=== PATIENT | female | born 1980 | race Caucasian/White ===

== ENCOUNTER → 2018-02-05 08:14 | Outpatient (CLI) | payer OTHER, SELFPAY ==
--- NOTE | 2018-02-05 08:18 | US_ITS ---
US Abdomen RUQ (limited) INDICATION: RUQ PAIN COMPARISON: None TECHNIQUE: Ultrasonographic grayscale and limited Doppler investigation of the right upper quadrant FINDINGS: The liver demonstrates normal echogenicity and measures 12 cm. There is no evidence of intra-or extrahepatic biliary ductal dilatation. The common bile duct measures 2.5 mm. The gallbladder is unremarkable without evidence of gallstones, gallbladder wall thickening, or pericholecystic fluid. The gallbladder wall measures 2 mm. Ultrasonographic Gonzalez sign is negative. The views of the pancreas are limited. The right kidney measures 10 cm in length and demonstrates mild fullness of the renal collecting system. US/Abdomen Limited IMPRESSION: Right renal pelviectasis. Negative gallbladder. at 0107 Reported and signed by: Sugar Carlos MD Electronically Signed: Sugar Carlos MD at 0:05 EDT Tel , Service support ,
--- NOTE | 2018-02-05 08:18 | NM_ITS ---
CLINICAL: 37-year-old female with reported history of right upper quadrant abdominal pain. RADIONUCLIDE HEPATOBILIARY SCINTIGRAPHY COMPARISON: Abdominal ultrasound report 02/05/2018 FINDINGS: Following the intravenous administration of 5.3 mCi of 99m Tc Mebrofenin, hepatobiliary images reveal: 1. Relatively prompt and homogeneous radiopharmaceutical concentration is noted by a normal sized liver. No parenchymal defects are identified. 2. Gallbladder activity is identified at 10 minutes post radiopharmaceutical administration. 3. Small intestinal tract is observed at 15 minutes following tracer injection. 4. Washout of the radiopharmaceutical by the hepatic parenchyma appears qualitatively normal. The patient was administered a fatty meal (8 ounces BOOST). The post fatty meal ingestion gallbladder ejection fraction calculated at 34 minutes following fatty meal administration was noted to be 54.0 % (normal greater than 30%). Duodenal-gastric reflux is demonstrated following the administration of the fatty meal. NM/Hepatobilliary Imaging IMPRESSION: 1. A gallbladder ejection fraction calculated to be greater than 30% following the administration of an ingested fatty meal makes the probability of functional hepatobiliary disease (gallbladder and/or sphincter of Oddi dyskinesia) and/or organic hepatobiliary disease (chronic acalculous cholecystitis and/or cystic duct syndrome) to be low. (Gwen and Bahman, J Nucl Med 43: 1603, 2002). 2. There is scintigraphic evidence of post fatty meal duodenal gastric reflux as defined above. Electronically Signed: Trey Fung DO at 11:07 EDT Tel , Service support ,
== END ==
PROVIDERS: Family Provider Student in an Organized Health Care Education/Training Program; PCP Student in an Organized Health Care Education/Training Program; Visit Provider Student in an Organized Health Care Education/Training Program
DX: R10.11 Right upper quadrant pain (principal)
CPT/HCPCS: 76705; 78226; A9537

== ENCOUNTER → 2018-03-27 08:05 | Outpatient (CLI) | payer OTHER, SELFPAY ==
--- NOTE | 2018-03-27 08:08 | CT_ITS ---
STUDY: CT ABDOMEN AND PELVIS WITHOUT CONTRAST REASON FOR EXAM: Female, 37 years old. Right upper quadrant pain radiating to right flank. History of kidney stone, section, uterine ablation, tubal ligation. RADIATION DOSAGE (If Supplied By Facility): CTDIvol = ( 7.25 ) mGy, DLP = ( 344.29 ) mGycm TECHNIQUE: Transaxial images were obtained from the dome of the diaphragm to the symphysis pubis without oral contrast, and without intravenous contrast. Sagittal and coronal images were reconstructed. Individualized dose optimization techniques were used for this CT. COMPARISON: CT abdomen and pelvis June 26, 2009 (the report for this study is not available for review at the time of this dictation); right upper quadrant ultrasound and HIDA scan February 05, 2018. FINDINGS: The visualized lung bases are unremarkable. The visualized portions of the heart are within normal limits. Normal liver. Portal vein diameter is 11 mm. Normal gallbladder and extrahepatic biliary system. Normal spleen. Normal pancreas. Normal bilateral adrenal glands. Normal right kidney. There are nonobstructing small stones in calyces of the lower pole of the left kidney. No hydronephrosis Normal visualized stomach. Normal small intestine. Normal colon. The appendix is visualized and appears normal. Normal abdominal aorta. Normal inferior vena cava. There are a few nonspecific lymph nodes in the periaortic retroperitoneum. Normal urinary bladder. Normal visualized uterus. Metal clips at the uterine cornu consistent with history of prior tubal ligation. Normal visualized adnexa. Normal abdominal wall. There are chronic bilateral L5 pars defects, L5 spina bifida occulta, and a slight L5-S1 spondylolisthesis. Mild irregularity of the L5-S1 vertebral endplates and subtle degenerative change in the disc space. CT/Abdomen/Pelvis without Cont IMPRESSION: 1. Nonobstructing stones in the lower pole of the left kidney. No hydronephrosis. 2. The bowel is unremarkable without signs of obstruction. The appendix is normal. 3. Prior bilateral tubal ligation. The uterus and ovaries are otherwise unremarkable. 4. Chronic bilateral L5 pars defects, mild degenerative changes at L5-S1, and early grade 1 L5-S1 spondylolisthesis. Electronically Signed: Abel Avendano MD at 19:41 EDT , Service support ,
== END ==
PROVIDERS: Family Provider Student in an Organized Health Care Education/Training Program; PCP Student in an Organized Health Care Education/Training Program; Visit Provider Student in an Organized Health Care Education/Training Program
DX: R10.11 Right upper quadrant pain (principal); R11.0 Nausea
CPT/HCPCS: 74176

== ENCOUNTER → 2018-04-04 09:53 | Outpatient (CLI) | payer OTHER, SELFPAY ==
--- NOTE | 2018-04-04 09:56 | ECHOD_ITS ---
Reason For Study: MITRAL VALVE DISORDER Procedure This was a 2D Doppler, Color Flow transthoracic echocardiogram. Exam performed in department. Left Ventricle Normal size and thickness. The estimated ejection fraction is 65 %. Normal diastology for age. No regional wall motion abnormalities noted. Right Ventricle Normal size and thickness. Normal systolic function. Atria Normal left atrium. Normal right atrium. Normal atrial septum. Mitral Valve The mitral valve is structurally normal. No prolapse or stenosis seen. Tricuspid Valve Normal tricuspid valve. Trivial tricuspid valve insufficiency. Right ventricular systolic pressure estimated to be 22 mmHg. Aortic Valve Normal aortic valve. Trisinus/trileaflet aortic valve. Pulmonic Valve Normal pulmonic valve. Great Vessels Normal aortic root. Normal arch. Normal inferior vena cava. Inferior vena cava collapse with sniff. Pericardium/Pleural No pericardial effusion. MMode/2D Measurements & Calculations LVIDd: 4.0 cm IVSd: 0.72 cm Ao root diam: 2.7 cm LVIDs: 2.3 cm LVPWd: 0.83 cm RVDd: 2.3 cm FS: 41.6 % LAV(MOD-bp): 29.2 ml EDV(MOD-sp4): 66.5 ml SV(MOD-sp4): 42.0 ml LAV(MOD-bp) Indexed: 18.4 ml/m2 ESV(MOD-sp4): 24.6 ml LAV(MOD-sp2): 31.9 ml EF(MOD-sp4): 63.1 % LAV(MOD-sp4): 27.4 ml LA A4 area: 12.1 cm2 RA A4 area: 9.3 cm2 Time Measurements MV dec time: 0.25 sec Doppler Measurements & Calculations MV E max gilberto: 83.7 cm/sec Lat Peak E' Gilberto: 15.5 cm/sec Med Peak E' Gilberto: 11.6 cm/sec MV A max gilberto: 65.3 cm/sec E/E' lat: 5.4 E/E' med: 7.2 MV E/A: 1.3 Ao V2 max: 123.7 cm/sec LV V1 max: 115.3 cm/sec PA V2 max: 123.0 cm/sec Ao max P.1 mmHg LV V1 max P.3 mmHg TR max gilberto: 206.5 cm/sec TR max P.1 mmHg Interpretation Summary The estimated ejection fraction is 65 %. Normal diastology for age. Trivial tricuspid valve insufficiency. Right ventricular systolic pressure estimated to be 22 mmHg. There is no comparison study available. Ordering Physician: To Valle Referring Physician: To Valle Performed By: Lisette Long RDCS
== END ==
PROVIDERS: Family Provider Student in an Organized Health Care Education/Training Program; PCP Student in an Organized Health Care Education/Training Program; Visit Provider Student in an Organized Health Care Education/Training Program
DX: I05.9 Rheumatic mitral valve disease, unspecified (principal)
CPT/HCPCS: 93306

== ENCOUNTER → 2018-04-30 16:14 | Outpatient (CLI) | payer OTHER, SELFPAY ==
--- NOTE | 2018-04-30 16:14 | DT_ITS ---
This patient was seen during an EMR downtime April 23, 2018 - April 30, 2018. This patient may have a combination of paper and electronic documentation or all paper documentation. All documentation is viewable within the e-chart portion of [facility] for each patient visit.
[2018-04-30 16:36] LABS: Color, Urine Yellow (Yellow); Glucose, Dipstick Normal (Normal); Ketone-Dipstick Negative (Negative); Leukocyte Esterase-Dipstick 25 /ul (Negative); Nitrite-Dipstick Negative (Negative); Occult Blood-Urine Negative /ul (Negative); Protein-Dipstick Negative (Negative); Urine Bilirubin Dipstick Negative (Negative); Urine Clarity Clear (Clear); Urine Urobilinogen Normal (Normal)
== END ==
PROVIDERS: Family Provider Student in an Organized Health Care Education/Training Program; PCP Student in an Organized Health Care Education/Training Program; Visit Provider Physician Assistant
DX: R30.0 Dysuria (principal)
CPT/HCPCS: 81002; 87086

== ENCOUNTER 2018-05-01 16:03 | Emergency (ER) | payer OTHER, SELFPAY ==
[2018-05-01 16:04] VITALS: BP 123/85; PULSE 97; RESP 18; TEMP 36.7; O2SAT 97; BMI 26.9
--- NOTE | 2018-05-01 16:23 | CT_ITS ---
STUDY: CT ABDOMEN AND PELVIS WITH CONTRAST REASON FOR EXAM: Female, 37 years old. Right-sided abdominal pain RADIATION DOSAGE (If Supplied By Facility): CTDIvol = ( 13.15 ) mGy, DLP = ( 632.86 ) mGycm TECHNIQUE: Transaxial images were obtained from the dome of the diaphragm to the symphysis pubis without oral contrast. 100 ml of Isovue 300 contrast was administered. Sagittal and coronal images were reconstructed. Individualized dose optimization techniques were used for this CT. COMPARISON: March 27, 2018 FINDINGS: There is minor atelectasis within the dependent portion of the lungs. The visualized portions of the heart are within normal limits. Normal liver. Normal gallbladder and extrahepatic biliary system. Normal spleen. Normal pancreas. Normal bilateral adrenal glands. Normal right kidney. There are 2 tiny nonobstructing calculi. No evidence for hydronephrosis or ureteral calculus. Normal visualized stomach. Normal small intestine. Normal colon. The appendix is visualized and appears normal. Normal abdominal aorta. Normal inferior vena cava. Normal retroperitoneum. Postop changes status post tubal ligation. Uterus is within the midline mildly depressing the dome of the bladder which is incompletely distended. There is a small right ovarian cyst and fluid in the cul-de-sac which may be due to recent ovulation. Normal abdominal wall. Normal osseous structures. CT/Abdomen/Pelvis WITH Contrast IMPRESSION: Left nephrolithiasis without evidence for hydronephrosis or ureteral calculus. Normal appendix Small right ovarian cyst with fluid in the cul-de-sac which may be on the basis of recent ovulation Status post bilateral tubal ligation. Electronically Signed: Zaki Ruth MD at 19:02 EDT , Service support ,
--- NOTE | 2018-05-01 16:24 | ED.VISSUMM ---
- ER Visit Summary Date of Service: 05/01/18 Chief Complaint: Abdominal pain History of Present Illness: The patient is a 37 F presenting with abdominal pain which started on Monday. She states this is suprapubic pain which is a burning sensation, continuous pain. She went to urgent care yesterday and was diagnosed with a UTI based on trace leukocytes in her urine. She was started on Macrobid. She denies dysuria, frequency, urgency. She denies back pain. She has history of IBS and kidney stones. She has had a decreased appetite today. Physical Examination: Vitals are stable. Patient is afebrile. Alert no acute distress. HEENT exam is unremarkable. Neck is supple. Lungs are clear and equal bilaterally. Heart is regular rate and rhythm. Abdomen is soft RLQ and suprapubic tenderness, no guarding or rebound. Extremities are unremarkable. Skin is warm and dry. No focal neurologic deficit. Remainder of exam is unremarkable. Emergency Department Course and Treatment: Patient given IV fluids, Zofran. CBC, chemistries unremarkable. Urinalysis is unremarkable. HCG negative. CT abdomen pelvis shows left nephrolithiasis without evidence for hydronephrosis or ureteral calculus. Normal appendix. Small right ovarian cyst with fluid in the cul-de-sac which may be on the basis of recent ovulation. Status post bilateral tubal ligation. She was given Toradol IV. Pelvic ultrasound shows small intrauterine fibroids. Small bilateral ovarian cysts 2 of which are complex on the right ovary possibly representing involuting cysts or intracystic hemorrhage. Patient is resting comfortably in the emergency department. She is advised to follow-up with Dr. Malachi Butcher her HALL SUPERVISOR. Advised return to ED for worsening complaints. Disposition: Discharge home Impression: Abdominal pain, ovarian cyst This note was generated with [email or web address] dictation software. It may contain incorrect words, spelling, and punctuation that were not noted in review of the chart prior to signing ED Disposition - Plan for ED Patient: Chief Complaint: Abd Pain Referrals: To Longoria DO [Primary Care Provider] -
--- NOTE | 2018-05-01 16:27 | ED.DCSUM_ITS ---
- ER Visit Summary Date of Service: 05/01/18 Chief Complaint: Abdominal pain History of Present Illness: The patient is a 37 F presenting with abdominal pain which started on Monday. She states this is suprapubic pain which is a burning sensation, continuous pain. She went to urgent care yesterday and was diagnosed with a UTI based on trace leukocytes in her urine. She was started on Macrobid. She denies dysuria, frequency, urgency. She denies back pain. She has history of IBS and kidney stones. She has had a decreased appetite today. Physical Examination: Vitals are stable. Patient is afebrile. Alert no acute distress. HEENT exam is unremarkable. Neck is supple. Lungs are clear and equal bilaterally. Heart is regular rate and rhythm. Abdomen is soft RLQ and suprapubic tenderness, no guarding or rebound. Extremities are unremarkable. Skin is warm and dry. No focal neurologic deficit. Remainder of exam is unremarkable. Emergency Department Course and Treatment: Patient given IV fluids, Zofran. CBC , chemistries unremarkable. Urinalysis is unremarkable. HCG negative. CT abdomen pelvis shows left nephrolithiasis without evidence for hydronephrosis or ureteral calculus. Normal appendix. Small right ovarian cyst with fluid in the cul-de-sac which may be on the basis of recent ovulation. Status post bilateral tubal ligation. She was given Toradol IV. Pelvic ultrasound shows small intrauterine fibroids. Small bilateral ovarian cysts 2 of which are complex on the right ovary possibly representing involuting cysts or intracystic hemorrhage. Patient is resting comfortably in the emergency department. She is advised to follow-up with Dr. Malachi Butcher her APPLIED STATISTICIAN. Advised return to ED for worsening complaints. Disposition: Discharge home Impression: Abdominal pain, ovarian cyst This note was generated with [employer]ib[employer] dictation software. It may contain incorrect words, spelling, and punctuation that were not noted in review of the chart prior to signing ED Disposition - Plan for ED Patient: Chief Complaint: Abd Pain Referrals: To Longoria DO [Primary Care Provider] -
[2018-05-01] MEDS: Ondansetron 4 MG/2 ML Vial IV (16:39)
[2018-05-01 16:47] LABS: Bacteria 0 SEEN /hpf (None Seen); Mucous, Urine 0 SEEN /hpf (<or=2+); Red Blood Cells-Urine 0 SEEN /hpf (0-5); Squamous Epithelial Cells - UA 0 SEEN /hpf (5-10); White Blood Cells 0 SEEN /hpf (0-5)
[2018-05-01 17:16] LABS: Color, Urine Yellow (Yellow); Glucose, Dipstick Normal (Normal); Ketone-Dipstick Negative (Negative); Leukocyte Esterase-Dipstick Negative /ul (Negative); Nitrite-Dipstick Negative (Negative); Occult Blood-Urine Negative /ul (Negative); Protein-Dipstick Negative (Negative); Specific Gravity, Urine 1.015 (1.002-1.030); Urine Bilirubin Dipstick Negative (Negative); Urine Clarity Sl. Cloudy (Clear); Urine Urobilinogen Normal (Normal)
[2018-05-01 17:18] LABS: ALB/GLOB Ratio 1.2 RATIO (0.9-2.4); AST(SGOT) 15 U/L (15-37); Alanine Aminotransfer ALT/SGPT 18 U/L (13-56); Albumin, Serum 4.2 g/dL (3.2-5.0); Alkaline Phosphatase 80 U/L (45-117); Anion Gap 3 (5-15); BUN 13 mg/dL (7-18); BUN/Creat Ratio 17.9 RATIO (10-20); Calcium,Total 8.8 mg/dL (8.5-10.1); Chloride 106 mmol/L (98-107); Creatinine, Serum 0.73 mg/dL (0.55-1.02); EST Glomerular Filtration Rate 94 mL/min (>60); Est Glom Filt Rate - Afr Amer 114 mL/min (>60); Globulin 3.4 g/dL (2.2-4.2); Glucose 86 mg/dL (74-106); Potassium 3.6 mmol/L (3.5-5.1); Protein, Total 7.6 g/dL (6.4-8.2); Sodium Level 138 mmol/L (136-145)
[2018-05-01 17:20] LABS: Internal QC Validated? YES +Cl - CLEAR BKGD; Pregnancy, Urine Negative Negative
[2018-05-01 17:26] LABS: Absolute Lymphocyte Count 2.23 X10^3/ul (0.83-4.51); Absolute Neutrophil Count 3.1 X10^3/uL (2.0-7.7); Basophil# 0.03 X10^3/uL; Basophil% 0.5 % (0-1); Eosinophil# 0.17 X10^3/uL; Eosinophils% 2.9 % (0-5); Hematocrit 39.5 % (37-47); Lymphocyte # 2.23 X10^3/ul (4.0); Lymphocyte % 37.5 % (19-41); Mean Corp Hgb Conc 32.9 g/gl (32-36); Mean Corpuscular Hgb 30.2 pg (27.0-32.0); Mean Corpuscular Volume 91.9 fL (81-99); Mean Platelet Vol. 11.5 fl (6.2-12.0); Monocyte# 0.44 X10^3/uL; Monocyte% 7.4 % (0-10); Neutrophil # 3.07 X10^3/uL (2.7-7.7); Neutrophil % 51.7 % (47-70); Platelet Count 216 K/mm3 (150-450); RBC Distribution Width CV 12.9 % (11.6-14.6); RBC Distribution Width SD 42.5 fl (35.1-43.9); White Blood Count 5.9 K/mm3 (4.4-11.0)
[2018-05-01 17:28] LABS: POSITIVE COUNT NO; POSITIVE DIFFERENTIAL NO; POSITIVE MORPHOLOGY NO
[2018-05-01 17:41] LABS: Amorphous Sediment 2+
[2018-05-01 18:03] VITALS: RESP 16
[2018-05-01] MEDS: Ketorolac 30 MG/ML Syringe IV (18:41)
--- NOTE | 2018-05-01 19:45 | US_ITS ---
STUDY: ULTRASOUND TRANSVAGINAL CLINICAL: Female, 37 years old. Lower pelvic pain TECHNIQUE: Transvaginal and transabdominal COMPARISON: CT scan on May 01, 2018 FINDINGS: Normal uterine size measuring 8.1 x 4.7 x 3.7 cm in maximal craniocaudal dimension. There are 2 fibroids measuring 1 x 0.8 x 0.7 cm and 0.7 x 0.8 x 0.5 cm Normal endometrial thickness measuring 13 mm. There are no endometrial masses, and there is no fluid in the endometrial cavity. Normal uterine cervix. Normal right ovary, measuring 3.3 x 2.8 x 2.1 cm. There is a simple cyst measuring 1.7 x 1.8 x 1.4 cm. There is a small complex cyst measuring 1.4 x 1.4 x 1 cm and 1.1 x 1.1 x 0.8 cm Normal left ovary, measuring 2.2 x 1.8 x 1.4 cm. Small cyst measuring 1 x 1 x 0.8 cm There is no free fluid in the pelvis. Polycystic ovary disease: No. US/Transvaginal Non- IMPRESSION: Small intrauterine fibroids. Small bilateral ovarian cysts 2 of which are complex on the right ovary possibly representing involuting cysts or intracystic hemorrhage. Electronically Signed: Zaki Ruth MD at 20:47 EDT , Service support ,
[2018-05-01 20:25] VITALS: BP 125/77; PULSE 65; RESP 14; O2SAT 98
--- NOTE | 2018-05-01 21:01 | ED.DEP ---
ED Disposition - Plan for ED Patient: Chief Complaint: Abd Pain Instructions: ED Cyst Ovarian Referrals: To Longoria DO [Primary Care Provider] - Brianna Garrison MD [STAFF PHYSICIAN] -
[2018-05-01 21:24] VITALS: BP 109/75; RESP 17
--- NOTE | 2018-05-01 21:25 | ED.RN ---
IV DC'ED, CATHETER INTACT, SMALL GAUZE DRESSING PLACED. DISCHARGE INSTRUCTIONS GIVEN TO AND REVIEWED WITH PATIENT, PATIENT DENIES QUESTIONS OR CONCERNS AND VOICES UNDERSTANDING OF DISCHARGE INSTRUCTIONS. PT AMBULATES OUT OF ROOM WITHOUT DIFFICULTY.
== END 2018-05-01 21:26 | disposition home or self-care (01) ==
LOC: ED 16:27
PROVIDERS: Emergency Provider Emergency Medicine; Family Provider Student in an Organized Health Care Education/Training Program; PCP Student in an Organized Health Care Education/Training Program
DX: R10.30 Lower abdominal pain, unspecified (principal); N83.202 Unspecified ovarian cyst, left side; N83.201 Unspecified ovarian cyst, right side; N20.0 Calculus of kidney; D25.9 Leiomyoma of uterus, unspecified; K58.9 Irritable bowel syndrome, unspecified; K21.9 Gastro-esophageal reflux disease without esophagitis; Z87.440 Personal history of urinary (tract) infections; Z87.442 Personal history of urinary calculi; Z79.899 Other long term (current) drug therapy
CPT/HCPCS: 74177; 76830; 80053; 81001; 81025; 85025; 93976; 96361; 96374; 96375; 99283; J7040; Q9967; A4216; J2405

== ENCOUNTER → 2018-08-29 12:09 | Outpatient (CLI) | payer OTHER, SELFPAY ==
--- NOTE | 2018-08-29 12:14 | US_ITS ---
STUDY: ULTRASOUND OF THE FEMALE PELVIS - COMPLETE REASON FOR EXAM: Female, 37 years old. Pelvic pain LMP: 08/20/2018 TECHNIQUE: Transabdominal and Transvaginal TECHNICAL QUALITY: Adequate. COMPARISON: None. FINDINGS: The uterus is anteverted and is in a midline position. The uterus measures 8.1 x 4.7 x 3.8 cm. Normal uterine cervix. The endometrium measures 4.6 mm in thickness, and is hyperechoic. There is no demonstrated endometrial mass. There is a fibroid measuring 8 mm. I.U.D. - The patient does not have an I.U.D. The right ovary is visualized. The right ovary measures 2.6 x 1.6 x 1.2 cm. There is no right ovarian cyst or ovarian mass. There is no visualized right adnexal mass or complex lesion. There is normal arterial and normal venous vascularity. The left ovary is visualized. The left ovary measures 2.2 x 1.9 x 1.3 cm. There is no left ovarian cyst or ovarian mass. There is no visualized left adnexal mass or complex lesion. There is normal arterial and normal venous vascularity. There is minimal fluid in the cul-de-sac. US/Transvaginal Non- IMPRESSION: There is an 8mm uterine fibroid. There is NO evidence of ovarian torsion or mass. Electronically Signed: Shane Patel MD at 7:20 EDT , Service support ,
--- NOTE | 2018-08-29 12:14 | US_ITS ---
STUDY: ULTRASOUND OF THE FEMALE PELVIS - COMPLETE REASON FOR EXAM: Female, 37 years old. Pelvic pain LMP: 08/20/2018 TECHNIQUE: Transabdominal and Transvaginal TECHNICAL QUALITY: Adequate. COMPARISON: None. FINDINGS: The uterus is anteverted and is in a midline position. The uterus measures 8.1 x 4.7 x 3.8 cm. Normal uterine cervix. The endometrium measures 4.6 mm in thickness, and is hyperechoic. There is no demonstrated endometrial mass. There is a fibroid measuring 8 mm. I.U.D. - The patient does not have an I.U.D. The right ovary is visualized. The right ovary measures 2.6 x 1.6 x 1.2 cm. There is no right ovarian cyst or ovarian mass. There is no visualized right adnexal mass or complex lesion. There is normal arterial and normal venous vascularity. The left ovary is visualized. The left ovary measures 2.2 x 1.9 x 1.3 cm. There is no left ovarian cyst or ovarian mass. There is no visualized left adnexal mass or complex lesion. There is normal arterial and normal venous vascularity. There is minimal fluid in the cul-de-sac. US/Pelvic (Non ) IMPRESSION: There is an 8mm uterine fibroid. There is NO evidence of ovarian torsion or mass. Electronically Signed: Shane Patel MD at 7:20 EDT , Service support ,
== END ==
PROVIDERS: Family Provider Student in an Organized Health Care Education/Training Program; PCP Student in an Organized Health Care Education/Training Program; Referring Provider Nurse Practitioner Women's Health; Visit Provider Nurse Practitioner Women's Health
DX: R10.2 Pelvic and perineal pain (principal); N83.209 Unspecified ovarian cyst, unspecified side
CPT/HCPCS: 76830; 76856; 93976

== ENCOUNTER → 2018-09-13 07:16 | Outpatient (CLI) | payer OTHER, SELFPAY ==
--- NOTE | 2018-09-13 07:18 | BI_ITS ---
MAMMOGRAPHY - BILATERAL SCREENING REASON FOR EXAM: Female, 37 years old. Routine annual screening examination. PERTINENT HISTORY: Non-contributory. Prior left needle biopsy. TECHNIQUE: Digital bilateral breast jackie (3D mammographic acquisition) in the CC and MLO projections. 2-D mediolateral oblique (MLO) and craniocaudad (CC) views of both breasts were obtained. CAD: Full Field Digital Mammography with Computer Added Detection was performed. COMPARISON: Comparison is made with prior study dated September 11, 2017 and September 14, 2012. FINDINGS: Breast Composition: There are scattered areas of fibroglandular density. There are no dominant masses or suspicious calcifications. A tissue clip marker is seen in the retroareolar region of the left breast. Stable appearance of the small bilateral axillary lymph nodes. No other significant abnormalities are identified. There has been no significant change since the prior study. BI/SCREENING MAMM (CAD), BILAT IMPRESSION: Stable bilateral screening mammogram. Yearly follow-up mammogram recommended. (A) ASSESSMENT CATEGORY: BIRADS Category 2: Benign. A letter regarding these results will be sent to the patient by the facility within 30 days. Approximately 10% of breast cancers are not detected by mammography. A normal mammogram should not delay biopsy of a clinically suspicious abnormality. [id number] Electronically Signed: Nabil Talley MD at 8:34 EDT Tel [phone], Service support ,
== END ==
PROVIDERS: Family Provider Student in an Organized Health Care Education/Training Program; PCP Student in an Organized Health Care Education/Training Program; Visit Provider Obstetrics & Gynecology
DX: Z12.31 Encounter for screening mammogram for malignant neoplasm of breast (principal)
CPT/HCPCS: 77063; 77067

== ENCOUNTER → 2019-06-11 | Outpatient (CLI) | payer OTHER, SELFPAY ==
[2019-05-15 13:56] VITALS: BMI 26.9
[2019-06-11 09:13] LABS: Hemoglobin A1c 5.1 % (4.2-6.3)
[2019-06-11 09:22] LABS: ALB/GLOB Ratio 1.3 RATIO (0.9-2.4); AST(SGOT) 16 U/L (15-37); Alanine Aminotransfer ALT/SGPT 20 U/L (13-56); Albumin, Serum 4.3 g/dL (3.2-5.0); Alkaline Phosphatase 84 U/L (45-117); Anion Gap 9 (5-15); BUN 17 mg/dL (7-18); BUN/Creat Ratio 20.5 RATIO (10-20); Chloride 104 mmol/L (98-107); Cholesterol 181 mg/dL (200); Creatinine, Serum 0.83 mg/dL (0.55-1.02); EST Glomerular Filtration Rate 81 mL/min (>60); Est Glom Filt Rate - Afr Amer 97 mL/min (>60); Globulin 3.3 g/dL (2.2-4.2); Glucose 83 mg/dL (74-106); High Density Lipoprotein 57 mg/dL; Potassium 3.5 mmol/L (3.5-5.1); Protein, Total 7.6 g/dL (6.4-8.2); Sodium Level 140 mmol/L (136-145); T4 Free Direct 1.32 ng/dL (0.76-1.46); Thyroid Stim Hormone (TSH) 0.99 uIU/mL (0.358-3.74); Triglycerides 83 mg/dL; Very Low Density Lipoprotein 17 mg/dL (5-40)
[2019-06-11 10:16] LABS: T3 Total - Triiodothyronine 0.96 ng/mL (0.6-1.81); Vitamin D,25 Hydroxy 28.2 ng/mL (29.95-100.01)
== END | disposition home or self-care (01) ==
LOC: LAB 08:16
PROVIDERS: Family Provider Student in an Organized Health Care Education/Training Program; PCP Student in an Organized Health Care Education/Training Program; Referring Provider Registered Nurse; Visit Provider Registered Nurse
DX: Z00.00 Encounter for general adult medical examination without abnormal findings (principal)
CPT/HCPCS: 36415; 80053; 80061; 82306; 83036; 84439; 84443; 84480

== ENCOUNTER 2019-09-02 06:57 | Emergency (ER) | payer OTHER, SELFPAY ==
[2019-05-15 13:56] VITALS: BMI 26.9
[2019-09-02 06:58] VITALS: BP 129/73; PULSE 97; RESP 18; TEMP 37.3; O2SAT 99; BMI 27.5
--- NOTE | 2019-09-02 07:07 | CT_ITS ---
STUDY: CT ABDOMEN AND PELVIS WITH CONTRAST REASON FOR EXAM: Female, 38 years old. Right lower quadrant pain. Tubal ligation. History of stones. Ovarian cyst. RADIATION DOSAGE (If Supplied By Facility): CTDIvol = ( 14.12 ) mGy, DLP = ( 620.39 ) mGycm TECHNIQUE: Transaxial images were obtained from the dome of the diaphragm to the symphysis pubis without oral contrast. IV Isovue 300 100mL was administered. Sagittal and coronal images were reconstructed. Individualized dose optimization techniques were used for this CT. COMPARISON: May 01, 2018. FINDINGS: Lung bases: No acute process. Heart: Unremarkable. Liver: Punctate hepatic hypodensities low attenuation region too small to characterize (axial images 33 and 34 series 2). Portal vein patent. Gallbladder/biliary ducts: Unremarkable. Pancreas: Unremarkable. Spleen: Unremarkable. Adrenal glands: Unremarkable. Kidneys/ureters/bladder: Stable bilateral renal hypodense lesions (axial image 42 series 2) measuring 1.3 cm. Punctate nonobstructing left renal stones. Nondilated ureters. Normal urinary bladder. Uterus/adnexa/prostate: Tubal ligation. Minimally distended endometrial canal. Small left hyperdense cystic adnexa measuring 2.1 cm (axial image 86 series 2). Large bowel/small bowel: Mild constipation. No acute small bowel or large bowel process. Appendix: None visualized. No secondary signs of appendicitis. Gastroesophageal junction/stomach: Unremarkable. Retroperitoneum/lymph nodes: No intra-abdominal free air. No ascites. No pathologically enlarged lymph nodes. Vascular: Unremarkable. Osseous structures: L5 bilateral pars defects. Minimal grade 1 spondylolisthesis at L5-S1. Degenerative changes. No acute process. Subcutaneous/soft tissues: Small fat-containing umbilical hernia. Mild rectus diastases. No acute process. CT/Abdomen/Pelvis W IV Cont ONLY IMPRESSION: No acute intraabdominal/pelvic findings Small left hyperdense cystic adnexa (statistically hemorrhagic/corpus luteal cyst) Stable bilateral hypodense renal lesions (statistically cysts; follow-up nonemergent ultrasound) Stable chronic/nonemergent findings, as above Electronically Signed: Kendrick Ceja DO at 8:36 EDT Tel , Service support ,
--- NOTE | 2019-09-02 07:08 | ED.VISSUMM ---
- ER Visit Summary Date of Service: 09/02/19 Chief Complaint: Right lower quadrant abdominal pain History of Present Illness: The patient is a 38 F who has right lower quadrant abdominal pain. Is been ongoing for 10 days. She feels like it is a vibration in the right lower quadrant. Sitting makes it worse. She is taken nothing for this at home. She has a history of fibroid uterus, ovarian cyst and kidney stones but this feels different. She has had a uterine ablation and C-sections previously. Denies any fevers. No dysuria, hematuria or frequency. Has nausea or vomiting. Physical Examination: Vital signs reviewed. HEENT exam unremarkable. Heart is regular rate and rhythm without murmurs. Lungs are clear to auscultation. Abdomen is soft and is tender in the lower portion of the right lower quadrant. There is no pelvic tenderness. No guarding or rebound tenderness. Extremities reveal no edema. Skin exam normal. Neurologic exam normal. Test Results: Laboratory studies are normal. CAT scan of the abdomen pelvis reveals a hyperdense cystic lesion on the left which is likely hemorrhagic or corpus luteal cyst. Otherwise nothing else acute Emergency Department Course and Treatment: Patient initially declined pain medications but then requested Toradol. She was given this. Her labs and imaging studies reveal nothing acute. I am unclear as to why is causing her pain. I feel she is safe for discharge to follow-up with her HARDWOOD FALLER and her PCP. She does have Bentyl that she can take at home. Treatment Plan: [] Disposition: Discharge Impression: Abdominal pain This note was generated with [email or web address] dictation software. It may contain incorrect words, spelling, and punctuation that were not noted in review of the chart prior to signing ED Disposition - Plan for ED Patient: Referrals: To Longoria DO [Primary Care Provider] -
[2019-09-02 07:38] LABS: Mucous, Urine 0 SEEN /hpf (<or=2+); Red Blood Cells-Urine 0 SEEN /hpf (0-5); White Blood Cells 0 SEEN /hpf (0-5)
[2019-09-02 07:41] LABS: Absolute Lymphocyte Count 2.19 X10^3/uL (0.83-4.51); Absolute Neutrophil Count 3.9 X10^3/uL (2.0-7.7); Basophil# 0.05 X10^3/uL; Basophil% 0.7 % (0-1); Eosinophil# 0.19 X10^3/uL; Eosinophils% 2.8 % (0-5); Hematocrit 42.2 % (37-47); Hemoglobin 13.4 g/dL (12.0-15.0); Lymphocyte # 2.19 X10^3/ul (4.0); Lymphocyte % 31.9 % (19-41); Mean Corp Hgb Conc 31.8 g/dL (32-36); Mean Corpuscular Hgb 29.2 pg (27.0-32.0); Mean Corpuscular Volume 91.9 fL (81-99); Monocyte# 0.51 X10^3/uL; Monocyte% 7.4 % (0-10); NRBC Flagged by Analyzer 0 % (0-5); Neutrophil # 3.91 X10^3/uL (2.7-7.7); Neutrophil % 56.9 % (47-70); Platelet Count 222 K/mm3 (150-450); RBC Distribution Width CV 13.2 % (11.6-14.6); RBC Distribution Width SD 44.8 fl (35.1-43.9); Red Blood Count 4.59 M/mm3 (4.2-5.4); White Blood Count 6.9 K/mm3 (4.4-11.0)
[2019-09-02 07:42] LABS: Color, Urine Yellow (Yellow); Glucose, Dipstick Normal (Normal); Ketone-Dipstick Negative (Negative); Leukocyte Esterase-Dipstick Negative /ul (Negative); Nitrite-Dipstick Negative (Negative); Occult Blood-Urine Negative /ul (Negative); Protein-Dipstick Negative (Negative); Urine Bilirubin Dipstick Negative (Negative); Urine Clarity Sl. Cloudy (Clear); Urine Urobilinogen Normal (Normal)
[2019-09-02 07:45] LABS: Internal QC Validated? YES +Cl - CLEAR BKGD; Pregnancy, Urine Negative Negative
[2019-09-02 07:49] LABS: Bacteria 1+ /hpf (None Seen); Squamous Epithelial Cells - UA 0-5 SEEN /hpf (5-10)
[2019-09-02 07:58] LABS: ALB/GLOB Ratio 1.3 RATIO (0.9-2.4); AST(SGOT) 15 U/L (15-37); Alanine Aminotransfer ALT/SGPT 21 U/L (13-56); Albumin, Serum 4.4 g/dL (3.2-5.0); Alkaline Phosphatase 92 U/L (45-117); Anion Gap 6 (5-15); BUN 17 mg/dL (7-18); BUN/Creat Ratio 19.9 RATIO (10-20); Calcium,Total 8.9 mg/dL (8.5-10.1); Chloride 108 mmol/L (98-107); Creatinine, Serum 0.85 mg/dL (0.55-1.02); EST Glomerular Filtration Rate 78 mL/min (>60); Est Glom Filt Rate - Afr Amer 94 mL/min (>60); Estimated Creatinine Clearance 63.19 ml/min; Globulin 3.3 g/dL (2.2-4.2); Glucose 87 mg/dL (74-106); Potassium 3.6 mmol/L (3.5-5.1); Protein, Total 7.7 g/dL (6.4-8.2); Sodium Level 140 mmol/L (136-145)
[2019-09-02] MEDS: Ketorolac 30 MG/ML Syringe IV (08:18)
--- NOTE | 2019-09-02 08:40 | ED.DEP ---
ED Disposition - Plan for ED Patient: Disposition: Home or Assisted Living Instructions: ABDOMINAL PAIN, Unknown Cause, (Female) Referrals: To Longoria DO [Primary Care Provider] -
== END 2019-09-02 08:52 | disposition home or self-care (01) ==
PROVIDERS: Emergency Provider Emergency Medicine; Family Provider Student in an Organized Health Care Education/Training Program; PCP Student in an Organized Health Care Education/Training Program
DX: R10.31 Right lower quadrant pain (principal); N83.8 Other noninflammatory disorders of ovary, fallopian tube and broad ligament; D25.9 Leiomyoma of uterus, unspecified; N83.209 Unspecified ovarian cyst, unspecified side; Z87.442 Personal history of urinary calculi
CPT/HCPCS: 74177; 80053; 81001; 81025; 85025; 96374; 99283; Q9967; A4216

== ENCOUNTER → 2019-09-16 15:49 | Outpatient (CLI) | payer OTHER, SELFPAY ==
[2019-09-02 06:58] VITALS: BMI 27.5
--- NOTE | 2019-09-16 15:51 | BI_ITS ---
MAMMOGRAPHY - BILATERAL SCREENING REASON FOR EXAM: Female, 38 years old. Routine annual screening examination. PERTINENT HISTORY: Grandmother with breast cancer. Prior left breast biopsy. TECHNIQUE: Digital bilateral breast andreas (3D mammographic acquisition) in the CC and MLO projections. 2-D mediolateral oblique (MLO) and craniocaudad (CC) views of both breasts were obtained. CAD: Full Field Digital Mammography with Computer Added Detection was performed. COMPARISON: Comparison is made with prior study dated September 13, 2018 and September 11, 2017. FINDINGS: Breast Composition: The breasts are heterogeneously dense, which may obscure small masses. There are no dominant masses or suspicious calcifications. A tissue clip marker is once again seen in the retroareolar region of the left breast within a small nodular density presently measuring 8.9 mm. Stable appearance of the bilateral axillary lymph nodes. No other significant abnormalities are identified. There has been no significant change since the prior study. BI/SCREEN MAMM (CAD) W/ANDREAS BILAT IMPRESSION: Stable bilateral screening mammogram. Yearly follow-up mammogram recommended. (A) ASSESSMENT CATEGORY: BIRADS Category 2: Benign. A letter regarding these results will be sent to the patient by the facility within 30 days. Approximately 10% of breast cancers are not detected by mammography. A normal mammogram should not delay biopsy of a clinically suspicious abnormality. [id number] Electronically Signed: Nabil Talley, at 8:45 EDT , Service support ,
== END ==
PROVIDERS: Family Provider Student in an Organized Health Care Education/Training Program; PCP Student in an Organized Health Care Education/Training Program; Referring Provider Nurse Practitioner Women's Health; Visit Provider Nurse Practitioner Women's Health
DX: Z12.31 Encounter for screening mammogram for malignant neoplasm of breast (principal)
CPT/HCPCS: 77063; 77067

== ENCOUNTER → 2019-10-15 16:09 | Outpatient (CLI) | payer OTHER, SELFPAY | PROVIDERS: Family Provider Student in an Organized Health Care Education/Training Program; PCP Student in an Organized Health Care Education/Training Program; Referring Provider Otolaryngology Otolaryngology/Facial Plastic Surgery; Visit Provider Otolaryngology Otolaryngology/Facial Plastic Surgery | DX: J32.9 Chronic sinusitis, unspecified (principal) | CPT/HCPCS: 87070; 87077; 87186; 87205 ==

== ENCOUNTER → 2019-11-14 13:45 | Outpatient (CLI) | payer OTHER, SELFPAY ==
--- NOTE | 2019-11-14 13:49 | US_ITS ---
STUDY: RENAL ULTRASOUND - COMPLETE REASON FOR EXAM: Female, 39 years old. Right lower quadrant pain. TECHNIQUE: Ultrasound evaluation of the kidneys was performed with real-time and static cotter-scale imaging. COMPARISON: CT September 02, 2019 FINDINGS: RIGHT KIDNEY: Normal location of the right kidney, which is normal in size. The right kidney measures 9.5 cm. There is a normal cortex of the right kidney. The renal cortex measures 1.2 cm. There is 1.0 cm cyst. There are no right renal calculi. There is no right hydronephrosis. DISTAL RIGHT URETER: There is non-visualization of the distal right ureter. There is no demonstrated right ureterovesical junction calculus. There is no demonstrated right ureteral jet. LEFT KIDNEY: Normal location of the left kidney, which is normal in size. The left kidney measures 10.4 cm. There is a normal cortex of the left kidney. The renal cortex measures 1.2 cm. There is 1.5 cm cyst. There are no left renal calculi. There is no left hydronephrosis. DISTAL LEFT URETER: There is non-visualization of the distal left ureter. There is no demonstrated left ureterovesical junction calculus. There is no demonstrated left ureteral jet. BLADDER: The distended urinary bladder has a volume of 330 ml. There is a normal wall thickness of the distended urinary bladder. There is no demonstrated mass within the urinary bladder. There are no demonstrated bladder calculi. US/Kidney and Bladder IMPRESSION: Small renal cysts. No hydronephrosis. Electronically Signed: Stew Doyle MD at 16:18 EST , Service support ,
--- NOTE | 2019-11-14 13:49 | US_ITS ---
STUDY: ULTRASOUND OF THE FEMALE PELVIS - COMPLETE REASON FOR EXAM: Female, 39 years old. PELVIC PAIN WORSE ON RIGHT LMP: October 26, 2019 TECHNIQUE: Transabdominal and Transvaginal TECHNICAL QUALITY: Adequate. COMPARISON: August 29, 2018 FINDINGS: The uterus is anteverted and is in a midline position. The uterus measures 8.9 x 4.4 x 4.1 cm. There is a Nabothian cyst of the cervix. The endometrium measures 6 mm in thickness, and is heterogeneous (striated). There is no demonstrated endometrial mass. There is no demonstrated myometrial mass. I.U.D. - The patient does not have an I.U.D. The right ovary is visualized. The right ovary measures 2.9 x 2.8 x 2.0 cm. There are multiple follicles of the right ovary without a dominant cyst. There is no visualized right adnexal mass or complex lesion. There is normal arterial and normal venous vascularity. The left ovary is visualized. The left ovary measures 2.6 x 1.8 x 1.5 cm. There is no left ovarian cyst or ovarian mass. There is no visualized left adnexal mass or complex lesion. There is normal arterial and normal venous vascularity. There is no fluid in the cul-de-sac. The pre void volume of the bladder was 361 ml. The post void volume of the bladder was 0 ml. US/Pelvic (Non ) IMPRESSION: Normal female pelvis. Adnexal follicles. Electronically Signed: Stew Doyle MD at 16:26 EST , Service support ,
--- NOTE | 2019-11-14 13:50 | US_ITS ---
STUDY: ULTRASOUND OF THE FEMALE PELVIS - COMPLETE REASON FOR EXAM: Female, 39 years old. PELVIC PAIN WORSE ON RIGHT LMP: October 26, 2019 TECHNIQUE: Transabdominal and Transvaginal TECHNICAL QUALITY: Adequate. COMPARISON: August 29, 2018 FINDINGS: The uterus is anteverted and is in a midline position. The uterus measures 8.9 x 4.4 x 4.1 cm. There is a Nabothian cyst of the cervix. The endometrium measures 6 mm in thickness, and is heterogeneous (striated). There is no demonstrated endometrial mass. There is no demonstrated myometrial mass. I.U.D. - The patient does not have an I.U.D. The right ovary is visualized. The right ovary measures 2.9 x 2.8 x 2.0 cm. There are multiple follicles of the right ovary without a dominant cyst. There is no visualized right adnexal mass or complex lesion. There is normal arterial and normal venous vascularity. The left ovary is visualized. The left ovary measures 2.6 x 1.8 x 1.5 cm. There is no left ovarian cyst or ovarian mass. There is no visualized left adnexal mass or complex lesion. There is normal arterial and normal venous vascularity. There is no fluid in the cul-de-sac. The pre void volume of the bladder was 361 ml. The post void volume of the bladder was 0 ml. US/Transvaginal Non- IMPRESSION: Normal female pelvis. Adnexal follicles. Electronically Signed: Stew Doyle MD at 16:23 EST , Service support ,
== END ==
PROVIDERS: Family Provider Student in an Organized Health Care Education/Training Program; PCP Student in an Organized Health Care Education/Training Program; Referring Provider Registered Nurse; Visit Provider Registered Nurse
DX: N28.1 Cyst of kidney, acquired (principal); N94.9 Unspecified condition associated with female genital organs and menstrual cycle; R10.9 Unspecified abdominal pain
CPT/HCPCS: 76770; 76830; 76856; 93976

== ENCOUNTER 2020-03-21 11:07 | Emergency (ER) | payer OTHER, SELFPAY ==
[2020-02-10 16:14] VITALS: BMI 27.5
[2020-03-21 11:07] VITALS: BP 149/91; PULSE 124; RESP 17; TEMP 38.1; O2SAT 98; BMI 28.5
--- NOTE | 2020-03-21 11:17 | ED.RN ---
pt straight back room 8.
--- NOTE | 2020-03-21 11:27 | RAD_ITS ---
STUDY: X-RAY CHEST REASON FOR EXAM: Female, 39 years old. Positive covid test, cough TECHNIQUE: Frontal view COMPARISON: August 15, 2017 FINDINGS: The lungs are expanded. There is a right basilar lateral infiltrate. Normal size heart. Normal mediastinum and beatris. Normal visualized pulmonary arteries. Normal visualized aortic arch and descending thoracic aorta. Normal visualized thoracic spine. Normal visualized ribs, clavicles, and shoulders. There is no demonstrated abnormality of the visualized soft tissue structures of the upper abdomen. RAD/Chest 1 View (Portable) IMPRESSION: There is a right basilar lateral infiltrate. Electronically Signed: Narinder Yanez DO at 12:09 EDT Tel [phone], Service support ,
--- NOTE | 2020-03-21 11:27 | EKG12_ITS ---
Test Reason : SOB Blood Pressure : / mmHG Vent. Rate : 128 BPM Atrial Rate : 128 BPM P-R Int : 124 ms QRS Dur : 084 ms QT Int : 298 ms P-R-T Axes : 035 057 009 degrees QTc Int : 435 ms Sinus tachycardia Otherwise normal ECG Confirmed by LAURA JORDAN, BEKA ([id number]), film and video editor LILIYA MARES ([id number]) on 03/24/2020 10:52:53 AM Referred By: MIKAYLA/DEMOND Confirmed By:BEKA SANCHEZ MD
--- NOTE | 2020-03-21 11:28 | ED.VIS.GEN ---
History of Present Illness Chief Complaint: Shortness of Breath Informant: Patient Onset: Days - 4 days Context: Gradual Onset Current Severity: Moderate Maximum Severity: Moderate Narrative: Patient presents with 4-day history of fever, cough, body aches. She had a Covid test sent on and received a phone call today that it is positive. She presents secondary to increased shortness of breath and cough. She does have a history of asthma but has not noted a lot of wheezing. She has lost smell and taste. She states she is trying to drink but not really eating anything. - Past Medical History (1) Asthma Status: Chronic (2) Kidney stones Status: Resolved Past Medical History - Allergies and Home Meds Allergies/Adverse Reactions: Allergies cephalexin monohydrate [From Keflex] Allergy (Verified 03/21/20 11:13) Rash clarithromycin [From Biaxin] Allergy (Verified 03/21/20 11:13) Rash metronidazole [From Flagyl] Allergy (Verified 03/21/20 11:13) Rash minocycline Allergy (Verified 03/21/20 11:13) Rash Penicillins Allergy (Verified 03/21/20 11:13) VISHNU MCCALL citalopram hydrobromide [From Celexa] Adverse Reaction (Verified 03/21/20 11:13) Nausea/Vom/Diarrhea ENTEX Adverse Reaction (Uncoded 03/21/20 11:13) TACHYCARDIA Primary Care Physician: To Longoria DO [Primary Care Provider] - Prior records reviewed: Yes Lives: With Family Smoking Status: Never smoker Review of Systems General: Reports: Chills, Fever Eyes: Denies: Visual changes - bilaterally ENT: Reports: - - Decreased smell and taste Cardiovascular: Reports: Chest pain - Chest pressure after coughing fits Respiratory: Reports: Dyspnea, Cough Gastrointestinal: Denies: Abdominal pain, Nausea, Vomiting Musculoskeletal: Reports: Myalgias. Denies: Swelling Skin: Denies: Rash Neurological: Denies: Headache Hematologic: Denies: Easy bruising, Easy bleeding Allergy: Denies: Uticaria Physical Exam Vital Signs/Narrative: Vital Signs Temp Pulse Resp BP Pulse Ox 03/21/20 11:07 100.5 F H 124 H 17 149/91 H 98 Inital Vital Signs reviewed: Yes General: Well nourished, Well developed Head: Normocephalic ENT: Dry mucous membranes Neck: Supple Cardiovascular: Tachycardia Respiratory: No distress, CTA bilaterally Abdomen: Soft, Nontender, Hypoactive bowel sounds Extremities: Nontender Skin: Normal color Neurological: Alert, Oriented x3 Psychological: Normal affect Diagnostic/Tx/Re-eval Impressions Chest X-Ray 03/21/20 11:27 IMPRESSION: There is a right basilar lateral infiltrate. Electronically Signed: Narinder Yanez at 12:09 EDT Tel [phone], Service support , 03/21/20 11:27 Chest 1 View (Portable) [RAD] Stat Laboratory Results 03/21/20 03/21/20 11:20 11:20 WBC 3.1 L RBC 4.51 Hgb 13.2 Hct 40.5 MCV 89.8 MCH 29.3 MCHC 32.6 RDW Std Deviation 43.0 RDW Coeff of Ilya 13.0 Plt Count 93 L MPV 12.2 H Immature Gran % (Auto) 0.300 Neut % (Auto) 69.7 Lymph % (Auto) 23.9 [place] % (Auto) 5.2 Eos % (Auto) 0.6 Baso % (Auto) 0.3 Absolute Neuts (auto) 2.2 Absolute Lymphs (auto) 0.74 L Nucleated RBC % 0 Platelet Estimate MOD DEC Sodium 138 Potassium 3.1 L Chloride 107 Carbon Dioxide 24.0 Anion Gap 7 BUN 14 Creatinine 0.84 Estim Creat Clear Calc 63.31 Est GFR (MDRD) Af Amer 96 Est GFR (MDRD) Non-Af 79 BUN/Creatinine Ratio 16.7 Glucose 113 H Calcium 8.7 - EKG Initial EKG Interpretation: Sinus Tachycardia - Sinus tach at 128 - Medical Decision Making Patient was given IV fluids at 100 cc/h. Patient was given p.o. Tylenol and albuterol MDI. On repeat evaluation heart rate is 106. Pulse ox is 96 to 98% on room air. Respiratory rate is around 20. I did discuss the case with infectious disease. They are not currently recommending Plaquenil or Zithromax. They are recommending just supportive care at home. Patient will be given prescription for Hycodan cough syrup. ED Disposition - Plan for ED Patient: Disposition: Home or Assisted Living Diagnosis: COVID-19 Instructions: ED Viral Syndrome Prescriptions: Hydrocodone Bit/Homatropine [Hycodan Syrup] 5 ml PO Q4H PRN PRN #100 mls PRN Reason: Cough Referrals: To Longoria DO [Primary Care Provider] -
[2020-03-21] MEDS: 0.9% Normal Saline 1,000 ML 100 ML IV (11:30)
[2020-03-21] MEDS: Acetaminophen 500 MG Tablet 1000 MG PO (11:31)
[2020-03-21 11:39] LABS: Absolute Lymphocyte Count 0.74 X10^3/uL (0.83-4.51); Absolute Neutrophil Count 2.2 X10^3/uL (2.0-7.7); Basophil# 0.01 X10^3/uL; Basophil% 0.3 % (0-1); Eosinophil# 0.02 X10^3/uL; Eosinophils% 0.6 % (0-5); Hematocrit 40.5 % (37-47); Hemoglobin 13.2 g/dL (12.0-15.0); Lymphocyte # 0.74 X10^3/ul (4.0); Lymphocyte % 23.9 % (19-41); Mean Corp Hgb Conc 32.6 g/dL (32-36); Mean Corpuscular Hgb 29.3 pg (27.0-32.0); Mean Corpuscular Volume 89.8 fL (81-99); Mean Platelet Vol. 12.2 fl (6.2-12.0); Monocyte# 0.16 X10^3/uL; Monocyte% 5.2 % (0-10); NRBC Flagged by Analyzer 0 % (0-5); Neutrophil # 2.15 X10^3/uL (2.7-7.7); Neutrophil % 69.7 % (47-70); POSITIVE COUNT YES; Platelet Count 93 K/mm3 (150-450); Red Blood Count 4.51 M/mm3 (4.2-5.4); White Blood Count 3.1 K/mm3 (4.4-11.0)
[2020-03-21 11:47] LABS: Anion Gap 7 (5-15); BUN 14 mg/dL (7-18); BUN/Creat Ratio 16.7 RATIO (10-20); Calcium,Total 8.7 mg/dL (8.5-10.1); Chloride 107 mmol/L (98-107); Creatinine, Serum 0.84 mg/dL (0.55-1.02); EST Glomerular Filtration Rate 79 mL/min (>60); Est Glom Filt Rate - Afr Amer 96 mL/min (>60); Estimated Creatinine Clearance 63.31 ml/min; Glucose 113 mg/dL (74-106); Potassium 3.1 mmol/L (3.5-5.1); Sodium Level 138 mmol/L (136-145)
[2020-03-21 11:51] LABS: Differential Indicated SCAN CRITERIA MET
[2020-03-21] MEDS: INHALER, ASSIST DEVICES 1 EACH SPACER INHALATION (12:00)
[2020-03-21 12:17] LABS: Platelet Estimate MOD DEC (ADEQ)
[2020-03-21 13:12] VITALS: BP 126/80; PULSE 103; RESP 21; O2SAT 96
--- NOTE | 2020-03-21 13:12 | NURSING ---
DR JUSTIN CALLED, DR MUNOZ IS FITNESS/WELLNESS DIRECTOR
[2020-03-21 13:47] VITALS: BP 113/82; PULSE 101; RESP 18; O2SAT 98
== END 2020-03-21 14:26 | disposition home or self-care (01) ==
PROVIDERS: Emergency Provider Emergency Medicine; PCP Student in an Organized Health Care Education/Training Program
DX: U07.1 COVID-19 (principal); R06.02 Shortness of breath; J45.909 Unspecified asthma, uncomplicated; Z87.442 Personal history of urinary calculi
CPT/HCPCS: 71045; 80048; 85025; 93005; 96360; 96361; 99285

== ENCOUNTER 2020-03-24 05:14 | Emergency (ER) | payer OTHER, SELFPAY ==
[2020-03-24 05:15] VITALS: BP 123/82; PULSE 123; RESP 23; TEMP 36.8; O2SAT 96; O2SAT 97; BMI 28.3
--- NOTE | 2020-03-24 05:20 | ED.DCSUM_ITS ---
History of Present Illness Chief Complaint: Shortness of Breath Detail of Chief Complaint: Coronavirus Informant: Patient Onset: Days - 6 days Context: Gradual Onset Current Severity: Moderate Maximum Severity: Moderate Narrative: Patient presents with continued body aches and shortness of breath with cough after being diagnosed with coronavirus last weekend. She developed symptoms on the afternoon of March 18 and got test results back on March 21. Patient was seen in the ER on that day. Patient states despite Hycodan she continues to have uncontrolled cough. She continues to have fever with generalized body aches and shortness of breath. She last took Tylenol and Excedrin approximately 1 hour prior to evaluation. - Past Medical History (1) Asthma Status: Chronic (2) Kidney stones Status: Resolved Past Medical History - Allergies and Home Meds Allergies/Adverse Reactions: Allergies cephalexin monohydrate [From Keflex] Allergy (Verified 03/24/20 05:21) Rash clarithromycin [From Biaxin] Allergy (Verified 03/24/20 05:21) Rash metronidazole [From Flagyl] Allergy (Verified 03/24/20 05:21) Rash minocycline Allergy (Verified 03/24/20 05:21) Rash Penicillins Allergy (Verified 03/24/20 05:21) VISHNU MOSQUEDA'S citalopram hydrobromide [From Celexa] Adverse Reaction (Verified 03/24/20 05:21) Nausea/Vom/Diarrhea ENTEX Adverse Reaction (Uncoded 03/24/20 05:21) TACHYCARDIA Primary Care Physician: To Longoria DO [Primary Care Provider] - Prior records reviewed: Yes Lives: With Family Smoking Status: Never smoker Review of Systems General: Reports: Fever, Sweats Eyes: Denies: Visual changes - bilaterally ENT: Denies: Bilateral ear pain Cardiovascular: Reports: Heart racing Respiratory: Reports: Dyspnea, Cough Gastrointestinal: Reports: - - Decreased smell and taste. Denies: Vomiting Genitourinary: Reports: - - Decreased urine output. Denies: Dysuria Musculoskeletal: Reports: Myalgias Skin: Denies: Rash Neurological: Reports: Headache Hematologic: Denies: Easy bruising, Easy bleeding Allergy: Denies: Uticaria Physical Exam Vital Signs/Narrative: Vital Signs Temp Pulse Resp BP Pulse Ox 03/24/20 05:15 101.2 F H 123 H 23 H 123/82 H 96 Inital Vital Signs reviewed: Yes General: Well nourished, Well developed Head: Normocephalic ENT: Dry mucous membranes Neck: Supple Cardiovascular: Tachycardia Respiratory: No distress, CTA bilaterally Abdomen: Soft, Nontender, Hypoactive bowel sounds Skin: Normal color Neurological: Alert, Oriented x3 Psychological: Normal affect Diagnostic/Tx/Re-eval Impressions Chest X-Ray 03/24/20 05:55 IMPRESSION: Slight interval worsening of bilateral pneumonia, pattern suspicious for viral pneumonia. Electronically Signed: Nahun Burgos, at 6:23 EDT Tel , Service support , 03/24/20 05:55 Chest 1 View (Portable) [RAD] Stat Laboratory Results 03/24/20 03/24/20 03/24/20 05:25 05:25 05:25 WBC 2.2 L RBC 4.27 Hgb 12.5 Hct 37.9 MCV 88.8 MCH 29.3 MCHC 33.0 RDW Std Deviation 42.4 RDW Coeff of Ilya 13.1 Plt Count 89 L MPV 12.0 Immature Gran % (Auto) 0.500 Neut % (Auto) 71.4 H Lymph % (Auto) 22.1 [place] % (Auto) 5.0 Eos % (Auto) 0.5 Baso % (Auto) 0.5 Absolute Neuts (auto) 1.6 L Absolute Lymphs (auto) 0.49 L Nucleated RBC % 0 Sodium 135 L Potassium 3.4 L Chloride 105 Carbon Dioxide 24.0 Anion Gap 6 BUN 13 Creatinine 0.74 Estim Creat Clear Calc 71.86 Est GFR (MDRD) Af Amer 111 Est GFR (MDRD) Non-Af 92 BUN/Creatinine Ratio 17.6 Glucose 106 Lactic Acid 0.8 Calcium 8.4 L - Medical Decision Making Patient was given a 500 cc fluid bolus along with ibuprofen. Repeat heart rate is in the 90s. Oxygen saturation is maintained at 97% throughout her ED stay on room air. Patient was given a dose of fentanyl to help with body aches. Robitussin-AC is ordered to try to help control her cough. Test results are discussed with her. At this time patient is not hypoxic and there is no different treatment in the hospital as opposed to being discharged home. She does have a pulse ox at home and is closely monitoring her oxygen level. Patient's primary care physician started her on Levaquin yesterday for potential superimposed bacterial pneumonia. ED Disposition - Plan for ED Patient: Disposition: Home or Assisted Living Diagnosis: Coronavirus infection Instructions: ED Viral Syndrome Prescriptions: Fentanyl 12 mcg TRANSDERM. Q72H #2 patch.[id number] Guaifenesin/Codeine [Robitussin AC] 5 ml PO Q6H PRN PRN #100 udc PRN Reason: Cough Referrals: To Longoria DO [Primary Care Provider] -
[2020-03-24 05:23] VITALS: BP 123/82; PULSE 119; RESP 18; TEMP 37; O2SAT 97
[2020-03-24] MEDS: Ibuprofen 200 MG Tablet 400 MG PO (05:32)
[2020-03-24] MEDS: fentaNYL 100 MCG/2 ML Ampul 25 MCG IV (05:32)
[2020-03-24] MEDS: Ondansetron 4 MG/2 ML Vial IV (05:36)
[2020-03-24 05:41] LABS: Absolute Lymphocyte Count 0.49 X10^3/uL (0.83-4.51); Absolute Neutrophil Count 1.6 X10^3/uL (2.0-7.7); Basophil# 0.01 X10^3/uL; Basophil% 0.5 % (0-1); Eosinophil# 0.01 X10^3/uL; Eosinophils% 0.5 % (0-5); Hematocrit 37.9 % (37-47); Hemoglobin 12.5 g/dL (12.0-15.0); Lymphocyte # 0.49 X10^3/ul (4.0); Lymphocyte % 22.1 % (19-41); Mean Corpuscular Hgb 29.3 pg (27.0-32.0); Mean Corpuscular Volume 88.8 fL (81-99); Monocyte# 0.11 X10^3/uL; NRBC Flagged by Analyzer 0 % (0-5); Neutrophil # 1.59 X10^3/uL (2.7-7.7); Neutrophil % 71.4 % (47-70); POSITIVE COUNT YES; POSITIVE DIFFERENTIAL YES; POSITIVE MORPHOLOGY YES; Platelet Count 89 K/mm3 (150-450); RBC Distribution Width CV 13.1 % (11.6-14.6); RBC Distribution Width SD 42.4 fl (35.1-43.9); Red Blood Count 4.27 M/mm3 (4.2-5.4); White Blood Count 2.2 K/mm3 (4.4-11.0)
[2020-03-24 05:54] LABS: Anion Gap 6 (5-15); BUN 13 mg/dL (7-18); BUN/Creat Ratio 17.6 RATIO (10-20); Calcium,Total 8.4 mg/dL (8.5-10.1); Chloride 105 mmol/L (98-107); Creatinine, Serum 0.74 mg/dL (0.55-1.02); EST Glomerular Filtration Rate 92 mL/min (>60); Est Glom Filt Rate - Afr Amer 111 mL/min (>60); Estimated Creatinine Clearance 71.86 ml/min; Glucose 106 mg/dL (74-106); Potassium 3.4 mmol/L (3.5-5.1); Sodium Level 135 mmol/L (136-145)
--- NOTE | 2020-03-24 05:55 | RAD_ITS ---
STUDY: X-RAY CHEST REASON FOR EXAM: Female, 39 years old. Shortness of breath, cough, fever. Positive COVID. TECHNIQUE: AP portable upright COMPARISON: 03/21/2020 CXR FINDINGS: Patchy opacities in the periphery of the mid lungs bilaterally have slightly worsened. No apparent pneumothorax or pleural effusion. Heart size normal. No concerning mediastinal or hilar lesions. No acute osseous abnormality. No evidence of free air under the diaphragm. RAD/Chest 1 View (Portable) IMPRESSION: Slight interval worsening of bilateral pneumonia, pattern suspicious for viral pneumonia. Electronically Signed: Nahun Burgos, at 6:23 EDT Tel , Service support ,
[2020-03-24 05:58] LABS: Lactic Acid 0.8 mmol/L (0.4-1.9)
[2020-03-24 06:20] VITALS: BP 137/83; PULSE 105; RESP 19; TEMP 37.3; O2SAT 95
[2020-03-24 06:36] LABS: Differential Indicated SCAN CRITERIA MET
[2020-03-24 07:34] VITALS: BP 120/88; PULSE 101; RESP 18; TEMP 36.8; O2SAT 96
[2020-03-24 07:39] LABS: Differential Comment SCANNED
[2020-03-24 07:40] LABS: Platelet Estimate MOD DEC (ADEQ)
[2020-03-24] MEDS: guaiFENesin/Codeine 5 ML UDC 10 ML PO (07:50)
== END 2020-03-24 08:56 | disposition home or self-care (01) ==
PROVIDERS: Emergency Provider Emergency Medicine; PCP Student in an Organized Health Care Education/Training Program
DX: U07.1 COVID-19 (principal); J12.89 Other viral pneumonia; J45.909 Unspecified asthma, uncomplicated; Z87.442 Personal history of urinary calculi
CPT/HCPCS: 36415; 71045; 80048; 83605; 85025; 87040; 96361; 96374; 96375; 99285; J7030; J2405

== ENCOUNTER → 2020-04-16 09:35 | Outpatient (CLI) | payer OTHER, SELFPAY ==
[2020-03-24 05:15] VITALS: BMI 28.3
--- NOTE | 2020-04-16 09:51 | VDLE_ITS ---
Reason For Study: Covid 19 RIGHT LEFT GSV is normal. GSV is normal. CFV is compressible, spontaneous, phasic, CFV is compressible, spontaneous, phasic, competent and demonstrates normal competent, and demonstrates normal augmentation. augmentation. FV is compressible, spontaneous, phasic, FV is compressible, spontaneous, phasic, competent and demonstrates normal competent and demonstrates normal augmentation. augmentation. POP V is compressible, spontaneous, phasic, POP V is compressible, spontaneous, phasic, competent and demonstrates normal competent and demonstrates normal augmentation. augmentation. T/P Trunk is compressible. T/P Trunk is compressible. PTV is compressible. PTV is compressible. RT PerV is compressible. LT PerV is compressible. Procedure Exam performed in department. A preliminary report was called and/or faxed to [facility]. Interpretation Summary Deep veins of the lower extremities are bilaterally patent and compressible segmentally. There is no evidence of deep vein thrombosis on either side. Valvular competence appears intact within the proximal deep venous systems bilaterally. The great saphenous veins appear bilaterally patent and compressible segmentally. Ordering Physician: MARSHA TROTTER Referring Physician: To Longoria Performed By: Samreen Davis RVT
--- NOTE | 2020-04-16 10:20 | CT_ITS ---
STUDY: CTA CHEST REASON FOR EXAM: Female, 39 years old. COVID-19, recently hospitalized with COVID, home O2, worsening SOB since yesterday. Hx asthma. RADIATION DOSAGE (If Supplied By Facility): CTDIvol = ( 8.13 ) mGy, DLP = ( 249.43 ) mGycm TECHNIQUE: The examination was performed with the intravenous administration of 75mL Isovue 370. Post-processing of the angiographic images was performed, with multiplanar reformation and 3D reconstruction. Individualized dose optimization techniques were used for this CT. COMPARISON: None. FINDINGS: Normal enhancement of the main pulmonary artery and right and left pulmonary arteries. Normal enhancement of the bilateral peripheral pulmonary arteries. There is no demonstrated pulmonary embolism. Normal thoracic aorta and visualized great vessels. There is no demonstrated aortic dissection. Normal heart and pericardium. Normal mediastinum. Normal hilar regions. Normal visualized trachea and bronchi. The lungs are well expanded. There is evidence of a patchy infiltrates in the peripheral aspects of both upper lobes as well as in the lower lobes and right middle lobe. Normal pleura. Normal chest wall structures. Normal osseous structures. Normal visualized upper abdomen. CT/CTA Chest W/WO Contrast IMPRESSION: No evidence of pulmonary embolism. Bilateral pulmonary infiltrates in the upper lobes located in the peripheral aspects as well as infiltrates in both lower lobes as well as a mild degree of right middle lobe infiltrate. Electronically Signed: Nabil Talley, at 11:31 EDT , Service support ,
[2020-04-16 11:50] LABS: Absolute Lymphocyte Count 1.45 X10^3/uL (0.83-4.51); Basophil# 0.04 X10^3/uL; Basophil% 0.7 % (0-1); Eosinophil# 0.21 X10^3/uL; Eosinophils% 3.4 % (0-5); Hemoglobin 11.3 g/dL (12.0-15.0); Lymphocyte # 1.45 X10^3/ul (4.0); Lymphocyte % 23.6 % (19-41); Mean Corp Hgb Conc 30.5 g/dL (32-36); Mean Corpuscular Hgb 28.8 pg (27.0-32.0); Mean Corpuscular Volume 94.1 fL (81-99); Monocyte# 0.46 X10^3/uL; Monocyte% 7.5 % (0-10); NRBC Flagged by Analyzer 0 % (0-5); Neutrophil # 3.97 X10^3/uL (2.7-7.7); Neutrophil % 64.5 % (47-70); Platelet Count 283 K/mm3 (150-450); RBC Distribution Width CV 14.3 % (11.6-14.6); RBC Distribution Width SD 48.4 fl (35.1-43.9); Red Blood Count 3.93 M/mm3 (4.2-5.4); White Blood Count 6.2 K/mm3 (4.4-11.0)
[2020-04-16 12:03] LABS: D-Dimer Quantitative (DVT/PE) 0.36 FEU/ug/m (0.27-0.49)
[2020-04-16 12:15] LABS: Hemoglobin A1c 5.2 % (3.8-5.6)
[2020-04-16 12:16] LABS: ALB/GLOB Ratio 0.9 RATIO (0.9-2.4); AST(SGOT) 20 U/L (15-37); Alanine Aminotransfer ALT/SGPT 48 U/L (13-56); Albumin, Serum 3.3 g/dL (3.2-5.0); Alkaline Phosphatase 89 U/L (45-117); Anion Gap 5 (5-15); BUN 15 mg/dL (7-18); BUN/Creat Ratio 21.5 RATIO (10-20); Bilirubin, Direct 0.14 mg/dL (0.00-0.30); CRP < 2.90 mg/L (0.0-3.0); Calcium,Total 8.8 mg/dL (8.5-10.1); Chloride 105 mmol/L (98-107); Cholesterol 209 mg/dL (200); EST Glomerular Filtration Rate 98 mL/min (>60); Est Glom Filt Rate - Afr Amer 119 mL/min (>60); Ferritin 24 ng/mL (8-252); Globulin 3.6 g/dL (2.2-4.2); Glucose 69 mg/dL (74-106); High Density Lipoprotein 57 mg/dL; LDH 153 U/L (84-246); Protein, Total 6.9 g/dL (6.4-8.2); Sodium Level 137 mmol/L (136-145); Triglycerides 141 mg/dL; Very Low Density Lipoprotein 28 mg/dL (5-40)
[2020-04-16 12:21] LABS: Vitamin D,25 Hydroxy 35.5 ng/mL
[2020-04-17 09:29] LABS: SAR-COV-2 IGG ANTIBODY Positive (Negative); SAR-COV-2 IGM ANTIBODY Positive (Negative)
== END ==
PROVIDERS: PCP Student in an Organized Health Care Education/Training Program
DX: U07.1 COVID-19 (principal); E55.9 Vitamin D deficiency, unspecified; E78.5 Hyperlipidemia, unspecified; Z86.19 Personal history of other infectious and parasitic diseases; M79.89 Other specified soft tissue disorders
CPT/HCPCS: 36415; 71275; 80053; 80061; 82248; 82306; 82728; 83036; 83615; 85025; 85379; 86140; 86769; 93970; G2023; Q9967

== ENCOUNTER → 2020-05-11 10:45 | Outpatient (CLI) | payer OTHER, SELFPAY | PROVIDERS: PCP Student in an Organized Health Care Education/Training Program; Referring Provider Student in an Organized Health Care Education/Training Program; Visit Provider Student in an Organized Health Care Education/Training Program | DX: R00.2 Palpitations (principal) | CPT/HCPCS: 93225; 93226 ==

== ENCOUNTER → 2020-05-19 13:45 | Outpatient (CLI) | payer OTHER, SELFPAY ==
--- NOTE | 2020-05-19 13:50 | ECHOD_ITS ---
Reason For Study: Palps, tachy, SOB Procedure This was a 2D Doppler, Color Flow transthoracic echocardiogram. Exam performed in department. Left Ventricle Normal LV size. Left ventricular systolic function is normal. The estimated ejection fraction is 65 %. The global longitudinal strain = -19 % (normal). No evidence for diastolic dysfunction. No regional wall motion abnormalities noted. Right Ventricle Normal RV size. Normal systolic function. Atria Normal left atrium. Normal right atrium. No doppler evidence for ASD. Mitral Valve There is no mitral annular calcification. Normal mitral valve. Trivial mitral valve insufficiency. Tricuspid Valve Normal tricuspid valve. Trivial tricuspid valve insufficiency. Right ventricular systolic pressure estimated to be 22 mmHg. Aortic Valve Trisinus/trileaflet aortic valve. Normal aortic valve. Pulmonic Valve The pulmonic valve is not well visualized. Great Vessels Normal sized aortic root. Pericardium/Pleural No pericardial effusion. MMode/2D Measurements & Calculations LVIDd: 3.6 cm IVSd: 0.90 cm Ao root diam: 2.6 cm LVIDs: 1.8 cm LVPWd: 1.0 cm RVDd: 2.5 cm FS: 49.7 % LAV(MOD-bp): 38.8 ml LVAd ap4: 20.3 cm2 SV(MOD-sp4): 28.9 ml LAV(MOD-bp) Indexed: 24.1 ml/m2 EDV(MOD-sp4): 47.3 ml LAV(MOD-sp2): 38.5 ml EDV(sp4-el): 46.6 ml LAV(MOD-sp4): 32.9 ml LVAs ap4: 11.1 cm2 ESV(MOD-sp4): 18.4 ml ESV(sp4-el): 17.6 ml EF(MOD-sp4): 61.2 % EF(sp4-el): 62.3 % SV(sp4-el): 29.0 ml LA A4 area: 14.5 cm2 LA dimension(2D): 3.2 cm RA A4 area: 9.0 cm2 Doppler Measurements & Calculations MV E max gilberto: 60.1 cm/sec Lat Peak E' Gilberto: 12.8 cm/sec Med Peak E' Gilberto: 7.6 cm/sec MV A max gilberto: 79.3 cm/sec E/E' lat: 4.7 E/E' med: 7.9 MV E/A: 0.76 Ao V2 max: 140.9 cm/sec LV V1 max: 122.0 cm/sec PA V2 max: 131.8 cm/sec Ao max P.9 mmHg LV V1 max P.0 mmHg TR max gilberto: 217.1 cm/sec TR max P.9 mmHg Interpretation Summary Left ventricular systolic function is normal. The estimated ejection fraction is 65 %. The global longitudinal strain = -19 % (normal). Trivial mitral valve insufficiency. Trivial tricuspid valve insufficiency. Right ventricular systolic pressure estimated to be 22 mmHg. No evidence for diastolic dysfunction. Ordering Physician: To Longoria Referring Physician: To Longoria Performed By: Concepción Valdez RDCS
== END ==
PROVIDERS: PCP Student in an Organized Health Care Education/Training Program; Referring Provider Student in an Organized Health Care Education/Training Program; Visit Provider Student in an Organized Health Care Education/Training Program
DX: R00.2 Palpitations (principal)
CPT/HCPCS: 93306

== ENCOUNTER → 2020-06-26 09:22 | Outpatient (CLI) | payer OTHER, SELFPAY ==
[2020-06-16 10:47] VITALS: BMI 29.7
--- NOTE | 2020-06-26 09:25 | STE_ITS ---
Reason For Study: CHEST PAIN Stress Results Protocol: Stress Echocardiogram Maximum Predicted HR: 179 bpm Target HR: 152 bpm % Maximum Predicted HR: 100 % DurationHeart Rate Stage (mm:ss) (bpm) BP Comment BASELINE 85 114/78PO 100% SAVANNA[place] PROTOCOL- STAGE 1 3:00 146 140/60PO 99%, CP 2-3/10 SAVANNAH PROTOCOL- STAGE 2 3:00 162 144/68PO 99%, CP 4-5 SAVANNAH PROTOCOL- STAGE 3 1:00 179 / PO 98%, CP 5 RECOVERY 90 118/78PO 100%, CP SUBSIDED Stress Duration: 7:00 mm:ss Maximum Stress HR: 179 bpm Baseline Echocardiogram Findings The estimated ejection fraction is 65 %. Stress Echo Wall motion Data Resting WM Intermediate WM Stress WM Resting Wall Motion Wall Motion Stress No regional wall motion No regional wall motion abnormalities noted. abnormalities noted. EKG Data The baseline ECG displays normal sinus rhythm. The patient exercised according to the regular [place] protocol for a total duration of 7:01. The maximum heart rate attained was 179 beats per minute. This was 100% of maximum predicted heart rate. The patient exercised into stage 3 of the [place] protocol. During stress, there were no ST or T wave changes noted to suggest ischemia. No clinical angina was noted. No arrhythmias noted. Interpretation Summary The estimated ejection fraction is 65 %. Normal, adequate, treadmill echocardiogram. Negative for ischemia by EKG and echocardiographic criteria. No anginal symptoms noted. No arrhythmias noted. Below average exercise capacity for age. Test terminated due to attainment of target heart rate, fatigue and dyspnea. Final LVEF is 75%. No complications. Ordering Physician: Cornelius Tyler MD Referring Physician: Cornelius Tyler Performed By: Concepción Valdez RDCS
== END ==
PROVIDERS: PCP Student in an Organized Health Care Education/Training Program; Referring Provider Internal Medicine Cardiovascular Disease; Visit Provider Internal Medicine Cardiovascular Disease
DX: R00.0 Tachycardia, unspecified (principal); R07.9 Chest pain, unspecified; Z86.19 Personal history of other infectious and parasitic diseases
CPT/HCPCS: 93017; 93350

== ENCOUNTER → 2020-08-24 | Outpatient (CLI) | payer OTHER, SELFPAY ==
[2020-06-16 10:47] VITALS: BMI 29.7
[2020-08-24 13:05] LABS: D-Dimer Quantitative (DVT/PE) <= 0.27 FEU/ug/m (0.27-0.49)
== END | disposition home or self-care (01) ==
PROVIDERS: PCP Student in an Organized Health Care Education/Training Program; Visit Provider Registered Nurse
DX: R06.02 Shortness of breath (principal); R00.0 Tachycardia, unspecified
CPT/HCPCS: 84484; 85379

== ENCOUNTER → 2020-08-31 13:58 | Outpatient (CLI) | payer OTHER, SELFPAY ==
[2020-06-16 10:47] VITALS: BMI 29.7
[2020-08-31 17:41] LABS: CRP < 2.90 mg/L (0.0-3.0); Rheumatoid Factor < 10.0 IU/mL (<15)
[2020-09-02 14:08] LABS: RNP Ab <0.2 AI (0.0-0.9); Smith Ab <0.2 AI (0.0-0.9)
[2020-09-02 16:11] LABS: ANTINUCLEAR ANTIBODIES DIRECT Negative (Negative)
== END ==
PROVIDERS: PCP Student in an Organized Health Care Education/Training Program; Referring Provider Student in an Organized Health Care Education/Training Program; Visit Provider Student in an Organized Health Care Education/Training Program
DX: I42.8 Other cardiomyopathies (principal); I40.1 Isolated myocarditis; R00.0 Tachycardia, unspecified; R06.00 Dyspnea, unspecified; Z86.19 Personal history of other infectious and parasitic diseases; R06.02 Shortness of breath; R94.6 Abnormal results of thyroid function studies
CPT/HCPCS: 36415; 86038; 86140; 86235; 86431

== ENCOUNTER → 2020-09-21 15:53 | Outpatient (CLI) | payer OTHER, SELFPAY ==
[2020-06-16 10:47] VITALS: BMI 29.7
--- NOTE | 2020-09-21 15:54 | BI_ITS ---
MAMMOGRAPHY - BILATERAL SCREENING REASON FOR EXAM: Female, 39 years old. Routine annual screening examination. PERTINENT HISTORY: Grandmother with breast cancer. Remote left needle breast biopsy. TECHNIQUE: Digital bilateral breast andreas (3D mammographic acquisition) in the CC and MLO projections. 2-D mediolateral oblique (MLO) and craniocaudad (CC) views of both breasts were obtained. CAD: Full Field Digital Mammography with Computer Added Detection was performed. COMPARISON: Comparison is made with prior study dated 09/16/2019 and 09/13/2018. FINDINGS: Breast Composition: There are scattered areas of fibroglandular density. There are no dominant masses or suspicious calcifications. Stable small benign-appearing bilateral axillary lymph nodes. No other significant abnormalities are identified. There has been no significant change since the prior study. BI/SCREEN MAMM (CAD) W/ANDREAS BILAT IMPRESSION: Stable bilateral screening mammogram. Yearly follow-up mammogram recommended. (A) ASSESSMENT CATEGORY: BIRADS Category 2: Benign. A letter regarding these results will be sent to the patient by the facility within 30 days. Approximately 10% of breast cancers are not detected by mammography. A normal mammogram should not delay biopsy of a clinically suspicious abnormality. [id number] Electronically Signed: Nabil Talley, at 8:36 EST , Service support ,
== END ==
PROVIDERS: PCP Student in an Organized Health Care Education/Training Program; Referring Provider Student in an Organized Health Care Education/Training Program; Visit Provider Student in an Organized Health Care Education/Training Program
DX: Z12.31 Encounter for screening mammogram for malignant neoplasm of breast (principal)
CPT/HCPCS: 77063; 77067

== ENCOUNTER → 2020-09-22 09:40 | Outpatient (CLI) | payer OTHER, SELFPAY ==
[2020-06-16 10:47] VITALS: BMI 29.7
[2020-09-22 09:57] LABS: Hematocrit 39.9 % (37-47); Hemoglobin 12.5 g/dL (12.0-15.0); Mean Corp Hgb Conc 31.3 g/dL (32-36); Mean Corpuscular Hgb 29.3 pg (27.0-32.0); Mean Corpuscular Volume 93.7 fL (81-99); Mean Platelet Vol. 11.3 fl (6.2-12.0); Platelet Count 239 K/mm3 (150-450); RBC Distribution Width CV 13.6 % (11.6-14.6); RBC Distribution Width SD 46.5 fl (35.1-43.9); Red Blood Count 4.26 M/mm3 (4.2-5.4); White Blood Count 6.1 K/mm3 (4.4-11.0)
[2020-09-22 10:03] LABS: Internal QC Validated? YES +Cl - CLEAR BKGD; Pregnancy, Serum, hCG Quali. NEGATIVE Negative
--- NOTE | 2020-09-22 14:44 | TILTTABLE_ITS ---
- Staff Staff: Carly White, - - Coni Caldera - Summary Pre Test Resting HR: 72 - Alert and oriented: Warm and dry Pre Test Resting BP: 129/74 - Alert and oriented: Warm and dry Minimum Test HR: 77 - Alert and oriented: Warm and dry Maximum Test HR: 99 - Alert and oriented: Warm and dry Minimum Test BP: 111/77 - Alert and oriented: Warm and dry Maximum Test BP: 138/73 - Alert and oriented: Warm and dry Reason for Test Termination: Reached Maximum Test Time Physician Tilt Table Report - Patient's Physicians Primary Care Physician: To Longoria Interior Assemblies Installer: Luis Kang Indications/Diagnosis: Tachycardia Procedure Comments: The patient was brought to the tilt table laboratory and laid supine on the tilt table. The patient was alert and oriented and warm and dry. The baseline heart rate was 72 bpm with a baseline blood pressure 129/74 mmHg. The cardiac rhythm was normal sinus rhythm. The patient was placed in the 70 degree upright tilt table position for approximately 30 minutes. The patient remained alert and oriented and warm and dry. During that time the patient's minimal heart rate was 77 bpm and the patient's minimal blood pressure was 111/77 mmHg with a maximal heart rate of 99 bpm and a maximal blood pressure 138/73 mmHg. The cardiac rhythm remains normal sinus rhythm. The patient noted upon initiation of the upright position feeling transiently lightheaded, during the upright position she had transient chest pressure , and transient shortness of breath . The patient did not lose consciousness. The patient was returned to the supine position where she remained alert and oriented and warm and dry. Her concluding heart rate was 82 bpm with a concluding blood pressure 118/64 mmHg. Her cardiac rhythm remained normal sinus rhythm. She had no complaints. She was subsequently sitting up and taking oral intake. The patient was eventually released from the tilt table laboratory. Summary: 70 degree upright tilt table study considered negative for evidence of tilt table induced tachycardia/tachycardia dysrhythmias as well as considered negative for tilt table induced vasovagal/neurocardiogenic mediated near syncope/syncope. This note was generated using a voice recognition system and there may be incorrect words, spelling or punctuation that were not noted when reviewing the office note prior to saving.
[2020-09-22 14:50] VITALS: BP 111/77; BP 129/74; BP 138/73
[2020-09-29 06:30] LABS: HPV APTIMA, High Risk Negative (Negative)
== END ==
PROVIDERS: PCP Student in an Organized Health Care Education/Training Program; Referring Provider Student in an Organized Health Care Education/Training Program; Visit Provider Student in an Organized Health Care Education/Training Program
DX: R00.0 Tachycardia, unspecified (principal); R06.00 Dyspnea, unspecified; Z86.19 Personal history of other infectious and parasitic diseases; I42.8 Other cardiomyopathies; I40.1 Isolated myocarditis; R06.02 Shortness of breath; Z12.4 Encounter for screening for malignant neoplasm of cervix
CPT/HCPCS: 36415; 84703; 85027; 87624; 88175; 93660; J7040; A4216; G0145

== ENCOUNTER → 2020-09-30 08:19 | Outpatient (CLI) | payer OTHER, SELFPAY ==
[2020-09-22 15:35] VITALS: BMI 31.1
[2020-09-30 08:53] VITALS: BP 104/75; PULSE 65; RESP 16; TEMP 36.8; O2SAT 99; BMI 30.7
[2020-09-30] MEDS: Cosyntropin 0.25 MG Vial IM (09:54)
== END ==
PROVIDERS: PCP Student in an Organized Health Care Education/Training Program; Referring Provider Student in an Organized Health Care Education/Training Program; Visit Provider Student in an Organized Health Care Education/Training Program
DX: R00.0 Tachycardia, unspecified (principal); R06.00 Dyspnea, unspecified; Z86.19 Personal history of other infectious and parasitic diseases; R94.6 Abnormal results of thyroid function studies; K21.9 Gastro-esophageal reflux disease without esophagitis; R63.5 Abnormal weight gain
CPT/HCPCS: 36415; 82533; 96372; J0834

== ENCOUNTER 2020-10-23 06:15 | Day surgery (SDC) | payer OTHER, SELFPAY ==
[2020-09-30 13:48] VITALS: BMI 31.3
[2020-10-12 13:46] VITALS: BMI 30.9
--- NOTE | 2020-10-22 06:00 | HP_ITS ---
Intake Vital Signs 09/30/20 Height 4 ft 11 in 09/30/20 Weight: 155 lb 4 oz 09/30/20 BP 107/75 09/30/20 Blood Pressure Location Rt brachial 09/30/20 Position Sitting 09/30/20 Respiration 18 09/30/20 Pulse 79 09/30/20 Pulse Source Monitor 09/30/20 Temp 97.8 F 09/30/20 Temp Source Temporal 09/30/20 Pulse Oximetry (%) 100 09/30/20 Oxygen Delivery Method room air Intake Visit Reasons: Upper/Lower Scope Chief Complaint: Consult for EGD/C-Scope Document Control Clerk Required: No Is patient in pain?: No Allergies cephalexin monohydrate [From Keflex] Allergy (Verified 10/12/20 13:41) Rash clarithromycin [From Biaxin] Allergy (Verified 10/12/20 13:41) Rash metronidazole [From Flagyl] Allergy (Verified 10/12/20 13:41) Rash minocycline Allergy (Verified 10/12/20 13:41) Rash Penicillins Allergy (Verified 10/12/20 13:41) VISHNU RONDONS citalopram hydrobromide [From Celexa] Adverse Reaction (Verified 10/12/20 13:41) Nausea/Vom/Diarrhea ENTEX Adverse Reaction (Uncoded 09/22/20 15:30) TACHYCARDIA Medications alprazolam 0.25 mg tablet 0.25 mg PO DAILY PRN 05/15/19 [History Confirmed 10/12/20] Multivitamin with Minerals [Multiple Vitamin] 1 ea PO DAILY 09/02/19 [History Confirmed 10/12/20] esomeprazole magnesium 40 mg capsule,delayed release 40 mg PO DAILY 09/22/20 [History Confirmed 10/12/20] lactobacillus combination no.8 3 billion cell capsule 3,000 mmu cells PO DAILY 09/22/20 [History Confirmed 10/12/20] cetirizine 10 mg capsule 10 mg PO DAILY 09/30/20 [History Confirmed 10/12/20] metoprolol succinate 25 mg tablet,extended release 24 hr 25 mg PO DAILY #30 tab 10/06/20 [Rx Confirmed 10/12/20] cholecalciferol (vitamin D3) 50 mcg (2,000 unit) capsule 1,000 unit PO DAILY cap 10/12/20 [History Confirmed 10/12/20] lisinopril 2.5 mg tablet 2.5 mg PO DAILY #30 tab 10/12/20 [Rx Confirmed 10/12/20] vilazodone 10 mg tablet 10 mg PO DAILY tab 10/12/20 [History Confirmed 10/12/20] [facility] Medical History Menorrhagia with regular cycle (Acute) Tachycardia (Acute) History of severe acute respiratory syndrome coronavirus 2 (SARS-CoV-2) disease (Resolved) Asthma (Chronic) Kidney stones (Resolved) Shingles (Resolved) Depression with anxiety (Acute) Anemia (Acute) Constipation (Acute) Diarrhea (Acute) GERD (gastroesophageal reflux disease) (Acute) IBS (irritable colon syndrome) (Acute) Knee pain (Acute) Sleep apnea (Acute) h/o dillation and cutterage (Acute) neck and back pain (Acute) uterine ablation (Acute) uterine ablation (Acute) Surgical History History of breast biopsy (Acute) History of eye surgery (Acute) History of wisdom tooth extraction (Acute) Hx of tubal ligation (Acute) history cysto with stent insertion (Acute) History of (Chronic) Family History Grandmother Atrial fibrillation Hypertension Mother Hypertension Mitral valve prolapse Grandfather Cancer Esophageal cancer HPI HPI Surgical H&P: Yes HPI: ISAK QUEEN, is a 40 F who presents to the office today for Evaluation for endoscopy. Patient has had difficulty with diarrhea and abdominal cramping she has not noticed any blood but her stools have been green in nature. In addition she has had difficulty with GERD she has had an upper GI which showed a small sliding hiatal hernia with gastroesophageal reflux disease. She however has never had an upper scope. Patient states that she is always had irritable bowel disease. States that many times after she goes to a restaurant she has to stop and use the restroom prior to getting home. She is also been having some abdominal bloating. ROS General General: No weight change, appetite, fatigue, colon cancer, breast cancer or weakness HEENT HEENT: Yes eye surgery; no difficulty swallowing, eye injury, swollen glands or hoarseness Endo Endocrine: No thyroid disease, diabetes mellitus, thyroid cancer, Hair loss, heat intolerance or cold intolerance Skin Skin: No rash or changing moles Breast Breast: No left breast lump, right breast lump, nipple discharge, breast pain, abnormal mammogram, abnormal US or breast enlargement Musc Musculoskeletal: No back problems, arthritis, rheumatoid arthritis, gout or joint pain Cardio Cardiovascular: No murmur, pacemaker, heart disease, atrial fibrillation, high blood pressure, heart attack, heart stent, palpitations, shortness of breat with exertion or chest pain Additional Details: Tachycardia Psych Psychiatric: Yes depression and anxiety; no hearing voices Resp Respiratory: No shortness of breath, Yes sleep apnea, No cough, No COPD, No asthma, No emphysema, No wheezing Gastro Gastrointestinal: No abdominal pain, No nausea or vomiting, Yes diarrhea, Yes constipation, No blood in stool, Yes acid reflux, No hemorrhoids, No ulcers, No gallbladder problem, No black,tarry stools [place] Hematologic: No blood thinners, No blood disorders, No bleeding, Yes anemia, No blood clots Neuro Neurologic: No system reviewed and no additional complaints, except as docu, No as per HPI, No abnormal walking, No abnormal hearing, No abnormal movements, No abnormal speech, No behavioral changes, No burning sensations, No confusion, No seizure-like activity, No unsteadiness, No dizziness, No localized weakness, No frequent falls, No headache(s), No lack of coordination, No loss of vision, No memory loss, No numbness, No other visual disturbances, No radiating pain, No restless legs, No sensory deficit, No fainting, No tingling, No tremor(s), No weakness, No other Exam Const General: no acute distress, well developed, well hydrated Orientation: oriented to person, oriented to place, oriented to time [facility] Head: normocephalic, atraumatic Ears: external ears normal Mouth: moist mucous membranes Eyes Sclera: sclerae normal Pupils: normal by confrontation Neck Neck: no lymphadenopathy noted Neck mass: No Thyroid: thyroid normal, symmetrical Chest Chest palpation & inspection: normal inspection of the chest Breast Palpation: No nipple discharge Resp Effort & Inspection: normal respiratory effort Auscultation: clear to auscultation bilaterally Percussion: percussion normal Cardio Rate: regular rate Rhythm: regular rhythm Heart Sounds: no murmurs GI Palpation: soft, no hepatosplenomegaly, no masses, nontender Rectal Exam: other Other: Rectal exam deferred. Extrem General: normal to inspection, no clubbing, cyanosis or edema Assessment & Plan Problems 1. Diarrhea, unspecified type R19.7 2. Gastroesophageal reflux disease, unspecified whether esophagitis present K21.9 Plan I have discussed the above with the patient. I have offered the patient colonoscopy As well as an EGD for evaluation. I have explained the risks/benefits of the procedure and described the procedure. I have discussed the risks with the patient, including but not limited to: infection, bleeding, perforation of the GI tract requiring emergency surgery, inability to complete the procedure, injury to any internal organs, complications of anesthesia, etc. - the patient understands and agrees to proceed. I have answered all the patient's questions to the patient's satisfaction and the patient has no further questions. The patient has been given instructions for the colon cleansing preparation. We will be doing random colon biopsies. Medications Discontinued: metoprolol tartrate Discontinued Reason: Order Changed 25 mg PO DAILY Coding Level of Care Code Off vis,new,level 3 Diagnoses Diarrhea, unspecified type R19.7 ??Diarrhea type: unspecified type Gastroesophageal reflux disease, unspecified whether esophagitis present K21.9 ??Esophagitis presence: esophagitis presence not specified COVID (Procedure Consent) Procedure Criteria Procedure Criteria: Yes Elective The surgeon/proceduralist and patient have discussed in detail the risk of exposure to and/or potential harm posed by the COVID-19 virus with having a surgery/procedure at this time versus the risk of? delaying the surgery/procedure. It is not possible to know either the risk of delaying the surgery or procedure or chance of getting an infection with perfect accuracy, but a joint decision was made between the patient and the surgeon/proceduralist ?to proceed at this time with the scheduled surgery/procedure as indicated on the consent form. I have re-examined the patient. There are no clinical changes since date of exam.
[2020-10-23] VITALS (7 sets, daily range): BP systolic 102–119; BP diastolic 67–78; PULSE 68–87; RESP 16; TEMP 36.3–36.5; O2SAT 95–100; BMI 30.4
--- NOTE | 2020-10-23 | GASB_PTH ---
PATIENT: ISAK QUEEN LOC: EN U#:[id number] AGE/SX: 40/F ROOM: RE10/23/[address]: Dr. Cornelius Anaya MD : 1980 BED: DIS: 10/23/2020 SPEC #: [id number] RECD: 10/23/20 09:39 STATUS: MALIA RILEY #: [id number] RENATE: 10/23/20 00:[address]: Cornelius Anaya DEPT: SURGICAL PATHOLOGY RECD BY: Martinez Bermudez ENTERED: 10/23/20 10:28 SP TYPE: Gastric Bx OTHR DR: Dr. To Longoria, Tissues: A - Gastric mucous membrane B - COLON BIOPSY C - Ascending colon Procedures: Surgery Specimen Level IV HEADER OPERATION: Colonoscopy, EGD ([facility] [place]) PRE-OP DIAGNOSIS: Diarrhea TISSUE SUBMITTED: A - Antrum biopsy for histo and H. pylori, B - Random colonic biopsy, C - Ascending colon mass biopsy MICROSCOPIC DIAGNOSIS A. Gastric antrum, biopsy: Chronic gastritis. See comment. B. Colon, random biopsy: No pathologic change. C. Ascending colon mass, biopsy: Fragments of tubulovillous adenoma. AM:anna 10/26/20 COMMENT A. The results of immunohistochemistry for Helicobacter pylori will be reported separately ([id number]). MICROSCOPIC DESCRIPTION Slides are reviewed. GROSS DESCRIPTION A - Received in fixative is one container labeled with the patient's name and designated antrum biopsy. The specimen consists of one irregular fragment of light del angel soft tissue that measures 0.5 x 0.2 x 0.1 cm. The specimen is totally submitted in one cassette. B - Received in fixative is one container labeled with the patient's name and designated random colonic biopsy. The specimen consists of multiple irregular fragments of light del angel soft tissue that in aggregate measure 2 x 0.4 x 0.1 cm. The specimen is totally submitted in one cassette. C - Received in fixative is one container labeled with the patient's name and designated ascending colon mass biopsy. The specimen consists of multiple irregular fragments of light del angel soft tissue that in aggregate measure 0.6 x 0.3 x 0.1 cm. The specimen is totally submitted in one cassette. / SJ:rg 10/23/20 TC:5 [facility]: [id number] x3 ADDENDUM ADDENDUM ADDENDUM ADDENDUM ADDENDUM ADDENDUM ADDENDUM ADDENDUM ADDENDUM ADDENDUM ADDENDUM ADDENDUM ADDENDUM ADDENDUM 01/25/2021 11:18 ADDENDUM 01/25/2021 11:18 ADDENDUM 01/25/2021 11:18 ADDENDUM 01/25/2021 11:18 ADDENDUM 01/25/2021 11:18 This addendum is added to incorporate an outside pathology consultation report. The case was examined at [facility] (#[id number]) and the following diagnosis was rendered. A. Stomach, antrum, biopsy: Mild chronic gastritis. No helicobacter pylori identified. B. Colon, random biopsy: Colonic mucosa with no significant pathologic findings. C. Ascending colon mass, biopsy: Fragments of tubulovillous adenoma. Please see complete above mentioned consultation report in EMR
[2020-10-23] MEDS: Lactated Ringers 1,000 ML 75 ML IV (06:56)
--- NOTE | 2020-10-23 07:15 | IMM_PTH ---
PATIENT: ISAK QUEEN LOC: EN U#:[id number] AGE/SX: 40/F ROOM: RE10/23/[address]: Dr. Cornelius Anaya MD : 1980 BED: DIS: 10/23/2020 SPEC #: [id number] RECD: 10/23/20 11:47 STATUS: MALIA REQ #: [id number] RENATE: 10/23/20 07:[address]: Cornelius Anaya DEPT: IMMUNOHISTOCHEMISTRY RECD BY: Mia Guzman ENTERED: 10/23/20 11:48 SP TYPE: IMMUNO OTHR DR: Dr. To Longoria, Tissues: A - Stomach, NOS Procedures: H Pylori (initial) PHYSICIAN & INSTITUTION [place] [id number] SPECIMEN INFORMATION: Tissue Source: A - Antrum biopsy Clinical Info: Diarrhea, GERD Specimen Number: [id number] CPT code: 09091 METHODOLOGY: Deparaffinized sections of prefer/formalin-fixed tissue or PAP/DQ stained slides are incubated with monoclonal/polyclonal antibodies/oligonucleotide probes. Localization is made via biotin free immunoperoxidase method. Appropriate controls are performed and reacted as expected. Results on target cell population are indicated in the following table: RESULTS: ANTIBODY / CLONE RESULT Block A H Pylori (polyclonal) negative These tests were developed and their performance characteristics determined by [facility]. They may not have been cleared or approved by the U.S. Food and Drug Administration. The FDA has determined that such clearance or approval is not necessary. INTERPRETATION: A. Antrum, biopsy: Negative for Helicobacter pylori organisms. AM:anna 10/26/20
--- NOTE | 2020-10-23 07:49 | OP.EGD_ITS ---
Patient Name: Brice Gomez Procedure Date: 10/23/2020 6:55 AM Date of : 1980 Age: 40 Procedure: Upper GI endoscopy Indications: Gastro-esophageal reflux disease Providers: Cornelius Anaya MD Referring MD: To Longoria Medicines: See the Anesthesia note for documentation of the administered medications Patient Profile: This is a 40 year old female. Refer to note in patient chart for documentation of history and physical. Complications: No immediate complications. Procedure: Pre-Anesthesia Assessment: - Prior to the procedure, a History and Physical was performed, and patient medications and allergies were reviewed. The patient's tolerance of previous anesthesia was also reviewed. The risks and benefits of the procedure and the sedation options and risks were discussed with the patient. All questions were answered, and informed consent was obtained. Prior Anticoagulants: The patient has taken no previous anticoagulant or antiplatelet agents. ASA Grade Assessment: II - A patient with mild systemic disease. After reviewing the risks and benefits, the patient was deemed in satisfactory condition to undergo the procedure. After obtaining informed consent, the endoscope was passed under direct vision. Throughout the procedure, the patient's blood pressure, pulse, and oxygen saturations were monitored continuously. The Endoscope was introduced through the mouth, and advanced to the second part of duodenum. The upper GI endoscopy was accomplished without difficulty. The patient tolerated the procedure well. Scope In: 7:21:42 AM Scope Out: 7:24:07 AM Total Procedure Duration Time 0 hours 2 minutes 25 seconds Findings: The examined esophagus was normal. No biopsies or other specimens were collected for this exam. Localized mild inflammation characterized by congestion (edema) and erythema was found in the prepyloric region of the stomach. Biopsies were taken with a cold forceps for Helicobacter pylori testing. The examined duodenum was normal. No biopsies or other specimens were collected for this exam. Impression: - Normal esophagus. No specimens collected. - Gastritis. Biopsied. - Normal examined duodenum. No specimens collected. Recommendation: - Discharge patient to home. - Resume previous diet. - Continue present medications. - Await pathology results. - Repeat upper endoscopy at appointment to be scheduled for surveillance. - Return to my office in 1 week. - Perform ambulatory esophageal manometry at appointment to be scheduled. - Perform ambulatory pH monitoring at appointment to be scheduled. Procedure Code(s): --- Professional --- 18763, Esophagogastroduodenoscopy, flexible, transoral; with biopsy, single or multiple Diagnosis Code(s): --- Professional --- K29.70, Gastritis, unspecified, without bleeding K21.9, Gastro-esophageal reflux disease without esophagitis CPT copyright 2017 [employer]. All rights reserved. The codes documented in this report are preliminary and upon transportation attendant review may be revised to meet current compliance requirements. MD Cornelius Bhatti MD 10/23/2020 7:49:23 AM This report has been signed electronically. Number of Addenda: 0 Note Initiated On: 10/23/2020 6:55 AM
--- NOTE | 2020-10-23 07:50 | OP.CCLET_ITS ---
10/23/2020 To Longoria [address] [id number] Re : Upper GI endoscopy procedure for Brice Gomez Dear Dr. Longoria This procedure was performed on Friday, October 23, 2020. My impressions and recommendations are as follows: Impressions : - Normal esophagus. No specimens collected. - Gastritis. Biopsied. - Normal examined duodenum. No specimens collected. Recommendations : - Discharge patient to home. - Resume previous diet. - Continue present medications. - Await pathology results. - Repeat upper endoscopy at appointment to be scheduled for surveillance. - Return to my office in 1 week. - Perform ambulatory esophageal manometry at appointment to be scheduled. - Perform ambulatory pH monitoring at appointment to be scheduled. My findings are described in the full procedure note, which is enclosed. If I can be of further assistance, please feel free to contact me at Doctor phone number(s): , Fax: [phone], Work: . Sincerely, MD Cornelius Bhatti MD 10/23/2020 7:49:23 AM This report has been signed electronically.
--- NOTE | 2020-10-23 07:54 | OP.COLON_ITS ---
Patient Name: Brice Gomez Procedure Date: 10/23/2020 7:24 AM Date of : 1980 Age: 40 Procedure: Colonoscopy Indications: Clinically significant diarrhea of unexplained origin Providers: Cornelius Anaya MD Referring MD: To Longoria Medicines: See the Anesthesia note for documentation of the administered medications Patient Profile: This is a 40 year old female. Refer to note in patient chart for documentation of history and physical. Last Colonoscopy: none. The patient's first colonoscopy is today. Complications: No immediate complications. Procedure: Pre-Anesthesia Assessment: - Prior to the procedure, a History and Physical was performed, and patient medications and allergies were reviewed. The patient's tolerance of previous anesthesia was also reviewed. The risks and benefits of the procedure and the sedation options and risks were discussed with the patient. All questions were answered, and informed consent was obtained. Prior Anticoagulants: The patient has taken no previous anticoagulant or antiplatelet agents. ASA Grade Assessment: II - A patient with mild systemic disease. After reviewing the risks and benefits, the patient was deemed in satisfactory condition to undergo the procedure. After I obtained informed consent, the scope was passed under direct vision. Throughout the procedure, the patient's blood pressure, pulse, and oxygen saturations were monitored continuously. The colonoscope was introduced through the anus and advanced to the cecum, identified by appendiceal orifice and ileocecal valve. The colonoscopy was performed without difficulty. The patient tolerated the procedure well. The quality of the bowel preparation was good. Scope In: 7:26:15 AM Scope Withdrawal Time 0 hours 11 minutes 15 seconds Scope Out: 7:42:43 AM Total Procedure Duration Time 0 hours 16 minutes 28 seconds Findings: A fungating non-obstructing small mass was found in the proximal ascending colon. The mass was non-circumferential. The mass measured two cm in length. In addition, its diameter measured ten mm. No bleeding was present. This was biopsied with a cold forceps for histology. A few small-mouthed diverticula were found in the sigmoid colon. No biopsies or other specimens were collected for this exam. Non-bleeding internal hemorrhoids were found during retroflexion. The hemorrhoids were mild and small. The colon (entire examined portion) appeared normal. Biopsies for histology were taken with a cold forceps from the entire colon for evaluation of microscopic colitis. 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 Biopsied. - Diverticulosis in the sigmoid colon. No specimens collected. - Non-bleeding internal hemorrhoids. - The entire examined colon is normal. Biopsied. Recommendation: - Await pathology results. - Repeat colonoscopy at appointment to be scheduled for surveillance. - Return to my office in 1 week. - Continue present medications. Procedure Code(s): --- Professional --- 62334, Colonoscopy, flexible; with biopsy, single or multiple Diagnosis Code(s): --- Professional --- D49.0, Neoplasm of unspecified behavior of digestive system K64.8, Other hemorrhoids R19.7, Diarrhea, unspecified K57.30, Diverticulosis of large intestine without perforation or abscess without bleeding CPT copyright 2017 [employer]. All rights reserved. The codes documented in this report are preliminary and upon patrol man review may be revised to meet current compliance requirements. MD Cornelius Bhatti MD 10/23/2020 7:53:38 AM This report has been signed electronically. Number of Addenda: 0 Note Initiated On: 10/23/2020 7:24 AM
--- NOTE | 2020-10-23 07:54 | OP.CCLET_ITS ---
10/23/2020 To Longoria [address] [id number] Re : Colonoscopy procedure for Brice Gomez Dear Dr. Longoria This procedure was performed on Friday, October 23, 2020. My impressions and recommendations are as follows: Impressions : - Likely malignant tumor in the proximal ascending colon. Biopsied. - Diverticulosis in the sigmoid colon. No specimens collected. - Non-bleeding internal hemorrhoids. - The entire examined colon is normal. Biopsied. Recommendations : - Await pathology results. - Repeat colonoscopy at appointment to be scheduled for surveillance. - Return to my office in 1 week. - Continue present medications. My findings are described in the full procedure note, which is enclosed. If I can be of further assistance, please feel free to contact me at Doctor phone number(s): , Fax: [phone], Work: . Sincerely, MD Cornelius Bhatti MD 10/23/2020 7:53:38 AM This report has been signed electronically.
== END 2020-10-23 08:35 | disposition home or self-care (01) ==
LOC: EN 06:16 → AC 06:16
PROVIDERS: PCP Student in an Organized Health Care Education/Training Program; Referring Provider Student in an Organized Health Care Education/Training Program; Visit Provider Surgery
PROC: 0DJD8ZZ Inspection of Lower Intestinal Tract, Via Natural or Artificial Opening Endoscopic (ICD-10-PCS; CPT 45378; principal; 2020-10-23 07:10)
DX: K29.70 Gastritis, unspecified, without bleeding (principal); K57.30 Diverticulosis of large intestine without perforation or abscess without bleeding; K21.9 Gastro-esophageal reflux disease without esophagitis; D12.2 Benign neoplasm of ascending colon; K64.8 Other hemorrhoids; Z20.828 Contact with and (suspected) exposure to other viral communicable diseases; J45.909 Unspecified asthma, uncomplicated; F41.8 Other specified anxiety disorders; K58.9 Irritable bowel syndrome, unspecified; G47.30 Sleep apnea, unspecified; Z86.2 Personal history of diseases of the blood and blood-forming organs and certain disorders involving the immune mechanism; Z86.19 Personal history of other infectious and parasitic diseases; Z87.442 Personal history of urinary calculi; Z79.899 Other long term (current) drug therapy
CPT/HCPCS: 43239; 45380; 87426; 88305; 88342; J7120; J2405

== ENCOUNTER → 2020-12-02 08:13 | Outpatient (CLI) | payer OTHER, SELFPAY ==
--- NOTE | 2020-12-02 08:16 | CT_ITS ---
STUDY: CT CHEST WITH CONTRAST REASON FOR EXAM: Female, 40 years old. BENIGN NEOPLASM OF COLON. STAGING. MYOCARDITIS FROM COVUT RADIATION DOSAGE (If Supplied By Facility): CTDIvol = ( 11.15 ) mGy, DLP = ( 1035.97 ) mGycm TECHNIQUE: Transaxial imaging was performed following intravenous administration of 100 ML ISOVUE 370. Multiplanar coronal and sagittal images were reformatted. Individualized dose optimization techniques were used for this CT. COMPARISON: Comparison is made with prior study dated 04/16/2020. FINDINGS: The previously seen bilateral pulmonary infiltrates have cleared. There is no demonstrated pleural abnormality. Normal heart and pericardium. Normal mediastinum. Normal hilar regions. Normal enhanced pulmonary arteries. Normal aorta arch and descending thoracic aorta. Normal osseous structures. There is no demonstrated abnormality of the visualized upper abdomen. CT/Chest WITH Contrast IMPRESSION: The lungs are now clear. Electronically Signed: Nabil Talley, at 9:25 EST , Service support ,
--- NOTE | 2020-12-02 08:16 | CT_ITS ---
STUDY: CT ABDOMEN AND PELVIS WITH CONTRAST REASON FOR EXAM: Female, 40 years old. BENIGN MASS FOUND IN CECUM-STAGING RADIATION DOSAGE (If Supplied By Facility): CTDIvol = ( 11.15 ) mGy, DLP = ( 1035.97 ) mGycm TECHNIQUE: Transaxial images were obtained from the dome of the diaphragm to the symphysis pubis without oral contrast. 100 ML ISOVUE 370 was administered. Sagittal and coronal images were reconstructed. Individualized dose optimization techniques were used for this CT. COMPARISON: None. FINDINGS: The visualized lung bases are unremarkable. The visualized portions of the heart are within normal limits. There is decreased attenuation of the liver consistent with steatosis. Normal gallbladder and extrahepatic biliary system. 7 mm cyst in the peripheral lateral aspect of the superior aspect of the spleen. Normal pancreas. Normal bilateral adrenal glands. Stable small cyst in the medial aspect of the right kidney. Stable 1.4 cm cyst in the lower pole of the left kidney. Stable tiny nonobstructive calculi in the lower pole of the left kidney. Normal visualized stomach. Normal small intestine. There are scattered colonic diverticula consistent with diverticulosis. The appendix is visualized and appears normal. Normal abdominal aorta. Normal inferior vena cava. Normal retroperitoneum. Normal urinary bladder. Prominent uterus. 2 small cysts are seen in the right ovary. The larger measures 2.4 cm. Minimal amount of free fluid is seen in the pelvis. Evidence of prior tubal ligation. A metallic clip is seen in the right side of the presacral space. Normal abdominal wall. Spondylolysis of the pars interarticularis of the L5 vertebrae with minimal anterior listhesis of L5 on S1. CT/Abdomen/Pelvis WITH Contrast IMPRESSION: 2 small cysts are seen in the right ovary. Prominent uterus. Small amount of free fluid is seen in the cul-de-sac. Electronically Signed: Nabil Talley, at 9:11 EST , Service support ,
== END ==
PROVIDERS: PCP Student in an Organized Health Care Education/Training Program
DX: D36.9 Benign neoplasm, unspecified site (principal)
CPT/HCPCS: 71260; 74177; Q9967

== ENCOUNTER 2021-01-11 09:40 | Emergency (ER) | payer OTHER, SELFPAY ==
[2020-12-23 10:50] VITALS: BMI 30.9
[2021-01-11 09:41] VITALS: BP 130/78; PULSE 93; RESP 22; TEMP 36.2; O2SAT 96; BMI 29.9
--- NOTE | 2021-01-11 09:56 | CT_ITS ---
STUDY: CT ABDOMEN AND PELVIS WITH CONTRAST REASON FOR EXAM: Female, 40 years old. Lower abdomen pain, recent partial right colectomy (2 weeks ago) for benign cecal mass. Prior tubal ligation. RADIATION DOSAGE (If Supplied By Facility): CTDIvol = ( 11.87 ) mGy, DLP = ( 897.61 ) mGycm TECHNIQUE: Transaxial images were obtained from the dome of the diaphragm to the symphysis pubis without oral contrast. IV 100mL Isovue-300 was administered. Sagittal and coronal images were reconstructed. Individualized dose optimization techniques were used for this CT. COMPARISON: Comparison is made with prior study dated 12/02/2020. FINDINGS: Mild increased widening of the lung bases suggestive of bibasilar atelectasis. The visualized portions of the heart are within normal limits. Normal liver. Normal gallbladder and extrahepatic biliary system. Normal spleen. Normal pancreas. Normal bilateral adrenal glands. Normal right kidney. Stable tiny nonobstructive calculi in the lower pole of the left kidney. Stable 1.4 cm cyst in the lower pole of the left kidney. Normal visualized stomach. Normal small intestine. The patient is status post right hemicolectomy. Increased markings are seen in the omental fat surrounding the hepatic flexure as well as the transverse colon. There is diffuse circumferential wall thickening of the hepatic flexure and transverse colon. This extends into the region of the splenic flexure. Colitis should be ruled out. The appendix is visualized and appears normal. Normal abdominal aorta. Normal inferior vena cava. Normal retroperitoneum. Normal urinary bladder. Small amount of free fluid is seen in the cul-de-sac. Evidence of prior tubal ligation. A small follicle is seen in the left ovary. Residual surgical sutures are seen in the mid abdominal wall with the subcutaneous changes most likely postoperative in nature. Stable anterior listhesis of L5 on S1 with spondylolysis of the pars interarticularis of the L5 vertebrae. CT/Abdomen/Pelvis W IV Cont ONLY IMPRESSION: Status post right hemicolectomy with postoperative changes in the surrounding peritoneal fat. Colitis involving the region of the hepatic flexure and the transverse colon and the splenic flexure. Mild thickening of the descending colon. Mild increased markings at the lung bases suggestive of atelectasis. Electronically Signed: Nabil Talley MD at 12:14 EST , Service support ,
--- NOTE | 2021-01-11 09:58 | ED.VIS.GEN ---
History of Present Illness Chief Complaint: Abd Pain Informant: Patient Onset: Days Context: Gradual Onset Timing: Continuous Current Severity: Moderate Maximum Severity: Severe Narrative: Patient is a 40-year-old female presents to the emergency department abdominal pain. Patient was found to have a mass near her cecum on outpatient imaging. She underwent a right-sided colectomy at [facility] by on the eighth of this month. She was in the hospital for 2 days afterwards. She states that she has been taking analgesics, but felt like her pain was improving. She has not had to take any for the past 3 days. She states over the past 2 days, she began to have increasing pain in her suprapubic area and to the left lower quadrant. She states that if she twists or moves, the pain worsens. She denies fevers or chills. She denies any vomiting. She states she is moving her bowels without issue. 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 Prior similar symptoms: Yes Recent Illness/Hospitalization: Yes Past Medical History - Allergies and Home Meds Allergies/Adverse Reactions: Allergies cephalexin monohydrate [From Keflex] Allergy (Verified 01/11/21 09:41) Rash clarithromycin [From Biaxin] Allergy (Verified 01/11/21 09:41) Rash metronidazole [From Flagyl] Allergy (Verified 01/11/21 09:41) Rash minocycline Allergy (Verified 01/11/21 09:41) Rash Penicillins Allergy (Verified 01/11/21 09:41) VISHNU MOSQUEDA'S citalopram hydrobromide [From Celexa] Adverse Reaction (Verified 01/11/21 09:41) Nausea/Vom/Diarrhea ENTEX Adverse Reaction (Uncoded 01/11/21 09:41) TACHYCARDIA Primary Care Physician: To Longoria DO [Primary Care Provider] - Prior records reviewed: Yes Past Medical History: - - Myocarditis, anxiety Surgical History: colectomy Smoking Status: Never smoker Review of Systems General: Denies: Chills, Fever, Sweats Eyes: Denies: Visual changes - bilaterally, Diplopia ENT: Denies: Rhinorrhea, Sore throat Cardiovascular: Denies: Chest pain, Palpitations Respiratory: Denies: Dyspnea, Cough, Dyspnea on exertion Gastrointestinal: Reports: Abdominal pain. Denies: Nausea, Vomiting, Diarrhea, Melena, Hematochezia Genitourinary: Denies: Dysuria, Hematuria, Frequency Musculoskeletal: Denies: Back pain, Extremity Pain Skin: Denies: Rash, Wounds Neurological: Denies: Headache, Weakness, Numbness Physical Exam Vital Signs/Narrative: Vital Signs Temp Pulse Resp BP Pulse Ox 01/11/21 09:41 97.1 F L 93 22 H 130/78 H 96 Inital Vital Signs reviewed: Yes General: Well nourished, Well developed, No Acute Distress Head: Normocephalic, Atraumatic Eyes: Perrl, EOMI ENT: Moist mucous membranes, No rhinorrhea Neck: Supple, Nontender Cardiovascular: Regular rate, Regular rhythm, No murmurs Respiratory: No distress, CTA bilaterally, Chest nontender Abdomen: Soft, Nondistended, Normal bowel sounds, Tender, - - Patient's incision is clean, dry, and intact. She is tender at the distal aspect of her incision into the left lower quadrant. There is some voluntary guarding.. Negative for: Guarding, Rebound tenderness Back: Nontender, Normal Inspection Extremities: Nontender, No edema Skin: Normal color, No rash Neurological: Alert, Oriented x3, Cranial nerves II-XII grossly intact, Normal Strength, Normal Sensation Psychological: Normal affect, Normal Mood Diagnostic/Tx/Re-eval Clinical Impression(s) from Imaging Studies Abdomen/Pelvis CT 01/11/21 09:56 IMPRESSION: Status post right hemicolectomy with postoperative changes in the surrounding peritoneal fat. Colitis involving the region of the hepatic flexure and the transverse colon and the splenic flexure. Mild thickening of the descending colon. Mild increased markings at the lung bases suggestive of atelectasis. Electronically Signed: Nabil Talley MD at 12:14 EST , Service support , Abnormal Lab Results 01/11/21 01/11/21 01/11/21 10:25 10:25 10:25 WBC 8.2 RBC 3.95 L Hgb 10.7 L Hct 34.4 L MCV 87.1 MCH 27.1 MCHC 31.1 L RDW Std Deviation 42.7 RDW Coeff of Ilya 13.3 Plt Count 360 MPV 10.3 Immature Gran % (Auto) 0.500 Neut % (Auto) 68.2 Lymph % (Auto) 19.1 [place] % (Auto) 5.9 Eos % (Auto) 5.6 H Baso % (Auto) 0.7 Absolute Neuts (auto) 5.6 Absolute Lymphs (auto) 1.57 Nucleated RBC % 0 Sodium 136 Potassium 3.8 Chloride 103 Carbon Dioxide 27.0 Anion Gap 6 BUN 19 H Creatinine 0.66 Estim Creat Clear Calc 79.76 Est GFR (MDRD) Af Amer 125 Est GFR (MDRD) Non-Af 104 BUN/Creatinine Ratio 28.6 H Glucose 84 Lactic Acid 0.8 Calcium 8.9 Total Bilirubin 0.60 AST 12 L ALT 17 Alkaline Phosphatase 121 H Total Protein 7.6 Albumin 3.6 Globulin 4.0 Albumin/Globulin Ratio 0.9 Urine Color Urine Clarity Urine pH Ur Specific [place] Urine Protein Urine Glucose (UA) Urine Ketones Urine Occult Blood Urine Nitrite Urine Bilirubin Urine Urobilinogen Ur Leukocyte Esterase Urine RBC Urine WBC Ur Squamous Epith Cells Urine Bacteria Urine Mucus 01/11/21 11:10 WBC RBC Hgb Hct MCV MCH MCHC RDW Std Deviation RDW Coeff of Ilya Plt Count MPV Immature Gran % (Auto) Neut % (Auto) Lymph % (Auto) [place] % (Auto) Eos % (Auto) Baso % (Auto) Absolute Neuts (auto) Absolute Lymphs (auto) Nucleated RBC % Sodium Potassium Chloride Carbon Dioxide Anion Gap BUN Creatinine Estim Creat Clear Calc Est GFR (MDRD) Af Amer Est GFR (MDRD) Non-Af BUN/Creatinine Ratio Glucose Lactic Acid Calcium Total Bilirubin AST ALT Alkaline Phosphatase Total Protein Albumin Globulin Albumin/Globulin Ratio Urine Color Yellow Urine Clarity Clear Urine pH 7.0 Ur Specific [place] 1.005 Urine Protein Negative Urine Glucose (UA) Normal Urine Ketones Negative Urine Occult Blood 25 H Urine Nitrite Negative Urine Bilirubin Negative Urine Urobilinogen Normal Ur Leukocyte Esterase Negative Urine RBC 0 SEEN Urine WBC 0 SEEN Ur Squamous Epith Cells 0-5 SEEN Urine Bacteria 1+ Urine Mucus 0 SEEN - Medical Decision Making The patient presents with abdominal pain. It is acutely worsened over the past 24 hours. It is mostly in the left lower quadrant and deep into the left pelvis. She states is worse when she twists or moves. Her incision is clean, dry, and intact. There does appear to be a seroma, but no evidence of drainage or cellulitis. IV was established. Patient was given analgesics with improvement of her pain. Lab work-up was unremarkable. Patient underwent CT. There was concern for colitis along the transverse colon, but the patient has not had any diarrhea that has worsened. She has no tenderness here. There is some free fluid in the pelvis and a small cyst on the left ovary. With the acute onset of her pain, my suspicion is this is likely cyst related. I did discuss the patient with the nurse practitioner for her surgeon at [facility]. She is scheduled to be seen tomorrow. The patient will be given a short course of analgesics. Given her pain and recent colectomy, I did not feel that the benefit of a transvaginal ultrasound would be of high utilization. My suspicion that she has true colitis is very low. I do feel that this is likely just postoperative change consistent with her recent colectomy. She has follow-up in less than 24 hours. The patient is comfortable with this plan of care. Impression 1. Postoperative abdominal pain 2. Ruptured left ovarian cyst ED Disposition - Plan for ED Patient: Disposition: Home or Assisted Living Instructions: ED Ovarian Cyst, ED Post Op Wound Check, Pain Prescriptions: Hydrocodone Bitart/Apap 5-325 [[place] 5MG-325MG] 1 tab PO Q6H PRN PRN 3 Days #10 tab PRN Reason: Pain Prescription Printed Ondansetron [Zofran Odt] 4 mg PO Q8H PRN PRN #10 tab PRN Reason: Nausea Prescription Printed Referrals: To Longoria DO [Primary Care Provider] -
[2021-01-11 10:45] LABS: Absolute Lymphocyte Count 1.57 X10^3/uL (0.83-4.51); Absolute Neutrophil Count 5.6 X10^3/uL (2.0-7.7); Basophil# 0.06 X10^3/uL; Basophil% 0.7 % (0-1); Eosinophil# 0.46 X10^3/uL; Eosinophils% 5.6 % (0-5); Hematocrit 34.4 % (37-47); Hemoglobin 10.7 g/dL (12.0-15.0); Lymphocyte # 1.57 X10^3/ul (4.0); Lymphocyte % 19.1 % (19-41); Mean Corp Hgb Conc 31.1 g/dL (32-36); Mean Corpuscular Hgb 27.1 pg (27.0-32.0); Mean Corpuscular Volume 87.1 fL (81-99); Mean Platelet Vol. 10.3 fl (6.2-12.0); Monocyte# 0.49 X10^3/uL; Monocyte% 5.9 % (0-10); NRBC Flagged by Analyzer 0 % (0-5); Neutrophil # 5.62 X10^3/uL (2.7-7.7); Neutrophil % 68.2 % (47-70); Platelet Count 360 K/mm3 (150-450); RBC Distribution Width CV 13.3 % (11.6-14.6); RBC Distribution Width SD 42.7 fl (35.1-43.9); Red Blood Count 3.95 M/mm3 (4.2-5.4); White Blood Count 8.2 K/mm3 (4.4-11.0)
[2021-01-11] MEDS: 0.9% Normal Saline 1,000 ML 1000 ML IV (10:54)
[2021-01-11] MEDS: Morphine 4 MG/ML Syringe IV ×3 (10:54→12:50)
[2021-01-11] MEDS: Ondansetron 4 MG/2 ML Vial IV (10:54)
[2021-01-11 11:00] LABS: ALB/GLOB Ratio 0.9 RATIO (0.9-2.4); AST(SGOT) 12 U/L (15-37); Alanine Aminotransfer ALT/SGPT 17 U/L (13-56); Albumin, Serum 3.6 g/dL (3.2-5.0); Alkaline Phosphatase 121 U/L (45-117); Anion Gap 6 (5-15); BUN 19 mg/dL (7-18); BUN/Creat Ratio 28.6 RATIO (10-20); Calcium,Total 8.9 mg/dL (8.5-10.1); Chloride 103 mmol/L (98-107); Creatinine, Serum 0.66 mg/dL (0.55-1.02); EST Glomerular Filtration Rate 104 mL/min (>60); Est Glom Filt Rate - Afr Amer 125 mL/min (>60); Estimated Creatinine Clearance 79.76 ml/min; Glucose 84 mg/dL (74-106); Potassium 3.8 mmol/L (3.5-5.1); Protein, Total 7.6 g/dL (6.4-8.2); Sodium Level 136 mmol/L (136-145)
[2021-01-11 11:11] LABS: Lactic Acid 0.8 mmol/L (0.4-1.9)
[2021-01-11 11:18] VITALS: BP 121/61; PULSE 73; RESP 18; TEMP 36.4; O2SAT 100
[2021-01-11 11:18] LABS: Mucous, Urine 0 SEEN /hpf (<or=2+); Red Blood Cells-Urine 0 SEEN /hpf (0-5); White Blood Cells 0 SEEN /hpf (0-5)
[2021-01-11 11:37] LABS: Color, Urine Yellow (Yellow); Glucose, Dipstick Normal (Normal); Ketone-Dipstick Negative (Negative); Leukocyte Esterase-Dipstick Negative /ul (Negative); Nitrite-Dipstick Negative (Negative); Occult Blood-Urine 25 /ul (Negative); Protein-Dipstick Negative (Negative); Specific Gravity, Urine 1.005 (1.002-1.030); Urine Bilirubin Dipstick Negative (Negative); Urine Clarity Clear (Clear); Urine Urobilinogen Normal (Normal)
[2021-01-11 11:58] LABS: Bacteria 1+ /hpf (None Seen); Squamous Epithelial Cells - UA 0-5 SEEN /hpf (5-10)
[2021-01-11 12:07] VITALS: BP 110/70; PULSE 76; RESP 18; O2SAT 96
[2021-01-11 13:04] VITALS: BP 116/68; PULSE 76; RESP 17; O2SAT 99
== END 2021-01-11 13:05 | disposition home or self-care (01) ==
LOC: ED 10:39
PROVIDERS: Emergency Provider Emergency Medicine; PCP Student in an Organized Health Care Education/Training Program
DX: R10.32 Left lower quadrant pain (principal); Z90.49 Acquired absence of other specified parts of digestive tract; N83.202 Unspecified ovarian cyst, left side; F41.9 Anxiety disorder, unspecified; Z79.899 Other long term (current) drug therapy
CPT/HCPCS: 74177; 80053; 81001; 83605; 85025; 96361; 96374; 96375; 96376; 99284; J7030; Q9967; A4216; J2405

== ENCOUNTER → 2021-02-17 09:53 | Outpatient (CLI) | payer OTHER, SELFPAY ==
--- NOTE | 2021-02-17 09:58 | US_ITS ---
INDICATION: CYST OF SPLEEN EXAMINATION: Ultrasound US Abdomen Limited (quadrant) TECHNIQUE: Hill scale and color doppler imaging was performed of the spleen. COMPARISON: None. FINDINGS: The spleen measures 9.4 cm x 3.2 cm x 3.2 cm. The spleen is homogeneous. There is no perisplenic ascites. US/Spleen IMPRESSION: Negative splenic ultrasound. Electronically Signed: Nabil Talley MD at 15:04 EDT , Service support ,
--- NOTE | 2021-02-17 12:21 | US_ITS ---
STUDY: ULTRASOUND OF THE FEMALE PELVIS - COMPLETE REASON FOR EXAM: Female, 40 years old. Cyst . Heavy periods. LMP: 02/14/2021 TECHNIQUE: Transabdominal and Transvaginal TECHNICAL QUALITY: Adequate. COMPARISON: None. FINDINGS: The uterus is anteverted and is in a midline position. The uterus measures 9.1 cm x 4.7 cm x 3.7 cm. Normal uterine cervix. The endometrium measures 9 mm in thickness, and is hyperechoic. There is no demonstrated endometrial mass. There is a 1.1 cm x 0.7 cm x 0.9 cm fundal fibroid. I.U.D. - The patient does not have an I.U.D. The right ovary is visualized. The right ovary measures 2.5 cm x 2.2cm x 1.1 cm. Right ovarian follicles are seen. There is no visualized right adnexal mass or complex lesion. There is normal arterial and normal venous vascularity. The left ovary is visualized. The left ovary measures 2.5 cm x 2 cm x 1.2 cm. Left ovarian follicles are seen. There is no visualized left adnexal mass or complex lesion. There is normal arterial and normal venous vascularity. There is no fluid in the cul-de-sac. US/Transvaginal Non- IMPRESSION: Small uterine fibroid. Bilateral ovarian follicles. Electronically Signed: Nabil Talley MD at 14:55 EDT , Service support ,
--- NOTE | 2021-02-17 12:21 | US_ITS ---
STUDY: ULTRASOUND OF THE FEMALE PELVIS - COMPLETE REASON FOR EXAM: Female, 40 years old. Cyst . Heavy periods. LMP: 02/14/2021 TECHNIQUE: Transabdominal and Transvaginal TECHNICAL QUALITY: Adequate. COMPARISON: None. FINDINGS: The uterus is anteverted and is in a midline position. The uterus measures 9.1 cm x 4.7 cm x 3.7 cm. Normal uterine cervix. The endometrium measures 9 mm in thickness, and is hyperechoic. There is no demonstrated endometrial mass. There is a 1.1 cm x 0.7 cm x 0.9 cm fundal fibroid. I.U.D. - The patient does not have an I.U.D. The right ovary is visualized. The right ovary measures 2.5 cm x 2.2cm x 1.1 cm. Right ovarian follicles are seen. There is no visualized right adnexal mass or complex lesion. There is normal arterial and normal venous vascularity. The left ovary is visualized. The left ovary measures 2.5 cm x 2 cm x 1.2 cm. Left ovarian follicles are seen. There is no visualized left adnexal mass or complex lesion. There is normal arterial and normal venous vascularity. There is no fluid in the cul-de-sac. US/Pelvic (Non ) IMPRESSION: Small uterine fibroid. Bilateral ovarian follicles. Electronically Signed: Nabil Talley MD at 14:55 EDT , Service support ,
--- NOTE | 2021-02-17 12:21 | US_ITS ---
STUDY: RENAL ULTRASOUND - COMPLETE REASON FOR EXAM: Female, 40 years old. KIDNEY CYST TECHNIQUE: Ultrasound evaluation of the kidneys was performed with real-time and static cotter-scale imaging. COMPARISON: Comparison is made with prior examination dated 11/14/2019. FINDINGS: RIGHT KIDNEY: Normal location of the right kidney, which is normal in size. The right kidney measures 10 cm x 5.17 x 4.5 cm. There is a normal cortex of the right kidney. The renal cortex measures 1.4 cm. 2 right renal cysts are seen. The larger measures 1.1cm x 1.2 cm x 1.1 cm. 6 mm intrarenal calculus. There is no right hydronephrosis. DISTAL RIGHT URETER: There is non-visualization of the distal right ureter. There is no demonstrated right ureterovesical junction calculus. There is a visualized right ureteral jet. LEFT KIDNEY: Normal location of the left kidney, which is normal in size. The left kidney measures 9.9 cm x 4 cm x 5.4 cm. There is a normal cortex of the left kidney. The renal cortex measures 1.7 cm. 2 small left renal cysts are seen. The larger measures 1 cm x 1.3 cm x 1 cm. There is a 5 mm left renal calculus. There is no left hydronephrosis. DISTAL LEFT URETER: There is non-visualization of the distal left ureter. There is no demonstrated left ureterovesical junction calculus. There is a visualized left ureteral jet. BLADDER: The distended urinary bladder has a volume of 156 ml. There is a normal wall thickness of the distended urinary bladder. There is no demonstrated mass within the urinary bladder. There are no demonstrated bladder calculi. US/Kidney and Bladder IMPRESSION: Bilateral renal cysts. Bilateral nonobstructive intrarenal calculi. Electronically Signed: Nabil Talley MD at 14:45 EDT , Service support ,
== END ==
PROVIDERS: PCP Student in an Organized Health Care Education/Training Program; Referring Provider Student in an Organized Health Care Education/Training Program; Visit Provider Student in an Organized Health Care Education/Training Program
DX: N28.1 Cyst of kidney, acquired (principal); D73.4 Cyst of spleen; E88.89 Other specified metabolic disorders
CPT/HCPCS: 76705; 76770; 76830; 76856

== ENCOUNTER → 2021-04-30 09:32 | Outpatient (CLI) | payer OTHER, SELFPAY ==
[2021-04-20 13:47] VITALS: BMI 29.5
--- NOTE | 2021-04-30 10:00 | RAD_ITS ---
STUDY: X-RAY CHEST REASON FOR EXAM: Female, 40 years old. PRE OP EXAM TECHNIQUE: PA and lateral views of the chest. COMPARISON: Comparison is made with prior study dated 03/24/2020. FINDINGS: The lungs are clear and expanded. There is no demonstrated pleural abnormality. Normal size heart. Normal mediastinum and beatris. Normal visualized pulmonary arteries. Normal visualized aortic arch and descending thoracic aorta. Normal visualized thoracic spine. Normal visualized ribs, clavicles, and shoulders. There is no demonstrated abnormality of the visualized soft tissue structures of the upper abdomen. RAD/Chest PA and Lateral IMPRESSION: Normal x-ray examination of the chest. Electronically Signed: Nabil Talley MD at 13:06 EDT , Service support ,
[2021-04-30 10:04] LABS: Absolute Lymphocyte Count 1.57 X10^3/uL (0.83-4.51); Absolute Neutrophil Count 3.2 X10^3/uL (2.0-7.7); Basophil# 0.04 X10^3/uL; Basophil% 0.7 % (0-1); Eosinophil# 0.19 X10^3/uL; Eosinophils% 3.5 % (0-5); Hematocrit 39.4 % (37-47); Hemoglobin 12.6 g/dL (12.0-15.0); Lymphocyte # 1.57 X10^3/ul (0.83-4.51); Lymphocyte % 29.1 % (19-41); Mean Corpuscular Hgb 28.1 pg (27.0-32.0); Mean Corpuscular Volume 87.9 fL (81-99); Mean Platelet Vol. 11.1 fl (6.2-12.0); Monocyte# 0.35 X10^3/uL; Monocyte% 6.5 % (0-10); NRBC Flagged by Analyzer 0 % (0-5); Neutrophil # 3.23 X10^3/uL (2.7-7.7); Platelet Count 254 K/mm3 (150-450); RBC Distribution Width CV 14.1 % (11.6-14.6); RBC Distribution Width SD 45.1 fl (35.1-43.9); Red Blood Count 4.48 M/mm3 (4.2-5.4); White Blood Count 5.4 K/mm3 (4.4-11.0)
[2021-04-30 10:32] LABS: T3 Total - Triiodothyronine 0.97 ng/mL (0.6-1.81); Vitamin D,25 Hydroxy 38.4 ng/mL
[2021-04-30 10:40] LABS: ALB/GLOB Ratio 1.1 RATIO (0.9-2.4); AST(SGOT) 13 U/L (15-37); Alanine Aminotransfer ALT/SGPT 20 U/L (13-56); Alkaline Phosphatase 110 U/L (45-117); Anion Gap 7 (5-15); BUN 18 mg/dL (7-18); BUN/Creat Ratio 21.2 RATIO (10-20); Calcium,Total 8.8 mg/dL (8.5-10.1); Chloride 107 mmol/L (98-107); Cholesterol 210 mg/dL (200); Creatinine, Serum 0.85 mg/dL (0.55-1.02); EST Glomerular Filtration Rate 78 mL/min (>60); Est Glom Filt Rate - Afr Amer 94 mL/min (>60); Globulin 3.7 g/dL (2.2-4.2); Glucose 86 mg/dL (74-106); High Density Lipoprotein 56 mg/dL; Magnesium 2.2 mg/dL (1.6-2.6); Potassium 3.9 mmol/L (3.5-5.1); Protein, Total 7.7 g/dL (6.4-8.2); Sodium Level 141 mmol/L (136-145); T4 Free Direct 1.12 ng/dL (0.76-1.46); Thyroid Stim Hormone (TSH) 0.72 uIU/mL (0.358-3.74); Triglycerides 76 mg/dL; Very Low Density Lipoprotein 15 mg/dL (5-40)
== END ==
PROVIDERS: PCP Student in an Organized Health Care Education/Training Program; Visit Provider Registered Nurse
DX: Z01.818 Encounter for other preprocedural examination (principal); R94.6 Abnormal results of thyroid function studies
CPT/HCPCS: 36415; 71046; 80053; 80061; 82306; 83735; 84439; 84443; 84480; 85025

== ENCOUNTER 2021-05-18 17:46 | Observation (INO) | payer OTHER, SELFPAY ==
[2021-04-30 11:19] VITALS: BMI 29.7
[2021-05-18] VITALS (15 sets, daily range): BP systolic 90–120; BP diastolic 49–78; PULSE 68–113; RESP 14–18; TEMP 37.1–37.4; O2SAT 95–100; BMI 30.1
--- NOTE | 2021-05-18 | HYST_PTH ---
PATIENT: ISAK QUEEN LOC: MS3 U#:[id number] AGE/SX: 40/F ROOM: MS312 RE05/18/[address]: Dr. Brianna Garrison MD : 1980 BED: 1 DIS: 05/19/2021 SPEC #: [id number] RECD: 05/18/21 15:35 STATUS: MALIA LIN #: [id number] RENATE: 05/18/21 00:[address]: Brianna Garrison DEPT: SURGICAL PATHOLOGY RECD BY: Martinez Bermudez ENTERED: 05/19/21 07:50 SP TYPE: HYSTERECT OTHR DR: Dr. To Longoria DO Tissues: Uterus, NOS Procedures: Surgery Specimen Level V HEADER OPERATION: ERAS, hysterectomy, laparoscopic assisted vaginal PRE-OP DIAGNOSIS: Menorrhagia TISSUE SUBMITTED: Uterus, cervix, bilateral fallopian tubes, left ovary MICROSCOPIC DIAGNOSIS Uterus, cervix, bilateral fallopian tubes and left ovary, hysterectomy, bilateral salpingectomy and left oophorectomy: Cervix ? chronic inflammation and squamous metaplasia. Endometrium ? secretory endometrium. Myometrium ? intramural leiomyomas (largest measuring 1 cm in diameter). - Adenomyosis. Bilateral fallopian tubes - no pathologic diagnosis. Left ovary ? physiologic follicular cysts. SJ:rg 05/20/2021 MICROSCOPIC DESCRIPTION Slides are reviewed. GROSS DESCRIPTION Received in fixative is one container labeled with the patient's name and designated uterus, cervix, bilateral fallopian tubes and left ovary. The specimen consists of a hysterectomy specimen consisting of uterus with cervix, attached bilateral fallopian tubes and left ovary. The uterus with cervix weighs 91 gm and measures 9 x 7 x 4 cm. The serosal surface is del angel, glistening. The ectocervical mucosa is unremarkable. The external os is circular in contour. The endocervical canal measures 3.5 cm in length and the endocervical mucosa is del angel, glistening and unremarkable. The triangular endometrial cavity measures 4.5 cm in length and up to 2.5 cm in width. The endometrium is del angel, glistening without any mass lesion and measures 0.2 cm in thickness. Sections of the uterine wall reveal multiple nodular masses. The largest mass measures 1 cm in diameter. Sections of these masses reveal del angel whorled cut surfaces without areas of hemorrhage, necrosis or cystic degeneration. The uterine wall measures up to 2.5 cm in thickness. The right fallopian tube measures 5 cm in length and 0.5 cm in diameter. The fimbrial end is identified. Sections reveal unremarkable cut surfaces. The proximal portion of fallopian tube also shows a Filshie clip which appears intact. The left fallopian tubes measures 6 cm in length and 0.5 cm in diameter. The fimbrial end is identified. No tubo-ovarian adhesions are noted. The left ovary measures 2.5 x 1.5 x 1 cm. Sections reveal multiple cysts filled with clear to hemorrhagic fluid. The largest cyst measures 0.5 cm in greatest dimension. A corpus luteum is also noted measuring 0.5 cm in greatest dimension. Bookmobile Clerk sections are submitted in ten cassettes as follows: 1 - anterior cervix, 2??posterior cervix, 3 & 4 - anterior uterine wall, largest nodular mass, 5 & 6 - posterior uterine wall, 7??additional nodular masses, 8 - right fallopian tube, 9 - left fallopian tube and ovary, 10 - more sections of left ovary. / BRIDGETTE:rg 05/19/21 TC:1 CPT: 94698
[2021-05-18 09:45] LABS: Internal QC Validated? YES +Cl - CLEAR BKGD; Pregnancy, Urine Negative Negative
[2021-05-18] MEDS: dexAMETHasone 10 MG/ML Vial 8 MG IV (09:57)
[2021-05-18] MEDS: Scopolamine 1mg/72hr Patch 1 PATCH TD (09:59)
[2021-05-18] MEDS: Enoxaparin 40 MG/0.4 ML Syringe SC (09:59)
[2021-05-18] MEDS: Acetaminophen 500 MG Tablet 1000 MG PO ×3 (10:00→23:01)
[2021-05-18] MEDS: Gabapentin 600 MG Tablet PO (10:00)
[2021-05-18] MEDS: Celecoxib 200 MG Capsule 400 MG PO (10:00)
[2021-05-18] MEDS: Lactated Ringers 1,000 ML 40 ML IV (10:02)
[2021-05-18] MEDS: Phenazopyridine 95 MG Tablet 190 MG PO (10:09)
--- NOTE | 2021-05-18 10:10 | HP.PCM_ITS ---
History and Physical Date of Admission: 05/18/21 Intake Vital Signs 04/30/21 11:19 Height 5 ft Weight: 152 lb BMI 29.7 BP 104/72 Intake Visit Reasons: discuss possible surgical intervention Allergies cephalexin monohydrate [From Keflex] Allergy (Verified 05/10/21 12:04) Rash clarithromycin [From Biaxin] Allergy (Verified 05/10/21 12:04) Rash metronidazole [From Flagyl] Allergy (Verified 05/10/21 12:04) Rash minocycline Allergy (Verified 05/10/21 12:04) Rash Penicillins Allergy (Verified 05/10/21 12:04) VISHNU MCCALL citalopram hydrobromide [From Celexa] Adverse Reaction (Verified 05/10/21 12:04) Nausea/Vom/Diarrhea guaifenesin [From Entex LA] Adverse Reaction (Verified 05/17/21 07:40) Other phenylephrine [From Entex LA] Adverse Reaction (Verified 05/17/21 07:40) Other phenylpropanolamine [From Entex LA] Adverse Reaction (Verified 05/17/21 07:40) Other Medications alprazolam 0.25 mg tablet 0.25 mg PO DAILY PRN 05/15/19 [History Confirmed 05/10/21] multivitamin with minerals 1 ea PO DAILY 09/02/19 [History Confirmed 05/10/21] cetirizine 10 mg capsule 10 mg PO DAILY 09/30/20 [History Confirmed 05/10/21] metoprolol succinate 25 mg tablet,extended release 24 hr 25 mg PO DAILY #30 tab 10/06/20 [Rx Confirmed 05/10/21] vilazodone 10 mg tablet 10 mg PO DAILY tab 10/12/20 [History Confirmed 05/10/21] bupropion HCl 300 mg PO DAILY 10/20/20 [History Confirmed 05/10/21] esomeprazole magnesium 40 mg capsule,delayed release 40 mg PO BID cap 12/23/20 [History Confirmed 05/10/21] albuterol sulfate 1 inh INHALATION Q6H PRN 05/10/21 [History Confirmed 05/10/21] mometasone [Nasonex] 2 spray INTRANASAL DAILY 05/10/21 [History Confirmed 05/10/21] lisinopril 2.5 mg tablet 2.5 mg PO DAILY #30 tab 05/12/21 [Rx] [facility] Medical History (Updated 05/18/21 @ 10:[address] Brianna Garrison MD) Alcohol use Anemia Anemia Anxiety Asthma Back pain Cardiology follow-up encounter Chronic cough Constipation CPAP (continuous positive airway pressure) dependence Depression Depression with anxiety Diarrhea Gastric reflux GERD (gastroesophageal reflux disease) History of hiatal hernia History of IBS History of irregular heartbeat History of renal disease History of severe acute respiratory syndrome coronavirus 2 (SARS-CoV-2) disease History of steroid therapy History of stress test Hx of echocardiogram IBS (irritable colon syndrome) Injury of head and neck Kidney stones Knee pain Menorrhagia with regular cycle Migraine headache neck and back pain Non-smoker Shingles Shortness of breath on exertion Sleep apnea Tachycardia Surgical History (Updated 05/10/21 @ 12:21 by Wanda Butts) H/O prior ablation treatment history cysto with stent insertion History of breast biopsy History of History of colectomy History of dilatation and curettage History of eye surgery History of wisdom tooth extraction Hx of colonoscopy Hx of tubal ligation Family History Grandmother Atrial fibrillation Hypertension Mother Hypertension Mitral valve prolapse Grandfather Cancer Esophageal cancer Social History Smoking Status: Never smoker alcohol intake: current alcohol intake frequency: holidays/special occasions only substance use type: does not use caffeine: Yes Type: other Number of servings: 1 what type of physical activity do you participate in: walking and bicycling frequency: 3-4 times per week seatbelt use: always do you feel safe at home: Yes 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 She had an endometrial placed in the past for heavy menses and has had persistent periods despite endometrial ablation however they are progressively getting heavier and painful. She has a large ventral hernia that is going to be repaired by Dr. ayala in the near future but wanted to know if she should have a hysterectomy before or after the procedure. Periods can be every 4 weeks and last 5 to 10 days. Tuil-gzb-zbamsiz pain medications provide little relief. Female Reproductive History Questions: sexually active: Yes, dyspareunia: No and PCB: No Menopausal Symptoms: No hot flashes, No night sweats, No weight change, No mood changes, No difficulty concentrating, No sleep problems and No change in libido Pregancy History 2 Elective abortions Hx Para 2 Spontaneous abortions Hx # Term Pregnancies Ectopic pregnancies Hx # Pregnancies Multiple births # of living children Past Pregnancies Del. Date Name GA/Weeks Outcome Route Bth Weight Infant Gen Labor Lgth Anesthesia Del [facility] Provider FOB Unknown Earle-2002 Unknown Ruy-2006 ROS Const Constitutional: Reports fatigue; Denies fever(s), headache(s), increased appetite, poor appetite, night sweats, weight gain or weight loss ENT ENT: Reports system reviewed and no additional complaints, except as documented Cardio Card: Denies chest pain Resp Resp: Denies cough or dyspnea GI GI: Reports as per HPI and abdominal pain; Denies constipation, nausea or vomiting : Reports as per HPI; Denies difficulty voiding, dysuria, hot flashes, nipple discharge, urinary frequency, urinary incontinence, urinary hesitancy, urinary urgency, vaginal discharge, vaginal dryness, vaginal odor or vaginal pruritus Musc Musc: Denies arthralgias, back pain or muscle weakness Skin Skin/Breast: Denies change in hair, breast mass, breast pain, breast skin changes or nipple discharge Neuro Neuro: Reports system reviewed and no additional complaints, except as documented Psych Psych: Reports system reviewed and no additional complaints, except as documented; Denies change in libido or difficulty concentrating Endo Endo: Denies cold intolerance, excessive sweating, heat intolerance or polydipsia Brenton/Lymph Hematologic/Lymphatic: Denies easy bleeding, Denies easy bruising and Denies lymphadenopathy Exam Const General: cooperative, healthy appearing, comfortable, no acute distress and well developed Nutritional Appearance: average body habitus Orientation: alert [facility] Head: normal to inspection and normocephalic Ears: hearing grossly normal bilaterally and external ears normal Nose: external nose normal and nares normal Face and sinus: normal facial exam Neck Neck: normal visual inspection and trachea midline Thyroid: thyroid normal Chest Chest palpation & inspection: normal inspection of the chest Resp Effort & Inspection: normal respiratory effort Auscultation: clear to auscultation bilaterally Cardio Rate: regular rate Rhythm: regular rhythm Heart Sounds: S1 normal and S2 normal GI Inspection: normal to inspection, distended and visible herniation Palpation: soft and no hepatosplenomegaly General: bladder normal to palpation External Female Exam: normal external appearance and normal appearance of the urethra Urethra: normal appearance of the urethra, normal palpation and no discharge Speculum Exam - Vagina: normal appearance of the vagina and normal vaginal discharge Speculum Exam - Cervix: normal appearance of the cervix and nontender Bimanual Exam- Vagina & Uterus: normal bimanual exam, uterine size normal, bladder normal to palpation, uterine shape normal, No tender, uterine mobility normal, consistency normal, normal palpation and non-tender Bimanual Exam- Adnexa, other: normal adnexae, adnexae mobile, no masses and normal Pelvic Support: normal Musc Other: gross motor intact no deficits, full bilateral strength Skin General: no rashes or lesions noted Neuro General: patient alert, patient awake, moves all extremities and no focal motor deficits Motor: muscle tone normal throughout Extrem General: normal to inspection and no pedal edema Psych Appearance: grossly normal Mental Status: mental status grossly normal Affect: normal affect Speech and Movement: speech and movement normal Coding Level of Care Code Off vis,est,level 5 Exam Problem Focused Diagnoses Menorrhagia with regular cycle N92.0 Assessment and Plan Assessment and Plan (1) Menorrhagia with regular cycle: Status: Chronic Comment: failed ablation. plan CATRACHITA BS. previous cs x 2 and previous right colectomy. large ventral hernia to be repaired by Dr ayala at a later date Plan: After discussing the patient's diagnosis and treatment plan options, patient wishes to proceed with surgical management. I have discussed with the patient the risks, benefits, and alternatives of the procedure which include but are not limited to risks of anesthesia, bleeding, infection, possible damage to bowel, bladder, or surrounding vasculature which could lead to additional surgery to evaluate any complications. Patient agrees to procedure and wishes to proceed. ACOG/uptodate references given for additional information regarding procedure. UPDATE- I have seen the patient and performed any clinically relevant updates to the history and physical exam. Brianna Garrison MD
[2021-05-18 11:31] LABS: Bedside Glucose 88 mg/dL (70-110)
--- NOTE | 2021-05-18 12:20 | PCM.OPRPT ---
Problems Associated Problem List Diagnoses (1) Menorrhagia with regular cycle: Report of Operation Date of Procedure: 05/18/21 Pre-Operative Diagnosis: AUB, see PL Post-Operative Diagnosis: same Surgery/Procedure Performed:: LAVHBS left oophorectomy technician inventory specialist: Aneesh Garber Type of Anesthesia: General Specimen's removed: uterus, tubes Drains: fong Estimated Blood Loss (mL): 100 Fluids Replaced: crystalloid Description of Procedure: Patient received preoperative antibiotics and SCDs were on preoperatively. Patient was taken back to the operating room and placed in the dorsal lithotomy position. General anesthesia was induced and patient was prepped and draped in normal sterile fashion. Uterine manipulator was placed inside the uterus and Fong catheter placed in the bladder. The umbilicus was grasped with towel clamps and an intraumbilical incision was made after injecting with quarter percent Marcaine and a Veress needle entered into the abdomen confirmed to be intra-abdominal with a low opening pressure. Abdomen was insufflated with CO2 gas and the Veress needle removed and the 5 mm trocar was placed under direct visualization without complication. Right and left lower quadrants were transilluminated and injected with quarter percent Marcaine and 5 mm ports placed under direct visualization. Pelvis was well visualized see operative findings for additional information. Bilateral fallopian tubes were identified and transected with the LigaSure device across the mesosalpinx to the level of the utero-ovarian ligament which was also transected with the LigaSure device. On the left side the IP ligament was transected to be able to also remove the left ovary surgically. The broad ligament was opened up by transecting the round ligament bilaterally and skeletonizing the uterine vessels bilaterally and creating a bladder flap using the LigaSure device. The uterine arteries were transected bilaterally with good visualization of the bladder and the ureters were seen to be inferior lateral to the operative area. Attention was then paid to the vaginal portion of the procedure and the cervix was grasped with Joshua clamps and circumferentially injected with dilute vasopressin. A circumferential incision was made and the vaginal mucosa was mobilized off posteriorly and the cul-de-sac entered into sharply and a longneck speculum placed. The anterior cul-de-sac was then identified and entered into sharply. The uterosacral ligaments were clamped cut and suture ligated with 0 Monocryl bilaterally followed by the cardinal ligaments which were clamped cut and suture ligated bilaterally with 0 Monocryl. The uterus serially descended and was removed without difficulty. Pelvic sidewall pedicles were checked and noted to have excellent hemostasis. The vaginal mucosa was reapproximated incorporating the posterior peritoneum. This was reapproximated using 0 Vicryl [id number] sutures. Excellent hemostasis was noted. The pelvis and cul-de-sac were well visualized and no significant active bleeding noted but some raw areas were seen on the peritoneum and therefore Jenniffer was applied. Pressure was taken down and the areas visualized and noted of excellent hemostasis. All ports were removed under direct visualization without complication and the abdomen was desufflated of air. The instruments were removed from the abdomen and the vaginal sweep was negative. Port sites on the abdomen were closed with 4-0 Monocryl interrupted sutures and Steri's and windows were applied. She was awoken and taken recovery in stable condition. Grafts/Implants Used: none Complications none Admit VTE Documentation VTE Present on Admission: No VTE Mechan Device Prophylaxis: SCD's VTE Pharm Prophylaxis ordered?: Yes Procedures Urinary/Genital 52xxx-59xxx: 20130 LAVH+BS/O <250gr Uterus
--- NOTE | 2021-05-18 12:26 | EX.PCM.DISCH ---
Discharge Instructions Procedure Hysterectomy, Vaginal Diet Discharge Diet: No restrictions Activity Discharge Activity: Return to Normal Activity, May Not Drive (while taking narcotic pain medications.) and May Shower May resume sexual activity in: 6-8 weeks Dressing / Incision Call your doctor if your incision/area has: Continuous Slow Oozing, Sudden Increased Bleeding, Increased Pain/ Swelling, Increased Redness and Foul Smelling Discharge Call your doctor if you observe: Fever of 101 or Higher, Inability to urinate, Inability to have a bowel movement and Using more than 1 pad per hour Follow Up Care Please Follow Up With: Brianna Garrison MD Test Results: Test results from this visit will be discussed in further detail at your follow-up appointment, if applicable. Discharge Plan Admission Primary Reason for Your Visit: hysterectomy Attending Provider: Brianna Garrison Primary Care Provider: To Longoria Discharge Orders/Prescriptions Prescriptions: New naproxen 250 MG tablet 250 - 500 mg PO Q8H PRN PRN (Reason: MILD PAIN) Qty: 30 RF: 1 oxycodone-acetaminophen [Endocet] 5-325 mg tablet 1 tab PO Q4H PRN (Reason: pain) 7 Days Qty: 20 RF: 0 Continued alprazolam [Xanax] 0.25 mg tablet 0.25 mg PO DAILY PRN (Reason: Anxiety) RF: 0 Viibryd 10 mg tablet 20 mg PO DAILY RF: 0 esomeprazole magnesium [Nexium] 40 mg capsule,delayed release(DR/EC) 40 mg PO BID RF: 0 Zyrtec 10 mg capsule 10 mg PO DAILY RF: 0 multivitamin with minerals 1 EACH tablet 1 ea PO DAILY RF: 0 bupropion HCl 150 MG tablet extended release 24 hr 300 mg PO DAILY RF: 0 mometasone [Nasonex] 50 mcg/actuation [place],Non-Aerosol 2 spray INTRANASAL DAILY RF: 0 albuterol sulfate 90 mcg/actuation Hfa Aerosol Inhaler 1 inh INHALATION Q6H PRN (Reason: sob) RF: 0 metoprolol succinate [Toprol XL] 25 mg tablet extended release 24 hr 25 mg PO DAILY Qty: 30 RF: 11 lisinopril 2.5 mg tablet 2.5 mg PO DAILY Qty: 30 RF: 11 Referrals / Follow Up: To Longoria DO [Primary Care Provider] - Brianna Garrison MD [STAFF PHYSICIAN] - Disposition Disposition (needs filled in before D/C Order can be placed): Home, Self Care
[2021-05-18] MEDS: Ondansetron 4 MG/2 ML Vial IV (13:26)
[2021-05-18] MEDS: Ketorolac 30 MG/ML Syringe IV ×2 (14:59→23:02)
[2021-05-18] MEDS: Lactated Ringers 1,000 ML 70 ML IV (15:38)
[2021-05-18] MEDS: oxyCODONE 5 MG Tablet PO ×2 (16:43→20:51)
[2021-05-18] MEDS: Docusate Sodium 100 MG Capsule PO (23:02)
[2021-05-18] MEDS: Pantoprazole Sodium 40 MG Tablet PO (23:02)
[2021-05-19 02:36] VITALS: BP 98/53; PULSE 77; RESP 16; TEMP 36.8; O2SAT 98
[2021-05-19] MEDS: Ketorolac 30 MG/ML Syringe IV (05:30)
[2021-05-19] MEDS: Acetaminophen 500 MG Tablet 1000 MG PO ×2 (05:30→11:36)
[2021-05-19] MEDS: Lactated Ringers 1,000 ML 70 ML IV (05:31)
[2021-05-19 06:05] LABS: Hematocrit 34.8 % (37-47); Hemoglobin 11.1 g/dL (12.0-15.0); Mean Corp Hgb Conc 31.9 g/dL (32-36); Mean Corpuscular Hgb 28.7 pg (27.0-32.0); Mean Corpuscular Volume 89.9 fL (81-99); Mean Platelet Vol. 11.7 fl (6.2-12.0); Platelet Count 185 K/mm3 (150-450); RBC Distribution Width CV 14.3 % (11.6-14.6); RBC Distribution Width SD 47.6 fl (35.1-43.9); Red Blood Count 3.87 M/mm3 (4.2-5.4); White Blood Count 9.6 K/mm3 (4.4-11.0)
[2021-05-19 06:36] VITALS: BP 98/55; PULSE 86; RESP 16; TEMP 36.7; O2SAT 98
[2021-05-19 07:35] VITALS: O2SAT 98
--- NOTE | 2021-05-19 08:06 | PCM.PN.OB ---
Subjective Subjective patient recovering well, denies CP, SOB, N, or V. patient is ambulating, voiding ,tolerating adequate po, and pain is controlled with oral medications. Objective Data Objective Data Vital Signs: Vital Signs Temp Pulse Resp BP Pulse Ox 98.0 F 86 16 98/55 L 98 05/19/21 06:36 05/19/21 06:36 05/19/21 06:36 05/19/21 06:36 05/19/21 07:35 Oxygen Flow Rate (L/min) 6 Oxygen Delivery Method Room Air Weight: 154 lb 5.177 oz Body Mass Index (BMI) 30.1 Intake & Output: Intake and Output for Last 24 Hours 05/17/21 05/18/21 05/19/21 23:59 23:59 23:59 Intake Total 1266.25 / 1566.25 1671.83 / 1671.83 Output Total 975 / 975 375 / 375 Balance 291.25 / 591.25 1296.83 / 1296.83 Lab / Micro Data Result Diagrams: 05/19/21 05:52 Labs: Laboratory Results - last 24 hr 05/18/21 05/18/21 05/18/21 09:36 09:54 10:35 WBC RBC Hgb Hct MCV MCH MCHC RDW Std Deviation RDW Coeff of Ilya Plt Count MPV Urine Test Negative POC Glucose Blood Type Cancelled A POSITIVE A1 Antigen Typing Cancelled Rho(D) Type Cancelled Antibody Screen Cancelled NEGATIVE 05/18/21 05/19/21 10:38 05:52 WBC 9.6 RBC 3.87 L Hgb 11.1 L Hct 34.8 L MCV 89.9 MCH 28.7 MCHC 31.9 L RDW Std Deviation 47.6 H RDW Coeff of Ilya 14.3 Plt Count 185 MPV 11.7 Urine Test POC Glucose 88 Blood Type A1 Antigen Typing Rho(D) Type Antibody Screen Physical Exam Const alert, oriented x3 and no apparent distress Resp normal respiratory effort GI soft to palpation and non-distended Inspection: incision other (dressing dry and intact) Narrative: Minimal drainage on peripad Assessment & Plan (1) S/P laparoscopic assisted vaginal hysterectomy (LAVH): COMMENT: LAVH BS left oophorectomy AUB Pelvic pain PLAN: patient is s/p LAVH BS left oopherectomy POD 1 1. routine ERAS protocol postop care- increase ambulation, encourage oral intake and oral control of pain. lovenox and scds for dvt prophylaxis, patient stable for discharge to home.
[2021-05-19 08:15] VITALS: BP 98/55; PULSE 58; RESP 18; TEMP 36.7; O2SAT 99
[2021-05-19] MEDS: Docusate Sodium 100 MG Capsule PO (08:27)
[2021-05-19] MEDS: Pantoprazole Sodium 40 MG Tablet PO (08:27)
[2021-05-19] MEDS: Enoxaparin 40 MG/0.4 ML Syringe SC (08:28)
--- NOTE | 2021-05-19 10:44 | PHA.DC.MC ---
Pharmacy Service has performed discharge medication reconciliation and counseling for this patient. 1. NAPROXEN 250-500MG PO Q8H PRN MILD PAIN 2. OXYCODONE/ACETAMINOPHEN 5/325MG 1T PO Q4H PRN PAIN The patient's discharge medication list was reviewed for discrepancies and discrepancies were resolved. Home Medications alprazolam 0.25 mg tablet 0.25 mg PO DAILY PRN 05/15/19 multivitamin with minerals 1 ea PO DAILY 09/02/19 cetirizine 10 mg capsule 10 mg PO DAILY 09/30/20 metoprolol succinate 25 mg tablet,extended release 24 hr 25 mg PO DAILY #30 tab 10/06/20 vilazodone 10 mg tablet 20 mg PO DAILY tab 10/12/20 bupropion HCl 300 mg PO DAILY 10/20/20 esomeprazole magnesium 40 mg capsule,delayed release 40 mg PO BID cap 12/23/20 albuterol sulfate 1 inh INHALATION Q6H PRN 05/10/21 mometasone [Nasonex] 2 spray INTRANASAL DAILY 05/10/21 lisinopril 2.5 mg tablet 2.5 mg PO DAILY #30 tab 05/12/21 naproxen 250 - 500 mg PO Q8H PRN PRN #30 tab 05/18/21 oxycodone-acetaminophen [Endocet] 1 tab PO Q4H PRN 7 Days #20 tab 05/18/21 The patient was counseled on the following discharge medications and changes in medications for homegoing were reviewed. The Reason for Use, instructions for use, and potential side effects were reviewed for all new medications. The patient's questions regarding all of their medications were answered. The patient was able to verbally demonstrate an understanding of their discharge medications.
[2021-05-19] MEDS: oxyCODONE 5 MG Tablet PO (11:36)
--- NOTE | 2021-05-19 12:13 | CHAPLAIN ---
Type of Pastoral Visit _x__ Initial Visit ___ Follow-up Visit ___ On-call Visit ___ General Patient Visit ___ Spiritual Assessment ___ Family Conference ___ Bereavement ___ Rapid Response ___ Code Blue ___ Other (describe below) Pastoral Care Referral From _x__ Patient ___ Family ___ Nurse ___ Physician ___ Optical Lab Technician ___ Maintenance Electrician ___ Other (describe below) Sacrament/Intervention _x__ Active listening ___ Anointing ___ Taoist ___ Bereavement ___ Communion ___ Nery exploration ___ _x__ Life review _x__ Prayer ___ Reconciliation ___ Sacrament of Sick _x__ Supportive presence ___ Wedding ___ Other (describe below) Pastoral Comments patient requests prayer for healing and for personal needs
== END 2021-05-19 12:20 | disposition home or self-care (01) ==
LOC: MS3 05-19 08:08
PROVIDERS: Admitting Provider Obstetrics & Gynecology; PCP Student in an Organized Health Care Education/Training Program; Referring Provider Obstetrics & Gynecology; Visit Provider Obstetrics & Gynecology
PROC: 0UT9FZZ Resection of Uterus, Via Natural or Artificial Opening With Percutaneous Endoscopic Assistance (ICD-10-PCS; CPT 58552; principal; 2021-05-18 10:55)
DX: N92.0 Excessive and frequent menstruation with regular cycle (principal); D25.1 Intramural leiomyoma of uterus; N87.9 Dysplasia of cervix uteri, unspecified; J45.909 Unspecified asthma, uncomplicated; K21.9 Gastro-esophageal reflux disease without esophagitis; Z79.899 Other long term (current) drug therapy; F41.8 Other specified anxiety disorders; G47.30 Sleep apnea, unspecified; K58.9 Irritable bowel syndrome, unspecified; Z86.16 Personal history of COVID-19
CPT/HCPCS: 58552; 36415; 81025; 82962; 85027; 86850; 86900; 86901; 88307; 94762; 96372; 96374; 96376; 99218; 99251; J7120; G0378; G0379; G0463; J2405

== ENCOUNTER 2021-06-28 11:24 | Inpatient (IN) | payer OTHER, SELFPAY ==
[2021-06-07 05:54] VITALS: BMI 30.3
[2021-06-21 11:41] LABS: Hemoglobin 12.3 g/dL (12.0-15.0); Mean Corp Hgb Conc 31.5 g/dL (32-36); Mean Corpuscular Hgb 28.5 pg (27.0-32.0); Mean Corpuscular Volume 90.5 fL (81-99); Mean Platelet Vol. 11.8 fl (6.2-12.0); Platelet Count 237 K/mm3 (150-450); RBC Distribution Width CV 14.6 % (11.6-14.6); RBC Distribution Width SD 48.8 fl (35.1-43.9); Red Blood Count 4.31 M/mm3 (4.2-5.4); White Blood Count 5.9 K/mm3 (4.4-11.0)
[2021-06-21 12:10] LABS: ALB/GLOB Ratio 1.2 RATIO (0.9-2.4); AST(SGOT) 14 U/L (15-37); Alanine Aminotransfer ALT/SGPT 21 U/L (13-56); Albumin, Serum 4.3 g/dL (3.2-5.0); Alkaline Phosphatase 102 U/L (45-117); Anion Gap 5 (5-15); BUN 16 mg/dL (7-18); BUN/Creat Ratio 20.1 RATIO (10-20); Calcium,Total 8.8 mg/dL (8.5-10.1); Chloride 106 mmol/L (98-107); EST Glomerular Filtration Rate 84 mL/min (>60); Est Glom Filt Rate - Afr Amer 101 mL/min (>60); Ferritin 12 ng/mL (8-252); Globulin 3.5 g/dL (2.2-4.2); Glucose 91 mg/dL (74-106); Iron 122 ug/dL (50-170); Iron Binding Capacity,Total 428 ug/dL (250-450); Potassium 3.6 mmol/L (3.5-5.1); Protein, Total 7.8 g/dL (6.4-8.2); Sodium Level 139 mmol/L (136-145)
[2021-06-21 12:14] LABS: Vitamin B12 714 pg/mL (211-911)
[2021-06-28] VITALS (18 sets, daily range): BP systolic 83–120; BP diastolic 46–71; PULSE 58–99; RESP 16–20; TEMP 36.2–37.2; O2SAT 95–100; BMI 30.5
--- NOTE | 2021-06-28 06:08 | PCM.HP.BLA ---
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 Is patient in pain?: No Allergies cephalexin monohydrate [From Keflex] Allergy (Verified 06/07/21 07:36) Rash clarithromycin [From Biaxin] Allergy (Verified 06/07/21 07:36) Rash metronidazole [From Flagyl] Allergy (Verified 06/07/21 07:36) Rash minocycline Allergy (Verified 06/07/21 07:36) Rash Penicillins Allergy (Verified 06/07/21 07:36) VISHNU MCCALL citalopram hydrobromide [From Celexa] Adverse Reaction (Verified 06/07/21 07:36) Nausea/Vom/Diarrhea guaifenesin [From Entex LA] Adverse Reaction (Verified 06/07/21 07:36) Other phenylephrine [From Entex LA] Adverse Reaction (Verified 06/07/21 07:36) Other phenylpropanolamine [From Entex LA] Adverse Reaction (Verified 06/07/21 07:36) Other Medications alprazolam 0.25 mg tablet 0.25 mg PO DAILY PRN 05/15/19 [History Confirmed 06/07/21] multivitamin with minerals 1 ea PO DAILY 09/02/19 [History Confirmed 06/07/21] cetirizine 10 mg capsule 10 mg PO DAILY 09/30/20 [History Confirmed 06/07/21] metoprolol succinate 25 mg tablet,extended release 24 hr 25 mg PO DAILY #30 tab 10/06/20 [Rx Confirmed 06/07/21] vilazodone 10 mg tablet 20 mg PO DAILY tab 10/12/20 [History Confirmed 06/07/21] bupropion HCl 300 mg PO DAILY 10/20/20 [History Confirmed 06/07/21] esomeprazole magnesium 40 mg capsule,delayed release 40 mg PO BID cap 12/23/20 [History Confirmed 06/07/21] albuterol sulfate 1 inh INHALATION Q6H PRN 05/10/21 [History Confirmed 06/07/21] mometasone [Nasonex] 2 spray INTRANASAL DAILY 05/10/21 [History Confirmed 06/07/21] lisinopril 2.5 mg tablet 2.5 mg PO DAILY #30 tab 05/12/21 [Rx Confirmed 06/07/21] naproxen 500 mg tablet 500 mg PO BID-TID PRN #30 tab 06/01/21 [Rx Confirmed 06/07/21] Is last menstrual period known: No Post menopausal: No Patient : No PFSH Medical History Alcohol use Anemia Anemia Anxiety Asthma Back pain Cardiology follow-up encounter Chronic cough Constipation CPAP (continuous positive airway pressure) dependence Depression Depression with anxiety Diarrhea Gastric reflux GERD (gastroesophageal reflux disease) History of hiatal hernia History of IBS History of irregular heartbeat History of renal disease History of severe acute respiratory syndrome coronavirus 2 (SARS-CoV-2) disease History of steroid therapy History of stress test Hx of echocardiogram IBS (irritable colon syndrome) Injury of head and neck Knee pain Menorrhagia with regular cycle Migraine headache neck and back pain Non-smoker Shortness of breath on exertion Sleep apnea Tachycardia Surgical History H/O prior ablation treatment history cysto with stent insertion History of breast biopsy History of History of colectomy History of dilatation and curettage History of eye surgery History of LAVH History of wisdom tooth extraction Hx of colonoscopy Hx of tubal ligation Family History Grandmother Atrial fibrillation Hypertension Mother Hypertension Mitral valve prolapse Grandfather Cancer Esophageal cancer Social History Smoking Status: Never smoker alcohol intake: current alcohol intake frequency: holidays/special occasions only substance use type: does not use caffeine: Yes Type: other Number of servings: 1 what type of physical activity do you participate in: walking and bicycling frequency: 3-4 times per week seatbelt use: always do you feel safe at home: Yes 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 This was done elsewhere. Her hernia unfortunately is progressively enlarging. Fortunately at the time of her very recent surgery by Dr. Brianna Garrison no adhesions were noted. The hernia was noted to be large. It continues to cause her discomfort. Per Dr. Brianna Garrison on May 18, 2021 she had a LAVHBS plus left oophorectomy My notes from April 20, 2021 reflect the following Very pleasant 40-year-old female employee of the [employer]. December [address] Mckinney she had an open right colectomy because of a noncolonoscopically resectable ascending: Polyp. This was a large tubulovillous adenoma. Fortunately no high-grade dysplasia or invasive cancer. It is of note that March 18, 2020 she had COVID-19. She did require oxygen therapy. 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 She has to be maintained on lisinopril and metoprolol to keep her heart rate and check otherwise she will have palpitations up to 160 bpm even at rest. Over the past couple weeks she has had severe coughing. She claims that in the past even prior to her having Covid she had what was called reactive airways. In the spring or fall if she were to get a cold she would have coughing spells that would last easily 3 weeks. Her most recent episode was severe. She did take prednisone 20 mg daily for 5 days. She is utilizing albuterol inhaler as well as Tessalon Perles and even Benadryl. It was during 1 of these most recent severe coughing spells that she then felt bulging and a feeling of weakness at her midline vertical incision that extends from superior from the umbilicus down to the pubis. The patient states that preoperatively she had a small umbilical hernia. She now has concerns about the entire weakness along the suture line. She states that she was hospitalized just for 2 days. She had rapid ability to mobilize and was out of bed a couple hours postoperatively. She states that she was discharged 2 days. She had rapid resumption of bowel function ROS General General: No weight change, appetite, fatigue, colon cancer, breast cancer or weakness HEENT HEENT: Yes eye injury and eye surgery; No difficulty swallowing, swollen glands or hoarseness Endo Endocrine: No thyroid disease, diabetes mellitus, thyroid cancer, Hair loss, heat intolerance or cold intolerance Skin Skin: No rash or changing moles Breast Breast: No left breast lump, right breast lump, nipple discharge, breast pain, abnormal mammogram, abnormal US or breast enlargement Musc Musculoskeletal: No back problems, arthritis, rheumatoid arthritis, gout or joint pain Cardio Cardiovascular: Yes heart disease; No murmur, pacemaker, atrial fibrillation, high blood pressure, heart attack, heart stent, palpitations, shortness of breat with exertion or chest pain Psych Psychiatric: Yes depression and anxiety; No hearing voices Resp Respiratory: No shortness of breath, Yes sleep apnea, No cough, No COPD, Yes asthma, No emphysema and No wheezing Gastro Gastrointestinal: No abdominal pain, No nausea or vomiting, No diarrhea, No constipation, No blood in stool, Yes acid reflux, No hemorrhoids, No ulcers, No gallbladder problem and No black,tarry stools [place] Hematologic: No blood thinners, No blood disorders, No bleeding, No anemia and No blood clots Neuro Neurologic: No system reviewed and no additional complaints, except as documented, No as per HPI, No abnormal gait, No abnormal hearing, No abnormal movements, No abnormal speech, No behavioral changes, No burning sensations, No confusion, No convulsions, No disequilibrium, No dizziness, No localized weakness, No frequent falls, No headache(s), No lack of coordination, No loss of vision, No memory loss, No numbness, No other visual disturbances, No radicular pain, No restless legs, No sensory deficit, No syncope, No tingling, No tremor(s), No weakness and No other Exam Const General: cooperative, healthy appearing, comfortable and no acute distress Nutritional Appearance: average body habitus Orientation: alert and awake [facility] Head: normal to inspection Eyes General: appearance normal, both eyes and all related structures Chest Chest palpation & inspection: normal inspection of the chest Resp Effort & Inspection: normal respiratory effort Auscultation: clear to auscultation bilaterally Cardio Rate: regular rate Rhythm: regular rhythm GI Other: Soft, nontender, large infraumbilical ventral hernia protruding to the right. Separate umbilical hernia. Wide midline scar. Fascial defect approximately 4 to 5 cm in diameter. Normal bowel sounds. Not pulsatile [facility] Cervical Spine: normal cervical lordosis Skin General: no rashes or lesions noted Neuro General: patient alert, patient awake and patient oriented x3 Extrem General: no calf tenderness Psych Appearance: grossly normal COVID (Procedure Consent) Procedure Criteria Procedure Criteria: Yes Elective The surgeon/proceduralist and patient have discussed in detail the risk of exposure to and/or potential harm posed by the COVID-19 virus with having a surgery/procedure at this time versus the risk of delaying the surgery/procedure. It is not possible to know either the risk of delaying the surgery or procedure or chance of getting an infection with perfect accuracy, but a joint decision was made between the patient and the surgeon/proceduralist to proceed at this time with the scheduled surgery/procedure as indicated on the consent form. Assessment and Plan Assessment and Plan (1) Ventral incisional hernia without obstruction or gangrene: Status: Acute (2) S/P laparoscopic assisted vaginal hysterectomy (LAVH): Status: Acute Comment: SM LAVH BS left oophorectomy AUB Pelvic pain Plan - Dr. Dimitri Pascual MD: Assessment and Plan (2) Ventral incisional hernia without obstruction or gangrene: Status: Acute Plan Details Additional Comments: 40-year-old female. Status post open right colectomy per Dr. Mckinney December 2020. Tubulovillous adenoma no evidence of malignancy. The patient has had severe vigorous coughing but this was only most recently. The patient had 2 previous C-sections. It is likely that the posterior sheath was already weakened. She has had previous long-term history of severe bouts of coughing. She currently has been on a course of prednisone therapy in addition to her inhalers. She has received some of her most recent care through the now clinic in virtual visit. I do recommend however that we try to assist her in getting access to Dr. To Longoria her primary care physician. I have stressed to the patient particularly in light of her previous history of COVID-19 with residual cardiac complication with myositis that we would want to have maximization of her medical care prior to proceeding with hernia repair. We did discuss potential for robotic ventral incisional hernia and compared and contrasted this to a laparoscopic ventral incisional hernia repair and compared and contrasted that to an open ventral incisional hernia repair. I do believe that she will require mesh repair. She could require some suprapubic mobilization of the urinary bladder because of the location of the incision. She has a incisional defect in the mid and inferior portion of the incision which is likely extending its way superiorly. She already currently has a recurrent defect at the umbilicus as well. I propose for her a laparoscopic ventral incisional herniorrhaphy. Small incision would need to be made vertically at the site of recurrent hernia to allow for insertion of the mesh as well as hopeful then primary suture repair of the defect. I have also discussed a laparoscopic bilateral tap block. She has had an opportunity to ask and have questions answered. I recommend not proceeding within 4 weeks of her steroid dosing. As noted above my plan remains the same. Anticipate an incision in the infraumbilical area to gain access and Mcwilliams technique. I then anticipate mobilization of the peritoneum to allow for reduction of the sac and mobilization of the retrorectus space for mobilization of the urinary bladder. I anticipate having a Johnson catheter in place. I anticipate then mesh placement as well as previously approximation of the fascia. I anticipate a bilateral TAP block. Preoperatively the patient will have a full ERAS protocol including bowel preparation. She has had an opportunity to ask and have questions answered. We will schedule and expedite her care. I appreciate the ongoing opportunity of assisting with her surgical management. I anticipate a postoperative abdominal binder as well and early mobilization. Since the patient's previous surgery visit she has had a follow-up with Dr. To Longoria. By patient account a chest x-ray was obtained demonstrating clear air bartholomew. No additional treatment is required. The patient is not currently on any steroid management. As noted she performed well with the very recent gynecologic procedure and she continues to recover at a fast pace from that. Copy: Dr. Brianna Garrison and Dr. To Pascual M.D., F.A.C.S. Coding Level of Care Code Off vis,est,level 2 Diagnoses Ventral incisional hernia without obstruction or gangrene K43.2 S/P laparoscopic assisted vaginal hysterectomy (LAVH) Z90.710 I have re-examined the patient. There are no clinical changes since date of exam. Dimitri Pascual M.D., F.A.C.S.
[2021-06-28 06:21] LABS: Bedside Glucose 89 mg/dL (70-110)
[2021-06-28] MEDS: Acetaminophen 500 MG Tablet 1000 MG PO ×2 (06:27→15:18)
[2021-06-28] MEDS: Gabapentin 600 MG Tablet PO (06:27)
[2021-06-28] MEDS: Lactated Ringers 1,000 ML 40 ML IV ×4 (06:30→13:01)
--- NOTE | 2021-06-28 07:18 | PCM.DC ---
Documented by User: Dr. Dimitri Pascual MD 06/28/21 07:19 Discharge Instructions Diet Discharge Diet: Light diet - advance as tolerated (if you have questions about your diet instructions, please talk to you doctor.) Activity Discharge Activity: May Not Drive (for 3-5 days or while taking narcotic pain medicine.) May shower in (days): 1 Lifting Restrictions: 10 pounds Dressing / Incision Call your doctor if your incision/area has: Continuous Slow Oozing, Sudden Increased Bleeding, Increased Pain/ Swelling, Increased Redness and Foul Smelling Discharge Call your doctor if you observe: Fever of 101 or Higher Suture Line Care: Avoid Pulling/Pushing and Avoid Pinching/Bending Additional Dressing/Incision Instructions:: Change or remove dressing in 4 days. Leave steri-strips in place for 1 week. Follow Up Care Please Follow Up With: Dimitri Pascual MD When: Call [phone] to make an appointment to be seen in about 10 days. Test Results: You may use your abdominal binder when you are. You may have it off when you are resting. Discharge Plan Admission Admit Date/Time: 06/29/21 13:10 Primary Reason for Your Visit: Large ventral incisional hernia Attending Provider: Dimitri Pascual Primary Care Provider: To Longoria Discharge Orders/Prescriptions Prescriptions: New oxycodone 5 mg Tablet 5 - 10 mg PO Q4H PRN PRN (Reason: Pain Score 4-10) 3 Days Qty: 15 RF: 0 Continued alprazolam [Xanax] 0.25 mg tablet 0.25 mg PO DAILY PRN (Reason: Anxiety) RF: 0 Viibryd 10 mg tablet 20 mg PO DAILY RF: 0 esomeprazole magnesium [Nexium] 40 mg capsule,delayed release(DR/EC) 40 mg PO BID RF: 0 Zyrtec 10 mg capsule 10 mg PO DAILY RF: 0 naproxen 500 mg tablet 500 mg PO BID-TID PRN (Reason: pain) Qty: 30 RF: 2 multivitamin with minerals 1 EACH tablet 1 ea PO DAILY RF: 0 bupropion HCl 150 MG tablet extended release 24 hr 300 mg PO DAILY RF: 0 mometasone [Nasonex] 50 mcg/actuation [place],Non-Aerosol 2 spray INTRANASAL DAILY RF: 0 albuterol sulfate 90 mcg/actuation Hfa Aerosol Inhaler 1 inh INHALATION Q6H PRN (Reason: sob) RF: 0 metoprolol succinate [Toprol XL] 25 mg tablet extended release 24 hr 25 mg PO DAILY Qty: 30 RF: 11 lisinopril 2.5 mg tablet 2.5 mg PO DAILY Qty: 30 RF: 11 Referrals / Follow Up: To Longoria DO [Primary Care Provider] - Disposition Disposition (needs filled in before D/C Order can be placed): Home, Self Care Documented by User: Coni KAY PA-C 06/30/21 13:10 Discharge Plan Admission Admit Date/Time: 06/29/21 13:10 Primary Reason for Your Visit: Large ventral incisional hernia Attending Provider: Dimitri Pascual Primary Care Provider: To Longoria Discharge Orders/Prescriptions Prescriptions: New oxycodone 5 mg Tablet 5 - 10 mg PO Q4H PRN PRN (Reason: Pain Score 4-10) 3 Days Qty: 15 RF: 0 Continued alprazolam [Xanax] 0.25 mg tablet 0.25 mg PO DAILY PRN (Reason: Anxiety) RF: 0 Viibryd 10 mg tablet 20 mg PO DAILY RF: 0 esomeprazole magnesium [Nexium] 40 mg capsule,delayed release(DR/EC) 40 mg PO BID RF: 0 Zyrtec 10 mg capsule 10 mg PO DAILY RF: 0 naproxen 500 mg tablet 500 mg PO BID-TID PRN (Reason: pain) Qty: 30 RF: 2 multivitamin with minerals 1 EACH tablet 1 ea PO DAILY RF: 0 bupropion HCl 150 MG tablet extended release 24 hr 300 mg PO DAILY RF: 0 mometasone [Nasonex] 50 mcg/actuation [place],Non-Aerosol 2 spray INTRANASAL DAILY RF: 0 albuterol sulfate 90 mcg/actuation Hfa Aerosol Inhaler 1 inh INHALATION Q6H PRN (Reason: sob) RF: 0 metoprolol succinate [Toprol XL] 25 mg tablet extended release 24 hr 25 mg PO DAILY Qty: 30 RF: 11 lisinopril 2.5 mg tablet 2.5 mg PO DAILY Qty: 30 RF: 11 Referrals / Follow Up: To Longoria DO [Primary Care Provider] - Disposition Disposition (needs filled in before D/C Order can be placed): Home, Self Care
--- NOTE | 2021-06-28 11:09 | OP.PCM_ITS ---
Problems Associated Problem List Diagnoses (1) Ventral incisional hernia without obstruction or gangrene: (2) History of colectomy: Report of Operation Date of Procedure: 06/28/21 Pre-Operative Diagnosis: Large periumbilical and infraumbilical ventral incisional hernia related to a open right colectomy. Post-Operative Diagnosis: Same Surgery/Procedure Performed:: Laparoscopic ventral incisional hernia repair. Ventral light ST mesh 15.2 x 25.4 cm reference [id number], lot number [id number] Expiry date 08/17/2021 Description of Surgical Findings:: Timeout and informed consent was obtained. 40-year-old female was taken to the operating place upon the table underwent general endotracheal ovation esthesia. Clindamycin 900 g were given intravenously preoperatively. Clean procedure. The abdomen was sterilely prepped and the then Ioban draping was used as well. Superior to the umbilicus at the apex of the previous midline incision from a previous right colectomy that had been performed out of town. Then sharp dissection found the attenuated fascia at direct access placed Mg catheter and insufflated the abdomen with CO2 to a pressure of 10 mmHg pressure. A bilateral laparoscopic tap block was performed using 1 cc of Exparel with 30 cc of 0.25% Marcaine and then diluted 200 cc with saline. Bilateral tap blocks were performed using a 25-gauge needle. Having achieved that then I placed 3 5 mm ports 1 in the epigastric area (left subcostal area and left lateral subcostal area. I incised the peritoneum just at the site of this on catheter and then tediously dissected the peritoneum free from the anterior abdominal wall this was extraordinarily tedious due to the amount of scarring present from previous procedures. Gradually the peritoneum was dissected free the hernia sac was reduced and then I performed the dissection all the way over the pubic tubercle taking care to protect the urinary bladder and displace it posteriorly. This now gave access to the large ventral hernia that measured approximately 6 cm in diameter from just above the pubic tubercle all the way up to and involving the umbilicus and slightly superiorly. I used a 0 V-Loc suture and laparoscopically suturing approximated the midline fascia. This was rather challenging secondary to the separation. Having achieved that then with 2 V-Loc sutures I then inserted the mesh. I placed Prolene sutures at the corners and then 1 approximately 5 cm from the distal joey. Inserted the mesh nature good position so that it would overlap the pubic tubercle distally. I then inserted a GraNee needle just superior to the pubic tubercle and secured that prior to the mesh in that location. Presents with apical 1 and then the 2 sides. Excellent coverage of the defect area was felt to been achieved. I related the mesh and then I secured the mesh in place circumferentially with secure strap. Several devices were used because several of them malfunction. Having now completely secure the mesh circumferentially with good position I now took the peritoneum and placed it back over the mesh into the greatest degree possible I further secured it with secure strap to completely obliterate access to the majority although not all of the mesh. The mesh was irrigated. The abdomen was aspirated some of the bloody dissection fluid. I had used Hem-o-caty clips were indicated to help secure hemostasis. At the completion the mesh tear to be in good position with good protection of the midline wound. Peritoneum had been approximated nicely over. The abdomen was then allowed to d eflate the CO2 trochars were removed. It is of note that once I had the mesh internally I did remove The Catheter with a Great Suture of 0 Nurolon Finished Repairing That Defect. I Used Some Running #1 Prolene to also help approximate some of the fascia internally through that Mcwilliams site. The skin edges were approximated with interrupted subdermal 4-0 Monocryl. Steri-Strips Telfa OpSite dressings applied. Sponge and instrument and needle counts were reported to certainly be correct. Blood loss was 100 cc. Specimens none. Drains none. Blood loss 100 cc. The patient was taken to the recovery area in satisfactory development complication Dimitri Pascual M.D., F.A.C.S. Surgeon: Dimitri Pascual
[2021-06-28] MEDS: BUPIVACAINE LIPOSOME/PF 20 ML VIAL OPERA.SITE (11:11)
[2021-06-28] MEDS: Bupivacaine 0.25% 30 ML Vial (11:12)
[2021-06-28] MEDS: 0.9% Normal Saline (Pres. free 10 ML Vial (11:12)
--- NOTE | 2021-06-28 17:14 | PN.SURG_ITS ---
Subjective Subjective Patient has diffuse abdominal soreness. She has been able to get up to the bedside to void. She has not been able to ambulate yet. There is no nausea. Objective Data Objective Data Vital Signs: Vital Signs Temp Pulse Resp BP Pulse Ox 98.3 F 99 18 96/47 L 95 06/28/21 16:45 06/28/21 16:45 06/28/21 16:45 06/28/21 16:45 06/28/21 16:45 Oxygen Flow Rate (L/min) 6 Oxygen Delivery Method Room Air Weight: 156 lb 4.924 oz Body Mass Index (BMI) 30.5 Intake & Output: Intake and Output for Last 24 Hours 06/26/21 06/27/21 06/28/21 23:59 23:59 23:59 Intake Total 3210 / 3210 Output Total 300 / 300 Balance 2910 / 2910 Lab / Micro Data Result Diagrams: 06/21/21 10:07 06/21/21 10:07 Labs: Laboratory Results - last 24 hr 06/28/21 06:04: POC Glucose 89 Physical Exam GI GI Narrative: Soft, distended, diffusely tender Assessment & Plan Assessment/Plan (1) Ventral incisional hernia without obstruction or gangrene: PLAN: Very extensive ventral incisional hernia repair. Technically very challenging difficult. Bilateral tap block was performed but obviously not providing complete relief. I will provide short-term Toradol but will need to be cautious about duration. I have encouraged the patient that we would like to see her get up and ambulate if possible. The abdominal binder should also co ntinue to provide support. Dimitri Pascual M.D., F.A.C.S.
[2021-06-28] MEDS: Ketorolac 30 MG/ML Syringe IV (17:50)
[2021-06-28] MEDS: 0.9% Saline Lock 10 ML Syringe IV (17:50)
[2021-06-28] MEDS: HYDROmorphone 0.5 MG/0.5 ML SYRINGE IV (20:58)
[2021-06-28] MEDS: Pantoprazole Sodium 40 MG Tablet PO (20:59)
[2021-06-28] MEDS: Docusate Sodium 100 MG Capsule PO (20:59)
[2021-06-29] VITALS (8 sets, daily range): BP systolic 98–124; BP diastolic 50–68; PULSE 76–110; RESP 16–18; TEMP 36.8–37.2; O2SAT 95–100
[2021-06-29] MEDS: oxyCODONE 5 MG Tablet PO ×6 (00:17→22:10)
[2021-06-29] MEDS: Acetaminophen 500 MG Tablet 1000 MG PO ×4 (00:17→18:49)
[2021-06-29] MEDS: Lactated Ringers 1,000 ML 40 ML IV (04:08)
[2021-06-29] MEDS: Ketorolac 10 MG Tablet PO (04:13)
--- NOTE | 2021-06-29 05:39 | PCM.PN.SRG ---
Subjective Subjective Patient is experienced quite a bit of abdominal wall discomfort. She states she did not get much benefit from the Toradol. At rest she has at least a 4 out of 10 pain. On the bright note she has passed a few minor flatus. She is urinating well. Objective Data Objective Data Vital Signs: Vital Signs Temp Pulse Resp BP Pulse Ox 98.3 F 82 16 117/68 98 06/29/21 02:42 06/29/21 02:42 06/29/21 02:42 06/29/21 02:42 06/29/21 02:42 Oxygen Flow Rate (L/min) 6 Oxygen Delivery Method Room Air Weight: 156 lb 4.924 oz Body Mass Index (BMI) 30.5 Intake & Output: Intake and Output for Last 24 Hours 06/27/21 06/28/21 06/29/21 23:59 23:59 23:59 Intake Total 3510 / 3510 300 / 300 Output Total 700 / 700 1050 / 1050 Balance 2810 / 2810 -750 / -750 Lab / Micro Data Result Diagrams: 06/21/21 10:07 06/21/21 10:07 Labs: Laboratory Results - last 24 hr 06/28/21 06:04: POC Glucose 89 Physical Exam GI GI Narrative: Soft, distended, bowel sounds present, dressings clean and dry Assessment & Plan Assessment/Plan (1) Ventral incisional hernia without obstruction or gangrene: PLAN: Patient has met some criteria but is not met pain criteria. She requests we add back in naproxen which we will do. We will advance the diet. And hold IV fluids. Dimitri Pascual M.D., F.A.C.S.
[2021-06-29 07:06] LABS: Absolute Lymphocyte Count 1.23 X10^3/uL (0.83-4.51); Absolute Neutrophil Count 5.6 X10^3/uL (2.0-7.7); Basophil# 0.03 X10^3/uL; Basophil% 0.4 % (0-1); Eosinophil# 0.22 X10^3/uL; Eosinophils% 2.9 % (0-5); Hematocrit 30.1 % (37-47); Hemoglobin 9.3 g/dL (12.0-15.0); Lymphocyte # 1.23 X10^3/ul (0.83-4.51); Mean Corp Hgb Conc 30.9 g/dL (32-36); Mean Corpuscular Hgb 28.5 pg (27.0-32.0); Mean Corpuscular Volume 92.3 fL (81-99); Mean Platelet Vol. 11.3 fl (6.2-12.0); Monocyte# 0.57 X10^3/uL; Monocyte% 7.4 % (0-10); NRBC Flagged by Analyzer 0 % (0-5); Platelet Count 195 K/mm3 (150-450); RBC Distribution Width CV 14.6 % (11.6-14.6); RBC Distribution Width SD 50.1 fl (35.1-43.9); Red Blood Count 3.26 M/mm3 (4.2-5.4); White Blood Count 7.7 K/mm3 (4.4-11.0)
[2021-06-29 07:25] LABS: Anion Gap 8 (5-15); BUN 8 mg/dL (7-18); BUN/Creat Ratio 10.5 RATIO (10-20); Calcium,Total 8.2 mg/dL (8.5-10.1); Chloride 109 mmol/L (98-107); Creatinine, Serum 0.76 mg/dL (0.55-1.02); EST Glomerular Filtration Rate 88 mL/min (>60); Est Glom Filt Rate - Afr Amer 107 mL/min (>60); Estimated Creatinine Clearance 69.26 ml/min; Glucose 114 mg/dL (74-106); Potassium 3.8 mmol/L (3.5-5.1); Sodium Level 141 mmol/L (136-145)
[2021-06-29] MEDS: Metoprolol(XL)Succ 25 MG Tablet PO (08:59)
[2021-06-29] MEDS: Docusate Sodium 100 MG Capsule PO ×2 (08:59→20:57)
[2021-06-29] MEDS: buPROPion (XL) 300 MG TABLET.XL PO (08:59)
[2021-06-29] MEDS: Pantoprazole Sodium 40 MG Tablet PO ×2 (09:00→20:57)
[2021-06-29] MEDS: Loratadine 10 MG Tablet PO (09:00)
[2021-06-29] MEDS: Enoxaparin 40 MG/0.4 ML Syringe SC (09:01)
[2021-06-29] MEDS: Fluticasone 0.05% 1 SPRAY NASAL.SRY 2 SPRAY NASAL (09:01)
[2021-06-29] MEDS: VILAZODONE HYDROCHLORIDE 10 MG TABLET 20 MG PO (09:02)
[2021-06-29] MEDS: Naproxen 500 MG Tablet PO ×2 (10:36→20:57)
[2021-06-29] MEDS: Lisinopril 2.5 MG Tablet PO (12:35)
[2021-06-29] MEDS: Magnesium Chloride 64 MG Delay Rel.Tablet 128 MG PO (12:48)
--- NOTE | 2021-06-29 13:29 | CHAPLAIN ---
Type of Pastoral Visit _x__ Initial Visit ___ Follow-up Visit ___ On-call Visit ___ General Patient Visit ___ Spiritual Assessment ___ Family Conference ___ Bereavement ___ Rapid Response ___ Code Blue ___ Other (describe below) Pastoral Care Referral From _x__ Patient ___ Family ___ Nurse ___ Physician ___ Aluminum Fabrication Supervisor ___ Remelter ___ Other (describe below) Sacrament/Intervention _x__ Active listening ___ Anointing ___ Jew _x__ Bereavement ___ Communion _x__ Nery exploration ___ _x__ Life review _x__ Prayer ___ Reconciliation ___ Sacrament of Sick _x__ Supportive presence ___ Wedding ___ Other (describe below) Pastoral Comments patient identifies many stressors in her life at this time and requests support and prayers; pt brother recently and pt is in active grief
--- NOTE | 2021-06-29 13:42 | PN_ITS ---
Progress Note Patient is evaluated resting in bed. She is very anxious and emotional. She notes abdominal pain is a 5 out of 10 at rest and 10 out of 10 during amb ulation. She is passing flatus. She denies nausea, vomiting. Lack of appetite. She stated she was not able to sleep last night. She notes heating pad is helping with her discomfort. Assessment & Plan Assessment/Plan (1) Ventral incisional hernia without obstruction or gangrene: PLAN: Patient does not meet discharge criteria Add Ativan PRN to regimen We will continue to follow Visit Charges Inpatient E&M: 40494 Subs Hosp L1 (No charge/post op)
[2021-06-29] MEDS: LORazepam 2 MG/ML Syringe 0.5 MG IV (17:50)
[2021-06-29] MEDS: 0.9% Saline Lock 10 ML Syringe IV (17:51)
[2021-06-29] MEDS: clonazePAM 0.5 MG Tablet PO (22:09)
[2021-06-30] MEDS: Acetaminophen 500 MG Tablet 1000 MG PO ×3 (01:02→13:50)
[2021-06-30] MEDS: 0.9% Saline Lock 10 ML Syringe IV ×2 (01:12→17:16)
[2021-06-30] MEDS: LORazepam 2 MG/ML Syringe 0.5 MG IV ×2 (01:12→17:15)
[2021-06-30 02:59] VITALS: BP 95/52; PULSE 91; RESP 16; TEMP 36.9; O2SAT 95
--- NOTE | 2021-06-30 05:53 | PN.SURG_ITS ---
Subjective Subjective Patient was able to get some rest last night. Still passing flatus no stool. Comfortable when still. Still quite painful when mobilizing. She feels that by alternating Naprosyn and acetaminophen and OxyIR she is finally been able to achieve some level of pain relief. Objective Data Objective Data Vital Signs: Vital Signs Temp Pulse Resp BP Pulse Ox 98.5 F 91 16 95/52 L 95 06/30/21 02:59 06/30/21 02:59 06/30/21 02:59 06/30/21 02:59 06/30/21 02:59 Oxygen Flow Rate (L/min) 6 Oxygen Delivery Method Room Air Weight: 156 lb 4.924 oz Body Mass Index (BMI) 30.5 Intake & Output: Intake and Output for Last 24 Hours 06/28/21 06/29/21 06/30/21 23:59 23:59 23:59 Intake Total 3589.33 / 3589.33 1088 / 1088 Output Total 700 / 700 1750 / 1750 Balance 2889.33 / 2889.33 -662 / -662 Lab / Micro Data Result Diagrams: 06/29/21 06:35 06/29/21 06:35 Labs: Laboratory Results - last 24 hr 06/29/21 06:35: WBC 7.7, RBC 3.26 L, Hgb 9.3 L, Hct 30.1 L, MCV 92.3, MCH 28.5, MCHC 30.9 L, RDW Std Deviation 50.1 H, RDW Coeff of Ilya 14.6, Plt Count 195, MPV 11.3, Immature Gran % (Auto) 0.300, Neut % (Auto) 73.0 H, Lymph % (Auto) 16.0 L, [place] % (Auto) 7.4, Eos % (Auto) 2.9, Baso % (Auto) 0.4, Absolute Neuts (auto) 5.6, Absolute Lymphs (auto) 1.23, Nucleated RBC % 0 06/29/21 06:35: Sodium 141, Potassium 3.8, Chloride 109 H, Carbon Dioxide 24.0, Anion Gap 8, BUN 8, Creatinine 0.76, Estim Creat Clear Calc 69.26, Est GFR (MDRD) Af Amer 107, Est GFR (MDRD) Non-Af 88, BUN/Creatinine Ratio 10.5, Glucose 114 H, Calcium 8.2 L Physical Exam GI GI Narrative: Softly distended, hypoactive bowel sounds, dressings clean and dry Assessment & Plan Assessment/Plan (1) Ventral incisional hernia without obstruction or gangrene: PLAN: Very large challenging laparoscopic ventral incisional herniorrhaphy. Pain control has been an issue despite the utilization of a bi lateral tap block. I am hopeful that the patient is able to better mobilize today. She still has a fall risk bracelet in place. I would anticipate discharge home on the alternating NSAID medication with acetaminophen and with the OxyIR. Anticipate office follow-up in approximately 10 days. Dimitri Pascual M.D., F.A.C.S.
[2021-06-30 08:00] VITALS: BP 123/85; PULSE 72; RESP 18; TEMP 37; O2SAT 96
[2021-06-30] MEDS: Naproxen 500 MG Tablet PO (08:17)
[2021-06-30] MEDS: oxyCODONE 5 MG Tablet PO ×2 (08:22→13:51)
[2021-06-30] MEDS: VILAZODONE HYDROCHLORIDE 10 MG TABLET 20 MG PO (08:23)
[2021-06-30 09:00] VITALS: BP 105/53; PULSE 84; RESP 16; TEMP 37; O2SAT 95
[2021-06-30] MEDS: Fluticasone 0.05% 1 SPRAY NASAL.SRY 2 SPRAY NASAL (10:01)
[2021-06-30 10:02] VITALS: BP 123/85; PULSE 77
[2021-06-30] MEDS: Docusate Sodium 100 MG Capsule PO (10:02)
[2021-06-30] MEDS: Metoprolol(XL)Succ 25 MG Tablet PO (10:02)
[2021-06-30] MEDS: Loratadine 10 MG Tablet PO (10:03)
[2021-06-30] MEDS: Enoxaparin 40 MG/0.4 ML Syringe SC (10:03)
[2021-06-30] MEDS: buPROPion (XL) 300 MG TABLET.XL PO (10:03)
[2021-06-30] MEDS: Pantoprazole Sodium 40 MG Tablet PO (10:04)
[2021-06-30] MEDS: Lisinopril 2.5 MG Tablet PO (10:04)
--- NOTE | 2021-06-30 12:20 | CASEMGMT ---
DON PATTON Assessment: Face to Face with pt for initial transition planning/care coordination assessment. RN ABDI introduced self and role at [facility], pt voices understanding and consents to assessment. Pt is A/O x4 and answers all questions appropriately at this time. Pt sitting up in bed in no distress. Care providers, pharmacy, and demographics verified/updated. Admitting Dx: lap ventral incisional hernia repair PCP:Von Specialists: Pearl cardio; troy Corey Preferred Pharmacy: [facility] Retail Insurance: [facility] Prescription Benefit: yes LW/HPOA: Pt denies having a LW/DPOA. LNOK: Rodrigo Gomez, Living Arrangements: Pt lives with and two children in a two story house with one step to enter. Pt states she is I in ADL's and denies concerns at home. Transportation: Pt drives self and denies concerns with transportation. DME/HHC/SNF: Pt denies having any DME at home, denies hx of HHC or SNF stays. Pt states no concerns with going home at time of dc. Pt states no further concerns/needs. CM to follow. Advised pt to ask CM if any further question/concerns/needs arise, voices understanding. Pt Goal: Home Plan: Home
--- NOTE | 2021-06-30 13:10 | DS.PCM_ITS ---
Providers Date of Admission: 06/29/21 Primary Care Physician: Dr. To Longoria, DO Reason For Visit: RUBIA LEANN VENTRAL INCISIONAL HERNIA REPAIR Diagnosis Discharge Diagnosis (1) Ventral incisional hernia without obstruction or gangrene: Status: Acute Code(s): K43.2 - Incisional hernia without obstruction or gangrene Medications at Discharge Home Medications alprazolam 0.25 mg tablet 0.25 mg PO DAILY PRN 05/15/19 multivitamin with minerals 1 ea PO DAILY 09/02/19 cetirizine 10 mg capsule 10 mg PO DAILY 09/30/20 metoprolol succinate 25 mg tablet,extended release 24 hr 25 mg PO DAILY #30 tab 10/06/20 vilazodone 10 mg tablet 20 mg PO DAILY tab 10/12/20 bupropion HCl 300 mg PO DAILY 10/20/20 esomeprazole magnesium 40 mg capsule,delayed release 40 mg PO BID cap 12/23/20 albuterol sulfate 1 inh INHALATION Q6H PRN 05/10/21 mometasone [Nasonex] 2 spray INTRANASAL DAILY 05/10/21 lisinopril 2.5 mg tablet 2.5 mg PO DAILY #30 tab 05/12/21 naproxen 500 mg tablet 500 mg PO BID-TID PRN #30 tab 06/01/21 oxycodone 5 - 10 mg PO Q4H PRN PRN 3 Days #15 tab 06/30/21 Hospital Course Operations herniorrhaphy (Large ventral incisional repair with mesh) Summary of Care Provided Minutes Spent on Discharge: 20 Hospital Course: Patient is a 40 y/o F I am following s/p Laparoscopic ventral incisional hernia repair. Ventral light ST mesh with Dr. Pascual on 06/28/21. Patie nt tolerated the procedure well. Patient's hospital course was notable for severe amount of pain post-op. Patient had found a pain regimen which worked for her. Upon discharge, patient's pain was better controlled with NSAIDs and oxy Ir. She notes most pain with movement. While at rest, she does not have any pain. She denies nausea, vomiting, fever. She is tolerating a diet well. She is passing flatus. Weight / BMI Weight Weight: 156 lb 4.924 oz Body Mass Index (BMI) 30.5 ABG / Lab / Microbiology Data Result Diagrams: 06/29/21 06:35 06/29/21 06:35 D/C Instructions Discharge Diet: Light diet - advance as tolerated (if you have questions about your diet instructions, please talk to you doctor.) May shower in (days): 1 Call your doctor if your incision/area has: Continuous Slow Oozing, Sudden Increased Bleeding, Increased Pain/ Swelling, Increased Redness and Foul Smelling Discharge Call your doctor if you observe: Fever of 101 or Higher Suture Line Care: Avoid Pulling/Pushing and Avoid Pinching/Bending Additional Dressing/Incision Instructions: Change or remove dressing in 4 days. Leave steri-strips in place for 1 week. Please Follow Up With: Dimitri Pascual MD When: Call [phone] to make an appointment to be seen in about 10 days. Meaningful Use Info Meaningful Use Diagnoses (Choose all that apply): None applicable Discharge Plan Admission Admit Date/Time: 06/29/21 13:10 Primary Reason for Your Visit: Large ventral incisional hernia Attending Provider: Dimitri Pascual Primary Care Provider: To Longoria Discharge Orders/Prescriptions Prescriptions: New oxycodone 5 mg Tablet 5 - 10 mg PO Q4H PRN PRN (Reason: Pain Score 4-10) 3 Days Qty: 15 RF: 0 Continued alprazolam [Xanax] 0.25 mg tablet 0.25 mg PO DAILY PRN (Reason: Anxiety) RF: 0 Viibryd 10 mg tablet 20 mg PO DAILY RF: 0 esomeprazole magnesium [Nexium] 40 mg capsule,delayed release(DR/EC) 40 mg PO BID RF: 0 Zyrtec 10 mg capsule 10 mg PO DAILY RF: 0 naproxen 500 mg tablet 500 mg PO BID-TID PRN (Reason: pain) Qty: 30 RF: 2 multivitamin with minerals 1 EACH tablet 1 ea PO DAILY RF: 0 bupropion HCl 150 MG tablet extended release 24 hr 300 mg PO DAILY RF: 0 mometasone [Nasonex] 50 mcg/actuation [place],Non-Aerosol 2 spray INTRANASAL DAILY RF: 0 albuterol sulfate 90 mcg/actuation Hfa Aerosol Inhaler 1 inh INHALATION Q6H PRN (Reason: sob) RF: 0 metoprolol succinate [Toprol XL] 25 mg tablet extended release 24 hr 25 mg PO DAILY Qty: 30 RF: 11 lisinopril 2.5 mg tablet 2.5 mg PO DAILY Qty: 30 RF: 11 Referrals / Follow Up: To Longoria DO [Primary Care Provider] - Disposition Disposition (needs filled in before D/C Order can be placed): Home, Self Care Charges/Coding Visit Charges Inpatient E&M: 49912 Disch Hosp
[2021-06-30 14:12] VITALS: BP 109/61; PULSE 88; RESP 18; TEMP 36.2; O2SAT 98
--- NOTE | 2021-06-30 16:16 | CHAPLAIN ---
Type of Pastoral Visit ___ Initial Visit _x__ Follow-up Visit ___ On-call Visit ___ General Patient Visit ___ Spiritual Assessment ___ Family Conference ___ Bereavement ___ Rapid Response ___ Code Blue ___ Other (describe below) Pastoral Care Referral From _x__ Patient ___ Family ___ Nurse ___ Physician ___ General Ledger Accountant ___ Rigger Apprentice ___ Other (describe below) Sacrament/Intervention _x__ Active listening ___ Anointing ___ Uatsdin ___ Bereavement ___ Communion ___ Nery exploration ___ ___ Life review ___ Prayer ___ Reconciliation ___ Sacrament of Sick ___ Supportive presence ___ Wedding ___ Other (describe below) Pastoral Comments
[2021-06-30] MEDS: Ondansetron ODT 4 MG Tablet PO (17:16)
[2021-06-30] MEDS: HYDROmorphone 0.5 MG/0.5 ML SYRINGE IV (17:16)
[2021-06-30 17:29] VITALS: BP 118/71; PULSE 88; RESP 18; TEMP 37; O2SAT 98
== END 2021-06-30 17:31 | disposition home or self-care (01) | DRG 355 ==
LOC: SDC 12:04 → MS3 12:04
PROVIDERS: Anesthesiology; Admitting Provider Surgery; PCP Student in an Organized Health Care Education/Training Program; Referring Provider Surgery; Visit Provider Surgery
PROC: 0WQF4ZZ Repair Abdominal Wall, Percutaneous Endoscopic Approach (ICD-10-PCS; principal; 2021-06-28 07:10)
DX: K43.2 Incisional hernia without obstruction or gangrene (principal); Z86.16 Personal history of COVID-19; Z86.2 Personal history of diseases of the blood and blood-forming organs and certain disorders involving the immune mechanism; F41.8 Other specified anxiety disorders; K21.9 Gastro-esophageal reflux disease without esophagitis; G47.30 Sleep apnea, unspecified; J45.909 Unspecified asthma, uncomplicated; G43.909 Migraine, unspecified, not intractable, without status migrainosus; K58.9 Irritable bowel syndrome, unspecified; Z90.49 Acquired absence of other specified parts of digestive tract; Z98.891 History of uterine scar from previous surgery; Z90.721 Acquired absence of ovaries, unilateral; Z90.710 Acquired absence of both cervix and uterus; Z79.899 Other long term (current) drug therapy; Z87.19 Personal history of other diseases of the digestive system
CPT/HCPCS: 36415; 80048; 80053; 82607; 82728; 82962; 83540; 83550; 85025; 85027; 94762; J7120; A4216; C1781; J2405; J3490

== ENCOUNTER → 2021-07-05 14:59 | Outpatient (CLI) | payer OTHER, SELFPAY ==
[2021-06-28 14:55] VITALS: BMI 30.5
[2021-07-05 15:06] LABS: Bacteria 0 SEEN /hpf (None Seen); Mucous, Urine 0 SEEN /hpf (<or=2+)
[2021-07-05 16:08] LABS: Hematocrit 29.4 % (37-47); Mean Corp Hgb Conc 30.6 g/dL (32-36); Mean Corpuscular Hgb 27.9 pg (27.0-32.0); Mean Platelet Vol. 11.2 fl (6.2-12.0); Platelet Count 329 K/mm3 (150-450); RBC Distribution Width CV 14.9 % (11.6-14.6); RBC Distribution Width SD 50.4 fl (35.1-43.9); Red Blood Count 3.23 M/mm3 (4.2-5.4); White Blood Count 7.8 K/mm3 (4.4-11.0)
[2021-07-05 16:15] LABS: Color, Urine Yellow (Yellow); Glucose, Dipstick Normal (Normal); Ketone-Dipstick Negative (Negative); Leukocyte Esterase-Dipstick 500 /ul (Negative); Nitrite-Dipstick Negative (Negative); Occult Blood-Urine Negative /ul (Negative); Protein-Dipstick 15 mg/dl (Negative); Urine Bilirubin Dipstick Negative (Negative); Urine Clarity Clear (Clear); Urine Urobilinogen 1 mg/dl (Normal)
[2021-07-05 16:23] LABS: White Blood Cells 5-10 SEEN /hpf (0-5)
[2021-07-05 16:24] LABS: Red Blood Cells-Urine 0-5 SEEN /hpf (0-5); Squamous Epithelial Cells - UA 0-5 SEEN /hpf (5-10)
== END ==
PROVIDERS: Physician Assistant; PCP Student in an Organized Health Care Education/Training Program; Referring Provider Surgery; Visit Provider Surgery
DX: K43.2 Incisional hernia without obstruction or gangrene (principal); R30.0 Dysuria
CPT/HCPCS: 36415; 81001; 85027

== ENCOUNTER → 2021-07-08 12:53 | Outpatient (CLI) | payer OTHER, SELFPAY ==
--- NOTE | 2021-07-08 13:15 | VDLE_ITS ---
Reason For Study: Pain RIGHT LEFT GSV is normal. GSV is normal. CFV is compressible, spontaneous, phasic, CFV is compressible, spontaneous, phasic, competent and demonstrates normal competent, and demonstrates normal augmentation. augmentation. FV is compressible, spontaneous, phasic, FV is compressible, spontaneous, phasic, competent and demonstrates normal competent and demonstrates normal augmentation. augmentation. POP V is compressible, spontaneous, phasic, POP V is compressible, spontaneous, phasic, competent and demonstrates normal competent and demonstrates normal augmentation. augmentation. T/P Trunk is compressible. T/P Trunk is compressible. PTV is compressible. PTV is compressible. RT PerV is compressible. LT PerV is compressible. Procedure This is a venous duplex using B-mode, color flow and spectral Doppler. Exam performed in department. A preliminary report was called and/or faxed to Lizzie OCHOA. VL/Venous Duplex US - Dwayne Extrem Interpretation Summary No evidence for acute deep venous thrombosis bilateral lower extremities with p atent and compressible bilateral great saphenous veins. Ordering Physician: Coni Bhardwaj Referring Physician: To Longoria Performed By: Samreen Davis RVT
[2021-07-08 14:16] LABS: Hematocrit 31.5 % (37-47); Hemoglobin 9.9 g/dL (12.0-15.0); Mean Corp Hgb Conc 31.4 g/dL (32-36); Mean Platelet Vol. 10.7 fl (6.2-12.0); Platelet Count 314 K/mm3 (150-450); RBC Distribution Width CV 15.4 % (11.6-14.6); RBC Distribution Width SD 50.6 fl (35.1-43.9); Red Blood Count 3.54 M/mm3 (4.2-5.4); White Blood Count 8.9 K/mm3 (4.4-11.0)
== END ==
PROVIDERS: Physician Assistant; PCP Student in an Organized Health Care Education/Training Program; Referring Provider Family Medicine; Visit Provider Surgery
DX: K43.2 Incisional hernia without obstruction or gangrene (principal); Z90.49 Acquired absence of other specified parts of digestive tract
CPT/HCPCS: 36415; 85027; 87070; 87075; 87077; 87186; 87205; 93970

== ENCOUNTER → 2021-07-13 15:07 | Outpatient (CLI) | payer OTHER, SELFPAY ==
--- NOTE | 2021-07-13 15:08 | CT_ITS ---
STUDY: CT ABDOMEN AND PELVIS WITH CONTRAST REASON FOR EXAM: Female, 40 years old. abdominal pain RADIATION DOSAGE (If Supplied By Facility): CTDIvol = ( 24.58 ) mGy, DLP = ( 979.40 ) mGycm TECHNIQUE: Transaxial images were obtained from the dome of the diaphragm to the symphysis pubis with oral contrast. Oral and amp;amp; IV Gastrografin and amp;amp; 100mL Isovue-300 was administered. Sagittal and coronal images were reconstructed. Individualized dose optimization techniques were used for this CT. COMPARISON: None. FINDINGS: The visualized lung bases are unremarkable. The visualized portions of the heart are within normal limits. Normal liver. The gallbladder is contracted. Normal spleen. Normal pancreas. Normal bilateral adrenal glands. Normal right kidney. Normal left kidney. Normal visualized stomach. Normal small intestine. Status post right hemicolectomy with a ileocolonic anastomosis and stranding of the surrounding fat consistent with postoperative changes and small amount of free fluid in the pelvis.. Normal abdominal aorta. Normal inferior vena cava. Normal retroperitoneum. Normal urinary bladder. 4 x 6 cm fluid collection of the anterior bowel wall in the midline just inferior to the umbilicus and extending through a defect in the aponeurosis with minimal fluid in the prevesical space worrisome for postoperative seroma, chronic hematoma, or abscess. Normal osseous structures. CT/Abdomen/Pelvis WITH Contrast IMPRESSION: Suspected recent right hemicolectomy with a 4 x 6 cm postoperative seroma, chronic hematoma, or abscess of the midline subcutaneous fat just inferior to the umbilicus with minimal fluid extending through the musculature of the anterior bowel wall into the prevesical space and with some fluid in the cul-de-sac. Electronically Signed: Trey Srinivasan MD at 17:35 EDT Tel , Service support ,
== END ==
PROVIDERS: PCP Student in an Organized Health Care Education/Training Program; Referring Provider Surgery; Visit Provider Surgery
DX: R10.32 Left lower quadrant pain (principal); R10.12 Left upper quadrant pain
CPT/HCPCS: 74177

== ENCOUNTER → 2021-07-14 | Outpatient (CLI) | payer OTHER, SELFPAY | END | disposition home or self-care (01) | LOC: LABSPEC 16:18 | PROVIDERS: PCP Student in an Organized Health Care Education/Training Program; Visit Provider Surgery | DX: R10.9 Unspecified abdominal pain (principal) | CPT/HCPCS: 87070; 87075; 87205 ==

== ENCOUNTER → 2021-08-09 16:48 | Outpatient (CLI) | payer OTHER, SELFPAY ==
[2021-08-09 17:24] LABS: Absolute Lymphocyte Count 2.07 X10^3/uL (0.83-4.51); Absolute Neutrophil Count 5.8 X10^3/uL (2.0-7.7); Basophil# 0.05 X10^3/uL; Basophil% 0.5 % (0-1); Eosinophils% 2.2 % (0-5); Hematocrit 34.9 % (37-47); Hemoglobin 10.4 g/dL (12.0-15.0); Lymphocyte # 2.07 X10^3/ul (0.83-4.51); Lymphocyte % 22.7 % (19-41); Mean Corp Hgb Conc 29.8 g/dL (32-36); Mean Corpuscular Hgb 27.1 pg (27.0-32.0); Mean Corpuscular Volume 90.9 fL (81-99); Mean Platelet Vol. 10.6 fl (6.2-12.0); Monocyte# 0.91 X10^3/uL; NRBC Flagged by Analyzer 0 % (0-5); Neutrophil # 5.84 X10^3/uL (2.7-7.7); Neutrophil % 64.1 % (47-70); Platelet Count 399 K/mm3 (150-450); RBC Distribution Width CV 15.1 % (11.6-14.6); Red Blood Count 3.84 M/mm3 (4.2-5.4); White Blood Count 9.1 K/mm3 (4.4-11.0)
[2021-08-12 15:31] LABS: Vitamin D 1,25-Dihydroxy 44.9 pg/mL (19.9-79.3)
== END ==
PROVIDERS: PCP Student in an Organized Health Care Education/Training Program; Visit Provider Nurse Practitioner Gerontology
DX: R53.83 Other fatigue (principal)
CPT/HCPCS: 36415; 82652; 85025

== ENCOUNTER → 2021-08-30 08:30 | Outpatient (CLI) | payer OTHER, SELFPAY | PROVIDERS: PCP Student in an Organized Health Care Education/Training Program; Referring Provider Nurse Practitioner Gerontology; Visit Provider Nurse Practitioner Gerontology | DX: R00.0 Tachycardia, unspecified (principal) | CPT/HCPCS: 93225; 93226 ==

== ENCOUNTER 2021-09-22 10:30 | Outpatient (RCR) | payer OTHER, SELFPAY ==
--- NOTE | 2021-07-30 12:58 | HP.PTEVAL ---
Patient's Visit Information ISAK QUEEN is a 40 year old F referred to Physical Therapy by Dr. Lexi Alicia MD with a diagnosis of Back/leg pain. Date of Evaluation: 07/30/21 Physical Therapist: Curt Rich DPT - Visit Plan Frequency: 2x /Week Duration: 4-6 Weeks Plan: Begin with gentle core strengthening in supine, stretching of low back/hip. Progress hip ROM within pain tolerance to more dynamic standing core and LE exercises. 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 She had severe covid February 2020--in ICU. Pt on oxygen from that time until end of June 2020. Had severe L hip pain after coming out of hospital that resolved with PT that she began in August of 2020 (dry needling, massage, ther ex). Found she had colon mass in Oct 2020 with colectomy in Dec 2020. Hernia detected in March 2021. Had hysterectomy end of May 2021, and on June 28, 2021 had her hernia repair with mesh lining inserted attached to pubic bone. Pt reports she had 2 previous c-sections. Wounds are now completely healed. Pt reports she was doing really well after her hysterectomy, but that her L hip pain/tailbone pain began again after hernia repair. Pushed self to walk just under a mile yesterday, but struggled to make it back home. Mostly walking just household distances. Pt has difficulty walking, getting in/out of vehicle, bathtub, and rolling over in bed. Pt previously enjoyed going on walks, kayaking, and enjoyed outdoor activities with . Pt is supposed to go back to work in 2 wks, 4 hrs a day, no lifting more than 20 lbs. Pt also reports she has BPPV, with most recent episode last Monday, which resolved after Bryson manuever was performed. Reports she was supposed to sleep at 40 degree angle for a week to prevent recurrence, which has not helped her pain at all. Pain: Severe pain inner thigh after hernia surgery bilaterally. R has since resolved, L still bothers her. Pain is in tailbone and around entire hip area into pubic bone. Sitting with legs down, sit to stand and walking makes the pain worse. Reports pain in tailbone when moving foot from gas to brake in vehicle. Pain reaches 9/10 pain at worst and keeps her up at night. Pain at best is 0/10 sitting slightly reclined with legs up. Pt uses ice as needed and heat at night with some relief noted. She has also been trying yoga and stretches to keep mobile. - Pain Tailbone/L hip Pain Intensity (Out of 10): 2 Pain Intensity Range: 0, 9 Comment: denies radiating pain - Objective POSTURE: No abnormalities noted. SENSORY: Denies N&T or decreased light touch sesnation. ROM: TRUNK: Forward Flexion limited by HS tightness, no pain in tailbone. Extension very limited, pulling at pubic bone in front. Sidebending--fingertips to knee bilaterally; no pain. B rotation WFL--feels pulling with R rotation in public area. No pain with L rotation. HIP: L SLR-PROM 85 degrees, pain with AAROM. L Abduction AROM WNL. Full R hip AROM with occasional pulling at pubic area. MMT: R hip flexion 4/5 pain in L pubic area, L hip flexion/abduction NT due to pain, Adduction in hooklying 3+/5, pain between legs, Abduction 3/5 (due to pain in tailbone with any resistance applied). Core strength: Able to palpate multifidus activation, pt unable to turn on TA on demand, therapist able to detect muscle activation when performing pelvic tilt and with gentle cough. Overall very poor cores strength. Pain with R SLS, no pain with L SLS. GAIT: Pt ambulates with antalgic gait. Decreased stance time on R and decreased hip extension. Decreased vasiliy and gait speed. Pt mostly only ambulating household distances. - Balance/Special Test Scores Oswestry Low Back Score: 26 - Goals Goal 1:: Pt to demonstrate compliance with HEP in order to facilitate rehab gains. Goal Time Frame: 2 Weeks Goal 2:: LTG: Pt to demonstrate pain free full AROM of L hip Goal Time Frame: 4-6 Weeks Goal 3:: LTG: Pt to ambulate at least 1 mile with normalized gait pattern and pain 0-3/10. Goal Time Frame: 4-6 Weeks Goal 4:: LTG: Pt to demonstrate increase in functional core and LE strength to at least 4+/5 to allow for return to previous activities. Goal Time Frame: 4-6 Weeks - Rehabilitation Potential Physical Therapy Diagnosis: Pt s/s consistent with low/back leg pain likely resulting from positioning and lack of core strength post surgery. Pt would benefit from beginning with gentle core strengthening, with focus on TA activation. Pt demonstrates flexion preference; pain increased with extension. Rehabilitation Potential: Good - Anticipated Interventions Patient/Client Instruction: Educate patient on: Plan of Care Therapeutic Exercise to Include: Strength training, Balance training, Flexibilty training, Gait and locomotor training, Active ROM, Dynamic Lumbar Stabilization Manual Therapy Techniques to Include: Passive ROM, Functional dry needling Comment: Pt reports previous success with dry needling for pain relief. For the Purpose of:: To decrease pain Cryotherapy (ice pack, ice massage): Yes - PRN Thermo therapy (hot pack): Yes - PRN Thank you for the opportunity to evaluate your patient. For Medicare and Medicare HMO plans, please review the plan of care and approve it. It will need to be FAXED BACK to us at [phone] for Medicare purposes. For Medicare only, by signing this I certify the plan of care. Please let me know if there are questions or concerns regarding this plan of care. Physician Signature: Date:
--- NOTE | 2021-08-25 11:30 | HP.PTREVAL ---
Dr. Lexi Alicia MD, It has been my pleasure to treat ISAK QUEEN over the last 8 visits for Back/leg pain. Please see the progress note below for an update on the physical therapy plan of care! Subjective: Still feeling pretty good since cold laser treatment. Has been on naproxen for 6 weeks. Sophia good since laser treatment. Could do crafts and bedning and walking since treatment. Still feeling pretty good. Had another treatment. Has some residual froin pain and she will have them treat that Monday. Saw Dr. Pascual and is healed from hernia surgery. Still on lifting restrictions 20 # until Novemeber. Is working 4 hrs this week, 6 next week and then 8. Doing lots of standing in PCU. Gets intermittent back pain walking about a mile last night and had pain up hill 5/10 trasniently. Had been on feet all day. Sleeping well.75% better since injection. Objective/Function: LB ROM much better adn only limited by pulling in front at surgical site with extension. Hesitant to contract abs and hip flexors but can do 4- to 4/5 strength with just some pulling. Walking normal. Still has some heart meds and Cardio appointments from [facility]. and limitations on weigth lift from surgeon.Hip ROM B WNL and without pain. See new goal and fair prognosis. 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 Also please gently stretch anterior hip and core tissue, strengthen core progression. Careful with CV until heart doctor and meds are comfortable for patient. Careful with overstressing anterior trunk tissue Balance/Gait/Functional tests - Balance/Special Test Scores Oswestry Low Back Score: 14 Goals Goal 1:: Pt to demonstrate compliance with HEP in order to facilitate rehab gains. Goal Time Frame: 2 Weeks Goal Progress: Goal Met Goal 2:: LTG: Pt to demonstrate pain free full AROM of L hip Goal Time Frame: 4-6 Weeks Goal Progress: Goal Met Goal 3:: LTG: Pt to ambulate at least 1 mile with normalized gait pattern and pain 0-3/10. Goal Time Frame: 4-6 Weeks Goal Progress: 510, progressing, approp Goal 4:: LTG: Pt to demonstrate increase in functional core and LE strength to at least 4+/5 to allow for return to previous activities. Goal Time Frame: 4-6 Weeks Goal Progress: 4/5 appropriate Goal 5:: I gym program without pain for LE, posture, trunk and gentle CV for patient to do in community gym with list. Goal Time Frame: 2-4 Weeks Anticipated Interventions Patient/Client Instruction: Educate patient on: Plan of Care Therapeutic Exercise to Include: Strength training, Balance training, Flexibilty training, Gait and locomotor training, Active ROM, Dynamic Lumbar Stabilization Manual Therapy Techniques to Include: Passive ROM, Functional dry needling Comment: Pt reports previous success with dry needling for pain relief. For the Purpose of:: To decrease pain Cryotherapy (ice pack, ice massage): Yes - PRN Thermo therapy (hot pack): Yes - PRN Please do not hesitate to contact me at [phone] by phone or if you have questions or concerns regarding this new plan of care! Sincerely, Kendrick Pittman, DPT, OCS, CSCS
--- NOTE | 2021-09-22 11:27 | HP.PTDCSUM ---
It has been my pleasure to treat ISAK QUEEN referred by Dr. Leix Alicia MD, with the diagnosis of Back/leg pain for a total of 13 visit(s). Discharge Date: Please see the following information for a summary of their discharge status. Subjective: Good. Still gets a little pelvic pain if doesn't do therapy or works too long. Not losing sleep. Exercises help. Can start to lift this week. Pulled patient up in bed OK. Doctor lucy said she could lift. No f/u with doctor. Dr. Alicia no f/u either. Doing all core stuff with band and mat exercises with band. Wants to get back to elliptical but does some walking at home. Sees Pearl today as she was put back on metoprolol. Tailbone/L hip Pain Intensity (Out of 10): 0 LEft groin Pain Intensity (Out of 10): 2 % Improvement: 96 Objective/Function: Walks normal. Strength 5/5 in LE only some slight transient pain with L hip flexion in groin. Moving well and feeling better overall. Wants to start CV ex but will see Pearl first today as she has questions for him Goal 1:: Pt to demonstrate compliance with HEP in order to facilitate rehab gains. Goal Progress: Goal Met Goal 2:: LTG: Pt to demonstrate pain free full AROM of L hip Goal Progress: Goal Met Goal 3:: LTG: Pt to ambulate at least 1 mile with normalized gait pattern and pain 0-3/10. Goal Progress: Goal Met, not on incline. Goal 4:: LTG: Pt to demonstrate increase in functional core and LE strength to at least 4+/5 to allow for return to previous activities. Goal Progress: Goal Met Goal 5:: I gym program without pain for LE, posture, trunk and gentle CV for patient to do in community gym with list. Goal Progress: Pt confident. Plan: Pt to see dr. Kang today and contact me after that visit if she needs assist with CV progression, otherwise she is good for D/C. If there are questions or concerns regarding this patient's physical therapy, please feel free to call me at [phone]. Thank you for the referral of this patient. Sincerely, Kendrick Pittman, DPT, OCS, CSCS Balance/Gait/Functional tests - Balance/Special Test Scores Oswestry Low Back Score: 10
== END 2021-09-22 13:54 | disposition home or self-care (01) ==
LOC: PT 10:30
PROVIDERS: Referring Provider Anesthesiology Pain Medicine; Visit Provider Anesthesiology Pain Medicine
DX: M54.9 Dorsalgia, unspecified (principal); M79.606 Pain in leg, unspecified
CPT/HCPCS: 97110; 97140; 97162; 97164

== ENCOUNTER → 2021-10-20 08:01 | Outpatient (CLI) | payer OTHER, SELFPAY ==
--- NOTE | 2021-10-20 08:04 | BI_ITS ---
MAMMOGRAPHY - BILATERAL SCREENING REASON FOR EXAM: Female, 41 years old. Routine annual screening examination. PERTINENT HISTORY: Grandmother with breast cancer. TECHNIQUE: Digital bilateral breast andreas (3D mammographic acquisition) in the CC and MLO projections. 2-D mediolateral oblique (MLO) and craniocaudad (CC) views of both breasts were obtained. CAD: Full Field Digital Mammography with Computer Added Detection was performed. COMPARISON: Comparison is made with prior study dated 09/21/2020 and 09/16/2019. FINDINGS: Breast Composition: There are scattered areas of fibroglandular density. There are no dominant masses or suspicious calcifications. Stable small benign-appearing bilateral axillary lymph nodes. No other significant abnormalities are identified. There has been no significant change since the prior study. BI/SCRN MAMM (CAD)W/ANDREAS BILAT IMPRESSION: Stable bilateral screening mammogram. Yearly follow-up mammogram recommended. (A) ASSESSMENT CATEGORY: BIRADS Category 2: Benign. A letter regarding these results will be sent to the patient by the facility within 30 days. Approximately 10% of breast cancers are not detected by mammography. A normal mammogram should not delay biopsy of a clinically suspicious abnormality. [id number] Electronically Signed: Nabil Talley MD at 8:53 EST , Service support ,
== END ==
PROVIDERS: PCP Student in an Organized Health Care Education/Training Program; Referring Provider Obstetrics & Gynecology; Visit Provider Obstetrics & Gynecology
DX: Z12.31 Encounter for screening mammogram for malignant neoplasm of breast (principal)
CPT/HCPCS: 77063; 77067

== ENCOUNTER 2021-11-10 05:56 | Day surgery (SDC) | payer OTHER, SELFPAY ==
--- NOTE | 2021-11-10 06:21 | HP.PCM_ITS ---
HPI - General HPI Narrative ISAK QUEEN, is a 41 F who presents today for a colonoscopy. A request has been made to reevaluate her ascending: Surgical resection that was done through an open approach elsewhere for a large tubulovillous adenoma Very pleasant 41-year-old female employee of the [employer]. December [address] Mckinney she had an open right colectomy because of a noncolonoscopically resectable ascending: Polyp. This was a large tubulovillous adenoma. Fortunately no high-grade dysplasia or invasive cancer. I have assisted her with a complex laparoscopic ventral incisional herniorrhaphy with mesh. She is still recovering from that procedure as well. [facility] Medical History (Updated 11/10/21 @ 06:[address] Dimitri Pascual MD) Abdominal pain Alcohol use Anemia Anemia Anxiety Asthma Back pain Cardiology follow-up encounter Chronic cough Constipation CPAP (continuous positive airway pressure) dependence Depression Depression with anxiety Diarrhea Dyspnea Gastric reflux GERD (gastroesophageal reflux disease) History of hiatal hernia History of IBS History of irregular heartbeat History of renal disease History of severe acute respiratory syndrome coronavirus 2 (SARS-CoV-2) disease History of steroid therapy History of stress test Hx of echocardiogram IBS (irritable colon syndrome) Injury of head and neck Knee pain Menorrhagia with regular cycle Migraine headache neck and back pain Non-smoker Shortness of breath on exertion Sleep apnea Tachycardia Ventral incisional hernia without obstruction or gangrene Ventral incisional hernia without obstruction or gangrene Home Medications multivitamin with minerals 1 ea PO DAILY 09/02/19 [History Last Taken Unknown] cetirizine 10 mg capsule 10 mg PO DAILY 09/30/20 [History Last Taken 06/28/21 04:45] vilazodone 10 mg tablet 30 mg PO DAILY tab 10/12/20 [History Last Taken 06/28/21 04:45] albuterol sulfate 1 inh INHALATION Q6H PRN 05/10/21 [History Last Taken Unknown] mometasone [Nasonex] 2 spray INTRANASAL DAILY 05/10/21 [History Last Taken Unknown] acetaminophen 325 mg capsule 325 mg PO ONCE PRN 07/13/21 [History Last Taken Unknown] ibuprofen 400 mg tablet 400 mg PO Q8H PRN 08/09/21 [History Last Taken Unknown] metoprolol succinate 25 mg tablet,extended release 24 hr 25 mg PO DAILY #30 tab 09/16/21 [Rx Last Taken Unknown] bupropion HCl 300 mg 24 hr tablet, extended release 300 mg PO QAM 09/22/21 [History Last Taken Unknown] esomeprazole magnesium 40 mg capsule,delayed release 40 mg PO DAILY cap 09/22/21 [History Last Taken Unknown] naproxen sodium 220 mg capsule 220 mg PO Q8H PRN 09/22/21 [History Last Taken Unknown] Allergy/AdvReac Type Severity Reaction Status Date / Time cephalexin monohydrate Allergy Rash Verified 09/22/21 13:59 [From Keflex] clarithromycin [From Biaxin] Allergy Rash Verified 09/22/21 13:59 metronidazole [From Flagyl] Allergy Rash Verified 09/22/21 13:59 minocycline Allergy Rash Verified 09/22/21 13:59 Penicillins Allergy VISHNU Verified 09/22/21 13:59 PANDA'S citalopram hydrobromide AdvReac Nausea/Vom/ Verified 09/22/21 13:59 [From Celexa] Diarrhea Family History Grandmother Atrial fibrillation Hypertension Mother Hypertension Mitral valve prolapse Grandfather Cancer Esophageal cancer Surgical History H/O prior ablation treatment history cysto with stent insertion History of breast biopsy History of History of colectomy History of dilatation and curettage History of eye surgery History of LAVH History of ventral hernia repair History of wisdom tooth extraction Hx of colonoscopy Hx of tubal ligation Social History Smoking Status: Never smoker alcohol intake: current alcohol intake frequency: holidays/special occasions only substance use type: does not use caffeine: Yes Type: other Number of servings: 1 what type of physical activity do you participate in: walking and bicycling frequency: 3-4 times per week seatbelt use: always do you feel safe at home: Yes additional social history: [employer] 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 [employer] ROS Constitutional Constitutional: Reports systems reviewed and no addt'l complaints, except as documented Cardiovascular Cardiovascular: Denies chest pain Respiratory/Chest Respiratory/Chest: Denies shortness of breath at rest Gastrointestinal Gastrointestinal: Denies abdominal pain, change in bowel habits, hematochezia or melena Physical Exam Const alert, oriented x3 and no apparent distress General Appearance: cooperative and comfortable Eyes General Eye: normal appearance of both eyes Neck General: normal visual inspection Chest inspection of chest normal Resp Effort and Inspection: able to speak in complete sentences and symmetric chest movement Auscultation: clear to auscultation bilaterally Cardio regular rate and regular rhythm GI soft to palpation, non-tender and non-distended Extremity no calf tenderness Neuro oriented x3 Psych thought process normal Assessment & Plan Assessment/Plan (1) Personal history of colonic polyps: PLAN: Request has been made to pursue a follow-up colonoscopy to help evaluate her surgical anastomotic area due to the large size of her tubulovillous adenoma that was resected at an outside hospital through an open approach. She is aware of the technique, benefit, risk and alternatives. We will proceed as noted. Dimitri Pascual M.D., F.A.C.S.
[2021-11-10] MEDS: Lactated Ringers 1,000 ML 15 ML IV (06:26)
[2021-11-10 06:27] VITALS: BP 125/74; PULSE 76; RESP 16; TEMP 36.8; O2SAT 16; BMI 31.3
[2021-11-10 07:22] VITALS: BP 125/74; BP 94/81; PULSE 72; RESP 14; TEMP 35.7; O2SAT 100
[2021-11-10 07:25] VITALS: BP 101/75; BP 125/74; PULSE 67; RESP 14; O2SAT 100
--- NOTE | 2021-11-10 07:26 | OP.COLON_ITS ---
Patient Name: Brice Gomez Procedure Date: 11/10/2021 6:58 AM Date of : 1980 Age: 41 Procedure: Colonoscopy Indications: High risk colon cancer surveillance: Personal history of colonic polyps Providers: Dimitri Pascaul MD Referring MD: To Longoria Medicines: See the Anesthesia note for documentation of the administered medications Patient Profile: Last Colonoscopy: within the past year. Complications: No immediate complications. Procedure: Pre-Anesthesia Assessment: - Prior to the procedure, a History and Physical was performed, and patient medications and allergies were reviewed. The patient's tolerance of previous anesthesia was also reviewed. The risks and benefits of the procedure and the sedation options and risks were discussed with the patient. All questions were answered, and informed consent was obtained. Prior Anticoagulants: The patient has taken no previous anticoagulant or antiplatelet agents. ASA Grade Assessment: II - A patient with mild systemic disease. After reviewing the risks and benefits, the patient was deemed in satisfactory condition to undergo the procedure. After I obtained informed consent, the scope was passed under direct vision. Throughout the procedure, the patient's blood pressure, pulse, and oxygen saturations were monitored continuously. The Colonoscope was introduced through the anus and advanced to the ileocolonic anastomosis. The colonoscopy was performed without difficulty. The patient tolerated the procedure well. The quality of the bowel preparation was good. Ileocolonic anastomosis were photographed. Scope In: 7:05:53 AM Scope Withdrawal Time 0 hours 8 minutes 3 seconds Scope Out: 7:17:05 AM Total Procedure Duration Time 0 hours 11 minutes 12 seconds Findings: The perianal and digital rectal examinations were normal. There was evidence of a prior functional end-to-end ileo-colonic anastomosis at the hepatic flexure. This was patent and was characterized by healthy appearing mucosa. The exam was otherwise without abnormality. Impression: - Patent functional end-to-end ileo-colonic anastomosis, characterized by healthy appearing mucosa. - The examination was otherwise normal. - No specimens collected. Recommendation: - Discharge patient to home. - Resume previous diet. - Continue present medications. - Repeat colonoscopy in 5 years for surveillance. Procedure Code(s): --- Professional --- 21385, Colonoscopy, flexible; diagnostic, including collection of specimen(s) by brushing or washing, when performed (separate procedure) Diagnosis Code(s): --- Professional --- Z86.010, Personal history of colonic polyps Z98.0, Intestinal bypass and anastomosis status CPT copyright 2017 [employer]. All rights reserved. The codes documented in this report are preliminary and upon education nurse review may be revised to meet current compliance requirements. Dimitri Pascual MD 11/10/2021 7:26:09 AM This report has been signed electronically. Number of Addenda: 0 Note Initiated On: 11/10/2021 6:58 AM
--- NOTE | 2021-11-10 07:27 | OP.CCLET_ITS ---
11/10/2021 To Longoria [address] [place] [address] Re : Colonoscopy procedure for Brice Bonnerton Dear Dr. Longoria This procedure was performed on Wednesday, November 10, 2021. My impressions and recommendations are as follows: Impressions : - Patent functional end-to-end ileo-colonic anastomosis, characterized by healthy appearing mucosa. - The examination was otherwise normal. - No specimens collected. Recommendations : - Discharge patient to home. - Resume previous diet. - Continue present medications. - Repeat colonoscopy in 5 years for surveillance. My findings are described in the full procedure note, which is enclosed. If I can be of further assistance, please feel free to contact me at Doctor phone number(s): Work: . Sincerely, Dimitri Pascual MD 11/10/2021 7:26:09 AM This report has been signed electronically.
[2021-11-10 07:30] VITALS: BP 110/71; BP 125/74; PULSE 64; RESP 14; O2SAT 100
[2021-11-10 07:35] VITALS: BP 104/79; BP 125/74; PULSE 76; RESP 14; TEMP 36.1; O2SAT 100
[2021-11-10 07:39] VITALS: BP 125/74
== END 2021-11-10 07:56 ==
LOC: EN 05:58 → AC 05:58
PROVIDERS: PCP Student in an Organized Health Care Education/Training Program; Referring Provider Student in an Organized Health Care Education/Training Program; Visit Provider Surgery
PROC: 0DJD8ZZ Inspection of Lower Intestinal Tract, Via Natural or Artificial Opening Endoscopic (ICD-10-PCS; CPT 45378; principal; 2021-11-10 06:55)
DX: Z86.010 Personal history of colon polyps (principal); Z98.0 Intestinal bypass and anastomosis status; F41.9 Anxiety disorder, unspecified; F32.A Depression, unspecified; K21.9 Gastro-esophageal reflux disease without esophagitis; K58.9 Irritable bowel syndrome, unspecified; G47.30 Sleep apnea, unspecified; J45.909 Unspecified asthma, uncomplicated; G43.909 Migraine, unspecified, not intractable, without status migrainosus; Z79.899 Other long term (current) drug therapy
CPT/HCPCS: 45378; J7120; J2405

== ENCOUNTER 2022-01-18 06:49 | Outpatient (CLI) | payer OTHER, SELFPAY ==
[2022-01-18 08:05] LABS: Hematocrit 39.5 % (37-47); Hemoglobin 13.2 g/dL (12.0-15.0); Mean Corp Hgb Conc 33.4 g/dL (32-36); Mean Corpuscular Hgb 29.3 pg (27.0-32.0); Mean Corpuscular Volume 87.8 fL (81-99); Mean Platelet Vol. 11.3 fl (6.2-12.0); Platelet Count 228 K/mm3 (150-450); RBC Distribution Width CV 15.4 % (11.6-14.6); RBC Distribution Width SD 49.6 fl (35.1-43.9); White Blood Count 5.6 K/mm3 (4.4-11.0)
[2022-01-18 08:34] LABS: Vitamin B12 785 pg/mL (211-911); Vitamin D,25 Hydroxy 32.5 ng/mL
[2022-01-18 08:37] LABS: ALB/GLOB Ratio 1.2 RATIO (0.9-2.4); AST(SGOT) 12 U/L (15-37); Alanine Aminotransfer ALT/SGPT 18 U/L (13-56); Albumin, Serum 4.1 g/dL (3.2-5.0); Alkaline Phosphatase 96 U/L (45-117); Amylase 54 U/L (25-115); Anion Gap 6 (5-15); BUN 19 mg/dL (7-18); BUN/Creat Ratio 22.5 RATIO (10-20); Calcium,Total 9.4 mg/dL (8.5-10.1); Chloride 109 mmol/L (98-107); Cholesterol 178 mg/dL (200); Creatinine, Serum 0.85 mg/dL (0.55-1.02); EST Glomerular Filtration Rate 78 mL/min (>60); Est Glom Filt Rate - Afr Amer 94 mL/min (>60); Globulin 3.5 g/dL (2.2-4.2); Glucose 90 mg/dL (74-106); High Density Lipoprotein 49 mg/dL; Lipase 169 U/L (73-393); Potassium 3.8 mmol/L (3.5-5.1); Protein, Total 7.6 g/dL (6.4-8.2); Sodium Level 139 mmol/L (136-145); Triglycerides 104 mg/dL; Very Low Density Lipoprotein 21 mg/dL (5-40)
[2022-01-18 08:40] LABS: Hemoglobin A1c 5.2 % (3.8-5.6)
== END 2022-01-18 23:59 | disposition home or self-care (01) ==
LOC: LAB 06:49
PROVIDERS: PCP Student in an Organized Health Care Education/Training Program; Referring Provider Student in an Organized Health Care Education/Training Program; Visit Provider Student in an Organized Health Care Education/Training Program
DX: Z00.00 Encounter for general adult medical examination without abnormal findings (principal); Z90.49 Acquired absence of other specified parts of digestive tract; K58.0 Irritable bowel syndrome with diarrhea
CPT/HCPCS: 36415; 80053; 80061; 82150; 82306; 82607; 83036; 83690; 85027

== ENCOUNTER 2022-01-26 08:58 | Outpatient (CLI) | payer OTHER, SELFPAY ==
--- NOTE | 2022-01-26 09:03 | US_ITS ---
STUDY: ABDOMINAL ULTRASOUND - RIGHT UPPER QUADRANT REASON FOR VISIT: Female, 41 years old RUQ ABD PAIN TECHNIQUE: Ultrasound evaluation of the right upper quadrant was performed with real-time and static smith-scale imaging. TECHNICAL QUALITY: Adequate. COMPARISON: Comparison is made with prior examination dated 02/05/2018. FINDINGS: Liver: The liver measures 14.3 cm. There is increased echogenicity consistent with mild degree of fatty infiltration. The bile ducts are within normal limits. There is hepatic color flow. The direction of portal flow is hepatopetal. There is no demonstrated mass lesion. Gallbladder: Normal distended gallbladder. The gallbladder wall measures 2 mm. There is a negative sonographic Gonzalez''s sign. There is no pericholecystic fluid. There are no gallstones. Common Bile Duct (C.B.D.): The common bile duct measures 4 mm. Pancreas: Normal size of the head, body and tail of the pancreas. There is normal echogenicity of the pancreas. There is no demonstrated pancreatic mass or cyst. Right Kidney: Normal size of the right kidney. The right kidney measures 10.5 cm x 4.3 cm x 4.5 cm. Normal renal cortex. The right cortex measures 1.5 cm. There is no demonstrated renal mass or cyst. There is no right hydronephrosis. US/Abdomen Limited IMPRESSION: Mild degree of fatty infiltration of the liver. Electronically Signed: Nabil Talley MD at 10:41 EST ,
== END 2022-01-26 23:59 | disposition home or self-care (01) ==
PROVIDERS: PCP Student in an Organized Health Care Education/Training Program; Referring Provider Student in an Organized Health Care Education/Training Program; Visit Provider Student in an Organized Health Care Education/Training Program
DX: R10.11 Right upper quadrant pain (principal)
CPT/HCPCS: 76705

== ENCOUNTER 2022-02-22 11:11 | Outpatient (CLI) | payer OTHER, SELFPAY | END 2022-02-22 23:59 | disposition home or self-care (01) | LOC: PSN 11:11 | PROVIDERS: PCP Student in an Organized Health Care Education/Training Program; Referring Provider Internal Medicine Cardiovascular Disease; Visit Provider Internal Medicine Cardiovascular Disease | DX: U07.1 COVID-19 (principal); I40.0 Infective myocarditis; R06.00 Dyspnea, unspecified; R00.0 Tachycardia, unspecified | CPT/HCPCS: 93225; 93226 ==

== ENCOUNTER → 2022-07-12 | Outpatient (CLI) | payer OTHER, SELFPAY ==
--- NOTE | 2022-07-12 06:35 | MRI_ITS ---
STUDY: MRI BRAIN WITH AND WITHOUT CONTRAST (ATTENTION INTERNAL AUDITORY CANALS - I.A.C.''s) REASON FOR EXAM: Female, 41 years old. L TINNITUS, LT HEARING LOSS TECHNIQUE: Standardized multiplanar fat and water weighted pulse sequences were obtained. IV 14ml Clariscan was administered for the contrast portion of the examination. COMPARISON: None. FINDINGS: Normal bilateral temporal bones. Normal bilateral internal auditory canals. There is no demonstrated intracanalicular or cisternal vestibular schwannoma (acoustic neuroma). There is no enhancement of the bilateral VIIth or VIIIth cranial nerves. Normal bilateral cochlea, vestibules and semicircular canals. Normal size of the ventricles and extra-axial spaces for the patient''s age. Normal white matter tracts of the supratentorial brain. Normal bilateral basal ganglia. Normal thalami. Normal flow voids within the major intracranial circulation suggesting patency by spin echo criteria. Normal venous enhancement. There is no enhancing intra-axial or extra-axial abnormality. There is no extra-axial fluid accumulation. Normal sella turcica, pituitary gland, infundibular stalk, optic chiasm and hypothalamus. Normal tectal plate and pineal gland. Normal midbrain, terra and medulla. Normal cerebellum. Normal basal cisterns. No demonstrated orbital abnormality, within the constraints of a routine brain study. Normal visualized paranasal sinuses. Normal calvarium and skull base. Normal visualized soft tissue structures. Normal visualized upper cervical spine. MRI/Brain W/WO Contrast IMPRESSION: Normal unenhanced and enhanced MRI of the brain and bilateral internal auditory canals (I.A.C''s). Electronically Signed: Luis Daniel Lo MD at 8:50 EDT ,
== END | disposition home or self-care (01) ==
PROVIDERS: PCP Student in an Organized Health Care Education/Training Program; Referring Provider Otolaryngology; Visit Provider Otolaryngology
DX: H93.12 Tinnitus, left ear (principal); H91.92 Unspecified hearing loss, left ear
CPT/HCPCS: 70553; A9575

== ENCOUNTER → 2022-08-12 | Outpatient (CLI) | payer OTHER, SELFPAY ==
[2022-08-12 08:28] LABS: Absolute Lymphocyte Count 1.86 X10^3/uL (0.83-4.51); Absolute Neutrophil Count 2.9 X10^3/uL (2.0-7.7); Basophil# 0.06 X10^3/uL; Basophil% 1.1 % (0-1); Eosinophil# 0.22 X10^3/uL; Hematocrit 37.3 % (37-47); Hemoglobin 12.1 g/dL (12.0-15.0); Lymphocyte # 1.86 X10^3/ul (0.83-4.51); Lymphocyte % 34.1 % (19-41); Mean Corp Hgb Conc 32.4 g/dL (32-36); Mean Corpuscular Hgb 29.1 pg (27.0-32.0); Mean Corpuscular Volume 89.7 fL (81-99); Mean Platelet Vol. 11.2 fl (6.2-12.0); Monocyte# 0.43 X10^3/uL; Monocyte% 7.9 % (0-10); NRBC Flagged by Analyzer 0 % (0-5); Neutrophil # 2.86 X10^3/uL (2.7-7.7); Neutrophil % 52.5 % (47-70); Platelet Count 231 K/mm3 (150-450); RBC Distribution Width CV 13.6 % (11.6-14.6); RBC Distribution Width SD 44.5 fl (35.1-43.9); Red Blood Count 4.16 M/mm3 (4.2-5.4); White Blood Count 5.5 K/mm3 (4.4-11.0)
[2022-08-12 08:56] LABS: Vitamin B12 714 pg/mL (211-911)
[2022-08-12 09:00] LABS: ALB/GLOB Ratio 1.1 RATIO (0.9-2.4); AST(SGOT) 14 U/L (15-37); Alanine Aminotransfer ALT/SGPT 27 U/L (13-56); Albumin, Serum 3.8 g/dL (3.2-5.0); Alkaline Phosphatase 91 U/L (45-117); Anion Gap 8 (5-15); BUN 14 mg/dL (7-18); BUN/Creat Ratio 17.5 RATIO (10-20); Calcium,Total 8.5 mg/dL (8.5-10.1); Chloride 107 mmol/L (98-107); EST Glomerular Filtration Rate 83 mL/min (>60); Est Glom Filt Rate - Afr Amer 100 mL/min (>60); Free T3 2.6 pg/mL (2.18-3.98); Globulin 3.6 g/dL (2.2-4.2); Glucose 80 mg/dL (74-106); Potassium 3.4 mmol/L (3.5-5.1); Protein, Total 7.4 g/dL (6.4-8.2); Sodium Level 141 mmol/L (136-145); T4 Free Direct 1.12 ng/dL (0.76-1.46); Thyroid Stim Hormone (TSH) 0.57 uIU/mL (0.358-3.74)
== END | disposition home or self-care (01) ==
LOC: LAB 07:21
PROVIDERS: PCP Student in an Organized Health Care Education/Training Program; Referring Provider Student in an Organized Health Care Education/Training Program; Visit Provider Student in an Organized Health Care Education/Training Program
DX: R53.83 Other fatigue (principal); R94.6 Abnormal results of thyroid function studies
CPT/HCPCS: 36415; 80053; 82306; 82607; 84439; 84443; 84481; 85025

== ENCOUNTER → 2022-09-09 | Outpatient (CLI) | payer OTHER, SELFPAY ==
[2022-09-09 07:26] LABS: Anion Gap 8 (5-15); BUN 24 mg/dL (7-18); BUN/Creat Ratio 23.8 RATIO (10-20); Calcium,Total 9.2 mg/dL (8.5-10.1); Chloride 110 mmol/L (98-107); Creatinine, Serum 1.01 mg/dL (0.55-1.02); EST Glomerular Filtration Rate 63 mL/min (>60); Est Glom Filt Rate - Afr Amer 77 mL/min (>60); Glucose 93 mg/dL (74-106); Potassium 3.4 mmol/L (3.5-5.1); Sodium Level 139 mmol/L (136-145)
== END | disposition home or self-care (01) ==
PROVIDERS: PCP Student in an Organized Health Care Education/Training Program; Referring Provider Physician Assistant; Visit Provider Physician Assistant
DX: R31.0 Gross hematuria (principal)
CPT/HCPCS: 36415; 80048

== ENCOUNTER 2022-10-17 11:49 | Outpatient (CLI) | payer OTHER, SELFPAY ==
--- NOTE | 2022-10-17 | CYSPIN_PTH ---
PATIENT: ISAK QUEEN LOC: LAB U#:[id number] AGE/SX: 42/F ROOM: RE10/17/[address]: Dr. To Longoria DO : 1980 BED: DIS: 10/17/2022 SPEC #: [id number] RECD: 10/17/22 13:34 STATUS: MALIA LIN #: [id number] RENATE: 10/17/22 00:[address]: To Longoria DEPT: CYTOLOGY RECD BY: Martinez Bermudez Tissues: Urine Procedures: Pap Stain (control) Special Stain Group II Cytospin Fluid HEADER OPERATION: Not noted PRE-OP DIAGNOSIS: Gross hematuria TISSUE SUBMITTED: Urine for cytology DIAGNOSIS CYTOLOGY Urine for cytology (cytospin): Negative for high-grade urothelial carcinoma (NHGUC), (Steph System Category II). Acute inflammation. See comment. BRIDGETTE:anna 10/18/2022 COMMENT The specimen predominantly consists of squamous epithelial cells. Numerous organisms consistent with bacteria are also noted. The Steph System for urine cytology diagnostic categorization was used in the evaluation of this case. CYTOLOGY STUDY Slides are reviewed. CYTOLOGY GROSS Received is 8 ml of yellow cloudy fluid labeled with the patient's name and and designated per the requisition as urine. Submitted for cytology preparation. / anna 10/17/2022 TC:2 CPT: 39966
[2022-10-17 11:55] LABS: Cytology, Body Fluid / CSF SEE PATHOLOGY REPORT
== END 2022-10-17 23:59 | disposition home or self-care (01) ==
PROVIDERS: PCP Student in an Organized Health Care Education/Training Program; Referring Provider Student in an Organized Health Care Education/Training Program; Visit Provider Student in an Organized Health Care Education/Training Program
DX: R31.0 Gross hematuria (principal)
CPT/HCPCS: 88108; 88313

== ENCOUNTER 2022-10-22 01:51 | Outpatient (CLI) | payer OTHER, SELFPAY ==
[2022-10-22 01:53] LABS: Mucous, Urine 0 SEEN /hpf (<or=2+)
[2022-10-22 02:27] LABS: Color, Urine Yellow (Yellow); Glucose, Dipstick Normal (Normal); Ketone-Dipstick 5 mg/dl (Negative); Leukocyte Esterase-Dipstick 25 /ul (Negative); Nitrite-Dipstick Negative (Negative); Occult Blood-Urine Negative /ul (Negative); Protein-Dipstick 30 mg/dl (Negative); Specific Gravity, Urine 1.025 (1.002-1.030); Urine Bilirubin Dipstick Negative (Negative); Urine Clarity Sl. Cloudy (Clear); Urine Urobilinogen Normal (Normal)
[2022-10-22 02:33] LABS: Red Blood Cells-Urine 0-5 SEEN /hpf (0-5); Squamous Epithelial Cells - UA 0-5 SEEN /hpf (5-10); White Blood Cells 0-5 SEEN /hpf (0-5)
[2022-10-22 02:34] LABS: Bacteria 1+ /hpf (None Seen); Calcium Oxalate Crystals Ur 1+ /hpf (<or=2+)
== END 2022-10-22 23:59 | disposition home or self-care (01) ==
LOC: LABSPEC 01:51
PROVIDERS: PCP Student in an Organized Health Care Education/Training Program; Referring Provider Physician Assistant; Visit Provider Physician Assistant
DX: R30.0 Dysuria (principal)
CPT/HCPCS: 81001; 87086; 87088

== ENCOUNTER → 2022-11-03 | Outpatient (CLI) | payer OTHER, SELFPAY ==
--- NOTE | 2022-11-03 11:48 | BI_ITS ---
MAMMOGRAPHY - BILATERAL SCREENING REASON FOR EXAM: Female, 42 years old. Routine annual screening examination. PERTINENT HISTORY: Grandmother with breast cancer. TECHNIQUE: Digital bilateral breast andreas (3D mammographic acquisition) in the CC and MLO projections. 2-D mediolateral oblique (MLO) and craniocaudad (CC) views of both breasts were obtained. CAD: Full Field Digital Mammography with Computer Added Detection was performed. COMPARISON: Comparison is made with prior study dated 10/20/2021 and 09/21/2020. FINDINGS: Breast Composition: There are scattered areas of fibroglandular density. There are no dominant masses or suspicious calcifications. Stable small benign-appearing axillary lymph nodes. No other significant abnormalities are identified. There has been no significant change since the prior study. BI/SCRN MAMM (CAD)W/ANDREAS BILAT IMPRESSION: Stable bilateral screening mammogram. Yearly follow-up mammogram recommended. (A) ASSESSMENT CATEGORY: BIRADS Category 2: Benign. A letter regarding these results will be sent to the patient by the facility within 30 days. Approximately 10% of breast cancers are not detected by mammography. A normal mammogram should not delay biopsy of a clinically suspicious abnormality. [id number] Electronically Signed: Nabil Talley MD at 14:52 EST ,
== END | disposition home or self-care (01) ==
LOC: OPBI 11:46
PROVIDERS: PCP Student in an Organized Health Care Education/Training Program; Visit Provider Student in an Organized Health Care Education/Training Program
DX: Z12.31 Encounter for screening mammogram for malignant neoplasm of breast (principal); Z80.3 Family history of malignant neoplasm of breast
CPT/HCPCS: 77063; 77067

== ENCOUNTER 2022-11-07 13:13 | Day surgery (SDC) | payer OTHER, SELFPAY ==
[2022-11-07] VITALS (8 sets, daily range): BP systolic 119–151; BP diastolic 70–88; PULSE 80–88; RESP 16–18; TEMP 36.3–36.8; O2SAT 98–100
[2022-11-07] MEDS: Lactated Ringers 1,000 ML 15 ML IV (14:08)
--- NOTE | 2022-11-07 14:47 | PCM.OPRPT ---
Report of Operation Date of Procedure: 11/07/22 Pre-Operative Diagnosis: acute suppurative otitis media Post-Operative Diagnosis: same Surgery/Procedure Performed:: bilateral myringotomy with tubes Surgeon: Abelino Shane Type of Anesthesia: General Anesthesiologist: Rico Song Estimated Blood Loss (mL): none Description of Procedure: The patient was taken to the operating room on 11/07/2022. The patient was placed in the supine position on the operating room table. The patient was given sufficient general anesthesia. The operating microscope was used throughout the entire case. A speculum was inserted into the patient's left ear. Cerumen was removed using a curette. An incision was placed in the anterior inferior quadrant of the tympanic membrane. A Adri Bobin tube was placed without difficulty. Antibiotic drops were instilled into the patient's ear. Next, a speculum was inserted into the patient's right ear. Cerumen was removed using a curette. An incision was placed in the anterior inferior quadrant of the tympanic membrane. Fluid was suctioned from the middle ear space using a #5 suction. A adri bobin tube was placed without difficulty. Antibiotic drops were instilled into the patient's ear. The patient was then awoken. They were brought to the recovery room in stable condition. Blood loss minimal replacement none sponge needle and instrument counts correct at the end of the procedure.
--- NOTE | 2022-11-07 14:49 | PCM.DC.SUM ---
Providers Primary Care Physician: Dr. To Longoria DO Reason For Visit: BMT Medications at Discharge Home Medications multivitamin with minerals 1 ea PO DAILY 09/02/19 cetirizine 10 mg capsule (Zyrtec) 10 mg PO DAILY 09/30/20 albuterol sulfate 90 mcg/actuation aerosol inhaler 1 inh inhalation Q6H PRN sob 05/10/21 acetaminophen 325 mg capsule (Tylenol) 325 mg PO ONCE PRN Pain 07/13/21 ibuprofen 400 mg tablet 400 mg PO Q8H PRN Pain 08/09/21 esomeprazole magnesium 40 mg capsule,delayed release (Nexium) 40 mg PO DAILY 09/22/21 naproxen sodium 220 mg capsule 220 mg PO Q8H PRN Pain 09/22/21 cholecalciferol (vitamin D3) 25 mcg (1,000 unit) capsule 25 mcg PO DAILY 03/23/22 mometasone 50 mcg/actuation nasal spray (Nasonex) 2 spray intranasal DAILY PRN ALLERGIES 06/22/22 bupropion HCl 300 mg 24 hr tablet, extended release 300 mg PO DAILY 11/04/22 clonazepam 0.5 mg tablet 0.5 mg PO PRN PRN Anxiety 11/04/22 vilazodone 20 mg tablet 30 mg PO DAILY 11/04/22 Weight / BMI Weight Weight: 69.853 kg Body Mass Index (BMI) 30.0 D/C Instructions Discharge Diet: No restrictions Discharge Activity: Return to Normal Activity Additional Activity Instructions: Ear drops....5 drops each ear every 12 hours for 3 doses Please Follow Up With: Abelino Shane MD When: 2-3 weeks Meaningful Use Info Meaningful Use Diagnoses (Choose all that apply): None applicable Discharge Plan Admission Attending Provider: Abelino Shane Primary Care Provider: To Longoria Discharge Orders/Prescriptions Prescriptions: No Action esomeprazole magnesium [Nexium] 40 mg capsule,delayed release(DR/EC) 40 mg PO DAILY Zyrtec 10 mg capsule 10 mg PO DAILY naproxen sodium 220 mg capsule 220 mg PO Q8H PRN (Reason: Pain) acetaminophen [Tylenol] 325 mg capsule 325 mg PO ONCE PRN (Reason: Pain) ibuprofen 400 mg tablet 400 mg PO Q8H PRN (Reason: Pain) cholecalciferol (vitamin D3) 25 mcg (1,000 unit) capsule 25 mcg PO DAILY multivitamin with minerals 1 EACH tablet 1 ea PO DAILY albuterol sulfate 90 mcg/actuation Hfa Aerosol Inhaler 1 inh INHALATION Q6H PRN (Reason: sob) mometasone [Nasonex] 50 mcg/actuation spray,non-aerosol 2 spray INTRANASAL DAILY PRN (Reason: ALLERGIES) clonazepam 0.5 mg tablet 0.5 mg PO PRN PRN (Reason: Anxiety) Label Comments: Take 1 tablet by mouthCtwice daily as needed for up to 30 days. bupropion HCl 300 mg tablet extended release 24 hr 300 mg PO DAILY vilazodone 20 mg tablet 30 mg PO DAILY Label Comments: TAKE 1 TABLET BY MOUTH EVERY DAY Referrals / Follow Up: To Longoria, [Primary Care Provider] - Disposition Disposition (needs filled in before D/C Order can be placed): Home, Self Care
== END 2022-11-07 18:25 | disposition home or self-care (01) ==
LOC: SDC 13:14 → AC 13:15
PROVIDERS: PCP Student in an Organized Health Care Education/Training Program; Referring Provider Otolaryngology; Visit Provider Otolaryngology
PROC: (CPT 69421; principal; 2022-11-07 15:55)
DX: H65.23 Chronic serous otitis media, bilateral (principal); H93.12 Tinnitus, left ear; H92.02 Otalgia, left ear; H90.0 Conductive hearing loss, bilateral; R05.3 Chronic cough; J45.909 Unspecified asthma, uncomplicated; F41.8 Other specified anxiety disorders
CPT/HCPCS: 69421; 00126; J7120; J2405

== ENCOUNTER → 2022-12-06 | Outpatient (CLI) | payer OTHER, SELFPAY ==
[2022-12-06 10:28] LABS: Erythrocyte Sedimentation Rate 10 mm/hr (0-30)
[2022-12-06 11:21] LABS: BUN 27 mg/dL (7-18); Creatinine, Serum 0.94 mg/dL (0.55-1.02); EST Glomerular Filtration Rate 68 mL/min (>60); Glucose 83 mg/dL (74-106)
[2022-12-06 11:22] LABS: ALB/GLOB Ratio 1.2 RATIO (0.9-2.4); AST(SGOT) 10 U/L (15-37); Alanine Aminotransfer ALT/SGPT 29 U/L (13-56); Albumin, Serum 4.4 g/dL (3.2-5.0); Alkaline Phosphatase 85 U/L (45-117); Anion Gap 7 (5-15); BUN/Creat Ratio 28.6 RATIO (10-20); CRP < 2.90 mg/L (0.0-3.0); Calcium,Total 9.9 mg/dL (8.5-10.1); Chloride 105 mmol/L (98-107); Est Glom Filt Rate - Afr Amer 83 mL/min (>60); Globulin 3.8 g/dL (2.2-4.2); Protein, Total 8.2 g/dL (6.4-8.2); Sodium Level 140 mmol/L (136-145)
[2022-12-07 14:09] LABS: Anti-Centromere B Ab <0.2 AI (0.0-0.9); Anti-Chromatin <0.2 AI (0.0-0.9); Anti-Jo <0.2 AI (0.0-0.9); Anti-Scleroderma-70 AB <0.2 AI (0.0-0.9); RNP Ab <0.2 AI (0.0-0.9); SJOGREN'S Anti-SS-A test < 0.2 AI (0.0-0.9); SJOGREN'S Anti-SS-B test < 0.2 AI (0.0-0.9); Smith Ab <0.2 AI (0.0-0.9)
[2022-12-07 16:09] LABS: Endomysial Antibody IgA Negative (Negative)
[2022-12-07 16:53] LABS: Anti-Mitochondrial AB <20.0 Units (0.0-20.0); Anti-dsDNA Ab 1 IU/mL (0-9)
[2022-12-07 17:31] LABS: Immunoglobulin A 264 mg/dL (87-352); t-Transglutaminase IgA <2 U/mL (0-3)
[2022-12-09 16:09] LABS: Albumin 4.3 g/dL (2.9-4.4); Alpha-1-Globulins 0.2 g/dL (0.0-0.4); Alpha-2-Globulins 0.7 g/dL (0.4-1.0); Cytoplasmic Ab (C-ANCA) <1:20 titer (Neg:<1:20); Gamma Globulin 1.2 g/dL (0.4-1.8); Immunoglobulin A 258 mg/dL (87-352); Immunoglobulin G 1148 mg/dL (586-1602); Immunoglobulin M 79 mg/dL (26-217); PROEL- TOTAL PROTEIN 7.7 g/dL (6.0-8.5)
[2022-12-09 20:28] LABS: Anti-Smooth Muscle ABS 5 Units (0-19); Immunoglobulin E 2 IU/mL (6-495); Perinuclear Ab (P-ANCA) <1:20 titer (Neg:<1:20)
== END | disposition home or self-care (01) ==
PROVIDERS: PCP Student in an Organized Health Care Education/Training Program; Referring Provider Internal Medicine Gastroenterology; Visit Provider Internal Medicine Gastroenterology
DX: R19.7 Diarrhea, unspecified (principal)
CPT/HCPCS: 36415; 80053; 82784; 82785; 83516; 84165; 85652; 86140; 86225; 86235; 86255; 86256; 86334

== ENCOUNTER → 2022-12-09 | Outpatient (CLI) | payer OTHER, SELFPAY | END | disposition home or self-care (01) | LOC: LABSPEC 13:27 | PROVIDERS: PCP Student in an Organized Health Care Education/Training Program; Referring Provider Internal Medicine Gastroenterology; Visit Provider Internal Medicine Gastroenterology | DX: K58.9 Irritable bowel syndrome, unspecified (principal); R19.7 Diarrhea, unspecified | CPT/HCPCS: 83630 ==

== ENCOUNTER → 2023-01-12 | Outpatient (CLI) | payer OTHER, SELFPAY ==
[2023-01-12 08:56] LABS: Erythrocyte Sedimentation Rate 4 mm/hr (0-30)
[2023-01-12 09:17] LABS: ALB/GLOB Ratio 1.2 RATIO (0.9-2.4); AST(SGOT) 17 U/L (15-37); Alanine Aminotransfer ALT/SGPT 21 U/L (13-56); Albumin, Serum 4.2 g/dL (3.2-5.0); Alkaline Phosphatase 94 U/L (45-117); Anion Gap 7 (5-15); BUN 21 mg/dL (7-18); BUN/Creat Ratio 22.9 RATIO (10-20); CRP < 2.90 mg/L (0.0-3.0); Calcium,Total 9.2 mg/dL (8.5-10.1); Chloride 106 mmol/L (98-107); Cholesterol 214 mg/dL (200); Creatinine, Serum 0.92 mg/dL (0.55-1.02); EST Glomerular Filtration Rate 71 mL/min (>60); Est Glom Filt Rate - Afr Amer 86 mL/min (>60); Globulin 3.5 g/dL (2.2-4.2); Glucose 94 mg/dL (74-106); High Density Lipoprotein 59 mg/dL; Potassium 3.7 mmol/L (3.5-5.1); Protein, Total 7.7 g/dL (6.4-8.2); Sodium Level 140 mmol/L (136-145); Triglycerides 93 mg/dL; Very Low Density Lipoprotein 19 mg/dL (5-40)
[2023-01-25 00:06] LABS: Endomysial Antibody IgA Negative (Negative); Immunoglobulin A 245 mg/dL (87-352)
[2023-01-25 14:54] LABS: Deamidated Gliadin IgA 4 units (0-19); Deamidated Gliadin IgG 3 units (0-19); HLA B27 Positive (.); t-Transglutaminase IgA <2 U/mL (0-3)
== END | disposition home or self-care (01) ==
LOC: LAB 07:31
PROVIDERS: PCP Student in an Organized Health Care Education/Training Program; Visit Provider Student in an Organized Health Care Education/Training Program
DX: R19.7 Diarrhea, unspecified (principal); K21.9 Gastro-esophageal reflux disease without esophagitis; E78.5 Hyperlipidemia, unspecified
CPT/HCPCS: 36415; 80053; 80061; 81374; 82784; 83036; 83516; 85652; 86140; 86255

== ENCOUNTER → 2023-01-20 | Outpatient (CLI) | payer OTHER, SELFPAY ==
[2023-01-20 15:47] LABS: Absolute Neutrophil Count 4.4 X10^3/uL (2.0-7.7); Basophil# 0.05 X10^3/uL; Basophil% 0.7 % (0-1); Eosinophil# 0.25 X10^3/uL; Eosinophils% 3.4 % (0-5); Hematocrit 39.1 % (37-47); Hemoglobin 12.4 g/dL (12.0-15.0); Lymphocyte % 28.2 % (19-41); Mean Corp Hgb Conc 31.7 g/dL (32-36); Mean Corpuscular Hgb 29.2 pg (27.0-32.0); Mean Corpuscular Volume 92.2 fL (81-99); Mean Platelet Vol. 11.1 fl (6.2-12.0); Monocyte# 0.58 X10^3/uL; Monocyte% 7.8 % (0-10); NRBC Flagged by Analyzer 0 % (0-5); Neutrophil # 4.43 X10^3/uL (2.7-7.7); Neutrophil % 59.5 % (47-70); Platelet Count 260 K/mm3 (150-450); RBC Distribution Width SD 47.2 fl (35.1-43.9); Red Blood Count 4.24 M/mm3 (4.2-5.4); White Blood Count 7.4 K/mm3 (4.4-11.0)
== END | disposition home or self-care (01) ==
PROVIDERS: PCP Student in an Organized Health Care Education/Training Program; Referring Provider Allergy & Immunology; Visit Provider Allergy & Immunology
DX: B99.9 Unspecified infectious disease (principal)
CPT/HCPCS: 36415; 85025

== ENCOUNTER → 2023-01-23 | Outpatient (CLI) | payer OTHER, SELFPAY | END | disposition home or self-care (01) | PROVIDERS: PCP Student in an Organized Health Care Education/Training Program; Referring Provider Allergy & Immunology; Visit Provider Allergy & Immunology | DX: B99.9 Unspecified infectious disease (principal) ==

== ENCOUNTER 2023-02-16 05:20 | Day surgery (SDC) | payer OTHER, SELFPAY ==
[2023-02-16] VITALS (7 sets, daily range): BP systolic 111–140; BP diastolic 71–92; PULSE 75–99; RESP 16–18; TEMP 36.1–36.3; O2SAT 93–100; BMI 29.5
[2023-02-16] MEDS: Lactated Ringers 1,000 ML 15 ML IV (05:59)
--- NOTE | 2023-02-16 06:30 | IMM_PTH ---
PATIENT: ISAK QUEEN LOC: EN U#:[id number] AGE/SX: 42/F ROOM: RE02/16/[address]: Dr. Pedrito Brock DO : 1980 BED: DIS: 02/16/2023 SPEC #: [id number] RECD: 02/16/23 14:16 STATUS: MALIA RELibertad #: [id number] RENATE: 02/16/23 06:[address]: Pedrito Brock DEPT: IMMUNOHISTOCHEMISTRY RECD BY: Mia Guzman ENTERED: 02/16/23 14:16 SP TYPE: IMMUNO OTHR DR: Dr. To Longoria DO Tissues: B - Stomach, NOS Procedures: H Pylori (initial) PHYSICIAN & INSTITUTION [place] [address] SPECIMEN INFORMATION: Tissue Source: B ? Gastric antrum Clinical Info: Status post right hemicolectomy, GERD, history of colonic polyps, diarrhea Specimen Number: [id number] CPT code: 93302 METHODOLOGY: Deparaffinized sections of prefer/formalin-fixed tissue or PAP/DQ stained slides are incubated with monoclonal/polyclonal antibodies/oligonucleotide probes. Localization is made via biotin free immunoperoxidase method. Appropriate controls are performed and reacted as expected. Results on target cell population are indicated in the following table: RESULTS: ANTIBODY / CLONE RESULT Block B H Pylori (polyclonal) negative These tests were developed and their performance characteristics determined by [facility]. They may not have been cleared or approved by the U.S. Food and Drug Administration. The FDA has determined that such clearance or approval is not necessary. The above immunohistochemical/dualISH markers are ordered and reviewed by the Pathologist. INTERPRETATION: B. Gastric antrum, biopsy: Negative for Helicobacter pylori organisms. AM:anna 02/17/2023
--- NOTE | 2023-02-16 06:30 | EGD_PTH ---
PATIENT: ISAK QUEEN LOC: EN U#:[id number] AGE/SX: 42/F ROOM: RE02/16/[address]: Dr. Pedrito Brock DO : 1980 BED: DIS: 02/16/2023 SPEC #: [id number] RECD: 02/16/23 12:55 STATUS: MALIA RELibertad #: [id number] RENATE: 02/16/23 06:[address]: Pedrito Brock DEPT: SURGICAL PATHOLOGY RECD BY: Arabella Wharton ENTERED: 02/16/23 13:28 SP TYPE: EGD BIOPSY OT DR: Dr. To Longoria DO Tissues: A - Duodenum, NOS B - Gastric mucous membrane C - Esophagus, NOS Procedures: Special Stain Group II Surgery Specimen Level IV Alcian Blue/PAS (control) HEADER OPERATION: EGD ? PH probe (MAC), biopsy PRE-OP DIAGNOSIS: Status post right hemicolectomy, GERD, history of colonic polyps, diarrhea TISSUE SUBMITTED: A ? Duodenum biopsy, B ? Gastric antrum biopsy for histo and H. pylori, C ? Distal esophagus biopsy MICROSCOPIC DIAGNOSIS A. 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 B. Gastric antrum, biopsy: Chronic gastritis. See comment. C. Distal esophagus, biopsy: Gastroesophageal junctional mucosa with chronic inflammation. Focal acute inflammation. Focal changes of reflux. No evidence of goblet cell metaplasia. See comment. AM:anna 02/17/2023 COMMENT B. The results of immunohistochemistry for Helicobacter pylori will be reported separately ([id number]). C. Alcian blue/PAS stain with matched control supports the above diagnosis. MICROSCOPIC DESCRIPTION Slides are reviewed. GROSS DESCRIPTION A - Received in fixative is one container labeled with the patient's name and designated duodenum biopsy. The specimen consists of multiple irregular fragments of light del angel soft tissue that in aggregate measure 1.0 x 0.2 x 0.1 cm. The specimen is totally submitted in one cassette. B - Received in fixative is one container labeled with the patient's name and designated gastric antrum biopsy. The specimen consists of two irregular fragments of light del angel soft tissue that in aggregate measure 0.6 x 0.4 x 0.1 cm. The specimen is totally submitted in one cassette. C - Received in fixative is one container labeled with the patient's name and designated distal esophagus biopsy. The specimen consists of two irregular fragments of light del angel soft tissue that in aggregate measure 0.6 x 0.5 x 0.1 cm. The specimen is totally submitted in one cassette. / BRIDGETTE:anna 02/16/2023 TC:2 CPT: 09621 x3, 48749
--- NOTE | 2023-02-16 06:40 | PCM.HP.BLA ---
History and Physical Date of Admission: 02/16/23 42 F who presents to the office today for PMH post COVID myocarditis; anxiety/depression; asthma; cystitis; SVT PSH right hemicolectomy ; left oophorectomy FH colon cancer, maternal grandfather; esophageal cancer, paternal grandfather. Initial consult. Brice established with this clinic 12.06.22. Previously established with [facility] with symptoms of abdominal pain, nausea, diarrhea and reflux. ?EGD and colonoscopy 10.23.20?Dr. Anaya. EGD noting gastritis without specimens collected. ?Esophageal manometry, pH monitoring. Colonoscopy found likely malignant tumor of proximal ascending colon; sigmoid diverticulosis; nonbleeding internal hemorrhoids. 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 Recommend right hemicolectomy Right hemicolectomy 12.28.[address] Mckinney with [address] [facility] presentation 01.11.21 with abdominal pain diagnosed as postoperative and ruptured left ovarian cyst. Colectomy complication of hernia for which Dr. Karli Pascual performed large periumbilical and infraumbilical ventral hernia incisional hernia repair 06.28.21 with hospitalization until 06.30.21. Hernia repair complicated with formation of seroma causing abdominal pain and requiring placement of pigtail catheter 07.14.21 with negative cultures. Drain pulled 07.19.21. Colonoscopy 11.10.21 Dr. Pascual noting patent end-to-end ileo-colonic anastomosis. No specimens collected. Undergoing diet change keto/low carb. Prior to this she was having diarrhea with urgency and related incontinence. Will continue to have urgent loose stools with food triggers. GERD she has been maintained on PPI 40mg for several years and this has been well controlled. PCP titrated down to 20mg with return of symptoms to include reflux and nocturnal burning which caused her to have coughing/choking that wakes her. ROS Const Constitutional: Positive for other (Denies other signs symptoms related to constitutional, HEENT,) ENT ENT: Positive for other (Endocrine, neurologic or psychologic.) Skin Skin: Positive for other (Integument, cardiovascular, pulmonary, GI, , musculoskeletal,) Endo Endocrine: Positive for other (Endocrine, neurologic or psychologic.) Aller/Imm Allergy/Immunologic: Positive for other (Nurses notes reviewed, agree other than how amended by my note.) Exam Const General: cooperative, healthy appearing, comfortable, no acute distress, well developed and well groomed Nutritional Appearance: average body habitus Orientation: alert, awake and oriented x3 GI Inspection: non-distended and no obesity Palpation: soft, no hepatosplenomegaly, not firm, no guarding and tender suprapubicly General: No CVA tenderness Quality Reporting Tobacco Screening (CMS 138) Smoking Status: Never smoker Assessment and Plan Assessment and Plan (1) S/P right hemicolectomy: ?Status:?Chronic ?Comment: 2020 Dr. cMkinney ?Plan: Status post right hemicolectomy due to a very large tubular villous adenoma.? Her last colonoscopy approximately a year ago did not show of abnormalities at the site of anastomosis .? She can have a colonoscopy approximately a year. (2) GERD (gastroesophageal reflux disease): ?Status:?Acute ?Plan: Gastroesophageal reflux disease and should undergo an upper endoscopy for evaluation of Sarkar's esophagus due to the fact that she continues to take Protonix on a daily basis otherwise she has continued symptoms. (3) Personal history of colonic polyps: ?Status:?Resolved ?Plan: She should undergo genetic testing for HNP CC (4) Diarrhea: ?Status:?Acute ?Plan: The differential diagnosis for her diarrhea does include bile associated colitis, accelerated gastrocolic reflex, inflammatory bowel disease.? She will undergo biochemical testing and stool testing. I have examined the patient and the H&P has been reviewed. There are no clinical changes since date of exam.
--- NOTE | 2023-02-16 07:01 | OP.CCLET_ITS ---
02/16/2023 To Longoria [address] [place] [address] Re : Upper GI endoscopy procedure for Brice Gomez Dear Dr. Longoria This procedure was performed on January. My impressions and recommendations are as follows: Impressions : - Normal esophagus. - Z-line irregular, 32 cm from the incisors. Biopsied. - No gross lesions in the stomach. - Non-bleeding erosive gastropathy. Biopsied. - Erythematous duodenopathy. Biopsied. - The PARSONS pH capsule was positioned 32 cm from the incisors, which was 6 cm proximal to the GE junction. Recommendations : - Discharge patient to home. - Resume previous diet. - Continue present medications. - Await pathology results. My findings are described in the full procedure note, which is enclosed. If I can be of further assistance, please feel free to contact me at . Sincerely, Pedrito Brock, 02/16/2023 7:00:38 AM This report has been signed electronically.
--- NOTE | 2023-02-16 07:01 | OP.EGD_ITS ---
Patient Name: Brice Gomez Procedure Date: 02/16/2023 6:12 AM Date of : 1980 Age: 42 Procedure: Upper GI endoscopy Indications: Suspected esophageal reflux, Failure to respond to medical treatment Providers: Pedrito Brock DO Referring MD: To Longoria Medicines: Monitored Anesthesia Care Patient Profile: This is a 42 year old female. Refer to note in patient chart for documentation of history and physical. Patient has symptoms of chronic heartburn and chronic nausea. Complications: No immediate complications. Procedure: Pre-Anesthesia Assessment: - Prior to the procedure, a History and Physical was performed, and patient medications and allergies were reviewed. The patient is competent. The risks and benefits of the procedure and the sedation options and risks were discussed with the patient. All questions were answered and informed consent was obtained. Patient identification and proposed procedure were verified by the physician in the pre-procedure area. Mental Status Examination: alert and oriented. Prophylactic Antibiotics: The patient does not require prophylactic antibiotics. Prior Anticoagulants: The patient has taken no previous anticoagulant or antiplatelet agents. ASA Grade Assessment: II - A patient with mild systemic disease. After reviewing the risks and benefits, the patient was deemed in satisfactory condition to undergo the procedure. The anesthesia plan was to use monitored anesthesia care (MAC). Immediately prior to administration of medications, the patient was re-assessed for adequacy to receive sedatives. The heart rate, respiratory rate, oxygen saturations, blood pressure, adequacy of pulmonary ventilation, and response to care were monitored throughout the procedure. The physical status of the patient was re-assessed after the procedure. After obtaining informed consent, the endoscope was passed under direct vision. Throughout the procedure, the patient's blood pressure, pulse, and oxygen saturations were monitored continuously. The Endoscope was introduced through the mouth, and advanced to the second part of duodenum. The upper GI endoscopy was accomplished without difficulty. The patient tolerated the procedure well. Scope In: 6:45:30 AM Scope Out: 6:53:22 AM Total Procedure Duration Time 0 hours 7 minutes 52 seconds Findings: The examined esophagus was normal. The PARSONS capsule with delivery system was introduced through the mouth and advanced into the esophagus, such that the PARSONS pH capsule was positioned 32 cm from the incisors, which was 6 cm proximal to the GE junction. Suction was applied to the well of the PARSONS pH capsule to suck in the adjacent mucosa of the esophagus using the external vacuum pump set at a minimum vacuum pressure of 550 mmHg for 30 seconds. The PARSONS pH capsule was then deployed by depressing the plunger on top of the handle to advance the locking pin into the mucosa, thereby attaching the capsule to the esophagus. The plunger was then rotated a quarter turn clockwise to release the capsule from the delivery system. The delivery system was then withdrawn. Endoscopy was utilized for probe placement and diagnostic evaluation. The Z-line was irregular and was found 32 cm from the incisors. Biopsies were taken with a cold forceps for histology. Verification of patient identification for the specimen was done. Estimated blood loss was minimal. No gross lesions were noted in the stomach. A few localized, 5 mm non-bleeding erosions were found in the gastric antrum. There were no stigmata of recent bleeding. Biopsies were taken with a cold forceps for histology. Verification of patient identification for the specimen was done. Estimated blood loss was minimal. Patchy mildly erythematous mucosa without active bleeding and with no stigmata of bleeding was found in the duodenal bulb. Biopsies were taken with a cold forceps for histology. Verification of patient identification for the specimen was done. Estimated blood loss was minimal. Impression: - Normal esophagus. - Z-line irregular, 32 cm from the incisors. Biopsied. - No gross lesions in the stomach. - Non-bleeding erosive gastropathy. Biopsied. - Erythematous duodenopathy. Biopsied. - The PARSONS pH capsule was positioned 32 cm from the incisors, which was 6 cm proximal to the GE junction. Recommendation: - Discharge patient to home. - Resume previous diet. - Continue present medications. - Await pathology results. Procedure Code(s): --- Professional --- 76603, Esophagogastroduodenoscopy, flexible, transoral; with biopsy, single or multiple CPT copyright 2017 [employer]. All rights reserved. The codes documented in this report are preliminary and upon installer soft top review may be revised to meet current compliance requirements. Pedrito Brock DO 02/16/2023 7:00:38 AM This report has been signed electronically. Number of Addenda: 0 Note Initiated On: 02/16/2023 6:12 AM
== END 2023-02-16 08:04 | disposition home or self-care (01) ==
LOC: EN 05:21 → AC 05:22
PROVIDERS: PCP Student in an Organized Health Care Education/Training Program; Referring Provider Student in an Organized Health Care Education/Training Program; Visit Provider Internal Medicine Gastroenterology
PROC: (CPT 43239; principal; 2023-02-16 06:25)
DX: K29.50 Unspecified chronic gastritis without bleeding (principal); K21.9 Gastro-esophageal reflux disease without esophagitis; Z86.010 Personal history of colon polyps; R19.7 Diarrhea, unspecified
CPT/HCPCS: 43239; 88305; 88313; 88342; J7120; J2405

== ENCOUNTER → 2023-02-24 | Outpatient (CLI) | payer OTHER, SELFPAY | END | disposition home or self-care (01) | PROVIDERS: PCP Student in an Organized Health Care Education/Training Program; Referring Provider Allergy & Immunology; Visit Provider Allergy & Immunology | DX: B99.9 Unspecified infectious disease (principal) | CPT/HCPCS: 36415 ==

== ENCOUNTER → 2023-03-31 | Outpatient (CLI) | payer OTHER, SELFPAY ==
[2023-04-10 16:08] LABS: Calprotectin, Stool 66 ug/g (0-120)
== END | disposition home or self-care (01) ==
LOC: LABSPEC 16:15
PROVIDERS: PCP Student in an Organized Health Care Education/Training Program; Referring Provider Internal Medicine Gastroenterology; Visit Provider Internal Medicine Gastroenterology
DX: K50.90 Crohn's disease, unspecified, without complications (principal)
CPT/HCPCS: 83993

== ENCOUNTER → 2023-04-18 | Outpatient (CLI) | payer OTHER, SELFPAY ==
[2023-04-18 09:56] LABS: Absolute Lymphocyte Count 1.71 X10^3/uL (0.83-4.51); Absolute Neutrophil Count 3.3 X10^3/uL (2.0-7.7); Basophil# 0.06 X10^3/uL; Basophil% 1.1 % (0-1); Eosinophil# 0.21 X10^3/uL; Eosinophils% 3.8 % (0-5); Hematocrit 41.8 % (37-47); Hemoglobin 13.2 g/dL (12.0-15.0); Lymphocyte # 1.71 X10^3/ul (0.83-4.51); Lymphocyte % 30.7 % (19-41); Mean Corp Hgb Conc 31.6 g/dL (32-36); Mean Corpuscular Hgb 29.1 pg (27.0-32.0); Mean Corpuscular Volume 92.1 fL (81-99); Mean Platelet Vol. 11.7 fl (6.2-12.0); Monocyte# 0.32 X10^3/uL; Monocyte% 5.7 % (0-10); NRBC Flagged by Analyzer 0 % (0-5); Neutrophil # 3.25 X10^3/uL (2.7-7.7); Neutrophil % 58.3 % (47-70); Platelet Count 245 K/mm3 (150-450); RBC Distribution Width CV 14.2 % (11.6-14.6); RBC Distribution Width SD 48.1 fl (35.1-43.9); Red Blood Count 4.54 M/mm3 (4.2-5.4); White Blood Count 5.6 K/mm3 (4.4-11.0)
[2023-04-18 10:25] LABS: AST(SGOT) 15 U/L (15-37); Alanine Aminotransfer ALT/SGPT 18 U/L (13-56); Albumin, Serum 3.8 g/dL (3.2-5.0); Alkaline Phosphatase 88 U/L (45-117); Anion Gap 6 (5-15); BUN 18 mg/dL (7-18); BUN/Creat Ratio 18.9 RATIO (10-20); Calcium,Total 9.1 mg/dL (8.5-10.1); Chloride 108 mmol/L (98-107); Cholesterol 194 mg/dL (200); Creatinine, Serum 0.95 mg/dL (0.55-1.02); EST Glomerular Filtration Rate 68 mL/min (>60); Est Glom Filt Rate - Afr Amer 82 mL/min (>60); Globulin 3.7 g/dL (2.2-4.2); Glucose 97 mg/dL (74-106); High Density Lipoprotein 59 mg/dL; Potassium 3.7 mmol/L (3.5-5.1); Protein, Total 7.5 g/dL (6.4-8.2); Sodium Level 141 mmol/L (136-145); Triglycerides 91 mg/dL; Very Low Density Lipoprotein 18 mg/dL (5-40)
== END | disposition home or self-care (01) ==
PROVIDERS: PCP Student in an Organized Health Care Education/Training Program; Referring Provider Internal Medicine Gastroenterology; Visit Provider Internal Medicine Gastroenterology
DX: K50.90 Crohn's disease, unspecified, without complications (principal)
CPT/HCPCS: 36415; 80053; 80061; 85025

== ENCOUNTER → 2023-08-23 | Outpatient (CLI) | payer OTHER, SELFPAY ==
[2023-08-23 08:16] LABS: Absolute Lymphocyte Count 2.07 X10^3/uL (0.83-4.51); Absolute Neutrophil Count 2.5 X10^3/uL (2.0-7.7); Basophil# 0.03 X10^3/uL; Basophil% 0.6 % (0-1); Eosinophil# 0.13 X10^3/uL; Eosinophils% 2.5 % (0-5); Hematocrit 40.6 % (37-47); Hemoglobin 12.9 g/dL (12.0-15.0); Lymphocyte # 2.07 X10^3/ul (0.83-4.51); Lymphocyte % 39.8 % (19-41); Mean Corp Hgb Conc 31.8 g/dL (32-36); Mean Corpuscular Hgb 30.4 pg (27.0-32.0); Mean Corpuscular Volume 95.5 fL (81-99); Mean Platelet Vol. 10.9 fl (6.2-12.0); Monocyte# 0.43 X10^3/uL; Monocyte% 8.3 % (0-10); NRBC Flagged by Analyzer 0 % (0-5); Neutrophil # 2.53 X10^3/uL (2.7-7.7); Neutrophil % 48.6 % (47-70); Platelet Count 233 K/mm3 (150-450); RBC Distribution Width CV 13.5 % (11.6-14.6); RBC Distribution Width SD 47.8 fl (35.1-43.9); Red Blood Count 4.25 M/mm3 (4.2-5.4); White Blood Count 5.2 K/mm3 (4.4-11.0)
[2023-08-23 09:01] LABS: ALB/GLOB Ratio 1.3 RATIO (0.9-2.4); AST(SGOT) 13 U/L (15-37); Alanine Aminotransfer ALT/SGPT 22 U/L (13-56); Albumin, Serum 4.3 g/dL (3.2-5.0); Alkaline Phosphatase 70 U/L (45-117); Anion Gap 5 (5-15); BUN 22 mg/dL (7-18); BUN/Creat Ratio 24.2 RATIO (10-20); CRP < 2.90 mg/L (0.0-3.0); Chloride 109 mmol/L (98-107); Creatinine, Serum 0.91 mg/dL (0.55-1.02); EST Glomerular Filtration Rate 71 mL/min (>60); Est Glom Filt Rate - Afr Amer 86 mL/min (>60); Globulin 3.2 g/dL (2.2-4.2); Glucose 98 mg/dL (74-106); Potassium 3.3 mmol/L (3.5-5.1); Protein, Total 7.5 g/dL (6.4-8.2); Sodium Level 140 mmol/L (136-145)
[2023-08-23 09:32] LABS: Erythrocyte Sedimentation Rate 2 mm/hr (0-30)
[2023-08-30 17:07] LABS: Calprotectin, Stool 310 ug/g (0-120)
== END | disposition home or self-care (01) ==
PROVIDERS: PCP Student in an Organized Health Care Education/Training Program; Referring Provider Internal Medicine Gastroenterology; Visit Provider Internal Medicine Gastroenterology
DX: K50.90 Crohn's disease, unspecified, without complications (principal)
CPT/HCPCS: 36415; 80053; 83630; 83993; 85025; 85652; 86140

== ENCOUNTER → 2023-09-05 | Outpatient (CLI) | payer OTHER, SELFPAY ==
[2023-09-05 20:41] LABS: Estradiol 18.1 pg/mL; Follicle Stimulating Hormone 89.4 mIU/mL; Thyroid Stim Hormone (TSH) 0.37 uIU/mL (0.358-3.74)
[2023-09-07 08:10] LABS: Thyroid Peroxidase AB 14 IU/mL (0-34)
== END | disposition home or self-care (01) ==
LOC: LAB 14:13
PROVIDERS: PCP Student in an Organized Health Care Education/Training Program; Referring Provider Nurse Practitioner Women's Health; Visit Provider Nurse Practitioner Women's Health
DX: Z13.29 Encounter for screening for other suspected endocrine disorder (principal); R23.2 Flushing
CPT/HCPCS: 36415; 82670; 83001; 84439; 84443; 86376

== ENCOUNTER 2023-09-21 06:01 | Day surgery (SDC) | payer OTHER, SELFPAY ==
[2023-09-21] VITALS (7 sets, daily range): BP systolic 105–124; BP diastolic 74–93; PULSE 70–84; RESP 16; TEMP 36.3–36.6; O2SAT 98–100; BMI 28.4
--- NOTE | 2023-09-21 | EGD_PTH ---
PATIENT: ISAK QUEEN LOC: EN U#:[id number] AGE/SX: 42/F ROOM: RE09/21/[address]: Dr. Pedrito Brock DO : 1980 BED: DIS: 09/21/2023 SPEC #: [id number] RECD: 09/21/23 10:35 STATUS: MALIA RILEY #: [id number] RENATE: 09/21/23 00:[address]: Pedrito Brock DEPT: SURGICAL PATHOLOGY RECD BY: Josefina Nieves ENTERED: 09/21/23 12:30 SP TYPE: EGD BIOPSY OT DR: Dr. To Longoria DO Tissues: A - Esophageal mucous membrane B - Ileum, NOS C - COLON BIOPSY Procedures: Special Stain Group II Surgery Specimen Level IV Alcian Blue/PAS (control) HEADER OPERATION: Colonoscopy with biopsy, EGD with biopsy PRE-OP DIAGNOSIS: Diarrhea, status post right hemicolectomy, GERD TISSUE SUBMITTED: A - Distal esophagus biopsy, B - Terminal ileum biopsy, C - Random colon biopsies MICROSCOPIC DIAGNOSIS A. Distal esophagus, biopsy: Fragments of gastric mucosa with mild to moderate chronic inflammation. A minute fragment of superficial benign squamous epithelium. Intestinal metaplasia (goblet cell metaplasia) not identified. See comment. B. Terminal ileum, biopsy: Fragments of small intestinal mucosa, no pathologic diagnosis. C. Colon, random biopsy: Fragments of colonic mucosa, no pathologic diagnosis. SJ:anna 09/22/2023 COMMENT A. Alcian blue/PAS stain with matched control is used in the evaluation of the specimen. MICROSCOPIC DESCRIPTION Slides are reviewed. GROSS DESCRIPTION A - Received in fixative is one container labeled with the patient's name and designated distal esophagus. The specimen consists of two irregular fragments of light del angel soft tissue that in aggregate measure 0.7 x 0.5 x 0.1 cm. The specimen is totally submitted in one cassette. B - Received in fixative is one container labeled with the patient's name and designated terminal ileum. The specimen consists of multiple irregular fragments of light del angel soft tissue that in aggregate measure 1.0 x 0.5 x 0.1 cm. The specimen is totally submitted in one cassette. C - Received in fixative is one container labeled with the patient's name and designated random colon. The specimen consists of multiple irregular fragments of light del angel soft tissue that in aggregate measure 1.5 x 1.0 x 0.1 cm. The specimen is totally submitted in one cassette. / AM:anna 09/21/2023 TC:3 CPT: 36883 x3, 75058
[2023-09-21] MEDS: Lactated Ringers 1,000 ML 15 ML IV (06:32)
--- NOTE | 2023-09-21 07:01 | HP.PCM_ITS ---
History and Physical Date of Admission: 09/21/23 42 F who presents to the office today for PMH post COVID myocarditis; anxiety/depression; asthma; cystitis; SVT. PSH right hemicolectomy ; left oophorectomy . FH colon cancer, maternal grandfather; esophageal cancer, paternal grandfather. Prior workup: ? EGD and colonoscopy 10.23.20 Dr. Anaya. EGD noting gastritis without specimens collected. ? Esophageal manometry, pH monitoring. Colonoscopy found likely malignant tumor of proximal ascending colon; sigmoid diverticulosis; nonbleeding internal hemorrhoids. 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 Recommend right hemicolectomy Right hemicolectomy 12.28.[address] Mckinney with 2 day hospitalization. [facility] presentation 01.11.21 with abdominal pain diagnosed as postoperative and ruptured left ovarian cyst. Colectomy complication of hernia for which Dr. Karli Pascual performed large periumbilical and infraumbilical ventral hernia incisional hernia repair 06.28.21 with hospitalization until 06.30.21. Hernia repair complicated with formation of seroma causing abdominal pain and requiring placement of pigtail catheter 07.14.21 with negative cultures. Drain pulled 07.19.21. ? Colonoscopy 11.10.21 Dr. Pascual noting patent end-to-end ileo- colonic anastomosis. No specimens collected. *BGI established OV 12.06.22. Has been changed diet to keto/low carb which has been helpful in reducing diarrhea with urgency and related incontinence. GERD an issue but well maintain on PPI 40mg with titration downward resulting in recurrence of symptoms. Plan biochemical workup and stool testing. EGD and colonoscopy; Brice chose to pursue EGD only. Biochemical ESR, CMP, CRP, AMA, ASM, FERNANDO comp, ANCA, celiac, IgGAM, EDDIE without pertinent abnormality. IgE L2, IBD suggestive of Crohn?s (atypical pANCA, AMCA) Stool study lactoferrin WNL Referred to Dr. Joyce for IgE level. Capsule endoscopy 01.30.23 noting stomach to have increased bile with associated erythema and irritation; small bowel focal erythema without ulceration or significant inflammation; IC valve noted to have edema. ? Azathioprine start EGD 02.16.23 Way deployed; irregular Zline 32cm without metaplasia; non- bleeding erosive gastropathy, gastritis; erythematous duodenopathy, Chikis gland hyperplasia. Biochemical CBC, CMP, LFT, Lipid without pertinent abnormality. 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 Low concern for immunodeficiency though will perform further bioche mical testing approximately 02.19.23. OV 07.06.23 Reports that she has been doing very well without symptoms to address at this time; Has been doing a keto day on/off and notes days with increased carbs cause her to have symptoms. Has been taking medication as prescribed. Needs to return to Dr. Joyce yet. ROS Const Constitutional: Positive for fever(s) (feel like it), headache(s) (full pressure), sleep problems and change in appetite (eating less); No body ache, chills, fatigue or abnormal sleep pattern Eyes Eyes: No blurry vision, change in vision, double vision, irritation, discharge or dry eyes ENT ENT: Positive for sinus pressure, nasal discharge (green/yellow), post nasal drip, headache(s) (full pressure), hoarseness and sore throat; No abnormal hearing (not new or worsening from baseline), ear or mastoid pain, ear discharge, ear pressure, tinnitus, dizziness/vertigo, nosebleed/epistaxis, nasal congestion, sinus pain, facial pain, dental pain, difficulty swallowing, bad breath, lip swelling, neck pain, tongue swelling or throat swelling Resp Respiratory: Positive for cough Cough: Yes non-productive and shortness of breath (with cough); No change in phlegm color, chest congestion, hemoptysis, pain on inspiration, pain with cough, stridor or wheezing Cardio Cardiology: No chest pain at rest, chest pain with exertion, shortness of breath, dyspnea on exertion or lightheadedness Gastro GI: No abdominal pain, change in bowel habits or difficulty swallowing Genitourinary-Female: No difficulty urinating, burning urination, painful urination or urinary incontinence Musc Musculoskeletal: No neck pain Neuro Neurology: Positive for headache(s) (full pressure); No abnormal hearing (not new or worsening from baseline) Psych Psychiatric: No abnormal sleep pattern and Positive for change in appetite (eating less) Endo Endocrine: No fatigue Aller/Imm Allergy/Immunologic: No lip swelling, throat swelling, tongue swelling or wheezing Quality Reporting Tobacco Screening ([facility] 138) Smoking Status: Never smoker Assessment and Plan Assessment and Plan (1) Diarrhea: Status: Chronic Qualifiers: Diarrhea type: functional diarrhea Qualified Code(s): K59.1 - Functional diarrhea Plan: Her genetic testing had 1 marker positive that was extremely high for Crohn's disease. I think she has components of osmotic and secretory diarrhea. I think her osmotic diarrhea comes from her colonic resection resulting in less bile reabsorption. Also think she has a secretory diarrhea possibly secondary to inflammatory bowel disease. We will put her on azathioprine 50 mg in the morning and cholestyramine at night. She will follow-up in approximately 4 months. (2) S/P right hemicolectomy: Status: Chronic Comment: 2020 Dr. Mckinney Plan: Status post right hemicolectomy due to a very large tubular villous adenoma. Her last colonoscopy approximately a year ago did not show of abnormalities at the site of anastomosis . She can have a colonoscopy approximately a year. (3) GERD (gastroesophageal reflux disease): Status: Acute Plan: Nonerosive gastroesophageal reflux disease was seen on her upper endoscopy and confirmed by Way pH monitoring. Her DeMeester score was 8. She does respond very well to PPI therapy so we will continue that for now. When she undergoes her colonoscopy we will also perform an EGD because she is having refractory GERD symptoms and chest pain with a history of erosive esophagitis. (4) Personal history of colonic polyps: Status: Resolved Plan: She will undergo colonoscopy toward the end of this year in about 6 months from now. I have examined the patient and the H&P has been reviewed. There are no clinical changes since date of exam.
--- NOTE | 2023-09-21 07:51 | OP.CCLET_ITS ---
09/21/2023 To Longoria [address] [place] [address] Re : Upper GI endoscopy procedure for Brice Gomez Dear Dr. Longoria This procedure was performed on September. My impressions and recommendations are as follows: Impressions : - LA Grade A reflux esophagitis with no bleeding. Biopsied. - Normal stomach. - Normal first portion of the duodenum. Recommendations : - Discharge patient to home. - Resume previous diet. - Continue present medications. - Await pathology results. - Esophageal Manometry and possible repeat of PARSONS ph study My findings are described in the full procedure note, which is enclosed. If I can be of further assistance, please feel free to contact me at . Sincerely, Pedrito Brock, 09/21/2023 7:51:00 AM This report has been signed electronically.
--- NOTE | 2023-09-21 07:51 | OP.EGD_ITS ---
Patient Name: Brice Gomez Procedure Date: 09/21/2023 7:06 AM Date of : 1980 Age: 42 Procedure: Upper GI endoscopy Indications: Functional Dyspepsia, Heartburn, Failure to respond to medical treatment Providers: Pedrito Brock DO Referring MD: To Longoria Medicines: Monitored Anesthesia Care Patient Profile: This is a 42 year old female. Refer to note in patient chart for documentation of history and physical. Patient has symptoms of chronic chest pain and chronic heartburn. Complications: No immediate complications. Procedure: Pre-Anesthesia Assessment: - Prior to the procedure, a History and Physical was performed, and patient medications and allergies were reviewed. The patient is competent. The risks and benefits of the procedure and the sedation options and risks were discussed with the patient. All questions were answered and informed consent was obtained. Patient identification and proposed procedure were verified by the physician in the pre-procedure area. Mental Status Examination: alert and oriented. Airway Examination: normal oropharyngeal airway and neck mobility. Respiratory Examination: clear to auscultation. CV Examination: normal. Prophylactic Antibiotics: The patient does not require prophylactic antibiotics. Prior Anticoagulants: The patient has taken no anticoagulant or antiplatelet agents. After reviewing the risks and benefits, the patient was deemed in satisfactory condition to undergo the procedure. The anesthesia plan was to use monitored anesthesia care (MAC). Immediately prior to administration of medications, the patient was re-assessed for adequacy to receive sedatives. The heart rate, respiratory rate, oxygen saturations, blood pressure, adequacy of pulmonary ventilation, and response to care were monitored throughout the procedure. The physical status of the patient was re-assessed after the procedure. After obtaining informed consent, the endoscope was passed under direct vision. Throughout the procedure, the patient's blood pressure, pulse, and oxygen saturations were monitored continuously. The colonoscope was introduced through the mouth, and advanced to the second part of duodenum. The upper GI endoscopy was accomplished without difficulty. The patient tolerated the procedure well. Scope In: 7:20:35 AM Scope Out: 7:25:05 AM Total Procedure Duration Time 0 hours 4 minutes 30 seconds Findings: LA Grade A (one or more mucosal breaks less than 5 mm, not extending between tops of 2 mucosal folds) esophagitis with no bleeding was found 35 to 38 cm from the incisors. Biopsies were taken with a cold forceps for histology. Verification of patient identification for the specimen was done. Estimated blood loss was minimal. The entire examined stomach was normal. The first portion of the duodenum was normal. Impression: - LA Grade A reflux esophagitis with no bleeding. Biopsied. - Normal stomach. - Normal first portion of the duodenum. Recommendation: - Discharge patient to home. - Resume previous diet. - Continue present medications. - Await pathology results. - Esophageal Manometry and possible repeat of [facility] ph study Procedure Code(s): --- Professional --- 70159, Esophagogastroduodenoscopy, flexible, transoral; with biopsy, single or multiple CPT copyright 2021 [employer]. All rights reserved. The codes documented in this report are preliminary and upon manager business operations review may be revised to meet current compliance requirements. Pedrito Brock DO 09/21/2023 7:51:00 AM This report has been signed electronically. Number of Addenda: 0 Note Initiated On: 09/21/2023 7:06 AM
--- NOTE | 2023-09-21 07:54 | OP.COLON_ITS ---
Patient Name: Brice Gomez Procedure Date: 09/21/2023 7:25 AM Date of : 1980 Age: 42 Procedure: Colonoscopy Indications: High risk colon cancer surveillance: Personal history of colon cancer, Incidental - Chronic diarrhea Providers: Pedrito Brock DO Referring MD: To Longoria Medicines: Monitored Anesthesia Care Patient Profile: This is a 42 year old female. Refer to note in patient chart for documentation of history and physical. Patient has symptoms of chronic chest pain and chronic heartburn. Last Colonoscopy: 3 years ago. Complications: No immediate complications. Procedure: Pre-Anesthesia Assessment: - Prior to the procedure, a History and Physical was performed, and patient medications and allergies were reviewed. The patient is competent. The risks and benefits of the procedure and the sedation options and risks were discussed with the patient. All questions were answered and informed consent was obtained. Patient identification and proposed procedure were verified by the physician in the pre-procedure area. Mental Status Examination: alert and oriented. Airway Examination: normal oropharyngeal airway and neck mobility. Respiratory Examination: clear to auscultation. CV Examination: normal. Prophylactic Antibiotics: The patient does not require prophylactic antibiotics. Prior Anticoagulants: The patient has taken no anticoagulant or antiplatelet agents. After reviewing the risks and benefits, the patient was deemed in satisfactory condition to undergo the procedure. The anesthesia plan was to use monitored anesthesia care (MAC). Immediately prior to administration of medications, the patient was re-assessed for adequacy to receive sedatives. The heart rate, respiratory rate, oxygen saturations, blood pressure, adequacy of pulmonary ventilation, and response to care were monitored throughout the procedure. The physical status of the patient was re-assessed after the procedure. After I obtained informed consent, the scope was passed under direct vision. Throughout the procedure, the patient's blood pressure, pulse, and oxygen saturations were monitored continuously. The colonoscope was introduced through the anus and advanced to 10 cm into the ileum. The colonoscopy was performed without difficulty. The patient tolerated the procedure well. The quality of the bowel preparation was good. The terminal ileum, ileocecal valve, appendiceal orifice, and rectum were photographed. Scope In: 7:28:07 AM Scope Withdrawal Time 0 hours 8 minutes 45 seconds Scope Out: 7:40:15 AM Total Procedure Duration Time 0 hours 12 minutes 8 seconds Findings: The perianal and digital rectal examinations were normal. There was evidence of a prior end-to-side ileo-colonic anastomosis in the ascending colon. This was patent and was characterized by healthy appearing mucosa. The anastomosis was traversed. No other significant abnormalities were identified in a careful examination of the remainder of the colon. The terminal ileum appeared normal. Biopsies were taken with a cold forceps for histology. Verification of patient identification for the specimen was done. Estimated blood loss was minimal. Impression: - Patent end-to-side ileo-colonic anastomosis, characterized by healthy appearing mucosa. - The examined portion of the ileum was normal. Biopsied. Recommendation: - Discharge patient to home. - Resume previous diet. - Continue present medications. - Await pathology results. - Repeat colonoscopy in 5 years for surveillance. Procedure Code(s): --- Professional --- 17069, Colonoscopy, flexible; with biopsy, single or multiple CPT copyright 2021 [employer]. All rights reserved. The codes documented in this report are preliminary and upon director field services review may be revised to meet current compliance requirements. Pedrito Brock DO 09/21/2023 7:53:50 AM This report has been signed electronically. Number of Addenda: 0 Note Initiated On: 09/21/2023 7:25 AM
--- NOTE | 2023-09-21 07:54 | OP.CCLET_ITS ---
09/21/2023 To Longoria [address] [place] [address] Re : Colonoscopy procedure for Brice Bonnerton Dear Dr. Longoria This procedure was performed on September. My impressions and recommendations are as follows: Impressions : - Patent end-to-side ileo-colonic anastomosis, characterized by healthy appearing mucosa. - The examined portion of the ileum was normal. Biopsied. Recommendations : - Discharge patient to home. - Resume previous diet. - Continue present medications. - Await pathology results. - Repeat colonoscopy in 5 years for surveillance. My findings are described in the full procedure note, which is enclosed. If I can be of further assistance, please feel free to contact me at . Sincerely, Pedrito Brock, 09/21/2023 7:53:50 AM This report has been signed electronically.
== END 2023-09-21 08:39 | disposition home or self-care (01) ==
LOC: EN 06:02 → AC 06:04
PROVIDERS: PCP Student in an Organized Health Care Education/Training Program; Referring Provider Student in an Organized Health Care Education/Training Program; Visit Provider Internal Medicine Gastroenterology
PROC: 0DJD8ZZ Inspection of Lower Intestinal Tract, Via Natural or Artificial Opening Endoscopic (ICD-10-PCS; CPT 45378; principal; 2023-09-21 06:55)
DX: Z86.010 Personal history of colon polyps (principal); K59.1 Functional diarrhea; K21.00 Gastro-esophageal reflux disease with esophagitis, without bleeding; Z80.0 Family history of malignant neoplasm of digestive organs; Z87.898 Personal history of other specified conditions; Z90.49 Acquired absence of other specified parts of digestive tract; K29.50 Unspecified chronic gastritis without bleeding
CPT/HCPCS: 43239; 45380; 88305; 88313; J7120; J2405

== ENCOUNTER 2023-10-27 08:25 | Day surgery (SDC) | payer OTHER, SELFPAY ==
[2023-10-27] MEDS: Lidocaine Jelly 2% 20 ML Syringe (URO-JET) 1 APPLIC (08:28)
[2023-10-27 08:30] VITALS: BP 131/88; PULSE 82; RESP 18; TEMP 36.3; O2SAT 18
--- OUTSIDE RECORDS SUMMARY | 2023-10-27 08:48 | XMS RPT_ITS | CCD ---
Author Name Unknown Address [id number] [place] [address] Organization [facility] Care Team Providers Care Apple Press Operator Name Role Phone [place] MERCHANDISE SUPERVISOR, Geri S Unavailable Afshin Mckinney Unavailable Unavailable Shannon Maciel Unavailable Unavailable None, No PCP Unavailable Unavailable Matthews DOTo L Primary Care Provider Matthews DOTo Primary Care Provider Matthews DOTo Primary Care Provider Matthews DO To L Primary Care Provider BENZ, FELI W Attending Unavailable BENZ, FELI W Referring Unavailable MATTHEWS, TO L Primary Care Unavailable BENZ, FELI W Attending Unavailable BENZ, FELI W Referring Unavailable MATTHEWS, TO L Primary Care Unavailable BENZ, FELI W Attending Unavailable MATTHEWS, TO L Primary Care Unavailable BENZ, FELI W Attending Unavailable BENZ, FELI W Referring Unavailable MATTHEWS, TO L Primary Care Unavailable BENZ, FELI W Attending Unavailable BENZ, FELI W Referring Unavailable MATTHEWS, TO L Primary Care Unavailable BENZ, FELI W Attending Unavailable BENZ, FELI W Referring Unavailable MATTHEWS, TO L Primary Care Unavailable MATTHEWS, TO L Primary Care Unavailable KIMBER JORGE Attending Unavailable MATTHEWS, TO L Primary Care Unavailable MATTHEWS, TO L Primary Care Unavailable MATTHEWS, TO L Attending Unavailable MATTHEWS, TO L Primary Care Unavailable MAGGIE JOYCE Attending Unavailable MATTHEWS, TO L Primary Care Unavailable MATTHEWS, TO L Primary Care Unavailable MATTHEWS, TO L Attending Unavailable Allergies Allergy Classification Reported Allergen(s) Allergy Type Date of Onset Reaction(s) Facility (3 sources) Cephalexin Drug Allergy 09-27-[address] [facility] (2 sources) Citalopram Drug Allergy 09-27-[address] [facility] (2 sources) Clindamycin Drug Allergy 09-27-[address] [facility] (2 sources) guaiFENesin / Pseudoephedrine Drug Allergy 09-27-[address] [facility] (3 sources) metroNIDAZOLE Drug Allergy 09-27-[address] [facility] (2 sources) Minocycline Drug Allergy 09-27-[address] [facility] (2 sources) Penicillin V Drug Allergy 09-27-[address] [facility] (20 sources) Citalopram Drug Allergy 02-15-20 06 GI Upset [facility] (20 sources) Clarithromycin; Translations: [CLARITHROMYCIN] Drug Allergy 01-08-20 14 [facility] Work Phone: (20 sources) Minocycline; Translations: [MINOCYCLINE] Drug Allergy 02-15-20 06 Hives [facility] (3 sources) Penicillins; Translations: [Penicillins] Allergy to drug (finding) 03-14-20 06 [facility] Other [facility] (1 source) Pseudoephedrine Drug Allergy [facility] Work Phone: (20 sources) Cephalexin; Translations: [CEPHALEXIN] Drug Allergy 05-11-20 09 [facility] Work Phone: (20 sources) Clindamycin; Translations: [CLINDAMYCIN] Drug Allergy 09-27-20 16 Unknown [facility] (20 sources) guaiFENesin / Phenylephrine; Translations: [PHENYLEPHRINE-GUA IFENESIN] Drug Allergy 02-15-20 06 Intolerance [facility] (20 sources) metroNIDAZOLE; Translations: [METRONIDAZOLE HCL] Drug Allergy 01-08-20 14 [facility] Work Phone: (3 sources) Penicillins Propensity to adverse reactions 03-14-20 06 Rash, Itching [facility] Work Phone: (20 sources) Pseudoephedrine; Translations: [PSEUDOEPHEDRINE] Drug Allergy 03-15-20 19 Other: See Comments [facility] (20 sources) Bee Sting; Translations: [BEE STING] Allergy to substance 05-02-20 11 Hives [facility] Work Phone: (20 sources) Penicillins Propensity to adverse reactions 03-14-20 06 Rash, Itching [facility] Work Phone: (2 sources) Citalopram; Translations: [CITALOPRAM] Drug Allergy 02-15-20 06 [facility] Other [facility] [facility] Medications Current Medications Medication Drug Class(es) Dates Sig (Normalized) Sig (Original) 24 hr buPROPion hydrochloride 300 mg extended release oral tablet (20 sources) Aminoketone Start: 08-02-2023 End: 10-31-2023 take 1 tablet by mouth once daily buPROPion XL (WELLBUTRIN XL) 300 mg 24 hr tablet Take 1 tablet by mouth once daily. 90 tablet 0 08/02/2023 10/31/2023 Active Completed/Discontinued Medications Medication Drug Class(es) Dates Sig (Normalized) Sig (Original) [id number] 200 actuat albuterol 0.09 mg/actuat metered dose inhaler (20 sources) beta2-Adrenergic Agonist Start: 03-23-2020 take 2 puff(s) by inhalation every four hours as needed albuterol HFA (PROAIR HFA) 90 mcg/actuation inhaler Inhale 2 Puffs as instructed every 4 hours as needed. 1 Inhaler 3 03/23/2020 Active Problems Active Problems Problem Classification Problem Date Documented Da te Episodic/Chronic Administrative/social admission (1 source) Patient encounter status; Translations: [Encounter for health counseling related to travel] Episodic Anxiety disorders (20 sources) Generalized anxiety disorder; Translations: [Generalized anxiety disorder] Onset: 6 01-19-2022 Chronic Asthma (20 sources) Exercise-induced asthma; Translations: [Exercise induced bronchospasm] Onset: 7 08-15-2017 Chronic Disorders of lipid metabolism (17 sources) Dyslipidemia; Translations: [Hyperlipidemia, unspecified] Onset: 3 Chronic Esophageal disorders (20 sources) Gastroesophageal reflux disease without esophagitis; Translations: [Gastro-esophageal reflux disease without esophagitis] Onset: 2 01-19-2022 Chronic Immunizations and screening for infectious disease (2 sources) Requires diphtheria, tetanus and pertussis vaccination; Translations: [Encounter for immunization] Episodic Malaise and fatigue (20 sources) Asthenia; Translations: [Weakness] Onset: 0 06-22-2020 Episodic Mood disorders (20 sources) Depressive disorder; Translations: [Depression] Onset: 9 05-25-2011 Chronic Neoplasms of unspecified nature or uncertain behavior (1 source) Neoplasm of colon; Translations: [Colon neoplasm] Episodic Nonmalignant breast conditions (2 sources) Fibrocystic disease of breast; Translations: [Diffuse cystic mastopathy of unspecified breast] Onset: 7 08-24-2017 Chronic Nutritional deficiencies (20 sources) Vitamin D deficiency; Translations: [Vitamin D deficiency, unspecified] Onset: 5 05-05-2015 Chronic Other and unspecified benign neoplasm (1 source) Benign adenomatous neoplasm; 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] Episodic Other ear and sense organ disorders (3 sources) Decreased hearing ; Translations: [Unspecified hearing loss, bilateral] Onset: 3 Chronic Other eye disorders (20 sources) Bilateral vitreous floaters; Translations: [Other vitreous opacities, bilateral] Onset: 1 01-26-2021 Chronic Other eye disorders (20 sources) Bilateral posterior vitreous detachment; Translations: [Vitreous degeneration, bilateral] Onset: 1 01-26-2021 Chronic Other eye disorders (1 source) Red left eye; Translations: [Other specified disorders of eye and adnexa] Episodic Other female genital disorders (20 sources) Dyspareunia; Translations: [Dyspareunia] Onset: 3 02-14-2013 Chronic Other gastrointestinal disorders (20 sources) Irritable bowel syndrome with diarrhea; Translations: [Irritable bowel syndrome with diarrhea] Onset: 2 01-19-2022 Chronic Other gastrointestinal disorders (2 sources) Personal history of other diseases of the digestive system; Translations: [History of irritable bowel syndrome] Episodic Other gastrointestinal disorders (1 source) H/O: abdominal hernia; Translations: [History of hiatal hernia] Episodic Other gastrointestinal disorders (20 sources) Diarrhea; Translations: [Diarrhea, unspecified] Onset: 2 01-19-2022 Episodic Other infections; including parasitic (1 source) Disorder due to infection; Translations: [Unspecified infectious disease] Episodic Other inflammatory condition of skin (20 sources) Psoriasis; Translations: [Other psoriasis] Onset: 2 04-11-2012 Chronic Other lower respiratory disease (1 source) H/O: respiratory disease; Translations: [History of sleep apnea] Episodic Other nutritional; endocrine; and metabolic disorders (20 sources) Obese class I; Translations: [Obesity, unspecified] Onset: 2 01-19-2022 Chronic Other screening for suspected conditions (not mental disorders or infectious disease) (20 sources) Thyroid function tests abnormal; Translations: [Abnormal results of thyroid function studies] Onset: 2 01-19-2022 Episodic Other upper respiratory disease (20 sources) Allergic rhinitis; Translations: [Allergic rhinitis, unspecified] 08-15-2017 Chronic Other upper respiratory disease (1 source) Chronic rhinitis; Translations: [Chronic rhinitis] Chronic Other upper respiratory infections (1 source) Viral upper respiratory tract infection; Translations: [Acute upper respiratory infection, unspecified] Episodic Otitis media and related conditions (1 source) Otitis media; Translations: [Unspecified nonsuppurative otitis media, bilateral] Episodic Poisoning by nonmedicinal substances (1 source) Toxic effect of venom; Translations: [Toxic effect of contact with unspecified venomous animal, accidental (unintentional), initial encounter] Episodic Past or Other Problems Problem Classification Problem Date Documented Date Episodic/Chronic Abdominal pain (20 sources) Right upper quadrant pain; Translations: [Right upper quadrant pain] Onset: 01-19-2022 01-19-2022 Episodic Blindness and vision defects (20 sources) Severe myopia; Translations: [Myopia, bilateral] Onset: 11-06-2017 11-06-2017 Episodic Calculus of urinary tract (20 sources) Calculus of kidney; Translations: [Kidney stone] Onset: 11-06-2009 05-25-2011 Episodic Cardiac dysrhythmias (20 sources) Palpitations; Translations: [Palpitations] Onset: 01-19-2022 01-19-2022 Episodic Genitourinary symptoms and ill-defined conditions (20 sources) Alireza hematuria; Translations: [Gross hematuria] Onset: 01-11-2023 Episodic Other and unspecified benign neoplasm (20 sources) Fibroadenoma of breast; Translations: [Benign neoplasm of unspecified breast] Onset: 10-08-2012 10-08-2012 Episodic Other connective tissue disease (20 sources) Shoulder girdle weakness; Translations: [Other symptoms and signs involving the musculoskeletal system] Onset: 06-22-2020 06-22-2020 Episodic Other eye disorders (20 sources) Chalazion of lower eyelid of left eye; Translations: [Chalazion left lower eyelid] Onset: 01-14-2013 01-14-2013 Episodic Other infections; including parasitic (20 sources) Personal history of other infectious and parasitic diseases; Translations: [History of 2019 novel coronavirus disease (COVID-19)] Onset: 01-19-2022 01-19-2022 Episodic Residual codes; unclassified (20 sources) History of photorefractive keratectomy; Translations: [Other specified postprocedural states] Onset: 01-06-2018 01-06-2018 Episodic Residual codes; unclassified (20 sources) History of colectomy; Translations: [Acquired absence of other specified parts of digestive tract] Onset: 01-19-2022 01-19-2022 Episodic Residual codes; unclassified (17 sources) Human leukocyte antigen B27 test positive; Translations: [Genetic susceptibility to other disease] Onset: 01-11-2023 Episodic Respiratory failure; insufficiency; arrest (adult) (20 sources) Acute hypoxemic respiratory failure; Translations: [Acute respiratory failure with hypoxia] Onset: 04-06-2020 04-06-2020 Episodic Spondylosis; intervertebral disc disorders; other back problems (20 sources) Neck pain; Translations: [Cervicalgia] Onset: 01-14-2013 01-14-2013 Episodic Sprains and strains (2 sources) Sprain of unspecified ligament of right ankle, initial encounter; Translations: [Sprain of unspecified ligament of right ankle, initial encounter] Onset: 09-27-2016 09-27-2016 Episodic Unclassified (1 source) History of clinical finding in subject; Translations: [History of tachycardia] Viral infection (20 sources) Other specified viral infection; Translations: [Disease caused by 2019-nCoV] Onset: 03-25-2020 04-06-2020 Episodic NEGATED: Highlighted row has not occurred!Residual codes; unclassified (2 sources) Disease Episodic Results Test Name Value Interpretation Reference Range Facil ity Vital Signs Date Time Vital Sign Value Performing Clinician Facility 10-03-2023 15:29-0500 Body temperature 98.1 [degF] To Matthews DO Work Phone: [facility] 10-03-2023 15:29-0500 Body weight 67.59 kg To Matthews DO Work Phone: [facility] 10-03-2023 15:29-0500 Diastolic blood pressure 60 mm[Hg] To Matthews DO Work Phone: [facility] 10-03-2023 15:29-0500 Heart rate 80 /min To Matthews DO Work Phone: [facility] 10-03-2023 15:29-0500 Respiratory rate 12 /min To Matthews DO Work Phone: [facility] 10-03-2023 15:29-0500 Systolic blood pressure 110 mm[Hg] To Matthews DO Work Phone: [facility] 01-19-2023 14:22-0500 Body weight 68.95 kg Maggie Joyce MD Work Phone: [facility] 01-19-2023 14:22-0500 Diastolic blood pressure 51 mm[Hg] Maggie Joyce MD Work Phone: [facility] 01-19-2023 14:22-0500 Heart rate 84 /min Maggie Joyce MD Work Phone: [facility] 01-19-2023 14:22-0500 SaO2% (BldA) [Mass fraction] 98 % Maggie Joyce MD Work Phone: [facility] 01-19-2023 14:22-0500 Systolic blood pressure 119 mm[Hg] Maggie Joyce MD Work Phone: [facility] 01-11-2023 19:17-0500 Body temperature 98.29 [degF] To Matthews DO Work Phone: [facility] 01-11-2023 19:17-0500 Body weight 68.95 kg To Matthews DO Work Phone: [facility] 01-11-2023 19:17-0500 Diastolic blood pressure 60 mm[Hg] To Matthews DO Work Phone: [facility] 01-11-2023 19:17-0500 Heart rate 76 /min To Matthews DO Work Phone: [facility] 01-11-2023 19:17-0500 Respiratory rate 16 /min To Matthews DO Work Phone: [facility] 01-11-2023 19:17-0500 Systolic blood pressure 120 mm[Hg] To Matthews DO Work Phone: [facility] 11-22-2022 15:04-0500 Diastolic blood pressure 90 mm[Hg] Kimber Haagen LENS FABRICATING MACHINE TENDER.SUPPORT MERCHANDISER Work Phone: [facility] 11-22-2022 15:04-0500 Heart rate 84 /min Kimber Haagen LENS FABRICATING MACHINE TENDER.SUPPORT MERCHANDISER Work Phone: [facility] 11-22-2022 15:04-0500 Respiratory rate 18 /min Kimber Haagen LENS FABRICATING MACHINE TENDER.SUPPORT MERCHANDISER Work Phone: [facility] 11-22-2022 15:04-0500 Systolic blood pressure 128 mm[Hg] Kimber Haagen LENS FABRICATING MACHINE TENDER.SUPPORT MERCHANDISER Work Phone: [facility] 10-29-2022 12:03-0500 Body temperature 98.29 [degF] Torie Praisler-Wood LENS FABRICATING MACHINE TENDER.SUPPORT MERCHANDISER Work Phone: [facility] 10-29-2022 12:03-0500 Body weight 70.31 kg Torie Praisler-Wood LENS FABRICATING MACHINE TENDER.SUPPORT MERCHANDISER Work Phone: [facility] 10-29-2022 12:03-0500 Diastolic blood pressure 98 mm[Hg] Torie Praisler-Wood LENS FABRICATING MACHINE TENDER.SUPPORT MERCHANDISER Work Phone: [facility] 10-29-2022 12:03-0500 Heart rate 102 /min Torie Praisler-Wood LENS FABRICATING MACHINE TENDER.SUPPORT MERCHANDISER Work Phone: [facility] 10-29-2022 12:03-0500 Respiratory rate 16 /min Torie Praisler-Wood LENS FABRICATING MACHINE TENDER.SUPPORT MERCHANDISER Work Phone: [facility] 10-29-2022 12:03-0500 SaO2% (BldA) [Mass fraction] 99 % Torie Praisler-Wood LENS FABRICATING MACHINE TENDER.SUPPORT MERCHANDISER Work Phone: [facility] 10-29-2022 12:03-0500 Systolic blood pressure 160 mm[Hg] Torie Praisler-Wood LENS FABRICATING MACHINE TENDER.SUPPORT MERCHANDISER Work Phone: [facility] 10-27-2022 07:59-0500 Body temperature 98.01 [degF] Zaki Pendlebury LENS FABRICATING MACHINE TENDER.SUPPORT MERCHANDISER Work Phone: [facility] 10-27-2022 07:59-0500 Body weight 69.31 [facility] LENS FABRICATING MACHINE TENDER.SUPPORT MERCHANDISER Work Phone: [facility] 10-27-2022 07:59-0500 Diastolic blood pressure 78 mm[Hg] Zaki Pendlebury LENS FABRICATING MACHINE TENDER.SUPPORT MERCHANDISER Work Phone: [facility] 10-27-2022 07:59-0500 Heart rate 115 /min Zaki Pendlebury LENS FABRICATING MACHINE TENDER.SUPPORT MERCHANDISER Work Phone: [facility] 10-27-2022 07:59-0500 Respiratory rate 18 /min Zaki Pendlebury LENS FABRICATING MACHINE TENDER.SUPPORT MERCHANDISER Work Phone: [facility] 10-27-2022 07:59-0500 SaO2% (BldA) [Mass fraction] 100 % Zaki Pendlebury LENS FABRICATING MACHINE TENDER.SUPPORT MERCHANDISER Work Phone: [facility] 10-27-2022 07:59-0500 Systolic blood pressure 132 mm[Hg] Zaki Pendlebury LENS FABRICATING MACHINE TENDER.SUPPORT MERCHANDISER Work Phone: [facility] 10-11-2022 16:35-0500 Body temperature 97.5 [degF] To Matthews DO Work Phone: [facility] 10-11-2022 16:35-0500 Body weight 69.4 kg To Matthews DO Work Phone: [facility] 10-11-2022 16:35-0500 Diastolic blood pressure 80 mm[Hg] To Matthews DO Work Phone: [facility] 10-11-2022 16:35-0500 Heart rate 80 /min To Matthews DO Work Phone: [facility] 10-11-2022 16:35-0500 Respiratory rate 16 /min To Matthews DO Work Phone: [facility] 10-11-2022 16:35-0500 Systolic blood pressure 120 mm[Hg] To Matthews DO Work Phone: [facility] 09-08-2022 17:33-0400 Body temperature 98.2 [degF] Romana Athy PA-C Work Phone: [facility] 09-08-2022 17:33-0400 Body weight 70.31 kg Romana Athy PA-C Work Phone: [facility] 09-08-2022 17:33-0400 Diastolic blood pressure 82 mm[Hg] Romana Athy PA-C Work Phone: [facility] 09-08-2022 17:33-0400 Heart rate 80 /min Romana Athy PA-C Work Phone: [facility] 09-08-2022 17:33-0400 Respiratory rate 16 /min Romana Athy PA-C Work Phone: [facility] 09-08-2022 17:33-0400 SaO2% (BldA) [Mass fraction] 98 % Romana Athy PA-C Work Phone: [facility] 09-08-2022 17:33-0400 Systolic blood pressure 132 mm[Hg] Romana Athy PA-C Work Phone: [facility] 08-10-2022 19:24-0400 Body temperature 98.4 [degF] To Matthews DO Work Phone: [facility] 08-10-2022 19:24-0400 Body weight 72.58 kg To Matthews DO Work Phone: [facility] 08-10-2022 19:24-0400 Diastolic blood pressure 70 mm[Hg] To Matthews DO Work Phone: [facility] 08-10-2022 19:24-0400 Heart rate 80 /min To Matthews DO Work Phone: [facility] 08-10-2022 19:24-0400 Respiratory rate 16 /min To Matthews DO Work Phone: [facility] 08-10-2022 19:24-0400 Systolic blood pressure 110 mm[Hg] To Matthews DO Work Phone: [facility] 11-24-2020 13:12-0500 BMI (Body Mass Index) 30.47 kg/m2 Afshin Hank DL-Pkanimu-Opvzdot [address] Work Phone: 11-24-2020 13:12-0500 Body weight 70.76 kg Afshin Hank WN-Yugkxnl-Vdlhl ll 2099 Work Phone: 11-24-2020 13:12-0500 BP Diastolic 74 mm[Hg] Afshin Hank VP-Dnggmce-Mlpvx ll [address] Work Phone: 11-24-2020 13:12-0500 BP Systolic 123 mm[Hg] Afshin Hank FW-Hfnbzhm-Plgay ll 20[address] Work Phone: 11-24-2020 13:12-0500 BSA (Body Surface Area) 1.[address]Tmocigl[address] Work Phone: 11-24-2020 13:12-0500 Height 152.4 cm Afshin Hank AG-Tcpogdv-Dpfad ll 2099 Work Phone: 11-24-2020 13:12-0500 Pulse (Heart Rate) 76 /min Afshin Hank HE-Jjdctlc-Pc lwell [address] Work Phone: 08-24-2017 09:01-0400 BMI (Body Mass Index) 26.87 kg/m2 Geri Hernandez MERCHANDISE SUPERVISOR [facility] 08-24-2017 09:01-0400 Body Temperature 98.1 [degF] Geri Carlisle MERCHANDISE SUPERVISOR [facility] 08-24-2017 09:01-0400 BP Diastolic 62 mm[Hg] Geri Hernandez MERCHANDISE SUPERVISOR [facility] 08-24-2017 09:01-0400 BP Systolic 94 mm[Hg] Geri Hernandez MERCHANDISE SUPERVISOR [facility] 08-24-2017 09:01-0400 Height 152.4 cm Geri Hernandez MERCHANDISE SUPERVISOR [facility] 08-24-2017 09:01-0400 Pulse (Heart Rate) 73 /min Geri Ng MERCHANDISE SUPERVISOR [facility] 08-24-2017 09:01-0400 Respiratory Rate 16 /min Geri Carlisle MERCHANDISE SUPERVISOR [facility] 08-24-2017 09:01-0400 Weight 62.42 kg Geri Hernandez MERCHANDISE SUPERVISOR [facility] 08-24-2017 09:01-0400 Weight 62.41 kg Geri Sheatings MERCHANDISE SUPERVISOR [facility] 09-27-2016 09:00-0500 BSA (Body Surface Area) 1.68 m2 Geri Ng MERCHANDISE SUPERVISOR [facility] Encounters Encounter Date Encounter Type Care Provider Facility Start: 10-03-2023 End: 10-04-2023 ambulatory TO MATTHEWS Facility:[facility] Start: 10-03-2023 End: 10-03-2023 Patient encounter procedure To Matthews DO Work Phone: [facility] Procedures Date Procedure Procedure Detail Performing Clinician Start: 11-03-2022 Mammography Kimber tompkins APRN.SUPPORT MERCHANDISER Work Phone: Start: 10-11-2022 Urnls dip stick/tabl et rgnt auto w/o microscopy To Matthews DO Work Phone: Start: 09-08-2022 Urnls dip stick/tabl et rgnt auto w/o microscopy Romana Zavala PA-C Work Phone: Start: 01-25-2021 Antibody screen Plan of Treatment Date Care Activity Detail Author Start: 08-10-2032 Urine microalbumin profile [facility] Start: 09-22-2025 HPV TESTING HPV TESTING [facility] Start: 09-22-2025 PAP TESTING PAP TESTING [facility] Start: 10-03-2024 Annual PCP Team Carpet Inspector andre Disease Visit Annual PCP Team Chronic Disease Visit [facility] Start: 10-03-2024 Covid-19 Vaccine () Covid-19 Vaccine () [facility] Immunizations Immunization Date Immunization Notes Care Provider Abelardo suggs 01-19-2023 pneumococcal polysaccharide vaccine, 23 valent Maggie Joyce MD Work Phone: [facility] 08-22-2022 influenza virus vacc ine, unspecified formulation Felibob Benz DO Work Phone: [facility] 08-10-2022 tetanus toxoid, redu bhupinder diphtheria toxoid, and acellular pertussis vaccine, adsorbed To Matthews DO Work Phone: [facility] Work Phone: 08-31-2020 influenza, injectabl e, quadrivalent, preservative free To Matthews DO Work Phone: [facility] Work Phone: 08-17-2017 influenza, seasonal, injectable To Matthews DO Work Phone: [facility] Work Phone: 09-14-2013 influenza virus vacc ine, unspecified formulation To Matthews DO Work Phone: [facility] 03-01-2011 tetanus toxoid, redu bhupinder diphtheria toxoid, and acellular pertussis vaccine, adsorbed To Matthews DO Work Phone: [facility] Work Phone: 09-18-2009 novel influenza-H1N1 -09, all formulations To Matthews DO Work Phone: [facility] Work Phone: 08-21-2009 influenza virus vacc ine, live, attenuated, for intranasal use To Matthews DO Work Phone: [facility] Work Phone: 08-26-2008 influenza virus vacc ine, unspecified formulation To Lisarison DO Work Phone: [facility] Work Phone: 10-19-2007 influenza virus vacc ine, unspecified formulation To Lisarison DO Work Phone: [facility] Work Phone: 09-15-2005 influenza virus vacc ine, unspecified formulation To Lisarison DO Work Phone: [facility] Work Phone: Payers Date Payer Category Payer Unknown [facility] P[facility] [employer] [id number] 2011-Present [phone] [address] [place] [address] PPO [id number] 2011 Unknown [facility] PPO CONNE[employer] GENERIC [id number] 2011-Present [phone] [address] [place] [address] PPO [id number] 2011 Unknown [id number] Social History Date Type Detail Facility Assertion Tobacco smoking consumption unknown (finding) [facility] [address] Work Phone: Start: 05-07-2020 End: 09-08-2022 Tobacco smoking status KYIS Never smoked tobacco [facility] Work Phone: Start: 01-17-2022 End: 10-03-2023 Alcohol intake Current drinker of alcohol (finding) [facility] Start: 04-28-2021 End: 11-21-2022 History SDOH Alcohol Frequency 3 [facility] Start: 04-28-2021 End: 11-21-2022 History SDOH Alcohol Std Drinks 1 [facility] Start: 08-31-2010 History SDOH Alcohol Comment Rarely [facility] Start: 04-28-2021 End: 11-21-2022 History SDOH Social Connections Phone 5 [facility] Start: 04-28-2021 End: 11-21-2022 History SDOH Social Connections Get Together 2 [facility] Start: 04-18-2020 Education 17 [facility] Start: 05-07-2020 End: 09-08-2022 Tobacco Comment Step father smoked in childhood. Spouse ex-smoker last 13 years. [facility] Start: 1980 Sex Assigned At Female [facility] Start: 12-18-2021 End: 10-11-2022 Exposure to SARS-CoV-2 (event) Not sure [facility] Start: 05-07-2020 End: 09-08-2022 Tobacco use and exposure Smokeless tobacco non-user [facility] Work Phone: Start: 11-21-2022 History SDOH Social Connections Get Together 98 [facility] Start: 11-21-2022 End: 04-25-2023 History of Social function [facility] Start: 11-21-2022 End: 04-25-2023 Social connection and isolation panel [facility] How often do you get together with friends or relatives? Patient refused [facility] Do you belong to any clubs or organizations such as mandaen groups, unions, fraternal or athletic groups, or school groups? Yes [facility] Are you now , , , , never or living with a partner? [facility] How often to you hav e a drink containing alcohol? Monthly or less [facility] How many standard dr inks containing alcohol do you have on a typical day? 1 or 2 [facility] How often do you hav e 6 or more drinks on 1 occasion? Never [facility] Do you feel stress - tense, restless, nervous, or anxious, or unable to sleep at night because your mind is troubled all the time - these days [OSQ] To some extent [facility] (I/We) worried wheth er (my/our) food would run out before (I/we) got money to buy more. Never true [facility] In the past 12 month s, was there a time when you were not able to pay the mortgage or rent on time? No [facility] Start: 12-14-2021 Gender identity Identifies as female gender (finding) [facility] Functional Status Date Assessment Result Facility NEGATED: Highlighted row Functional performance Functional status health issues are not documented [facility] Work Phone: Mental Status Date Assessment Result Facility NEGATED: Highlighted row Cognitive function [Interpretation] Cognitive status health issues are not documented [facility] Work Phone: Clinical Notes 12-06-2013 to 10-11-2023 To Matthews, DO - 10/11/2023 6:17 PM ESTPatient InstructionsFeli Benz, - 09/12/2023 3:02 PM EDTTelephone Encounter - Tania Robertson - 08/02/2023 10:30 AM EDTPatient Instructions Note Date & Type Note Facility 10-11-2023 Note HNO ID: [id number] Author: To Matthews DO Service: ? Author Type: Physician Type: Progress Notes Filed: 10/11/2023 6:24 PM Note Text: CC: Brice Gomez is a 43 year old female who presents to the office for follow up HPI: Seen in office on 10/11/2022 Had episode of gross hematuria about 1 month ago, she denies any pain when she had this episode. She was seen in UC and had normal urine culture. She was asymptomatic. She is concerned with this since although she has had kidney stones in the past, she didn't have any pain with this hematuria. No further bleeding has been noticed. Mood, feels her anxiety and panic symptoms are getting better. She has been seeing Psychiatry and psychology. She is taking Vibryd medication and tolerating rx well without SE. No SI or HI. Also taking her wellbutrin and clonazepam. Was able to mostly enjoy her cruise she took away with her except for 2 panic attacks while on the cruise At last OFFICE VISIT Dec 2021 Diarrhea., loose, non bloody, has been significant and chronic x months, has been seen recently by Gastroenterology Dr. Brock at [facility], has had testing of IBD panel with concerns for + AMCA as well as low IgE levels. Otherwise normal other labs. Admits that she is concerned due to her fam hx of esophageal cancer in her grandfather and mother diagnosed with Celiac disease as well with esophageal erosions. Unable to determine food trigger, doesn't eat a spicy diet and still with symptoms. Mood, stable, taking medications as prescribed Oldest son diagnosed with + HLA B27, she is requesting testing to try to figure out where he gets this from and she does get joint pains and muscle stiffness. Hasn't followed up with URO for her painless hematuria yet Currently Diarrhea, abdominal pain and symptoms. She has been managed by Gastroenterology Dr. Brock and had extensive testing. She is getting frustrated with lack of progress and follow up at times though. She was started recently on Imuran medication. She is status post right hemicolectomy. EGD and colonoscopy 10.23.20 Dr. Anaya. EGD noting gastritis without specimens collected. Colonoscopy found likely malignant tumor of proximal ascending colon; sigmoid diverticulosis; nonbleeding internal hemorrhoids. 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 Recommend right hemicolectomy Right hemicolectomy 12.28.[address] Mckinney with 2 day hospitalization. [facility] presentation 01.11.21 with abdominal pain diagnosed as postoperative and ruptured left ovarian cyst. Colectomy complication of hernia for which Dr. Karli Pascual performed large periumbilical and infraumbilical ventral hernia incisional hernia repair 06.28.21 with hospitalization until 06.30.21. Hernia repair complicated with formation of seroma causing abdominal pain and requiring placement of pigtail catheter 07.14.21 with negative cultures. Drain pulled 07.19.21. Colonoscopy 11.10.21 Dr. Pascual noting patent end-to-end ileo-colonic anastomosis. No specimens collected. She has been recommended to consider procedure for dysfunctional esophageal sphinctor. She wants to avoid pH manometry testing and Jonathan procedure if she is able. Mental health, overall much better, continues follow up with psychology and psychiatry, taking medications as prescribed. Need for mammogram PAST MEDICAL HISTORY Diagnosis Date Abnormal uterine bleeding 01/31/2013 Allergic rhinitis, cause unspecified Allergic rhinitis. Immunotherapy in past, [facility]. Depression Fibrosclerosis of breast H. 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 Neck pain, musculoskeletal FLORENTINO (obstructive sleep apnea) 08/2016 stopped using c-pap PMH - PAST MEDICAL HISTORY OF IUD PMH - PAST MEDICAL HISTORY OF EPISODES OF TACCHYCARDIA DURING Pneumonia due to COVID-19 virus Reactive airway disease Severe pre-eclampsia, condition or complication [facility] Stone, kidney x2 Vitamin D deficiency PAST SURGICAL HISTORY Procedure Laterality Date BREAST ASPIRATION fibroadenoma removal left breast COLONOSCOPY GEN ANES 10/23/2020 blas COVID19 03/18/2020 EGD 10/23/2020 EYE SURG ANT SGMT PROC UNLISTED Bilateral 01/05/2018 PRK (Photorefractive Keratectomy) HYSTEROSCOPY WBX WWO D AND C ANDOR POLYPECTOMY 05/2013 polyp IR BASKET STONE EXTRACTION 2009 LAPAROSCOPIC HEMICOLECTOMY Right LIG/TRNSXJ FLP TUBE ABDL/VAG APPR UNI/BI Tubal ligation PAST SURGICAL HISTORY OF x2 PAST SURGICAL HISTORY OF wisdom teeth PAST SURGICAL HISTORY OF 05/19/[address] Silveira S HERNIA PATCH,VENTRALEX,[id number] abdomen STEROTACTIC GUIDE BREAST BX 10/01/2012 u/s guidance of left breast VAGINAL HYSTERECTOMY right Ovary remains Current Outpatient Medications Medication Sig clonazePAM (KL (more content not included)... [facility] 10-11-2023 History of Presen t illness Narrative CC: Brice Gomez is a 43 year old female who presents to the office for follow up HPI: Seen in office on 10/11/2022 Had episode of gross hematuria about 1 month ago, she denies any pain when she had this episode. She was seen in UC and had normal urine culture. She was asymptomatic. She is concerned with this since although she has had kidney stones in the past, she didn't have any pain with this hematuria. No further bleeding has been noticed. Mood, feels her anxiety and panic symptoms are getting better. She has been seeing Psychiatry and psychology. She is taking Vibryd medication and tolerating rx well without SE. No SI or HI. Also taking her wellbutrin and clonazepam. Was able to mostly enjoy her cruise she took away with her except for 2 panic attacks while on the cruise At last OFFICE VISIT Dec 2021 Diarrhea., loose, non bloody, has been significant and chronic x months, has been seen recently by Gastroenterology Dr. Brock at [facility], has had testing of IBD panel with concerns for + AMCA as well as low IgE levels. Otherwise normal other labs. Admits that she is concerned due to her fam hx of esophageal cancer in her grandfather and mother diagnosed with Celiac disease as well with esophageal erosions. Unable to determine food trigger, doesn't eat a spicy diet and still with symptoms. Mood, stable, taking medications as prescribed Oldest son diagnosed with + HLA B27, she is requesting testing to try to figure out where he gets this from and she does get joint pains and muscle stiffness. Hasn't followed up with URO for her painless hematuria yet Currently Diarrhea, abdominal pain and symptoms. She has been managed by Gastroenterology Dr. Brock and had extensive testing. She is getting frustrated with lack of progress and follow up at times though. She was started recently on Imuran medication. She is status post right hemicolectomy. EGD and colonoscopy 10.23.20 Dr. Anaya. EGD noting gastritis without specimens collected. Colonoscopy found likely malignant tumor of proximal ascending colon; sigmoid diverticulosis; nonbleeding internal hemorrhoids. 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 Recommend right hemicolectomy Right hemicolectomy 12.28.[address] Mckinney with 2 day hospitalization. [facility] presentation 01.11.21 with abdominal pain diagnosed as postoperative and ruptured left ovarian cyst. Colectomy complication of hernia for which Dr. Karli Pascual performed large periumbilical and infraumbilical ventral hernia incisional hernia repair 06.28.21 with hospitalization until 06.30.21. Hernia repair complicated with formation of seroma causing abdominal pain and requiring placement of pigtail catheter 07.14.21 with negative cultures. Drain pulled 07.19.21. Colonoscopy 11.10.21 Dr. Pascual noting patent end-to-end ileo-colonic anastomosis. No specimens collected. She has been recommended to consider procedure for dysfunctional esophageal sphinctor. She wants to avoid pH manometry testing and Jonathan procedure if she is able. Mental health, overall much better, continues follow up with psychology and psychiatry, taking medications as prescribed. Need for mammogram PAST MEDICAL HISTORY Diagnosis Date Abnormal uterine bleeding 01/31/2013 Allergic rhinitis, cause unspecified Allergic rhinitis. Immunotherapy in past, [facility]. Depression Fibrosclerosis of breast H. 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 Neck pain, musculoskeletal FLORENTINO (obstructive sleep apnea) 08/2016 stopped using c-pap PMH - PAST MEDICAL HISTORY OF IUD PMH - PAST MEDICAL HISTORY OF EPISODES OF TACCHYCARDIA DURING Pneumonia due to COVID-19 virus Reactive airway disease Severe pre-eclampsia, condition or complication [facility] Stone, kidney x2 Vitamin D deficiency PAST SURGICAL HISTORY Procedure Laterality Date BREAST ASPIRATION fibroadenoma removal left breast COLONOSCOPY GEN ANES 10/23/2020 blas COVID19 03/18/2020 EGD 10/23/2020 EYE SURG ANT SGMT PROC UNLISTED Bilateral 01/05/2018 PRK (Photorefractive Keratectomy) HYSTEROSCOPY WBX WWO D AND C ANDOR POLYPECTOMY 05/2013 polyp IR BASKET STONE EXTRACTION 2009 LAPAROSCOPIC HEMICOLECTOMY Right LIG/TRNSXJ FLP TUBE ABDL/VAG APPR UNI/BI Tubal ligation PAST SURGICAL HISTORY OF x2 PAST SURGICAL HISTORY OF wisdom teeth PAST SURGICAL HISTORY OF 05/19/2016 D&C [address] ablation Dr. Silveira S HERNIA PATCH,VENTRALEX,[id number] abdomen STEROTACTIC GUIDE BREAST BX 10/01/2012 u/s guidance of left breast VAGINAL HYSTERECTOMY right Ovary remains Current Outpatient Medications Medication Sig clonazePAM (KLONOPIN) 0.5 mg tablet Take 1 tablet by mouth at bedtime as needed for up to 30 days. vilazodone (VIIBRYD) 40 mg tablet Take 1 tablet by mouth once daily. buPROPion XL (WELLBUTRIN XL) 300 mg 24 hr tablet Take 1 tablet by mouth once daily. esomeprazole (NEXIUM) 40 mg capsule Take 1 capsule by mouth twice daily before meals. 1/2 hr before meal. Cholecalciferol, Vitamin D3, 25 mcg (1,000 unit) cap Take 25 mcg by mouth once daily. mometasone (NASONEX) 50 mcg/actuation nasal spray Use 2 Sprays in the nose twice daily. EPINEPHrine (EPIPEN) 0.3 mg/0.3 mL auto-injector Inject 0.3 mL subcutaneously as needed. Then seek medical attention immediately. MULTI-VITAMIN ORAL Take by mouth. albuterol HFA (PROAIR HFA) 90 mcg/actuation inhaler Inhale 2 Puffs as instructed every 4 hours as needed. cetirizine (ZYRTEC) 10 mg tablet Take 10 mg by mouth once daily. azaTHIOprine (IMURAN) 100 mg tablet Take 100 mg by mouth once daily. sulfamethoxazole-trimethoprim (BACTRIM DS) 800-160 mg per tablet Take 1 tablet by mouth two times a day for 10 days. Fluticasone Furoate (FLONASE SENSIMIST) 27.5 mcg/actuation nasal spray Use 2 Sprays in each nostril once daily. No current facility-administered medications for this visit. ALLERGIES Allergen Reactions Clindamycin Unknown Bee Sting Hives Facial edema Biaxin [Clarithromy* Rash Patient developed a pruritic rash 7 days into course of biaxin and flagyl for H pylori infection. No mucous membrane involvement, exfoliation, fevers or joint pain/swelling. Celexa [Citalopram] GI Upset Entex [Phenylephrin* Intolerance Tachycardia Flagyl [Metronidazo* Rash Patient developed a pruritic rash 7 days into course of biaxin and flagyl for H pylori infection. No mucous membrane involvement, exfoliation, fevers or joint pain/swelling. Keflex [Cephalexin] Rash Minocycline Hives Penicillins Rash, Itching Edmund Darrick type reaction. Social History Tobacco Use Smoking status: Never Smokeless tobacco: Never Tobacco comments: Step father smoked in childhood. Spouse ex-smoker last 13 years. Vaping Use Vaping Use: Never used Substance Use Topics Alcohol use: Yes Comment: Rarely Drug use: No ROS: See HPI PE: BP 110/60 Pulse 80 Temp (Src) 98.1 (Left Tympanic) Resp 12 Wt 149 lb (67.6kg) LMP 08/24/2020 Gen: A&OX3, NAD, non-toxic appearing HEENT: PERRLA, EOMs intact b/l, nares without drainage, pharynx without erythema, exudate, lesions, or drainage. Uvula midline. Neck: No LAD, no thyromegaly, no meningismus. CV: RRR, no murmur Lungs: CTA b/l, no wheezing Skin: No rashes, lesions, or wounds on exposed skin. Abd: soft, mild generalized TTP No edema, normal pulses ASSESSMENT/PLAN: 1. Diarrhea, unspecified type - ICD9: 787.91, ICD10: R19.7 (primary diagnosis) F/u with Dr. Brock/Gastroenterology for next follow up and further testing as scheduled. - AZATHIOPRINE 100 MG TABLET 2. Encounter for screening mammogram for malignant neoplasm of breast - ICD9: V76.12, ICD10: Z12.31 - Set up for mammogram, yearly mammogram recommended - Encouraged monthly BSE - Follow up for annual exam in one year. - JULIENNE SCREENING W ANDREAS 3. GERD without esophagitis - ICD9: 530.81, ICD10: K21.9 - Discussed lifestyle modifications including losing weight, limiting caffeine, no meals three hours before sleep, and head of bed elevation 4. KATHIE (generalized anxiety disorder) - ICD9: 300.02, ICD10: F41.1 F/u with Psychiatrist 5. Decreased hearing of both ears - ICD9: 389.9, ICD10: H91.93 F/u with ENT and Audiology 6. Fatigue, unspecified type - ICD9: 780.79, ICD10: R53.83 Stable, chronic. 7. Depression, unspecified depression type - ICD9: 311, ICD10: F32.A F/u with Psychiatrist To Matthews DO Return if no improvement. Follow up with To Matthews DO. To ER if develops chest pain, shortness of breath Discussed risks, benefits, alternatives, and potential side effects of medications. Patient/Guardian expressed understanding and agreed with the plan. See patient instructions. To Matthews DO [address] [place] [address] documented in this encounter [facility] 10-03-2023 Instructions To Matthews DO - 10/03/2023 4:16 PM EST [phone] documented in this encounter [facility] 09-12-2023 Note HNO ID: [id number] Author: Feli Benz DO Service: ? Author Type: Physician Type: Progress Notes Filed: 09/12/2023 3:15 PM Note Text: FOLLOW UP - PSYCHIATRIC PROGRESS NOTE Visit Type:Virtual Visit utilizing two-way audio and video for at least a portion of the visit. Consent for virtual visit obtained verbally. Confidentiality limitations with virtual visits reviewed with the patient and guardian, if present, who have accepted the risk verbally prior to proceeding with encounter. I have communicated my name and active licensure. The patient's identity and physical location were verified at the time of this visit. Either the patient or their legal customer support representative has been informed of the risks and benefits of -- and alternatives to -- treatment through a remote evaluation and consents to proceed with the evaluation remotely. Reason for Visit: Outpatient follow-up and safety monitoring of previously prescribed psychiatric medication, psychotherapy or other treatment CC: depression follow HPI: Her half sister was hit by a drunk pile driver on AUG 26 and lost her unborn baby at 5 months. She is her main support with her father. She delivered the baby on the vent and had fractures. She didn't feel well without the Vyvanse as she forgot it for a few days. She forgot to take it a couple of days. Since she started it back up she was better. She had to increase her Chrones medication back.She found out she was postmenopausal. So likely having a lot of anxiety due to perimenopause.She lost 10 lbs but having still some GI issues. She wants to get off the reflux medication . She is going to have a scope next week of lower GI . Not needing klonopin only rarely at night prn. 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 Interval Progress: much improved PATIENT DATA: Generalized Anxiety Disorder Scale (KATHIE-7) KATHIE - 7 SCORES 06/12/2023 08/20/2023 09/11/2023 KATHIE-7 Score 4 8 4 (0-4) minimal anxiety, (5-9) mild anxiety, (10-14) moderate anxiety, (15-21) severe anxiety Patient Health Questionnaire (PHQ-9) PHQ-9 06/12/2023 08/20/2023 09/11/2023 Score 0 0 0 (0-4) minimal depression, (5-9) mild depression, (10-14) moderate depression, (15-19) moderately severe depression, (20-27) severe depression PROMIS Global Health PROMIS Global Health - (T-Scores - the mean of general population = 50. Five points is a clinically meaningful difference.) 01/09/2023 04/25/2023 08/20/2023 Physical T-Score 57.7 42.3 47.7 Mental T-Score 45.8 41.1 50.8 PAST MEDICAL HISTORY Diagnosis Date Abnormal uterine bleeding 01/31/2013 Allergic rhinitis, cause unspecified Allergic rhinitis. Immunotherapy in past, [facility]. Depression Fibrosclerosis of breast H. 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 Neck pain, musculoskeletal FLORENTINO (obstructive sleep apnea) 08/2016 stopped using c-pap PMH - PAST MEDICAL HISTORY OF IUD PMH - PAST MEDICAL HISTORY OF EPISODES OF TACCHYCARDIA DURING Pneumonia due to COVID-19 virus Reactive airway disease Severe pre-eclampsia, condition or complication [facility] Stone, kidney x2 Vitamin D deficiency PAST SURGICAL HISTORY Procedure Laterality Date BREAST ASPIRATION fibroadenoma removal left breast COLONOSCOPY GEN ANES 10/23/2020 blas COVID19 03/18/2020 EGD 10/23/2020 EYE SURG ANT SGMT PROC UNLISTED Bilateral 01/05/2018 PRK (Photorefractive Keratectomy) HYSTEROSCOPY WBX WWO D AND C ANDOR POLYPECTOMY 05/2013 polyp IR BASKET STONE EXTRACTION 2009 LAPAROSCOPIC HEMICOLECTOMY Right LIG/TRNSXJ FLP TUBE ABDL/VAG APPR UNI/BI Tubal ligation PAST SURGICAL HISTORY OF x2 PAST SURGICAL HISTORY OF wisdom teeth PAST SURGICAL HISTORY OF 05/19/[address] Silveira S HERNIA PATCH,VENTRALEX,[id number] abdomen STEROTACTIC GUIDE BREAST BX 10/01/2012 u/s guidance of left breast VAGINAL HYSTERECTOMY right Ovary remains Current Outpatient Medications Medication Sig Dispense Refill vilazodone (VIIBRYD) 40 mg tablet Take 1 tablet by mouth once daily. 90 tablet 0 buPROPion XL (WELLBUTRIN XL) 300 mg 24 hr tablet Take 1 tablet by mouth once daily. 90 tablet 0 amitriptyline (ELAVIL) 50 mg tablet take one half to one tablet po qhs 30 tablet 0 clonazePAM (KLONOPIN) 0.5 mg tablet Take 1 tablet by mouth twice daily as needed for up to 60 days. 60 tablet 1 esomeprazole (NEXIUM) 40 mg capsule Take 1 capsule by mouth twice daily before meals. 1/2 hr before meal. 180 capsule 5 Cholecalciferol, Vitamin D3, 25 mcg (1,000 unit) cap Take 25 mcg by mouth once daily. mometasone (NASONEX) 50 mcg/actuation nasal spray Use 2 Sprays in the nose twice daily. Fluticasone Furoate (FLONASE S (more content not included)... [facility] 09-12-2023 History of Presen t illness Narrative FOLLOW UP - PSYCHIATRIC PROGRESS NOTE Visit Type:Virtual Visit utilizing two-way audio and video for at least a portion of the visit. Consent for virtual visit obtained verbally. Confidentiality limitations with virtual visits reviewed with the patient and guardian, if present, who have accepted the risk verbally prior to proceeding with encounter. I have communicated my name and active licensure. The patient's identity and physical location were verified at the time of this visit. Either the patient or their legal customer support representative has been informed of the risks and benefits of -- and alternatives to -- treatment through a remote evaluation and consents to proceed with the evaluation remotely. Reason for Visit: Outpatient follow-up and safety monitoring of previously prescribed psychiatric medication, psychotherapy or other treatment CC: depression follow HPI: Her half sister was hit by a drunk pile driver on AUG 26 and lost her unborn baby at 5 months. She is her main support with her father. She delivered the baby on the vent and had fractures. She didn't feel well without the Vyvanse as she forgot it for a few days. She forgot to take it a couple of days. Since she started it back up she was better. She had to increase her Chrones medication back.She found out she was postmenopausal. So likely having a lot of anxiety due to perimenopause.She lost 10 lbs but having still some GI issues. She wants to get off the reflux medication . She is going to have a scope next week of lower GI . Not needing klonopin only rarely at night prn. 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 Interval Progress: much improved PATIENT DATA: Generalized Anxiety Disorder Scale (KATHIE-7) KATHIE - 7 SCORES 06/12/2023 08/20/2023 09/11/2023 KATHIE-7 Score 4 8 4 (0-4) minimal anxiety, (5-9) mild anxiety, (10-14) moderate anxiety, (15-21) severe anxiety Patient Health Questionnaire (PHQ-9) PHQ-9 06/12/2023 08/20/2023 09/11/2023 Score 0 0 0 (0-4) minimal depression, (5-9) mild depression, (10-14) moderate depression, (15-19) moderately severe depression, (20-27) severe depression PROMIS Global Health PROMIS Global Health - (T-Scores - the mean of general population = 50. Five points is a clinically meaningful difference.) 01/09/2023 04/25/2023 08/20/2023 Physical T-Score 57.7 42.3 47.7 Mental T-Score 45.8 41.1 50.8 PAST MEDICAL HISTORY Diagnosis Date Abnormal uterine bleeding 01/31/2013 Allergic rhinitis, cause unspecified Allergic rhinitis. Immunotherapy in past, [facility]. Depression Fibrosclerosis of breast H. 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 Neck pain, musculoskeletal FLORENTINO (obstructive sleep apnea) 08/2016 stopped using c-pap PMH - PAST MEDICAL HISTORY OF IUD PMH - PAST MEDICAL HISTORY OF EPISODES OF TACCHYCARDIA DURING Pneumonia due to COVID-19 virus Reactive airway disease Severe pre-eclampsia, condition or complication [facility] [place], kidney x2 Vitamin D deficiency PAST SURGICAL HISTORY Procedure Laterality Date BREAST ASPIRATION fibroadenoma removal left breast COLONOSCOPY GEN ANES 10/23/2020 [facility] COVID19 03/18/2020 EGD 10/23/2020 EYE SURG ANT SGMT PROC UNLISTED Bilateral 01/05/2018 PRK (Photorefractive Keratectomy) HYSTEROSCOPY WBX WWO D AND C ANDOR POLYPECTOMY 05/2013 polyp IR BASKET STONE EXTRACTION 2009 LAPAROSCOPIC HEMICOLECTOMY Right LIG/TRNSXJ FLP TUBE ABDL/VAG APPR UNI/BI Tubal ligation PAST SURGICAL HISTORY OF x2 PAST SURGICAL HISTORY OF wisdom teeth PAST SURGICAL HISTORY OF 05/19/2016 D&C and ablation Dr. Silveira S HERNIA PATCH,VENTRALEX,[id number] abdomen STEROTACTIC GUIDE BREAST BX 10/01/2012 u/s guidance of left breast VAGINAL HYSTERECTOMY right Ovary remains Current Outpatient Medications Medication Sig Dispense Refill vilazodone (VIIBRYD) 40 mg tablet Take 1 tablet by mouth once daily. 90 tablet 0 buPROPion XL (WELLBUTRIN XL) 300 mg 24 hr tablet Take 1 tablet by mouth once daily. 90 tablet 0 amitriptyline (ELAVIL) 50 mg tablet take one half to one tablet po qhs 30 tablet 0 clonazePAM (KLONOPIN) 0.5 mg tablet Take 1 tablet by mouth twice daily as needed for up to 60 days. 60 tablet 1 esomeprazole (NEXIUM) 40 mg capsule Take 1 capsule by mouth twice daily before meals. 1/2 hr before meal. 180 capsule 5 Cholecalciferol, Vitamin D3, 25 mcg (1,000 unit) cap Take 25 mcg by mouth once daily. mometasone (NASONEX) 50 mcg/actuation nasal spray Use 2 Sprays in the nose twice daily. Fluticasone Furoate (FLONASE SENSIMIST) 27.5 mcg/actuation nasal spray Use 2 Sprays in each nostril once daily. EPINEPHrine (EPIPEN) 0.3 mg/0.3 mL auto-injector Inject 0.3 mL subcutaneously as needed. Then seek medical attention immediately. 2 Each 1 MULTI-VITAMIN ORAL Take by mouth. albuterol HFA (PROAIR HFA) 90 mcg/actuation inhaler Inhale 2 Puffs as instructed every 4 hours as needed. 1 Inhaler 3 cetirizine (ZYRTEC) 10 mg tablet Take 10 mg by mouth once daily. No current facility-administered medications for this visit. ROS: GENERAL: Negative for malaise, significant weight loss and fever. HEENT: No changes in hearing or vision, no nose bleeds or other nasal problems. RESPIRATORY: Negative for cough, wheezing and shortness of breath. CARDIOVASCULAR: Negative for chest pain, leg swelling and palpitations. GI: Negative for abdominal discomfort, blood in stools or black stools. : Negative for dysuria, frequency and incontinence. MUSCULOSKELETAL: Negative for joint pain or swelling, back pain, and muscle pain. SKIN: Negative for lesions, rash, and itching. HEMATOLOGY/LYMPHOLOGY Negative for prolonged bleeding, bruising easily, and swollen nodes. ENDOCRINE: Negative for cold or heat intolerance, polyuria, polydipsia and goiter. NEURO: Negative for headaches, syncope, seizures and paralysis. PFSH: none VITAL SIGNS: There were no vitals filed for this visit. MENTAL STATUS EXAM: CONSTITUTIONAL: Well groomed ORIENTATION: Person, Place, Time and Situation MEMORY: Recent intact CONCENTRATION: Normal MOOD: euthymic AFFECT: Full and appropriate to topic SPEECH : Clear & distinct LANGUAGE : Normal ASSOCIATIONS: Intact THOUGHT PROCESS : Logical, Coherent, and Rational PROGRESSION : There was no evidence of disturbance in thought perception or progression. FUND OF KNOWLEDGE : Appropriate and Adequate SUICIDE: None HOMICIDE: None DATA REVIEWED: None : DIAGNOSIS: PMDD, KATHIE, MDD recurrent TREATMENT PLAN: viibryd 40 mg po daily, wellbutrin XL 300 Returned to therapy PRN figueroa Follow Up: 3-4 months I spent a total of 30 minutes on the date of the service which included preparing to see the patient, [id number] patient care, and completing clinical documentation. ADD ON PSYCHOTHERAPY CODE : No SIGNATURE: Feli Benz DO PATIENT NAME: Brice Gomez DATE: September 12, 2023 TIME: 3:02 PM documented in this encounter [facility] 08-02-2023 Miscellaneous Notes The following medication(s) is being requested: LAST APPT - 06/12/23 NEXT APPT - 08/22/23 Requested Prescriptions Pending Prescriptions Disp Refills vilazodone (VIIBRYD) 40 mg tablet 90 tablet 0 Sig: Take 1 tablet by mouth once daily. buPROPion XL (WELLBUTRIN XL) 300 mg 24 hr tablet 90 tablet 0 Sig: Take 1 tablet by mouth once daily. Please process accordingly Tania Robertson documented in this encounter [facility] 06-22-2023 Miscellaneous Notes On 04/25/23 provider prescribed a 90 day supply. The following medication(s) is being requested: LAST APPT - 06/12/23 NEXT APPT - 08/22/23 Requested Prescriptions Pending Prescriptions Disp Refills buPROPion XL (WELLBUTRIN XL) 300 mg 24 hr tablet 90 tablet 0 Sig: Take 1 tablet by mouth once daily. Please process accordingly Tania Robertson documented in this encounter [facility] 06-12-2023 Note HNO ID: [id number] Author: Feli Benz, DO Service: ? Author Type: Physician Type: Progress Notes Filed: 06/12/2023 11:46 AM Note Text: FOLLOW UP - PSYCHIATRIC PROGRESS NOTE Visit Type:Virtual Visit utilizing two-way audio and video for at least a portion of the visit. Consent for virtual visit obtained verbally. Confidentiality limitations with virtual visits reviewed with the patient and guardian, if present, who have accepted the risk verbally prior to proceeding with encounter. I have communicated my name and active licensure. The patient's identity and physical location were verified at the time of this visit. Either the patient or their legal customer support representative has been informed of the risks and benefits of -- and alternatives to -- treatment through a remote evaluation and consents to proceed with the evaluation remotely. Reason for Visit: Outpatient follow-up and safety monitoring of previously prescribed psychiatric medication, psychotherapy or other treatment CC: follow up Feeling less anxious HPI: She is going to [place] and letting her son drive a bit as he is a new pile driver. She feels less anxious and doing well in terms of physical sx. She denies any side effects. 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 Risks and benefits of the medication, including any black box warnings, were discussed with the patient. Interval Progress: improved PATIENT DATA: Generalized Anxiety Disorder Scale (KATHIE-7) KATHIE - 7 SCORES 01/19/2023 04/25/2023 06/12/2023 KATHIE-7 Score 4 11 4 (0-4) minimal anxiety, (5-9) mild anxiety, (10-14) moderate anxiety, (15-21) severe anxiety Patient Health Questionnaire (PHQ-9) PHQ-9 01/19/2023 04/25/2023 06/12/2023 Score 1 7 0 (0-4) minimal depression, (5-9) mild depression, (10-14) moderate depression, (15-19) moderately severe depression, (20-27) severe depression PROMIS Global Health PROMIS Global Health - (T-Scores - the mean of general population = 50. Five points is a clinically meaningful difference.) 10/04/2022 01/09/2023 04/25/2023 Physical T-Score - 57.7 42.3 Mental T-Score 48.3 45.8 41.1 PAST MEDICAL HISTORY Diagnosis Date Abnormal uterine bleeding 01/31/2013 Allergic rhinitis, cause unspecified Allergic rhinitis. Immunotherapy in past, [facility]. Depression Fibrosclerosis of breast H. 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 Neck pain, musculoskeletal FLORENTINO (obstructive sleep apnea) 08/2016 stopped using c-pap PMH - PAST MEDICAL HISTORY OF IUD PMH - PAST MEDICAL HISTORY OF EPISODES OF TACCHYCARDIA DURING Pneumonia due to COVID-19 virus Reactive airway disease Severe pre-eclampsia, condition or complication [facility] Stone, kidney x2 Vitamin D deficiency PAST SURGICAL HISTORY Procedure Laterality Date BREAST ASPIRATION fibroadenoma removal left breast COLONOSCOPY GEN ANES 10/23/2020 [facility] COVID19 03/18/2020 EGD 10/23/2020 EYE SURG ANT SGMT PROC UNLISTED Bilateral 01/05/2018 PRK (Photorefractive Keratectomy) HYSTEROSCOPY WBX WWO D AND C ANDOR POLYPECTOMY 05/2013 polyp IR BASKET STONE EXTRACTION 2009 LAPAROSCOPIC HEMICOLECTOMY Right LIG/TRNSXJ FLP TUBE ABDL/VAG APPR UNI/BI Tubal ligation PAST SURGICAL HISTORY OF x2 PAST SURGICAL HISTORY OF wisdom teeth PAST SURGICAL HISTORY OF 05/19/[address] Silveira S HERNIA PATCH,VENTRALEX,[id number] abdomen STEROTACTIC GUIDE BREAST BX 10/01/2012 u/s guidance of left breast VAGINAL HYSTERECTOMY right Ovary remains Current Outpatient Medications Medication Sig Dispense Refill vilazodone (VIIBRYD) 40 mg tablet Take 1 tablet by mouth once daily. 90 tablet 0 amitriptyline (ELAVIL) 50 mg tablet take one half to one tablet po qhs 30 tablet 0 buPROPion XL (WELLBUTRIN XL) 300 mg 24 hr tablet Take 1 tablet by mouth once daily. 90 tablet 0 clonazePAM (KLONOPIN) 0.5 mg tablet Take 1 tablet by mouth twice daily as needed for up to 60 days. 60 tablet 1 esomeprazole (NEXIUM) 40 mg capsule Take 1 capsule by mouth twice daily before meals. 1/2 hr before meal. 180 capsule 5 Cholecalciferol, Vitamin D3, 25 mcg (1,000 unit) cap Take 25 mcg by mouth once daily. mometasone (NASONEX) 50 mcg/actuation nasal spray Use 2 Sprays in the nose twice daily. Fluticasone Furoate (FLONASE SENSIMIST) 27.5 mcg/actuation nasal spray Use 2 Sprays in each nostril once daily. EPINEPHrine (EPIPEN) 0.3 mg/0.3 mL auto-injector Inject 0.3 mL subcutaneously as needed. Then seek medical attention immediately. 2 Each 1 MULTI-VITAMIN ORAL Take by mouth. albuterol HFA (PROAIR HFA) 90 mcg/actuation inhaler Inhale 2 Puffs as instructed every 4 hours as needed. 1 Inhaler 3 cetirizine (ZYRTEC) 10 mg tablet Take 10 mg by mouth once daily. No current facility-administered medications for this visit. ROS: GENE (more content not included)... [facility] 04-25-2023 Note HNO ID: [id number] Author: Feli Benz, DO Service: ? Author Type: Physician Type: Progress Notes Filed: 04/25/2023 11:31 AM Note Text: FOLLOW UP - PSYCHIATRIC PROGRESS NOTE Visit Type:Virtual Visit utilizing two-way audio and video for at least a portion of the visit. Consent for virtual visit obtained verbally. Confidentiality limitations with virtual visits reviewed with the patient and guardian, if present, who have accepted the risk verbally prior to proceeding with encounter. I have communicated my name and active licensure. The patient's identity and physical location were verified at the time of this visit. Either the patient or their legal customer support representative has been informed of the risks and benefits of -- and alternatives to -- treatment through a remote evaluation and consents to proceed with the evaluation remotely. Reason for Visit: Outpatient follow-up and safety monitoring of previously prescribed psychiatric medication, psychotherapy or other treatment CC: I've been very anxious . 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 Feels she has always had it but dx with IBS. New medication is Azothioprine. She has to wear hearing aids now which makes her self conscious. It is more her left and right side. Her grandmother's sister is completely deaf but she noticed ringing in ears . She had a lot of exposure to loud noise. Has always has been sensitive to noise and worn ear plugs. She has an kaitlyn to turn down it down. Risks and benefits of the medication, including any black box warnings, were discussed with the patient. Interval Progress: some worse PATIENT DATA: Generalized Anxiety Disorder Scale (KATHIE-7) KATHIE - 7 SCORES 11/23/2022 01/19/2023 04/25/2023 KATHIE-7 Score 6 4 11 (0-4) minimal anxiety, (5-9) mild anxiety, (10-14) moderate anxiety, (15-21) severe anxiety Patient Health Questionnaire (PHQ-9) PHQ-9 11/23/2022 01/19/2023 04/25/2023 Score 4 1 7 (0-4) minimal depression, (5-9) mild depression, (10-14) moderate depression, (15-19) moderately severe depression, (20-27) severe depression PROMIS Global Health PROMIS Global Health - (T-Scores - the mean of general population = 50. Five points is a clinically meaningful difference.) 10/04/2022 01/09/2023 04/25/2023 Physical T-Score - 57.7 42.3 Mental T-Score 48.3 45.8 41.1 PAST MEDICAL HISTORY Diagnosis Date Abnormal uterine bleeding 01/31/2013 Allergic rhinitis, cause unspecified Allergic rhinitis. Immunotherapy in past, [facility]. Depression Fibrosclerosis of breast H. 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 Neck pain, musculoskeletal FLORENTINO (obstructive sleep apnea) 08/2016 stopped using c-pap PMH - PAST MEDICAL HISTORY OF IUD PMH - PAST MEDICAL HISTORY OF EPISODES OF TACCHYCARDIA DURING Pneumonia due to COVID-19 virus Reactive airway disease Severe pre-eclampsia, condition or complication [facility] Stone, kidney x2 Vitamin D deficiency PAST SURGICAL HISTORY Procedure Laterality Date BREAST ASPIRATION fibroadenoma removal left breast COLONOSCOPY GEN ANES 10/23/2020 [facility] COVID19 03/18/2020 EGD 10/23/2020 EYE SURG ANT SGMT PROC UNLISTED Bilateral 01/05/2018 PRK (Photorefractive Keratectomy) HYSTEROSCOPY WBX WWO D AND C ANDOR POLYPECTOMY 05/2013 polyp IR BASKET STONE EXTRACTION 2009 LAPAROSCOPIC HEMICOLECTOMY Right LIG/TRNSXJ FLP TUBE ABDL/VAG APPR UNI/BI Tubal ligation PAST SURGICAL HISTORY OF x2 PAST SURGICAL HISTORY OF wisdom teeth PAST SURGICAL HISTORY OF 05/19/[address] Silveira S HERNIA PATCH,VENTRALEX,[id number] abdomen STEROTACTIC GUIDE BREAST BX 10/01/2012 u/s guidance of left breast VAGINAL HYSTERECTOMY right Ovary remains Current Outpatient Medications Medication Sig Dispense Refill buPROPion XL (WELLBUTRIN XL) 300 mg 24 hr tablet Take 1 tablet by mouth once daily. 90 tablet 0 vilazodone (VIIBRYD) 20 mg tablet Take 1 tablet by mouth once daily. 90 tablet 0 vilazodone (VIIBRYD) 10 mg tablet Take 1 tablet by mouth once daily. 90 tablet 0 clonazePAM (KLONOPIN) 0.5 mg tablet Take 1 tablet by mouth twice daily as needed for up to 60 days. 60 tablet 1 esomeprazole (NEXIUM) 40 mg capsule Take 1 capsule by mouth twice daily before meals. 1/2 hr before meal. 180 capsule 5 Cholecalciferol, Vitamin D3, 25 mcg (1,000 unit) cap Take 25 mcg by mouth once daily. mometasone (NASONEX) 50 mcg/actuation nasal spray Use 2 Sprays in the nose twice daily. Fluticasone Furoate (FLONASE SENSIMIST) 27.5 mcg/actuation nasal spray Use 2 Sprays in each nostril once daily. EPINEPHrine (EPIPEN) 0.3 mg/0.3 mL auto-injector Inject 0.3 mL subcutaneously as needed. Then seek medical attention immediately. 2 Each 1 MULTI-VITAMIN ORAL Take by mouth. albuterol HF (more content not included)... [facility] 04-25-[facility]23 History of Presen t illness Narrative FOLLOW UP - PSYCHIATRIC PROGRESS NOTE Visit Type:Virtual Visit utilizing two-way audio and video for at least a portion of the visit. Consent for virtual visit obtained verbally. Confidentiality limitations with virtual visits reviewed with the patient and guardian, if present, who have accepted the risk verbally prior to proceeding with encounter. I have communicated my name and active licensure. The patient's identity and physical location were verified at the time of this visit. Either the patient or their legal customer support representative has been informed of the risks and benefits of -- and alternatives to -- treatment through a remote evaluation and consents to proceed with the evaluation remotely. Reason for Visit: Outpatient follow-up and safety monitoring of previously prescribed psychiatric medication, psychotherapy or other treatment CC: I've been very anxious . 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 Feels she has always had it but dx with IBS. New medication is Azothioprine. She has to wear hearing aids now which makes her self conscious. It is more her left and right side. Her grandmother's sister is completely deaf but she noticed ringing in ears . She had a lot of exposure to loud noise. Has always has been sensitive to noise and worn ear plugs. She has an kaitlyn to turn down it down. Risks and benefits of the medication, including any black box warnings, were discussed with the patient. Interval Progress: some worse PATIENT DATA: Generalized Anxiety Disorder Scale (KATHIE-7) KATHIE - 7 SCORES 11/23/2022 01/19/2023 04/25/2023 KATHIE-7 Score 6 4 11 (0-4) minimal anxiety, (5-9) mild anxiety, (10-14) moderate anxiety, (15-21) severe anxiety Patient Health Questionnaire (PHQ-9) PHQ-9 11/23/2022 01/19/2023 04/25/2023 Score 4 1 7 (0-4) minimal depression, (5-9) mild depression, (10-14) moderate depression, (15-19) moderately severe depression, (20-27) severe depression PROMIS Global Health PROMIS Global Health - (T-Scores - the mean of general population = 50. Five points is a clinically meaningful difference.) 10/04/2022 01/09/2023 04/25/2023 Physical T-Score - 57.7 42.3 Mental T-Score 48.3 45.8 41.1 PAST MEDICAL HISTORY Diagnosis Date Abnormal uterine bleeding 01/31/2013 Allergic rhinitis, cause unspecified Allergic rhinitis. Immunotherapy in past, [facility]. Depression Fibrosclerosis of breast H. 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 Neck pain, musculoskeletal FLORENTINO (obstructive sleep apnea) 08/2016 stopped using c-pap PMH - PAST MEDICAL HISTORY OF IUD PMH - PAST MEDICAL HISTORY OF EPISODES OF TACCHYCARDIA DURING Pneumonia due to COVID-19 virus Reactive airway disease Severe pre-eclampsia, condition or complication [facility] Stone, kidney x2 Vitamin D deficiency PAST SURGICAL HISTORY Procedure Laterality Date BREAST ASPIRATION fibroadenoma removal left breast COLONOSCOPY GEN ANES 10/23/2020 [facility] COVID19 03/18/2020 EGD 10/23/2020 EYE SURG ANT SGMT PROC UNLISTED Bilateral 01/05/2018 PRK (Photorefractive Keratectomy) HYSTEROSCOPY WBX WWO D AND C ANDOR POLYPECTOMY 05/2013 polyp IR BASKET STONE EXTRACTION 2009 LAPAROSCOPIC HEMICOLECTOMY Right LIG/TRNSXJ FLP TUBE ABDL/VAG APPR UNI/BI Tubal ligation PAST SURGICAL HISTORY OF x2 PAST SURGICAL HISTORY OF wisdom teeth PAST SURGICAL HISTORY OF 05/19/2016 D&C [address] ablation Dr. Silveira S HERNIA PATCH,VENTRALEX,[id number] abdomen STEROTACTIC GUIDE BREAST BX 10/01/2012 u/s guidance of left breast VAGINAL HYSTERECTOMY right Ovary remains Current Outpatient Medications Medication Sig Dispense Refill buPROPion XL (WELLBUTRIN XL) 300 mg 24 hr tablet Take 1 tablet by mouth once daily. 90 tablet 0 vilazodone (VIIBRYD) 20 mg tablet Take 1 tablet by mouth once daily. 90 tablet 0 vilazodone (VIIBRYD) 10 mg tablet Take 1 tablet by mouth once daily. 90 tablet 0 clonazePAM (KLONOPIN) 0.5 mg tablet Take 1 tablet by mouth twice daily as needed for up to 60 days. 60 tablet 1 esomeprazole (NEXIUM) 40 mg capsule Take 1 capsule by mouth twice daily before meals. 1/2 hr before meal. 180 capsule 5 Cholecalciferol, Vitamin D3, 25 mcg (1,000 unit) cap Take 25 mcg by mouth once daily. mometasone (NASONEX) 50 mcg/actuation nasal spray Use 2 Sprays in the nose twice daily. Fluticasone Furoate (FLONASE SENSIMIST) 27.5 mcg/actuation nasal spray Use 2 Sprays in each nostril once daily. EPINEPHrine (EPIPEN) 0.3 mg/0.3 mL auto-injector Inject 0.3 mL subcutaneously as needed. Then seek medical attention immediately. 2 Each 1 MULTI-VITAMIN ORAL Take by mouth. albuterol HFA (PROAIR HFA) 90 mcg/actuation inhaler Inhale 2 Puffs as instructed every 4 hours as needed. 1 Inhaler 3 cetirizine (ZYRTEC) 10 mg tablet Take 10 mg by mouth once daily. No current facility-administered medications for this visit. ROS: denied PFSH: none VITAL SIGNS: There were no vitals filed for this visit. MENTAL STATUS EXAM: CONSTITUTIONAL: Well groomed ORIENTATION: Person, Place, Time and Situation MEMORY: Recent intact CONCENTRATION: Normal MOOD: anxious AFFECT: Full and appropriate to topic SPEECH : Clear & distinct LANGUAGE : Normal ASSOCIATIONS: Intact THOUGHT PROCESS : Logical, Coherent, and Rational PROGRESSION : There was no evidence of disturbance in thought perception or progression. FUND OF KNOWLEDGE : Appropriate and Adequate SUICIDE: None HOMICIDE: none DATA REVIEWED: None DIAGNOSIS: PRIMARY: PMDD, KATHIE, MDD recurrent TREATMENT PLAN: 1. Increase viibryd to 40 mg po daily, wellbutrin XL 300 2. Return to therapy 3. Unable to tolerate neurontin in the past, Elavil 25 mg qhs for headaches and insomnia, neck and low back pain Follow Up: one month I spent a total of 30 minutes on the date of the service which included preparing to see the patient, [id number] patient care, and completing clinical documentation. ADD ON PSYCHOTHERAPY CODE : No SIGNATURE: Feli Benz DO PATIENT NAME: Brice Gomez DATE: April 25, 2023 TIME: 11:14 AM documented in this encounter [facility] 04-16-2023 Miscellaneous Notes She needs to discuss this with Dr. Brock if he has been following her for these concerns. Melissa Heard APRN.CNP Patient calling to check status of my chart message. Patient said it is her second week on the medications Dr Brock started her on, Azathioprine 50 mg daily and Cholesteramine powder. She had her last LFT done 01/12/2023 with cholesterol check for you. She is wanting to know how often you want her to do lab work? Can send my chart message back or phone number is [phone] if needed. Please see pt message Soumya Ureña documented in this encounter [facility] 03-20-2023 Miscellaneous Notes Patient requesting refill(s): [facility] Last Seen: 01/26 Upcoming appt: 04/25 Requested Prescriptions Pending Prescriptions Disp Refills vilazodone (VIIBRYD) 20 mg tablet 90 tablet 0 Sig: Take 1 tablet by mouth once daily. vilazodone (VIIBRYD) 10 mg tablet 90 tablet 0 Sig: Take 1 tablet by mouth once daily. Please process accordingly documented in this encounter [facility] 03-17-2023 Miscellaneous Notes Pharmacy faxed requesting refill(s): [facility] Requested Prescriptions Pending Prescriptions Disp Refills buPROPion XL (WELLBUTRIN XL) 300 mg 24 hr tablet 90 tablet 0 Sig: Take 1 tablet by mouth once daily. Please process accordingly Deann Wheeler documented in this encounter [facility] 02-20-2023 Miscellaneous Notes Pt notified of results and provider message. Pt reports she sees Dr. Brock to go over results. Adeline Conrad LPN Called and left a voicemail for the Patient to call back and ask for a nurse to receive the providers message. 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 I told her I could see the other lab results, but not those ones yet. documented in this encounter [facility] 01-26-2023 Note HNO ID: [id number] Author: Feli Benz DO Service: ? Author Type: Physician Type: Progress Notes Filed: 01/27/2023 9:11 AM Note Text: PSYC FOLLOW UP - PSYCHIATRIC PROGRESS NOTE CC: doing well With the patient consent, visit was performed virtually. 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 Mood has been pretty good with a few nights this week where she would wake up at one thirty. Taking klonopin which has been helpful at night . She had to take her son to the dr last week but he's better at work this week. Her 19 yr old is doing better has a new psychiatrist in [place] March 19. Risks and benefits of the medication, including any black box warnings, were discussed with the patient. Interval Progress: same PATIENT DATA: Generalized Anxiety Disorder Scale (KATHIE-7) KATHIE - 7 SCORES 10/04/2022 11/23/2022 01/19/2023 KATHIE-7 Score 3 6 4 (0-4) minimal anxiety, (5-9) mild anxiety, (10-14) moderate anxiety, (15-21) severe anxiety Patient Health Questionnaire (PHQ-9) PHQ-9 10/04/2022 11/23/2022 01/19/2023 Score 1 4 1 (0-4) minimal depression, (5-9) mild depression, (10-14) moderate depression, (15-19) moderately severe depression, (20-27) severe depression PROMIS Global Health PROMIS Global Health - (T-Scores - the mean of general population = 50. Five points is a clinically meaningful difference.) 10/04/2022 10/04/2022 01/09/2023 Physical T-Score - - 57.7 Mental T-Score 48.3 48.3 45.8 PAST MEDICAL HISTORY Diagnosis Date Abnormal uterine bleeding 01/31/2013 Allergic rhinitis, cause unspecified Allergic rhinitis. Immunotherapy in past, [facility]. Depression Fibrosclerosis of breast H. 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 Neck pain, musculoskeletal FLORENTINO (obstructive sleep apnea) 08/2016 stopped using c-pap PMH - PAST MEDICAL HISTORY OF IUD PMH - PAST MEDICAL HISTORY OF EPISODES OF TACCHYCARDIA DURING Pneumonia due to COVID-19 virus Reactive airway disease Severe pre-eclampsia, condition or complication [facility] Stone, kidney x2 Vitamin D deficiency PAST SURGICAL HISTORY Procedure Laterality Date BREAST ASPIRATION fibroadenoma removal left breast COLONOSCOPY GEN ANES 10/23/2020 blas COVID19 03/18/2020 EGD 10/23/2020 EYE SURG ANT SGMT PROC UNLISTED Bilateral 01/05/2018 PRK (Photorefractive Keratectomy) HYSTEROSCOPY WBX WWO D AND C ANDOR POLYPECTOMY 05/2013 polyp IR BASKET STONE EXTRACTION 2009 LAPAROSCOPIC HEMICOLECTOMY Right LIG/TRNSXJ FLP TUBE ABDL/VAG APPR UNI/BI Tubal ligation PAST SURGICAL HISTORY OF x2 PAST SURGICAL HISTORY OF wisdom teeth PAST SURGICAL HISTORY OF 05/19/[address] iSlveira S HERNIA PATCH,VENTRALEX,[id number] abdomen STEROTACTIC GUIDE BREAST BX 10/01/2012 u/s guidance of left breast VAGINAL HYSTERECTOMY right Ovary remains Current Outpatient Medications Medication Sig Dispense Refill esomeprazole (NEXIUM) 40 mg capsule Take 1 capsule by mouth twice daily before meals. 1/2 hr before meal. 180 capsule 5 Cholecalciferol, Vitamin D3, 25 mcg (1,000 unit) cap Take 25 mcg by mouth once daily. mometasone (NASONEX) 50 mcg/actuation nasal spray Use 2 Sprays in the nose twice daily. Fluticasone Furoate (FLONASE SENSIMIST) 27.5 mcg/actuation nasal spray Use 2 Sprays in each nostril once daily. buPROPion XL (WELLBUTRIN XL) 300 mg 24 hr tablet Take 1 tablet by mouth once daily. 90 tablet 0 vilazodone (VIIBRYD) 20 mg tablet Take 1 tablet by mouth once daily. 90 tablet 0 vilazodone (VIIBRYD) 10 mg tablet Take 1 tablet by mouth once daily. 90 tablet 0 clonazePAM (KLONOPIN) 0.5 mg tablet Take 1 tablet by mouth twice daily as needed for up to 30 days. 60 tablet 0 EPINEPHrine (EPIPEN) 0.3 mg/0.3 mL auto-injector Inject 0.3 mL subcutaneously as needed. Then seek medical attention immediately. 2 Each 1 MULTI-VITAMIN ORAL Take by mouth. albuterol HFA (PROAIR HFA) 90 mcg/actuation inhaler Inhale 2 Puffs as instructed every 4 hours as needed. 1 Inhaler 3 cetirizine (ZYRTEC) 10 mg tablet Take 10 mg by mouth once daily. No current facility-administered medications for this visit. ROS: GENERAL: Negative for malaise, significant weight loss and fever. HEENT: No changes in hearing or vision, no nose bleeds or other nasal problems. RESPIRATORY: Negative for cough, wheezing and shortness of breath. CARDIOVASCULAR: Negative for chest pain, leg swelling and palpitations. GI: Negative for abdominal discomfort, blood in stools or black stools. : Negative for dysuria, frequency and incontinence. MUSCULOSKELETAL: Negative for joint pain or swelling, back pain, and muscle pain. SKIN: Negative for lesions, rash, and itching. HEMATOLOGY/LYMPHOLOGY Negative for prolonged bleeding, bruising easily, and swollen nodes. ENDOCRINE: (more content not included)... [facility] 01-20-2023 Miscellaneous Notes Patient phones requesting refills as follows: Requested Prescriptions Pending Prescriptions Disp Refills esomeprazole (NEXIUM) 40 mg capsule 180 capsule 5 Sig: Take 1 capsule by mouth twice daily before meals. 1/2 hr before meal. SKIP-01/11/23 Labs-01/12/23 NOV-none med filled 01/10/22 Please review and advise. Valorie Mcintosh LPN documented in this encounter [facility] 01-19-2023 Note HNO ID: [id number] Author: Maggie Joyce MD Service: ? Author Type: Physician Type: Progress Notes Filed: 01/20/2023 9:39 AM Note Text: This is a consultation requested by Pedrito Brock DO for an allergy and immunology evaluation. My final recommendations will be communicated back to the requesting healthcare provider(s) by way of shared medical record or via U.S. mail. Brice Gomez is a 42 year old female who presents for further evaluation of possible immunodeficiency. On December 06, 2022, IgG was normal at 1148 mg/dL, IgA was normal at 258 mg/dL and IgM was normal at 79 mg/dL. IgE was low at 2 IU/mL. Patient reports a history of recurrent infections including sinusitis, otitis media and pneumonia. Last year, she was treated with oral steroids for otitis media without relief. She then had tympanostomy tubes placed. Since tympanostomy tube placement, she has required treatment with ciprofloxacin drops for ear infections. She has a history of sinusitis. She may have taken 1 course of antibiotics for sinusitis in the past year. Denies a history nasal polyposis and nasal trauma. No recent imaging of the sinuses. Denies prior nasal or sinus surgery. She has a history of pneumonia treated as an outpatient. She was hospitalized for COVID-19 in February, for 13 days. She was admitted to the intensive care unit but was not intubated. She required treatment with supplemental oxygen for 4 months after the hospitalization. She has a history of reactive airways disease. Spirometry and lung volumes were normal on June 04, 2020. Most recently used albuterol in October,. She has a history of shingles. She has a history of H. pylori. She has taken 2 courses of systemic steroids in the past year. Denies use of other immunosuppressive medications previously. Her mother has a history of recurrent infections. She has not received the Pneumovax. She c/o chronic nasal congestion. Also with intermittent itching eyes. Symptoms are perennial with exacerbation in the spring summer and fall. She uses Nasonex or Flonase Sensimist and Zyrtec with improvement in her symptoms. She has been on subcutaneous allergy immunotherapy several times previously with improvement in her symptoms. She most recently completed a course of subcutaneous immunotherapy as prescribed by [place] [facility] in 2013. Denies systemic reactions to immunotherapy. She takes Nexium 40 mg daily for GERD symptoms. She is scheduled to have an EGD completed. History of large local reaction with insect stings. No systemic symptoms. 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 Further details regarding prior reactions to medications may be found in my clinic note dated January 08, 2014. 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 REVIEW OF SYSTEMS: SINUSITIS: See NEWHALEN ASTHMA: The patient has no history of asthma. ECZEMA: The patient has no history of eczema. URTICARIA:The patient does not have a history of urticaria and/or angioedema. GERD: See NEWHALEN INSECT STING: The patient does not have a history of systemic reaction to insect sting. FOOD ALLERGY:The patient denies history of food allergy. LATEX: The patient does not have a history of adverse reaction to latex. All other review of systems negative except for those listed above. PAST MEDICAL HISTORY Diagnosis Date Abnormal uterine bleeding 01/31/2013 Allergic rhinitis, cause unspecified Allergic rhinitis. Immunotherapy in past, Dr. Bond, [facility]. Depression Fibrosclerosis of breast H. 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 mometasone (NASONEX) 50 mcg/actuation nasal spray Use 2 Sprays in the nose twice daily. Fluticasone Furoate (FLONASE SENSIMIST) 27.5 mcg/actuation nasal spray Use 2 Sprays in each nostril once daily. buPROPion XL (WELLBUTRIN XL) 300 mg 24 hr tablet Take 1 tablet by mouth once daily. vilazodone (VIIBRYD) 20 mg tablet Take 1 tablet by mouth once daily. vilazodone (VIIBRYD) 10 mg tablet Take 1 tablet by mouth once daily. clonazePAM (KLONOPIN) 0.5 mg tablet Take 1 tablet by mouth twice daily as needed for up to 30 days. esomeprazole (NEXIUM) 40 mg capsule Take 1 capsule by mouth twice daily before meals. 1/2 hr before meal. EPINEPHrine (EPIPEN) 0.3 mg/0.3 mL auto-i (more content not included)... [facility] 01-19-2023 History of Presen t illness Narrative This is a consultation requested by Pedrito Brock DO for an allergy and immunology evaluation. My final recommendations will be communicated back to the requesting healthcare provider(s) by way of shared medical record or via U.S. mail. Brice Gomez is a 42 year old female who presents for further evaluation of possible immunodeficiency. On December 06, 2022, IgG was normal at 1148 mg/dL, IgA was normal at 258 mg/dL and IgM was normal at 79 mg/dL. IgE was low at 2 IU/mL. Patient reports a history of recurrent infections including sinusitis, otitis media and pneumonia. Last year, she was treated with oral steroids for otitis media without relief. She then had tympanostomy tubes placed. Since tympanostomy tube placement, she has required treatment with ciprofloxacin drops for ear infections. She has a history of sinusitis. She may have taken 1 course of antibiotics for sinusitis in the past year. Denies a history nasal polyposis and nasal trauma. No recent imaging of the sinuses. Denies prior nasal or sinus surgery. She has a history of pneumonia treated as an outpatient. She was hospitalized for COVID-19 in February, for 13 days. She was admitted to the intensive care unit but was not intubated. She required treatment with supplemental oxygen for 4 months after the hospitalization. She has a history of reactive airways disease. Spirometry and lung volumes were normal on June 04, 2020. Most recently used albuterol in October,. She has a history of shingles. She has a history of H. pylori. She has taken 2 courses of systemic steroids in the past year. Denies use of other immunosuppressive medications previously. Her mother has a history of recurrent infections. She has not received the Pneumovax. She c/o chronic nasal congestion. Also with intermittent itching eyes. Symptoms are perennial with exacerbation in the spring and fall. She uses Nasonex or Flonase Sensimist and Zyrtec with improvement in her symptoms. She has been on subcutaneous allergy immunotherapy several times previously with improvement in her symptoms. She most recently completed a course of subcutaneous immunotherapy as prescribed by [facility] in 2013. Denies systemic reactions to immunotherapy. She takes Nexium 40 mg daily for GERD symptoms. She is scheduled to have an EGD completed. History of large local reaction with insect stings. No systemic symptoms. 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 Further details regarding prior reactions to medications may be found in my clinic note dated January 08, 2014. 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 REVIEW OF SYSTEMS: SINUSITIS: See NEWHALEN ASTHMA: The patient has no history of asthma. ECZEMA: The patient has no history of eczema. URTICARIA:The patient does not have a history of urticaria and/or angioedema. GERD: See NEWHALEN INSECT STING: The patient does not have a history of systemic reaction to insect sting. FOOD ALLERGY:The patient denies history of food allergy. LATEX: The patient does not have a history of adverse reaction to latex. All other review of systems negative except for those listed above. PAST MEDICAL HISTORY Diagnosis Date Abnormal uterine bleeding 01/31/2013 Allergic rhinitis, cause unspecified Allergic rhinitis. Immunotherapy in past, Dr. Bond [facility]. Depression Fibrosclerosis of breast H. 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 mometasone (NASONEX) 50 mcg/actuation nasal spray Use 2 Sprays in the nose twice daily. Fluticasone Furoate (FLONASE SENSIMIST) 27.5 mcg/actuation nasal spray Use 2 Sprays in each nostril once daily. buPROPion XL (WELLBUTRIN XL) 300 mg 24 hr tablet Take 1 tablet by mouth once daily. vilazodone (VIIBRYD) 20 mg tablet Take 1 tablet by mouth once daily. vilazodone (VIIBRYD) 10 mg tablet Take 1 tablet by mouth once daily. clonazePAM (KLONOPIN) 0.5 mg tablet Take 1 tablet by mouth twice daily as needed for up to 30 days. esomeprazole (NEXIUM) 40 mg capsule Take 1 capsule by mouth twice daily before meals. 1/2 hr before meal. EPINEPHrine (EPIPEN) 0.3 mg/0.3 mL auto-injector Inject 0.3 mL subcutaneously as needed. Then seek medical attention immediately. MULTI-VITAMIN ORAL Take by mouth. albuterol HFA (PROAIR HFA) 90 mcg/actuation inhaler Inhale 2 Puffs as instructed every 4 hours as needed. cetirizine (ZYRTEC) 10 mg tablet Take 10 mg by mouth once daily. ALLERGIES: Allergies As of Date: 01/19/2023 Allergen Noted Reaction CLINDAMYCIN 09/27/2016 Unknown BEE STING 05/02/2011 Hives BIAXIN [CLARITHROMYCIN] 01/08/2014 Rash CELEXA [CITALOPRAM] 02/14/2006 GI Upset ENTEX [PHENYLEPHRINE-GUAIFENESIN] 02/14/2006 Intolerance FLAGYL [METRONIDAZOLE HCL] 01/08/2014 Rash KEFLEX [CEPHALEXIN] 05/11/2009 Rash MINOCYCLINE 02/14/2006 Hives PENICILLINS 03/14/2006 Rash and Itching Fully Assessed 01/19/2023 PAST SURGICAL HISTORY Procedure Laterality Date BREAST ASPIRATION fibroadenoma removal left breast COLONOSCOPY GEN ANES 10/23/2020 blas COVID19 03/18/2020 EGD 10/23/2020 EYE SURG ANT SGMT PROC UNLISTED Bilateral 01/05/2018 PRK (Photorefractive Keratectomy) HYSTEROSCOPY WBX WWO D AND C ANDOR POLYPECTOMY 05/2013 polyp IR BASKET STONE EXTRACTION 2009 LAPAROSCOPIC HEMICOLECTOMY Right LIG/TRNSXJ FLP TUBE ABDL/VAG APPR UNI/BI Tubal ligation PAST SURGICAL HISTORY OF x2 PAST SURGICAL HISTORY OF wisdom teeth PAST SURGICAL HISTORY OF 05/19/2016 D&C and ablation Dr. Silveira S HERNIA PATCH,VENTRALEX,[id number] abdomen STEROTACTIC GUIDE BREAST BX 10/01/2012 u/s guidance of left breast VAGINAL HYSTERECTOMY right Ovary remains FAMILY HISTORY: Allergic rhinitis:yes: mom and son. Asthma: yes: son. Eczema: no. Cystic fibrosis: no. Immunodeficiency: no. 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 Spouse ex-smoker last 13 years. ENVIRONMENTAL HISTORY: Lives in a house Age of home: 20 years Heating: forced hot air, gas Woodburning fireplace in the home: no Air conditioning: Central air Basement: Dry basement Lisbet: Hardwood floor Dust mite controls: Dust mite controls are not in place. Pets in the home: 3 cats, 1 dogs Outdoor animals: There are no outdoor animals Tobacco smoke: no Physical Exam: GENERAL APPEARANCE:Well appearing, alert, in no acute distress, well-hydrated, well nourished. HEENT: NCAT. EYES: conjunctiva and sclera normal. EARS: External ears normal. Canals clear. TM's normal. NOSE/SINUS: Nares normal. Septum midline. Mucosa normal. No drainage or sinus tenderness. THROAT: no erythema NECK:neck supple, no adenopathy HEART:RRR with normal S1 and S2 ,no murmurs, no gallops, no rubs LUNGS: clear to auscultation bilaterally, no wheezes, rales or rhonchi ABDOMEN:soft, nontender, nondistended, without organomegaly or palpable masses EXTREMITIES:Extremities normal, No deformities, No skin discoloration, and No edema SKIN: Skin color, texture, turgor normal. No rashes or lesions. ALLERGY SKIN TESTS:Deferred due to patient preference/cost concerns. ASSESSMENT/PLAN: 1.) Recurrent infections: IgG, IgA and IgM were within normal limits. Although IgE level was below normal, this does not raise concern for or place the patient at increased risk for immunodeficiency. Further evaluation will be completed for possible specific antibody deficiency. Pneumococcal IgG titers, tetanus IgG and diphtheria IgG titers will be obtained. The Pneumovax was administered today. Repeat pneumococcal IgG titers will be obtained 1 month post vaccination. 2.) Chronic rhinitis: Patient declined the completion of allergy skin tests today due to cost concerns. Continue Nasonex or Flonase Sensimist 2 sprays each nostril once daily. Continue Zyrtec 10 mg once daily as needed. She may also use [id number] olopatadine eyedrops as needed. 3.) Reactive airways disease: Continue albuterol HFA inhaler 2 puffs every 4 hours as needed. May also use 15 to 20 minutes preexercise. 4.) History of large local reaction to hymenoptera sting: Insect sting avoidance measures were discussed. Treatment of local reactions includes application of cold compresses, elevation of the affected extremity, NSAIDs as needed for pain and oral antihistamines as needed for itching. A short course of prednisone (for example, 40 mg daily for 3-5 days) may be considered for episodes of moderate to severe swelling. With a history of large local reactions, there is a 7% risk of having a systemic reaction with subsequent stings. Most often these reactions are limited to cutaneous symptoms. In less than 3%, the reaction is moderate to severe anaphylaxis. Carrying epinephrine autoinjectors may be considered but is not absolutely necessary in patients with a history of large local reactions. Venom allergy testing and venom immunotherapy are not recommended in patients with a history of large local reactions without systemic symptoms. 5.) Discussed medication dosage, usage, side effects, and goals of treatment in detail. 6.) Patient will be contacted regarding laboratory results and further recommendations regarding follow-up will be made at that time- patient will return sooner should new symptoms or problems arise. Maggie Joyce MD documented in this encounter [facility] 01-19-2023 Nurse Note Patient here for consult regarding frequent infections, sinus and ear infections. Recently had tubes inserted in October for inability to hear. Had COVID in February 2020 needing oxygen for 4 months after. Also has seasonal allergy symptoms of nasal congestion and drainage, sneezing and coughing. Zyrtec works well. Suffers year round. Off antihistamines past 5 days. documented in this encounter [facility] 01-11-2023 Note HNO ID: [id number] Author: To Matthews, DO Service: ? Author Type: Physician Type: Progress Notes Filed: 01/11/2023 9:22 PM Note Text: CC: Brice Gomez is a 42 year old female who presents to the office for follow up HPI: Seen in office on 10/11/2022 Had episode of gross hematuria about 1 month ago, she denies any pain when she had this episode. She was seen in UC and had normal urine culture. She was asymptomatic. She is concerned with this since although she has had kidney stones in the past, she didn't have any pain with this hematuria. No further bleeding has been noticed. Mood, feels her anxiety and panic symptoms are getting better. She has been seeing Psychiatry and psychology. She is taking Vibryd medication and tolerating rx well without SE. No SI or HI. Also taking her wellbutrin and clonazepam. Was able to mostly enjoy her cruise she took away with her except for 2 panic attacks while on the cruise Currently Diarrhea., loose, non bloody, has been significant and chronic x months, has been seen recently by Gastroenterology Dr. Brock at [facility], has had testing of IBD panel with concerns for + AMCA as well as low IgE levels. Otherwise normal other labs. Admits that she is concerned due to her fam hx of esophageal cancer in her grandfather and mother diagnosed with Celiac disease as well with esophageal erosions. Unable to determine food trigger, doesn't eat a spicy diet and still with symptoms. Mood, stable, taking medications as prescribed Oldest son diagnosed with + HLA B27, she is requesting testing to try to figure out where he gets this from and she does get joint pains and muscle stiffness. Hasn't followed up with [facility] for her painless hematuria yet PAST MEDICAL HISTORY Diagnosis Date Abnormal uterine bleeding 01/31/2013 Allergic rhinitis, cause unspecified Allergic rhinitis. Immunotherapy in past, [facility]. Depression Fibrosclerosis of breast H. 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 Neck pain, musculoskeletal FLORENTINO (obstructive sleep apnea) 08/2016 stopped using c-pap PMH - PAST MEDICAL HISTORY OF IUD PMH - PAST MEDICAL HISTORY OF EPISODES OF TACCHYCARDIA DURING Pneumonia due to COVID-19 virus Reactive airway disease Severe pre-eclampsia, condition or complication [facility] Stone, kidney x2 Vitamin D deficiency PAST SURGICAL HISTORY Procedure Laterality Date BREAST ASPIRATION fibroadenoma removal left breast COLONOSCOPY GEN ANES 10/23/2020 blas COVID19 03/18/2020 EGD 10/23/2020 EYE SURG ANT SGMT PROC UNLISTED Bilateral 01/05/2018 PRK (Photorefractive Keratectomy) HYSTEROSCOPY WBX WWO D AND C ANDOR POLYPECTOMY 05/2013 polyp IR BASKET STONE EXTRACTION 2009 LAPAROSCOPIC HEMICOLECTOMY Right LIG/TRNSXJ FLP TUBE ABDL/VAG APPR UNI/BI Tubal ligation PAST SURGICAL HISTORY OF x2 PAST SURGICAL HISTORY OF wisdom teeth PAST SURGICAL HISTORY OF 05/19/[address] Raoul Rushing HERNIA PATCH,VENTRALEX,[id number] abdomen STEROTACTIC GUIDE BREAST BX 10/01/2012 u/s guidance of left breast VAGINAL HYSTERECTOMY right Ovary remains Current Outpatient Medications Medication Sig esomeprazole (NEXIUM) 40 mg capsule Take 1 capsule by mouth twice daily before meals. 1/2 hr before meal. EPINEPHrine (EPIPEN) 0.3 mg/0.3 mL auto-injector Inject 0.3 mL subcutaneously as needed. Then seek medical attention immediately. MULTI-VITAMIN ORAL Take by mouth. albuterol HFA (PROAIR HFA) 90 mcg/actuation inhaler Inhale 2 Puffs as instructed every 4 hours as needed. cetirizine (ZYRTEC) 10 mg tablet Take 10 mg by mouth once daily. buPROPion XL (WELLBUTRIN XL) 300 mg 24 hr tablet Take 1 tablet by mouth once daily. vilazodone (VIIBRYD) 20 mg tablet Take 1 tablet by mouth once daily. vilazodone (VIIBRYD) 10 mg tablet Take 1 tablet by mouth once daily. clonazePAM (KLONOPIN) 0.5 mg tablet Take 1 tablet by mouth twice daily as needed for up to 30 days. clindamycin (CLEOCIN) 150 mg capsule promethazine (PHENERGAN) 6.25 mg/5 mL syrup Take 20 mL by mouth four times daily as needed. benzonatate (TESSALON PERLES) 100 mg capsule Take 1 capsule by mouth three times daily as needed for cough. esomeprazole (NEXIUM) 20 mg capsule Take 1 capsule by mouth daily before breakfast. 1/2 hr before meal. vilazodone (VIIBRYD) 20 mg tablet Take 1 tablet by mouth once daily. vilazodone (VIIBRYD) 20 mg tablet Take 1 tablet by mouth once daily. vitamin D3-vitamin K2, MK4, 1,000-100 unit-mcg tab Take by mouth. hyoscyamine sublingual (LEVSIN SL) 0.125 mg For diarrhea/cramping, Take 1-2 tablets under tongue every 4hrs as needed. Max 12 tabs per day. No current facility-administered medications for this visit. ALLERGIES Allergen Reactions Clindamycin Unknown Bee Sting Hives Facial edema Biaxin [ (more content not included)... [facility] 01-11-2023 History of Presen t illness Narrative CC: Brice Gomez is a 42 year old female who presents to the office for follow up HPI: Seen in office on 10/11/2022 Had episode of gross hematuria about 1 month ago, she denies any pain when she had this episode. She was seen in UC and had normal urine culture. She was asymptomatic. She is concerned with this since although she has had kidney stones in the past, she didn't have any pain with this hematuria. No further bleeding has been noticed. Mood, feels her anxiety and panic symptoms are getting better. She has been seeing Psychiatry and psychology. She is taking Vibryd medication and tolerating rx well without SE. No SI or HI. Also taking her wellbutrin and clonazepam. Was able to mostly enjoy her cruise she took away with her except for 2 panic attacks while on the cruise Currently Diarrhea., loose, non bloody, has been significant and chronic x months, has been seen recently by Gastroenterology Dr. Brock at [facility], has had testing of IBD panel with concerns for + AMCA as well as low IgE levels. Otherwise normal other labs. Admits that she is concerned due to her fam hx of esophageal cancer in her grandfather and mother diagnosed with Celiac disease as well with esophageal erosions. Unable to determine food trigger, doesn't eat a spicy diet and still with symptoms. Mood, stable, taking medications as prescribed Oldest son diagnosed with + HLA B27, she is requesting testing to try to figure out where he gets this from and she does get joint pains and muscle stiffness. Hasn't followed up with URO for her painless hematuria yet PAST MEDICAL HISTORY Diagnosis Date Abnormal uterine bleeding 01/31/2013 Allergic rhinitis, cause unspecified Allergic rhinitis. Immunotherapy in past, [facility]. Depression Fibrosclerosis of breast H. 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 Neck pain, musculoskeletal FLORENTINO (obstructive sleep apnea) 08/2016 stopped using c-pap PMH - PAST MEDICAL HISTORY OF IUD PMH - PAST MEDICAL HISTORY OF EPISODES OF TACCHYCARDIA DURING Pneumonia due to COVID-19 virus Reactive airway disease Severe pre-eclampsia, condition or complication [facility] Stone, kidney x2 Vitamin D deficiency PAST SURGICAL HISTORY Procedure Laterality Date BREAST ASPIRATION fibroadenoma removal left breast COLONOSCOPY GEN ANES 10/23/2020 blas COVID19 03/18/2020 EGD 10/23/2020 EYE SURG ANT SGMT PROC UNLISTED Bilateral 01/05/2018 PRK (Photorefractive Keratectomy) HYSTEROSCOPY WBX WWO D AND C ANDOR POLYPECTOMY 05/2013 polyp IR BASKET STONE EXTRACTION 2009 LAPAROSCOPIC HEMICOLECTOMY Right LIG/TRNSXJ FLP TUBE ABDL/VAG APPR UNI/BI Tubal ligation PAST SURGICAL HISTORY OF x2 PAST SURGICAL HISTORY OF wisdom teeth PAST SURGICAL HISTORY OF 05/19/2016 D&C and ablation Dr. Silveira S HERNIA PATCH,VENTRALEX,[id number] abdomen STEROTACTIC GUIDE BREAST BX 10/01/2012 u/s guidance of left breast VAGINAL HYSTERECTOMY right Ovary remains Current Outpatient Medications Medication Sig esomeprazole (NEXIUM) 40 mg capsule Take 1 capsule by mouth twice daily before meals. 1/2 hr before meal. EPINEPHrine (EPIPEN) 0.3 mg/0.3 mL auto-injector Inject 0.3 mL subcutaneously as needed. Then seek medical attention immediately. MULTI-VITAMIN ORAL Take by mouth. albuterol HFA (PROAIR HFA) 90 mcg/actuation inhaler Inhale 2 Puffs as instructed every 4 hours as needed. cetirizine (ZYRTEC) 10 mg tablet Take 10 mg by mouth once daily. buPROPion XL (WELLBUTRIN XL) 300 mg 24 hr tablet Take 1 tablet by mouth once daily. vilazodone (VIIBRYD) 20 mg tablet Take 1 tablet by mouth once daily. vilazodone (VIIBRYD) 10 mg tablet Take 1 tablet by mouth once daily. clonazePAM (KLONOPIN) 0.5 mg tablet Take 1 tablet by mouth twice daily as needed for up to 30 days. clindamycin (CLEOCIN) 150 mg capsule promethazine (PHENERGAN) 6.25 mg/5 mL syrup Take 20 mL by mouth four times daily as needed. benzonatate (TESSALON PERLES) 100 mg capsule Take 1 capsule by mouth three times daily as needed for cough. esomeprazole (NEXIUM) 20 mg capsule Take 1 capsule by mouth daily before breakfast. 1/2 hr before meal. vilazodone (VIIBRYD) 20 mg tablet Take 1 tablet by mouth once daily. vilazodone (VIIBRYD) 20 mg tablet Take 1 tablet by mouth once daily. vitamin D3-vitamin K2, MK4, 1,000-100 unit-mcg tab Take by mouth. hyoscyamine sublingual (LEVSIN SL) 0.125 mg For diarrhea/cramping, Take 1-2 tablets under tongue every 4hrs as needed. Max 12 tabs per day. No current facility-administered medications for this visit. ALLERGIES Allergen Reactions Clindamycin Unknown Bee Sting Hives Facial edema Biaxin [Clarithromy* Rash Patient developed a pruritic rash 7 days into course of biaxin and flagyl for H pylori infection. No mucous membrane involvement, exfoliation, fevers or joint pain/swelling. Celexa [Citalopram] GI Upset Entex [Phenylephrin* Intolerance Tachycardia Flagyl [Metronidazo* Rash Patient developed a pruritic rash 7 days into course of biaxin and flagyl for H pylori infection. No mucous membrane involvement, exfoliation, fevers or joint pain/swelling. Keflex [Cephalexin] Rash Minocycline Hives Penicillins Rash, Itching Edmund Darrick type reaction. Pseudoephedrine Other: See Comments Social History Tobacco Use Smoking status: Never Smokeless tobacco: Never Tobacco comments: Step father smoked in childhood. Spouse ex-smoker last 13 years. Vaping Use Vaping Use: Never used Substance Use Topics Alcohol use: Yes Comment: Rarely Drug use: No ROS: See HPI. PE: BP 120/60 Pulse 76 Temp (Src) 98.3 (Left Tympanic) Resp 16 Wt 152 lb (68.9kg) LMP 08/24/2020 Gen: A&OX3, NAD, non-toxic appearing HEENT: PERRLA, EOMs intact b/l, nares without drainage, pharynx without erythema, exudate, lesions, or drainage. Uvula midline. Neck: No LAD, no thyromegaly, no meningismus. CV: RRR, no murmur Lungs: CTA b/l, no wheezing Increased normal pitch bowel sounds, mildly bloated appearing Skin: No rashes, lesions, or wounds on exposed skin. ASSESSMENT/PLAN: 1. Diarrhea, unspecified type - ICD9: 787.91, ICD10: R19.7 (primary diagnosis) Needs follow up with further labs as ordered, f/u with Dr. Brock for EGD on 02/16 and need for consideration of Capsule endoscopy as well. - C-REACTIVE PROTEIN (CRP) - CELIAC COMPREHENSIVE PANEL - SED RATE WESTERGREN - COMP METABOLIC PANEL 2. GERD without esophagitis - ICD9: 530.81, ICD10: K21.9 Needs follow up with further labs as ordered, f/u with Dr. Brock for EGD on 02/16 and need for consideration of Capsule endoscopy as well due to her +AMCA antibody and diarrheal symptoms chronic - C-REACTIVE PROTEIN (CRP) - CELIAC COMPREHENSIVE PANEL - SED RATE WESTERGREN - COMP METABOLIC PANEL 3. HLA B27 (HLA B27 positive) - ICD9: V84.89, ICD10: Z15.89 See above - HLA-B27 PCR 4. Dyslipidemia - ICD9: 272.4, ICD10: E78.5 - to be determined upon return of lab results - Encouraged following a low fat, low cholesterol diet. - Discussed the benefits of regular aerobic exercise and weight loss. - LIPID PANEL BASIC - HGB A1C - COMP METABOLIC PANEL 5. Painless hematuria - ICD9: 599.70, ICD10: R31.9 - f/u with Urology for cystoscopy, no current symptoms, negative urine cytology 6. KATHIE (generalized anxiety disorder) - ICD9: 300.02, ICD10: F41.1 - f/u with Psychiatry, improved To Matthews DO Return if no improvement. Follow up with To Matthews DO. To ER if develops chest pain, shortness of breath Discussed risks, benefits, alternatives, and potential side effects of medications. Patient/Guardian expressed understanding and agreed with the plan. See patient instructions. To Matthews DO [address] [place] [address] documented in this encounter [facility] 01-06-2023 Miscellaneous Notes Scheduled Please call patient to schedule with either allergy provider from referral from Dr. Brock. documented in this encounter [facility] 12-06-2022 Miscellaneous Notes PA denied- Patient notified. RAHUL requested for vilazodone (VIIBRYD) 10 mg tablet Submitted with [employer] and under review - Shaffer: [id number] Deann Wheeler November 24, 2022 4:46 PM documented in this encounter [facility] 11-24-2022 Note HNO ID: [id number] Author: Feli Benz DO Service: ? Author Type: Physician Type: Progress Notes Filed: 11/24/2022 11:39 AM Note Text: PSYC FOLLOW UP - PSYCHIATRIC PROGRESS NOTE CC: anxiety follow up With the patient consent, visit was performed virtually. HPI: Pt has been with decreased hearing which has been problematic at her job. She had an infection needing antibiotics. Tubes didn't help in the ears. Had a panic attack when she woke up from anesthesia unable to hear. She had a rough holiday as wasn't able to hear which made her depressed. Risks and benefits of the medication, including any black box warnings, were discussed with the patient. Interval Progress: same PATIENT DATA: Generalized Anxiety Disorder Scale (KAHTIE-7) KATHIE - 7 SCORES 08/30/2022 10/04/2022 11/23/2022 KATHIE-7 Score 7 3 6 (0-4) minimal anxiety, (5-9) mild anxiety, (10-14) moderate anxiety, (15-21) severe anxiety Patient Health Questionnaire (PHQ-9) PHQ-9 08/30/2022 10/04/2022 11/23/2022 Score 6 1 4 (0-4) minimal depression, (5-9) mild depression, (10-14) moderate depression, (15-19) moderately severe depression, (20-27) severe depression PROMIS Global Health PROMIS Global Health - (T-Scores - the mean of general population = 50. Five points is a clinically meaningful difference.) 08/09/2022 10/04/2022 10/04/2022 Physical T-Score 47.7 - - Mental T-Score 38.8 48.3 48.3 PAST MEDICAL HISTORY Diagnosis Date Abnormal uterine bleeding 01/31/2013 Allergic rhinitis, cause unspecified Allergic rhinitis. Immunotherapy in past, [facility]. Depression Fibrosclerosis of breast H. 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 Neck pain, musculoskeletal FLORENTINO (obstructive sleep apnea) 08/2016 stopped using c-pap PMH - PAST MEDICAL HISTORY OF IUD PMH - PAST MEDICAL HISTORY OF EPISODES OF TACCHYCARDIA DURING Pneumonia due to COVID-19 virus Reactive airway disease Severe pre-eclampsia, condition or complication [facility] Stone, kidney x2 Vitamin D deficiency PAST SURGICAL HISTORY Procedure Laterality Date BREAST ASPIRATION fibroadenoma removal left breast COLONOSCOPY GEN ANES 10/23/2020 blas COVID19 03/18/2020 EGD 10/23/2020 EYE SURG ANT SGMT PROC UNLISTED Bilateral 01/05/2018 PRK (Photorefractive Keratectomy) HYSTEROSCOPY WBX WWO D AND C ANDOR POLYPECTOMY 05/2013 polyp IR BASKET STONE EXTRACTION 2009 LAPAROSCOPIC HEMICOLECTOMY Right LIG/TRNSXJ FLP TUBE ABDL/VAG APPR UNI/BI Tubal ligation PAST SURGICAL HISTORY OF x2 PAST SURGICAL HISTORY OF wisdom teeth PAST SURGICAL HISTORY OF 05/19/[address] Silveira S HERNIA PATCH,VENTRALEX,[id number] abdomen STEROTACTIC GUIDE BREAST BX 10/01/2012 u/s guidance of left breast VAGINAL HYSTERECTOMY right Ovary remains Current Outpatient Medications Medication Sig Dispense Refill predniSONE (DELTASONE) 10 mg tablet Take 4 tabs daily x 3 days, then 3 tabs x 3 days, 2 tabs x 3 days, then 1 tab x3 days with food. 30 tablet 0 clindamycin (CLEOCIN) 150 mg capsule promethazine (PHENERGAN) 6.25 mg/5 mL syrup Take 20 mL by mouth four times daily as needed. 473 mL 1 benzonatate (TESSALON PERLES) 100 mg capsule Take 1 capsule by mouth three times daily as needed for cough. 12 capsule 0 esomeprazole (NEXIUM) 20 mg capsule Take 1 capsule by mouth daily before breakfast. 1/2 hr before meal. 90 capsule 1 vilazodone (VIIBRYD) 20 mg tablet Take 1 tablet by mouth once daily. 90 tablet 0 vilazodone (VIIBRYD) 10 mg tablet Take 1 tablet by mouth once daily. 90 tablet 0 buPROPion XL (WELLBUTRIN XL) 300 mg 24 hr tablet Take 1 tablet by mouth once daily. 90 tablet 0 clonazePAM (KLONOPIN) 0.5 mg tablet Take 1 tablet by mouth twice daily as needed for up to 30 days. 30 tablet 0 vilazodone (VIIBRYD) 20 mg tablet Take 1 tablet by mouth once daily. 90 tablet 0 vilazodone (VIIBRYD) 20 mg tablet Take 1 tablet by mouth once daily. 30 tablet 0 vitamin D3-vitamin K2, MK4, 1,000-100 unit-mcg tab Take by mouth. hyoscyamine sublingual (LEVSIN SL) 0.125 mg For diarrhea/cramping, Take 1-2 tablets under tongue every 4hrs as needed. Max 12 tabs per day. 30 tablet 1 esomeprazole (NEXIUM) 40 mg capsule Take 1 capsule by mouth twice daily before meals. 1/2 hr before meal. 180 capsule 5 EPINEPHrine (EPIPEN) 0.3 mg/0.3 mL auto-injector Inject 0.3 mL subcutaneously as needed. Then seek medical attention immediately. 2 Each 1 MULTI-VITAMIN ORAL Take by mouth. albuterol HFA (PROAIR HFA) 90 mcg/actuation inhaler Inhale 2 Puffs as instructed every 4 hours as needed. 1 Inhaler 3 cetirizine (ZYRTEC) 10 mg tablet Take 10 mg by mouth once daily. No current facility-administered medications for this visit. ROS: HEENT decreased ability to hear PFSH: none VITAL SIGNS: There were no vitals filed for this vi (more content not included)... [facility] 11-24-[facility]22 History of Presen t illness Narrative Images from the original note were not included. PSYC FOLLOW UP - PSYCHIATRIC PROGRESS NOTE CC: anxiety follow up With the patient consent, visit was performed virtually. HPI: Pt has been with decreased hearing which has been problematic at her job. She had an infection needing antibiotics. Tubes didn't help in the ears. Had a panic attack when she woke up from anesthesia unable to hear. She had a rough holiday as wasn't able to hear which made her depressed. Risks and benefits of the medication, including any black box warnings, were discussed with the patient. Interval Progress: same PATIENT DATA: Generalized Anxiety Disorder Scale (KATHIE-7) KATHIE - 7 SCORES 08/30/2022 10/04/2022 11/23/2022 KATHIE-7 Score 7 3 6 (0-4) minimal anxiety, (5-9) mild anxiety, (10-14) moderate anxiety, (15-21) severe anxiety Patient Health Questionnaire (PHQ-9) PHQ-9 08/30/2022 10/04/2022 11/23/2022 Score 6 1 4 (0-4) minimal depression, (5-9) mild depression, (10-14) moderate depression, (15-19) moderately severe depression, (20-27) severe depression PROMIS Global Health PROMIS Global Health - (T-Scores - the mean of general population = 50. Five points is a clinically meaningful difference.) 08/09/2022 10/04/2022 10/04/2022 Physical T-Score 47.7 - - Mental T-Score 38.8 48.3 48.3 PAST MEDICAL HISTORY Diagnosis Date Abnormal uterine bleeding 01/31/2013 Allergic rhinitis, cause unspecified Allergic rhinitis. Immunotherapy in past, [facility]. Depression Fibrosclerosis of breast H. 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 Neck pain, musculoskeletal FLORENTINO (obstructive sleep apnea) 08/2016 stopped using c-pap PMH - PAST MEDICAL HISTORY OF IUD PMH - PAST MEDICAL HISTORY OF EPISODES OF TACCHYCARDIA DURING Pneumonia due to COVID-19 virus Reactive airway disease Severe pre-eclampsia, condition or complication [facility] Stone, kidney x2 Vitamin D deficiency PAST SURGICAL HISTORY Procedure Laterality Date BREAST ASPIRATION fibroadenoma removal left breast COLONOSCOPY GEN ANES 10/23/2020 blas COVID19 03/18/2020 EGD 10/23/2020 EYE SURG ANT SGMT PROC UNLISTED Bilateral 01/05/2018 PRK (Photorefractive Keratectomy) HYSTEROSCOPY WBX WWO D AND C ANDOR POLYPECTOMY 05/2013 polyp IR BASKET STONE EXTRACTION 2009 LAPAROSCOPIC HEMICOLECTOMY Right LIG/TRNSXJ FLP TUBE ABDL/VAG APPR UNI/BI Tubal ligation PAST SURGICAL HISTORY OF x2 PAST SURGICAL HISTORY OF wisdom teeth PAST SURGICAL HISTORY OF 05/19/2016 D&C and ablation Dr. Silveira S HERNIA PATCH,VENTRALEX,[id number] abdomen STEROTACTIC GUIDE BREAST BX 10/01/2012 u/s guidance of left breast VAGINAL HYSTERECTOMY right Ovary remains Current Outpatient Medications Medication Sig Dispense Refill predniSONE (DELTASONE) 10 mg tablet Take 4 tabs daily x 3 days, then 3 tabs x 3 days, 2 tabs x 3 days, then 1 tab x3 days with food. 30 tablet 0 clindamycin (CLEOCIN) 150 mg capsule promethazine (PHENERGAN) 6.25 mg/5 mL syrup Take 20 mL by mouth four times daily as needed. 473 mL 1 benzonatate (TESSALON PERLES) 100 mg capsule Take 1 capsule by mouth three times daily as needed for cough. 12 capsule 0 esomeprazole (NEXIUM) 20 mg capsule Take 1 capsule by mouth daily before breakfast. 1/2 hr before meal. 90 capsule 1 vilazodone (VIIBRYD) 20 mg tablet Take 1 tablet by mouth once daily. 90 tablet 0 vilazodone (VIIBRYD) 10 mg tablet Take 1 tablet by mouth once daily. 90 tablet 0 buPROPion XL (WELLBUTRIN XL) 300 mg 24 hr tablet Take 1 tablet by mouth once daily. 90 tablet 0 clonazePAM (KLONOPIN) 0.5 mg tablet Take 1 tablet by mouth twice daily as needed for up to 30 days. 30 tablet 0 vilazodone (VIIBRYD) 20 mg tablet Take 1 tablet by mouth once daily. 90 tablet 0 vilazodone (VIIBRYD) 20 mg tablet Take 1 tablet by mouth once daily. 30 tablet 0 vitamin D3-vitamin K2, MK4, 1,000-100 unit-mcg tab Take by mouth. hyoscyamine sublingual (LEVSIN SL) 0.125 mg For diarrhea/cramping, Take 1-2 tablets under tongue every 4hrs as needed. Max 12 tabs per day. 30 tablet 1 esomeprazole (NEXIUM) 40 mg capsule Take 1 capsule by mouth twice daily before meals. 1/2 hr before meal. 180 capsule 5 EPINEPHrine (EPIPEN) 0.3 mg/0.3 mL auto-injector Inject 0.3 mL subcutaneously as needed. Then seek medical attention immediately. 2 Each 1 MULTI-VITAMIN ORAL Take by mouth. albuterol HFA (PROAIR HFA) 90 mcg/actuation inhaler Inhale 2 Puffs as instructed every 4 hours as needed. 1 Inhaler 3 cetirizine (ZYRTEC) 10 mg tablet Take 10 mg by mouth once daily. No current facility-administered medications for this visit. ROS: HEENT decreased ability to hear PFSH: none VITAL SIGNS: There were no vitals filed for this visit. MENTAL STATUS EXAM: CONSTITUTIONAL: wnl ORIENTATION: Person, Place, Time and Situation MEMORY: Recent intact, Remote intact CONCENTRATION: Normal MOOD: euthymic AFFECT: Full and appropriate to topic SPEECH : Clear & distinct LANGUAGE : Normal ASSOCIATIONS: Intact THOUGHT PROCESS : Logical, Coherent, and Rational PROGRESSION : There was no evidence of disturbance in thought perception or progression. DIAGNOSIS: PRIMARY: MDD recurrent KATHIE TREATMENT PLAN: 1. Continue viibryd 30 mg po daily Follow Up: one month I spent a total of 30 minutes on the date of the service which included [id number] patient care, completing clinical documentation, and obtaining and/or reviewing separately obtained history. ADD ON PSYCHOTHERAPY CODE : No SIGNATURE: Feli Benz DO PATIENT NAME: Brice Gomez DATE: November 24, 2022 TIME: 10:39 AM PAGER: documented in this encounter [facility] 11-22-2022 Note HNO ID: [id number] Author: Kimber Jorge APRN.SUPPORT MERCHANDISER Service: ? Author Type: Nurse Practitioner Type: Progress Notes Filed: 11/22/2022 10:15 PM Note Text: This is a 42 year old female who presents today with: Patient presents with: Recheck: Follow up bilateral ears; L greater than R HISTORY OF PRESENT ILLNESS: Brice Gomez is a 42 year old female. Patient presents with: Recheck: Follow up bilateral ears; L greater than R 10/24 -- started w/ URI. Refers settled in the ears. Saw ENT -- had infection in both ears -- started clindamycin. Refers hearing decreased. Had tubes put in Monday before . Was disappointed, as thought would have substantial improvement. Continued with decreased hearing loss. Saw ENT again and told ears are full of pus. Then started more drops. Currently using cipro drops. She has follow-up scheduled with ENT on . She is very interested in having ears cultured, as concerned she could have a MRSA infection in her ears. She has been using nasonex. Reports tried decongestants. PAST MEDICAL HISTORY: PAST MEDICAL HISTORY Diagnosis Date Abnormal uterine bleeding 01/31/2013 Allergic rhinitis, cause unspecified Allergic rhinitis. Immunotherapy in past, [facility]. Depression Fibrosclerosis of breast H. 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 Neck pain, musculoskeletal FLORENTINO (obstructive sleep apnea) 08/2016 stopped using c-pap PMH - PAST MEDICAL HISTORY OF IUD PMH - PAST MEDICAL HISTORY OF EPISODES OF TACCHYCARDIA DURING Pneumonia due to COVID-19 virus Reactive airway disease Severe pre-eclampsia, condition or complication [facility] Stone, kidney x2 Vitamin D deficiency PAST SURGICAL HISTORY Procedure Laterality Date BREAST ASPIRATION fibroadenoma removal left breast COLONOSCOPY GEN ANES 10/23/2020 blas COVID19 03/18/2020 EGD 10/23/2020 EYE SURG ANT SGMT PROC UNLISTED Bilateral 01/05/2018 PRK (Photorefractive Keratectomy) HYSTEROSCOPY WBX WWO D AND C ANDOR POLYPECTOMY 05/2013 polyp IR BASKET STONE EXTRACTION 2009 LAPAROSCOPIC HEMICOLECTOMY Right LIG/TRNSXJ FLP TUBE ABDL/VAG APPR UNI/BI Tubal ligation PAST SURGICAL HISTORY OF x2 PAST SURGICAL HISTORY OF wisdom teeth PAST SURGICAL HISTORY OF 05/19/[address] Silveira S HERNIA PATCH,VENTRALEX,[id number] abdomen STEROTACTIC GUIDE BREAST BX 10/01/2012 u/s guidance of left breast VAGINAL HYSTERECTOMY right Ovary remains ALLERGIES Clindamycin, Bee Sting, Biaxin [Clarithromycin], Celexa [Citalopram], Entex [Phenylephrine-Guaifenesin], Flagyl [Metronidazole Hcl], Keflex [Cephalexin], Minocycline, Penicillins, and Pseudoephedrine MEDICATIONS Current Outpatient Medications Medication Sig clindamycin (CLEOCIN) 150 mg capsule promethazine (PHENERGAN) 6.25 mg/5 mL syrup Take 20 mL by mouth four times daily as needed. benzonatate (TESSALON PERLES) 100 mg capsule Take 1 capsule by mouth three times daily as needed for cough. esomeprazole (NEXIUM) 20 mg capsule Take 1 capsule by mouth daily before breakfast. 1/2 hr before meal. vilazodone (VIIBRYD) 20 mg tablet Take 1 tablet by mouth once daily. vilazodone (VIIBRYD) 10 mg tablet Take 1 tablet by mouth once daily. buPROPion XL (WELLBUTRIN XL) 300 mg 24 hr tablet Take 1 tablet by mouth once daily. clonazePAM (KLONOPIN) 0.5 mg tablet Take 1 tablet by mouth twice daily as needed for up to 30 days. vilazodone (VIIBRYD) 20 mg tablet Take 1 tablet by mouth once daily. vilazodone (VIIBRYD) 20 mg tablet Take 1 tablet by mouth once daily. vitamin D3-vitamin K2, MK4, 1,000-100 unit-mcg tab Take by mouth. hyoscyamine sublingual (LEVSIN SL) 0.125 mg For diarrhea/cramping, Take 1-2 tablets under tongue every 4hrs as needed. Max 12 tabs per day. esomeprazole (NEXIUM) 40 mg capsule Take 1 capsule by mouth twice daily before meals. 1/2 hr before meal. EPINEPHrine (EPIPEN) 0.3 mg/0.3 mL auto-injector Inject 0.3 mL subcutaneously as needed. Then seek medical attention immediately. MULTI-VITAMIN ORAL Take by mouth. albuterol HFA (PROAIR HFA) 90 mcg/actuation inhaler Inhale 2 Puffs as instructed every 4 hours as needed. cetirizine (ZYRTEC) 10 mg tablet Take 10 mg by mouth once daily. No current facility-administered medications for this visit. FAMILY HISTORY Problem Relation Age of Onset Allergies Mother Headache Mother migraine headaches other (mononucleosis) Mother other (Fibromyalgia) Mother Alcohol/Drug Father Hypertension Maternal Grandmother Osteoporosis Maternal Grandmother Cancer Maternal Grandfather colon, hx of tobacco/alcohol abuse Osteoporosis Paternal Grandmother other (rheumatoid arthritis) Paternal Grandmother Cancer Paternal Grandfather esophogeal cancer, hx of tobacco/alcohol abuse Diabetes Paternal Grandfather other (O (more content not included)... [facility] 11-22-2022 Instructions Kimber Jorge APRN.DAISY - 11/22/2022 3:23 PM EST Try the steroids. Let me know what happens w/ ENT appt. documented in this encounter [facility] 11-22-2022 History of Presen t illness Narrative This is a 42 year old female who presents today with: Patient presents with: Recheck: Follow up bilateral ears; L greater than R HISTORY OF PRESENT ILLNESS: Brice Gomez is a 42 year old female. Patient presents with: Recheck: Follow up bilateral ears; L greater than R 10/24 -- started w/ URI. Refers settled in the ears. Saw ENT -- had infection in both ears -- started clindamycin. Refers hearing decreased. Had tubes put in Monday before . Was disappointed, as thought would have substantial improvement. Continued with decreased hearing loss. Saw ENT again and told ears are full of pus. Then started more drops. Currently using cipro drops. She has follow-up scheduled with ENT on . She is very interested in having ears cultured, as concerned she could have a MRSA infection in her ears. She has been using nasonex. Reports tried decongestants. PAST MEDICAL HISTORY: PAST MEDICAL HISTORY Diagnosis Date Abnormal uterine bleeding 01/31/2013 Allergic rhinitis, cause unspecified Allergic rhinitis. Immunotherapy in past, [facility]. Depression Fibrosclerosis of breast H. 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 Neck pain, musculoskeletal FLORENTINO (obstructive sleep apnea) 08/2016 stopped using c-pap PMH - PAST MEDICAL HISTORY OF IUD PMH - PAST MEDICAL HISTORY OF EPISODES OF TACCHYCARDIA DURING Pneumonia due to COVID-19 virus Reactive airway disease Severe pre-eclampsia, condition or complication [place] Stone, kidney x2 Vitamin D deficiency PAST SURGICAL HISTORY Procedure Laterality Date BREAST ASPIRATION fibroadenoma removal left breast COLONOSCOPY GEN ANES 10/23/2020 [facility] COVID19 03/18/2020 EGD 10/23/2020 EYE SURG ANT SGMT PROC UNLISTED Bilateral 01/05/2018 PRK (Photorefractive Keratectomy) HYSTEROSCOPY WBX WWO D AND C ANDOR POLYPECTOMY 05/2013 polyp IR BASKET STONE EXTRACTION 2009 LAPAROSCOPIC HEMICOLECTOMY Right LIG/TRNSXJ FLP TUBE ABDL/VAG APPR UNI/BI Tubal ligation PAST SURGICAL HISTORY OF x2 PAST SURGICAL HISTORY OF wisdom teeth PAST SURGICAL HISTORY OF 05/19/2016 D&C [address] ablation Dr. Silveira S HERNIA PATCH,VENTRALEX,[id number] abdomen STEROTACTIC GUIDE BREAST BX 10/01/2012 u/s guidance of left breast VAGINAL HYSTERECTOMY right Ovary remains ALLERGIES Clindamycin, Bee Sting, Biaxin [Clarithromycin], Celexa [Citalopram], Entex [Phenylephrine-Guaifenesin], Flagyl [Metronidazole Hcl], Keflex [Cephalexin], Minocycline, Penicillins, and Pseudoephedrine MEDICATIONS Current Outpatient Medications Medication Sig clindamycin (CLEOCIN) 150 mg capsule promethazine (PHENERGAN) 6.25 mg/5 mL syrup Take 20 mL by mouth four times daily as needed. benzonatate (TESSALON PERLES) 100 mg capsule Take 1 capsule by mouth three times daily as needed for cough. esomeprazole (NEXIUM) 20 mg capsule Take 1 capsule by mouth daily before breakfast. 1/2 hr before meal. vilazodone (VIIBRYD) 20 mg tablet Take 1 tablet by mouth once daily. vilazodone (VIIBRYD) 10 mg tablet Take 1 tablet by mouth once daily. buPROPion XL (WELLBUTRIN XL) 300 mg 24 hr tablet Take 1 tablet by mouth once daily. clonazePAM (KLONOPIN) 0.5 mg tablet Take 1 tablet by mouth twice daily as needed for up to 30 days. vilazodone (VIIBRYD) 20 mg tablet Take 1 tablet by mouth once daily. vilazodone (VIIBRYD) 20 mg tablet Take 1 tablet by mouth once daily. vitamin D3-vitamin K2, MK4, 1,000-100 unit-mcg tab Take by mouth. hyoscyamine sublingual (LEVSIN SL) 0.125 mg For diarrhea/cramping, Take 1-2 tablets under tongue every 4hrs as needed. Max 12 tabs per day. esomeprazole (NEXIUM) 40 mg capsule Take 1 capsule by mouth twice daily before meals. 1/2 hr before meal. EPINEPHrine (EPIPEN) 0.3 mg/0.3 mL auto-injector Inject 0.3 mL subcutaneously as needed. Then seek medical attention immediately. MULTI-VITAMIN ORAL Take by mouth. albuterol HFA (PROAIR HFA) 90 mcg/actuation inhaler Inhale 2 Puffs as instructed every 4 hours as needed. cetirizine (ZYRTEC) 10 mg tablet Take 10 mg by mouth once daily. No current facility-administered medications for this visit. FAMILY HISTORY Problem Relation Age of Onset Allergies Mother Headache Mother migraine headaches other (mononucleosis) Mother other (Fibromyalgia) Mother Alcohol/Drug Father Hypertension Maternal Grandmother Osteoporosis Maternal Grandmother Cancer Maternal Grandfather colon, hx of tobacco/alcohol abuse Osteoporosis Paternal Grandmother other (rheumatoid arthritis) Paternal Grandmother Cancer Paternal Grandfather esophogeal cancer, hx of tobacco/alcohol abuse Diabetes Paternal Grandfather other (Other) Son Chronic cough. Lot's of pneumonias. other (Other) Son Lot's of pneumonias. Allergies Sister Allergies Brother other (Pineal tumor) Brother Also tremors. other (rheumatoid arhtritis) Paternal Aunt No Ocular Disease No Family History Cystic Fibrosis No Family History Asthma No Family History Social History Tobacco Use Smoking status: Never Smokeless tobacco: Never Tobacco comments: Step father smoked in childhood. Spouse ex-smoker last 13 years. Vaping Use Vaping Use: Never used Substance Use Topics Alcohol use: Yes Comment: Rarely Drug use: No EXAM: BP 128/90 Pulse 84 Resp 18 LMP 08/24/2020 (Exact Date) PHYSICAL EXAM: General Appearance: Well appearing, alert, in no acute distress, well-hydrated, well nourished.. Skin: Skin color, texture, turgor normal, no suspicious rashes or lesions. Head: Normocephalic, no masses, lesions, tenderness or abnormalities. Eyes: Anicteric sclera. Pupils are equally round and reactive to light. Extraocular movements are intact. . Ears: External ears normal, canals clear, Positive findings: R TM -- normal w/ tube, L TM: normal w/ tube and some debris in the inferior ear canal. Neck: Supple, no adenopathy Lungs: Lungs clear to auscultation. No wheezing, rhonchi, rales.. Heart: RRR without murmur, gallop, or rubs. No ectopy. ASSESSMENT/PLAN: 1. Decreased hearing of both ears - ICD9: 389.9, ICD10: H91.93 Continue drops per ENT. Start prednisone taper. Follow-up with ent later this week, as scheduled. Aware that if she is interested in seeing another ENT for another opinion, let provider know and we can place referral. - PREDNISONE 10 MG TABLET Discussed treatment plan and patient voices understanding. Patient's questions answered appropriately. Medications and potential side effects were discussed and patient voices understanding. Return to the office as scheduled or as needed for worsening/no improvement. Kimber Jorge APRN.DAISY documented in this encounter [facility] 10-29-2022 Note HNO ID: [id number] Author: Torie Arceo APRN.DAISY Service: ? Author Type: Nurse Practitioner Type: Progress Notes Filed: 10/29/2022 12:38 PM Note Text: Subjective Cough Associated symptoms include eye redness. Pertinent negatives include no chills and no wheezing. Brice Gomez is a 42 year old female who presents with cough x 6 days, and woke up with left eye red this morning. She was seen here on 10/27 for cough, was prescribed prednisone and tessalon perles. Had negative COVID/Flu test. Then she called her PCP on 10/28 because she was still coughing and Rx for promethazine cough syrup was called in to her pharmacy. Then she went to her ENT to have her tinnitis checked, which she has had since COVID in the past. He prescribed Clindamycin for bilateral ear infections. Now she is here today because she is still coughing and her eye is red. Review of Systems Constitutional: Negative for chills and fever. HENT: Positive for hearing loss and tinnitus. Eyes: Positive for redness. Negative for pain and discharge. Respiratory: Positive for cough. Negative for wheezing. Cardiovascular: Negative. BP 160/98 Pulse 102 Temp 36.8 ?C (98.3 ?F) Resp 16 Wt 70.3 kg (155 lb) LMP 08/24/2020 (Exact Date) SpO2 99% BMI 30.23 kg/m? PAST MEDICAL HISTORY Diagnosis Date Abnormal uterine bleeding 01/31/2013 Allergic rhinitis, cause unspecified Allergic rhinitis. Immunotherapy in past, [facility]. Depression Fibrosclerosis of breast H. 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 Neck pain, musculoskeletal FLORENTINO (obstructive sleep apnea) 08/2016 stopped using c-pap PMH - PAST MEDICAL HISTORY OF IUD PMH - PAST MEDICAL HISTORY OF EPISODES OF TACCHYCARDIA DURING Pneumonia due to COVID-19 virus Reactive airway disease Severe pre-eclampsia, condition or complication [place] [facility] Stone, kidney x2 Vitamin D deficiency PAST SURGICAL HISTORY Procedure Laterality Date BREAST ASPIRATION fibroadenoma removal left breast COLONOSCOPY GEN ANES 10/23/2020 [facility] COVID19 03/18/2020 EGD 10/23/2020 EYE SURG ANT SGMT PROC UNLISTED Bilateral 01/05/2018 PRK (Photorefractive Keratectomy) HYSTEROSCOPY WBX WWO D AND C ANDOR POLYPECTOMY 05/2013 polyp IR BASKET STONE EXTRACTION 2009 LAPAROSCOPIC HEMICOLECTOMY Right LIG/TRNSXJ FLP TUBE ABDL/VAG APPR UNI/BI Tubal ligation PAST SURGICAL HISTORY OF x2 PAST SURGICAL HISTORY OF wisdom teeth PAST SURGICAL HISTORY OF 05/19/[address] Silveira S HERNIA PATCH,VENTRALEX,[id number] abdomen STEROTACTIC GUIDE BREAST BX 10/01/2012 u/s guidance of left breast VAGINAL HYSTERECTOMY right Ovary remains ALLERGIES Clindamycin, Bee Sting, Biaxin [Clarithromycin], Celexa [Citalopram], Entex [Phenylephrine-Guaifenesin], Flagyl [Metronidazole Hcl], Keflex [Cephalexin], Minocycline, Penicillins, and Pseudoephedrine MEDICATIONS promethazine (PHENERGAN) 6.25 mg/5 mL syrup Take 20 mL by mouth four times daily as needed. predniSONE (DELTASONE) 10 mg tablet Take 4 tablets by mouth once daily for 5 days. esomeprazole (NEXIUM) 20 mg capsule Take 1 capsule by mouth daily before breakfast. 1/2 hr before meal. vilazodone (VIIBRYD) 20 mg tablet Take 1 tablet by mouth once daily. vilazodone (VIIBRYD) 10 mg tablet Take 1 tablet by mouth once daily. buPROPion XL (WELLBUTRIN XL) 300 mg 24 hr tablet Take 1 tablet by mouth once daily. clonazePAM (KLONOPIN) 0.5 mg tablet Take 1 tablet by mouth twice daily as needed for up to 30 days. vilazodone (VIIBRYD) 20 mg tablet Take 1 tablet by mouth once daily. esomeprazole (NEXIUM) 40 mg capsule Take 1 capsule by mouth twice daily before meals. 1/2 hr before meal. EPINEPHrine (EPIPEN) 0.3 mg/0.3 mL auto-injector Inject 0.3 mL subcutaneously as needed. Then seek medical attention immediately. MULTI-VITAMIN ORAL Take by mouth. albuterol HFA (PROAIR HFA) 90 mcg/actuation inhaler Inhale 2 Puffs as instructed every 4 hours as needed. cetirizine (ZYRTEC) 10 mg tablet Take 10 mg by mouth once daily. clindamycin (CLEOCIN) 150 mg capsule benzonatate (TESSALON PERLES) 100 mg capsule Take 1 capsule by mouth three times daily as needed for cough. (Patient not taking: Reported on 10/29/2022) vilazodone (VIIBRYD) 20 mg tablet Take 1 tablet by mouth once daily. vitamin D3-vitamin K2, MK4, 1,000-100 unit-mcg tab Take by mouth. hyoscyamine sublingual (LEVSIN SL) 0.125 mg For diarrhea/cramping, Take 1-2 tablets under tongue every 4hrs as needed. Max 12 tabs per day. FAMILY HISTORY Problem Relation Age of Onset Allergies Mother Headache Mother migraine headaches other (mononucleosis) Mother other (Fibromyalgia) Mother Alcohol/Drug Father Hypertension Maternal Grandmother Osteoporosis Maternal Grandmother Cancer Maternal Grandfather colon, hx of tobacco/ (more content not included)... [facility] 10-29-2022 Instructions Torie Arceo APRN.CNP - 10/29/2022 12:37 PM EST ASSESSMENT/PLAN: 1. OME (otitis media with effusion), bilateral - ICD9: 381.4, ICD10: H65.93 (primary diagnosis) - continue clindamycin as prescribed by ENT. 2. Viral URI with cough - ICD9: 465.9, ICD10: J06.9 - Discussed viral etiology and rationale for treatment. Not unusual to have a cough for one week following a viral URI. - Symptomatic treatment with prn analgesia - Supportive care with fluids and rest - continue promethazine syrup as prescribed by PCP. 3. Redness of eye, left - ICD9: 379.93, ICD10: H57.89 - likely due to ear infection. May use visine if redness is a bother. - Follow-up with your PCP in 3-5 days if symptoms have not improved or sooner if symptoms worsen - Discussed red flags and need for immediate medical evaluation if any occur. - Discussed supportive care treatment with fluids, rest and analgesia. - Discussed expected course of illness Torie Arceo APRN.DAISY COUGH: The body has a cough reflex which helps expel mucous secretions and irritants from the lung and airway passages. Cough spasms are periods of continuous coughing lasting several minutes. Most coughs is caused by virus infections which may last for up to 2-3 weeks. Coughing helps to protect the lung from pneumonia. A persistent cough lasting longer than 4-6 weeks requires medical evaluation by your primary care doctor. Treatment of cough includes measures to loosen the cough and thin the mucous. Warm liquids, cough drops, and nonprescription cough medicine may help reduce dry hacking cough. Use a humidifier if necessary as dry air can make coughs worse. Ultrasonic humidifiers are especially useful as they kill molds and many bacteria. Some cough medicines have antihistamines, decongestants, or alcohol in them; there is no proof that any of these help control cough. Prescription cough medicine or those with dextromethorphan (DM) should be reserved for dry coughs that prevent sleep or cause spasms or chest pain. Avoid any exposure to cigarette smoke as this will worsen the cough or make it last much longer. Call your doctor right away if you or your child have increased breathing difficulty, a high fever, a cough that lasts longer than 3 weeks, or other serious complaints. documented in this encounter [facility] 10-29-2022 History of Presen t illness Narrative Subjective Cough Associated symptoms include eye redness. Pertinent negatives include no chills and no wheezing. Brice Gomez is a 42 year old female who presents with cough x 6 days, and woke up with left eye red this morning. She was seen here on 10/27 for cough, was prescribed prednisone and tessalon perles. Had negative COVID/Flu test. Then she called her PCP on 10/28 because she was still coughing and Rx for promethazine cough syrup was called in to her pharmacy. Then she went to her ENT to have her tinnitis checked, which she has had since COVID in the past. He prescribed Clindamycin for bilateral ear infections. Now she is here today because she is still coughing and her eye is red. Review of Systems Constitutional: Negative for chills and fever. HENT: Positive for hearing loss and tinnitus. Eyes: Positive for redness. Negative for pain and discharge. Respiratory: Positive for cough. Negative for wheezing. Cardiovascular: Negative. BP 160/98 Pulse 102 Temp 36.8 C (98.3 F) Resp 16 Wt 70.3 kg (155 lb) LMP 08/24/2020 (Exact Date) SpO2 99% BMI 30.23 kg/m PAST MEDICAL HISTORY Diagnosis Date Abnormal uterine bleeding 01/31/2013 Allergic rhinitis, cause unspecified Allergic rhinitis. Immunotherapy in past, [facility]. Depression Fibrosclerosis of breast H. 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 Neck pain, musculoskeletal FLORENTINO (obstructive sleep apnea) 08/2016 stopped using c-pap PMH - PAST MEDICAL HISTORY OF IUD PMH - PAST MEDICAL HISTORY OF EPISODES OF TACCHYCARDIA DURING Pneumonia due to COVID-19 virus Reactive airway disease Severe pre-eclampsia, condition or complication [place] [facility] Stone, kidney x2 Vitamin D deficiency PAST SURGICAL HISTORY Procedure Laterality Date BREAST ASPIRATION fibroadenoma removal left breast COLONOSCOPY GEN ANES 10/23/2020 [facility] COVID19 03/18/2020 EGD 10/23/2020 EYE SURG ANT SGMT PROC UNLISTED Bilateral 01/05/2018 PRK (Photorefractive Keratectomy) HYSTEROSCOPY WBX WWO D AND C ANDOR POLYPECTOMY 05/2013 polyp IR BASKET STONE EXTRACTION 2009 LAPAROSCOPIC HEMICOLECTOMY Right LIG/TRNSXJ FLP TUBE ABDL/VAG APPR UNI/BI Tubal ligation PAST SURGICAL HISTORY OF x2 PAST SURGICAL HISTORY OF wisdom teeth PAST SURGICAL HISTORY OF 05/19/2016 D&C and ablation Dr. Silveira S HERNIA PATCH,VENTRALEX,[id number] abdomen STEROTACTIC GUIDE BREAST BX 10/01/2012 u/s guidance of left breast VAGINAL HYSTERECTOMY right Ovary remains ALLERGIES Clindamycin, Bee Sting, Biaxin [Clarithromycin], Celexa [Citalopram], Entex [Phenylephrine-Guaifenesin], Flagyl [Metronidazole Hcl], Keflex [Cephalexin], Minocycline, Penicillins, and Pseudoephedrine MEDICATIONS promethazine (PHENERGAN) 6.25 mg/5 mL syrup Take 20 mL by mouth four times daily as needed. predniSONE (DELTASONE) 10 mg tablet Take 4 tablets by mouth once daily for 5 days. esomeprazole (NEXIUM) 20 mg capsule Take 1 capsule by mouth daily before breakfast. 1/2 hr before meal. vilazodone (VIIBRYD) 20 mg tablet Take 1 tablet by mouth once daily. vilazodone (VIIBRYD) 10 mg tablet Take 1 tablet by mouth once daily. buPROPion XL (WELLBUTRIN XL) 300 mg 24 hr tablet Take 1 tablet by mouth once daily. clonazePAM (KLONOPIN) 0.5 mg tablet Take 1 tablet by mouth twice daily as needed for up to 30 days. vilazodone (VIIBRYD) 20 mg tablet Take 1 tablet by mouth once daily. esomeprazole (NEXIUM) 40 mg capsule Take 1 capsule by mouth twice daily before meals. 1/2 hr before meal. EPINEPHrine (EPIPEN) 0.3 mg/0.3 mL auto-injector Inject 0.3 mL subcutaneously as needed. Then seek medical attention immediately. MULTI-VITAMIN ORAL Take by mouth. albuterol HFA (PROAIR HFA) 90 mcg/actuation inhaler Inhale 2 Puffs as instructed every 4 hours as needed. cetirizine (ZYRTEC) 10 mg tablet Take 10 mg by mouth once daily. clindamycin (CLEOCIN) 150 mg capsule benzonatate (TESSALON PERLES) 100 mg capsule Take 1 capsule by mouth three times daily as needed for cough. (Patient not taking: Reported on 10/29/2022) vilazodone (VIIBRYD) 20 mg tablet Take 1 tablet by mouth once daily. vitamin D3-vitamin K2, MK4, 1,000-100 unit-mcg tab Take by mouth. hyoscyamine sublingual (LEVSIN SL) 0.125 mg For diarrhea/cramping, Take 1-2 tablets under tongue every 4hrs as needed. Max 12 tabs per day. FAMILY HISTORY Problem Relation Age of Onset Allergies Mother Headache Mother migraine headaches other (mononucleosis) Mother other (Fibromyalgia) Mother Alcohol/Drug Father Hypertension Maternal Grandmother Osteoporosis Maternal Grandmother Cancer Maternal Grandfather colon, hx of tobacco/alcohol abuse Osteoporosis Paternal Grandmother other (rheumatoid arthritis) Paternal Grandmother Cancer Paternal Grandfather esophogeal cancer, hx of tobacco/alcohol abuse Diabetes Paternal Grandfather other (Other) Son Chronic cough. Lot's of pneumonias. other (Other) Son Lot's of pneumonias. Allergies Sister Allergies Brother other (Pineal tumor) Brother Also tremors. other (rheumatoid arhtritis) Paternal Aunt No Ocular Disease No Family History Cystic Fibrosis No Family History Asthma No Family History Social History Tobacco Use Smoking status: Never Smokeless tobacco: Never Tobacco comments: Step father smoked in childhood. Spouse ex-smoker last 13 years. Vaping Use Vaping Use: Never used Substance Use Topics Alcohol use: Yes Comment: Rarely Drug use: No Objective Physical Exam Vitals and nursing note reviewed. Constitutional: Appearance: Normal appearance. HENT: Right Ear: Ear canal and external ear normal. A middle ear effusion is present. Tympanic membrane is injected and erythematous. Left Ear: Ear canal and external ear normal. A middle ear effusion is present. Tympanic membrane is injected and erythematous. Nose: Nose normal. Mouth/Throat: Pharynx: Uvula midline. No oropharyngeal exudate or posterior oropharyngeal erythema. Eyes: General: Lids are normal. Left eye: No discharge. Extraocular Movements: Extraocular movements intact. Conjunctiva/sclera: Right eye: Right conjunctiva is not injected. Left eye: Left conjunctiva is injected (slight). No chemosis, exudate or hemorrhage. Pupils: Pupils are equal, round, and reactive to light. Cardiovascular: Rate and Rhythm: Normal rate and regular rhythm. Heart sounds: Normal heart sounds. Pulmonary: Effort: Pulmonary effort is normal. No respiratory distress. Breath sounds: Normal breath sounds. No wheezing or rales. Musculoskeletal: Cervical back: Neck supple. Skin: General: Skin is warm and dry. Findings: No erythema or rash. Neurological: Mental Status: She is alert. ASSESSMENT/PLAN: 1. OME (otitis media with effusion), bilateral - ICD9: 381.4, ICD10: H65.93 (primary diagnosis) - continue clindamycin as prescribed by ENT. 2. Viral URI with cough - ICD9: 465.9, ICD10: J06.9 - Discussed viral etiology and rationale for treatment. Not unusual to have a cough for one week following a viral URI. - Symptomatic treatment with prn analgesia - Supportive care with fluids and rest - continue promethazine syrup as prescribed by PCP. 3. Redness of eye, left - ICD9: 379.93, ICD10: H57.89 - likely due to ear infection. May use visine if redness is a bother. - Follow-up with your PCP in 3-5 days if symptoms have not improved or sooner if symptoms worsen - Discussed red flags and need for immediate medical evaluation if any occur. - Discussed supportive care treatment with fluids, rest and analgesia. - Discussed expected course of illness Torie Arceo APRN.SUPPORT MERCHANDISER documented in this encounter [facility] 10-28-2022 Miscellaneous Notes The following approved medication requests have been transmitted electronically. Requested Prescriptions Signed Prescriptions Disp Refills promethazine (PHENERGAN) 6.25 mg/5 mL syrup 473 mL 1 Sig: Take 20 mL by mouth four times daily as needed. Authorizing Provider: TO MATTHEWS Ordering User: MELISSA HEARD APRN.CNP Pt. was seen in [facility] yesterday. Phenergan cough syrup would be ok. She'll need an appointment for this. Melissa Heard APRN.DAISY Pt called in and reports ENT put her on antibiotics for an ear infection. She is on steroids for cough. She reports she needs something to help her at night and called in earlier asking for cough syrup. Please call and advise. Patient calls and states that she [facility]. Patient states that they do not help at all. Patient asking if provider can prescribe her something with Codeine? Patient's pharmacy is [facility]. Patient does have an appointment with ENT today due to her ear problems (tinnitus) Please review and advise, Jamia Gil RN documented in this encounter [facility] 10-27-2022 Influenza virus A and B RNA and SARS-CoV-2 (COVID-19) N gene panel ALEXSANDRA+probe (Resp) COVID 19 RESULT: SARS-CoV-2 (Agent of COVID-19) Not Detected by RT-PCR or equivalent method. deanna [email or web address] ([email or web address] This test was developed and its performance characteristics determined by [facility]'s Dimitri Camila [facility] [place]. This test has been authorized by FDA under an Emergency Use Authorization (EUA). This test has been validated in accordance with the FDA's Guidance Document Policy for Diagnostics Testing in Laboratories Certified to Perform High Complexity Testing under CLIA prior to Emergency use Authorization for Coronavirus Disease 2019 during the Public Health Emergency issued on January 18, 2020. Test performed by [facility], [facility] [place], [address] [id number]. INFLUENZA A PCR: Negative for Influenza A by RT-PCR INFLUENZA B PCR: Negative for Influenza B by RT-PCR [facility] documented as of this encounter (statuses as of 03/04/2022) [facility]01-17-2014 History of Past illness Narrative* Problem Noted Date Resolved Date Atypical Nevus of female rm ast: R/O Dysplastic Intradermal Nevus mole (left mid chest at L medial breast) 12/06/2013 015 Melanocytic nevi of trunk 12/06/20132014 Melanocytic nevi of scalp and neck 12/06/2013 07/28/2015 Solar lentigo 12/06/2013 07/28/2015 Scars 12/06/2013 07/28/2015 Skin tag 12/06/2013 07/28/2015 Complex ovarian cyst 02/14/2013 05/28/2013 Abnormal uterine bleeding 01/31/20132013 Breast lump 09/14/2012 01/31/2013 Breast pain 09/14/2012 01/31/2013 Abnormal mammography 09/14/2012 05/30/2014 Atypical nevus of lower leg 04/11/201206/2015 Atypical nevus of thigh 04/11/2012 07/28/20 15 Melanocytic nevi of lower extremity or hip 04/1107/28/2015 Melanocytic nevi of face 04/11/2012 015 Melanocytic nevi of upper extremity or shoulder 04/11/2012 07/28/2015 Callus 04/11/2012 07/28/2015 Hyperpigmentation of skin 04/11/20122014 Xerosis cutis 04/11/2012 07/28/2015 Actinic skin damage 04/11/2012 07/28/2015 Solar lentiginosis 04/11/2012 07/28/2015 Other seborrheic keratosis 04/11/201207/28 Neoplasm of uncertain behavior of skin 9 07/28/2015 Other acne 09/29/2009 07/28/2015 Hidradenitis suppurativa 09/29/2009 015 Keloid scar 09/29/2009 07/28/2015 Hypertrophic scar 09/29/2009 07/28/2015 Pyoderma, unspecified 03/19/2009 12/06/2013 FOLLICULITIS///HAIR DISEASES NEC 09/10/2008 12/06/2013 Benign neoplasm of skin of trunk, except scrotum 02/19/2008 12/06/2013 Benign neoplasm of scalp and skin of neck 200712/06/2013 Benign neoplasm of skin of o ther and unspecified parts of face 02/19/2008 12/06/2013 Benign neoplasm of skin of upper limb, including shoulder 02/19/2008 12/06/2013 Scar condition and fibrosis of skin 02/19/2008 12/06/2013 Unspecified hypertrophic and atrophic condition of skin 02/19/2008 12/06/2013 Inflammatory disease of breast 07/10/2007 1 Supervision of other normal 08/24/2006 07/25/2008 Fibrosclerosis of breast 015 documented as of this encounter (statuses as of 03/07/2022) [facility]01[facility] History of Past illness Narrative* Problem Noted Date Resolved Date Atypical Nevus of female rm ast: R/O Dysplastic Intradermal Nevus mole (left mid chest at L medial breast) 12/06/2013 015 Melanocytic nevi of trunk 12/06/20132014 Melanocytic nevi of scalp and neck 12/06/2013 07/28/2015 Solar lentigo 12/06/2013 07/28/2015 Scars 12/06/2013 07/28/2015 Skin tag 12/06/2013 07/28/2015 Complex ovarian cyst 02/14/2013 05/28/2013 Abnormal uterine bleeding 01/31/20132013 Breast lump 09/14/2012 01/31/2013 Breast pain 09/14/2012 01/31/2013 Abnormal mammography 09/14/2012 05/30/2014 Atypical nevus of lower leg 04/11/201206/2015 Atypical nevus of thigh 04/11/2012 07/28/20 15 Melanocytic nevi of lower extremity or hip 04/1107/28/2015 Melanocytic nevi of face 04/11/2012 015 Melanocytic nevi of upper extremity or shoulder 04/11/2012 07/28/2015 Callus 04/11/2012 07/28/2015 Hyperpigmentation of skin 04/11/20122014 Xerosis cutis 04/11/2012 07/28/2015 Actinic skin damage 04/11/2012 07/28/2015 Solar lentiginosis 04/11/2012 07/28/2015 Other seborrheic keratosis 04/11/201207/28 Neoplasm of uncertain behavior of skin 9 07/28/2015 Other acne 09/29/2009 07/28/2015 Hidradenitis suppurativa 09/29/2009 015 Keloid scar 09/29/2009 07/28/2015 Hypertrophic scar 09/29/2009 07/28/2015 Pyoderma, unspecified 03/19/2009 12/06/2013 FOLLICULITIS///HAIR DISEASES NEC 09/10/2008 12/06/2013 Benign neoplasm of skin of trunk, except scrotum 02/19/2008 12/06/2013 Benign neoplasm of scalp and skin of neck 200712/06/2013 Benign neoplasm of skin of o ther and unspecified parts of face 02/19/2008 12/06/2013 Benign neoplasm of skin of upper limb, including shoulder 02/19/2008 12/06/2013 Scar condition and fibrosis of skin 02/19/2008 12/06/2013 Unspecified hypertrophic and atrophic condition of skin 02/19/2008 12/06/2013 Inflammatory disease of breast 07/10/2007 1 Supervision of other normal 08/24/2006 07/25/2008 Fibrosclerosis of breast 015 documented as of this encounter (statuses as of 05/10/2022) [facility] History of Past illness Narrative* Problem Noted Date Resolved Date Atypical Nevus of female rm ast: R/O Dysplastic Intradermal Nevus mole (left mid chest at L medial breast) 12/06/2013 015 Melanocytic nevi of trunk 12/06/20132014 Melanocytic nevi of scalp and neck 12/06/2013 07/28/2015 Solar lentigo 12/06/2013 07/28/2015 Scars 12/06/2013 07/28/2015 Skin tag 12/06/2013 07/28/2015 Complex ovarian cyst 02/14/2013 05/28/2013 Abnormal uterine bleeding 01/31/20132013 Breast lump 09/14/2012 01/31/2013 Breast pain 09/14/2012 01/31/2013 Abnormal mammography 09/14/2012 05/30/2014 Atypical nevus of lower leg 04/11/201206/2015 Atypical nevus of thigh 04/11/2012 07/28/20 15 Melanocytic nevi of lower extremity or hip 04/1107/28/2015 Melanocytic nevi of face 04/11/2012 015 Melanocytic nevi of upper extremity or shoulder 04/11/2012 07/28/2015 Callus 04/11/2012 07/28/2015 Hyperpigmentation of skin 04/11/20122014 Xerosis cutis 04/11/2012 07/28/2015 Actinic skin damage 04/11/2012 07/28/2015 Solar lentiginosis 04/11/2012 07/28/2015 Other seborrheic keratosis 04/11/201207/28 Neoplasm of uncertain behavior of skin 9 07/28/2015 Other acne 09/29/2009 07/28/2015 Hidradenitis suppurativa 09/29/2009 015 Keloid scar 09/29/2009 07/28/2015 Hypertrophic scar 09/29/2009 07/28/2015 Pyoderma, unspecified 03/19/2009 12/06/2013 FOLLICULITIS///HAIR DISEASES NEC 09/10/2008 12/06/2013 Benign neoplasm of skin of trunk, except scrotum 02/19/2008 12/06/2013 Benign neoplasm of scalp and skin of neck 200712/06/2013 Benign neoplasm of skin of o ther and unspecified parts of face 02/19/2008 12/06/2013 Benign neoplasm of skin of upper limb, including shoulder 02/19/2008 12/06/2013 Scar condition and fibrosis of skin 02/19/2008 12/06/2013 Unspecified hypertrophic and atrophic condition of skin 02/19/2008 12/06/2013 Inflammatory disease of breast 07/10/2007 1 Supervision of other normal 08/24/2006 07/25/2008 Fibrosclerosis of breast 015 documented as of this encounter (statuses as of 05/20/2022) [facility]01[facility] History of Past illness Narrative* Problem Noted Date Resolved Date Atypical Nevus of female rm ast: R/O Dysplastic Intradermal Nevus mole (left mid chest at L medial breast) 12/06/2013 015 Melanocytic nevi of trunk 12/06/20132014 Melanocytic nevi of scalp and neck 12/06/2013 07/28/2015 Solar lentigo 12/06/2013 07/28/2015 Scars 12/06/2013 07/28/2015 Skin tag 12/06/2013 07/28/2015 Complex ovarian cyst 02/14/2013 05/28/2013 Abnormal uterine bleeding 01/31/20132013 Breast lump 09/14/2012 01/31/2013 Breast pain 09/14/2012 01/31/2013 Abnormal mammography 09/14/2012 05/30/2014 Atypical nevus of lower leg 04/11/2012 09/06/2015 Atypical nevus of thigh 04/11/2012 07/28/20 15 Melanocytic nevi of lower extremity or hip 04/1107/28/2015 Melanocytic nevi of face 04/11/2012 015 Melanocytic nevi of upper extremity or shoulder 04/11/2012 07/28/2015 Callus 04/11/2012 07/28/2015 Hyperpigmentation of skin 04/11/20122014 Xerosis cutis 04/11/2012 07/28/2015 Actinic skin damage 04/11/2012 07/28/2015 Solar lentiginosis 04/11/2012 07/28/2015 Other seborrheic keratosis 04/11/201207/28 Neoplasm of uncertain behavior of skin 9 07/28/2015 Other acne 09/29/2009 07/28/2015 Hidradenitis suppurativa 09/29/2009 015 Keloid scar 09/29/2009 07/28/2015 Hypertrophic scar 09/29/2009 07/28/2015 Pyoderma, unspecified 03/19/2009 12/06/2013 FOLLICULITIS///HAIR DISEASES NEC 09/10/2008 12/06/2013 Benign neoplasm of skin of trunk, except scrotum 02/19/2008 12/06/2013 Benign neoplasm of scalp and skin of neck 200712/06/2013 Benign neoplasm of skin of o ther and unspecified parts of face 02/19/2008 12/06/2013 Benign neoplasm of skin of upper limb, including shoulder 02/19/2008 12/06/2013 Scar condition and fibrosis of skin 02/19/2008 12/06/2013 Unspecified hypertrophic and atrophic condition of skin 02/19/2008 12/06/2013 Inflammatory disease of breast 07/10/2007 1 Supervision of other normal 08/24/2006 07/25/2008 Fibrosclerosis of breast 015 documented as of this encounter (statuses as of 05/25/2022) [facility]01[facility] History of Past illness Narrative* Problem Noted Date Resolved Date Atypical Nevus of female rm ast: R/O Dysplastic Intradermal Nevus mole (left mid chest at L medial breast) 12/06/2013 015 Melanocytic nevi of trunk 12/06/20132014 Melanocytic nevi of scalp and neck 12/06/2013 07/28/2015 Solar lentigo 12/06/2013 07/28/2015 Scars 12/06/2013 07/28/2015 Skin tag 12/06/2013 07/28/2015 Complex ovarian cyst 02/14/2013 05/28/2013 Abnormal uterine bleeding 01/31/20132013 Breast lump 09/14/2012 01/31/2013 Breast pain 09/14/2012 01/31/2013 Abnormal mammography 09/14/2012 05/30/2014 Atypical nevus of lower leg 04/11/2012 09/0 06/2015 Atypical nevus of thigh 04/11/2012 07/28/20 15 Melanocytic nevi of lower extremity or hip 04/1107/28/2015 Melanocytic nevi of face 04/11/2012 015 Melanocytic nevi of upper extremity or shoulder 04/11/2012 07/28/2015 Callus 04/11/2012 07/28/2015 Hyperpigmentation of skin 04/11/20122014 Xerosis cutis 04/11/2012 07/28/2015 Actinic skin damage 04/11/2012 07/28/2015 Solar lentiginosis 04/11/2012 07/28/2015 Other seborrheic keratosis 04/11/201207/28 Neoplasm of uncertain behavior of skin 9 07/28/2015 Other acne 09/29/2009 07/28/2015 Hidradenitis suppurativa 09/29/2009 015 Keloid scar 09/29/2009 07/28/2015 Hypertrophic scar 09/29/2009 07/28/2015 Pyoderma, unspecified 03/19/2009 12/06/2013 FOLLICULITIS///HAIR DISEASES NEC 09/10/2008 12/06/2013 Benign neoplasm of skin of trunk, except scrotum 02/19/2008 12/06/2013 Benign neoplasm of scalp and skin of neck 200712/06/2013 Benign neoplasm of skin of o ther and unspecified parts of face 02/19/2008 12/06/2013 Benign neoplasm of skin of upper limb, including shoulder 02/19/2008 12/06/2013 Scar condition and fibrosis of skin 02/19/2008 12/06/2013 Unspecified hypertrophic and atrophic condition of skin 02/19/2008 12/06/2013 Inflammatory disease of breast 07/10/2007 1 Supervision of other normal 08/24/2006 07/25/2008 Fibrosclerosis of breast 015 documented as of this encounter (statuses as of 07/11/2022) [facility] History of Past illness Narrative* Problem Noted Date Resolved Date Atypical Nevus of female rm ast: R/O Dysplastic Intradermal Nevus mole (left mid chest at L medial breast) 12/06/2013 015 Melanocytic nevi of trunk 12/06/20132014 Melanocytic nevi of scalp and neck 12/06/2013 07/28/2015 Solar lentigo 12/06/2013 07/28/2015 Scars 12/06/2013 07/28/2015 Skin tag 12/06/2013 07/28/2015 Complex ovarian cyst 02/14/2013 05/28/2013 Abnormal uterine bleeding 01/31/20132013 Breast lump 09/14/2012 01/31/2013 Breast pain 09/14/2012 01/31/2013 Abnormal mammography 09/14/2012 05/30/2014 Atypical nevus of lower leg 04/11/201206/2015 Atypical nevus of thigh 04/11/2012 07/28/20 15 Melanocytic nevi of lower extremity or hip 04/1107/28/2015 Melanocytic nevi of face 04/11/2012 015 Melanocytic nevi of upper extremity or shoulder 04/11/2012 07/28/2015 Callus 04/11/2012 07/28/2015 Hyperpigmentation of skin 04/11/20122014 Xerosis cutis 04/11/2012 07/28/2015 Actinic skin damage 04/11/2012 07/28/2015 Solar lentiginosis 04/11/2012 07/28/2015 Other seborrheic keratosis 04/11/201207/28 Neoplasm of uncertain behavior of skin 07/28/2015 Other acne 09/29/2009 07/28/2015 Hidradenitis suppurativa 09/29/2009 015 Keloid scar 09/29/2009 07/28/2015 Hypertrophic scar 09/29/2009 07/28/2015 Pyoderma, unspecified 03/19/2009 12/06/2013 FOLLICULITIS///HAIR DISEASES NEC 09/10/2008 12/06/2013 Benign neoplasm of skin of trunk, except scrotum 02/19/2008 12/06/2013 Benign neoplasm of scalp and skin of neck 200712/06/2013 Benign neoplasm of skin of o ther and unspecified parts of face 02/19/2008 12/06/2013 Benign neoplasm of skin of upper limb, including shoulder 02/19/2008 12/06/2013 Scar condition and fibrosis of skin 02/19/2008 12/06/2013 Unspecified hypertrophic and atrophic condition of skin 02/19/2008 12/06/2013 Inflammatory disease of breast 07/10/2007 1 Supervision of other normal 08/24/2006 07/25/2008 Fibrosclerosis of breast 015 documented as of this encounter (statuses as of 07/21/2022) [facility] History of Past illness Narrative* Problem Noted Date Resolved Date Atypical Nevus of female rm ast: R/O Dysplastic Intradermal Nevus mole (left mid chest at L medial breast) 12/06/2013 015 Melanocytic nevi of trunk 12/06/20132014 Melanocytic nevi of scalp and neck 12/06/2013 07/28/2015 Solar lentigo 12/06/2013 07/28/2015 Scars 12/06/2013 07/28/2015 Skin tag 12/06/2013 07/28/2015 Complex ovarian cyst 02/14/2013 05/28/2013 Abnormal uterine bleeding 01/31/20132013 Breast lump 09/14/2012 01/31/2013 Breast pain 09/14/2012 01/31/2013 Abnormal mammography 09/14/2012 05/30/2014 Atypical nevus of lower leg 04/11/201206/2015 Atypical nevus of thigh 04/11/2012 07/28/20 15 Melanocytic nevi of lower extremity or hip 04/1107/28/2015 Melanocytic nevi of face 04/11/2012 015 Melanocytic nevi of upper extremity or shoulder 04/11/2012 07/28/2015 Callus 04/11/2012 07/28/2015 Hyperpigmentation of skin 04/11/20122014 Xerosis cutis 04/11/2012 07/28/2015 Actinic skin damage 04/11/2012 07/28/2015 Solar lentiginosis 04/11/2012 07/28/2015 Other seborrheic keratosis 04/11/201207/28 Neoplasm of uncertain behavior of skin 9 07/28/2015 Other acne 09/29/2009 07/28/2015 Hidradenitis suppurativa 09/29/2009 015 Keloid scar 09/29/2009 07/28/2015 Hypertrophic scar 09/29/2009 07/28/2015 Pyoderma, unspecified 03/19/2009 12/06/2013 FOLLICULITIS///HAIR DISEASES NEC 09/10/2008 12/06/2013 Benign neoplasm of skin of trunk, except scrotum 02/19/2008 12/06/2013 Benign neoplasm of scalp and skin of neck 200712/06/2013 Benign neoplasm of skin of o ther and unspecified parts of face 02/19/2008 12/06/2013 Benign neoplasm of skin of upper limb, including shoulder 02/19/2008 12/06/2013 Scar condition and fibrosis of skin 02/19/2008 12/06/2013 Unspecified hypertrophic and atrophic condition of skin 02/19/2008 12/06/2013 Inflammatory disease of breast 07/10/2007 1 Supervision of other normal 08/24/2006 07/25/2008 Fibrosclerosis of breast 015 documented as of this encounter (statuses as of 08/11/2022) [facility] History of Past illness Narrative* Problem Noted Date Resolved Date Atypical Nevus of female rm ast: R/O Dysplastic Intradermal Nevus mole (left mid chest at L medial breast) 12/06/2013 015 Melanocytic nevi of trunk 12/06/20132014 Melanocytic nevi of scalp and neck 12/06/2013 07/28/2015 Solar lentigo 12/06/2013 07/28/2015 Scars 12/06/2013 07/28/2015 Skin tag 12/06/2013 07/28/2015 Complex ovarian cyst 02/14/2013 05/28/2013 Abnormal uterine bleeding 01/31/20132013 Breast lump 09/14/2012 01/31/2013 Breast pain 09/14/2012 01/31/2013 Abnormal mammography 09/14/2012 05/30/2014 Atypical nevus of lower leg 04/11/201206/2015 Atypical nevus of thigh 04/11/2012 07/28/20 15 Melanocytic nevi of lower extremity or hip 04/1107/28/2015 Melanocytic nevi of face 04/11/2012 015 Melanocytic nevi of upper extremity or shoulder 04/11/2012 07/28/2015 Callus 04/11/2012 07/28/2015 Hyperpigmentation of skin 04/11/20122014 Xerosis cutis 04/11/2012 07/28/2015 Actinic skin damage 04/11/2012 07/28/2015 Solar lentiginosis 04/11/2012 07/28/2015 Other seborrheic keratosis 04/11/201207/28 Neoplasm of uncertain behavior of skin 9 07/28/2015 Other acne 09/29/2009 07/28/2015 Hidradenitis suppurativa 09/29/2009 015 Keloid scar 09/29/2009 07/28/2015 Hypertrophic scar 09/29/2009 07/28/2015 Pyoderma, unspecified 03/19/2009 12/06/2013 FOLLICULITIS///HAIR DISEASES NEC 09/10/2008 12/06/2013 Benign neoplasm of skin of trunk, except scrotum 02/19/2008 12/06/2013 Benign neoplasm of scalp and skin of neck 200712/06/2013 Benign neoplasm of skin of o ther and unspecified parts of face 02/19/2008 12/06/2013 Benign neoplasm of skin of upper limb, including shoulder 02/19/2008 12/06/2013 Scar condition and fibrosis of skin 02/19/2008 12/06/2013 Unspecified hypertrophic and atrophic condition of skin 02/19/2008 12/06/2013 Inflammatory disease of breast 07/10/2007 1 Supervision of other normal 08/24/2006 07/25/2008 Fibrosclerosis of breast 015 documented as of this encounter (statuses as of 08/25/2022) [facility] History of Past illness Narrative* Problem Noted Date Resolved Date Atypical Nevus of female rm ast: R/O Dysplastic Intradermal Nevus mole (left mid chest at L medial breast) 12/06/2013 015 Melanocytic nevi of trunk 12/06/20132014 Melanocytic nevi of scalp and neck 12/06/2013 07/28/2015 Solar lentigo 12/06/2013 07/28/2015 Scars 12/06/2013 07/28/2015 Skin tag 12/06/2013 07/28/2015 Complex ovarian cyst 02/14/2013 05/28/2013 Abnormal uterine bleeding 01/31/20132013 Breast lump 09/14/2012 01/31/2013 Breast pain 09/14/2012 01/31/2013 Abnormal mammography 09/14/2012 05/30/2014 Atypical nevus of lower leg 04/11/201206/2015 Atypical nevus of thigh 04/11/2012 07/28/20 15 Melanocytic nevi of lower extremity or hip 04/1107/28/2015 Melanocytic nevi of face 04/11/2012 015 Melanocytic nevi of upper extremity or shoulder 04/11/2012 07/28/2015 Callus 04/11/2012 07/28/2015 Hyperpigmentation of skin 04/11/20122014 Xerosis cutis 04/11/2012 07/28/2015 Actinic skin damage 04/11/2012 07/28/2015 Solar lentiginosis 04/11/2012 07/28/2015 Other seborrheic keratosis 04/11/201207/28 Neoplasm of uncertain behavior of skin 9 07/28/2015 Other acne 09/29/2009 07/28/2015 Hidradenitis suppurativa 09/29/2009 015 Keloid scar 09/29/2009 07/28/2015 Hypertrophic scar 09/29/2009 07/28/2015 Pyoderma, unspecified 03/19/2009 12/06/2013 FOLLICULITIS///HAIR DISEASES NEC 09/10/2008 12/06/2013 Benign neoplasm of skin of trunk, except scrotum 02/19/2008 12/06/2013 Benign neoplasm of scalp and skin of neck 200712/06/2013 Benign neoplasm of skin of o ther and unspecified parts of face 02/19/2008 12/06/2013 Benign neoplasm of skin of upper limb, including shoulder 02/19/2008 12/06/2013 Scar condition and fibrosis of skin 02/19/2008 12/06/2013 Unspecified hypertrophic and atrophic condition of skin 02/19/2008 12/06/2013 Inflammatory disease of breast 07/10/2007 1 Supervision of other normal 08/24/2006 07/25/2008 Fibrosclerosis of breast 015 documented as of this encounter (statuses as of 09/07/2022) [facility] History of Past illness Narrative* Problem Noted Date Resolved Date Atypical Nevus of female rm ast: R/O Dysplastic Intradermal Nevus mole (left mid chest at L medial breast) 12/06/2013 015 Melanocytic nevi of trunk 12/06/20132014 Melanocytic nevi of scalp and neck 12/06/2013 07/28/2015 Solar lentigo 12/06/2013 07/28/2015 Scars 12/06/2013 07/28/2015 Skin tag 12/06/2013 07/28/2015 Complex ovarian cyst 02/14/2013 05/28/2013 Abnormal uterine bleeding 01/31/20132013 Breast lump 09/14/2012 01/31/2013 Breast pain 09/14/2012 01/31/2013 Abnormal mammography 09/14/2012 05/30/2014 Atypical nevus of lower leg 04/11/201206/2015 Atypical nevus of thigh 04/11/2012 07/28/20 15 Melanocytic nevi of lower extremity or hip 04/1107/28/2015 Melanocytic nevi of face 04/11/2012 015 Melanocytic nevi of upper extremity or shoulder 04/11/2012 07/28/2015 Callus 04/11/2012 07/28/2015 Hyperpigmentation of skin 04/11/20122014 Xerosis cutis 04/11/2012 07/28/2015 Actinic skin damage 04/11/2012 07/28/2015 Solar lentiginosis 04/11/2012 07/28/2015 Other seborrheic keratosis 04/11/201207/28 Neoplasm of uncertain behavior of skin 9 07/28/2015 Other acne 09/29/2009 07/28/2015 Hidradenitis suppurativa 09/29/2009 015 Keloid scar 09/29/2009 07/28/2015 Hypertrophic scar 09/29/2009 07/28/2015 Pyoderma, unspecified 03/19/2009 12/06/2013 FOLLICULITIS///HAIR DISEASES NEC 09/10/2008 12/06/2013 Benign neoplasm of skin of trunk, except scrotum 02/19/2008 12/06/2013 Benign neoplasm of scalp and skin of neck 200712/06/2013 Benign neoplasm of skin of o ther and unspecified parts of face 02/19/2008 12/06/2013 Benign neoplasm of skin of upper limb, including shoulder 02/19/2008 12/06/2013 Scar condition and fibrosis of skin 02/19/2008 12/06/2013 Unspecified hypertrophic and atrophic condition of skin 02/19/2008 12/06/2013 Inflammatory disease of breast 07/10/2007 1 Supervision of other normal 08/24/2006 07/25/2008 Fibrosclerosis of breast 015 documented as of this encounter (statuses as of 09/08/2022) [facility] History of Past illness Narrative* Problem Noted Date Resolved Date Atypical Nevus of female rm ast: R/O Dysplastic Intradermal Nevus mole (left mid chest at L medial breast) 12/06/2013 015 Melanocytic nevi of trunk 12/06/20132014 Melanocytic nevi of scalp and neck 12/06/2013 07/28/2015 Solar lentigo 12/06/2013 07/28/2015 Scars 12/06/2013 07/28/2015 Skin tag 12/06/2013 07/28/2015 Complex ovarian cyst 02/14/2013 05/28/2013 Abnormal uterine bleeding 01/31/20132013 Breast lump 09/14/2012 01/31/2013 Breast pain 09/14/2012 01/31/2013 Abnormal mammography 09/14/2012 05/30/2014 Atypical nevus of lower leg 04/11/2012 09/06/2015 Atypical nevus of thigh 04/11/2012 07/28/20 15 Melanocytic nevi of lower extremity or hip 04/1107/28/2015 Melanocytic nevi of face 04/11/2012 015 Melanocytic nevi of upper extremity or shoulder 04/11/2012 07/28/2015 Callus 04/11/2012 07/28/2015 Hyperpigmentation of skin 04/11/20122014 Xerosis cutis 04/11/2012 07/28/2015 Actinic skin damage 04/11/2012 07/28/2015 Solar lentiginosis 04/11/2012 07/28/2015 Other seborrheic keratosis 04/11/201207/28 Neoplasm of uncertain behavior of skin 9 07/28/2015 Other acne 09/29/2009 07/28/2015 Hidradenitis suppurativa 09/29/2009 015 Keloid scar 09/29/2009 07/28/2015 Hypertrophic scar 09/29/2009 07/28/2015 Pyoderma, unspecified 03/19/2009 12/06/2013 FOLLICULITIS///HAIR DISEASES NEC 09/10/2008 12/06/2013 Benign neoplasm of skin of trunk, except scrotum 02/19/2008 12/06/2013 Benign neoplasm of scalp and skin of neck 200712/06/2013 Benign neoplasm of skin of o ther and unspecified parts of face 02/19/2008 12/06/2013 Benign neoplasm of skin of upper limb, including shoulder 02/19/2008 12/06/2013 Scar condition and fibrosis of skin 02/19/2008 12/06/2013 Unspecified hypertrophic and atrophic condition of skin 02/19/2008 12/06/2013 Inflammatory disease of breast 07/10/2007 1 Supervision of other normal 08/24/2006 07/25/2008 Fibrosclerosis of breast 015 documented as of this encounter (statuses as of 09/09/2022) [facility] History of Past illness Narrative* Problem Noted Date Resolved Date Atypical Nevus of female rm ast: R/O Dysplastic Intradermal Nevus mole (left mid chest at L medial breast) 12/06/2013 015 Melanocytic nevi of trunk 12/06/20132014 Melanocytic nevi of scalp and neck 12/06/2013 07/28/2015 Solar lentigo 12/06/2013 07/28/2015 Scars 12/06/2013 07/28/2015 Skin tag 12/06/2013 07/28/2015 Complex ovarian cyst 02/14/2013 05/28/2013 Abnormal uterine bleeding 01/31/20132013 Breast lump 09/14/2012 01/31/2013 Breast pain 09/14/2012 01/31/2013 Abnormal mammography 09/14/2012 05/30/2014 Atypical nevus of lower leg 04/11/2012 09/06/2015 Atypical nevus of thigh 04/11/2012 07/28/20 15 Melanocytic nevi of lower extremity or hip 04/1107/28/2015 Melanocytic nevi of face 04/11/2012 015 Melanocytic nevi of upper extremity or shoulder 04/11/2012 07/28/2015 Callus 04/11/2012 07/28/2015 Hyperpigmentation of skin 04/11/20122014 Xerosis cutis 04/11/2012 07/28/2015 Actinic skin damage 04/11/2012 07/28/2015 Solar lentiginosis 04/11/2012 07/28/2015 Other seborrheic keratosis 04/11/201207/28 Neoplasm of uncertain behavior of skin 9 07/28/2015 Other acne 09/29/2009 07/28/2015 Hidradenitis suppurativa 09/29/2009 015 Keloid scar 09/29/2009 07/28/2015 Hypertrophic scar 09/29/2009 07/28/2015 Pyoderma, unspecified 03/19/2009 12/06/2013 FOLLICULITIS///HAIR DISEASES NEC 09/10/2008 12/06/2013 Benign neoplasm of skin of trunk, except scrotum 02/19/2008 12/06/2013 Benign neoplasm of scalp and skin of neck 200712/06/2013 Benign neoplasm of skin of o ther and unspecified parts of face 02/19/2008 12/06/2013 Benign neoplasm of skin of upper limb, including shoulder 02/19/2008 12/06/2013 Scar condition and fibrosis of skin 02/19/2008 12/06/2013 Unspecified hypertrophic and atrophic condition of skin 02/19/2008 12/06/2013 Inflammatory disease of breast 07/10/2007 1 Supervision of other normal 08/24/2006 07/25/2008 Fibrosclerosis of breast 015 documented as of this encounter (statuses as of 09/14/2022) [facility]01-17-2014 History of Past illness Narrative* Problem Noted Date Resolved Date Atypical Nevus of female rm ast: R/O Dysplastic Intradermal Nevus mole (left mid chest at L medial breast) 12/06/2013 015 Melanocytic nevi of trunk 12/06/20132014 Melanocytic nevi of scalp and neck 12/06/2013 07/28/2015 Solar lentigo 12/06/2013 07/28/2015 Scars 12/06/2013 07/28/2015 Skin tag 12/06/2013 07/28/2015 Complex ovarian cyst 02/14/2013 05/28/2013 Abnormal uterine bleeding 01/31/20132013 Breast lump 09/14/2012 01/31/2013 Breast pain 09/14/2012 01/31/2013 Abnormal mammography 09/14/2012 05/30/2014 Atypical nevus of lower leg 04/11/201206/2015 Atypical nevus of thigh 04/11/2012 07/28/20 15 Melanocytic nevi of lower extremity or hip 04/1107/28/2015 Melanocytic nevi of face 04/11/2012 015 Melanocytic nevi of upper extremity or shoulder 04/11/2012 07/28/2015 Callus 04/11/2012 07/28/2015 Hyperpigmentation of skin 04/11/20122014 Xerosis cutis 04/11/2012 07/28/2015 Actinic skin damage 04/11/2012 07/28/2015 Solar lentiginosis 04/11/2012 07/28/2015 Other seborrheic keratosis 04/11/201207/28 Neoplasm of uncertain behavior of skin 07/28/2015 Other acne 09/29/2009 07/28/2015 Hidradenitis suppurativa 09/29/2009 015 Keloid scar 09/29/2009 07/28/2015 Hypertrophic scar 09/29/2009 07/28/2015 Pyoderma, unspecified 03/19/2009 12/06/2013 FOLLICULITIS///HAIR DISEASES NEC 09/10/2008 12/06/2013 Benign neoplasm of skin of trunk, except scrotum 02/19/2008 12/06/2013 Benign neoplasm of scalp and skin of neck 200712/06/2013 Benign neoplasm of skin of o ther and unspecified parts of face 02/19/2008 12/06/2013 Benign neoplasm of skin of upper limb, including shoulder 02/19/2008 12/06/2013 Scar condition and fibrosis of skin 02/19/2008 12/06/2013 Unspecified hypertrophic and atrophic condition of skin 02/19/2008 12/06/2013 Inflammatory disease of breast 07/10/2007 1 Supervision of other normal 08/24/2006 07/25/2008 Fibrosclerosis of breast 015 documented as of this encounter (statuses as of 09/15/2022) [facility]01[facility] History of Past illness Narrative* Problem Noted Date Resolved Date Atypical Nevus of female rm ast: R/O Dysplastic Intradermal Nevus mole (left mid chest at L medial breast) 12/06/2013 015 Melanocytic nevi of trunk 12/06/20132014 Melanocytic nevi of scalp and neck 12/06/2013 07/28/2015 Solar lentigo 12/06/2013 07/28/2015 Scars 12/06/2013 07/28/2015 Skin tag 12/06/2013 07/28/2015 Complex ovarian cyst 02/14/2013 05/28/2013 Abnormal uterine bleeding 01/31/20132013 Breast lump 09/14/2012 01/31/2013 Breast pain 09/14/2012 01/31/2013 Abnormal mammography 09/14/2012 05/30/2014 Atypical nevus of lower leg 04/11/201206/2015 Atypical nevus of thigh 04/11/2012 07/28/20 15 Melanocytic nevi of lower extremity or hip 04/1107/28/2015 Melanocytic nevi of face 04/11/2012 015 Melanocytic nevi of upper extremity or shoulder 04/11/2012 07/28/2015 Callus 04/11/2012 07/28/2015 Hyperpigmentation of skin 04/11/20122014 Xerosis cutis 04/11/2012 07/28/2015 Actinic skin damage 04/11/2012 07/28/2015 Solar lentiginosis 04/11/2012 07/28/2015 Other seborrheic keratosis 04/11/201207/28 Neoplasm of uncertain behavior of skin 9 07/28/2015 Other acne 09/29/2009 07/28/2015 Hidradenitis suppurativa 09/29/2009 015 Keloid scar 09/29/2009 07/28/2015 Hypertrophic scar 09/29/2009 07/28/2015 Pyoderma, unspecified 03/19/2009 12/06/2013 FOLLICULITIS///HAIR DISEASES NEC 09/10/2008 12/06/2013 Benign neoplasm of skin of trunk, except scrotum 02/19/2008 12/06/2013 Benign neoplasm of scalp and skin of neck 200712/06/2013 Benign neoplasm of skin of o ther and unspecified parts of face 02/19/2008 12/06/2013 Benign neoplasm of skin of upper limb, including shoulder 02/19/2008 12/06/2013 Scar condition and fibrosis of skin 02/19/2008 12/06/2013 Unspecified hypertrophic and atrophic condition of skin 02/19/2008 12/06/2013 Inflammatory disease of breast 07/10/2007 1 Supervision of other normal 08/24/2006 07/25/2008 Fibrosclerosis of breast 015 documented as of this encounter (statuses as of 09/16/2022) [facility]01[facility] History of Past illness Narrative* Problem Noted Date Resolved Date Atypical Nevus of female rm ast: R/O Dysplastic Intradermal Nevus mole (left mid chest at L medial breast) 12/06/2013 015 Melanocytic nevi of trunk 12/06/20132014 Melanocytic nevi of scalp and neck 12/06/2013 07/28/2015 Solar lentigo 12/06/2013 07/28/2015 Scars 12/06/2013 07/28/2015 Skin tag 12/06/2013 07/28/2015 Complex ovarian cyst 02/14/2013 05/28/2013 Abnormal uterine bleeding 01/31/20132013 Breast lump 09/14/2012 01/31/2013 Breast pain 09/14/2012 01/31/2013 Abnormal mammography 09/14/2012 05/30/2014 Atypical nevus of lower leg 04/11/201206/2015 Atypical nevus of thigh 04/11/2012 07/28/20 15 Melanocytic nevi of lower extremity or hip 04/1107/28/2015 Melanocytic nevi of face 04/11/2012 015 Melanocytic nevi of upper extremity or shoulder 04/11/2012 07/28/2015 Callus 04/11/2012 07/28/2015 Hyperpigmentation of skin 04/11/20122014 Xerosis cutis 04/11/2012 07/28/2015 Actinic skin damage 04/11/2012 07/28/2015 Solar lentiginosis 04/11/2012 07/28/2015 Other seborrheic keratosis 04/11/201207/28 Neoplasm of uncertain behavior of skin 9 07/28/2015 Other acne 09/29/2009 07/28/2015 Hidradenitis suppurativa 09/29/2009 015 Keloid scar 09/29/2009 07/28/2015 Hypertrophic scar 09/29/2009 07/28/2015 Pyoderma, unspecified 03/19/2009 12/06/2013 FOLLICULITIS///HAIR DISEASES NEC 09/10/2008 12/06/2013 Benign neoplasm of skin of trunk, except scrotum 02/19/2008 12/06/2013 Benign neoplasm of scalp and skin of neck 200712/06/2013 Benign neoplasm of skin of o ther and unspecified parts of face 02/19/2008 12/06/2013 Benign neoplasm of skin of upper limb, including shoulder 02/19/2008 12/06/2013 Scar condition and fibrosis of skin 02/19/2008 12/06/2013 Unspecified hypertrophic and atrophic condition of skin 02/19/2008 12/06/2013 Inflammatory disease of breast 07/10/2007 1 Supervision of other normal 08/24/2006 07/25/2008 Fibrosclerosis of breast 015 documented as of this encounter (statuses as of 10/06/2022) [facility]01[facility] History of Past illness Narrative* Problem Noted Date Resolved Date Atypical Nevus of female rm ast: R/O Dysplastic Intradermal Nevus mole (left mid chest at L medial breast) 12/06/2013 015 Melanocytic nevi of trunk 12/06/20132014 Melanocytic nevi of scalp and neck 12/06/2013 07/28/2015 Solar lentigo 12/06/2013 07/28/2015 Scars 12/06/2013 07/28/2015 Skin tag 12/06/2013 07/28/2015 Complex ovarian cyst 02/14/2013 05/28/2013 Abnormal uterine bleeding 01/31/20132013 Breast lump 09/14/2012 01/31/2013 Breast pain 09/14/2012 01/31/2013 Abnormal mammography 09/14/2012 05/30/2014 Atypical nevus of lower leg 04/11/201206/2015 Atypical nevus of thigh 04/11/2012 07/28/20 15 Melanocytic nevi of lower extremity or hip 04/1107/28/2015 Melanocytic nevi of face 04/11/2012 015 Melanocytic nevi of upper extremity or shoulder 04/11/2012 07/28/2015 Callus 04/11/2012 07/28/2015 Hyperpigmentation of skin 04/11/20122014 Xerosis cutis 04/11/2012 07/28/2015 Actinic skin damage 04/11/2012 07/28/2015 Solar lentiginosis 04/11/2012 07/28/2015 Other seborrheic keratosis 04/11/201207/28 Neoplasm of uncertain behavior of skin 9 07/28/2015 Other acne 09/29/2009 07/28/2015 Hidradenitis suppurativa 09/29/2009 015 Keloid scar 09/29/2009 07/28/2015 Hypertrophic scar 09/29/2009 07/28/2015 Pyoderma, unspecified 03/19/2009 12/06/2013 FOLLICULITIS///HAIR DISEASES NEC 09/10/2008 12/06/2013 Benign neoplasm of skin of trunk, except scrotum 02/19/2008 12/06/2013 Benign neoplasm of scalp and skin of neck 200712/06/2013 Benign neoplasm of skin of o ther and unspecified parts of face 02/19/2008 12/06/2013 Benign neoplasm of skin of upper limb, including shoulder 02/19/2008 12/06/2013 Scar condition and fibrosis of skin 02/19/2008 12/06/2013 Unspecified hypertrophic and atrophic condition of skin 02/19/2008 12/06/2013 Inflammatory disease of breast 07/10/2007 1 Supervision of other normal 08/24/2006 07/25/2008 Fibrosclerosis of breast 015 documented as of this encounter (statuses as of 10/12/2022) [facility]01[facility] History of Past illness Narrative* Problem Noted Date Resolved Date Atypical Nevus of female rm ast: R/O Dysplastic Intradermal Nevus mole (left mid chest at L medial breast) 12/06/2013 015 Melanocytic nevi of trunk 12/06/20132014 Melanocytic nevi of scalp and neck 12/06/2013 07/28/2015 Solar lentigo 12/06/2013 07/28/2015 Scars 12/06/2013 07/28/2015 Skin tag 12/06/2013 07/28/2015 Complex ovarian cyst 02/14/2013 05/28/2013 Abnormal uterine bleeding 01/31/20132013 Breast lump 09/14/2012 01/31/2013 Breast pain 09/14/2012 01/31/2013 Abnormal mammography 09/14/2012 05/30/2014 Atypical nevus of lower leg 04/11/201206/2015 Atypical nevus of thigh 04/11/2012 07/28/20 15 Melanocytic nevi of lower extremity or hip 04/1107/28/2015 Melanocytic nevi of face 04/11/2012 015 Melanocytic nevi of upper extremity or shoulder 04/11/2012 07/28/2015 Callus 04/11/2012 07/28/2015 Hyperpigmentation of skin 04/11/20122014 Xerosis cutis 04/11/2012 07/28/2015 Actinic skin damage 04/11/2012 07/28/2015 Solar lentiginosis 04/11/2012 07/28/2015 Other seborrheic keratosis 04/11/201207/28 Neoplasm of uncertain behavior of skin 9 07/28/2015 Other acne 09/29/2009 07/28/2015 Hidradenitis suppurativa 09/29/2009 015 Keloid scar 09/29/2009 07/28/2015 Hypertrophic scar 09/29/2009 07/28/2015 Pyoderma, unspecified 03/19/2009 12/06/2013 FOLLICULITIS///HAIR DISEASES NEC 09/10/2008 12/06/2013 Benign neoplasm of skin of trunk, except scrotum 02/19/2008 12/06/2013 Benign neoplasm of scalp and skin of neck 200712/06/2013 Benign neoplasm of skin of o ther and unspecified parts of face 02/19/2008 12/06/2013 Benign neoplasm of skin of upper limb, including shoulder 02/19/2008 12/06/2013 Scar condition and fibrosis of skin 02/19/2008 12/06/2013 Unspecified hypertrophic and atrophic condition of skin 02/19/2008 12/06/2013 Inflammatory disease of breast 07/10/2007 1 Supervision of other normal 08/24/2006 07/25/2008 Fibrosclerosis of breast 015 documented as of this encounter (statuses as of 10/27/2022) [facility]01[facility] History of Past illness Narrative* Problem Noted Date Resolved Date Atypical Nevus of female rm ast: R/O Dysplastic Intradermal Nevus mole (left mid chest at L medial breast) 12/06/2013 015 Melanocytic nevi of trunk 12/06/20132014 Melanocytic nevi of scalp and neck 12/06/2013 07/28/2015 Solar lentigo 12/06/2013 07/28/2015 Scars 12/06/2013 07/28/2015 Skin tag 12/06/2013 07/28/2015 Complex ovarian cyst 02/14/2013 05/28/2013 Abnormal uterine bleeding 01/31/20132013 Breast lump 09/14/2012 01/31/2013 Breast pain 09/14/2012 01/31/2013 Abnormal mammography 09/14/2012 05/30/2014 Atypical nevus of lower leg 04/11/201206/2015 Atypical nevus of thigh 04/11/2012 07/28/20 15 Melanocytic nevi of lower extremity or hip 04/1107/28/2015 Melanocytic nevi of face 04/11/2012 015 Melanocytic nevi of upper extremity or shoulder 04/11/2012 07/28/2015 Callus 04/11/2012 07/28/2015 Hyperpigmentation of skin 04/11/20122014 Xerosis cutis 04/11/2012 07/28/2015 Actinic skin damage 04/11/2012 07/28/2015 Solar lentiginosis 04/11/2012 07/28/2015 Other seborrheic keratosis 04/11/201207/28 Neoplasm of uncertain behavior of skin 9 07/28/2015 Other acne 09/29/2009 07/28/2015 Hidradenitis suppurativa 09/29/2009 015 Keloid scar 09/29/2009 07/28/2015 Hypertrophic scar 09/29/2009 07/28/2015 Pyoderma, unspecified 03/19/2009 12/06/2013 FOLLICULITIS///HAIR DISEASES NEC 09/10/2008 12/06/2013 Benign neoplasm of skin of trunk, except scrotum 02/19/2008 12/06/2013 Benign neoplasm of scalp and skin of neck 200712/06/2013 Benign neoplasm of skin of o ther and unspecified parts of face 02/19/2008 12/06/2013 Benign neoplasm of skin of upper limb, including shoulder 02/19/2008 12/06/2013 Scar condition and fibrosis of skin 02/19/2008 12/06/2013 Unspecified hypertrophic and atrophic condition of skin 02/19/2008 12/06/2013 Inflammatory disease of breast 07/10/2007 1 Supervision of other normal 08/24/2006 07/25/2008 Fibrosclerosis of breast 015 documented as of this encounter (statuses as of 10/29/2022) [facility]01[facility] History of Past illness Narrative* Problem Noted Date Resolved Date Atypical Nevus of female rm ast: R/O Dysplastic Intradermal Nevus mole (left mid chest at L medial breast) 12/06/2013 015 Melanocytic nevi of trunk 12/06/20132014 Melanocytic nevi of scalp and neck 12/06/2013 07/28/2015 Solar lentigo 12/06/2013 07/28/2015 Scars 12/06/2013 07/28/2015 Skin tag 12/06/2013 07/28/2015 Complex ovarian cyst 02/14/2013 05/28/2013 Abnormal uterine bleeding 01/31/20132013 Breast lump 09/14/2012 01/31/2013 Breast pain 09/14/2012 01/31/2013 Abnormal mammography 09/14/2012 05/30/2014 Atypical nevus of lower leg 04/11/2012 09/0 06/2015 Atypical nevus of thigh 04/11/2012 07/28/20 15 Melanocytic nevi of lower extremity or hip 04/1107/28/2015 Melanocytic nevi of face 04/11/2012 015 Melanocytic nevi of upper extremity or shoulder 04/11/2012 07/28/2015 Callus 04/11/2012 07/28/2015 Hyperpigmentation of skin 04/11/20122014 Xerosis cutis 04/11/2012 07/28/2015 Actinic skin damage 04/11/2012 07/28/2015 Solar lentiginosis 04/11/2012 07/28/2015 Other seborrheic keratosis 04/11/201207/28 Neoplasm of uncertain behavior of skin 9 07/28/2015 Other acne 09/29/2009 07/28/2015 Hidradenitis suppurativa 09/29/2009 015 Keloid scar 09/29/2009 07/28/2015 Hypertrophic scar 09/29/2009 07/28/2015 Pyoderma, unspecified 03/19/2009 12/06/2013 FOLLICULITIS///HAIR DISEASES NEC 09/10/2008 12/06/2013 Benign neoplasm of skin of trunk, except scrotum 02/19/2008 12/06/2013 Benign neoplasm of scalp and skin of neck 200712/06/2013 Benign neoplasm of skin of o ther and unspecified parts of face 02/19/2008 12/06/2013 Benign neoplasm of skin of upper limb, including shoulder 02/19/2008 12/06/2013 Scar condition and fibrosis of skin 02/19/2008 12/06/2013 Unspecified hypertrophic and atrophic condition of skin 02/19/2008 12/06/2013 Inflammatory disease of breast 07/10/2007 1 Supervision of other normal 08/24/2006 07/25/2008 Fibrosclerosis of breast 015 documented as of this encounter (statuses as of 10/31/2022) [facility] History of Past illness Narrative* Problem Noted Date Resolved Date Atypical Nevus of female rm ast: R/O Dysplastic Intradermal Nevus mole (left mid chest at L medial breast) 12/06/2013 015 Melanocytic nevi of trunk 12/06/20132014 Melanocytic nevi of scalp and neck 12/06/2013 07/28/2015 Solar lentigo 12/06/2013 07/28/2015 Scars 12/06/2013 07/28/2015 Skin tag 12/06/2013 07/28/2015 Complex ovarian cyst 02/14/2013 05/28/2013 Abnormal uterine bleeding 01/31/20132013 Breast lump 09/14/2012 01/31/2013 Breast pain 09/14/2012 01/31/2013 Abnormal mammography 09/14/2012 05/30/2014 Atypical nevus of lower leg 04/11/201206/2015 Atypical nevus of thigh 04/11/2012 07/28/20 15 Melanocytic nevi of lower extremity or hip 04/1107/28/2015 Melanocytic nevi of face 04/11/2012 015 Melanocytic nevi of upper extremity or shoulder 04/11/2012 07/28/2015 Callus 04/11/2012 07/28/2015 Hyperpigmentation of skin 04/11/20122014 Xerosis cutis 04/11/2012 07/28/2015 Actinic skin damage 04/11/2012 07/28/2015 Solar lentiginosis 04/11/2012 07/28/2015 Other seborrheic keratosis 04/11/201207/28 Neoplasm of uncertain behavior of skin 07/28/2015 Other acne 09/29/2009 07/28/2015 Hidradenitis suppurativa 09/29/2009 015 Keloid scar 09/29/2009 07/28/2015 Hypertrophic scar 09/29/2009 07/28/2015 Pyoderma, unspecified 03/19/2009 12/06/2013 FOLLICULITIS///HAIR DISEASES NEC 09/10/2008 12/06/2013 Benign neoplasm of skin of trunk, except scrotum 02/19/2008 12/06/2013 Benign neoplasm of scalp and skin of neck 200712/06/2013 Benign neoplasm of skin of o ther and unspecified parts of face 02/19/2008 12/06/2013 Benign neoplasm of skin of upper limb, including shoulder 02/19/2008 12/06/2013 Scar condition and fibrosis of skin 02/19/2008 12/06/2013 Unspecified hypertrophic and atrophic condition of skin 02/19/2008 12/06/2013 Inflammatory disease of breast 07/10/2007 1 Supervision of other normal 08/24/2006 07/25/2008 Fibrosclerosis of breast 015 documented as of this encounter (statuses as of 11/24/2022) [facility] History of Past illness Narrative* Problem Noted Date Resolved Date Atypical Nevus of female rm ast: R/O Dysplastic Intradermal Nevus mole (left mid chest at L medial breast) 12/06/2013 015 Melanocytic nevi of trunk 12/06/20132014 Melanocytic nevi of scalp and neck 12/06/2013 07/28/2015 Solar lentigo 12/06/2013 07/28/2015 Scars 12/06/2013 07/28/2015 Skin tag 12/06/2013 07/28/2015 Complex ovarian cyst 02/14/2013 05/28/2013 Abnormal uterine bleeding 01/31/20132013 Breast lump 09/14/2012 01/31/2013 Breast pain 09/14/2012 01/31/2013 Abnormal mammography 09/14/2012 05/30/2014 Atypical nevus of lower leg 04/11/201206/2015 Atypical nevus of thigh 04/11/2012 07/28/20 15 Melanocytic nevi of lower extremity or hip 04/1107/28/2015 Melanocytic nevi of face 04/11/2012 015 Melanocytic nevi of upper extremity or shoulder 04/11/2012 07/28/2015 Callus 04/11/2012 07/28/2015 Hyperpigmentation of skin 04/11/20122014 Xerosis cutis 04/11/2012 07/28/2015 Actinic skin damage 04/11/2012 07/28/2015 Solar lentiginosis 04/11/2012 07/28/2015 Other seborrheic keratosis 04/11/201207/28 Neoplasm of uncertain behavior of skin 9 07/28/2015 Other acne 09/29/2009 07/28/2015 Hidradenitis suppurativa 09/29/2009 015 Keloid scar 09/29/2009 07/28/2015 Hypertrophic scar 09/29/2009 07/28/2015 Pyoderma, unspecified 03/19/2009 12/06/2013 FOLLICULITIS///HAIR DISEASES NEC 09/10/2008 12/06/2013 Benign neoplasm of skin of trunk, except scrotum 02/19/2008 12/06/2013 Benign neoplasm of scalp and skin of neck 200712/06/2013 Benign neoplasm of skin of o ther and unspecified parts of face 02/19/2008 12/06/2013 Benign neoplasm of skin of upper limb, including shoulder 02/19/2008 12/06/2013 Scar condition and fibrosis of skin 02/19/2008 12/06/2013 Unspecified hypertrophic and atrophic condition of skin 02/19/2008 12/06/2013 Inflammatory disease of breast 07/10/2007 1 Supervision of other normal 08/24/2006 07/25/2008 Fibrosclerosis of breast 015 documented as of this encounter (statuses as of 11/25/2022) [facility] History of Past illness Narrative* Problem Noted Date Resolved Date Atypical Nevus of female rm ast: R/O Dysplastic Intradermal Nevus mole (left mid chest at L medial breast) 12/06/2013 015 Melanocytic nevi of trunk 12/06/20132014 Melanocytic nevi of scalp and neck 12/06/2013 07/28/2015 Solar lentigo 12/06/2013 07/28/2015 Scars 12/06/2013 07/28/2015 Skin tag 12/06/2013 07/28/2015 Complex ovarian cyst 02/14/2013 05/28/2013 Abnormal uterine bleeding 01/31/20132013 Breast lump 09/14/2012 01/31/2013 Breast pain 09/14/2012 01/31/2013 Abnormal mammography 09/14/2012 05/30/2014 Atypical nevus of lower leg 04/11/201206/2015 Atypical nevus of thigh 04/11/2012 07/28/20 15 Melanocytic nevi of lower extremity or hip 04/1107/28/2015 Melanocytic nevi of face 04/11/2012 015 Melanocytic nevi of upper extremity or shoulder 04/11/2012 07/28/2015 Callus 04/11/2012 07/28/2015 Hyperpigmentation of skin 04/11/20122014 Xerosis cutis 04/11/2012 07/28/2015 Actinic skin damage 04/11/2012 07/28/2015 Solar lentiginosis 04/11/2012 07/28/2015 Other seborrheic keratosis 04/11/201207/28 Neoplasm of uncertain behavior of skin 9 07/28/2015 Other acne 09/29/2009 07/28/2015 Hidradenitis suppurativa 09/29/2009 015 Keloid scar 09/29/2009 07/28/2015 Hypertrophic scar 09/29/2009 07/28/2015 Pyoderma, unspecified 03/19/2009 12/06/2013 FOLLICULITIS///HAIR DISEASES NEC 09/10/2008 12/06/2013 Benign neoplasm of skin of trunk, except scrotum 02/19/2008 12/06/2013 Benign neoplasm of scalp and skin of neck 200712/06/2013 Benign neoplasm of skin of o ther and unspecified parts of face 02/19/2008 12/06/2013 Benign neoplasm of skin of upper limb, including shoulder 02/19/2008 12/06/2013 Scar condition and fibrosis of skin 02/19/2008 12/06/2013 Unspecified hypertrophic and atrophic condition of skin 02/19/2008 12/06/2013 Inflammatory disease of breast 07/10/2007 1 Supervision of other normal 08/24/2006 07/25/2008 Fibrosclerosis of breast 015 documented as of this encounter (statuses as of 12/06/2022) [facility] History of Past illness Narrative* Problem Noted Date Resolved Date Atypical Nevus of female rm ast: R/O Dysplastic Intradermal Nevus mole (left mid chest at L medial breast) 12/06/2013 015 Melanocytic nevi of trunk 12/06/20132014 Melanocytic nevi of scalp and neck 12/06/2013 07/28/2015 Solar lentigo 12/06/2013 07/28/2015 Scars 12/06/2013 07/28/2015 Skin tag 12/06/2013 07/28/2015 Complex ovarian cyst 02/14/2013 05/28/2013 Abnormal uterine bleeding 01/31/20132013 Breast lump 09/14/2012 01/31/2013 Breast pain 09/14/2012 01/31/2013 Abnormal mammography 09/14/2012 05/30/2014 Atypical nevus of lower leg 04/11/201206/2015 Atypical nevus of thigh 04/11/2012 07/28/20 15 Melanocytic nevi of lower extremity or hip 04/1107/28/2015 Melanocytic nevi of face 04/11/2012 015 Melanocytic nevi of upper extremity or shoulder 04/11/2012 07/28/2015 Callus 04/11/2012 07/28/2015 Hyperpigmentation of skin 04/11/20122014 Xerosis cutis 04/11/2012 07/28/2015 Actinic skin damage 04/11/2012 07/28/2015 Solar lentiginosis 04/11/2012 07/28/2015 Other seborrheic keratosis 04/11/201207/28 Neoplasm of uncertain behavior of skin 9 07/28/2015 Other acne 09/29/2009 07/28/2015 Hidradenitis suppurativa 09/29/2009 015 Keloid scar 09/29/2009 07/28/2015 Hypertrophic scar 09/29/2009 07/28/2015 Pyoderma, unspecified 03/19/2009 12/06/2013 FOLLICULITIS///HAIR DISEASES NEC 09/10/2008 12/06/2013 Benign neoplasm of skin of trunk, except scrotum 02/19/2008 12/06/2013 Benign neoplasm of scalp and skin of neck 200712/06/2013 Benign neoplasm of skin of o ther and unspecified parts of face 02/19/2008 12/06/2013 Benign neoplasm of skin of upper limb, including shoulder 02/19/2008 12/06/2013 Scar condition and fibrosis of skin 02/19/2008 12/06/2013 Unspecified hypertrophic and atrophic condition of skin 02/19/2008 12/06/2013 Inflammatory disease of breast 07/10/2007 1 Supervision of other normal 08/24/2006 07/25/2008 Fibrosclerosis of breast 015 documented as of this encounter (statuses as of 12/23/2022) [facility] History of Past illness Narrative* Problem Noted Date Resolved Date Atypical Nevus of female rm ast: R/O Dysplastic Intradermal Nevus mole (left mid chest at L medial breast) 12/06/2013 015 Melanocytic nevi of trunk 12/06/20132014 Melanocytic nevi of scalp and neck 12/06/2013 07/28/2015 Solar lentigo 12/06/2013 07/28/2015 Scars 12/06/2013 07/28/2015 Skin tag 12/06/2013 07/28/2015 Complex ovarian cyst 02/14/2013 05/28/2013 Abnormal uterine bleeding 01/31/20132013 Breast lump 09/14/2012 01/31/2013 Breast pain 09/14/2012 01/31/2013 Abnormal mammography 09/14/2012 05/30/2014 Atypical nevus of lower leg 04/11/201206/2015 Atypical nevus of thigh 04/11/2012 07/28/20 15 Melanocytic nevi of lower extremity or hip 04/1107/28/2015 Melanocytic nevi of face 04/11/2012 015 Melanocytic nevi of upper extremity or shoulder 04/11/2012 07/28/2015 Callus 04/11/2012 07/28/2015 Hyperpigmentation of skin 04/11/20122014 Xerosis cutis 04/11/2012 07/28/2015 Actinic skin damage 04/11/2012 07/28/2015 Solar lentiginosis 04/11/2012 07/28/2015 Other seborrheic keratosis 04/11/201207/28 Neoplasm of uncertain behavior of skin 9 07/28/2015 Other acne 09/29/2009 07/28/2015 Hidradenitis suppurativa 09/29/2009 015 Keloid scar 09/29/2009 07/28/2015 Hypertrophic scar 09/29/2009 07/28/2015 Pyoderma, unspecified 03/19/2009 12/06/2013 FOLLICULITIS///HAIR DISEASES NEC 09/10/2008 12/06/2013 Benign neoplasm of skin of trunk, except scrotum 02/19/2008 12/06/2013 Benign neoplasm of scalp and skin of neck 200712/06/2013 Benign neoplasm of skin of o ther and unspecified parts of face 02/19/2008 12/06/2013 Benign neoplasm of skin of upper limb, including shoulder 02/19/2008 12/06/2013 Scar condition and fibrosis of skin 02/19/2008 12/06/2013 Unspecified hypertrophic and atrophic condition of skin 02/19/2008 12/06/2013 Inflammatory disease of breast 07/10/2007 1 Supervision of other normal 08/24/2006 07/25/2008 Fibrosclerosis of breast 015 documented as of this encounter (statuses as of 01/06/2023) [facility]01-17-2014 History of Past illness Narrative* Problem Noted Date Resolved Date Atypical Nevus of female rm ast: R/O Dysplastic Intradermal Nevus mole (left mid chest at L medial breast) 12/06/2013 015 Melanocytic nevi of trunk 12/06/20132014 Melanocytic nevi of scalp and neck 12/06/2013 07/28/2015 Solar lentigo 12/06/2013 07/28/2015 Scars 12/06/2013 07/28/2015 Skin tag 12/06/2013 07/28/2015 Complex ovarian cyst 02/14/2013 05/28/2013 Abnormal uterine bleeding 01/31/20132013 Breast lump 09/14/2012 01/31/2013 Breast pain 09/14/2012 01/31/2013 Abnormal mammography 09/14/2012 05/30/2014 Atypical nevus of lower leg 04/11/2012/06/2015 Atypical nevus of thigh 04/11/2012 07/28/20 15 Melanocytic nevi of lower extremity or hip 04/1107/28/2015 Melanocytic nevi of face 04/11/2012 015 Melanocytic nevi of upper extremity or shoulder 04/11/2012 07/28/2015 Callus 04/11/2012 07/28/2015 Hyperpigmentation of skin 04/11/20122014 Xerosis cutis 04/11/2012 07/28/2015 Actinic skin damage 04/11/2012 07/28/2015 Solar lentiginosis 04/11/2012 07/28/2015 Other seborrheic keratosis 04/11/201207/28 Neoplasm of uncertain behavior of skin 9 07/28/2015 Other acne 09/29/2009 07/28/2015 Hidradenitis suppurativa 09/29/2009 015 Keloid scar 09/29/2009 07/28/2015 Hypertrophic scar 09/29/2009 07/28/2015 Pyoderma, unspecified 03/19/2009 12/06/2013 FOLLICULITIS///HAIR DISEASES NEC 09/10/2008 12/06/2013 Benign neoplasm of skin of trunk, except scrotum 02/19/2008 12/06/2013 Benign neoplasm of scalp and skin of neck 200712/06/2013 Benign neoplasm of skin of o ther and unspecified parts of face 02/19/2008 12/06/2013 Benign neoplasm of skin of upper limb, including shoulder 02/19/2008 12/06/2013 Scar condition and fibrosis of skin 02/19/2008 12/06/2013 Unspecified hypertrophic and atrophic condition of skin 02/19/2008 12/06/2013 Inflammatory disease of breast 07/10/2007 1 Supervision of other normal 08/24/2006 07/25/2008 Fibrosclerosis of breast 015 documented as of this encounter (statuses as of 01/12/2023) [facility]01-17-[facility] History of Past illness Narrative* Problem Noted Date Resolved Date Atypical Nevus of female rm ast: R/O Dysplastic Intradermal Nevus mole (left mid chest at L medial breast) 12/06/2013 015 Melanocytic nevi of trunk 12/06/20132014 Melanocytic nevi of scalp and neck 12/06/2013 07/28/2015 Solar lentigo 12/06/2013 07/28/2015 Scars 12/06/2013 07/28/2015 Skin tag 12/06/2013 07/28/2015 Complex ovarian cyst 02/14/2013 05/28/2013 Abnormal uterine bleeding 01/31/20132013 Breast lump 09/14/2012 01/31/2013 Breast pain 09/14/2012 01/31/2013 Abnormal mammography 09/14/2012 05/30/2014 Atypical nevus of lower leg 04/11/2012 09/06/2015 Atypical nevus of thigh 04/11/2012 07/28/20 15 Melanocytic nevi of lower extremity or hip 04/1107/28/2015 Melanocytic nevi of face 04/11/2012 015 Melanocytic nevi of upper extremity or shoulder 04/11/2012 07/28/2015 Callus 04/11/2012 07/28/2015 Hyperpigmentation of skin 04/11/20122014 Xerosis cutis 04/11/2012 07/28/2015 Actinic skin damage 04/11/2012 07/28/2015 Solar lentiginosis 04/11/2012 07/28/2015 Other seborrheic keratosis 04/11/201207/28 Neoplasm of uncertain behavior of skin 9 07/28/2015 Other acne 09/29/2009 07/28/2015 Hidradenitis suppurativa 09/29/2009 015 Keloid scar 09/29/2009 07/28/2015 Hypertrophic scar 09/29/2009 07/28/2015 Pyoderma, unspecified 03/19/2009 12/06/2013 FOLLICULITIS///HAIR DISEASES NEC 09/10/2008 12/06/2013 Benign neoplasm of skin of trunk, except scrotum 02/19/2008 12/06/2013 Benign neoplasm of scalp and skin of neck 200712/06/2013 Benign neoplasm of skin of o ther and unspecified parts of face 02/19/2008 12/06/2013 Benign neoplasm of skin of upper limb, including shoulder 02/19/2008 12/06/2013 Scar condition and fibrosis of skin 02/19/2008 12/06/2013 Unspecified hypertrophic and atrophic condition of skin 02/19/2008 12/06/2013 Inflammatory disease of breast 07/10/2007 1 Supervision of other normal 08/24/2006 07/25/2008 Fibrosclerosis of breast 015 documented as of this encounter (statuses as of 01/20/2023) [facility]01-17-2014 History of Past illness Narrative* Problem Noted Date Resolved Date Atypical Nevus of female rm ast: R/O Dysplastic Intradermal Nevus mole (left mid chest at L medial breast) 12/06/2013 015 Melanocytic nevi of trunk 12/06/20132014 Melanocytic nevi of scalp and neck 12/06/2013 07/28/2015 Solar lentigo 12/06/2013 07/28/2015 Scars 12/06/2013 07/28/2015 Skin tag 12/06/2013 07/28/2015 Complex ovarian cyst 02/14/2013 05/28/2013 Abnormal uterine bleeding 01/31/20132013 Breast lump 09/14/2012 01/31/2013 Breast pain 09/14/2012 01/31/2013 Abnormal mammography 09/14/2012 05/30/2014 Atypical nevus of lower leg 04/11/201206/2015 Atypical nevus of thigh 04/11/2012 07/28/20 15 Melanocytic nevi of lower extremity or hip 04/1107/28/2015 Melanocytic nevi of face 04/11/2012 015 Melanocytic nevi of upper extremity or shoulder 04/11/2012 07/28/2015 Callus 04/11/2012 07/28/2015 Hyperpigmentation of skin 04/11/20122014 Xerosis cutis 04/11/2012 07/28/2015 Actinic skin damage 04/11/2012 07/28/2015 Solar lentiginosis 04/11/2012 07/28/2015 Other seborrheic keratosis 04/11/201207/28 Neoplasm of uncertain behavior of skin 9 07/28/2015 Other acne 09/29/2009 07/28/2015 Hidradenitis suppurativa 09/29/2009 015 Keloid scar 09/29/2009 07/28/2015 Hypertrophic scar 09/29/2009 07/28/2015 Pyoderma, unspecified 03/19/2009 12/06/2013 FOLLICULITIS///HAIR DISEASES NEC 09/10/2008 12/06/2013 Benign neoplasm of skin of trunk, except scrotum 02/19/2008 12/06/2013 Benign neoplasm of scalp and skin of neck 200712/06/2013 Benign neoplasm of skin of o ther and unspecified parts of face 02/19/2008 12/06/2013 Benign neoplasm of skin of upper limb, including shoulder 02/19/2008 12/06/2013 Scar condition and fibrosis of skin 02/19/2008 12/06/2013 Unspecified hypertrophic and atrophic condition of skin 02/19/2008 12/06/2013 Inflammatory disease of breast 07/10/2007 1 Supervision of other normal 08/24/2006 07/25/2008 Fibrosclerosis of breast 015 documented as of this encounter (statuses as of 01/20/2023) [facility]01[facility]17-2014 History of Past illness Narrative* Problem Noted Date Resolved Date Atypical Nevus of female rm ast: R/O Dysplastic Intradermal Nevus mole (left mid chest at L medial breast) 12/06/2013 015 Melanocytic nevi of trunk 12/06/20132014 Melanocytic nevi of scalp and neck 12/06/2013 07/28/2015 Solar lentigo 12/06/2013 07/28/2015 Scars 12/06/2013 07/28/2015 Skin tag 12/06/2013 07/28/2015 Complex ovarian cyst 02/14/2013 05/28/2013 Abnormal uterine bleeding 01/31/20132013 Breast lump 09/14/2012 01/31/2013 Breast pain 09/14/2012 01/31/2013 Abnormal mammography 09/14/2012 05/30/2014 Atypical nevus of lower leg 04/11/201206/2015 Atypical nevus of thigh 04/11/2012 07/28/20 15 Melanocytic nevi of lower extremity or hip 04/1107/28/2015 Melanocytic nevi of face 04/11/2012 015 Melanocytic nevi of upper extremity or shoulder 04/11/2012 07/28/2015 Callus 04/11/2012 07/28/2015 Hyperpigmentation of skin 04/11/20122014 Xerosis cutis 04/11/2012 07/28/2015 Actinic skin damage 04/11/2012 07/28/2015 Solar lentiginosis 04/11/2012 07/28/2015 Other seborrheic keratosis 04/11/201207/28 Neoplasm of uncertain behavior of skin 9 07/28/2015 Other acne 09/29/2009 07/28/2015 Hidradenitis suppurativa 09/29/2009 015 Keloid scar 09/29/2009 07/28/2015 Hypertrophic scar 09/29/2009 07/28/2015 Pyoderma, unspecified 03/19/2009 12/06/2013 FOLLICULITIS///HAIR DISEASES NEC 09/10/2008 12/06/2013 Benign neoplasm of skin of trunk, except scrotum 02/19/2008 12/06/2013 Benign neoplasm of scalp and skin of neck 200712/06/2013 Benign neoplasm of skin of o ther and unspecified parts of face 02/19/2008 12/06/2013 Benign neoplasm of skin of upper limb, including shoulder 02/19/2008 12/06/2013 Scar condition and fibrosis of skin 02/19/2008 12/06/2013 Unspecified hypertrophic and atrophic condition of skin 02/19/2008 12/06/2013 Inflammatory disease of breast 07/10/2007 1 Supervision of other normal 08/24/2006 07/25/2008 Fibrosclerosis of breast 015 documented as of this encounter (statuses as of 02/01/2023) [facility]01[facility] History of Past illness Narrative* Problem Noted Date Resolved Date Atypical Nevus of female rm ast: R/O Dysplastic Intradermal Nevus mole (left mid chest at L medial breast) 12/06/2013 015 Melanocytic nevi of trunk 12/06/20132014 Melanocytic nevi of scalp and neck 12/06/2013 07/28/2015 Solar lentigo 12/06/2013 07/28/2015 Scars 12/06/2013 07/28/2015 Skin tag 12/06/2013 07/28/2015 Complex ovarian cyst 02/14/2013 05/28/2013 Abnormal uterine bleeding 01/31/20132013 Breast lump 09/14/2012 01/31/2013 Breast pain 09/14/2012 01/31/2013 Abnormal mammography 09/14/2012 05/30/2014 Atypical nevus of lower leg 04/11/201206/2015 Atypical nevus of thigh 04/11/2012 07/28/20 15 Melanocytic nevi of lower extremity or hip 04/1107/28/2015 Melanocytic nevi of face 04/11/2012 015 Melanocytic nevi of upper extremity or shoulder 04/11/2012 07/28/2015 Callus 04/11/2012 07/28/2015 Hyperpigmentation of skin 04/11/20122014 Xerosis cutis 04/11/2012 07/28/2015 Actinic skin damage 04/11/2012 07/28/2015 Solar lentiginosis 04/11/2012 07/28/2015 Other seborrheic keratosis 04/11/201207/28 Neoplasm of uncertain behavior of skin 9 07/28/2015 Other acne 09/29/2009 07/28/2015 Hidradenitis suppurativa 09/29/2009 015 Keloid scar 09/29/2009 07/28/2015 Hypertrophic scar 09/29/2009 07/28/2015 Pyoderma, unspecified 03/19/2009 12/06/2013 FOLLICULITIS///HAIR DISEASES NEC 09/10/2008 12/06/2013 Benign neoplasm of skin of trunk, except scrotum 02/19/2008 12/06/2013 Benign neoplasm of scalp and skin of neck 200712/06/2013 Benign neoplasm of skin of o ther and unspecified parts of face 02/19/2008 12/06/2013 Benign neoplasm of skin of upper limb, including shoulder 02/19/2008 12/06/2013 Scar condition and fibrosis of skin 02/19/2008 12/06/2013 Unspecified hypertrophic and atrophic condition of skin 02/19/2008 12/06/2013 Inflammatory disease of breast 07/10/2007 1 Supervision of other normal 08/24/2006 07/25/2008 Fibrosclerosis of breast 015 documented as of this encounter (statuses as of 02/20/2023) [facility]01[facility] History of Past illness Narrative* Problem Noted Date Resolved Date Atypical Nevus of female rm ast: R/O Dysplastic Intradermal Nevus mole (left mid chest at L medial breast) 12/06/2013 015 Melanocytic nevi of trunk 12/06/20132014 Melanocytic nevi of scalp and neck 12/06/2013 07/28/2015 Solar lentigo 12/06/2013 07/28/2015 Scars 12/06/2013 07/28/2015 Skin tag 12/06/2013 07/28/2015 Complex ovarian cyst 02/14/2013 05/28/2013 Abnormal uterine bleeding 01/31/20132013 Breast lump 09/14/2012 01/31/2013 Breast pain 09/14/2012 01/31/2013 Abnormal mammography 09/14/2012 05/30/2014 Atypical nevus of lower leg 04/11/201206/2015 Atypical nevus of thigh 04/11/2012 07/28/20 15 Melanocytic nevi of lower extremity or hip 04/1107/28/2015 Melanocytic nevi of face 04/11/2012 015 Melanocytic nevi of upper extremity or shoulder 04/11/2012 07/28/2015 Callus 04/11/2012 07/28/2015 Hyperpigmentation of skin 04/11/20122014 Xerosis cutis 04/11/2012 07/28/2015 Actinic skin damage 04/11/2012 07/28/2015 Solar lentiginosis 04/11/2012 07/28/2015 Other seborrheic keratosis 04/11/201207/28 Neoplasm of uncertain behavior of skin 9 07/28/2015 Other acne 09/29/2009 07/28/2015 Hidradenitis suppurativa 09/29/2009 015 Keloid scar 09/29/2009 07/28/2015 Hypertrophic scar 09/29/2009 07/28/2015 Pyoderma, unspecified 03/19/2009 12/06/2013 FOLLICULITIS///HAIR DISEASES NEC 09/10/2008 12/06/2013 Benign neoplasm of skin of trunk, except scrotum 02/19/2008 12/06/2013 Benign neoplasm of scalp and skin of neck 200712/06/2013 Benign neoplasm of skin of o ther and unspecified parts of face 02/19/2008 12/06/2013 Benign neoplasm of skin of upper limb, including shoulder 02/19/2008 12/06/2013 Scar condition and fibrosis of skin 02/19/2008 12/06/2013 Unspecified hypertrophic and atrophic condition of skin 02/19/2008 12/06/2013 Inflammatory disease of breast 07/10/2007 1 Supervision of other normal 08/24/2006 07/25/2008 Fibrosclerosis of breast 09/08/2 015 documented as of this encounter (statuses as of 03/09/2023) [facility]01[facility] History of Past illness Narrative* Problem Noted Date Resolved Date Atypical Nevus of female rm ast: R/O Dysplastic Intradermal Nevus mole (left mid chest at L medial breast) 12/06/2013 015 Melanocytic nevi of trunk 12/06/20132014 Melanocytic nevi of scalp and neck 12/06/2013 07/28/2015 Solar lentigo 12/06/2013 07/28/2015 Scars 12/06/2013 07/28/2015 Skin tag 12/06/2013 07/28/2015 Complex ovarian cyst 02/14/2013 05/28/2013 Abnormal uterine bleeding 01/31/20132013 Breast lump 09/14/2012 01/31/2013 Breast pain 09/14/2012 01/31/2013 Abnormal mammography 09/14/2012 05/30/2014 Atypical nevus of lower leg 04/11/201206/2015 Atypical nevus of thigh 04/11/2012 07/28/20 15 Melanocytic nevi of lower extremity or hip 04/1107/28/2015 Melanocytic nevi of face 04/11/2012 015 Melanocytic nevi of upper extremity or shoulder 04/11/2012 07/28/2015 Callus 04/11/2012 07/28/2015 Hyperpigmentation of skin 04/11/20122014 Xerosis cutis 04/11/2012 07/28/2015 Actinic skin damage 04/11/2012 07/28/2015 Solar lentiginosis 04/11/2012 07/28/2015 Other seborrheic keratosis 04/11/201207/28 Neoplasm of uncertain behavior of skin 9 07/28/2015 Other acne 09/29/2009 07/28/2015 Hidradenitis suppurativa 09/29/2009 015 Keloid scar 09/29/2009 07/28/2015 Hypertrophic scar 09/29/2009 07/28/2015 Pyoderma, unspecified 03/19/2009 12/06/2013 FOLLICULITIS///HAIR DISEASES NEC 09/10/2008 12/06/2013 Benign neoplasm of skin of trunk, except scrotum 02/19/2008 12/06/2013 Benign neoplasm of scalp and skin of neck 200712/06/2013 Benign neoplasm of skin of o ther and unspecified parts of face 02/19/2008 12/06/2013 Benign neoplasm of skin of upper limb, including shoulder 02/19/2008 12/06/2013 Scar condition and fibrosis of skin 02/19/2008 12/06/2013 Unspecified hypertrophic and atrophic condition of skin 02/19/2008 12/06/2013 Inflammatory disease of breast 07/10/2007 1 Supervision of other normal 08/24/2006 07/25/2008 Fibrosclerosis of breast 015 documented as of this encounter (statuses as of 03/20/2023) [facility] History of Past illness Narrative* Problem Noted Date Resolved Date Atypical Nevus of female rm ast: R/O Dysplastic Intradermal Nevus mole (left mid chest at L medial breast) 12/06/2013 015 Melanocytic nevi of trunk 12/06/20132014 Melanocytic nevi of scalp and neck 12/06/2013 07/28/2015 Solar lentigo 12/06/2013 07/28/2015 Scars 12/06/2013 07/28/2015 Skin tag 12/06/2013 07/28/2015 Complex ovarian cyst 02/14/2013 05/28/2013 Abnormal uterine bleeding 01/31/20132013 Breast lump 09/14/2012 01/31/2013 Breast pain 09/14/2012 01/31/2013 Abnormal mammography 09/14/2012 05/30/2014 Atypical nevus of lower leg 04/11/201206/2015 Atypical nevus of thigh 04/11/2012 07/28/20 15 Melanocytic nevi of lower extremity or hip 04/1107/28/2015 Melanocytic nevi of face 04/11/2012 015 Melanocytic nevi of upper extremity or shoulder 04/11/2012 07/28/2015 Callus 04/11/2012 07/28/2015 Hyperpigmentation of skin 04/11/20122014 Xerosis cutis 04/11/2012 07/28/2015 Actinic skin damage 04/11/2012 07/28/2015 Solar lentiginosis 04/11/2012 07/28/2015 Other seborrheic keratosis 04/11/201207/28 Neoplasm of uncertain behavior of skin 9 07/28/2015 Other acne 09/29/2009 07/28/2015 Hidradenitis suppurativa 09/29/2009 015 Keloid scar 09/29/2009 07/28/2015 Hypertrophic scar 09/29/2009 07/28/2015 Pyoderma, unspecified 03/19/2009 12/06/2013 FOLLICULITIS///HAIR DISEASES NEC 09/10/2008 12/06/2013 Benign neoplasm of skin of trunk, except scrotum 02/19/2008 12/06/2013 Benign neoplasm of scalp and skin of neck 200712/06/2013 Benign neoplasm of skin of o ther and unspecified parts of face 02/19/2008 12/06/2013 Benign neoplasm of skin of upper limb, including shoulder 02/19/2008 12/06/2013 Scar condition and fibrosis of skin 02/19/2008 12/06/2013 Unspecified hypertrophic and atrophic condition of skin 02/19/2008 12/06/2013 Inflammatory disease of breast 07/10/2007 1 Supervision of other normal 08/24/2006 07/25/2008 Fibrosclerosis of breast 015 documented as of this encounter (statuses as of 03/21/2023) [facility] History of Past illness Narrative* Problem Noted Date Resolved Date Atypical Nevus of female rm ast: R/O Dysplastic Intradermal Nevus mole (left mid chest at L medial breast) 12/06/2013 015 Melanocytic nevi of trunk 12/06/20132014 Melanocytic nevi of scalp and neck 12/06/2013 07/28/2015 Solar lentigo 12/06/2013 07/28/2015 Scars 12/06/2013 07/28/2015 Skin tag 12/06/2013 07/28/2015 Complex ovarian cyst 02/14/2013 05/28/2013 Abnormal uterine bleeding 01/31/20132013 Breast lump 09/14/2012 01/31/2013 Breast pain 09/14/2012 01/31/2013 Abnormal mammography 09/14/2012 05/30/2014 Atypical nevus of lower leg 04/11/201206/2015 Atypical nevus of thigh 04/11/2012 07/28/20 15 Melanocytic nevi of lower extremity or hip 04/1107/28/2015 Melanocytic nevi of face 04/11/2012 015 Melanocytic nevi of upper extremity or shoulder 04/11/2012 07/28/2015 Callus 04/11/2012 07/28/2015 Hyperpigmentation of skin 04/11/20122014 Xerosis cutis 04/11/2012 07/28/2015 Actinic skin damage 04/11/2012 07/28/2015 Solar lentiginosis 04/11/2012 07/28/2015 Other seborrheic keratosis 04/11/201207/28 Neoplasm of uncertain behavior of skin 9 07/28/2015 Other acne 09/29/2009 07/28/2015 Hidradenitis suppurativa 09/29/2009 015 Keloid scar 09/29/2009 07/28/2015 Hypertrophic scar 09/29/2009 07/28/2015 Pyoderma, unspecified 03/19/2009 12/06/2013 FOLLICULITIS///HAIR DISEASES NEC 09/10/2008 12/06/2013 Benign neoplasm of skin of trunk, except scrotum 02/19/2008 12/06/2013 Benign neoplasm of scalp and skin of neck 200712/06/2013 Benign neoplasm of skin of o ther and unspecified parts of face 02/19/2008 12/06/2013 Benign neoplasm of skin of upper limb, including shoulder 02/19/2008 12/06/2013 Scar condition and fibrosis of skin 02/19/2008 12/06/2013 Unspecified hypertrophic and atrophic condition of skin 02/19/2008 12/06/2013 Inflammatory disease of breast 07/10/2007 1 Supervision of other normal 08/24/2006 07/25/2008 Fibrosclerosis of breast 015 documented as of this encounter (statuses as of 04/17/2023) [facility] History of Past illness Narrative* Problem Noted Date Resolved Date Atypical Nevus of female rm ast: R/O Dysplastic Intradermal Nevus mole (left mid chest at L medial breast) 12/06/2013 015 Melanocytic nevi of trunk 12/06/20132014 Melanocytic nevi of scalp and neck 12/06/2013 07/28/2015 Solar lentigo 12/06/2013 07/28/2015 Scars 12/06/2013 07/28/2015 Skin tag 12/06/2013 07/28/2015 Complex ovarian cyst 02/14/2013 05/28/2013 Abnormal uterine bleeding 01/31/20132013 Breast lump 09/14/2012 01/31/2013 Breast pain 09/14/2012 01/31/2013 Abnormal mammography 09/14/2012 05/30/2014 Atypical nevus of lower leg 04/11/201206/2015 Atypical nevus of thigh 04/11/2012 07/28/20 15 Melanocytic nevi of lower extremity or hip 04/1107/28/2015 Melanocytic nevi of face 04/11/2012 015 Melanocytic nevi of upper extremity or shoulder 04/11/2012 07/28/2015 Callus 04/11/2012 07/28/2015 Hyperpigmentation of skin 04/11/20122014 Xerosis cutis 04/11/2012 07/28/2015 Actinic skin damage 04/11/2012 07/28/2015 Solar lentiginosis 04/11/2012 07/28/2015 Other seborrheic keratosis 04/11/201207/28 Neoplasm of uncertain behavior of skin 9 07/28/2015 Other acne 09/29/2009 07/28/2015 Hidradenitis suppurativa 09/29/2009 015 Keloid scar 09/29/2009 07/28/2015 Hypertrophic scar 09/29/2009 07/28/2015 Pyoderma, unspecified 03/19/2009 12/06/2013 FOLLICULITIS///HAIR DISEASES NEC 09/10/2008 12/06/2013 Benign neoplasm of skin of trunk, except scrotum 02/19/2008 12/06/2013 Benign neoplasm of scalp and skin of neck 200712/06/2013 Benign neoplasm of skin of o ther and unspecified parts of face 02/19/2008 12/06/2013 Benign neoplasm of skin of upper limb, including shoulder 02/19/2008 12/06/2013 Scar condition and fibrosis of skin 02/19/2008 12/06/2013 Unspecified hypertrophic and atrophic condition of skin 02/19/2008 12/06/2013 Inflammatory disease of breast 07/10/2007 1 Supervision of other normal 08/24/2006 07/25/2008 Fibrosclerosis of breast 015 documented as of this encounter (statuses as of 04/25/2023) [facility] History of Past illness Narrative* Problem Noted Date Diagnosed Date Resolved Date Atypical Nevus of female rm ast: R/O Dysplastic Intradermal Nevus mole (left mid chest at L medial breast) 12/06/2013 07/28/2015 Melanocytic nevi of trunk 12/06/2013 Melanocytic nevi of scalp and neck 12/06/2013 07/28/2015 Solar lentigo 12/06/2013 07/28/2015 Scars 12/06/2013 07/28/2015 Skin tag 12/06/2013 07/28/2015 Complex ovarian cyst 02/14/2013 013 Abnormal uterine bleeding 01/31/2013 Breast lump 09/14/2012 01/31/2013 Breast pain 09/14/2012 01/31/2013 Abnormal mammography 09/14/2012 014 Atypical nevus of lower leg 04/11/2012 07/28/2015 Atypical nevus of thigh 04/11/201206/2015 Melanocytic nevi of lower extremity or hip 04/11/2012 07/28/2015 Melanocytic nevi of face 04/11/201206/2015 Melanocytic nevi of upper ex tremity or shoulder 04/11/2012 07/28/2015 Callus 04/11/2012 07/28/2015 Hyperpigmentation of skin 04/11/2012 Xerosis cutis 04/11/2012 07/28/2015 Actinic skin damage 04/11/2012 07/28/20 15 Solar lentiginosis 04/11/2012 5 Other seborrheic keratosis 04/11/2012 0 07/28/2015 Neoplasm of uncertain behavior of skin 09/29/2009 07/28/2015 Other acne 09/29/2009 07/28/2015 Hidradenitis suppurativa 09/29/200906/2015 Keloid scar 09/29/2009 07/28/2015 Hypertrophic scar 09/29/2009 07/28/2015 Pyoderma, unspecified 03/19/20092013 FOLLICULITIS///HAIR DISEASES NEC 09/10/2008 12/06/2013 Benign neoplasm of skin of t runk, except scrotum 02/19/2008 12/06/2013 Benign neoplasm of scalp and skin of neck 02/19/2008 12/06/2013 Benign neoplasm of skin of o ther and unspecified parts of face 02/19/2008 12/06/2013 Benign neoplasm of skin of u pper limb, including shoulder 02/19/2008 12/06/2013 Scar condition and fibrosis of skin 02/19/2008 12/06/2013 Unspecified hypertrophic and atrophic condition of skin 02/19/2008 12/06/2013 Inflammatory disease of breast 07/10/2007 09/14/2012 Supervision of other normal 08/24/2006 07/25/2008 Fibrosclerosis of breast 06/2015 documented as of this encounter (statuses as of 06/22/2023) [facility] History of Past illness Narrative* Problem Noted Date Diagnosed Date Resolved Date Atypical Nevus of female rm ast: R/O Dysplastic Intradermal Nevus mole (left mid chest at L medial breast) 12/06/2013 07/28/2015 Melanocytic nevi of trunk 12/06/2013 Melanocytic nevi of scalp and neck 12/06/2013 07/28/2015 Solar lentigo 12/06/2013 07/28/2015 Scars 12/06/2013 07/28/2015 Skin tag 12/06/2013 07/28/2015 Complex ovarian cyst 02/14/2013 013 Abnormal uterine bleeding 01/31/2013 Breast lump 09/14/2012 01/31/2013 Breast pain 09/14/2012 01/31/2013 Abnormal mammography 09/14/2012 014 Atypical nevus of lower leg 04/11/2012 07/28/2015 Atypical nevus of thigh 04/11/2012 09/06/2015 Melanocytic nevi of lower extremity or hip 04/11/2012 07/28/2015 Melanocytic nevi of face 04/11/201206/2015 Melanocytic nevi of upper ex tremity or shoulder 04/11/2012 07/28/2015 Callus 04/11/2012 07/28/2015 Hyperpigmentation of skin 04/11/2012 Xerosis cutis 04/11/2012 07/28/2015 Actinic skin damage 04/11/2012 07/28/20 15 Solar lentiginosis 04/11/2012 5 Other seborrheic keratosis 04/11/2012 0 07/28/2015 Neoplasm of uncertain behavior of skin 09/29/2009 07/28/2015 Other acne 09/29/2009 07/28/2015 Hidradenitis suppurativa 09/29/200906/2015 Keloid scar 09/29/2009 07/28/2015 Hypertrophic scar 09/29/2009 07/28/2015 Pyoderma, unspecified 03/19/20092013 FOLLICULITIS///HAIR DISEASES NEC 09/10/2008 12/06/2013 Benign neoplasm of skin of t runk, except scrotum 02/19/2008 12/06/2013 Benign neoplasm of scalp and skin of neck 02/19/2008 12/06/2013 Benign neoplasm of skin of o ther and unspecified parts of face 02/19/2008 12/06/2013 Benign neoplasm of skin of u pper limb, including shoulder 02/19/2008 12/06/2013 Scar condition and fibrosis of skin 02/19/2008 12/06/2013 Unspecified hypertrophic and atrophic condition of skin 02/19/2008 12/06/2013 Inflammatory disease of breast 07/10/2007 09/14/2012 Supervision of other normal 08/24/2006 07/25/2008 Fibrosclerosis of breast 06/2015 documented as of this encounter (statuses as of 07/21/2023) [facility] History of Past illness Narrative* Problem Noted Date Diagnosed Date Resolved Date Atypical Nevus of female rm ast: R/O Dysplastic Intradermal Nevus mole (left mid chest at L medial breast) 12/06/2013 07/28/2015 Melanocytic nevi of trunk 12/06/2013 Melanocytic nevi of scalp and neck 12/06/2013 07/28/2015 Solar lentigo 12/06/2013 07/28/2015 Scars 12/06/2013 07/28/2015 Skin tag 12/06/2013 07/28/2015 Complex ovarian cyst 02/14/2013 013 Abnormal uterine bleeding 01/31/2013 Breast lump 09/14/2012 01/31/2013 Breast pain 09/14/2012 01/31/2013 Abnormal mammography 09/14/2012 014 Atypical nevus of lower leg 04/11/2012 07/28/2015 Atypical nevus of thigh 04/11/201206/2015 Melanocytic nevi of lower extremity or hip 04/11/2012 07/28/2015 Melanocytic nevi of face 04/11/201206/2015 Melanocytic nevi of upper ex tremity or shoulder 04/11/2012 07/28/2015 Callus 04/11/2012 07/28/2015 Hyperpigmentation of skin 04/11/2012 Xerosis cutis 04/11/2012 07/28/2015 Actinic skin damage 04/11/2012 07/28/20 15 Solar lentiginosis 04/11/2012 5 Other seborrheic keratosis 04/11/2012 0 07/28/2015 Neoplasm of uncertain behavior of skin 09/29/2009 07/28/2015 Other acne 09/29/2009 07/28/2015 Hidradenitis suppurativa 09/29/200906/2015 Keloid scar 09/29/2009 07/28/2015 Hypertrophic scar 09/29/2009 07/28/2015 Pyoderma, unspecified 03/19/20092013 FOLLICULITIS///HAIR DISEASES NEC 09/10/2008 12/06/2013 Benign neoplasm of skin of t runk, except scrotum 02/19/2008 12/06/2013 Benign neoplasm of scalp and skin of neck 02/19/2008 12/06/2013 Benign neoplasm of skin of o ther and unspecified parts of face 02/19/2008 12/06/2013 Benign neoplasm of skin of u pper limb, including shoulder 02/19/2008 12/06/2013 Scar condition and fibrosis of skin 02/19/2008 12/06/2013 Unspecified hypertrophic and atrophic condition of skin 02/19/2008 12/06/2013 Inflammatory disease of breast 07/10/2007 09/14/2012 Supervision of other normal 08/24/2006 07/25/2008 Fibrosclerosis of breast 06/2015 documented as of this encounter (statuses as of 08/02/2023) [facility] History of Past illness Narrative* Problem Noted Date Diagnosed Date Resolved Date Atypical Nevus of female rm ast: R/O Dysplastic Intradermal Nevus mole (left mid chest at L medial breast) 12/06/2013 07/28/2015 Melanocytic nevi of trunk 12/06/2013 Melanocytic nevi of scalp and neck 12/06/2013 07/28/2015 Solar lentigo 12/06/2013 07/28/2015 Scars 12/06/2013 07/28/2015 Skin tag 12/06/2013 07/28/2015 Complex ovarian cyst 02/14/2013 013 Abnormal uterine bleeding 01/31/2013 Breast lump 09/14/2012 01/31/2013 Breast pain 09/14/2012 01/31/2013 Abnormal mammography 09/14/2012 014 Atypical nevus of lower leg 04/11/2012 07/28/2015 Atypical nevus of thigh 04/11/201206/2015 Melanocytic nevi of lower extremity or hip 04/11/2012 07/28/2015 Melanocytic nevi of face 04/11/201206/2015 Melanocytic nevi of upper ex tremity or shoulder 04/11/2012 07/28/2015 Callus 04/11/2012 07/28/2015 Hyperpigmentation of skin 04/11/2012 Xerosis cutis 04/11/2012 07/28/2015 Actinic skin damage 04/11/2012 07/28/20 15 Solar lentiginosis 04/11/2012 5 Other seborrheic keratosis 04/11/2012 0 07/28/2015 Neoplasm of uncertain behavior of skin 09/29/2009 07/28/2015 Other acne 09/29/2009 07/28/2015 Hidradenitis suppurativa 09/29/200906/2015 Keloid scar 09/29/2009 07/28/2015 Hypertrophic scar 09/29/2009 07/28/2015 Pyoderma, unspecified 03/19/20092013 FOLLICULITIS///HAIR DISEASES NEC 09/10/2008 12/06/2013 Benign neoplasm of skin of t runk, except scrotum 02/19/2008 12/06/2013 Benign neoplasm of scalp and skin of neck 02/19/2008 12/06/2013 Benign neoplasm of skin of o ther and unspecified parts of face 02/19/2008 12/06/2013 Benign neoplasm of skin of u pper limb, including shoulder 02/19/2008 12/06/2013 Scar condition and fibrosis of skin 02/19/2008 12/06/2013 Unspecified hypertrophic and atrophic condition of skin 02/19/2008 12/06/2013 Inflammatory disease of breast 07/10/2007 09/14/2012 Supervision of other normal 08/24/2006 07/25/2008 Fibrosclerosis of breast 06/2015 documented as of this encounter (statuses as of 08/03/2023) [facility] History of Past illness Narrative* Problem Noted Date Diagnosed Date Resolved Date Atypical Nevus of female rm ast: R/O Dysplastic Intradermal Nevus mole (left mid chest at L medial breast) 12/06/2013 07/28/2015 Melanocytic nevi of trunk 12/06/2013 Melanocytic nevi of scalp and neck 12/06/2013 07/28/2015 Solar lentigo 12/06/2013 07/28/2015 Scars 12/06/2013 07/28/2015 Skin tag 12/06/2013 07/28/2015 Complex ovarian cyst 02/14/2013 013 Abnormal uterine bleeding 01/31/2013 Breast lump 09/14/2012 01/31/2013 Breast pain 09/14/2012 01/31/2013 Abnormal mammography 09/14/2012 014 Atypical nevus of lower leg 04/11/2012 07/28/2015 Atypical nevus of thigh 04/11/201206/2015 Melanocytic nevi of lower extremity or hip 04/11/2012 07/28/2015 Melanocytic nevi of face 04/11/201206/2015 Melanocytic nevi of upper ex tremity or shoulder 04/11/2012 07/28/2015 Callus 04/11/2012 07/28/2015 Hyperpigmentation of skin 04/11/2012 Xerosis cutis 04/11/2012 07/28/2015 Actinic skin damage 04/11/2012 07/28/20 15 Solar lentiginosis 04/11/2012 5 Other seborrheic keratosis 04/11/2012 0 07/28/2015 Neoplasm of uncertain behavior of skin 09/29/2009 07/28/2015 Other acne 09/29/2009 07/28/2015 Hidradenitis suppurativa 09/29/200906/2015 Keloid scar 09/29/2009 07/28/2015 Hypertrophic scar 09/29/2009 07/28/2015 Pyoderma, unspecified 03/19/20092013 FOLLICULITIS///HAIR DISEASES NEC 09/10/2008 12/06/2013 Benign neoplasm of skin of t runk, except scrotum 02/19/2008 12/06/2013 Benign neoplasm of scalp and skin of neck 02/19/2008 12/06/2013 Benign neoplasm of skin of o ther and unspecified parts of face 02/19/2008 12/06/2013 Benign neoplasm of skin of u pper limb, including shoulder 02/19/2008 12/06/2013 Scar condition and fibrosis of skin 02/19/2008 12/06/2013 Unspecified hypertrophic and atrophic condition of skin 02/19/2008 12/06/2013 Inflammatory disease of breast 07/10/2007 09/14/2012 Supervision of other normal 08/24/2006 07/25/2008 Fibrosclerosis of breast 06/2015 documented as of this encounter (statuses as of 09/13/2023) [facility] History of Past illness Narrative* Problem Noted Date Diagnosed Date Resolved Date Atypical Nevus of female rm ast: R/O Dysplastic Intradermal Nevus mole (left mid chest at L medial breast) 12/06/2013 07/28/2015 Melanocytic nevi of trunk 12/06/2013 Melanocytic nevi of scalp and neck 12/06/2013 07/28/2015 Solar lentigo 12/06/2013 07/28/2015 Scars 12/06/2013 07/28/2015 Skin tag 12/06/2013 07/28/2015 Complex ovarian cyst 02/14/2013 013 Abnormal uterine bleeding 01/31/2013 Breast lump 09/14/2012 01/31/2013 Breast pain 09/14/2012 01/31/2013 Abnormal mammography 09/14/2012 014 Atypical nevus of lower leg 04/11/2012 07/28/2015 Atypical nevus of thigh 04/11/201206/2015 Melanocytic nevi of lower extremity or hip 04/11/2012 07/28/2015 Melanocytic nevi of face 04/11/201206/2015 Melanocytic nevi of upper ex tremity or shoulder 04/11/2012 07/28/2015 Callus 04/11/2012 07/28/2015 Hyperpigmentation of skin 04/11/2012 Xerosis cutis 04/11/2012 07/28/2015 Actinic skin damage 04/11/2012 07/28/20 15 Solar lentiginosis 04/11/2012 5 Other seborrheic keratosis 04/11/2012 0 07/28/2015 Neoplasm of uncertain behavior of skin 09/29/2009 07/28/2015 Other acne 09/29/2009 07/28/2015 Hidradenitis suppurativa 09/29/200906/2015 Keloid scar 09/29/2009 07/28/2015 Hypertrophic scar 09/29/2009 07/28/2015 Pyoderma, unspecified 03/19/20092013 FOLLICULITIS///HAIR DISEASES NEC 09/10/2008 12/06/2013 Benign neoplasm of skin of t runk, except scrotum 02/19/2008 12/06/2013 Benign neoplasm of scalp and skin of neck 02/19/2008 12/06/2013 Benign neoplasm of skin of o ther and unspecified parts of face 02/19/2008 12/06/2013 Benign neoplasm of skin of u pper limb, including shoulder 02/19/2008 12/06/2013 Scar condition and fibrosis of skin 02/19/2008 12/06/2013 Unspecified hypertrophic and atrophic condition of skin 02/19/2008 12/06/2013 Inflammatory disease of breast 07/10/2007 09/14/2012 Supervision of other normal 08/24/2006 07/25/2008 Fibrosclerosis of breast 06/2015 documented as of this encounter (statuses as of 10/12/2023) [facility] Obesity, Class I, BMI 30-34.9- Primary Obesity, unspecified [facility] Diagnosis Travel advice encounter- Primary Other specified counseling documented in this encounter [facility] note* Diagnosis Recurrent major depressive disorder, in partial remission (HCC)- Primary KATHIE (generalized anxiety disorder) Generalized anxiety disorder documented in this encounter [facility] note* Diagnosis Recurrent major depressive disorder, in partial remission (HCC) KATHIE (generalized anxiety disorder) Generalized anxiety disorder documented in this encounter [facility] note* Diagnosis Depression, unspecified depression type- Primary Fatigue, unspecified type Encounter for screening mammogram for malignant neoplasm of breast Other screening mammogram Borderline abnormal thyroid function test Nonspecific abnormal results of thyroid function study Need for Tdap vaccination Need for prophylactic vaccination with combined iiroyxblbh-gckzajc-avnhosgcu (DTP) vaccine Obesity, Class I, BMI 30-34.9 Obesity, unspecified KATHIE (generalized anxiety disorder) Generalized anxiety disorder documented in this encounter [facility] note* Diagnosis Gross hematuria- Primary documented in this encounter [facility] note* Diagnosis Recurrent major depressive disorder, in partial remission (HCC)- Primary Panic disorder without agoraphobia PTSD (post-traumatic stress disorder) Posttraumatic stress disorder KATHIE (generalized anxiety disorder) Generalized anxiety disorder [facility] Diagnosis Gross hematuria- Primary Painless hematuria Hematuria, unspecified GERD without esophagitis Esophageal reflux KATHIE (generalized anxiety disorder) Generalized anxiety disorder documented in this encounter [facility] note* Diagnosis Viral illness- Primary Unspecified viral infection, in conditions classified elsewhere and of unspecified site documented in this encounter [facility] note* Diagnosis OME (otitis media with effusion), bilateral- Primary Viral URI with cough Acute upper respiratory infections of unspecified site Redness of eye, left Redness or discharge of eye [facility] Diagnosis Decreased hearing of both ears- Primary [facility] Diagnosis Recurrent major depressive disorder, in partial remission (HCC) KATHIE (generalized anxiety disorder) Generalized anxiety disorder documented in this encounter [facility] note* Diagnosis Diarrhea, unspecified type- Primary GERD without esophagitis Esophageal reflux 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 Dyslipidemia Other and unspecified hyperlipidemia Painless hematuria Hematuria, unspecified KATHIE (generalized anxiety disorder) Generalized anxiety disorder [facility] Diagnosis Recurrent infections- Primary Unspecified infectious and parasitic diseases Need for vaccination Need for prophylactic vaccination and inoculation against unspecified single disease Chronic rhinitis Mild intermittent reactive airway disease without complication Toxic effect of venom, accidental or unintentional, initial encounter documented in this encounter [facility] note* Diagnosis GERD without esophagitis Esophageal reflux documented in this encounter [facility] note* Diagnosis PTSD (post-traumatic stress disorder)- Primary Posttraumatic stress disorder MDD (major depressive disorder), recurrent episode, moderate (HCC) Major depressive disorder, recurrent episode, moderate KATHIE (generalized anxiety disorder) Generalized anxiety disorder documented in this encounter [facility] note* Diagnosis Recurrent major depressive disorder, in partial remission (HCC) KATHIE (generalized anxiety disorder) Generalized anxiety disorder documented in this encounter [facility] note* Diagnosis Diarrhea, unspecified type- Primary Encounter for screening mammogram for malignant neoplasm of breast Other screening mammogram GERD without esophagitis Esophageal reflux KATHIE (generalized anxiety disorder) Generalized anxiety disorder Decreased hearing of both ears Fatigue, unspecified type Depression, unspecified depression type documented in this encounter [facility] for [facility] (narrative)* Diagnostic Procedure Only (Routine) - Pending Review Specialty Diagnoses / Procedures Referred By Contac t Referred To Contact [facility] Diagnoses Encounter for screening mammogram for malignant neoplasm of breast Procedures JULIENNE SCREENING W ANDREAS SCREENING DIGITAL BREAST TOMOSYNTHESIS BI SCREENING MAMMOGRAPHY BI 2-VIEW BREAST INC To Webber DO [address] [place] [address] [facility] [address] [place] [id number] Referral ID Status Reason Start Date Expiration Date Visits Requested Visits Authorized [id number] Pending Review Auto-Generat ed Referral 3 11/01/2024 1 1 [facility] Summary Purpose Family History No Family History Records Found Grandmother Name Dates Details Family history of malignant neoplasm of breast(V16.3, Z80.3) Status:Active Grandfather Name Dates Details Family history of malignant neoplasm of colon(V16.0, Z80.0) Status:Active Family history of malignant neoplasm of esophagus(V16.0, Z80.0) Status:Active Advance Directives No Advanced Directives Records FoundDocuments on File Type Date Recorded Patient Telephone Directory Deliverer Expl anation Advance Directive(s) 03/24/2020 11:58 PM Latest Code Status on File Code Status Date Activated Date Inactivated Comments Full Code 03/31/2020 8:30 AM 04/06/2020 9:57 PM Full Code Order Discussed With: Patient Full Code 03/25/2020 9:19 AM 03/31/2020 8:30 AM Latest Code Status on File Code Status Date Activated Date Inactivated Comments Full Code 03/31/2020 8:30 AM 04/06/2020 9:57 PM Full Code 03/25/2020 9:19 AM 03/31/2020 8:30 AM Latest Code Status on File Code Status Date Activated Date Inactivated Comments Full Code 03/31/2020 8:30 AM 04/06/2020 9:57 PM Question Answer Comments Full Code Order Discussed With: Patient Code Status History Code Status Date Activated Date Inactivated Comments Full Code 03/25/2020 9:19 AM 03/31/2020 8:30 AM Question Answer Comments Full Code Order Discussed With: Patient Latest Code Status on File Code Status Date Activated Date Inactivated Comments Full Code 03/31/2020 8:30 AM 04/06/2020 9:57 PM Question Answer Comments Full Code Order Discussed With: Patient Code Status History Code Status Date Activated Date Inactivated Comments Full Code 03/25/2020 9:19 AM 03/31/2020 8:30 AM Question Answer Comments Full Code Order Discussed With: Patient Latest Code Status on File Code Status Date Activated Date Inactivated Comments Full Code 03/31/2020 8:30 AM 04/06/2020 9:57 PM Question Answer Comments Full Code Order Discussed With: Patient Code Status History Code Status Date Activated Date Inactivated Comments Full Code 03/25/2020 9:19 AM 03/31/2020 8:30 AM Question Answer Comments Full Code Order Discussed With: Patient Hospital Course Note HNO ID: [id number] Author: Dennis Godfrey MD Service: Hospital Medicine Author Type: Physician Type: Discharge Summary Filed: 04/06/2020 12:55 PM Note Text: DISCHARGE SUMMARY PATIENT NAME: Brice Gomez Code Status: Full Code Highest Readmission Risk Score: 28 The 30 day readmissions risk score is derived from an internally validated risk model which evaluates patient level characteristics, utilization history, medication orders and lab results up until the day of discharge. Patients with a score of 40 or above are considered highest risk for readmission. Specific patient level drivers will be listed at the bottom of the summary. Admission Information Admission Information ADMIT DATE: 03/24/2020 DISCHARGE DATE: 04/06/2020 MY DOCTORS AND MEDICAL TEAM: My Main Hospital Doctor: Antony Godfrey, * Primary Care Provider: To Matthews DO My Medical Team Members: Treatment Team: Attending Provider: Antony Godfrey MD Consulting: Elian Philip Consulting: (more content not included)... Reason for Referral Specialty Diagnoses / Procedures Referred By Ирина kelly Referred To Contact Diagnoses Obesity, Class I, BMI 30-34.9 To Matthews DO [address] [place] [address] Referral ID Status Reason Start Date Expiration Date V isits Requested Visits Authorized [id number] Pending Review 1 1 Specialty Diagnoses / Procedures Referred By Ирина t Referred To Contact [facility] Diagnoses Encounter for screening mammogram for malignant neoplasm of breast Procedures JULIENNE SCREENING W ANDREAS SCREENING DIGITAL BREAST TOMOSYNTHESIS BI SCREENING MAMMOGRAPHY BI 2-VIEW BREAST INC CAD To Matthews, [address] [place] [address] [facility] [address] [place] [address] Referral ID Status Reason Start Date Expiration Date Visits Requested Visits Authorized [id number] Pending Review Auto-Generat ed Referral 08/10/2022 09/09/2023 1 1 Specialty Diagnoses / Procedures Referred By Ирина t Referred To Contact [facility] Diagnoses HLA B27 (HLA B27 positive) Procedures HLA-B27 PCR HLA I LOW RESOLUTION ONE ANTIGEN EQUIVALENT EACH To Matthews DO [address] [place] [address] [facility] [address] [place] [address] Referral ID Status Reason Start Date Expiration Date Visits Requested Visits Authorized [id number] Authorized PCP Requested Referral Auto-Generate d Referral 01/11/2023 04/11/2023 1 1 Health Concerns Infection Onset Date Last Indicated Resolved Time COVID-19 Rule-Out 10/27/2022 10/27/2022 Infection Onset Date Last Indicated Resolved Time COVID-19 Rule-Out 10/27/2022 10/27/2022 10/27/2022 7:16 PM EST Additional Source Comments INFORMATION SOURCE (unrecogn ized section and content) DATE CREATED AUTHOR AUTHOR'S ORGANIZ ATION 03/20/2021 [employer] DATE CREATED AUTHOR AUTHOR'S ORGANIZ ATION 05/28/2021 [facility] DATE CREATED AUTHOR AUTHOR'S ORGANIZ ATION 06/19/2021 [facility] DATE CREATED AUTHOR AUTHOR'S ORGANIZ ATION 09/14/2023 [facility] DATE CREATED AUTHOR AUTHOR'S ORGANIZ ATION 10/14/2023 [facility] Source Comments (unrecognize d section and content) In the event this informatio n is protected by the Federal Confidentiality of Alcohol and Drug Abuse Patient Records regulations: The Federal rules restrict any use of the information to criminally investigate or prosecute any alcohol or drug abuse patient.[facility] the event this information is protected by the Federal Confidentiality of Alcohol and Drug Abuse Patient Records regulations: The Federal rules restrict any use of the information to criminally investigate or prosecute any alcohol or drug abuse patient.[facility] the event this information is protected by the Federal Confidentiality of Alcohol and Drug Abuse Patient Records regulations: The Federal rules restrict any use of the information to criminally investigate or prosecute any alcohol or drug abuse patient.[facility] the event this information is protected by the Federal Confidentiality of Alcohol and Drug Abuse Patient Records regulations: The Federal rules restrict any use of the information to criminally investigate or prosecute any alcohol or drug abuse patient.[facility] the event this information is protected by the Federal Confidentiality of Alcohol and Drug Abuse Patient Records regulations: The Federal rules restrict any use of the information to criminally investigate or prosecute any alcohol or drug abuse patient.[facility] the event this information is protected by the Federal Confidentiality of Alcohol and Drug Abuse Patient Records regulations: The Federal rules restrict any use of the information to criminally investigate or prosecute any alcohol or drug abuse patient.[facility] the event this information is protected by the Federal Confidentiality of Alcohol and Drug Abuse Patient Records regulations: The Federal rules restrict any use of the information to criminally investigate or prosecute any alcohol or drug abuse patient.[facility] the event this information is protected by the Federal Confidentiality of Alcohol and Drug Abuse Patient Records regulations: The Federal rules restrict any use of the information to criminally investigate or prosecute any alcohol or drug abuse patient.[facility] the event this information is protected by the Federal Confidentiality of Alcohol and Drug Abuse Patient Records regulations: The Federal rules restrict any use of the information to criminally investigate or prosecute any alcohol or drug abuse patient.[facility] the event this information is protected by the Federal Confidentiality of Alcohol and Drug Abuse Patient Records regulations: The Federal rules restrict any use of the information to criminally investigate or prosecute any alcohol or drug abuse patient.[facility] the event this information is protected by the Federal Confidentiality of Alcohol and Drug Abuse Patient Records regulations: The Federal rules restrict any use of the information to criminally investigate or prosecute any alcohol or drug abuse patient.[facility] the event this information is protected by the Federal Confidentiality of Alcohol and Drug Abuse Patient Records regulations: The Federal rules restrict any use of the information to criminally investigate or prosecute any alcohol or drug abuse patient.[facility] the event this information is protected by the Federal Confidentiality of Alcohol and Drug Abuse Patient Records regulations: The Federal rules restrict any use of the information to criminally investigate or prosecute any alcohol or drug abuse patient.[facility] the event this information is protected by the Federal Confidentiality of Alcohol and Drug Abuse Patient Records regulations: The Federal rules restrict any use of the information to criminally investigate or prosecute any alcohol or drug abuse patient.[facility] HospitalIn the event this information is protected by the Federal Confidentiality of Alcohol and Drug Abuse Patient Records regulations: The Federal rules restrict any use of the information to criminally investigate or prosecute any alcohol or drug abuse patient.[facility] HospitalIn the event this information is protected by the Federal Confidentiality of Alcohol and Drug Abuse Patient Records regulations: The Federal rules restrict any use of the information to criminally investigate or prosecute any alcohol or drug abuse patient.[facility] HospitalIn the event this information is protected by the Federal Confidentiality of Alcohol and Drug Abuse Patient Records regulations: The Federal rules restrict any use of the information to criminally investigate or prosecute any alcohol or drug abuse patient.[facility] HospitalIn the event this information is protected by the Federal Confidentiality of Alcohol and Drug Abuse Patient Records regulations: The Federal rules restrict any use of the information to criminally investigate or prosecute any alcohol or drug abuse patient.[facility] HospitalIn the event this information is protected by the Federal Confidentiality of Alcohol and Drug Abuse Patient Records regulations: The Federal rules restrict any use of the information to criminally investigate or prosecute any alcohol or drug abuse patient.[facility] HospitalIn the event this information is protected by the Federal Confidentiality of Alcohol and Drug Abuse Patient Records regulations: The Federal rules restrict any use of the information to criminally investigate or prosecute any alcohol or drug abuse patient.[facility] HospitalIn the event this information is protected by the Federal Confidentiality of Alcohol and Drug Abuse Patient Records regulations: The Federal rules restrict any use of the information to criminally investigate or prosecute any alcohol or drug abuse patient.[facility] HospitalIn the event this information is protected by the Federal Confidentiality of Alcohol and Drug Abuse Patient Records regulations: The Federal rules restrict any use of the information to criminally investigate or prosecute any alcohol or drug abuse patient.[facility] HospitalIn the event this information is protected by the Federal Confidentiality of Alcohol and Drug Abuse Patient Records regulations: The Federal rules restrict any use of the information to criminally investigate or prosecute any alcohol or drug abuse patient.[facility] HospitalIn the event this information is protected by the Federal Confidentiality of Alcohol and Drug Abuse Patient Records regulations: The Federal rules restrict any use of the information to criminally investigate or prosecute any alcohol or drug abuse patient.[facility] HospitalIn the event this information is protected by the Federal Confidentiality of Alcohol and Drug Abuse Patient Records regulations: The Federal rules restrict any use of the information to criminally investigate or prosecute any alcohol or drug abuse patient.[facility] HospitalIn the event this information is protected by the Federal Confidentiality of Alcohol and Drug Abuse Patient Records regulations: The Federal rules restrict any use of the information to criminally investigate or prosecute any alcohol or drug abuse patient.[facility] HospitalIn the event this information is protected by the Federal Confidentiality of Alcohol and Drug Abuse Patient Records regulations: The Federal rules restrict any use of the information to criminally investigate or prosecute any alcohol or drug abuse patient.[facility] HospitalIn the event this information is protected by the Federal Confidentiality of Alcohol and Drug Abuse Patient Records regulations: The Federal rules restrict any use of the information to criminally investigate or prosecute any alcohol or drug abuse patient.[facility] HospitalIn the event this information is protected by the Federal Confidentiality of Alcohol and Drug Abuse Patient Records regulations: The Federal rules restrict any use of the information to criminally investigate or prosecute any alcohol or drug abuse patient.[facility] HospitalIn the event this information is protected by the Federal Confidentiality of Alcohol and Drug Abuse Patient Records regulations: The Federal rules restrict any use of the information to criminally investigate or prosecute any alcohol or drug abuse patient.[facility] HospitalIn the event this information is protected by the Federal Confidentiality of Alcohol and Drug Abuse Patient Records regulations: The Federal rules restrict any use of the information to criminally investigate or prosecute any alcohol or drug abuse patient.[facility] HospitalIn the event this information is protected by the Federal Confidentiality of Alcohol and Drug Abuse Patient Records regulations: The Federal rules restrict any use of the information to criminally investigate or prosecute any alcohol or drug abuse patient.[facility] HospitalIn the event this information is protected by the Federal Confidentiality of Alcohol and Drug Abuse Patient Records regulations: The Federal rules restrict any use of the information to criminally investigate or prosecute any alcohol or drug abuse patient.[facility] HospitalIn the event this information is protected by the Federal Confidentiality of Alcohol and Drug Abuse Patient Records regulations: The Federal rules restrict any use of the information to criminally investigate or prosecute any alcohol or drug abuse patient.[facility] HospitalIn the event this information is protected by the Federal Confidentiality of Alcohol and Drug Abuse Patient Records regulations: The Federal rules restrict any use of the information to criminally investigate or prosecute any alcohol or drug abuse patient.[facility] HospitalIn the event this information is protected by the Federal Confidentiality of Alcohol and Drug Abuse Patient Records regulations: The Federal rules restrict any use of the information to criminally investigate or prosecute any alcohol or drug abuse patient.[facility] HospitalIn the event this information is protected by the Federal Confidentiality of Alcohol and Drug Abuse Patient Records regulations: The Federal rules restrict any use of the information to criminally investigate or prosecute any alcohol or drug abuse patient.[facility] HospitalIn the event this information is protected by the Federal Confidentiality of Alcohol and Drug Abuse Patient Records regulations: The Federal rules restrict any use of the information to criminally investigate or prosecute any alcohol or drug abuse patient.[facility] HospitalIn the event this information is protected by the Federal Confidentiality of Alcohol and Drug Abuse Patient Records regulations: The Federal rules restrict any use of the information to criminally investigate or prosecute any alcohol or drug abuse patient.[facility] HospitalIn the event this information is protected by the Federal Confidentiality of Alcohol and Drug Abuse Patient Records regulations: The Federal rules restrict any use of the information to criminally investigate or prosecute any alcohol or drug abuse patient.[facility] HospitalIn the event this information is protected by the Federal Confidentiality of Alcohol and Drug Abuse Patient Records regulations: The Federal rules restrict any use of the information to criminally investigate or prosecute any alcohol or drug abuse patient.[facility] Reason for Visit (unrecogniz ed section and content) Reason Onset Date Comments Refill Request 03/05/2022 Reason Onset Date Comments Refill Request 03/08/2022 Reason Comments Medication Request copied from [employer] Reason Comments Anxiety Depression Follow Up Specialty Diagnoses / Procedures Referred By Contac t Referred To Contact Psychiatry / ADULT PSYCHIATRY Diagnoses med check Procedures VIDEO PSYC/PSYL EST MD Angel Ramirez Lara W, DO [address] [place] [id number] Referral ID Status Reason Start Date Expiration Date V isits Requested Visits Authorized [id number] Authorized 11/20/2021 11/19/2022 99 99 Reason Comments Anxiety Follow Up Specialty Diagnoses / Procedures Referred By Contac t Referred To Contact Psychiatry / ADULT PSYCHIATRY Diagnoses virtual follow up Procedures VIDEO PSYC/PSYL EST Feli Benz, DO [address] [place] [address] Feli Benz, [address] [place] [address] Referral ID Status Reason Start Date Expiration Date V isits Requested Visits Authorized [id number] Pending Review 07/14/2022 10/12/2022 99 99 Reason Comments Weight Loss dizziness Reason Comments Hematuria Noticed blood in her urine the last few hours Reason Comments Results Reason Comments Patient Update Reason Comments Medication Problem Patient Update Patient Question Reason Comments Anxiety Depression Specialty Diagnoses / Procedures Referred By Contac t Referred To Contact Psychiatry / ADULT PSYCHIATRY Diagnoses med check Procedures VIDEO PSYC/PSYL EST Self Feli Benz, DO [address] [place] [address] Reason Comments Follow Up Reason Comments Cough Pt reported chest co ngestion, bilateral ear decreased hearing, x5 days. Reason Comments Cough eyes red x 6 days, s een yesterday at ent Reason Comments Recheck Follow up bilateral ears; L greater than R Referral ID Status Reason Start Date Expiration Date V isits Requested Visits Authorized [id number] Pending Review 11/24/2022 11/19/2023 99 99 Reason Comments Medication Problem Reason Comments appointment needed Reason Comments Follow Up Reason Comments new patient low IgE level Reason Onset Date Comments Refill Request 01/20/2023 Reason Onset Date Comments Refill Request 03/17/2023 Reason Onset Date Comments Refill Request 03/20/2023 Reason Onset Date Comments Refill Request 06/22/2023 Reason Onset Date Comments Refill Request 08/01/2023 Specialty Diagnoses / Procedures Referred By Ирина kelly Referred To Contact Psychiatry / ADULT PSYCHIATRY Diagnoses virtual follow up Procedures VIDEO PSYC/PSYL EST Feli Benz, DO [address] [place] [address] Feli Benz, DO [address] [place] [address] Reason Comments Follow Up R Axillary Cyst Care Teams (unrecognized sec tion and content) [employer] Operator Relationship Specialty Start Date End Date To Matthews, DO [address] [place] [address] PCP - General Family Practice 01/14/13 [employer] Operator Relationship Specialty Start Date End Date To Matthews DO [address] [place] [address] PCP - General Family Practice 01/14/13 [employer] Operator Relationship Specialty Start Date End Date To Matthews DO [address] [place] [address] PCP - General Family Practice 01/14/13 [employer] Press Operator Relationship Specialty Start Date End Date To Matthews, DO [address] [place] [address] PCP - General Family Practice 01/14/13 [employer] Operator Relationship Specialty Start Date End Date To Matthews DO [address] [place] [address] PCP - General Family Practice 01/14/13 [employer] Operator Relationship Specialty Start Date End Date To Matthews, DO [address] [place] [address] PCP - General Family Practice 01/14/13 [employer] Operator Relationship Specialty Start Date End Date To Matthews, DO [address] [place] [address] PCP - General Family Medicine 01/14/13 [employer] Operator Relationship Specialty Start Date End Date To Matthews, DO [address] [place] [address] PCP - General Family Medicine 01/14/13 [employer] Operator Relationship Specialty Start Date End Date To Matthews, DO [address] [place] [address] PCP - General Family Medicine 01/14/13 [employer] Operator Relationship Specialty Start Date End Date To Matthews, DO [address] [place] [address] PCP - General Family Medicine 01/14/13 [employer] Operator Relationship Specialty Start Date End Date To Matthews, DO [address] [place] [address] PCP - General Family Medicine 01/14/13 [employer] Operator Relationship Specialty Start Date End Date To Matthews, DO [address] [place] [address] PCP - General Family Medicine 01/14/13 [employer] Operator Relationship Specialty Start Date End Date To Matthews, DO [address] [place] [address] PCP - General Family Medicine 01/14/13 [employer] Operator Relationship Specialty Start Date End Date To Matthews, DO [address] [place] [address] PCP - General Family Medicine 01/14/13 [employer] Press Operator Relationship Specialty Start Date End Date To Matthews, DO [address] [facility] [place] [address] PCP - General Family Medicine 01/14/13 Apple Press Operator Relationship Specialty Start Date End Date To Matthews, DO [address] [facility] [place] [address] PCP - General Family Medicine 01/14/13 Apple Press Operator Relationship Specialty Start Date End Date To Matthews, DO [address] [facility] [place] [address] PCP - General Family Medicine 01/14/13 Apple Press Operator Relationship Specialty Start Date End Date To Matthews, DO [address] [facility] [place] [address] PCP - General Family Medicine 01/14/13 Apple Press Operator Relationship Specialty Start Date End Date To Matthews, DO [address] [facility] [place] [address] PCP - General Family Medicine 01/14/13 Apple Press Operator Relationship Specialty Start Date End Date To Matthews, DO [address] [facility] [place] [address] PCP - General Family Medicine 01/14/13 Apple Press Operator Relationship Specialty Start Date End Date To Matthews, DO [address] [place] [address] PCP - General Family Medicine 01/14/13 [employer] Press Operator Relationship Specialty Start Date End Date To Matthews, DO [address] [place] [address] PCP - General Family Medicine 01/14/13 Apple Press Operator Relationship Specialty Start Date End Date To Matthews DO [address] [facility] [place] [address] PCP - General Family Medicine 01/14/13 Apple Press Operator Relationship Specialty Start Date End Date To Matthews DO [address] [facility] [place] [address] PCP - General Family Medicine 01/14/13 [employer] Press Operator Relationship Specialty Start Date End Date To Matthews DO [address] [facility] [place] [address] PCP - General Family Medicine 01/14/13 Apple Press Operator Relationship Specialty Start Date End Date To Matthews DO [address] [facility] [place] [address] PCP - General Family Medicine 01/14/13 [employer] Press Operator Relationship Specialty Start Date End Date To Matthews DO [address] [facility] [place] [address] PCP - General Family Medicine 01/14/13 Apple Press Operator Relationship Specialty Start Date End Date To Matthews DO [address] [facility] [place] [address] PCP - General Family Medicine 01/14/13 Apple Press Operator Relationship Specialty Start Date End Date To Matthews DO [address] [facility] [place] [address] PCP - General Family Medicine 01/14/13 FOR RECORDS PERTAINING TO PATIENTS WHO ARE OR HAVE BEEN ENROLLED IN A CHEMICAL DEPENDENCY/SUBSTANCEABUSE PROGRAM, SOME INFORMATION MAY BE OMITTED. This clinical summary was aggregated from multiple sources. Caution should be exercised in using it in the provision of clinical care. This summary normalizes information from multiple sources, and as a consequence, information in this document may materially change the coding, format and clinical context of patient data. In addition, data may be omitted in some cases. CLINICAL DECISIONS SHOULD BE BASED ON THE PRIMARY CLINICAL RECORDS. [facility] provides no warranty or guarantee of the accuracy or completeness of information in this document.
== END 2023-10-27 23:59 | disposition home or self-care (01) ==
LOC: EN 08:26
PROVIDERS: PCP Student in an Organized Health Care Education/Training Program; Referring Provider Student in an Organized Health Care Education/Training Program; Visit Provider Internal Medicine Gastroenterology
PROC: F00ZJWZ Instrumental Swallowing and Oral Function Assessment using Swallowing Equipment (ICD-10-PCS; CPT 43235; principal; 2023-10-27 08:25)
DX: K22.2 Esophageal obstruction (principal)
CPT/HCPCS: 91010

== ENCOUNTER → 2023-11-06 | Outpatient (CLI) | payer OTHER, SELFPAY ==
--- NOTE | 2023-11-06 14:03 | BI_ITS ---
MAMMOGRAPHY - BILATERAL SCREENING REASON FOR EXAM: Female, 43 years old. Routine annual screening examination. PERTINENT HISTORY: Grandmother with breast cancer. TECHNIQUE: Digital bilateral breast andreas (3D mammographic acquisition) in the CC and MLO projections. 2-D mediolateral oblique (MLO) and craniocaudad (CC) views of both breasts were obtained. CAD: Full Field Digital Mammography with Computer Added Detection was performed. COMPARISON: Comparison is made with prior study dated November 03, 2022 and October 20, 2021. FINDINGS: Breast Composition: There are scattered areas of fibroglandular density. There are no dominant masses or suspicious calcifications. Stable benign-appearing bilateral axillary lymph nodes. No other significant abnormalities are identified. There has been no significant change since the prior study. BI/SCRN MAMM (CAD)W/ANDREAS BILAT IMPRESSION: Stable bilateral screening mammogram. Yearly follow-up mammogram recommended. (A) ASSESSMENT CATEGORY: BIRADS Category 2: Benign. A letter regarding these results will be sent to the patient by the facility within 30 days. Approximately 10% of breast cancers are not detected by mammography. A normal mammogram should not delay biopsy of a clinically suspicious abnormality. [id number] Electronically Signed: Nabil Talley MD at 14:48 EST ,
== END | disposition home or self-care (01) ==
LOC: OPBI 14:02
PROVIDERS: PCP Student in an Organized Health Care Education/Training Program; Referring Provider Student in an Organized Health Care Education/Training Program; Visit Provider Student in an Organized Health Care Education/Training Program
DX: Z12.31 Encounter for screening mammogram for malignant neoplasm of breast (principal); Z80.3 Family history of malignant neoplasm of breast
CPT/HCPCS: 77063; 77067

== ENCOUNTER 2023-11-14 13:41 | Day surgery (SDC) | payer OTHER, SELFPAY ==
[2023-11-14] MEDS: Lactated Ringers 1,000 ML 15 ML IV (14:07)
[2023-11-14 14:08] VITALS: BP 127/87; PULSE 79; RESP 18; TEMP 36.4; O2SAT 100; BMI 29.4
--- NOTE | 2023-11-14 15:31 | PCM.HP.BLA ---
History and Physical Date of Admission: 11/14/23 42 F who presents to the office today for PMH post COVID myocarditis; anxiety/depression; asthma; cystitis; SVT. PSH right hemicolectomy ; left oophorectomy . FH colon cancer, maternal grandfather; esophageal cancer, paternal grandfather. Prior workup: ? EGD and colonoscopy 10.23.20 Dr. Anaya. EGD noting gastritis without specimens collected. ? Esophageal manometry, pH monitoring. Colonoscopy found likely malignant tumor of proximal ascending colon; sigmoid diverticulosis; nonbleeding internal hemorrhoids. 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 Recommend right hemicolectomy Right hemicolectomy 12.28.[address] Mckinney with 2 day hospitalization. [facility] presentation 01.11.21 with abdominal pain diagnosed as postoperative and ruptured left ovarian cyst. Colectomy complication of hernia for which Dr. Karli Pascual performed large periumbilical and infraumbilical ventral hernia incisional hernia repair 06.28.21 with hospitalization until 06.30.21. Hernia repair complicated with formation of seroma causing abdominal pain and requiring placement of pigtail catheter 07.14.21 with negative cultures. Drain pulled 07.19.21. ? Colonoscopy 11.10.21 Dr. Pascual noting patent end-to-end ileo-colonic anastomosis. No specimens collected. *BGI established OV 12.06.22. Has been changed diet to keto/low carb which has been helpful in reducing diarrhea with urgency and related incontinence. GERD an issue but well maintain on PPI 40mg with titration downward resulting in recurrence of symptoms. Plan biochemical workup and stool testing. EGD and colonoscopy; Brice chose to pursue EGD only. Biochemical ESR, CMP, CRP, AMA, ASM, FERNANDO comp, ANCA, celiac, IgGAM, EDDIE without pertinent abnormality. IgE L2, IBD suggestive of Crohn?s (atypical pANCA, AMCA) Stool study lactoferrin WNL Referred to Dr. Joyce for IgE level. Capsule endoscopy 01.30.23 noting stomach to have increased bile with associated erythema and irritation; small bowel focal erythema without ulceration or significant inflammation; IC valve noted to have edema. ? Azathioprine start EGD 02.16.23 Way deployed; irregular Zline 32cm without metaplasia; non-bleeding erosive gastropathy, gastritis; erythematous duodenopathy, Chikis gland hyperplasia. Biochemical CBC, CMP, LFT, Lipid without pertinent abnormality. 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 Low concern for immunodeficiency though will perform further biochemical testing approximately 02.19.23. OV 07.06.23 Reports that she has been doing very well without symptoms to address at this time; Has been doing a keto day on/off and notes days with increased carbs cause her to have symptoms. Has been taking medication as prescribed. Needs to return to Dr. Joyce yet. ROS Const Constitutional: Positive for fever(s) ( feel like it ), headache(s) ( full pressure ), sleep problems and change in appetite (eating less); No body ache, chills, fatigue or abnormal sleep pattern Eyes Eyes: No blurry vision, change in vision, double vision, irritation, discharge or dry eyes ENT ENT: Positive for sinus pressure, nasal discharge (green/yellow), post nasal drip, headache(s) ( full pressure ), hoarseness and sore throat; No abnormal hearing (not new or worsening from baseline), ear or mastoid pain, ear discharge, ear pressure, tinnitus, dizziness/vertigo, nosebleed/epistaxis, nasal congestion, sinus pain, facial pain, dental pain, difficulty swallowing, bad breath, lip swelling, neck pain, tongue swelling or throat swelling Resp Respiratory: Positive for cough Cough: Yes non-productive and shortness of breath (with cough); No change in phlegm color, chest congestion, hemoptysis, pain on inspiration, pain with cough, stridor or wheezing Cardio Cardiology: No chest pain at rest, chest pain with exertion, shortness of breath, dyspnea on exertion or lightheadedness Gastro GI: No abdominal pain, change in bowel habits or difficulty swallowing Genitourinary-Female: No difficulty urinating, burning urination, painful urination or urinary incontinence Musc Musculoskeletal: No neck pain Neuro Neurology: Positive for headache(s) ( full pressure ); No abnormal hearing (not new or worsening from baseline) Psych Psychiatric: No abnormal sleep pattern and Positive for change in appetite (eating less) Endo Endocrine: No fatigue Aller/Imm Allergy/Immunologic: No lip swelling, throat swelling, tongue swelling or wheezing Quality Reporting Tobacco Screening ([facility] 138) Smoking Status: Never smoker Assessment and Plan Assessment and Plan (1) Diarrhea: Status: Chronic Qualifiers: Diarrhea type: functional diarrhea Qualified Code(s): K59.1 - Functional diarrhea Plan: Her genetic testing had 1 marker positive that was extremely high for Crohn's disease. I think she has components of osmotic and secretory diarrhea. I think her osmotic diarrhea comes from her colonic resection resulting in less bile reabsorption. Also think she has a secretory diarrhea possibly secondary to inflammatory bowel disease. We will put her on azathioprine 50 mg in the morning and cholestyramine at night. She will follow-up in approximately 4 months. (2) S/P right hemicolectomy: Status: Chronic Comment: 2020 Dr. Mckinney Plan: Status post right hemicolectomy due to a very large tubular villous adenoma. Her last colonoscopy approximately a year ago did not show of abnormalities at the site of anastomosis . She can have a colonoscopy approximately a year. (3) GERD (gastroesophageal reflux disease): Status: Acute Plan: Nonerosive gastroesophageal reflux disease was seen on her upper endoscopy and confirmed by Way pH monitoring. Her DeMeester score was 8. She does respond very well to PPI therapy so we will continue that for now. When she undergoes her colonoscopy we will also perform an EGD because she is having refractory GERD symptoms and chest pain with a history of erosive esophagitis. 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 Therefore we will undergo Botox injection the EGD until lower esophageal sphincter to hopefully help her chest pain. I have examined the patient and the H&P has been reviewed. There are no clinical changes since date of exam.
[2023-11-14] MEDS: 0.9% Normal Saline (Pres. free 10 ML Vial (15:45)
[2023-11-14] MEDS: Botulinum Toxin A 100 Units Vial IJ (15:45)
[2023-11-14] MEDS: 0.9% Saline Lock 10 ML Syringe IV (15:47)
[2023-11-14 15:55] VITALS: BP 116/77; BP 127/87; PULSE 82; RESP 16; TEMP 36.3; O2SAT 96
--- NOTE | 2023-11-14 15:58 | OP.CCLET_ITS ---
11/14/2023 To [address] [place] [address] Re : Upper GI endoscopy procedure for Brice Gomez Dear Dr. Longoria This procedure was performed on Tuesday, November 14, 2023. My impressions and recommendations are as follows: Impressions : - Abnormal esophageal motility. Injected with botulinum toxin. - Mild Schatzki ring. - No gross lesions in the entire stomach. - No gross lesions in the first portion of the duodenum. - No specimens collected. Recommendations : - Discharge patient to home. - Resume previous diet. - Continue present medications. - Await pathology results. My findings are described in the full procedure note, which is enclosed. If I can be of further assistance, please feel free to contact me at . Sincerely, Pedrito Brock, 11/14/2023 3:57:34 PM This report has been signed electronically.
--- NOTE | 2023-11-14 15:58 | OP.EGD_ITS ---
Patient Name: Brice Gomez Procedure Date: 11/14/2023 3:24 PM Date of : 1980 Age: 43 Procedure: Upper GI endoscopy Indications: Therapeutic procedure, Suspected achalasia Providers: Pedrito Brock DO Referring MD: Pedrito Brock DO Medicines: Monitored Anesthesia Care Patient Profile: This is a 43 year old female. Refer to note in patient chart for documentation of history and physical. Patient has symptoms of chronic chest pain. Complications: No immediate complications. Procedure: Pre-Anesthesia Assessment: - Prior to the procedure, a History and Physical was performed, and patient medications and allergies were reviewed. The patient is competent. The risks and benefits of the procedure and the sedation options and risks were discussed with the patient. All questions were answered and informed consent was obtained. Patient identification and proposed procedure were verified by the physician in the pre-procedure area. Mental Status Examination: alert and oriented. Airway Examination: normal oropharyngeal airway and neck mobility. Respiratory Examination: clear to auscultation. CV Examination: normal. Prophylactic Antibiotics: The patient does not require prophylactic antibiotics. Prior Anticoagulants: The patient has taken no anticoagulant or antiplatelet agents. ASA Grade Assessment: II - A patient with mild systemic disease. After reviewing the risks and benefits, the patient was deemed in satisfactory condition to undergo the procedure. The anesthesia plan was to use monitored anesthesia care (MAC). Immediately prior to administration of medications, the patient was re-assessed for adequacy to receive sedatives. The heart rate, respiratory rate, oxygen saturations, blood pressure, adequacy of pulmonary ventilation, and response to care were monitored throughout the procedure. The physical status of the patient was re-assessed after the procedure. After obtaining informed consent, the endoscope was passed under direct vision. Throughout the procedure, the patient's blood pressure, pulse, and oxygen saturations were monitored continuously. The gastroscope was introduced through the mouth, and advanced to the second part of duodenum. The upper GI endoscopy was accomplished without difficulty. The patient tolerated the procedure well. Scope In: 3:43:18 PM Scope Out: 3:48:28 PM Total Procedure Duration Time 0 hours 5 minutes 10 seconds Findings: Abnormal motility was noted in the lower third of the esophagus. The cricopharyngeus was normal. There is spasticity of the esophageal body. The distal esophagus/lower esophageal sphincter is spastic, but gives up passage to the endoscope. Tertiary peristaltic waves are noted. Area was successfully injected with 100 units botulinum toxin. A mild Schatzki ring was found in the lower third of the esophagus. No gross lesions were noted in the entire examined stomach. No gross lesions were noted in the first portion of the duodenum. Impression: - Abnormal esophageal motility. Injected with botulinum toxin. - Mild Schatzki ring. - No gross lesions in the entire stomach. - No gross lesions in the first portion of the duodenum. - No specimens collected. Recommendation: - Discharge patient to home. - Resume previous diet. - Continue present medications. - Await pathology results. Procedure Code(s): --- Professional --- 40021, Esophagogastroduodenoscopy, flexible, transoral; with directed submucosal injection(s), any substance CPT copyright 2021 [employer]. All rights reserved. The codes documented in this report are preliminary and upon stile ripsaw operator review may be revised to meet current compliance requirements. Pedrito Brock DO 11/14/2023 3:57:34 PM This report has been signed electronically. Number of Addenda: 0 Note Initiated On: 11/14/2023 3:24 PM
[2023-11-14 16:00] VITALS: BP 122/77; BP 127/87; PULSE 85; RESP 16; O2SAT 95
[2023-11-14 16:05] VITALS: BP 120/79; BP 127/87; PULSE 82; RESP 16; O2SAT 95
[2023-11-14 16:09] VITALS: BP 120/78; BP 127/87; PULSE 80; RESP 16; TEMP 36.4; O2SAT 97
[2023-11-14 16:23] VITALS: BP 127/87
== END 2023-11-14 16:32 | disposition home or self-care (01) ==
LOC: EN 13:42 → AC 13:43
PROVIDERS: PCP Student in an Organized Health Care Education/Training Program; Referring Provider Internal Medicine Gastroenterology; Visit Provider Internal Medicine Gastroenterology
PROC: 0DJ08ZZ Inspection of Upper Intestinal Tract, Via Natural or Artificial Opening Endoscopic (ICD-10-PCS; CPT 43235; principal; 2023-11-14 14:55)
DX: K59.1 Functional diarrhea (principal); Z80.0 Family history of malignant neoplasm of digestive organs; K21.9 Gastro-esophageal reflux disease without esophagitis; Z79.899 Other long term (current) drug therapy; Z90.49 Acquired absence of other specified parts of digestive tract; K22.2 Esophageal obstruction; K22.89 Other specified disease of esophagus; Z03.89 Encounter for observation for other suspected diseases and conditions ruled out
CPT/HCPCS: 43236; J7120; A4216; J0585; J2405; J3490

== ENCOUNTER → 2023-12-07 | Outpatient (CLI) | payer OTHER, SELFPAY ==
[2023-12-12 14:09] LABS: Calprotectin, Stool 72 ug/g (0-120)
== END | disposition home or self-care (01) ==
PROVIDERS: PCP Student in an Organized Health Care Education/Training Program; Referring Provider Internal Medicine Gastroenterology; Visit Provider Internal Medicine Gastroenterology
DX: K50.90 Crohn's disease, unspecified, without complications (principal)
CPT/HCPCS: 83630; 83993

== ENCOUNTER → 2023-12-29 | Outpatient (CLI) | payer OTHER, SELFPAY ==
--- OUTSIDE RECORDS SUMMARY | 2023-12-29 06:42 | XMS RPT_ITS | CCD ---
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 Last Seen: 01/26 Upcoming appt: 04/25 Requested Prescriptions Pending Prescriptions Disp Refills vilazodone (VIIBRYD) 20 mg tablet 90 tablet 0 Sig: Take 1 tablet by mouth once daily. vilazodone (VIIBRYD) 10 mg tablet 90 tablet 0 Sig: Take 1 tablet by mouth once daily. Please process accordingly documented in this encounter [facility] 03-17-2023 Miscellaneous Notes Pharmacy faxed requesting refill(s): [facility] Requested Prescriptions Pending Prescriptions Disp Refills buPROPion XL (WELLBUTRIN XL) 300 mg 24 hr tablet 90 tablet 0 Sig: Take 1 tablet by mouth once daily. Please process accordingly Deann Wheeler documented in this encounter [facility] 02-20-2023 Miscellaneous Notes Pt notified of [...] Matthews DO Results placed on JG desk Please obtain these 2 labs from medite at [facility] To Matthews DO Pt called in to see if we had the results for the Celiac panel or the HLA-B27 PCR. I told her I could see the other lab results, but not those ones yet. documented in this encounter [facility] 01-26-2023 Note HNO ID: [id number] Author: Feli Benz DO Service: ? Author Type: Physician Type: Progress Notes Filed: 01/27/2023 9:11 AM Note Text: PSYC FOLLOW UP - PSYCHIATRIC PROGRESS NOTE CC: doing well With the patient consent, visit was performed virtually. 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 [...] doing better has a new psychiatrist in [place] March 19. Risks and benefits of the medication, including any black box warnings, were discussed with the patient. Interval Progress: same PATIENT DATA: Generalized Anxiety Disorder Scale (JAG-7) JAG - 7 SCORES 10/04/2022 11/23/2022 01/19/2023 JAG-7 Score 3 6 4 (0-4) minimal anxiety, [...] airway disease Severe pre-eclampsia, condition or complication [facility] Stone, kidney x2 Vitamin D [...] DANDC and ablation Dr. Silveira S HERNIA PATCH,VENTRALEX,[id number] abdomen STEROTACTIC GUIDE BREAST BX 10/01/2012 u/s [...] swollen nodes. ENDOCRINE: (more content not included)... [facility] 01-20-2023 Miscellaneous Notes Patient phones requesting refills as follows: Requested Prescriptions Pending Prescriptions Disp Refills esomeprazole (NEXIUM) 40 mg capsule 180 capsule 5 Sig: Take 1 capsule by mouth twice daily before meals. 1/2 hr before meal. SKIP-01/11/23 Labs-01/12/23 NOV-none med filled 01/10/22 Please review and advise. Valorie Mcintosh LPN documented in this encounter [facility] 01-19-2023 Note HNO ID: [id number] Author: Maggie Joyce MD Service: ? Author Type: Physician Type: Progress Notes Filed: 01/20/2023 9:39 AM Note Text: This is a consultation requested by Pedrito Brock DO for an allergy and immunology evaluation. My final recommendations will be communicated back to the requesting healthcare provider(s) by way of shared medical record or via U.[place]. mail. Isak Gomez is a 42 year old female [...] course of subcutaneous immunotherapy as prescribed by [facility] in 2013. Denies systemic reactions to [...] 08, 2014. 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 REVIEW OF SYSTEMS: SINUSITIS: See NIKOLAI ASTHMA: The patient has no history of asthma. ECZEMA: The patient has no history of eczema. URTICARIA:The patient does not have a history of urticaria and/or angioedema. GERD: See NIKOLAI INSECT STING: The patient does not have [...] Allergic rhinitis. Immunotherapy in past, Dr. Bond [facility]. Depression Fibrosclerosis of breast H. 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 [facility] 01-19-2023 History of Presen t illness Narrative This is a consultation requested by Pedrito Brock DO for an allergy and immunology evaluation. My final recommendations will be communicated back to the requesting healthcare provider(s) by way of shared medical record or via U.S. mail. Isak Gomez is a 42 year old female [...] course of subcutaneous immunotherapy as prescribed by [facility] in 2013. Denies systemic reactions to [...] 08, 2014. 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 REVIEW OF SYSTEMS: SINUSITIS: See NIKOLAI ASTHMA: The patient has no history of asthma. ECZEMA: The patient has no history of eczema. URTICARIA:The patient does not have a history of urticaria and/or angioedema. GERD: See NIKOLAI INSECT STING: The patient does not have [...] cause unspecified Allergic rhinitis. Immunotherapy in past, [facility]. Depression Fibrosclerosis of breast H. 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 Neck pain, musculoskeletal FLORENTINO (obstructive sleep apnea) 08/2016 stopped using c-pap PMH - PAST MEDICAL HISTORY OF IUD PMH - PAST MEDICAL HISTORY OF EPISODES OF TACCHYCARDIA DURING Pneumonia due to COVID-19 virus Reactive airway disease Severe pre-eclampsia, condition or complication [facility] Stone, kidney x2 Vitamin D [...] POLYPECTOMY 05/2013 polyp IR BASKET STONE EXTRACTION 2010 LAPAROSCOPIC HEMICOLECTOMY Right LIG/TRNSXJ FLP TUBE ABDL/VAG APPR UNI/BI Tubal ligation PAST SURGICAL HISTORY OF x2 PAST SURGICAL HISTORY OF wisdom teeth PAST SURGICAL HISTORY OF 05/19/[address] D&[address] Silveira S HERNIA PATCH,VENTRALEX,[id number] abdomen STEROTACTIC GUIDE BREAST BX 10/01/2012 u/s guidance of left breast VAGINAL HYSTERECTOMY right Ovary remains FAMILY HISTORY: Allergic rhinitis:yes: mom and son. Asthma: yes: son. Eczema: no. Cystic fibrosis: no. Immunodeficiency: no. 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 She may also use oudo-qrs-yxlyube olopatadine eyedrops as needed. 3.) Reactive airways [...] Maggie Joyce MD documented in this encounter [facility] 01-19-2023 Nurse Note Patient here for [...] past 5 days. documented in this encounter [facility] 01-11-2023 Note HNO ID: [id number] Author: To Matthews, DO Service: ? Author Type: Physician Type: Progress Notes Filed: 01/11/2023 9:22 PM Note Text: CC: Isak Gomez is a 42 year old female [...] seen recently by Gastroenterology Dr. Brock at [facility], has had testing of IBD [...] airway disease Severe pre-eclampsia, condition or complication [facility] Stone, kidney x2 Vitamin D [...] DANDC and ablation Dr. Silveira S HERNIA PATCH,VENTRALEX,[id number] abdomen STEROTACTIC GUIDE BREAST BX 10/01/2012 u/s [...] edema Biaxin [ (more content not included)... [facility] 01-11-2023 History of Presen t illness Narrative CC: Isak Gomez is a 42 year old female [...] seen recently by Gastroenterology Dr. Brock at [facility], has had testing of IBD [...] airway disease Severe pre-eclampsia, condition or complication [facility] Stone, kidney x2 Vitamin D [...] D&C and ablation Dr. Silveira S HERNIA PATCH,VENTRALEX,[id number] abdomen STEROTACTIC GUIDE BREAST BX 10/01/2012 u/s [...] no current symptoms, negative urine cytology 6. JAG (generalized anxiety disorder) - ICD9: 300.02, ICD10: F41.1 - f/u with Psychiatry, improved To Matthews DO Return if no improvement. Follow up with To Matthews DO. To ER if develops chest pain, shortness of breath Discussed risks, benefits, alternatives, and potential side effects of medications. Patient/Guardian expressed understanding and agreed with the plan. See patient instructions. To Matthews DO [address] [place] [address] documented in this encounter [facility] 01-06-2023 Miscellaneous Notes Scheduled Please call patient to schedule with either allergy provider from referral from Dr. Brock. documented in this encounter [facility] 12-06-2022 Miscellaneous Notes PA denied- Patient notified. RAHUL requested for vilazodone (VIIBRYD) 10 mg tablet Submitted with [employer] and under review - Lanza: [id number] Deann Wheeler November 24, 2022 4:46 PM documented in this encounter [facility] 11-24-2022 Note HNO ID: [id number] Author: Feli Benz DO Service: ? Author [...] same PATIENT DATA: Generalized Anxiety Disorder Scale (JAG-7) JAG - 7 SCORES 08/30/2022 10/04/2022 11/23/2022 JAG-7 Score 7 3 6 (0-4) minimal anxiety, [...] airway disease Severe pre-eclampsia, condition or complication [facility] Stone, kidney x2 Vitamin D [...] DANDC and ablation Dr. Silveira S HERNIA PATCH,VENTRALEX,[id number] abdomen STEROTACTIC GUIDE BREAST BX 10/01/2012 u/s [...] for this vi (more content not included)... [facility] 11-24-2022 History of Presen t illness [...] same PATIENT DATA: Generalized Anxiety Disorder Scale (JAG-7) JAG - 7 SCORES 08/30/2022 10/04/2022 11/23/2022 JAG-7 Score 7 3 6 (0-4) minimal anxiety, [...] airway disease Severe pre-eclampsia, condition or complication [facility] Stone, kidney x2 Vitamin D [...] D&C and ablation Dr. Silveira S HERNIA PATCH,VENTRALEX,[id number] abdomen STEROTACTIC GUIDE BREAST BX 10/01/2012 u/s [...] perception or progression. DIAGNOSIS: PRIMARY: MDD recurrent JAG TREATMENT PLAN: 1. Continue viibryd 30 mg po daily Follow Up: one month I spent a total of 30 minutes on the date of the service which included [id number]-[id number] patient care, completing clinical documentation, and obtaining and/or reviewing separately obtained history. ADD ON PSYCHOTHERAPY CODE : No SIGNATURE: Feli Benz DO PATIENT NAME: Isak Gomez DATE: November 24, 2022 TIME: 10:39 AM PAGER: documented in this encounter [facility] 11-22-2022 Instructions Kimber Jorge APRN.DAISY - 11/22/2022 3:23 PM EST Try the steroids. Let me know what happens w/ ENT appt. documented in this encounter [facility] 11-22-2022 History of Presen t illness Narrative This is a 42 year old female who presents today with: Patient presents with: Recheck: Follow up bilateral ears; L greater than R HISTORY OF PRESENT ILLNESS: Isak Gomez is a 42 year old female. [...] airway disease Severe pre-eclampsia, condition or complication [facility] Stone, kidney x2 Vitamin D [...] D&C and ablation Dr. Silveira S HERNIA PATCH,VENTRALEX,[id number] abdomen STEROTACTIC GUIDE BREAST BX 10/01/2012 u/s [...] Kimber Jorge APRN.DAISY documented in this encounter [facility] 10-29-2022 Instructions Torie Arceo APRN.DAISY - 10/29/2022 12:37 PM EST ASSESSMENT/PLAN: 1. [...] Discussed expected course of illness Torie Arceo APRN.CNP COUGH: The body has a cough reflex [...] other serious complaints. documented in this encounter [facility] 10-29-2022 History of Presen t illness Narrative Subjective Cough Associated symptoms include eye redness. Pertinent negatives include no chills and no wheezing. Isak Gomez is a 42 year old female [...] airway disease Severe pre-eclampsia, condition or complication [facility] Stone, kidney x2 Vitamin D [...] D&C and ablation Dr. Silveira S HERNIA PATCH,VENTRALEX,[id number] abdomen STEROTACTIC GUIDE BREAST BX 10/01/2012 u/s [...] Discussed expected course of illness Torie Arceo APRN.CNP documented in this encounter [facility] 10-28-2022 Miscellaneous Notes The following approved [...] her something with Codeine? Patient's pharmacy is [facility]. Patient does have an appointment with ENT today due to her ear problems (tinnitus) Please review and advise, Jamia Gil RN documented in this encounter [facility] 10-27-2022 Instructions Zaki Frost APRN.STEEL PLACER - 10/27/2022 8:26 AM EST How to Manage Common Symptoms Associated with COVID for Adults Fever- Fever is a temperature over 100.4 F and can occur when the body is fighting an infection. To help treat a fever: Drink plenty of fluids and stay well hydrated. Eat small amounts of easy to digest food. Rest. Your body needs rest to recover, but getting up and moving around the house frequently is a good idea. You should try to continue doing your normal daily activities (bathing, toileting, grooming, cooking), though you will probably feel tired, and need to rest often. Avoid any heavy activity or exercise, as this will increase your body temperature. Dress in light clothing and stay covered in a light sheet. Keep the room temperature cool. Take a slightly warm (not cold or cool) bath, or apply damp washcloths to the forehead and wrists. Cough- Cough is a common symptom associated with COVID and can be bothersome. To help treat a cough: Stay well hydrated. Try warm water or tea with lemon and/or honey to help soothe the cough. Use a humidifier to add moisture to the air. Try a product with menthol, like a cough drop or a rub for your chest such as Vicks, which can help reduce cough. Try cough drops. Avoid smoking and other strong odors or perfumes. Try breathing exercises to keep your lungs open and clear. Take a big deep breath through your nose and hold for 5 seconds before slowly releasing. Repeat frequently, while you are awake. Congestion- Runny nose or nasal congestion can occur with COVID. Treatment can help relieve symptoms: Try OTC nasal saline spray, or nasal saline rinse to relieve mucus congestion. Nasal strips can help keep nasal passages open, to increase airflow. Elevating your head with an extra pillow in bed can help reduce congestion. Using a humidifier can increase moisture in the air, and make breathing easier. Sore Throat- Another common symptom with COVID, can be managed at home by: Stay well hydrated. Gargle with salt water - mix teaspoon salt with 1 cup of warm water and gargle. This helps to loosen mucus in the back of the throat and may reduce discomfort. Try ice chips, popsicles or lozenges to soothe the throat. Nausea/Vomiting/Diarrhea- These are common symptoms, and staying hydrated is most important. If you are nauseous or vomiting, start with small sips of water every 10-15 minutes and increase as tolerated. You can try sucking an ice cube too. If tolerating, you can try pedialyte or Gatorade, or flat sprite or naa-amanda. Start slowly and increase as you are able to. Instead of meals, try smaller, more frequent snacks. Try eating bland foods like crackers, toast, rice, and applesauce. Avoid spicy, greasy or fried foods and dairy containing foods. Even if you aren't feeling hungry due to lack of smell or taste, it is important to try to take in some food when you are able. After drinking and eating, rest in an upright position for up to two hours as needed to help decrease nauseous feelings. Try closing your eyes, avoid moving and watching TV. Avoid strong odors that can make you feel more nauseated. When to seek emergency medical attention Look for emergency warning signs for COVID-19. If having any of these symptoms, seek emergency medical care immediately: Trouble breathing Persistent pain or pressure in the chest New confusion Inability to wake or stay awake Bluish lips or face *This list is not all possible symptoms. Please call your medical provider for any other symptoms that are severe or concerning to you. documented in this encounter [facility] 10-27-2022 History of Presen t illness Narrative Subjective HPI Nontoxic female presents urgent care chief plaint cough chest congestion bilateral ear pain. Duration of symptoms 5 days. Associated symptoms cough chest congestion bilateral ear pain. States cough is slightly improving. Most prominent symptom today is bilateral ear pain and tinnitus. States history of tinnitus is under care of ENT for this complaint. Concerned about possible ear infection. Has been using OTC medications as this helped mildly. Denies any fever body aches chills productive cough chest pain shortness of breath pleuritic pain hemoptysis nausea vomiting abdominal pain change in bowel or bladder habits. Past medical history prescription medication use and allergies reviewed. .Patient presents with: Cough: Pt reported chest congestion, bilateral ear decreased hearing, x5 days. PAST MEDICAL HISTORY Diagnosis Date Abnormal uterine [...] airway disease Severe pre-eclampsia, condition or complication [facility] Stone, kidney x2 Vitamin D [...] D&C and ablation Dr. Silveira S HERNIA PATCH,VENTRALEX,[id number] abdomen STEROTACTIC GUIDE BREAST BX 10/01/2012 u/s guidance of left breast VAGINAL HYSTERECTOMY right Ovary remains ALLERGIES Clindamycin, Bee Sting, Biaxin [Clarithromycin], Celexa [Citalopram], Entex [Phenylephrine-Guaifenesin], Flagyl [Metronidazole Hcl], Keflex [Cephalexin], Minocycline, Penicillins, and Pseudoephedrine MEDICATIONS esomeprazole (NEXIUM) 20 mg capsule Take 1 [...] Take 10 mg by mouth once daily. clonazePAM (KLONOPIN) 0.5 [...] use: Yes Comment: Rarely Drug use: No BP 132/78 Pulse 115 Temp 36.7 C (98 F) Resp 18 Wt 69.3 kg (152 lb 12.8 oz) LMP 08/24/2020 (Exact Date) SpO2 100% BMI 29.80 kg/m Hr 86 Review of Systems Constitutional: Positive for malaise/fatigue. Negative for chills and fever. HENT: Positive for congestion, ear pain and tinnitus. Negative for ear discharge, hearing loss, sinus pain and sore throat. Eyes: Negative for blurred vision, pain, discharge and redness. Respiratory: Positive for cough. Negative for hemoptysis, sputum production, shortness of breath, wheezing and stridor. Cardiovascular: Negative for chest pain. Gastrointestinal: Negative for abdominal pain, diarrhea, nausea and vomiting. Musculoskeletal: Positive for myalgias. Skin: Negative for itching and rash. Neurological: Positive for headaches. Negative for dizziness. Objective Physical Exam Constitutional: General: She is not in acute distress. Appearance: She is not diaphoretic. HENT: Head: Normocephalic. Jaw: No trismus, tenderness or pain on movement. Right Ear: Tympanic membrane, ear canal and external ear normal. No mastoid tenderness. Tympanic membrane is not erythematous or bulging. Left Ear: Ear canal and external ear normal. No mastoid tenderness. Tympanic membrane is erythematous. Tympanic membrane is not bulging. Nose: Congestion present. Mouth/Throat: Lips: [place]. Mouth: Mucous membranes are moist. Pharynx: Oropharynx is clear. Uvula midline. No pharyngeal swelling, oropharyngeal exudate, posterior oropharyngeal erythema or uvula swelling. Eyes: Conjunctiva/sclera: Conjunctivae normal. Pupils: Pupils are equal, round, and reactive to light. Cardiovascular: Rate and Rhythm: Normal rate and regular rhythm. Heart sounds: Normal heart sounds. Pulmonary: Effort: Pulmonary effort is normal. No tachypnea, accessory muscle usage or respiratory distress. Breath sounds: Normal breath sounds. No stridor. No wheezing, rhonchi or rales. Abdominal: Palpations: Abdomen is soft. Tenderness: There is no abdominal tenderness. Musculoskeletal: Cervical back: Normal range of motion and neck supple. No rigidity or tenderness. Lymphadenopathy: Cervical: No cervical adenopathy. Skin: General: Skin is warm and dry. Neurological: Mental Status: She is alert and oriented to person, place, and time. ASSESSMENT/PLAN: 1. Viral illness - ICD9: 079.99, ICD10: B34.9 - COVID WITH FLUA+B, ROUTINE No evidence of bacterial infection noted on ear exam. Erythema was noted. Clear fluid behind bilateral TMs was noted. No purulent fluid or bulging. Placed on prednisone and Tessalon Perles. Patient was educated on supportive therapies. Patient will follow up with primary care provider as needed. Patient was instructed to immediately proceed to emergency room for any new, worsening, or symptoms lasting longer than anticipated. The patient's clinical presentation is otherwise unremarkable at this time. Based on exam and clinical finding, the patient is stable for discharge. Plan of care was discussed with patient. Patient verbalizes understanding and agrees to plan of care. This note was generated using [employer] software. It may contain errors in wording, punctuation, or spelling. Zaki Frost APRN.DAISY documented in this encounter [facility] 10-20-2022 Miscellaneous Notes Pt informed, verbalized understanding Soumya Waldron Ma Please inform patient that her urine cytology is negative for malignancy, only shows inflammation. Would recommend follow up with Uro CREEL CLERK if symptoms urinary start. To Matthews DO documented in this encounter [facility] 10-11-2022 Instructions To Matthews DO - 10/11/2022 5:23 PM EST Magnesium 250-500 mg a day Every other day 20-40 mg with Nexium for at least 2 weeks before dropping to 20 mg if tolerating dose change documented in this encounter [facility] 10-11-2022 History of Presen t illness Narrative CC: Isak Gomez is a 42 year old female who presents to the office for follow up HPI: Had episode of gross hematuria about 1 [...] 2 panic attacks while on the cruise PAST MEDICAL HISTORY Diagnosis Date Abnormal uterine bleeding 01/31/2013 Allergic rhinitis, cause unspecified Allergic rhinitis. Immunotherapy in past, Dr. Bond, [facility]. Depression Fibrosclerosis of breast H. 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 Silveira S HERNIA PATCH,VENTRALEX,[id number] abdomen STEROTACTIC GUIDE BREAST BX 10/01/2012 u/s guidance of left breast VAGINAL HYSTERECTOMY right Ovary remains Current Outpatient Medications Medication Sig vilazodone (VIIBRYD) 20 mg tablet Take 1 tablet by mouth once daily. vilazodone (VIIBRYD) 10 mg tablet Take 1 tablet by mouth once daily. buPROPion XL (WELLBUTRIN XL) 300 mg 24 hr tablet Take 1 tablet by mouth once daily. clonazePAM (KLONOPIN) 0.5 mg tablet Take 1 tablet by mouth twice daily as needed for up to 30 days. vitamin D3-vitamin K2, MK4, 1,000-100 unit-mcg tab Take by mouth. esomeprazole (NEXIUM) 40 mg capsule Take 1 [...] Take 10 mg by mouth once daily. esomeprazole (NEXIUM) 20 mg capsule Take 1 capsule by mouth daily before breakfast. 1/2 hr before meal. vilazodone (VIIBRYD) 20 mg tablet Take 1 tablet by mouth once daily. vilazodone (VIIBRYD) 20 mg tablet Take 1 tablet by mouth once daily. hyoscyamine sublingual (LEVSIN SL) 0.125 mg For [...] use: No ROS: See HPI PE: BP 120/80 Pulse 80 Temp (Src) 97.5 (Right Tympanic) Resp 16 Wt 153 lb (69.4kg) LMP 08/24/2020 Gen: A&OX3, NAD, non-toxic appearing HEENT: PERRLA, EOMs intact b/l, nares without drainage, pharynx without erythema, exudate, lesions, or drainage. Uvula midline. Neck: No LAD, no thyromegaly, no meningismus. CV: RRR, no murmur Lungs: CTA b/l, no wheezing Skin: No rashes, lesions, or wounds on exposed skin. No flank pain ASSESSMENT/PLAN: 1. Gross hematuria - ICD9: 599.71, ICD10: R31.0 (primary diagnosis) Since she was asymptomatic, recommend urine cytology, f/u with Urologist if occurs again - UA DIP, URINE (POC) - CYTOLOGY NON-CREEL CLERK 2. Painless hematuria - ICD9: 599.70, ICD10: R31.9 See above - CYTOLOGY NON-CREEL CLERK 3. GERD without esophagitis - ICD9: 530.81, ICD10: K21.9 - Discussed lifestyle modifications including losing weight, limiting caffeine, no meals three hours before sleep, and head of bed elevation - try to decrease dose of nexium to see if symptoms are improved now. - ESOMEPRAZOLE MAGNESIUM 20 MG CAPSULE,DELAYED RELEASE 4. JAG (generalized anxiety disorder) - ICD9: 300.02, ICD10: F41.1 F/u with Psychiatrist, seems to be getting better To Matthews DO Return if no improvement. Follow up with To Matthews DO. To ER if develops chest pain, shortness of breath Discussed risks, benefits, alternatives, and potential side effects of medications. Patient/Guardian expressed understanding and agreed with the plan. See patient instructions. To Matthews DO [address] [place] [address] documented in this encounter [facility] 10-06-2022 Note HNO ID: [id number] Author: Feli Benz, DO Service: ? Author Type: Physician Type: Progress Notes Filed: 10/06/2022 11:02 AM Note Text: PSYC FOLLOW UP - PSYCHIATRIC PROGRESS NOTE This was a virtual follow up over zoom for 30 mins CC: anxiety follow up HPI: Panic attack when on the boat in the [facility] snorkling with waves. She had a hard time swimming back to the boat with panic bc her breathing was fast up to 170 hr. On the cruise in the buffet line she had some panic sx. Risks and benefits of the medication, including any black box warnings, were discussed with the patient. Interval Progress: none PATIENT DATA: Generalized Anxiety Disorder Scale (JAG-7) JAG - 7 SCORES 07/18/2022 08/30/2022 10/04/2022 JAG-7 Score 5 7 3 (0-4) minimal anxiety, (5-9) mild anxiety, (10-14) moderate anxiety, (15-21) severe anxiety Patient Health Questionnaire (PHQ-9) PHQ-9 07/18/2022 08/30/2022 10/04/2022 Score 1 6 1 (0-4) minimal depression, (5-9) mild depression, [...] airway disease Severe pre-eclampsia, condition or complication [facility] Stone, kidney x2 Vitamin D [...] DANDC and ablation Dr. Silveira S HERNIA PATCH,VENTRALEX,[id number] abdomen STEROTACTIC GUIDE BREAST BX 10/01/2012 u/s guidance of left breast VAGINAL HYSTERECTOMY right Ovary remains Current Outpatient Medications Medication Sig Dispense Refill buPROPion XL (WELLBUTRIN XL) 150 mg 24 hr tablet Take 1 tablet by mouth once daily for 7 days. 7 tablet 0 buPROPion XL (WELLBUTRIN XL) 300 [...] polyuria, polydipsia and goiter. NEURO: Negative for headaches (more content not included)... [facility] 10-06-2022 History of Presen t illness Narrative Images from the original note were not included. PSYC FOLLOW UP - PSYCHIATRIC PROGRESS NOTE This was a virtual follow up over zoom for 30 mins CC: anxiety follow up HPI: Panic attack when on the boat in the [facility] snorkling with waves. She had a hard time swimming back to the boat with panic bc her breathing was fast up to 170 hr. On the cruise in the buffet line she had some panic sx. Risks and benefits of the medication, including any black box warnings, were discussed with the patient. Interval Progress: none PATIENT DATA: Generalized Anxiety Disorder Scale (JAG-7) JAG - 7 SCORES 07/18/2022 08/30/2022 10/04/2022 JAG-7 Score 5 7 3 (0-4) minimal anxiety, (5-9) mild anxiety, (10-14) moderate anxiety, (15-21) severe anxiety Patient Health Questionnaire (PHQ-9) PHQ-9 07/18/2022 08/30/2022 10/04/2022 Score 1 6 1 (0-4) minimal depression, (5-9) mild depression, [...] airway disease Severe pre-eclampsia, condition or complication [facility] Stone, kidney x2 Vitamin D [...] D&C and ablation Dr. Silveira S HERNIA PATCH,VENTRALEX,[id number] abdomen STEROTACTIC GUIDE BREAST BX 10/01/2012 u/s guidance of left breast VAGINAL HYSTERECTOMY right Ovary remains Current Outpatient Medications Medication Sig Dispense Refill buPROPion XL (WELLBUTRIN XL) 150 mg 24 hr tablet Take 1 tablet by mouth once daily for 7 days. 7 tablet 0 buPROPion XL (WELLBUTRIN XL) 300 [...] SUICIDE: None HOMICIDE: None DATA REVIEWED: None DIAGNOSIS: PRIMARY panic disorder , jag MDD recurrent TREATMENT PLAN: 1. Increase viibryd to 30 mg po daily 2. Wellbutrin XL 300 mg daily I spent a total of 30 minutes on the date of the service which included face to face and reviewing the chart ADD ON PSYCHOTHERAPY CODE : none SIGNATURE: Feli Benz DO PATIENT NAME: Isak Gomez DATE: October 06, 2022 TIME: 10:46 AM PAGER: documented in this encounter [facility] 09-22-2022 Miscellaneous Notes Reviewed. Melissa Heard APRN.DAISY Labs received and placed on Dr. Matthews's desk. Bree Oliver LPN documented in this encounter [facility] 09-16-2022 Miscellaneous Notes Pt. informed. I agree that it could likely be kidney stones due to UA and urine culture negative for infection. Agree with stopped qysmia -- at least for time being to see if improvement in symptoms. If wanting to discuss other options for weight management medications, needs to make appointment. Thank you, Estrella Singh APRN.STEEL PLACER Pt sent [employer] message in 6 days ago: I went into urgent care last night for hematuria. It started in the afternoon, and started to fade around 11:00 last evening. It was bright red, mostly blood. I had no complaints of flank pain or urinary symptoms. Urine dip was negative. I did a CMP and it was pretty much normal. I don t see visible blood this morning. However I am noticing some mild back pain and urinary frequency. I m thinking this could be from the Qsymia as this is a rare side effect. What do you think? Of course I m loosing weight with it and no other symptoms. I didn t take it today. It probably likely that I passed a stone yesterday, or possibly still working on one. Who knows. Let me know your thoughts. Wes Narvaez Pt reports she had 6 hours of blood, denied pain. She states talked with Dr Posada and thinks she may have passed a stone. Reports she stopped Qsymia as it can cause kidney stones and hematuria, did not have any side effects from abruptly stopping. Please call and advise. Faxed Gastro order to Dr Brock at [phone]. documented in this encounter [facility] 09-15-2022 Miscellaneous Notes Opening phone encounter. See message from pt and advise. Seen in [facility] yesterday. Clemencia Mazariegos Ma documented in this encounter [facility] 09-09-2022 Miscellaneous Notes Labs reviewed from [facility]. Creatinine was 1.01 BUN 24 creatinine clearance 80. Patient states symptoms are improving. Blood and urine is improving. We discussed supportive therapies. Discussed red flags for prompt reevaluation. Patient will follow up with PCP 7 to 10 days for repeat urinalysis in [facility] to ensure labs are improving. Patient verbalized understand agrees with plan of care. Zaki Frost APRN.DAISY documented in this encounter [facility] 09-09-2022 Miscellaneous Notes Patient was seen in To Matthews DO Patient calling said she is taking Qsymia and knows kidney stones are side effects of the medication. Patient said she has voided twice now today with hematuria. Patient aware PCP is out of the office on . Advised to go to express care for evaluation, may be a UTI, aware needs urine test done.Gave patient hours of operation for express care. documented in this encounter [facility] 09-08-2022 History of Presen t illness Narrative This note was created using [employer]. Subjective Isak Gomez is a 41 year old female. HPI Patient presents with a chief complaint of blood in her urine over the past few hours. She started Qsymia about 3 weeks ago for weight loss. She does have a history of kidney stones and was aware that the topiramate portion of the could induce a kidney stone. She has not had any flank or abdominal pain. No back pain. No vomiting. No fever. She is not a smoker. She denies chance of , has had a hysterectomy. No dysuria, or frequency. Review of Systems Constitutional: Negative for fever. HENT: Negative. Respiratory: Negative. Cardiovascular: Negative. Gastrointestinal: Negative. Genitourinary: Positive for hematuria. Negative for dysuria, flank pain, frequency, pelvic pain and urgency. Musculoskeletal: Negative. All other systems reviewed and are negative. PAST MEDICAL HISTORY Diagnosis Date Abnormal uterine [...] airway disease Severe pre-eclampsia, condition or complication [facility] Stone, kidney x2 Vitamin D deficiency Current Outpatient Medications Medication Sig Dispense Refill buPROPion XL (WELLBUTRIN XL) 150 mg 24 hr tablet Take 1 tablet by mouth once daily for 7 days. 7 tablet 0 buPROPion XL (WELLBUTRIN XL) 300 mg 24 hr tablet Take 1 tablet by mouth once daily. 90 tablet 0 clonazePAM (KLONOPIN) 0.5 mg tablet Take 1 tablet by mouth twice daily as needed for up to 30 days. 30 tablet 0 vilazodone (VIIBRYD) 20 mg tablet Take 1 tablet by mouth once daily. 90 tablet 0 phentermine-topiramate ER (QSYMIA) 7.5-46 mg 24 Hr Capsule Take 1 capsule by mouth once daily for 30 days. BMI 31.21 30 capsule 0 vitamin D3-vitamin K2, MK4, 1,000-100 unit-mcg [...] Take 10 mg by mouth once daily. vilazodone (VIIBRYD) 20 mg tablet Take 1 tablet by mouth once daily. 30 tablet 0 No current facility-administered medications for this visit. PAST SURGICAL HISTORY Procedure Laterality Date BREAST [...] HISTORY OF 05/19/[address] D&[address] Raoul Rushing HERNIA PATCH,VENTRALEX,[id number] abdomen STEROTACTIC GUIDE BREAST BX 10/01/2012 u/s guidance of left breast VAGINAL HYSTERECTOMY right Ovary remains FAMILY HISTORY Problem Relation Age of Onset [...] Yes Comment: Rarely Drug use: No Objective BP 132/82 Pulse 80 Temp 36.8 C (98.2 F) (Tympanic) Resp 16 Wt 70.3 kg (155 lb) LMP 08/24/2020 (Exact Date) SpO2 98% BMI 30.23 kg/m Physical Exam Vitals reviewed. Constitutional: Appearance: Normal appearance. HENT: Head: Normocephalic and atraumatic. Cardiovascular: Rate and Rhythm: Normal rate and regular rhythm. Heart sounds: Normal heart sounds. Pulmonary: Effort: Pulmonary effort is normal. Breath sounds: Normal breath sounds. Abdominal: General: Abdomen is flat. Palpations: Abdomen is soft. Tenderness: There is no right CVA tenderness or left CVA tenderness. Comments: Mild generalized lower abdominal tenderness, no guarding. Skin: General: Skin is warm and dry. Neurological: Mental Status: She is alert. Assessment and Plan ASSESSMENT/PLAN: 1. Gross hematuria - ICD9: 599.71, ICD10: R31.0 Patient does have bright red blood in urine, urine dip shows large blood, small protein with no other signs of infection. I will send for culture. I did order a BMP. Patient will have this drawn in the morning at [facility]. We will follow-up on results. Discussed if she develops severe flank pain, fever, vomiting would recommend ER. Qsymia is supposed to be tapered at least 1 week every other day. I did make her aware of this. She will also follow-up with her PCP tomorrow. I discussed with Dr. Carpio as well. Patient agreeable with plan. - UA DIP, URINE (POC) - URINE CULTURE - BASIC METABOLIC PNL - BASIC METABOLIC PNL Romana Zavala PA-C documented in this encounter [facility] 08-10-2022 History of Presen t illness Narrative CC: Isak Gomez is a 41 year old female who presents to the office for follow up HPI: Patient states that the Contrave that she had been prescribed to attempt to help her with weight loss wasn't seeming to be effective so she stopped taking it. She developed ringing/tinnitus in her ears, left >right, and thought maybe it was the Vibryyd medication. She stopped taking this for a few weeks and tinnitus didn't improve. She was then seen by Dr. [facility] and she had concurrently at that time had some neck/throat swelling and was placed on an antibiotic. The throat/neck swelling resolved but she continued to have tinnitus. She was found to have hearing loss with testing at ENT on the left side. She had MRI brain/ear completed which was normal appearing. She then restarted on her Vibryyd medication since her anxiety and depressive symptoms increased again. She has been taking this consistently. This last week, on 1 year anniversary of her brother's and his birthday time, she has been struggling significantly with depression that is to the point that she is not wanting to get out of bed to go to work, she is crying for 1-2 hours when arriving at work. She doesn't feel motivated to get anything accomplished. She had contrave remaining at home so she started taking this again since she felt that after stopping this, the depressed mood seemed to increase worse. At the same time, over the last week she has been having posterior neck and head discomfort, headaches. She would wake up with the headache and neck pain, she has been seeing chiropractor with some relief of symptoms. Also use of Excedrin with some relief. She is concerned about her depressed mood. No current SI but did have feelings of how it would be easier if she weren't here dealing with all of this. Has also had some situational stressors with her 2 sons and her marriage. Obesity, very frustrated with her inability to lose the weight, would like to try a different medication to help with weight loss. BMI 31.21, weight 160 lbs PAST MEDICAL HISTORY Diagnosis Date Abnormal uterine bleeding 01/31/2013 Allergic rhinitis, cause unspecified Allergic rhinitis. Immunotherapy in past, Dr. Bond, [facility]. Depression Fibrosclerosis of breast H. 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 Silveira S HERNIA PATCH,VENTRALEX,[id number] abdomen STEROTACTIC GUIDE BREAST BX 10/01/2012 u/s guidance of left breast VAGINAL HYSTERECTOMY right Ovary remains Current Outpatient Medications Medication Sig phentermine-topiramate ER (QSYMIA) 7.5-46 mg 24 Hr Capsule Take 1 capsule by mouth once daily for 30 days. BMI 31.21 buPROPion SR (WELLBUTRIN SR) 100 mg 12 hr tablet Take 1 tablet by mouth once daily. vilazodone (VIIBRYD) 10 mg tablet take one tablet daily for a week then increase to 20 mg vilazodone (VIIBRYD) 20 mg tablet Take 1 tablet by mouth once daily. clonazePAM (KLONOPIN) 0.5 mg tablet Take 1 tablet by mouth twice daily as needed for up to 30 days. scopolamine (TRANSDERM-SCOP) patch 1.5 mg/72 hr (delivers 1 mg over 3 days) Apply 1 Patch as directed every 72 hours. Apply patch to skin behind ear 4hrs prior to travel. vitamin D3-vitamin K2, MK4, 1,000-100 unit-mcg tab [...] as needed. Then seek medical attention immediately. metoprolol succinate ER (TOPROL XL) 25 mg 24 hr tablet Take 25 mg by mouth once daily. MULTI-VITAMIN ORAL Take by mouth. albuterol HFA [...] use: No ROS: See HPI PE: BP 110/70 Pulse 80 Temp (Src) 98.4 (Left Tympanic) Resp 16 Wt 160 lb (72.6kg) LMP 08/24/2020 Gen: A&OX3, NAD, non-toxic appearing HEENT: PERRLA, EOMs intact b/l, nares without drainage, pharynx without erythema, exudate, lesions, or drainage. Uvula midline. Neck: No LAD, no thyromegaly, no meningismus. CV: RRR, no murmur Lungs: CTA b/l, no wheezing Skin: No rashes, lesions, or wounds on exposed skin. Depressed appearing, sullen, intermittently tearful in office, answering questions appropriately ASSESSMENT/PLAN: 1. Depression, unspecified depression type - ICD9: 311, ICD10: F32.A (primary diagnosis) - restart her wellbutrin, f/u with Dr. Benz, starting this today since her symptoms are so severe/worse than what she has been experiencing and concerns about her health risk to self harm if not treated BARB. She is contracted for safety in office - BUPROPION HCL SR 100 MG TABLET,12 HR SUSTAINED-RELEASE 2. Fatigue, unspecified type - ICD9: 780.79, ICD10: R53.83 Labs as ordered. - TSH BLD - COMP METABOLIC PANEL - T4 FREE/FREE THYROX - VITAMIN D 25 HYDROXY - VITAMIN B12 BLOOD - CBC + DIFF - T3 FREE BLD 3. Encounter for screening mammogram for malignant neoplasm of breast - ICD9: V76.12, ICD10: Z12.31 - Set up for mammogram, yearly mammogram recommended - Encouraged monthly BSE - JULIENNE SCREENING W ANDREAS 4. Borderline abnormal thyroid function test - ICD9: 794.5, ICD10: R94.6 - recheck labs. - TSH BLD - T4 FREE/FREE THYROX - T3 FREE BLD 5. Need for Tdap vaccination - ICD9: V06.1, ICD10: Z23 - TDAP VACCINE AGE 7+ IM 6. Obesity, Class I, BMI 30-34.9 - ICD9: 278.00, ICD10: E66.9 Stable - Behavioral intervention, - Pharmacological intervention, and - Add Phentermine/topiamate (Qsymia) - PHENTERMINE 7.5 MG-TOPIRAMATE ER 46 MG CAPSULE,EXT.RELEASE 24HR MPHASE 7. JAG (generalized anxiety disorder) - ICD9: 300.02, ICD10: F41.1 - see above, f/u with Dr. Angel Matthews DO Return if no improvement. Follow up with To Matthews DO. To ER if develops chest pain, shortness of breath Discussed risks, benefits, alternatives, and potential side effects of medications. Patient/Guardian expressed understanding and agreed with the plan. See patient instructions. To Matthews DO [address] [place] [address] documented in this encounter [facility] 07-21-2022 Miscellaneous Notes Addended by: FELI BENZ on: 07/21/2022 09:54 AM Modules accepted: Orders documented in this encounter [facility] 07-21-2022 History of Presen t illness Narrative Images from the original note were not included. PSYC FOLLOW UP - PSYCHIATRIC PROGRESS NOTE CC: I'm still with the ringing of the ears with unilateral hearing loss With the patient consent, visit was performed virtually. HPI: Has been with chronic tinnitits. Pt has a migrane today and the past couple days. 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 She messaged her dr. We tried to see if viibryd contributing to the ringing of the ears. Risks and benefits of the medication, including any black box warnings, were discussed with the patient. Interval Progress: Slightly worse PATIENT DATA: Generalized Anxiety Disorder Scale (JAG-7) JAG - 7 SCORES 05/19/2022 07/18/2022 JAG-7 Score 3 5 (0-4) minimal anxiety, (5-9) mild anxiety, (10-14) moderate anxiety, (15-21) severe anxiety Patient Health Questionnaire (PHQ-9) PHQ-9 01/14/2022 05/19/2022 07/18/2022 Score 3 1 1 (0-4) minimal depression, (5-9) mild depression, (10-14) moderate depression, (15-19) moderately severe depression, (20-27) severe depression PROMIS Global Health PROMIS Global Health - (T-Scores - the mean of general population = 50. Five points is a clinically meaningful difference.) 01/14/2022 05/19/2022 07/18/2022 Physical T-Score 50.8 50.8 57.7 Mental T-Score - 45.8 - PAST MEDICAL HISTORY Diagnosis Date Abnormal uterine bleeding 01/31/2013 Allergic rhinitis, cause unspecified Allergic rhinitis. Immunotherapy in past, Dr. Bond, [facility]. Depression Fibrosclerosis of breast H. 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 Silveira S HERNIA PATCH,VENTRALEX,[id number] abdomen STEROTACTIC GUIDE BREAST BX 10/01/2012 u/s guidance of left breast VAGINAL HYSTERECTOMY right Ovary remains Current Outpatient Medications Medication Sig Dispense Refill clonazePAM (KLONOPIN) 0.5 mg tablet Take 1 tablet by mouth twice daily as needed for up to 30 days. 30 tablet 0 scopolamine (TRANSDERM-SCOP) patch 1.5 mg/72 hr (delivers 1 mg over 3 days) Apply 1 Patch as directed every 72 hours. Apply patch to skin behind ear 4hrs prior to travel. 10 Patch 1 naltrexone-bupropion (CONTRAVE) 8-90 mg ER tablet Take 2 tablets by mouth twice daily. 2 tablets PO twice daily, BMI 31.79 120 tablet 0 buPROPion XL (WELLBUTRIN XL) 150 mg 24 hr tablet Take 1 tablet by mouth once daily. 30 tablet 2 vitamin D3-vitamin K2, MK4, 1,000-100 unit-mcg tab Take by mouth. hyoscyamine sublingual (LEVSIN SL) 0.125 mg For diarrhea/cramping, Take 1-2 tablets under tongue every 4hrs as needed. Max 12 tabs per day. 30 tablet 1 esomeprazole (NEXIUM) 40 mg capsule Take 1 capsule by mouth twice daily before meals. 1/2 hr before meal. 180 capsule 5 gabapentin (NEURONTIN) 300 mg capsule Take 1 capsule by mouth three times daily for 90 days. 90 capsule 2 EPINEPHrine (EPIPEN) 0.3 mg/0.3 mL auto-injector Inject 0.3 mL subcutaneously as needed. Then seek medical attention immediately. 2 Each 1 metoprolol succinate ER (TOPROL XL) 25 mg 24 hr tablet Take 25 mg by mouth once daily. MULTI-VITAMIN ORAL Take by mouth. albuterol HFA (PROAIR HFA) 90 mcg/actuation inhaler Inhale 2 Puffs as instructed every 4 hours as needed. 1 Inhaler 3 cyclobenzaprine (FLEXERIL) 10 mg tablet Take 1 tablet by mouth every 8 hours as needed. 30 tablet 2 cetirizine (ZYRTEC) 10 mg tablet Take 10 mg by mouth once daily. No current facility-administered medications for this visit. ROS: GENERAL: Negative for malaise, significant weight loss and fever. HEENT: Hearing loss and ringing in the ears RESPIRATORY: Negative for cough, wheezing and shortness [...] filed for this visit. MENTAL STATUS EXAM: not performed DATA REVIEWED: none DIAGNOSIS: PRIMARY: Anxiety Disorder Generalized Anxiety Disorder TREATMENT PLAN: 1. Viibryd resume 10 mg daily for a week then 20 mg daily . Consider stopping wellbutrin to see if causing tinnititis? Case reports of it. 2. Klonopin 0.5 mg bid prn 3. Contrave 4. Refer to tinnitus management clinic I spent a total of 30 minutes on the date of the service which included [id number] patient care and completing clinical documentation. ADD ON PSYCHOTHERAPY CODE : No SIGNATURE: Feli Benz DO PATIENT NAME: sIak Gomez DATE: July 21, 2022 TIME: 9:40 AM PAGER: documented in this encounter [facility] 05-25-2022 History of Presen t illness Narrative Images from the original note were not included. PSYC FOLLOW UP - PSYCHIATRIC PROGRESS NOTE CC: anxiety and depression follow up With the patient consent, visit was performed virtually. HPI: She decided to stay with Contrave (wellbutrin and naltrexone) for weight loss has been constipated. Has been helpful for IBS as side effect of constipation. She feels her life has been restored. She used to have to stay at the restaurant for 30 mins as she new she couldn't make it home. She has been with some consipation. She is taking only one pill with some ringing in the ears which has been chronic. She feels she is having some hearing loss will plan to see ENT. She has ringing in ears was worse on higher dosage of Contrave She has lost 7 lbs but has ringing in ears. Monday was a rough day as it was the one year anniversary of her brothers . She is going to [facility] next week. She is working in [employer] and loves it working at [facility] [employer]. Risks and benefits of the medication, including any black box warnings, were discussed with the patient. Interval Progress: improved PATIENT DATA: Generalized Anxiety Disorder Scale (JAG-7) JAG - 7 SCORES 05/19/2022 JAG-7 Score 3 (0-4) minimal anxiety, (5-9) mild anxiety, (10-14) moderate anxiety, (15-21) severe anxiety Patient Health Questionnaire (PHQ-9) PHQ-9 06/28/2020 01/14/2022 05/19/2022 Score 7 3 1 (0-4) minimal depression, (5-9) mild depression, (10-14) moderate depression, (15-19) moderately severe depression, (20-27) severe depression PROMIS Global Health PROMIS Global Health - (T-Scores - the mean of general population = 50. Five points is a clinically meaningful difference.) 04/28/2021 01/14/2022 05/19/2022 Physical T-Score 42.3 50.8 50.8 Mental T-Score 41.1 - 45.8 PAST MEDICAL HISTORY Diagnosis Date Abnormal uterine bleeding 01/31/2013 Allergic rhinitis, cause unspecified Allergic rhinitis. Immunotherapy in past, Dr. Bond [facility] ENT. Depression Fibrosclerosis of breast H. 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 Raoul Rushing HERNIA PATCH,VENTRALEX,[id number] abdomen STEROTACTIC GUIDE BREAST BX 10/01/2012 u/s guidance of left breast VAGINAL HYSTERECTOMY right Ovary remains Current Outpatient Medications Medication Sig Dispense Refill scopolamine (TRANSDERM-SCOP) patch 1.5 mg/72 hr (delivers 1 mg over 3 days) Apply 1 Patch as directed every 72 hours. Apply patch to skin behind ear 4hrs prior to travel. 10 Patch 1 naltrexone-bupropion (CONTRAVE) 8-90 mg ER tablet Take 2 tablets by mouth twice daily. BMI 31.79 360 tablet 0 naltrexone-bupropion (CONTRAVE) 8-90 mg ER tablet Take 2 tablets by mouth twice daily. 2 tablets PO twice daily, BMI 31.79 120 tablet 0 clonazePAM (KLONOPIN) 1 mg tablet Take 1 tablet by mouth twice daily as needed for up to 30 days. 30 tablet 0 buPROPion XL (WELLBUTRIN XL) 150 mg 24 hr tablet Take 1 tablet by mouth once daily. 30 tablet 2 vitamin D3-vitamin K2, MK4, 1,000-100 unit-mcg tab Take by mouth. hyoscyamine sublingual (LEVSIN SL) 0.125 mg For diarrhea/cramping, Take 1-2 tablets under tongue every 4hrs as needed. Max 12 tabs per day. 30 tablet 1 esomeprazole (NEXIUM) 40 mg capsule Take 1 capsule by mouth twice daily before meals. 1/2 hr before meal. 180 capsule 5 vilazodone (VIIBRYD) 20 mg tablet take one and a half tablet daily 45 tablet 0 clonazePAM (KLONOPIN) 1 mg tablet Take 0.5 tablets by mouth twice daily as needed for up to 30 days. 30 tablet 0 vilazodone (VIIBRYD) 20 mg tablet Take 1 tablet by mouth once daily. 90 tablet 1 vilazodone (VIIBRYD) 20 mg tablet Take 1 tablet by mouth once daily. 90 tablet 0 gabapentin (NEURONTIN) 300 mg capsule Take 1 capsule by mouth three times daily for 90 days. 90 capsule 2 EPINEPHrine (EPIPEN) 0.3 mg/0.3 mL auto-injector Inject 0.3 mL subcutaneously as needed. Then seek medical attention immediately. 2 Each 1 metoprolol succinate ER (TOPROL XL) 25 mg 24 hr tablet Take 25 mg by mouth once daily. MULTI-VITAMIN ORAL Take by mouth. albuterol HFA (PROAIR HFA) 90 mcg/actuation inhaler Inhale 2 Puffs as instructed every 4 hours as needed. 1 Inhaler 3 cyclobenzaprine (FLEXERIL) 10 mg tablet Take 1 tablet by mouth every 8 hours as needed. 30 tablet 2 cetirizine (ZYRTEC) 10 mg tablet Take 10 [...] Time and Situation MEMORY: Recent intact, Remote intact, Immediate intact CONCENTRATION: Normal MOOD: euthymic AFFECT: Full and appropriate to topic SPEECH : Clear & distinct LANGUAGE : Normal ASSOCIATIONS: Intact THOUGHT PROCESS : Logical, Coherent and Rational PROGRESSION : There was no evidence of disturbance in thought perception or progression. FUND OF KNOWLEDGE : Appropriate and Adequate SUICIDE: None HOMICIDE: None DATA REVIEWED: None DIAGNOSIS: 1. PRIMARY: MDD recurrent TREATMENT PLAN: 1. IAGNOSIS: Mdd recurrent JAG TREATMENT PLAN: 1. D/c'd wellbutrin since started contrave with wellbutrin 180 mg 2. D/c viibryd 20 mg see if contributing to the ringing of the ears. 3. Follow up one month I spent a total of 30 minutes on the date of the service which included [id number] patient care and completing clinical documentation. ADD ON PSYCHOTHERAPY CODE : No SIGNATURE: Feli Benz DO PATIENT NAME: Isak Gomez DATE: May 25, 2022 TIME: 10:28 AM PAGER: documented in this encounter [facility] 05-20-2022 Miscellaneous Notes Patient was notified Jennifer Vazquez Ma The following approved medication requests have been transmitted electronically. Signed Prescriptions Disp Refills scopolamine (TRANSDERM-SCOP) patch 1.5 mg/72 hr (delivers 1 mg over 3 days) 10 Patch 1 Sig: Apply 1 Patch as directed every 72 hours. Apply patch to skin behind ear 4hrs prior to travel. Authorizing Provider: TO MATTHEWS DO Message copied from Venafi Can you call in a script for some scopolamine patches for our cruise we are taking soon, just in case we need them? Thank you, Isak rx pended Soumya Waldron Ma documented in this encounter [facility] 03-08-2022 Miscellaneous Notes The following approved medication requests have been transmitted electronically. Signed Prescriptions Disp Refills naltrexone-bupropion (CONTRAVE) 8-90 mg ER tablet 360 tablet 0 Sig: Take 2 tablets by mouth twice daily. BMI 31.79 KATHLEEN: No Authorizing Provider: TO MATTHEWS naltrexone-bupropion (CONTRAVE) 8-90 mg ER tablet 120 tablet 0 Sig: Take 2 tablets by mouth twice daily. 2 tablets PO twice daily, BMI 31.79 KATHLEEN: No Authorizing Provider: TO MATTHEWS DO Patient reports her Contrave Rx should have gone to [facility]. Has been on it for 5 weeks, but not as instructed b/c she didn't know an Rx was sent to [facility] (cancelled this Rx at [facility], per patient request- spoke with pharmacist). Has been taking the bupropion she already had. Needs contrave written to take 2 tabs twice daily, because that is where she is at with it. Needs a 30 day supply for #120 pills (gets a coupon from [facility] if it's written for 120 pills), and needs a 90 day supply sent to [facility]. Please phone patient with any questions. documented in this encounter [facility] 03-07-2022 Miscellaneous Notes Addended by: ESTRELLA SINGH on: 03/07/2022 09:56 AM Modules accepted: Orders The following approved medication requests have been transmitted electronically. Signed Prescriptions Disp Refills naltrexone-bupropion (CONTRAVE) 8-90 mg ER tablet 70 tablet 1 Si tablet PO once daily in the morning for 1 week; increase as tolerated in weekly intervals: 1 tablet twice daily for 1 week; then 2 tablets in the morning and 1 tablet in the evening for 1 week; and then 2 tablets twice daily KATHLEEN: No Authorizing Provider: ESTRELLA SINGH APRN.CNP Patient has been identified by name and date of : Yes Patient phones for refill(s): Pending Prescriptions Disp Refills CONTRAVE 8 MG-90 MG TABLET,EXTENDED RELEASE 70 tablet 1 Si tablet PO once daily in the morning for 1 week; increase as tolerated in weekly intervals: 1 tablet twice daily for 1 week; then 2 tablets in the morning and 1 tablet in the evening for 1 week; and then 2 tablets twice daily KATHLEEN: No Date of last office visit in primary care: OV on 01/17/2022 No appointment scheduled Last 2 Encounter Wt Readings: Date: Wt: 01/17/2022 73.9 kg (163 lb) 12/15/2021 73 kg (161 lb) Please advise. Thank you. KAMERON Cheung documented in this encounter [facility] 01-28-2022 Miscellaneous Notes The following approved medication requests have been transmitted electronically. Signed Prescriptions Disp Refills naltrexone-bupropion (CONTRAVE) 8-90 mg ER tablet 70 tablet 1 Si tablet PO once daily in the morning for 1 week; increase as tolerated in weekly intervals: 1 tablet twice daily for 1 week; then 2 tablets in the morning and 1 tablet in the evening for 1 week; and then 2 tablets twice daily KATHLEEN: No Authorizing Provider: TO MATTHEWS DO documented in this encounter [facility] 12-30-2020 Note Send Summary: Discharge Summary Providers: Provider RoleProvider Name Afshin Richards Note Recipients: Afshin Mckinney MD Required, No PcpMD Discharge: Summary: Admission Date: .28-Dec-2020 05:50:00 Discharge Date: 30-Dec-2020 Attending Physician at Discharge: Afshin Mckinney Admission Reason: Colon polyp Final Discharge Diagnoses: Colon polyp, Acute postoperative pain Procedures: Date: 28-Dec-2020 09:22:00 Procedure Name: 1. Right colectomy 2. 3. 4. 5. Condition at Discharge: Satisfactory Disposition at Discharge: .Home Vital Signs: T PRBPSpO2 [id number]/6595% Date/Time12/30 14: 14: 14: 14: 14:18 Range(36.7C - 37.3C ) (85 - 96 ) (16 - 18 ) (98 - 117 )/ (63 - 78 ) (95% - 96% ) Highest temp of 37.3 C was recorded at 12/30 9:31 Date: Weight/Scale Type:Height: 28-Dec-2020 13:0768.9 kg / yplbvbwa247.1 cm Physical Exam: Constitutional: Pleasant, calm and cooperative, resting in bed, no apparent distress Pulmonary: Lungs CTAB, chest expansion symmetric, unlabored on room air Cardiac: RRR Abdominal: Abdomen soft, round, appropriately tender, and slightly distended. Midline incision with lena, open to air. Wound edges approximated, no erythema. : Voiding spontaneously, adequate amount Extremities: ROM intact, Vickie Psychological: Appropriate for discharge Discharge instructions reviewed. Total time with patient today was 30 minutes, all of which was spent counseling patient on surgical incision care, diet, and bowel function. Hospital Course: Isak Gomez is a 40 year old female with a past medical history of GERD, IBD, and an ascending colon polyp who underwent a right hemicolectomy on 12/28/[address] Mckinney. She tolerated the procedure well and was admitted to a regular nursing floor. Pain has been well controlled with oral medications. Advanced to a soft diet with return of bowel function flatus and stool. On the day of hospital discharge the patient's vital signs and laboratory values were within normal limits. Abdomen soft, round, appropriately tender, and slightly distended. Midline incision with lena, open to air. Wound edges approximated, no erythema. She was happy to discharge home and will follow up in a few weeks. Discharge Information: and Continuing Care: Lab Results - Pending: Surgical Pathology Drawn at 28-Dec-2020 09:01:00 Radiology Results - Pending: None Discharge Instructions: Activity: activity as tolerated. May shower.. May not drive while taking narcotics. No pushing, pulling, or lifting objects greater than 10 pounds for 4 week(s). Weight-bearing Instructions: full weight bearing. Nutrition/Diet: Diet Consistency/Texture: soft, soft diet x 4 weeks, Avoid raw fruits and vegetables for couple weeks and slowly advance into diet as tolerated. Appetitie will return slowly, eat smaller more frequent meals at first, push away from table once full. Encourage Fluids: Drink plenty of a variety of fluids to prevent dehydration. Signs of dehydration are: dry mouth, dark yellow urine in small amounts, and dizziness with change in position or increased feeling of weakness/tiredness. Additive/Supplement: Supplements: impact AR 1 serving by mouth three times a day until gone Wound Care: Wound Site: abdomen Wound Type: surgical incision Change Dressin times a day as needed Cleanse With: soap and water Cover With: no dressing, leave open to air Instructions: no lotions, creams, or tub soaks Other Instructions: You have lena remaining in your incision. These will come out in 1-2 weeks at the outpatient clinic. An appointment will be made for you prior to your discharge. This incision may get wet, pat dry and cover as needed to protect your clothing, otherwise you may leave this incision open to air. Additional Orders: Additional Instructions: Bowel function will be irregular at first. You may experience some loose stool alternating with constipation. This is normal. As your diet advances and you begin to eat more regularly, your stool pattern will also become more regular. Drink plenty of a variety of fluids to prevent dehydration. Signs of dehydration are: dry mouth, dark yellow urine in small amounts, and dizziness with change in position or increased feeling of weakness/tiredness. Colace is a stool softener that you can take twice per day to prevent hard stool or constipation. You will be instructed to use a stool softener while on narcotics, as they may cause constipation. You should not take the Colace for loose watery stool. This is an over the counter medication. For diarrhea stools incorporate foods from the BRAT diet. This is a bland diet that consists of foods low in fiber: bananas, rice, applesauce and toast are lena of the diet. You can also add tea, tapioca and yogurt if you would like. Be sure to drink plen (more content not included)... [facility] 12-28-2020 Note History of Present I llness: /Lactating: Are You no Are You Currently Breastfeedingno History Present Illness: Reason for surgery: right hemicolectomy HPI: 40 year old female with incidentally discovered ascending colon mass 2cm in size with fragment biopsy demonstrating tubulovillous adenoma. Risks and benefits of the procedure were discussed and patient agrees to proceed with open right hemicolectomy. Allergies: Allergies: Flagyl: Unknown Keflex: Unknown Entex: Unknown clarithromycin: Unknown Celexa: Unknown penicillin: Unknown minocycline: Unknown Home Medication Review: Home Medications Reviewed: yes Impression/Procedure: Impression and Planned Procedure: 40 year old female with incidentally discovered ascending colon mass 2cm in size with fragment biopsy demonstrating tubulovillous adenoma. Risks and benefits of the procedure were discussed and patient agrees to proceed with open right hemicolectomy. ERAS (Enhanced Recovery After Surgery): ERAS Patient: no Physical Exam by System: Constitutional: Well developed, awake/alert, no distress Eyes: PERRL ENMT: mucous membranes moist Head/Neck: Neck supple, no apparent injury Respiratory/Thorax: Patent airways, CTAB Cardiovascular: Regular, rate and rhythm Gastrointestinal: soft, NT, ND Extremities: normal extremities, no cyanosis or edema Skin: Warm and dry Consent: COVID-19 Consent: COVID-19 Risk ConsentSurgeon has reviewed lanza risks related to the risk of thang COVID-19 and if they contract COVID-19 what the risks are. Signatures/Attestation: Note Completion: I am a: Resident/Fellow Attending AttestationI saw and evaluated the patient. I personally obtained the lanza and critical portions of the history and physical exam or was physically present for lanza and critical portions performed by the resident/fellow. I reviewed the resident/fellows documentation and discussed the patient with the resident/fellow. I agree with the resident/fellows medical decision making as documented in the note. I personally evaluated the patient [id number] Attending Provider Inpatient Certification StatementI certify this patients need for inpatient care based on the above documentation including; the order to admit as inpatient, the anticipated length of stay, diagnosis, problem list and plan of care, and discharge plan. Admission Order - View OnlyCurrent Admission Order. Admit to Inpatient [place] [facility] Admitting Diagnosis, K63.5 Colon polyp Level of Care, Med/Surg Wai Hernandez Electronic Signatures: Afshin Mckinney) (Signed 28-Dec-2020 10:40) Authored: Note Completion Co-Signer: History of Present Illness, Allergies, Home Medication Review, Impression/Procedure, ERAS, Physical Exam, Consent, Note Completion Wai Hernandez (Resident)) (Signed 28-Dec-2020 05:32) Authored: History of Present Illness, Allergies, Home Medication Review, Impression/Procedure, ERAS, Physical Exam, Consent, Note Completion Last Updated: 28-Dec-2020 10:40 by Afshin Mckinney) [facility] documented as of this encounter (statuses as of 03/04/2022) [facility] History of Past illness Narrative* Problem [...] of this encounter (statuses as of 03/07/2022) [facility] Narrative* Problem [...] 05/30/2014 Atypical nevus of lower leg 04/11/2012 0906/2015 Atypical nevus of thigh 04/11/2012 07/28/20 15 [...] of this encounter (statuses as of 05/10/2022) [facility] Narrative* Problem [...] of this encounter (statuses as of 05/20/2022) [facility] Narrative* Problem [...] of this encounter (statuses as of 05/25/2022) [facility] Narrative* Problem [...] of this encounter (statuses as of 07/11/2022) [facility] Narrative* Problem [...] of this encounter (statuses as of 07/21/2022) [facility] Narrative* Problem [...] of this encounter (statuses as of 08/11/2022) [facility] Narrative* Problem [...] of this encounter (statuses as of 08/25/2022) [facility] Narrative* Problem [...] of this encounter (statuses as of 09/07/2022) [facility]* Problem [...] of this encounter (statuses as of 09/08/2022) [facility] N[facility]* Problem [...] of this encounter (statuses as of 09/09/2022) [facility] N[facility]* Problem [...] of this encounter (statuses as of 09/14/2022) [facility] N[facility]* Problem [...] of this encounter (statuses as of 09/15/2022) [facility]* Problem [...] of this encounter (statuses as of 09/16/2022) [facility] N[facility]* Problem [...] of this encounter (statuses as of 10/06/2022) [facility] N[facility]* Problem [...] of this encounter (statuses as of 10/12/2022) [facility] N[facility]* Problem [...] of this encounter (statuses as of 10/27/2022) [facility]* Problem [...] of this encounter (statuses as of 10/29/2022) [facility]* Problem [...] of this encounter (statuses as of 10/31/2022) [facility] N[facility]* Problem [...] of this encounter (statuses as of 11/24/2022) [facility]* Problem [...] of this encounter (statuses as of 11/25/2022) [facility] N[facility]* Problem [...] of this encounter (statuses as of 12/06/2022) [facility] N[facility]* Problem [...] of this encounter (statuses as of 12/23/2022) [facility]* Problem [...] of this encounter (statuses as of 01/06/2023) [facility]* Problem [...] of this encounter (statuses as of 01/12/2023) [facility]* Problem [...] of this encounter (statuses as of 01/20/2023) [facility]* Problem [...] of this encounter (statuses as of 01/20/2023) [facility]* Problem [...] of this encounter (statuses as of 02/01/2023) [facility]* Problem [...] of this encounter (statuses as of 02/20/2023) [facility]* Problem [...] of this encounter (statuses as of 03/09/2023) [facility]* Problem [...] of this encounter (statuses as of 03/20/2023) [facility]* Problem [...] of this encounter (statuses as of 03/21/2023) [facility]* Problem [...] of this encounter (statuses as of 04/17/2023) [facility]* Problem [...] of this encounter (statuses as of 04/25/2023) [facility]* Problem [...] of this encounter (statuses as of 06/22/2023) [facility]* Problem [...] of this encounter (statuses as of 07/21/2023) [facility]* Problem [...] of this encounter (statuses as of 08/02/2023) [facility]* Problem [...] of this encounter (statuses as of 08/03/2023) [facility]* Problem [...] of this encounter (statuses as of 09/13/2023) [facility] N[facility]ative* Problem [...] of this encounter (statuses as of 10/12/2023) [facility] note* Diagnosis Obesity, Class I, BMI 30-34.9- Primary Obesity, unspecified [facility] Travel advice encounter- Primary Other specified counseling [facility] Diagnosis Recurrent major depressive disorder, in partial remission (HCC)- Primary JGA (generalized anxiety disorder) Generalized anxiety disorder [facility] Diagnosis Recurrent major depressive disorder, in partial remission (HCC) JAG (generalized anxiety disorder) Generalized anxiety disorder [facility] Diagnosis Depression, unspecified depression type- Primary Fatigue, unspecified type Encounter for screening mammogram for malignant neoplasm of breast Other screening mammogram Borderline abnormal thyroid function test Nonspecific abnormal results of thyroid function study Need for Tdap vaccination Need for prophylactic vaccination with combined ygplwqavew-tdhvgln-eupyqucpv (DTP) vaccine Obesity, Class I, BMI 30-34.9 Obesity, unspecified JAG (generalized anxiety disorder) Generalized anxiety disorder [facility] Diagnosis Gross hematuria- Primary [facility] Diagnosis Recurrent major depressive disorder, in partial remission (HCC)- Primary Panic disorder without agoraphobia PTSD (post-traumatic stress disorder) Posttraumatic stress disorder JAG (generalized anxiety disorder) Generalized anxiety disorder [facility] Diagnosis Gross hematuria- Primary Painless hematuria Hematuria, unspecified GERD without esophagitis Esophageal reflux JAG (generalized anxiety disorder) Generalized anxiety disorder [facility] Diagnosis Viral illness- Primary Unspecified viral infection, in conditions classified elsewhere and of unspecified site [facility] Diagnosis OME (otitis media with effusion), bilateral- Primary Viral URI with cough Acute upper respiratory infections of unspecified site Redness of eye, left Redness or discharge of eye [facility] Diagnosis Decreased hearing of both ears- Primary [facility] Diagnosis Recurrent major depressive disorder, in partial remission (HCC) JAG (generalized anxiety disorder) Generalized anxiety disorder [facility] Diagnosis Diarrhea, unspecified type- Primary GERD without esophagitis Esophageal reflux 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 Dyslipidemia Other and unspecified hyperlipidemia Painless hematuria Hematuria, unspecified JAG (generalized anxiety disorder) Generalized anxiety disorder [facility] Diagnosis Recurrent infections- Primary Unspecified infectious and parasitic diseases Need for vaccination Need for prophylactic vaccination and inoculation against unspecified single disease Chronic rhinitis Mild intermittent reactive airway disease without complication Toxic effect of venom, accidental or unintentional, initial encounter [facility] Diagnosis GERD without esophagitis Esophageal reflux [facility] Diagnosis PTSD (post-traumatic stress disorder)- Primary Posttraumatic stress disorder MDD (major depressive disorder), recurrent episode, moderate (HCC) Major depressive disorder, recurrent episode, moderate JAG (generalized anxiety disorder) Generalized anxiety disorder [facility] Diagnosis Recurrent major depressive disorder, in partial remission (HCC) JAG (generalized anxiety disorder) Generalized anxiety disorder [facility] Diagnosis Diarrhea, unspecified type- Primary Encounter for screening mammogram for malignant neoplasm of breast Other screening mammogram GERD without esophagitis Esophageal reflux JAG (generalized anxiety disorder) Generalized anxiety disorder Decreased hearing of both ears Fatigue, unspecified type Depression, unspecified depression type [facility] Diagnostic Procedure Only (Routine) - Pending Review Specialty Diagnoses / Procedures Referred By Contjaspal t Referred To Contact [facility] Diagnoses Encounter for screening mammogram for malignant neoplasm of breast Procedures JULIENNE SCREENING W ANDREAS SCREENING DIGITAL BREAST TOMOSYNTHESIS BI SCREENING MAMMOGRAPHY BI 2-VIEW BREAST INC To Webber DO [address] [place] [address] [facility] [address] [place] [address] Referral ID Status Reason Start Date Expiration Date Visits Requested Visits Authorized [id number] Pending Review Auto-Generat ed Referral 3 11/01/2024 1 1 [facility] Summary Purpose Family History No Family History Records Found Grandmother Name Dates Details Family history of malignant neoplasm of breast(V16.3, Z80.3) Status:Active Grandfather Name Dates Details Family history of malignant neoplasm of colon(V16.0, Z80.0) Status:Active Family history of malignant neoplasm of esophagus(V16.0, Z80.0) Status:Active Advance Directives No Advanced Directives Records FoundDocuments on File Type Date Recorded 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 Advance Directive(s) 03/24/2020 11:58 PM [...] With: Patient Hospital Course Note HNO ID: [id number] Author: Dennis Godfrey MD Service: Hospital Medicine Author Type: Physician Type: Discharge Summary Filed: 04/06/2020 12:55 PM Note Text: DISCHARGE SUMMARY PATIENT NAME: Isak Gomez Code Status: Full Code Highest Readmission [...] Referral Specialty Diagnoses / Procedures Referred By Contac t Referred To Contact Diagnoses Obesity, Class I, BMI 30-34.9 To Matthews, DO [address] [place] [address] Referral ID Status Reason Start Date Expiration Date V isits Requested Visits Authorized [id number] Pending Review 1 1 Specialty Diagnoses / Procedures Referred By Contac t Referred To Contact [facility] Diagnoses Encounter for screening mammogram for malignant neoplasm of breast Procedures JULIENNE SCREENING W ANDREAS SCREENING DIGITAL BREAST TOMOSYNTHESIS BI SCREENING MAMMOGRAPHY BI 2-VIEW BREAST INC CAD To Matthews, DO [address] [place] [address] [facility] [address] [place] [address] Referral ID Status Reason Start Date Expiration Date Visits Requested Visits Authorized [id number] Pending Review Auto-Generat ed Referral 08/10/2022 09/09/2023 1 1 Specialty Diagnoses / Procedures Referred By Ирина t Referred To Contact [facility] Diagnoses HLA B27 (HLA B27 positive) Procedures HLA-B27 PCR HLA I LOW RESOLUTION ONE ANTIGEN EQUIVALENT EACH Von To Winchester, DO [address] [place] [address] [facility] [address] [place] [address] Referral ID Status Reason Start Date Expiration Date Visits Requested Visits Authorized [id number] Authorized PCP Requested Referral Auto-Generate d Referral 01/11/2023 04/11/2023 1 1 Health Concerns Infection Onset Date Last Indicated Resolved Time COVID-19 Rule-Out 10/27/2022 10/27/2022 Infection Onset Date Last Indicated Resolved Time COVID-19 Rule-Out 10/27/2022 10/27/2022 10/27/2022 7:16 PM EST Additional Source Comments INFORMATION SOURCE (unrecogn ized section and content) DATE CREATED AUTHOR AUTHOR'S ORGANIZ ATION 03/20/2021 [employer] DATE CREATED AUTHOR AUTHOR'S ORGANIZ ATION 05/28/2021 [facility] DATE CREATED AUTHOR AUTHOR'S ORGANIZ ATION 06/19/2021 [facility] DATE CREATED AUTHOR AUTHOR'S ORGANIZ ATION 09/14/2023 [facility] DATE CREATED AUTHOR AUTHOR'S GUERO TEJEDA 12/21/2023 [facility] Source Comments (unrecognize d section and content) In the event this informatio n is protected by the Federal Confidentiality of Alcohol and Drug Abuse Patient Records regulations: The Federal rules restrict any use of the information to criminally investigate or prosecute any alcohol or drug abuse patient.[facility] event this information is protected by the Federal Confidentiality of Alcohol and Drug Abuse Patient Records regulations: The Federal rules restrict any use of the information to criminally investigate or prosecute any alcohol or drug abuse patient.[facility] the event this information is protected by the Federal Confidentiality of Alcohol and Drug Abuse Patient Records regulations: The Federal rules restrict any use of the information to criminally investigate or prosecute any alcohol or drug abuse patient.[facility] the event this information is protected by the Federal Confidentiality of Alcohol and Drug Abuse Patient Records regulations: The Federal rules restrict any use of the information to criminally investigate or prosecute any alcohol or drug abuse patient.[facility] the event this information is protected by the Federal Confidentiality of Alcohol and Drug Abuse Patient Records regulations: The Federal rules restrict any use of the information to criminally investigate or prosecute any alcohol or drug abuse patient.[facility] the event this information is protected by the Federal Confidentiality of Alcohol and Drug Abuse Patient Records regulations: The Federal rules restrict any use of the information to criminally investigate or prosecute any alcohol or drug abuse patient.[facility] the event this information is protected by the Federal Confidentiality of Alcohol and Drug Abuse Patient Records regulations: The Federal rules restrict any use of the information to criminally investigate or prosecute any alcohol or drug abuse patient.[facility] the event this information is protected by the Federal Confidentiality of Alcohol and Drug Abuse Patient Records regulations: The Federal rules restrict any use of the information to criminally investigate or prosecute any alcohol or drug abuse patient.[facility] the event this information is protected by the Federal Confidentiality of Alcohol and Drug Abuse Patient Records regulations: The Federal rules restrict any use of the information to criminally investigate or prosecute any alcohol or drug abuse patient.[facility] the event this information is protected by the Federal Confidentiality of Alcohol and Drug Abuse Patient Records regulations: The Federal rules restrict any use of the information to criminally investigate or prosecute any alcohol or drug abuse patient.[facility] the event this information is protected by the Federal Confidentiality of Alcohol and Drug Abuse Patient Records regulations: The Federal rules restrict any use of the information to criminally investigate or prosecute any alcohol or drug abuse patient.[facility] the event this information is protected by the Federal Confidentiality of Alcohol and Drug Abuse Patient Records regulations: The Federal rules restrict any use of the information to criminally investigate or prosecute any alcohol or drug abuse patient.[facility] the event this information is protected by the Federal Confidentiality of Alcohol and Drug Abuse Patient Records regulations: The Federal rules restrict any use of the information to criminally investigate or prosecute any alcohol or drug abuse patient.[facility] the event this information is protected by the Federal Confidentiality of Alcohol and Drug Abuse Patient Records regulations: The Federal rules restrict any use of the information to criminally investigate or prosecute any alcohol or drug abuse patient.[facility] the event this information is protected by the Federal Confidentiality of Alcohol and Drug Abuse Patient Records regulations: The Federal rules restrict any use of the information to criminally investigate or prosecute any alcohol or drug abuse patient.[facility] the event this information is protected by the Federal Confidentiality of Alcohol and Drug Abuse Patient Records regulations: The Federal rules restrict any use of the information to criminally investigate or prosecute any alcohol or drug abuse patient.[facility] the event this information is protected by the Federal Confidentiality of Alcohol and Drug Abuse Patient Records regulations: The Federal rules restrict any use of the information to criminally investigate or prosecute any alcohol or drug abuse patient.[facility] the event this information is protected by the Federal Confidentiality of Alcohol and Drug Abuse Patient Records regulations: The Federal rules restrict any use of the information to criminally investigate or prosecute any alcohol or drug abuse patient.[facility] the event this information is protected by the Federal Confidentiality of Alcohol and Drug Abuse Patient Records regulations: The Federal rules restrict any use of the information to criminally investigate or prosecute any alcohol or drug abuse patient.[facility] the event this information is protected by the Federal Confidentiality of Alcohol and Drug Abuse Patient Records regulations: The Federal rules restrict any use of the information to criminally investigate or prosecute any alcohol or drug abuse patient.[facility] the event this information is protected by the Federal Confidentiality of Alcohol and Drug Abuse Patient Records regulations: The Federal rules restrict any use of the information to criminally investigate or prosecute any alcohol or drug abuse patient.[facility] the event this information is protected by the Federal Confidentiality of Alcohol and Drug Abuse Patient Records regulations: The Federal rules restrict any use of the information to criminally investigate or prosecute any alcohol or drug abuse patient.[facility] the event this information is protected by the Federal Confidentiality of Alcohol and Drug Abuse Patient Records regulations: The Federal rules restrict any use of the information to criminally investigate or prosecute any alcohol or drug abuse patient.[facility] the event this information is protected by the Federal Confidentiality of Alcohol and Drug Abuse Patient Records regulations: The Federal rules restrict any use of the information to criminally investigate or prosecute any alcohol or drug abuse patient.[facility] the event this information is protected by the Federal Confidentiality of Alcohol and Drug Abuse Patient Records regulations: The Federal rules restrict any use of the information to criminally investigate or prosecute any alcohol or drug abuse patient.[facility] the event this information is protected by the Federal Confidentiality of Alcohol and Drug Abuse Patient Records regulations: The Federal rules restrict any use of the information to criminally investigate or prosecute any alcohol or drug abuse patient.[facility] the event this information is protected by the Federal Confidentiality of Alcohol and Drug Abuse Patient Records regulations: The Federal rules restrict any use of the information to criminally investigate or prosecute any alcohol or drug abuse patient.[facility] the event this information is protected by the Federal Confidentiality of Alcohol and Drug Abuse Patient Records regulations: The Federal rules restrict any use of the information to criminally investigate or prosecute any alcohol or drug abuse patient.[facility] the event this information is protected by the Federal Confidentiality of Alcohol and Drug Abuse Patient Records regulations: The Federal rules restrict any use of the information to criminally investigate or prosecute any alcohol or drug abuse patient.[facility] the event this information is protected by the Federal Confidentiality of Alcohol and Drug Abuse Patient Records regulations: The Federal rules restrict any use of the information to criminally investigate or prosecute any alcohol or drug abuse patient.[facility] the event this information is protected by the Federal Confidentiality of Alcohol and Drug Abuse Patient Records regulations: The Federal rules restrict any use of the information to criminally investigate or prosecute any alcohol or drug abuse patient.[facility] the event this information is protected by the Federal Confidentiality of Alcohol and Drug Abuse Patient Records regulations: The Federal rules restrict any use of the information to criminally investigate or prosecute any alcohol or drug abuse patient.[facility] the event this information is protected by the Federal Confidentiality of Alcohol and Drug Abuse Patient Records regulations: The Federal rules restrict any use of the information to criminally investigate or prosecute any alcohol or drug abuse patient.[facility] the event this information is protected by the Federal Confidentiality of Alcohol and Drug Abuse Patient Records regulations: The Federal rules restrict any use of the information to criminally investigate or prosecute any alcohol or drug abuse patient.[facility] the event this information is protected by the Federal Confidentiality of Alcohol and Drug Abuse Patient Records regulations: The Federal rules restrict any use of the information to criminally investigate or prosecute any alcohol or drug abuse patient.[facility] the event this information is protected by the Federal Confidentiality of Alcohol and Drug Abuse Patient Records regulations: The Federal rules restrict any use of the information to criminally investigate or prosecute any alcohol or drug abuse patient.[facility] the event this information is protected by the Federal Confidentiality of Alcohol and Drug Abuse Patient Records regulations: The Federal rules restrict any use of the information to criminally investigate or prosecute any alcohol or drug abuse patient.[facility] the event this information is protected by the Federal Confidentiality of Alcohol and Drug Abuse Patient Records regulations: The Federal rules restrict any use of the information to criminally investigate or prosecute any alcohol or drug abuse patient.[facility] the event this information is protected by the Federal Confidentiality of Alcohol and Drug Abuse Patient Records regulations: The Federal rules restrict any use of the information to criminally investigate or prosecute any alcohol or drug abuse patient.[facility] the event this information is protected by the Federal Confidentiality of Alcohol and Drug Abuse Patient Records regulations: The Federal rules restrict any use of the information to criminally investigate or prosecute any alcohol or drug abuse patient.[facility] the event this information is protected by the Federal Confidentiality of Alcohol and Drug Abuse Patient Records regulations: The Federal rules restrict any use of the information to criminally investigate or prosecute any alcohol or drug abuse patient.[facility] Reason for Visit (unrecogniz ed section and content) Reason Onset Date Comments Refill Request 03/05/2022 Reason Onset Date Comments Refill Request 03/08/2022 Reason Comments Medication Request copied from [email or web address] Reason Comments Anxiety Depression Follow Up Specialty Diagnoses / Procedures Referred By Ирина kelly Referred To Contact Psychiatry / ADULT PSYCHIATRY Diagnoses med check Procedures VIDEO PSYC/PSYL MD Angel Wheeler Lara W, DO [address] [place] [address] Referral ID Status Reason Start Date Expiration Date V isits Requested Visits Authorized [id number] Authorized 11/20/2021 11/19/2022 99 99 Reason Comments Anxiety Follow Up Specialty Diagnoses / Procedures Referred By Contac t Referred To Contact Psychiatry / ADULT PSYCHIATRY Diagnoses virtual follow up Procedures VIDEO PSYC/PSYL EST Feli Benz, DO [address] [place] [address] Feli Benz, DO [address] [place] [address] Referral ID Status Reason Start Date Expiration Date V isits Requested Visits Authorized [id number] Pending Review 07/14/2022 10/12/2022 99 99 Reason [...] VIDEO PSYC/PSYL EST Self Feli Benz, DO [address] [place] [address] Reason Comments Follow Up Reason Comments Cough Pt reported chest co ngestion, bilateral ear decreased hearing, x5 days. Reason Comments Cough eyes red x 6 days, s een yesterday at ent Reason Comments Recheck Follow up bilateral ears; L greater than R Referral ID Status Reason Start Date Expiration Date V isits Requested Visits Authorized [id number] Pending Review 11/24/2022 11/19/2023 99 99 Reason [...] 08/01/2023 Specialty Diagnoses / Procedures Referred By Contac t Referred To Contact Psychiatry / ADULT PSYCHIATRY Diagnoses virtual follow up Procedures VIDEO PSYC/PSYL EST Feli Benz, DO [address] [place] [id number] Angel Feli W, DO [address] [place] [address] Reason Comments Follow Up R Axillary Cyst Care Teams (unrecognized sec tion and content) Director Software Quality Assurance Relationship Specialty Start Date End Date To Matthews, DO [address] [place] [address] PCP - General Family Practice 01/14/13 Director Software Quality Assurance Relationship Specialty Start Date End Date To Matthews, DO [address] [place] [address] PCP - General Family Practice 01/14/13 Director Software Quality Assurance Relationship Specialty Start Date End Date To Matthews, DO [address] [place] [address] PCP - General Family Practice 01/14/13 Director Software Quality Assurance Relationship Specialty Start Date End Date To Matthews, DO [address] [place] [address] PCP - General Family Practice 01/14/13 Director Software Quality Assurance Relationship Specialty Start Date End Date To Matthews, DO [address] [place] [address] PCP - General Family Practice 01/14/13 Director Software Quality Assurance Relationship Specialty Start Date End Date To Matthews, DO [address] [place] [address] PCP - General Family Practice 01/14/13 Director Software Quality Assurance Relationship Specialty Start Date End Date To Matthews, DO [address] [place] [address] PCP - General Family Medicine 01/14/13 Director Software Quality Assurance Relationship Specialty Start Date End Date To Matthews, DO [address] [place] [address] PCP - General Family Medicine 01/14/13 Director Software Quality Assurance Relationship Specialty Start Date End Date To Matthews, DO [address] [place] [address] PCP - General Family Medicine 01/14/13 Director Software Quality Assurance Relationship Specialty Start Date End Date To Matthews, DO [address] [place] [address] PCP - General Family Medicine 01/14/13 Director Software Quality Assurance Relationship Specialty Start Date End Date To Matthews, DO [address] [place] [address] PCP - General Family Medicine 01/14/13 Director Software Quality Assurance Relationship Specialty Start Date End Date To Matthews, DO [address] [place] [address] PCP - General Family Medicine 01/14/13 Director Software Quality Assurance Relationship Specialty Start Date End Date To Matthews, DO [address] [place] [address] PCP - General Family Medicine 01/14/13 Director Software Quality Assurance Relationship Specialty Start Date End Date To Matthews, DO [address] [place] [address] PCP - General Family Medicine 01/14/13 Director Software Quality Assurance Relationship Specialty Start Date End Date To Matthews, DO [address] [place] [address] PCP - General Family Medicine 01/14/13 Director Software Quality Assurance Relationship Specialty Start Date End Date To Matthews, DO [address] [place] [address] PCP - General Family Medicine 01/14/13 Director Software Quality Assurance Relationship Specialty Start Date End Date To Matthews, DO [address] [place] [address] PCP - General Family Medicine 01/14/13 Director Software Quality Assurance Relationship Specialty Start Date End Date To Matthews, DO [address] [place] [address] PCP - General Family Medicine 01/14/13 Director Software Quality Assurance Relationship Specialty Start Date End Date To Matthews, DO [address] [facility] [place] [address] PCP - General Family Medicine 01/14/13 Director Software Quality Assurance Relationship Specialty Start Date End Date To Matthews, DO [address] [facility] [place] [address] PCP - General Family Medicine 01/14/13 Director Software Quality Assurance Relationship Specialty Start Date End Date To Matthews DO [address] [facility] [place] [address] PCP - General Family Medicine 01/14/13 Director Software Quality Assurance Relationship Specialty Start Date End Date To Matthews DO [address] [facility] [place] [address] PCP - General Family Medicine 01/14/13 Director Software Quality Assurance Relationship Specialty Start Date End Date To Matthews DO [address] [facility] [place] [address] PCP - General Family Medicine 01/14/13 Director Software Quality Assurance Relationship Specialty Start Date End Date To Matthews DO [address] [facility] [place] [address] PCP - General Family Medicine 01/14/13 Director Software Quality Assurance Relationship Specialty Start Date End Date To Matthews DO [address] [facility] [place] [address] PCP - General Family Medicine 01/14/13 Director Software Quality Assurance Relationship Specialty Start Date End Date To Matthews, DO [address] [place] [address] PCP - General Family Medicine 01/14/13 Director Software Quality Assurance Relationship Specialty Start Date End Date To Matthews, DO [address] [place], [place] [id number] PCP - General Family Medicine 01/14/13 Director Software Quality Assurance Relationship Specialty Start Date End Date To Matthews, DO [address] [place], [place] [id number] PCP - General Family [facility] 01/14/13 Director Software Quality Assurance Relationship Specialty Start Date End Date To Matthews, DO [address] [place], [place] [address] PCP - General Family [facility] 01/14/13 FOR RECORDS PERTAINING TO PATIENTS WHO [...] BE BASED ON THE PRIMARY CLINICAL RECORDS. [facility] [employer] provides no warranty or guarantee of the accuracy or completeness of information in this document.
[2023-12-29 07:13] LABS: Absolute Lymphocyte Count 1.52 X10^3/uL (0.83-4.51); Absolute Neutrophil Count 2.2 X10^3/uL (2.0-7.7); Basophil# 0.03 X10^3/uL; Basophil% 0.7 % (0-1); Eosinophil# 0.16 X10^3/uL; Eosinophils% 3.8 % (0-5); Hematocrit 40.9 % (37-47); Hemoglobin 13.2 g/dL (12.0-15.0); Lymphocyte # 1.52 X10^3/ul (0.83-4.51); Lymphocyte % 36.3 % (19-41); Mean Corp Hgb Conc 32.3 g/dL (32-36); Mean Corpuscular Hgb 31.7 pg (27.0-32.0); Mean Corpuscular Volume 98.3 fL (81-99); Mean Platelet Vol. 10.4 fl (6.2-12.0); Monocyte# 0.28 X10^3/uL; Monocyte% 6.7 % (0-10); NRBC Flagged by Analyzer 0 % (0-5); Neutrophil # 2.19 X10^3/uL (2.7-7.7); Neutrophil % 52.3 % (47-70); Platelet Count 249 K/mm3 (150-450); RBC Distribution Width CV 13.8 % (11.6-14.6); RBC Distribution Width SD 50.2 fl (35.1-43.9); Red Blood Count 4.16 M/mm3 (4.2-5.4); White Blood Count 4.2 K/mm3 (4.4-11.0)
[2023-12-29 08:01] LABS: ALB/GLOB Ratio 1.2 RATIO (0.9-2.4); AST(SGOT) 12 U/L (15-37); Alanine Aminotransfer ALT/SGPT 22 U/L (13-56); Albumin, Serum 4.1 g/dL (3.2-5.0); Alkaline Phosphatase 71 U/L (45-117); Amylase 52 U/L (25-115); Anion Gap 6 (5-15); BUN 16 mg/dL (7-18); BUN/Creat Ratio 17.9 RATIO (10-20); Calcium,Total 9.1 mg/dL (8.5-10.1); Chloride 109 mmol/L (98-107); Cholesterol 217 mg/dL (200); EST Glomerular Filtration Rate 72 mL/min (>60); Est Glom Filt Rate - Afr Amer 87 mL/min (>60); Globulin 3.4 g/dL (2.2-4.2); Glucose 97 mg/dL (74-106); High Density Lipoprotein 67 mg/dL; Iron 74 ug/dL (50-170); Iron Binding Capacity,Total 353 ug/dL (250-450); LDH 174 U/L (84-246); Lipase 46 U/L (13-75); Potassium 3.5 mmol/L (3.5-5.1); Protein, Total 7.5 g/dL (6.4-8.2); Sodium Level 142 mmol/L (136-145); Triglycerides 53 mg/dL; Very Low Density Lipoprotein 11 mg/dL (5-40)
[2024-01-03 09:08] LABS: Beef <0.10 kU/L (Class 0); Chocolate <0.10 kU/L (Class 0); Codfish <0.10 kU/L (Class 0); Corn <0.10 kU/L (Class 0); Egg, Whole <0.10 kU/L (Class 0); Milk (Cow) <0.10 kU/L (Class 0); Mussels <0.10 kU/L (Class 0); Peanut <0.10 kU/L (Class 0); Pork <0.10 kU/L (Class 0); Salmon <0.10 kU/L (Class 0); Shrimp <0.10 kU/L (Class 0); Soybean <0.10 kU/L (Class 0); Tuna <0.10 kU/L (Class 0); Wheat <0.10 kU/L (Class 0)
[2024-01-03 21:07] LABS: Albumin 4.3 g/dL (2.9-4.4); Alpha-1-Globulins 0.2 g/dL (0.0-0.4); Alpha-2-Globulins 0.5 g/dL (0.4-1.0); Endomysial Antibody IgA Negative (Negative); Gamma Globulin 0.8 g/dL (0.4-1.8); IgG, Quant 967 mg/dL (586-1602); Immunoglobulin A 218 mg/dL (87-352); Immunoglobulin E 2 IU/mL (6-495); Immunoglobulin G, Subclass 1 613 mg/dL (248-810); Immunoglobulin G, Subclass 2 279 mg/dL (130-555); Immunoglobulin G, Subclass 3 14 mg/dL (15-102); Immunoglobulin G, Subclass 4 1 mg/dL (2-96); Immunoglobulin M 44 mg/dL (26-217); PROEL- TOTAL PROTEIN 6.9 g/dL (6.0-8.5); t-Transglutaminase IgA <2 U/mL (0-3)
== END | disposition home or self-care (01) ==
LOC: LAB 06:21
PROVIDERS: PCP Student in an Organized Health Care Education/Training Program; Referring Provider Internal Medicine Gastroenterology; Visit Provider Internal Medicine Gastroenterology
DX: K50.90 Crohn's disease, unspecified, without complications (principal)
CPT/HCPCS: 36415; 80053; 80061; 82150; 82784; 82785; 82787; 83036; 83516; 83540; 83550; 83615; 83690; 84165; 84443; 85025; 85045; 86003; 86005; 86255; 86334; 86480

== ENCOUNTER → 2024-01-05 | Outpatient (CLI) | payer OTHER, SELFPAY ==
[2024-01-09 05:07] LABS: QNTFERON TB Mitogen Value > 10.00 IU/mL (.); QNTFERON TB Nil Value 0 IU/mL (.); QNTFERON TB1+ Ag Value 0 IU/mL (.); QNTFERON TB2+ Ag Value 0 IU/mL (.); QNTIFERON TB Positive Criteria Negative (Negative)
== END | disposition home or self-care (01) ==
LOC: LAB 14:40
PROVIDERS: PCP Student in an Organized Health Care Education/Training Program; Referring Provider Internal Medicine Gastroenterology; Visit Provider Internal Medicine Gastroenterology
DX: K50.90 Crohn's disease, unspecified, without complications (principal)
CPT/HCPCS: 86480

== ENCOUNTER → 2024-01-19 | Outpatient (CLI) | payer OTHER, SELFPAY ==
--- OUTSIDE RECORDS SUMMARY | 2024-01-19 09:06 | XMS RPT_ITS | CCD ---
Author Name Unknown Address [address] [place] [address] Organization [facility] Care Team Providers Care Engineer Of System Development Name Role Phone Hernandez CARPORT ERECTOR, Geri S Unavailable Afshin Mckinney Unavailable Unavailable [...] Facility (3 sources) Cephalexin Drug Allergy 09-27-20 [facility] (2 sources) Citalopram Drug Allergy 09-27-20 [facility] (2 sources) Clindamycin Drug Allergy 09-27-20 16 [facility] (2 sources) guaiFENesin / Pseudoephedrine Drug Allergy 09-27-20 16 [facility] (3 sources) metroNIDAZOLE Drug Allergy 09-27-20 16 [facility] (2 sources) Minocycline Drug Allergy 09-27-20 16 [facility] (2 sources) Penicillin V Drug Allergy 09-27-20 16 [facility] (20 sources) Citalopram Drug Allergy 02-15-20 06 GI Upset [facility] (20 sources) Clarithromycin; Translations: [CLARITHROMYCIN] Drug Allergy 01-08-20 14 [facility] Work Phone: (20 sources) Minocycline; Translations: [MINOCYCLINE] Drug Allergy 02-15-20 06 [facility] (3 sources) Penicillins; Translations: [Penicillins] Allergy to drug (finding) 03-14-20 06 [facility] Other [facility] (1 source) Pseudoephedrine Drug Allergy [facility] Work Phone: (20 sources) Cephalexin; Translations: [CEPHALEXIN] Drug Allergy 05-11-20 09 [facility] Work Phone: (20 sources) Clindamycin; Translations: [CLINDAMYCIN] Drug Allergy 09-27-20 16 Unknown [facility] (20 sources) guaiFENesin / Phenylephrine; Translations: [PHENYLEPHRINE-GUA IFENESIN] Drug Allergy 02-15-20 06 Intolerance [facility] (20 sources) metroNIDAZOLE; Translations: [METRONIDAZOLE HCL] Drug Allergy 01-08-20 14 [facility] Work Phone: (3 sources) Penicillins Propensity to adverse reactions 03-14-20 06 Rash, Itching [facility] Work Phone: (20 sources) Pseudoephedrine; Translations: [PSEUDOEPHEDRINE] Drug Allergy 03-15-20 19 Other: See Comments [facility] (20 sources) Bee Sting; Translations: [BEE STING] Allergy to substance 05-02-20 11 [facility] Work Phone: (20 sources) Penicillins Propensity to adverse reactions 03-14-20 Rash, Itching [facility] Work Phone: (2 sources) Citalopram; Translations: [CITALOPRAM] Drug Allergy 02-15-20 06 [facility] Other [facility] Medications Current Medications Medication Drug Class(es) [...] Drug Class(es) Dates Sig (Normalized) Sig (Original) [id number] 200 actuat albuterol 0.09 mg/actuat metered dose [...] 98.1 [degF] To Matthews DO Work Phone: [facility] 10-03-2023 15:29-0500 Body weight 67.59 kg To Matthews DO Work Phone: [facility] 10-03-2023 15:29-0500 Diastolic blood pressure 60 mm[Hg] To Matthews DO Work Phone: [facility] 10-03-2023 15:29-0500 Heart rate 80 /min To Matthews DO Work Phone: [facility] 10-03-2023 15:29-0500 Respiratory rate 12 /min To Matthews DO Work Phone: [facility] 10-03-2023 15:29-0500 Systolic blood pressure 110 mm[Hg] To Matthews DO Work Phone: [facility] 01-19-2023 14:22-0500 Body weight 68.95 kg Maggie Joyce MD Work Phone: [facility] 01-19-2023 14:22-0500 Diastolic blood pressure 51 mm[Hg] Maggie Joyce MD Work Phone: [facility] 01-19-2023 14:22-0500 Heart rate 84 /min Maggie Joyce MD Work Phone: [facility] 01-19-2023 14:22-0500 SaO2% (BldA) [Mass fraction] 98 % Maggie Joyce MD Work Phone: [facility] 01-19-2023 14:22-0500 Systolic blood pressure 119 mm[Hg] Maggie Joyce MD Work Phone: [facility] 01-11-2023 19:17-0500 Body temperature 98.29 [degF] To Matthews DO Work Phone: [facility] 01-11-2023 19:17-0500 Body weight 68.95 kg To Matthews DO Work Phone: [facility] 01-11-2023 19:17-0500 Diastolic blood pressure 60 mm[Hg] To Matthews DO Work Phone: [facility] 01-11-2023 19:17-0500 Heart rate 76 /min To Matthews DO Work Phone: [facility] 01-11-2023 19:17-0500 Respiratory rate 16 /min To Matthews DO Work Phone: [facility] 01-11-2023 19:17-0500 Systolic blood pressure 120 mm[Hg] To Matthews DO Work Phone: [facility] 11-22-2022 15:04-0500 Diastolic blood pressure 90 mm[Hg] Kimber Haagen GUEST LAUNDRY ATTENDANT.DENTAL ASSISTING INSTRUCTOR Work Phone: [facility] 11-22-2022 15:04-0500 Heart rate 84 /min Kimber Haagen GUEST LAUNDRY ATTENDANT.DENTAL ASSISTING INSTRUCTOR Work Phone: [facility] 11-22-2022 15:04-0500 Respiratory rate 18 /min Kimber Haagen GUEST LAUNDRY ATTENDANT.DENTAL ASSISTING INSTRUCTOR Work Phone: [facility] 11-22-2022 15:04-0500 Systolic blood pressure 128 mm[Hg] Kimber Haagen GUEST LAUNDRY ATTENDANT.DENTAL ASSISTING INSTRUCTOR Work Phone: [facility] 10-29-2022 12:03-0500 Body temperature 98.29 [degF] Torie Praisler-Wood GUEST LAUNDRY ATTENDANT.DENTAL ASSISTING INSTRUCTOR Work Phone: [facility] 10-29-2022 12:03-0500 Body weight 70.31 kg Torie Praisler-Wood GUEST LAUNDRY ATTENDANT.DENTAL ASSISTING INSTRUCTOR Work Phone: [facility] 10-29-2022 12:03-0500 Diastolic blood pressure 98 mm[Hg] Torie Praisler-Wood GUEST LAUNDRY ATTENDANT.DENTAL ASSISTING INSTRUCTOR Work Phone: [facility] 10-29-2022 12:03-0500 Heart rate 102 /min Torie Praisler-Wood GUEST LAUNDRY ATTENDANT.DENTAL ASSISTING INSTRUCTOR Work Phone: [facility] 10-29-2022 12:03-0500 Respiratory rate 16 /min Torie Praisler-Wood GUEST LAUNDRY ATTENDANT.DENTAL ASSISTING INSTRUCTOR Work Phone: [facility] 10-29-2022 12:03-0500 SaO2% (BldA) [Mass fraction] 99 % Torie Troncoso-Eliseo GUEST LAUNDRY ATTENDANT.DENTAL ASSISTING INSTRUCTOR Work Phone: [facility] 10-29-2022 12:03-0500 Systolic blood pressure 160 mm[Hg] Torie Troncoso-Wood GUEST LAUNDRY ATTENDANT.DENTAL ASSISTING INSTRUCTOR Work Phone: [facility] 10-27-2022 07:59-0500 Body temperature 98.01 [degF] Zaki Pendlebury GUEST LAUNDRY ATTENDANT.DENTAL ASSISTING INSTRUCTOR Work Phone: [facility] 10-27-2022 07:59-0500 Body weight 69.31 kg Zaki Anneceliablack GUEST LAUNDRY ATTENDANT.DENTAL ASSISTING INSTRUCTOR Work Phone: [facility] 10-27-2022 07:59-0500 Diastolic blood pressure 78 mm[Hg] Zaki Pendlebury GUEST LAUNDRY ATTENDANT.DENTAL ASSISTING INSTRUCTOR Work Phone: [facility] 10-27-2022 07:59-0500 Heart rate 115 /min Zaki Pendlebury GUEST LAUNDRY ATTENDANT.DENTAL ASSISTING INSTRUCTOR Work Phone: [facility] 10-27-2022 07:59-0500 Respiratory rate 18 /min Zaki Pendlebury GUEST LAUNDRY ATTENDANT.DENTAL ASSISTING INSTRUCTOR Work Phone: [facility] 10-27-2022 07:59-0500 SaO2% (BldA) [Mass fraction] 100 % Zaki Pendlebury GUEST LAUNDRY ATTENDANT.DENTAL ASSISTING INSTRUCTOR Work Phone: [facility] 10-27-2022 07:59-0500 Systolic blood pressure 132 mm[Hg] Zaki Pendlebury GUEST LAUNDRY ATTENDANT.DENTAL ASSISTING INSTRUCTOR Work Phone: [facility] 10-11-2022 16:35-0500 Body temperature 97.5 [degF] To Matthews DO Work Phone: [facility] 10-11-2022 16:35-0500 Body weight 69.4 kg To Mtathews DO Work Phone: [facility] 10-11-2022 16:35-0500 Diastolic blood pressure 80 mm[Hg] To Matthews DO Work Phone: [facility] 10-11-2022 16:35-0500 Heart rate 80 /min To Matthews DO Work Phone: [facility] 10-11-2022 16:35-0500 Respiratory rate 16 /min To Matthews DO Work Phone: [facility] 10-11-2022 16:35-0500 Systolic blood pressure 120 mm[Hg] To Matthews DO Work Phone: [facility] 09-08-2022 17:33-0400 Body temperature 98.2 [degF] Romana Athy PA-C Work Phone: [facility] 09-08-2022 17:33-0400 Body weight 70.31 kg Romana Athy PA-C Work Phone: [facility] 09-08-2022 17:33-0400 Diastolic blood pressure 82 mm[Hg] Romana Athy PA-C Work Phone: [facility] 09-08-2022 17:33-0400 Heart rate 80 /min Romana Athy PA-C Work Phone: [facility] 09-08-2022 17:33-0400 Respiratory rate 16 /min Romana Athy PA-C Work Phone: [facility] 09-08-2022 17:33-0400 SaO2% (BldA) [Mass fraction] 98 % Romana Athy PA-C Work Phone: [facility] 09-08-2022 17:33-0400 Systolic blood pressure 132 mm[Hg] Romana Athy PA-C Work Phone: [facility] 08-10-2022 19:24-0400 Body temperature 98.4 [degF] To Matthews DO Work Phone: [facility] 08-10-2022 19:24-0400 Body weight 72.58 kg To Matthews DO Work Phone: [facility] 08-10-2022 19:24-0400 Diastolic blood pressure 70 mm[Hg] To Matthews DO Work Phone: [facility] 08-10-2022 19:24-0400 Heart rate 80 /min To Matthews DO Work Phone: [facility] 08-10-2022 19:24-0400 Respiratory rate 16 /min To Matthews DO Work Phone: [facility] 08-10-2022 19:24-0400 Systolic blood pressure 110 mm[Hg] To Matthews DO Work Phone: [facility] 11-24-2020 13:12-0500 BMI (Body Mass Index) 30.47 kg/m2 Afshin Hank ZT-Jevuhll-Mshbfco 2099 Work Phone: 11-24-2020 13:12-0500 Body weight 70.76 kg Afshin Hank QQ-Iyxdmet-Bvrxz ll 2099 Work Phone: 11-24-2020 13:12-0500 BP Diastolic 74 mm[Hg] Afshin Hank LF-Mhgcxdz-Ihhwf ll 2099 Work Phone: 11-24-2020 13:12-0500 BP Systolic 123 mm[Hg] Afshin Hank KL-Esutxsn-Etizm ll 2099 Work Phone: 11-24-2020 13:12-0500 BSA (Body Surface Area) 1.68 m2 Afshin Hank CR-Livyoid-Jejggly 2099 Work Phone: 11-24-2020 13:12-0500 Height 152.4 cm Afshin Hank AW-Jkfurmh-Qqhbz ll 2099 Work Phone: 11-24-2020 13:12-0500 Pulse (Heart Rate) 76 /min Afshin Hank CQ-Bitgmse-Zj lwell 2099 Work Phone: 08-24-2017 09:01-0400 BMI (Body Mass Index) 26.87 kg/m2 Geri Ng NP [facility] 08-24-2017 09:01-0400 Body Temperature 98.1 [degF] Geri Clarks CARPORT ERECTOR [facility] 08-24-2017 09:01-0400 BP Diastolic 62 mm[Hg] Geri Hernandez CARPORT ERECTOR [facility] 08-24-2017 09:01-0400 BP Systolic 94 mm[Hg] Geri Clarks CARPORT ERECTOR [facility] 08-24-2017 09:01-0400 Height 152.4 cm Geri Mamou CARPORT ERECTOR [facility] 08-24-2017 09:01-0400 Pulse (Heart Rate) 73 /min Geri Sheatings CARPORT ERECTOR [facility] 08-24-2017 09:01-0400 Respiratory Rate 16 /min Geri Sheatings CARPORT ERECTOR [facility] 08-24-2017 09:01-0400 Weight 62.42 kg Geri Mamou CARPORT ERECTOR [facility] 08-24-2017 09:01-0400 Weight 62.41 kg Geri Clarks CARPORT ERECTOR [facility] 09-27-2016 09:00-0500 BSA (Body Surface Area) 1.68 m2 Geri Mamou CARPORT ERECTOR [facility] Encounters Encounter Date Encounter Type Care Provider Facility Start: 10-03-2023 End: 10-04-2023 ambulatory TO MATTHEWS Facility:[facility] Start: 10-03-2023 End: 10-03-2023 Patient encounter procedure To Matthews DO Work Phone: [facility] [place] Procedures Date Procedure Procedure Detail Performing Clinician Start: 11-03-2022 Mammography Kimber tompkins APRN.DENTAL ASSISTING INSTRUCTOR Work Phone: Start: 10-11-2022 Urnls dip stick/tabl et rgnt auto w/o microscopy To Matthews DO Work Phone: Start: 09-08-2022 Urnls dip stick/tabl et rgnt auto w/o microscopy Romana Zavala PA-C Work Phone: Start: 12-14-2020 Antibody screen Plan of Treatment Date Care Activity Detail Author Start: 08-10-2032 Urine microalbumin profile [facility] Start: 09-22-2025 HPV TESTING HPV TESTING [facility] Start: 09-22-2025 PAP TESTING PAP TESTING [facility] Start: 10-03-2024 Annual PCP Team Oval Or Circular Glass Cutter andre Disease Visit Annual PCP Team Chronic Disease Visit [facility] Start: 10-03-2024 Covid-19 Vaccine ( season) Covid-19 Vaccine ( season) [facility] Immunizations Immunization Date Immunization Notes Care Provider Fa cilicindi 01-19-2023 pneumococcal polysaccharide vaccine, 23 valent Maggie Joyce MD Work Phone: [facility] 08-22-2022 influenza virus vacc ine, unspecified formulation Feli Benz DO Work Phone: [facility] 08-10-2022 tetanus toxoid, redu bhupinder diphtheria toxoid, and acellular pertussis vaccine, adsorbed To Matthews DO Work Phone: [facility] Work Phone: 08-31-2020 influenza, injectabl e, quadrivalent, preservative free To Matthews DO Work Phone: [facility] Work Phone: 08-17-2017 influenza, seasonal, injectable To Matthews DO Work Phone: [facility] Work Phone: 09-14-2013 influenza virus vacc ine, unspecified formulation To Matthews DO Work Phone: [facility] 03-01-2011 tetanus toxoid, redu bhupinder diphtheria toxoid, and acellular pertussis vaccine, adsorbed To Matthews DO Work Phone: [facility] Work Phone: 09-18-2009 novel influenza-H1N1 -09, all formulations To Matthews DO Work Phone: [facility] Work Phone: 08-21-2009 influenza virus vacc ine, live, attenuated, for intranasal use To Matthews DO Work Phone: [facility] Work Phone: 08-26-2008 influenza virus vacc ine, unspecified formulation To Matthews DO Work Phone: [facility] Work Phone: 10-19-2007 influenza virus vacc ine, unspecified formulation To Matthews DO Work Phone: [facility] Work Phone: 09-15-2005 influenza virus vacc ine, unspecified formulation To Matthews DO Work Phone: [facility] Work Phone: Payers Date Payer Category Payer Unknown [facility] [employer] [id number] 2011-Present [phone] [address] [place] [address] PPO [id number] 2011 Unknown [facility] [employer] [id number] 2011-Present [phone] [address] [place] [address] PPO [id number] 2011 Unknown [id number] Social History Date Type Detail Facility Assertion Tobacco smoking consumption unknown (finding) [facility] Work Phone: Start: 05-07-2020 End: 09-08-2022 Tobacco smoking status NHIS Never smoked tobacco [facility] Work Phone: Start: 01-17-2022 End: 10-03-2023 Alcohol intake Current drinker of alcohol (finding) [facility] Start: 04-28-2021 End: 11-21-2022 History SDOH Alcohol Frequency 3 [facility] Start: 04-28-2021 End: 11-21-2022 History SDOH Alcohol Std Drinks 1 [facility] Start: 08-31-2010 History SDOH Alcohol Comment Rarely [facility] Start: 04-28-2021 End: 11-21-2022 History SDOH Social Connections Phone 5 [facility] Start: 04-28-2021 End: 11-21-2022 History SDOH Social Connections Get Together 2 [facility] Start: 04-18-2020 Education 17 [facility] Start: 05-07-2020 End: 09-08-2022 Tobacco Comment Step father smoked in childhood. Spouse ex-smoker last 13 years. [facility] Start: 1980 Sex Assigned At Female [facility] Start: 12-18-2021 End: 10-11-2022 Exposure to SARS-CoV-2 (event) Not sure [facility] Start: 05-07-2020 End: 09-08-2022 Tobacco use and exposure Smokeless tobacco non-user [facility] Work Phone: Start: 11-21-2022 History SDOH Social Connections Get Together 98 [facility] Start: 11-21-2022 End: 04-25-2023 History of Social function [facility] Start: 11-21-2022 End: 04-25-2023 Social connection and isolation panel [facility] How often do you get together with friends or relatives? Patient refused [facility] Do you belong to any clubs or organizations such as jew groups, unions, fraternal or athletic groups, or school groups? Yes [facility] Are you now , , , , never or living with a partner? [facility] How often to you hav e a drink containing alcohol? Monthly or less [facility] How many standard dr inks containing alcohol do you have on a typical day? 1 or 2 [facility] How often do you hav e 6 or more drinks on 1 occasion? Never [facility] Do you feel stress - tense, restless, nervous, or anxious, or unable to sleep at night because your mind is troubled all the time - these days [OSQ] To some extent [facility] (I/We) worried elba er (my/our) food would run out before (I/we) got money to buy more. Never true [facility] In the past 12 month s, was there a time when you were not able to pay the mortgage or rent on time? No [facility] Start: 12-14-2021 Gender identity Identifies as female gender (finding) [facility] Functional Status Date Assessment Result Facility NEGATED: Highlighted row Functional performance Functional status health issues are not documented Disease LX-Qdhqgqz-Mpodfms 2100 Work Phone: Mental Status Date Assessment Result Facility NEGATED: Highlighted row Cognitive function [Interpretation] Cognitive status health issues are not documented Disease RW-Fzgfiua-Qmcpbgx 2099 Work Phone: Clinical Notes 12-06-2013 to 10-11-2023 To Matthews DO - 10/11/2023 6:17 PM ESTPatient InstructionsFeli Benz DO - 09/12/2023 3:02 PM EDTTelephone Encounter - Tania Robertson - 08/02/2023 10:30 AM EDTPatient Instructions Note Date & Type Note Facility 10-11-2023 Note HNO ID: [id number] Author: To Matthews, Service: ? Author Type: [...] seen recently by Gastroenterology Dr. Brock at [facility], has had testing of IBD panel with [...] with Dr. Mckinney with 2 day hospitalization. [facility] presentation 01.11.21 with abdominal pain diagnosed as [...] airway disease Severe pre-eclampsia, condition or complication [facility] [place], kidney x2 Vitamin D [...] DANDC and ablation Dr. Raoul Rushing HERNIA PATCH,VENTRALEX,[id number] abdomen STEROTACTIC GUIDE BREAST BX 10/01/2012 u/s guidance of left breast VAGINAL HYSTERECTOMY right Ovary remains Current Outpatient Medications Medication Sig clonazePAM (KL (more content not included)... [facility] 10-11-2023 History of Presen t illness [...] seen recently by Gastroenterology Dr. Brock at [facility], has had testing of IBD panel with [...] with Dr. Mckinney with 2 day hospitalization. [facility] presentation 01.11.21 with abdominal pain diagnosed as [...] wants to avoid pH manometry testing and Ojnathan procedure if she is able. Mental health, [...] airway disease Severe pre-eclampsia, condition or complication [facility] Stone, kidney x2 Vitamin D [...] D&C and ablation Dr. Silveira S HERNIA PATCH,VENTRALEX,[id number] abdomen STEROTACTIC GUIDE BREAST BX 10/01/2012 u/s [...] See patient instructions. To Matthews DO [address] [place] [address] documented in this encounter [facility] 10-03-2023 Instructions To Matthews DO - 10/03/2023 4:16 PM EST [phone] documented in this encounter [facility] 09-12-2023 Note HNO ID: [id number] Author: Feli Benz DO Service: ? Author [...] visit. Either the patient or their legal pharmacy services representative has been informed of the risks and benefits of -- and alternatives to -- treatment through a remote evaluation and consents to proceed with the evaluation remotely. Reason for Visit: Outpatient follow-up and safety monitoring of previously prescribed psychiatric medication, psychotherapy or other treatment CC: depression follow HPI: Her half sister was hit by a drunk furniture mover driver on AUG 26 and lost her [...] airway disease Severe pre-eclampsia, condition or complication [facility] Stone, kidney x2 Vitamin D [...] DANDC and ablation Dr. Silveira S HERNIA PATCH,VENTRALEX,[id number] abdomen STEROTACTIC GUIDE BREAST BX 10/01/2012 u/s [...] Furoate (FLONASE S (more content not included)... [facility] 09-12-2023 History of Presen t illness [...] visit. Either the patient or their legal pharmacy services representative has been informed of the risks and benefits of -- and alternatives to -- treatment through a remote evaluation and consents to proceed with the evaluation remotely. Reason for Visit: Outpatient follow-up and safety monitoring of previously prescribed psychiatric medication, psychotherapy or other treatment CC: depression follow HPI: Her half sister was hit by a drunk furniture mover driver on AUG 26 and lost her [...] airway disease Severe pre-eclampsia, condition or complication [facility] Stone, kidney x2 Vitamin D [...] D&C and ablation Dr. Silveira S HERNIA PATCH,VENTRALEX,[id number] abdomen STEROTACTIC GUIDE BREAST BX 10/01/2012 u/s [...] which included preparing to see the patient, wtte-fa-dawp patient care, and completing clinical documentation. ADD ON PSYCHOTHERAPY CODE : No SIGNATURE: Feli Benz DO PATIENT NAME: Isak Gomez DATE: September 12, 2023 TIME: 3:02 PM documented in this encounter [facility] 08-02-2023 Miscellaneous Notes The following medication(s) is [...] accordingly Tania Robertson documented in this encounter [facility] 06-22-2023 Miscellaneous Notes On 04/25/23 provider prescribed a 90 day supply. The following medication(s) is being requested: LAST APPT - 06/12/23 NEXT APPT - 08/22/23 Requested Prescriptions Pending Prescriptions Disp Refills buPROPion XL (WELLBUTRIN XL) 300 mg 24 hr tablet 90 tablet 0 Sig: Take 1 tablet by mouth once daily. Please process accordingly Tania Robertson documented in this encounter [facility] 06-12-2023 Note HNO ID: [id number] Author: Feli Benz, DO Service: ? Author [...] visit. Either the patient or their legal pharmacy services representative has been informed of the risks and benefits of -- and alternatives to -- treatment through a remote evaluation and consents to proceed with the evaluation remotely. Reason for Visit: Outpatient follow-up and safety monitoring of previously prescribed psychiatric medication, psychotherapy or other treatment CC: follow up Feeling less anxious HPI: She is going to [facility] [employer] and letting her son drive a bit as he is a new furniture mover driver. She feels less anxious and doing [...] airway disease Severe pre-eclampsia, condition or complication [facility] hospitalization Stone, kidney x2 Vitamin D [...] DANDC and ablation Dr. Silveira S HERNIA PATCH,VENTRALEX,[id number] abdomen STEROTACTIC GUIDE BREAST BX 10/01/2012 u/s [...] visit. ROS: GENE (more content not included)... [facility] 04-25-2023 Note HNO ID: [id number] Author: Feli Benz, DO Service: ? Author [...] visit. Either the patient or their legal pharmacy services representative has been informed of the risks [...] airway disease Severe pre-eclampsia, condition or complication [place] [facility] Stone, kidney x2 Vitamin D [...] DANDC and ablation Dr. Silveira S HERNIA PATCH,VENTRALEX,[id number] abdomen STEROTACTIC GUIDE BREAST BX 10/01/2012 u/s [...] mouth. albuterol HF (more content not included)... [facility] 04-25-2023 History of Presen t illness [...] visit. Either the patient or their legal pharmacy services representative has been informed of the risks [...] airway disease Severe pre-eclampsia, condition or complication [place] [facility] Stone, kidney x2 Vitamin D [...] D&C and ablation Dr. Silveira S HERNIA PATCH,VENTRALEX,[id number] abdomen STEROTACTIC GUIDE BREAST BX 10/01/2012 u/s [...] which included preparing to see the patient, [id number] patient care, and completing clinical documentation. ADD ON PSYCHOTHERAPY CODE : No SIGNATURE: Feli Benz DO PATIENT NAME: Isak Gomez DATE: April 25, 2023 TIME: 11:14 AM documented in this encounter [facility] 04-16-2023 Miscellaneous Notes She needs to discuss this with Dr. Brokc if he has been following her for [...] chart message back or phone number is [phone] if needed. Please see pt message Soumya Ureña documented in this encounter [facility] 03-20-2023 Miscellaneous Notes Patient requesting refill(s): [facility] Last Seen: 01/26 Upcoming appt: 04/25 Requested Prescriptions Pending Prescriptions Disp Refills vilazodone (VIIBRYD) 20 mg tablet 90 tablet 0 Sig: Take 1 tablet by mouth once daily. vilazodone (VIIBRYD) 10 mg tablet 90 tablet 0 Sig: Take 1 tablet by mouth once daily. Please process accordingly documented in this encounter [facility] 03-17-2023 Miscellaneous Notes Pharmacy faxed requesting refill(s): [facility] Requested Prescriptions Pending Prescriptions Disp Refills buPROPion XL (WELLBUTRIN XL) 300 mg 24 hr tablet 90 tablet 0 Sig: Take 1 tablet by mouth once daily. Please process accordingly Deann Wheeler documented in this encounter [facility] 02-20-2023 Miscellaneous Notes Pt notified of results [...] obtain these 2 labs from medite at [facility] To Matthews DO Pt called in to see if we had the results for the Celiac panel or the HLA-B27 PCR. I told her I could see the other lab results, but not those ones yet. documented in this encounter [facility] 01-26-2023 Note HNO ID: [id number] Author: Feli Benz DO Service: ? Author Type: Physician Type: Progress Notes Filed: 01/27/2023 9:11 AM Note Text: PSYC FOLLOW UP - PSYCHIATRIC PROGRESS NOTE CC: doing well With the patient consent, visit was performed virtually. 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 [...] doing better has a new psychiatrist in [place] March 19. Risks and benefits of the [...] airway disease Severe pre-eclampsia, condition or complication [place] [facility] Stone, kidney x2 Vitamin D [...] DANDC and ablation Dr. Silveira S HERNIA PATCH,VENTRALEX,[id number] abdomen STEROTACTIC GUIDE BREAST BX 10/01/2012 u/s [...] swollen nodes. ENDOCRINE: (more content not included)... [facility] 01-20-2023 Miscellaneous Notes Patient phones requesting refills as follows: Requested Prescriptions Pending Prescriptions Disp Refills esomeprazole (NEXIUM) 40 mg capsule 180 capsule 5 Sig: Take 1 capsule by mouth twice daily before meals. 1/2 hr before meal. SKIP-01/11/23 Labs-01/12/23 NOV-none med filled 01/10/22 Please review and advise. Valorie Mcintosh LPN documented in this encounter [facility] 01-19-2023 Note HNO ID: [id number] Author: Maggie Joyce MD Service: ? Author [...] course of subcutaneous immunotherapy as prescribed by [place] [facility] in 2013. Denies systemic reactions to [...] 08, 2014. 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 REVIEW OF SYSTEMS: SINUSITIS: See [place] ASTHMA: The patient has no history of asthma. ECZEMA: The patient has no history of eczema. URTICARIA:The patient does not have a history of urticaria and/or angioedema. GERD: See [place] INSECT STING: The patient does not have [...] Allergic rhinitis. Immunotherapy in past, Dr. Bond [facility] ENT. Depression Fibrosclerosis of breast H. 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 [facility] 01-19-2023 History of Presen t illness [...] course of subcutaneous immunotherapy as prescribed by [place] [facility] in 2013. Denies systemic reactions to [...] 08, 2014. 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 REVIEW OF SYSTEMS: SINUSITIS: See [place] ASTHMA: The patient has no history of asthma. ECZEMA: The patient has no history of eczema. URTICARIA:The patient does not have a history of urticaria and/or angioedema. GERD: See [place] INSECT STING: The patient does not have [...] unspecified Allergic rhinitis. Immun[facility] in past, [facility]. Depression Fibrosclerosis of breast H. 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 Silveira S HERNIA PATCH,VENTRALEX,[id number] abdomen STEROTACTIC GUIDE BREAST BX 10/01/2012 u/s guidance of left breast VAGINAL HYSTERECTOMY right Ovary remains FAMILY HISTORY: Allergic rhinitis:yes: mom and son. Asthma: yes: son. Eczema: no. Cystic fibrosis: no. Immunodeficiency: no. 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 She may also use wmwh-yhn-[id number] olopatadine eyedrops as needed. 3.) Reactive airways [...] Maggie Joyce MD documented in this encounter [facility] 01-19-2023 Nurse Note Patient here for consult regarding frequent infections, sinus and ear infections. Recently had tubes inserted in October for inability to hear. Had COVID in February 2020 needing oxygen for 4 months after. Also has seasonal allergy symptoms of nasal congestion and drainage, sneezing and coughing. Zyrtec works well. Suffers year round. Off antihistamines past 5 days. documented in this encounter [facility] 01-11-2023 Note HNO ID: [id number] Author: To Matthews, DO Service: ? Author [...] seen recently by Gastroenterology Dr. Brock at [facility], has had testing of IBD panel with [...] airway disease Severe pre-eclampsia, condition or complication [place] [facility] Stone, kidney x2 Vitamin D [...] DANDC and ablation Dr. Silveira S HERNIA PATCH,VENTRALEX,[id number] abdomen STEROTACTIC GUIDE BREAST BX 10/01/2012 u/s [...] edema Biaxin [ (more content not included)... [facility] 01-11-2023 History of Presen t illness [...] seen recently by Gastroenterology Dr. Brock at [facility], has had testing of IBD panel with [...] airway disease Severe pre-eclampsia, condition or complication [place] [facility] Stone, kidney x2 Vitamin D [...] D&C and ablation Dr. Silveira S HERNIA PATCH,VENTRALEX,[id number] abdomen STEROTACTIC GUIDE BREAST BX 10/01/2012 u/s [...] See patient instructions. To Matthews DO [address] [place] [address] documented in this encounter [facility] 01-06-2023 Miscellaneous Notes Scheduled Please call patient to schedule with either allergy provider from referral from Dr. Brock. documented in this encounter [facility] 12-06-2022 Miscellaneous Notes PA denied- Patient notified. RAHUL requested for vilazodone (VIIBRYD) 10 mg tablet Submitted with [employer] and under review - Lanza: [id number] Daenn Wheeler November 24, 2022 4:46 PM documented in this encounter [facility] 11-24-2022 Note HNO ID: [id number] Author: Feli Benz DO Service: ? Author [...] airway disease Severe pre-eclampsia, condition or complication [place] [facility] Stone, kidney x2 Vitamin D [...] DANDC and ablation Dr. Silveira S HERNIA PATCH,VENTRALEX,[id number] abdomen STEROTACTIC GUIDE BREAST BX 10/01/2012 u/s [...] for this vi (more content not included)... [facility] 11-24-2022 History of Presen t illness [...] airway disease Severe pre-eclampsia, condition or complication [place] [facility] Stone, kidney x2 Vitamin D [...] D&C and ablation Dr. Silveira S HERNIA PATCH,VENTRALEX,[id number] abdomen STEROTACTIC GUIDE BREAST BX 10/01/2012 u/s [...] the date of the service which included [id number] patient care, completing clinical documentation, and obtaining and/or reviewing separately obtained history. ADD ON PSYCHOTHERAPY CODE : No SIGNATURE: Feli Benz DO PATIENT NAME: Isak Gomez DATE: November 24, 2022 TIME: 10:39 AM PAGER: documented in this encounter [facility] 11-22-2022 Instructions Kimber Jorge APRN.DAISY - 11/22/2022 3:23 PM EST Try the steroids. Let me know what happens w/ ENT appt. documented in this encounter [facility] 11-22-2022 History of Presen t illness Narrative [...] airway disease Severe pre-eclampsia, condition or complication [place] [facility] Stone, kidney x2 Vitamin D [...] D&C and ablation Dr. Silveira S HERNIA PATCH,VENTRALEX,[id number] abdomen STEROTACTIC GUIDE BREAST BX 10/01/2012 u/s [...] Kimber Jorge APRN.DAISY documented in this encounter [facility] 10-29-2022 Instructions Torie Arceo APRN.DAISY - 10/29/2022 [...] other serious complaints. documented in this encounter [facility] 10-29-2022 History of Presen t illness Narrative [...] airway disease Severe pre-eclampsia, condition or complication [place] [facility] Stone, kidney x2 Vitamin D [...] D&C and ablation Dr. Silveira S HERNIA PATCH,VENTRALEX,[id number] abdomen STEROTACTIC GUIDE BREAST BX 10/01/2012 u/s [...] Torie Arceo APRN.CNP documented in this encounter [facility] 10-28-2022 Miscellaneous Notes The following approved medication [...] her something with Codeine? Patient's pharmacy is [facility]. Patient does have an appointment with ENT today due to her ear problems (tinnitus) Please review and advise, Jamia Gil RN documented in this encounter [facility] 10-27-2022 Instructions Zaki Frost APRN.DENTAL ASSISTING INSTRUCTOR - 10/27/2022 8:26 AM EST How to [...] pedialyte or Gatorade, or flat sprite or ana-amanda. Start slowly and increase as you are [...] concerning to you. documented in this encounter [facility] 10-27-2022 History of Presen t illness Narrative [...] airway disease Severe pre-eclampsia, condition or complication [place] [facility] Stone, kidney x2 Vitamin D [...] D&C and ablation Dr. Silveira S HERNIA PATCH,VENTRALEX,[id number] abdomen STEROTACTIC GUIDE BREAST BX 10/01/2012 u/s [...] not bulging. Nose: Congestion present. Mouth/Throat: Lips: [place]. Mouth: Mucous membranes are moist. Pharynx: Oropharynx [...] of care. This note was generated using [employer] software. It may contain errors in wording, punctuation, or spelling. Zaki Frost APRN.DAISY documented in this encounter [facility] 10-20-2022 Miscellaneous Notes Pt informed, verbalized understanding Soumya Waldron Ma Please inform patient that her urine cytology is negative for malignancy, only shows inflammation. Would recommend follow up with [facility]ro HOUSE PARENT if symptoms urinary start. To Matthews DO documented in this encounter [facility] 10-11-2022 Instructions To Matthews DO - 10/11/2022 5:23 PM EST Magnesium 250-500 mg a day Every other day 20-40 mg with Nexium for at least 2 weeks before dropping to 20 mg if tolerating dose change documented in this encounter [facility] 10-11-2022 History of Presen t illness Narrative [...] airway disease Severe pre-eclampsia, condition or complication [place] [facility] Stone, kidney x2 Vitamin D [...] D&C and ablation Dr. Silveira S HERNIA PATCH,VENTRALEX,[id number] abdomen STEROTACTIC GUIDE BREAST BX 10/01/2012 u/s [...] - UA DIP, URINE (POC) - CYTOLOGY NON-HOUSE PARENT 2. Painless hematuria - ICD9: 599.70, ICD10: R31.9 See above - CYTOLOGY NON-HOUSE PARENT 3. GERD without esophagitis - ICD9: 530.81, [...] See patient instructions. To Matthews DO [address] [place] [address] documented in this encounter [facility] 10-06-2022 Note HNO ID: [id number] Author: Feli Benz, DO Service: ? Author Type: Physician Type: Progress Notes Filed: 10/06/2022 11:02 AM Note Text: PSYC FOLLOW UP - PSYCHIATRIC PROGRESS NOTE This was a virtual follow up over zoom for 30 mins CC: anxiety follow up HPI: Panic attack when on the boat in the [facility] snorkling with waves. She had a [...] airway disease Severe pre-eclampsia, condition or complication [place] [facility] Stone, kidney x2 Vitamin D [...] DANDC and ablation Dr. Silveira S HERNIA PATCH,VENTRALEX,[id number] abdomen STEROTACTIC GUIDE BREAST BX 10/01/2012 u/s [...] Negative for headaches (more content not included)... [facility] 10-06-2022 History of Presen t illness Narrative Images from the original note were not included. PSYC FOLLOW UP - PSYCHIATRIC PROGRESS NOTE This was a virtual follow up over zoom for 30 mins CC: anxiety follow up HPI: Panic attack when on the boat in the [facility] snorkling with waves. She had a [...] airway disease Severe pre-eclampsia, condition or complication [place] [facility] Stone, kidney x2 Vitamin D [...] D&C and ablation Dr. Silveira S HERNIA PATCH,VENTRALEX,[id number] abdomen STEROTACTIC GUIDE BREAST BX 10/01/2012 u/s [...] 10:46 AM PAGER: documented in this encounter [facility] 09-22-2022 Miscellaneous Notes Reviewed. Melissa Heard APRN.DAISY Labs received and placed on Dr. Matthews's desk. Bree Oliver LPN documented in this encounter [facility] 09-16-2022 Miscellaneous Notes Pt. informed. I agree that it could likely be kidney stones due to UA and urine culture negative for infection. Agree with stopped qysmia -- at least for time being to see if improvement in symptoms. If wanting to discuss other options for weight management medications, needs to make appointment. Thank you, Estrella Singh APRN.DENTAL ASSISTING INSTRUCTOR Pt sent [employer] message in 6 days ago: I went [...] Faxed Gastro order to Dr Brock at [phone]. documented in this encounter [facility] 09-15-2022 Miscellaneous Notes Opening phone encounter. See message from pt and advise. Seen in [facility] yesterday. Clemencia Mazariegos Ma documented in this encounter [facility] 09-09-2022 Miscellaneous Notes Labs reviewed from [facility]. Creatinine was 1.01 BUN 24 creatinine clearance 80. Patient states symptoms are improving. Blood and urine is improving. We discussed supportive therapies. Discussed red flags for prompt reevaluation. Patient will follow up with PCP 7 to 10 days for repeat urinalysis in [facility] to ensure labs are improving. Patient verbalized understand agrees with plan of care. Zaki Frost APRN.DAISY documented in this encounter [facility] 09-09-2022 Miscellaneous Notes Patient was seen in [...] for express care. documented in this encounter [facility] 09-08-2022 History of Presen t illness Narrative This note was created using [employer]. Subjective Isak Gomez is a 41 year [...] airway disease Severe pre-eclampsia, condition or complication [place] [facility] Stone, kidney x2 Vitamin D [...] D&C and ablation Dr. Raoul Rushing HERNIA PATCH,VENTRALEX,[id number] abdomen STEROTACTIC GUIDE BREAST BX 10/01/2012 u/s [...] have this drawn in the morning at [facility]. We will follow-up on results. Discussed if [...] Romana Zavala PA-C documented in this encounter [facility] 08-10-2022 History of Presen t illness Narrative [...] airway disease Severe pre-eclampsia, condition or complication [place] [facility] Stone, kidney x2 Vitamin D [...] D&C and ablation Dr. Silveira S HERNIA PATCH,VENTRALEX,[id number] abdomen STEROTACTIC GUIDE BREAST BX 10/01/2012 u/s [...] plan. See patient instructions. To Matthews DO [address] [place] [address] documented in this encounter [facility] 07-21-2022 Miscellaneous Notes Addended by: FELI BENZ on: 07/21/2022 09:54 AM Modules accepted: Orders documented in this encounter [facility] 07-21-2022 History of Presen t illness Narrative [...] Allergic rhinitis. [facility]. Depression Fibrosclerosis of breast H. 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 Silveira S HERNIA PATCH,VENTRALEX,[id number] abdomen STEROTACTIC GUIDE BREAST BX 10/01/2012 u/s [...] the date of the service which included [id number] patient care and completing clinical documentation. ADD ON PSYCHOTHERAPY CODE : No SIGNATURE: Feli Benz DO PATIENT NAME: Isak Gomez DATE: July 21, 2022 TIME: 9:40 AM PAGER: documented in this encounter [facility] 05-25-2022 History of Presen t illness Narrative [...] her brothers . She is going to [facility] next week. She is working in [employer] and loves it working at [employer]. Risks and benefits of the medication, [...] Allergic rhinitis. Immunotherapy in past, Dr. Bond [facility] ENT. Depression Fibrosclerosis of breast H. 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 Raoul Rushing HERNIA PATCH,VENTRALEX,[id number] abdomen STEROTACTIC GUIDE BREAST BX 10/01/2012 u/s [...] the date of the service which included [id number] patient care and completing clinical documentation. ADD ON PSYCHOTHERAPY CODE : No SIGNATURE: Feli Benz DO PATIENT NAME: Isak Gomez DATE: May 25, 2022 TIME: 10:28 AM PAGER: documented in this encounter [facility] 05-20-2022 Miscellaneous Notes Patient was notified Jennifer [...] Provider: TO MATTHEWS DO Message copied from [employer] Can you call in a script for some scopolamine patches for our cruise we are taking soon, just in case we need them? Thank you, Isak rx pended Soumya Waldron Ma documented in this encounter [facility] 03-08-2022 Miscellaneous Notes The following approved medication [...] her Contrave Rx should have gone to [facility]. Has been on it for 5 weeks, but not as instructed b/c she didn't know an Rx was sent to [facility] (cancelled this Rx at [facility], per patient request- spoke with pharmacist). Has been taking the bupropion she already had. Needs contrave written to take 2 tabs twice daily, because that is where she is at with it. Needs a 30 day supply for #120 pills (gets a coupon from [facility] if it's written for 120 pills), and needs a 90 day supply sent to [facility]. Please phone patient with any questions. documented in this encounter [facility] 03-07-2022 Miscellaneous Notes Addended by: ESTRELLA SINGH [...] you. KAMERON Cheung documented in this encounter [facility] 01-28-2022 Miscellaneous Notes The following approved medication [...] TO MATTHEWS DO documented in this encounter [facility] 12-30-2020 Note Send Summary: Discharge Summary Providers: [...] at Discharge: .Home Vital Signs: T PRBPSpO2 [id number]/6595% Date/Time12/30 14: 14: 14: 14: 14:18 Range(36.7C - 37.3C ) (85 - 96 ) (16 - 18 ) (98 - 117 )/ (63 - 78 ) (95% - 96% ) Highest temp of 37.3 C was recorded at 12/30 9:31 Date: Weight/Scale Type:Height: 28-Dec-2020 13:0768.9 kg / rvegwwvf012.1 cm Physical Exam: Constitutional: Pleasant, calm and [...] to drink plen (more content not included)... [facility] 12-28-2020 Note History of Present I llness: [...] the note. I personally evaluated the patient [id number] Attending Provider Inpatient Certification StatementI certify this patients need for inpatient care based on the above documentation including; the order to admit as inpatient, the anticipated length of stay, diagnosis, problem list and plan of care, and discharge plan. Admission Order - View OnlyCurrent Admission Order. Admit to Inpatient Adult [facility] Admitting Diagnosis, K63.5 Colon polyp Level of [...] Last Updated: 28-Dec-2020 10:40 by Afshin Mckinney) [facility] documented as of this encounter (statuses as of 03/04/2022) [facility] History of Past illness Narrative* Problem Noted [...] of this encounter (statuses as of 03/07/2022) [facility] History of Past illness Narrative* Problem Noted [...] of this encounter (statuses as of 05/10/2022) [facility] History of Past illness Narrative* Problem Noted [...] of this encounter (statuses as of 05/20/2022) [facility] History of Past illness Narrative* Problem Noted [...] of this encounter (statuses as of 05/25/2022) [facility] History of Past illness Narrative* Problem Noted [...] of this encounter (statuses as of 07/11/2022) [facility] History of Past illness Narrative* Problem Noted [...] of this encounter (statuses as of 07/21/2022) [facility] History of Past illness Narrative* Problem Noted [...] of this encounter (statuses as of 08/11/2022) [facility]2014 History of Past illness Narrative* Problem Noted [...] of this encounter (statuses as of 08/25/2022) [facility] History of Past illness Narrative* Problem Noted [...] of this encounter (statuses as of 09/07/2022) [facility] History of Past illness Narrative* Problem Noted [...] of this encounter (statuses as of 09/08/2022) [facility] History of Past illness Narrative* Problem Noted [...] of this encounter (statuses as of 09/09/2022) [facility] History of Past illness Narrative* Problem Noted [...] of this encounter (statuses as of 09/14/2022) [facility] History of Past illness Narrative* Problem Noted [...] of this encounter (statuses as of 09/15/2022) [facility] History of Past illness Narrative* Problem Noted [...] of this encounter (statuses as of 09/16/2022) [facility] History of Past illness Narrative* Problem Noted [...] of this encounter (statuses as of 10/06/2022) [facility] History of Past illness Narrative* Problem Noted [...] of this encounter (statuses as of 10/12/2022) [facility] History of Past illness Narrative* Problem Noted [...] of this encounter (statuses as of 10/27/2022) [facility] History of Past illness Narrative* Problem Noted [...] of this encounter (statuses as of 10/29/2022) [facility] History of Past illness Narrative* Problem Noted [...] of this encounter (statuses as of 10/31/2022) [facility] History of Past illness Narrative* Problem Noted [...] of this encounter (statuses as of 11/24/2022) [facility] History of Past illness Narrative* Problem Noted [...] of this encounter (statuses as of 11/25/2022) [facility] History of Past illness Narrative* Problem Noted [...] of this encounter (statuses as of 12/06/2022) [facility] History of Past illness Narrative* Problem Noted [...] of this encounter (statuses as of 12/23/2022) [facility] History of Past illness Narrative* Problem Noted [...] of this encounter (statuses as of 01/06/2023) [facility] History of Past illness Narrative* Problem Noted [...] of this encounter (statuses as of 01/12/2023) [facility] History of Past illness Narrative* Problem Noted [...] of this encounter (statuses as of 01/20/2023) [facility] History of Past illness Narrative* Problem Noted [...] of this encounter (statuses as of 01/20/2023) [facility] History of Past illness Narrative* Problem Noted [...] of this encounter (statuses as of 02/01/2023) [facility] History of Past illness Narrative* Problem Noted [...] of this encounter (statuses as of 02/20/2023) [facility] History of Past illness Narrative* Problem Noted [...] of this encounter (statuses as of 03/09/2023) [facility] History of Past illness Narrative* Problem Noted [...] of this encounter (statuses as of 03/20/2023) [facility] History of Past illness Narrative* Problem Noted [...] of this encounter (statuses as of 03/21/2023) [facility] History of Past illness Narrative* Problem Noted [...] of this encounter (statuses as of 04/17/2023) [facility] History of Past illness Narrative* Problem Noted [...] of this encounter (statuses as of 04/25/2023) [facility] History of Past illness Narrative* Problem Noted [...] of this encounter (statuses as of 06/22/2023) [facility] History of Past illness Narrative* Problem Noted [...] of this encounter (statuses as of 07/21/2023) [facility] History of Past illness Narrative* Problem Noted [...] of this encounter (statuses as of 08/02/2023) [facility] History of Past illness Narrative* Problem Noted [...] of this encounter (statuses as of 08/03/2023) [facility] History of Past illness Narrative* Problem Noted [...] of this encounter (statuses as of 09/13/2023) [facility] History of Past illness Narrative* Problem Noted [...] of this encounter (statuses as of 10/12/2023) [facility] note* Diagnosis Obesity, Class I, BMI 30-34.9- Primary Obesity, unspecified [facility] Travel advice encounter- Primary Other specified counseling [facility] Diagnosis Recurrent major depressive disorder, in partial remission (HCC)- Primary JAG (generalized anxiety disorder) Generalized anxiety disorder [facility] Diagnosis Recurrent major depressive disorder, in partial remission (HCC) JAG (generalized anxiety disorder) Generalized anxiety disorder [facility] Diagnosis Depression, unspecified depression type- Primary Fatigue, unspecified type Encounter for screening mammogram for malignant neoplasm of breast Other screening mammogram Borderline abnormal thyroid function test Nonspecific abnormal results of thyroid function study Need for Tdap vaccination Need for prophylactic vaccination with combined [id number] (DTP) vaccine Obesity, Class I, BMI 30-34.9 Obesity, unspecified JAG (generalized anxiety disorder) Generalized anxiety disorder [facility] Diagnosis Gross hematuria- Primary [facility] Diagnosis Recurrent major depressive disorder, in partial remission (HCC)- Primary Panic disorder without agoraphobia PTSD (post-traumatic stress disorder) Posttraumatic stress disorder JAG (generalized anxiety disorder) Generalized anxiety disorder [facility] Diagnosis Gross hematuria- Primary Painless hematuria Hematuria, unspecified GERD without esophagitis Esophageal reflux JAG (generalized anxiety disorder) Generalized anxiety disorder [facility] Diagnosis Viral illness- Primary Unspecified viral infection, in conditions classified elsewhere and of unspecified site [facility] Diagnosis OME (otitis media with effusion), bilateral- Primary Viral URI with cough Acute upper respiratory infections of unspecified site Redness of eye, left Redness or discharge of eye [facility] Diagnosis Decreased hearing of both ears- Primary [facility] Diagnosis Recurrent major depressive disorder, in partial remission (HCC) JAG (generalized anxiety disorder) Generalized anxiety disorder [facility] Diagnosis Diarrhea, unspecified type- Primary GERD without esophagitis Esophageal reflux 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 Dyslipidemia Other and unspecified hyperlipidemia Painless hematuria Hematuria, unspecified JAG (generalized anxiety disorder) Generalized anxiety disorder [facility] Diagnosis Recurrent infections- Primary Unspecified infectious and parasitic diseases Need for vaccination Need for prophylactic vaccination and inoculation against unspecified single disease Chronic rhinitis Mild intermittent reactive airway disease without complication Toxic effect of venom, accidental or unintentional, initial encounter [facility]* Diagnosis GERD without esophagitis Esophageal reflux [facility]* Diagnosis PTSD (post-traumatic stress disorder)- Primary Posttraumatic stress disorder MDD (major depressive disorder), recurrent episode, moderate (HCC) Major depressive disorder, recurrent episode, moderate JAG (generalized anxiety disorder) Generalized anxiety disorder [facility] Diagnosis Recurrent major depressive disorder, in partial remission (HCC) JAG (generalized anxiety disorder) Generalized anxiety disorder [facility] Diagnosis Diarrhea, unspecified type- Primary Encounter for screening mammogram for malignant neoplasm of breast Other screening mammogram GERD without esophagitis Esophageal reflux JAG (generalized anxiety disorder) Generalized anxiety disorder Decreased hearing of both ears Fatigue, unspecified type Depression, unspecified depression type [facility] Diagnostic Procedure Only (Routine) - Pending Review Specialty Diagnoses / Procedures Referred By Contjaspal t Referred To Contact [facility] Diagnoses Encounter for screening mammogram for malignant neoplasm of breast Procedures JULIENNE SCREENING W ANDREAS SCREENING DIGITAL BREAST TOMOSYNTHESIS BI SCREENING MAMMOGRAPHY BI 2-VIEW BREAST INC To Webber DO [address] [place] [address] [facility] [address] [place] [address] Referral ID Status Reason Start Date Expiration Date Visits Requested Visits Authorized [id number] Pending Review Auto-Generat ed Referral 3 11/01/2024 1 1 [facility] Summary Purpose Family History No Family History Records Found Grandmother Name Dates Details Family history of malignant neoplasm of breast(V16.3, Z80.3) Status:Active Grandfather Name Dates Details Family history of malignant neoplasm of colon(V16.0, Z80.0) Status:Active Family history of malignant neoplasm of esophagus(V16.0, Z80.0) Status:Active Advance Directives No Advanced Directives Records FoundDocuments on File Type Date Recorded Patient Therapeutic Dietitian Expl anation Advance Directive(s) 03/24/2020 11:58 PM [...] With: Patient Hospital Course Note HNO ID: [id number] Author: Dennis Godfrey MD Service: Hospital Medicine Author Type: Physician Type: Discharge Summary Filed: 04/06/2020 12:55 PM Note Text: DISCHARGE SUMMARY PATIENT NAME: Iska Gomez Code Status: Full Code Highest Readmission [...] Class I, BMI 30-34.9 To Matthews, DO [address] [place] [address] Referral ID Status Reason Start Date Expiration Date V isits Requested Visits Authorized [id number] Pending Review 1 1 Specialty Diagnoses / Procedures Referred By Contac t Referred To Contact [facility] Diagnoses Encounter for screening mammogram for malignant neoplasm of breast Procedures JULIENNE SCREENING W ANDREAS SCREENING DIGITAL BREAST TOMOSYNTHESIS BI SCREENING MAMMOGRAPHY BI 2-VIEW BREAST INC CAD To Matthews, DO [address] [place] [address] [facility] [address] [place] [address] Referral ID Status Reason Start Date Expiration Date Visits Requested Visits Authorized [id number] Pending Review Auto-Generat ed Referral 08/10/2022 09/09/2023 1 1 Specialty Diagnoses / Procedures Referred By Ирина t Referred To Contact [facility] Diagnoses HLA B27 (HLA B27 positive) Procedures HLA-B27 PCR HLA I LOW RESOLUTION ONE ANTIGEN EQUIVALENT EACH Von To [place], DO [address] [place] [address] [facility] [address] [place] [address] Referral ID Status Reason Start Date Expiration Date Visits Requested Visits Authorized [id number] Authorized PCP Requested Referral Auto-Generate d Referral 01/11/2023 04/11/2023 1 1 Health Concerns Infection Onset Date Last Indicated Resolved Time COVID-19 Rule-Out 10/27/2022 10/27/2022 Infection Onset Date Last Indicated Resolved Time COVID-19 Rule-Out 10/27/2022 10/27/2022 10/27/2022 7:16 PM EST Additional Source Comments INFORMATION SOURCE (unrecogn ized section and content) DATE CREATED AUTHOR AUTHOR'S ORGANIZ ATION 03/20/2021 [email or web address] DATE CREATED AUTHOR AUTHOR'S ORGANIZ ATION 05/28/2021 [facility] DATE CREATED AUTHOR AUTHOR'S ORGANIZ ATION 06/19/2021 [facility] DATE CREATED AUTHOR AUTHOR'S ORGANIZ ATION 09/14/2023 [facility] DATE CREATED AUTHOR AUTHOR'S GUERO TEJEDA 12/21/2023 [facility] Source Comments (unrecognize d section and content) In the event this informatio n is protected by the Federal Confidentiality of Alcohol and Drug Abuse Patient Records regulations: The Federal rules restrict any use of the information to criminally investigate or prosecute any alcohol or drug abuse patient.[facility] event this information is protected by the Federal Confidentiality of Alcohol and Drug Abuse Patient Records regulations: The Federal rules restrict any use of the information to criminally investigate or prosecute any alcohol or drug abuse patient.[facility] the event this information is protected by the Federal Confidentiality of Alcohol and Drug Abuse Patient Records regulations: The Federal rules restrict any use of the information to criminally investigate or prosecute any alcohol or drug abuse patient.[facility] the event this information is protected by the Federal Confidentiality of Alcohol and Drug Abuse Patient Records regulations: The Federal rules restrict any use of the information to criminally investigate or prosecute any alcohol or drug abuse patient.[facility] the event this information is protected by the Federal Confidentiality of Alcohol and Drug Abuse Patient Records regulations: The Federal rules restrict any use of the information to criminally investigate or prosecute any alcohol or drug abuse patient.[facility] the event this information is protected by the Federal Confidentiality of Alcohol and Drug Abuse Patient Records regulations: The Federal rules restrict any use of the information to criminally investigate or prosecute any alcohol or drug abuse patient.[facility] the event this information is protected by the Federal Confidentiality of Alcohol and Drug Abuse Patient Records regulations: The Federal rules restrict any use of the information to criminally investigate or prosecute any alcohol or drug abuse patient.[facility] the event this information is protected by the Federal Confidentiality of Alcohol and Drug Abuse Patient Records regulations: The Federal rules restrict any use of the information to criminally investigate or prosecute any alcohol or drug abuse patient.[facility] the event this information is protected by the Federal Confidentiality of Alcohol and Drug Abuse Patient Records regulations: The Federal rules restrict any use of the information to criminally investigate or prosecute any alcohol or drug abuse patient.[facility] the event this information is protected by the Federal Confidentiality of Alcohol and Drug Abuse Patient Records regulations: The Federal rules restrict any use of the information to criminally investigate or prosecute any alcohol or drug abuse patient.[facility] the event this information is protected by the Federal Confidentiality of Alcohol and Drug Abuse Patient Records regulations: The Federal rules restrict any use of the information to criminally investigate or prosecute any alcohol or drug abuse patient.[facility] the event this information is protected by the Federal Confidentiality of Alcohol and Drug Abuse Patient Records regulations: The Federal rules restrict any use of the information to criminally investigate or prosecute any alcohol or drug abuse patient.[facility] the event this information is protected by the Federal Confidentiality of Alcohol and Drug Abuse Patient Records regulations: The Federal rules restrict any use of the information to criminally investigate or prosecute any alcohol or drug abuse patient.[facility] the event this information is protected by the Federal Confidentiality of Alcohol and Drug Abuse Patient Records regulations: The Federal rules restrict any use of the information to criminally investigate or prosecute any alcohol or drug abuse patient.[facility] the event this information is protected by the Federal Confidentiality of Alcohol and Drug Abuse Patient Records regulations: The Federal rules restrict any use of the information to criminally investigate or prosecute any alcohol or drug abuse patient.[facility] the event this information is protected by the Federal Confidentiality of Alcohol and Drug Abuse Patient Records regulations: The Federal rules restrict any use of the information to criminally investigate or prosecute any alcohol or drug abuse patient.[facility] the event this information is protected by the Federal Confidentiality of Alcohol and Drug Abuse Patient Records regulations: The Federal rules restrict any use of the information to criminally investigate or prosecute any alcohol or drug abuse patient.[facility] the event this information is protected by the Federal Confidentiality of Alcohol and Drug Abuse Patient Records regulations: The Federal rules restrict any use of the information to criminally investigate or prosecute any alcohol or drug abuse patient.[facility] the event this information is protected by the Federal Confidentiality of Alcohol and Drug Abuse Patient Records regulations: The Federal rules restrict any use of the information to criminally investigate or prosecute any alcohol or drug abuse patient.[facility] the event this information is protected by the Federal Confidentiality of Alcohol and Drug Abuse Patient Records regulations: The Federal rules restrict any use of the information to criminally investigate or prosecute any alcohol or drug abuse patient.[facility] the event this information is protected by the Federal Confidentiality of Alcohol and Drug Abuse Patient Records regulations: The Federal rules restrict any use of the information to criminally investigate or prosecute any alcohol or drug abuse patient.[facility] the event this information is protected by the Federal Confidentiality of Alcohol and Drug Abuse Patient Records regulations: The Federal rules restrict any use of the information to criminally investigate or prosecute any alcohol or drug abuse patient.[facility] the event this information is protected by the Federal Confidentiality of Alcohol and Drug Abuse Patient Records regulations: The Federal rules restrict any use of the information to criminally investigate or prosecute any alcohol or drug abuse patient.[facility] the event this information is protected by the Federal Confidentiality of Alcohol and Drug Abuse Patient Records regulations: The Federal rules restrict any use of the information to criminally investigate or prosecute any alcohol or drug abuse patient.[facility] the event this information is protected by the Federal Confidentiality of Alcohol and Drug Abuse Patient Records regulations: The Federal rules restrict any use of the information to criminally investigate or prosecute any alcohol or drug abuse patient.[facility] the event this information is protected by the Federal Confidentiality of Alcohol and Drug Abuse Patient Records regulations: The Federal rules restrict any use of the information to criminally investigate or prosecute any alcohol or drug abuse patient.[facility] the event this information is protected by the Federal Confidentiality of Alcohol and Drug Abuse Patient Records regulations: The Federal rules restrict any use of the information to criminally investigate or prosecute any alcohol or drug abuse patient.[facility] the event this information is protected by the Federal Confidentiality of Alcohol and Drug Abuse Patient Records regulations: The Federal rules restrict any use of the information to criminally investigate or prosecute any alcohol or drug abuse patient.[facility] the event this information is protected by the Federal Confidentiality of Alcohol and Drug Abuse Patient Records regulations: The Federal rules restrict any use of the information to criminally investigate or prosecute any alcohol or drug abuse patient.[facility] the event this information is protected by the Federal Confidentiality of Alcohol and Drug Abuse Patient Records regulations: The Federal rules restrict any use of the information to criminally investigate or prosecute any alcohol or drug abuse patient.[facility] the event this information is protected by the Federal Confidentiality of Alcohol and Drug Abuse Patient Records regulations: The Federal rules restrict any use of the information to criminally investigate or prosecute any alcohol or drug abuse patient.[facility] the event this information is protected by the Federal Confidentiality of Alcohol and Drug Abuse Patient Records regulations: The Federal rules restrict any use of the information to criminally investigate or prosecute any alcohol or drug abuse patient.[facility] the event this information is protected by the Federal Confidentiality of Alcohol and Drug Abuse Patient Records regulations: The Federal rules restrict any use of the information to criminally investigate or prosecute any alcohol or drug abuse patient.[facility] the event this information is protected by the Federal Confidentiality of Alcohol and Drug Abuse Patient Records regulations: The Federal rules restrict any use of the information to criminally investigate or prosecute any alcohol or drug abuse patient.[facility] the event this information is protected by the Federal Confidentiality of Alcohol and Drug Abuse Patient Records regulations: The Federal rules restrict any use of the information to criminally investigate or prosecute any alcohol or drug abuse patient.[facility] the event this information is protected by the Federal Confidentiality of Alcohol and Drug Abuse Patient Records regulations: The Federal rules restrict any use of the information to criminally investigate or prosecute any alcohol or drug abuse patient.[facility] the event this information is protected by the Federal Confidentiality of Alcohol and Drug Abuse Patient Records regulations: The Federal rules restrict any use of the information to criminally investigate or prosecute any alcohol or drug abuse patient.[facility] Township[facility] the event this information is protected by the Federal Confidentiality of Alcohol and Drug Abuse Patient Records regulations: The Federal rules restrict any use of the information to criminally investigate or prosecute any alcohol or drug abuse patient.[facility] Township[facility] the event this information is protected by the Federal Confidentiality of Alcohol and Drug Abuse Patient Records regulations: The Federal rules restrict any use of the information to criminally investigate or prosecute any alcohol or drug abuse patient.[facility] Township[facility] the event this information is protected by the Federal Confidentiality of Alcohol and Drug Abuse Patient Records regulations: The Federal rules restrict any use of the information to criminally investigate or prosecute any alcohol or drug abuse patient.[facility] the event this information is protected by the Federal Confidentiality of Alcohol and Drug Abuse Patient Records regulations: The Federal rules restrict any use of the information to criminally investigate or prosecute any alcohol or drug abuse patient.[facility] Reason for Visit (unrecogniz ed section and content) Reason Onset Date Comments Refill Request 03/05/2022 Reason Onset Date Comments Refill Request 03/08/2022 Reason Comments Medication Request copied from [employer] Reason Comments Anxiety Depression Follow Up Specialty Diagnoses / Procedures Referred By Ирина kelly Referred To Contact Psychiatry / ADULT PSYCHIATRY Diagnoses med check Procedures VIDEO PSYC/PSYL MD Angel Wheeler Lara W, DO [address] [place] [address] Referral ID Status Reason Start Date Expiration Date V isits Requested Visits Authorized [id number] Authorized 11/20/2021 11/19/2022 99 99 Reason Comments Anxiety Follow Up Specialty Diagnoses / Procedures Referred By Contac t Referred To Contact Psychiatry / ADULT PSYCHIATRY Diagnoses virtual follow up Procedures VIDEO PSYC/PSYL EST Feli Benz, DO [address] [place] [address] Feli Benz, DO [address] [place] [address] Referral ID Status Reason Start Date Expiration Date V isits Requested Visits Authorized [id number] Pending Review 07/14/2022 10/12/2022 99 99 Reason [...] VIDEO PSYC/PSYL EST Self Feli Benz, DO [address] [place] [address] Reason Comments Follow Up Reason Comments Cough Pt reported chest co ngestion, bilateral ear decreased hearing, x5 days. Reason Comments Cough eyes red x 6 days, s een yesterday at ent Reason Comments Recheck Follow up bilateral ears; L greater than R Referral ID Status Reason Start Date Expiration Date V isits Requested Visits Authorized [id number] Pending Review 11/24/2022 11/19/2023 99 99 Reason [...] Procedures VIDEO PSYC/PSYL EST Feli Benz, DO [address] [place] [id number] Angel Feli W, DO [address] [place] [address] Reason Comments Follow Up R Axillary Cyst Care Teams (unrecognized sec tion and content) Engineer Of System Development Relationship Specialty Start Date End Date To Matthews, DO [address] [place] [address] PCP - General Family Practice 01/14/13 Engineer Of System Development Relationship Specialty Start Date End Date To Matthews, DO [address] [place] [address] PCP - General Family Practice 01/14/13 Engineer Of System Development Relationship Specialty Start Date End Date To Matthews, DO [address] [place] [address] PCP - General Family Practice 01/14/13 Engineer Of System Development Relationship Specialty Start Date End Date To Matthews, DO [address] [place] [address] PCP - General Family Practice 01/14/13 Engineer Of System Development Relationship Specialty Start Date End Date To Matthews, DO [address] [place] [address] PCP - General Family Practice 01/14/13 Engineer Of System Development Relationship Specialty Start Date End Date To Matthews, DO [address] [place] [address] PCP - General Family Practice 01/14/13 Engineer Of System Development Relationship Specialty Start Date End Date To Matthews, DO [address] [place] [address] PCP - General Family Medicine 01/14/13 Engineer Of System Development Relationship Specialty Start Date End Date To Matthews, DO [address] [place] [address] PCP - General Family Medicine 01/14/13 Engineer Of System Development Relationship Specialty Start Date End Date To Matthews, DO [address] [place] [address] PCP - General Family Medicine 01/14/13 Engineer Of System Development Relationship Specialty Start Date End Date To Matthews, DO [address] [place] [address] PCP - General Family Medicine 01/14/13 Engineer Of System Development Relationship Specialty Start Date End Date To Matthews, DO [address] [place] [address] PCP - General Family Medicine 01/14/13 Engineer Of System Development Relationship Specialty Start Date End Date To Matthews, DO [address] [place] [address] PCP - General Family Medicine 01/14/13 Engineer Of System Development Relationship Specialty Start Date End Date To Matthews, DO [address] [place] [address] PCP - General Family Medicine 01/14/13 Engineer Of System Development Relationship Specialty Start Date End Date To Matthews, DO [address] [place] [address] PCP - General Family Medicine 01/14/13 Engineer Of System Development Relationship Specialty Start Date End Date To Matthews, DO [address] [place] [address] PCP - General Family Medicine 01/14/13 Engineer Of System Development Relationship Specialty Start Date End Date To Matthews, DO [address] [place] [address] PCP - General Family Medicine 01/14/13 Engineer Of System Development Relationship Specialty Start Date End Date To Matthews, DO [address] [place] [address] PCP - General Family Medicine 01/14/13 Engineer Of System Development Relationship Specialty Start Date End Date To Matthews, DO [address] [place] [address] PCP - General Family Medicine 01/14/13 Engineer Of System Development Relationship Specialty Start Date End Date To Matthews, DO [address] [facility] [place] [address] PCP - General Family Medicine 01/14/13 Engineer Of System Development Relationship Specialty Start Date End Date To Matthews, DO [address] [facility] [place] [place] [address] PCP - General Family Medicine 01/14/13 Engineer Of System Development Relationship Specialty Start Date End Date To Matthews DO [address] [facility] [place] [address] PCP - General Family Medicine 01/14/13 Engineer Of System Development Relationship Specialty Start Date End Date To Matthews DO [address] [facility] [place] [address] PCP - General Family Medicine 01/14/13 Engineer Of System Development Relationship Specialty Start Date End Date To Matthews DO [address] [facility] [place] [address] PCP - General Family Medicine 01/14/13 Engineer Of System Development Relationship Specialty Start Date End Date To Matthews DO [address] [facility] [place] [address] PCP - General Family Medicine 01/14/13 Engineer Of System Development Relationship Specialty Start Date End Date To Matthews DO [address] [facility] [place] [address] PCP - General Family Medicine 01/14/13 Engineer Of System Development Relationship Specialty Start Date End Date To Matthews, DO [address] [place] [address] PCP - General Family Medicine 01/14/13 Engineer Of System Development Relationship Specialty Start Date End Date To Matthews, DO [address] [place], [place] [id number] PCP - General Family Medicine 01/14/13 Engineer Of System Development Relationship Specialty Start Date End Date To Matthews, DO [address] [place], [place] [address] PCP - General Family [facility] 01/14/13 Engineer Of System Development Relationship Specialty Start Date End Date To Matthews, DO [address] [place], [place] [address] PCP - General Family [facility] 01/14/13 FOR RECORDS PERTAINING TO PATIENTS WHO [...] BE BASED ON THE PRIMARY CLINICAL RECORDS. [facility] [email or web address] provides no warranty or guarantee of the accuracy or completeness of information in this document.
[2024-01-19 09:33] LABS: Absolute Neutrophil Count 2.7 X10^3/uL (2.0-7.7); Basophil# 0.03 X10^3/uL; Basophil% 0.6 % (0-1); Eosinophil# 0.15 X10^3/uL; Eosinophils% 3.1 % (0-5); Hematocrit 40.2 % (37-47); Hemoglobin 13.1 g/dL (12.0-15.0); Lymphocyte % 33.4 % (19-41); Mean Corp Hgb Conc 32.6 g/dL (32-36); Mean Corpuscular Hgb 32.1 pg (27.0-32.0); Mean Corpuscular Volume 98.5 fL (81-99); Mean Platelet Vol. 10.6 fl (6.2-12.0); Monocyte# 0.29 X10^3/uL; Monocyte% 6.1 % (0-10); NRBC Flagged by Analyzer 0 % (0-5); Neutrophil # 2.71 X10^3/uL (2.7-7.7); Neutrophil % 56.6 % (47-70); Platelet Count 257 K/mm3 (150-450); RBC Distribution Width CV 13.9 % (11.6-14.6); RBC Distribution Width SD 50.4 fl (35.1-43.9); Red Blood Count 4.08 M/mm3 (4.2-5.4); White Blood Count 4.8 K/mm3 (4.4-11.0)
== END | disposition home or self-care (01) ==
LOC: LAB 08:39
PROVIDERS: PCP Student in an Organized Health Care Education/Training Program; Referring Provider Internal Medicine Gastroenterology; Visit Provider Internal Medicine Gastroenterology
DX: K50.90 Crohn's disease, unspecified, without complications (principal)
CPT/HCPCS: 36415; 85025

== ENCOUNTER → 2024-04-25 | Outpatient (CLI) | payer OTHER, SELFPAY ==
--- NOTE | 2024-04-25 14:10 | US_ITS ---
STUDY: ULTRASOUND BREAST - RIGHT REASON FOR EXAM: Female, 43 years old. Palpable lump at the 3:00 position of the right breast. TECHNIQUE: Axial and longitudinal images of the RIGHT breast were performed with a high resolution ultrasound transducer. # OF IMAGES: 25 COMPARISON: Comparison is made with prior mammogram done earlier today. FINDINGS: RIGHT Breast: There is a 5 mm x 4 mm x 4 mm cyst at the 3:00 position of the breast at 11 cm from the nipple. US/Breast Limited Unilateral IMPRESSION: 5 mm x 4 mm x 4 mm cyst at the 3:00 position of the breast at 11 cm from the nipple. ASSESSMENT CATEGORY: BIRADS Category 2: Benign. A letter regarding these results will be sent to the patient by the facility within 30 days. Electronically Signed: Nabil Talley MD at 8:46 EDT ,
--- NOTE | 2024-04-25 14:10 | BI_ITS ---
MAMMOGRAPHY - BILATERAL DIAGNOSTIC REASON FOR EXAM: Female, 43 years old. Pea-sized breast lumps bilaterally. PERTINENT HISTORY: Grandmother with breast cancer. TECHNIQUE: Digital bilateral breast jackie (3D mammographic acquisition) in the CC and MLO projections. 2-D mediolateral oblique (MLO) and craniocaudad (CC) views of both breasts were obtained. CAD: Full Field Digital Mammography with Computer Added Detection was performed. COMPARISON: Comparison is made with prior study dated November 06, 2023 and November 03, 2022. FINDINGS: Breast Composition: There are scattered areas of fibroglandular density. There are no dominant masses or suspicious calcifications. A tissue clip marker is once again seen in the retroareolar region of the left breast. Stable benign-appearing bilateral axillary lymph nodes. No other significant abnormalities are identified. There has been no significant change since the prior study. BI/DIAG MAMM W/CAD, BILAT IMPRESSION: Stable bilateral diagnostic mammogram. With the patient''s history of palpable lumps in both breasts, correlation with ultrasound recommended. ASSESSMENT CATEGORY: BIRADS Category 0: Incomplete. Need additional imaging evaluation. A letter regarding these results will be sent to the patient by the facility within 30 days. Approximately 10% of breast cancers are not detected by mammography. A normal mammogram should not delay biopsy of a clinically suspicious abnormality. Electronically Signed: Nabil Talley MD at 15:22 EDT ,
--- NOTE | 2024-04-25 14:10 | US_ITS ---
STUDY: ULTRASOUND BREAST - LEFT REASON FOR EXAM: Female, 43 years old. Palpable lump in the inferior medial aspect of the left breast. TECHNIQUE: Axial and longitudinal images of the LEFT breast were performed with a high resolution ultrasound transducer. # OF IMAGES: 38 COMPARISON: Comparison is made with prior mammogram done earlier in the day. FINDINGS: LEFT Breast: At the 7:00 position of the breast at 8 cm from the nipple, there are 2, adjacent cysts measuring 3 mm x 3 mm x 2 mm. US/Breast Limited Unilateral IMPRESSION: 2 small adjacent cysts are seen at the 7:00 position of the breast at 8 cm from the nipple. ASSESSMENT CATEGORY: BIRADS Category 2: Benign. A letter regarding these results will be sent to the patient by the facility within 30 days. Electronically Signed: Nabil Talley MD at 8:45 EDT ,
== END | disposition home or self-care (01) ==
LOC: OPBI 14:10
PROVIDERS: PCP Student in an Organized Health Care Education/Training Program; Referring Provider Nurse Practitioner Family; Visit Provider Nurse Practitioner Family
DX: N60.02 Solitary cyst of left breast (principal)
CPT/HCPCS: 76642; 77062; 77066; G0279

== ENCOUNTER → 2024-05-06 | Outpatient (CLI) | payer OTHER, SELFPAY ==
--- NOTE | 2024-05-06 11:29 | RAD_ITS ---
INDICATION: ACUTE BILATERAL LOW BACK PAIN W SCIATICA EXAMINATION/TECHNIQUE: X-RAY - XR Spine Lumbar 2 or 3 Views COMPARISON: None. FINDINGS: VERTEBRAE: Preserved vertebral body height. No fracture. No spondylolisthesis. Preservation of the normal lumbar lordosis. Mild dextroscoliotic curvature is noted. Minimal osteophyte formation is evident. Mild facet hypertrophy present from L3 to S1. There are findings suspicious of pars defects at L5 and a moderate grade 1 anterolisthesis is present. DISCS: Marginal osteophyte formation at multiple levels most notable at L1-2. Disc space narrowing at L5-S1. INCLUDED ABDOMEN: Included bowel gas pattern is non-obstructive. RAD/Lumbar Spine 2 or 3 Views IMPRESSION: 1. Pars defects at L5, grade 1 anterolisthesis of L5 on S1. 2. Facet arthropathy from L3 to S1. 3. Minimal osteophyte formation at the disc spaces most notable at L1-2. 4. No acute fractures noted. Electronically Signed: Trey Miller MD at 0:51 EDT ,
== END | disposition home or self-care (01) ==
LOC: RAD 11:27
PROVIDERS: PCP Student in an Organized Health Care Education/Training Program; Referring Provider Registered Nurse; Visit Provider Registered Nurse
DX: M54.40 Lumbago with sciatica, unspecified side (principal)
CPT/HCPCS: 72100

== ENCOUNTER → 2024-05-15 | Outpatient (CLI) | payer OTHER, SELFPAY ==
[2024-05-15 10:18] LABS: Erythrocyte Sedimentation Rate < 1 mm/hr (0-30)
[2024-05-15 10:20] LABS: Absolute Lymphocyte Count 1.33 X10^3/uL (0.83-4.51); Absolute Neutrophil Count 3.2 X10^3/uL (2.0-7.7); Basophil# 0.03 X10^3/uL; Basophil% 0.6 % (0-1); Eosinophil# 0.15 X10^3/uL; Hematocrit 38.9 % (37-47); Hemoglobin 12.5 g/dL (12.0-15.0); Lymphocyte # 1.33 X10^3/ul (0.83-4.51); Lymphocyte % 26.4 % (19-41); Mean Corp Hgb Conc 32.1 g/dL (32-36); Mean Corpuscular Hgb 32.6 pg (27.0-32.0); Mean Corpuscular Volume 101.6 fL (81-99); Monocyte# 0.32 X10^3/uL; Monocyte% 6.3 % (0-10); NRBC Flagged by Analyzer 0 % (0-5); Neutrophil # 3.15 X10^3/uL (2.7-7.7); Neutrophil % 62.5 % (47-70); Platelet Count 261 K/mm3 (150-450); RBC Distribution Width CV 13.8 % (11.6-14.6); RBC Distribution Width SD 51.2 fl (35.1-43.9); Red Blood Count 3.83 M/mm3 (4.2-5.4)
[2024-05-15 10:47] LABS: Vitamin B12 580 pg/mL (211-911); Vitamin D,25 Hydroxy 39.8 ng/mL
[2024-05-15 11:00] LABS: ALB/GLOB Ratio 1.2 RATIO (0.9-2.4); AST(SGOT) 9 U/L (15-37); Alanine Aminotransfer ALT/SGPT 16 U/L (13-56); Alkaline Phosphatase 65 U/L (45-117); Anion Gap 6 (5-15); BUN 17 mg/dL (7-18); CPK Total, Creatine Kinase 38 U/L (26-192); CRP < 2.90 mg/L (0.0-3.0); Calcium,Total 9.2 mg/dL (8.5-10.1); Chloride 107 mmol/L (98-107); Cholesterol 211 mg/dL (200); Creatinine, Serum 0.89 mg/dL (0.55-1.02); EST Glomerular Filtration Rate 72 mL/min (>60); Est Glom Filt Rate - Afr Amer 88 mL/min (>60); Globulin 3.3 g/dL (2.2-4.2); Glucose 94 mg/dL (74-106); High Density Lipoprotein 55 mg/dL; LDH 139 U/L (84-246); Potassium 4.1 mmol/L (3.5-5.1); Protein, Total 7.3 g/dL (6.4-8.2); Sodium Level 140 mmol/L (136-145); T4 Free Direct 0.98 ng/dL (0.76-1.46); Thyroid Stim Hormone (TSH) 1.22 uIU/mL (0.358-3.74); Triglycerides 141 mg/dL; Very Low Density Lipoprotein 28 mg/dL (5-40)
[2024-05-15 11:02] LABS: Hemoglobin A1c 4.9 % (3.8-5.6)
== END | disposition home or self-care (01) ==
LOC: LAB 09:36
PROVIDERS: PCP Student in an Organized Health Care Education/Training Program; Referring Provider Internal Medicine Gastroenterology; Visit Provider Internal Medicine Gastroenterology
DX: Z00.00 Encounter for general adult medical examination without abnormal findings (principal)
CPT/HCPCS: 36415; 80053; 80061; 82306; 82550; 82607; 83036; 83615; 84439; 84443; 85025; 85652; 86140

== ENCOUNTER → 2024-05-16 | Outpatient (CLI) | payer OTHER, SELFPAY ==
--- NOTE | 2024-05-16 11:00 | MRI_ITS ---
HISTORY: LBP, SCIATICA, RADICULOPATHY. TECHNIQUE: Multiplanar and multisequence MR images of the lumbar spine were obtained without intravenous contrast. 141 images. COMPARISON: 05/06/2024. FINDINGS: VERTEBRAE: Vertebral body heights maintained. Mild degenerative endplate changes of L4-5 and L5-S1. Bilateral L5 spondylolysis and incomplete fusion of the posterior arch. No other significant bone marrow signal abnormality. ALIGNMENT: 4 mm anterolisthesis of L5-S1. CONUS: Normal morphology and position of the conus medullaris at L1. INTERVERTEBRAL DISCS: T12-L1: No significant signal abnormality, posterior disc protrusion, central canal stenosis, or foraminal narrowing based on the sagittal images. L1-2, L2-3, L3-4: No significant signal abnormality, posterior disc protrusion, central canal stenosis, or foraminal narrowing. L4-5: Mild posterior disc protrusion eccentric to the right resulting in moderate right and mild left foraminal narrowing. No significant central canal stenosis. L5-S1: Mild disc bulge and facet arthropathy resulting in moderate bilateral foraminal narrowing with bilateral L5 nerve root impingement. No significant central canal stenosis. SOFT TISSUES: Incompletely imaged 1.9 cm round cystic lesion in the right pelvis with a fluid fluid level, suggesting a hemorrhagic ovarian cyst. No paraspinal fluid collection. MRI/Spine Lumbar (Routine) IMPRESSION: L5 spondylolysis with grade 1 spondylolisthesis. Mild L5-S1 disc bulge with facet arthropathy resulting in moderate bilateral foraminal narrowing with bilateral nerve root impingement. Mild L4-5 disc bulge resulting in moderate right and mild left foraminal narrowing. No significant lumbar spinal canal stenosis. Electronically Signed: Alison Chow MD at 11:09 EDT ,
== END | disposition home or self-care (01) ==
PROVIDERS: PCP Student in an Organized Health Care Education/Training Program; Referring Provider Student in an Organized Health Care Education/Training Program; Visit Provider Student in an Organized Health Care Education/Training Program
DX: M54.42 Lumbago with sciatica, left side (principal); M54.41 Lumbago with sciatica, right side; M54.16 Radiculopathy, lumbar region; M43.06 Spondylolysis, lumbar region; R20.2 Paresthesia of skin
CPT/HCPCS: 72148

== ENCOUNTER → 2024-05-20 | Outpatient (CLI) | payer OTHER, SELFPAY ==
[2024-05-28 16:10] LABS: Pancreatic Elastase, Fecal > 800 (>200)
== END | disposition home or self-care (01) ==
LOC: LABSPEC 12:51
PROVIDERS: PCP Student in an Organized Health Care Education/Training Program; Referring Provider Internal Medicine Gastroenterology; Visit Provider Internal Medicine Gastroenterology
DX: K50.90 Crohn's disease, unspecified, without complications (principal)
CPT/HCPCS: 82653; 82705; 83630; 83993

== ENCOUNTER → 2024-06-25 | Outpatient (CLI) | payer OTHER, SELFPAY ==
--- NOTE | 2024-06-25 17:54 | RAD_ITS ---
INDICATION: LEFT HIP PAIN EXAMINATION/TECHNIQUE: X-RAY - XR Hip Unilateral with Pelvis when performed; 2-3 Views COMPARISON: No relevant prior comparison study available FINDINGS: PELVIC BONES: No displaced fracture, destructive or sclerotic lesions. Note that overlapping bowel shadows may however obscure fine detail. Sacroiliac joints are unremarkable. No widening of the pubic symphysis. HIPS: Hip joint spaces well-maintained. No acute fracture. SOFT TISSUES: No soft tissue swelling or gas. RAD/HIP, UNI W/ Pelvis 2-3 Views IMPRESSION: Unremarkable study. Electronically Signed: Alfredo Rose MD at 20:17 EDT ,
== END | disposition home or self-care (01) ==
LOC: RAD 17:27
PROVIDERS: PCP Student in an Organized Health Care Education/Training Program; Referring Provider Clinical Nurse Specialist Adult Health; Visit Provider Clinical Nurse Specialist Adult Health
DX: M25.552 Pain in left hip (principal)
CPT/HCPCS: 73502

== ENCOUNTER 2024-07-04 13:30 | Outpatient (RCR) | payer OTHER, SELFPAY ==
--- NOTE | 2024-05-10 15:59 | HP.PTEVAL ---
Patient's Visit Information Visit Information Visit Information: ISAK QUEEN is a 43 year old F referred to Physical Therapy by VITO Hurtado with a diagnosis of ACUTE HEIDI LBP WITH SCIATICA. Date of Evaluation: 05/06/24 Physical Therapist: Saundra Cesar PT, Cert MDT Visit Plan Frequency: 2-3x /Week Duration: 4-6 Weeks Plan: *CORE *F/U with response to previous session *F/U with HEP AQUATIC THERAPY FOR PAIN RELEIF, POSTURE CORRECTION/STRENGTHENING, INSTRUCTION IN APPROPRIATE BODY MECHANICS AND ACTIVITY MODIFICATIONS. DLS STARTING WITH A NEUTRAL SPINE PROGRESSING ROM TOLERATED. HEIDI LE ROM, STRETCHING AND STRENGTHENING. HEP INSTRUCTION. 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 HAS BEEN TAKEN OFF WORK X 1 WEEK. LAST WORKED YESTERDAY X 1 PATIENT ON-CALL. Disability: NO Present symptoms: HEIDI LOW BACK PAIN. PAIN IN TAILBONE AREA. HEIDI BUTTOCK PAIN. HEIDI THIGH PAIN. ONE EPISODE OF NUMBNESS IN ALL TOES ON L FOOT ABOUT 2 HRS AGO DURING MASSAGE. I FEEL LIKE THERE IS A GUTIERREZ IN MY BACK AND I CAN'T MOVE. Present since: ABOUT 2 MONTHS AGO. GETTING WORSE SINCE LAST MONDAY. Pain Scale: WORST 7/10, LEAST 4/10 Currently: 4/10 Is it getting better, worse or staying the same: GETTING WORSE. THIS MORNING WAS THE WORST. WOKE UP FEELING WORSE THAN WENT TO BED. HAS BEEN UP SINCE 5AM. Commenced as a result of: NO APPARENT REASON. Symptoms at onset: STABBINIG PAIN IN CENTER OF LOW BACK Worse: WALKING, BENDING, LYING DOWN ON SIDE, STANDING IN ONE PLACE, LYING ON STOMACH, TRYING TO MOVE A PATIENT, TRYING TO PUT PANTS ON, TRYING TO PUT SOCKS ON. (I AM NORMALLY PRETTY FLEXIBLE. I DO YOGA), SITTING. Better: LYING ON BACK WITH LEGS ELEVATED. ICE. IBUPROFEN, OTC PAIN PATCH, CHIROPRACTIC IS GIVING TEMPORARY BENEFIT. Disturbed sleep: YES Previous history/Previous treatment: EPISODIC CHRONIC LBP SINCE TEENAGER. FLARE UP'S TREATED WITH MASSAGE AND CHIROPRACTIC. CHIROPRACTIC ONCE A MONTH (BELLE FOURCHE). FLARES UP WITH PROLONGED STANDING, WEARING FLIP FLOPS AND OTHER CERTAIN SHOES. 2020 HAD MAJOR ABDOMINAL SURGERY AND PELVIC PAIN - TRIED CAUDAL IN PAIN MGMT WHICH DID NOT HELP - PT EVENTUALLY HELPED. NO LUMBAR ERICKSON'S. NO BACK SURGERY. NO LUMBAR PHYSICAL THERAPY. Treatment this episode: SAW ISAURO JOHNSON CNP AT [facility] FOR FIRST VISIT TODAY. HAD MASSAGE TODAY, CHIROPRACTIC X 3 THIS FLARE UP, STARTED PREDNISONE TODAY, PRESCRIBED FLEXERIL TODAY. BACK BRACE. Coughing/sneezing/straining: NEGATIVE FOR INCREASED PAIN. Gait: I CAN'T MAKE BIG STRIDES AT ALL AND I CAN'T WALK FAR OR FAST USUAL. Bowel or Bladder Dysfunction: NO Accidents: NO Unexplained weight loss: NO Imaging: RECENT LUMBAR X-RAYS. AWAITING RESULTS. PMH/Recent major surgery: ANXIETY AND DEPRESSION. CROHN'S DZ. REFLUX. H/O ABDOMINAL SX'S. VENTRAL HERNIA REPAIR. HYSTERECTOMY. 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 IN FEBRUARY AND ALL OF MARCH SHE STARTED GOING BACK TO [employer] AND WAS DOING OBLIQUE TURNS, LEG PRESS AND TREADMILL AT A HIGH INCLINE (12) FOR AT LEAST 45 MIN. Pain LBP: Pain Intensity (Out of 10): 6 Pain Intensity Range: 4 and 7 Comment: B hip area Objective Objective: Sitting/Standing Posture: ANTERIOR PELVIC TILT. NO RELEVANT LATERAL SHIFT Active Correction of posture: WORSE Other Observations: PATIENT IS ABLE TO TRANSFER INDEP'LY FROM SIT TO STAND WITHOUT UE ASSIST BUT IT IS DIFFICULT. Sensory deficit: HEIDI LE LIGHT TOUCH SENSATION GROSSLY INTACT AND SYMMETRICAL ROM deficit: HEIDI LE WITH MILD HS AND CALF TIGHTNESS. HEIDI HIP IR/ER ROT TIGHTNESS L>R. Motor deficit: HEIDI LE'S 5/5 Reflexes: HEIDI LE'S 3+ Dural Signs: POSITIVE R LE Lumbar mvmt loss: flex - MOD TO AGUILAR - INCREASES - NW ext - MOD TO AGUILAR - INCREASES LBP AND PRODUCES HEIDI ANT THIGH PAIN - W R SG - MOD - INCREASES L LBP - NW L SG - MOD - INCREASES - LBP - NW Core strength: FAIR Palpation: HEIDI LUMBOSACRAL TENDERNESS TREATMENT: NEUROMUSCULAR REEDUCATION - RETRAINING OF MVMT AND POSTURE FOR SITTING, LYING AND STANDING ACTIVITIES. PATIENT DEMONSTRATED/COMMUNICATED A GOOD UNDERSTANDING OF INSTRUCTIONS AFTER GIVEN BUT NEED FOR REINFORCEMENT ANTICIPATED. Balance/Special Test Scores Oswestry Low Back Score: 29 Goals Goal 1:: PATIENT WILL REPORT DECREASED BACK AND LE SX'S BY AT LEAST 50% TO EASE ADL AND WORK FUNCTION Goal Time Frame: 2-4 Weeks Goal 2:: PATIENT WILL HAVE LUMBAR ROM WFL TO ALLOW FOR RETURN TO WORK Goal Time Frame: 2-4 Weeks Goal 3:: PATIENT WILL DEMONSTRATE GOOD POSTURE CONTROL AND BODY MECHANICS FOR SAFE RETURN TO NORMAL ADL'S AND WORK Goal Time Frame: 2-4 Weeks Goal 4:: PATIENT WILL SCORE AT LEAST 5 POINTS BETTER ON THE BACK OSWESTRY QUESTIONAIRE Goal Time Frame: 4-6 Weeks Goal 5:: PATIENT WILL BE INDEP WITH A HEP FOR CONTINUED IMPROVEMENT ONCE FORMAL PHYSICAL THERPAY CONCLUDES. Goal Time Frame: 4-6 Weeks Rehabilitation Potential Physical Therapy Diagnosis: TRUNK AND LE PAIN, STIFFNESS AND WEAKNESS Rehabilitation Potential: Good Anticipated Interventions Patient/Client Instruction: Educate patient on: Condition, Plan of Care and Risk Factors For the Purpose of:: To improve self management Therapeutic Exercise to Include: Strength training, Body mechanics, Postural training, Flexibilty training, Gait and locomotor training, Neuromotor development, In an aquatic setting and Dynamic Lumbar Stabilization For the Purpose of:: To decrease pain, To increase ROM, To improve muscle performance and motor function, To increase tolerance to activity/condition/position, To improve ability of physical actions for home/community/work/leisure, To improve gait and locomotor functions and To increase flexibility/ROM Text: Thank you for the opportunity to evaluate your patient. For Medicare and Medicare HMO plans, please review the plan of care and approve it. It will need to be FAXED BACK to us at [phone] for Medicare purposes. For Medicare only, by signing this I certify the plan of care. Please let me know if there are questions or concerns regarding this plan of care. Physician Signature: Date:
--- NOTE | 2024-06-03 12:52 | HP.PTREVAL_ITS ---
Re-Evaluation Intro: Kimber Jorge, ANGÉLICA-C, It has been my pleasure to treat ISAK QUEEN over the last 11 visits for ACUTE HEIDI LBP WITH SCIATICA. Please see the progress note below for an update on the physical therapy plan of care! Subjective Subjective: SAW DR. MATTHEWS TODAY. WENT OVER MRI. REFERRED TO DR. SHEPHERD AND DR. GILBERT. ALSO RECOMMENDED CONTINUE PT. PATIENT REPORTS HER R LBP IS PRETTY MUCH GONE BUT THE PAIN ON THE L IS STILL THERE. CAN CARRY THE WATERING CAN ON HER R SIDE WITH IT ABOUT HALF FULL NOW. STATES IF SHE SLEEPS ON ONE OF HER SIDES SHE IS FINE BUT IF SHE ROLLS ONTO HER BACK OR PART WAY ON HER STOMACH SHE HAS A LOT OF PAIN. ABLE TO LEAN OVER AND WASH HER FACE NOW WHICH SHE REPORTS IS A BIG IMPROVEMENT. ABLE TO WALK AROUND THE NEIGHBORHOOD NOW WHICH IS A MILE AND STATES SHE COULDN'T DO THAT WHEN SHE FIRST STARTED PT. IT DID INCREASE HER PAIN TO WALK THAT MILE BUT STATES AT LEAST SHE COULD DO IT. SHE REPORTS BEING ABLE TO TAKE SHORTER WALKS WITHOUT PAIN AND WALKS WITHOUT THE INCLINE WITHOUT PAIN BUT THERE WAS AN INCLINE IN HER [facility] THAT MIGHT HAVE CONTRIBUTED TO HER PAIN THAT MILE. Objective Objective/Function: UPON EXAM TODAY PATIENT DEMONSTRATES PROGRESS TOWARD ALL SET PT GOALS BUT SHE STILL HAS SIGNIFICANT C/O SX'S AND FUNCTIONAL LIMITATIONS WITH HER CORE AND LE'S. SHE APPEARS TO BE A GOOD CANDIDATE TO CONTINUE AQUATIC THERAPY AT THIS TIME BASED ON PROGRESS MADE AND ROOM FOR FURTHER IMPROVEMENT. PATIENT IS AGREEABLE. TESTING TODAY: PATIENT IS ABLE TO TRANSFER INDEP'LY FROM SIT TO STAND WITHOUT UE ASSIST OR DIFFICULTY NOW. Sensory deficit: DECREASED L LATERAL THIGH AND LEG LIGHT TOUCH COMPARED TO R. POSTURE: PATIENT STILL STANDS IN ANTERIOR PELVIC TILT. SHE IS ABLE TO PARTIALLY CORRECT BUT NOT MAINTAIN. PARTIAL CORRECTION ALLEVIATES LE SX'S. ROM deficit: HEIDI LE WITH MILD HS AND CALF TIGHTNESS. HEIDI HIP IR/ER ROT TIGHTNESS L>R. Motor deficit: HEIDI LE'S 5/5 Reflexes: HEIDI LE'S 3+ Dural Signs: NEGATIVE R LE. QUESTIONALBE POSITIVE LLE. Lumbar mvmt loss: flex - MIN ext - MOD R SG - MOD - INCREASES L LBP - NW L SG - MOD - INCREASES L- LBP - NW PATIENT WITH C/O FEELING LIKE LEGS ARE CRAMPING IN STANDING DURING LUMBAR ROM TESTING BUT LUMBAR ROM HAS IMPROVED SINCE INITIAL EVAL AND LBP WITH LUMBAR ROM HAS IMPROVED. ONSET OF C/O LE CRAMPIING IN STANDING STARTS AFTER JUST A FEW MINUTES. Core strength: FAIR Palpation: LOWER LUMBAR AND SACRAL TENDERNESS. ALSO LEFT LUMBAR REGION AND SI TENDERNESS. PATIENT WITH C/O INCREASED LOW BACK PAIN WITH SUPINE LYING ALMOST IMMEDIATELY. Plan Plan Plan: CONTINUE AQUATIC THERAPY 2X'S A WK X 5 WKS. *WORK ON ANTERIOR PELVIC TILT CORRECTION WITH ALL ACTIVITIES/EXTERCISES* AQUATIC THERAPY FOR PAIN RELEIF, POSTURE CORRECTION/STRENGTHENING, INSTRUCTION IN APPROPRIATE BODY MECHANICS AND ACTIVITY MODIFICATIONS. DLS WITH A NEUTRAL SPINE ONLY (ANTERIOR PELVIC TILT CORRECTION) HEIDI LE ROM, STRETCHING AND STRENGTHENING. HEP INSTRUCTION. Balance/Gait/Functional tests Balance/Special Test Scores Oswestry Low Back Score: 13 Goals Goals Goal 1:: PATIENT WILL REPORT DECREASED BACK AND LE SX'S BY AT LEAST 50% TO EASE ADL AND WORK FUNCTION Goal Time Frame: 2-4 Weeks Goal Progress: Progressing Goal 2:: PATIENT WILL HAVE LUMBAR ROM WFL TO ALLOW FOR RETURN TO WORK Goal Time Frame: 2-4 Weeks Goal Progress: Progressing Goal 3:: PATIENT WILL DEMONSTRATE GOOD POSTURE CONTROL AND BODY MECHANICS FOR SAFE RETURN TO NORMAL ADL'S AND WORK Goal Time Frame: 2-4 Weeks Goal Progress: Progressing Goal 4:: PATIENT WILL SCORE AT LEAST 5 POINTS BETTER ON THE BACK OSWESTRY QUESTIONAIRE Goal Time Frame: 4-6 Weeks Goal Progress: Goal Met Goal 5:: PATIENT WILL BE INDEP WITH A HEP FOR CONTINUED IMPROVEMENT ONCE FORMAL PHYSICAL THERPAY CONCLUDES. Goal Time Frame: 4-6 Weeks Goal Progress: Progressing Anticipated Interventions Anticipated Interventions Patient/Client Instruction: Educate patient on: Condition, Plan of Care and Risk Factors For the Purpose of:: To improve self management Therapeutic Exercise to Include: Strength training, Body mechanics, Postural training, Flexibilty training, Gait and locomotor training, Neuromotor development, In an aquatic setting and Dynamic Lumbar Stabilization For the Purpose of:: To decrease pain, To increase ROM, To improve muscle performance and motor function, To increase tolerance to activity/condition/position, To improve ability of physical actions for home/community/work/leisure, To improve gait and locomotor functions and To increase flexibility/ROM Re-Evaluation Ending Re-evaluation ending: Please do not hesitate to contact me at [phone] by phone or if you have questions or concerns regarding this new plan of care! Sincerely, Saundra Cesar, PT, Cert MDT
== END 2024-07-04 19:00 | disposition home or self-care (01) ==
LOC: PT 13:30
PROVIDERS: PCP Student in an Organized Health Care Education/Training Program; Visit Provider Registered Nurse
DX: M54.41 Lumbago with sciatica, right side (principal); M54.42 Lumbago with sciatica, left side
CPT/HCPCS: 97112; 97113; 97162; 97530

== ENCOUNTER → 2024-09-20 | Outpatient (CLI) | payer OTHER, SELFPAY ==
[2024-09-20 11:30] LABS: Estradiol 49.5 pg/mL
[2024-09-21 04:07] LABS: PROGESTERONE <0.1 ng/mL (.)
[2024-09-27 11:09] LABS: Testosterone, % Free 1.35 % (0.50-2.80); Testosterone, Free <.04 ng/dL (0.10-0.85); Testosterone, Total < 3 ng/dL (4-50)
== END | disposition home or self-care (01) ==
LOC: LAB 10:08
PROVIDERS: PCP Student in an Organized Health Care Education/Training Program; Referring Provider Student in an Organized Health Care Education/Training Program; Visit Provider Student in an Organized Health Care Education/Training Program
DX: R68.82 Decreased libido (principal)
CPT/HCPCS: 36415; 82670; 84144; 84402; 84403

== ENCOUNTER → 2024-10-01 | Outpatient (CLI) | payer OTHER, SELFPAY | END | disposition home or self-care (01) | LOC: CVS 08:04 | PROVIDERS: PCP Student in an Organized Health Care Education/Training Program; Referring Provider Student in an Organized Health Care Education/Training Program; Visit Provider Student in an Organized Health Care Education/Training Program | DX: R51.9 Headache, unspecified (principal); R03.0 Elevated blood-pressure reading, without diagnosis of hypertension; R06.02 Shortness of breath; R23.8 Other skin changes | CPT/HCPCS: 93306; 93880; 93922; 93975 ==

== ENCOUNTER → 2025-01-02 | Outpatient (CLI) | payer OTHER, SELFPAY ==
--- NOTE | 2025-01-02 08:02 | CT_ITS ---
PROCEDURE: ABDOMEN/PELVIS WITH CONTRAST REASON FOR EXAM: History of Crohn's disease. Diarrhea. Prior partial colectomy. TECHNIQUE: Abdomen and pelvis CT with intravenous contrast. Oral contrast was also used. IV CONTRAST: 100 cc of Isovue-300. COMPARISON: Comparison is made with prior study dated July 13, 2021. FINDINGS: Lung bases: Clear Liver: Unremarkable. Gallbladder: Unremarkable. Spleen: Unremarkable. Pancreas: Unremarkable. Adrenals: Unremarkable. Kidneys: Nonobstructive small bilateral intrarenal calculi more prominent on the left side. Tiny bilateral renal cysts. Bladder: Unremarkable. Reproductive Organs: Prior hysterectomy. Adnexal regions are unremarkable. Bowel: Circumferential thickening of the rectosigmoid colon suggestive of inflammatory changes. Scattered sigmoid diverticula are seen. Status post right hemicolectomy. Appendix: Status post appendectomy. Lymph nodes: No suspicious lymph node enlargement. Vasculature: Major vascular structures are unremarkable. Peritoneum / Retroperitoneum: No ascites. No free air. Small retroperitoneal lymph nodes. These are normal. Bones: Unremarkable. CT/Abdomen/Pelvis WITH Contrast IMPRESSION: Inflammatory changes seen in the rectosigmoid colon. Scattered sigmoid diverti cula are seen at that site. Nonobstructive bilateral renal calculi and small bilateral renal cysts. One or more dose reduction techniques were used (e.g., Automated exposure contr ol, adjustment of the mA and/or kV according to patient size, use of iterative reconstruction technique). Reading Location: [place] [id number]
== END | disposition home or self-care (01) ==
PROVIDERS: PCP Student in an Organized Health Care Education/Training Program; Referring Provider Internal Medicine Gastroenterology; Visit Provider Internal Medicine Gastroenterology
DX: K50.90 Crohn's disease, unspecified, without complications (principal); K59.1 Functional diarrhea
CPT/HCPCS: 74177; Q9967

== ENCOUNTER → 2025-03-03 | Outpatient (CLI) | payer OTHER, SELFPAY ==
--- NOTE | 2025-03-03 12:50 | RAD_ITS ---
PROCEDURE: CERV SPINE OBL/FLEX/EXT COMP 03/03/2025 REASON FOR EXAM: CERVICAL SPINE PAIN TECHNIQUE: 7 views of the cervical spine. AP, lateral, bilateral obliques, flexion and extension and open mouth odontoid COMPARISON: None available FINDINGS: Cervical spine is visualized on the lateral view from the skull base to the top of T1. No fracture or malalignment. No prevertebral soft tissue swelling. Disc spaces appear within limits. No evidence of instability. No significant osseous foraminal narrowing identified. Visualized apices appear clear. RAD/Cerv Spine Obl/Flex/Ext Comp IMPRESSION: Study appears within limits. Reading Location: [id number]
== END | disposition home or self-care (01) ==
LOC: RAD 12:37
PROVIDERS: PCP Student in an Organized Health Care Education/Training Program; Referring Provider Clinical Nurse Specialist Adult Health; Visit Provider Clinical Nurse Specialist Adult Health
DX: M54.2 Cervicalgia (principal)
CPT/HCPCS: 72052

== ENCOUNTER → 2025-03-26 | Outpatient (CLI) | payer OTHER, SELFPAY ==
[2025-03-26 07:58] LABS: Hemoglobin A1c 5.1 % (<=5.6)
[2025-03-26 08:06] LABS: ALB/GLOB Ratio 1.6 RATIO (0.9-2.4); AST(SGOT) 28 U/L (<=31); Alanine Aminotransfer ALT/SGPT 20 U/L (<=34); Albumin, Serum 4.5 g/dL (3.5-5.0); Alkaline Phosphatase 68 U/L (35-104); Anion Gap 11 (5-15); BUN 19 mg/dL (4-19); BUN/Creat Ratio 22.3 RATIO (10-20); Calcium,Total 9.1 mg/dL (7.6-11.0); Carbon Dioxide 21.9 mmol/L (21.0-32.0); Chloride 107 mmol/L (98-108); Creatinine, Serum 0.84 mg/dL (0.70-1.20); EST Glomerular Filtration Rate 86 (>60); Globulin 2.8 g/dL (2.2-4.2); Glucose 100 mg/dL (70-99); Potassium 3.7 mmol/L (3.3-5.1); Protein, Total 7.3 g/dL (5.9-8.4); Sodium Level 139 mmol/L (133-145); Total Bilirubin 0.69 mg/dL (0.00-1.30)
[2025-03-26 08:07] LABS: Estradiol 57.2 pg/mL; Follicle Stimulating Hormone 9.3 mIU/mL; Testosterone, Total < 2.50 ng/dL (9-55)
[2025-03-27 04:07] LABS: PROGESTERONE 0.4 ng/mL (.)
[2025-03-27 05:07] LABS: Insulin Level 11.9 uIU/mL (2.6-24.9)
== END | disposition home or self-care (01) ==
LOC: LAB 06:59
PROVIDERS: PCP Student in an Organized Health Care Education/Training Program; Referring Provider Student in an Organized Health Care Education/Training Program; Visit Provider Student in an Organized Health Care Education/Training Program
DX: R03.0 Elevated blood-pressure reading, without diagnosis of hypertension (principal); E66.811 Obesity, class 1; Z68.30 Body mass index [BMI] 30.0-30.9, adult; N95.9 Unspecified menopausal and perimenopausal disorder
CPT/HCPCS: 36415; 80053; 82670; 83001; 83036; 83525; 84144; 84403

== ENCOUNTER → 2025-05-06 | Outpatient (CLI) | payer OTHER, SELFPAY ==
--- NOTE | 2025-05-06 12:40 | BI_ITS ---
EXAM: SCRN MAMM (CAD)W/ANDREAS BILAT DATE: 05/06/2025 CLINICAL HISTORY: F, Age 44 y/o , SCREENING History of bilateral cysts. BREAST CANCER RISK ASSESSMENT: Not assessed. TECHNIQUE: Bilateral screening digital breast tomosynthesis with 2D and 3D images. Computer aided detection. COMPARISON: Prior exam(s) dated April 25, 2024.. FINDINGS: TISSUE DENSITY: The breast tissue is composed of scattered areas of fibroglandular density. Bilateral Breast Mammographic Findings: No significant masses, calcifications or other abnormalities are identified. A tissue clip marker is seen in the retroareolar region of the left breast. Stable fat containing bilateral axillary lymph nodes. No suspicious masses, areas of developing architectural distortion, or suspicious calcifications. There has been no significant interval change. BI/SCRN MAMM (CAD)W/ANDREAS BILAT IMPRESSION: Stable examination. OVERALL FINAL ASSESSMENT BI-RADS 2: BENIGN RECOMMEND ANNUAL MAMMOGRAPHIC SCREENING. RECOMMENDATION: Routine annual follow-up in 1 Year A letter with findings and recommendations will be mailed to the patient. Reading Location: [place] [id number]
== END | disposition home or self-care (01) ==
LOC: OPBI 12:39
PROVIDERS: PCP Student in an Organized Health Care Education/Training Program; Referring Provider Student in an Organized Health Care Education/Training Program; Visit Provider Student in an Organized Health Care Education/Training Program
DX: Z12.31 Encounter for screening mammogram for malignant neoplasm of breast (principal)
CPT/HCPCS: 77063; 77067

== ENCOUNTER → 2025-07-22 | Outpatient (CLI) | payer OTHER, SELFPAY ==
--- OUTSIDE RECORDS SUMMARY | 2025-07-22 07:29 | XMS RPT_ITS | CCD ---
Author Organization [facility] Care Team Providers Care Geological Scout Name Role Phone Hernandez GATE WATCH, Geri Rushing Unavailable Aman Gary Unavailable Unavailable Shannon Maciel Unavailable Unavailable None, No PCP Unavailable Unavailable To Lnogoria DO Primary Care Provider To Longoria DO Primary Care Provider Dr. To Longoria Primary Care Provider Dr. To Longoria Referring Provider RAHUL Chung Attending Provider To Longoria DO Primary Care Provider Dr. To Longoria Primary Care Provider Dr. To Longoria Referring Provider RAHUL Chung Attending Provider To Longoria DO Primary Care Provider Dr. To Longoria Primary Care Provider Dr. To Longoria Referring Provider RAHUL Chung Attending Provider Dr. To Longoria Primary Care Provider Dr. To Longoria Referring Provider RAHUL Edwards Attending Provider Delmy, Dr. Major Attending Provider [phone] To Longoria Primary Care Provider Dr. To Longoria Referring Provider RAHUL Edwards Attending Provider Dr. Pedrito Brock Attending Provider [phone] Dr. Pedrito Brock Other Provider [phone] To Longoria Primary Care Provider Dr. To Longoria Referring Provider Dr. To Longoria Primary Care Provider Dr. To Longoria Referring Provider Dr. Pedrito Brock Attending Provider [phone] Dr. To Longoria Primary Care Provider Dr. To Longoria Referring Provider Roof GATE WATCH, GATE WATCH-C Jonathan Becker Attending Provider Dr. Pedrito Brock Attending Provider [phone] RAHUL Chung Attending Provider Hernandez GATE WATCH, GATE WATCH-Javier Nevarez Attending Provider [phone] Dr. Pedrito Brock Other Provider [phone] To Longoria Primary Care Provider Dr. To Longoria Referring Provider RAHUL Chung Attending Provider Hernandez GATE WATCH, GATE WATCH-Javier Nevarez Attending Provider [phone] Dr. Pedrito Brock Attending Provider [phone] Dr. Pedrito Brock Other Provider RAHUL Heredia Attending Provider [phone] Dr. To Longoria Primary Care Provider Dr. To Longoria Referring Provider Dr. Pedrito Brock Referring Provider [phone] Dr. To Longoria Primary Care Provider Dr. Pedrito Brock Attending Provider [phone] Dr. Pedrito Brock Other Provider Dr. To Longoria Referring Provider To Longoria DO Primary Care Provider BENZ, LAUREL W Attending Unavailable TO LONGORIA Primary Care Unavailable TO LONGORIA Primary Care Unavailable BENZ, LAUREL W Referring Unavailable BENZ, LAUREL W Attending Unavailable TO LONGORIA Primary Care Unavailable BENZ, LAUREL W Referring Unavailable BENZ, LAUREL W Attending Unavailable BENZ, LAUREL W Attending Unavailable TO LONGORIA Primary Care Unavailable SELF Referring Unavailable Dr. To Longoria Primary Care Provider Dr. To Longoria Referring Provider Dr. Pedrito Brock Attending Provider [phone] Knight STEAM PRESSURE CHAMBER OPERATOR.DAISY, Estrella Chavez Unavailable Orquidea STEAM PRESSURE CHAMBER OPERATOR.Mandi VILLA Unavailable Dr. To Longoria DO Primary Care Provider Dr. To Longoria DO Referring Provider Friend , Dr. Major Attending Provider Hernandez LINDSAY-CGeri Attending Provider Dr. Pedrito Brock DO Referring Provider Maribel GATE WATCH-C, Bayron Attending Provider NP. Lisa Werner Attending Provider NP. Lisa Werner Referring Provider [phone] Dr. To Longoria DO Attending Provider Knight STEAM PRESSURE CHAMBER OPERATOR.Estrella VILLA Unavailable Chloe STEAM PRESSURE CHAMBER OPERATOR.Domi VILLA Unavailable Dr. To Longoria DO Primary Care Provider Dr. To Longoria DO Referring Provider Dr. Pedrito Brock DO Attending Provider Meli JORDAN, Dr. Reed Attending Provider Von ROSAS, Dr. Ariza Primary Care Provider Von ROSAS, Dr. Ariza Referring Provider Friend DO, Dr. Major Attending Provider Von ROSAS, Dr. Ariza Primary Care Provider Roof GATE WATCH-CJonathan Attending Provider Longoria, To Primary Care Unavailable Alberto Bo Attending Unavailable Longoria, To Referring Unavailable Longoria, To Attending Unavailable Longoria, To Primary Care Unavailable Longoria, To Referring Unavailable Longoria, To Primary Care Unavailable Kendrick Mayberry Attending Unavailable Longoria, To Primary Care Unavailable Longoria, To Referring Unavailable FriendPedrito Attending Unavailable Longoria, To Primary Care Unavailable Longoria, To Referring Unavailable Bayron López Attending Unavailable Longoria, To Primary Care Unavailable Longoria, To Referring Unavailable FriendPedrito Attending Unavailable Longoria, To Primary Care Unavailable Longoria, To Referring Unavailable Brianna Garrison Attending Unavailable Longoria, To Primary Care Unavailable Longoria, To Referring Unavailable FriendPedrito Attending Unavailable Longoria, To Primary Care Unavailable Longoria, To Referring Unavailable FriendPedrito Attending Unavailable Longoria, To Primary Care Unavailable Longoria, To Referring Unavailable Jonathan López NP Attending Unavailable Longoria, To Primary Care Unavailable Longoria, To Referring Unavailable Geri Ng Attending Unavailable Longoria, To Primary Care Unavailable Longoria, To Referring Unavailable Friend, Pedrito Attending Unavailable Longoria, To Primary Care Unavailable Longoria, To Referring Unavailable Geri gN Attending Unavailable Longoria, To Primary Care Unavailable Friend, Pedrito Referring Unavailable Friend, Pedrito Attending Unavailable Longoria, To Primary Care Unavailable Longoria, To Referring Unavailable Longoria, To Attending Unavailable Longoria, To Primary Care Unavailable Longoria, Ot Referring Unavailable Longoria, To Attending Unavailable Longoria, To Primary Care Unavailable Lisa Werner Referring Unavailable Lisa Werner Attending Unavailable Longoria, To Primary Care Unavailable Longoria, To Referring Unavailable Longoria, To Attending Unavailable TO LONGORIA Attending Unavailable TO LONGORIA L Primary Care Unavailable TO LONGORIA L Attending Unavailable TO LONGORIA L Primary Care Unavailable TO LONGORIA Primary Care Unavailable TO LONGORIA Attending Unavailable Allergies Allergy Classification Reported Allergen(s) Allergy Type Date of Onset Reaction(s) Facility Cephalosporins (antibiotic) (4 sources) Cephalexin Drug Allergy 05-11-[address] [facility] guaiFENesin / Phenylephrine (4 sources) guaiFENesin / Phenylephrine Drug Allergy 02-15-[address] [facility] Lincosamides (antibiotic) (4 sources) Clindamycin Drug Allergy 09-27-[address] [facility] Macrolides (antibiotic) (4 sources) Clarithromycin Drug Allergy 01-08-20 14 [facility] Work Phone: Minocycline (4 sources) Minocycline Drug Allergy 02-15-[address] [facility] Nitroimidazoles (antibiotic) (4 sources) metroNIDAZOLE Drug Allergy 01-08-[address] [facility] Penicillins (antibiotic) (4 sources) Penicillins Drug Allergy 03-14-20 06 Rash, Itching [facility] Work Phone: Serotonin Reuptake Inhibitors (SSRIs) (4 sources) Citalopram Drug Allergy 02-15-[address] [facility] (3 sources) Cephalexin Drug Allergy 09-27-20 16 [facility] (2 sources) Citalopram Drug Allergy 09-27-20 16 [facility] (2 sources) Clindamycin Drug Allergy 09-27-20 16 [facility] (2 sources) guaiFENesin / Pseudoephedrine Drug Allergy 09-27-20 16 [facility] (3 sources) metroNIDAZOLE Drug Allergy 09-27-20 16 [facility] (2 sources) Minocycline Drug Allergy 09-27-20 16 [facility] (2 sources) Penicillin V Drug Allergy 09-27-20 16 [facility] (20 sources) Citalopram Drug Allergy 02-15-[address] [facility] (20 sources) Clarithromycin; Translations: [CLARITHROMYCIN] Drug Allergy 01-08-20 14 [facility] Work Phone: (20 sources) Minocycline; Translations: [MINOCYCLINE] Drug Allergy 02-15-20 06 [facility] ([facility]) Penicillins; Translations: [Penicillins] Allergy to drug (finding) 03-14-20 06 Rash, Itching [facility] Other [facility] (1 source) Pseudoephedrine Drug Allergy [facility] Work Phone: (20 sources) Cephalexin; Translations: [CEPHALEXIN] Drug Allergy 05-11-[address] [facility] Work Phone: (20 sources) Clindamycin; Translations: [CLINDAMYCIN] Drug Allergy 09-27-[address] [facility] (20 sources) guaiFENesin / Phenylephrine; Translations: [PHENYLEPHRINE-GUA IFENESIN] Drug Allergy 02-15-[address] [facility] (20 sources) metroNIDAZOLE; Translations: [METRONIDAZOLE HCL] Drug Allergy 01-08-20 14 [facility] Work Phone: (3 sources) Penicillins Propensity to adverse reactions 03-14-20 06 Rash, Itching [facility] Work Phone: (20 sources) Pseudoephedrine Drug Allergy 03-15-20 19 Other: See Comments [facility] (20 sources) Bee Sting; Translations: [BEE STING] Allergy to substance 05-02-20 11 [facility] Work Phone: (20 sources) Penicillins Propensity to adverse reactions 03-14-20 06 Rash, Itching [facility] Work Phone: (20 sources) Cephalexin; Translations: [cephalexin monohydrate] Drug Allergy 03-23-20 22 [facility] (20 sources) Citalopram; Translations: [citalopram hydrobromide] Drug Allergy 03-23-20 22 Nausea/Vom/Abida rrhea [facility] (20 sources) metroNIDAZOLE Drug Allergy 03-23-20 [facility] (20 sources) Penicillins Allergy to substance 03-23-20 22 [facility] (2 sources) Citalopram; Translations: [CITALOPRAM] Drug Allergy 02-15-20 [facility] Other [facility] (7 sources) Penicillins Propensity to adverse reactions 03-14-20 Rash, Itching [facility] Work Phone: (1 source) metroNIDAZOLE Drug Allergy 07-06-20 [facility] (1 source) Penicillins Drug allergy (disorder) 07-06-20 [facility] Rep[facility] Medications Current Medications Medication Drug Class(es) Dates Sig (Normalized) Sig (Original) acetaminophen 325 mg oral capsule (20 sources) Start: 07-13-2021 take 1 capsule by mouth once as needed for pain Acetaminophen (Tylenol) 325 mg capsule Active 325 mg PO ONCE as needed for Pain July 13, 2021 12:00am [id number] 200 actuat albuterol 0.09 mg/actuat metered dose inhaler (20 sources) beta2-Adrenergic Agonist Start: 05-10-2021 Albuterol Sulfate 90 mcg/actuation Hfa Aerosol Inhaler Active 1 NMA INHALATION EVERY 6 HOURS as needed for sob May 10, 2021 12:00am Start: 05-10-2021 Albuterol Sulf ate Active 1 INH INHALATION EVERY 6 HOURS May 09, 2021 11:00pm Start: 03-23-2020 End: 06-20-2024 take 2 puff(s) by inhalation every four hours as needed albuterol HFA (PROAIR HFA) 90 mcg/actuation inhaler Inhale 2 Puffs as instructed every 4 hours as needed. 1 Each 2 03/22/2024 Active Comment on above: Inhale 2 Puffs as in structed every 4 hours as needed. azithromycin 250 mg oral tablet (20 sources) Macrolide Antimicrobial Start: 07-06-2025 Azithromycin (Zithromax Z-Jamey) 250 mg tablet Active 0 PO .COMPLEX 6 0 July 06, 2025 12:00am For 250 mg dose pack: take 500 mg today (day 1), then 250 mg for 4 days (days 2-5) PO Start: 03-23-2024 End: 05-09-2024 Azithromycin 250 mg tablet Discontinued 0 PO .COMPLEX 6 0 March 23, 2024 12:00am May 09, 2024 2:57pm For 250 mg dose pack: take 500 mg today (day 1), then 250 mg for 4 days (days 2-5) PO Start: 06-18-2023 End: 08-28-2023 take 2-5 tablets by mouth once daily Azithromycin (Zithromax Z-Jamey) 250 mg tablet Discontinued 0 PO .COMPLEX 6 0 June 18, 2023 1:10pm August 28, 2023 3:35pm take 500 mg today (day 1), then 250 mg for 4 days (days 2-5) PO Start: 04-11-2021 End: 04-30-2021 take 2-5 tablets by mouth once daily Azithromycin (Zithromax Z-Jamey) 250 mg tablet Discontinued 0 PO .COMPLEX 6 0 April 11, 2021 12:00am April 30, 2021 11:20am take 500 mg today (day 1), then 250 mg for 4 days (days 2-5) PO benzonatate 200 mg oral capsule (12 sources) Non-narcotic Antitussive Start: 07-06-2025 take 1 capsule by mouth three times daily as needed for cough Benzonatate 200 mg capsule Active 200 mg PO THREE TIMES A DAY as needed for cough 20 0 July 06, 2025 12:00am Start: 10-27-2022 End: 01-19-2023 take 1 capsule by mouth every eight hours as needed benzonatate (TESSALON PERLES) 100 mg capsule Take 1 capsule by mouth three times daily as needed for cough. 12 capsule 0 10/27/2022 01/19/2023 Discontinued (Other) End: 11-03-2020 take 1 capsule by mouth every eight hours as needed Benzonatate 200 mg capsule Take 200 mg by mouth three times daily as needed for Cough. 11/03/2020 Discontinued (Course of therapy completed) Comment on above: Take 1 capsule by [facility] three times daily as needed for cough. 24 hr buPROPion hydrochloride 300 mg extended release oral tablet (20 sources) Aminoketone Start: 12-28-2023 End: 07-10-2024 Bupropion Hcl 300 mg tablet extended release 24 hr Active 400 mg PO DAILY December 28, 2023 2:29pm Start: 12-08-2023 End: 11-04-2024 take 1 tablet by mouth once daily buPROPion XL (WELLBUTRIN XL) 300 mg 24 hr tablet Take 1 tablet by mouth once daily. 90 tablet 08/06/2024 Active Start: 12-08-2023 End: 01-18-2024 take 1 tablet by mouth once daily buPROPion XL (WELLBUTRIN XL) 150 mg 24 hr tablet Take 1 tablet by mouth once daily for 7 days. 7 tablet 0 12/08/2023 01/18/2024 Discontinued (Course of therapy completed) Start: 09-01-2022 End: 12-28-2023 take 1 tablet by mouth once daily Bupropion Hcl 300 mg tablet extended release 24 hr Discontinued 300 mg PO DAILY November 04, 2022 1:00am December 28, 2023 2:30pm Start: 09-01-2022 End: 10-06-2022 take 1 tablet by mouth once daily buPROPion XL (WELLBUTRIN XL) 150 mg 24 hr tablet Take 1 tablet by mouth once daily for 7 days. 7 tablet 0 09/01/2022 10/06/2022 Discontinued (Course of therapy completed) Start: 08-10-2022 take 1 tablet by jeffery th once daily buPROPion SR (WELLBUTRIN SR) 100 mg 12 hr tablet Indications: Depression, unspecified depression type Take 1 tablet by mouth once daily. 90 tablet 1 08/10/2022 Active Start: 01-27-2022 End: 07-21-2022 take 1 tablet by mouth once daily buPROPion XL (WELLBUTRIN XL) 150 mg 24 hr tablet Take 1 tablet by mouth once daily. 30 tablet 2 01/27/2022 07/21/2022 Discontinued Start: 09-22-2021 End: 03-23-2022 take 1 tablet by mouth once daily in the morning Bupropion Hcl 300 mg tablet extended release 24 hr Discontinued 300 mg PO EVERY MORNING September 22, 2021 12:00am March 23, 2022 11:28am Start: 10-20-2020 End: 09-22-2021 Bupropion Hcl 150 MG tablet extended release 24 hr Discontinued 300 mg PO DAILY October 20, 2020 1:00am September 22, 2021 1:59pm Start: 10-20-2020 End: 09-22-2021 take 300 mg by mouth once daily Bupropion Hcl Disconti nued 300 MG PO DAILY October 20, 2020 12:00am September 22, 2021 12:59pm Start: 05-15-2019 End: 09-22-2020 take 1 tablet by mouth twice daily Bupropion Hcl (Wellbutrin Sr) 150 mg tablet sustained-release 12 hr Discontinued 200 mg PO TWICE A DAY May 15, 2019 12:00am September 22, 2020 4:30pm take 1 tablet by jeffery th every twelve hours Wellbutrin SR 150 MG Oral Tablet Extended Release 12 Hour Refills: 0 Active Comment on above: Take 1 tablet by jeffery th once daily. Take 1 tablet by jeffery th once daily for 7 days. celecoxib 100 mg oral capsule (17 sources) Nonsteroidal Anti-inflammatory Drug Start: 4 take 1 capsule by mouth twice daily Celecoxib (Celebrex) 100 mg capsule Active 100 mg PO TWICE A DAY October 31, 2024 1:00am cetirizine hydrochloride 10 mg oral capsule (20 sources) Histamine-1 Receptor Antagonist Start: 0 take 1 capsule by mouth once daily Cetirizine (Zyrtec) 10 mg capsule Active 10 mg PO DAILY September 30, 2020 1:00am Start: 05-16-2016 End: 03-12-2019 take 1 tablet by mouth once daily Cetirizine 10 MG tablet Discontinued 10 mg PO DAILY May 16, 2016 12:00am March 12, 2019 10:40am Comment on above: Take 10 mg by mouth once daily. cholecalciferol 0.025 mg oral capsule (20 sources) Vitamin D Start: 03-23-20 take 1 capsule by mouth once daily Cholecalciferol (Vitamin D3) 25 mcg (1,000 unit) capsule Active 25 ug PO DAILY March 23, 2022 12:00am Start: 12-23-2020 End: 04-30-2021 take 1 tablet by mouth once daily Cholecalciferol (Vitamin D3) 25 mcg (1,000 unit) tablet Discontinued 25 ug PO DAILY December 23, 2020 1:00am April 30, 2021 11:20am Start: 10-12-2020 End: 12-23-2020 take 1 capsule by mouth once daily Cholecalciferol (Vitamin D3) 50 mcg (2,000 unit) capsule Discontinued 1000 U PO DAILY October 12, 2020 2:44pm December 23, 2020 11:55am Start: 09-02-2019 End: 10-12-2020 take 1 capsule by mouth once daily Cholecalciferol (Vitamin D3) 2,000 UNIT capsule Discontinued 2000 U PO DAILY September 02, 2019 12:00am October 12, 2020 2:45pm Start: 05-18-2018 End: 03-12-2019 take 1 capsule by mouth once daily Cholecalciferol (Vitamin D3) 1,000 unit capsule Discontinued 1000 U PO daily May 18, 2018 12:00am March 12, 2019 10:40am Start: 08-24-2017 VITAMIN D3 200 0 UNIT TABS CHOLECALCIFEROL [id number] Geri Ng NP End: 04-30-2021 take 1 tablet by mouth once daily cholecalciferol (VITAMIN D-3) 2,000 unit tablet Take 2,000 Units by mouth once daily. 04/30/2021 Discontinued (Other) Comment on above: Take 25 mcg by mouth once daily. clonazePAM 0.5 mg oral tablet (20 sources) Benzodiazepine Start: 11-04-2022 End: 05-03-2024 Clonazepam 0.5 mg tablet Active 0.5 mg PO NEEDED as needed for Anxiety November 04, 2022 1:00am Start: 09-01-2022 End: 09-12-2023 take 1 tablet by mouth twice daily as needed clonazePAM (KLONOPIN) 0.5 mg tablet Indications: Recurrent major depressive disorder, in partial remission (HCC) , KATHIE (generalized anxiety disorder) Take 1 tablet by mouth twice daily as needed for up to 60 days. 60 tablet 1 01/26/2023 09/12/2023 Discontinued (Course of therapy completed) Start: 05-25-2022 End: 08-20-2022 take 1 tablet by mouth twice daily as needed clonazePAM (KLONOPIN) 0.5 mg tablet Indications: Recurrent major depressive disorder, in partial remission (HCC) , KATHIE (generalized anxiety disorder) Take 1 tablet by mouth twice daily as needed for up to 30 days. 30 tablet 0 07/21/2022 Active Start: 02-23-2022 End: 05-25-2022 take 1 tablet by mouth twice daily as needed clonazePAM (KLONOPIN) 1 mg tablet Indications: KATHIE (generalized anxiety disorder) Take 1 tablet by mouth twice daily as needed for up to 30 days. 30 tablet 0 02/23/2022 05/25/2022 Discontinued (Course of therapy completed) Start: 10-27-2021 End: 05-25-2022 take 0.5 tablet by mouth twice daily as needed clonazePAM (KLONOPIN) 1 mg tablet Indications: KATHIE (generalized anxiety disorder) Take 0.5 tablets by mouth twice daily as needed for up to 30 days. 30 tablet 0 10/27/2021 05/25/2022 Discontinued (Course of therapy completed) Comment on above: Take 0.5 tablets by mouth twice daily as needed for up to 30 days. Take 1 tablet by jeffery th twice daily as needed for up to 30 days. Take 1 tablet by jeffery th twice daily as needed for up to 60 days. Take 1 tablet by jeffery th at bedtime as needed for up to 30 days. cyclobenzaprine hydrochloride 5 mg oral tablet (20 sources) Muscle Relaxant Start: 06-11-20 take 1 tablet by mouth at bedtime Cyclobenzaprine 5 mg tablet Active 5 mg PO AT BEDTIME June 11, 2024 12:00am Start: 05-06-2024 End: 06-11-2024 take 1 tablet by mouth three times daily Cyclobenzaprine 10 mg tablet Discontinued 10 mg PO THREE TIMES A DAY June 11, 2024 12:00am June 11, 2024 8:57am Start: 08-09-2021 End: 09-22-2021 take 5 mg by mouth at bedtime Cyclobenzaprine 10 mg ta blet Discontinued 5 mg PO BEDTIME August 09, 2021 4:01pm September 22, 2021 2:01pm Start: 08-09-2021 End: 09-22-2021 take 5 mg by mouth at bedtime Cyclobenzaprine Disconti nued 5 MG PO BEDTIME August 09, 2021 3:01pm September 22, 2021 1:01pm Start: 07-19-2021 End: 08-09-2021 take 1 tablet by mouth at bedtime Cyclobenzaprine 10 mg tablet Discontinued 10 mg PO BEDTIME July 19, 2021 12:00am August 09, 2021 4:04pm Start: 11-15-2019 End: 09-30-2020 take 1 tablet by mouth three times daily as needed for muscle spasms Cyclobenzaprine 10 mg tablet Discontinued 10 mg PO THREE TIMES A DAY as needed for muscle spasm 30 2 November 15, 2019 1:00am September 30, 2020 2:53pm Start: 04-18-2018 End: 03-12-2019 take 1 tablet by mouth three times daily as needed for muscle spasms Cyclobenzaprine 10 mg tablet Discontinued 10 mg PO THREE TIMES A DAY as needed for muscle spasm 30 2 April 18, 2018 12:00am March 12, 2019 10:40am Start: 06-22-2016 End: 07-21-2022 take 1 tablet by mouth every eight hours as needed cyclobenzaprine (FLEXERIL) 10 mg tablet Indications: Dysmenorrhea Take 1 tablet by mouth every 8 hours as needed. 30 tablet 2 06/22/2016 07/21/2022 Discontinued (Course of therapy completed) Comment on above: Take 1 tablet by jeffery every 8 hours as needed. [id number] 0.3 ml EPINEPHrine 1 mg/ml auto-injector (20 sources) alpha-Adrenergic Agonist, beta-Adrenergic Agonist, Catecholamine Start: 020 End: 021 EPINEPHrine (EPIPEN) 0.3 mg/0.3 mL auto-injector Indications: Bee allergy status Inject 0.3 mL subcutaneously as needed. Then seek medical attention immediately. 2 Each 1 04/30/2021 Active Comment on above: Inject 0.3 mL subcut aneously as needed. Then seek medical attention immediately. esomeprazole 40 mg delayed release oral capsule (20 sources) Proton Pump Inhibitor Start: 022 End: 023 take 1 capsule by mouth once daily before breakfast esomeprazole (NEXIUM) 20 mg capsule Indications: GERD without esophagitis Take 1 capsule by mouth daily before breakfast. 1/2 hr before meal. 90 capsule 1 10/11/2022 01/19/2023 Discontinued (Other) Start: 01-10-2022 End: 08-20-2024 take 1 capsule by mouth twice daily before mealtime esomeprazole (NEXIUM) 40 mg capsule Indications: GERD without esophagitis Take 1 capsule by mouth two times a day before meals. 1/2 hr before meal. 180 capsule 5 08/20/2024 Active Start: 09-22-2021 take 1 capsule by mo [facility] once daily Esomeprazole Magnesium (Nexium) 40 mg capsule,delayed release(DR/EC) Active 40 mg PO DAILY September 22, 2021 2:00pm Start: 12-23-2020 End: 09-22-2021 take 1 capsule by mouth twice daily Esomeprazole Magnesium (Nexium) 40 mg capsule,delayed release(DR/EC) Discontinued 40 mg PO TWICE A DAY December 23, 2020 11:55am September 22, 2021 2:01pm Start: 09-22-2020 End: 12-23-2020 take 1 capsule by mouth once daily Esomeprazole Magnesium (Nexium) 40 mg capsule,delayed release(DR/EC) Discontinued 40 mg PO DAILY September 22, 2020 1:00am December 23, 2020 11:55am Start: 08-24-2020 End: 09-18-2020 take 1 capsule by mouth twice daily before mealtime esomeprazole (NEXIUM) 40 mg capsule Indications: GERD without esophagitis Take 1 capsule by mouth twice daily before meals. 1/2 hr before meal. 60 capsule 1 08/24/2020 09/18/2020 Discontinued Comment on above: Take 1 capsule by mo uth twice daily before meals. 1/2 hr before meal. Take 1 capsule by mo uth daily before breakfast. 1/2 hr before meal. estradiol 0.01 mg vaginal insert (20 sources) Estrogen Start: 05-16-2025 Estradiol (Yuvafem) 10 mcg tablet Active 10 ug VAGINAL DAILY 20 14 8 May 16, 2025 12:00am nightly for two weeks then twice weekly for maintenance Start: 12-16-2024 apply 1 dose transde rmal route two times weekly, then apply 1 dose transdermal route every hour Estradiol (Vivelle-Dot) 0.075 mg/24 hr patch semiweekly Active 1 NMA TD TWICE A WEEK 07 01December 16, 2024 1:00am apply 1 patch for 3 days alternating with 1 patch for 4 days each week Start: 10-31-2024 End: 12-16-2024 apply 1 dose transdermal route two times weekly, then apply 1 dose transdermal route every hour Estradiol (Vivelle-Dot) 0.05 mg/24 hr patch semiweekly Discontinued 1 NMA TD TWICE A WEEK 12 November 05, 2024 10:56am December 16, 2024 12:17pm apply 1 patch for 3 days alternating with 1 patch for 4 days each week Start: 09-05-2023 End: 05-09-2024 Estradiol 0.01 % (0.1 mg/gra m) cream Discontinued 0 VAGINAL .COMPLEX 42.5 2 September 05, 2023 12:00am May 09, 2024 2:58pm small amount as directed vaginal every other day X 8 weeks then twice a week; Start: 09-05-2023 Estradiol Acti ve 0 VAGINAL .COMPLEX 42.5 September 04, 2023 11:00pm small amount as directed vaginal every other day X 8 weeks then twice a week; estrogen - VERIFY PATCH (6 sources) estrogen - VERIF Y PATCH 0.075 each. 2 weekly Nathaly Active ibuprofen 400 mg oral tablet (20 sources) Nonsteroidal Anti-inflammatory Drug Start: 07-13-2021 End: 08-09-2021 take 1 tablet by mouth every eight hours as needed for pain Ibuprofen 400 mg tablet Active 400 mg PO Q8H as needed for Pain August 09, 2021 4:02pm take 2 tablets by mo uth every four hours as needed IBUPROFEN 200 MG TABS Two tablets by jeffery th every 4 hours as needed IBUPROFEN [id number] Vishnu Cortes PA 24 hr metoprolol succinate 25 mg extended release oral tablet (20 sources) beta-Adrenergic [place] Start: 06-25-2025 take 2 tablets by mouth once daily Metoprolol Succinate 25 mg tablet extended release 24 hr Active 12.5 mg PO daily June 25, 2025 12:00am Start: 03-25-2025 take 1 tablet by jeffery th once daily metoprolol succinate ER (TOPROL XL) 25 mg 24 hr tablet Indications: Elevated blood pressure reading without diagnosis of hypertension Take 1 tablet by mouth once daily. 90 tablet 1 03/25/2025 Active Start: 10-06-2020 End: 06-22-2022 take 1 tablet by mouth once daily Metoprolol Succinate (Toprol Xl) 25 mg tablet extended release 24 hr Discontinued 25 mg PO DAILY 30 September 16, 2021 8:52am June 22, 2022 9:56am Start: 09-30-2020 End: 10-06-2020 take 1 tablet by mouth once daily Metoprolol Tartrate 25 mg tablet Discontinued 25 mg PO DAILY September 30, 2020 2:51pm October 06, 2020 4:26pm Start: 06-16-2020 End: 04-30-2021 take 1 tablet by mouth twice daily Metoprolol Tartrate 25 mg tablet Discontinued 25 mg PO TWICE A DAY 60 June 16, 2020 12:00am September 30, 2020 2:54pm take 1 tablet by jeffery th every twenty-four hours Metoprolol Succinate ER 25 MG Oral Tablet Extended Release 24 Hour Refills: 0 Active Comment on above: Take 25 mg by mouth once daily. molnupiravir (LAGEVRIO, EUA,) 200 mg capsule (2 sources) Start: 05-27-20 End: 06-01-20 take 4 capsules by mouth twice daily molnupiravir (LAGEVRIO, EUA,) 200 mg capsule Take 4 capsules by mouth two times a day for 5 days. 40 capsule 0 05/27/2024 06/01/2024 Active molnupiravir 200 mg capsule (6 sources) Start: 05-26-20 End: 05-31-20 take 4 capsules by mouth twice daily molnupiravir 200 mg capsule Indications: Positive self-administered antigen test for COVID-19 Take 4 capsules by mouth two times a day for 5 days. 40 capsule 0 05/26/2024 05/31/2024 Active mometasone furoate 0.05 mg/actuat metered dose nasal spray (20 sources) Corticosteroid Start: 05-10-20 mometasone (NASONEX) 50 mcg/actuation nasal spray Use 2 Sprays in the nose twice daily. 05/10/2021 Active Start: 05-10-2021 End: 06-22-2022 Mometasone (Nasonex) 50 mcg/ actuation spray,non-aerosol Active 2 NMA INTRANASAL DAILY as needed for ALLERGIES June 22, 2022 9:56am Start: 05-10-2021 End: 06-22-2022 Mometasone (Nasonex) 50 mcg/ actuation spray,non-aerosol Active 2 SPRAY INTRANASAL DAILY June 22, 2022 8:56am Comment on above: Use 2 Sprays in the nose twice daily. MULTI-VITAMIN ORAL (20 sources) MULTI-VITAMIN OR AL Take by mouth. Active MULTI-VITAMIN OR AL Take by mouth. 0 Active Comment on above: Take by mouth. Multivitamin With Minerals (18 sources) Start: 09-02-2019 Multivitamin With Minerals Active 1 EACH PO DAILY September 01, 2019 11:00pm Start: 09-02-2019 Multivitamin W ith Minerals Active 1 EACH PO DAILY September 02, 2019 12:00am Multivitamin With Minerals 1 EACH tablet (6 sources) Start: 09-02-2019 take 1 tablet by mouth once daily Multivitamin With Minerals 1 EACH tablet Active 1 NMA PO DAILY September 02, 2019 12:00am nirmatrelvir tablet 300 mg (150 mg x 2) and ritonavir tablet 100 mg in a dose pack (PAXLOVID) (4 sources) Start: 05-26-2024 End: 05-31-2024 nirmatrelvir tablet 300 mg (150 mg x 2) and ritonavir tablet 100 mg in a dose pack (PAXLOVID) Administer TWO pink nirmatrelvir 150 mg tablets and ONE white ritonavir 100 mg tablet for a total of three tablets twice daily. 30 tablet 0 05/26/2024 05/31/2024 Active 72 hr scopolamine 0.0139 mg/hr transdermal system (20 sources) Anticholinergic Start: 01-15-2024 scopolamine (TRANSDERM-SCOP) patch 1.5 mg/72 hr (delivers 1 mg over 3 days) Apply 1 Patch as directed every 72 hours. Apply patch to skin behind ear 4hrs prior to travel. 10 Patch 01/15/2024 Active Start: 05-20-2022 scopolamine (T RANSDERM-SCOP) patch 1.5 mg/72 hr (delivers 1 mg over 3 days) Indications: Travel advice encounter Apply 1 Patch as directed every 72 hours. Apply patch to skin behind ear 4hrs prior to travel. 10 Patch 1 05/20/2022 Active Comment on above: Apply 1 Patch as dir ected every 72 hours. Apply patch to skin behind ear 4hrs prior to travel. sulfamethoxazole 800 mg / trimethoprim 160 mg oral tablet (20 sources) Dihydrofolate Reductase Inhibitor Antibacterial, Sulfonamide Antimicrobial Start: 3 End: 3 take 1 tablet by mouth twice daily sulfamethoxazo le-trimethopri m (BACTRIM DS) 800-160 mg per tablet Take 1 tablet by mouth two times a day for 10 days. 20 tablet 0 10/03/2023 10/13/2023 Active Start: 09-22-2023 End: 09-29-2023 Sulfamethoxazole-Trimethopri m (Bactrim Ds) 800-160 mg tablet Discontinued 1 {tbl} PO Q12H 14 7 0 September 22, 2023 12:00am 2023 1:00am September 29, 2023 1:05am Start: 07-08-2021 End: 07-18-2021 Sulfamethoxazole-Trimethopri m (Bactrim Ds) 800-160 mg tablet Discontinued 1 {tbl} PO TWICE A DAY 10 5 0 July 13, 2021 12:02pm July 17, 2021 12:00am July 14, 2021 12:27pm Comment on above: Take 1 tablet by jeffery two times a day for 10 days. Tirzepatide (Weight Loss) (3 sources) Start: 05-16-20 Tirzepatide (Weight Loss) (Zepbound) 2.5 mg/0.5 mL pen injector Active mg SC May 16, 2025 12:00am Weight loss tirzepatide, weight loss (ZEPBOUND) 2.5 mg/0.5 mL solution (7 sources) Start: 04-21-20 End: 08-25-20 inject 0.5 mL by subcutaneous injection every week tirzepatide, weight loss (ZEPBOUND) 2.5 mg/0.5 mL solution Indications: Class 1 obesity with body mass index (BMI) of 30.0 to 30.9 in adult, unspecified obesity type, unspecified whether serious comorbidity present Inject 0.5 mL subcutaneously one time a week. BMI 30 3 mL 2 04/21/2025 08/25/2025 Active Start: 03-25-2025 End: 04-21-2025 inject 0.5 mL by subcutaneous injection every week tirzepatide, weight loss (ZEPBOUND) 2.5 mg/0.5 mL solution Indications: Class 1 obesity with body mass index (BMI) of 30.0 to 30.9 in adult, unspecified obesity type, unspecified whether serious comorbidity present Inject 0.5 mL subcutaneously one time a week. BMI 30 3 mL 2 03/25/2025 04/21/2025 Discontinued Start: 03-25-2025 inject 0.5 mL by sub cutaneous injection every week tirzepatide, weight loss (ZEPBOUND) 2.5 mg/0.5 mL solution Indications: Class 1 obesity with body mass index (BMI) of 30.0 to 30.9 in adult, unspecified obesity type, unspecified whether serious comorbidity present Inject 0.5 mL subcutaneously one time a week. BMI 30 3 mL 2 03/25/2025 Active Completed/Discontinued Medications Medication Drug Class(es) Dates Sig (Normalized) Sig (Original) acetaminophen 325 mg / HYDROcodone bitartrate 5 mg oral tablet (20 sources) Opioid Agonist Start: 01-11-2021 End: 01-14-2021 Hydrocodone-Acetami nophen 1 TABLET tablet Discontinued 1 {tbl} PO EVERY 6 HOURS NEEDED as needed for Pain 10 3 0 January 11, 2021 January 13, 2021 1:00am January 14, 2021 1:03am Ruptured cyst of left ovary Unspecified ovarian cyst, left side Start: 01-11-2021 End: 01-14-2021 take 1 tablet by mouth every six hours as needed Hydrocodone-Acetaminophen Discontinued 1 TABLET PO EVERY 6 HOURS NEEDED 10 3 January 11, 2021 January 14, 2021 12:03am acetaminophen 325 mg / oxyCODONE hydrochloride 5 mg oral tablet (20 sources) Opioid Agonist Start: 05-18-2021 End: 05-31-2021 Oxycodone-Acetaminophen (Endocet) 5-325 mg tablet Discontinued 1 {tbl} PO Q4H as needed for pain 20 7 0 May 18, 2021 May 31, 2021 12:12pm Status post laparoscopy-assisted vaginal hysterectomy Acquired absence of both cervix and uterus ALPRAZolam 0.25 mg oral tablet (20 sources) Benzodiazepine Start: 05-15-2019 End: 07-07-2021 take 1 tablet by mouth once daily as needed for anxiety Alprazolam (Xanax) 0.25 mg tablet Discontinued 0.25 mg PO DAILY as needed for Anxiety May 15, 2019 12:00am July 07, 2021 3:11pm amitriptyline hydrochloride 50 mg oral tablet (5 sources) Tricyclic Antidepressant Start: 04-25-2023 End: 09-12-2023 take 1-0.5 tablets by mouth once daily at bedtime amitriptyline (ELAVIL) 50 mg tablet take one half to one tablet po qhs 30 tablet 0 04/25/2023 09/12/2023 Discontinued (Course of therapy completed) Comment on above: take one half to one tablet po qhs azaTHIOprine 50 mg oral tablet (20 sources) Purine Antimetabolite Start: 03-15-2024 End: 02-03-2025 take 1 tablet by mouth once daily Azathioprine 50 mg tablet Discontinued 100 mg PO DAILY 60 0 January 02, 2025 8:14am February 03, 2025 9:43pm Start: 08-25-2023 End: 08-28-2023 take 100 mg by mouth once daily Azathioprine Discontin ued 100 MG PO DAILY August 25, 2023 9:14am August 28, 2023 2:33pm Start: 08-25-2023 End: 03-15-2024 take 1 tablet by mouth once daily Azathioprine 100 mg tablet Discontinued 100 mg PO DAILY 30 30 December 01, 2023 2:57pm March 15, 2024 3:22pm Start: 02-16-2023 End: 08-28-2023 take 1 tablet by mouth once daily Azathioprine 50 mg tablet Discontinued 100 mg PO DAILY 30 3 August 25, 2023 10:14am August 28, 2023 3:33pm Comment on above: Take 100 mg by mouth once daily. baclofen 5 mg oral tablet (10 sources) gamma-Aminobutyric Acid-ergic Agonist Start: 11-06-20 End: 03-23-20 24 take 1 tablet by mouth twice daily Baclofen 5 mg tablet Discontinued 5 mg PO TWICE A DAY 60 0 November 06, 2023 1:00am March 23, 2024 1:39pm 12 hr buPROPion hydrochloride 90 mg / naltrexone hydrochloride 8 mg extended release oral tablet (20 sources) Opioid Antagonist, Aminoketone Start: 03-23-20 End: 06-22-20 take 2 tablets by mouth once daily in the morning, then take 1 tablet by mouth once daily in the evening Naltrexone-Bupropion (Contrave) 8-90 mg tablet extended release Discontinued 1 {tbl} PO ONCE March 23, 2022 12:00am June 22, 2022 9:58am 2 qam, 1 qpm Start: 03-08-2022 End: 08-10-2022 take 2 tablets by mouth twice daily naltrexone-bupropion (CONTRAVE) 8-90 mg ER tablet Indications: Obesity, Class I, BMI 30-34.9 Take 2 tablets by mouth twice daily. 2 tablets PO twice daily, BMI 31.79 120 tablet 0 03/08/2022 08/10/2022 Discontinued Start: 03-07-2022 End: 03-08-2022 take 1 tablet by mouth once daily in the morning, then take 2 tablets by mouth twice daily in the evening naltrexone-bupropion (CONTRAVE) 8-90 mg ER tablet 1 tablet PO once daily in the morning for 1 week; increase as tolerated in weekly intervals: 1 tablet twice daily for 1 week; then 2 tablets in the morning and 1 tablet in the evening for 1 week; and then 2 tablets twice daily 70 tablet 1 03/07/2022 03/08/2022 Discontinued Start: 01-27-2022 End: 03-05-2022 take 1 tablet by mouth once daily in the morning, then take 2 tablets by mouth twice daily in the evening naltrexone-bupropion (CONTRAVE) 8-90 mg ER tablet 1 tablet PO once daily in the morning for 1 week; increase as tolerated in weekly intervals: 1 tablet twice daily for 1 week; then 2 tablets in the morning and 1 tablet in the evening for 1 week; and then 2 tablets twice daily 70 tablet 1 01/28/2022 03/05/2022 Discontinued Comment on above: 1 tablet PO once norberto ly in the morning for 1 week; increase as tolerated in weekly intervals: 1 tablet twice daily for 1 week; then 2 tablets in the morning and 1 tablet in the evening for 1 week; and then 2 tablets twice daily Take 1 tablet by [facility] once daily. Take 2 tablets by mo [facility] twice daily. BMI 31.79 Take 2 tablets by mo [facility] twice daily. 2 tablets PO twice daily, BMI 31.79 Take 2 tablets by mo [facility] twice daily. 1 tablet PO once daily in the morning for 1 week; increase as tolerated in weekly intervals: 1 tablet twice daily for 1 week; then 2 tablets in the morning and 1 tablet in the evening for 1 week; and then 2 tablets twice daily Cholestyramine Resin (15 sources) Bile Acid Sequestrant Start: 3 End: 3 take 1 dose by mouth once Cholestyramine (With Sugar) 4 gram powder Discontinued 4 g PO BEDTIME 348.6 1 March 02, 2023 12:00am August 28, 2023 3:35pm no meds 1 hr before/4-6 hr after dose Start: 03-02-2023 End: 08-28-2023 take 1 dose by mouth once Cholestyramine (With Sugar) 4 gram powder Discontinued 4 g PO BEDTIME 348.6 March 02, 2023 12:00am August 28, 2023 3:35pm no meds 1 hr before/4-6 hr after dose Start: 03-02-2023 End: 08-28-2023 take 1 dose by mouth once Cholestyramine (With Sugar) Discontinued 4 GM PO BEDTIME 348.6 March 01, 2023 11:00pm August 28, 2023 2:35pm no meds 1 hr before/4-6 hr after dose Start: 03-02-2023 End: 08-28-2023 take 1 dose by mouth once Cholestyramine (With Sugar) Discontinued 4 GM PO BEDTIME 348.6 March 02, 2023 12:00am August 28, 2023 3:35pm no meds 1 hr before/4-6 hr after dose Start: 03-02-2023 take 1 dose by mouth once Chol estyramine (With Sugar) Active 4 GM PO BEDTIME 348.6 March 02, 2023 12:00am no meds 1 hr before/4-6 hr after dose clindamycin 300 mg oral capsule (14 sources) Lincosamide Antibacterial Start: 01-02-2025 End: 01-09-2025 take 1 capsule by mouth every six hours Clindamycin Hcl 300 mg capsule Discontinued 300 mg PO EVERY 6 HOURS 28 7 0 January 02, 2025 1:00am January 08, 2025 1:00am January 09, 2025 1:09am Start: 10-28-2022 End: 01-19-2023 clindamycin (CLEOCIN) 150 mg capsule codeine phosphate 2 mg/ml / guaiFENesin 20 mg/ml oral solution (20 sources) Opioid Agonist Start: 07-07-2021 End: 07-08-2021 take 5 mL by mouth four times daily as needed for cough Codeine-Guaifenesin 10-100 mg/5 mL liquid Discontinued 5 mL PO 4 TIMES DAILY 118 0 July 07, 2021 12:00am July 08, 2021 1:04pm Cough Take 5 mL by mouth four times daily as needed for Cough Start: 07-07-2021 End: 07-08-2021 take 5 mL by mouth four times daily as needed for cough Codeine-Guaifenesin Discontinued 5 ML PO 4 TIMES DAILY 118 July 06, 2021 11:00pm July 08, 2021 12:04pm Take 5 mL by mouth four times daily as needed for Cough Start: 03-24-2020 End: 06-16-2020 take 1 mL by mouth every six hours as needed for cough Codeine-Guaifenesin 5 ML liquid Discontinued 5 mL PO EVERY 6 HOURS NEEDED as needed for Cough 100 0 March 24, 2020 7:29am June 16, 2020 11:00am Start: 03-24-2020 End: 06-16-2020 take 1 mL by mouth every six hours as needed Codeine-Guaifenesin Discontinued 5 ML PO EVERY 6 HOURS NEEDED 100 March 24, 2020 6:29am June 16, 2020 10:00am dexamethasone phosphate 1 mg/ml ophthalmic solution (1 source) Corticosteroid Start: 06-03-2019 End: 11-10-2020 take 1 drop(s) into the eye(s) twice daily as needed dexamethasone 0.1% 0.1 % ophthalmic solution Indications: Eczema of external ear 1 Drop twice daily as needed (bilateral ears for itching/rash). 5 mL 11 06/03/2019 11/10/2020 Discontinued dicyclomine hydrochloride 10 mg oral capsule (20 sources) Anticholinergic Start: 05-01-2018 End: 03-12-2019 Dicyclomine 10 MG capsule Discontinued 10 mg PO NEEDED as needed for ABDOMINAL PAIN May 01, 2018 12:00am March 12, 2019 10:40am DULoxetine 20 mg delayed release oral capsule (1 source) Serotonin and Norepinephrine Reuptake Inhibitor Start: 08-12-2020 End: 08-31-2020 DULoxetine (CYMBALTA) 20 mg capsule take 2 tablets daily for 4 days then lower to one tablet daily for 4 days then d/c 12 capsule 08/12/2020 08/31/2020 Discontinued (Course of therapy completed) Esketamine (6 sources) Start: 09-10-2024 End: 07-06-2025 take 3 spray(s) nasal route two times weekly Esketamine 84 mg (28 mg x 3) spray,non-aerosol Discontinued 0 INTRANASAL .COMPLEX September 10, 2024 12:00am July 06, 2025 10:09am inhale 3 sprays into each nostril 2 times per week, with 5-minute rest between use of each device intranasal Start: 09-10-2024 take 3 spray(s) nasa l route two times weekly Esketamine 84 mg (28 mg x 3) spray,non-aerosol Active 0 INTRANASAL .COMPLEX September 10, 2024 12:00am inhale 3 sprays into each nostril 2 times per week, with 5-minute rest between use of each device intranasal fentaNYL (18 sources) Opioid Agonist Start: 03-24-2020 End: 06-16-2020 Fentanyl Discontinued 12 MCG TRANSDERM. Q72H March 24, 2020 June 16, 2020 10:01am Start: 03-24-2020 End: 06-16-2020 Fentanyl Discontinued 12 MCG TRANSDERM. Q72H March 24, 2020 June 16, 2020 11:01am Fentanyl 1 EACH Patch.Td72 (6 sources) Start: 03-24-2020 End: 06-16-2020 Fentanyl 1 EACH Patch.Td72 Discontinued 12 ug TRANSDERM. Q72H 2 March 24, 2020 June 16, 2020 11:01am Muscle pain Myalgia, unspecified site Start: 03-24-2020 End: 06-16-2020 Fentanyl 1 EACH Patch.Td72 D iscontinued 12 ug TRANSDERM. Q72H March 24, 2020 June 16, 2020 11:01am 24 hr ferrous sulfate 142 mg extended release oral tablet (20 sources) Start: 06-16-2020 End: 09-30-2020 take 1 tablet by mouth once daily Ferrous Sulfate (Slow Fe) 142 mg (45 mg iron) tablet extended release Discontinued 142 mg PO DAILY June 16, 2020 12:00am September 30, 2020 2:53pm fluticasone furoate 0.0275 mg/actuat metered dose nasal spray (20 sources) Corticosteroid End: 03-25-2025 take 2 spray(s) nasal route once daily Fluticasone Furoate (FLONASE SENSIMIST) 27.5 mcg/actuation nasal spray Use 2 Sprays in each nostril once daily. 03/25/2025 Discontinued Comment on above: Use 2 Sprays in each nostril once daily. gabapentin 100 mg oral capsule (20 sources) Anti-epileptic Agent Start: 06-19-2024 End: 09-17-2024 take 1 capsule by mouth every eight hours as needed gabapentin (NEURONTIN) 100 mg capsule Take 1 capsule by mouth three times a day as needed (low back pain with sciatica) for up to 30 days. 60 capsule 1 06/19/2024 08/06/2024 Discontinued (Course of therapy completed) Start: 07-08-2021 End: 07-19-2021 take 1 capsule by mouth three times daily Gabapentin 100 mg capsule Discontinued 100 mg PO THREE TIMES A DAY 42 14 0 July 08, 2021 12:00am July 21, 2021 12:00am July 19, 2021 1:35pm Start: 07-05-2021 End: 07-21-2022 take 1 capsule by mouth three times daily gabapentin (NEURONTIN) 300 mg capsule Take 1 capsule by mouth three times daily for 90 days. 90 capsule 2 07/05/2021 07/21/2022 Discontinued (Course of therapy completed) Start: 11-24-2020 take 1 tablet by jeffery once daily Gabapentin 100 MG Oral Capsule Take one tablet daily starting 3 days before surgery Quantity: 3 Refills: 0 Shannon Avila Start : 24-Nov-2020 Active Comment on above: Take 1 capsule by mo [facility] three times daily for 90 days. 12 hr guaiFENesin 600 mg extended release oral tablet (20 sources) Start: 04-11-2021 End: 04-18-2021 take 1 tablet by mouth every twelve hours as needed for cough, then take 1 tablet by mouth every twelve hours as needed for cough Guaifenesin (Mucinex) 600 mg tablet extended release 12hr Discontinued 600 mg PO Q12H as needed for congestion, cough 14 7 0 April 11, 2021 12:00am April 17, 2021 12:00am April 18, 2021 12:01am Hydrocodone Bit/Homatropine (Hycodan Syrup) 5 ML Udc (20 sources) Start: 03-21-2020 End: 06-16-2020 Hydrocodone Bit/Homatropine (Hycodan Syrup) 5 ML Udc Discontinued 5 mL PO EVERY 4 HOURS NEEDED as needed for Cough 100 0 March 21, 2020 June 16, 2020 11:00am Viral pneumonia Viral pneumonia, unspecified Start: 03-21-2020 End: 06-16-2020 Hydrocodone Bit/Homatropine (Hycodan Syrup) 5 ML Udc Discontinued 5 mL PO EVERY 4 HOURS NEEDED as needed for Cough 100 March 21, 2020 June 16, 2020 11:00am Start: 03-21-2020 End: 06-16-2020 Hydrocodone Bit/Homatropine (Hycodan Syrup) 5 ML Udc Discontinued 5 ML PO EVERY 4 HOURS NEEDED 100 March 21, 2020 June 16, 2020 10:00am Start: 03-21-2020 End: 06-16-2020 Hydrocodone Bit/Homatropine (Hycodan Syrup) 5 ML Udc Discontinued 5 ML PO EVERY 4 HOURS NEEDED 100 March 21, 2020 June 16, 2020 11:00am hydroeye (20 sources) Start: 05-18-2018 End: 03-12-2019 hydroeye Discontinued PO 0 J une 2017 10:27am March 12, 2019 10:40am Start: 05-18-2018 End: 03-12-2019 hydroeye Discontinued PO Yogi e 2017 9:27am March 12, 2019 9:40am Start: 05-18-2018 End: 03-12-2019 hydroeye Discontinued PO Yogi e 2017 10:27am March 12, 2019 10:40am Start: 05-18-2018 End: 05-18-2018 hydroeye Discontinued .Route 0 May 18, 2018 12:00am May 18, 2018 10:27am .Route Start: 05-18-2018 End: 05-18-2018 hydroeye Discontinued .Route May 17, 2018 11:00pm May 18, 2018 9:27am .Route Start: 05-18-2018 End: 05-18-2018 hydroeye Discontinued .Route May 18, 2018 12:00am May 18, 2018 10:27am .Route hyoscyamine sulfate 0.125 mg sublingual tablet (20 sources) Start: 01-17-2022 End: 01-19-2023 take 1 tablet under the tongue once daily as needed hyoscyamine sublingual (LEVSIN SL) 0.125 mg Indications: Status post colectomy , Irritable bowel syndrome with diarrhea For diarrhea/cramping, Take 1-2 tablets under tongue every 4hrs as needed. Max 12 tabs per day. 30 tablet 1 01/17/2022 01/19/2023 Discontinued (Other) Comment on above: For diarrhea/crampin g, Take 1-2 tablets under tongue every 4hrs as needed. Max 12 tabs per day. levoFLOXacin 500 mg oral tablet (20 sources) Quinolone Antimicrobial Start: 03-24-2020 End: 06-16-2020 take 1 tablet by mouth once daily Levofloxacin 500 MG tablet Discontinued 500 mg PO DAILY March 24, 2020 12:00am June 16, 2020 11:00am lidocaine 0.05 mg/mg medicated patch (20 sources) Antiarrhythmic, Amide Local Anesthetic Start: 07-13-2021 End: 07-27-2021 Lidocaine 5 % adhesive patch,medicated Discontinued 2 NMA TOPICAL DAILY 15 14 0 July 13, 2021 12:00am July 26, 2021 12:00am July 27, 2021 12:01am leave on most painful area for up to 12 hrs Start: 08-24-2020 End: 04-30-2021 lidocaine viscous (LIDOCAINE VISCOUS) 2 % solution Indications: Dysphagia, unspecified type Take 5 mL by mouth every 6 hours as needed. 100 mL 08/24/2020 04/30/2021 Discontinued (Other) lisinopril 2.5 mg oral tablet (20 sources) Angiotensin Converting Enzyme Inhibitor Start: 10-12-2020 End: 08-09-2021 take 1 tablet by mouth once daily Lisinopril 2.5 mg tablet Discontinued 2.5 mg PO DAILY 30 May 12, 2021 8:47am August 09, 2021 4:03pm On Hold: medication interaction meloxicam 15 mg oral tablet (5 sources) Nonsteroidal Anti-inflammatory Drug Start: 06-19-2024 End: 08-06-2024 take 1 tablet by mouth once daily at mealtime meloxicam (MOBIC) 15 mg tablet Take 1 tablet by mouth once daily. With food. 90 tablet 1 06/19/2024 08/06/2024 Discontinued (Course of therapy completed) methylPREDNISolone 4 mg oral tablet (6 sources) Corticosteroid Start: 03-19-2024 End: 05-09-2024 take 1 tablet by mouth once Methylprednisolone (Medrol (Jamey)) 4 mg tablets,dose pack Discontinued 0 PO per package directions March 19, 2024 12:00am [place] 20th, 2024 2:58pm PO PER PKG DIR Multi-Vitamin Oral Tablet (1 source) Multi-Vitamin Or al Tablet Refills: 0 Active MULTIPLE VITAMINS-MINERALS (2 sources) take 1 tablet by mouth once daily MULTIVITAMIN ADULT TABS One tablet by mouth daily MULTIPLE VITAMINS-MINERALS [id number] Vishnu KAY Multivitamin 1 EACH tablet (6 sources) Start: 05-16-2016 End: 03-12-2019 Multivitamin 1 EACH tablet Discontinued 1 NMA PO DAILY May 16, 2016 12:00am March 12, 2019 10:40am Multivitamin preparation (18 sources) Start: 05-16-2016 End: 03-12-2019 Multivitamin Discontinued 1 EACH PO DAILY May 15, 2016 11:00pm March 12, 2019 9:40am Start: 05-16-2016 End: 03-12-2019 Multivitamin Discontinued 1 EACH PO DAILY May 16, 2016 12:00am March 12, 2019 10:40am multivitamins(DAILY MULTIVITAMIN TAB) (1 source) Start: 08-27-2009 End: 09-22-2020 multivitamins(DAILY MULTIVITAMIN TAB) Take one(1) tablet daily. 0 08/27/2009 09/22/2020 Discontinued naproxen sodium 220 mg oral capsule (20 sources) Nonsteroidal Anti-inflammator y Drug Start: 08-09-2021 End: 06-11-2024 take 1 capsule by mouth every eight hours as needed for pain Naproxen Sodium 220 mg capsule Discontinued 220 mg PO Q8H as needed for Pain September 22, 2021 2:00pm June 11, 2024 8:56am Start: 06-01-2021 End: 07-08-2021 Naproxen 500 mg tablet Disco ntinued 500 mg PO 2 to 3 times per day as needed for pain June 01, 2021 12:00am July 08, 2021 1:55pm Segmental and somatic dysfunction of thoracic region administer with food or milk Start: 05-18-2021 End: 05-31-2021 take 250-500 mg by mouth every eight hours as needed for pain Naproxen 250 MG tablet Discontinued 250 - 500 mg PO EVERY 8 HOURS NEEDED as needed for MILD PAIN 30 May 18, 2021 12:00am May 31, 2021 12:12pm nitrofurantoin, macrocrystals 100 mg oral capsule (20 sources) Nitrofuran Antibacterial Start: 07-07-2021 End: 07-08-2021 take 1 capsule by mouth twice daily at mealtime Nitrofurantoin Macrocrystal 100 mg capsule Discontinued 100 mg PO TWICE A DAY 10 5 0 July 07, 2021 12:00am July 11, 2021 12:00am July 08, 2021 1:54pm must administer with a meal/food nitrofurantoin, macrocrystals 25 mg / nitrofurantoin, monohydrate 75 mg oral capsule (20 sources) Nitrofuran Antibacterial Start: 05-01-2018 End: 03-12-2019 take 1 capsule by mouth every twelve hours Nitrofurantoin Monohyd/M-Cryst 100 MG capsule Discontinued 100 mg PO EVERY 12 HOURS May 01, 2018 12:00am March 12, 2019 10:40am omeprazole 20 mg delayed release oral capsule (20 sources) Proton Pump Inhibitor Start: 05-01-2018 End: 09-22-2020 take 1 capsule by mouth once daily Omeprazole 20 MG capsule Discontinued 20 mg PO DAILY May 01, 2018 12:00am September 22, 2020 4:31pm take 1 tablet by mouth once lianna y PRILOSEC 40 MG CPDR One tablet by mouth daily OMEPRAZOLE [id number] Vishnu KAY oxyCODONE hydrochloride 5 mg oral tablet (20 sources) Opioid Agonist Start: 07-19-2021 End: 09-22-2021 Oxycodone 5 mg tablet Discontinued 5 mg PO .prn as needed 0 July 19, 2021 12:00am September 22, 2021 2:00pm Start: 07-05-2021 End: 07-07-2021 take 1 tablet by mouth every six hours as needed for pain Oxycodone 5 mg tablet Discontinued 5 mg PO EVERY 6 HOURS as needed for pain 7 3 0 July 05, 2021 July 07, 2021 3:11pm Ventral incisional hernia without obstruction or gangrene Incisional hernia without obstruction or gangrene Start: 06-30-2021 End: 07-07-2021 take 5-10 mg by mouth every four hours as needed for pain Oxycodone 5 mg Tablet Discontinued 5 - 10 mg PO EVERY 4 HOURS NEEDED as needed for Pain Score 4-10 15 3 0 June 30, 2021 July 07, 2021 3:11pm Ventral incisional hernia without obstruction or gangrene Incisional hernia without obstruction or gangrene Start: 01-11-2021 End: 04-30-2021 take 1-10 tablets by mouth every six hours as needed for pain Oxycodone 5 MG tablet Discontinued 5 mg PO EVERY 6 HOURS NEEDED as needed for Pain 1-10 Or Fever January 11, 2021 1:00am April 30, 2021 11:20am 24 hr phentermine 7.5 mg / topiramate 46 mg extended release oral capsule (6 sources) Sympathomimetic Amine Anorectic Start: 08-10-2022 End: 09-09-2022 take 1 capsule by mouth once daily phentermine-topiramate ER (QSYMIA) 7.5-46 mg 24 Hr Capsule Indications: Obesity, Class I, BMI 30-34.9 Take 1 capsule by mouth once daily for 30 days. BMI 31.21 30 capsule 0 08/10/2022 09/09/2022 Comment on above: Take 1 capsule by mouth once daily for 3 0 days. BMI 31.21 potassium chloride 20 meq powder for oral solution (20 sources) Start: 06-30-2020 End: 04-30-2021 take 20 mEq by mouth once daily potassium chloride (KLOR-CON) 20 mEq packet Indications: Hypokalemia Take 20 mEq by mouth once daily. 30 Packet 1 06/30/2020 04/30/2021 Discontinued (Other) Start: 06-16-2020 End: 09-22-2020 take 20 mEq by mouth every other day Potassium Chloride 20 mEq packet Discontinued 20 meq PO .qod June 16, 2020 12:00am September 22, 2020 4:32pm predniSONE 10 mg oral tablet (20 sources) Start: 05-14-2024 End: 05-23-2024 predniSONE (DELTASONE) 10 mg tablet Take 4 tabs daily for 3 days, then 2 tabs daily for 3 days, then 1 tab daily for 3 days with food. 21 tablet 05/14/2024 05/23/2024 Start: 05-06-2024 End: 08-06-2024 take 2 tablets by mouth once daily Prednisone 20 mg tablet Discontinued 40 mg PO DAILY May 09, 2024 12:00am June 11, 2024 8:56am Start: 08-28-2023 take 10 mg by mouth twice lianna y Prednisone Active 10 MG PO TWICE A DAY August 28, 2023 12:00am She is on tapering dose. Start: 06-18-2023 End: 06-23-2023 take 3 tablets by mouth once daily Prednisone 20 mg tablet Discontinued 60 mg PO DAILY 15 5 0 June 18, 2023 12:00am June 22, 2023 12:00am June 23, 2023 12:04am Start: 06-18-2023 End: 06-23-2023 take 60 mg by mouth once daily Prednisone Discontinued 60 MG PO DAILY 15 5 June 17, 2023 11:00pm June 22, 2023 11:04pm Start: 11-22-2022 End: 12-04-2022 predniSONE (DELTASONE) 10 mg tablet Indications: Decreased hearing of both ears Take 4 tabs daily x 3 days, then 3 tabs x 3 days, 2 tabs x 3 days, then 1 tab x3 days with food. 30 tablet 0 11/22/2022 12/04/2022 Active Start: 10-27-2022 End: 11-01-2022 take 4 tablets by mouth once daily predniSONE (DELTASONE) 10 mg tablet Take 4 tablets by mouth once daily for 5 days. 20 tablet 0 10/27/2022 11/01/2022 Active Comment on above: Take 4 tablets by mo [facility] once daily for 5 days. Take 4 tabs daily x 3 days, then 3 tabs x 3 days, 2 tabs x 3 days, then 1 tab x3 days with food. pregabalin 100 mg oral capsule (20 sources) Start: 08-09-2021 End: 09-22-2021 Pregabalin (Lyrica) 100 mg capsule Discontinued 50 mg PO TWICE A DAY August 09, 2021 4:03pm September 22, 2021 2:00pm Start: 07-19-2021 End: 08-09-2021 take 1 capsule by mouth three times daily Pregabalin (Lyrica) 100 mg capsule Discontinued 100 mg PO THREE TIMES A DAY July 19, 2021 12:00am August 09, 2021 4:04pm Probiotic Oral Capsule (1 source) Probiotic Oral Capsule Refills: 0 Active promethazine hydrochloride 1.25 mg/ml oral solution (9 sources) Phenothiazine Start: 10-28-20 End: 01-20-20 take 25 mg by mouth every six hours as needed promethazine (PHENERGAN) 6.25 mg/5 mL syrup Take 20 mL by mouth four times daily as needed. 473 mL 1 10/28/2022 01/19/2023 Discontinued (Other) Comment on above: Take 20 mL by mouth four times daily as needed. 24 hr propranolol hydrochloride 80 mg extended release oral capsule (12 sources) beta-Adrenergic [place] Start: 10-31-20 End: 06-25-20 Propranolol 80 mg capsule,extended release 24 hr Discontinued 100 mg PO daily October 31, 2024 1:00am June 25, 2025 2:29pm Start: 09-20-2024 End: 03-25-2025 take 1 capsule by mouth once daily for headache propranolol ER (INDERAL LA) 60 mg 24 hr capsule Indications: Elevated blood pressure reading without diagnosis of hypertension , Headache disorder Take 1 capsule by mouth once daily. For BLOOD PRESSURE and headaches 90 capsule 1 09/20/2024 03/25/2025 Discontinued sertraline 50 mg oral tablet (2 sources) Serotonin Reuptake Inhibitor take 1 tablet by mouth once daily ZOLOFT 50 MG TABS One tablet by mouth daily SERTRALINE HCL [id number] Vishnu KAY vilazodone hydrochloride 20 mg oral tablet (20 sources) Start: End: take 1 tablet by mouth once daily Vilazodone 40 mg tablet Active 40 mg PO daily June 11, 2024 12:00am Start: 04-25-2023 End: 07-24-2023 take 1 tablet by mouth once daily vilazodone (VIIBRYD) 40 mg tablet Take 1 tablet by mouth once daily. 90 tablet 0 04/25/2023 07/24/2023 Active Start: 11-04-2022 End: 08-28-2023 take 30 mg by mouth once daily Vilazodone Discontinued 30 MG PO DAILY November 04, 2022 12:00am August 28, 2023 2:35pm Start: 11-04-2022 End: 08-28-2023 take 30 mg by mouth once daily Vilazodone Discontinued 30 MG PO DAILY November 04, 2022 1:00am August 28, 2023 3:35pm Start: 11-04-2022 take 30 mg by mouth once daily Vilazodone Active 30 MG PO DAILY November 04, 2022 1:00am Start: 11-04-2022 take 30 mg by mouth once daily Vilazodone Active 30 MG PO DAILY November 04, 2022 12:00am Start: 10-06-2022 End: 06-18-2023 take 1 tablet by mouth once daily vilazodone (VIIBRYD) 10 mg tablet Take 1 tablet by mouth once daily. 90 tablet 0 03/20/2023 04/25/2023 Discontinued (Course of therapy completed) Start: 07-21-2022 End: 06-11-2024 take 1 tablet by mouth once daily Vilazodone 20 mg tablet Discontinued 40 mg PO DAILY August 28, 2023 3:34pm June 11, 2024 8:54am Start: 07-21-2022 End: 08-25-2022 vilazodone (VIIBRYD) 10 mg t ablet take one tablet daily for a week then increase to 20 mg 7 tablet 0 07/21/2022 08/25/2022 Discontinued (Course of therapy completed) Start: 07-05-2021 End: 05-25-2022 vilazodone (VIIBRYD) 20 mg t ablet take one and a half tablet daily 45 tablet 0 10/27/2021 05/25/2022 Discontinued (Course of therapy completed) Start: 09-22-2020 End: 06-22-2022 take 1 tablet by mouth once daily at mealtime Vilazodone (Viibryd) 10 mg tablet Discontinued 20 mg PO DAILY March 23, 2022 11:27am June 22, 2022 9:58am must administer with a meal/food Start: 08-10-2020 End: 08-31-2020 take 1 tablet by mouth once daily vilazodone (VIIBRYD) 10 mg Take 1 tablet by mouth once daily. 30 tablet 08/10/2020 08/31/2020 Discontinued Comment on above: Take 1 tablet by jeffery th once daily. take one and a half tablet daily take one tablet lianna y for a week then increase to 20 mg vitamin D3-vitamin K2, MK4, 1,000-100 unit-mcg tab (20 sources) End: 01-19-2023 vitamin D3-vitamin K2, MK4, 1,000-100 unit-mcg tab Take by mouth. 0 01/19/2023 Discontinued (Other) vitamin D3-vitam in K2, MK4, 1,000-100 unit-mcg tab Take by mouth. 0 Active Comment on above: Take by mouth. Problems Active Problems Problem Classification Problem Date Documented Da te Episodic/Chronic Abdominal hernia (20 sources) Ventral incisional hernia; Translations: [Incisional hernia without obstruction or gangrene] 07-08-2021 Episodic Comment on above: Abdominal pain (20 sources) Right upper quadrant pain; Translations: [Right upper quadrant pain] Onset: 2 01-19-2022 Episodic Administrative/social admission (1 source) Patient encounter status; Translations: [Encounter for health counseling related to travel] Episodic Anxiety disorders (20 sources) Generalized anxiety disorder; Translations: [Generalized anxiety disorder] Onset: 6 01-19-2022 Chronic Asthma (20 sources) Exercise-induced asthma; Translations: [Exercise induced bronchospasm] Onset: 7 08-15-2017 Chronic Cardiac dysrhythmias (20 sources) Palpitations; Translations: [Palpitations] Onset: 2 01-19-2022 Episodic Complications of surgical procedures or medical care (20 sources) Wound seroma; Translations: [Postoperative wound seroma] 12-06-2022 Episodic Comment on above: Conditions associated with dizziness or vertigo (1 source) Dizziness and giddiness; Translations: [Dizziness] Onset: 5 Episodic Disorders of lipid metabolism (20 sources) Dyslipidemia; Translations: [Hyperlipidemia, unspecified] Onset: 3 Chronic Esophageal disorders (20 sources) Gastroesophageal reflux disease without esophagitis; Translations: [Gastro-esophageal reflux disease without esophagitis] Onset: 2 01-19-2022 Chronic Headache; including migraine (1 source) Headache; including migraine; Translations: [Headache, unspecified] Onset: 4 Immunizations and screening for infectious disease (20 sources) Requires diphtheria, tetanus and pertussis vaccination; Translations: [Encounter for immunization] Episodic Menopausal disorders (20 sources) Atrophic vaginitis; Translations: [Postmenopausal atrophic vaginitis] Onset: 5 09-05-2023 Chronic Comment on above: shane quinn Menstrual disorders (20 sources) Menorrhagia; Translations: [Excessive and frequent menstruation with regular cycle] 12-06-2022 Chronic Comment on above: failed ablation. anna VELÁSQUEZ. previous cs x 2 and previous right colectomy. large ventral hernia to be repaired by Dr pascual at a later date Mood disorders (20 sources) Depressive disorder; Translations: [Depression] Onset: 9 05-25-2011 Chronic Nonmalignant breast conditions (20 sources) Inflammatory disorder of breast; Translations: [Mastitis without abscess] Onset: 7 Resolved: 3 09-14-2012 Episodic Nutritional deficiencies (20 sources) Vitamin D deficiency; Translations: [Vitamin D deficiency, unspecified] Onset: 5 05-05-2015 Chronic Open wounds of extremities (8 sources) Laceration of right thumb; Translations: [Laceration without foreign body of right thumb without damage to nail, initial encounter] 01-08-2025 Episodic Other acquired deformities (6 sources) Lumbar spondylolisthesis; Translations: [Spondylolisthesis, lumbar region] 06-11-2024 Episodic Other and unspecified benign neoplasm (1 source) Benign adenomatous neoplasm; 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] Episodic Other and unspecified benign neoplasm (20 sources) History of polyp of colon; Translations: [Personal history of colonic polyps] 12-06-2022 Episodic Other and unspecified benign neoplasm (15 sources) Personal history of colonic polyps; Translations: [Personal history of colonic polyps] 12-06-2022 Episodic Other circulatory disease (2 sources) Elevated blood-pressure reading without diagnosis of hypertension; Translations: [Elevated blood-pressure reading, without diagnosis of hypertension] 09-20-2024 Episodic Other ear and sense organ disorders (20 sources) Decreased hearing ; Translations: [Unspecified hearing [...] [Diarrhea, unspecified] Onset: 2 01-19-2022 Episodic Other gastrointestinal disorders (15 sources) Diarrhea, unspecified; Translations: [Diarrhea] 12-06-2022 Episodic Other infections; including parasitic (20 sources) Personal history of other infectious and parasitic diseases; Translations: [History of 2019 novel coronavirus disease (COVID-19)] Onset: 2 01-19-2022 Episodic Other infections; including parasitic (1 source) Disorder due to infection; Translations: [Unspecified infectious disease] Episodic Other inflammatory condition of skin (20 sources) Psoriasis; Translations: [Other psoriasis] Onset: 2 04-11-2012 Chronic Other inflammatory condition of skin (1 source) Pruritus, unspecified; Translations: [Itching] Onset: Episodic Other lower respiratory disease (1 source) H/O: respiratory disease; Translations: [History of sleep apnea] Episodic Other lower respiratory disease (20 sources) Dyspnea; Translations: [Dyspnea, unspecified] 12-06-2022 Episodic Other nutritional; endocrine; and metabolic disorders (20 sources) Obese class I; Translations: [Obesity, unspecified] Onset: 2 01-19-2022 Chronic Other nutritional; endocrine; and metabolic disorders (2 sources) Obesity; Translations: [Class 1 obesity with body mass index (BMI) of 30.0 to 30.9 in adult, unspecified obesity type, unspecified whether serious comorbidity present] 03-25-2025 Chronic Other nutritional; endocrine; and metabolic disorders (1 source) Body mass index (BMI) 30.0-30.9, adult; Translations: [Class 1 obesity with body mass index (BMI) of 30.0 to 30.9 in adult, unspecified obesity type, unspecified whether serious comorbidity present] Onset: 5 Chronic Other skin disorders (11 sources) Sebaceous cyst of skin; Translations: [Sebaceous cyst] 09-22-2023 Episodic Other skin disorders (4 sources) Sebaceous cyst; Translations: [Sebaceous cyst] 09-22-2023 Episodic Other skin disorders (1 source) Abnormal foot color; Translations: [Other skin changes] 09-20-2024 Episodic Other upper respiratory disease (20 sources) Allergic rhinitis; Translations: [Allergic rhinitis, unspecified] 08-15-2017 Chronic Other upper respiratory disease (1 source) Chronic rhinitis; Translations: [Chronic rhinitis] Chronic Other upper respiratory disease (1 source) Other specified disorders of nose and nasal sinuses; Translations: [Nasal sore] Onset: 5 Episodic Other upper respiratory infections (20 sources) Maxillary sinusitis; Translations: [Chronic maxillary sinusitis] 09-05-2023 Chronic Other upper respiratory infections (2 sources) Viral upper respiratory tract infection; Translations: [Acute upper respiratory infection, unspecified] Onset: 5 Episodic Otitis media and related conditions (1 source) Otitis media; Translations: [Unspecified nonsuppurative otitis media, bilateral] Episodic Poisoning by nonmedicinal substances (1 source) Toxic effect of venom; Translations: [Toxic effect of contact with unspecified venomous animal, accidental (unintentional), initial encounter] Episodic Regional enteritis and ulcerative colitis (11 sources) Crohn's disease; Translations: [Crohn's disease, unspecified, without complications] Onset: 5 02-16-2023 Chronic Residual codes; unclassified (3 sources) Obstructive sleep apnea syndrome; Translations: [Obstructive sleep apnea (adult) (pediatric)] Onset: 5 05-06-2025 Chronic Residual codes; unclassified (20 sources) History of colectomy; Translations: [Acquired absence of other specified parts of digestive tract] Onset: 2 01-19-2022 Episodic Comment on above: right side by dr kirsty manrique Residual codes; unclassified (20 sources) History of vaginal hysterectomy; Translations: [Acquired absence of both cervix and uterus] 12-06-2022 Episodic Comment on above: BRIDGER BS left ooph orectomy AUB Pelvic pain Residual codes; unclassified (20 sources) History of partial resection of colon; Translations: [Acquired absence of other specified parts of digestive tract] 12-06-2022 Episodic Comment on above: 2020 Dr. Gary Residual codes; unclassified (9 sources) Acquired absence of other specified parts of digestive tract; Translations: [Other postprocedural status] 12-06-2022 Episodic Residual codes; unclassified (13 sources) Flushing; Translations: [Flushing] 09-05-2023 Episodic Residual codes; unclassified (4 sources) Flushing; Translations: [Flushing] 09-05-2023 Episodic Residual codes; unclassified (2 sources) Reduced libido; Translations: [Decreased libido] 09-20-2024 Episodic Spondylosis; intervertebral disc disorders; other back problems (20 sources) Degeneration of lumbar intervertebral disc; Translations: [Other intervertebral disc degeneration, lumbar region] Onset: 4 06-03-2024 Chronic Unclassified (1 source) Class 1 obesity with body mass index (BMI) of 30.0 to 30.9 in adult, unspecified obesity type, unspecified whether serious comorbidity present; Translations: [Class 1 obesity with body mass index (BMI) of 30.0 to 30.9 in adult, unspecified obesity type, unspecified whether serious comorbidity present] Onset: 5 Urinary tract infections (20 sources) Cystitis; Translations: [Cystitis, unspecified without hematuria] 10-21-2022 Episodic Viral infection (20 sources) Other specified viral infection; Translations: [Disease caused by 2019-nCoV] Onset: 0 04-06-2020 Episodic Past or Other Problems Problem Classification Problem Date Documented Date Episodic/Chronic Allergic reactions (20 sources) Solar degeneration; Translations: [Other skin changes due to chronic exposure to nonionizing radiation] Onset: 04-11-2012 Resolved: 07-28-2015 07-28-2015 Episodic Blindness and vision defects (20 sources) Severe myopia; Translations: [Myopia, bilateral] Onset: 11-06-2017 11-06-2017 Episodic Calculus of urinary tract (20 sources) Calculus of kidney; Translations: [Kidney stone] Onset: 11-06-2009 05-25-2011 Episodic Genitourinary symptoms and ill-defined conditions (20 sources) Alireza hematuria; Translations: [Gross hematuria] Onset: 01-11-2023 Episodic Headache; including migraine (2 sources) Headache disorder; Translations: [Headache disorder] Onset: 09-20-2024 09-20-2024 Episodic Malaise and fatigue (20 sources) Asthenia; Translations: [Weakness] Onset: 06-22-2020 06-22-2020 Episodic Neoplasms of unspecified nature or uncertain behavior (20 sources) Neoplasm of colon; Translations: [Neoplasm of uncertain behavior of skin] Onset: 09-29-2009 Resolved: 07-28-2015 07-28-2015 Episodic Nonmalignant breast conditions (20 sources) Fibrocystic disease of breast; Translations: [Fibrosclerosis of breast] Onset: 08-24-2017 Resolved: 07-28-2015 08-24-2017 Chronic Other acquired deformities (20 sources) Spondylolysis; Translations: [Spondylolysis, lumbar region] Onset: 06-19-2024 05-14-2024 Episodic Other and unspecified benign neoplasm (20 sources) Fibroadenoma of breast; Translations: [Benign neoplasm of unspecified breast] Onset: 10-08-2012 10-08-2012 Episodic Other and unspecified benign neoplasm (20 sources) Benign neoplasm of skin of trunk; Translations: [Other benign neoplasm of skin of trunk] Onset: 02-19-2008 Resolved: 12-06-2013 12-06-2013 Episodic Other and unspecified benign neoplasm (20 sources) Benign tumor of head and neck; Translations: [Other benign neoplasm of skin of scalp and neck] Onset: 02-19-2008 Resolved: 12-06-2013 12-06-2013 Episodic Other and unspecified benign neoplasm (20 sources) Benign neoplasm of skin of face; Translations: [Other benign neoplasm of skin of unspecified part of face] Onset: 02-19-2008 Resolved: 12-06-2013 12-06-2013 Episodic Other and unspecified benign neoplasm (20 sources) Benign neoplasm of skin of upper limb; Translations: [Other benign neoplasm of skin of unspecified upper limb, including shoulder] Onset: 02-19-2008 Resolved: 12-06-2013 12-06-2013 Episodic Other and unspecified benign neoplasm (20 sources) Dysplastic nevus of skin; Translations: [Melanocytic nevi of unspecified lower limb, including hip] Onset: 04-11-2012 Resolved: 07-28-2015 07-28-2015 Episodic Other and unspecified benign neoplasm (20 sources) Melanocytic nevus of lower limb; Translations: [Melanocytic nevi of unspecified lower limb, including hip] Onset: 04-11-2012 Resolved: 07-28-2015 07-28-2015 Episodic Other and unspecified benign neoplasm (20 sources) Melanocytic nevi of unspecified part of face; Translations: [Benign neoplasm of skin of other and unspecified parts of face] Onset: 04-11-2012 Resolved: 07-28-2015 07-28-2015 Episodic Other and unspecified benign neoplasm (20 sources) Melanocytic nevus of upper limb; Translations: [Melanocytic nevi of unspecified upper limb, including shoulder] Onset: 04-11-2012 Resolved: 07-28-2015 07-28-2015 Episodic Other and unspecified benign neoplasm (20 sources) Dysplastic nevus of trunk; Translations: [Melanocytic nevi of trunk] Onset: 12-06-2013 Resolved: 07-28-2015 07-28-2015 Episodic Other and unspecified benign neoplasm (20 sources) Melanocytic nevus of trunk; Translations: [Melanocytic nevi of trunk] Onset: 12-06-2013 Resolved: 07-28-2015 07-28-2015 Episodic Other and unspecified benign neoplasm (20 sources) Melanocytic nevus of skin ; Translations: [Melanocytic nevi of scalp and neck] Onset: 12-06-2013 Resolved: 07-28-2015 07-28-2015 Episodic Other and unspecified benign neoplasm (16 sources) Melanocytic nevus of skin of breast; Translations: [Melanocytic nevi of trunk] Onset: 12-06-2013 Resolved: 07-28-2015 07-28-2015 Episodic Other circulatory disease (2 sources) Elevated blood-pressure reading, without diagnosis of hypertension; Translations: [Elevated blood-pressure reading, without diagnosis of hypertension] Onset: 09-20-2024 Episodic Other connective tissue disease (20 sources) Shoulder girdle weakness; Translations: [Other symptoms and signs involving the musculoskeletal system] Onset: 06-22-2020 06-22-2020 Episodic Other eye disorders (20 sources) Chalazion of lower eyelid of left eye; Translations: [Chalazion left lower eyelid] Onset: 01-14-2013 01-14-2013 Episodic Other female genital disorders (20 sources) Abnormal uterine bleeding; Translations: [Abnormal uterine and vaginal bleeding, unspecified] Onset: 01-31-2013 Resolved: 05-30-2014 05-30-2014 Chronic Other nervous system disorders (20 sources) Paresthesia; Translations: [Paresthesia of skin] Onset: 06-19-2024 05-14-2024 Episodic Other and delivery including normal (20 sources) Normal ; Translations: [Encounter for supervision of other normal , unspecified trimester] Onset: 08-24-2006 Resolved: 07-25-2008 07-25-2008 Episodic Other screening for suspected conditions (not mental disorders or infectious disease) (20 sources) Thyroid function tests abnormal; Translations: [Abnormal results of thyroid function studies] Onset: 09-14-2012 Resolved: 05-30-2014 01-19-2022 Episodic Other skin disorders (20 sources) Scar conditions and fibrosis of skin; Translations: [Scar conditions and fibrosis of skin] Onset: 02-19-2008 Resolved: 12-06-2013 12-06-2013 Episodic Other skin disorders (20 sources) Disorder of skin; Translations: [Hypertrophic disorder of the skin, unspecified] Onset: 02-19-2008 Resolved: 12-06-2013 12-06-2013 Episodic Other skin disorders (20 sources) Disorder of skin appendage; Translations: [Other hair color and hair shaft abnormalities] Onset: 09-10-2008 Resolved: 12-06-2013 12-06-2013 Episodic Other skin disorders (20 sources) Acne; Translations: [Other acne] Onset: 09-29-2009 Resolved: 07-28-2015 07-28-2015 Episodic Other skin disorders (20 sources) Hidradenitis suppurativa; Translations: [Hidradenitis suppurativa] Onset: 09-29-2009 Resolved: 07-28-2015 07-28-2015 Episodic Other skin disorders (20 sources) Keloid scar; Translations: [Hypertrophic scar] Onset: 09-29-2009 Resolved: 07-28-2015 07-28-2015 Episodic Other skin disorders (20 sources) Hypertrophic scar; Translations: [Hypertrophic scar] Onset: 09-29-2009 Resolved: 07-28-2015 07-28-2015 Episodic Other skin disorders (20 sources) Callosity; Translations: [Corns and callosities] Onset: 04-11-2012 Resolved: 07-28-2015 07-28-2015 Episodic Other skin disorders (20 sources) Hyperpigmentation of skin; Translations: [Disorder of pigmentation, unspecified] Onset: 04-11-2012 Resolved: 07-28-2015 07-28-2015 Episodic Other skin disorders (20 sources) Asteatosis cutis; Translations: [Xerosis cutis] Onset: 04-11-2012 Resolved: 07-28-2015 07-28-2015 Episodic Other skin disorders (20 sources) Solar lentiginosis; Translations: [Other melanin hyperpigmentation] Onset: 04-11-2012 Resolved: 07-28-2015 07-28-2015 Episodic Other skin disorders (20 sources) Seborrheic keratosis; Translations: [Other seborrheic keratosis] Onset: 04-11-2012 Resolved: 07-28-2015 07-28-2015 Episodic Other skin disorders (20 sources) Solar lentigo; Translations: [Other melanin hyperpigmentation] Onset: 12-06-2013 Resolved: 07-28-2015 07-28-2015 Episodic Other skin disorders (20 sources) Scar; Translations: [Scar conditions and fibrosis of skin] Onset: 12-06-2013 Resolved: 07-28-2015 07-28-2015 Episodic Other skin disorders (20 sources) Skin tag; Translations: [Other hypertrophic disorders of the skin] Onset: 12-06-2013 Resolved: 07-28-2015 07-28-2015 Episodic Other skin disorders (1 source) Other skin changes; Translations: [Abnormal foot color] Onset: 09-20-2024 Episodic Ovarian cyst (20 sources) Complex ovarian cyst; Translations: [Other ovarian cyst, unspecified side] Onset: 02-14-2013 Resolved: 05-28-2013 05-28-2013 Episodic Residual codes; unclassified (20 sources) History of photorefractive keratectomy; Translations: [Other specified postprocedural states] Onset: 01-06-2018 01-06-2018 Episodic Residual codes; unclassified (20 sources) Human leukocyte antigen B27 test positive; Translations: [Genetic susceptibility to other disease] Onset: 01-11-2023 Episodic Residual codes; unclassified (2 sources) Decreased libido; Translations: [Decreased libido] Onset: 09-20-2024 Episodic Respiratory failure; insufficiency; arrest (adult) (20 sources) Acute hypoxemic respiratory failure; Translations: [Acute respiratory failure with hypoxia] Onset: 04-06-2020 04-06-2020 Episodic Skin and subcutaneous tissue infections (20 sources) Pyoderma; Translations: [Pyoderma] Onset: 03-19-2009 Resolved: 12-06-2013 12-06-2013 Episodic Spondylosis; intervertebral disc disorders; other back problems (20 sources) Neck pain; Translations: [Cervicalgia] Onset: 01-14-2013 01-14-2013 Episodic Sprains and strains (2 sources) Sprain of unspecified ligament of right ankle, initial encounter; Translations: [Sprain of unspecified ligament of right ankle, initial encounter] Onset: 09-27-2016 09-27-2016 Episodic Unclassified (1 source) History of clinical finding in subject; Translations: [History of tachycardia] Unclassified (1 source) Patient encounter status 03-27-2025 NEGATED: Highlighted row has not occurred!Residual codes; unclassified (2 sources) Disease Episodic Results Test Name Value Interpretation Reference Range Facility Urgent Care Visit Reporton 0 07-06-2025 Urgent Care Visit Report [facility] [address], [address] [place] [id number] OFFICE VISIT Date of Service: 07/06/25 MR#: [id number] Acct: [id number] Name: BRICE GOMEZ Rep #: [id number] : 1980 Provider: VITO ross Age/Sex: 44/F Location: [facility] Status: Signed Intake Vital Signs 05/16/25 15:54 07/06/25 10:10 Height 5 ft 5 ft Weight: 148 lb 6 oz 139 lb BMI 29.0 27.1 BP 125/88 H 132/86 H Blood Pressure Location Lt brachial Position Sitting Pulse 94 Pulse Source Monitor Temp 98.5 F Temp Source Oral Pulse Oximetry (%) 98 Oxygen Delivery Method room air Intake Visit Reasons: CONCERN FOR SINUS INFECTION Chief Complaint: Sinus Congestion Accompanied by: Self Allergies cephalexin monohydrate (From Keflex) Allergy (Verified 07/06/25 10:09) Rash clarithromycin (From Biaxin) Allergy (Verified 07/06/25 10:09) Rash metronidazole (From Flagyl) Allergy (Verified 07/06/25 10:09) Rash minocycline Allergy (Verified 07/06/25 10:09) Rash Penicillins Allergy (Verified 07/06/25 10:09) VISHNU MOSQUEDA'S citalopram hydrobromide (From Celexa) Adverse Reaction (Verified 07/06/25 10:09) Nausea/Vom/Diarrhea Medications ???Medication ???Instructions ???Recorded ???Confirmed ???Type multivitamin with minerals 1 ea PO DAILY 09/02/19 07/06/25 Hi story cetirizine 10 mg capsule (Zyrtec) 10 mg PO DAILY 09/30/20 07/06/25 History albuterol sulfate 90 mcg/actuation 1 inh inhalation Q6H PRN sob 07/06/25 History aerosol inhaler acetaminophen 325 mg capsule 325 mg PO ONCE PRN Pain 07/13/21 0 07/06/25 History (Tylenol) ibuprofen 400 mg tablet 400 mg PO Q8H PRN Pain 08/09/21 History esomeprazole magnesium 40 mg 40 mg PO DAILY 09/22/21 07/06/25 H istory capsule,delayed release (Nexium) cholecalciferol (vitamin D3) 25 25 mcg PO DAILY 03/23/22 07/06/25 History mcg (1,000 unit) capsule mometasone 50 mcg/actuation nasal 2 spray intranasal DAILY PRN 08/0 02/0807/06/25 History spray (Nasonex) ALLERGIES clonazepam 0.5 mg tablet 0.5 mg PO PRN PRN Anxiety 11/04/22 07/06/25 History bupropion HCl 300 mg 24 hr tablet, 400 mg PO DAILY 12/28/23 5 History extended release cyclobenzaprine 5 mg tablet 5 mg PO QHS 06/11/24 07/06/25 Hist ory vilazodone 40 mg tablet 40 mg PO QDAY 06/11/24 07/06/25 Hi story celecoxib 100 mg capsule (Celebrex) 100 mg PO BID 10/31/24 07/06/25 History estradiol 0.075 mg/24 hr 1 patch transdermal 2XW #8 ea 11/2107/06/25 Rx semiweekly transdermal patch (Vivelle-Dot) azathioprine 50 mg tablet 100 mg (2 x 50 mg) PO DAILY #60 07/06/25 Rx TABLETS estradiol 10 mcg vaginal tablet 10 mcg vaginal DAILY 2 weeks #20 0 05/16/25 07/06/25 Rx (Yuvafem) tabs tirzepatide (weight loss) 2.5 mg subcut Weight loss 05/16/25 History mg/0.5 mL subcutaneous pen injector (Zepbound) metoprolol succinate 25 mg 12.5 mg PO QDAY 06/25/25 07/06/25 History tablet,extended release 24 hr azithromycin 250 mg tablet See Rx Instructions PO .COMPLEX #6 07/06/25 07/06/25 Rx (Zithromax Z-Jamey) tabs benzonatate 200 mg capsule 200 mg PO TID PRN cough #20 caps 0 07/06/25 07/06/25 Rx Nurse's Note: Sinus congestion, sinus pressure, cough. Taking medrol dosepak and no relief. [facility] Medical History Laceration of right thumb History of Crohn's disease Difficulty swallowing Depression Anxiety Easy bruising Gastric reflux Low serum IgE Normal Holter exam Postoperative wound seroma Abdominal pain Ventral incisional hernia without obstruction or gangrene Alcohol use History of renal disease Anemia Back pain Migraine headache Injury of head and neck History of hiatal hernia History of IBS Non-smoker CPAP (continuous positive airway pressure) dependence Chronic cough Shortness of breath on exertion Hx of echocardiogram History of stress test Cardiology follow-up encounter History of irregular heartbeat Ventral incisional hernia without obstruction or gangrene Diarrhea Constipation Sleep apnea History of severe acute respiratory syndrome coronavirus 2 (SARS-CoV-2) disease Depression with anxiety neck and back pain Knee pain Surgical History History of esophagogastroduodenosco py (EGD) History of placement of ear tubes S/P right hemicolectomy Hx of colonoscopy History of ventral hernia repair History of LAVH S/P laparoscopic assisted vaginal hysterectomy (LAVH) Hx of colonoscopy History of colectomy H/O prior ablation treatment History of dilatation and curettage History of eye surgery History of wisdom tooth extraction History of breast biopsy history cysto (more content not included)... Normal [facility] Gastroenterology Visit Repor ton 06-25-2025 Gastroenterology Visit Report [facility] [address] [place] [address] OFFICE VISIT Date of Service: 06/25/25 MR#: [id number] Acct: [id number] Name: BRICE GOMEZ Rep #: [id number] : 1980 Provider: Pedrito Brock DO Age/Sex: 44/F Location: [facility] Status: Signed Intake Vital Signs 12/16/24 11:12 05/16/25 15:54 Height 5 ft 5 ft Intake Visit Reasons: 4 M FU Allergies cephalexin monohydrate (From Keflex) Allergy (Verified 05/16/25 15:55) Rash clarithromycin (From Biaxin) Allergy (Verified 05/16/25 15:55) Rash metronidazole (From Flagyl) Allergy (Verified 05/16/25 15:55) Rash minocycline Allergy (Verified 05/16/25 15:55) Rash Penicillins Allergy (Verified 05/16/25 15:55) VISHNU MOSQUEDA'S citalopram hydrobromide (From Celexa) Adverse Reaction (Verified 05/16/25 15:55) Nausea/Vom/Diarrhea Medications ???Medication ???Instructions ???Recorded ???Confirmed ???Type multivitamin with minerals 1 ea PO DAILY 09/02/19 06/25/25 Hi story cetirizine 10 mg capsule (Zyrtec) 10 mg PO DAILY 09/30/20 06/25/25 History albuterol sulfate 90 mcg/actuation 1 inh inhalation Q6H PRN sob 06/25/25 History aerosol inhaler acetaminophen 325 mg capsule 325 mg PO ONCE PRN Pain 07/13/21 0 06/25/25 History (Tylenol) ibuprofen 400 mg tablet 400 mg PO Q8H PRN Pain 08/09/21 History esomeprazole magnesium 40 mg 40 mg PO DAILY 09/22/21 06/25/25 H istory capsule,delayed release (Nexium) cholecalciferol (vitamin D3) 25 25 mcg PO DAILY 03/23/22 06/25/25 History mcg (1,000 unit) capsule mometasone 50 mcg/actuation nasal 2 spray intranasal DAILY PRN 08/02/0806/25/25 History spray (Nasonex) ALLERGIES clonazepam 0.5 mg tablet 0.5 mg PO PRN PRN Anxiety 11/04/22 06/25/25 History bupropion HCl 300 mg 24 hr tablet, 400 mg PO DAILY 12/28/23 5 History extended release cyclobenzaprine 5 mg tablet 5 mg PO QHS 06/11/24 06/25/25 Hist ory vilazodone 40 mg tablet 40 mg PO QDAY 06/11/24 06/25/25 Hi story esketamine 84 mg (28 mg x 3) nasal See Rx Instructions intranasal 1 06/25/25 History spray .COMPLEX celecoxib 100 mg capsule (Celebrex) 100 mg PO BID 10/31/24 06/25/25 History estradiol 0.075 mg/24 hr 1 patch transdermal 2XW #8 ea 11/2106/25/25 Rx semiweekly transdermal patch (Vivelle-Dot) azathioprine 50 mg tablet 100 mg (2 x 50 mg) PO DAILY #60 06/25/25 Rx TABLETS estradiol 10 mcg vaginal tablet 10 mcg vaginal DAILY 2 weeks #20 0 05/16/25 06/25/25 Rx (Yuvafem) tabs tirzepatide (weight loss) 2.5 mg subcut Weight loss 05/16/2505/14 History mg/0.5 mL subcutaneous pen injector (Zepbound) metoprolol succinate 25 mg 12.5 mg PO QDAY 06/25/25 06/25/25 History tablet,extended release 24 hr PFSH Medical History Laceration of right thumb History of Crohn's disease Difficulty swallowing Depression Anxiety Easy bruising Gastric reflux Low serum IgE Normal Holter exam Postoperative wound seroma Abdominal pain Ventral incisional hernia without obstruction or gangrene Alcohol use History of renal disease Anemia Back pain Migraine headache Injury of head and neck History of hiatal hernia History of IBS Non-smoker CPAP (continuous positive airway pressure) dependence Chronic cough Shortness of breath on exertion Hx of echocardiogram History of stress test Cardiology follow-up encounter History of irregular heartbeat Ventral incisional hernia without obstruction or gangrene Diarrhea Constipation Sleep apnea History of severe acute respiratory syndrome coronavirus 2 (SARS-CoV-2) disease Depression with anxiety neck and back pain Knee pain Surgical History History of esophagogastroduodenosco py (EGD) History of placement of ear tubes S/P right hemicolectomy Hx of colonoscopy History of ventral hernia repair History of LAVH S/P laparoscopic assisted vaginal hysterectomy (LAVH) Hx of colonoscopy History of colectomy H/O prior ablation treatment History of dilatation and curettage History of eye surgery History of wisdom tooth extraction History of breast biopsy history cysto with stent insertion Hx of tubal ligation History of Family History Grandmother Atrial fibrillation Hypertension Mother Hypertension Mitral valve prolapse Grandfather Cancer Esophageal cancer Social History adopted: No household members: spouse and children housing: house number of children: 2 current occupational status: employed 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 Normal [facility] Small Engine Technician Office Visit Reporton 05-16-2025 Small Engine Technician Office Visit Report [facility] [address], [address] [place] [address] OFFICE VISIT Date of Service: 05/16/25 MR#: [id number] Acct: [id number] Name: BRICE GOMEZ Rep #: [id number] : 1980 Provider: Dr. 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 Required: No Is patient in pain?: No Allergies cephalexin monohydrate (From Keflex) Allergy (Verified 05/16/25 15:55) Rash clarithromycin (From Biaxin) Allergy (Verified 05/16/25 15:55) Rash metronidazole (From Flagyl) Allergy (Verified 05/16/25 15:55) Rash minocycline Allergy (Verified 05/16/25 15:55) Rash Penicillins Allergy (Verified 05/16/25 15:55) VISHNU MOSQUEDA'S citalopram hydrobromide (From Celexa) Adverse Reaction (Verified 05/16/25 15:55) Nausea/Vom/Diarrhea Medications ???Medication ???Instructions ???Recorded ???Confirmed ???Type multivitamin with minerals 1 ea PO DAILY 09/02/19 05/16/25 Hi story cetirizine 10 mg capsule (Zyrtec) 10 mg PO DAILY 09/30/20 05/16/25 History albuterol sulfate 90 mcg/actuation 1 inh inhalation Q6H PRN sob 05/16/25 History aerosol inhaler acetaminophen 325 mg capsule 325 mg PO ONCE PRN Pain 07/13/21 0 05/16/25 History (Tylenol) ibuprofen 400 mg tablet 400 mg PO Q8H PRN Pain 08/09/21 History esomeprazole magnesium 40 mg 40 mg PO DAILY 09/22/21 05/16/25 H istory capsule,delayed release (Nexium) cholecalciferol (vitamin D3) 25 25 mcg PO DAILY 03/23/22 05/16/25 History mcg (1,000 unit) capsule mometasone 50 mcg/actuation nasal 2 spray intranasal DAILY PRN 08/0 02/0805/16/25 History spray (Nasonex) ALLERGIES clonazepam 0.5 mg tablet 0.5 mg PO PRN PRN Anxiety 11/04/22 05/16/25 History bupropion HCl 300 mg 24 hr tablet, 400 mg PO DAILY 12/28/23 5 History extended release cyclobenzaprine 5 mg tablet 5 mg PO QHS 06/11/24 05/16/25 Hist ory vilazodone 40 mg tablet 40 mg PO QDAY 06/11/24 05/16/25 Hi story esketamine 84 mg (28 mg x 3) nasal See Rx Instructions intranasal 1 05/16/25 History spray .COMPLEX celecoxib 100 mg capsule (Celebrex) 100 mg PO BID 10/31/24 05/16/25 History propranolol 80 mg capsule,24 100 mg PO QDAY 10/31/24 05/16/25 H istory hr,extended release estradiol 0.075 mg/24 hr 1 patch transdermal 2XW #8 ea 11/2105/16/25 Rx semiweekly transdermal patch (Vivelle-Dot) azathioprine 50 mg tablet 100 mg (2 x 50 mg) PO DAILY #60 05/16/25 Rx TABLETS estradiol 10 mcg vaginal tablet 10 mcg vaginal DAILY 2 weeks #20 0 05/16/25 05/16/25 Rx (Yuvafem) tabs tirzepatide (weight loss) 2.5 mg subcut Weight loss 05/16/25 History mg/0.5 mL subcutaneous pen injector (Zepbound) Is last menstrual period known: No Post menopausal: Yes Patient : No : No Control Method: [facility] Medical History Laceration of right thumb History of Crohn's disease Difficulty swallowing Depression Anxiety Easy bruising Gastric reflux Low serum IgE Normal Holter exam Postoperative wound seroma Abdominal pain Ventral incisional hernia without obstruction or gangrene Alcohol use History of renal disease Anemia Back pain Migraine headache Injury of head and neck History of hiatal hernia History of IBS Non-smoker CPAP (continuous positive airway pressure) dependence Chronic cough Shortness of breath on exertion Hx of echocardiogram History of stress test Cardiology follow-up encounter History of irregular heartbeat Ventral incisional hernia without obstruction or gangrene Diarrhea Constipation Sleep apnea History of severe acute respiratory syndrome coronavirus 2 (SARS-CoV-2) disease Depression with anxiety neck and back pain Knee pain Surgical History History of esophagogastroduodenosco py (EGD) History of placement of ear tubes S/P right hemicolectomy Hx of colonoscopy History of ventral hernia repair History of LAVH S/P laparoscopic assisted vaginal hysterectomy (LAVH) Hx of colonoscopy History of colectomy H/O prior ablation treatment History of dilatation and curettage History of eye surgery History of wisdom tooth extraction History of breast biopsy history cysto with stent insertion Hx of tubal ligation History of Family History Grandmother Atrial fibrillation Hypertension Mother Hypertension Mitral valve prolapse Grandfather Can (more content not included)... Normal [facility] Breast imaging reportOrdered By: Nabil Talley on 05-06-2025 Study report [facility] Imaging Services [address] [place] [address] SCRN MAMM (CAD)W/ANDREAS BILAT MR#: [id number] Acct: [id number] Name: BRICE GOMEZ Rep #: [id number] : 1980 F 44 From: Josh Talley MD PCP: Dr. To Longoria, Status: RE G CLI Study:SCRN MAMM (CAD)W/ANDREAS BILAT Date of Exa m: 05/06/25 Exam# [id number] Ordering Dr: To Longoria DO EXAM: SCRN MAMM (CAD)W/ANDREAS BILAT DATE: 05/06/2025 CLINICAL HISTORY: F, Age 44 y/o , SCREENING History of bilateral cysts. BREAST CANCER RISK ASSESSMENT: Not assessed. TECHNIQUE: Bilateral screening digital breast tomosynthesis with 2D and 3D images. Computeraided detection. COMPARISON: Prior exam(s) dated April 25, 2024.. FINDINGS: TISSUE DENSITY: The breast tissue is composed of scattered areas of fibroglandular density. Bilateral Breast Mammographic Findings: No significant masses, calcifications or other abnormalities are identified. A tissue clip marker is seen in the retroareolar region of the left breast. Stable fat containing bilateral axillary lymph nodes. No suspicious masses, areas of developing architectural distortion, or suspicious calcifications. There has been no significant interval change. BI/SCRN MAMM (CAD)W/ANDREAS BILAT IMPRESSION: Stable examination. OVERALL FINAL ASSESSMENT BI-RADS 2: BENIGN RECOMMEND ANNUAL MAMMOGRAPHIC SCREENING. RECOMMENDATION: Routine annual follow-up in 1 Year A letter with findings and recommendations will be mailed to the patient. Reading Location: [facility] CC: Dr. To Longoria DO ~ Knee Bolter: Signed [facility] Mallika 05-06-2025 CNPN Telephone (FAMPWS) -------- BRICE GOMEZ ([id number]) 1980 F Date Time Provider Department 05/06/25 [facility] During your visit today, we recorded the following information about you: Adeline Conrad LPN 05/06/2025 9:17 AM Signed Pt calls to report she noticed on her problem list that sleep apnea is not listed. Pt reports she had PSG done in [phone]. Pt is requesting this to be added to problem list. EL Ryder Jordan L, DO 05/06/2025 5:13 PM Signed FLORENTINO added To Longoria DO Allergies As of Date: 05/06/2025 Noted Allergy Reaction CLINDAMYCIN 09/27/2016 16 - Unknown BEE STING 05/02/2011 4 - Hives Comments: Facial edema BIAXIN (CLARITHROMYCIN) 01/08/2014 2 - Rash Comments: Patient developed a pruritic rash 7 days into course of biaxin and flagyl for H pylori infection. No mucous membrane involvement, exfoliation, fevers or joint pain/swelling. CELEXA (CITALOPRAM) 02/14/2006 8 - GI Upset ENTEX (PHENYLEPHRINE-GUAIFENES IN) 02/14/2006 5 - Intolerance Comments: Tachycardia FLAGYL (METRONIDAZOLE HCL) 01/08/2014 2 - Rash Comments: Patient developed a pruritic rash 7 days into course of biaxin and flagyl for H pylori infection. No mucous membrane involvement, exfoliation, fevers or joint pain/swelling. KEFLEX (CEPHALEXIN) 05/11/2009 2 - Rash MINOCYCLINE 02/14/2006 4 - Hives PENICILLINS 03/14/2006 2 - Rash 9 - Itching Comments: Vishnu Darrick type reaction. Date Reviewed: 03/25/2025 Reviewed by: Bree Oliver LPN - Fully Assessed Reason for Visit: diagnosis updated [Other] Primary Visit Diagnosis:FLORENTINO (obstructive sleep apnea) [G47.33] Prescriptions as of 05/06/2025 - tirzepatide, weight loss (ZEPBOUND) 2.5 mg/0.5 mL solution Inject 0.5 mL subcutaneously one time a week. BMI 30 - estrogen - VERIFY PATCH 0.075 each. 2 weekly Nathaly - metoprolol succinate ER (TOPROL XL) 25 mg 24 hr tablet Take 1 tablet by mouth once daily. - vilazodone (VIIBRYD) 40 mg tablet Take 1 tablet by mouth once daily. - celecoxib (CELEBREX) 100 mg capsule Take 100 mg by mouth two times a day. - esomeprazole (NEXIUM) 40 mg capsule Take 1 capsule by mouth two times a day before meals. 1/2 hr before meal. - buPROPion XL (WELLBUTRIN XL) 300 mg 24 hr tablet Take 1 tablet by mouth once daily. - cyclobenzaprine (FLEXERIL) 10 mg tablet Take 1 tablet by mouth three times a day as needed for muscle spasm. - clonazePAM (KLONOPIN) 0.5 mg tablet Take 1 tablet by mouth at bedtime as needed for up to 30 days. - albuterol HFA (PROAIR HFA) 90 mcg/actuation inhaler Inhale 2 Puffs as instructed every 4 hours as needed. - scopolamine (TRANSDERM-SCOP) patch 1.5 mg/72 hr (delivers 1 mg over 3 days) Apply 1 Patch as directed every 72 hours. Apply patch to skin behind ear 4hrs prior to travel. - azaTHIOprine (IMURAN) 100 mg tablet Take 100 mg by mouth once daily. - Cholecalciferol, Vitamin D3, 25 mcg (1,000 unit) cap Take 25 mcg by mouth once daily. - mometasone (NASONEX) 50 mcg/actuation nasal spray Use 2 Sprays in the nose twice daily. - EPINEPHrine (EPIPEN) 0.3 mg/0.3 mL auto-injector Inject 0.3 mL subcutaneously as needed. Then seek medical attention immediately. - MULTI-VITAMIN ORAL Take by mouth. - cetirizine (ZYRTEC) 10 mg tablet Take 10 mg by mouth once daily. Meds Comments as of 01/24/2018: Prilosec 20 mg q day in AM most days Problem List As Of Date 05/06/2025 Noted Resolved Fibrosclerosis of breast [N60.39] 07/28/2015 Allergic rhinitis [J30.9] SUPERVIS OTHER NORMAL PREG [Z34.80] 08/24/2006 07/25/2008 Inflammatory disease of breast [N61.0] 07/10/2007 09/14/2012 Benign neoplasm of skin of trunk, except scrotu*02/19/2008 12/06/2013 Benign neoplasm of scalp and skin of neck [D23.*02/19/2008 12/06/2013 Benign neoplasm of skin of other and unspecifie*02/19/2008 12/06/2013 Benign neoplasm of skin of upper limb, includin*02/19/2008 12/06/2013 Scar condition and fibrosis of skin [L90.5] 02/19/2008 12/06/2013 Unspecified hypertrophic and atrophic condition*02/19/2008 12/06/2013 FOLLICULITIS///HAIR DISEASES NEC [L67.8, L73.8] 09/10/2008 12/06/2013 Pyoderma, unspecified [L08.0] 03/19/2009 12/06/2013 Neoplasm of uncertain behavior of skin [D48.5] 09/29/2009 07/28/2015 Other acne [L70.8] 09/29/2009 07/28/2015 Hidradenitis suppurativa [L73.2] 09/29/2009 07/28/2015 Keloid scar [L91.0] 09/29/2009 07/28/2015 Hypertrophic scar [L91.0] 09/29/2009 07/28/2015 Depression [F32.A] 11/06/2009 Kidney stones [N20.0] 11/06/2009 Atypical nevus of lower leg [D22.70] 04/11/2012 07/28/2015 Atypical nevus of thigh [D22.70] 04/11/2012 07/28/2015 Melanocytic nevi of lower extremity or hip [D22*04/11/2012 07/28/2015 Melanocytic nevi of face [D22.30] 04/11/2012 07/28/2015 Melanocytic nevi of upper extremity or shoulder*04/11/2012 07/28/2015 Other psoriasis [L40.8] 0 (more content not included)... Normal [facility] SCRN MAMM (CAD)W/ANDREAS BILATo n 05-06-2025 SCRN MAMM (CAD)W/ANDREAS BILAT [facility] Imaging Services [address] [place], [place] [address] SCRN MAMM (CAD)W/ANDREAS BILAT MR#: [id number] Acct: [id number] Name: BRICE GOMEZ Rep #: [id number] : 1980 F 44 From: Nabil harper MD PCP: Dr. To Longoria, Status: [facility] Study: SCRN MAMM (CAD)W/ANDREAS BILAT Date of Exam: 04/20 06/13 Exam# [id number] Ordering Dr: To Longoria DO EXAM: SCRN MAMM (CAD)W/ANDREAS BILAT DATE: 05/06/2025 CLINICAL HISTORY: F, Age 44 y/o , SCREENING History of bilateral cysts. BREAST CANCER RISK ASSESSMENT: Not assessed. TECHNIQUE: Bilateral screening digital breast tomosynthesis with 2D and 3D images. Computer aided detection. COMPARISON: Prior exam(s) dated April 25, 2024.. FINDINGS: TISSUE DENSITY: The breast tissue is composed of scattered areas of fibroglandular density. Bilateral Breast Mammographic Findings: No significant masses, calcifications or other abnormalities are identified. A tissue clip marker is seen in the retroareolar region of the left breast. Stable fat containing bilateral axillary lymph nodes. No suspicious masses, areas of developing architectural distortion, or suspicious calcifications. There has been no significant interval change. BI/SCRN MAMM (CAD)W/ANDREAS BILAT IMPRESSION: Stable examination. OVERALL FINAL ASSESSMENT BI-RADS 2: BENIGN RECOMMEND ANNUAL MAMMOGRAPHIC SCREENING. RECOMMENDATION: Routine annual follow-up in 1 Year A letter with findings and recommendations will be mailed to the patient. Reading Location: [facility] CC: Dr. To Longoria DO Knee Bolter: Signed Normal [place] 04-24-2025 CNPN Telephone (FAMWS) -------- BRICE GOMEZ ([id number]) 1980 F Date Time Provider Department 04/24/25 [facility] During your visit today, we recorded the following information about you: Jamia Ahmadi 04/24/2025 2:38 PM Signed Patient presented to front office assistant with a form for [employer] that needs completed and faxed to the number attached. Patient is asking that the form be scanned into her chart as the form may need to be resubmitted in the future. 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 Form placed on nurses desk. Please assist. Jessica Mcdowell LPN 04/25/2025 5:16 PM Signed Not sure where form was placed. Will need to look through Dr.. Richard office Monday. Lisa Ruvalcaba LPN 04/28/2025 4:22 PM Signed Patient calling asking about the Prior authorization form she dropped off , if it was completed for the [facility]. Lisa Ruvalcaba LPN 04/29/2025 9:49 AM Signed Patient calling said to disregard the paper. She said [employer] was reaching out to the office about a PA. Allergies As of Date: 04/24/2025 Noted Allergy Reaction CLINDAMYCIN 09/27/2016 16 - Unknown BEE STING 05/02/2011 4 - Hives Comments: Facial edema BIAXIN (CLARITHROMYCIN) 01/08/2014 2 - Rash Comments: Patient developed a pruritic rash 7 days into course of biaxin and flagyl for H pylori infection. No mucous membrane involvement, exfoliation, fevers or joint pain/swelling. CELEXA (CITALOPRAM) 02/14/2006 8 - GI Upset ENTEX (PHENYLEPHRINE-GUAIFENES IN) 02/14/2006 5 - Intolerance Comments: Tachycardia FLAGYL (METRONIDAZOLE HCL) 01/08/2014 2 - Rash Comments: Patient developed a pruritic rash 7 days into course of biaxin and flagyl for H pylori infection. No mucous membrane involvement, exfoliation, fevers or joint pain/swelling. KEFLEX (CEPHALEXIN) 05/11/2009 2 - Rash MINOCYCLINE 02/14/2006 4 - Hives PENICILLINS 03/14/2006 2 - Rash 9 - Itching Comments: Vishnu Mosqueda type reaction. Date Reviewed: 03/25/2025 Reviewed by: Bree Oliver LPN - Fully Assessed Reason for Visit: Forms [913] Prescriptions as of 04/29/2025 - tirzepatide, weight loss (ZEPBOUND) 2.5 mg/0.5 mL solution Inject 0.5 mL subcutaneously one time a week. BMI 30 - estrogen - VERIFY PATCH 0.075 each. 2 weekly Nathaly - metoprolol succinate ER (TOPROL XL) 25 mg 24 hr tablet Take 1 tablet by mouth once daily. - vilazodone (VIIBRYD) 40 mg tablet Take 1 tablet by mouth once daily. - celecoxib (CELEBREX) 100 mg capsule Take 100 mg by mouth two times a day. - esomeprazole (NEXIUM) 40 mg capsule Take 1 capsule by mouth two times a day before meals. 1/2 hr before meal. - buPROPion XL (WELLBUTRIN XL) 300 mg 24 hr tablet Take 1 tablet by mouth once daily. - cyclobenzaprine (FLEXERIL) 10 mg tablet Take 1 tablet by mouth three times a day as needed for muscle spasm. - clonazePAM (KLONOPIN) 0.5 mg tablet Take 1 tablet by mouth at bedtime as needed for up to 30 days. - albuterol HFA (PROAIR HFA) 90 mcg/actuation inhaler Inhale 2 Puffs as instructed every 4 hours as needed. - scopolamine (TRANSDERM-SCOP) patch 1.5 mg/72 hr (delivers 1 mg over 3 days) Apply 1 Patch as directed every 72 hours. Apply patch to skin behind ear 4hrs prior to travel. - azaTHIOprine (IMURAN) 100 mg tablet Take 100 mg by mouth once daily. - Cholecalciferol, Vitamin D3, 25 mcg (1,000 unit) cap Take 25 mcg by mouth once daily. - mometasone (NASONEX) 50 mcg/actuation nasal spray Use 2 Sprays in the nose twice daily. - EPINEPHrine (EPIPEN) 0.3 mg/0.3 mL auto-injector Inject 0.3 mL subcutaneously as needed. Then seek medical attention immediately. - MULTI-VITAMIN ORAL Take by mouth. - cetirizine (ZYRTEC) 10 mg tablet Take 10 mg by mouth once daily. Meds Comments as of 01/24/2018: Prilosec 20 mg q day in AM most days Problem List As Of Date 04/24/2025 Noted Resolved Fibrosclerosis of breast [N60.39] 07/28/2015 Allergic rhinitis [J30.9] SUPERVIS OTHER NORMAL PREG [Z34.80] 08/24/2006 07/25/2008 Inflammatory disease of breast [N61.0] 07/10/2007 09/14/2012 Benign neoplasm of skin of trunk, except scrotu*02/19/2008 12/06/2013 Benign neoplasm of scalp and skin of neck [D23.*02/19/2008 12/06/2013 Benign neoplasm of skin of other and unspecifie*02/19/2008 12/06/2013 Benign neoplasm of skin of upper limb, includin*02/19/2008 12/06/2013 Scar condition and fibrosis of skin [L90.5] 02/19/2008 12/06/2013 Unspecified hypertrophic and atrophic condition*02/19/2008 12/06/2013 FOLLICULITIS///HAIR DISEASES NEC [L67.8, L73.8] 09/10/2008 12/06/2013 Pyoderma, unspecified [L08.0] 03/19/2009 12/06/2013 Neoplasm of uncertain behavior of skin [D48.5] 09/29/2009 07/28/2015 Other acne [L70.8] 09/29/2009 07/28/2015 Hidradenitis suppurativa [L73.2] 09/29/2009 07/28/2015 Keloid scar [L91.0] 09/29/2009 07/28/2015 Hypertrop (more content not included)... Normal [facility] Insulin Levelon 03-27-2025 INSULIN,FASTING 11.9 uIU/mL Normal 2.6-24.9 [facility] Comment on above: Result Comment: Perf ormed at: [facility] [id number] [place], [place] [id number] Value Stream Manager: Natanael Felix PhD, Phone: [phone] Performed By: #### L 3300.3500, L509.3001, L501.9985, L3300.1750, L500.4050, L801.2600, L3100.5125 ####[facility] [address] [place], [address] PROGESTERONE 4317on 03-27-20 25 PROGESTERONE 0.4 ng/mL Normal . [facility] Comment on above: Order Comment: N Result Comment: Foll icular phase 0.1 - 0.9 Luteal phase 1.8 - 23.9 Ovulation phase 0.1 - 12.0 First trimester 11.0 - 44.3 Second trimester 25.4 - 83.3 Third trimester 58.7 - 214.0 Postmenopausal 0.0 - 0.1 Performed at: [facility] [address] [place], [place] [id number] Value Stream Manager: Natanael Felix PhD, Phone: [phone] Performed By: #### L 3300.3500, L509.3001, L501.9985, L3300.1750, L500.4050, L801.2600, L3100.5125 ####[facility] [address] [place], [place], [id number] Anion gap in Serum or Plasma Ordered By: To Longoria on 03-26-2025 Anion gap [Moles/Vol] 11 mmol/L 5-15 [facility] BUN/creatinine ratioOrdered By: To Longoria on 03-26-2025 Urea nitrogen/Creatinine [Mass ratio] 22.3 mg/mg High 10- [facility] Bilirubin, totalOrdered By: To Longoria on 03-26-2025 Bilirubin [Mass/Vol] 0.69 mg/dL 0.00-1.30 [facility] CNPNon 03-26-2025 [facility] Telephone (FAMPWS) -------- BRETBRICE Joshua ([id number]) 1980 F Date Time Provider Department 03/26/25 TO [facility] During your visit today, we recorded the following information about you: Benito Bree EL 03/26/2025 2:12 PM Signed Lab results received and placed on Dr. Longoria's desk To Longoria DO 04/16/2025 12:00 PM Signed Please obtain lab results for me to review I don't have these on my desk DO Adelita Gutierrez [place], MA 04/16/2025 12:09 PM Signed Please review labs in scanned docs. View External Labs - Miscellaneous Lab [ID [id number]] View External Labs - Miscellaneous Lab [ID [id number]] To Longoria DO 04/16/2025 8:50 PM Signed Please let her know that her insulin levels were normal. Needs to discuss her progesterone/hormone levels with CARE CONNECTOR DO July Gutierrez Linda M, MATERIAL ATTENDANT 04/17/2025 9:04 AM Signed Left message to return call. Tere Tellez MA 04/21/2025 10:26 AM Signed Pt notified of results via [employer]. Tere Tellez Ma Allergies As of Date: 03/26/2025 Noted Allergy Reaction CLINDAMYCIN 09/27/2016 16 - Unknown BEE STING 05/02/2011 4 - Hives Comments: Facial edema BIAXIN (CLARITHROMYCIN) 01/08/2014 2 - Rash Comments: Patient developed a pruritic rash 7 days into course of biaxin and flagyl for H pylori infection. No mucous membrane involvement, exfoliation, fevers or joint pain/swelling. CELEXA (CITALOPRAM) 02/14/2006 8 - GI Upset ENTEX (PHENYLEPHRINE-GUAIFENES IN) 02/14/2006 5 - Intolerance Comments: Tachycardia FLAGYL (METRONIDAZOLE HCL) 01/08/2014 2 - Rash Comments: Patient developed a pruritic rash 7 days into course of biaxin and flagyl for H pylori infection. No mucous membrane involvement, exfoliation, fevers or joint pain/swelling. KEFLEX (CEPHALEXIN) 05/11/2009 2 - Rash MINOCYCLINE 02/14/2006 4 - Hives PENICILLINS 03/14/2006 2 - Rash 9 - Itching Comments: Vishnu Mosqueda type reaction. Date Reviewed: 03/25/2025 Reviewed by: Bree Oliver LPN - Fully Assessed Prescriptions as of 04/21/2025 - estrogen - VERIFY PATCH 0.075 each. 2 weekly Nathaly - metoprolol succinate ER (TOPROL XL) 25 mg 24 hr tablet Take 1 tablet by mouth once daily. - tirzepatide, weight loss (ZEPBOUND) 2.5 mg/0.5 mL solution Inject 0.5 mL subcutaneously one time a week. BMI 30 - vilazodone (VIIBRYD) 40 mg tablet Take 1 tablet by mouth once daily. - celecoxib (CELEBREX) 100 mg capsule Take 100 mg by mouth two times a day. - esomeprazole (NEXIUM) 40 mg capsule Take 1 capsule by mouth two times a day before meals. 1/2 hr before meal. - buPROPion XL (WELLBUTRIN XL) 300 mg 24 hr tablet Take 1 tablet by mouth once daily. - cyclobenzaprine (FLEXERIL) 10 mg tablet Take 1 tablet by mouth three times a day as needed for muscle spasm. - clonazePAM (KLONOPIN) 0.5 mg tablet Take 1 tablet by mouth at bedtime as needed for up to 30 days. - albuterol HFA (PROAIR HFA) 90 mcg/actuation inhaler Inhale 2 Puffs as instructed every 4 hours as needed. - scopolamine (TRANSDERM-SCOP) patch 1.5 mg/72 hr (delivers 1 mg over 3 days) Apply 1 Patch as directed every 72 hours. Apply patch to skin behind ear 4hrs prior to travel. - azaTHIOprine (IMURAN) 100 mg tablet Take 100 mg by mouth once daily. - Cholecalciferol, Vitamin D3, 25 mcg (1,000 unit) cap Take 25 mcg by mouth once daily. - mometasone (NASONEX) 50 mcg/actuation nasal spray Use 2 Sprays in the nose twice daily. - EPINEPHrine (EPIPEN) 0.3 mg/0.3 mL auto-injector Inject 0.3 mL subcutaneously as needed. Then seek medical attention immediately. - MULTI-VITAMIN ORAL Take by mouth. - cetirizine (ZYRTEC) 10 mg tablet Take 10 mg by mouth once daily. Meds Comments as of 01/24/2018: Prilosec 20 mg q day in AM most days Problem List As Of Date 03/26/2025 Noted Resolved Fibrosclerosis of breast [N60.39] 07/28/2015 Allergic rhinitis [J30.9] SUPERVIS OTHER NORMAL PREG [Z34.80] 08/24/2006 07/25/2008 Inflammatory disease of breast [N61.0] 07/10/2007 09/14/2012 Benign neoplasm of skin of trunk, except scrotu*02/19/2008 12/06/2013 Benign neoplasm of scalp and skin of neck [D23.*02/19/2008 12/06/2013 Benign neoplasm of skin of other and unspecifie*02/19/2008 12/06/2013 Benign neoplasm of skin of upper limb, includin*02/19/2008 12/06/2013 Scar condition and fibrosis of skin [L90.5] 02/19/2008 12/06/2013 Unspecified hypertrophic and atrophic condition*02/19/2008 12/06/2013 FOLLICULITIS///HAIR DISEASES NEC [L67.8, L73.8] 09/10/2008 12/06/2013 Pyoderma, unspecified [L08.0] 03/19/2009 12/06/2013 Neoplasm of uncertain behavior of skin [D48.5] 09/29/2009 07/28/2015 Other acne [L70.8] 09/29/2009 07/28/2015 Hidradenitis suppurativa [L73.2] 09/29/2009 07/28/2015 Keloid scar [L91.0] 09/29/2009 07/28/2015 Hypertrophic scar [L91.0] 09/29/2009 07/28/2015 Depression [F32.A] 11/06/2009 (more content not included)... Normal [facility] Carbon dioxide, total [Moles /volume] in Central venous bloodOrdered By: To Von on 03-26-2025 CO2 [Moles/Vol] 21.9 mmol/L 21.0-32.0 [facility] Chloride assayOrdered By: Bhumika Longoria on 03-26-2025 Chloride [Moles/Vol] 107 mmol/L 98-108 [facility] Comprehensive Metabolic Prof ilon 03-26-2025 Albumin [Mass/Vol] 4.5 g/dL Normal 3.5-5.0 [facility] Comment on above: Performed By: #### L 3300.3500, L509.3001, L501.9985, L3300.1750, L500.4050, L801.2600, L3100.5125 ####[facility] [address], [address] Albumin/Globulin [Mass ratio] 1.6 {ratio} Normal 0.9-2.4 [facility] Comment on above: Performed By: #### L 3300.3500, L509.3001, L501.9985, L3300.1750, L500.4050, L801.2600, L3100.5125 ####[facility] [address] [place], [address] ALK PHOS 68 U/L Normal 35-104 [facility] Comment on above: Performed By: #### L 3300.3500, L509.3001, L501.9985, L3300.1750, L500.4050, L801.2600, L3100.5125 ####[facility] [address] [place], [address] ALT [Catalytic activity/Vol] 20 U/L Normal <=34 [facility] Comment on above: Performed By: #### L 3300.3500, L509.3001, L501.9985, L3300.1750, L500.4050, L801.2600, L3100.5125 ####[facility] [address] [place], [address] AST [Catalytic activity/Vol] 28 U/L Normal <=31 [facility] Comment on above: Performed By: #### L 3300.3500, L509.3001, L501.9985, L3300.1750, L500.4050, L801.2600, L3100.5125 ####[facility] [address] [place], [address] Bilirubin [Mass/Vol] 0.69 mg/dL Normal 0.00-1.30 [facility] Comment on above: Performed By: #### L 3300.3500, L509.3001, L501.9985, L3300.1750, L500.4050, L801.2600, L3100.5125 ####[facility] [address] [place], [address] BUN/CRE 22.3 RATIO High 10-20 [facility] Comment on above: Performed By: #### L 3300.3500, L509.3001, L501.9985, L3300.1750, L500.4050, L801.2600, L3100.5125 ####[facility] [address] [place], [address] Calcium [Mass/Vol] 9.1 mg/dL Normal 7.6-11.0 [facility] Comment on above: Performed By: #### L 3300.3500, L509.3001, L501.9985, L3300.1750, L500.4050, L801.2600, L3100.5125 ####[facility] [address] [place], [address] Chloride [Moles/Vol] 107 mmol/L Normal 98-108 [facility] Comment on above: Performed By: #### L 3300.3500, L509.3001, L501.9985, L3300.1750, L500.4050, L801.2600, L3100.5125 ####[facility] [address] [place], [place], [id number] CO2 [Moles/Vol] 21.9 mmol/L Normal 21.0-32.0 [facility] Comment on above: Performed By: #### L 3300.3500, L509.3001, L501.9985, L3300.1750, L500.4050, L801.2600, L3100.5125 ####[facility] [address] [place], [place], [id number] Creatinine [Mass/Vol] 0.84 mg/dL Normal 0.70-1.20 [facility] Comment on above: Performed By: #### L 3300.3500, L509.3001, L501.9985, L3300.1750, L500.4050, L801.2600, L3100.5125 ####[facility] [address] [place], [place], [id number] GAP 11 Normal 5-15 [facility] Comment on above: Performed By: #### L 3300.3500, L509.3001, L501.9985, L3300.1750, L500.4050, L801.2600, L3100.5125 ####[facility] [address] [place], [place], [id number] GFR/1.73 sq M.predicted among non-blacks MDRD (S/P/Bld) [Vol rate/Area] 86 mL/min/{1.73_m2} Normal >60 [facility] Comment on above: Result Comment: mL/m in/1.73m2 CKD-EPI Creatinine Equation (2020) Performed By: #### L 3300.3500, L509.3001, L501.9985, L3300.1750, L500.4050, L801.2600, L3100.5125 ####[facility] [address] [place], [address] Globulin (S) [Mass/Vol] 2.8 g/dL Normal 2.2-4.[address] [facility] Comment on above: Performed By: #### L 3300.3500, L509.3001, L501.9985, L3300.1750, L500.4050, L801.2600, L3100.5125 ####[facility] [address] [place], [address] Glucose [Mass/Vol] 100 mg/dL High 70-99 [facility] Comment on above: Performed By: #### L 3300.3500, L509.3001, L501.9985, L3300.1750, L500.4050, L801.2600, L3100.5125 ####[facility] [address] [place], [address] Potassium [Moles/Vol] 3.7 mmol/L Normal 3.3-5.1 [facility] Comment on above: Performed By: #### L 3300.3500, L509.3001, L501.9985, L3300.1750, L500.4050, L801.2600, L3100.5125 ####[facility] [address] [place], [address] Sodium [Moles/Vol] 139 mmol/L Normal 133-145 [facility] Comment on above: Performed By: #### L 3300.3500, L509.3001, L501.9985, L3300.1750, L500.4050, L801.2600, L3100.5125 ####[facility] [address] [place], [address] T PROT 7.3 g/dL Normal 5.9-8.4 [facility] Comment on above: Performed By: #### L 3300.3500, L509.3001, L501.9985, L3300.1750, L500.4050, L801.2600, L3100.5125 ####[facility] [address] [place], [address] Urea nitrogen [Mass/Vol] 19 mg/dL Normal 4-19 [facility] Comment on above: Performed By: #### L 3300.3500, L509.3001, L501.9985, L3300.1750, L500.4050, L801.2600, L3100.5125 ####[facility] [address] [place], [address] Estradiolon 03-26-2025 ESTRADIOL 57.2 pg/mL Normal [facility] Comment on above: Result Comment: FEMA LES ADULT FEMALE: Premenopausal: 15-350 pg/mL(E2 levels vary widely through the menstrual cycle) Postmenopausal: <10 pg/mL BURAK STAGES MEAN AGE REFERENCE RANGES Stage I(>14 days and prepubertal) 7.1 years Undetectable-20 pg/mLL Stage II 10.5 years Undetectable-24 pg/mL Stage III 11.6 years Undetectable-60 pg/mL Stage IV 12.3 years 15-85 pg/mL Stage V 14.5 years 15-350 pg/mL Puberty onset (transition from Bruak stage I to Burak stage II) occurs for girls at a median age of 10.5 (/- 2) years. There is evidence that it may occur up to 1 year earlier in obese girls and in girls. Progression through Burak stages is variable. Burak stage V (adult) should be reached by age 18. Performed By: #### L 3300.3500, L509.3001, L501.9985, L3300.1750, L500.4050, L801.2600, L3100.5125 ####[facility] [address] [place], [address] Follicle Stimulating Hormone on 03-26-2025 FSH 9.3 mIU/mL Normal [facility] Comment on above: Result Comment: FEMA LE: Follicular: 1.4 - 18.1 mIU/mL Midcycle: 3.4 - 33.4 mIU/mL Luteal: 1.5 - 9.1 mIU/mL Post Menopause: 23.0 - 116.3 mIU/mL MALE: 1.4 - 18.1 mIU/mL NORMAL REFERENCE RANGES FEMALE FOLLICULAR 2.3 - 12.6 mIU/mL MID-CYCLE PEAK 5.2 - 17.5 mIU/mL LUTEAL 1.7 - 12.9 mIU/mL POST-MENOPAUSAL ON MHT 5.9 - 72.8 mIU/mL NOT ON MHT 12.7 - 132.2 mlU/mL MALE 0.7 - 10.8 mIU/mL Performed By: #### L 3300.3500, L509.3001, L501.9985, L3300.1750, L500.4050, L801.2600, L3100.5125 ####[facility] [address] [place], [address] Glomerular filtration rate ( GFR) estimation/1.73 sq m using serum, plasma, or whole bOrdered By: To Longoria on 03-26-2025 GFR/1.73 sq M.predicted among non-blacks MDRD (S/P/Bld) [Vol rate/Area] 86 mL/min/{1.73_m2} >60 [facility] Comment on above: mL/min/1.73m2 CKD-EP I Creatinine Equation (2020) Hemoglobin A1con 03-26-2025 HbA1c (Bld) [Mass fraction] 5.1 % Normal <=5.6 [facility] Comment on above: Result Comment: Norm al < 5.7 % Prediabetic 5.7 - 6.4 % Diabetic >or= 6.5 % Please note range changes. Performed By: #### L 3300.3500, L509.3001, L501.9985, L3300.1750, L500.4050, L801.2600, L3100.5125 ####[facility] [address] [place], [place], [id number] Hemoglobin A1c percentageOrd ered By: To Longoria on 03-26-2025 HbA1c (Bld) [Mass fraction] 5.1 % <5.7 [facility] Comment on above: Normal < 5.7 % Predi abetic 5.7 - 6.4 % Diabetic >or= 6.5 % Please note range changes. L509.3001on 03-26-2025 Testosterone [Mass/Vol] ng/dL Low 9-55 [facility] Comment on above: Performed By: #### L 3300.3500, L509.3001, L501.9985, L3300.1750, L500.4050, L801.2600, L3100.5125 ####[facility] [address] [place], [place], [address] Laboratory - Chemistry and C hemistry - challengeOrdered By: To Longoria on 03-26-2025 AST [Catalytic activity/Vol] 28 U/L <32 [facility] Testosterone [Mass/Vol] ng/dL Low 9-55 [facility] Potassium measurement (mass/ volume)Ordered By: To Longoria on 03-26-2025 Potassium (Unsp spec) [Mass/Vol] 3.7 mmol/L 3.3-5.1 [facility] Serum creatinine measurement (mass/volume)Ordered By: To Longoria on 03-26-2025 Creatinine [Mass/Vol] 0.84 mg/dL 0.70-1.20 [facility] Serum globulin measurementOr dered By: To Longoria on 03-26-2025 Globulin (S) [Mass/Vol] 2.8 g/dL 2.2-4.[address] [facility] Serum glucose measurement (m ass/volume)Ordered By: To Longoria on 03-26-2025 Glucose [Mass/Vol] 100 mg/dL High 70-99 [facility] Serum or plasma alanine contreras otransferase (ALT) measurementOrdered By: To Longoria on 03-26-2025 ALT [Catalytic activity/Vol] 20 U/L <35 [facility] Serum or plasma albumin zheng urement (mass/volume)Ordered By: To Longoria on 03-26-2025 Albumin [Mass/Vol] 4.5 g/dL 3.5-5.0 [facility] Serum or plasma albumin/glob ulin mass ratioOrdered By: To Longoria on 03-26-2025 Albumin/Globulin [Mass ratio] 1.6 {ratio} 0.9-2.4 [facility] Serum or plasma alkaline myles sphatase measurementOrdered By: To Longoria on 03-26-2025 ALP [Catalytic activity/Vol] 68 U/L 35-104 [facility] Serum or plasma calcium zheng urement (mass/volume)Ordered By: To Longoria on 03-26-2025 Calcium [Mass/Vol] 9.1 mg/dL 7.6-11.0 [facility] Serum or plasma estradiol me asurement after follitropin dose (mass/volume)Ordered By: To Longoria on 03-26-2025 E2 post dose follitropin [Mass/Vol] 57.2 pg/mL [facility] Comment on above: FEMALES ADULT FEMALE : Premenopausal: 15-350 pg/mL(E2 levels vary widely through the menstrual cycle) Postmenopausal: <10 pg/mL BURAK STAGES MEAN AGE REFERENCE RANGES Stage I(>14 days and prepubertal) 7.1 years Undetectable-20 pg/mLL Stage II 10.5 years Undetectable-24 pg/mL Stage III 11.6 years Undetectable-60 pg/mL Stage IV 12.3 years 15-85 pg/mL Stage V 14.5 years 15-350 pg/mL Puberty onset (transition from Burak stage I to Burak stage II) occurs for girls at a median age of 10.5 (/- 2) years. There is evidence that it may occur up to 1 year earlier in obese girls and in girls.Progression through Burak stages is variable. Burak stage V (adult) should be reached by age 18. Serum or plasma insulin zheng urement (mass/volume)Ordered By: To Longoria on 03-26-2025 Insulin [Mass/Vol] 11.9 uIU/mL 2.6-24.9 [facility] Comment on above: Performed at: [address] [id number] Director: Natanael Felix PhD, Phone: [id number] Serum or plasma urea nitroge n measurement (mass/volume)Ordered By: To Longoria on 03-26-2025 Urea nitrogen [Mass/Vol] 19 mg/dL 4-19 [facility] Sodium levelOrdered By: Leif Longoria on 03-26-2025 Sodium [Moles/Vol] 139 mmol/L 133-145 [facility] Total proteinOrdered By: Braxton Longoria on 03-26-2025 Protein [Mass/Vol] 7.3 g/dL 5.9-8.4 [facility] CNOVon 03-25-2025 CNOV Office Visit (FAMPWS ) -------- BRICE GOMEZ ([id number]) 1980 F Date Time Provider Department 03/25/25 3:20 PM [facility] During your visit today, we recorded the following information about you: Temperature Pulse Respiration Blood pressure 98.4 degrees 80/minute 12/minute 130/80 Weight 69.4 kg To Longoria DO 03/27/2025 10:39 AM Signed CC: Brice Gomez is a 44 year old female who presents to the office for follow up HPI: Menopausal disorder, she is seeing [facility] and recently was started on estrogen, she is going to see the physician and discuss potential of starting progesterone and testosterone as well for all her symptoms Mood, seeing Psychiatry [facility] at [place] [address] and counselor through same organization. Feels like her mood is improving and she is at this time still on the ketamine but weaning down to monthly treatments Obesity, weight at 153 lbs. BMI 30.04, knows need for weight loss. Wondering about starting GLP1 agonist. Is overall eating a healthy diet and staying physically active with walking and yoga HTN, struggling with fatigue symptoms with propranolol, wondering if she can try an alternative medication PAST MEDICAL HISTORY Diagnosis Date Abnormal uterine [...] airway disease Severe pre-eclampsia, condition or complication Driver general hospitalization Stone, kidney x2 Vitamin D [...] DANDC and ablation Dr. Silveira S HERNIA PATCH,VENTRALEX,[id number] abdomen STEROTACTIC GUIDE BREAST BX 10/01/2012 u/s guidance of left breast VAGINAL HYSTERECTOMY right Ovary remains Current Outpatient Medications Medication Sig estrogen - VERIFY PATCH 0.075 each. 2 weekly [place] metoprolol succinate ER (TOPROL XL) 25 mg 24 hr tablet Take 1 tablet by mouth once daily. tirzepatide, weight loss (ZEPBOUND) 2.5 mg/0.5 mL solution Inject 0.5 mL subcutaneously one time a week. BMI 30 vilazodone (VIIBRYD) 40 mg tablet Take 1 tablet by mouth once daily. celecoxib (CELEBREX) 100 mg capsule Take 100 mg by mouth two times a day. esomeprazole (NEXIUM) 40 mg capsule Take 1 capsule by mouth two times a day before meals. 1/2 hr before meal. buPROPion XL (WELLBUTRIN XL) 300 mg 24 hr tablet Take 1 tablet by mouth once daily. cyclobenzaprine (FLEXERIL) 10 mg tablet Take 1 tablet by mouth three times a day as needed for muscle spasm. clonazePAM (KLONOPIN) 0.5 mg tablet Take 1 tablet by mouth at bedtime as needed for up to 30 days. albuterol HFA (PROAIR HFA) 90 mcg/actuation inhaler Inhale 2 Puffs as instructed every 4 hours as needed. scopolamine (TRANSDERM-SCOP) patch 1.5 mg/72 hr (delivers 1 mg over 3 days) Apply 1 Patch as directed every 72 hours. Apply patch to skin behind ear 4hrs prior to travel. azaTHIOprine (IMURAN) 100 mg tablet Take 100 mg by mouth once daily. Cholecalciferol, Vitamin D3, 25 mcg (1,000 unit) cap Take 25 mcg by mouth once daily. mometasone (NASONEX) 50 mcg/actuation nasal spray Use 2 Sprays in the nose twice daily. EPINEPHrine (EPIPEN) 0.3 mg/0.3 mL auto-injector Inject 0.3 mL subcutaneously as needed. Then seek medical attention immediately. MULTI-VITAMIN ORAL Take by mouth. cetirizine (ZYRTEC) 10 mg tablet Take 10 [...] into course of biaxin and flagyl for (more content not included)... Normal [facility] Cerv Spine Obl/Flex/Ext Comp on 03-03-2025 Cerv Spine Obl/Flex/Ext Comp [facility] Imaging Services [address] [place] [address] Cerv Spine Obl/Flex/Ext Comp MR#: [id number] Acct: [id number] Name: BRICE GOMEZ Rep #: [id number] : 1980 F 44 From: Dimitri Baca MD PCP: Dr. To Longoria, DO Status: [facility] Study: Cerv Spine Obl/Flex/Ext Comp Date of Exam: Exam# [id number] Ordering Dr: Lisa Werner PROCEDURE: CERV SPINE OBL/FLEX/EXT COMP 03/03/2025 REASON FOR EXAM: CERVICAL SPINE PAIN TECHNIQUE: 7 views of the cervical spine. AP, lateral, bilateral obliques, flexion and extension and open mouth odontoid COMPARISON: None available FINDINGS: Cervical spine is visualized on the lateral view from the skull base to the top of T1. No fracture or malalignment. No prevertebral soft tissue swelling. Disc spaces appear within limits. No evidence of instability. No significant osseous foraminal narrowing identified. Visualized apices appear clear. RAD/Cerv Spine Obl/Flex/Ext Comp IMPRESSION: Study appears within limits. Reading Location: [id number] CC: Lisa Werner; Dr. To Longoria DO Knee Bolter: Signed Normal [facility] Gastroenterology Visit Repor ton 02-20-2025 Gastroenterology Visit Report [facility] Gastroenterology [address] [facility] [place] [address] OFFICE VISIT Date of Service: 02/20/25 MR#: [id number] Acct: [id number] Name: BRICE GOMEZ Rep #: [id number] : 1980 Provider: Pedrito Brock DO Age/Sex: 44/F Location: [facility] Status: Signed Intake Vital Signs 10/31/24 14:06 12/16/24 11:12 Height 5 ft 5 ft Intake Visit Reasons: 3 M FU Allergies cephalexin monohydrate (From Keflex) Allergy (Verified 01/08/25 16:21) Rash clarithromycin (From Biaxin) Allergy (Verified 01/08/25 16:21) Rash metronidazole (From Flagyl) Allergy (Verified 01/08/25 16:21) Rash minocycline Allergy (Verified 01/08/25 16:21) Rash Penicillins Allergy (Verified 01/08/25 16:21) VISHNU MOSQUEDA'S citalopram hydrobromide (From Celexa) Adverse Reaction (Verified 01/08/25 16:21) Nausea/Vom/Diarrhea Medications ???Medication ???Instructions ???Recorded ???Confirmed ???Type multivitamin with minerals 1 ea PO DAILY 09/02/19 02/20/25 Hi story cetirizine 10 mg capsule (Zyrtec) 10 mg PO DAILY 09/30/20 02/20/25 History albuterol sulfate 90 mcg/actuation 1 inh inhalation Q6H PRN sob 02/20/25 History aerosol inhaler acetaminophen 325 mg capsule 325 mg PO ONCE PRN Pain 07/13/21 0 02/20/25 History (Tylenol) ibuprofen 400 mg tablet 400 mg PO Q8H PRN Pain 08/09/21 History esomeprazole magnesium 40 mg 40 mg PO DAILY 09/22/21 02/20/25 H istory capsule,delayed release (Nexium) cholecalciferol (vitamin D3) 25 25 mcg PO DAILY 03/23/22 02/20/25 History mcg (1,000 unit) capsule mometasone 50 mcg/actuation nasal 2 spray intranasal DAILY PRN 0802/0802/20/25 History spray (Nasonex) ALLERGIES clonazepam 0.5 mg tablet 0.5 mg PO PRN PRN Anxiety 11/04/22 02/20/25 History bupropion HCl 300 mg 24 hr tablet, 400 mg PO DAILY 12/28/23 5 History extended release cyclobenzaprine 5 mg tablet 5 mg PO QHS 06/11/24 02/20/25 Hist ory vilazodone 40 mg tablet 40 mg PO QDAY 06/11/24 02/20/25 Hi story esketamine 84 mg (28 mg x 3) nasal See Rx Instructions intranasal 1 02/20/25 History spray .COMPLEX celecoxib 100 mg capsule (Celebrex) 100 mg PO BID 10/31/24 02/20/25 History propranolol 80 mg capsule,24 100 mg PO QDAY 10/31/24 02/20/25 H istory hr,extended release estradiol 0.075 mg/24 hr 1 patch transdermal 2XW #8 ea 11/2102/20/25 Rx semiweekly transdermal patch (Vivelle-Dot) azathioprine 50 mg tablet 100 mg (2 x 50 mg) PO DAILY #60 02/20/25 Rx TABLETS PFSH Medical History (Updated 01/08/25 @ 17:36 by Bayron López NP-C) Laceration of right thumb History of Crohn's disease Difficulty swallowing Depression Anxiety Easy bruising Gastric reflux Low serum IgE Normal Holter exam Postoperative wound seroma Abdominal pain Ventral incisional hernia without obstruction or gangrene Alcohol use History of renal disease Anemia Back pain Migraine headache Injury of head and neck History of hiatal hernia History of IBS Non-smoker CPAP (continuous positive airway pressure) dependence Chronic cough Shortness of breath on exertion Hx of echocardiogram History of stress test Cardiology follow-up encounter History of irregular heartbeat Ventral incisional hernia without obstruction or gangrene Diarrhea Constipation Sleep apnea History of severe acute respiratory syndrome coronavirus 2 (SARS-CoV-2) disease Depression with anxiety neck and back pain Knee pain Surgical History History of esophagogastroduodenosco py (EGD) History of placement of ear tubes S/P right hemicolectomy Hx of colonoscopy History of ventral hernia repair History of LAVH S/P laparoscopic assisted vaginal hysterectomy (LAVH) Hx of colonoscopy History of colectomy H/O prior ablation treatment History of dilatation and curettage History of eye surgery History of wisdom tooth extraction History of breast biopsy history cysto with stent insertion Hx of tubal ligation History of Family History Grandmother Atrial fibrillation Hypertension Mother Hypertension Mitral valve prolapse Grandfather Cancer Esophageal cancer Social History adopted: No household members: spouse and children housing: house number of children: 2 current occupational status: employed 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 Normal [facility] Urgent Care Visit Reporton 0 01-08-2025 Urgent Care Visit Report [facility] [address], [address] [place] [address] OFFICE VISIT Date of Service: 01/08/25 MR#: [id number] Acct: [id number] Name: BRICE GOMEZ Rep #: [id number] : 1980 Provider: VITO López Age/Sex: 44/F Location: [facility] Status: Signed Intake Vital Signs 12/16/24 11:12 01/08/25 16:15 Height 5 ft BP 124/84 H Position Sitting Pulse 91 Temp 98.9 F Temp Source Oral Pulse Oximetry (%) 99 Oxygen Delivery Method room air Intake Visit Reasons: R THUMB LACERATION Accompanied by: Is patient in pain?: Yes Pain scale (1-10): 4 Allergies cephalexin monohydrate (From Keflex) Allergy (Verified 01/08/25 16:21) Rash clarithromycin (From Biaxin) Allergy (Verified 01/08/25 16:21) Rash metronidazole (From Flagyl) Allergy (Verified 01/08/25 16:21) Rash minocycline Allergy (Verified 01/08/25 16:21) Rash Penicillins Allergy (Verified 01/08/25 16:21) VISHNU MOSQUEDA'S citalopram hydrobromide (From Celexa) Adverse Reaction (Verified 01/08/25 16:21) Nausea/Vom/Diarrhea Medications ???Medication ???Instructions ???Recorded ???Confirmed ???Type multivitamin with minerals 1 ea PO DAILY 09/02/19 01/08/25 Hi story cetirizine 10 mg capsule (Zyrtec) 10 mg PO DAILY 09/30/20 01/08/25 History albuterol sulfate 90 mcg/actuation 1 inh inhalation Q6H PRN sob 01/08/25 History aerosol inhaler acetaminophen 325 mg capsule 325 mg PO ONCE PRN Pain 07/13/21 0 01/08/25 History (Tylenol) ibuprofen 400 mg tablet 400 mg PO Q8H PRN Pain 08/09/21 History esomeprazole magnesium 40 mg 40 mg PO DAILY 09/22/21 01/08/25 H istory capsule,delayed release (Nexium) cholecalciferol (vitamin D3) 25 25 mcg PO DAILY 03/23/22 01/08/25 History mcg (1,000 unit) capsule mometasone 50 mcg/actuation nasal 2 spray intranasal DAILY PRN 08/0 02/0801/08/25 History spray (Nasonex) ALLERGIES clonazepam 0.5 mg tablet 0.5 mg PO PRN PRN Anxiety 11/04/22 01/08/25 History bupropion HCl 300 mg 24 hr tablet, 400 mg PO DAILY 12/28/23 5 History extended release cyclobenzaprine 5 mg tablet 5 mg PO QHS 06/11/24 01/08/25 Hist ory vilazodone 40 mg tablet 40 mg PO QDAY 06/11/24 01/08/25 Hi story esketamine 84 mg (28 mg x 3) nasal See Rx Instructions intranasal 1 01/08/25 History spray .COMPLEX celecoxib 100 mg capsule (Celebrex) 100 mg PO BID 10/31/24 01/08/25 History propranolol 80 mg capsule,24 100 mg PO QDAY 10/31/24 01/08/25 H istory hr,extended release estradiol 0.075 mg/24 hr 1 patch transdermal 2XW #8 ea 11/2101/08/25 Rx semiweekly transdermal patch (Vivelle-Dot) azathioprine 50 mg tablet 100 mg (2 x 50 mg) PO DAILY #60 01/08/25 Rx TABLETS clindamycin HCl 300 mg capsule 300 mg PO Q6H 7 days #28 caps 12/2101/08/25 Rx Nurse's Note: Patient has Rt thumb laceration that happen about 40 mins ago. Patient was trying to take a label off a glass jar and it broke and she went to throw it away and it cut her thumb as she was throwing it in the trash. last Tetanus was 2021. [facility] Medical History (Updated 01/08/25 @ 17:36 by Bayron López, ANGÉLICA-C) Laceration of right thumb History of Crohn's disease Difficulty swallowing Depression Anxiety Easy bruising Gastric reflux Low serum IgE Normal Holter exam Postoperative wound seroma Abdominal pain Ventral incisional hernia without obstruction or gangrene Alcohol use History of renal disease Anemia Back pain Migraine headache Injury of head and neck History of hiatal hernia History of IBS Non-smoker CPAP (continuous positive airway pressure) dependence Chronic cough Shortness of breath on exertion Hx of echocardiogram History of stress test Cardiology follow-up encounter History of irregular heartbeat Ventral incisional hernia without obstruction or gangrene Diarrhea Constipation Sleep apnea History of severe acute respiratory syndrome coronavirus 2 (SARS-CoV-2) disease Depression with anxiety neck and back pain Knee pain Surgical History History of esophagogastroduodenosco py (EGD) History of placement of ear tubes S/P right hemicolectomy Hx of colonoscopy History of ventral hernia repair History of LAVH S/P laparoscopic assisted vaginal hysterectomy (LAVH) Hx of colonoscopy History of colectomy H/O prior ablation treatment History of dilatation and curettage History of eye surgery History of wisdom tooth extraction History of breast biopsy history cysto with stent insertion Hx of tubal ligation History of Family History Grandmother Atrial fibrillation Hypertension Mother Hypertension Mi (more content not included)... Normal [facility] Abdomen/Pelvis WITH Contrast on 01-02-2025 Abdomen/Pelvis WITH Contrast [facility] Imaging Services [address] [place], [place] [id number] Abdomen/Pelvis WITH Contrast MR#: [id number] Acct: [id number] Name: BRICE GOMEZ Rep #: [id number] : 1980 F 44 From: Nabil harper MD PCP: Dr. To Longoria DO Status: REG CLI Study: Abdomen/Pelvis WITH Contrast Date of Exam: Exam# [id number] Ordering Dr: Pedrito Brock DO PROCEDURE: ABDOMEN/PELVIS WITH CONTRAST REASON FOR EXAM: History of Crohn's disease. Diarrhea. Prior partial colectomy. TECHNIQUE: Abdomen and pelvis CT with intravenous contrast. Oral contrast was also used. IV CONTRAST: 100 cc of Isovue-300. COMPARISON: Comparison is made with prior study dated July 13, 2021. FINDINGS: Lung bases: Clear Liver: Unremarkable. Gallbladder: Unremarkable. Spleen: Unremarkable. Pancreas: Unremarkable. Adrenals: Unremarkable. Kidneys: Nonobstructive small bilateral intrarenal calculi more prominent on the left side. Tiny bilateral renal cysts. Bladder: Unremarkable. Reproductive Organs: Prior hysterectomy. Adnexal regions are unremarkable. Bowel: Circumferential thickening of the rectosigmoid colon suggestive of inflammatory changes. Scattered sigmoid diverticula are seen. Status post right hemicolectomy. Appendix: Status post appendectomy. Lymph nodes: No suspicious lymph node enlargement. Vasculature: Major vascular structures are unremarkable. Peritoneum / Retroperitoneum: No ascites. No free air. Small retroperitoneal lymph nodes. These are normal. Bones: Unremarkable. CT/Abdomen/Pelvis WITH Contrast IMPRESSION: Inflammatory changes seen in the rectosigmoid colon. Scattered sigmoid diverticula are seen at that site. Nonobstructive bilateral renal calculi and small bilateral renal cysts. One or more dose reduction techniques were used (e.g., Automated exposure control, adjustment of the mA and/or kV according to patient size, use of iterative reconstruction technique). Reading Location: [place] [address] CC: Dr. To Longoria DO; Pedrito Brock DO Knee Bolter: Signed Normal [facility] Office Visit Reporton 2024 Office Visit Report [facility] [address] [place] [address] OFFICE VISIT Date of Service: 12/25/24 MR#: [id number] Acct: [id number] Patient: BRICE GOMEZ Rep #: [id number] : 1980 Provider: Pedrito Brock DO Age/Sex: 44/F Location: [facility] Status: Signed Intake Vital Signs 10/31/24 14:06 12/16/24 11:12 Height 5 ft 5 ft Intake Visit Reasons: pill cam Chief Complaint: 4 Week med check Allergies cephalexin monohydrate (From Keflex) Allergy (Verified 12/16/24 11:04) Rash clarithromycin (From Biaxin) Allergy (Verified 12/16/24 11:04) Rash metronidazole (From Flagyl) Allergy (Verified 12/16/24 11:04) Rash minocycline Allergy (Verified 12/16/24 11:04) Rash Penicillins Allergy (Verified 12/16/24 11:04) VISHNU MOSQUEDA'S citalopram hydrobromide (From Celexa) Adverse Reaction (Verified 12/16/24 11:04) Nausea/Vom/Diarrhea Office Procedures Procedure Administration Route: PO Administration Location: [facility] Dispensed Units: 1 Capsule Lot Number: [id number] Expiration Date: 08/12/25 Capsule ID Number: [id number] Consent Form Signed: Yes Reason for Pill Capsule Endoscopy: [id number] Comments: pt tolerated well Pill Cam Billing-In Office: [id number] GI TRACT CAPSULE ENDOSCOPY 12/25/24 0840 Date Pedrito Friend DO Williamigner Signature: Date (if applicable) CC: Normal [facility] Small Engine Technician Office Visit Reporton 12-16-2024 Small Engine Technician Office Visit Report [facility], [facility] [address] [place] [address] OFFICE VISIT Date of Service: 12/16/24 MR#: [id number] Acct: [id number] Name: BRICE GOMEZ Rep #: [id number] : 1980 Provider: VITO price Age/Sex: 44/F Location: [facility] Status: Signed Intake Vital Signs 10/31/24 14:06 12/16/24 11:05 12/16/24 11:12 Height 5 ft 5 ft 5 ft Weight: 151 lb BMI 29.5 BP 117/72 Intake Visit Reasons: 4 wk med check Chief Complaint: 4 Week med check Slasher Sawyer Required: No Is patient in pain?: No Allergies cephalexin monohydrate (From Keflex) Allergy (Verified 12/16/24 11:04) Rash clarithromycin (From Biaxin) Allergy (Verified 12/16/24 11:04) Rash metronidazole (From Flagyl) Allergy (Verified 12/16/24 11:04) Rash minocycline Allergy (Verified 12/16/24 11:04) Rash Penicillins Allergy (Verified 12/16/24 11:04) VISHNU MOSQUEDA'S citalopram hydrobromide (From Celexa) Adverse Reaction (Verified 12/16/24 11:04) Nausea/Vom/Diarrhea Medications ???Medication ???Instructions ???Recorded ???Confirmed ???Type multivitamin with minerals 1 ea PO DAILY 09/02/19 12/16/24 History cetirizine 10 mg capsule (Zyrtec) 10 mg PO DAILY 09/30/20 12/16/24 History albuterol sulfate 90 mcg/actuation 1 inh inhalation Q6H PRN sob 05/10/21 12/16/24 History aerosol inhaler acetaminophen 325 mg capsule 325 mg PO ONCE PRN Pain 07/13/21 12/16/24 History (Tylenol) ibuprofen 400 mg tablet 400 mg PO Q8H PRN Pain 08/09/21 12/16/24 History esomeprazole magnesium 40 mg 40 mg PO DAILY 09/22/21 12/16/24 History capsule,delayed release (Nexium) cholecalciferol (vitamin D3) 25 25 mcg PO DAILY 03/23/22 12/16/24 History mcg (1,000 unit) capsule mometasone 50 mcg/actuation nasal 2 spray intranasal DAILY PRN 06/22/22 12/16/24 History spray (Nasonex) ALLERGIES clonazepam 0.5 mg tablet 0.5 mg PO PRN PRN Anxiety 11/04/22 12/16/24 History bupropion HCl 300 mg 24 hr tablet, 400 mg PO DAILY 12/28/23 12/16/24 History extended release cyclobenzaprine 5 mg tablet 5 mg PO QHS 06/11/24 12/16/24 History vilazodone 40 mg tablet 40 mg PO QDAY 06/11/24 12/16/24 History esketamine 84 mg (28 mg x 3) nasal See Rx Instructions intranasal 09/10/24 12/16/24 History spray .COMPLEX celecoxib 100 mg capsule (Celebrex) 100 mg PO BID 10/31/24 12/16/24 History propranolol 80 mg capsule,24 100 mg PO QDAY 10/31/24 12/16/24 History hr,extended release azathioprine 50 mg tablet 100 mg (2 x 50 mg) PO DAILY #60 11/26/24 12/16/24 Rx TABLETS estradiol 0.075 mg/24 hr 1 patch transdermal 2XW #8 ea 12/16/24 12/16/24 Rx semiweekly transdermal patch (Vivelle-Dot) Is last menstrual period known: No Post menopausal: Yes Patient : No : No Control Method: LAVH PFSH Medical History History of Crohn's disease Difficulty swallowing Depression Anxiety Easy bruising Gastric reflux Low serum IgE Normal Holter exam Postoperative wound seroma Abdominal pain Ventral incisional hernia without obstruction or gangrene Alcohol use History of renal disease Anemia Back pain Migraine headache Injury of head and neck History of hiatal hernia History of IBS Non-smoker CPAP (continuous positive airway pressure) dependence Chronic cough Shortness of breath on exertion Hx of echocardiogram History of stress test Cardiology follow-up encounter History of irregular heartbeat Ventral incisional hernia without obstruction or gangrene Diarrhea Constipation Sleep apnea History of severe acute respiratory syndrome coronavirus 2 (SARS-CoV-2) disease Depression with anxiety neck and back pain Knee pain Surgical History History of esophagogastroduodenosco py (EGD) History of placement of ear tubes S/P right hemicolectomy Hx of colonoscopy History of ventral hernia repair History of LAVH S/P laparoscopic assisted vaginal hysterectomy (LAVH) Hx of colonoscopy History of colectomy H/O prior ablation treatment History of dilatation and curettage History of eye surgery History of wisdom tooth extraction History of breast biopsy history cysto with stent insertion Hx of tubal ligation History of Family History Grandmother Atrial fibrillation Hypertension Mother Hypertension Mitral valve prolapse Grandfather Cancer Esophageal cancer Social History adopted: No household members: spouse and children housing: house number of children: 2 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 Normal [facility] Gastroenterology Visit Repor ton 12-12-2024 Gastroenterology Visit Report [facility] Gastroenterology [address] [place] [address] OFFICE VISIT Date of Service: 12/12/24 MR#: [id number] Acct: [id number] Name: BRICE GOMEZ Rep #: [id number] : 1980 Provider: Pedrito Friend, DO Age/Sex: 44/F Location: [facility] Status: Signed Intake Vital Signs 06/11/24 08:53 10/31/24 14:06 Height 5 ft 5 ft Intake Visit Reasons: 3 M FU Allergies cephalexin monohydrate (From Keflex) Allergy (Verified 06/11/24 08:53) Rash clarithromycin (From Biaxin) Allergy (Verified 06/11/24 08:53) Rash metronidazole (From Flagyl) Allergy (Verified 06/11/24 08:53) Rash minocycline Allergy (Verified 06/11/24 08:53) Rash Penicillins Allergy (Verified 06/11/24 08:53) VISHNU MOSQUEDA'S citalopram hydrobromide (From Celexa) Adverse Reaction (Verified 06/11/24 08:53) Nausea/Vom/Diarrhea Medications ???Medication ???Instructions ???Recorded ???Confirmed ???Type multivitamin with minerals 1 ea PO DAILY 09/02/19 12/12/24 History cetirizine 10 mg capsule (Zyrtec) 10 mg PO DAILY 09/30/20 12/12/24 History albuterol sulfate 90 mcg/actuation 1 inh inhalation Q6H PRN sob 05/10/21 12/12/24 History aerosol inhaler acetaminophen 325 mg capsule 325 mg PO ONCE PRN Pain 07/13/21 12/12/24 History (Tylenol) ibuprofen 400 mg tablet 400 mg PO Q8H PRN Pain 08/09/21 12/12/24 History esomeprazole magnesium 40 mg 40 mg PO DAILY 09/22/21 12/12/24 History capsule,delayed release (Nexium) cholecalciferol (vitamin D3) 25 25 mcg PO DAILY 03/23/22 12/12/24 History mcg (1,000 unit) capsule mometasone 50 mcg/actuation nasal 2 spray intranasal DAILY PRN 06/22/22 12/12/24 History spray (Nasonex) ALLERGIES clonazepam 0.5 mg tablet 0.5 mg PO PRN PRN Anxiety 11/04/22 12/12/24 History bupropion HCl 300 mg 24 hr tablet, 400 mg PO DAILY 12/28/23 12/12/24 History extended release cyclobenzaprine 5 mg tablet 5 mg PO QHS 06/11/24 12/12/24 History vilazodone 40 mg tablet 40 mg PO QDAY 06/11/24 12/12/24 History esketamine 84 mg (28 mg x 3) nasal See Rx Instructions intranasal 09/10/24 12/12/24 History spray .COMPLEX celecoxib 100 mg capsule (Celebrex) 100 mg PO BID 10/31/24 12/12/24 History propranolol 80 mg capsule,24 100 mg PO QDAY 10/31/24 12/12/24 History hr,extended release estradiol 0.05 mg/24 hr semiweekly 1 patch transdermal 2XW #12 ea 11/05/24 12/12/24 Rx transdermal patch (Vivelle-Dot) azathioprine 50 mg tablet 100 mg (2 x 50 mg) PO DAILY #60 11/26/24 12/12/24 Rx TABLETS PFSH Medical History History of Crohn's disease Difficulty swallowing Depression Anxiety Easy bruising Gastric reflux Low serum IgE Normal Holter exam Postoperative wound seroma Abdominal pain Ventral incisional hernia without obstruction or gangrene Alcohol use History of renal disease Anemia Back pain Migraine headache Injury of head and neck History of hiatal hernia History of IBS Non-smoker CPAP (continuous positive airway pressure) dependence Chronic cough Shortness of breath on exertion Hx of echocardiogram History of stress test Cardiology follow-up encounter History of irregular heartbeat Ventral incisional hernia without obstruction or gangrene Diarrhea Constipation Sleep apnea History of severe acute respiratory syndrome coronavirus 2 (SARS-CoV-2) disease Depression with anxiety neck and back pain Knee pain Surgical History History of esophagogastroduodenosco py (EGD) History of placement of ear tubes S/P right hemicolectomy Hx of colonoscopy History of ventral hernia repair History of LAVH S/P laparoscopic assisted vaginal hysterectomy (LAVH) Hx of colonoscopy History of colectomy H/O prior ablation treatment History of dilatation and curettage History of eye surgery History of wisdom tooth extraction History of breast biopsy history cysto with stent insertion Hx of tubal ligation History of Family History Grandmother Atrial fibrillation Hypertension Mother Hypertension Mitral valve prolapse Grandfather Cancer Esophageal cancer Social History adopted: No household members: spouse and children housing: house number of children: 2 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 Normal [facility] Small Engine Technician Office Visit Reporton 10-31-2024 Small Engine Technician Office Visit Report [facility] [address], [address] [place] [address] OFFICE VISIT Date of Service: 10/31/24 MR#: [id number] Acct: [id number] Name: BRICE GOMEZ Rep #: [id number] : 1980 Provider: VITO price Age/Sex: 44/F Location: [facility] Status: Signed Intake Vital Signs 06/11/24 08:53 10/31/24 13:57 10/31/24 14:06 Height 5 ft 5 ft 5 ft Weight: 152 lb BMI 29.7 BP 126/82 H Intake Visit Reasons: HRT (HOSP. EMP) Chief Complaint: HRT Slasher Sawyer Required: No Is patient in pain?: No Allergies cephalexin monohydrate (From Keflex) Allergy (Verified 06/11/24 08:53) Rash clarithromycin (From Biaxin) Allergy (Verified 06/11/24 08:53) Rash metronidazole (From Flagyl) Allergy (Verified 06/11/24 08:53) Rash minocycline Allergy (Verified 06/11/24 08:53) Rash Penicillins Allergy (Verified 06/11/24 08:53) VISHNU MOSQUEDA'S citalopram hydrobromide (From Celexa) Adverse Reaction (Verified 06/11/24 08:53) Nausea/Vom/Diarrhea Medications ???Medication ???Instructions ???Recorded ???Confirmed ???Type multivitamin with minerals 1 ea PO DAILY 09/02/19 10/31/24 History cetirizine 10 mg capsule (Zyrtec) 10 mg PO DAILY 09/30/20 10/31/24 History albuterol sulfate 90 mcg/actuation 1 inh inhalation Q6H PRN sob 05/10/21 10/31/24 History aerosol inhaler acetaminophen 325 mg capsule 325 mg PO ONCE PRN Pain 07/13/21 10/31/24 History (Tylenol) ibuprofen 400 mg tablet 400 mg PO Q8H PRN Pain 08/09/21 10/31/24 History esomeprazole magnesium 40 mg 40 mg PO DAILY 09/22/21 10/31/24 History capsule,delayed release (Nexium) cholecalciferol (vitamin D3) 25 25 mcg PO DAILY 03/23/22 10/31/24 History mcg (1,000 unit) capsule mometasone 50 mcg/actuation nasal 2 spray intranasal DAILY PRN 06/22/22 10/31/24 History spray (Nasonex) ALLERGIES clonazepam 0.5 mg tablet 0.5 mg PO PRN PRN Anxiety 11/04/22 10/31/24 History bupropion HCl 300 mg 24 hr tablet, 400 mg PO DAILY 12/28/23 10/31/24 History extended release cyclobenzaprine 5 mg tablet 5 mg PO QHS 06/11/24 10/31/24 History vilazodone 40 mg tablet 40 mg PO QDAY 06/11/24 10/31/24 History esketamine 84 mg (28 mg x 3) nasal See Rx Instructions intranasal 09/10/24 10/31/24 History spray .COMPLEX azathioprine 50 mg tablet 100 mg (2 x 50 mg) PO DAILY #60 10/24/24 10/31/24 Rx TABLETS celecoxib 100 mg capsule (Celebrex) 100 mg PO BID 10/31/24 10/31/24 History estradiol 0.05 mg/24 hr semiweekly 1 patch transdermal 2XW #24 ea 10/31/24 10/31/24 Rx transdermal patch (Vivelle-Dot) propranolol 80 mg capsule,24 100 mg PO QDAY 10/31/24 10/31/24 History hr,extended release Is last menstrual period known: No Post menopausal: No Patient : No : No Control Method: [facility] Medical History History of Crohn's disease Difficulty swallowing Depression Anxiety Easy bruising Gastric reflux Low serum IgE Normal Holter exam Postoperative wound seroma Abdominal pain Ventral incisional hernia without obstruction or gangrene Alcohol use History of renal disease Anemia Back pain Migraine headache Injury of head and neck History of hiatal hernia History of IBS Non-smoker CPAP (continuous positive airway pressure) dependence Chronic cough Shortness of breath on exertion Hx of echocardiogram History of stress test Cardiology follow-up encounter History of irregular heartbeat Ventral incisional hernia without obstruction or gangrene Diarrhea Constipation Sleep apnea History of severe acute respiratory syndrome coronavirus 2 (SARS-CoV-2) disease Depression with anxiety neck and back pain Knee pain Surgical History History of esophagogastroduodenosco py (EGD) History of placement of ear tubes S/P right hemicolectomy Hx of colonoscopy History of ventral hernia repair History of LAVH S/P laparoscopic assisted vaginal hysterectomy (LAVH) Hx of colonoscopy History of colectomy H/O prior ablation treatment History of dilatation and curettage History of eye surgery History of wisdom tooth extraction History of breast biopsy history cysto with stent insertion Hx of tubal ligation History of Family History Grandmother Atrial fibrillation Hypertension Mother Hypertension Mitral valve prolapse Grandfather Cancer Esophageal cancer Social History adopted: No household members: spouse and children housing: house number of children: 2 current occupational status: employed 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 [facility] 10-02-2024 [facility] -------- BRICE GOMEZ ([id number]) 1980 F Date Time Provider Department 10/02/24 TO LONGORIA FAMWS During your visit today, we recorded the following information about you: Christine Moranhel L, MA 10/02/2024 10:07 AM Signed Carotid, KAREN, Renal ultrasound ordered by PCP received from [facility] and scanned into EPIC. Please review and advise. View External Cardiology - Miscellaneous Cardiac [ID [id number]] View External Cardiology - Miscellaneous Cardiac [ID [id number]] View External Imaging - Ultrasound [ID [id number]] MICHAEL Murray Jordan L, DO 10/07/2024 1:38 PM Signed Please inform patient that her renal artery US and carotid artery US and her PVI/KAREN of her legs are all normal appearing DO Jose Roberto Gutierrez Amanda, RN 10/07/2024 2:52 PM Signed Called and left a voicemail for the Patient to call back and ask for a nurse to receive the providers message. DON Coker Laurie Lynn, LPN 10/07/2024 3:05 PM Signed Spoke with pt and information listed below given. Pt verbalizes understanding. Juliet Marte LPN Allergies As of Date: 10/02/2024 Noted Allergy Reaction CLINDAMYCIN 09/27/2016 16 - Unknown BEE STING 05/02/2011 4 - Hives Comments: Facial edema BIAXIN (CLARITHROMYCIN) 01/08/2014 2 - Rash Comments: Patient developed a pruritic rash 7 days into course of biaxin and flagyl for H pylori infection. No mucous membrane involvement, exfoliation, fevers or joint pain/swelling. CELEXA (CITALOPRAM) 02/14/2006 8 - GI Upset ENTEX (PHENYLEPHRINE-GUAIFENES IN) 02/14/2006 5 - Intolerance Comments: Tachycardia FLAGYL (METRONIDAZOLE HCL) 01/08/2014 2 - Rash Comments: Patient developed a pruritic rash 7 days into course of biaxin and flagyl for H pylori infection. No mucous membrane involvement, exfoliation, fevers or joint pain/swelling. KEFLEX (CEPHALEXIN) 05/11/2009 2 - Rash MINOCYCLINE 02/14/2006 4 - Hives PENICILLINS 03/14/2006 2 - Rash 9 - Itching Comments: Vishnu Mosqueda type reaction. Date Reviewed: 09/20/2024 Reviewed by: Bree Oliver LPN - Fully Assessed Reason for Visit: Results [95] Prescriptions as of 10/07/2024 - celecoxib (CELEBREX) 100 mg capsule Take 100 mg by mouth two times a day. - propranolol ER (INDERAL LA) 60 mg 24 hr capsule Take 1 capsule by mouth once daily. For BLOOD PRESSURE and headaches - esomeprazole (NEXIUM) 40 mg capsule Take 1 capsule by mouth two times a day before meals. 1/2 hr before meal. - vilazodone (VIIBRYD) 40 mg tablet Take 1 tablet by mouth once daily. - buPROPion XL (WELLBUTRIN XL) 300 mg 24 hr tablet Take 1 tablet by mouth once daily. - cyclobenzaprine (FLEXERIL) 10 mg tablet Take 1 tablet by mouth three times a day as needed for muscle spasm. - clonazePAM (KLONOPIN) 0.5 mg tablet Take 1 tablet by mouth at bedtime as needed for up to 30 days. - albuterol HFA (PROAIR HFA) 90 mcg/actuation inhaler Inhale 2 Puffs as instructed every 4 hours as needed. - scopolamine (TRANSDERM-SCOP) patch 1.5 mg/72 hr (delivers 1 mg over 3 days) Apply 1 Patch as directed every 72 hours. Apply patch to skin behind ear 4hrs prior to travel. - azaTHIOprine (IMURAN) 100 mg tablet Take 100 mg by mouth once daily. - Cholecalciferol, Vitamin D3, 25 mcg (1,000 unit) cap Take 25 mcg by mouth once daily. - mometasone (NASONEX) 50 mcg/actuation nasal spray Use 2 Sprays in the nose twice daily. - Fluticasone Furoate (FLONASE SENSIMIST) 27.5 mcg/actuation nasal spray Use 2 Sprays in each nostril once daily. - EPINEPHrine (EPIPEN) 0.3 mg/0.3 mL auto-injector Inject 0.3 mL subcutaneously as needed. Then seek medical attention immediately. - MULTI-VITAMIN ORAL Take by mouth. - cetirizine (ZYRTEC) 10 mg tablet Take 10 mg by mouth once daily. Meds Comments as of 01/24/2018: Prilosec 20 mg q day in AM most days Problem List As Of Date 10/02/2024 Noted Resolved Fibrosclerosis of breast [N60.39] 07/28/2015 Allergic rhinitis [J30.9] SUPERVIS OTHER NORMAL PREG [Z34.80] 08/24/2006 07/25/2008 Inflammatory disease of breast [N61.0] 07/10/2007 09/14/2012 Benign neoplasm of skin of trunk, except scrotu*02/19/2008 12/06/2013 Benign neoplasm of scalp and skin of neck [D23.*02/19/2008 12/06/2013 Benign neoplasm of skin of other and unspecifie*02/19/2008 12/06/2013 Benign neoplasm of skin of upper limb, includin*02/19/2008 12/06/2013 Scar condition and fibrosis of skin [L90.5] 02/19/2008 12/06/2013 Unspecified hypertrophic and atrophic condition*02/19/2008 12/06/2013 FOLLICULITIS///HAIR DISEASES NEC [L67.8, L73.8] 09/10/2008 12/06/2013 Pyoderma, unspecified [L08.0] 03/19/2009 12/06/2013 Neoplasm of uncertain behavior of skin [D48.5] 09/29/2009 07/28/2015 Other acne [L70.8] 09/29/2009 07/28/2015 Hidradenitis suppurativa [L73.2] 09/29/2009 07/28/2015 Keloid scar [L91.0] 09/29/2009 (more content not included)... Normal [facility] Ankle Brachial Indexon 10-01 Ankle Brachial Index [facility] [address] [place] [address] Ankle Brachial Index 10/01/24 0813 MR#: [id number] Acct: [id number] Name: BRICE GOMEZ Rep #: [id number] : 1980 44 From: Kendrick Mayberry MD Attending Dr: Dr. To Longoria DO Status: R EG CLI Ordering Dr: To Longoria DO Date: 10/01/24 Location: [facility] Sex: F C Admitted: Reason For Study: Abnormal foot color Procedure A bilateral lower extremity continuous wave Doppler with analog waveform analysis and ankle brachial indexes. Left Segmental Pressures Left brachial= 167mmHg. Left posterior tibial artery = 172mmHg. Left dorsalis pedis artery = 173mmHg. Left digit = 136 mmHg. The left dorsalis pedis waveforms are triphasic. The left posterior tibial artery waveforms are triphasic. Right Segmental Pressures Right brachial= 169mmHg. Right posterior tibial artery = 188mmHg. Right dorsalis pedis artery = 174mmHg. Right digit = 149 mmHg. The right dorsalis pedis waveforms are triphasic. The right posterior tibial artery waveforms are triphasic. Indices The right ankle brachial index by the dorsalis pedis is 1.03. The right ankle brachial index by the posterior tibial artery is 1.11. The right digital-brachial index is 0.88. The left ankle brachial index by the dorsalis pedis is 1.02. The left ankle brachial index by the posterior tibial artery is 1.02. The left digital-brachial index is 0.80. VL/Ankle Brachial Index Interpretation Summary Right KAREN 1.11, normal. TBI and Doppler/PVR waveforms of the right ankle normal at rest. Left KAREN 1.02, normal. TBI and Doppler/PVR waveforms of the left ankle normal at rest. Ordering Physician: To Longoria Referring Physician: TO LONGORIA DO Performed By: Samreen Davis T 10/01/241954 Date Kendrick Mayberry MD CC: Dr. To Longoria DO Date Dictated: 10/01/24812 Date Transcribed: 10/01/241954 Knee Bolter: Signed Normal [facility] Carotid Duplex Ultrasoundon 10-01-2024 Carotid Duplex Ultrasound [facility] Cardi[facility] Services [address] [place] [address] Carotid Duplex Ultrasound 10/01/2452 MR#: [id number] Acct: [id number] Name: BRICE GOMEZ Rep #: [id number] : 1980 44 From: Kendrick Mayberry MD Attending Dr: Dr. To Longoria, Status: R EG CLI Ordering Dr: To Longoria DO Date: 10/01/24 Location: [facility] Sex: F C Admitted: Reason For Study: HTN Rt. Velocities/BP Lt. Velocities/BP Prox CCA 57/19.2 cm/sec. Prox CCA 62.6/17.3 cm/sec. Mid CCA 60.7/15.4 cm/sec. Mid CCA 73/23 cm/sec. Dist CCA 61.7/22 cm/sec. Dist CCA 53.2/17.3 cm/sec. Prox ICA 62.6/19.2 cm/sec. Prox ICA 48.2/23.8 cm/sec. Mid ICA 112.1/47 cm/sec. Mid ICA 72.7/26.4 cm/sec. Dist ICA 81.4/36 cm/sec. Dist ICA 75/30.9 cm/sec. Rt. ICA/CCA = 1.38. Lt. ICA/CCA = 1.03. Prox ECA 52.2/10.7 cm/sec. Prox ECA 68.3/12.6 cm/sec. Rt. Vert. 41.9/11.6 cm/sec. Lt. Vert. 46.5/17.9 cm/sec. Right Extracranial There is intimal thickening but no significant atherosclerotic plaque noted in the right common carotid artery. There is intimal thickening but no significant atherosclerotic plaque noted in the right internal carotid artery. There is intimal thickening but no significant atherosclerotic plaque noted in the right external carotid artery. Antegrade flow is noted in the right vertebral artery. Left Extracranial There is intimal thickening but no significant atherosclerotic plaque noted in the left common carotid artery. There is intimal thickening but no significant atherosclerotic plaque noted in the left internal carotid artery. There is intimal thickening but no significant atherosclerotic plaque noted in the left external carotid artery. Antegrade flow is noted in the left vertebral artery. Procedure Carotid Duplex 33026. This is a Carotid Duplex examination using B-mode, color flow and specral Doppler. Exam performed in department. VL/Carotid Duplex Ultrasound Interpretation Summary Normal right extracranial internal carotid. Normal left extracranial internal carotid. Patent and antegrade vertebrals bilaterally. Ordering Physician: To Longoria Referring Physician: To Longoria Performed By: Samreen Davis RVT 10/01/241955 Date Kendrick Mayberry MD CC: Dr. To Longoria DO Date Dictated: 10/01/24851 Date Transcribed: 10/01/241955 Knee Bolter: Signed Normal [facility] Echo Completeon 10-01-2024 Echo Complete [facility] [address] [place] [address] Echo Complete 10/01/24 1253 MR#: [id number] Acct: [id number] Name: BRICE GOMEZ Rep #: [id number] : 1980 44 From: Alberto Bo MD Attending Dr: Dr. To Longoria DO Status: R EG CLI Ordering Dr: To Longoria DO Date: 10/01/24 Location: [facility] Sex: F C Admitted: Reason For Study: SOB, Elevated Blood Pressure Procedure This was a 2D Doppler, Color Flow transthoracic echocardiogram. Exam performed in department. Left Ventricle Normal LV size. Left ventricular systolic function is normal. The left ventricular ejection fraction is 55 %. No regional wall motion abnormalities noted. Right Ventricle Normal RV size. Normal systolic function. Atria Normal left atrium. Normal right atrium. Mitral Valve Normal mitral valve. Tricuspid Valve Normal tricuspid valve. Aortic Valve Normal aortic valve. Pulmonic Valve Normal pulmonic valve. Great Vessels Normal aortic root. The pulmonary artery is normal size. Inferior vena cava collapse with respiration. Pericardium/Pleural No pericardial effusion. MMode/2D Measurements Calculations LVIDd: 3.9 cm IVSd: 0.99 cm Ao root diam: 2.9 cm LVIDs: 3.0 cm LVPWd: 0.74 cm RVDd: 3.0 cm FS: 24.4 % LAV(MOD-bp): 47.5 ml LVAd ap4: 27.4 cm2 SV(MOD-sp4): 53.4 ml LAV(MOD-bp) Indexed: 28.9 ml/m2 LVLd ap4: 7.5 cm SI(MOD-sp4): 32.5 ml/m2 LAV(MOD-sp2): 36.7 ml EDV(MOD-sp4): 81.3 ml LAV(MOD-sp4): 49.8 ml EDV(sp4-el): 84.3 ml LVAs ap4: 13.7 cm2 LVLs ap4: 5.6 cm ESV(MOD-sp4): 27.9 ml ESV(sp4-el): 28.6 ml EF(MOD-sp4): 65.6 % EF(sp4-el): 66.1 % SV(sp4-el): 55.7 ml LA A4 area: 18.6 cm2 LA dimension(2D): 3.5 cm RA A4 area: 11.2 cm2 TAPSE: 1.6 cm Time Measurements MV dec time: 0.17 sec Doppler Measurements Calculations MV E max shakeel: 89.8 cm/sec Lat Peak E' Shakeel: 15.1 cm/sec Med Peak E' Shakeel: 10.7 cm/sec MV A max shakeel: 84.6 cm/sec E/E' lat: 5.9 E/E' med: 8.4 MV E/A: 1.1 MV V2 max: 103.0 cm/sec MV P1/2t max shakeel: 104.1 cm/sec Ao V2 max: 130.7 cm/sec MV max P.2 mmHg MV P1/2t: 60.3 msec Ao max P.8 mmHg MV V2 mean: 51.3 cm/sec Ao V2 mean: 84.2 cm/sec MV mean P.3 mmHg MV dec slope: 505.6 cm/sec2 Ao mean P.3 mmHg MV V2 VTI: 32.1 cm MVA(P1/2t): 3.6 cm2 Ao V2 VTI: 29.9 cm AV (velocity ratio): 0.86 LV V1 max: 104.3 cm/sec PA V2 max: 105.5 cm/sec TR max shakeel: 215.8 cm/sec LV V1 max P.3 mmHg TR max P.6 mmHg LV V1 mean P.3 mmHg LV V1 mean: 70.4 cm/sec LV V1 VTI: 25.7 cm ECHO/Echo Complete Interpretation Summary Normal LV size. Left ventricular systolic function is normal. The left ventricular ejection fraction is 55 %. Structurally normal valves. Ordering Physician: To Longoria Referring Physician: To Longoria Performed By: Cipriano Tang RCS 10/01/24 1720 Date Alberto Bo MD CC: Dr. To Longoria DO Date Dictated: 10/01/24 1253 Date Transcribed: 10/01/24 1720 Knee Bolter: Signed Normal [facility] Renal Artery Duplex Ultrasou ndon 10-01-2024 Renal Artery Duplex Ultrasound [facility] Cardiovascular Services [address] [place] [address] Renal Artery Duplex Ultrasound 10/01/24 0827 MR#: [id number] Acct: [id number] Name: BRICE GOMEZ Rep #: [id number] : 1980 44 From: Kendrick Mayberry MD Attending Dr: Dr. To Longoria DO Status: R EG CLI Ordering Dr: To Longoria DO Date: 10/01/24 Location: [facility] Sex: F C Admitted: Reason For Study: HTN Right Renal Artery Left Renal Artery Right renal artery ostium 89.1/23.3 Left renal artery 1, ostium RSV/EDV. 108.9/27.7 PSV/EDV. Right renal artery proximal Left renal artery 1, proximal 124.2/40.8 PSV/EDV. PSV/EDV 97.9/25.5 Right renal artery mid 128.1/44.1 Left renal artery 2, ostium PSV/EDV. 71.5/16.7 PSV/EDV. Right renal artery distal 127/40.8 Left renal artery 2, proximal PSV/EDV. PSV/EDV 100.1/27.7. Right RAR 1.84. Left renal artery mid 94.8/32.7 Right Renal Parenchyma PSV/EDV . Upper Pole Medula 35.8/12.7 Left renal artery distal 102.1/30.9 PSV/EDV. PSV/EDV. Right upper pole medulla EDR 0.4 . Left RAR 1.56. Right upper pole medulla R.I. Left Renal Parenchyma 0.64 . Left upper pole medulla 36.8/14.7 Upper Jimmy Cortx 13.5/5 PSV/EDV. PSV/EDV . Right upper pole cortex EDR 0.4 . Left upper pole medulla EDR 0.4 . Right upper pole cortex R.I. 0.63 . Left upper pole medulla R.I. 0.60 . Right lower Pole medulla 25.3/8.3 UP Cortex 23.3/7.9 PSV/EDV. PSV/EDV . Left upper pole cortex EDR 0.3 . Right lower pole medulla EDR 0.3 . Left upper pole cortex R.I. 0.66 . Right lower pole medulla R.I. Left lower Pole medulla 25.7/9.8 0.67 . PSV/EDV . Lower Pole Cortex 16.3/5.5 PSV/EDV. Left lower pole medulla EDR 0.4 . Right lower pole cortex EDR 0.3 . Left lower pole medulla R.I. 0.62 . Right lower pole cortex R.I. 0.66 . Lower Pole Cortx 17.7/6.1 PSV/EDV. Right Renal Hilar Left lower pole cortex EDR 0.3 . Right Hilar avg 72.5/23.9 PSV/EDV. Left lower pole cortex R.I. 0.66 . Right hilar acceleration time 40 Left Renal Hilar m/sec. LT Hilar avg 64/21.7 PSV/EDV . Right Renal Dimensions Left hilar acceleration time 40 Right kidney size 10.80 cm . m/sec. Right cortical dimension 1.63 cm . Left Renal Dimensions Left kidney size 10.33 cm . Left cortical dimension 1.34 cm . Aorta Proximal abdominal aorta 1.88 x 1.84 cm . Proximal abdominal aorta peak systolic velocity is 69.9 cm/sec . Distal abdominal aorta 1.21 x 1.22 cm . Distal abdominal aorta peak systolic velocity is 97.4 cm/sec . VL/Renal Artery Duplex Ultrasound Interpretation Summary Right renal artery patent with normal velocities and no evidence of stenosis. Left renal artery patent with normal velocities and no evidence of stenosis. Right renal vein patent. Left renal vein patent. Right kidney normal in size. Left kidney normal in size. Ordering Physician: To Longoria Referring Physician: To Longoria Performed By: Samreen Davis RVT 10/01/241953 Date Kendrick Mayberry MD CC: Dr. To Longoria DO Date Dictated: 10/01/24826 Date Transcribed: 10/01/241953 Knee Bolter: Signed Normal [facility] Testosterone, Total / Freeon 09-27-2024 TESTOSTER,FREE <.04 Abnormal 0.10-0.85 [facility] Comment on above: Order Comment: N Performed By: #### L 3300.1750, L3100.5310, L801.2600 ####[facility] [id number] [place] [place], [address] TESTOSTER,TOTAL < 3 Low 4-50 [facility] Comment on above: Order Comment: N Performed By: #### L 3300.1750, [id number], L801.2600 ####[facility] [id number] [place], [place], [id number] TESTOSTERONE,%F 1.35 Normal 0.50-2.80 [facility] Comment on above: Order Comment: N Result Comment: Perf ormed at: - [facility] [id number] Value Stream Manager: Natanael Felix PhD, Phone: [phone] Performed at: - [facility] [id number] Value Stream Manager: Darrius Lacy MD, Phone: [phone] Performed By: #### L 3300.1750, [id number], L801.2607 ####[facility] [id number] [place], [place], [id number] [facility] 09-24-2024 [facility] Telephone (FAMPWS) -------- BRICE GOMEZ ([id number]) 1980 F Date Time Provider Department 09/24/24 TO LONGORIA [facility] During your visit today, we recorded the following information about you: Tere Tellez MA 09/24/2024 11:26 AM Signed Pt had blood work done at [facility]. See attached. View External Labs - Miscellaneous Lab [ID [id number]] View External Labs - Miscellaneous Lab [ID [id number]] MICHAEL Blankenship Jordan L, DO 09/25/2024 9:24 PM Signed Please make sure patient knows to review her estradiol and progesterone labs with her [facility] for treatment DO Geoff Gutierrez Kathryn, MA 09/26/2024 11:42 AM Signed Notified of below via [employer]. MICHAEL Blankenship Barbara, DON 09/26/2024 2:58 PM Signed Left VM for pt to review her [employer] [facility] msg regarding her results and to call if questions. Allergies As of Date: 09/24/2024 Noted Allergy Reaction CLINDAMYCIN 09/27/2016 16 - Unknown BEE STING 05/02/2011 4 - Hives Comments: Facial edema BIAXIN (CLARITHROMYCIN) 01/08/2014 2 - Rash Comments: Patient developed a pruritic rash 7 days into course of biaxin and flagyl for H pylori infection. No mucous membrane involvement, exfoliation, fevers or joint pain/swelling. CELEXA (CITALOPRAM) 02/14/2006 8 - GI Upset ENTEX (PHENYLEPHRINE-GUAIFENES IN) 02/14/2006 5 - Intolerance Comments: Tachycardia FLAGYL (METRONIDAZOLE HCL) 01/08/2014 2 - Rash Comments: Patient developed a pruritic rash 7 days into course of biaxin and flagyl for H pylori infection. No mucous membrane involvement, exfoliation, fevers or joint pain/swelling. KEFLEX (CEPHALEXIN) 05/11/2009 2 - Rash MINOCYCLINE 02/14/2006 4 - Hives PENICILLINS 03/14/2006 2 - Rash 9 - Itching Comments: Vishnu Darrick type reaction. Date Reviewed: 09/20/2024 Reviewed by: Bree Oliver LPN - Fully Assessed Reason for Visit: external documentation [Other] Cmt: labs Prescriptions as of 09/26/2024 - celecoxib (CELEBREX) 100 mg capsule Take 100 mg by mouth two times a day. - propranolol ER (INDERAL LA) 60 mg 24 hr capsule Take 1 capsule by mouth once daily. For BLOOD PRESSURE and headaches - esomeprazole (NEXIUM) 40 mg capsule Take 1 capsule by mouth two times a day before meals. 1/2 hr before meal. - vilazodone (VIIBRYD) 40 mg tablet Take 1 tablet by mouth once daily. - buPROPion XL (WELLBUTRIN XL) 300 mg 24 hr tablet Take 1 tablet by mouth once daily. - cyclobenzaprine (FLEXERIL) 10 mg tablet Take 1 tablet by mouth three times a day as needed for muscle spasm. - clonazePAM (KLONOPIN) 0.5 mg tablet Take 1 tablet by mouth at bedtime as needed for up to 30 days. - albuterol HFA (PROAIR HFA) 90 mcg/actuation inhaler Inhale 2 Puffs as instructed every 4 hours as needed. - scopolamine (TRANSDERM-SCOP) patch 1.5 mg/72 hr (delivers 1 mg over 3 days) Apply 1 Patch as directed every 72 hours. Apply patch to skin behind ear 4hrs prior to travel. - azaTHIOprine (IMURAN) 100 mg tablet Take 100 mg by mouth once daily. - Cholecalciferol, Vitamin D3, 25 mcg (1,000 unit) cap Take 25 mcg by mouth once daily. - mometasone (NASONEX) 50 mcg/actuation nasal spray Use 2 Sprays in the nose twice daily. - Fluticasone Furoate (FLONASE SENSIMIST) 27.5 mcg/actuation nasal spray Use 2 Sprays in each nostril once daily. - EPINEPHrine (EPIPEN) 0.3 mg/0.3 mL auto-injector Inject 0.3 mL subcutaneously as needed. Then seek medical attention immediately. - MULTI-VITAMIN ORAL Take by mouth. - cetirizine (ZYRTEC) 10 mg tablet Take 10 mg by mouth once daily. Meds Comments as of 01/24/2018: Prilosec 20 mg q day in AM most days Problem List As Of Date 09/24/2024 Noted Resolved Fibrosclerosis of breast [N60.39] 07/28/2015 Allergic rhinitis [J30.9] SUPERVIS OTHER NORMAL PREG [Z34.80] 08/24/2006 07/25/2008 Inflammatory disease of breast [N61.0] 07/10/2007 09/14/2012 Benign neoplasm of skin of trunk, except scrotu*02/19/2008 12/06/2013 Benign neoplasm of scalp and skin of neck [D23.*02/19/2008 12/06/2013 Benign neoplasm of skin of other and unspecifie*02/19/2008 12/06/2013 Benign neoplasm of skin of upper limb, includin*02/19/2008 12/06/2013 Scar condition and fibrosis of skin [L90.5] 02/19/2008 12/06/2013 Unspecified hypertrophic and atrophic condition*02/19/2008 12/06/2013 FOLLICULITIS///HAIR DISEASES NEC [L67.8, L73.8] 09/10/2008 12/06/2013 Pyoderma, unspecified [L08.0] 03/19/2009 12/06/2013 Neoplasm of uncertain behavior of skin [D48.5] 09/29/2009 07/28/2015 Other acne [L70.8] 09/29/2009 07/28/2015 Hidradenitis suppurativa [L73.2] 09/29/2009 07/28/2015 Keloid scar [L91.0] 09/29/2009 07/28/2015 Hypertrophic scar [L91.0] 09/29/2009 07/28/2015 Depression [F32.A] 11/06/2009 Kidney stones [N20.0] 11/06/2009 Atypical nevus of lower leg [D22.70] 04/11/2012 07/28/2015 Atypical nevus of thigh [D22.70] 04/11/2012 07/28/20 (more content not included)... Normal [facility] PROGESTERONE 4317on 09-21-20 24 PROGESTERONE <0.1 Normal . [facility] Comment on above: Order Comment: N Result Comment: Foll icular phase 0.1 - 0.9 Luteal phase 1.8 - 23.9 Ovulation phase 0.1 - 12.0 First trimester 11.0 - 44.3 Second trimester 25.4 - 83.3 Third trimester 58.7 - 214.0 Postmenopausal 0.0 - 0.1 Performed at: [facility] [address] [id number] Value Stream Manager: Natanael Felix PhD, Phone: [phone] Performed By: #### L [id number], [id number], X141.7091 ####[facility] [id number] [place], [address] CNOVon 09-20-2024 CNOV Office Visit (FAMPWS ) -------- BRICE GOMEZ ([id number]) 1980 F Date Time Provider Department 09/20/24 9:00 AM TO LONGORIAPPAULETTE During your visit today, we recorded the following information about you: Temperature Pulse Respiration Blood pressure 97.4 degrees 80/minute 12/minute 133/83 Weight 68.9 kg To Longoria, DO 09/20/2024 5:41 PM Signed CC: Brice Gomez is a 43 year old female who presents to the office for follow up HPI: Blood pressure concerns, over the last few months she has noticed that her BLOOD PRESSURE has been increasing consistently. Denies any obvious symptoms of chest pressure or pain or dyspnea or dizziness/LH or syncope or edema. Has noticed consistency of headache though and long standing hx of migraine headaches. 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 She is also newly post menopausal since she had a hysterectomy and she is not on hormone replacement therapy, which she feels she likely needs. She is struggling with a lack of libido and mood irritability. She sees [facility] specialist at [facility] and is going to talk to specialist about these concerns. PAST MEDICAL HISTORY Diagnosis Date Abnormal uterine [...] airway disease Severe pre-eclampsia, condition or complication Driver general hospitalization Stone, kidney x2 Vitamin D [...] DANDC and ablation Dr. Raoul Rushing HERNIA PATCH,VENTRALEX,[id number] abdomen STEROTACTIC GUIDE BREAST BX 10/01/2012 u/s guidance of left breast VAGINAL HYSTERECTOMY right Ovary remains Current Outpatient Medications Medication Sig celecoxib (CELEBREX) 100 mg capsule Take 100 mg by mouth two times a day. esomeprazole (NEXIUM) 40 mg capsule Take 1 capsule by mouth two times a day before meals. 1/2 hr before meal. vilazodone (VIIBRYD) 40 mg tablet Take 1 tablet by mouth once daily. buPROPion XL (WELLBUTRIN XL) 300 mg 24 hr tablet Take 1 tablet by mouth once daily. cyclobenzaprine (FLEXERIL) 10 mg tablet Take 1 tablet by mouth three times a day as needed for muscle spasm. clonazePAM (KLONOPIN) 0.5 mg tablet Take 1 tablet by mouth at bedtime as needed for up to 30 days. albuterol HFA (PROAIR HFA) 90 mcg/actuation inhaler Inhale 2 Puffs as instructed every 4 hours as needed. scopolamine (TRANSDERM-SCOP) patch 1.5 mg/72 hr (delivers 1 mg over 3 days) Apply 1 Patch as directed every 72 hours. Apply patch to skin behind ear 4hrs prior to travel. azaTHIOprine (IMURAN) 100 mg tablet Take 100 mg by mouth once daily. Cholecalciferol, Vitamin D3, 25 mcg (1,000 unit) [...] attention immediately. MULTI-VITAMIN ORAL Take by mouth. cetirizine (ZYRTEC) 10 mg tablet Take 10 [...] mucous membrane involvement, exfoliation, fevers or joint (more content not included)... Normal [facility] Estradiolon 09-20-2024 ESTRADIOL 49.5 pg/mL Normal [facility] Comment on above: Result Comment: NORM AL REFERENCE RANGES FEMALE FOLLICULAR 21.4 - 164.8 pg/mL MID-CYCLE PEAK 49.9 - 367.2 pg/mL LUTEAL 40.2 - 259.0 pg/mL POST-MENOPAUSAL ON MHT <11.0 - 462.1 pg/mL NOT ON MHT <11.0 - 58.3 pg/mL MALE <11.0 - 52.5 pg/mL NOTE: [facility] HAS CONFIRMED THE DRUG FULVETRANT (FASLODEX) MAY CAUSE FALSELY ELEVATED ESTRADIOL RESULTS WHEN USING THIS TEST METHOD. IF PATIENT IS TAKING FULVESTRANT AN ALTERNATIVE METHOD SHOULD BE USED TO DETERMINE ESTRADIOL CONCENTRATION. Performed By: #### L 3300.1750, L3100.5310, L801.2600 ####[facility] [id number] [place], [address] Gastroenterology Visit Repor ton 09-10-2024 Gastroenterology Visit Report [facility]enter[facility] [address] [place] [address] OFFICE VISIT Date of Service: 09/10/24 MR#: [id number] Acct: [id number] Name: BRICE GOMEZ Rep #: [id number] : 1980 Provider: Pedrito Brock DO Age/Sex: 43/F Location: [facility] Status: Signed Intake Vital Signs 04/25/24 11:52 06/11/24 08:53 Height 5 ft 5 ft Intake Visit Reasons: 4 M FU Allergies cephalexin monohydrate (From Keflex) Allergy (Verified 06/11/24 08:53) Rash clarithromycin (From Biaxin) Allergy (Verified 06/11/24 08:53) Rash metronidazole (From Flagyl) Allergy (Verified 06/11/24 08:53) Rash minocycline Allergy (Verified 06/11/24 08:53) Rash Penicillins Allergy (Verified 06/11/24 08:53) VISHNU MOSQUEDA'S citalopram hydrobromide (From Celexa) Adverse Reaction (Verified 06/11/24 08:53) Nausea/Vom/Diarrhea Medications ???Medication ???Instructions ???Recorded ???Confirmed ???Type multivitamin with minerals 1 ea PO DAILY 09/02/19 09/10/24 History cetirizine 10 mg capsule (Zyrtec) 10 mg PO DAILY 09/30/20 09/10/24 History albuterol sulfate 90 mcg/actuation 1 inh inhalation Q6H PRN sob 05/10/21 09/10/24 History aerosol inhaler acetaminophen 325 mg capsule 325 mg PO ONCE PRN Pain 07/13/21 09/10/24 History (Tylenol) ibuprofen 400 mg tablet 400 mg PO Q8H PRN Pain 08/09/21 09/10/24 History esomeprazole magnesium 40 mg 40 mg PO DAILY 09/22/21 09/10/24 History capsule,delayed release (Nexium) cholecalciferol (vitamin D3) 25 25 mcg PO DAILY 03/23/22 09/10/24 History mcg (1,000 unit) capsule mometasone 50 mcg/actuation nasal 2 spray intranasal DAILY PRN 06/22/22 09/10/24 History spray (Nasonex) ALLERGIES clonazepam 0.5 mg tablet 0.5 mg PO PRN PRN Anxiety 11/04/22 09/10/24 History bupropion HCl 300 mg 24 hr tablet, 400 mg PO DAILY 12/28/23 09/10/24 History extended release cyclobenzaprine 5 mg tablet 5 mg PO QHS 06/11/24 09/10/24 History vilazodone 40 mg tablet 40 mg PO QDAY 06/11/24 09/10/24 History azathioprine 50 mg tablet 100 mg (2 x 50 mg) PO DAILY #60 06/18/24 09/10/24 Rx TABLETS esketamine 84 mg (28 mg x 3) nasal See Rx Instructions intranasal 09/10/24 09/10/24 History spray .COMPLEX PFSH Medical History History of Crohn's disease Difficulty swallowing Depression Anxiety Easy bruising Gastric reflux Low serum IgE Normal Holter exam Postoperative wound seroma Abdominal pain Ventral incisional hernia without obstruction or gangrene Alcohol use History of renal disease Anemia Back pain Migraine headache Injury of head and neck History of hiatal hernia History of IBS Non-smoker CPAP (continuous positive airway pressure) dependence Chronic cough Shortness of breath on exertion Hx of echocardiogram History of stress test Cardiology follow-up encounter History of irregular heartbeat Ventral incisional hernia without obstruction or gangrene Diarrhea Constipation Sleep apnea History of severe acute respiratory syndrome coronavirus 2 (SARS-CoV-2) disease Depression with anxiety neck and back pain Knee pain Surgical History History of esophagogastroduodenosco py (EGD) History of placement of ear tubes S/P right hemicolectomy Hx of colonoscopy History of ventral hernia repair History of LAVH S/P laparoscopic assisted vaginal hysterectomy (LAVH) Hx of colonoscopy History of colectomy H/O prior ablation treatment History of dilatation and curettage History of eye surgery History of wisdom tooth extraction History of breast biopsy history cysto with stent insertion Hx of tubal ligation History of Family History Grandmother Atrial fibrillation Hypertension Mother Hypertension Mitral valve prolapse Grandfather Cancer Esophageal cancer Social History adopted: No household members: spouse and children housing: house number of children: 2 current occupational status: employed 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 occupational exposures/hazards: Yes pets and animals: Yes leisure activities: exercise and reading Smoking Status: Never smoker alcohol intake: current alcohol intake frequency: a few times a month substance use type: does not use caffeine: Yes Type: other Number of servings: 1 what type of physical activity do you participate in: walking and bicycling frequency: 3-4 times per week seatbelt use: always do you feel safe at home: Yes additional social history: [employer] 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 PMH post COVID myocarditis; anxiety/depr (more content not included)... Normal [facility] Absolute lymphocyte countOrd ered By: Pedrito Brock on 01-19-2024 Lymphocytes Auto (Unsp spec) [#/Vol] 1.60 10*3/uL 0.83-4.51 [facility] Automated lymphocyte count a s percentage of total leukocytesOrdered By: Pedrito Brock on 01-19-2024 Lymphocytes/100 WBC Auto (Unsp spec) 33.4 % 19-41 [facility] Basophil percentageOrdered B y: Pedrito Brock on 01-19-2024 Basophils/100 WBC (Bld) 0.6 % 0-1 [facility] Eosinophils/100 WBC (Bld) 3.1 % 0-5 [facility] Hemoglobin (Bld) [Mass/Vol] 13.1 g/dL 12.0-15.0 [facility] Monocytes/100 WBC (Bld) 6.1 % 0-10 [facility] Neutrophils (Bld) [#/Vol] 2.7 10*3/uL 2.0-7.7 [facility] Neutrophils/100 WBC (Bld) 56.6 % 47-70 [facility] WBC (Bld) [#/Vol] 4.8 10*3/uL 4.4-11.0 [facility] Determination of erythrocyte mean corpuscular volume (MCV)Ordered By: Pedrito Brock on 01-19-2024 MCV (RBC) [Entitic vol] 98.5 fL 81-99 [facility] Erythrocyte distribution wid th ratioOrdered By: Pedritoabimael Brock on 01-19-2024 Erythrocyte distribution width (RBC) [Ratio] 13.9 % 11.6-14.6 [facility] Erythrocyte distribution wid th standard deviationOrdered By: Pedritoabimael Brock on 01-19-2024 Erythrocyte distribution width (RBC) [Entitic vol] 50.4 fL 35.1-43.9 [facility] Hematocrit Auto (Bld) [Volum e fraction]Ordered By: Pedrito Brock on 01-19-2024 Hematocrit (Bld) [Volume fraction] 40.2 % 37-47 [facility] Immature granulocytes/100 WB C Auto (Bld)Ordered By: Pedrito Brock on 01-19-2024 Immature granulocytes/100 WBC (Bld) 0.200 % 0.0-0.9 [facility] Comment on above: IG% - Immature Granu locytes (promyelocytes, myelocytes and metamyelocytes) > 1% indicates that a LEFT SHIFT is Present. Laboratory - Hematology and Cell countsOrdered By: Pedrito Brock on 01-19-2024 MCH (RBC) [Entitic mass] 32.1 pg 27.0-32.0 [facility] MCHC (RBC) [Mass/Vol] 32.6 g/dL 32-36 [facility] Nucleated RBC/100 WBC (Bld) [Ratio] 0 % 0-5 [facility] Platelet mean volume (Bld) [Entitic vol] 10.6 fL 6.2-12.0 [facility] Platelets (Bld) [#/Vol] 257 10*3/uL 150-450 [facility] RBC Auto (Bld) [#/Vol]Ordere d By: Pedrito Brock on 01-19-2024 RBC (Bld) [#/Vol] 4.08 10*6/uL 4.2-5.4 [facility] Qualitative QuantiFERON-TB g old in tube testOrdered By: Pedrito Brock on 01-05-2024 M. tuberculosis tuberculin stim IFN-g Ql (Bld) 0 IU/mL . [facility] Thin prep Papanicolaou smear with manual screeningOrdered By: Pedrito Brock on 01-05-2024 Thin prep Papanicolaou smear with manual screening Comment . [facility] Comment on above: QuantiFERON-TB Gold Plus is a qualitative indirect test forM tuberculosis infection (including disease) and isintended for use in conjunction with risk assessment,radiography, and other medical and diagnostic evaluations.The QuantiFERON-TB Gold Plus result is determined bysubtracting the Nil value from either TB antigen (Ag)value. The Mitogen tube serves as a control for the test. Thin prep Papanicolaou smear with manual screening 0 IU/mL . [facility] Thin prep Papanicolaou smear with manual screening > 10.00 IU/mL . [facility] Thin prep Papanicolaou smear with manual screening Negative Negative [facility] Comment on above: No response to M tub erculosis antigens detected.Infection with M tuberculosis is unlikely, but high riskindividuals should be considered for additional testing(ATS/IDSA/CDC Clinical Practice Guidelines, 2017). Thereference range is an Antigen minus Nil result of <0.35IU/mL.The specimen received for QuantiFERON testing was incubatedby the ordering institution. Specific procedures outlinedin our Directory of Services and in the package insert forthe QuantiFERON Gold (In Tube) test must be followed toenable for proper stimulation of cells for the productionof interferon gamma. Chemiluminescence immunoassaymethodologyPerformed at: [facility] [id number] Director: Natanael Felix PhD, Phone: [phone] Absolute lymphocyte countOrd ered By: Pedrito Brock on 12-29-2023 Lymphocytes Auto (Unsp spec) [#/Vol] 1.52 10*3/uL 0.83-4.51 [facility] Albumin Elph [Mass/Vol]Order ed By: Pedrito Brock on 12-29-2023 Albumin [Mass/Vol] 4.3 g/dL 2.9-4.4 [facility] Automated lymphocyte count a s percentage of total leukocytesOrdered By: Pedrito Brock on 12-29-2023 Lymphocytes/100 WBC Auto (Unsp spec) 36.3 % 19-41 [facility] Basophil percentageOrdered B y: Pedrito Brock on 12-29-2023 Amylase [Catalytic activity/Vol] 52 U/L 25-115 [facility] Basophils/100 WBC (Bld) 0.7 % 0-1 [facility] Bilirubin [Mass/Vol] 0.70 mg/dL 0.20-1.00 [facility] Comment on above: For patients on eltr ombopag therapy, use of [facility] [place] TBIL is not recommended. Chloride [Moles/Vol] 109 mmol/L 98-107 [facility] Cholesterol [Mass/Vol] 217 mg/dL <200 [facility] Comment on above: <200 mg/dL Desirable 200-240 mg/dL Borderline >240 mg/dL High Risk Eosinophils/100 WBC (Bld) 3.8 % 0-5 [facility] Glucose [Mass/Vol] 97 mg/dL 74-106 [facility] Hemoglobin (Bld) [Mass/Vol] 13.2 g/dL 12.0-15.0 [facility] LDH [Catalytic activity/Vol] 174 U/L 84-246 [facility] Monocytes/100 WBC (Bld) 6.7 % 0-10 [facility] Neutrophils (Bld) [#/Vol] 2.2 10*3/uL 2.0-7.7 [facility] Neutrophils/100 WBC (Bld) 52.3 % 47-70 [facility] Potassium [Moles/Vol] 3.5 mmol/L 3.5-5.1 [facility] Protein [Mass/Vol] 7.5 g/dL 6.4-8.2 [facility] Sodium [Moles/Vol] 142 mmol/L 136-145 [facility] Triglyceride [Mass/Vol] 53 mg/dL <[address] [facility] Comment on above: The drugs N-Acetylcy steine and Metamizole may falsely depress this assay.Serum Triglycerides Reference Interval Normal <150 mg/dL Borderline high 150 - 199 mg/dL High 200 - 499 mg/dL Very High > or = 500 mg/dL WBC (Bld) [#/Vol] 4.2 10*3/uL 4.4-11.0 [facility] Chocolate IgE serumOrdered B y: Pedrito Friend on 12-29-2023 Chocolate IgE Qn (S) <0.10 kU/L Class 0 [facility] Determination of erythrocyte mean corpuscular volume (MCV)Ordered By: Pedrito Friend on 12-29-2023 MCV (RBC) [Entitic vol] 98.3 fL 81-[address] [facility] Erythrocyte distribution wid th ratioOrdered By: Pedrito Friend on 12-29-2023 Erythrocyte distribution width (RBC) [Ratio] 13.8 % 11.6-14.6 [facility] Erythrocyte distribution wid th standard deviationOrdered By: Pedrito Brock on 12-29-2023 Erythrocyte distribution width (RBC) [Entitic vol] 50.2 fL 35.1-43.9 [facility] Hematocrit Auto (Bld) [Volum e fraction]Ordered By: Pedrito Brock on 12-29-2023 Hematocrit (Bld) [Volume fraction] 40.9 % 37-47 [facility] Hemoglobin in reticulocytes (mass per reticulocyte)Ordered By: Pedrito Brock on 12-29-2023 Hemoglobin (Reticulocytes) [Entitic mass] 37.0 pg 30-35 [facility] Immature granulocytes/100 WB C Auto (Bld)Ordered By: Pedrito Brock on 12-29-2023 Immature granulocytes/100 WBC (Bld) 0.200 % 0.0-0.9 [facility] Comment on above: IG% - Immature Granu locytes (promyelocytes, myelocytes and metamyelocytes) > 1% indicates that a LEFT SHIFT is Present. Interpretation of serum or p lasma protein pattern by immunofixation (narrative resultOrdered By: Pedrito Brock on 12-29-2023 Protein Fractions Immunofixation Jimmy [Interp] Not Observed g/dL Not Observed [facility] Iron measurement (mass/mass) Ordered By: Pedrito Brock on 12-29-2023 Iron (Unsp spec) [Mass/Mass] 74 ug/dL 50-170 [facility] Laboratory - Chemistry and C hemistry - challengeOrdered By: Pedrito Brock on 12-29-2023 Albumin/Globulin [Mass ratio] 1.2 {ratio} 0.9-2.4 [facility] ALP [Catalytic activity/Vol] 71 U/L 45-117 [facility] ALT [Catalytic activity/Vol] 22 U/L 13-56 [facility] Cholesterol in HDL [Mass/Vol] 67 mg/dL >40 [facility] Comment on above: The drugs N-Acetylcy steine and Metamizole may falsely depress this assay. Reference Range HDL <40 mg/dL Low HDL Cholesterol HDL >or= 60 mg/dL High HDL Cholesterol Cholesterol in LDL [Mass/Vol] 139 mg/dL 0-130 [facility] CO2 [Moles/Vol] 27.0 mmol/L 21.0-32.0 [facility] Lipase [Catalytic activity/Vol] 46 U/L 13-75 [facility] Comment on above: Please note:LIPASE r evised reference range effective 23. New Lipase methodology. Expected to produce lower values than the previous assay method. NEW Reference Range: 13 - 75 U/L Urea nitrogen/Creatinine [Mass ratio] 17.9 mg/mg 10-20 [facility] Laboratory - Hematology and Cell countsOrdered By: Pedrito Brock on 12-29-2023 MCH (RBC) [Entitic mass] 31.7 pg 27.0-32.0 [facility] MCHC (RBC) [Mass/Vol] 32.3 g/dL 32-36 [facility] Nucleated RBC/100 WBC (Bld) [Ratio] 0 % 0-5 [facility] Platelet mean volume (Bld) [Entitic vol] 10.4 fL 6.2-12.0 [facility] Platelets (Bld) [#/Vol] 249 10*3/uL 150-450 [facility] Laboratory - Miscellaneous t estsOrdered By: Pedrito Brock on 12-29-2023 Service comment (Unsp spec) [Interp] Comment . [facility] Comment on above: Levels of Specific I gE Class Description of Class ----- < 0.10 0 Negative 0.10 - 0.31 0/I Equivocal/Low 0.32 - 0.55 I Low 0.56 - 1.40 II Moderate 1.41 - 3.90 III High 3.91 - 19.00 IV Very High 19.01 - 100.00 V Very High >100.00 Very High No Panel InformationOrdered By: Pedrito Brock on 12-29-2023 Addendum Document Comment . [facility] Comment on above: Protein electrophore sis scan will follow via computer,mail, or eyelet maker delivery. Endomysial IgA Antibody [facility] Estimated GFR (MDRD) Amer 87 mL/min >60 [facility] Comment on above: GFR Calc Estimated GFR (MDRD) Non-Af Amer 72 mL/min >60 [facility] Comment on above: Non- GFR Calc Immature Reticulocyte Fraction 12.50 % 3.00-15.90 [facility] Immunoglobulin E 2 IU/mL 6-495 [facility] Comment on above: Performed at: [facility] [address] [id number] Director: Natanael Felix PhD, Phone: [id number] at: [facility] [id number] Director: Darrius Lacy MD, Phone: [phone] Immunoglobulin G4 1 mg/dL 2-96 [facility] Immunoglobulin M 44 mg/dL 26-217 [facility] Mussel Allergen IgE Antibody <0.10 kU/L Class 0 [facility] Shrimp Allergen <0.10 kU/L Class 0 [facility] Total Iron Binding Capacity 353 ug/dL 250-450 [facility] VLDL Cholesterol 11 mg/dL 5-40 [facility] RBC Auto (Bld) [#/Vol]Ordere d By: Pedrito Brock on 12-29-2023 RBC (Bld) [#/Vol] 4.16 10*6/uL 4.2-5.4 [facility] Reticulocytes Auto (Bld) [#/ Vol]Ordered By: Pedrito Brock on 12-29-2023 Reticulocytes/100 RBC (Bld) 1.40 % 0.5-1.5 [facility] Serum IgG subclass 1 measure ment (mass/volume)Ordered By: Pedrito Brock on 12-29-2023 IgG subclass 1 (S) [Mass/Vol] 613 mg/dL 248-810 [facility] Serum IgG subclass 2 measure ment (mass/volume)Ordered By: Pedrito Brock on 12-29-2023 IgG subclass 2 (S) [Mass/Vol] 279 mg/dL 130-555 [facility] Serum IgG subclass 3 measure ment (mass/volume)Ordered By: Pedrito Brock on 12-29-2023 IgG subclass 3 (S) [Mass/Vol] 14 mg/dL 15-102 [facility] Serum [id number] measu rement by electrophoresisOrdered By: Pedrito Brock on 12-29-2023 Alpha 1 globulin Elph [Mass/Vol] 0.2 g/dL 0.0-0.4 [facility] Alpha 1 globulin Elph [Mass/Vol] 0.5 g/dL 0.4-1.0 [facility] Serum beef IgE antibody assa y (units/volume)Ordered By: Pedrito Brock on 12-29-2023 Beef IgE Qn (S) <0.10 kU/L Class 0 [facility] Serum codfish IgE antibody a ssay (units/volume)Ordered By: Pedrito Brock on 12-29-2023 Codfish IgE Qn (S) <0.10 kU/L Class 0 [facility] Serum corn IgE antibody assa y (units/volume)Ordered By: Pedrito Brock on 12-29-2023 Howells IgE Qn (S) <0.10 kU/L Class 0 [facility] Serum cow milk IgE antibody assay (units/volume)Ordered By: Pedrito Brock on 12-29-2023 Cow milk IgE Qn (S) <0.10 kU/L Class 0 [facility] Serum globulin measurement ( mass/volume)Ordered By: Pedrito Brock on 12-29-2023 Globulin (S) [Mass/Vol] 2.6 g/dL 2.2-3.[address] [facility] Serum or plasma IgA measurem ent (mass/volume)Ordered By: Pedrito Brock on 12-29-2023 IgA [Mass/Vol] 218 mg/dL 87-352 [facility] Serum or plasma IgG measurem ent (mass/volume)Ordered By: Pedrito Brock on 12-29-2023 IgG [Mass/Vol] 967 mg/dL [id number] [facility] IgG [Mass/Vol] Not Reportable [facility] Serum or plasma beta globuli n measurement by electrophoresis (mass/volume)Ordered By: Pedrito Brock on 12-29-2023 Beta globulin Elph [Mass/Vol] 1.0 g/dL 0.7-1.3 [facility] Serum or plasma calcium zheng urement (mass/volume)Ordered By: Pedrito Brock on 12-29-2023 Calcium [Mass/Vol] 9.1 mg/dL 8.5-10.1 [facility] Serum or plasma creatinine m easurement (mass/volume)Ordered By: Pedrito Brock on 12-29-2023 Creatinine [Mass/Vol] 0.90 mg/dL 0.55-1.02 [facility] Comment on above: The validity of the calculated GFR & GFRAA in patients over 70 years has not been determined. Clinical correlation is essential. Serum or plasma gamma globul in measurement by electrophoresis (mass/volume)Ordered By: Pedrito Brock on 12-29-2023 Gamma globulin Elph [Mass/Vol] 0.8 g/dL 0.4-1.8 [facility] Serum or plasma immunoelectr ophoresis interpretation (nominal result)Ordered By: Pedrito Brock on 12-29-2023 Interpretation IEP [Interp] Comment . [facility] Comment on above: No monoclonality det ected. Serum or plasma thyroid stim ulating hormone (TSH) measurement (units/volume)Ordered By: Pedrito Brock on 12-29-2023 TSH Qn 1.10 uIU/mL 0.358-3.74 [facility] Serum or plasma urea nitroge n measurement (mass/volume)Ordered By: Pedrito Brock on 12-29-2023 Urea nitrogen [Mass/Vol] 16 mg/dL 7-18 [facility] Serum peanut IgE antibody as say (units/volume)Ordered By: Pedrito Brock on 12-29-2023 Peanut IgE Qn (S) <0.10 kU/L Class 0 [facility] Serum pork IgE antibody assa y (units/volume)Ordered By: Pedrito Brock on 12-29-2023 Pork IgE Qn (S) <0.10 kU/L Class 0 [facility] Serum salmon IgE antibody as say (units/volume)Ordered By: Pedrito Brock on 12-29-2023 Burtrum IgE Qn (S) <0.10 kU/L Class 0 [facility] Serum soybean IgE antibody a ssay (units/volume)Ordered By: Pedrito Brock on 12-29-2023 Soybean IgE Qn (S) <0.10 kU/L Class 0 [facility] Serum tissue transglutaminas e IgA antibody assay (units/volume)Ordered By: Pedrito Brock on 12-29-2023 tTG IgA Qn (S) <2 U/mL 0-3 [facility] Comment on above: Negative 0 - 3 Weak Positive 4 - 10 Positive >10 Tissue Transglutaminase (tTG) has been identified as the endomysial antigen. Studies have demonstr- ated that endomysial IgA antibodies have over 99% specificity for gluten sensitive enteropathy. Serum tuna IgE antibody assa y (units/volume)Ordered By: Pedrito Brock on 12-29-2023 Tuna IgE Qn (S) <0.10 kU/L Class 0 [facility] Serum wheat IgE antibody ass ay (units/volume)Ordered By: Pedrito Brock on 12-29-2023 Wheat IgE Qn (S) <0.10 kU/L Class 0 [facility] Serum whole egg IgE antibody assay (units/volume)Ordered By: Pedrito Brock on 12-29-2023 Whole Egg IgE Qn (S) <0.10 kU/L Class 0 [facility] Comment on above: Performed at: [address] [id number] Director: Darrius Lacy MD, Phone: [phone] Thin prep Papanicolaou smear with manual screeningOrdered By: Pedrito Brock on 12-29-2023 Thin prep Papanicolaou smear with manual screening 4.1 g/dL 3.2-5.0 [facility] Thin prep Papanicolaou smear with manual screening 12 U/L 15-37 [facility] Thin prep Papanicolaou smear with manual screening 6 5-15 [facility] Thin prep Papanicolaou smear with manual screening 1.7 0.7-1.7 [facility] Total protein bloodOrdered B y: Pedrito Brock on 12-29-2023 Protein [Mass/Vol] 6.9 g/dL 6.0-8.5 [facility] Whole blood hemoglobin A1c/t otal hemoglobin ratio (mass fraction)Ordered By: Pedrito Brock on 12-29-2023 HbA1c (Bld) [Mass fraction] 5.0 % 3.8-5.6 [facility] Comment on above: Normal < 5.7 % Predi abetic 5.7 - 6.4 % Diabetic >or= 6.5 % Please note range changes. No Panel InformationOrdered By: Pedrito Brock on 12-07-2023 Stool Calprotectin 72 ug/g 0-120 [facility] Comment on above: Concentration Interp retation Follow-Up< 5 - 50 ug/g Normal None>50 -120 ug/g Borderline Re-evaluate in 4-6 weeks >120 ug/g Abnormal Repeat as clinically indicatedPerformed at: - [facility] [address] [id number] Director: Darrius Lacy MD, Phone: [phone] Stool lactoferrin detection by immunoassayOrdered By: Pedrito Brock on 12-07-2023 Lactoferrin IA Ql (Stl) [facility] Laboratory - Chemistry and C hemistry - challengeOrdered By: Geri Ng on 09-05-2023 Free T4 [Mass/Vol] 1.10 ng/dL 0.76-1.46 [facility] No Panel InformationOrdered By: Geri Ng on 09-05-2023 Follicle Stimulating Hormone 89.4 mIU/mL [facility] Comment on above: NORMAL REFERENCE RAN GES FEMALE FOLLICULAR 2.3 - 12.6 mIU/mL MID-CYCLE PEAK 5.2 - 17.5 mIU/mL LUTEAL 1.7 - 12.9 mIU/mL POST-MENOPAUSAL ON MHT 5.9 - 72.8 mIU/mL NOT ON MHT 12.7 - 132.2 mlU/mL MALE 0.7 - 10.8 mIU/mL Thyroid Stimulating Hormone (TSH) 0.37 uIU/mL 0.358-3.74 [facility] Serum or plasma estradiol (E 2) measurement (mass/volume)Ordered By: Geri Ng on 09-05-2023 E2 [Mass/Vol] 18.1 pg/mL [facility] Comment on above: NORMAL REFERENCE RAN GES FEMALE FOLLICULAR 21.4 - 164.8 pg/mL MID-CYCLE PEAK 49.9 - 367.2 pg/mL LUTEAL 40.2 - 259.0 pg/mL POST-MENOPAUSAL ON MHT <11.0 - 462.1 pg/mL NOT ON MHT <11.0 - 58.3 pg/mL MALE <11.0 - 52.5 pg/mL NOTE:[employer] HAS CONFIRMED THE DRUG FULVETRANT (FASLODEX) MAY CAUSE FALSELY ELEVATED ESTRADIOL RESULTS WHEN USING THIS TEST METHOD. IF PATIENT IS TAKING FULVESTRANT AN ALTERNATIVE METHOD SHOULD BE USED TO DETERMINE ESTRADIOL CONCENTRATION. Serum or plasma thyroperoxid ase antibody assay (units/volume)Ordered By: Geri Ng on 09-05-2023 TPO Ab Qn 14 [IU]/mL 0-34 [facility] Comment on above: Performed at: [address] Director: Natanael Felix PhD, Phone: [phone] Absolute lymphocyte countOrd ered By: Pedrito Brock on 08-23-2023 Lymphocytes Auto (Unsp spec) [#/Vol] 2.07 10*3/uL 0.83-4.51 [facility] Basophil percentageOrdered B y: Pedrito Brock on 08-23-2023 Basophils/100 WBC (Bld) 0.6 % 0-1 [facility] Bilirubin [Mass/Vol] 0.80 mg/dL 0.20-1.00 [facility] Comment on above: For patients on eltr ombopag therapy, use of [place] TBIL is not recommended. Chloride [Moles/Vol] 109 mmol/L 98-107 [facility] Eosinophils/100 WBC (Bld) 2.5 % 0-5 [facility] Glucose [Mass/Vol] 98 mg/dL 74-106 [facility] Neutrophils (Bld) [#/Vol] 2.5 10*3/uL 2.0-7.7 [facility] Neutrophils/100 WBC (Bld) 48.6 % 47-70 [facility] Potassium [Moles/Vol] 3.3 mmol/L 3.5-5.1 [facility] Protein [Mass/Vol] 7.5 g/dL 6.4-8.2 [facility] Sodium [Moles/Vol] 140 mmol/L 136-145 [facility] WBC (Bld) [#/Vol] 5.2 10*3/uL 4.4-11.0 [facility] Blood erythrocytes count (nu mber/volume)Ordered By: Pedrito Brock on 08-23-2023 RBC (Bld) [#/Vol] 4.25 10*6/uL 4.2-5.4 [facility] Blood hemoglobin measurement (mass/volume)Ordered By: Pedrito Brock on 08-23-2023 Hemoglobin (Bld) [Mass/Vol] 12.9 g/dL 12.0-15.0 [facility] Blood lymphocytes/100 leukoc ytesOrdered By: Pedrito Brock on 08-23-2023 Lymphocytes/100 WBC (Bld) 39.8 % 19-41 [facility] Blood monocytes/100 leukocyt esOrdered By: Pedrito Brock on 08-23-2023 Monocytes/100 WBC (Bld) 8.3 % 0-10 [facility] Blood platelet mean volumeOr dered By: Pedrito Brock on 08-23-2023 Platelet mean volume (Bld) [Entitic vol] 10.9 fL 6.2-12.0 [facility] Determination of erythrocyte mean corpuscular volume (MCV)Ordered By: Pedrito Brock on 08-23-2023 MCV (RBC) [Entitic vol] 95.5 fL 81-99 [facility] Erythrocyte sedimentation ra teOrdered By: Pedrito Brock on 08-23-2023 ESR (Bld) [Velocity] 2 mm/h 0-30 [facility] Hematocrit Auto (Bld) [Volum e fraction]Ordered By: Pedrito Brock on 08-23-2023 Hematocrit (Bld) [Volume fraction] 40.6 % 37-47 [facility] Laboratory - Chemistry and C hemistry - challengeOrdered By: Pedrito Brock on 08-23-2023 ALP [Catalytic activity/Vol] 70 U/L 45-117 [facility] ALT [Catalytic activity/Vol] 22 U/L 13-56 [facility] CO2 [Moles/Vol] 26.0 mmol/L 21.0-32.0 [facility] Globulin (S) [Mass/Vol] 3.2 g/dL 2.2-4.2 [facility] Urea nitrogen/Creatinine [Mass ratio] 24.2 mg/mg 10-20 [facility] Laboratory - Hematology and Cell countsOrdered By: Pedrito Brock on 08-23-2023 Erythrocyte distribution width (RBC) [Entitic vol] 47.8 fL 35.1-43.9 [facility] Erythrocyte distribution width (RBC) [Ratio] 13.5 % 11.6-14.6 [facility] Immature granulocytes/100 WBC (Bld) 0.200 % 0.0-0.9 [facility] Comment on above: IG% - Immature Granu locytes (promyelocytes, myelocytes and metamyelocytes) > 1% indicates that a LEFT SHIFT is Present. MCH (RBC) [Entitic mass] 30.4 pg 27.0-32.0 [facility] Nucleated RBC/100 WBC (Bld) [Ratio] 0 % 0-5 [facility] MCHC Auto (RBC) [Mass/Vol]Or dered By: Pedrito Brock on 08-23-2023 MCHC (RBC) [Mass/Vol] 31.8 g/dL 32-36 [facility] No Panel InformationOrdered By: Pedrito Brock on 08-23-2023 Stool Calprotectin 310 ug/g 0-120 [facility] Comment on above: Concentration Interp retation Follow-Up< 5 - 50 ug/g Normal None>50 -120 ug/g Borderline Re-evaluate in 4-6 weeks >120 ug/g Abnormal Repeat as clinically indicatedPerformed at: - [facility] [id number] Director: Darrius Lacy MD, Phone: [phone] Estimated GFR (MDRD) Amer 86 mL/min >60 [facility] Comment on above: GFR Calc Estimated GFR (MDRD) Non-Af Amer 71 mL/min >60 [facility] Comment on above: Non- GFR Calc Platelets bldOrdered By: Justin Brock on 08-23-2023 Platelets (Bld) [#/Vol] 233 10*3/uL 150-450 [facility] Serum or plasma C reactive p rotein measurement (mass/volume)Ordered By: Pedrito Brock on 08-23-2023 CRP [Mass/Vol] mg/L 0.0-3.0 [facility] Comment on above: C-Reactive Protein ( CRP) provides useful information for thediagnosis, therapy and monitoring of inflammatory processesand associated diseases. For the evaluation of Relative Riskfor Cardiovascular Disease, a High Sensitivity CRP (HSCRP)should be ordered. Serum or plasma albumin zheng urement (mass/volume)Ordered By: Pedrito Brock on 08-23-2023 Albumin [Mass/Vol] 4.3 g/dL 3.2-5.0 [facility] Serum or plasma albumin/glob ulin mass ratioOrdered By: Pedrito Brock on 08-23-2023 Albumin/Globulin [Mass ratio] 1.3 {ratio} 0.9-2.4 [facility] Serum or plasma calcium zheng urement (mass/volume)Ordered By: Pedrito Brock on 08-23-2023 Calcium [Mass/Vol] 9.0 mg/dL 8.5-10.1 [facility] Serum or plasma creatinine m easurement (mass/volume)Ordered By: Pedrito Brock on 08-23-2023 Creatinine [Mass/Vol] 0.91 mg/dL 0.55-1.02 [facility] Comment on above: The validity of the calculated GFR & GFRAA in patients over 70 years has not been determined. Clinical correlation is essential. Serum or plasma urea nitroge n measurement (mass/volume)Ordered By: Pedrito Brock on 08-23-2023 Urea nitrogen [Mass/Vol] 22 mg/dL 7-18 [facility] Stool lactoferrin detection by immunoassayOrdered By: Pedrito Brock on 08-23-2023 Lactoferrin IA Ql (Stl) [facility] Lactoferrin IA Ql (Stl) [facility] Thin prep Papanicolaou smear with manual screeningOrdered By: Pedrito Brock on 08-23-2023 Thin prep Papanicolaou smear with manual screening 13 U/L 15-37 [facility] Thin prep Papanicolaou smear with manual screening 5 5-15 [facility] Absolute lymphocyte countOrd ered By: Pedrito Brock on 04-18-2023 Lymphocytes Auto (Unsp spec) [#/Vol] 1.71 10*3/uL 0.83-4.51 [facility] Basophil percentageOrdered B y: Pedrito Brock on 04-18-2023 Basophils/100 WBC (Bld) 1.1 % 0-1 [facility] Bilirubin [Mass/Vol] 0.80 mg/dL 0.20-1.00 [facility] Comment on above: For patients on eltr ombopag therapy, use of [place] TBIL is not recommended. Chloride [Moles/Vol] 108 mmol/L 98-107 [facility] Cholesterol [Mass/Vol] 194 mg/dL <200 [facility] Comment on above: <200 mg/dL Desirable 200-240 mg/dL Borderline >240 mg/dL High Risk Eosinophils/100 WBC (Bld) 3.8 % 0-5 [facility] Glucose [Mass/Vol] 97 mg/dL 74-106 [facility] Neutrophils (Bld) [#/Vol] 3.3 10*3/uL 2.0-7.7 [facility] Neutrophils/100 WBC (Bld) 58.3 % 47-70 [facility] Potassium [Moles/Vol] 3.7 mmol/L 3.5-5.1 [facility] Comment on above: Slight Hemolysis, Re sult may be falsely increased. Protein [Mass/Vol] 7.5 g/dL 6.4-8.2 [facility] Sodium [Moles/Vol] 141 mmol/L 136-145 [facility] Triglyceride [Mass/Vol] 91 mg/dL <199 [facility] Comment on above: The drugs N-Acetylcy steine and Metamizole may falsely depress this assay.Serum Triglycerides Reference Interval Normal <150 mg/dL Borderline high 150 - 199 mg/dL High 200 - 499 mg/dL Very High > or = 500 mg/dL WBC (Bld) [#/Vol] 5.6 10*3/uL 4.4-11.0 [facility] Blood erythrocytes count (nu mber/volume)Ordered By: Pedrito Brock on 04-18-2023 RBC (Bld) [#/Vol] 4.54 10*6/uL 4.2-5.4 [facility] Blood hemoglobin measurement (mass/volume)Ordered By: Pedrito Brock on 04-18-2023 Hemoglobin (Bld) [Mass/Vol] 13.2 g/dL 12.0-15.0 [facility] Blood lymphocytes/100 leukoc ytesOrdered By: Pedrito Brock on 04-18-2023 Lymphocytes/100 WBC (Bld) 30.7 % 19-41 [facility] Blood monocytes/100 leukocyt esOrdered By: Pedrito Brock on 04-18-2023 Monocytes/100 WBC (Bld) 5.7 % 0-10 [facility] Blood platelet mean volumeOr dered By: Pedrito Brock on 04-18-2023 Platelet mean volume (Bld) [Entitic vol] 11.7 fL 6.2-12.0 [facility] Determination of erythrocyte mean corpuscular volume (MCV)Ordered By: Pedrito Brock on 04-18-2023 MCV (RBC) [Entitic vol] 92.1 fL 81-99 [facility] Hematocrit Auto (Bld) [Volum e fraction]Ordered By: Pedrito Brock on 04-18-2023 Hematocrit (Bld) [Volume fraction] 41.8 % 37-47 [facility] Laboratory - Chemistry and C hemistry - challengeOrdered By: Pedrito Brock on 04-18-2023 ALP [Catalytic activity/Vol] 88 U/L 45-117 [facility] ALT [Catalytic activity/Vol] 18 U/L 13-56 [facility] CO2 [Moles/Vol] 27.0 mmol/L 21.0-32.0 [facility] Globulin (S) [Mass/Vol] 3.7 g/dL 2.2-4.2 [facility] Urea nitrogen/Creatinine [Mass ratio] 18.9 mg/mg 10-20 [facility] Laboratory - Hematology and Cell countsOrdered By: Pedrito Brock on 04-18-2023 Erythrocyte distribution width (RBC) [Entitic vol] 48.1 fL 35.1-43.9 [facility] Erythrocyte distribution width (RBC) [Ratio] 14.2 % 11.6-14.6 [facility] Immature granulocytes/100 WBC (Bld) 0.400 % 0.0-0.9 [facility] Comment on above: IG% - Immature Granu locytes (promyelocytes, myelocytes and metamyelocytes) > 1% indicates that a LEFT SHIFT is Present. MCH (RBC) [Entitic mass] 29.1 pg 27.0-32.0 [facility] Nucleated RBC/100 WBC (Bld) [Ratio] 0 % 0-5 [facility] MCHC Auto (RBC) [Mass/Vol]Or dered By: Pedrito Brock on 04-18-2023 MCHC (RBC) [Mass/Vol] 31.6 g/dL 32-36 [facility] No Panel InformationOrdered By: Pedrito Brock on 04-18-2023 Estimated GFR (MDRD) Amer 82 mL/min >60 [facility] Comment on above: GFR Calc Estimated GFR (MDRD) Non-Af Amer 68 mL/min >60 [facility] Comment on above: Non- GFR Calc Miscellaneous Test See comment [facility] Comment on above: TEST RESULTS LIMITST hiopurine MethyltransferaseTPMT Activity 21.6 Units/mL RBCReference Range:Normal: 15.1 - 26.4Heterozygous for low TPMT variant: 6.3 - 15.0Homozygous for low TPMT variant: <6.3Interpretation: The above results can be interpreted as Normal for redblood cell Thiopurine Methyltransferase activity. Forpatients having an intrinsic low level of TPMT, recent RBCtransfusion can variably increase their assayed enzymaticactivity depending on the amount and circulating half-lifeof the transfused red blood cells.This test was developed and its performance characteristicsdetermined by [employer]. It has not been cleared or approvedby the Food and Drug Administration.This case has been reviewed, approved, interpreted andelectronically signed by Miguel Marcano, PhD, [facility].Methodology Enzymatic Endpoint/Liquid Chromatography - Tandem Mass Spectrometry(LC-MS/MS) TESTING PERFORMED AT [facility]. ORIGINAL REPORT ON FILE IN LAB CONTAINS ADDITIONAL TEST SITE INFORMATION. Platelets bldOrdered By: Justin Brock on 04-18-2023 Platelets (Bld) [#/Vol] 245 10*3/uL 150-450 [facility] Serum or plasma albumin zheng urement (mass/volume)Ordered By: Pedrito Brock on 04-18-2023 Albumin [Mass/Vol] 3.8 g/dL 3.2-5.0 [facility] Serum or plasma albumin/glob ulin mass ratioOrdered By: Pedrito Brock on 04-18-2023 Albumin/Globulin [Mass ratio] 1.0 {ratio} 0.9-2.4 [facility] Serum or plasma calcium zheng urement (mass/volume)Ordered By: Pedrito Brock on 04-18-2023 Calcium [Mass/Vol] 9.1 mg/dL 8.5-10.1 [facility] Serum or plasma cholesterol in HDL measurement (mass/volume)Ordered By: Pedrito Brock on 04-18-2023 Cholesterol in HDL [Mass/Vol] 59 mg/dL >40 [facility] Comment on above: The drugs N-Acetylcy steine and Metamizole may falsely depress this assay. Reference Range HDL <40 mg/dL Low HDL Cholesterol HDL >or= 60 mg/dL High HDL Cholesterol Serum or plasma cholesterol in VLDL measurement (mass/volume)Ordered By: Pedrito Brock on 04-18-2023 Cholesterol in VLDL [Mass/Vol] 18 mg/dL 5-40 [facility] Serum or plasma creatinine m easurement (mass/volume)Ordered By: Pedrito Brock on 04-18-2023 Creatinine [Mass/Vol] 0.95 mg/dL 0.55-1.02 [facility] Comment on above: The validity of the calculated GFR & GFRAA in patients over 70 years has not been determined. Clinical correlation is essential. Serum or plasma low density lipoprotein (LDL) cholesterol measurement (mass/volume)Ordered By: Pedrito Brock on 04-18-2023 Cholesterol in LDL [Mass/Vol] 117 mg/dL 0-130 [facility] Serum or plasma urea nitroge n measurement (mass/volume)Ordered By: Pedrito Brock on 04-18-2023 Urea nitrogen [Mass/Vol] 18 mg/dL 7-18 [facility] Thin prep Papanicolaou smear with manual screeningOrdered By: Pedrito Brock on 04-18-2023 Thin prep Papanicolaou smear with manual screening 15 U/L 15-37 [facility] Comment on above: Slight Hemolysis, Re sult may be falsely increased. Thin prep Papanicolaou smear with manual screening 6 5-15 [facility] No Panel InformationOrdered By: Pedrito Brock on 03-31-2023 Stool Calprotectin 66 ug/g 0-120 [facility] Comment on above: Concentration Interp retation Follow-Up<16 - 50 ug/g Normal None>50 -120 ug/g Borderline Re-evaluate in 4-6 weeks >120 ug/g Abnormal Repeat as clinically indicatedPerformed at: - [facility] [id number] Director: Darrius Lacy MD, Phone: [phone] No Panel InformationOrdered By: Dr. Joyce on 02-24-2023 Miscellaneous Test See comment [facility] Comment on above: TEST RESULT LIMITSPn eumococcal Antibodies p serotype 1 IgG (P13,PNX) 6.68 ug/mL p serotype 3 IgG (P13,PNX) 4.83 ug/mL p serotype 4 IgG (P7,P13,PNX) 0.30 ug/mL p serotype 5 IgG (P13,PNX) 3.26 ug/mL p serotype 6B IgG (P7,P13,PNX) >35.17 ug/mL p serotype 7F IgG (P13,PNX) 3.37 ug/mL p serotype 8 IgG (PNX) >22.85 ug/mL p serotype 9N IgG (PNX) 5.40 ug/mL p serotype 9V IgG (P7,P13,PNX) 1.72 ug/mL p serotype 12F IgG (PNX) 1.10 ug/mL p serotype 14 IgG (P7,P13,PNX) 1.71 ug/mL p serotype 18C IgG(P7,P13,PNX) 10.82 ug/mL p serotype 19F IgG(P7,P13,PNX) 1.34 ug/mL p serotype 23F IgG(P7,P13,PNX) 2.49 ug/mLPneumo Serotype Interpretation See Note INTERPRETIVE INFORMATION: Streptococcus pneumoniae Antibodies, IgGA pre- and postvaccination comparison is required to adequatelyassess the humoral immune response to the pure polysaccharidePneumovax 23 (PNX) and/or the protein conjugated Prevnar 7 (P7),Prevnar 13 (P13), Prevnar 20 (P20), and Vaxneuvance (V15)Streptococcus pneumoniae vaccines. Prevaccination samples shouldbe collected prior to vaccine administration. Postvaccinationsamples should be obtained at least 4 weeks after immunization.Testing of postvaccination samples alone will provide only general immune status of the individual to various pneumococcal serotypes.In the case of pure polysaccharide vaccine, indication of immunesystem competence is further delineated as an adequate response to at least 50 percent of the serotypes in the vaccine challenge for those 2-5 years of age and to at least 70 percent of the serotypes in the vaccine challenge for those 6-65 years of age. Individual immune response may vary based on age, past exposure,immunocompetence, and pneumococcal serotype.Responder Status Antibody RatioNonresponder . . . . . . . . . . . . . . Less than 2-foldWeak responder . . . . . . . . . . . . . 2-fold to 4-foldGood responder . . . . . . . . . . . . . Greater than 4-foldA response to 50-70 percent or more of the serotypes in thevaccine challenge is considered a normal humoral response.1Antibody concentration greater than 1.0-1.3 ug/mL is generallyconsidered long-term protection.2References:1. Angela STONER, Shahnaz ANDREA, Nelson X, et al. Multilaboratoryassessment of threshold versus fold-change algorithms forminimizing analytical variability in multiplexed pneumococcal IgG measurements. Clin Vaccine Immunol. 2014;21(7):982-988.2. Angela STONER, Sam JEFFREY. Use and clinical interpretation ofpneumococcal antibody measurements in the evaluation of humoralimmune function. Clin Vaccine Immunol. 2015;22(2):148-152.This test was developed and its performance characteristicsdetermined by [employer]. It has not been cleared orapproved by the U.S. Food and Drug Administration. This test wasperformed in a CLIA-certified laboratory and is intended forclinical purposes. TESTING PERFORMED AT [facility]. ORIGINAL REPORT ON FILE IN LAB CONTAINS ADDITIONAL TEST SITE INFORMATION. No Panel InformationOrdered By: Dr. Joyce on 01-23-2023 Miscellaneous Test See comment [facility] Comment on above: TEST RESULT LIMITST- and B-Lymphocyte/Fatemeh KillerAbs.CD19+ Lymphs 108 /uL 12-645% CD19+ Lymphs 7.2 % 3.3-25.4Absolute CD 3 1209 /uL 622-2402% CD 3 Pos. Lymph. 80.6 % 57.5-86.2Absolute CD 4 [place] 807 /uL 359-1519% CD 4 Pos. Lymph. 53.8 % 30.8-58.5Abs. CD 8 Suppressor 411 /uL 109-897% CD 8 Pos. Lymph. 27.4 % 12.0-35.5CD4/CD8 Ratio 1.96 0.92-3.72Ab NK (CD56/16) 173 /uL 24-406% NK (CD56/16) 11.5 % 1.4-19.4WBC 5.5 x10E3/uL 3.4-10.8 RBC 4.27 x10E6/uL 3.77-5.28Hemoglobin 12.5 g/dL 11.1-15.9Hematocrit 40.4 % 34.0-46.6MCV 95 fL 79-97MCH 29.3 pg 26.6-33.0MCHC 30.9 Low g/dL 31.5-35.7RDW 13.5 % 11.7-15.4Platelets 269 x10E3/uL 150-450Neutrophils 62 % Not Estab.Lymphs 27 % Not Estab.Monocytes 7 % Not Estab.Eos 3 % Not Estab.Basos 1 % Not Estab.Neutrophils (Absolute) 3.5 x10E3/uL 1.4-7.0Lymphs (Absolute) 1.5 x10E3/uL 0.7-3.1Monocytes(Absolute) 0.4 x10E3/uL 0.1-0.9Eos (Absolute) 0.1 x10E3/uL 0.0-0.4Baso (Absolute) 0.1 x10E3/uL 0.0-0.2Immature Granulocytes 0 % Not Estab.Immature Grans (Abs) 0.0 x10E3/uL 0.0-0.1 ___ TESTING PERFORMED AT [facility]. ORIGINAL REPORT ON FILE IN LAB CONTAINS ADDITIONAL TEST SITE INFORMATION. Absolute lymphocyte countOrd ered By: Dr. Joyce on 01-20-2023 Lymphocytes Auto (Unsp spec) [#/Vol] 2.10 10*3/uL 0.83-4.51 [facility] Basophil percentageOrdered B y: Dr. Joyce on 01-20-2023 Basophils/100 WBC (Bld) 0.7 % 0-1 [facility] Eosinophils/100 [facility] (Bld) 3.4 % [facility] Neutrophils (Bld) [#/Vol] 4.4 10*3/uL 2.0-7.7 [facility] Neutrophils/100 WBC (Bld) 59.5 % 47-70 [facility] WBC (Bld) [#/Vol] 7.4 10*3/uL 4.4-11.0 [facility] Blood erythrocytes count (nu mber/volume)Ordered By: Dr. Joyce on 01-20-2023 RBC (Bld) [#/Vol] 4.24 10*6/uL 4.2-5.4 [facility] Blood hemoglobin measurement (mass/volume)Ordered By: Dr. Joyce on 01-20-2023 Hemoglobin (Bld) [Mass/Vol] 12.4 g/dL 12.0-15.0 [facility] Blood lymphocytes/100 leukoc ytesOrdered By: Dr. Joyce on 01-20-2023 Lymphocytes/100 WBC (Bld) 28.2 % 19-41 [facility] Blood monocytes/100 leukocyt esOrdered By: Dr. Joyce on 01-20-2023 Monocytes/100 WBC (Bld) 7.8 % 0-10 [facility] Blood platelet mean volumeOr dered By: Dr. Joyce on 01-20-2023 Platelet mean volume (Bld) [Entitic vol] 11.1 fL 6.2-12.0 [facility] Determination of erythrocyte mean corpuscular volume (MCV)Ordered By: Dr. Joyce on 01-20-2023 MCV (RBC) [Entitic vol] 92.2 fL 81-99 [facility] Hematocrit Auto (Bld) [Volum e fraction]Ordered By: Dr. Joyce on 01-20-2023 Hematocrit (Bld) [Volume fraction] 39.1 % 37-47 [facility] Laboratory - Hematology and Cell countsOrdered By: Dr. Joyce on 01-20-2023 Erythrocyte distribution width (RBC) [Entitic vol] 47.2 fL 35.1-43.9 [facility] Erythrocyte distribution width (RBC) [Ratio] 14.0 % 11.6-14.6 [facility] Immature granulocytes/100 WBC (Bld) 0.400 % 0.0-0.9 [facility] Comment on above: IG% - Immature Granu locytes (promyelocytes, myelocytes and metamyelocytes) > 1% indicates that a LEFT SHIFT is Present. MCH (RBC) [Entitic mass] 29.2 pg 27.0-32.0 [facility] Nucleated RBC/100 WBC (Bld) [Ratio] 0 % 0-5 [facility] MCHC Auto (RBC) [Mass/Vol]Or dered By: Dr. Joyce on 01-20-2023 MCHC (RBC) [Mass/Vol] 31.7 g/dL 32-36 [facility] No Panel InformationOrdered By: Dr. Joyce on 01-20-2023 Miscellaneous Test See comment [facility] Comment on above: TEST RESULT LIMITSDi phtheria Antitoxoid Ab 0.13 IU/mL <0.10 Interpretation: Non-Protective < 0.10 Protective >=0.10 For research use only. TESTING PERFORMED AT [facility]. ORIGINAL REPORT ON FILE IN LAB CONTAINS ADDITIONAL TEST SITE INFORMATION. TEST RESULTS LIMITSP neumococcal Ab (23 Serotype)Pneumo Ab Type 1* 0.3 Low ug/mL >1.3Pneumo Ab Type 3* 0.3 Low ug/mL >1.3Pneumo Ab Type 4* <0.1 Low ug/mL >1.3Pneumo Ab Type 8* 4.5 ug/mL >1.3Pneumo Ab Type 9 (9N)* <0.1 Low ug/mL >1.3Pneumo Ab Type 12 (12F)* <0.1 Low ug/mL >1.3Pneumo Ab Type 14* 0.2 Low ug/mL >1.3Pneumo Ab Type 17 (17F)* 0.4 Low ug/mL >1.3Pneumo Ab Type 19 (19F)* 0.9 Low ug/mL >1.3Pneumo Ab Type 2* 0.5 Low ug/mL >1.3Pneumo Ab Type 20* 4.1 ug/mL >1.3Pneumo Ab Type 22 (22F)* 0.9 Low ug/mL >1.3Pneumo Ab Type 23 (23F)* <0.1 Low ug/mL >1.3Pneumo Ab Type 26 (6B)* 0.5 Low ug/mL >1.3Pneumo Ab Type 34 (10A)* 0.1 Low ug/mL >1.3Pneumo Ab Type 43 (11A)* 1.3 Low ug/mL >1.3Pneumo Ab Type 5* 1.2 Low ug/mL >1.3Pneumo Ab Type 51 (7F)* 1.2 Low ug/mL >1.3Pneumo Ab Type 54 (15B)* 01 0.8 Low ug/mL >1.3Pneumo Ab Type 56 (18C)* 01 0.2 Low ug/mL >1.3Pneumo Ab Type 57 (19A)* 01 2.2 ug/mL >1.3Pneumo Ab Type 68 (9V)* 01 <0.1 Low ug/mL >1.3Pneumo Ab Type 70 (33F)* 01 0.5 Low ug/mL >1.3*This test was developed and its performancecharacteristics determined by [email or web address]. It has notbeen cleared or approved by the U.S. Food and DrugAdministration TESTING PERFORMED AT [facility]. ORIGINAL REPORT ON FILE IN LAB CONTAINS ADDITIONAL TEST SITE INFORMATION. Platelets bldOrdered By: Dr. Joyce on 01-20-2023 Platelets (Bld) [#/Vol] 260 10*3/uL 150-450 [facility] Basophil percentageOrdered B y: Dr. Longoria on 01-12-2023 Bilirubin [Mass/Vol] 0.60 mg/dL 0.20-1.00 [facility] Comment on above: For patients on eltr ombopag therapy, use of [place] TBIL is not recommended. Chloride [Moles/Vol] 106 mmol/L 98-107 [facility] Cholesterol [Mass/Vol] 214 mg/dL <200 [facility] Comment on above: <200 mg/dL Desirable 200-240 mg/dL Borderline >240 mg/dL High Risk Glucose [Mass/Vol] 94 mg/dL 74-106 [facility] Potassium [Moles/Vol] 3.7 mmol/L 3.5-5.1 [facility] Protein [Mass/Vol] 7.7 g/dL 6.4-8.2 [facility] Sodium [Moles/Vol] 140 mmol/L 136-145 [facility] Triglyceride [Mass/Vol] 93 mg/dL <199 [facility] Comment on above: The drugs N-Acetylcy steine and Metamizole may falsely depress this assay.Serum Triglycerides Reference Interval Normal <150 mg/dL Borderline high 150 - 199 mg/dL High 200 - 499 mg/dL Very High > or = 500 mg/dL Erythrocyte sedimentation ra teOrdered By: Dr. Longoria on 01-12-2023 ESR (Bld) [Velocity] 4 mm/h 0-30 [facility] Laboratory - Chemistry and C hemistry - challengeOrdered By: Dr. Longoria on 01-12-2023 ALP [Catalytic activity/Vol] 94 U/L 45-117 [facility] ALT [Catalytic activity/Vol] 21 U/L 13-56 [facility] CO2 [Moles/Vol] 27.0 mmol/L 21.0-32.0 [facility] Globulin (S) [Mass/Vol] 3.5 g/dL 2.2-4.2 [facility] Urea nitrogen/Creatinine [Mass ratio] 22.9 mg/mg 10-20 [facility] No Panel InformationOrdered By: Dr. Longoria on 01-12-2023 Anti-Gliadin IgA Antibody 4 units 0-19 [facility] Comment on above: Negative 0 - 19 Weak Positive 20 - 30 Moderate to Strong Positive >30 Anti-Gliadin IgG Antibody 3 units 0-19 [facility] Comment on above: Negative 0 - 19 Weak Positive 20 - 30 Moderate to Strong Positive >30 [facility]omysial IgA Antibody [facility] Estimated GFR (MDRD) Amer 86 mL/min >60 [facility] Comment on above: GFR Calc Estimated GFR (MDRD) Non-Af Amer 71 mL/min >60 [facility] Comment on above: Non- GFR Calc Tissue Transglutaminase IgG Ab <2 U/mL 0-5 [facility] Comment on above: Negative 0 - 5 Weak Positive 6 - 9 Positive >9 Serum IgA measurement (units /volume)Ordered By: Dr. Longoria on 01-12-2023 IgA Qn (S) 245 mg/dL 87-352 [facility] Serum or plasma C reactive p rotein measurement (mass/volume)Ordered By: Dr. Longoria on 01-12-2023 CRP [Mass/Vol] mg/L 0.0-3.0 [facility] Comment on above: C-Reactive Protein ( CRP) provides useful information for thediagnosis, therapy and monitoring of inflammatory processesand associated diseases. For the evaluation of Relative Riskfor Cardiovascular Disease, a High Sensitivity CRP (HSCRP)should be ordered. Serum or plasma albumin zheng urement (mass/volume)Ordered By: Dr. Longoria on 01-12-2023 Albumin [Mass/Vol] 4.2 g/dL 3.2-5.0 [facility] Serum or plasma albumin/glob ulin mass ratioOrdered By: Dr. Longoria on 01-12-2023 Albumin/Globulin [Mass ratio] 1.2 {ratio} 0.9-2.4 [facility] Serum or plasma calcium zheng urement (mass/volume)Ordered By: Dr. Longoria on 01-12-2023 Calcium [Mass/Vol] 9.2 mg/dL 8.5-10.1 [facility] Serum or plasma cholesterol in HDL measurement (mass/volume)Ordered By: Dr. Longoria on 01-12-2023 Cholesterol in HDL [Mass/Vol] 59 mg/dL >40 [facility] Comment on above: The drugs N-Acetylcy steine and Metamizole may falsely depress this assay. Reference Range HDL <40 mg/dL Low HDL Cholesterol HDL >or= 60 mg/dL High HDL Cholesterol Serum or plasma cholesterol in VLDL measurement (mass/volume)Ordered By: Dr. Longoria on 01-12-2023 Cholesterol in VLDL [Mass/Vol] 19 mg/dL 5-40 [facility] Serum or plasma creatinine m easurement (mass/volume)Ordered By: Dr. Longoria on 01-12-2023 Creatinine [Mass/Vol] 0.92 mg/dL 0.55-1.02 [facility] Comment on above: The validity of the calculated GFR & GFRAA in patients over 70 years has not been determined. Clinical correlation is essential. Serum or plasma low density lipoprotein (LDL) cholesterol measurement (mass/volume)Ordered By: Dr. Longoria on 01-12-2023 Cholesterol in LDL [Mass/Vol] 136 mg/dL 0-130 [facility] Serum or plasma urea nitroge n measurement (mass/volume)Ordered By: Dr. Longoria on 01-12-2023 Urea nitrogen [Mass/Vol] 21 mg/dL 7-18 [facility] Serum tissue transglutaminas e IgA antibody assay (units/volume)Ordered By: Dr. Longoria on 01-12-2023 tTG IgA Qn (S) <2 U/mL 0-3 [facility] Comment on above: Negative 0 - 3 Weak Positive 4 - 10 Positive >10 Tissue Transglutaminase (tTG) has been identified as the endomysial antigen. Studies have demonstr- ated that endomysial IgA antibodies have over 99% specificity for gluten sensitive enteropathy. Thin prep Papanicolaou smear with manual screeningOrdered By: Dr. Longoria on 01-12-2023 Thin prep Papanicolaou smear with manual screening 17 U/L 15-37 [facility] Thin prep Papanicolaou smear with manual screening 7 5-15 [facility] Thin prep Papanicolaou smear with manual screening Positive . [facility] Comment on above: HLA-B*27 PositiveThi s patient is positive for HLA-B*27. This procedure rulesout the B*27:06 and 27:09 alleles, which the literaturesuggests are not associated with spondyloarthropathies.B27 allele interpretation for all loci based on IMGT/HLAdatabase version 3.44This test was developed and its performance characteristicsdetermined by [employer]. It has not been cleared or approvedby the Food and Drug Administration.[facility] CLIA ID Number [id number] test was performed using PCR (Polymerase ChainReaction)/SSOP (Sequence Specific Oligonucleotide Probes)technique. SBT (Sequence Based Typing) and/or SSP(Sequence Specific Primers) may be used as supplementalmethods when necessary. Please contact [facility] at if you have any questions. Director of [facility] Dr Radu Patel, PhDPerformed at: [address] [id number] Director: Natanael Felix PhD, Phone: [phone] at: [address] [place] [id number] Director: Radu Patel PhD, Phone: [phone] Whole blood hemoglobin A1c/t otal hemoglobin ratio (mass fraction)Ordered By: Dr. Longoria on 01-12-2023 HbA1c (Bld) [Mass fraction] 5.0 % 3.8-5.6 [facility] Comment on above: Normal < 5.7 % Predi abetic 5.7 - 6.4 % Diabetic >or= 6.5 % Please note range changes. Stool lactoferrin detection by immunoassayOrdered By: Pedrito Brock on 12-09-2022 Lactoferrin IA Ql (Stl) [facility] Albumin Elph [Mass/Vol]Order ed By: Pedrito Brock on 12-06-2022 Albumin [Mass/Vol] 4.3 g/dL 2.9-4.4 [facility] Atypical perinuclear antineu trophil cytoplasmic antibodies measurementOrdered By: Pedrito rBock on 12-06-2022 Neutrophil cytoplasmic Ab.perinuclear.atypical IF (S) [Titer] <1:20 titer Neg:<1:20 [facility] Comment on above: The atypical pANCA p attern has been observed in asignificant percentage of patients with ulcerative colitis,primary sclerosing cholangitis and autoimmune hepatitis. Basophil percentageOrdered B y: Pedrito Brock on 12-06-2022 Basophil percentage < 0.2 AI 0.0-0.9 [facility] Bilirubin [Mass/Vol] 0.70 mg/dL 0.20-1.00 [facility] Comment on above: For patients on eltr ombopag therapy, use of [place] TBIL is not recommended. Chloride [Moles/Vol] 105 mmol/L 98-107 [facility] Glucose [Mass/Vol] 83 mg/dL 74-106 [facility] Potassium [Moles/Vol] 4.0 mmol/L 3.5-5.1 [facility] Protein [Mass/Vol] 8.2 g/dL 6.4-8.2 [facility] Sodium [Moles/Vol] 140 mmol/L 136-145 [facility] Erythrocyte sedimentation ra teOrdered By: Pedrito Brock on 12-06-2022 ESR (Bld) [Velocity] 10 mm/h 0-30 [facility] Interpretation of serum or p lasma protein pattern by immunofixation (narrative resultOrdered By: Pedrito Brock on 12-06-2022 Protein Fractions Immunofixation Jimmy [Interp] See comment [facility] Comment on above: Not Observed Laboratory - Chemistry and C hemistry - challengeOrdered By: Pedrito Brock on 12-06-2022 ALP [Catalytic activity/Vol] 85 U/L 45-117 [facility] ALT [Catalytic activity/Vol] 29 U/L 13-56 [facility] CO2 [Moles/Vol] 28.0 mmol/L 21.0-32.0 [facility] Urea nitrogen/Creatinine [Mass ratio] 28.6 mg/mg 10-20 [facility] No Panel InformationOrdered By: Pedrito Brock on 12-06-2022 Addendum Document Comment . [facility] Comment on above: Protein electrophore sis scan will follow via computer,mail, or eyelet maker delivery. [employer] B Antibody <0.2 AI 0.0-0.9 [facility] Endomysial IgA Antibody Negative Negative [facility] Estimated GFR (MDRD) Amer 83 mL/min >60 [facility] Comment on above: GFR Calc Estimated GFR (MDRD) Non-Af Amer 68 mL/min >60 [facility] Comment on above: Non- GFR Calc Immunoglobulin E 2 IU/mL 6-495 [facility] Comment on above: Performed at: [id number] [place], [place] [id number] Director: Natanael Felix PhD, Phone: [phone] at: [address] [id number] Director: Darrius Lacy MD, Phone: [phone] Miscellaneous Test See comment [facility] Comment on above: TEST RESULT LIMITSIB D Expanded PanelgASCA 27 units 0-50 Negative <45 Equivocal 45 - 50 Positive >50ACCA 36 units 0-90 Negative <80 Equivocal 80 - 90 Positive >90ALCA 15 units 0-60 Negative <55 Equivocal 55 - 60 Positive >60AMCA 122 High units 0-100 Negative < 90 Equivocal 90 - 100 Positive >100 This test was developed and its performance characteristics determined by [facility]. It has not been cleared or approved by the Food and Drug Administration. The FDA has determined that such clearance or approval is not necessary.Atypical pANCA Negative NegativeComments AbnormalSuggestive of Crohn's Disease. Pattern is not conclusive for disease behavior risk stratification. TESTING PERFORMED AT [facility]. ORIGINAL REPORT ON FILE IN LAB CONTAINS ADDITIONAL TEST SITE INFORMATION. VALET CASHIER Antibody <0.2 AI 0.0-0.9 [facility] Serum DNA double strand anti body assay (units/volume)Ordered By: Pedrito Brock on 12-06-2022 DNA double strand Ab Qn (S) 1 [IU]/mL 0-9 [facility] Comment on above: Negative <5 Equivoca l 5 - 9 Positive >9 Serum Bhumika-1 antibody assay (u nits/volume)Ordered By: Pedrito Brock on 12-06-2022 Bhumika-1 extractable nuclear Ab Qn (S) <0.2 AI 0.0-0.9 [facility] Serum Scl-70 extractable nuc lear antibody assay (units/volume)Ordered By: Pedrito Brock on 12-06-2022 SCL-70 extractable nuclear Ab Qn (S) <0.2 AI 0.0-0.9 [facility] Serum Barrientos extractable nucl ear antibody detectionOrdered By: Pedrito Brock on 12-06-2022 Barrientos extractable nuclear Ab Ql (S) <0.2 AI 0.0-0.9 [facility] Serum qydgt-1-mxvyfbao measu rement by electrophoresisOrdered By: Pedrito Brock on 12-06-2022 Alpha 1 globulin Elph [Mass/Vol] 0.2 g/dL 0.0-0.4 [facility] Alpha 1 globulin Elph [Mass/Vol] 0.7 g/dL 0.4-1.0 [facility] Serum classic neutrophil cyt oplasmic antibody assay (units/volume)Ordered By: Pedrito Brock on 12-06-2022 Neutrophil cytoplasmic Ab.classic Qn (S) <1:20 titer Neg:<1:20 [facility] Serum globulin measurement ( mass/volume)Ordered By: Pedrito Brock on 12-06-2022 Globulin (S) [Mass/Vol] 3.4 g/dL 2.2-3.9 [facility] Serum mitochondria antibody detectionOrdered By: Pedrito Brock on 12-06-2022 Mitochondria Ab Ql (S) <20.0 Units 0.0-20.0 [facility] Comment on above: Negative 0.0 - 20.0 Equivocal 20.1 - 24.9 Positive >24.9Mitochondrial (M2) Antibodies are found in 90-96% ofpatients with primary biliary cirrhosis.Performed at: [facility] Lab[address] [id number] Director: Natanael Felix PhD, Phone: [phone] Serum or plasma C reactive p rotein measurement (mass/volume)Ordered By: Pedrito Brock on 12-06-2022 CRP [Mass/Vol] mg/L 0.0-3.0 [facility] Comment on above: C-Reactive Protein ( CRP) provides useful information for thediagnosis, therapy and monitoring of inflammatory processesand associated diseases. For the evaluation of Relative Riskfor Cardiovascular Disease, a High Sensitivity CRP (HSCRP)should be ordered. Serum or plasma IgA measurem ent (mass/volume)Ordered By: Pedrito Brock on 12-06-2022 IgA [Mass/Vol] 258 mg/dL 87-352 [facility] Serum or plasma IgG measurem ent (mass/volume)Ordered By: Pedrito Brock on 12-06-2022 IgG [Mass/Vol] 1148 mg/dL 586-1602 [facility] Serum or plasma IgM measurem ent (mass/volume)Ordered By: Pedrito Brock on 12-06-2022 IgM [Mass/Vol] 79 mg/dL 26-217 [facility] Serum or plasma actin IgG an tibody assay (units/volume)Ordered By: Pedrito Brock on 12-06-2022 Actin IgG Qn 5 Units 0-19 [facility] Comment on above: Negative 0 - 19 Weak positive 20 - 30 Moderate to strong positive >30 Actin Antibodies are found in 52-85% of patients with autoimmune hepatitis or chronic active hepatitis and in 22% of patients with primary biliary cirrhosis. Serum or plasma albumin zheng urement (mass/volume)Ordered By: Pedrito Brock on 12-06-2022 Albumin [Mass/Vol] 4.4 g/dL 3.2-5.0 [facility] Serum or plasma albumin/glob ulin mass ratioOrdered By: Pedrito Brock on 12-06-2022 Albumin/Globulin [Mass ratio] 1.2 {ratio} 0.9-2.4 [facility] Serum or plasma beta globuli n measurement by electrophoresis (mass/volume)Ordered By: Pedrito Brock on 12-06-2022 Beta globulin Elph [Mass/Vol] 1.3 g/dL 0.7-1.3 [facility] Serum or plasma calcium zheng urement (mass/volume)Ordered By: Pedrito Brock on 12-06-2022 Calcium [Mass/Vol] 9.9 mg/dL 8.5-10.1 [facility] Serum or plasma creatinine m easurement (mass/volume)Ordered By: Pedrito Brokc on 12-06-2022 Creatinine [Mass/Vol] 0.94 mg/dL 0.55-1.02 [facility] Comment on above: The validity of the calculated GFR & GFRAA in patients over 70 years has not been determined. Clinical correlation is essential. Serum or plasma gamma globul in measurement by electrophoresis (mass/volume)Ordered By: Pedrito Brock on 12-06-2022 Gamma globulin Elph [Mass/Vol] 1.2 g/dL 0.4-1.8 [facility] Serum or plasma immunoelectr ophoresis interpretation (nominal result)Ordered By: Pedrito Brock on 12-06-2022 Interpretation IEP [Interp] Comment . [facility] Comment on above: No monoclonality det ected. Serum or plasma urea nitroge n measurement (mass/volume)Ordered By: Pedrito Brock on 12-06-2022 Urea nitrogen [Mass/Vol] 27 mg/dL 7-18 [facility] Serum perinuclear neutrophil cytoplasmic antibody titer by immunofluorescenceOrdered By: Pedrito Brock on 12-06-2022 Neutrophil cytoplasmic Ab.perinuclear IF (S) [Titer] <1:20 titer Neg:<1:20 [facility] Comment on above: The presence of posi tive fluorescence exhibiting P-ANCA orC-ANCA patterns alone is not specific for the diagnosis ofWegener's Granulomatosis (WG) or microscopic polyangiitis.Decisions about treatment should not be based solely onANCA IFA results. The [employer] Consensusrecommends follow up testing of positive sera with both ND-3 and MPO-ANCA enzyme immunoassays. As many as 5% serumsamples are positive only by EIA. Ref. AM J Clin [id number];[id number]. Serum tissue transglutaminas e IgA antibody assay (units/volume)Ordered By: Pedrito Brock on 12-06-2022 tTG IgA Qn (S) <2 U/mL 0-3 [facility] Comment on above: Negative 0 - 3 Weak Positive 4 - 10 Positive >10 Tissue Transglutaminase (tTG) has been identified as the endomysial antigen. Studies have demonstr- ated that endomysial IgA antibodies have over 99% specificity for gluten sensitive enteropathy. Thin prep Papanicolaou smear with manual screeningOrdered By: Pedrito Brock on 12-06-2022 Thin prep Papanicolaou smear with manual screening 10 U/L 15-37 [facility] Thin prep Papanicolaou smear with manual screening 7 5-15 [facility] Thin prep Papanicolaou smear with manual screening 1.3 0.7-1.7 [facility] Total protein bloodOrdered B y: Pedrito Brock on 12-06-2022 Protein [Mass/Vol] 7.7 g/dL 6.0-8.5 [facility] Culture, urineOrdered By: Michael Hardin on 10-24-2022 Bacteria identified Cx Nom (U) Presumptive Lactobacillus sp. [facility] Basophil percentageOrdered B y: Sean Hardin on 10-22-2022 Basophil percentage 0-5 SEEN /hpf 0-5 [facility] Bilirubin Test strip Ql (U)O rdered By: Sean Hardin on 10-22-2022 Bilirubin Ql (U) Negative Negative [facility] Calcium oxalate crystals det ection in urine sediment by light microscopyOrdered By: Sean Hardin on 10-22-2022 Calcium oxalate crystals LM Ql (Urine sed) 1+ /hpf [facility] Ketones Test strip Ql (U)Ord ered By: Sean Hardin on 10-22-2022 Ketones Ql (U) 5 mg/dl Negative [facility] Mucus LM Ql (Urine sed)Order ed By: Sean Hardin on 10-22-2022 Mucus Ql (Urine sed) 0 SEEN /hpf [facility] Nitrite Test strip Ql (U)Ord ered By: Sean Hardin on 10-22-2022 Nitrite Ql (U) Negative Negative [facility] Protein Test strip Ql (U)Ord ered By: Sean Hardin on 10-22-2022 Protein Ql (U) 30 mg/dl Negative [facility] Squamous epithelial cells de tection in urine sediment by light microscopyOrdered By: Sean Hardin on 10-22-2022 Epithelial cells.squamous LM Ql (Urine sed) 0-5 SEEN /hpf 5-10 [facility] Urine blood detectionOrdered By: Sean Hardin on 10-22-2022 RBC Ql (U) Negative Negative [facility] RBC Ql (U) 0-5 SEEN /hpf 0-5 [facility] Urine clarityOrdered By: Flaco Hardin on 10-22-2022 Clarity (U) Sl. Cloudy Clear [facility] Urine color determinationOrd ered By: Sean Hardin on 10-22-2022 Color (U) Yellow Yellow [facility] Urine glucose detectionOrder ed By: Sean Hardin on 10-22-2022 Glucose Ql (U) Normal mg/dl Normal [facility] Urine leukocyte esterase det ection by dipstickOrdered By: Sean Hardin on 10-22-2022 Leukocyte esterase Test strip Ql (U) 25 /ul Negative [facility] Urine pHOrdered By: Sean Hardin on 10-22-2022 pH (U) 5.0 [pH] 5.0 - 8.0 [facility] Urine sediment bacteria coun t by microscopy (number/high power field)Ordered By: Sean Hardin on 10-22-2022 Bacteria LM.HPF (Urine sed) [#/Area] 1 /[HPF] None Seen [facility] Urine specific gravity measu rementOrdered By: Sean Hardin on 10-22-2022 Specific gravity (U) [Rel density] 1.025 1.002-1.03 0 [facility] Urobilinogen Auto test strip Ql (U)Ordered By: Sean Hardin on 10-22-2022 Urobilinogen Ql (U) Normal mg/dl Normal [facility] Laboratory - Chemistry and C hemistry - challengeon 10-21-2022 Bilirubin Ql (U) Negative [facility] Glucose Ql (U) Negative [facility] Ketones Ql (U) Negative [facility] pH (U) 5.0 [pH] [facility] Specific gravity (U) [Rel density] 1.005 [facility] Urobilinogen (U) [Mass/Vol] 0.1436625 mg/dL [facility] Laboratory - Hematology and Cell countson 10-21-2022 Hemoglobin Ql (U) Negative [facility] Laboratory - Specimen inform ationon 10-21-2022 Clarity (U) Clear [facility] Color (U) Yellow [facility] Laboratory - Urinalysison Nitrite Ql (U) Negative [facility] Protein Ql (U) Negative [facility] No Panel Informationon 10-21 Urine Leukocytes Negatve [facility] Urine Non-Hemolyzed Blood Negative [facility] Cytology report of Body flui d Cyto stainOrdered By: Dr. Longoria on 10-17-2022 Cytology report Cyto stain Doc (Body fld) SEE PATHOLOGY REPORT [facility] Comment on above: Specimen submitted t o Anatomical Pathology Department for testing. UA DIP, URINE (POC)on 2021 BILIRUBIN UA (POCT) Negative Negative [facility] CLARITY UA (POCT) Clear [facility] COLOR UA (POCT) Yellow [facility] GLUCOSE UA (POCT) Negative Negative mg/dL [facility] HEMOGLOBIN/BLOOD UA (POCT) Negative Negative [facility] KETONE UA (POCT) 40 mg/dL Abnormal Negative mg/dL [facility] LEUKOCYTES UA (POCT) Negative Negative [facility] NITRITE UA (POCT) Negative Negative [facility] PH UA (POCT) 5.5 4.5 - 8.0 [facility] Protein Ql (U) Negative Negative mg/dL [facility] SPECIFIC GRAVITY UA (POCT) >=1.030 1.005 - 1.030 [facility] UROBILINOGEN UA (POCT) 0.2 E.U./dL Kelin l E.U./dL [facility] Basophil percentageOrdered B y: Romana Zavala on 09-09-2022 Chloride [Moles/Vol] 110 mmol/L 98-107 [facility] Glucose [Mass/Vol] 93 mg/dL 74-106 [facility] Potassium [Moles/Vol] 3.4 mmol/L 3.5-5.1 [facility] Sodium [Moles/Vol] 139 mmol/L 136-145 [facility] Laboratory - Chemistry and C hemistry - challengeOrdered By: Romana Zavala on 09-09-2022 CO2 [Moles/Vol] 21.0 mmol/L 21.0-32.0 [facility] Urea nitrogen/Creatinine [Mass ratio] 23.8 mg/mg 10- [facility] No Panel InformationOrdered By: Romana Zavala on 09-09-2022 Estimated GFR (MDRD) Amer 77 mL/min >60 [facility] Comment on above: GFR Calc Estimated GFR (MDRD) Non-Af Amer 63 mL/min >60 [facility] Comment on above: Non- GFR Calc Serum or plasma calcium zheng urement (mass/volume)Ordered By: Romana Zavala on 09-09-2022 Calcium [Mass/Vol] 9.2 mg/dL 8.5-10.1 [facility] Serum or plasma creatinine m easurement (mass/volume)Ordered By: Romana Zavala on 09-09-2022 Creatinine [Mass/Vol] 1.01 mg/dL 0.55-1.02 [facility] Comment on above: The validity of the calculated GFR & GFRAA in patients over 70 years has not been determined. Clinical correlation is essential. Serum or plasma urea nitroge n measurement (mass/volume)Ordered By: Romana Zavala on 09-09-2022 Urea nitrogen [Mass/Vol] 24 mg/dL 7-18 [facility] Thin prep Papanicolaou smear with manual screeningOrdered By: Romana Zavala on 09-09-2022 Thin prep Papanicolaou smear with manual screening 8 5-15 [facility] UA DIP, URINE (POC)on 2021 BILIRUBIN UA (POCT) Negative Negative [facility] CLARITY UA (POCT) Clear [facility] COLOR UA (POCT) [place] [facility] GLUCOSE UA (POCT) Negative Negative mg/dL [facility] HEMOGLOBIN/BLOOD UA (POCT) Large Abnormal Negative [facility] KETONE UA (POCT) Negative Negative mg/dL [facility] LEUKOCYTES UA (POCT) Negative Negative [facility] NITRITE UA (POCT) Negative Negative [facility] PH UA (POCT) 7.0 4.5 - 8.0 [facility] Protein Ql (U) 30 mg/dL Abnormal Negative mg/dL [facility] SPECIFIC GRAVITY UA (POCT) 1.020 1.005 - 1.030 [facility] UROBILINOGEN UA (POCT) 0.2 E.U./dL Kelin l E.U./dL [facility] Absolute lymphocyte counton 08-12-2022 Lymphocytes Auto (Unsp spec) [#/Vol] 1.86 10*3/uL 0.83-4.51 [facility] Work Phone: Basophil percentageon 2021 Basophils/100 WBC (Bld) 1.1 % 0-1 [facility] Work Phone: Bilirubin [Mass/Vol] 0.50 mg/dL 0.20-1.00 [facility] Work Phone: Comment on above: For patients on eltr ombopag therapy, use of [place] TBIL is not recommended. Chloride [Moles/Vol] 107 mmol/L 98-107 [facility] Work Phone: Eosinophils/100 WBC (Bld) 4.0 % 0-5 [facility] Work Phone: Glucose [Mass/Vol] 80 mg/dL 74-106 [facility] Work Phone: Neutrophils (Bld) [#/Vol] 2.9 10*3/uL 2.0-7.7 [facility] Work Phone: Neutrophils/100 WBC (Bld) 52.5 % 47-70 [facility] Work Phone: Potassium [Moles/Vol] 3.4 mmol/L 3.5-5.1 [facility] Work Phone: Protein [Mass/Vol] 7.4 g/dL 6.4-8.2 [facility] Work Phone: Sodium [Moles/Vol] 141 mmol/L 136-145 [facility] Work Phone: WBC (Bld) [#/Vol] 5.5 10*3/uL 4.4-11.0 [facility] Work Phone: Blood erythrocytes count (nu mber/volume)on 08-12-2022 RBC (Bld) [#/Vol] 4.16 10*6/uL 4.2-5.4 [facility] Work Phone: Blood hemoglobin measurement (mass/volume)on 08-12-2022 Hemoglobin (Bld) [Mass/Vol] 12.1 g/dL 12.0-15.0 [facility] Work Phone: Blood lymphocytes/100 leukoc yteson 08-12-2022 Lymphocytes/100 WBC (Bld) 34.1 % 19-41 [facility] Work Phone: Blood monocytes/100 leukocyt eson 08-12-2022 Monocytes/100 WBC (Bld) 7.9 % 0-10 [facility] Work Phone: Blood platelet mean volumeon 08-12-2022 Platelet mean volume (Bld) [Entitic vol] 11.2 fL 6.2-12.0 [facility] Work Phone: Determination of erythrocyte mean corpuscular volume (MCV)on 08-12-2022 MCV (RBC) [Entitic vol] 89.7 fL 81-99 [facility] Work Phone: Hematocrit Auto (Bld) [Volum e fraction]on 08-12-2022 Hematocrit (Bld) [Volume fraction] 37.3 % 37-47 [facility] Work Phone: Laboratory - Chemistry and C hemistry - challengeon 08-12-2022 ALP [Catalytic activity/Vol] 91 U/L 45-117 [facility] Work Phone: ALT [Catalytic activity/Vol] 27 U/L 13-56 [facility] Work Phone: [phone] CO2 [Moles/Vol] 26.0 mmol/L 21.0-32.0 [facility] Work Phone: Cobalamin (Vitamin B12) [Mass/Vol] 714 pg/mL 211-911 [facility] Work Phone: Free T4 [Mass/Vol] 1.12 ng/dL 0.76-1.46 [facility] Work Phone: Globulin (S) [Mass/Vol] 3.6 g/dL 2.2-4.2 [facility] Work Phone: Urea nitrogen/Creatinine [Mass ratio] 17.5 mg/mg 10-20 [facility] Work Phone: [phone] Laboratory - Hematology and Cell countson 08-12-2022 Erythrocyte distribution width (RBC) [Entitic vol] 44.5 fL 35.1-43.9 [facility] Work Phone: [phone] Erythrocyte distribution width (RBC) [Ratio] 13.6 % 11.6-14.6 [facility] Work Phone: [phone] Immature granulocytes/100 WBC (Bld) 0.400 % 0.0-0.9 [facility] Work Phone: [phone] Comment on above: IG% - Immature Granu locytes (promyelocytes, myelocytes and metamyelocytes) > 1% indicates that a LEFT SHIFT is Present. MCH (RBC) [Entitic mass] 29.1 pg 27.0-32.0 [facility] Work Phone: [phone] Nucleated RBC/100 WBC (Bld) [Ratio] 0 % 0-5 [facility] Work Phone: [phone] MCHC Auto (RBC) [Mass/Vol]on 08-12-2022 MCHC (RBC) [Mass/Vol] 32.4 g/dL 32-36 [facility] Work Phone: [phone] No Panel Informationon 08-12 Estimated GFR (MDRD) Amer 100 mL/min >60 [facility] Work Phone: [phone] Comment on above: GFR Calc Estimated GFR (MDRD) Non-Af Amer 83 mL/min >60 [facility] Work Phone: [phone] Comment on above: Non- GFR Calc Free Triiodothyronine (T3) pg/dL 2.6 pg/mL 2.18-3.98 [facility] Work Phone: [phone] Thyroid Stimulating Hormone (TSH) 0.57 uIU/mL 0.358-3.74 [facility] Work Phone: [phone] Vitamin D 25-Hydroxy 38.0 ng/mL [facility] Work Phone: [phone] Comment on above: Vitamin D 25(OH) Sta tus Range Deficiency <20 ng/mL (50nmol/L) Insufficiency 20 - 30 ng/mL (50 - 75 nmol/L) Sufficiency 30 - 100 ng/mL (75 - 250 nmol/L) Toxicity >100 ng/mL (>250 nmol/L) Platelets bldon 08-12-2022 Platelets (Bld) [#/Vol] 231 10*3/uL 150-450 [facility] Work Phone: Serum or plasma albumin zheng urement (mass/volume)on 08-12-2022 Albumin [Mass/Vol] 3.8 g/dL 3.2-5.0 [facility] Work Phone: Serum or plasma albumin/glob ulin mass ratioon 08-12-2022 Albumin/Globulin [Mass ratio] 1.1 {ratio} 0.9-2.4 [facility] Work Phone: Serum or plasma calcium zheng urement (mass/volume)on 08-12-2022 Calcium [Mass/Vol] 8.5 mg/dL 8.5-10.1 [facility] Work Phone: Serum or plasma creatinine m easurement (mass/volume)on 08-12-2022 Creatinine [Mass/Vol] 0.80 mg/dL 0.55-1.02 [facility] Work Phone: Comment on above: The validity of the calculated GFR & GFRAA in patients over 70 years has not been determined. Clinical correlation is essential. 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 Gomez. This included a discussion of genes, chromosomes, inherited forms of colon polyps and colon cancer, and the genes known to cause colon polyps. We discussed that most colon polyps and cancers are not due to an inherited genetic susceptibility. However, in about 5-10% of families, there is an inherited genetic mutation that can make a person more susceptible to developing colon polyps and/or colon cancer. Within these families, we often see many family members with polyps or cancer, occurring in multiple generations. In addition, an earlier age at diagnosis is suggestive on an inherited form of cancer. We discussed attenuated Familial Adenomatous Polyposis (AFAP) due to mutations in the APC gene. Individuals with AFAP have fewer polyps and a later age of onset than what is seen in classic FAP. Mutations in the APC gene are inherited in a dominant pattern and are typically clustered in the 5? and 3? ends of the APC gene. Individuals who carry a mutation in the APC gene have up to an 80% risk for developing colon cancer. Other cancers seen in families with classic FAP or AFAP include small bowel (4-12%), gastric (1%), pancreatic, and hepatoblastoma. Approximately 1/3 of individuals with a mutation in the APC gene do not have a family history because the mutation is a new (de vainca) mutation. Management of AFAP includes annual colonoscopy and an upper endoscopy every 1-3 years. Children who are known to carry a mutation in the APC gene should undergo surveillance for hepatoblastoma until 5 years of age. We also discussed the possibility of MUTYH- associated polyposis (MAP) which is very similar to AFAP. Individuals with MAP typically have 20-200 polyps and up to an 80% risk for developing colon cancer. MAP is due to mutations in the MUTYH gene, and mutations are inherited in a recessive pattern. Carriers are not known to have a high risk for colon polyps or colon cancer.. Surveillance for cancers and polyps is usually restricted to the GI tract. Ms. Gomez's history is not entirely consistent with a polyposis syndrome, as she has not had multiple polyps. She has one 2nd degree relative with later onset colon cancer, so we discussed Pina syndrome, an autosomal dominant condition caused by germline mutations in one of five genes - MLH1, MSH2, MSH6, PMS2, and EPCAM. Mutation carriers have an increased risk to develop colon cancer over their lifetime (80%), and an increased risk for a second colon primary. At least two-thirds of the colon cancers occur on the right side of the colon. Female mutation carriers have an increased risk for endometrial cancer (60-70%) and ovarian cancer (12%). Other cancers associated with Pina syndrome include gastric cancer, hepatobiliary, small bowel, urinary tract, and rarely pancreatic cancer. We reviewed that Pina syndrome is the most common inherited predisposition to colon cancer; however, there are other rarer colon cancer susceptibility syndromes. We reviewed that Ms. Gomez does not currently meet NCCN or insurance company guidelines for genetic testing, so if she elects to pursue testing, this would be an out of pocket cost for her. Currently, labs offer a patient out of pocket cost of $250. She would like to consider the option of testing, and will contact us if/when she decides to pursue testing. Our office can be reached by calling [phone]. Tania Cardoso MS Licensed Genetic Counselor Reviewed by: Jen Alas MD, PhD Clinical Thread Grinder . Chief Complaint A telephone visit (audio only) between the patient (at the originating site) and the provider (at the distant site) was utilized to provide this telehealth service. Personal history of a tubullovillous adenoma Family history of colon cancer Reference Documentation See scanned note pedigree. History of Present Illness HISTORY OF PRESENT ILLNESS: Ms. Brice Gomez is a 40-year old female with a personal history of a tubulovillous adenoma and a family history of colon cancer. She was referred to the Cancer Genetics Clinic at [facility] and she is interested in genetic testing to clarify her personal risks for cancer, as well as the risks to her family members. CANCER MEDICAL HISTORY: PERSONAL HISTORY OF CANCER? No CANCER SCREENING HISTORY: Mammograms? Yes Previous breast biopsies? Yes, benign Vaginal ultrasound? Yes, history of ovarian cysts CA-125? No PAP smear? Yes, all negative Colonoscopy? Yes, first scope identified one polyp. Pathology consistent with tubulovillous adenoma. She underwent a right colectomy on 12/21/20. Dermatology? yes, benign moles removed Other cancer screening? No REPRODUCTIVE HISTORY: # Children: 2 # Pregnancies: 2 Age first : 23 Menarche (age): 9 Menopause (age): n/a OCP: Yes, 10 year (more content not included)... Normal [facility] Post Op (Colon and Rectal Tineo rgery)on 02-10-2021 Post Op (Colon and Rectal Surgery) Diagnoses/Problems Assessed Tubulovillous adenoma (229.9) (D36.9) Provider Impressions S/p right colectomy for polyp. Pathology revealed TVA. Doing well Plan: -Diet: OK to slowly advance diet. -Activity: as tolerated -Follow-up with Dr. Gary or ar PRN -Colonoscopy in [address] Anaya -All questions and concerns were answered. Encouraged to call with any question or concerns. Chief Complaint POV History of Present Illness Brice Hays is a 40-year-old female with history of right colon polyp. She underwent right hemicolectomy on 12/21/2020. Pathology revealed tubular villous adenoma. She did present to the local ER yesterday with left-sided abdominal pain. I spoke with the ER doctor who did not feel like this was surgical related he thought maybe it had to do with a ruptured ovarian cyst. She was seen after that. Dr. Gary reviewed CT scan and was concerned about any colorectal issues. Spoke with patient last week. She was having symptoms consistent with PSBO. We had her do clear liquids for 24 hours. The pain resolved. She is having 1-2 BM's. Stools are mush. Appetite is good. Energy is improving. She went back to work on 02/03/21. She sees medical genetics on 02/22/21. Still some issues post Covid infection. Review of Systems Constitutional: no fever and no chills. Gastrointestinal: as noted in HPI. Psychiatric: depression, but no anxiety. Active Problems Problems Colon neoplasm (239.0) (D49.0) Left lower quadrant abdominal pain (789.04) (R10.32) Left upper quadrant abdominal pain (789.02) (R10.12) Tubulovillous adenoma (229.9) (D36.9) Past Medical History Problems History of COVID-19 (079.89) (U07.1) History of gastroesophageal reflux (GERD) (V12.79) (Z87.19) History of hiatal hernia (V12.79) (Z87.19) History of irritable bowel syndrome (V12.79) (Z87.19) History of sleep apnea (V13.89) (Z86.69) History of tachycardia (V13.89) (Z87.898) History of Kidney stones, calcium oxalate (592.0) (N20.0) Surgical History Problems History of Breast biopsy History of section History of Endometrial biopsy History of Tubal ligation Family History Grandmother Family history of malignant neoplasm of breast (V16.3) (Z80.3) Grandfather Family history of malignant neoplasm of colon (V16.0) (Z80.0) Family history of malignant neoplasm of esophagus (V16.0) (Z80.0) Social History Problems No tobacco/smoke exposure Rarely consumes alcohol (V49.89) (Z78.9) Allergies Medication CeleXA TABS Recorded By: Alexandra Quiñones; 11/24/2020 11:16:13 AM clarithromycin Recorded By: Alexandra Quiñones; 11/24/2020 11:16:13 AM Entex ER Recorded By: Alexandra Quiñones; 11/24/2020 11:16:13 AM Flagyl Recorded By: Alexandra Quiñones; 11/24/2020 11:16:13 AM Keflex Recorded By: Alexandra Quiñones; 11/24/2020 11:16:13 AM minocycline Recorded By: Alexandra Quiñones; 11/24/2020 11:16:13 AM Penicillins Recorded By: Alexandra Quiñones; 11/24/2020 11:16:13 AM Current Meds Medication NameInstruction clonazePAM 0.5 MG Oral Tablet HYDROcodone-Acetaminophe n 5-325 MG Oral Tablet Lisinopril 2.5 MG Oral Tablet Metoprolol Succinate ER 25 MG Oral Tablet Extended Release 24 Hour Multi-Vitamin Oral Tablet NexIUM 40 MG Oral Capsule Delayed Release Ondansetron HCl - 4 MG Oral Tablet Probiotic Oral Capsule Viibryd 10 MG Oral Tablet Vitamin D3 25 MCG (1000 UT) Oral Capsule Wellbutrin XL 300 MG Oral Tablet Extended Release 24 Hour Zyrtec 10 MG TABS Vitals Vital Signs Recorded: 10Feb2021 09:26AM Ninetlbukmw07.6 F, Temporal Heart Rate84 [id number], LUE, Sitting Wbhfndyal34, LUE, Sitting Blood Pressure Cuff SizeAdult Height4 ft 11 in Tsqwiv753 lb BMI Wppmrwksaa95.9 BSA Calculated1.65 Tobacco Useb) No Physical Exam Constitutional - General appearance: In no acute distress, well appearing and well nourished. Pulmonary - Respiratory effort: Normal respiration. Abdomen and Pelvis - Abdomen: Non-tender, no abdominal masses, Assessment of incision: Clean, dry, and intact Signatures Electronically signed by : Shannon Maciel APRN-PALS NURSE; Feb 10 2021 10:30AM EST (Author) Normal [facility] Post Op (Colon and Rectal Tineo rgery)on 01-12-2021 Post Op (Colon and Rectal Surgery) Diagnoses/Problems Assessed Tubulovillous adenoma (229.9) (D36.9) Orders Tubulovillous adenoma Medical Genetics Referral Evaluation and Treatment Evaluate AND Treat Status: Hold For - Scheduling Requested for: [id number] Provider Impressions S/p right colectomy for polyp. Pathology revealed TVA. Incision is healed. LLQ pain likely related to ovarian cyst Plan: -F/u with [facility] -F/u with me in 4 weeks or sooner if any problems -Colonoscopy in 1 year then likely they will recommended colonoscopy every 3 years. I gave her a copy of her pathology and her CT scan disc. -Referral to medical genetics. Chief Complaint POV History of Present Illness Brice Hays is a 40-year-old female with history of right colon polyp. She underwent right hemicolectomy on 12/21/2020. Pathology revealed tubular villous adenoma. She did present to the local ER yesterday with left-sided abdominal pain. I spoke with the ER doctor who did not feel like this was surgical related he thought maybe it had to do with a ruptured ovarian cyst. Dr. Gary reviewed CT scan. Anastomosis looks fine. He agrees likely this is ovarian cyst related. She was doing pretty well until with she started with this LLQ pain. She is eating and drinking. She is moving her bowels 2-3 times daily. Denies any F/C, N/V. Active Problems Problems Colon neoplasm (239.0) (D49.0) Tubulovillous adenoma (229.9) (D36.9) Past Medical History Problems History of COVID-19 (079.89) (U07.1) History of gastroesophageal reflux (GERD) (V12.79) (Z87.19) History of hiatal hernia (V12.79) (Z87.19) History of irritable bowel syndrome (V12.79) (Z87.19) History of sleep apnea (V13.89) (Z86.69) History of tachycardia (V13.89) (Z87.898) History of Kidney stones, calcium oxalate (592.0) (N20.0) Surgical History Problems History of Breast biopsy History of section History of Endometrial biopsy History of Tubal ligation Family History Grandmother Family history of malignant neoplasm of breast (V16.3) (Z80.3) Grandfather Family history of malignant neoplasm of colon (V16.0) (Z80.0) Family history of malignant neoplasm of esophagus (V16.0) (Z80.0) Social History Problems No tobacco/smoke exposure Rarely consumes alcohol (V49.89) (Z78.9) Allergies Medication CeleXA TABS Recorded By: Alexandra Quiñones; 11/24/2020 11:16:13 AM clarithromycin Recorded By: Alexandra Quiñones; 11/24/2020 11:16:13 AM Entex ER Recorded By: Alexandra Quiñones; 11/24/2020 11:16:13 AM Flagyl Recorded By: Alexandra Quiñones; 11/24/2020 11:16:13 AM Keflex Recorded By: Alexandra Quiñones; 11/24/2020 11:16:13 AM minocycline Recorded By: Alexandra Quiñones; 11/24/2020 11:16:13 AM Penicillins Recorded By: Alexandra Quiñones; 11/24/2020 11:16:13 AM Current Meds Medication NameInstruction clonazePAM 0.5 MG Oral Tablet HYDROcodone-Acetaminophe n 5-325 MG Oral Tablet Lisinopril 2.5 MG Oral Tablet Metoprolol Succinate ER 25 MG Oral Tablet Extended Release 24 Hour Multi-Vitamin Oral Tablet NexIUM 40 MG Oral Capsule Delayed Release Ondansetron HCl - 4 MG Oral Tablet Probiotic Oral Capsule Viibryd 10 MG Oral Tablet Vitamin D3 25 MCG (1000 UT) Oral Capsule Vitamin D3 25 MCG (1000 UT) Oral Capsule Wellbutrin SR 150 MG Oral Tablet Extended Release 12 Hour Zyrtec 10 MG TABS Vitals Vital Signs Recorded: 12Jan2021 01:15PM Heart Rate80 Ctxelftt33 Scemwmtav04 Height5 ft Hzvfbz847 lb BMI Izxtvtprfi68.27 BSA Calculated1.67 Tobacco Useb) No Fall Screeninga) No falls within the last year Pain Scale3-4 Physical Exam Constitutional - General appearance: In no acute distress, well appearing and well nourished. Pulmonary - Respiratory effort: Normal respiration. Auscultation of lungs: Clear to auscultation. LLQ pain. incision is healed. Lena removed in the usual fashion. Steri-strips were applied. Signatures Electronically signed by : Shannon Maciel APRN-DAISY; Jan 12 2021 3:38PM EST (Author) Normal [facility] Daily Progress Note-Anesthes ia - Painon 12-30-2020 Daily Progress Note-Anesthesia - Pain Service: Anesthesia - Pain Subjective Data: BRICE GOMEZ is a 40 year old Female who is Hospital Day # 3 and POD #2 for 1. Right colectomy;2. ;3. ;4. ;5. Pain rated 8/10. 24 hour opioid consumption 10 mg oxycodone. Objective Data: Objective Information: T PRBPSpO2 Value36.55215119/7595% Date/Time12/30 5:462 5:4612/30 5:4612/30 5:462 5:46 Range(35.8C - 37.1C ) (85 - 97 ) (16 - 16 ) (96 - 113 )/ (63 - 75 ) (95% - 97% ) Highest temp of 37.1 C was recorded at 12/29 21:30 Pain reported at 12/29 22:19: sleeping ---- Intake and Output ----- Mn/Dy/Year TimeIntakeOutputNet Dec 30, 2020 6:00 [id number] Dec 29, 2020 10:00 [id number] Dec 29, 2020 2:00 [id number] The Intake and Output Totals for the last 24 hours are: IntakeOutputNet [id number] Physical Exam by System: Constitutional: Well developed, awake/alert/oriented x3, no distress, alert and cooperative Eyes: PERRL, EOMI, clear sclera ENMT: mucous membranes moist, no apparent injury, no lesions seen Head/Neck: Neck supple, no apparent injury Respiratory/Thorax: Patent airways, CTAB, normal breath sounds with good chest expansion, thorax symmetric Cardiovascular: Regular, rate and rhythm Gastrointestinal: Nondistended, soft, non-tender Musculoskeletal: ROM intact Extremities: normal extremities, no cyanosis edema, contusions or wounds, no clubbing Neurological: alert and oriented x3 Psychological: Appropriate mood and behavior Skin: Warm and dry, no lesions, no rashes Assessment and Plan: Code Status: Code StatusFull Code Assessment: 40 year old Female PMH IBS and colonic mass who presents today for colectomy with Dr. Gary. Acute Pain consulted for block for postoperative pain control. - B/L QL blocks w/ catheters performed preoperatively. Bolus 10 cc .5% ropivicaine b/l. - Pain 8/10 - Pain medications per primary team - d/c catheters today acute pain service will sign off at this time Hugo Price CA-2 [place] [phone] ph [phone] Signature/Cosignature/At testation: Note Completion: I am a: Resident/Fellow Attending [...] the note. I personally evaluated the patient [id number] Electronic Signatures: Hugo Price (DO (Resident)) (Signed 30-Dec-2020 09:13) Authored: Service, Subjective Data, Objective Data, Assessment and Plan, Note Completion Peter Hazel) (Signed 30-Dec-2020 10:50) Authored: Note Completion Co-Signer: Service, Subjective Data, Objective Data, Assessment and Plan, Note Completion Last Updated: 30-Dec-2020 10:50 by Peter Hazel) Normal [facility] Daily Progress Note-Colorect al Surgeryon 12-30-2020 Daily Progress Note-Colorectal Surgery Service: Colorectal Surgery Subjective Data: BRICE GOMEZ is a 40 year old Female who is Hospital Day # 3 and POD #2 for 1. Right colectomy;2. ;3. ;4. ;5. Overnight Events: Patient had an uneventful night. Additional Information: Patient reports that she was doing well yesterday until she ate too much for lunch and felt bloated with abdominal pain. Toradol still working well, required one time dilaudid yesterday. Ambulating in room and to bathroom. Had bowel movement. Reports some cough and has been using IS. Objective Data: Objective Information: T PRBPSpO2 Value36.06329658/7595% Date/Time12/30 5: 5: 5: 5: 5:46 Range(35.8C - 37.1C ) (85 - 97 ) (16 - 16 ) (96 - 113 )/ (63 - 75 ) (95% - 97% ) Highest temp of 37.1 C was recorded at 12/29 21:30 Pain reported at 12/30 8:36: 2 = Mild ---- Intake and Output ----- Mn/Dy/Year TimeIntakeOutputNet Dec 30, 2020 6:00 [id number] Dec 29, 2020 10:00 [id number] Dec 29, 2020 2:00 [id number] The Intake and Output Totals for the last 24 hours are: IntakeOutputNet [id number] Physical Exam by System: Constitutional: Well developed, no distress, alert and cooperative Head/Neck: NCAT Respiratory/Thorax: no increased work of breathing, equal chest rise Cardiovascular: Regular, rate and rhythm Gastrointestinal: Nondistended, soft, non tender to palpation. OnQ pump in place. Extremities: CRAFT Neurological: alert and oriented Psychological: Appropriate mood and behavior Skin: Midline surgical incision dressing removed, lena in place, no hematoma or bleeding Medication: Medications: Continuous Medications -------- 1. Ropivacaine 0.2%/ NaCL 0.9% 600 mL: 1200 mg Peripheral Nerve Scheduled Medications -------- 1. Acetaminophen: 650 mg Oral Every 6 Hours 2. buPROPion (WELLBUTRIN SR) Extended Release (12 hour): 150 mg Oral Every 12 Hours 3. Enoxaparin SubCutaneous: 40 mg SubCutaneous Every 24 Hours 4. Gabapentin: 300 mg Oral 3 Times a Day 5. Ketorolac Injectable: 15 mg IntraVenous Push Every 6 Hours 6. Loratadine: 10 mg Oral Daily 7. Metoprolol Succinate Extended Release: 25 mg Oral Daily 8. Pantoprazole: 40 mg Oral Daily 9. Vilazodone Maintenance: 10 mg Oral Daily PRN Medications -------- 1. Ondansetron Injectable: 4 mg IntraVenous Push Every 6 Hours 2. oxyCODONE Immediate Release: 5 mg Oral Every 4 Hours 3. oxyCODONE Immediate Release: 10 mg Oral Every 4 Hours Assessment and Plan: Code Status: Code StatusFull Code Assessment: Assessment: 40 year old female with Hx of colon polyps who is POD#2 s/p right colectomy. Patient is progressing well from the surgery. Plan: NEURO: -continue tylenol, oxycodone, toradol, gabapentin for pain, discontinue dilaudid -management of block per anesthesia -continue home viibryd and wellbutrin PULM: -encourage IS CV: -continue home metoprolol -hold home lisinopril GI: -continue soft diet, educated patient about self-regulating -zofran for nausea RENAL: -HLIV : -I&Os HEME: -no need for transfusion ENDO: -no issues ID: -no abx indicated Skin: -dressing off today, incision looks good, no sign of infection Prophylaxis: -protonix -lovenox Dispo: -close to be ready for discharge, later today or tomorrow Seen with chief Dr. Hernandez, discussed with attending Dr. Hank Purcell MD PGY 1 General Surgery Colorectal Surgery [place] Service pager [phone] Signature/Cosignature/At testation: Note Completion: I am a: Resident/Fellow Attending [...] the note. I personally evaluated the patient [id number] Electronic Signatures: Aman Gary () (Signed 04-Jan-2021 22:48) Authored: Note Completion Co-Signer: Service, Subjective Data, Objective Data, Assessment and Plan, Note Completion John Purcell (Resident)) (Signed 30-Dec-2020 09:01) Authored: Service, Subjective Data, Objective Data, Assessment and Plan, Note Completion Last Updated: 04-Jan-2021 22:48 by Aman Gary () Normal [facility] BASIC METABOLIC PANELon 02-0 Anion gap [Moles/Vol] 12 mmol/L Normal 10 - 20 [facility] Comment on above: Performed By: #### B MP ####[id number] [place] [address] Calcium [Mass/Vol] 9.0 mg/dL Normal 8.6 - 10.6 [facility] [place] Comment on above: Performed By: #### B MP ####[id number] [place] [address] Chloride [Moles/Vol] 106 mmol/L Normal 98 - 107 [facility] Comment on above: Performed By: #### B MP ####[id number] [place] [address] Creatinine [Mass/Vol] 0.63 mg/dL Normal 0.50 - 1.05 [facility] Comment on above: Performed By: #### B MP ####[id number] [place] [address] GFR- AM. >60 Normal >60 [facility] Comment on above: Result Comment: CALC ULATIONS OF ESTIMATED GFR ARE PERFORMED USING THE MDRD STUDY EQUATION FOR THE IDMS-TRACEABLE CREATININE METHODS. CLIN CHEM 2007;53:766-72 Performed By: #### B MP ####[id number] [place] [address] GFR-NON AM. >60 Normal >60 [facility] Comment on above: Performed By: #### B MP ####[id number] [place] [address] Glucose [Mass/Vol] 105 mg/dL High 74 - 99 [facility] [place] Comment on above: Performed By: #### B MP ####[id number] [place] [address] HCO3 (Bld) [Moles/Vol] 22 mmol/L Normal 21 - 32 [facility] Comment on above: Performed By: #### B MP ####[id number] [place] [address] Potassium [Moles/Vol] 4.0 mmol/L Normal 3.5 - 5.3 [facility] Comment on above: Performed By: #### B MP ####[id number] [place] [address] Sodium [Moles/Vol] 136 mmol/L Normal 136 - 145 [facility] [place] Comment on above: Performed By: #### B MP ####[id number] [place] [address] Urea nitrogen [Mass/Vol] 12 mg/dL Normal 6 - 23 [facility] Comment on above: Performed By: #### B MP ####[id number] [place] [address] CBCon 12-29-2020 Erythrocyte distribution width (RBC) [Ratio] 14.0 % Normal 11.5 - 14.5 [facility] Comment on above: Performed By: #### C BC ####[id number] [place] [address] Hematocrit (Bld) [Volume fraction] 31.6 % Low 36.0 - 46.0 [facility] Comment on above: Performed By: #### C BC ####[id number] [place] [address] Hemoglobin (Bld) [Mass/Vol] 9.9 g/dL Low 12.0 - 16.0 [facility] Comment on above: Performed By: #### C BC ####[id number] [place] [address] MCHC (RBC) [Mass/Vol] 31.3 g/dL Low 32.0 - 36.0 [facility] Comment on above: Performed By: #### C BC ####[id number] [place] [address] MCV (RBC) [Entitic vol] 90 fL Normal 80 - 100 [facility] Comment on above: Performed By: #### C BC ####[id number] [place] [address] NUCLEATED RBC 0.0 /100 WBC Normal 0.0-0.0 [facility] Comment on above: Performed By: #### C BC ####[id number] [place] [address] Platelets (Bld) [#/Vol] 227 10*3/uL Normal 150 - 450 [facility] Comment on above: Performed By: #### C BC ####[id number] [place] [address] RBC 3.52 x10E12/L Low 4.00 - 5.20 [facility] Comment on above: Performed By: #### C BC ####[id number] [place] [address] WBC (Bld) [#/Vol] 10.7 10*3/uL Normal 4.4 - 11.3 [facility] Comment on above: Performed By: #### C BC ####[id number] [place] [address] Daily Progress Note-Anesthes ia - Painon 12-29-2020 Daily Progress Note-Anesthesia - Pain Service: Anesthesia - Pain Subjective Data: BRICE GOMEZ is a 40 year old Female who is Hospital Day # 2 and POD #1 for 1. Right colectomy;2. ;3. ;4. ;5. Pain rated 7/10. 24 hour opioid consumption .8 mg dilaudid and 30 mg oxycodone. Objective Data: Objective Information: T PRBPSpO2 Value36.5998841/5993% Date/Time12/29 5: 5: 5: 5: 5:01 Range(36.5C - 37.3C ) (77 - 96 ) (15 - 16 ) (91 - 105 )/ (54 - 69 ) (93% - 96% ) Highest temp of 37.3 C was recorded at 12/28 21:38 Pain reported at 12/29 6:06: 6 = Moderate ---- Intake and Output ----- Mn/Dy/[facility]Out[facility] Dec 29, 2020 6:00 [id number] Dec 28, 2020 10:00 [id number] Dec 28, 2020 2:00 [id number] The Intake and Output Totals for the last 24 hours are: IntakeOutputNet [id number] Physical Exam by System: Constitutional: Well developed, awake/alert/oriented x3, no distress, alert and cooperative Eyes: PERRL, EOMI, clear sclera ENMT: mucous membranes moist, no apparent injury, no lesions seen Head/Neck: Neck supple, no apparent injury Respiratory/Thorax: Patent airways, CTAB, normal breath sounds with good chest expansion, thorax symmetric Cardiovascular: Regular, rate and rhythm Gastrointestinal: Nondistended, soft, non-tender Musculoskeletal: ROM intact Extremities: normal extremities, no cyanosis edema, contusions or wounds, no clubbing Neurological: alert and oriented x3 Psychological: Appropriate mood and behavior Skin: Warm and dry, no lesions, no rashes Medication: Medications: Continuous Medications -------- 1. Lactated Ringers Infusion: 1000 mL IntraVenous 2. Ropivacaine 0.2%/ NaCL 0.9% 600 mL: 1200 mg Peripheral Nerve Scheduled Medications -------- 1. Acetaminophen: 650 mg Oral Every 6 Hours 2. buPROPion (WELLBUTRIN SR) Extended Release (12 hour): 150 mg Oral Every 12 Hours 3. Enoxaparin SubCutaneous: 40 mg SubCutaneous Every 24 Hours 4. Gabapentin: 300 mg Oral 3 Times a Day 5. Ketorolac Injectable: 15 mg IntraVenous Push Every 6 Hours 6. Metoprolol Succinate Extended Release: 25 mg Oral Daily 7. Pantoprazole: 40 mg Oral Daily PRN Medications -------- 1. HYDROmorphone Injectable: 0.4 mg IntraVenous Push Every 6 Hours 2. Ondansetron Injectable: 4 mg IntraVenous Push Every 6 Hours 3. oxyCODONE Immediate Release: 5 mg Oral Every 4 Hours 4. oxyCODONE Immediate Release: 10 mg Oral Every 4 Hours Assessment and Plan: Code Status: Code StatusFull Code Assessment: 40 year old Female PMH IBS and colonic mass who presents today for colectomy with Dr. Gary. Acute Pain consulted for block for postoperative pain control. - B/L QL blocks w/ catheters performed preoperatively. Bolus 10 cc .5% ropivicaine b/l. - Pain medications per primary team - Will see while [place] [phone] Signature/Cosignature/At testation: Note Completion: I am a: Resident/Fellow Attending [...] the note. I personally evaluated the patient [id number] Electronic Signatures: Isabel Moore (Resident)) (Signed 29-Dec-2020 08:44) Authored: Service, Subjective Data, Objective Data, Assessment and Plan, Note Completion Peter Hazel) (Signed 29-Dec-2020 11:56) Authored: Note Completion Co-Signer: Assessment and Plan Last Updated: 29-Dec-2020 11:56 by Peter Hazel) Normal [facility] Daily Progress Note-Colorect al Surgeryon 12-29-2020 Daily Progress Note-Colorectal Surgery Service: Colorectal Surgery Subjective Data: BRICE GOMEZ is a 40 year old Female who is Hospital Day # 2 and POD #1 for 1. Right colectomy;2. ;3. ;4. ;5. Overnight Events: Patient had an uneventful night. Additional Information: Pain is under good control. Had some nausea but no vomiting. Urinating spontaneously, ambulating to bathroom. Tolerating clear liquid diet. Had some right shoulder pain which resolved with ice pack. Objective Data: Objective Information: T PRBPSpO2 Value36.57305350/7197% Date/Time12/29 13: 13: 9: 13: 13:14 Range(35.8C - 37.3C ) (86 - 97 ) (16 - 16 ) (91 - 106 )/ (54 - 71 ) (93% - 97% ) Highest temp of 37.3 C was recorded at 12/28 21:38 Pain reported at 12/29 6:06: 6 = Moderate ---- Intake and Output ----- Mn/Dy/Year TimeIntakeOutputNet Dec 29, 2020 2:00 [id number] Dec 29, 2020 6:00 [id number] Dec 28, 2020 10:00 [id number] The Intake and Output Totals for the last 24 hours are: IntakeOutputNet [id number] Physical Exam by System: Constitutional: Well developed, no distress, alert and cooperative Head/Neck: NCAT Respiratory/Thorax: no increased work of breathing, equal chest rise Cardiovascular: Regular, rate and rhythm Gastrointestinal: Nondistended, soft, non tender to palpation Extremities: CRAFT Neurological: alert and oriented Psychological: Appropriate mood and behavior Skin: Midline surgical incision under dressing, with strikethrough. Medication: Medications: Continuous Medications -------- 1. Ropivacaine 0.2%/ NaCL 0.9% 600 mL: 1200 mg Peripheral Nerve Scheduled Medications -------- 1. Acetaminophen: 650 mg Oral Every 6 Hours 2. buPROPion (WELLBUTRIN SR) Extended Release (12 hour): 150 mg Oral Every 12 Hours 3. Enoxaparin SubCutaneous: 40 mg SubCutaneous Every 24 Hours 4. Gabapentin: 300 mg Oral 3 Times a Day 5. Ketorolac Injectable: 15 mg IntraVenous Push Every 6 Hours 6. Loratadine: 10 mg Oral Daily 7. Metoprolol Succinate Extended Release: 25 mg Oral Daily 8. Pantoprazole: 40 mg Oral Daily 9. Vilazodone Maintenance: 10 mg Oral Daily PRN Medications -------- 1. HYDROmorphone Injectable: 0.4 mg IntraVenous Push Every 6 Hours 2. Ondansetron Injectable: 4 mg IntraVenous Push Every 6 Hours 3. oxyCODONE Immediate Release: 5 mg Oral Every 4 Hours 4. oxyCODONE Immediate Release: 10 mg Oral Every 4 Hours Recent Lab Results: Results: CBC: 12/29/2020 05:46 \ Hgb / \ 9.9 L / WBC Plt 10.7 227 / Hct \ / 31.6 L \ RBC: 3.52 L MCV: 90 BMP: 12/29/2020 05:46 NA+ Cl- BUN / 136 106 12 / -------- Glucose --- 105 H K+ HCO3- Creat \ 4.0 22 0.63 \ Calcium : 9.0 Anion Gap : 12 Assessment and Plan: Code Status: Code StatusFull Code Assessment: Assessment: 40 year old female with Hx of colon polyps who is POD#1 s/p right colectomy. Patient is progressing well from the surgery. Plan: NEURO: -continue tylenol, oxycodone, toradol, gabapentin for pain, dilaudid for breakthrough -management of block per anesthesia -continue home viibryd and wellbutrin PULM: -encourage IS CV: -continue home metoprolol -hold home lisinopril GI: -advance to soft diet -zofran for nausea RENAL: -HLIV : -I&Os HEME: -no need for transfusion ENDO: -no issues ID: -no abx indicated Skin: -dressing off POD2 Prophylaxis: -protonix -lovenox Dispo: -continue RNF, possible discharge soon Seen with chief Dr. Hernandez, discussed with attending Dr. Hank Purcell MD PGY 1 General Surgery Colorectal Surgery [place] Service pager [phone] Signature/Cosignature/At testation: Note Completion: I am a: Resident/Fellow Attending [...] the note. I personally evaluated the patient [id number] Electronic Signatures: Aman Gary () (Signed 04-Jan-2021 22:48) Authored: Note Completion Co-Signer: Service, Subjective Data, Objective Data, Assessment and Plan, Note Completion John Purcell (Resident)) (Signed 29-Dec-2020 14:50) Authored: Service, Subjective Data, Objective Data, Assessment and Plan, Note Completion Last Updated: 04-Jan-2021 22:48 by Aman Gary) [facility] Discharge Planning [id number] 12-29-2020 Discharge Planning Note2 Discharge Plann ing: Needs Prior to Discharge (ex. Home Care Orders, IV/O2 prescriptions) none Discharge Barriers (ex. Avoidable days, wait guardianship, pt refuse leave) none Planned Dispositionhome Discharge DestinationHome, self care. Anticipated Discharge [id number] Discharge Planning 12/29/2020 1354 Transitional Care Coordination Progress Note: Patient discussed during interdisciplinary rounds. Team members present: DAISY, IMELDA, RD, TCC and PCN Plan per Medical/Surgical team: pt POD# 1 s/p right colectomy, pt on soft diet. Status: Inpatient Payor source: Commercial Discharge disposition: Home, self care. Potential Barriers: none ADOD: 12/30-12/31 Admission assessment completed at the bedside with the patient. See assessment tab for details. Pt's will transport pt home when medically ready. Shira DELGADO [id number] 12/29/20 SW NOTE 1511 IMELDA met with patient and patient's at bedside. Patient states they live at home with their and two sons. Patient states their mother in law and grandma also live nearby. Patient states they work [employer]. Patient states they are not picking up hours until they are able to work again. Patient's states they are taking PTO to help take care of patient. Patient's states they will transport patient home. Patient states no financial concerns. SW will continue to follow. -EDITH Durham [id number] Assessment: Discharge Planning Assessment [id number] Discharge Planning Assessment Completed byShira Be RN TCC Primary Contact Name and Numberchad [phone](1) Stated Reason for Admissionsurgery(2) Arrived FromOR (2) Readmission Within the Last 30 Daysno previous admission in last 30 days PCPDr. Kimble PCP Last Date SeenFour months ago [facility] Adherence/Afford/Obtainy es InsuranceCommercial/ [place] state plan Lives Withspouse(2) Living Arrangementshouse; Patient lives in two [place] home. Recent Falls/ Injury/ Need Assist with Ambulationdenies recent falls, denies use of assistive devices for ambulation. Prior Level of FunctioningIndependent with ADL's/IADL's Home Care Agency/Support Servicesnone DME Supplier Name/Numbernone O2 LPMnone Home O2 Suppliernone Diabetic/Supplies Needednone Hemodialysis Schedulenone Other Needsnone Resource/Environmental Concernsnone(2) Social Determinants of Health Identifiednone Special Considerationsnone Transportation Home Who/HowPatients will transport home when medically ready for discharge. Anticipated Transition T[place](2) Services Anticipated at Transitionnone(2) Anticipated Changes Related to Illnessnone Equipment Needed After Dischargenone Anticipated Discharge Facility/Level of Care NeedsHome Electronic Signatures: Shira Be (COBABS) (Signed 29-Dec-2020 13:58) Authored: Discharge Planning, Assessment Bill Potts (IMELDA) (Signed 29-Dec-2020 15:14) Authored: Discharge Planning Last Updated: 29-Dec-2020 15:14 by Bill Potts (IMELDA) References: 1. Data Referenced From Patient Profile - Preop v2 28-Dec-2020 06:44 2. Data Referenced From Patient Profile - Adult v2 28-Dec-2020 13:07 Normal [facility] ABO/RH GROUP TESTon 12-28-19 21 ABO TYPE A Normal [facility] Comment on above: Performed By: #### V ERAB ####[id number] [place] [address] RH TYPE Positive [facility] Comment on above: Performed By: #### V ERAB ####[id number] [place] [address] Admission Risk Screen - Adul ton 12-28-2020 Admission Risk Screen - Adult Allergies: Allergies: Flagyl: Unknown Keflex: Unknown Entex: Unknown clarithromycin: Unknown Celexa: Unknown penicillin: Unknown minocycline: Unknown Patient Verification: New W ID Band Applied in my Departmentno Type of ID Patient is WearingW wristband, but not applied here Patient Transferred from Other Facility ([facility], [facility],etc)no Patient Identity Verified Bypatient ID Band FULL Name, include Middle, spelling matches patient's ID used for verificationyes ID Band Matches Patient ID used for Verficationyes ID Band MRN Matches EMR MRNyes Visitor Restriction: Coronavirus Visitor Restriction: Reasonable restrictions to in-person visitors will be observed due to current coronavirus pandemic. Travel History: COVID-19 Screening Completedno exposure or symptoms(1) Advance Directive: Advance Directive/DNRno (1) Advance Directive Information Givenpatient/family declined Post Fall Screen: History of falling (immediate or previous)no (0) Secondary Diagnosisyes (15) Intravenous Therapy/ Heparin/Saline Lockyes (20) Gait/Transferringnormal/ bedrest/wheelchair (0) Ambulatory Aidsnone/bedrest/nurse assist (0) Mental Statusoriented to own ability (0) Score: Low risk (<25). Moderate risk (25-44). High risk (>44).35 Post InterventionsLOW INTERVENTIONS: *patient oriented to surroundings and call system, * patient/family falls education completed and documented, *patients fall status communicated during bedside handoff, *whiteboard updated, *mode of toileting discussed with patient, *bed in low position with brakes locked, *call light in reach, * non-skid footwear, MODERATE INTERVENTIONS: *Low Interventions Plus: * falls risk band/sticker applied to patient, *yellow non-skid footwear, *instruct to call for assistance before getting out of bed, *bed/chair/bedside commode/toilet alarms, *sensory devices/ambulatory aides available and in reach, *medications reviewed for potential side effects and care planning., optional: hip protectors (with history of osteoporosis) Family Violence Screen: Are you or have you been threatened or abused physically, emotionally, or sexually by anyoneno Has anyone ever threatened to hurt your family or your petsno Does anyone try to keep you from having/contacting other friends or doing things outside your homeno Do you feel UNSAFE going back to the place where you are livingno Do you feel anyone has exploited or taken advantage of you financially or of your personal propertyno Clinical assessment: Are there any apparent signs of injuries/behaviors that could be related to abuse/neglectno Social Service Consult for abuse/neglect needed this visitno Functional Screen: Functional Screen: In the recent/past 2-4 weeks, patient or family have noticedno issues that require a speech/language consult at this time AM-PAC- Basic Mobility/Daily Activity: Patient baseline bedboundno Turning from your back to your side while in a flat bed without using bedrailsa little Moving from lying on your back to sitting on the side of a flat bed without using bedrailsa little Moving to and from bed to chair (including a wheelchair)a little Standing up from a chair using your arms (e.g. wheelchair or bedside chair)a little To walk in hospital rooma lot Climbing 3-5 steps with railinga lot AM-PAC Basic Mobility- Total Score16 Putting on and taking off regular lower body clothinga little Bathing (including washing, rinsing, drying)a little Putting on and taking off regular upper body clothinga little Toileting, which includes using toilet, bedpan or urinala little Taking care of personal grooming such as brushing teetha little Eating Mealsnone AM-PAC Daily Activity- Total Score19 Learning Assessment (Patient): Patient is Able to be Assessed for Learningyes Factors Influencing Readiness to Learnfatigue; pain Factors that Impact Ability to Learnnone Devices/Methods Used to Communicatenone Learning Preferenceswritten material; verbal instruction Cultural Considerationsnone Developmental Considerationsnone Jewish Considerationsnone Learning Assessment (Other Learner): Other learner availableno Depression Screen: During the past month, have you often been bothered by feeling down, depressed or hopelessno (1) During the past month, have you often had little interest or pleasure in doing thingsno (1) Have you had any thoughts of harming anyone elseno (1) [place] Suicide: Risk Screen Not Applicable/Able to Answerable to be screened In the Past Month: Have you wished you were or could go to sleep and not wake upno In the Past Month: Have you had any actual thoughts of killing yourselfno Lifetime: Have you ever done, started to do, or prepared to do anything to end your lifeno [place] Suicide Risknegative Adult Nutrition Screen: Have you recently lost weigh (more content not included)... [facility] Clinical Event Note-Colorect al Surgery Post-op Checkon 12-28-2020 Clinical Event Note-Colorectal Surgery Post-op Check Clinical Event: Clinical Event Note: TopicColorectal Surgery Post-op Check Details Post Procedure Check POD#0 s/p right colectomy S: Pt laying in bed comfortable. at bedside. Denies f/c/n/v/cp/sob. Tolerating CLD. Has some headache which was present before OR. Reports that pain is still pretty severe with current pain regimen. Gen: AAOx3, NAD CVS: RR Pulm: No conversational dyspnea, equal chest rise, satting well on room air Abd: soft, appropriately tender, nondistended. Incision with island dressing on, with strikethrough. Extrem: No edema, Vickie, SCDs in place A/P: 40 y/o female POD#0 s/p right colectomy. Patient is overall doing well but pain is not under best control. - add toradol 15mg Q6h for pain - continue CLD - will reassess in the AM John Purcell MD PGY 1 General Surgery Colorectal Surgery [place] Service pager [phone] Electronic Signatures: John Purcell ( (Resident)) (Signed 28-Dec-2020 15:24) Authored: Clinical Event Note Last Updated: 28-Dec-2020 15:24 by John Purcell ( (Resident)) [facility] Consult-Anesthesia - Painon 12-28-2020 Consult-Anesthesia - Pain Service: Service: Anesthesia - Pain Consult: Consult requested by (Attending Name): Dr. Gary Reason: Postoperative Pain Management History of Present Illness: HPI: BRICE GOMEZ is a 40 year old Female PMH IBS and colonic mass who presents today for colectomy with Dr. Gary. Acute Pain consulted for block for postoperative pain control. Anticipated Postop Pain Issues - Palliative: typically relieved with IV analgesics and regional local anesthetics Provocative: typically with movement Quality: typically burning and aching Radiation: typically none Severity: typically severe 8-10/10 Timing: typically constant PMH: tachycardia, myocarditis, astma, FLORENTINO< renal cyst, anxiety, depression, GERD, fibroid uterus PSH: Colonoscopy, EGD< breast biopsy, b/l tubal ligation, , D&C, cystoscopy, dental surgery FHx:HTN, CA SHx: Never smoker, occasional EtOH, denies illicits Allergies: PCN, flagyl, keflex, entex, clarithromycin, minocyclin, celexa Review Family/Social History and ROS: Constitutional: NEGATIVE: Fever, Malaise Eyes: NEGATIVE: Vision Loss/ Change ENMT: NEGATIVE: Nasal Discharge, Nasal Congestion Respiratory: NEGATIVE: Shortness of Breath Cardiac: NEGATIVE: Chest Pain, Syncope Gastrointestinal: NEGATIVE: Nausea Genitourinary: NEGATIVE: Hematuria Musculoskeletal: NEGATIVE: Stiffness, Weakness Neurological: NEGATIVE: Seizures, Syncope Skin: NEGATIVE: Ulcer Endocrine: NEGATIVE: Heat Intolerance, Cold Intolerance Hematologic/Lymph: NEGATIVE: Petechiae Allergies: Flagyl: Unknown Keflex: Unknown Entex: Unknown clarithromycin: Unknown Celexa: Unknown penicillin: Unknown minocycline: Unknown Objective: Physical Exam by System: Constitutional: Well developed, awake/alert/oriented x3, no distress, alert and cooperative Eyes: PERRL, EOMI, clear sclera ENMT: mucous membranes moist, no apparent injury, no lesions seen Head/Neck: Neck supple, no apparent injury Respiratory/Thorax: Patent airways, CTAB, normal breath sounds with good chest expansion, thorax symmetric Cardiovascular: Regular, rate and rhythm Gastrointestinal: Nondistended, soft, non-tender Musculoskeletal: ROM intact Extremities: normal extremities, no cyanosis edema, contusions or wounds, no clubbing Neurological: alert and oriented x3 Psychological: Appropriate mood and behavior Skin: Warm and dry, no lesions, no rashes Medications: Medications: Continuous Medications -------- 1. Lactated Ringers Infusion: 1000 mL IntraVenous 2. Ropivacaine 0.2%/ NaCL 0.9% 600 mL: 1200 mg Peripheral Nerve Scheduled Medications -------- 1. Aprepitant: 40 mg Oral Once 2. Heparin SubCutaneous: 5000 unit(s) SubCutaneous Once PRN Medications -------- 1. Acetaminophen: 650 mg Oral Every 4 Hours 2. diphenhydrAMINE Injectable: 12.5 mg IntraVenous Push Once 3. HYDROmorphone Injectable: 0.2 mg IntraVenous Push Every 5 Minutes 4. HYDROmorphone Injectable: 0.4 mg IntraVenous Push Every 5 Minutes 5. Labetalol Injectable: 5 mg IntraVenous Push Once 6. Ondansetron Injectable: 4 mg IntraVenous Push Once 7. oxyCODONE Immediate Release: 5 mg Oral Every 4 Hours 8. Promethazine IV Piggy Back: 6.25 mg IntraVenous Piggyback Once Assessment: 40 year old Female PMH IBS and colonic mass who presents today for colectomy with Dr. Gary. Acute Pain consulted for block for postoperative pain control. - B/L QL blocks w/ catheters performed preoperatively - Pain medications per primary team - Will see while cathe[place] [phone] ph [phone] Signature/Cosignature/At testation: Note Completion: I am a: Resident/Fellow Attending [...] the note. I personally evaluated the patient [id number] Electronic Signatures: Isabel Moore (Resident)) (Signed 28-Dec-2020 10:03) Authored: Service, History of Present Illness, Review Family/Social History and ROS, Allergies, Objective, Assessment/Recommendatio ns, Note Completion Peter Hazel) (Signed 29-Dec-2020 12:18) Authored: Note Completion Co-Signer: Service, History of Present Illness, Review Family/Social History and ROS, Allergies, Objective, Assessment/Recommendatio ns, Note Completion Last Updated: 29-Dec-2020 12:18 by Peter Hazel) [facility] Discharge [id number] Discharge Profile2 Discharge Orders: Anticipated Discharge Date: Anticipated Discharge [id number] Problem List: Additional Dx: Acute postoperative pain: Catalog Name: Other acute postprocedural pain Medical History: Colon polyp: Catalog Name: Polyp of colon Significant Events: Surgical Procedure: Clinical Events This Visit, 28-Dec-2020, 1. Right colectomy;2. ;3. ;4. ;5. Hospital Providers: Provider RoleProvider Name AttendingAman Gary PrimaryRequired, No Pcp AttendingAman Gary ConsultingAcute Pain Residents Activity: activity as tolerated. May shower. May not drive while taking narcotics. No pushing, pulling, or lifting objects greater than 10 pounds for 4 week(s). Weight-bearing Instructions: full weight bearing. Diet: Diet Consistency/Texturesoft, soft diet x 4 weeks, Avoid raw fruits and vegetables for couple weeks and slowly advance into diet as tolerated. Appetitie will return slowly, eat smaller more frequent meals at first, push away from table once full. Encourage FluidsDrink plenty of a variety of fluids to prevent dehydration. Signs of dehydration are: dry mouth, dark yellow urine in small amounts, and dizziness with change in position or increased feeling of weakness/tiredness. Additive/Supplement 1: Supplement. impact AR 1 serving by mouth three times a day until gone. Wound Care 1: Wound Siteabdomen Wound Typesurgical incision Change Dressing2 times a day as needed Cleanse Withsoap and water Cover Withno dressing, leave open to air Instructionsno lotions, creams, or tub soaks Other InstructionsYou have lena remaining in your incision. These will come out in 1-2 weeks at the outpatient clinic. An appointment will be made for you prior to your discharge. This incision may get wet, pat dry and cover as needed to protect your clothing, otherwise you may leave this incision open to air. Additional Orders: Additional Instructions Bowel function will be irregular at first. [...] you would like. Be sure to drink plenty of fluids if you are having diarrhea, as you can become dehydrated quickly. Call Provider If (Homegoing Patients): Fever of 100.4 F (38 C) or higher. Chills. Vomiting (throwing up) and not able to eat or drink for 12 hours. Any new concerning symptoms. If you have questions or concerns, call your doctor s office at: [phone] option #2. This phone number is answered 12/06. If it is after hours, and you need to speak to a physician, the service will answer and page the physician covering, who will return your call. Hospital Course (Home Care/Gold Form): Hospital Course: Hospital Course: include significant abnormal lab values Brice Gomez is a 40 year old female with a past medical history of GERD, IBD, and an ascending colon polyp who underwent a right hemicolectomy on 12/28/[address] Gary. She tolerated the procedure well and was [...] will follow up in a few weeks. Infectious Disease: PPD Statusnot given MRSAno VREno C. Diffno Other Resistant Organismno Isolation Typenone Provider FINAL REVIEW of Orders: Final Review: Final Review of Medication Reconciliation and Orders Completedby STEAM PRESSURE CHAMBER OPERATOR Reviewing ProviderPercy Monteiro APRN-DAISY at 30-Dec-2020 15:58:41 Name/Contact Info for Questions About [facility], [place] Service, pager [phone] Appointments: Follow-Up Appointment 01: Physician/Dept/ServiceVi riky Maciel Nurse Practitioner for Dr Gary (more content not included)... [facility] Operative Reports - [facility] [place] [address] Patient Name: JAMIE. Joshua GOMEZ : 1980 Date of Service: 12/28/2020 Patient Location: [place] [id number] Patient Type: I Surgeon: Aman Gary MD Report Type: Operative Reports PREOPERATIVE DIAGNOSIS: Right colon mass. POSTOPERATIVE DIAGNOSIS: Right colon mass. OPERATION/PROCEDURE: Right colectomy. SURGEON: Aman Gary MD RETAIL SALES MANAGER(S): Shannon Maciel, nurse practitioner. ANESTHESIA: General endotracheal. INDICATIONS: The patient is a 40-year-old female, who was recently found to have endoscopically unresectable polypoid lesion involving the ascending colon. Biopsies showed tubulovillous adenoma. The patient was brought to the operating room today for right colectomy. TECHNIQUE: The patient was brought to the operating room and was placed on the operating table in supine position. After induction of general endotracheal anesthesia, the skin of the abdomen was prepped and draped in usual sterile fashion. Surgical time-out was performed. The peritoneal cavity was then entered through a limited midline incision. The abdomen was explored. The polypoid mass in the right colon was palpable just proximal to the cecum, there was no other pathology identified within the abdomen. The lateral attachments of the cecum in the ascending colon were mobilized using electrocautery. Care was taken to identify and preserve the right ureter. The hepatic flexure was completely taken down as well avoiding injury to the duodenum. The omentum was then from the proximal half of the transverse colon as mesocolon by dissecting in the avascular plane. With the right colon fully mobilized, the ileocolic pedicle was divided and ligated near its origin. Dissection was then carried up through the mesentery of the distal ileum. The marginal ileal vessels were divided and ligated and then the terminal ileum itself was divided with a ABELINO 80 mm stapler several centimeters proximal to the ileocecal valve. Likewise, dissection was carried around the mesentery of the more proximal aspect of the right colon. The right branch of the middle colic artery and vein were identified, and these were divided and ligated near their origin. Dissection was then carried up through the transverse mesocolon and then the proximal transverse colon was divided with the firing of the ABELINO 80 mm stapler. The specimen was removed from the operative field and was sent to Pathology. Intestinal continuity was then restored by creating a [id number] functional end-to-end ileocolic anastomosis. At the conclusion of the anastomosis, it was felt to be both patent and without defects. The bowel was irrigated off and was returned to the abdominal cavity. The mesenteric defect was reapproximated with interrupted #1 chromic [id number] sutures. The abdomen was then irrigated with saline solution and was aspirated dry. Inspection was made for hemostasis, and this was found to be adequate. All sponge and instrument counts were confirmed as correct. The fascia of the midline incision was closed with a running #1 looped PDS suture. The wound was irrigated and the skin was closed with lena. Sterile dressings were applied. The patient tolerated the above procedures and taken to recovery room in stable condition. ESTIMATED BLOOD LOSS: 5 cc. SPECIMENS: Right colon. DRAINS: None. COMPLICATIONS: None. ATTESTATION: Dr. Gary was the operating surgeon, who performed the entire procedure as described above. Shannon Maciel, nurse practitioner, was the surgical services director. Aman Gary MD EST TT: 01/11/2021 11:40 PM EST DICTATION NUMBER: [id number] SHANTELL JOB NUMBER: [id number] CC: PT STATES NONE PCP Electronic Signatures: Aman Gary () (Signed on 12-Jan-2021 15:02) Authored Unsigned, Draft (SYS GENERATED) (Entered on 11-Jan-2021 23:40) Entered Last Updated: 12-Jan-2021 15:02 by Aman Gary) [facility] Patient Profile - Adult v2on 12-28-2020 Patient Profile - Adult v2 Profile: Initial Info: How to be Addressedjamie(1) Spoken Language PreferredEnglish (1) Stated Reason for Admissionsurgery Patient Belongingsremains with patient Patient Belongings Remaining with Patientclothing; cell phone/electronics Arrived FromOR Medications Brought to Hospitalyes Are you currently using the Personal Electronic Health Record or [facility]no (1) Wants Family/Rep Notified of Admissionn/a; family present Notify PCPdeferred, unable to answer Informed of Patient Visiting Rightsyes General Health: Blood Avoidance/Restrictionsno ne(1) Previous Transfusion Reactionno(1) Weight in kg68.9 kilogram(s)(2) Weight in pnr553.8 pound(s) Weight Methodstated (2) Scale Typestanding Height in cm170.1 centimeter(s) Height in feet5 feet(2) Height in inches7 inch(es)(2) Height Methodstated (2) BMI (kg/m2)23.812 square meter RSP Based Care: How would you like to participate in your carekeep in the plan of care What is the number one concern for you during this hospitalizationpain management What is the most important thing we can do to support you during this hospitalizationkeep my pain under control Is there anything we need to know to best care for younothing Substance: Current or Former Substance Use never: Cigarette/Tobacco(1), e-Cigarette/Vaping(1), Street Drugs(1) YES: Alcohol(1) Alcohol Use Statuscurrent alcohol (1) Alcohol Frequencymonthly or less (1) Health Mgmt: Symptoms/Conditions Managed at Homegastrointestinal Are You no (3) Are You Currently Breastfeedingno (1) Gastrointestinal Symptoms/Conditionsabdom inal pain Gastrointestinal Management Strategiesactivity Gastrointestinal Managementmanaged Relationship/Environ: Resource/Environmental Concernsnone Primary Source of Support/Comfortspouse Lives Withspouse Living Arrangementshouse Services Anticipated at Transitionnone Anticipated Transition Tohome Significant IndicatorsComplete Information Review: Allergies, Home Meds and Significant Events have been Reviewed and Verified with Patient/Familyyes ALLERGY, INTOLERANCE, ADVERSE EVENT: Allergies: Flagyl: Drug, Unknown, Active Keflex: Drug, Unknown, Active Entex: Drug, Unknown, Active clarithromycin: Drug, Unknown, Active Celexa: Drug, Unknown, Active penicillin: Drug, Unknown, Active minocycline: Drug, Unknown, Active Significant Events: 28-Dec-2020 Surgical Procedure: Clinical Events This Visit, Active, 1. Right colectomy;2. ;3. ;4. ;5., 28-Dec-2020 Problem List: Medical History: Colon polyp: Catalog Name: Polyp of colon Electronic Signatures: Klaus Vera (RN) (Signed 28-Dec-2020 13:12) Authored: Initial Info, General Health, RSP Based Care, Substance, Health Mgmt, Relationship/Environ, Additional Information Last Updated: 28-Dec-2020 13:12 by Klaus Vera (DON) References: 1. Data Referenced From Patient Profile - Preop v2 28-Dec-2020 06:44 2. Data Referenced From 1. Vital Signs 28-Dec-2020 06:44 3. Data Referenced From History and Physical - Surgery > 30 days 28-Dec-2020 05:31 [facility] Patient Profile - Preop v2on 12-28-2020 Patient Profile - Preop v2 Profile: Initial Info: How to be Addressedjamie Spoken Language PreferredEnglish Are you currently using the Personal Electronic Health Record or [facility] Are you interested in learning more about [facility] for the management of your healthnot at this time Stated Reason for Admissionright colectomy Primary Contact Name and Numberchad [phone] Patient Belongingsnone Medications Brought to Hospitalno General Health: Weight in kg68.9 kilogram(s) Weight in den035.8 pound(s) Weight Methodstated Height in feet5 feet Height in inches7 inch(es) Height in cm170.1 centimeter(s) Height Methodstated BMI (kg/m2)23.812 square meter Patient or Family Member Reaction to Anesthesianever had anesthesia Blood Avoidance/Restrictionsno ne Previous Transfusion Reactionno Health Mgmt: Symptoms/Conditions Managed at [facility] Are You Currently Breastfeedingno (1) Barriers to Managing Healthnone Relationship/Environ: Living Arrangementshouse Lives Withspouse Resource/Environmental Concernsnone Substance: Current or Former Substance Use never: Cigarette/Tobacco, e-Cigarette/Vaping, Street Drugs YES: Alcohol Alcohol Use Statuscurrent alcohol Alcohol Frequencymonthly or less Risk Screens: COVID-19 Screening Completedno exposure or symptoms Advance Directive/DNRno During the past month, have you often been bothered by feeling down, depressed or hopelessno During the past month, have you often had little interest or pleasure in doing thingsno Have you had any thoughts of harming yourselfno Have you had any thoughts of harming anyone elseno Are you or have you been threatened or abused physically,emotionally or sexually abused by anyoneno Do you feel UNSAFE going back to the place you are livingno Patient is Able to be Assessed for Learningyes Factors Influencing Readiness to Learnanxiety; depression Factors that Impact Ability to Learnnone Devices/Methods Used to Communicatenone Learning Preferencesverbal instruction Cultural Considerationsnone Developmental Considerationsnone Jewish Considerationsnone Other learner availableno Falls RiskPatient location auto qualifies him/her for HIGH RISK. Are there any cultural, spiritual, pentecostalism practices/values/needs that are important for us to knowno Do you want a visit/item from [facility] Would you like your Pharmacovigilance Specialist/Fruit Trimmer notifiedno Pain Scalenumerical 0-10 Pain Scale Educationteaching provided Current Pain Level0 = None Acceptable Pain Level4 = Moderate Chronic Painno Information Review: Allergies, Home Meds and Significant Events have been Reviewed and Verified with Patient/Familyyes Allergy, Intolerance, Adverse Event: Allergies: Flagyl: Drug, Unknown, Active Keflex: Drug, Unknown, Active Entex: Drug, Unknown, Active clarithromycin: Drug, Unknown, Active Celexa: Drug, Unknown, Active penicillin: Drug, Unknown, Active minocycline: Drug, Unknown, Active Electronic Signatures: Lizzie Caballero (DON) (Signed 28-Dec-2020 06:47) Authored: Initial Info, General Health, Health Mgmt, Relationship/Environ, Substance, Risk Screens, Additional Information Last Updated: 28-Dec-2020 06:47 by Lizzie Caballero (DON) References: 1. Data Referenced From History and Physical - Surgery > 30 days 28-Dec-2020 05:31 Normal [facility] Preop Checkliston 12-28-2020 Preop Checklist Preop Checklist: Preop Checklist: Arrival [id number] Arrival Time06:45 Temperature C36.3 degrees C Temperature F97.3 degrees F Heart Rate83 beats per minute Respiratory Rate16 breath per minute Blood Pressure Hncpwwfb574 mm/Hg Blood Pressure Bcjupdikz59 mm/Hg NPO [id number] ID Band Onyes Allergy Bandyes Consent Signedyes SCD's Appliedsent to OR Respiratory Assessment: Respirationsunlabored Neurological Assessment: Level of Consciousnessalert Mobilitymoves all extremities Able to Express Selfyes Age Appropriateyes Emotional Statuscalm Preop Education: Surgical Site Infection Preventionyes Pain Scales and Managementyes Electronic Signatures: Lizzie Caballero (DON) (Signed 28-Dec-2020 06:53) Authored: Preop Checklist Last Updated: 28-Dec-2020 06:53 by Lizzie Caballero (DON) Normal [facility] Surgical Pathology Depar tmenton 12-28-2020 [facility] Surgical Pathology Department Name BRICE GOMEZ Pathologist: MARIANA HERNANDES M.D., PhD. Date of Procedure: 12/28/2020 Date Received: 12/28/2020 Date Reported 01/04/2021 Submitting Physician: AMAN GARY MD Location: [facility] External # FINAL DIAGNOSIS A. RIGHT COLON MASS: --COLON WITH TUBULOVILLOUS ADENOMA --23 LYMPH NODES, NEGATIVE FOR CARCINOMA (0/23) --TERMINAL ILEUM AND APPENDIX, NEGATIVE FOR CARCINOMA Note: The tubulovillous adenoma measures 2.3 cm in greatest dimension and is entirely submitted for microscopic examination. No invasion is identified. The gross and/or microscopic findings were reviewed in conjunction with pathology resident, Norris Moreno MD. Electronically Signed Out By MARIANA HERNANDES M.D., PhD./WLI By the signature on this report, the individual or group listed as making the Final Interpretation/Diagnosis certifies that they have reviewed this case. Clinical History: Physician Contact Number: [id number] Fixative (A): Saline Clinical Diagnosis History right colon mass Specimens Submitted As: A: RIGHT COLON MASS Gross Description: A: Received in formalin, labeled with the patient's name and hospital number and right colon mass, is a segment of colon, including cecum and appendix, 18.5 cm in length. Terminal ileum measures 5.5 cm in length. The specimen is received opened. There is attached mesentery and fibrofatty tissue. The serosal surface is pink-del angel, smooth, and glistening. The mesenteric margin is identified and is unremarkable. The mesenteric margin is inked orange. The bowel wall measures up to 0.5 cm in greatest thickness. The mucosal surface of the ascending colon reveals a irregular polypoid mass, 2.3 x 1.8 x 0.6 cm, located 1.5 cm from the bowel wall. The mass is firm. The mass is located 5.5 cm from the proximal margin and 11.5 cm from the distal margin. Sections through the lesion reveal extension into submucosa. Mucosal polyps are not present. Diverticula are not present. The remainder of the mucosal surface is grossly unremarkable. Sectioning of the mesentery and fibrofatty tissue reveals multiple possible lymph nodes ranging in size from 0.3 cm to 1.0 cm. The cut surface of the largest nodes appears grossly unremarkable. The attached appendix, 5.0 x 0.6 x 0.6 cm, has a pink-del angel, smooth serosal surface. Sections reveal a patent lumen. No gross lesions are identified. Photographs have been taken. Lumber Scaler sections are submitted in 16 cassettes. PN Summary of Cassettes: Specimen Label Site A 1 distal line of resection (ascending colon), en-face 2 proximal line of resection (terminal ileum), en-face 3-7 mass, entirely submitted (#3-4 are full thickness sections with bisected side inked blue) 8 outside sales account representative section of mesenteric mass 9 outside sales account representative section of uninvolved normal colonic mucosa 10 outside sales account representative section of normal cecum 11 outside sales account representative section of the appendix 12 represent section of terminal ileum 13-14 5 lymph nodes submitted in toto in each cassette 15 3 lymph nodes submitted in toto 16 1 lymph node serially sectioned pn/12/31/2020 [facility] Department of Pathology [address] [place] [address] Normal [facility] Comment on above: Performed By: #### U [facility] ####[facility] Surgical Pathology [id number] [facility] [address] CORONAVIRUS 2019, SCREEN ASY MPTOMATICon 12-26-2020 SARS-CoV-2 (COVID-19) RNA ALEXSANDRA+probe Ql (Unsp spec) Not detected Normal Not Detected [facility] Comment on above: Result Comment: . This assay is designed to detect the N, ORF1ab and/or S genes of SARS-CoV-2 via nucleic acid amplification. A Negative (NOT DETECTED) result does not preclude 2019-nCoV infection since the adequacy of sample collection and/or low viral burden may result in presence of viral nucleic acids below the clinical sensitivity of this test method. Negative (NOT DETECTED) result should not be used as the sole basis for treatment or other patient management decisions. Rather negative results should be combined with clinical observations, patient history, and epidemiological information to make patient management decisions. Fact sheet for providers: https://www.fda.gov/media/768762/download Fact sheet for patients: https://www.fda.gov/media/920955/download This test has received FDA Emergency Use Authorization (EUA) and has been verified by [facility] ([facility]). This test is only authorized for the duration of time that circumstances exist to justify the authorization of the emergency use of in vitro diagnostic tests for the detection of SARS-CoV-2 virus and/or diagnosis of COVID-19 infection under section 564(b)(1) of the Act, 21 U.S.C. 360bbb-3(b)(1), unless the authorization is terminated or revoked sooner. [facility] is certified under CLIA-88 as qualified to perform high complexity testing. Testing is performed in the [facility] laboratories located at [id number] [place] [address]. Performed By: #### C [facility] ####[id number] [place] [address] Lab Specimen Source Nasal, Nasopharyngeal Normal [facility] Comment on above: Performed By: #### C [facility] ####[id number] [place] [address] Covid 19 Resultson 1 SARS-CoV-2 (COVID-19) RNA ALEXSANDRA+probe Ql (Unsp spec) NEGATIVE COVID-19 Test Coronaviruses are common world-wide and are the cause of many common colds. SARS-COV2 is a new coronavirus that began circulating worldwide in 2019 so we are calling it COVID-19. It has been estimated that four out of five patients with COVID-19 will recover at home without the need for medical attention. Symptoms of COVID-19 include cough, fever, shortness of breath, loss of taste or smell and other flu-like symptoms including chills, sore muscles, sore throat, and headache. Severe illness is more common in older people and people with other health problems such as high blood pressure, obesity, and immune system problems. If the test is positive, you have COVID-19. You will be contacted by the ordering physicians office and instructed to remain on home isolation, in accordance with CDC guidelines. You may also be contacted by the [facility] to see if any of your close contacts may have been exposed to the virus and need to quarantine. If the test is negative, you likely do not have COVID-19 at this time, but you still may have a different illness that can spread to other people (like Influenza, or the Flu) and could still be at risk for getting COVID-19. We recommend that you stay away from other people to limit the spread of illness until your symptoms are improving and you are fever-free for 24 hours without the use of fever lowering medications such as acetaminophen or ibuprofen. No test is 100% accurate so if you are still concerned you may have COVID-19, talk to your doctor about the need to continue to stay away from others. Medicines Acetaminophen (Tylenol and others) is generally safe. Anti-inflammatory medications, such as Ibuprofen (Advil or Motrin) or Naproxen (Aleve) can also be used. Udmi-rtw-ybwvcfq cough and cold medicines can be used according to the instructions on the package. Some lgne-fll-ybfvmbv medicines also contain acetaminophen. Make sure you are not taking more than your recommended dose For those not hospitalized, there is no specific treatment available for this illness. Antibiotics do not treat Coronaviruses. Follow-Up Follow up with your doctor by scheduling a virtual visit or consider follow-up at one of our urgent care fever clinics. If you are having difficulty breathing, or are very weak and having difficulty standing, this is a medical emergency. Call 911 or have someone take you to the nearest emergency room immediately. If possible, wear a facemask. Additional guidance from the CDC for patients who tested POSITIVE for COVID-19 How to isolate: Isolate yourself in a specific room at home and limit your contact with others. Use a separate bathroom from other members of the household, when possible. Leave home only to get essential medical care. Do not go to work, school or public areas. Avoid using public transportation, ride-sharing, or taxis. Restrict contact with pets and other animals. If you must care for your pet or be around animals while you are sick, wash your hands before and after your interaction and wear a facemask. Make sure that shared spaces in the home have good airflow, such as by an air conditioner or an opened window, weather permitting. Personal Hygiene Procedures: Wear a face mask when in the same room as other people or pets. If a face mask interferes with your breathing, others should wear a mask when sharing space with you. Frequent hand-washing: wash your hands with soap and water for at least 20 seconds. If soap and water are not available, use alcohol-based hand traveling electrician. Avoid touching your eyes, nose, and mouth with unwashed hands. Household Hygiene Procedures: Avoid sharing personal household items such as dishes, glassware, cups, eating utensils, towels or bedding with other people or pets in your home. After use, these items should be washed with soap and hot water. Disinfect all high-touch surfaces every day with antibacterial cleaning solutions such as Lysol wipes, bleach, cleansers, etc. High-touch surfaces include tabletops, doorknobs, bathroom fixtures, toilets, phones, keyboards, tablets and bedside tables. Immediately clean any surfaces that may have blood, poop or body fluids on them, using antibacterial cleaning solutions such as Lysol wipes, bleach, cleansers, etc. If clothing or bedding come into contact with blood, poop or body fluids, they should be washed immediately. Follow the directions on the laundry detergent and clothing labels but hot water is recommended when possible. Stopping home isolation precautions: If possible, consult your doctor before stopping home isolation precautions. According to the CDC, you can discontinue home isolation precautions when you have met both of these criteria: Your fever and respiratory symptoms have been gone for 24 hours without the use of any medicines like ibuprofen (Motrin) (more content not included)... Normal [facility] BASIC METABOLIC PANELon - Anion gap [Moles/Vol] 14 mmol/L Normal 10 - 20 [facility] Comment on above: Performed By: #### B MP ####[id number] [place] [address] Calcium [Mass/Vol] 9.8 mg/dL Normal 8.6 - 10.6 [facility] [place] Comment on above: Performed By: #### B MP ####[id number] [place] [address] Chloride [Moles/Vol] 105 mmol/L Normal 98 - 107 [facility] Comment on above: Performed By: #### B MP ####[id number] [place] [address] Creatinine [Mass/Vol] 0.69 mg/dL Normal 0.50 - 1.05 [facility] Comment on above: Performed By: #### B MP ####[id number] [place] [address] GFR- AM. >60 Normal >60 [facility] Comment on above: Result Comment: CALC ULATIONS OF ESTIMATED GFR ARE PERFORMED USING THE MDRD STUDY EQUATION FOR THE IDMS-TRACEABLE CREATININE METHODS. CLIN CHEM 2007;53:766-72 Performed By: #### B MP ####[id number] [place] [address] GFR-NON AM. >60 Normal >60 [facility] Comment on above: Performed By: #### B MP ####[id number] [place] [address] Glucose [Mass/Vol] 53 mg/dL Low 74 - 99 [facility] [place] Comment on above: Performed By: #### B MP ####[id number] [place] [address] HCO3 (Bld) [Moles/Vol] 26 mmol/L Normal 21 - 32 [facility] Comment on above: Performed By: #### B MP ####[id number] [place] [address] Potassium [Moles/Vol] 4.5 mmol/L Normal 3.5 - 5.3 [facility] Comment on above: Performed By: #### B MP ####[id number] [place] [address] Sodium [Moles/Vol] 140 mmol/L Normal 136 - 145 [facility] [place] Comment on above: Performed By: #### B MP ####[id number] [place] [address] Urea nitrogen [Mass/Vol] 17 mg/dL Normal 6 - 23 [facility] Comment on above: Performed By: #### B MP ####[id number] [place] [address] CBCon 12-14-2020 Erythrocyte distribution width (RBC) [Ratio] 13.8 % Normal 11.5 - 14.5 [facility] Comment on above: Performed By: #### C BC ####[id number] [place] [address] Hematocrit (Bld) [Volume fraction] 38.1 % Normal 36.0 - 46.0 [facility] Comment on above: Performed By: #### C BC ####[id number] [place] [address] Hemoglobin (Bld) [Mass/Vol] 11.9 g/dL Low 12.0 - 16.0 [facility] Comment on above: Performed By: #### C BC ####[id number] [place] [address] MCHC (RBC) [Mass/Vol] 31.2 g/dL Low 32.0 - 36.0 [facility] Comment on above: Performed By: #### C BC ####[id number] [place] [address] MCV (RBC) [Entitic vol] 92 fL Normal 80 - 100 [facility] Comment on above: Performed By: #### C BC ####[id number] [place] [address] NUCLEATED RBC 0.0 /100 WBC Normal 0.0-0.0 [facility] Comment on above: Performed By: #### C BC ####[id number] [place] [address] Platelets (Bld) [#/Vol] 252 10*3/uL Normal 150 - 450 [facility] Comment on above: Performed By: #### C BC ####[id number] [place] [address] RBC 4.12 x10E12/L Normal 4.00 - 5.20 [facility] Comment on above: Performed By: #### C BC ####[id number] [place] [address] WBC (Bld) [#/Vol] 6.3 10*3/uL Normal 4.4 - 11.3 [facility] [place] Comment on above: Performed By: #### C BC ####[id number] [place] [address] COAGULATION SCREENon 021 aPTT Coag (Bld) [Time] 27 s Normal 25 - 35 [facility] Comment on above: Result Comment: THE APTT IS NO LONGER USED FOR MONITORING UNFRACTIONATED HEPARIN THERAPY. FOR MONITORING HEPARIN THERAPY, USE THE HEPARIN ASSAY. Performed By: #### C OAGS ####[id number] [place] [address] PT Coag (PPP) [Time] 10.6 s Normal 10.1 - 13.3 [facility] Comment on above: Performed By: #### C OAGS ####[id number] [place] [address] PT, INR 0.9 Normal 0.9 - 1.1 [facility] Comment on above: Performed By: #### C OAGS ####[id number] [place] [address] TYPE + SCREENon 12-14-2020 ABO TYPE A Normal [facility] Comment on above: Performed By: #### T +S ####[id number] [place] [address] RH TYPE Positive Normal [facility] Comment on above: Performed By: #### T +S ####[id number] [place] [address] Initial Visit (Colon and Rec nelly Surgery)on 11-24-2020 Initial Visit (Colon and Rectal Surgery) Diagnoses/Problems Assessed Colon neoplasm (239.0) (D49.0) 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 : No Radiologist to Determine Optimal Study : Y What are the patient's signs and symptoms? : diarrhea CT Chest with Contrast; Status:Hold For - Scheduling; Requested for:24Nov2020; Patient taking Metformin or Derivatives? : No Radiologist to Determine Optimal Study : Y What are the patient's signs and symptoms? : diarrhea Patient Discussion/Summary 40 year old female with incidentally discovered ascending colon mass 2cm in size with fragment biopsy demonstrating tubulovillous adenoma. Risks and benefits of the procedure were discussed and patient agrees to proceed with open right hemicolectomy. Will plan for CT C/A/P in [place] for preoperative staging. Tentative plan for surgery in late november, early december. Chief Complaint BRICE GOMEZ is being seen for a colon and rectal evaluation. Ascending Colon 2cm tubulovillous adenoma History of Present Illness The patient is being seen for an initial evaluation of a colonic mass. Symptoms: constipation and change in bowel habits, but no abdominal pain, no rectal bleeding and no weight loss. The patient is currently experiencing symptoms. Associated symptoms: nausea, diarrhea and abdominal cramps, but no vomiting and no abdominal distention. 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 Surgical Pathology states fragments of TA. She denies blood from stool. She has a 5 year history of reflux and diarrhea for which she was undergoing the upper and lower endoscopy. After the bowel prep, she notes that she is more constipated. Past Medical History Problems History of COVID-19 (079.89) (U07.1) History of gastroesophageal reflux (GERD) (V12.79) (Z87.19) History of hiatal hernia (V12.79) (Z87.19) History of irritable bowel syndrome (V12.79) (Z87.19) History of sleep apnea (V13.89) (Z86.69) History of tachycardia (V13.89) (Z87.898) History of Kidney stones, calcium oxalate (592.0) (N20.0) Surgical History Problems History of Breast biopsy History of section History of Endometrial biopsy History of Tubal ligation Family History Grandmother Family history of malignant neoplasm of breast (V16.3) (Z80.3) Grandfather Family history of malignant neoplasm of colon (V16.0) (Z80.0) Family history of malignant neoplasm of esophagus (V16.0) (Z80.0) Social History Problems No tobacco/smoke exposure Rarely consumes alcohol (V49.89) (Z78.9) Allergies Medication CeleXA TABS Recorded By: Alexandra Quiñones; 11/24/2020 11:16:13 AM clarithromycin Recorded By: Alexandra Quiñones; 11/24/2020 11:16:13 AM Entex ER Recorded By: Alexandra Quiñones; 11/24/2020 11:16:13 AM Flagyl Recorded By: Alexandra Quiñones; 11/24/2020 11:16:13 AM Keflex Recorded By: Alexandra Quiñones; 11/24/2020 11:16:13 AM minocycline Recorded By: Alexandra Quiñones; 11/24/2020 11:16:13 AM Penicillins Recorded By: Alexandra Quiñones; 11/24/2020 11:16:13 AM Current Meds Medication NameInstruction Lisinopril 2.5 MG Oral Tablet Metoprolol Succinate ER 25 MG Oral Tablet Extended Release 24 Hour Multi-Vitamin Oral Tablet NexIUM 40 MG Oral Capsule Delayed Release Probiotic Oral Capsule Viibryd 10 MG Oral Tablet Vitamin D3 25 MCG (1000 UT) Oral Capsule Wellbutrin SR 150 MG Oral Tablet Extended Release 12 Hour Zyrtec 10 MG TABS Vitals Vital Signs Recorded: 24Nov2020 11:12AM Heart Rate76 Nvlhfjmj251 Bpoobvryl01 Height5 ft Vefhzg273 lb BMI Kczhkivsrj53.47 BSA Calculated1.68 Tobacco Useb) No Fall Screeninga) No falls within the last year Physical Exam Constitutional - General appearance: In no acute distress, well appearing and well nourished. Eyes Sclerae: Anicteric Neck - Exam: Appearance of the neck was normal. No neck masses observed. Pulmonary - Respiratory effort: Normal respiration. Cardiovascular - Auscultation of heart: Normal rate and rhythm, no murmurs. Examination of Pedal Pulses: pedal pulses were normal. Abdomen and Pelvis - Abdomen: Non-tender, no abdominal masses. Examination of Anus and Perineum: Normal. Neurologic - Cranial Nerve Exam: Non-focal. Grossly intact. Psychiatric - Orientation to person, place, and time: Normal. Mood and affect: Normal. Results/Data Surgical [id number] 12:00Aman Gibbs NameResultFlagReference Case Surgical Pathology(Report) Name BRICE GOMEZ Pathologist: ADRIAN KHAN M.D. Date of Procedure: 11/05/2020 Date Received: 11/05/2020 Date Reported 11/06/2020 S (more content not included)... [facility] Surgical Pathology Depar tmenton 11-05-2020 [facility] Surgical Pathology Department Name BRICE GOMEZ Pathologist: ADRIAN KHAN M.D. Date of Procedure: 11/05/2020 Date Received: 11/05/2020 Date Reported 11/06/2020 Submitting Physician: AMAN GARY MD Location: [facility] Other External # FINAL DIAGNOSIS A. [facility] [id number] (10/23/2020): A). STOMACH, ANTRUM, BIOPSY: --MILD CHRONIC GASTRITIS. NO HELICOBACTER PYLORI IDENTIFIED. B). COLON, RANDOM BIOPSY: --COLONIC MUCOSA WITH NO SIGNIFICANT PATHOLOGIC FINDINGS C). ASCENDING COLON MASS, BIOPSY: ?FRAGMENTS OF TUBULOVILLOUS ADENOMA Electronically Signed Out By ADRIAN KHAN M.D./BILL By the signature on this report, the individual or group listed as making the Final Interpretation/Diagnosis certifies that they have reviewed this case. Clinical History: colon Specimens Submitted As: A: [facility] [id number] (10/23/2020) Slide/Block Description Received from [facility], Dept of Pathology, [address] [place] [address], are 4 slides labeled [id number] Keep Slides: N Slides Returned: N Personal Consult: N Normal [facility] Comment on above: Performed By: #### U [facility] ####[facility] Surgical Pathology [id number] [facility] [address] MRI CARD MORPH FUNC WO/W IVC ONon 10-05-2020 MRI CARD MORPH FUNC WO/W IVCON Final Report DATE OF EXAM: Oct 05 2020 11:02AM [facility] [id number] - MRI CARD MORPH FUNC WO/W IVCON / PROCEDURE REASON: multiple diagnoses Physician Interpretation EXAM TITLE:MRI CARD MORPH FUNC WO/W IVCON, MRI CARDIAC VELOCITY FLOW MAP DATE: 10/05/2020 11:02 AM COMPARISON: None. CLINICAL INDICATION/HISTORY: History of COVID- 19 infection. Assessment for cardiomyopathy IMPRESSION: 1. The left ventricle is mildly dilated by volumes, with normal systolic function. 2. The calculated left ventricular ejection fraction is 60%. There are no regional wall motion abnormalities. 3. T2 mapping of the myocardium indicated a global myocardial T2 value of 51+/-1 ms (normal values for this scanner are 40 to 45 milliseconds), suggesting mild myocardial edema. T1 mapping of the myocardium indicated a global nooksack T1 value of 982+/-58 ms (normal values for this scanner 945 - 965 ms, [facility]). Late gadolinium enhancement sequences indicated the presence of a very small mid myocardial scar involving the very basal inferolateral wall of the left ventricle. It occupies 0.6% of the ventricular myocardium. The pattern does not reflect a prior myocardial infarction. Given the isolated location of the scar , likely differentials include myocarditis. Sarcoidosis is less likely in the absence of significant mediastinal lymphadenopathy, and an isolated lesion in the basal inferolateral wall. The lack of left ventricular hypertrophy argues against scarring for infiltrative cardiomyopathies also. There is also some very mild right ventricular insertion point late gadolinium enhancement, which is likely nonspecific in this situation. By modified Turin criteria, there is evidence of subacute myocarditis. There is no suggestion of acute pericarditis. 4. The right ventricle is normal in size with normal systolic function.,The tricuspid annular excursion is measured at 2.4 cm. The right ventricular ejection fraction is calculated at 62%, this is normal 5. No significant valvular abnormalities seen. Only trivial tricuspid, aortic and mitral regurgitation are seen. There is mild left atrial enlargement. The left atrial volume index is cavitated at 38 mL/sq m. The appearance of the inferior vena cava suggests normal right atrial filling pressures. 6. The pericardial thickness is 2 mm. A prominent epicardial fat pad is present. No significant pericardial effusion seen. 7. The great vessels including the aorta, main pulmonary artery, superior and inferior vena cavae and pulmonary veins are within normal limits. Mild mediastinal lymphadenopathy is seen. The cardiac situs is solitus. No significant pleural effusions are evident. 8. Using phase velocity mapping sequences, there is no suggestion of significant intracardiac shunting. The QP/QS ratio is calculated at 1 MEASUREMENTS: A. GREAT VESSELS: I. Aortic root 2.5 cm at the sinuses of Valsalva, 2 cm at the sinotubular junction II. Ascending Aorta 2.9 cm III. Descending Aorta: 2 cm IV. Main Pulmonary Artery 2.4 cm V. RIGHT Pulmonary Artery 1.4 cm . Left Pulmonary Artery 1.4 cm B. LEFT VENTRICLE: I. End Diastolic dimension 4.6 cm II. End systolic dimension 3.6 cm III. LVEF 60 % IV. Anteroseptal wall 0.8 cm V. Inferolateral wall 0.5 cm C. RIGHT VENTRICLE: I. Major Dimension 8.1 cm II.Minor Dimension 3.6 cm VOLUMES: I. Left Ventricular End systolic Volume index (LVESVI) 28 ml/m2 (10-43) II. Left Ventricular End diastolic Volume index (LVEDVI) 71 ml/m2 (51-110) III. Left Ventricular Stroke Volume index (LVSVI) 43 ml/m2 (20-62) IV. Right Ventricular End Systolic volume index ( RVESVI) 25 ml/m2 (37-127) V. Right Ventricular End Diastolic volume index ( RVEDVI) 67 ml/m2 (45-110) . Right Ventricular Stroke volume index ( RVSVI) 42 ml/m2 (33-77) VII.Cardiac Index 2.3 L/min/m2 (2.5-3.0) Knee Bolter: MARTITA Transcribe Date/Time: Oct 05 2020 3:32P Dictated by : KENA CASTELLON MD This examination was interpreted and the report reviewed and electronically signed by: KENA CASTELLON MD on Oct 05 2020 4:19PM EST Normal [facility] MRI CARDIAC VELOCITY FLOW MA Silvestre 11-16-2020 MRI CARDIAC VELOCITY FLOW MAP Final Report DATE OF EXAM: Oct 05 2020 11:02AM [id number] - MRI CARDIAC VELOCITY FLOW MAP / PROCEDURE REASON: multiple diagnoses Physician Interpretation EXAM TITLE:MRI CARD MARIA ISABEL BISHOP WO/W IVCON, MRI CARDIAC VELOCITY FLOW MAP DATE: 10/05/2020 11:02 AM COMPARISON: None. CLINICAL INDICATION/HISTORY: History of COVID- 19 infection. Assessment for cardiomyopathy IMPRESSION: 1. The left ventricle is mildly dilated by volumes, with normal systolic function. 2. The calculated left ventricular ejection fraction is 60%. There are no regional wall motion abnormalities. 3. T2 mapping of the myocardium indicated a global myocardial T2 value of 51+/-1 ms (normal values for this scanner are 40 to 45 milliseconds), suggesting mild myocardial edema. T1 mapping of the myocardium indicated a global nooksack T1 value of 982+/-58 ms (normal values for this scanner 945 - 965 ms, [facility]). Late gadolinium enhancement sequences indicated the presence of a very small mid myocardial scar involving the very basal inferolateral wall of the left ventricle. It occupies 0.6% of the ventricular myocardium. The pattern does not reflect a prior myocardial infarction. Given the isolated location of the scar , likely differentials include myocarditis. Sarcoidosis is less likely in the absence of significant mediastinal lymphadenopathy, and an isolated lesion in the basal inferolateral wall. The lack of left ventricular hypertrophy argues against scarring for infiltrative cardiomyopathies also. There is also some very mild right ventricular insertion point late gadolinium enhancement, which is likely nonspecific in this situation. By modified Turin criteria, there is evidence of subacute myocarditis. There is no suggestion of acute pericarditis. 4. The right ventricle is normal in size with normal systolic function.,The tricuspid annular excursion is measured at 2.4 cm. The right ventricular ejection fraction is calculated at 62%, this is normal 5. No significant valvular abnormalities seen. Only trivial tricuspid, aortic and mitral regurgitation are seen. There is mild left atrial enlargement. The left atrial volume index is cavitated at 38 mL/sq m. The appearance of the inferior vena cava suggests normal right atrial filling pressures. 6. The pericardial thickness is 2 mm. A prominent epicardial fat pad is present. No significant pericardial effusion seen. 7. The great vessels including the aorta, main pulmonary artery, superior and inferior vena cavae and pulmonary veins are within normal limits. Mild mediastinal lymphadenopathy is seen. The cardiac situs is solitus. No significant pleural effusions are evident. 8. Using phase velocity mapping sequences, there is no suggestion of significant intracardiac shunting. The QP/QS ratio is calculated at 1 MEASUREMENTS: A. GREAT VESSELS: I. Aortic root 2.5 cm at the sinuses of Valsalva, 2 cm at the sinotubular junction II. Ascending Aorta 2.9 cm III. Descending Aorta: 2 cm IV. Main Pulmonary Artery 2.4 cm V. RIGHT Pulmonary Artery 1.4 cm . Left Pulmonary Artery 1.4 cm B. LEFT VENTRICLE: I. End Diastolic dimension 4.6 cm II. End systolic dimension 3.6 cm III. LVEF 60 % IV. Anteroseptal wall 0.8 cm V. Inferolateral wall 0.5 cm C. RIGHT VENTRICLE: I. Major Dimension 8.1 cm II.Minor Dimension 3.6 cm VOLUMES: I. Left Ventricular End systolic Volume index (LVESVI) 28 ml/m2 (10-43) II. Left Ventricular End diastolic Volume index (LVEDVI) 71 ml/m2 (51-110) III. Left Ventricular Stroke Volume index (LVSVI) 43 ml/m2 (20-62) IV. Right Ventricular End Systolic volume index ( RVESVI) 25 ml/m2 (37-127) V. Right Ventricular End Diastolic volume index ( RVEDVI) 67 ml/m2 (45-110) . Right Ventricular Stroke volume index ( RVSVI) 42 ml/m2 (33-77) VII.Cardiac Index 2.3 L/min/m2 (2.5-3.0) Knee Bolter: [facility] Transcribe Date/Time: Oct 05 2020 3:32P Dictated by : KENA CASTELLON MD This examination was interpreted and the report reviewed and electronically signed by: KENA CASTELOLN MD on Oct 05 2020 4:19PM [facility] PROGRESSon 10-05-2020 PROGRESS HNO ID: [id number] Author: Rosario Elliott (Rt) Service: Radiology Author Type: Geospatial Information Technologist Type: Progress Notes Filed: 10/05/2020 11:03 AM Note Text: Radiology Service Progress Note DATE OF SERVICE: October 05, 2020 TIME: 11:03 AM PATIENT IDENTITY VERIFICATION COMPLETED USING TWO (2) STANDARD IDENTIFIERS: Name and Date of confirmed by patient verbally. FALL SCREENING: Has the patient had 2 falls in the last year or 1 fall with injury or currently using an Ambulatory Assistive Device (Walker, Cane, Wheelchair, Crutches, etc.)? No PATIENT GENDER DATA: Female. status: : No status: NO. PATIENT RELEVANT IMPLANT DATA REVIEWED: Yes ALLERGIES: Reviewed and unchanged CONTRAST ALLERGY: NO. EXAM: MRI - CONTRAST TYPE: GROUP II PERIPHERAL IV DATA: Ambulatory: A peripheral IV was started in the Right with a Angio cath: 22 gauge. RADIOLOGY DEPARTMENT: MR; Exam(s) Completed: Cardiac: Cardiac SIGNATURE: RT Lexi PATIENT NAME: Brice Gomez DATE: October 05, 2020 TIME: 11:03 AM Normal [facility] XR Chest PA and Lateralon IMPRESSION: MINIMAL LEFT INFRAHILAR PERSISTENT OPACITY. SIGNIFICANTLY IMPROVED Knee Bolter: MARTITA Transcribe Date/Time: Aug 24 2020 12:02P Dictated by : SARA GUZMAN MD This examination was interpreted and the report reviewed and electronically signed by: SARA GUZMAN MD on Aug 24 2020 12:05PM [facility] DIVISION OF RADIOLOGY * * *Final Report* * * DATE OF EXAM: Aug 24 2020 12:03PM WOX [id number] - XR CHEST 2V FRONTAL/LAT / PROCEDURE REASON: multiple diagnoses * * * * Physician Interpretation * * * * Examination: Frontal and lateral chest History: History of Covid 19 infection Comparison: 03/31/2020 RESULT: Significant improvement. Minimal left infrahilar persistent opacity. No new significant collapse or consolidation. No pleural fluid or pneumothorax Cardiomediastinal silhouette appears normal DIVISION OF RADIOLOGY Provider, [facility] - 08/24/2020 * * *Final Report* * * DATE OF EXAM: Aug 24 2020 12:03PM WOX [id number] - XR CHEST 2V FRONTAL/LAT / PROCEDURE REASON: multiple diagnoses * * * * Physician Interpretation * * * * Examination: Frontal and lateral chest History: History of Covid 19 infection Comparison: 03/31/2020 RESULT: Significant improvement. Minimal left infrahilar persistent opacity. No new significant collapse or consolidation. No pleural fluid or pneumothorax Cardiomediastinal silhouette appears normal IMPRESSION IMPRESSION: MINIMAL LEFT INFRAHILAR PERSISTENT OPACITY. SIGNIFICANTLY IMPROVED Knee Bolter: MARTITA Transcribe Date/Time: Aug 24 2020 12:02P Dictated by : SARA GUZMNA MD This examination was interpreted and the report reviewed and electronically signed by: SARA GUZMAN MD on Aug 24 2020 12:05PM EST [facility] Radiology Study observation (narrative) Praful pacheco [facility] XR Chest PA and LateralOrder ed By: [facility] Provider on 08-24-2020 [facility] ID - Follow Upon 04-21-2020 ID - Follow Up Chief Complaint A telephone visit (audio only) between the patient (at the originating site) and the provider (at the distant site) was utilized to provide this telehealth service. History of Present IllnessThis was a telephone encounter for which patient provided verbal consent. 39-year-old female who was diagnosed with COVID-19 about 4 weeks ago has a follow-up today. Patient had a telephone encounter withactive and last week and continued to complain of dyspnea and had noted discoloration of her extremities fingers and toes on movement. Duplex of extremities and CT angio was ordered that was unremarkable for clots. She reports she is slowly getting better still needing 2-3 L oxygen by saturating around 96%. Her symptoms are mostly on exertion associated with dyspnea and chest pain. She hasn't had fever or chills. She is slowly resuming her normal activities. She saw her primary physician and has been referred to a american history professor Review of Systems As mentioned in history of present illness Physical Exam Deferred as telephone encounter Provider Impressions 39-year-old female with Covid 19 diagnosed about 4 weeks ago is currently slowly improving. She is getting back to her baseline though still has tachycardia and feels chest pain on exertion. We discussed at length that as this is an ongoing pandemic and new information and studies are evolving there is lack of clarity on timeline of complete symptom improvement of patients and has been subjective in nature. Given that she has been afebrile and has noticed ongoing improvement though slow is promising. If she continues to have exertional symptoms she may need evaluation for myocarditis/cardiomyopat hy. She was also started on a beta cayden by her physician recently. There have been some reports of reduced lung capacity after this infection and she may benefit from having a pulmonary function test done in 3-4 months if continues to be symptomatic. Also discussed that her current CT findings showing infiltrates is likely in the setting of resolving pneumonia as the radiographic findings always lag behind Patient Discussion/Summary Follow-up when necessary Signatures Electronically signed by : Shawna Baugh MD; Apr 22 2020 10:13AM EST (Author) Normal [facility] CASE MANAGEMon 04-06-2020 CASE MANAGEM HNO ID: [id number] Author: Landry (Rn) DON Agrawal Service: Care Management Author Type: Registered Nurse Type: Care Mgt Progress Note Filed: 04/06/2020 1:05 PM Note Text: CARE MANAGEMENT DISCHARGE NOTE SERVICE DATE: 04/06/2020 SERVICE TIME: 1:04 PM LOS: 12 days Admission Date: 03/24/2020 DISCHARGE ARRANGEMENT (list agency and phone number) Discharge Arrangement: Home CAREGIVER ASSESSMENT: Caregiver is ready, willing and able to meet the patient's needs as recommended by the inter-professional team:: Yes Does the patient have an acute stroke diagnosis, or has the patient had a stroke during this admission?: No Patient's transition needs and plan for meeting these needs: home with self care and oxygen provided by [employer] COMMUNICATION: Handoff to: Primary Care Physician Primary Care Physician Name/Phone: summary of care sent to PCP TRANSPORTATION ARRANGEMENTS: Transportation Arrangements: Car(with family) ADDITIONAL CONTACT RESOURCES: n/a Pt dc to home with no TCC needs. Pt has portable oxygen tank from [employer]. SIGNATURE: Landry Agrawal RN PATIENT NAME: Brice Gomez DATE: April 06, 2020 TIME: 1:04 PM PAGER/CONTACT #: [phone] Normal [facility] CASE MANAGEM HNO ID: [id number] Author: Landry (Rn) DON Agrawal Service: Care Management Author Type: Registered Nurse Type: Care Mgt Progress Note Filed: 04/06/2020 9:10 AM Note Text: CARE MANAGEMENT PROGRESS NOTE SERVICE DATE: 04/06/2020 SERVICE TIME: 9:08 AM LOS: 12 days Needs Prior to Discharge: To Be Determined Chart reviewed. Pt remains on 3L oxygen. Per ID note from 04/05, pt would be reasonable to dc to home when weaned down to 1L. Pt has portable oxygen and concentrator already arranged through [employer] supplier. Family will be able to transport the patient home with portable oxygen tank when ready for dc. SIGNATURE: Landry Agrawal RN PATIENT NAME: Brice Gomez DATE: April 06, 2020 TIME: 9:08 AM PAGER/CONTACT #: [phone] [facility] PLAN OF CAREon 04-06-2020 PLAN OF CARE HNO ID: [id number] Author: Divine Rodrigues (Pharmacist) Service: Pharmacy Author Type: Pharmacist Type: Plan of Care Filed: 04/06/2020 1:38 PM Note Text: DISCHARGE MEDICATION REVIEW BY PHARMACY Patient Name: Brice Gomez Account #: Data Unavailable Admission Date: 03/24/2020 Date of Contact: April 06, 2020 Time of Contact: 1:38 PM Medication list was reviewed by a Pharmacist for drug interactions or drug related problems:Yes Below is a summary of pharmacist recommendations discussed with LIP: No Recommendations at this time from Discharge Medication List. DIVINE RODRIGUES, PHARMACIST April 06, 2020 1:38 PM Pager: [phone] 04/06/2020 1:38 PM Medication List START taking these medications ascorbic acid (vitamin C) 500 mg tablet Commonly known as: VITAMIN C Take 1 tablet by mouth once daily. Start taking on: April 07, 2020 CONTINUE taking these medications albuterol HFA 90 mcg/actuation inhaler Commonly known as: PROAIR HFA Inhale 2 Puffs as instructed every 4 hours as needed. Benzonatate 200 mg capsule buPROPion HCL 200 mg 12 hr tablet Commonly known as: WELLBUTRIN SR Take 1 tablet by mouth twice daily. codeine-guaiFENesin 10-100 mg/5 mL syrup Commonly known as: ROBITUSSIN AC cyclobenzaprine 10 mg tablet Commonly known as: FLEXERIL Take 1 tablet by mouth every 8 hours as needed. DAILY MULTIVITAMIN tablet Generic drug: multivitamin dexamethasone 0.1% 0.1 % ophthalmic solution 1 Drop twice daily as needed (bilateral ears for itching/rash). EPINEPHrine 0.3 mg/0.3 mL auto-injector Commonly known as: EPIPEN Inject 0.3 mL subcutaneously as needed. Then seek medical attention immediately. omeprazole 20 mg capsule Commonly known as: PriLOSEC TAKE 1 CAPSULE BY MOUTH DAILY BEFORE BREAKFAST. 1/2 HR BEFORE MEAL. Vitamin D-3 50 mcg (2,000 unit) tablet Generic drug: cholecalciferol ZyrTEC 10 mg tablet Generic drug: cetirizine STOP taking these medications levoFLOXacin 500 mg tablet Commonly known as: LEVAQUIN Where to Get Your Medications These medications were sent to e- [id number] [place] [address] - [address] [facility] - [phone] [id number] [facility] [place] [address] ? ascorbic acid (vitamin C) 500 mg tablet Normal [facility] PROGRESSon 04-06-2020 PROGRESS HNO ID: [id number] Author: Elian Philip Service: Infectious Disease Author Type: Physician Type: Progress Notes Filed: 04/06/2020 4:21 PM Note Text: INFECTIOUS DISEASE PROGRESS NOTE Patient Name: Brice Gomez Date: 04/06/2020 ASSESSMENT: 1. SARS- CoV- 19 multifocal pneumonia Worsened per the most recent CT chest 2. Acute hypoxic respiratory failure due to # 1 3. Acute transaminitis 4. Normal procalcitonin 5. 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 She was started on PO levofloxacin by per PCP but her symptoms did not improve. She had been on the floor for the last one week and has been having increasing O2 requirement?and moved to the ICU henceforth. Following a short stay in ICU where she required O2 via [employer], she improved significantly and now has been sent back to the floors. Over the weekend, she has been weaned down to 2 liters O2 via NC and she feels much better PLAN: 1. OK to dc home on supplemental O2 ( she already has O2 supplies at home) 2. 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 Reasonable to quarantine herself at home until symptomatically better 4. Follow up with me via telemedicine visit in 7 days ( next week) INTERVAL HISTORY: ROS done with pt/RN and negative unless stated. Down to 2 liters via NC Feels much better MEDICATIONS: reviewed. Current Facility-Administered Medications Medication Dose Route Frequency - buPROPion SR 200 mg tab(s) (WELLBUTRIN SR) 200 mg ORAL BID - NaCl 0.9% 3-5 mL 3-5 mL INTRAVENOUS q 12 H - pantoprazole DR 40 mg tab(s) (PROTONIX) 40 mg ORAL DAILY (6 AM) - ascorbic acid (vitamin C) 500 mg tab(s) (VITAMIN C) 500 mg ORAL DAILY - acetaminophen 650 mg tab(s) (TYLENOL) 650 mg ORAL q 6 H PRN - sodium chloride 0.65 % 2 [place] (AYR, OCEAN) 2 [place] EACH NOSTRIL PRN - albuterol HFA 90 mcg/actuation 2 Puff (PROVENTIL HFA, VENTOLIN HFA) 2 Puff INHALATION q 4 H PRN - enoxaparin 40 mg injection (LOVENOX) 40 mg SUBCUTANEOUS q 12 HR - benzonatate 100 mg cap(s) (TESSALON PERLE) 100 mg ORAL TID PRN - senna-docusate 8.6-50 mg 1 tablet (SENNA-S) 1 tablet ORAL BID PRN - loratadine 10 mg tab(s) (CLARITIN) 10 mg ORAL DAILY PHYSICAL EXAM: Vital signs: BP 103/68 Pulse (!) 123 Temp 36.7 ?C (98.1 ?F) (Oral) Resp 20 Ht 152.4 cm (5') Wt 67.7 kg (149 lb 4.8 oz) LMP 01/13/2018 SpO2 98% BMI 29.16 kg/m? Temp (24hrs), Av.8 ?C (98.2 ?F), Min:36.5 ?C (97.7 ?F), Max:36.9 ?C (98.4 ?F) General: alert, oriented, NAD Lungs: diminished breath sounds bibasilar, scattered rales Heart: regular rate and rhythm Abdomen: soft, non tender, non distended, BS+ Extremities: no swollen joints Skin: no rash IV sites - wnl Lab data: reviewed Microbiology data: reviewed Imaging data: reviewed Elian Philip MD, [facility] Infectious Diseases Pager: [phone] [facility] PROGRESSon 04-05-2020 PROGRESS HNO ID: [id number] Author: Donta Triplett MD Service: Infectious Disease Author Type: Physician Type: Progress Notes Filed: 04/05/2020 6:45 PM Note Text: INFECTIOUS DISEASE PROGRESS NOTE Patient Name: Brice Gomez ASSESSMENT: 1. SARS- CoV- 19 multifocal pneumonia Worsened per the most recent CT chest 2. Acute hypoxic respiratory failure due to # 1 3. Acute transaminitis 4. Normal procalcitonin 5. 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 She was started on PO levofloxacin by per PCP but her symptoms did not improve. She had been on the floor for the last one week and has been having increasing O2 requirement and moved to the ICU henceforth. ? Over the past 48 hours, she has shown much improvement in her O2 needs and is down to 4 liters via NC. D dimer is noted to be high > 4000 so on high dose lovenox per MICU. With a normal procacitonin and overall improvement in her clinical status, no need for anti bacterial ( doubt there is superimposed HAP). Overall she seems to be improving, ferritin is < 400. Ferritin 238 LD 489 CRP 4.3 PLAN: 1. Continue supportive care, supplemental O2 2. home O2 set up 3. Once patient is weaned down to 1 L O2 NC, reasonable for her to sent home 4. USD LE negative INTERVAL HISTORY: ROS done with pt/RN and negative unless stated. RENE. No fevers Appetite is coming back MEDICATIONS: reviewed. Current Facility-Administered Medications Medication Dose Route Frequency - buPROPion SR 200 mg tab(s) (WELLBUTRIN SR) 200 mg ORAL BID - NaCl 0.9% 3-5 mL 3-5 mL INTRAVENOUS q 12 H - pantoprazole DR 40 mg tab(s) (PROTONIX) 40 mg ORAL DAILY (6 AM) - ascorbic acid (vitamin C) 500 mg tab(s) (VITAMIN C) 500 mg ORAL DAILY - acetaminophen 650 mg tab(s) (TYLENOL) 650 mg ORAL q 6 H PRN - sodium chloride 0.65 % 2 [place] (AYR, OCEAN) 2 [place] EACH NOSTRIL PRN - albuterol HFA 90 mcg/actuation 2 Puff (PROVENTIL HFA, VENTOLIN HFA) 2 Puff INHALATION q 4 H PRN - enoxaparin 40 mg injection (LOVENOX) 40 mg SUBCUTANEOUS q 12 HR - benzonatate 100 mg cap(s) (TESSALON PERLE) 100 mg ORAL TID PRN - senna-docusate 8.6-50 mg 1 tablet (SENNA-S) 1 tablet ORAL BID PRN - loratadine 10 mg tab(s) (CLARITIN) 10 mg ORAL DAILY PHYSICAL EXAM: Vital signs: BP 92/58 Pulse 105 Temp 37 ?C (98.6 ?F) (Oral) Resp 22 Ht 152.4 cm (5') Wt 67.7 kg (149 lb 4.8 oz) LMP 01/13/2018 SpO2 99% BMI 29.16 kg/m? Temp (24hrs), Av.9 ?C (98.4 ?F), Min:36.6 ?C (97.9 ?F), Max:37.1 ?C (98.8 ?F) General: alert, oriented, NAD Lungs: fine bibasilar rales Heart: regular rate and rhythm Abdomen: soft, non tender, non distended, BS+ Extremities: no swollen joints Skin: no rash IV sites - wnl Lab data: reviewed Recent Labs 04/03/20 0240 WBC 7.58 HB 10.0* PLT 453* Microbiology data: reviewed Imaging data: reviewed Donta Triplett MD [phone] 04/05/2020 6:44 PM [facility] PROGRESS HNO ID: [id number] Author: Antony Godfrey MD Service: Hospital Medicine Author Type: Physician Type: Progress Notes Filed: 04/05/2020 1:01 PM Note Text: DEPARTMENT OF HOSPITAL MEDICINE PROGRESS NOTE SERVICE DATE: 04/05/2020 SERVICE TIME: 12:58 PM Hospital Medicine/Primary Attending: Antony Godfrey MD NIGHT AND WEEKEND COVERAGE: After 7pm please page [phone] CHIEF COMPLAINT:??Follow up for Covid 19 infection?and respiratory failure ? SUBJECTIVE:??Patient seen and examined. Short of breath with activity. Discussed with her spouse over the telephone and updated. Questions answered and concerns were addressed. OBJECTIVE: PHYSICAL EXAM: BP 121/90 Pulse 100 Temp (Src) 97.9 (Oral) Resp 16 Ht 5' 0 (1.52m) Wt 149 lb 4.8 oz (67.7kg) SpO2 95% LMP 01/13/2018 BMI 29.16 kg/(m2). O2 Therapy: Nasal Cannula, Liters: 3 General - AANDOx3,?acutely ill-looking, anxious appearing, dyspneic at rest. CV - RRR S1 S2, No M/R/G RESP -?diminished breath sounds bilaterally. ABD - soft, NT, ND +BS EXT - no gross joint deformity, no clubbing, cyanosis, edema NEURO - CN II-XII grossly intact, no focal deficits MEDICATIONS: Current Facility-Administered Medications Medication Dose Route Frequency - buPROPion SR 200 mg tab(s) (WELLBUTRIN SR) 200 mg ORAL BID - NaCl 0.9% 3-5 mL 3-5 mL INTRAVENOUS q 12 H - pantoprazole DR 40 mg tab(s) (PROTONIX) 40 mg ORAL DAILY (6 AM) - ascorbic acid (vitamin C) 500 mg tab(s) (VITAMIN C) 500 mg ORAL DAILY - acetaminophen 650 mg tab(s) (TYLENOL) 650 mg ORAL q 6 H PRN - sodium chloride 0.65 % 2 [place] (AYR, OCEAN) 2 [place] EACH NOSTRIL PRN - albuterol HFA 90 mcg/actuation 2 Puff (PROVENTIL HFA, VENTOLIN HFA) 2 Puff INHALATION q 4 H PRN - enoxaparin 40 mg injection (LOVENOX) 40 mg SUBCUTANEOUS q 12 HR - benzonatate 100 mg cap(s) (TESSALON PERLE) 100 mg ORAL TID PRN - senna-docusate 8.6-50 mg 1 tablet (SENNA-S) 1 tablet ORAL BID PRN - loratadine 10 mg tab(s) (CLARITIN) 10 mg ORAL DAILY DATA: Diagnostic tests reviewed for today's visit: CBC: No results for input(s): WBC, RBC, HB, HCT, PLT, MCV, MCH, MPV, RDW in the last 24 hours. Coags: No results for input(s): INR, APTT in the last 24 hours. Invalid input(s): PT BMP: No results for input(s): NA, K, CHLOR, CO2, BUN, CREAT, GLUC in the last 24 hours. CMP: No results for input(s): NA, K, CHLOR, CO2, BUN, CREAT, GLUC, TPROT, CA, MG, ALBUMIN, TBILI, ALKPHOS, ALT, AST, ANION in the last 24 hours. Cardiac Enzymes: No results for input(s): CK, MB, CKMB, TROPT in the last 24 hours. Liver Function, Amylase, Lipase: No results for input(s): TPROT, ALB, ALT, AST, ALKPHOS, TBILI, AMYLASE, LIPASE, LACTATE in the last 24 hours. MG/PHOS: No results for input(s): MG, P in the last 24 hours. Renal Panel: No results for input(s): ALBUMIN, CREAT, BUN, GLUC, CA, P, CHLOR, K, CO2, NA in the last 24 hours. Heme: No results for input(s): RETICP, ABSRETIC, LD, CHARLI, FE, TIBC, TRANSFERSAT in the last 24 hours. No results found for: UALBCR Assessment/Plan Active Problems: ??COVID-19 virus infection POA: Yes ?Assessment AND?Plan: Complicated?by viral multifocal pneumonia and acute hypoxic respiratory failure. ?Required supplemental oxygen with Airvo?in the intensive care unit. ?Now stable on intranasal cannulae oxygen. ?The patient's disease following. ?Appreciate input. ? Elevated d-dimer. Thankfully on downward trend. ?Related to acute Covid infection. ?Patient on prophylactic anti-coagulation with?Lovenox. ? Resolved Problems: ??* No resolved hospital problems. * VTE Prophylaxis: Lovenox 40mg Sub Q Daily Disposition: Home Plan of care discussed with: Provider, RN, Patient and Family/Significant Other: spuse SIGNATURE: Antony Godfrey MD PATIENT NAME: Brice Gomez DATE: April 05, 2020 TIME: 12:58 PM PAGER/CONTACT #: colin [facility] PROGRESSon 04-04-2020 PROGRESS HNO ID: [id number] Author: Antony Godfrey MD Service: Hospital Medicine Author Type: Physician Type: Progress Notes Filed: 04/04/2020 2:35 PM Note Text: DEPARTMENT OF HOSPITAL MEDICINE PROGRESS NOTE SERVICE DATE: 04/04/2020 SERVICE TIME: 2:34 PM Hospital Medicine/Primary Attending: Antony Godfrey MD NIGHT AND WEEKEND COVERAGE: After 7pm please page [phone] CHIEF COMPLAINT: Follow up for Covid 19 infection and respiratory failure ? SUBJECTIVE: Patient seen and examined. Better today than yesterday. Short of breath with activity. Up with therapy today at this encounter. OBJECTIVE: PHYSICAL EXAM: BP 100/84 Pulse 102 Temp (Src) 98.2 (Oral) Resp 16 Ht 5' 0 (1.52m) Wt 149 lb 4.8 oz (67.7kg) SpO2 93% LMP 01/13/2018 BMI 29.16 kg/(m2). O2 Therapy: Nasal Cannula, Liters: 3.5 ? General - AANDOx3, acutely ill-looking, anxious appearing, dyspneic at rest. CV - RRR S1 S2, No M/R/G RESP - diminished breath sounds bilaterally. ABD - soft, NT, ND +BS EXT - no gross joint deformity, no clubbing, cyanosis, edema NEURO - CN II-XII grossly intact, no focal deficits MEDICATIONS: Current Facility-Administered Medications Medication Dose Route Frequency - buPROPion SR 200 mg tab(s) (WELLBUTRIN SR) 200 mg ORAL BID - NaCl 0.9% 3-5 mL 3-5 mL INTRAVENOUS q 12 H - pantoprazole DR 40 mg tab(s) (PROTONIX) 40 mg ORAL DAILY (6 AM) - ascorbic acid (vitamin C) 500 mg tab(s) (VITAMIN C) 500 mg ORAL DAILY - acetaminophen 650 mg tab(s) (TYLENOL) 650 mg ORAL q 6 H PRN - sodium chloride 0.65 % 2 [place] (AYR, OCEAN) 2 [place] EACH NOSTRIL PRN - albuterol HFA 90 mcg/actuation 2 Puff (PROVENTIL HFA, VENTOLIN HFA) 2 Puff INHALATION q 4 H PRN - enoxaparin 40 mg injection (LOVENOX) 40 mg SUBCUTANEOUS q 12 HR - benzonatate 100 mg cap(s) (TESSALON PERLE) 100 mg ORAL TID PRN - senna-docusate 8.6-50 mg 1 tablet (SENNA-S) 1 tablet ORAL BID PRN - loratadine 10 mg tab(s) (CLARITIN) 10 mg ORAL DAILY DATA: Diagnostic tests reviewed for today's visit: CBC: No results for input(s): WBC, RBC, HB, HCT, PLT, MCV, MCH, MPV, RDW in the last 24 hours. Coags: No results for input(s): INR, APTT in the last 24 hours. Invalid input(s): PT BMP: No results for input(s): NA, K, CHLOR, CO2, BUN, CREAT, GLUC in the last 24 hours. CMP: No results for input(s): NA, K, CHLOR, CO2, BUN, CREAT, GLUC, TPROT, CA, MG, ALBUMIN, TBILI, ALKPHOS, ALT, AST, ANION in the last 24 hours. Cardiac Enzymes: No results for input(s): CK, MB, CKMB, TROPT in the last 24 hours. Liver Function, Amylase, Lipase: No results for input(s): TPROT, ALB, ALT, AST, ALKPHOS, TBILI, AMYLASE, LIPASE, LACTATE in the last 24 hours. MG/PHOS: No results for input(s): MG, P in the last 24 hours. Renal Panel: No results for input(s): ALBUMIN, CREAT, BUN, GLUC, CA, P, CHLOR, K, CO2, NA in the last 24 hours. Heme: No results for input(s): RETICP, ABSRETIC, LD, CHARLI, FE, TIBC, TRANSFERSAT in the last 24 hours. No results found for: UALBCR Assessment/Plan Active Problems: COVID-19 virus infection POA: Yes Assessment AND Plan: Complicated by viral multifocal pneumonia and acute hypoxic respiratory failure. Required supplemental oxygen with Airvo in the intensive care unit. Now stable on intranasal cannulae oxygen. The patient's disease following. Appreciate input. ? Elevated d-dimer. Related to acute Covid infection. Patient on prophylactic anti-coagulation with Lovenox. ? Resolved Problems: * No resolved hospital problems. * ? ? VTE Prophylaxis: Lovenox 40mg Sub Q Daily ? Disposition: Home ? Plan of care discussed with: Provider, RN, Patient and Care Management ? SIGNATURE: Antony Godfrey MD PATIENT NAME: Brice Gomez DATE: April 04, 2020 TIME: 12:55 PM PAGER/CONTACT #: maize ? ? Normal [facility] PROGRESS HNO ID: [id number] Author: Donta Triplett MD Service: Infectious Disease Author Type: Physician Type: Progress Notes Filed: 04/05/2020 7:16 AM Note Text: INFECTIOUS DISEASE PROGRESS NOTE Patient Name: Brice Gomez ASSESSMENT: 1. SARS- CoV- 19 multifocal pneumonia Worsened per the most recent CT chest 2. Acute hypoxic respiratory failure due to # 1 3. Acute transaminitis 4. Normal procalcitonin 5. 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 She was started on PO levofloxacin by per PCP but her symptoms did not improve. She had been on the floor for the last one week and has been having increasing O2 requirement and moved to the ICU henceforth. ? Over the past 48 hours, she has shown much improvement in her O2 needs and is down to 4 liters via NC. D dimer is noted to be high > 4000 so on high dose lovenox per MICU. With a normal procacitonin and overall improvement in her clinical status, no need for anti bacterial ( doubt there is superimposed HAP). Overall she seems to be improving, ferritin is < 400. Ferritin 238 LD 489 CRP 4.3 PLAN: 1. Continue supportive care, supplemental O2 2. home O2 set up 3. Once patient is weaned down to 1 L O2 NC, reasonable for her to sent home 4. USD LE negative INTERVAL HISTORY: ROS done with pt/RN and negative unless stated. Feels better Breathing much better Appetite is coming back MEDICATIONS: reviewed. Current Facility-Administered Medications Medication Dose Route Frequency - buPROPion SR 200 mg tab(s) (WELLBUTRIN SR) 200 mg ORAL BID - NaCl 0.9% 3-5 mL 3-5 mL INTRAVENOUS q 12 H - pantoprazole DR 40 mg tab(s) (PROTONIX) 40 mg ORAL DAILY (6 AM) - ascorbic acid (vitamin C) 500 mg tab(s) (VITAMIN C) 500 mg ORAL DAILY - acetaminophen 650 mg tab(s) (TYLENOL) 650 mg ORAL q 6 H PRN - sodium chloride 0.65 % 2 [place] (AYR, OCEAN) 2 [place] EACH NOSTRIL PRN - albuterol HFA 90 mcg/actuation 2 Puff (PROVENTIL HFA, VENTOLIN HFA) 2 Puff INHALATION q 4 H PRN - enoxaparin 40 mg injection (LOVENOX) 40 mg SUBCUTANEOUS q 12 HR - benzonatate 100 mg cap(s) (TESSALON PERLE) 100 mg ORAL TID PRN - senna-docusate 8.6-50 mg 1 tablet (SENNA-S) 1 tablet ORAL BID PRN - loratadine 10 mg tab(s) (CLARITIN) 10 mg ORAL DAILY PHYSICAL EXAM: Vital signs: BP 110/67 Pulse 90 Temp 36.8 ?C (98.2 ?F) (Oral) Resp 18 Ht 152.4 cm (5') Wt 67.7 kg (149 lb 4.8 oz) LMP 01/13/2018 SpO2 97% BMI 29.16 kg/m? Temp (24hrs), Av.8 ?C (98.2 ?F), Min:36.6 ?C (97.9 ?F), Max:37.1 ?C (98.8 ?F) General: alert, oriented, NAD Lungs: fine bibasilar rales Heart: regular rate and rhythm Abdomen: soft, non tender, non distended, BS+ Extremities: no swollen joints Skin: no rash IV sites - wnl Lab data: reviewed Recent Labs 04/03/20 0240 WBC 7.58 HB 10.0* PLT 453* Microbiology data: reviewed Imaging data: reviewed Donta Triplett MD [phone] 04/04/2020 7:16 AM [facility] THERAPY NTon 04-04-2020 THERAPY NT HNO ID: [id number] Author: Kirill (PtMark Santos Service: Physical Therapy Author Type: Physical Therapist Type: Therapy (PT/OT/Speech/Resp) Filed: 04/04/2020 12:49 PM Note Text: Physical Therapy Treatment SERVICE DATE: 04/04/2020 SERVICE TIME: 1105 to 1130 ROOM: [place] [address] Recommended Discharge Disposition: Home Recommended Discharge Disposition Comments: Pt performed well on initial eval. Recommend home with family assist, anticipate no further needs for PT at discharge Anticipated Discharge Needs: Physical Assist at Home;Supervision at Home;Equipment Physical Assist at Home for: Shopping;Self Care;Safety;Meals;Laundr y;Cleaning;Stairs;Transp ortation Supervision at Home due to: Decreased safety awareness;Impaired cognition Recommended Discharge Equipment: No equipment needs anticipated PT Recommendations to Nursing: Ambulate without device;To bathroom;Transfer to/from chair;OOB for Meals;Sit at edge of bed;With assist of 1 person Device: No Device PT 6 Clicks Score: 23 Precaution/Activity Restriction Comments: COVID 19+ Isolation Type: Contact/Droplet(specfied precautions) ASSESSMENT : Patient continues to have decreased endurance and needs increased rest time between activities. Pt able to perform stair climbing (simulated with a step stool). Pt with good understanding of perceived rate of exertion scale. On track to go home with family at d/c. Patient Disposition at Start of Session: Sitting Edge of Bed Patient Disposition at End of Session: (sitting EOB) Tolerated Full Session Physical Therapy Problem List: Decreased Activity Tolerance;Functional Mobility Impairment;Decreased Strength Patient /Caregiver Goals: Walk;Go Home;Care For Self Goals for Plan of Care: Able to perform HEP with: Independent Transfer supine to/from sit with: Independent Transfer sit to/from stand with: Independent Ambulate with: Independent Distance: 20 ft x8 Device: No Device Goal: Perform platform step 12x independently to simulate flight of stairs to bed/bath Progress Toward Goals: Progressing as expected Rehab Potential: Excellent PLAN: Treatment Frequency (times per week): 5(3-5) Current admission Treatment Interventions: Education;Functional Mobility Training;Strengthening;B alance Training;Neuromuscular Re-education Plan of Care developed with: Patient TREATMENT INTERVENTIONS: Therapy Diagnosis: Reduced mobility-other;Decreased activities of daily living (ADL) Interventions Provided: Therapeutic Exercise (36882);Therapeutic Activity (97815);Gait Training (18247) Therapeutic Exercise (85152) Treatment Minutes: 12 1 unit Skilled Intervention(s): Instruction in therapeutic exercise in bilateral LE gen strength/anti-embolics to bilateral LEs including: Ankle pumps, Quad sets,marching, LAQ, and adductor squeeze x 10 reps reach. Verbal and tactile cuing provided . Long rest breaks required between exs Therapeutic Activity (95088) Treatment Minutes: 6 0 units Skilled Intervention(s): Education with level of perceived rate of exertion and pt able to rate self in the min to moderate range with all activities performed this session. Pt aware of resting when needed. Gait Training (07363) Treatment Minutes: 7 1 unit Skilled Intervention(s): Instruction in sit to stand technique with proper hand placement and body positioning at edge of bed/chair, Instruction in stand to sit technique with LE's touching chair/bed and reaching back for surface, Facilitation of increased ambulation distance and directed in ascending and descending a step stool stair step for stair simulation. Total Timed Code Treatment Minutes: 25 Total Treatment Time (minutes): 25 SUBJECTIVE: Current Hospital Course: Chart reviewed and no significant medical updates relevant to therapy were noted Reason for Physical Therapy Consult : eval Relevant Past Medical History: asthma Patient Report: Pt reporting fatigue following activities of her morning but willing to participate. 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 OBJECTIVE: CURRENT FUNCTIONAL STATUS: Current Functional Mobility Assist Level Additional Information Rolling Supine to Sit Supervision Sit to Supine Scooting Sit to Stand Stand By Assistance Stand to Sit Stand By Assistance Bed to Chair Toilet/Commode Gait Stand By Assistance Gait Device: None Gait Distance (feet): 45 Stairs Curb Step Contact Guard Assistance(5) Hand Held Assist;Rail Car Transfer General Deviations/Observations: Shell decreased;Step length decreased;Narrow Base of Support Balance: Static Standing;Dynamic Standing Static Standing Balance: Good Patient able to maintain balance without handhold support, limited postural sway Dynamic Standing Balance: Fair Patient accepts minimal challenge, able to maintain balance while turning head/trunk JH-HLM: 7: Walk 25 feet or more Please see discipline specific clinical documentation flowsheet for complete details for this therapy evaluation/treatment. SIGNATURE: Kirill Santos PT PATIENT NAME: Brice Gomez DATE: April 04, 2020 TIME: 12:39 PM [facility] THERAPY NT HNO ID: [id number] Author: Tere Cheathamr/Crystal Terry Service: Occupational Therapy Author Type: Occupational Therapist Type: Therapy (PT/OT/Speech/Resp) Filed: 04/04/2020 10:35 AM Note Text: Occupational Therapy Treatment SERVICE DATE: 04/04/2020 SERVICE TIME: 35 to 101 ROOM: [id number] Recommended Discharge Disposition: Home Recommended Discharge Disposition Comments: Anticipate pt will be able to complete her ADLs with family assist once she stabilizes medically and recovers her activity tolerance. Anticipated Discharge Needs: Physical Assist at Home;Supervision at Home;Equipment Physical Assist at Home for: Shopping;Self Care;Safety;Meals;Laundr y;Cleaning;Stairs;Transp ortation Supervision at Home due to: Decreased safety awareness;Impaired cognition OT Recommendations to Nursing: To Bathroom for ADL?s /and or Toileting;OOB for meals;Transfer to Chair;With assist of 1 person OT 6 Clicks Score: 20 Precaution/Activity Restriction Comments: COVID 19+ Isolation Type: Contact/Droplet(specfied precautions) ASSESSMENT: Patient demonstrates good progress towards ongoing OT goals. Patient continues to present with elevated heart rate and O2 needs. Patient demonstrates decreased activity tolerance requiring frequent rest breaks throughout session. Patient continues to present below functional baseline and would benefit from continued OT services to address functional deficits. Anticipate home discharge with support from . Patient Disposition at Start of Session: Supine in Bed;Call [place] in Reach Patient Disposition at End of Session: Supine in Bed;Call [place] in Reach Tolerated Full Session Occupational Therapy Problem List: Education Deficit;Impaired Self Care;Safety Deficits;Decreased Activity Tolerance;Decreased Strength;Functional Mobility Impairment;Balance Impaired Patient /Caregiver Goals: Go Home;Care For Self Goals for Plan of Care: Grooming with: Modified Independent Upper Body Bathing with: Modified Independent Upper Body Dressing with: Modified Independent Lower Body Bathing with: Modified Independent Lower Body Dressing with: Modified Independent Toilet Hygiene with: Modified Independent Toilet Transfer with: Modified Independent Tolerate (minutes of functional activity): 20(with 1 seated rest break ) Functional Activity with: Modified Independent Additional Goal 1: Pt to verbalize/demonstrate at least 2 WSEC techs Additional Goal 2: Pt to demo good safety with OOB ADLs Progress Toward Goals: Progressing as expected Rehab Potential: Excellent PLAN: Treatment Frequency (times per week): 6(3-6) Current admission Treatment Interventions: Education;Self Care / Home Management;Functional Mobility Training;Balance Training;Cognitive Training Plan of Care developed with: Patient TREATMENT INTERVENTIONS: Therapy Diagnosis: Reduced mobility-other;Decreased activities of daily living (ADL);Muscle Weakness (generalized);Unsteadine ss on feet;Abnormalities of gait and mobility-other Interventions Provided: Self Shelter Management (68541) Self Shelter Management (40230) Treatment Minutes: 39 3 units Skilled Intervention(s): Education in use of modified RPE scale to determine intensity of activity to guide use of energy conservation and work simplification techniques for increased participation in daily tasks OT facilitates safe mobility to bathroom for ADL standing at sink. Provision of fall guarding assistance. OT provides supervision and fall guarding assistance throughout ADL while standing at sink. CGA provided for dynamic standing tasks. Provision of intermittent cuing for pursed lip Breathing techniques due to noted shortness of breath . Time provided for rest breaks due to fatigue. Education in use of energy conservation techniques for increased participation upon discharge, discussed recommendations for shower chair and bathrobe for bathing/drying to conserve energy. Provision of verbal cues to transition to sitting to engage in prolonged overhead activity of washing and combing hair. Total Timed Code Treatment Minutes: 39 Total Treatment Time (minutes): 39 SUBJECTIVE: Current Hospital Course: Chart reviewed and no significant medical updates relevant to therapy were noted Reason for Occupational Therapy Consult: New functional deficit not expected to spontaneously improve Relevant Past Medical History: asthma Patient Report: Patient IDx2. Patient denies pain. Today is my 's grandfather's . I'd like to look descent for it. 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 OBJECTIVE: Cognition/Communication Deficits Responsiveness: Alert;Awake Follows Commands: 3-step Commands CURRENT FUNCTIONAL STATUS: Current Activities of Daily Living Assist Level Feeding Independent Grooming Stand By Assistance Bathing Upper Body Stand By Assistance Bathing Lower Body Contact Guard Assistance Dressing Upper Body Supervision Dressing Lower Body Contact Guard Assistance Toileting Stand By Assistance Functional Mobility Assist Level Rolling Supine to Sit Supervision Sit to Supine Supervision Scooting Sit to Stand Supervision Stand to Sit Supervision Bed to Chair Toilet/Commode Functional Mobility Stand By Assistance (no device) VITAL SIGNS Initial: heart rate 128 bpm SpO2 97% Activity: heart rate 121 bpm SpO2 91% sponge bathing at sink, 3 on RPE scale Post: heart rate 112 bpm, SpO2 97% Functional Mobility Comments: to/from bathroom Balance: Dynamic Standing;Static Standing Static Standing Balance: Good Patient able to maintain balance without handhold support, limited postural sway Dynamic Standing Balance: Good Patient accepts moderate challenge, able to maintain balance while picking up object off floor Activity Tolerance: Standing Activity Standing Activity: ADL at sink Standing Activity Tolerance (in minutes): 20(3 seated rest breaks) Please see discipline specific clinical documentation flowsheet for complete details for this therapy evaluation/treatment. SIGNATURE: JOE Kaminski/Annabella PATIENT NAME: Brice Gomez DATE: April 04, 2020 TIME: 10:22 AM [facility] CASE MANAGEMon 04-03-2020 CASE MANAGEM HNO ID: [id number] Author: Landry (Rn) DON Agrawal Service: Care Management Author Type: Registered Nurse Type: Care Mgt Progress Note Filed: 04/03/2020 11:03 AM Note Text: CARE MANAGEMENT PROGRESS NOTE SERVICE DATE: 04/03/2020 SERVICE TIME: 11:02 AM LOS: 9 days Needs Prior to Discharge: To Be Determined Pt received portable oxygen from [place] and has a portable tank at bedside. Oxygen concentrator is at her house. Pt's spouse will pick her up with ready for dc. SIGNATURE: Landry Agrawal RN PATIENT NAME: Brice R Bret DATE: April 03, 2020 TIME: 11:02 AM PAGER/CONTACT #: [phone] [facility] CNPN Telephone (AK[employer]D) -------- BRICE GOMEZ ([id number]) 1980 F Date Time Provider Department 04/03/20 STEPHEN ARANA During your visit today, we recorded the following information about you: Stephen Arana APRN.PALS NURSE 04/03/2020 8:[address] Gordon, Please sign the orders for Brice Gomez (CT Chest in 6 weeks f/u COVID-19 PNA) she will also need a follow up with our office afterwards. Thank you! Stephen Arana APRN.PALS NURSE April 03, 2020 8:37 AM Angie Hutchinson [facility] 04/30/2020 12:50 PM Signed Called patient she stated she is seeing another DrLuis At this time. Allergies As of Date: 04/03/2020 Noted Allergy Reaction BEE STING 05/02/2011 4 - Hives Comments: Facial edema BIAXIN (CLARITHROMYCIN) 01/08/2014 2 - Rash Comments: Patient developed a pruritic rash 7 days into course of biaxin and flagyl for H pylori infection. No mucous membrane involvement, exfoliation, fevers or joint pain/swelling. CELEXA (CITALOPRAM) 02/14/2006 8 - GI Upset ENTEX (PHENYLEPHRINE-GUAIFENES IN) 02/14/2006 5 - Intolerance Comments: Tachycardia FLAGYL (METRONIDAZOLE HCL) 01/08/2014 2 - Rash Comments: Patient developed a pruritic rash 7 days into course of biaxin and flagyl for H pylori infection. No mucous membrane involvement, exfoliation, fevers or joint pain/swelling. KEFLEX (CEPHALEXIN) 05/11/2009 2 - Rash MINOCYCLINE 02/14/2006 4 - Hives PENICILLINS 03/14/2006 2 - Rash 9 - Itching Comments: Vishnu Mosqueda type reaction. Date Reviewed: 04/03/2020 Reviewed by: Sue (Rn) Evy - Fully Assessed Reason for Visit: Orders [681] Visit Diagnoses:Lymphadenopath y [R59.1] Pneumonia of both lungs due to infectious organism, unspecified part of lung [J18.9] Prescriptions as of 04/03/2020 Sig: X IV CONTRAST (RADIOLOGY PROCED* CT Chest W -Inject, intraveno* CODEINE 10 MG-GUAIFENESIN 100* Take 5 mL by mouth four times* BENZONATATE 200 MG CAPSULE Take 200 mg by mouth three ti* ALBUTEROL SULFATE HFA 90 MCG/* Inhale 2 Puffs as instructed * BUPROPION HCL SR 200 MG TABLE* Take 1 tablet by mouth twice * DEXAMETHASONE SODIUM PHOSPHAT* 1 Drop twice daily as needed * OMEPRAZOLE 20 MG CAPSULE,JOSE* TAKE 1 CAPSULE BY MOUTH DAILY* CHOLECALCIFEROL (VITAMIN D3) * Take 2,000 Units by mouth onc* CYCLOBENZAPRINE 10 MG TABLET Take 1 tablet by mouth every * CETIRIZINE 10 MG TABLET Take 10 mg by mouth once lianna* EPINEPHRINE 0.3 MG/0.3 ML INJ* Inject 0.3 mL subcutaneously * * DAILY MULTIVITAMIN TABLET Take one(1) tablet daily. Problem List As Of Date 04/03/2020 Noted Resolved Fibrosclerosis of breast [N60.39] 07/28/2015 Allergic rhinitis [J30.9] More... SUPERVIS OTHER NORMAL PREG [Z34.80] 08/24/2006 07/25/2008 Inflammatory disease of breast [N61.0] 07/10/2007 09/14/2012 Benign neoplasm of skin of trunk, except scrotu*02/19/2008 12/06/2013 Benign neoplasm of scalp and skin of neck [D23.*02/19/2008 12/06/2013 Benign neoplasm of skin of other and unspecifie*02/19/2008 12/06/2013 Benign neoplasm of skin of upper limb, includin*02/19/2008 12/06/2013 Scar condition and fibrosis of skin [L90.5] 02/19/2008 12/06/2013 Unspecified hypertrophic and atrophic condition*02/19/2008 12/06/2013 FOLLICULITIS///HAIR DISEASES NEC [L73.8] 09/10/2008 12/06/2013 Pyoderma, unspecified [L08.0] 03/19/2009 12/06/2013 Neoplasm of uncertain behavior of skin [D48.5] 09/29/2009 07/28/2015 Other acne [L70.8] 09/29/2009 07/28/2015 Hidradenitis suppurativa [L73.2] 09/29/2009 07/28/2015 Keloid scar [L91.0] 09/29/2009 07/28/2015 Hypertrophic scar [L91.0] 09/29/2009 07/28/2015 Depression [F32.9] 11/06/2009 Kidney stones [N20.0] 11/06/2009 More... Atypical nevus of lower leg [D22.70] 04/11/2012 07/28/2015 Atypical nevus of thigh [D22.70] 04/11/2012 07/28/2015 Melanocytic nevi of lower extremity or hip [D22*04/11/2012 07/28/2015 Melanocytic nevi of face [D22.30] 04/11/2012 07/28/2015 Melanocytic nevi of upper extremity or shoulder*04/11/2012 07/28/2015 Other psoriasis [L40.8] 04/11/2012 Callus [L84] 04/11/2012 07/28/2015 Hyperpigmentation of skin [L81.9] 04/11/2012 07/28/2015 Xerosis cutis [L85.3] 04/11/2012 07/28/2015 Actinic skin damage [L57.8] 04/11/2012 07/28/2015 Solar lentiginosis [L81.4] 04/11/2012 07/28/2015 Other seborrheic keratosis [L82.1] 04/11/2012 07/28/2015 Breast lump [N63.0] 09/14/2012 01/31/2013 Breast pain [N64.4] 09/14/2012 01/31/2013 Abnormal mammography [R92.8] 09/14/2012 05/30/2014 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] 10/08/2012 Chalazion of left lower eyelid [H00.15] 01/14/2013 Neck pain, bilateral [M54.2] 01/14/2013 Abnormal uterine bleeding [N93.9] 01/31/2013 05/30/2014 Dyspareunia [QFV0764] 02/14/2013 Complex ovarian cyst [N83.299] 02/14/2013 05/28/2013 Atypical Nevus of female breast: R/O Dysplastic*12/06/2013 07/28/2015 Melanocytic nevi of trunk [D22.5] 12/06/2013 07/28/2015 Melanocytic nevi of scalp and neck [D22.4] 12/06/2013 07/28/2015 Solar lentigo [L81.4] 12/06/2013 07/28/2015 Scars [L90.5] 12/06/2013 07/28/2015 Skin tag [L91.8] 12/06/2013 07/28/2015 Vitamin D deficiency [E55.9] 05/05/2015 Generalized anxiety disorder [F41.1] 06/10/2016 Exertional asthma [J45.990] 08/15/2017 High myopia, bilateral [H52.13] 11/06/2017 Regular astigmatism, bilateral [H52.223] 11/06/2017 S/P ASA/PRK (advanced surface ablation photoref*01/06/2018 COVID-19 virus infection [U07.1] 03/25/2020 Prescriptions ordered this encounter Disp Refills Start End IV CONTRAST (RADIOLOGY PROCEDURE) 1 Ea* 0 04/03/2020 04/03/2020 Class: In Office Sig: CT Chest W -Inject, intravenously, once for 1 dose.No IV access, insert saline lock prior to the beginning of sedation, infusion, injection of imaging exam. Discontinue saline lock post exam. If Pt. has a central line or IVAD, may access for administration according to line specific nursing protocol. Once exam is complete flush line and de-access according to line specific nursing protocol in the CT contrast administration guidelines link. Encounter Status:Closed by ELENO GORDON MD on 04/03/20 [facility] NURSING PROGon 04-03-2020 NURSING PROG HNO ID: [id number] Author: Traci (Rn) DON Gillespie Service: Nursing Author Type: Registered Nurse Type: Nursing Progress Note Filed: 04/03/2020 3:23 AM Note Text: Nursing Progress Note Patient Name: Brice Gomez Patient Location: [id number] Daily Note:Sound [phone] paged, awaiting call back This note was completed by: Traci Gillespie RN [facility] NUTRITIONon 04-03-2020 NUTRITION HNO ID: [id number] Author: Elizabeth Chavez Service: Nutrition Therapy Author Type: Registered Dietitian Type: Nutrition Filed: 04/03/2020 3:27 PM Note Text: NUTRITION THERAPY PROGRESS NOTE SERVICE DATE: 04/03/2020 SERVICE TIME: 3:22 PM Nutrition Assessment: Recommended Malnutrition Diagnosis: Mild Protein-Calorie Malnutrition (03/25/20 1200 : Elizabeth Chavez) Estimated kilocalorie needs: [id number] Calorie Calculation Method: 20-25 kcals/kg Estimated protein needs (grams): 85-111 Grams protein determined by: 1.3-1.7 g/kg Care Plan: Continue current diet. Encourgae PO intake. Supplements: Boost Glucose Control;Ensure Max;Magic Cup Monitor and Evaluation: Monitor fluid/electrolyte balance;Meet greater than 75% of estimated needs;Monitor labs, I/Os, vital signs, weight Discharge Recommendations: Diet;Oral Supplements Diet: Regular Oral Supplements: Continue with high protien supplement of patient's choice as needed Nutrition Follow-up: Interval History: Transferred to floor 04/02. Stable on 4L NC and off abx. Poor intake remains poor. Plan to d/c home. Anthropometrics: Height: 152.4 cm (5') Weight: 67.7 kg (149 lb 4.8 oz) Dosing Weight: 65 kg (143 lb 4.8 oz) Body mass index is 29.16 kg/m?. Overweight Weight change percentage over time: Insignificant weight meter changes records clerk the past > 6 months Intake History: Current Intake: Less than 75% estimated energy needs(or equal to ) over: the past 2 days. Appetite improving. ~75% at meals. Taking some supplements. Current Diet: DIET REGULAR SIGNATURE: Elizabeth Chavez RD, AILYN PATIENT NAME: Brice Gomez DATE: April 03, 2020 TIME: 3:22 PM PAGER: [phone] [facility] PROGRESSon 04-03-2020 PROGRESS HNO ID: [id number] Author: Antony Godfrey MD Service: Hospital Medicine Author Type: Physician Type: Progress Notes Filed: 04/03/2020 4:05 PM Note Text: DEPARTMENT OF HOSPITAL MEDICINE PROGRESS NOTE SERVICE DATE: 04/03/2020 SERVICE TIME: 3:55 PM Hospital Medicine/Primary Attending: Antony Godfrey MD NIGHT AND WEEKEND COVERAGE: After 7pm please page [phone] CHIEF COMPLAINT: Follow up for Covid 19 infection SUBJECTIVE: Patient seen and examined. Better today than yesterday. Still very short of breath even at rest. Worsens with activity. Was up with therapy today. OBJECTIVE: PHYSICAL EXAM: BP 102/59 Pulse 97 Temp (Src) 98.1 (Oral) Resp 18 Ht 5' 0 (1.52m) Wt 149 lb 4.8 oz (67.7kg) SpO2 98% LMP 01/13/2018 BMI 29.16 kg/(m2). O2 Therapy: Nasal Cannula, Liters: 4 General - AANDOx3, acutely ill-looking, anxious appearing, dyspneic at rest. CV - RRR S1 S2, No M/R/G RESP - diminished breath sounds bilaterally. ABD - soft, NT, ND +BS EXT - no gross joint deformity, no clubbing, cyanosis, edema NEURO - CN II-XII grossly intact, no focal deficits MEDICATIONS: Current Facility-Administered Medications Medication Dose Route Frequency - buPROPion SR 200 mg tab(s) (WELLBUTRIN SR) 200 mg ORAL BID - NaCl 0.9% 3-5 mL 3-5 mL INTRAVENOUS q 12 H - pantoprazole DR 40 mg tab(s) (PROTONIX) 40 mg ORAL DAILY (6 AM) - ascorbic acid (vitamin C) 500 mg tab(s) (VITAMIN C) 500 mg ORAL DAILY - acetaminophen 650 mg tab(s) (TYLENOL) 650 mg ORAL q 6 H PRN - sodium chloride 0.65 % 2 [place] (AYR, OCEAN) 2 [place] EACH NOSTRIL PRN - albuterol HFA 90 mcg/actuation 2 Puff (PROVENTIL HFA, VENTOLIN HFA) 2 Puff INHALATION q 4 H PRN - nystatin 5 mL oral liquid (MYCOSTATIN) 5 mL ORAL QID - enoxaparin 40 mg injection (LOVENOX) 40 mg SUBCUTANEOUS q 12 HR - benzonatate 100 mg cap(s) (TESSALON PERLE) 100 mg ORAL TID PRN - senna-docusate 8.6-50 mg 1 tablet (SENNA-S) 1 tablet ORAL BID PRN DATA: Diagnostic tests reviewed for today's visit: CBC: Recent Labs 04/03/20 0240 WBC 7.58 RBC 3.54* HB 10.0* HCT 31.6* PLT 453* MCV 89.3 MCH 28.2 MPV 10.2 RDW 13.4 Coags: No results for input(s): INR, APTT in the last 24 hours. Invalid input(s): PT BMP: No results for input(s): NA, K, CHLOR, CO2, BUN, CREAT, GLUC in the last 24 hours. CMP: No results for input(s): NA, K, CHLOR, CO2, BUN, CREAT, GLUC, TPROT, CA, MG, ALBUMIN, TBILI, ALKPHOS, ALT, AST, ANION in the last 24 hours. Cardiac Enzymes: No results for input(s): CK, MB, CKMB, TROPT in the last 24 hours. Liver Function, Amylase, Lipase: No results for input(s): TPROT, ALB, ALT, AST, ALKPHOS, TBILI, AMYLASE, LIPASE, LACTATE in the last 24 hours. MG/PHOS: No results for input(s): MG, P in the last 24 hours. Renal Panel: No results for input(s): ALBUMIN, CREAT, BUN, GLUC, CA, P, CHLOR, K, CO2, NA in the last 24 hours. Heme: No results for input(s): RETICP, ABSRETIC, LD, CHARLI, FE, TIBC, TRANSFERSAT in the last 24 hours. No results found for: UALBCR Assessment/Plan Active Problems: COVID-19 virus infection POA: Yes Assessment AND Plan: Complicated by viral multifocal pneumonia and acute hypoxic respiratory failure. Required supplemental oxygen with Airvo in the intensive care unit. Now stable on intranasal cannulae oxygen. The patient's disease following. Appreciate input. Elevated d-dimer. Related to acute Covid infection. Patient on prophylactic anti-coagulation with Lovenox. Resolved Problems: * No resolved hospital problems. * VTE Prophylaxis: Lovenox 40mg Sub Q Daily Disposition: Home Plan of care discussed with: Provider, RN, Patient and Care Management SIGNATURE: Antony Godfrey MD PATIENT NAME: Brice Gomez DATE: April 03, 2020 TIME: 3:55 PM PAGER/CONTACT #: colin [facility] PROGRESS HNO ID: [id number] Author: Elian Philip Service: Infectious Disease Author Type: Physician Type: Progress Notes Filed: 04/03/2020 3:46 PM Note Text: INFECTIOUS DISEASE PROGRESS NOTE Patient Name: Brice Gomez Date: 04/03/2020 ASSESSMENT: 1. SARS- CoV- 19 multifocal pneumonia Worsened per the most recent CT chest 2. Acute hypoxic respiratory failure due to # 1 3. Acute transaminitis 4. Normal procalcitonin 5. 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 She was started on PO levofloxacin by per PCP but her symptoms did not improve. She had been on the floor for the last one week and has been having increasing O2 requirement and moved to the ICU henceforth. ? Over the past 48 hours, she has shown much improvement in her O2 needs and is down to 4 liters via NC. D dimer is noted to be high > 4000 so on high dose lovenox per MICU. With a normal procacitonin and overall improvement in her clinical status, no need for anti bacterial ( doubt there is superimposed HAP). Overall she seems to be improving, ferritin is < 400. Ferritin 238 LD 489 CRP 4.3 PLAN: 1. Continue supportive care, supplemental O2 2. Spoke to her on the phone, they have home O2 set up 3. Once patient is weaned down to 1 L O2 NC, reasonable for her to sent home 4. USD LE negative INTERVAL HISTORY: ROS done with pt/RN and negative unless stated. Feels better Breathing much better Appetite is coming back MEDICATIONS: reviewed. Current Facility-Administered Medications Medication Dose Route Frequency - buPROPion SR 200 mg tab(s) (WELLBUTRIN SR) 200 mg ORAL BID - NaCl 0.9% 3-5 mL 3-5 mL INTRAVENOUS q 12 H - pantoprazole DR 40 mg tab(s) (PROTONIX) 40 mg ORAL DAILY (6 AM) - ascorbic acid (vitamin C) 500 mg tab(s) (VITAMIN C) 500 mg ORAL DAILY - acetaminophen 650 mg tab(s) (TYLENOL) 650 mg ORAL q 6 H PRN - sodium chloride 0.65 % 2 [place] (AYR, OCEAN) 2 [place] EACH NOSTRIL PRN - albuterol HFA 90 mcg/actuation 2 Puff (PROVENTIL HFA, VENTOLIN HFA) 2 Puff INHALATION q 4 H PRN - nystatin 5 mL oral liquid (MYCOSTATIN) 5 mL ORAL QID - enoxaparin 40 mg injection (LOVENOX) 40 mg SUBCUTANEOUS q 12 HR - benzonatate 100 mg cap(s) (TESSALON PERLE) 100 mg ORAL TID PRN - senna-docusate 8.6-50 mg 1 tablet (SENNA-S) 1 tablet ORAL BID PRN PHYSICAL EXAM: Vital signs: BP 129/84 Pulse 100 Temp 36.9 ?C (98.4 ?F) (Oral) Resp 22 Ht 152.4 cm (5') Wt 67.7 kg (149 lb 4.8 oz) LMP 01/13/2018 SpO2 92% BMI 29.16 kg/m? Temp (24hrs), Av.8 ?C (98.2 ?F), Min:36.6 ?C (97.9 ?F), Max:37.1 ?C (98.8 ?F) General: alert, oriented, NAD Lungs: fine bibasilar rales Heart: regular rate and rhythm Abdomen: soft, non tender, non distended, BS+ Extremities: no swollen joints Skin: no rash IV sites - wnl Lab data: reviewed Recent Labs 04/03/20 0240 04/02/20 0545 04/01/20 0200 WBC 7.58 7.08 7.96 HB 10.0* 11.1* 10.3* PLT 453* 467* 375* INR -- -- 0.95 NA -- 139 138 K -- 4.1 3.0* CO2 -- 24 26 BUN -- 13 9 CREAT -- 0.57* 0.53* AST -- 46* 81* ALT -- 127* 165* TBILI -- 0.3 0.3 ALKPHOS -- 108 110 CRP -- 4.3* 9.8* Microbiology data: reviewed Imaging data: reviewed Elian Philip MD, [facility] Infectious Diseases Pager: [phone] [facility] PROGRESS HNO ID: [id number] Author: Stephen Arana Service: Pulmonary Disease Author Type: Nurse Practitioner Type: Progress Notes Filed: 04/03/2020 8:36 AM Note Text: -------- Attestation signed by Sara Gordon at 04/03/2020 9:27 AM I have reviewed the documentation by the resident/ KAITLYN/primary service/ consultants including the history, exam, impression, and recommendations. Relevant prior records were reviewed as well as relevant diagnostic tests, including labs and imaging. Please reference any relevant documentation elsewhere by me today or by my residents/APPs. A face to face encounter with the patient was not performed because of the current efforts to prevent transmission of COVID-19. Care will be coordinated with the primary service. 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 Wean as tolerated to RA. Keep sats > 90% Check ambulatory pulse oximetry prior to hospital discharge ID consult appreciated- stable off Abx since low procal, continue to monitor off Abx Trend d-dimer since increasing Continue High dose lovenox given d-dimer >3000 and increasing OOB to chair encourage po intake Recommend rpt CT chest in 6-8 weeks Will need out patient pulmonary follow up SIGNATURE: Sara Gordon MD [facility] 9:17 AM -------- PULMONARY PROGRESS NOTE CCAGHS Due to the current efforts to prevent transmission of COVID-19 and also the need to preserve PPE for other caregivers, a face to face encounter with the patient was not performed. That being said, all relevant records AND diagnostic tests were reviewed, including laboratory results and imaging. Please reference any relevant documentation elsewhere. Care will be coordinated with the primary service. SERVICE DATE: April 03, 2020 SERVICE TIME: 7:41 AM Subjective *I personally called the patient this morning to discuss her symptoms and further plan of care via telephone. Patient continues to feel short of breath with minimal activity. +Dry cough. No phlegm. No wheezing, phlegm, chest pain, fevers or chills. Objective OBJECTIVE Current Facility-Administered Medications Medication Dose Route Frequency Provider Last Rate Last Dose - senna-docusate 8.6-50 mg 1 tablet (SENNA-S) 1 tablet ORAL BID PRN Maximiliano Zeng MD - nystatin 5 mL oral liquid (MYCOSTATIN) 5 mL ORAL QID Maximiliano Zeng MD 5 mL at 04/02/202018 - enoxaparin 40 mg injection (LOVENOX) 40 mg SUBCUTANEOUS q 12 HR Maximiliano Zeng MD 40 mg at 04/02/202019 - benzonatate 100 mg cap(s) (TESSALON PERLE) 100 mg ORAL TID PRN Maximiliano Zeng MD 100 mg at 04/02/202241 - sodium chloride 0.65 % 2 [place] (AYR, OCEAN) 2 [place] EACH NOSTRIL PRN Maximiliano Zeng MD - albuterol HFA 90 mcg/actuation 2 Puff (PROVENTIL HFA, VENTOLIN HFA) 2 Puff INHALATION q 4 H PRN Maximiliano Zeng MD 2 Puff at 04/02/202124 - acetaminophen 650 mg tab(s) (TYLENOL) 650 mg ORAL q 6 H PRN Maximiliano Zeng MD 650 mg at 04/02/202020 - ascorbic acid (vitamin C) 500 mg tab(s) (VITAMIN C) 500 mg ORAL DAILY Maximiliano Zeng MD 500 mg at 04/02/20 0831 - buPROPion SR 200 mg tab(s) (WELLBUTRIN SR) 200 mg ORAL BID Maximiliano Zeng MD 200 mg at 04/02/20 2019 - cholecalciferol 2,000 Units tab(s) (VITAMIN D3) 2,000 Units ORAL DAILY Maximiliano Zeng MD 2,000 Units at 04/02/20 0831 - NaCl 0.9% 3-5 mL 3-5 mL INTRAVENOUS q 12 H Maximiliano Zeng MD 3 mL at 04/02/202019 - pantoprazole DR 40 mg tab(s) (PROTONIX) 40 mg ORAL DAILY (6 AM) Maximiliano Zeng MD 40 mg at 04/03/20 0603 INTAKE AND OUTPUT Intake/Output Summary (Last 24 hours) at 04/03/2020 0741 Last data filed at 04/02/2020 1200 Gross per 24 hour Intake 600 ml Output ? Net 600 ml New Radiology Films: Bilateral LE Doppler 04/01/20: Negative study for proximal DVT in the left and right lower extremities. Negative study for calf DVT in the left and right lower extremities. Negative study for superficial thrombophlebitis in the imaged segments of the left and right lower extremities. CXR 03/31/20: The bilateral infiltrates, most prominent in the mid to lower lung zones, appears similar to slightly worsened since the prior study. There is no identifiable pneumothorax, pneumomediastinum, pleural effusion, or other acute radiographic abnormality. Cardiomediastinal silhouette: The cardiac silhouette and mediastinum appear unchanged. CT Chest for PE 03/29/20: No CT evidence of pulmonary embolism. Extensive crazy paving type opacity bilaterally which is worrisome for multifocal pneumonia, possibly viral in nature. Mediastinal and hilar lymphadenopathy which is likely reactive. New Micro: MRSA - No MRSA detected New Labs: D-Dimer 04/03: 5,950 D-Dimer 04/02: 4,380 D-Dimer 04/01: 3,180 D-Dimer 03/31: 1,620 CRP: 4.2 --> 6.3 --> 9.8 BNP: 55 BNP: 100 Procalcitonin: 0.07 BMP: Glucose (mg/dL) Date Value 04/02/2020 90 Potassium (mmol/L) Date Value 04/02/2020 4.1 Sodium (mmol/L) Date Value 04/02/2020 139 Chloride (mmol/L) Date Value 04/02/2020 104 CO2 (mmol/L) Date Value 04/02/2020 24 Creatinine (mg/dL) Date Value 04/02/2020 0.57 BUN (mg/dL) Date Value 04/02/2020 13 Anion Gap (mmol/L) Date Value 04/02/2020 11 Calcium (mg/dL) Date Value 04/02/2020 8.9 CBC: Hemoglobin (g/dL) Date Value 01/24/2018 13.1 02/02/2016 14.1 01/14/2013 12.5 HGB (g/dL) Date Value 04/03/2020 10.0 04/02/2020 11.1 04/01/2020 10.3 Hematocrit (%) Date Value 04/03/2020 31.6 04/02/2020 33.8 04/01/2020 31.3 WBC (thou/cmm) Date Value 04/03/2020 7.58 04/02/2020 7.08 04/01/2020 7.96 Vital Signs 04/02/20 1700 04/02/20 1840 04/02/20 2242 04/03/20 0232 BP: 122/71 119/69 106/56 113/65 Pulse: 104 104 96 99 Resp: 28 18 20 18 Temp: 36.6 ?C (97.9 ?F) 37.1 ?C (98.8 ?F) 36.8 ?C (98.2 ?F) 36.9 ?C (98.4 ?F) TempSrc: Oral Oral Oral SpO2: 95% 95% 94% 97% Weight: 67.7 kg (149 lb 4.8 oz) Height: 152.4 cm (5') PHYSICAL EXAM: Vitals: Reviewed above. Patient is on 4L NC. *As above, a physical exam was deferred in this patient. Patient was AAOx3, pleasant and with clear speech while speaking to her via telephone. Per IDs assessment on 04/02, breath sounds were with bibasilar fine rales posteriorly. Otherwise, exam was unremarkable. Assessment and Plan: ? 1) Acute on Chronic mixed Hypoxic AND Hypercapnic Respiratory Failure in the setting of #2 AND #3. Patient improved off Airvo AND is now stable on 4L. Continue to wean O2 as able to room air and keep sats > 90%. Continue with Albuterol HFA PRN. Encourage use of both acapella and IS Q1H. Increase activity as tolerated / up out of bed. Check ambulatory pulse oximetry prior to hospital discharge. *CT Chest was without evidence of acute PE. 2) COVID-19 Viral Illness - Patient initially received 2-3 days of Levaquin per ID, though due to her symptoms not improving, this was discontinued on 04/01. Continue to monitor off antibiotics for now as there is a low clinical suspicion for a superimposed bacterial pneumonia. Continue with symptomatic care AND PRN Tylenol. Inflammatory markers are trending upwards; thus continue to monitor closely. Continue with therapeutic Lovenox for now (40 mg SQ BID) until D-dimer is less than 3,000, then switch to prophylactic daily dosing. However, if patient is discharged and the D-Dimer remains > 3,000, I would not recommend discharging her on home-going anticoagulation. Anticipate a slow recovery and monitor closely for any deterioration. She will need a close follow up with our office 6 weeks after hospital discharge. Patient will need a follow up CT in 6-8 weeks to ensure complete radiographic resolution with a follow up with our office afterwards. 3) COVID-19 Viral Pneumonia - See plan above. 4) Mediastinal and Hilar Lymphadenopathy - likely reactive in the setting of #2 / #3. Follow up CT Chest as outlined above. 5) Discharge Planning - Patient is stable out of ICU from a pulmonary / critical care standpoint. We will follow periphearlly as we currently have no new recommendations at this time. Continue with recommendations per ID. Please call with any questions/concerns or if the patient worsens in any way. Follow up CT Chest as outlined above. SIGNATURE: Stephen Arana APRN, DAISY PATIENT NAME: Brice Gomez DATE: April 03, 2020 TIME: 7:41 AM PAGER/CONTACT #: [phone] [facility] THERAPY NTon 04-03-2020 THERAPY NT HNO ID: [id number] Author: Kirsten Cheathamr/Crystal Bethea Service: Occupational Therapy Author Type: Occupational Therapist Type: Therapy (PT/OT/Speech/Resp) Filed: 04/03/2020 2:54 PM Note Text: Occupational Therapy Evaluation SERVICE DATE: 04/03/2020 SERVICE TIME: 837 ROOM: [id number] Recommended Discharge Disposition: Home Recommended Discharge Disposition Comments: Anticipate pt will be able to complete her ADLs with family assist once she stabilizes medically and recovers her activity tolerance. Anticipated Discharge Needs: Physical Assist at Home;Supervision at Home;Equipment Physical Assist at Home for: Shopping;Self Care;Safety;Meals;Laundr y;Cleaning;Stairs;Transp ortation Supervision at Home due to: Decreased safety awareness;Impaired cognition OT Recommendations to Nursing: ADL?s in chair;To Bathroom for ADL?s /and or Toileting;OOB for meals;Transfer to Chair;With assist of 1 person(pt safely able to get herself to the BSC without assist) OT 6 Clicks Score: 20 Precaution/Activity Restriction Comments: COVID 19+ Isolation Type: Contact/Droplet(specfied precautions) ASSESSMENT: Patient presents with deficits in grooming, UE bathing/dressing, LE bathing/dressing, functional transfers, functional mobility, decreased safety awareness, and decreased insight to deficits after pt admitted for recurrent COVID infection requiring ICU stay and airvo. Requires skilled OT for to maximize independence with out of bed activites of daily living, standing activity tolerance, work simplification / energy conservation techs, and functional transfers Patient Disposition at Start of Session: Supine in Bed;Call [place] in Reach Patient Disposition at End of Session: OOB in Chair;Call [place] in Reach Tolerated Full Session Occupational Therapy Problem List: Education Deficit;Impaired Self Care;Safety Deficits;Decreased Activity Tolerance;Decreased Strength;Functional Mobility Impairment;Balance Impaired Patient /Caregiver Goals: Go Home;Care For Self Goals for Plan of Care: Grooming with: Modified Independent Upper Body Bathing with: Modified Independent Upper Body Dressing with: Modified Independent Lower Body Bathing with: Modified Independent Lower Body Dressing with: Modified Independent Toilet Hygiene with: Modified Independent Toilet Transfer with: Modified Independent Tolerate (minutes of functional activity): 8(min standing tolerance with 2 seated rest breaks) Functional Activity with: Modified Independent Additional Goal 1: Pt to verbalize/demonstrate at least 2 WSEC techs Additional Goal 2: Pt to demo good safety with OOB ADLs Rehab Potential: Excellent PLAN: Treatment Frequency (times per week): 6(3-6) Current admission Treatment Interventions: Education;Self Care / Home Management;Functional Mobility Training;Balance Training;Cognitive Training Plan of Care developed with: Patient TREATMENT INTERVENTIONS: Therapy Diagnosis: Reduced mobility-other;Decreased activities of daily living (ADL);Muscle Weakness (generalized);Unsteadine ss on feet;Abnormalities of gait and mobility-other Interventions Provided: Evaluation $ Evaluation-Moderate (76500) Billed Units: 1 unit OT Evaluation Moderate Complexity: Occupational Profile - Extended review of patient's medical record completed including patient's physical, cognitive, and psycho-social history (please see current hospital course of evaluation). Occupational Performance - Pt presents with deficits in grooming, UE bathing/dressing, LE bathing/dressing, functional transfers, functional mobility, decreased safety awareness, decreased insight into deficits Complexity in Clinical Decision Making - The extent of clinical reasoning was moderate, several treatment options present for the patient, need for modification during the evaluation was minimal/moderate, comorbidities affecting occupational performance: asthma Reviewed COVID packet info and briefly reviewed work simplification / energy conservation techs or activites of daily living, figure four tech, etc. Did not complete any further treatment due to pt wanting to finish her breakfast up in the chair. Total Treatment Time (minutes): 23 SUBJECTIVE: Current Hospital Course: Chart reviewed; a 39-year-old female with past medical history of asthma, and recent diagnosis of Covid 19 as an outpatient about 4 days ago came to the emergency room complaining of fever/worsening exertional shortness of breath/ cough/nausea/worsening generalized weakness. 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 03/30 ICU c/s O2 demand up from 2 to % Liters, pt eventually requires AIRVO in ICU. Possible secondary PNA Reason for Occupational Therapy Consult: New functional deficit not expected to spontaneously improve Relevant Past Medical History: asthma Patient Report: I'm feeling a lot better Pain: mild hip pain Home Environment Patient Lives With: Spouse(2 teenagers) Assistance Available: maritime pilot Entry To Home: Stairs Number Of Stairs Into Home: (1+1) Number Of Stairs To Bed/Bath: flight to bedroom, has 1/2 bath on first floor Tub/Shower Type: garden tub Laundry: main floor Equipment Owned: (transport W/C) Prior Functional Level: Within Functional Limits Prior Functional Level Comments: Pt normally independent with ADLs/IADLs normally works as a nurse at [employer]. OBJECTIVE: Cognition/Communication Deficits Responsiveness: Alert;Awake Follows Commands: 2-step Commands CURRENT FUNCTIONAL STATUS: Current Activities of Daily Living Assist Level Feeding Modified Independent Grooming Contact Guard Assistance Bathing Upper Body Contact Guard Assistance Bathing Lower Body Minimal Assistance Dressing Upper Body Supervision Dressing Lower Body Minimal Assistance Toileting Contact Guard Assistance(BSC) Functional Mobility Assist Level Rolling Supine to Sit Supervision Sit to Supine Supervision Scooting Sit to Stand Supervision Stand to Sit Supervision Bed to Chair Toilet/Commode Functional Mobility Stand By Assistance Range of Motion: WFL Strength: WFL Balance: Dynamic Standing;Static Standing Static Standing Balance: Good Patient able to maintain balance without handhold support, limited postural sway Dynamic Standing Balance: Good Patient accepts moderate challenge, able to maintain balance while picking up object off floor Edu pt on fall prevention / up with assistance. Pt left in room in chair with calllight within reach. Please see discipline specific clinical documentation flowsheet for complete details for this therapy evaluation/treatment. SIGNATURE: JOE Avelar/Annabella PATIENT NAME: Brice Gomez DATE: April 03, 2020 TIME: 2:48 PM [facility] THERAPY NT HNO ID: [id number] Author: Mani (Pt) SANJU Herman Service: Physical Therapy Author Type: Physical Therapist Type: Therapy (PT/OT/Speech/Resp) Filed: 04/03/2020 1:37 PM Note Text: Physical Therapy Evaluation SERVICE DATE: 04/03/2020 SERVICE TIME: 08 to 08 ROOM: [id number] Recommended Discharge Disposition: Home Recommended Discharge Disposition Comments: Pt performed well on initial eval. Recommend home with family assist, anticipate no further needs for PT at discharge Anticipated Discharge Needs: Physical Assist at Home Physical Assist at Home for: Cleaning;Laundry;Shoppin g;Transportation Recommended Discharge Equipment: No equipment needs anticipated PT Recommendations to Nursing: Ambulate without device;To bathroom;Transfer to/from chair;OOB for Meals;Sit at edge of bed;With assist of 1 person Device: No Device PT 6 Clicks Score: 23 Precaution/Activity Restriction Comments: COVID 19+ Isolation Type: Contact/Droplet(specfied precautions) ASSESSMENT : This patient was admitted for COVID 19, has no notable past medical history relevant to PT impacting current functional level, as well as the social factors complicating the discharge of steps to enter and to bed/bathroom at home, electrical parts reconditioner assist from available. This patient is below baseline functioning of independent and will benefit from continued skilled therapy in the hospital for treatment of the following body systems/impairments: musculoskeletal strength, ROM; neuromuscular control, coordination, balance; functional mobility including bed mobility, transfers, gait, stairs; cardiopulmonary endurance to physical activity Patient Disposition at Start of Session: Supine in Bed;Call [place] in Reach Patient Disposition at End of Session: OOB in Chair;Call [place] in Reach Tolerated Full Session Physical Therapy Problem List: Decreased Activity Tolerance;Functional Mobility Impairment;Decreased Strength Patient /Caregiver Goals: Walk;Go Home;Care For Self Goals for Plan of Care: Able to perform HEP with: Independent Transfer supine to/from sit with: Independent Transfer sit to/from stand with: Independent Ambulate with: Independent Distance: 20 ft x8 Device: No Device Goal: Perform platform step 12x independently to simulate flight of stairs to bed/bath Rehab Potential: Excellent PLAN: Treatment Frequency (times per week): 5(3-5) Current admission Treatment Interventions: Education;Functional Mobility Training;Strengthening;B alance Training;Neuromuscular Re-education Plan of Care developed with: Patient TREATMENT INTERVENTIONS: Therapy Diagnosis: Reduced mobility-other;Decreased activities of daily living (ADL) Interventions Provided: Evaluation;Therapeutic Activity (68923) $ Evaluation-Moderate (69047) Billed Units: 1 unit History and examination of body systems see assessment section above. This patient?s clinical presentation is evolving. The patient required a moderate complexity evaluation. Therapeutic Activity (68691) Treatment Minutes: 8 1 unit Skilled Intervention(s): Educated on role of physical therapy in the hospital and in discharge planning, benefits of participation in physical activity on progression of functional status, risks of immobility Facilitated sequence and safety during mobility in room, ambulating to/from door with stand by assist. Required assistance to manage lines and monitored vitals throughout Educated in expectations for progression with therapy, disease process and physiology of COVID. Educated in expectations for continued fatigue and potential need to be strategic with planning activities throughout the day at discharge, or requesting help from family as needed. Oriented to printed resources and materials in therapy folder including breathing exercises, lower extremity strengthening exercises, and RPE scale. Total Timed Code Treatment Minutes: 8 Total Treatment Time (minutes): 23 SUBJECTIVE: Current Hospital Course: Chart reviewed; Pt presented from home with COVID 19. Pt required ICU admission and was on 30L airvo but was not intubated. Eventually weaned down to 4L O2 and transferred to regular nursing floor yesterday 04/02 Reason for Physical Therapy Consult : eval Relevant Past Medical History: none relevant to PT Patient Report: Pt pleasant and agreeable to physical therapy. Expressed she was anxious about going home soon, hoping it wasn't today. 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 OBJECTIVE: Range of Motion: WFL Strength: WFL CURRENT FUNCTIONAL STATUS: Current Functional Mobility Assist Level Additional Information Rolling Supine to Sit Supervision Sit to Supine Scooting Sit to Stand Stand By Assistance Stand to Sit Stand By Assistance Bed to Chair Toilet/Commode Gait Stand By Assistance Gait Device: None Gait Distance (feet): 30 ft Stairs Curb Step Car Transfer General Deviations/Observations: Shell decreased;Step length decreased;Narrow Base of Support Balance: Static Standing;Dynamic Standing Static Standing Balance: Good Patient able to maintain balance without handhold support, limited postural sway Dynamic Standing Balance: Fair Patient accepts minimal challenge, able to maintain balance while turning head/trunk JH-HLM: 7: Walk 25 feet or more Please see discipline specific clinical documentation flowsheet for complete details for this therapy evaluation/treatment. SIGNATURE: Mani Herman PT PATIENT NAME: Brice Gomez DATE: April 03, 2020 TIME: 1:30 PM [facility] CASE MANAGEMon 04-02-2020 CASE MANAGEM HNO ID: [id number] Author: Bree FuentesRn) DON Chery Service: Care Management Author Type: Registered Nurse Type: Care Mgt Progress Note Filed: 04/02/2020 1:46 PM Note Text: CARE MANAGEMENT PROGRESS NOTE SERVICE DATE: 04/02/2020 SERVICE TIME: 1:44 PM LOS: 8 days Needs Prior to Discharge: Oxygen Set-up;To Be Determined Called and spoke with pt- on 4-8 L NC O2 in last 24 hours. Discussed possible O2 needed at home. Pt states she would like referral to [facility] [place] that provided CPAP for her in past. Referral created. Pt states she feels strong and has been getting out of be to chair. Goal remains DC home. SIGNATURE: Bree Chery RN PATIENT NAME: Brice Gomez DATE: April 02, 2020 TIME: 1:44 PM PAGER/CONTACT #: [phone] [facility] NURSING PROGon 04-02-2020 NURSING PROG HNO ID: [id number] Author: Ijeoma FuentesRn) DON Smith Service: Nursing Author Type: Registered Nurse Type: Nursing Progress Note Filed: 04/02/2020 5:50 PM Note Text: Report called to Rn on 9100, pt to be transferred. No complaints per pt. [facility] NURSING PROG HNO ID: [id number] Author: Ijeoma Alonzo) DON Smith Service: Nursing Author Type: Registered Nurse Type: Nursing Progress Note Filed: 04/02/2020 5:27 PM Note Text: Tried to call report. [phone] unable to take report. Will call back. Tried to call Rodrigo line busy. [facility] PLAN OF CAREon 04-02-2020 PLAN OF CARE HNO ID: [id number] Author: Maximiliano Zeng MD Service: Critical Care Author Type: Resident Type: Plan of Care Filed: 04/02/2020 5:00 PM Note Text: Spoke with patient's , Rodrigo, regarding patient's course and plan. Plan for floor today. Questions and concerns addressed. If more, encouraged to call. [facility] PROGRESSon 04-02-2020 PROGRESS HNO ID: [id number] Author: Elian Philip Service: Infectious Disease Author Type: Physician Type: Progress Notes Filed: 04/02/2020 3:00 PM Note Text: INFECTIOUS DISEASE PROGRESS NOTE Patient Name: Brice Gomez Date: 04/02/2020 ASSESSMENT: 1. SARS- CoV- 19 multifocal pneumonia Worsened per the most recent CT chest 2. Acute hypoxic respiratory failure due to # 1 3. Acute transaminitis 4. Normal procalcitonin 5. 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 She was started on PO levofloxacin by per PCP but her symptoms did not improve. She had been on the floor for the last one week and has been having increasing O2 requirement and moved to the ICU henceforth. Over the past 24 hours, she has shown much improvement in her O2 needs and is down to 4 liters via NC. D dimer is noted to be high > 4000 so on high dose lovenox per MICU. With a normal procacitonin and overall improvement in her clinical status, no need for anti bacterial ( doubt there is superimposed HAP) PLAN: 1. Continue with supportive care, O2 2. CRP, sed rate, CRP and D dimers every 48 hours 3. Likely will be sent back back to the floors INTERVAL HISTORY: ROS done with pt/RN and negative unless stated. Afebrile Weaned down to 4 L via NC MEDICATIONS: reviewed. Current Facility-Administered Medications Medication Dose Route Frequency - buPROPion SR 200 mg tab(s) (WELLBUTRIN SR) 200 mg ORAL BID - cholecalciferol 2,000 Units tab(s) (VITAMIN D3) 2,000 Units ORAL DAILY - NaCl 0.9% 3-5 mL 3-5 mL INTRAVENOUS q 12 H - pantoprazole DR 40 mg tab(s) (PROTONIX) 40 mg ORAL DAILY (6 AM) - ascorbic acid (vitamin C) 500 mg tab(s) (VITAMIN C) 500 mg ORAL DAILY - acetaminophen 650 mg tab(s) (TYLENOL) 650 mg ORAL q 6 H PRN - potassium chloride ER 20-40 mEq tab(s) (K-DUR, KLOR-CON) 20-40 mEq ORAL/FEEDING TUBE PRN Or - potassium chloride iv piggyback 20 mEq/100 mL 20 mEq INTRAVENOUS PRN - magnesium sulfate in water 2 g in sterile water 50 ml 2 g INTRAVENOUS PRN - sodium phosphate 45 mmol in NaCl 0.9% 250 mL 45 mmol INTRAVENOUS PRN - calcium gluconate 4 g in NaCl 0.9% 250 mL 4 g INTRAVENOUS PRN - sodium chloride 0.65 % 2 [place] (AYR, OCEAN) 2 [place] EACH NOSTRIL PRN - albuterol HFA 90 mcg/actuation 2 Puff (PROVENTIL HFA, VENTOLIN HFA) 2 Puff INHALATION q 4 H PRN - nystatin 5 mL oral liquid (MYCOSTATIN) 5 mL ORAL QID - enoxaparin 40 mg injection (LOVENOX) 40 mg SUBCUTANEOUS q 12 HR - benzonatate 100 mg cap(s) (TESSALON PERLE) 100 mg ORAL TID PRN - senna-docusate 8.6-50 mg 1 tablet (SENNA-S) 1 tablet ORAL BID PRN PHYSICAL EXAM: Vital signs: BP 112/70 Pulse 110 Temp 36.6 ?C (97.9 ?F) Resp 26 Ht 152.4 cm (5') Wt 66.2 kg (145 lb 15.1 oz) LMP 01/13/2018 SpO2 96% BMI 28.50 kg/m? Temp (24hrs), Av.5 ?C (97.7 ?F), Min:36.1 ?C (97 ?F), Max:36.8 ?C (98.2 ?F) General: alert, oriented, NAD Lungs:fine rales bibasilar ( posteriorly) Heart: regular rate and rhythm Abdomen: soft, non tender, non distended, BS+ Extremities: no swollen joints Skin: no rash IV sites - wnl Lab data: reviewed Recent Labs 04/02/20 0545 04/01/20 0200 03/31/20 0900 03/31/20 0400 WBC 7.08 7.96 -- 8.41 HB 11.1* 10.3* -- 10.8* PLT 467* 375* -- 359 INR -- 0.95 -- -- NA 139 138 -- 140 K 4.1 3.0* -- 3.7 CO2 24 26 -- 26 BUN 13 9 -- 11 CREAT 0.57* 0.53* -- 0.53* AST 46* 81* 154* 163* ALT 127* 165* 203* 198* TBILI 0.3 0.3 0.3 0.2 ALKPHOS 108 110 122 128* CRP 4.3* 9.8* 7.7* 6.3* LACT -- -- <2.0 -- Microbiology data: reviewed Imaging data: reviewed Elian Philip MD, [facility] Infectious Diseases Pager: [phone] [facility] PROGRESS HNO ID: [id number] Author: Morgan Cabrera MD Service: Critical Care Author Type: Resident Type: Progress Notes Filed: 04/02/2020 12:23 PM Note Text: -------- Attestation signed by Dayana James at 04/02/2020 1:21 PM [facility] STAFF PHYSICIAN NOTE OF PERSONAL INVOLVEMENT IN CARE I have reviewed the note obtained and documented by the resident and I personally participated in the lanza components. I have discussed the case and management of the patient's care. Please reference any relevant documentation elsewhere for the corresponding day. Discussed with available caregivers, family, patient. SIGNATURE: Dayana James MD [facility] -------- MICU - PROGRESS NOTE SERVICE DATE: 04/01/2020 SERVICE TIME: 5:57 AM Admission Date: 03/24/2020 AGE: [age] year old LOS: 8 days Subjective HPI: The patient is a 39yo female who was admitted for COVID PNA. Patient was reevaluated by MICU for concern of worsening oxygen demand from L at time of admission to 5L and increased SOB on the floor and concerns of patient not breathing. Patient does endorse continued coughing spells with mild chest pain during the coughs. Endorses feeling hot but denies fever, chills, palpitations, diaphoresis, nausea, vomiting, ABD pain. Speaking in shorter sentences. Requiring AIRVO for adequate oxygenation. Events overnight: - decreased O2 requirements on NC down to 4 L . I/Os -1.3 L - some desaturations with movement - awake, alert -Neg USG DVT -D dimer 4380 (3180) - CRP 4.3 (9.8) Objective PROBLEMS: ACTIVE PROBLEM LIST Allergic Rhinitis Depression Kidney Stones Other Psoriasis Fibroadenoma of Breast Chalazion of Left Lower Eyelid Neck Pain, Bilateral Dyspareunia Vitamin D Deficiency Generalized Anxiety Disorder Exertional Asthma High Myopia, Bilateral Regular Astigmatism, Bilateral S/P Asa/Prk (Advanced Surface Ablation Photorefractive Keratectomy) Covid-19 Virus Infection VITAL SIGNS (last 24hrs min/max): BP 119/77 Pulse 87 Temp (Src) 97.7 (Axillary) Resp 26 Ht 5' 0 (1.52m) Wt 145 lb 15.1 oz (66.2kg) SpO2 98% LMP 01/13/2018 BMI 28.50 kg/(m2). O2 Therapy: Nasal Cannula, Liters: 4, %FIO2: 40 Temp (24hrs), Av.6 ?C (97.9 ?F), Min:36.3 ?C (97.3 ?F), Max:36.8 ?C (98.2 ?F) NET FLUID BALANCE Intake/Output Summary (Last 24 hours) at 04/02/2020 0751 Last data filed at 04/02/2020 0600 Gross per 24 hour Intake ? Output 1350 ml Net -1350 ml Lines, Drains, and Airways Line Peripheral 03/31/20 1635 Right Forearm 20 Gauge 1 day Peripheral 04/01/20 1810 Left Forearm 20 Gauge less than 1 day Drain Drain Straight Cath 06/04/13 0745 14 [place] 2494 days PHYSICAL EXAM PERFORMED: Due to the current efforts to prevent transmission of COVID-19 and also the need to preserve PPE for caregivers, a rlag-yj-chuh encounter with the patient was not performed. That being said, all relevant records and diagnostic tests were reviewed, including laboratory results and imaging. Please reference attending physician documentation for physical exam. Care will be coordinated with the team members. DATA: VENTILATOR INFORMATION: WEANING DATA: Settings: %FIO2: 40 Data: BLOOD GAS: Recent Labs 04/01/20 0205 03/29/20 1900 RESPHCO3 27.1 25.3 PH 7.481* 7.484* PCO2 36.4 34.1* [id number] 95.8* 98.3 CBC: Recent Labs 04/02/2054404/01/20 02003/31/20 04003/29/20 03503/28/20 0503/27/20 0100 WBC 7.08 7.96 8.41 5.75 4.10 5.00 HB 11.1* 10.3* 10.8* 10.9* 11.9 10.9* HCT 33.8* 31.3* 33.2* 33.5* 36.1 33.2* PLT 467* 375* 359 269 221 157* MCV 88.3 87.4 88.5 88.6 87.6 87.6 COAG: Recent Labs 04/01/2019903/31/20 09 APTT 27.4 27.6 INR 0.95 -- BMP: Recent Labs 04/02/2054404/01/2019903/31/20 04003/30/20 1030 03/29/2035503/28/20 0503/27/20 0100 GLUC 90 132* 95 108* 100* 92 110* NA 139 138 140 140 141 141 139 K 4.1 3.0* 3.7 3.3* 3.4* 3.1* 3.1* CHLOR 104 100 101 100 103 102 104 CO2 24 26 26 26 25 25 21* ANION 11 12 13 14 13 14 14 BUN 13 9 11 11 15 12 8 CREAT 0.57* 0.53* 0.53* 0.51* 0.56* 0.58 0.58 CHEM: Recent Labs 04/02/2054404/01/20 0200 03/31/20 0903/31/20 04003/30/20 1030 03/29/2035503/28/20 0503/27/20 0100 ALB 3.3* 3.1* 3.4* 3.2* 3.3* 3.3* 3.5* 3.2* TPROT 6.6 6.2* 6.6 6.5 6.4 6.4 6.8 6.3 CA 8.9 8.4* -- 8.9 9.0 9.0 8.9 8.4* MG -- 2.1 1.9 -- 2.0 2.0 2.0 1.8 HEPATIC: Recent Labs 04/02/20 0545 04/01/20 0200 03/31/20 0900 03/31/20 0400 03/30/20 1030 03/29/20 0356 03/28/20 0525 03/27/20 0100 ALKPHOS 108 110 122 128* 118 105 96 74 ALT 127* 165* 203* 198* 182* 184* 117* 31 AST 46* 81* 154* 163* 134* 189* 164* 50* TBILI 0.3 0.3 0.3 0.2 0.3 0.2 0.2 0.2 URINALYSIS: Recent Labs 04/01/20 0205 03/29/20 1900 PH 7.481* 7.484* CARDIAC: Recent Labs 04/01/20 0200 03/31/20 0900 CKMBP -- SEE BELOW PBNP 55 100 IMPRESSION: #Acute hypoxemic respiratory failure 2/2 COVID-19 PNA #?Secondary bacterial PNA #Asthma #Acute transaminitis #Hypokalemia #Hypophosphatemia #CRP - slightly elevated #PCN allergy, ?Hali's PLAN: Neurologic - PRN ativan for anxiety - cont to monitor mental status Pulmonary - ON NC 4L - albuterol PRN - monitor carefully, low threshold for intubation if necessary - COVID+ -d/c CRP, continue D dimer Cardiovascular - US DVT B/L LE negative - Sinus tachycardia 100s - high intensity DVT ppx GI/Metabolic/Nutrition - protonix daily - regular diet Hematologic/Infectious Disease - ID on board, appreciate inputs -Low procal, monitor off antibiotics - stopped aztreonam and vancomycin - CRP trended down, check CRP, ferritin tomorrow - PRN tylenol for fever - blood cx negative (03/25) - COVID+ (03/25) - fever control with PRN tylenol Endocrinology - monitor BG Musculoskeletal - continue to monitor - encourage OOB to chair SIGNATURE: Maximiliano Zeng MD PATIENT NAME: Brice Gomez DATE: April 02, 2020 TIME: 5:57 AM PAGER: [phone] [facility] PROGRESS HNO ID: [id number] Author: Dayana James Service: Pulmonary Disease Author Type: Physician Type: Progress Notes Filed: 04/02/2020 12:25 PM Note Text: Please link this note to the resident's note completed on April 02, 2020 PATIENT NAME: Brice Gomez Impression/Recommendatio ns [facility] STAFF PHYSICIAN NOTE OF PERSONAL INVOLVEMENT IN CARE I have reviewed the note obtained and documented by the resident and I personally participated in the lanza components. I have discussed the case and management of the patient's care. The following comments revise or confirm relevant lanza components of the note. I have personally seen and examined the patient. Data: All data reviewed. All diagnostic tests, including labs/culture data/specimens and imaging, were personally reviewed by me. My additional comments noted below, including in the assessment/plan. All medications and vitals reviewed. SIg improvement in oxygenation requirements now off Airvo on 4L nc Net neg 1.3 L D-dimer uptrending No new fevers, WBC stable Appetite better. Still coughing- dry. No pain VITAL SIGNS: Pain Level: 0 BP 109/73 Pulse 112 Temp (Src) 97.9 (Axillary) Resp 24 Ht 5' 0 (1.52m) Wt 145 lb 15.1 oz (66.2kg) SpO2 90% LMP 01/13/2018 BMI 28.50 kg/(m2). O2 Therapy: Nasal Cannula, Liters: 4 Temp (24hrs), Av.4 ?C (97.6 ?F), Min:36.1 ?C (97 ?F), Max:36.8 ?C (98.2 ?F) Vitals: Reviewed as above. GENERAL: AAOx3, pleasant, resting in bed, NAD, follows simple commands, intermittent coughing RESPIRATORY: Crackles scattered, mainly at bases. No wheezes. Respirations are even AND unlabored at rest. No accessory muscle use, pursed lip breathing or conversational dyspnea. Patient is on 4L nc CARDIOVASCULAR: Normal S1S2, RRR. No edema. Peripheral pulses present. GI: Abdomen soft, nondistended, nontender, bowel sounds present EXTREMITIES: No clubbing or cyanosis or mottling. Moves all extremities SKIN: No rash IMPRESSION/PLAN: Critical Care Documentation: The patient has the following organ/system impairment(s): ? 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 PLAN: - Monitor on nc, if stable, will transfer today - Autoregulation for now since net neg - ID consult appreciated- stable off Abx since low procal, continue to monitor off Abx - D/c CRPs and TGs - Trend d-dimer since increasing - Fever control w/ tylenol, avoiding NSAIDs - Replete lytes prn - Albuterol prn MDI - d/c prn ativan and oxycodone IR since not requiring - OOB to chair - encourge po intake - High dose lovenox given d-dimer >3000 Code Status: Full Discussed with staff. Additionally, discussed with - Multi-disciplinary rounds performed with RN, PharmD, Resident(s) SIGNATURE: Dayana James MD [facility] Department of Pulmonary and Critical Care Medicine SERVICE DATE: April 02, 2020 SERVICE TIME: 12:22 PM [facility] CASE MANAGEMon 04-01-2020 CASE MANAGEM HNO ID: [id number] Author: Amaya Alonzo) DON Hairston Service: Care Management Author Type: Registered Nurse Type: Care Mgt Progress Note Filed: 04/01/2020 11:48 AM Note Text: CARE MANAGEMENT PROGRESS NOTE SERVICE DATE: 04/01/2020 SERVICE TIME: 11:46 AM LOS: 7 days Needs Prior to Discharge: To Be Determined Pt moved to micu from 9100 03/31 Chart reviewed and spoke with RN for pt Decreased fio2 on airvo this am and per nsg ambulating well , less anxious and with good strength Reports she is an ER Nurse at [employer] and anticipates return to home. I offered to call and update spouse but RN has already Will follow for transitional needs. SIGNATURE: Amaya Hairston RN PATIENT NAME: Brice Gomez DATE: April 01, 2020 TIME: 11:46 AM PAGER/CONTACT #: [phone] [facility] CONSULT PROGon 04-01-2020 CONSULT PROG HNO ID: [id number] Author: Roya Jaquez (Pharmacist) Service: Pharmacy Author Type: Pharmacist Type: Consult Progress Note Filed: 04/01/2020 10:50 AM Note Text: PHARMACY VANCOMYCIN DOSING NOTE Patient Name: Brice Gomez Admission Date: 03/24/2020 Date of Consult: 04/01/2020 Time of Consult: 10:50 AM The ID service has discontinued vancomycin therapy. Pharmacy vancomycin dosing service will sign off. Thank you for allowing us to participate in this patient's care. Please contact pharmacy if questions. ROYA JAQUEZ, PHARMACIST [facility] PLAN OF CAREon 04-01-2020 PLAN OF CARE HNO ID: [id number] Author: Maximiliano Zeng MD Service: Critical Care Author Type: Resident Type: Plan of Care Filed: 04/01/2020 5:37 PM Note Text: Spoke to the patient's , Rodrigo Gomez, regarding the patient's course and plan. Questions were answered. If further questions/concerns, will contact us. Plan to speak again tomorrow early afternoon. [facility] PROGRESSon 04-01-2020 PROGRESS HNO ID: [id number] Author: Elian Philip Service: Infectious Disease Author Type: Physician Type: Progress Notes Filed: 04/01/2020 5:26 PM Note Text: INFECTIOUS DISEASE PROGRESS NOTE Patient Name: Brice Gomez Date: 04/01/2020 ASSESSMENT: 1. SARS- CoV- 19 multifocal pneumonia Worsened per the most recent CT chest 2. Acute hypoxic respiratory failure due to # 1 3. Acute transaminitis 4. Normal procalcitonin 5. 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 She was started on PO levofloxacin by per PCP but her symptoms did not improve. She had been on the floor for the last one week and has been having increasing O2 requirements. Upon review of her markers of inflammation, she has a ferritin level of < 400. One would be expect it to be much higher given the severity of her symptoms. CRP, LD and D dimer are also modestly elevated. A procalcitonin level is 0.07. CXR is noted for bilateral infiltrates in the mid to the lower lung zones which have worsened since admission. Her presentation is consistent with severe SARS-CoV- 19 pneumonia. However, patient also has severe anxiety and sinus congestion leading to troubled breathing. Since she has been in the ICU, she reports slight symptomatic improvement. Remains on dev flow O2 therapy via AirVo. Given low procalcitonin, watch her off of antibiotics. Ferritin continues to trend down @ 238 ng/ml today. PLAN: 1. Supportive care as per ICU 2. Watch off antibiotics as low suspicion for her having bacterial pneumonia 3. Negative nasal MRSA screen INTERVAL HISTORY: ROS done with pt/RN and negative unless stated. On high flow O2 via AirVo FiO2 40 % / 8 liters Tells me she had a good hearty breakfast MEDICATIONS: reviewed. Current Facility-Administered Medications Medication Dose Route Frequency - buPROPion SR 200 mg tab(s) (WELLBUTRIN SR) 200 mg ORAL BID - cholecalciferol 2,000 Units tab(s) (VITAMIN D3) 2,000 Units ORAL DAILY - NaCl 0.9% 3-5 mL 3-5 mL INTRAVENOUS q 12 H - pantoprazole DR 40 mg tab(s) (PROTONIX) 40 mg ORAL DAILY (6 AM) - ascorbic acid (vitamin C) 500 mg tab(s) (VITAMIN C) 500 mg ORAL DAILY - acetaminophen 650 mg tab(s) (TYLENOL) 650 mg ORAL q 6 H PRN - potassium chloride ER 20-40 mEq tab(s) (K-DUR, KLOR-CON) 20-40 mEq ORAL/FEEDING TUBE PRN Or - potassium chloride iv piggyback 20 mEq/100 mL 20 mEq INTRAVENOUS PRN - magnesium sulfate in water 2 g in sterile water 50 ml 2 g INTRAVENOUS PRN - sodium phosphate 45 mmol in NaCl 0.9% 250 mL 45 mmol INTRAVENOUS PRN - calcium gluconate 4 g in NaCl 0.9% 250 mL 4 g INTRAVENOUS PRN - sodium chloride 0.65 % 2 [place] (AYR, OCEAN) 2 [place] EACH NOSTRIL PRN - albuterol HFA 90 mcg/actuation 2 Puff (PROVENTIL HFA, VENTOLIN HFA) 2 Puff INHALATION q 4 H PRN - oxyCODONE IR 5 mg tab(s) (ROXICODONE) 5 mg ORAL q 4 H PRN - senna-docusate 8.6-50 mg 1 tablet (SENNA-S) 1 tablet ORAL BID - bisacodyl 10 mg suppository (DULCOLAX) 10 mg RECTAL DAILY PRN - magnesium hydroxide 400 mg/5 mL 30 mL (MOM) 30 mL ORAL DAILY PRN - LORazepam 0.5 mg tab(s) (ATIVAN) 0.5 mg ORAL BID PRN - nystatin 5 mL oral liquid (MYCOSTATIN) 5 mL ORAL QID - enoxaparin 40 mg injection (LOVENOX) 40 mg SUBCUTANEOUS q 12 HR - benzonatate 100 mg cap(s) (TESSALON PERLE) 100 mg ORAL TID PRN PHYSICAL EXAM: Vital signs: BP 90/57 Pulse 92 Temp 36.8 ?C (98.2 ?F) Resp 20 Ht 152.4 cm (5') Wt 63.3 kg (139 lb 8.8 oz) LMP 01/13/2018 SpO2 96% BMI 27.25 kg/m? Temp (24hrs), Av.9 ?C (98.5 ?F), Min:36.4 ?C (97.5 ?F), Max:37.5 ?C (99.5 ?F) General: alert, oriented, NAD, less anxious Lungs: fine bibasilar rales Heart: regular rate and rhythm Abdomen: soft, non tender, non distended, BS+ Extremities: no swollen joints Skin: no rash IV sites - wnl Lab data: reviewed Recent Labs 04/01/20 0200 03/31/20 0900 03/31/20 0400 03/30/20 1030 WBC 7.96 -- 8.41 -- HB 10.3* -- 10.8* -- PLT 375* -- 359 -- INR 0.95 -- -- -- NA 138 -- 140 140 K 3.0* -- 3.7 3.3* CO2 26 -- 26 26 BUN 9 -- 11 11 CREAT 0.53* -- 0.53* 0.51* AST 81* 154* 163* 134* ALT 165* 203* 198* 182* TBILI 0.3 0.3 0.2 0.3 ALKPHOS 110 122 128* 118 CRP 9.8* 7.7* 6.3* -- LACT -- <2.0 -- -- Microbiology data: reviewed Nasal MRSA screen pending Blood cx 5/6 negative 5/6 strep pneumoniae antigen negative 5/6 COVID 19 PCr + Imaging data: reviewed Elian Philip MD, [facility] Infectious Diseases Pager: [phone] [facility] PROGRESS HNO ID: [id number] Author: Dayana James Service: Pulmonary Disease Author Type: Physician Type: Progress Notes Filed: 04/02/2020 7:48 AM Note Text: Please link this note to the resident's note completed on April 01, 2020 PATIENT NAME: Brice Gomez Impression/Recommendatio ns [facility] STAFF PHYSICIAN NOTE OF PERSONAL INVOLVEMENT IN CARE I have reviewed the note obtained and documented by the resident and I personally participated in the lanza components. I have discussed the case and management of the patient's care. The following comments revise or confirm relevant lanza components of the note. I have personally seen and examined the patient. Data: All data reviewed. All diagnostic tests, including labs/culture data/specimens and imaging, were personally reviewed by me. My additional comments noted below, including in the assessment/plan. All medications and vitals reviewed. Still on Airvo 30 HFNC now on 45%, decreasing Able to get to commode w/ very mild desat 87% Awake, following commands No fevers Poor po intake Mild nausea 1 time ativan use IMPRESSION/PLAN: Critical Care Documentation: The patient has the following organ/system impairment(s): ? 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 PLAN: - Wean Airvo as tolerated to FiO2 >90% - Trial very gentle diuresis after adequate K repletion, will given 10mg IV once to maintain even to neg volume status - ID consult appreciated- on Aztreonam and Vanc; will consider de-escalation since procalcitonin low. Defer to ID for now - F/U MRSA nares - Trend CRP, will d/c ferritin since downtrending - Trend d-dimer - Fever control w/ tylenol, avoiding NSAIDs - Replete lytes - Albuterol prn MDI - F/U IL-6 level though doubt role as not intubated and further in course, also ferritin <400 - ABG in AM only if worsening O2 requirements - prn ativan for anxiety - OOB to chair - encourge po intake - Increase to high dose lovenox given d-dimer >3000; order LE dopplars, will also plan for bedside POCUS for DVT evaluation in there interim Code Status: Full This patient has a high probability of sudden, clinically significant deterioration, which requires the highest level of physician preparedness to intervene urgently. I managed/supervised life or organ supporting interventions that required frequent physician assessment. I devoted my full attention to the direct care of this patient for the amount of time indicated below. Time I spent with family or surrogate(s) is included only if the patient was incapable of providing the necessary information or participating in medical decision making. Time devoted to teaching and to any procedures I billed separately is not included. Family has been updated by ICU team. Discussed with staff. Additionally, discussed with - Multi-disciplinary rounds performed with RN, PharmD, Resident(s) Time spent providing critical care services: 35 minutes, excluding procedures. SIGNATURE: Dayana James MD [facility] Department of Pulmonary and Critical Care Medicine SERVICE DATE: April 01, 2020 SERVICE TIME: 9:20 AM [facility] PROGRESS HNO ID: [id number] Author: Maximiliano Zeng MD Service: Critical Care Author Type: Resident Type: Progress Notes Filed: 04/01/2020 2:18 PM Note Text: -------- Attestation signed by Dayana James at 04/02/2020 1:21 PM [facility] STAFF PHYSICIAN NOTE OF PERSONAL INVOLVEMENT IN CARE I have reviewed the note obtained and documented by the resident and I personally participated in the lanza components. I have discussed the case and management of the patient's care. Please reference any relevant documentation elsewhere for the corresponding day. Discussed with available caregivers, family, patient. SIGNATURE: Dayana James MD [facility] -------- MICU - PROGRESS NOTE SERVICE DATE: 04/01/2020 SERVICE TIME: 5:57 AM Admission Date: 03/24/2020 AGE: [age] year old LOS: 7 days Subjective HPI: The patient is a 39yo female who was admitted for COVID PNA. Patient was reevaluated by MICU for concern of worsening oxygen demand from L at time of admission to 5L and increased SOB on the floor and concerns of patient not breathing. Patient does endorse continued coughing spells with mild chest pain during the coughs. Endorses feeling hot but denies fever, chills, palpitations, diaphoresis, nausea, vomiting, ABD pain. Speaking in shorter sentences. Requiring AIRVO for adequate oxygenation. Events overnight: - decreased O2 requirements on AIRVO, down to 30L on 45% - some desaturations with movement - awake, following commands - decreased PO intake, low appetite - 1 use PRN ativan - ferritin, TG downtrending - CRP 7.7 > 9.8 - dimer 1620 > 3180 - otherwise, no acute events overnight Objective PROBLEMS: ACTIVE PROBLEM LIST Allergic Rhinitis Depression Kidney Stones Other Psoriasis Fibroadenoma of Breast Chalazion of Left Lower Eyelid Neck Pain, Bilateral Dyspareunia Vitamin D Deficiency Generalized Anxiety Disorder Exertional Asthma High Myopia, Bilateral Regular Astigmatism, Bilateral 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 O2 Therapy: Hi-Flow, Liters: 8, %FIO2: (S) 40 Temp (24hrs), Av ?C (98.6 ?F), Min:36.4 ?C (97.5 ?F), Max:37.6 ?C (99.7 ?F) NET FLUID BALANCE Intake/Output Summary (Last 24 hours) at 04/01/2020 1418 Last data filed at 04/01/2020 0807 Gross per 24 hour Intake 790 ml Output 1650 ml Net -860 ml Lines, Drains, and Airways Line Peripheral 03/27/20 0649 Assessment Short Left Hand 22 Gauge 5 days Peripheral 03/31/20 1635 Right Forearm 20 Gauge less than 1 day Drain Drain Straight Cath 06/04/13 0745 14 [place] 2493 days PHYSICAL EXAM PERFORMED: Due to the current efforts to prevent transmission of COVID-19 and also the need to preserve PPE for caregivers, a iypd-xh-ygun encounter with the patient was not performed. That being said, all relevant records and diagnostic tests were reviewed, including laboratory results and imaging. Please reference attending physician documentation for physical exam. Care will be coordinated with the team members. DATA: VENTILATOR INFORMATION: WEANING DATA: Settings: %FIO2: (S) 40 Data: BLOOD GAS: Recent Labs 04/01/2020403/29/20 1900 RESPHCO3 27.1 25.3 PH 7.481* 7.484* PCO2 36.4 34.1* C5SXFRAY 95.8* 98.3 CBC: Recent Labs 04/01/2019903/31/20 0400 03/29/20 0356 03/28/20 0525 03/27/20 01003/26/20 0429 WBC 7.96 8.41 5.75 4.10 5.00 3.87* HB 10.3* 10.8* 10.9* 11.9 10.9* 11.3 HCT 31.3* 33.2* 33.5* 36.1 33.2* 34.0* PLT 375* 359 269 221 157* 126* MCV 87.4 88.5 88.6 87.6 87.6 89.5 COAG: Recent Labs 04/01/2019903/31/20 0900 APTT 27.4 27.6 INR 0.95 -- BMP: Recent Labs 04/01/2019903/31/20 0400 03/30/20 1030 03/29/20 0356 03/28/20 0525 03/27/20 01003/26/20 0429 GLUC 132* 95 108* 100* 92 110* 107* NA 138 140 140 141 141 139 137 K 3.0* 3.7 3.3* 3.4* 3.1* 3.1* 3.5* CHLOR 100 101 100 103 102 104 103 CO2 26 26 26 25 25 21* 22 ANION 12 13 14 13 14 14 12 BUN 9 11 11 15 12 8 5* CREAT 0.53* 0.53* 0.51* 0.56* 0.58 0.58 0.60 CHEM: Recent Labs 04/01/20 02003/31/20 0900 03/31/20 0400 03/30/20 1030 03/29/20 0356 03/28/20 0525 03/27/20 01003/26/20 0429 ALB 3.1* 3.4* 3.2* 3.3* 3.3* 3.5* 3.2* 3.3* TPROT 6.2* 6.6 6.5 6.4 6.4 6.8 6.3 6.2* CA 8.4* -- 8.9 9.0 9.0 8.9 8.4* 8.3* MG 2.1 1.9 -- 2.0 2.0 2.0 1.8 1.8 HEPATIC: Recent Labs 04/01/20 0200 03/31/20 0900 03/31/20 0400 03/30/20 1030 03/29/20 0356 03/28/20 0503/27/20 01003/26/20 0429 ALKPHOS 110 122 128* 118 105 96 74 70 ALT 165* 203* 198* 182* 184* 117* 31 15 AST 81* 154* 163* 134* 189* 164* 50* see below TBILI 0.3 0.3 0.2 0.3 0.2 0.2 0.2 0.2 URINALYSIS: Recent Labs 04/01/20 0205 03/29/20 1900 PH 7.481* 7.484* CARDIAC: Recent Labs 04/01/20 02003/31/20 0900 CKMBP -- SEE BELOW PBNP 55 100 IMPRESSION: #Acute hypoxemic respiratory failure 2/2 COVID-19 PNA #?Secondary bacterial PNA #Asthma #Acute transaminitis #Hypokalemia #Hypophosphatemia #CRP - slightly elevated #PCN allergy, ?Hali's PLAN: Neurologic - PRN ativan for anxiety - cont to monitor mental status Pulmonary - wean AIRVO as tolerated goal FiO2 >90 - albuterol PRN - monitor carefully, low threshold for intubation if necessary - COVID+ Cardiovascular - US DVT B/L LE given increased dimer to assess for clots - high intensity DVT ppx Renal/Fluids/Electrolyte s - 60mEq potassium repleted, will replete 40mEq further prior to Lasix - Lasix 10mg IV this morning, goal out > in GI/Metabolic/Nutrition - protonix daily - regular diet Hematologic/Infectious Disease - ID on board, appreciate inputs - IL-6 31.4, however not meeting parameters for toci at this time - stopped aztreonam and vancomycin - CRP increased, trend daily - ferritin downtrending, stop trend - TG changed to q2d - f/u IL-6 - PRN tylenol for fever - Nasal MRSA pending - blood cx negative (03/25) - COVID+ (03/25) - fever control with PRN tylenol Endocrinology - monitor BG Musculoskeletal - continue to monitor - encourage OOB to chair SIGNATURE: Maximiliano Zeng MD PATIENT NAME: Brice Gomez DATE: April 01, 2020 TIME: 5:57 AM PAGER: [phone] [facility] CONSULT PROGon 03-31-2020 CONSULT PROG HNO ID: [id number] Author: Nona Yeager (Pharmacist) Service: Pharmacy Author Type: Pharmacist Type: Consult Progress Note Filed: 03/31/2020 9:13 AM Note Text: PHARMACY VANCOMYCIN DOSING NOTE Patient Name: Brice Gomez Admission Date: 03/24/2020 Date of Consult: 03/31/2020 Time of Consult: 9:11 AM Indication: Pneumonia Goal Range: 10-20 mcg/mL (will target 15-20 range given indication) RECOMMENDATIONS/PLAN: Pharmacy consulted for vancomycin dosing for Brice Gomez, a 39 year old, female who is being treated with vancomycin for PNA 1. Patient is currently ordered Vancomycin 1 g IV q12h. Today is day 1 of therapy. 2. No vancomycin level has been drawn for this dosing regimen. 3. The present dose of vancomycin is the recommended dosage for this patient at this time. Continue therapy as prescribed. 4. The next vancomycin level will be ordered for 04/02/20 @0900, one hour prior to the 5th dose unless clinically indicated sooner. (Pharmacy will order) We will follow patient renal function, vancomycin levels and doses with you during the course of therapy. Additional recommendations will appear in follow up notes. If you have any questions, please contact pharmacy at ext [phone]. Age: [age] year old Allergies: ALLERGIES Allergen Reactions - Bee Sting Hives Facial edema - Biaxin [Clarithromy* Rash Patient developed a pruritic rash 7 days into course of biaxin and flagyl for H pylori infection. No mucous membrane involvement, exfoliation, fevers or joint pain/swelling. - Celexa [Citalopram] GI Upset - Entex [Phenylephrin* Intolerance Tachycardia - Flagyl [Metronidazo* Rash Patient developed a pruritic rash 7 days into course of biaxin and flagyl for H pylori infection. No mucous membrane involvement, exfoliation, fevers or joint pain/swelling. - Keflex [Cephalexin] Rash - Minocycline Hives - Penicillins Rash, Itching Vishnu Darrick type reaction. Last 3 Encounter Wt Readings: Date: Wt: 03/24/2020 63.1 kg (139 lb 1.8 oz) 09/04/2019 64.4 kg (142 lb) 06/03/2019 64.4 kg (142 lb) Last 1 Encounter Ht Readings: Date: Ht: 03/24/2020 152.4 cm (5') CrCl: >100 mL/min Temp (24hrs), Av.2 ?C (99 ?F), Min:36.9 ?C (98.4 ?F), Max:37.5 ?C (99.5 ?F) - Current Temp: 37.4 ?C (99.3 ?F) Labs BUN (mg/dL) Date Value 03/31/2020 11 03/30/2020 11 03/29/2020 15 Creatinine (mg/dL) Date Value 03/31/2020 0.53 (L) 03/30/2020 0.51 (L) 03/29/2020 0.56 (L) WBC (thou/cmm) Date Value 03/31/2020 8.41 03/29/2020 5.75 03/28/2020 4.10 Vancomycin Levels: No results found for: PRISCA YEAGER, PHARMACIST Ext: [phone] [facility] HISTORY PHYSICALon 0 HISTORY PHYSICAL HNO ID: [id number] Author: Maximiliano Santiago Jr. Service: Critical Care Author Type: Physician Type: HANDP Filed: 03/31/2020 7:37 AM Note Text: MICU CONSULT HANDP CRITICAL CARE CONSULT NOTE SERVICE DATE: 03/30/2020 SERVICE TIME: 2:38 PM REASON FOR CONSULT: Worsening oxygen demand REQUESTING PHYSICIAN: Dr Hannon ADMITTING PROVIDER: Stella Lynn SERVICE DATE: 03/30/2020 SERVICE TIME: 2:38 PM Admission Date: 03/24/2020 AGE: [age] year old LOS: 6 days Subjective HISTORY OF PRESENT ILLNESS: Brice Gomez is a 39 year old individual being reevaluated by MICU for concern for worsening oxygen demand. Patient is currently admitted to a regular nursing floor for Covid pneumonia with today being day 15 of illness and day 11 since diagnosis. The patient states she feels worse today than she did yesterday. The primary team consulted ICU to evaluate the patient for concern for worsening oxygen demand as the patient has been had increase in oxygen levels from 2 L at time of initial admission to 5 L yesterday and called this am for increasing shortness of breath with exertion and complaints of not breathing . The patient endorses continued coughing spells with mild chest pain during the coughs. She however denies fevers, chills, dyspnea, shortness of breath, palpitations, diaphoresis, nausea, vomiting or abdominal pain. Of note the patient was noted to be speaking in short sentences this am which is a decline from yesterday. PROBLEMS: ACTIVE PROBLEM LIST Allergic Rhinitis Depression Kidney Stones Other Psoriasis Fibroadenoma of Breast Chalazion of Left Lower Eyelid Neck Pain, Bilateral Dyspareunia Vitamin D Deficiency Generalized Anxiety Disorder Exertional Asthma High Myopia, Bilateral Regular Astigmatism, Bilateral S/P Asa/Prk (Advanced Surface Ablation Photorefractive Keratectomy) Covid-19 Virus Infection PAST MEDICAL HISTORY Diagnosis Date - Abnormal uterine bleeding 01/31/2013 - Allergic rhinitis, cause unspecified Allergic rhinitis - Depression - Fibrosclerosis of breast - H. pylori infection - Low HDL (under 40) - Migraines - Neck pain, musculoskeletal - FLORENTINO (obstructive sleep apnea) 08/2016 - PMH - PAST MEDICAL HISTORY OF IUD - PMH - PAST MEDICAL HISTORY OF EPISODES OF TACCHYCARDIA DURING - Reactive airway disease - Severe pre-eclampsia, condition or complication Driver general hospitalization - Stone, kidney x2 - Vitamin D deficiency PAST SURGICAL HISTORY Procedure Laterality Date - BREAST ASPIRATION fibroadenoma removal left breast - EYE SURG ANT SGMT PROC UNLISTED Bilateral 01/05/2018 PRK (Photorefractive Keratectomy) - HYSTEROSCOPY WBX WWO D AND C ANDOR POLYPECTOMY 05/2013 polyp - IR BASKET STONE EXTRACTION 2009 - LIGATE FALLOPIAN TUBE Tubal ligation - PAST SURGICAL HISTORY OF x2 - PAST SURGICAL HISTORY OF wisdom teeth - PAST SURGICAL HISTORY OF 05/19/[address] Raoul MOLINAOTACTWILLIE GUIDE BREAST BX 10/01/12 u/s guidance of left breast Social History Tobacco Use - Smoking status: Never Smoker - Smokeless tobacco: Never Used Substance Use Topics - Alcohol use: Yes Comment: Rarely - Drug use: No PAST MEDICAL HISTORY: PAST MEDICAL HISTORY Diagnosis Date - Abnormal uterine bleeding 01/31/2013 - Allergic rhinitis, cause unspecified Allergic rhinitis - Depression - Fibrosclerosis of breast - H. pylori infection - Low HDL (under 40) - Migraines - Neck pain, musculoskeletal - FLORENTINO (obstructive sleep apnea) 08/2016 - PMH - PAST MEDICAL HISTORY OF IUD - PMH - PAST MEDICAL HISTORY OF EPISODES OF TACCHYCARDIA DURING - Reactive airway disease - Severe pre-eclampsia, condition or complication Driver general hospitalization - Stone, kidney x2 - Vitamin D deficiency SURGICAL HISTORY: PAST SURGICAL HISTORY Procedure Laterality Date - BREAST ASPIRATION fibroadenoma removal left breast - EYE SURG ANT SGMT PROC UNLISTED Bilateral 01/05/2018 PRK (Photorefractive Keratectomy) - HYSTEROSCOPY WBX WWO D AND C ANDOR POLYPECTOMY 05/2013 polyp - IR BASKET STONE EXTRACTION 2009 - LIGATE FALLOPIAN TUBE Tubal ligation - PAST SURGICAL HISTORY OF x2 - PAST SURGICAL HISTORY OF wisdom teeth - PAST SURGICAL HISTORY OF 05/19/[address] Raoul TRUONG GUIDE BREAST BX 10/01/12 u/s guidance of left breast SOCIAL HISTORY: Social History Tobacco Use - Smoking status: Never Smoker - Smokeless tobacco: Never Used Substance Use Topics - Alcohol use: Yes Comment: Rarely - Drug use: No FAMILY HISTORY: FAMILY HISTORY Problem Relation Age of Onset - Allergies Mother - Headache Mother migraine headaches - other (mononucleosis) Mother - other (Fibromyalgia) Mother - Alcohol/Drug Father - Hypertension Maternal Grandmother - Osteoporosis Maternal Grandmother - Cancer Maternal Grandfather colon, hx of tobacco/alcohol abuse - Osteoporosis Paternal Grandmother - other (rheumatoid arthritis) Paternal Grandmother - Cancer Paternal Grandfather esophogeal cancer, hx of tobacco/alcohol abuse - Diabetes Paternal Grandfather - Allergies Sister - Allergies Brother - other (Pineal tumor) Brother Also tremors. - other (rheumatoid arhtritis) Paternal Aunt - No Ocular Disease No Family History MEDICATIONS: levoFLOXacin (LEVAQUIN) 500 mg tablet Take 1 tablet by mouth once daily for 10 days. albuterol HFA (PROAIR HFA) 90 mcg/actuation inhaler Inhale 2 Puffs as instructed every 4 hours as needed. buPROPion HCl (WELLBUTRIN SR) 200 mg 12 hr tablet Take 1 tablet by mouth twice daily. hyoscyamine sublingual (LEVSIN SL) 0.125 mg subl Take 1-2 tablets under tongue every 4hrs as needed. Max 12 tabs per day. dexamethasone 0.1% 0.1 % ophthalmic solution 1 Drop twice daily as needed (bilateral ears for itching/rash). omeprazole (PRILOSEC) 20 mg capsule TAKE 1 CAPSULE BY MOUTH DAILY BEFORE BREAKFAST. 1/2 HR BEFORE MEAL. cholecalciferol (VITAMIN D-3) 2,000 unit tablet Take 2,000 Units by mouth once daily. cyclobenzaprine (FLEXERIL) 10 mg tablet Take 1 tablet by mouth every 8 hours as needed. dicyclomine (BENTYL) 10 mg capsule Take 1 capsule by mouth before meals and at bedtime. Cetirizine (ZYRTEC) 10 mg cap Take by mouth. EPINEPHrine 0.3 mg/0.3 mL (1:1,000) atIn Inject 0.3 mL subcutaneously as needed. Then seek medical attention immediately. multivitamins(DAILY MULTIVITAMIN TAB) Take one(1) tablet daily. White Petrolatum-Mineral Oil (PURALUBE) 85-15 % oint Use 0.5 Inches in both eyes daily at bedtime. LACTOBACILLUS COMBO NO.6 (PROBIOTIC COMPLEX ORAL) Take by mouth. ALLERGIES: ALLERGIES Allergen Reactions - Bee Sting Hives Facial edema - Biaxin [Clarithromy* Rash Patient developed a pruritic rash 7 days into course of biaxin and flagyl for H pylori infection. No mucous membrane involvement, exfoliation, fevers or joint pain/swelling. - Celexa [Citalopram] GI Upset - Entex [Phenylephrin* Intolerance Tachycardia - Flagyl [Metronidazo* Rash Patient developed a pruritic rash 7 days into course of biaxin and flagyl for H pylori infection. No mucous membrane involvement, exfoliation, fevers or joint pain/swelling. - Keflex [Cephalexin] Rash - Minocycline Hives - Penicillins Rash, Itching Vishnu Darrick type reaction. REVIEW OF SYSTEMS GENERAL: Endorses malaise but No weight loss, or fevers. HEENT: Negative for frequent or significant headaches, No changes in hearing or vision, no nose bleeds or other nasal problems NECK: Negative for pain and significant neck swelling RESPIRATORY: see HPI. CARDIOVASCULAR: Negative for chest pain, leg swelling or palpitations. GI: no nausea, vomiting, or diarrhea : No history of dysuria, frequency or incontinence. Objective PHYSICAL EXAM PHYSICAL EXAMINATION: BP 130/90 Pulse (!) 130 Temp 37.5 ?C (99.5 ?F) (Oral) Resp 20 Ht 152.4 cm (5') Wt 64.9 kg (143 lb 1.3 oz) LMP 01/13/2018 SpO2 94% BMI 27.94 kg/m? Body mass index is 27.94 kg/m?. OXYGEN: General appearance: Well appearing, alert, in no acute distress, well-hydrated, well nourished. Skin: Skin color, texture, turgor normal, no suspicious rashes or lesions Head: normocephalic, no masses, lesions, tenderness or abnormalities Eyes: Anicteric sclera. Extraocular movements are intact. Oropharynx: Lips, mucosa, and tongue normal, teeth and gums normal, oropharynx normal Neck: Supple Back: Normal exam Lungs: Lungs diminished in all lung bartholomew. No wheezing, rhonchi, rales Heart: RRR without murmur, gallop, or rubs. No ectopy Abdomen: Normal abdominal exam, Abdomen soft, non-tender. Bowel sounds normal. No masses, organomegaly Extremities: No deformities, edema, skin discoloration, clubbing or cyanosis. Neuro: Sensation and motor function grossly intact. DATA REVIEW CBC, Coags, BMP, Mg, Phos Recent Labs 03/31/20 0400 03/30/20 1030 03/29/20 0356 WBC 8.41 -- 5.75 HB 10.8* -- 10.9* HCT 33.2* -- 33.5* PLT 359 -- 269 NA 140 140 141 K 3.7 3.3* 3.4* CHLOR 101 100 103 CO2 26 26 25 BUN 11 11 15 CREAT 0.53* 0.51* 0.56* GLUC 95 108* 100* CA 8.9 9.0 9.0 MG -- 2.0 2.0 Liver Function, Amylase, AND Lipase Recent Labs 03/31/20 0400 03/30/20 1030 03/29/20 0356 TPROT 6.5 6.4 6.4 ALB 3.2* 3.3* 3.3* ALT 198* 182* 184* AST 163* 134* 189* ALKPHOS 128* 118 105 TBILI 0.2 0.3 0.2 Cardiac Enzymes ABGs Recent Labs 03/29/20 1900 PH 7.484* PCO2 34.1* PO2 101.0 BE 2.5 Supplemental Oxygen: Yes.5L NC Imaging CT CHEST W IVCON PE Final Result Abnormal IMPRESSION: No CT evidence of pulmonary embolism. Extensive crazy paving type opacity bilaterally which is worrisome for multifocal pneumonia, possibly viral in nature. Mediastinal and hilar lymphadenopathy which is likely reactive. CRITICAL TEST/RESULTS: A stat report was provided as requested at 5:55 PM on 03/29/2020. Knee Bolter: [facility] Transcribe Date/Time: Mar 29 2020 5:50P Dictated by : SORIN GIRALDO MD This examination was interpreted and the report reviewed and electronically signed by: SORIN GIRALDO MD on Mar 29 2020 5:55PM EST XR CHEST 1V FRONTAL Final Result IMPRESSION: Mildly worsening bilateral lung opacities Knee Bolter: [facility] Transcribe Date/Time: Mar 27 2020 10:30A Dictated by : DAMARIS CATES MD This examination was interpreted and the report reviewed and electronically signed by: DAMARIS CATES MD on Mar 27 2020 10:32AM EST XR CHEST 1V FRONTAL Final Result IMPRESSION: Patchy bilateral airspace disease which may be compatible with viral pneumonia in the appropriate clinical setting. This is less likely pulmonary edema given the lack of findings in the perihilar region. Knee Bolter: [facility] Transcribe Date/Time: Mar 25 2020 12:20A Dictated by : ARMANDO LOPEZ MD This examination was interpreted and the report reviewed and electronically signed by: ARMANDO LOPEZ MD on Mar 25 2020 12:21AM EST Respiratory/Nursing Documentation: O2 Therapy: Nasal Cannula (03/31/20 0615) IMPRESSION: Critical Care Documentation: The patient has the following organ/system impairment(s): Respiratory failure (Acute) 1.COVID PNA 2. Acute Respiratory failure 3. Hepatitis 4. Hypokalemia 5. Hypokalemia MMP CRITICAL CARE PLAN: - Transfer to MICU - Airvo - Start Vancomycin, zosyn and doxycycline - Hydroxychloroquin per ID rec- ID following - COVID labs - Trend hepatic function - Frequent repositioning - Saline nasal spray PLAN: Case was discussed in detail with the patient, the consulting team and staff. Staffed with : Dr. Santiago SIGNATURE: Fide Cuevas MD PATIENT NAME: Brice Gomez DATE: March 31, 2020 [facility] STAFF PHYSICIAN NOTE OF PERSONAL INVOLVEMENT IN CARE I have reviewed the documentation by the resident and I personally participated in the lanza components. I have discussed the case and management of the patient's care. The following comments revise or confirm relevant lanza components of the note. Slowly progressive acute hypoxic respiratory failure and will likely benefit from ICU care See above for details IMPRESSION: Critical Care Documentation: The patient has the following organ/system impairment(s): Respiratory failure (Acute, with Hypoxemia) 1. COVID pneumonia 2. Suspected bacterial pneumonia 3. Asthma 4. Acute transaminitis, non-obstructive pattern 5. 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 Hypokalemia 7. Tachycardia - multifactorial, see prior notes MMP PLAN: High flow oxygen - begin 30 LPM and % oxygen to maintain sats>94% until patient feels less dyspnea (eliminate oxygen debt) Antiviral therapy per ID Empirically cover HAP - given worsening Transfer to ICU Discussed with staff/ patient This patient has a high probability of sudden, clinically significant deterioration, which requires the highest level of physician preparedness to intervene urgently. I managed/supervised life or organ supporting interventions that required frequent physician assessment. I devoted my full attention to the direct care of this patient for the amount of time indicated below. Time I spent with family or surrogate(s) is included only if the patient was incapable of providing the necessary information or participating in medical decision making. Time devoted to teaching is not included. Time spent providing critical care services: 40 minutes excluding procedures. SIGNATURE: Maximiliano Santiago Jr, MD [facility] TIME of SERVICE: 7:32 AM [facility] NURSING PROGon 03-31-2020 NURSING PROG HNO ID: [id number] Author: Roya FuentesRn) DON Browne Service: Hospital Medicine Author Type: Registered Nurse Type: Nursing Progress Note Filed: 03/31/2020 7:07 AM Note Text: Kbxkb-xp-bavus report called to ICU [facility] NURSING PROG HNO ID: [id number] Author: Roya FuentesRn) DON Browne Service: Hospital Medicine Author Type: Registered Nurse Type: Nursing Progress Note Filed: 03/31/2020 6:16 AM Note Text: ICU paged regarding patient's oxygenation. [facility] NURSING PROG HNO ID: [id number] Author: Roya FuentesRn) DON Browne Service: Hospital Medicine Author Type: Registered Nurse Type: Nursing Progress Note Filed: 03/31/2020 6:15 AM Note Text: Dr. Pace called for an update with the patient. Dr. Pace made aware regarding patient's oxygenation. At the time of the phone call with Dr. Pace, patient was 95-96% on [address] Pace suggested that next time patient's oxygen level decreases to call ICU [facility] PLAN OF CAREon 03-31-2020 PLAN OF CARE HNO ID: [id number] Author: Jian Hidalgo (In Processing Instructor) Service: Pharmacy Author Type: Pharmacist Type: Plan of Care Filed: 03/31/2020 12:44 PM Note Text: MEDICATION HISTORY AND MEDICATION RECONCILIATION Patient Name:Ashley Gomez : 1980 Source of history:Patient: Reliability of source: able to confirm that she never used the fentanyl patches prescribed at the [place] [facility], Pharmacy records: per [facility] and [facility], [facility] records and [facility] Medication Nonadherence Identified: No barriers noted The above information represents the best possible medication history: Yes Reconciliation completed? Yes All TOP TAPER MACHINE medications addressed by LIP Additional comments: Patient currently COVID + in the ICU and therefore unable to interview the patient. Current medication history per pharmacy records. Of note, the patient was seen at the [place] ED on 03/24/2020 where she was prescribed guaifenesin with codeine and a fentanyl 12mcg/hr patch. I confirmed with the nurse and patient from outside of the room that she never used the prescribed patch. Unable to verify OTC medications at this time which could include her PPI (no fill history at the pharmacy) Vgaij-vr-Cnjzlmfrx Medication List Adjustments: Medication Regimen Changes: None Medications Added: Benzonatate 200mg TID PRN for cough Guaifenesin/codeine cough syrup 5mL Q6h PRN for cough Medications Removed: Dexamethasone 0.1% ophthalmic solution using 1 drop BID in each ear PRN for itching or rash - no recent fill history Dicyclomine 10mg before meals and bedtime - no recent fill history Hyoscyamine sublingual tablets 1-2 tabs Q4h PRN - no recent fill history Lactobacillus - no recent fill history, previously marked for d/c White petrolatum ophthalmic ointment - no recent fill history, previously marked for d/c Short-Term Medications: Levofloxacin 500mg daily for 10 days started on 03/23/2020 Azithromycin Z-pack on 02/19/2020 Patient is a 30 day readmission: No Time Spent Reviewing Patient's Medications: 30 minutes Allergies: ALLERGIES Allergen Reactions - Bee Sting Hives Facial edema - Biaxin [Clarithromy* Rash Patient developed a pruritic rash 7 days into course of biaxin and flagyl for H pylori infection. No mucous membrane involvement, exfoliation, fevers or joint pain/swelling. - Celexa [Citalopram] GI Upset - Entex [Phenylephrin* Intolerance Tachycardia - Flagyl [Metronidazo* Rash Patient developed a pruritic rash 7 days into course of biaxin and flagyl for H pylori infection. No mucous membrane involvement, exfoliation, fevers or joint pain/swelling. - Keflex [Cephalexin] Rash - Minocycline Hives - Penicillins Rash, Itching Vishnu Darrick type reaction. Preferred Pharmacy: [facility] in [facility] Current TOP TAPER MACHINE Medications: Prior to Admission medications as of 03/31/20 1238 Medication Sig Last Dose Taking codeine-guaiFENesin (ROBITUSSIN AC) 10-100 mg/5 mL syrup Take 5 mL by mouth four times daily as needed for Cough. Yes Benzonatate 200 mg capsule Take 200 mg by mouth three times daily as needed for Cough. Yes levoFLOXacin (LEVAQUIN) 500 mg tablet Take 1 tablet by mouth once daily for 10 days. Unknown at Unknown time Yes albuterol HFA (PROAIR HFA) 90 mcg/actuation inhaler Inhale 2 Puffs as instructed every 4 hours as needed. Unknown at Unknown time Yes buPROPion HCl (WELLBUTRIN SR) 200 mg 12 hr tablet Take 1 tablet by mouth twice daily. 03/24/2020 at Unknown time Yes dexamethasone 0.1% 0.1 % ophthalmic solution 1 Drop twice daily as needed (bilateral ears for itching/rash). Unknown at Unknown time Yes omeprazole (PRILOSEC) 20 mg capsule TAKE 1 CAPSULE BY MOUTH DAILY BEFORE BREAKFAST. 1/2 HR BEFORE MEAL. 03/24/2020 at Unknown time Yes cholecalciferol (VITAMIN D-3) 2,000 unit tablet Take 2,000 Units by mouth once daily. 03/24/2020 at Unknown time Yes cyclobenzaprine (FLEXERIL) 10 mg tablet Take 1 tablet by mouth every 8 hours as needed. Unknown at Unknown time Yes cetirizine (ZYRTEC) 10 mg tablet Take 10 mg by mouth once daily. Unknown at Unknown time Yes EPINEPHrine 0.3 mg/0.3 mL (1:1,000) atIn Inject 0.3 mL subcutaneously as needed. Then seek medical attention immediately. Unknown at Unknown time Yes multivitamins(DAILY MULTIVITAMIN TAB) Take one(1) tablet daily. 03/24/2020 at Unknown time Yes Jian Hidalgo, PharmD PGY-2 Critical Care In Processing Instructor Pager: [phone] March 31, 2020 12:39 PM [facility] PROGRESSon 03-31-2020 PROGRESS HNO ID: [id number] Author: Dayana James Service: Pulmonary Disease Author Type: Physician Type: Progress Notes Filed: 03/31/2020 6:30 PM Note Text: MICU - PROGRESS NOTE Service Date: 03/31/2020 Admission Date: 03/24/2020 AGE: [age] year old LOS: 6 days REASON FOR ICU ADMISSION: Acute resp failure Subjective INTERVAL EVENTS/DATA: Data/Meds/Notes reviewed in chart. Discussed with RN. Asked to reassess for acute resp failure/ COVID-19 on AIRVO, discussed w/ Dr. Santiago this AM Pt on 30L HFNC, 50% FiO2 No sig tachypnea Mild loss of appetite Feels nasal turbinates inflamed - getting ocean spray Discussed w/ RN Sinus tachy, febrile earlier but responded to tylenol PAST MEDICAL HISTORY Diagnosis Date - Abnormal uterine bleeding 01/31/2013 - Allergic rhinitis, cause unspecified Allergic rhinitis - Depression - Fibrosclerosis of breast - H. pylori infection - Low HDL (under 40) - Migraines - Neck pain, musculoskeletal - FLORENTINO (obstructive sleep apnea) 08/2016 - PMH - PAST MEDICAL HISTORY OF IUD - PMH - PAST MEDICAL HISTORY OF EPISODES OF TACCHYCARDIA DURING - Reactive airway disease - Severe pre-eclampsia, condition or complication Driver general hospitalization - Stone, kidney x2 - Vitamin D deficiency Objective VITAL SIGNS Vital signs reviewed. BP 131/88 Pulse 116 Temp (Src) 99.7 (Axillary) Resp 23 Ht 5' 0 (1.52m) Wt 139 lb 1.8 oz (63.1kg) SpO2 93% LMP 01/13/2018 BMI 27.17 kg/(m2). O2 Therapy: Hi-Flow Nasal Cannula-Heated, Liters: 30, %FIO2: 60 Temp (24hrs), Av.4 ?C (99.3 ?F), Min:36.9 ?C (98.4 ?F), Max:37.7 ?C (99.9 ?F) NET FLUID BALANCE Intake/Output Summary (Last 24 hours) at 03/31/2020 1748 Last data filed at 03/31/2020 1544 Gross per 24 hour Intake 540 ml Output 625 ml Net -85 ml MEDICATIONS Current Facility-Administered Medications Medication Dose Route Frequency - potassium chloride ER 20-40 mEq tab(s) (K-DUR, KLOR-CON) 20-40 mEq ORAL/FEEDING TUBE PRN Or - potassium chloride iv piggyback 20 mEq/100 mL 20 mEq INTRAVENOUS PRN - magnesium sulfate in water 2 g in sterile water 50 ml 2 g INTRAVENOUS PRN - sodium phosphate 45 mmol in NaCl 0.9% 250 mL 45 mmol INTRAVENOUS PRN - calcium gluconate 4 g in NaCl 0.9% 250 mL 4 g INTRAVENOUS PRN - enoxaparin 40 mg injection (LOVENOX) 40 mg SUBCUTANEOUS q 24 HR - sodium chloride 0.65 % 2 [place] (AYR, OCEAN) 2 [place] EACH NOSTRIL PRN - vancomycin iv piggyback 1 g in D5W 200 mL (VANCOCIN) 0.015 g/kg/dose INTRAVENOUS q 12 HR - vancomycin dosing and monitoring per pharmacy OTHER As Directed - aztreonam 2 g in D5W 100 mL MB+ (AZACTAM) 2 g INTRAVENOUS q 8 HR - albuterol HFA 90 mcg/actuation 2 Puff (PROVENTIL HFA, VENTOLIN HFA) 2 Puff INHALATION q 4 H PRN - oxyCODONE IR 5 mg tab(s) (ROXICODONE) 5 mg ORAL q 4 H PRN - senna-docusate 8.6-50 mg 1 tablet (SENNA-S) 1 tablet ORAL BID - bisacodyl 10 mg suppository (DULCOLAX) 10 mg RECTAL DAILY PRN - magnesium hydroxide 400 mg/5 mL 30 mL (MOM) 30 mL ORAL DAILY PRN - LORazepam 0.5 mg tab(s) (ATIVAN) 0.5 mg ORAL BID PRN - guaiFENesin-dextromethor rojas 100-10 mg/5 mL 10 mL oral liquid (ROBITUSSIN DM) 10 mL ORAL TID - acetaminophen 650 mg tab(s) (TYLENOL) 650 mg ORAL q 6 H PRN - ascorbic acid (vitamin C) 500 mg tab(s) (VITAMIN C) 500 mg ORAL DAILY - nystatin 5 mL oral liquid (MYCOSTATIN) 5 mL ORAL QID - benzonatate 100 mg cap(s) (TESSALON PERLE) 100 mg ORAL TID - buPROPion SR 200 mg tab(s) (WELLBUTRIN SR) 200 mg ORAL BID - cholecalciferol 2,000 Units tab(s) (VITAMIN D3) 2,000 Units ORAL DAILY - NaCl 0.9% 3-5 mL 3-5 mL INTRAVENOUS q 12 H - pantoprazole DR 40 mg tab(s) (PROTONIX) 40 mg ORAL DAILY (6 AM) Respiratory/Nursing Documentation: O2 Therapy: Hi-Flow Nasal Cannula-Heated (03/31/20 1627) Lines, Drains, and Airways Line Peripheral 03/27/20 0649 Assessment Short Left Hand 22 Gauge 4 days Peripheral 03/29/20 1655 Short Left Forearm 20 Gauge 2 days Peripheral 03/31/20 1635 Right Forearm 20 Gauge less than 1 day Drain Drain Straight Cath 06/04/13 0745 14 [place] 2492 days PHYSICAL EXAMINATION: Vitals-reviewed and noted above. Lines/Drains in place as noted above. AANDO x 3, following all commands, CRAFT Scattered crackles, no wheezes No accessory muscle use Sinus tachy Ab soft, NT/ND BS+ No edema DATA: All data reviewed, including, but not limited to, data noted below. All diagnostic tests, including labs/specimens and imaging, were personally reviewed by me with my lanza findings noted above and/or below. 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 [place]; initially admitted to floors on 03/25/20 for COVID-19 PNA, transferred to MICU for worsening acute hypoxemic resp failure on 03/31/20; Now with the following acute organ/system impairments: #Acute hypoxemic respiratory failure requiring Heated humidified HFNC via Airvo # COVID-19 PNA w/ contact exposure (health-care worker) # Possible secondary bacterial PNA- risk for HAP # Asthma- not in acute exacerbation # Acute uooeccrvvnmsg-ubx-imtidk ctive pattern # Mild hypokalemia # Sinus tachycardia w/ fever # CRP- was downtrending, slightly elevated # Mild hypophosphatemia # Asthma w/o exacerbation # Cephalosporin allergy PLAN: - Wean Airvo as tolerated to FiO2 >90% - ID consult appreciated- on Aztreonam and Vanc; will consider de-escalation since procalcitonin - Trend CRP and Ferritin - Fever control w/ tylenol - Replete lytes - Albuterol prn MDI - F/U IL-6 level though doubt role as not intubated and further in course, also ferritin <400 - ABG in AM - prn ativan for anxiety Code Status: Full This patient has a high probability of sudden, clinically significant deterioration, which requires the highest level of physician preparedness to intervene urgently. I managed/supervised life or organ supporting interventions that required frequent physician assessment. I devoted my full attention to the direct care of this patient for the amount of time indicated below. Time I spent with family or surrogate(s) is included only if the patient was incapable of providing the necessary information or participating in medical decision making. Time devoted to teaching and to any procedures I billed separately is not included. Discussed with staff. Patient and/or family updated: Yes Time spent providing critical care services: 35 minutes, excluding procedures. SIGNATURE: Dayana James MD [facility] DATE of SERVICE: March 31, 2020 TIME of SERVICE: 5:30 PM [facility] PROGRESS HNO ID: [id number] Author: Elian Philip Service: Infectious Disease Author Type: Physician Type: Progress Notes Filed: 03/31/2020 4:07 PM Note Text: INFECTIOUS DISEASE PROGRESS NOTE Patient Name: Brice Gomez Date: 03/31/2020 ASSESSMENT: 1. SARS- CoV- 19 multifocal pneumonia Worsened per the most recent CT chest 2. Acute hypoxic respiratory failure due to # 1 3. Acute transaminitis 4. Normal procalcitonin 5. 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 She was started on PO levofloxacin by per PCP but her symptoms did not improve. She had been on the floor for the last one week and has been having increasing O2 requirements. Upon review of her markers of inflammation, she has a ferritin level of < 400. One would be expect it to be much higher given the severity of her symptoms. CRP, LD and D dimer are also modestly elevated. A procalcitonin level is 0.07. CXR is noted for bilateral infiltrates in the mid to the lower lung zones which have worsened since admission. Her presentation is consistent with severe SARS-CoV- 19 pneumonia. However, patient also has severe anxiety and sinus congestion leading to troubled breathing. PLAN: 1. Continue with supportive care 2. Follow up on the IL- 6 level 3. Suspect the pulmonary infiltrates are due to the virus itself and low suspicion of her having secondary bacterial PNA in the setting of rather low procalcitonin and would have a low threshold to dc empiric antibiotics. Will re- assess and determine if the antibiotics should be stopped soon. Currently on vancomycin and aztreonam. Of note, she recently completed a 10 days course of levofloxacin. 4. Reasonable to repeat markers of inflammation CRP, LDH, ferritin every 48 hours for prognostication INTERVAL HISTORY: ROS done with pt/RN and negative unless stated. afberile On high O2 via AirVo FIO2 30 % and 30 L MEDICATIONS: reviewed. Current Facility-Administered Medications Medication Dose Route Frequency - buPROPion SR 200 mg tab(s) (WELLBUTRIN SR) 200 mg ORAL BID - cholecalciferol 2,000 Units tab(s) (VITAMIN D3) 2,000 Units ORAL DAILY - NaCl 0.9% 3-5 mL 3-5 mL INTRAVENOUS q 12 H - pantoprazole DR 40 mg tab(s) (PROTONIX) 40 mg ORAL DAILY (6 AM) - benzonatate 100 mg cap(s) (TESSALON PERLE) 100 mg ORAL TID - ascorbic acid (vitamin C) 500 mg tab(s) (VITAMIN C) 500 mg ORAL DAILY - nystatin 5 mL oral liquid (MYCOSTATIN) 5 mL ORAL QID - acetaminophen 650 mg tab(s) (TYLENOL) 650 mg ORAL q 6 H PRN - guaiFENesin-dextromethor rojas 100-10 mg/5 mL 10 mL oral liquid (ROBITUSSIN DM) 10 mL ORAL TID - potassium chloride ER 20-40 mEq tab(s) (K-DUR, KLOR-CON) 20-40 mEq ORAL/FEEDING TUBE PRN Or - potassium chloride iv piggyback 20 mEq/100 mL 20 mEq INTRAVENOUS PRN - magnesium sulfate in water 2 g in sterile water 50 ml 2 g INTRAVENOUS PRN - sodium phosphate 45 mmol in NaCl 0.9% 250 mL 45 mmol INTRAVENOUS PRN - calcium gluconate 4 g in NaCl 0.9% 250 mL 4 g INTRAVENOUS PRN - enoxaparin 40 mg injection (LOVENOX) 40 mg SUBCUTANEOUS q 24 HR - sodium chloride 0.65 % 2 [place] (AY[facility], [place]CE[place]) 2 [place] EACH NOSTRIL PRN - vancomycin iv piggyback 1 g in D5W 200 mL (VANCOCIN) 0.015 g/kg/dose INTRAVENOUS q 12 HR - vancomycin dosing and monitoring per pharmacy OTHER As Directed - aztreonam 2 g in D5W 100 mL MB+ (AZACTAM) 2 g INTRAVENOUS q 8 HR - albuterol HFA 90 mcg/actuation 2 Puff (PROVENTIL HFA, VENTOLIN HFA) 2 Puff INHALATION q 4 H PRN - oxyCODONE IR 5 mg tab(s) (ROXICODONE) 5 mg ORAL q 4 H PRN - senna-docusate 8.6-50 mg 1 tablet (SENNA-S) 1 tablet ORAL BID - bisacodyl 10 mg suppository (DULCOLAX) 10 mg RECTAL DAILY PRN - magnesium hydroxide 400 mg/5 mL 30 mL (MOM) 30 mL ORAL DAILY PRN - LORazepam 0.5 mg tab(s) (ATIVAN) 0.5 mg ORAL BID PRN PHYSICAL EXAM: Vital signs: BP 124/96 Pulse 102 Temp 37.6 ?C (99.7 ?F) Resp 25 Ht 152.4 cm (5') Wt 63.1 kg (139 lb 1.8 oz) LMP 01/13/2018 SpO2 99% BMI 27.17 kg/m? Temp (24hrs), Av.3 ?C (99.2 ?F), Min:36.9 ?C (98.4 ?F), Max:37.7 ?C (99.9 ?F) General: alert, oriented, NAD Lungs: diminished breath sounds bilaterally Heart: regular rate and rhythm Abdomen: soft, non tender, non distended, BS+ Extremities: no swollen joints Skin: no rash IV sites - wnl Lab data: reviewed Recent Labs 03/31/20 0900 03/31/20 0400 03/30/20 1030 03/29/20 0356 WBC -- 8.41 -- 5.75 HB -- 10.8* -- 10.9* PLT -- 359 -- 269 NA -- 140 140 141 K -- 3.7 3.3* 3.4* CO2 -- 26 26 25 BUN -- 11 11 15 CREAT -- 0.53* 0.51* 0.56* AST 154* 163* 134* 189* ALT 203* 198* 182* 184* TBILI 0.3 0.2 0.3 0.2 ALKPHOS 122 128* 118 105 CRP 7.7* 6.3* -- 4.2* LACT <2.0 -- -- -- Microbiology data: reviewed Nasal MRSA screen pending Blood cx 5/6 negative 5/6 strep pneumoniae antigen negative / COVID 19 PCr + Imaging data: reviewed Elian Philip MD, [facility] Infectious Diseases Pager: [phone] [facility] PROGRESS HNO ID: [id number] Author: Vinicio Eid) Riddhi Service: Hospital Medicine Author Type: Physician Type: Progress Notes Filed: 03/31/2020 7:37 AM Note Text: DEPARTMENT OF HOSPITAL MEDICINE PROGRESS NOTE SERVICE DATE: 03/31/2020 SERVICE TIME: 7:30 AM Hospital Medicine/Primary Attending: Vinicio Hannon MD NIGHT AND WEEKEND COVERAGE: After 7pm please page [phone] CHIEF COMPLAINT: Fever, generalized weakness SUBJECTIVE: Pt seen and examined at bedside. Currently requiring supplemental oxygen at 6 L/m via nasal cannula. Still c/o generalized weakness along with exertional shortness of breath. Early this AM, patient had again increased demand with supplemental oxygen upto 6L/m. She was still desaturating in her 80s upon exertion or moving. ICU informed. Patient is accepted to ICU and will be placed on hi-flow oxygen. OBJECTIVE: PHYSICAL EXAM: BP 130/90 Pulse 130 Temp (Src) 99.5 (Oral) Resp 20 Ht 5' 0 (1.52m) Wt 143 lb 1.3 oz (64.9kg) SpO2 94% LMP 01/13/2018 BMI 27.94 kg/(m2). O2 Therapy: Nasal Cannula, Liters: 6 General - AANDOx3, NAD, Calm Skin-Rash resolved CV - RRR S1 S2, No M/R/G RESP - Bilateral air entry fair, diffuse crackles ABD - soft, NT, ND +BS EXT - no Edema, no rashes NEURO - No focal deficits MEDICATIONS: Current Facility-Administered Medications Medication Dose Route Frequency - buPROPion SR 200 mg tab(s) (WELLBUTRIN SR) 200 mg ORAL BID - cholecalciferol 2,000 Units tab(s) (VITAMIN D3) 2,000 Units ORAL DAILY - NaCl 0.9% 3-5 mL 3-5 mL INTRAVENOUS q 12 H - aluminum-magnesium hydroxide-simethicone 200-200-20 mg/5 mL 30 mL (MAALOX,MYLANTA,MAG-AL PLUS) 30 mL ORAL DAILY PRN - polyethylene glycol 3350 17 g packet (MIRALAX, GLYCOLAX) 17 g ORAL DAILY PRN - pantoprazole DR 40 mg tab(s) (PROTONIX) 40 mg ORAL DAILY (6 AM) - heparin 5,000 Units injection 5,000 Units SUBCUTANEOUS q 8 H - benzonatate 100 mg cap(s) (TESSALON PERLE) 100 mg ORAL TID - ascorbic acid (vitamin C) 500 mg tab(s) (VITAMIN C) 500 mg ORAL DAILY - nystatin 5 mL oral liquid (MYCOSTATIN) 5 mL ORAL QID - acetaminophen 650 mg tab(s) (TYLENOL) 650 mg ORAL q 6 H PRN - iv contrast (radiology procedure) INTRAVENOUS DIRECTED PRN - guaiFENesin-dextromethor rojas 100-10 mg/5 mL 10 mL oral liquid (ROBITUSSIN DM) 10 mL ORAL TID - guaiFENesin-dextromethor rojas 100-10 mg/5 mL 10 mL oral liquid (ROBITUSSIN DM) 10 mL ORAL q 4 H PRN - albuterol HFA 90 mcg/actuation 2 Puff (PROVENTIL HFA, VENTOLIN HFA) 2 Puff INHALATION q 8 H - oxyCODONE-acetaminophen 5-325 mg 1 tablet (PERCOCET) 1 tablet ORAL q 8 H PRN DATA: Diagnostic tests reviewed for today's visit: CBC: Recent Labs 03/31/20 0400 WBC 8.41 RBC 3.75* HB 10.8* HCT 33.2* PLT 359 MCV 88.5 MCH 28.8 MPV 10.3 RDW 13.3 Coags: No results for input(s): INR, APTT in the last 24 hours. Invalid input(s): PT BMP: Recent Labs 03/31/20 0400 NA 140 K 3.7 CHLOR 101 CO2 26 BUN 11 CREAT 0.53* GLUC 95 CMP: Recent Labs 03/31/20 0400 03/30/20 1030 NA 140 140 K 3.7 3.3* CHLOR 101 100 CO2 26 26 BUN 11 11 CREAT 0.53* 0.51* GLUC 95 108* TPROT 6.5 6.4 CA 8.9 9.0 MG -- 2.0 TBILI 0.2 0.3 ALKPHOS 128* 118 ALT 198* 182* AST 163* 134* ANION 13 14 Cardiac Enzymes: No results for input(s): CK, MB, CKMB, TROPT in the last 24 hours. Liver Function, Amylase, Lipase: Recent Labs 03/31/20 0400 TPROT 6.5 ALB 3.2* ALT 198* AST 163* ALKPHOS 128* TBILI 0.2 MG/PHOS: Recent Labs 03/30/20 1030 MG 2.0 Renal Panel: Recent Labs 03/31/20 0400 CREAT 0.53* BUN 11 GLUC 95 CA 8.9 CHLOR 101 K 3.7 CO2 26 NA 140 Heme: Recent Labs 03/31/20 0400 LD 487* CHARLI 368.6* No results found for: UALBCR CTA chest No CT evidence of pulmonary embolism. Extensive crazy paving type opacity bilaterally which is worrisome for multifocal pneumonia, possibly viral in nature. Mediastinal and hilar lymphadenopathy which is likely reactive. Assessment/Plan Sepsis secondary to Covid 19 pneumonia -Present on admission - X-ray chest suggestive of bilateral patchy opacities upon admission. Repeat x-ray chest done on 03/27/2020 shows mildly worsening bilateral opacities - CTA chest noted as above -Lactate level I.0 - Completed Levaquin course 03/26/2020. - Inflammatory markers trending up . Monitor every 48 hours - Pro-calcitonin level normal - Blood cultures ?2 - no growth till date -Continue supportive care. Tylenol/Zofran when necessary - continue albuterol HFA every 4 hrs. Incentive spirometry - Continue to monitor respiratory status closely. Will be placed on hi-Flow oxygen in ICU - Telemetry monitoring - Monitor his status closely. - ID consult appreciated. Interleukin level was sent 03/30/2020. Acute hypoxic respiratory failure -Like secondary to above - Worsening - Continue to monitor respiratory status. Transaminitis - Likely infectious - AST/ALT trending up - Will follow LFTs Urticaria -Improved - - Zyrtec when necessary. Hypokalemia -Stable ? Asthma - Stable -Continue albuterol inhaler Mild protein calorie malnutrition -Merchant Tailor eval ? DVT prophylaxis - Heparin SC TID Medication and Non-Pharmacologic VTE Prophylaxis/Anticoagulan ts Anticoagulant AND Antiplatelet Medications (From admission, onward) Start Dose Route Frequency Ordered Stop 03/26/20 1730 heparin 5,000 Units injection 5,000 Units SUBCUTANEOUS EVERY 8 HOURS 03/26/20 1723 -- 03/25/20 0930 pneumatic compression stockings (nd,oh) 03/25/20 0930 activity - mobilize patient ([place]) Lines, Drains, and Airways Line Peripheral 03/27/20 0649 Assessment Short Left Hand 22 Gauge 4 days Peripheral 03/29/20 1655 Short Left Forearm 20 Gauge 1 day Drain Drain Straight Cath 06/04/13 0745 14 [place] 2491 days Reviewed lines and needs to be continued: REASONS: Intravenous fluids VTE Prophylaxis: Heparin 5000 units Sub Q TID Disposition: Home Functional Status Prior to Admit: Independent Medical Necessity for Continued Hospitalization - Covid 19 symptomatic Plan of care discussed with: Provider, RN, Patient SIGNATURE: Vinicio Hannon MD PATIENT NAME: Brice Gomez DATE: March 31, 2020 TIME: 7:36 AM PAGER/CONTACT #: Geronimo sumner pager [facility] CONSULTon 03-30-2020 CONSULT HNO ID: [id number] Author: Fide Cuevas MD Service: Critical Care Author Type: Resident Type: Consults Filed: 03/30/2020 2:55 PM Note Text: -------- Attestation signed by Gorge Irwin at 03/30/2020 2:59 PM See and Link to Dr Gorge Irwin progress note/attestation done today. Pt seen and examined and extensive review done with resident listed on this note. -------- MICU CONSULT HANDP CRITICAL CARE CONSULT NOTE SERVICE DATE: 03/30/2020 SERVICE TIME: 2:38 PM REASON FOR CONSULT: Worsening oxygen demand REQUESTING PHYSICIAN: Dr Hannon ADMITTING PROVIDER: Stella Lynn SERVICE DATE: 03/30/2020 SERVICE TIME: 2:38 PM Admission Date: 03/24/2020 AGE: [age] year old LOS: 5 days Subjective HISTORY OF PRESENT ILLNESS: Brice Gomez is a 39 year old individual being evaluated by MICU for concern for worsening oxygen demand. Patient is currently admitted to a regular nursing floor for Covid pneumonia with today being day 14 of illness and dictating since diagnosis. The patient states she feels better today than she did yesterday. The primary team consulted ICU to evaluate the patient for concern for worsening oxygen demand as the patient has been had increase in oxygen levels from 2 L at time of initial admission to 5 L at this time. The patient endorses intermittent coughing spells with mild chest pain during the coughs. She however denies fevers, chills, dyspnea, shortness of breath, palpitations, diaphoresis, nausea, vomiting or abdominal pain. Of note the patient does discussed that she is more comfortable ambulating to and from the bathroom today is compared to previous studies. Also of note the patient was noted to be speaking multiple long sentences without shortness of breath or stopping to catch her breath. PROBLEMS: ACTIVE PROBLEM LIST Allergic Rhinitis Depression Kidney Stones Other Psoriasis Fibroadenoma of Breast Chalazion of Left Lower Eyelid Neck Pain, Bilateral Dyspareunia Vitamin D Deficiency Generalized Anxiety Disorder Exertional Asthma High Myopia, Bilateral Regular Astigmatism, Bilateral S/P Asa/Prk (Advanced Surface Ablation Photorefractive Keratectomy) Covid-19 Virus Infection PAST MEDICAL HISTORY Diagnosis Date - Abnormal uterine bleeding 01/31/2013 - Allergic rhinitis, cause unspecified Allergic rhinitis - Depression - Fibrosclerosis of breast - H. pylori infection - Low HDL (under 40) - Migraines - Neck pain, musculoskeletal - FLORENTINO (obstructive sleep apnea) 08/2016 - PMH - PAST MEDICAL HISTORY OF IUD - PMH - PAST MEDICAL HISTORY OF EPISODES OF TACCHYCARDIA DURING - Reactive airway disease - Severe pre-eclampsia, condition or complication Driver general hospitalization - Stone, kidney x2 - Vitamin D deficiency PAST SURGICAL HISTORY Procedure Laterality Date - BREAST ASPIRATION fibroadenoma removal left breast - EYE SURG ANT SGMT PROC UNLISTED Bilateral 01/05/2018 PRK (Photorefractive Keratectomy) - HYSTEROSCOPY WBX WWO D AND C ANDOR POLYPECTOMY 05/2013 polyp - IR BASKET STONE EXTRACTION 2009 - LIGATE FALLOPIAN TUBE Tubal ligation - PAST SURGICAL HISTORY OF x2 - PAST SURGICAL HISTORY OF wisdom teeth - PAST SURGICAL HISTORY OF 05/19/[address] Silveira - STEROTACTIC GUIDE BREAST BX 10/01/12 u/s guidance of left breast Social History Tobacco Use - Smoking status: Never Smoker - Smokeless tobacco: Never Used Substance Use Topics - Alcohol use: Yes Comment: Rarely - Drug use: No PAST MEDICAL HISTORY: PAST MEDICAL HISTORY Diagnosis Date - Abnormal uterine bleeding 01/31/2013 - Allergic rhinitis, cause unspecified Allergic rhinitis - Depression - Fibrosclerosis of breast - H. pylori infection - Low HDL (under 40) - Migraines - Neck pain, musculoskeletal - FLORENTINO (obstructive sleep apnea) 08/2016 - PMH - PAST MEDICAL HISTORY OF IUD - PMH - PAST MEDICAL HISTORY OF EPISODES OF TACCHYCARDIA DURING - Reactive airway disease - Severe pre-eclampsia, condition or complication Driver general hospitalization - Stone, kidney x2 - Vitamin D deficiency SURGICAL HISTORY: PAST SURGICAL HISTORY Procedure Laterality Date - BREAST ASPIRATION fibroadenoma removal left breast - EYE SURG ANT SGMT PROC UNLISTED Bilateral 01/05/2018 PRK (Photorefractive Keratectomy) - HYSTEROSCOPY WBX WWO D AND C ANDOR POLYPECTOMY 05/2013 polyp - IR BASKET STONE EXTRACTION 2009 - LIGATE FALLOPIAN TUBE Tubal ligation - PAST SURGICAL HISTORY OF x2 - PAST SURGICAL HISTORY OF wisdom teeth - PAST SURGICAL HISTORY OF 05/19/[address] Silveira - STEROTACTWILLIE GUIDE BREAST BX 10/01/12 u/s guidance of left breast SOCIAL HISTORY: Social History Tobacco Use - Smoking status: Never Smoker - Smokeless tobacco: Never Used Substance Use Topics - Alcohol use: Yes Comment: Rarely - Drug use: No FAMILY HISTORY: FAMILY HISTORY Problem Relation Age of Onset - Allergies Mother - Headache Mother migraine headaches - other (mononucleosis) Mother - other (Fibromyalgia) Mother - Alcohol/Drug Father - Hypertension Maternal Grandmother - Osteoporosis Maternal Grandmother - Cancer Maternal Grandfather colon, hx of tobacco/alcohol abuse - Osteoporosis Paternal Grandmother - other (rheumatoid arthritis) Paternal Grandmother - Cancer Paternal Grandfather esophogeal cancer, hx of tobacco/alcohol abuse - Diabetes Paternal Grandfather - Allergies Sister - Allergies Brother - other (Pineal tumor) Brother Also tremors. - other (rheumatoid arhtritis) Paternal Aunt - No Ocular Disease No Family History MEDICATIONS: levoFLOXacin (LEVAQUIN) 500 mg tablet Take 1 tablet by mouth once daily for 10 days. albuterol HFA (PROAIR HFA) 90 mcg/actuation inhaler Inhale 2 Puffs as instructed every 4 hours as needed. buPROPion HCl (WELLBUTRIN SR) 200 mg 12 hr tablet Take 1 tablet by mouth twice daily. hyoscyamine sublingual (LEVSIN SL) 0.125 mg subl Take 1-2 tablets under tongue every 4hrs as needed. Max 12 tabs per day. dexamethasone 0.1% 0.1 % ophthalmic solution 1 Drop twice daily as needed (bilateral ears for itching/rash). omeprazole (PRILOSEC) 20 mg capsule TAKE 1 CAPSULE BY MOUTH DAILY BEFORE BREAKFAST. 1/2 HR BEFORE MEAL. cholecalciferol (VITAMIN D-3) 2,000 unit tablet Take 2,000 Units by mouth once daily. cyclobenzaprine (FLEXERIL) 10 mg tablet Take 1 tablet by mouth every 8 hours as needed. dicyclomine (BENTYL) 10 mg capsule Take 1 capsule by mouth before meals and at bedtime. Cetirizine (ZYRTEC) 10 mg cap Take by mouth. EPINEPHrine 0.3 mg/0.3 mL (1:1,000) atIn Inject 0.3 mL subcutaneously as needed. Then seek medical attention immediately. multivitamins(DAILY MULTIVITAMIN TAB) Take one(1) tablet daily. White Petrolatum-Mineral Oil (PURALUBE) 85-15 % oint Use 0.5 Inches in both eyes daily at bedtime. LACTOBACILLUS COMBO NO.6 (PROBIOTIC COMPLEX ORAL) Take by mouth. ALLERGIES: ALLERGIES Allergen Reactions - Bee Sting Hives Facial edema - Biaxin [Clarithromy* Rash Patient developed a pruritic rash 7 days into course of biaxin and flagyl for H pylori infection. No mucous membrane involvement, exfoliation, fevers or joint pain/swelling. - Celexa [Citalopram] GI Upset - Entex [Phenylephrin* Intolerance Tachycardia - Flagyl [Metronidazo* Rash Patient developed a pruritic rash 7 days into course of biaxin and flagyl for H pylori infection. No mucous membrane involvement, exfoliation, fevers or joint pain/swelling. - Keflex [Cephalexin] Rash - Minocycline Hives - Penicillins Rash, Itching Vishnu Darrick type reaction. REVIEW OF SYSTEMS GENERAL: Endorses malaise but No weight loss, or fevers. HEENT: Negative for frequent or significant headaches, No changes in hearing or vision, no nose bleeds or other nasal problems NECK: Negative for pain and significant neck swelling RESPIRATORY: see HPI CARDIOVASCULAR: Negative for chest pain, leg swelling or palpitations. GI: no nausea, vomiting, or diarrhea : No history of dysuria, frequency or incontinence. Objective PHYSICAL EXAM PHYSICAL EXAMINATION: BP 144/94 Pulse 103 Temp 37.2 ?C (99 ?F) (Oral) Resp 20 Ht 152.4 cm (5') Wt 64.9 kg (143 lb 1.3 oz) LMP 01/13/2018 SpO2 93% BMI 27.94 kg/m? Body mass index is 27.94 kg/m?. OXYGEN: General appearance: Well appearing, alert, in no acute distress, well-hydrated, well nourished. Skin: Skin color, texture, turgor normal, no suspicious rashes or lesions Head: normocephalic, no masses, lesions, tenderness or abnormalities Eyes: Anicteric sclera. Extraocular movements are intact. Oropharynx: Lips, mucosa, and tongue normal, teeth and gums normal, oropharynx normal Neck: Supple Back: Normal exam Lungs: Lungs clear to auscultation. No wheezing, rhonchi, rales Heart: RRR without murmur, gallop, or rubs. No ectopy Abdomen: Normal abdominal exam, Abdomen soft, non-tender. Bowel sounds normal. No masses, organomegaly Extremities: No deformities, edema, skin discoloration, clubbing or cyanosis. Neuro: Sensation and motor function grossly intact. DATA REVIEW CBC, Coags, BMP, Mg, Phos Recent Labs 03/30/20 1030 03/29/20 0356 03/28/20 0525 WBC -- 5.75 4.10 HB -- 10.9* 11.9 HCT -- 33.5* 36.1 PLT -- 269 221 NA 140 141 141 K 3.3* 3.4* 3.1* CHLOR 100 103 102 CO2 26 25 25 BUN 11 15 12 CREAT 0.51* 0.56* 0.58 GLUC 108* 100* 92 CA 9.0 9.0 8.9 MG 2.0 2.0 2.0 Liver Function, Amylase, AND Lipase Recent Labs 03/30/20 1030 03/29/20 0356 03/28/20 0525 TPROT 6.4 6.4 6.8 ALB 3.3* 3.3* 3.5* ALT 182* 184* 117* AST 134* 189* 164* ALKPHOS 118 105 96 TBILI 0.3 0.2 0.2 Cardiac Enzymes ABGs Recent Labs 03/29/20 1900 PH 7.484* PCO2 34.1* PO2 101.0 BE 2.5 Supplemental Oxygen: Yes.5L NC Imaging CT CHEST W IVCON PE Final Result Abnormal IMPRESSION: No CT evidence of pulmonary embolism. Extensive crazy paving type opacity bilaterally which is worrisome for multifocal pneumonia, possibly viral in nature. Mediastinal and hilar lymphadenopathy which is likely reactive. CRITICAL TEST/RESULTS: A stat report was provided as requested at 5:55 PM on 03/29/2020. Knee Bolter: [facility] Transcribe Date/Time: Mar 29 2020 5:50P Dictated by : SORIN GIRALDO MD This examination was interpreted and the report reviewed and electronically signed by: SORIN GIRALDO MD on Mar 29 2020 5:55PM EST XR CHEST 1V FRONTAL Final Result IMPRESSION: Mildly worsening bilateral lung opacities Knee Bolter: [facility] Transcribe Date/Time: Mar 27 2020 10:30A Dictated by : DAMARIS CATES MD This examination was interpreted and the report reviewed and electronically signed by: DAMARIS CATES MD on Mar 27 2020 10:32AM EST XR CHEST 1V FRONTAL Final Result IMPRESSION: Patchy bilateral airspace disease which may be compatible with viral pneumonia in the appropriate clinical setting. This is less likely pulmonary edema given the lack of findings in the perihilar region. Knee Bolter: [facility] Transcribe Date/Time: Mar 25 2020 12:20A Dictated by : ARMANDO LOPEZ MD This examination was interpreted and the report reviewed and electronically signed by: ARMANDO LOPEZ MD on Mar 25 2020 12:21AM EST Respiratory/Nursing Documentation: O2 Therapy: Nasal Cannula (03/30/20 1220) IMPRESSION: Critical Care Documentation: The patient has the following organ/system impairment(s): Respiratory failure (Acute) 1.COVID PNA 2. Acute Respiratory failure 3. Hepatitis 4. Hypokalemia 5. Hypokalemia MMP CRITICAL CARE PLAN: - Continue oxygen supplement - Monitor for increased oxygen demand if greater need transfer to ICU - Frequent repositioning - Potassium supplementation PLAN: Case was discussed in detail with the patient, the consulting team and staff. Staffed with : Dr. Irwin SIGNATURE: Fide Cuevas MD PATIENT NAME: Brice Gomez DATE: March 30, 2020 [facility] CONSULT HNO ID: [id number] Author: Gorge Irwin Service: Critical Care Author Type: Physician Type: Consults Filed: 03/30/2020 2:35 PM Note Text: [facility] STAFF PHYSICIAN NOTE OF PERSONAL INVOLVEMENT IN CARE I have reviewed the documentation by the resident and I personally participated in the lanza components. I have discussed the case and management of the patient's care. Patient seen and examined. The following comments revise or confirm relevant lanza components of the note. Discussed in multidisciplinary approach. Data: LABS: Recent Labs 03/30/20 1030 03/29/20 0356 CRP -- 4.2* WBC -- 5.75 RBC -- 3.78* HB -- 10.9* HCT -- 33.5* MCV -- 88.6 PLT -- 269 GLUC 108* 100* BUN 11 15 CREAT 0.51* 0.56* NA 140 141 K 3.3* 3.4* CHLOR 100 103 CO2 26 25 TPROT 6.4 6.4 ALB 3.3* 3.3* CA 9.0 9.0 ALKPHOS 118 105 TBILI 0.3 0.2 AST 134* 189* ALT 182* 184* MG 2.0 2.0 ABG: Recent Labs 03/29/20 1900 PH 7.484* PO2 101.0 PCO2 34.1* CXR: reviewed. Mild worse last 5 days; mayi GGO CT impressive GGo pneumoitis; subpleural Cx data: noted/reviewed; covid + Mild inc lft Notable labs: Medications reviewed. Respiratory: 5 abg good yest; nl pc02 34 PF 280 Pex: vitals as noted. BP 144/94 Pulse 103 Temp 37.2 ?C (99 ?F) (Oral) Resp 20 Ht 152.4 cm (5') Wt 64.9 kg (143 lb 1.3 oz) LMP 01/13/2018 SpO2 93% BMI 27.94 kg/m? Full exam as per resident note. Fatigue appearing but not really toxic currently; Lungs: NOT LABORED. Sat 94%; 5l02; Mild tachypnea, can speak 2-3 sentences fine; no overt wheeze; no hemoptysis; rare cough for me. ENT: no cervical lymphadenopathy visibly. Abd: nondistended, no rebound, nonsurgical, picked at food; did ok cottage cheese. CV: RRR. HR 102 No edema. Decent perfusion. Skin: few bruises not jaundice. No diaphoresis Neuro: alert; intact; states some anxiety Lines, Drains, and Airways Line Peripheral 03/27/20 0649 Assessment Short Left Hand 22 Gauge 3 days Peripheral 03/29/20 1655 Short Left Forearm 20 Gauge less than 1 day Drain Drain Straight Cath 06/04/13 0745 14 [place] 2491 days Patient Active Hospital Problem List: COVID-19 virus infection (03/25/2020) Critical Care Documentation: The patient has the following organ/system impairment(s): Respiratory failure (Acute, with Hypoxemia) ASS: 1. COVID pneumonia, mild inc CRP BUT FALLING; ddimer <3000, 2. Acute hypoxic resp failure 3. 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 Anxiety expected 6. hypokalemia PLAN: 1. I spoke to rn , attending on floor and agree to keep and let us know if worsens; I spoke to Covid ICU attending if needed 2. No remdesivir available/ spoke to pharm D; not meet criteria for tolulizamab IL6 3. No PE by CTa, pneumonitis moderate 4. icu if worse for HF02 , clearly does not need empiric vent today but at risk despite 14 days symptoms 5. respiratory therapy care reviewed; pt may try rotational positioning 6. Labs every other day likely ok 7. Elevated Hr IN PART MAY BE PSEUDOPHED AND ALBUTEROL AND DEXTROMETHORPHAN FREQUENTLY; reduce somewhat Appropriate adjustments will be made based on available data and information Discussed with bedside staff/ patient/ floor hospitalist; icu staff/ Pharm D/ bedside RN with Plan of care / resident with teaching This patient has a high probability of sudden, clinically significant deterioration, which requires the highest level of physician preparedness to intervene urgently. I managed/supervised life or organ supporting interventions that required frequent physician assessment. I devoted my full attention to the direct care of this patient for the amount of time indicated below. Time I spent with family or surrogate(s) is included only if the patient was incapable of providing the necessary information or participating in medical decision making. Time devoted to teaching is not included. Time spent providing critical care services: 35 minutes excluding procedures. SIGNATURE: Gorge Irwin MD [facility] TIME of SERVICE: 2:22 PM Normal [facility] NURSING PROGon 03-30-2020 NURSING PROG HNO ID: [id number] Author: Jennifer FuentesRn) Cornelia, RN Service: Nursing Author Type: Registered Nurse Type: Nursing Progress Note Filed: 03/30/2020 7:50 AM Note Text: Nursing Progress Note Patient Name: Brice Gomez Patient Location: [place] [address] [address] 05-20 Daily Note: Received call from Romina on PICC team at 0747 that a PICC cannot be placed bc pts WBC is too elevated at this time. This note was completed by: Jennifer Locke RN [facility] NUTRITIONon 03-30-2020 NUTRITION HNO ID: [id number] Author: Elizabeth Chavez Service: Nutrition Therapy Author Type: Registered Dietitian Type: Nutrition Filed: 03/30/2020 12:25 PM Note Text: NUTRITION THERAPY PROGRESS NOTE SERVICE DATE: 03/30/2020 SERVICE TIME: 12:17 PM Nutrition Assessment: Recommended Malnutrition Diagnosis: Mild Protein-Calorie Malnutrition (03/25/20 1200 : Elizabteh Chavez) Estimated kilocalorie needs: 2634-2658 Calorie Calculation Method: 20-25 kcals/kg Estimated protein needs (grams): 85-111 Grams protein determined by: 1.3-1.7 g/kg Care Plan: Continue current diet Supplements: Ensure Max;Boost Glucose Control;Magic Cup. Adjusted to provide additional kcals and variety. Monitor and Evaluation: Monitor fluid/electrolyte balance;Meet greater than 75% of estimated needs;Monitor labs, I/Os, vital signs, weight Discharge Recommendations: Diet;Oral Supplements Diet: Regular Oral Supplements: Continue with high protien supplement of patient's choice as needed Nutrition Follow-up: Interval History: Continues to be treated for COVID. Remains on O2 support. PO intake improving per MD. 0-50% at meals per nursing. PAST MEDICAL HISTORY Diagnosis Date - Abnormal uterine bleeding 01/31/2013 - Allergic rhinitis, cause unspecified Allergic rhinitis - Depression - Fibrosclerosis of breast - H. pylori infection - Low HDL (under 40) - Migraines - Neck pain, musculoskeletal - FLORENTINO (obstructive sleep apnea) 08/2016 - PMH - PAST MEDICAL HISTORY OF IUD - PMH - PAST MEDICAL HISTORY OF EPISODES OF TACCHYCARDIA DURING - Reactive airway disease - Severe pre-eclampsia, condition or complication [facility] hospitalization - Stone, kidney x2 - Vitamin D deficiency Anthropometrics: Height: 152.4 cm (5') Weight: 64.9 kg (143 lb 1.3 oz) Dosing Weight: 65 kg (143 lb 4.8 oz) Body mass index is 27.94 kg/m?. Overweight Weight change percentage over time: Insignificant weight meter changes records clerk the past > 6 months Intake History: Current Intake: Less than 50% estimated energy needs over: the past 5 days of admission Current Diet: DIET REGULAR SIGNATURE: Elizabeth Chavez RD, AILYN PATIENT NAME: Brice Gomez DATE: March 30, 2020 TIME: 12:17 PM PAGER: [phone] [facility] PROGRESSon 03-30-2020 PROGRESS HNO ID: [id number] Author: Elian Philip Service: Infectious Disease Author Type: Physician Type: Progress Notes Filed: 03/30/2020 5:09 PM Note Text: INFECTIOUS DISEASE PROGRESS NOTE Patient Name: Brice Gomez Date: 03/30/2020 ASSESSMENT: 1. SARS- CoV-19 Pneumonia/ lower resp tract infection 2. Leukopenia with Lymphopenia 3. Dyspnea 4. Fevers 5. Anosmia 6. Asthma? 7. Acute transaminitis DISCUSSION: Patient O2 requirement's have been slowly increasing although she looks comfortable while at rest and able to converse without getting SOB. Noted markers of inflammation and she has a ferritin < 400. She was noted to have a high D dimer [address] PE that showed bilateral viral pneumonia. ICU has been called to determine if patient needs to be moved to ICU. In my opinion, at this time, patient does not meet criteria for being sent to ICU for further monitoring. As well, the rationale for using Tocilizumab is only with in 24 hours of intubation. PLAN: 1. Continue with supportive care 2. Ferritin and CRP daily and LD and D dimer q 48 hours 3. I have sent an IL- 6 level 4. Check acute hepatitis panel INTERVAL HISTORY: ROS done with pt/RN and negative unless stated. Feels relatively OK while at rest On 6 liters via NC MEDICATIONS: reviewed. Current Facility-Administered Medications Medication Dose Route Frequency - buPROPion SR 200 mg tab(s) (WELLBUTRIN SR) 200 mg ORAL BID - cholecalciferol 2,000 Units tab(s) (VITAMIN D3) 2,000 Units ORAL DAILY - NaCl 0.9% 3-5 mL 3-5 mL INTRAVENOUS q 12 H - aluminum-magnesium hydroxide-simethicone 200-200-20 mg/5 mL 30 mL (MAALOX,MYLANTA,MAG-AL PLUS) 30 mL ORAL DAILY PRN - polyethylene glycol 3350 17 g packet (MIRALAX, GLYCOLAX) 17 g ORAL DAILY PRN - pantoprazole DR 40 mg tab(s) (PROTONIX) 40 mg ORAL DAILY (6 AM) - heparin 5,000 Units injection 5,000 Units SUBCUTANEOUS q 8 H - benzonatate 100 mg cap(s) (TESSALON PERLE) 100 mg ORAL TID - ascorbic acid (vitamin C) 500 mg tab(s) (VITAMIN C) 500 mg ORAL DAILY - nystatin 5 mL oral liquid (MYCOSTATIN) 5 mL ORAL QID - acetaminophen 650 mg tab(s) (TYLENOL) 650 mg ORAL q 6 H PRN - iv contrast (radiology procedure) INTRAVENOUS DIRECTED PRN - guaiFENesin-dextromethor rojas 100-10 mg/5 mL 10 mL oral liquid (ROBITUSSIN DM) 10 mL ORAL TID - guaiFENesin-dextromethor rojas 100-10 mg/5 mL 10 mL oral liquid (ROBITUSSIN DM) 10 mL ORAL q 4 H PRN - albuterol HFA 90 mcg/actuation 2 Puff (PROVENTIL HFA, VENTOLIN HFA) 2 Puff INHALATION q 8 H PHYSICAL EXAM: Vital signs: BP 143/94 Pulse 115 Temp 37.2 ?C (99 ?F) (Oral) Resp 21 Ht 152.4 cm (5') Wt 64.9 kg (143 lb 1.3 oz) LMP 01/13/2018 SpO2 92% BMI 27.94 kg/m? Temp (24hrs), Av.2 ?C (98.9 ?F), Min:37 ?C (98.6 ?F), Max:37.3 ?C (99.1 ?F) General: alert, oriented, NAD Lungs:diminished breath sounds bilaterally Heart: regular rate and rhythm Abdomen: soft, non tender, non distended, BS+ Extremities: no swollen joints Skin: no rash IV sites - wnl Lab data: reviewed Recent Labs 03/30/20 1030 03/29/20 0356 03/28/20 0525 WBC -- 5.75 4.10 HB -- 10.9* 11.9 PLT -- 269 221 NA 140 141 141 K 3.3* 3.4* 3.1* CO2 26 25 25 BUN 11 15 12 CREAT 0.51* 0.56* 0.58 AST 134* 189* 164* ALT 182* 184* 117* TBILI 0.3 0.2 0.2 ALKPHOS 118 105 96 CRP -- 4.2* -- Microbiology data: reviewed Imaging data: reviewed Elian Philip MD, [facility] Infectious Diseases Pager: [phone] [facility] PROGRESS HNO ID: [id number] Author: Vinicio Eid) Riddhi Service: Hospital Medicine Author Type: Physician Type: Progress Notes Filed: 03/30/2020 1:38 PM Note Text: DEPARTMENT OF HOSPITAL MEDICINE PROGRESS NOTE SERVICE DATE: 03/30/2020 SERVICE TIME: 1:32 PM Hospital Medicine/Primary Attending: Vinicio Hannon MD NIGHT AND WEEKEND COVERAGE: After 7pm please page [phone] CHIEF COMPLAINT: Fever, generalized weakness SUBJECTIVE: Pt seen and examined at bedside. , Currently requiring supplemental oxygen at 5 L/m via nasal cannula. Still c/o generalized weakness along with exertional shortness of breath. Took bath this AM and subsequently reported more exertional shortness of breath. Oral intake appears to have improved. Rash also improved. Last evening, patient complained of increasing exertional shortness of breath. CTA chest was done which showed extensive multifocal pneumonia. ABG did not reveal any acute findings. OBJECTIVE: PHYSICAL EXAM: BP 144/94 Pulse 103 Temp (Src) 99 (Oral) Resp 20 Ht 5' 0 (1.52m) Wt 143 lb 1.3 oz (64.9kg) SpO2 93% LMP 01/13/2018 BMI 27.94 kg/(m2). O2 Therapy: Nasal Cannula, Liters: 5 General - AANDOx3, NAD, Calm Skin-Rash resolved CV - RRR S1 S2, No M/R/G RESP - CTA B/L No wheezes, ronchi, rales ABD - soft, NT, ND +BS EXT - no Edema, no rashes NEURO - No focal deficits MEDICATIONS: Current Facility-Administered Medications Medication Dose Route Frequency - albuterol HFA 90 mcg/actuation 2 Puff (PROVENTIL HFA, VENTOLIN HFA) 2 Puff INHALATION q 4 H - buPROPion SR 200 mg tab(s) (WELLBUTRIN SR) 200 mg ORAL BID - cholecalciferol 2,000 Units tab(s) (VITAMIN D3) 2,000 Units ORAL DAILY - NaCl 0.9% 3-5 mL 3-5 mL INTRAVENOUS q 12 H - aluminum-magnesium hydroxide-simethicone 200-200-20 mg/5 mL 30 mL (MAALOX,MYLANTA,MAG-AL PLUS) 30 mL ORAL DAILY PRN - polyethylene glycol 3350 17 g packet (MIRALAX, GLYCOLAX) 17 g ORAL DAILY PRN - pantoprazole DR 40 mg tab(s) (PROTONIX) 40 mg ORAL DAILY (6 AM) - heparin 5,000 Units injection 5,000 Units SUBCUTANEOUS q 8 H - guaiFENesin-dextromethor rojas 100-10 mg/5 mL 10 mL oral liquid (ROBITUSSIN DM) 10 mL ORAL q 4 H - benzonatate 100 mg cap(s) (TESSALON PERLE) 100 mg ORAL TID - ascorbic acid (vitamin C) 500 mg tab(s) (VITAMIN C) 500 mg ORAL DAILY - loratadine-pseudoephedri ne ER 10-240 mg 1 tablet (CLARITIN-D 24) 1 tablet ORAL DAILY - nystatin 5 mL oral liquid (MYCOSTATIN) 5 mL ORAL QID - acetaminophen 650 mg tab(s) (TYLENOL) 650 mg ORAL q 6 H PRN - iv contrast (radiology procedure) INTRAVENOUS DIRECTED PRN - potassium chloride ER 40 mEq tab(s) (K-DUR, KLOR-CON) 40 mEq ORAL ONCE DATA: Diagnostic tests reviewed for today's visit: CBC: No results for input(s): WBC, RBC, HB, HCT, PLT, MCV, MCH, MPV, RDW in the last 24 hours. Coags: No results for input(s): INR, APTT in the last 24 hours. Invalid input(s): PT BMP: Recent Labs 03/30/20 1030 NA 140 K 3.3* CHLOR 100 CO2 26 BUN 11 CREAT 0.51* GLUC 108* CMP: Recent Labs 03/30/20 1030 NA 140 K 3.3* CHLOR 100 CO2 26 BUN 11 CREAT 0.51* GLUC 108* TPROT 6.4 CA 9.0 MG 2.0 TBILI 0.3 ALKPHOS 118 ALT 182* AST 134* ANION 14 Cardiac Enzymes: No results for input(s): CK, MB, CKMB, TROPT in the last 24 hours. Liver Function, Amylase, Lipase: Recent Labs 03/30/20 1030 TPROT 6.4 ALB 3.3* ALT 182* AST 134* ALKPHOS 118 TBILI 0.3 MG/PHOS: Recent Labs 03/30/20 1030 MG 2.0 Renal Panel: Recent Labs 03/30/20 1030 CREAT 0.51* BUN 11 GLUC 108* CA 9.0 CHLOR 100 K 3.3* CO2 26 NA 140 Heme: No results for input(s): RETICP, ABSRETIC, LD, CHARLI, FE, TIBC, TRANSFERSAT in the last 24 hours. No results found for: UALBCR CTA chest No CT evidence of pulmonary embolism. Extensive crazy paving type opacity bilaterally which is worrisome for multifocal pneumonia, possibly viral in nature. Mediastinal and hilar lymphadenopathy which is likely reactive. Assessment/Plan Sepsis secondary to Covid 19 pneumonia -Present on admission - X-ray chest suggestive of bilateral patchy opacities upon admission. Repeat x-ray chest done on 03/27/2020 shows mildly worsening bilateral opacities - CTA chest noted as above -Lactate level I.0 - Completed Levaquin course 03/26/2020. - Inflammatory markers elevated, although shows slight improvement. Monitor every 48 hours - Pro-calcitonin level normal - Blood cultures ?2 - no growth till date -Continue supportive care. Tylenol/Zofran when necessary - continue albuterol HFA every 4 hrs. Incentive spirometry - Continue to monitor respiratory status closely. Currently requiring supplemental oxygen at 5 L/m via nasal cannula. Increased from 4 L per minute as of yesterday - Telemetry monitoring - Monitor his status closely. - ID consult appreciated. Interleukin level was sent. - Case discussed with pulmonary/critical care attending. At this time, since patient is stable, we'll continue to monitor her on the floor. Should she decline any further, will transfer to ICU. Acute hypoxic respiratory failure -Like secondary to above - Continue to monitor respiratory status. Transaminitis - Likely infectious - AST/ALT slightly trended down - Will follow LFTs Urticaria -Improved - - Zyrtec when necessary. Hypokalemia -Supplemented ? Asthma - Stable -Continue albuterol inhaler Mild protein calorie malnutrition -Merchant Tailor eval ? DVT prophylaxis - Heparin SC TID Medication and Non-Pharmacologic VTE Prophylaxis/Anticoagulan ts Anticoagulant AND Antiplatelet Medications (From admission, onward) Start Dose Route Frequency Ordered Stop 03/26/20 1730 heparin 5,000 Units injection 5,000 Units SUBCUTANEOUS EVERY 8 HOURS 03/26/20 1723 -- 03/25/20 0930 pneumatic compression stockings ([place]) 03/25/20 0930 activity - mobilize patient ([place] Lines, Drains, and Airways Line Peripheral 03/27/20 0649 Assessment Short Left Hand 22 Gauge 3 days Peripheral 03/29/20 1655 Short Left Forearm 20 Gauge less than 1 day Drain Drain Straight Cath 06/04/13 0745 14 [place] 2491 days Reviewed lines and needs to be continued: REASONS: Intravenous fluids VTE Prophylaxis: Heparin 5000 units Sub Q TID Disposition: Home Functional Status Prior to Admit: Independent Medical Necessity for Continued Hospitalization - Covid 19 symptomatic Plan of care discussed with: Provider, RN, Patient and Family/Significant Other: , Rodrigo SIGNATURE: Vinicio Hannon MD PATIENT NAME: Brice Gomez DATE: March 30, 2020 TIME: 1:38 PM PAGER/CONTACT #: Team color pager [facility] PROGRESSon 03-29-2020 PROGRESS HNO ID: [id number] Author: Vinicio Hannon Service: Hospital Medicine Author Type: Physician Type: Progress Notes Filed: 03/29/2020 3:55 PM Note Text: DEPARTMENT OF HOSPITAL MEDICINE PROGRESS NOTE SERVICE DATE: 03/29/2020 SERVICE TIME: 3:37 PM Hospital Medicine/Primary Attending: Vinicio Hannon MD NIGHT AND WEEKEND COVERAGE: After 7pm please page [phone] CHIEF COMPLAINT: Fever, generalized weakness SUBJECTIVE: Pt seen and examined at bedside. , Currently requiring supplemental oxygen at 4 L/m via nasal cannula. Still c/o generalized weakness. Took bath this AM and subsequently reported more exertional shortness of breath. Oral intake appears to have improved. Rash also improved. OBJECTIVE: PHYSICAL EXAM: BP 133/87 Pulse 102 Temp (Src) 98.6 (Oral) Resp 20 Ht 5' 0 (1.52m) Wt 143 lb 1.3 oz (64.9kg) SpO2 94% LMP 01/13/2018 BMI 27.94 kg/(m2). O2 Therapy: Nasal Cannula, Liters: 4 General - AANDOx3, NAD, Calm Skin-Rash bilateral lower extremity much improved. Mild hives noted over bilateral upper extremity not itching CV - RRR S1 S2, No M/R/G RESP - CTA B/L No wheezes, ronchi, rales ABD - soft, NT, ND +BS EXT - no Edema, no rashes NEURO - No focal deficits MEDICATIONS: Current Facility-Administered Medications Medication Dose Route Frequency - albuterol HFA 90 mcg/actuation 2 Puff (PROVENTIL HFA, VENTOLIN HFA) 2 Puff INHALATION q 4 H - buPROPion SR 200 mg tab(s) (WELLBUTRIN SR) 200 mg ORAL BID - cholecalciferol 2,000 Units tab(s) (VITAMIN D3) 2,000 Units ORAL DAILY - NaCl 0.9% 3-5 mL 3-5 mL INTRAVENOUS q 12 H - aluminum-magnesium hydroxide-simethicone 200-200-20 mg/5 mL 30 mL (MAALOX,MYLANTA,MAG-AL PLUS) 30 mL ORAL DAILY PRN - polyethylene glycol 3350 17 g packet (MIRALAX, GLYCOLAX) 17 g ORAL DAILY PRN - pantoprazole DR 40 mg tab(s) (PROTONIX) 40 mg ORAL DAILY (6 AM) - heparin 5,000 Units injection 5,000 Units SUBCUTANEOUS q 8 H - guaiFENesin-dextromethor rojas 100-10 mg/5 mL 10 mL oral liquid (ROBITUSSIN DM) 10 mL ORAL q 4 H - benzonatate 100 mg cap(s) (TESSALON PERLE) 100 mg ORAL TID - ascorbic acid (vitamin C) 500 mg tab(s) (VITAMIN C) 500 mg ORAL DAILY - loratadine-pseudoephedri ne ER 10-240 mg 1 tablet (CLARITIN-D 24) 1 tablet ORAL DAILY - nystatin 5 mL oral liquid (MYCOSTATIN) 5 mL ORAL QID - acetaminophen 650 mg tab(s) (TYLENOL) 650 mg ORAL q 6 H PRN DATA: Diagnostic tests reviewed for today's visit: CBC: Recent Labs 03/29/20355 WBC 5.75 RBC 3.78* HB 10.9* HCT 33.5* PLT 269 MCV 88.6 MCH 28.8 MPV 10.4 RDW 13.5 Coags: No results for input(s): INR, APTT in the last 24 hours. Invalid input(s): PT BMP: Recent Labs 03/29/20355 NA 141 K 3.4* CHLOR 103 CO2 25 BUN 15 CREAT 0.56* GLUC 100* CMP: Recent Labs 03/29/20355 NA 141 K 3.4* CHLOR 103 CO2 25 BUN 15 CREAT 0.56* GLUC 100* TPROT 6.4 CA 9.0 MG 2.0 TBILI 0.2 ALKPHOS 105 ALT 184* AST 189* ANION 13 Cardiac Enzymes: No results for input(s): CK, MB, CKMB, TROPT in the last 24 hours. Liver Function, Amylase, Lipase: Recent Labs 03/29/20355 TPROT 6.4 ALB 3.3* ALT 184* AST 189* ALKPHOS 105 TBILI 0.2 MG/PHOS: Recent Labs 03/29/20355 MG 2.0 Renal Panel: Recent Labs 03/29/20355 CREAT 0.56* BUN 15 GLUC 100* CA 9.0 CHLOR 103 K 3.4* CO2 25 NA 141 Heme: Recent Labs 03/29/20355 LD 513* CHARLI 369.2* No results found for: UALBCR Assessment/Plan Sepsis secondary to Covid 19 pneumonia -Present on admission - X-ray chest suggestive of bilateral patchy opacities upon admission. Repeat x-ray chest done on 03/27/2020 shows mildly worsening bilateral opacities - Discontinued IV fluids. S/p Lasix 20 mg IVP ?1 dose. -Lactate level I.0 - Completed Levaquin course 03/26/2020. - Inflammatory markers elevated, although shows slight improvement. Monitor every 48 hours - Pro-calcitonin level normal - Blood cultures ?2 - no growth till date -Continue supportive care. Tylenol/Zofran when necessary - continue albuterol HFA every 4 hrs. Incentive spirometry - Continue to monitor respiratory status closely. Currently requiring supplemental oxygen at 4 L/m via nasal cannula. - Telemetry monitoring - Monitor his status closely. - ID consult appreciated. Await further recommendations Acute hypoxic respiratory failure -Like secondary to above -Patient reports more exertional shortness of breath today. Continues to be tachycardic. D-dimer level trending up. Will check CTA chest to rule out PE. Transaminitis - Likely infectious - AST/ALT trending up - Will follow LFTs Urticaria -Improved - - Zyrtec when necessary. Hypokalemia -Supplemented ? Asthma - Stable -Continue albuterol inhaler Mild protein calorie malnutrition -Merchant Tailor eval ? DVT prophylaxis - Heparin SC TID Medication and Non-Pharmacologic VTE Prophylaxis/Anticoagulan ts Anticoagulant AND Antiplatelet Medications (From admission, onward) Start Dose Route Frequency Ordered Stop 03/26/20 1730 heparin 5,000 Units injection 5,000 Units SUBCUTANEOUS EVERY 8 HOURS 03/26/20 1723 -- 03/25/20 0930 pneumatic compression stockings ([place]) 03/25/20 0930 activity - mobilize [place] Lines, Drains, and Airways Line Peripheral 03/27/20 0649 Assessment Short Left Hand 22 Gauge 2 days Drain Drain Straight Cath 06/04/13 0745 14 [place] 2490 days Reviewed lines and needs to be continued: REASONS: Intravenous fluids VTE Prophylaxis: Heparin 5000 units Sub Q TID Disposition: Home Functional Status Prior to Admit: Medical Necessity for Continued Hospitalization - Covid 19 symptomatic Plan of care discussed with: Provider, RN, Patient and Family/Significant Other: , Rodrigo SIGNATURE: Vinicio Hannon MD PATIENT NAME: Brice Gomez DATE: March 29, 2020 TIME: 3:54 PM PAGER/CONTACT #: Team color pager [facility] NURSING PROGon 03-28-2020 NURSING PROG HNO ID: [id number] Author: Alexandra FuentesRn) DON Au Service: Nursing Author Type: Registered Nurse Type: Nursing Progress Note Filed: 03/28/2020 5:44 PM Note Text: Text paged Dr. Hannon pt c/o mouth sore and feels like thrush and would like some diflucan for it. 1330-Text paged Dr. Hannon pt c/o of throat sore from PND and requesting Zyrtec. 1500- pt can not tolerate the PIV K+ and requested it shut off, it had been piggy backed into NS to make it less painful. Text paged Dr. Hannon regarding alternate K+ replacement per pt request. 1600 - Dr. Hannon on the floor and advised him of intolerance of pt with PIV K+ infusion. He stated, that is fine will check the level in the morning. [facility] PROGRESSon 03-28-2020 PROGRESS HNO ID: [id number] Author: Vinicio Eid) Riddhi Service: Hospital Medicine Author Type: Physician Type: Progress Notes Filed: 03/28/2020 1:52 PM Note Text: Summary: Progress note DEPARTMENT OF HOSPITAL MEDICINE PROGRESS NOTE SERVICE DATE: 03/28/2020 SERVICE TIME: 1:33 PM Hospital Medicine/Primary Attending: Vinicio Hannon MD NIGHT AND WEEKEND COVERAGE: After 7pm please page [phone] CHIEF COMPLAINT: Fever, generalized weakness SUBJECTIVE: Pt seen and examined at bedside. , Currently requiring supplemental oxygen at 4 L/m via nasal cannula. Still c/o generalized weakness. Took bath this AM. Reported urticaria on the simmons of both the legs has improved. Did report some hived on bilateral upper extremities. OBJECTIVE: PHYSICAL EXAM: BP 141/97 Pulse 100 Temp (Src) 99.3 (Oral) Resp 20 Ht 5' 0 (1.52m) Wt 143 lb 1.3 oz (64.9kg) SpO2 96% LMP 01/13/2018 BMI 27.94 kg/(m2). O2 Therapy: Nasal Cannula, Liters: 4 General - AANDOx3, NAD, Calm Skin-Rash bilateral lower extremity much improved. Mild hives noted over bilateral upper extremity not itching CV - RRR S1 S2, No M/R/G RESP - CTA B/L No wheezes, ronchi, rales ABD - soft, NT, ND +BS EXT - no Edema, no rashes NEURO - No focal deficits MEDICATIONS: Current Facility-Administered Medications Medication Dose Route Frequency - acetaminophen 650 mg tab(s) (TYLENOL) 650 mg ORAL q 6 H PRN - albuterol HFA 90 mcg/actuation 2 Puff (PROVENTIL HFA, VENTOLIN HFA) 2 Puff INHALATION q 4 H - buPROPion SR 200 mg tab(s) (WELLBUTRIN SR) 200 mg ORAL BID - cholecalciferol 2,000 Units tab(s) (VITAMIN D3) 2,000 Units ORAL DAILY - NaCl 0.9% 3-5 mL 3-5 mL INTRAVENOUS q 12 H - aluminum-magnesium hydroxide-simethicone 200-200-20 mg/5 mL 30 mL (MAALOX,MYLANTA,MAG-AL PLUS) 30 mL ORAL DAILY PRN - polyethylene glycol 3350 17 g packet (MIRALAX, GLYCOLAX) 17 g ORAL DAILY PRN - acetaminophen 650 mg tab(s) (TYLENOL) 650 mg ORAL q 6 H - pantoprazole DR 40 mg tab(s) (PROTONIX) 40 mg ORAL DAILY (6 AM) - heparin 5,000 Units injection 5,000 Units SUBCUTANEOUS q 8 H - guaiFENesin-dextromethor rojas 100-10 mg/5 mL 10 mL oral liquid (ROBITUSSIN DM) 10 mL ORAL q 4 H - benzonatate 100 mg cap(s) (TESSALON PERLE) 100 mg ORAL TID - ascorbic acid (vitamin C) 500 mg tab(s) (VITAMIN C) 500 mg ORAL DAILY - fluconazole 200 mg tab(s) (DIFLUCAN) 200 mg ORAL ONCE - [START ON 03/29/2020] fluconazole 100 mg tab(s) (DIFLUCAN) 100 mg ORAL DAILY DATA: Diagnostic tests reviewed for today's visit: CBC: Recent Labs 03/28/20 0525 WBC 4.10 RBC 4.12 HB 11.9 HCT 36.1 PLT 221 MCV 87.6 MCH 28.9 MPV 10.5 RDW 13.8 Coags: No results for input(s): INR, APTT in the last 24 hours. Invalid input(s): PT BMP: Recent Labs 03/28/20 0525 NA 141 K 3.1* CHLOR 102 CO2 25 BUN 12 CREAT 0.58 GLUC 92 CMP: Recent Labs 03/28/20 0525 NA 141 K 3.1* CHLOR 102 CO2 25 BUN 12 CREAT 0.58 GLUC 92 TPROT 6.8 CA 8.9 MG 2.0 TBILI 0.2 ALKPHOS 96 ALT 117* AST 164* ANION 14 Cardiac Enzymes: No results for input(s): CK, MB, CKMB, TROPT in the last 24 hours. Liver Function, Amylase, Lipase: Recent Labs 03/28/20 0525 TPROT 6.8 ALB 3.5* ALT 117* AST 164* ALKPHOS 96 TBILI 0.2 MG/PHOS: Recent Labs 03/28/20 0525 MG 2.0 Renal Panel: Recent Labs 03/28/20 0525 CREAT 0.58 BUN 12 GLUC 92 CA 8.9 CHLOR 102 K 3.1* CO2 25 NA 141 Heme: No results for input(s): RETICP, ABSRETIC, LD, CHARLI, FE, TIBC, TRANSFERSAT in the last 24 hours. No results found for: UALBCR Assessment/Plan Sepsis secondary to Covid 19 pneumonia -Present on admission - X-ray chest suggestive of bilateral patchy opacities upon admission. Repeat x-ray chest done on 03/27/2020 shows mildly worsening bilateral opacities - Discontinued IV fluids. S/p Lasix 20 mg IVP ?1 dose. -Lactate level I.0 - Completed Levaquin course 03/26/2020. - Inflammatory markers elevated, although shows slight improvement. Monitor every 48 hours - Pro-calcitonin level normal - Blood cultures ?2 - no growth till date -Continue supportive care. Tylenol/Zofran when necessary - continue albuterol HFA every 4 hrs. Incentive spirometry - Continue to monitor respiratory status closely. Currently requiring supplemental oxygen at 4 L/m via nasal cannula. Any further decline in the respiratory status, will consult pulmonary and obtain ABGs. - Telemetry monitoring - Monitor his status closely. - ID consult appreciated. Await further recommendations Transaminitis - Likely infectious - Will follow LFTs Urticaria -Unclear etiology? Related to Covid 19 vs ? Contact dermatitis. Does not appear to be a drug-related rash. - Doesn't want Benadryl. Prefers Zyrtec when necessary. Hypokalemia -Supplemented ? Asthma - Stable -Continue albuterol inhaler Mild protein calorie malnutrition -Merchant Tailor eval ? DVT prophylaxis - Heparin SC TID Medication and Non-Pharmacologic VTE Prophylaxis/Anticoagulan ts Anticoagulant AND Antiplatelet Medications (From admission, onward) Start Dose Route Frequency Ordered Stop 03/26/20 1730 heparin 5,000 Units injection 5,000 Units SUBCUTANEOUS EVERY 8 HOURS 03/26/20 1723 -- 03/25/20 0930 pneumatic compression stockings ([place]) 03/25/20 0930 activity - mobilize patient ([place]) Lines, Drains, and Airways Line Peripheral 03/27/20 0649 Assessment Short Left Hand 22 Gauge 1 day Drain Drain Straight Cath 06/04/13 0745 14 [place] 2489 days Reviewed lines and needs to be continued: REASONS: Intravenous fluids VTE Prophylaxis: Heparin 5000 units Sub Q TID Disposition: Home Functional Status Prior to Admit: Medical Necessity for Continued Hospitalization - Covid 19 symptomatic Plan of care discussed with: Provider, RN, Patient and Family/Significant Other: , Rodrigo SIGNATURE: Vinicio Hannon MD PATIENT NAME: Brice Gomez DATE: March 28, 2020 TIME: 1:52 PM PAGER/CONTACT #: Team color pager [facility] PROGRESS HNO ID: [id number] Author: Downtime Note Service: ? Author Type: ? Type: Progress Notes Filed: 03/28/2020 3:40 AM Note Text: Epic Scheduled Downtime: 03/28/2020 1:00:00 AM to 03/28/2020 3:33:00 AM [facility] PROGRESS HNO ID: [id number] Author: Elian Philip Service: Infectious Disease Author Type: Physician Type: Progress Notes Filed: 03/27/2020 11:13 PM Note Text: INFECTIOUS DISEASE PROGRESS NOTE Patient Name: Brice Gomez Date: 03/27/2020 ASSESSMENT: 1. COVID-19 Pneumonia 2. Leukopenia with Lymphopenia 3. Dyspnea 4. Fever 5. Anosmia 6. Asthma? ? RECOMMENDATIONS:?? 1. Continue with supportive care 2. Completed a short course of antibacterials already INTERVAL HISTORY: ROS done with pt/RN and negative unless stated. This am she required O2 as high as 4 L but her markers of inflamattion remains stable MEDICATIONS: reviewed. Current Facility-Administered Medications Medication Dose Route Frequency - acetaminophen 650 mg tab(s) (TYLENOL) 650 mg ORAL q 6 H PRN - albuterol HFA 90 mcg/actuation 2 Puff (PROVENTIL HFA, VENTOLIN HFA) 2 Puff INHALATION q 4 H - buPROPion SR 200 mg tab(s) (WELLBUTRIN SR) 200 mg ORAL BID - cholecalciferol 2,000 Units tab(s) (VITAMIN D3) 2,000 Units ORAL DAILY - NaCl 0.9% 3-5 mL 3-5 mL INTRAVENOUS q 12 H - aluminum-magnesium hydroxide-simethicone 200-200-20 mg/5 mL 30 mL (MAALOX,MYLANTA,MAG-AL PLUS) 30 mL ORAL DAILY PRN - ondansetron 4 mg tab(s) (ZOFRAN) 4 mg ORAL q 6 H PRN Or - ondansetron (PF) 4 mg injection (ZOFRAN) 4 mg INTRAVENOUS q 6 H PRN - polyethylene glycol 3350 17 g packet (MIRALAX, GLYCOLAX) 17 g ORAL DAILY PRN - acetaminophen 650 mg tab(s) (TYLENOL) 650 mg ORAL q 6 H - pantoprazole DR 40 mg tab(s) (PROTONIX) 40 mg ORAL DAILY (6 AM) - hydrOXYzine HCl 25 mg tab(s) (ATARAX) 25 mg ORAL q 6 H PRN - heparin 5,000 Units injection 5,000 Units SUBCUTANEOUS q 8 H - guaiFENesin-dextromethor rojas 100-10 mg/5 mL 10 mL oral liquid (ROBITUSSIN DM) 10 mL ORAL q 4 H - benzonatate 100 mg cap(s) (TESSALON PERLE) 100 mg ORAL TID PHYSICAL EXAM: Vital signs: BP 142/91 Pulse 95 Temp 37.4 ?C (99.3 ?F) (Oral) Resp 20 Ht 152.4 cm (5') Wt 64.9 kg (143 lb 1.3 oz) LMP 01/13/2018 SpO2 95% BMI 27.94 kg/m? Temp (24hrs), Av.7 ?C (99.9 ?F), Min:37.4 ?C (99.3 ?F), Max:38.4 ?C (101.1 ?F) General: alert, oriented, NAD Lungs: diminished breath sounds Heart: regular rate and rhythm Abdomen: soft, non tender, non distended, BS+ Extremities: no swollen joints Skin: no rash IV sites - wnl Lab data: reviewed Recent Labs 03/27/20 0100 03/26/20 0429 03/25/20 1230 03/25/20 0157 03/25/20 0148 WBC 5.00 3.87* -- -- 2.67* HB 10.9* 11.3 -- -- 11.9 PLT 157* 126* -- -- 100* NA 139 137 -- -- 140 K 3.1* 3.5* -- -- 3.7 CO2 21* 22 -- -- 23 BUN 8 5* -- -- 9 CREAT 0.58 0.60 -- -- 0.67 AST 50* see below -- -- -- ALT 31 15 -- -- -- TBILI 0.2 0.2 -- -- -- ALKPHOS 74 70 -- -- -- CRP 13.9* -- 14.6* -- -- LACT -- -- -- 1.0 -- Microbiology data: reviewed Imaging data: reviewed Elian Philip MD, [facility] Infectious Diseases Pager: [phone] [facility] ALLIED HEALTHon 03-27-2020 ALLIED HEALTH HNO ID: [id number] Author: Solitario (Student) Melanie Viveros Service: Spiritual Care Author Type: Student Type: Allied Health Filed: 03/27/2020 11:33 AM Note Text: SPIRITUALCARE Spiritual Care Visit- Brief Note Name: Brice Gomez Date: March 27, 2020 Notes: Called room and spoke with patient. Prayed with patient. Spiritual care team is available as needed and discussed with patient how to contact us. Cdl Program Coordinator Signature: Solitario Viveros To contact the Spiritual Care Department: Please call [phone] or Page the On-Call Cdl Program Coordinator at pager [phone] Thank you for the opportunity to be of service. This is an electronically created document. IF PRINTED, PLEASE DO NOT REMOVE FROM THE CHART OR MODIFY PRINTED COPY. [facility] CASE MANAGEMon 03-27-2020 CASE MANAGEM HNO ID: [id number] Author: ALEXANDRU Dias (Lisw) Service: Social Work Author Type: Food Preparation Supervisor Type: Care Mgt Progress Note Filed: 03/27/2020 2:45 PM Note Text: CARE MANAGEMENT PROGRESS NOTE SERVICE DATE: 03/27/2020 SERVICE TIME: 2:44 PM LOS: 2 days Continue to follow for post acute needs. Patient now on 4 liters oxygen. Not on any oxygen at home.. Plan is home withspuse on discharge. Self care. ... SIGNATURE: ALEXANDRU Dias PATIENT NAME: Brice Gomez DATE: March 27, 2020 TIME: 2:43 PM PAGER/CONTACT #: [phone] [facility] NURSING PROGon 03-27-2020 NURSING PROG HNO ID: [id number] Author: Roya FuentesRn) DON Browne Service: Hospital Medicine Author Type: Registered Nurse Type: Nursing Progress Note Filed: 03/27/2020 7:28 AM Note Text: Joseline from [facility] aware that there needed to be an increase in oxygen to 4 L and that the patient is oxygenating at 90-91%. No further orders given. [facility] PROGRESSon 03-27-2020 PROGRESS HNO ID: [id number] Author: Vinicio Hannon Service: Hospital Medicine Author Type: Physician Type: Progress Notes Filed: 03/27/2020 5:10 PM Note Text: DEPARTMENT OF HOSPITAL MEDICINE PROGRESS NOTE SERVICE DATE: 03/27/2020 SERVICE TIME: 4:42 PM Hospital Medicine/Primary Attending: Vinicio Hannon MD NIGHT AND WEEKEND COVERAGE: After 7pm please page [phone] CHIEF COMPLAINT: Fever, generalized weakness SUBJECTIVE: Pt seen and examined at bedside. , Rodrigo on speaker phone. Overnight required to be placed on supplemental oxygen did currently requiring supplemental oxygen at 4 L/m via nasal cannula. Still c/o generalized weakness. Reported urticaria on the simmons of both the legs. Saturating well on room air. OBJECTIVE: PHYSICAL EXAM: BP 127/83 Pulse 98 Temp (Src) 99.3 (Oral) Resp 16 Ht 5' 0 (1.52m) Wt 143 lb 1.3 oz (64.9kg) SpO2 97% LMP 01/13/2018 BMI 27.94 kg/(m2). O2 Therapy: Nasal Cannula, Liters: 4 General - AANDOx3, NAD, Calm Skin-small area of hives-anterior aspect of bilateral lower extremity CV - RRR S1 S2, No M/R/G RESP - CTA B/L No wheezes, ronchi, rales ABD - soft, NT, ND +BS EXT - no Edema, no rashes NEURO - No focal deficits MEDICATIONS: Current Facility-Administered Medications Medication Dose Route Frequency - guaiFENesin-dextromethor rojas 100-10 mg/5 mL 10 mL oral liquid (ROBITUSSIN DM) 10 mL ORAL q 4 H PRN - acetaminophen 650 mg tab(s) (TYLENOL) 650 mg ORAL q 6 H PRN - albuterol HFA 90 mcg/actuation 2 Puff (PROVENTIL HFA, VENTOLIN HFA) 2 Puff INHALATION q 4 H - buPROPion SR 200 mg tab(s) (WELLBUTRIN SR) 200 mg ORAL BID - cholecalciferol 2,000 Units tab(s) (VITAMIN D3) 2,000 Units ORAL DAILY - NaCl 0.9% 3-5 mL 3-5 mL INTRAVENOUS q 12 H - aluminum-magnesium hydroxide-simethicone 200-200-20 mg/5 mL 30 mL (MAALOX,MYLANTA,MAG-AL PLUS) 30 mL ORAL DAILY PRN - ondansetron 4 mg tab(s) (ZOFRAN) 4 mg ORAL q 6 H PRN Or - ondansetron (PF) 4 mg injection (ZOFRAN) 4 mg INTRAVENOUS q 6 H PRN - polyethylene glycol 3350 17 g packet (MIRALAX, GLYCOLAX) 17 g ORAL DAILY PRN - acetaminophen 650 mg tab(s) (TYLENOL) 650 mg ORAL q 6 H - pantoprazole DR 40 mg tab(s) (PROTONIX) 40 mg ORAL DAILY (6 AM) - hydrOXYzine HCl 25 mg tab(s) (ATARAX) 25 mg ORAL q 6 H PRN - heparin 5,000 Units injection 5,000 Units SUBCUTANEOUS q 8 H - NaCl 0.9% iv infusion 75 mL/hr INTRAVENOUS CONTINUOUS - guaiFENesin 100 mg oral liquid (ROBITUSSIN) 100 mg ORAL q 6 H DATA: Diagnostic tests reviewed for today's visit: CBC: Recent Labs 03/27/2099 WBC 5.00 RBC 3.79* HB 10.9* HCT 33.2* PLT 157* MCV 87.6 MCH 28.8 MPV 11.2 RDW 13.5 Coags: No results for input(s): INR, APTT in the last 24 hours. Invalid input(s): PT BMP: Recent Labs 03/27/2099 NA 139 K 3.1* CHLOR 104 CO2 21* BUN 8 CREAT 0.58 GLUC 110* CMP: Recent Labs 03/27/20 010 NA 139 K 3.1* CHLOR 104 CO2 21* BUN 8 CREAT 0.58 GLUC 110* TPROT 6.3 CA 8.4* MG 1.8 TBILI 0.2 ALKPHOS 74 ALT 31 AST 50* ANION 14 Cardiac Enzymes: No results for input(s): CK, MB, CKMB, TROPT in the last 24 hours. Liver Function, Amylase, Lipase: Recent Labs 03/27/2099 TPROT 6.3 ALB 3.2* ALT 31 AST 50* ALKPHOS 74 TBILI 0.2 MG/PHOS: Recent Labs 03/27/20 0100 MG 1.8 Renal Panel: Recent Labs 03/27/2099 CREAT 0.58 BUN 8 GLUC 110* CA 8.4* CHLOR 104 K 3.1* CO2 21* NA 139 Heme: Recent Labs 03/27/20 010 LD 365* CHARLI 270.3* No results found for: UALBCR Assessment/Plan Sepsis secondary to Covid 19 pneumonia -Present on admission - X-ray chest suggestive of bilateral patchy opacities upon admission. Repeat x-ray chest done on 03/27/2020 shows mildly worsening bilateral opacities - Discontinue IV fluids. Will give Lasix 20 mg IVP ?1 dose. -Lactate level I.0 - Completed Levaquin course 03/26/2020. - Inflammatory markers elevated, although shows slight improvement. Monitor every 48 hours - Pro-calcitonin level normal - Blood cultures ?2 - no growth till date -Continue supportive care. Tylenol/Zofran when necessary - continue albuterol HFA every 4 hrs. Incentive spirometry - Continue to monitor respiratory status closely. Currently requiring supplemental oxygen at 4 L/m via nasal cannula. Any further decline in the respiratory status, will consult pulmonary and obtain ABGs. - Telemetry monitoring - Monitor his status closely. Currently saturating well on room air. - ID consult appreciated. Await further recommendations Urticaria bilateral lower extremity -Unclear etiology? Related to Covid 19 vs ? Contact dermatitis. Does not appear to be a drug-related rash. -Benadryl 25 mg IVP ?1 dose ? Asthma - Stable -Continue albuterol inhaler Mild protein calorie malnutrition -Merchant Tailor eval ? DVT prophylaxis - Heparin SC TID Medication and Non-Pharmacologic VTE Prophylaxis/Anticoagulan ts Anticoagulant AND Antiplatelet Medications (From admission, onward) Start Dose Route Frequency Ordered Stop 03/26/20 1730 heparin 5,000 Units injection 5,000 Units SUBCUTANEOUS EVERY 8 HOURS 03/26/20 1723 -- 03/25/20 0930 pneumatic compression stockings ([place]) 03/25/20 0930 activity - mobilize patient ([place]) Lines, Drains, and Airways Line Peripheral 03/27/20 0649 Assessment Short Left Hand 22 Gauge less than 1 day Drain Drain Straight Cath 06/04/13 0745 14 [place] 2488 days Reviewed lines and needs to be continued: REASONS: Intravenous fluids VTE Prophylaxis: Heparin 5000 units Sub Q TID Disposition: Home Functional Status Prior to Admit: Medical Necessity for Continued Hospitalization - Covid 19 symptomatic Plan of care discussed with: Provider, RN, Patient and Family/Significant Other: , Rodrigo SIGNATURE: Vinicio Hannon MD PATIENT NAME: Brice Gomez DATE: March 27, 2020 TIME: 5:10 PM PAGER/CONTACT #: Team color pager [facility] NURSING PROGon 03-26-2020 NURSING PROG HNO ID: [id number] Author: Sugar (Rn) DON Abdi Service: Nursing Author Type: Registered Nurse Type: Nursing Progress Note Filed: 03/26/2020 5:40 PM Note Text: Lu Hannon at bedside with this RN, Patient (and pt Rodrigo via speaker phone) updated on plan of care. All questions answered. Pt states unable to sleep through night dt frequent bathroom use; OK to have fluids on hold overnight per pt request. [facility] PROGRESSon 03-26-2020 PROGRESS HNO ID: [id number] Author: Vinicio Eid) Riddhi Service: Hospital Medicine Author Type: Physician Type: Progress Notes Filed: 03/26/2020 5:32 PM Note Text: DEPARTMENT OF HOSPITAL MEDICINE PROGRESS NOTE SERVICE DATE: 03/26/2020 SERVICE TIME: 5:25 PM Hospital Medicine/Primary Attending: Vinicio Hannon MD NIGHT AND WEEKEND COVERAGE: After 7pm please page [phone] CHIEF COMPLAINT: Fever, generalized weakness SUBJECTIVE: Pt seen and examined at bedside. , Rodrigo on speaker phone. Appears to be clinically improving. Still c/o generalized weakness. Saturating well on room air. OBJECTIVE: PHYSICAL EXAM: BP 135/84 Pulse 110 Temp (Src) 99.3 (Oral) Resp 18 Ht 5' 0 (1.52m) Wt 143 lb 1.3 oz (64.9kg) SpO2 94% LMP 01/13/2018 BMI 27.94 kg/(m2). O2 Therapy: Nasal Cannula, Liters: 2 General - AANDOx3, NAD, Calm CV - RRR S1 S2, No M/R/G RESP - CTA B/L No wheezes, ronchi, rales ABD - soft, NT, ND +BS EXT - no Edema, no rashes NEURO - No focal deficits MEDICATIONS: Current Facility-Administered Medications Medication Dose Route Frequency - guaiFENesin-dextromethor rojas 100-10 mg/5 mL 10 mL oral liquid (ROBITUSSIN DM) 10 mL ORAL q 4 H PRN - acetaminophen 650 mg tab(s) (TYLENOL) 650 mg ORAL q 6 H PRN - albuterol HFA 90 mcg/actuation 2 Puff (PROVENTIL HFA, VENTOLIN HFA) 2 Puff INHALATION q 4 H - buPROPion SR 200 mg tab(s) (WELLBUTRIN SR) 200 mg ORAL BID - cholecalciferol 2,000 Units tab(s) (VITAMIN D3) 2,000 Units ORAL DAILY - NaCl 0.9% 3-5 mL 3-5 mL INTRAVENOUS q 12 H - aluminum-magnesium hydroxide-simethicone 200-200-20 mg/5 mL 30 mL (MAALOX,MYLANTA,MAG-AL PLUS) 30 mL ORAL DAILY PRN - ondansetron 4 mg tab(s) (ZOFRAN) 4 mg ORAL q 6 H PRN Or - ondansetron (PF) 4 mg injection (ZOFRAN) 4 mg INTRAVENOUS q 6 H PRN - polyethylene glycol 3350 17 g packet (MIRALAX, GLYCOLAX) 17 g ORAL DAILY PRN - acetaminophen 650 mg tab(s) (TYLENOL) 650 mg ORAL q 6 H - pantoprazole DR 40 mg tab(s) (PROTONIX) 40 mg ORAL DAILY (6 AM) - hydrOXYzine HCl 25 mg tab(s) (ATARAX) 25 mg ORAL q 6 H PRN - heparin 5,000 Units injection 5,000 Units SUBCUTANEOUS q 8 H DATA: Diagnostic tests reviewed for today's visit: CBC: Recent Labs 03/26/20428 WBC 3.87* RBC 3.80* HB 11.3 HCT 34.0* PLT 126* MCV 89.5 MCH 29.7 MPV 11.9 RDW 13.3 Coags: No results for input(s): INR, APTT in the last 24 hours. Invalid input(s): PT BMP: Recent Labs 03/26/20428 NA 137 K 3.5* CHLOR 103 CO2 22 BUN 5* CREAT 0.60 GLUC 107* CMP: Recent Labs 03/26/20428 NA 137 K 3.5* CHLOR 103 CO2 22 BUN 5* CREAT 0.60 GLUC 107* TPROT 6.2* CA 8.3* MG 1.8 TBILI 0.2 ALKPHOS 70 ALT 15 AST see below ANION 12 Cardiac Enzymes: No results for input(s): CK, MB, CKMB, TROPT in the last 24 hours. Liver Function, Amylase, Lipase: Recent Labs 03/26/20428 TPROT 6.2* ALB 3.3* ALT 15 AST see below ALKPHOS 70 TBILI 0.2 MG/PHOS: Recent Labs 03/26/20428 MG 1.8 Renal Panel: Recent Labs 03/26/20428 CREAT 0.60 BUN 5* GLUC 107* CA 8.3* CHLOR 103 K 3.5* CO2 22 NA 137 Heme: No results for input(s): RETICP, ABSRETIC, LD, CHARLI, FE, TIBC, TRANSFERSAT in the last 24 hours. No results found for: UALBCR Assessment/Plan Sepsis secondary to Covid 19 pneumonia -Present on admission - X-ray chest suggestive of bilateral patchy opacities -Lactate level I.0 - Completed Levaquin course - Continue IV hydration - Inflammatory markers elevated. Monitor every 48 hours - Pro-calcitonin level normal - Blood cultures ?2 - no growth till date -Continue supportive care. Tylenol/Zofran when necessary - continue albuterol every 4 hrs - Telemetry monitoring - Monitor his status closely. Currently saturating well on room air. - ID consult appreciated ? Asthma - Stable -Continue albuterol inhaler ? DVT prophylaxis - Heparin SC TID Medication and Non-Pharmacologic VTE Prophylaxis/Anticoagulan ts Anticoagulant AND Antiplatelet Medications (From admission, onward) Start Dose Route Frequency Ordered Stop 03/26/20 1730 heparin 5,000 Units injection 5,000 Units SUBCUTANEOUS EVERY 8 HOURS 03/26/20 1723 -- 03/25/20 0930 pneumatic compression stockings ([place]) 03/25/20 0930 activity - mobilize patient ([place]) Lines, Drains, and Airways Line Peripheral 03/25/20 0143 Short Left Antecubital 20 Gauge 1 day Drain Drain Straight Cath 06/04/13 0745 14 [place] 2487 days Reviewed lines and needs to be continued: REASONS: Intravenous fluids VTE Prophylaxis: Heparin 5000 units Sub Q TID Disposition: Home Functional Status Prior to Admit: Medical Necessity for Continued Hospitalization - Covid 19 symptomatic Plan of care discussed with: Provider, RN, Patient and Family/Significant Other: , Rodrigo SIGNATURE: Vinicio Hannon MD PATIENT NAME: Brice Gomez DATE: March 26, 2020 TIME: 5:25 PM PAGER/CONTACT #: Team color pager [facility] PROGRESS HNO ID: [id number] Author: Elian Philip Service: Infectious Disease Author Type: Physician Type: Progress Notes Filed: 03/26/2020 5:18 PM Note Text: INFECTIOUS DISEASE PROGRESS NOTE Patient Name: Brice Gomez Date: 03/26/2020 ASSESSMENT: 1. COVID-19 Pneumonia 2. Leukopenia with Lymphopenia 3. Dyspnea 4. Fever 5. Anosmia 6. Asthma ? RECOMMENDATIONS: 1. DC Levaquin s/p 5 days RX 2. CRP/ Ferritin/LD/D-Dimer in AM 3. Patient on O2 per request, no recorded hypoxia 4. Consider ppx anticoagulation in setting of elevated D-Dimer INTERVAL HISTORY: TMAX 100.8, on 2L NC per request per nursing No hypoxia. CRP elevated, ferritin WNL, D-Dimer 1,080 C/o severe cough MEDICATIONS: reviewed. Current Facility-Administered Medications Medication Dose Route Frequency - guaiFENesin-dextromethor rojas 100-10 mg/5 mL 10 mL oral liquid (ROBITUSSIN DM) 10 mL ORAL q 4 H PRN - acetaminophen 650 mg tab(s) (TYLENOL) 650 mg ORAL q 6 H PRN - albuterol HFA 90 mcg/actuation 2 Puff (PROVENTIL HFA, VENTOLIN HFA) 2 Puff INHALATION q 4 H - buPROPion SR 200 mg tab(s) (WELLBUTRIN SR) 200 mg ORAL BID - cholecalciferol 2,000 Units tab(s) (VITAMIN D3) 2,000 Units ORAL DAILY - NaCl 0.9% 3-5 mL 3-5 mL INTRAVENOUS q 12 H - aluminum-magnesium hydroxide-simethicone 200-200-20 mg/5 mL 30 mL (MAALOX,MYLANTA,MAG-AL PLUS) 30 mL ORAL DAILY PRN - ondansetron 4 mg tab(s) (ZOFRAN) 4 mg ORAL q 6 H PRN Or - ondansetron (PF) 4 mg injection (ZOFRAN) 4 mg INTRAVENOUS q 6 H PRN - polyethylene glycol 3350 17 g packet (MIRALAX, GLYCOLAX) 17 g ORAL DAILY PRN - acetaminophen 650 mg tab(s) (TYLENOL) 650 mg ORAL q 6 H - levoFLOXacin iv piggyback 750 mg in D5W 150 mL (LEVAQUIN) 750 mg INTRAVENOUS DAILY - pantoprazole DR 40 mg tab(s) (PROTONIX) 40 mg ORAL DAILY (6 AM) - hydrOXYzine HCl 25 mg tab(s) (ATARAX) 25 mg ORAL q 6 H PRN PHYSICAL EXAM: Vital signs: BP 128/74 Pulse 108 Temp 36.3 ?C (97.3 ?F) (Axillary) Resp 18 Ht 152.4 cm (5') Wt 64.9 kg (143 lb 1.3 oz) LMP 01/13/2018 SpO2 93% BMI 27.94 kg/m? Temp (24hrs), Av.3 ?C (99.2 ?F), Min:36.3 ?C (97.3 ?F), Max:38.2 ?C (100.8 ?F) General: alert, oriented, NAD Lungs: bilaterally clear to auscultation Heart: regular rate and rhythm Abdomen: soft, non tender, non distended, BS+ Extremities: no swollen joints Skin: no rash IV sites - wnl Lab data: reviewed Recent Labs 03/26/20 0429 03/25/20 1230 03/25/20 0157 03/25/20 0148 WBC 3.87* -- -- 2.67* HB 11.3 -- -- 11.9 PLT 126* -- -- 100* NA 137 -- -- 140 K 3.5* -- -- 3.7 CO2 22 -- -- 23 BUN 5* -- -- 9 CREAT 0.60 -- -- 0.67 AST see below -- -- -- ALT 15 -- -- -- TBILI 0.2 -- -- -- ALKPHOS 70 -- -- -- CRP -- 14.6* -- -- LACT -- -- 1.0 -- Microbiology data: reviewed Imaging data: reviewed [facility] Answering Service: [phone] March 26, 2020 2:03 PM Seen and examined independently. Agree fully w above notes as documented by the PALS NURSE. Elian Philip MD, LYDIA 03/26/2020 5:18 PM [facility] ALLIED HEALTHon 03-25-2020 ALLIED HEALTH HNO ID: [id number] Author: Emmy Stevens Service: Infection Prevention Author Type: ? Type: Allied Health Filed: 03/25/2020 8:43 AM Note Text: ISOLATION NOTE Admission Date: 03/24/2020 Type of Isolation Recommended: Specified Precautions (Black Sign) Indication: COVID-19 Date Isolation Initiated: 03/25/2020 Anticipated Duration of Isolation: In consultation with Infection Prevention Specifications: ? Place in private room ? Keep door closed during aerosol generating procedures Patient movement from room: ? Limit transport and movement of the patient to medically necessary purposes (Consider portable testing and when possible perform procedures/tests in patient?s room) ? Patient must wear a facemask at all times while traveling SIGNATURE: Emmy Stevens PATIENT NAME: Brice Gomez DATE: March 25, 2020 TIME: 8:35 AM PAGER/CONTACT #: Infection Prevention, [phone] Infection Prevention after hours/weekend pager: [phone] [facility] CASE MGT INOSMAR Lyons 2019 CASE MGT INIT [place] HNO ID: [id number] Author: ALEXANDRU Dias (Lisw) Service: Social Work Author Type: Food Preparation Supervisor Type: Care Mgt Initial Assessment Filed: 03/25/2020 10:44 AM Note Text: CARE MANAGEMENT: ASSESSMENT AND DISCHARGE PLAN SERVICE DATE: March 25, 2020 SERVICE TIME: 10:40 AM PRIMARY CARE PHYSICIAN: To Longoria DO ADMISSION STATUS: Inpatient Needs Prior to Discharge: Patient/Family MEDICAL: N/A 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 Last discharge within 30 days: No Advance Directive: Current Advance Directive: None Director Of Religious Life Attempted to Assist with AD Completion: No Unable to Assist Due To:: (pandemic) Health LiteracyHow often do you need to have someone help you when you read instructions, pamphlets, or other written material from your doctor or pharmacy? : 1 - Never How confident are you filling out medical forms by yourself?: 1 - Extremely Baseline Mental Status Prior to this Illness what was the patient's Baseline Mental Status?: Alert AND Oriented Prior to this illness, has anyone described the patient having any of the following behaviors?: Not Applicable Relationship of the informant to the patient:: Self Functional Status: Independent Does Patient Currently Receive Any Community Services or Home Care?: None Equipment Prior to Admission: None SOCIAL: Living Arrangements: Home Lives With: Spouse Financial Resources: EmployedPrimary Contact: Extended Emergency Contact Information Primary Emergency Contact: Rodrigo Gomez Address: [address] [place] [id number] [address] Relation: Spouse Secondary Emergency Contact: Gloria Guajardo Relation: Grandparent Supportive Patient Contact:: Yes Contact Resources: Family Family Name/Phone: (Spouse) Social Needs Food insecurity Worry: Never true Inability: Never true Resources Needed: No Social Needs Financial resource strain: Not hard at all Social Needs Transportation needs Medical: No Non-medical: No Caregiver AssessmentCaregiver is ready, willing and able to meet the patient's needs as recommended by the inter-professional team:: Yes Does the patient have an acute stroke diagnosis, or has the patient had a stroke during this admission?: No Patient's transition needs and plan for meeting these needs: (Discharge home self care) Patient's perception of need for this admission: R/O covid Medication Adherance I am convinced of the importance of my prescription medication: 0 - Agree Completely I worry that my prescription medication will do more harm than good to me : 0 - Disagree Completely I feel financially burdened by my [id number] expenses for my prescription medication:: 0 - Disagree Completely Risk Score: 0 Patient is categorized as: Low risk < 2 Are you interested in bedside delivery of your medications? No Is Patient Psychosocially Complex?: No ASSESSMENT AND PLAN: Medical Needs: Medical Needs: None Psychosocial Needs: Psychosocial Needs: None FREEDOM OF CHOICE EXPLAINED: Rumsey of Choice Given: No Reason Not Given: No placements necessary POTENTIAL TRANSITION PLANS No Services Indicated Telephone interview due to isolation. Patient is and has insurance. She lives with and he took a photo of his insurance card and sent to Admitting so she is not self pay. Independent and working. No DME. No services. +script+ PCP. Pharmacies at [facility] in [place]. Insurance is [employer] thru [facility].Planis d/c home by car with spouse when medically ready. SIGNATURE: ALEXANDRU Dias PATIENT NAME: Brice Gomez DATE: March 25, 2020 TIME: 10:40 AM PAGER/CONTACT #: [phone] [facility] CONSULTon 03-25-2020 CONSULT HNO ID: [id number] Author: Saundra Cramer Service: Infectious Disease Author Type: Nurse Practitioner Type: Consults Filed: 03/25/2020 2:20 PM Note Text: -------- Attestation signed by Elian Philip at 03/26/2020 5:15 PM Seen and examined independently. Agree fully w above notes as documented by the PALS NURSE. Elian Philip MD, LYDIA 03/26/2020 5:15 PM -------- CONSULT: INFECTIOUS DISEASE SERVICE SERVICE DATE: 03/25/2020 SERVICE TIME: 12:26 PM REASON FOR CONSULT: COVID 19 Pneumonia REQUESTING PHYSICIAN: PRIMARY CARE PHYSICIAN: To Longoria, Subjective Ms. Gomez is a 39 year old female PMHX significant for Reactive Airway Disease, FLORENTINO, who presented to the ED with c/o cough, shortness of breath, chest pain, anosmia, and fever. She reports a positive COVID-19 swab from [facility] 3 days prior. At [place] she was placed on Levaquin for concern for secondary bacterial infection. 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 WBC 2.7 with lymphopenia. CXR significant for patchy bilateral airspace disease. COVID-19 PCR positive. She was restarted on Levaquin, admitted to medical floor. ID consulted for further management. PAST MEDICAL HISTORY Diagnosis Date - Abnormal uterine bleeding 01/31/2013 - Allergic rhinitis, cause unspecified Allergic rhinitis - Depression - Fibrosclerosis of breast - H. pylori infection - Low HDL (under 40) - Migraines - Neck pain, musculoskeletal - FLORENTINO (obstructive sleep apnea) 08/2016 - PMH - PAST MEDICAL HISTORY OF IUD - PMH - PAST MEDICAL HISTORY OF EPISODES OF TACCHYCARDIA DURING - Reactive airway disease - Severe pre-eclampsia, condition or complication Driver general hospitalization - Stone, kidney x2 - Vitamin D deficiency PAST SURGICAL HISTORY Procedure Laterality Date - BREAST ASPIRATION fibroadenoma removal left breast - EYE SURG ANT SGMT PROC UNLISTED Bilateral 01/05/2018 PRK (Photorefractive Keratectomy) - HYSTEROSCOPY WBX WWO D AND C ANDOR POLYPECTOMY 05/2013 polyp - IR BASKET STONE EXTRACTION 2009 - LIGATE FALLOPIAN TUBE Tubal ligation - PAST SURGICAL HISTORY OF x2 - PAST SURGICAL HISTORY OF wisdom teeth - PAST SURGICAL HISTORY OF 05/19/[address] Silveira - STEROTACTIC GUIDE BREAST BX 10/01/12 u/s guidance of left breast FAMILY HISTORY Problem Relation Age of Onset - Allergies Mother - Headache Mother migraine headaches - other (mononucleosis) Mother - other (Fibromyalgia) Mother - Alcohol/Drug Father - Hypertension Maternal Grandmother - Osteoporosis Maternal Grandmother - Cancer Maternal Grandfather colon, hx of tobacco/alcohol abuse - Osteoporosis Paternal Grandmother - other (rheumatoid arthritis) Paternal Grandmother - Cancer Paternal Grandfather esophogeal cancer, hx of tobacco/alcohol abuse - Diabetes Paternal Grandfather - Allergies Sister - Allergies Brother - other (Pineal tumor) Brother Also tremors. - other (rheumatoid arhtritis) Paternal Aunt - No Ocular Disease No Family History Social History Tobacco Use - Smoking status: Never Smoker - Smokeless tobacco: Never Used Substance Use Topics - Alcohol use: Yes Comment: Rarely - Drug use: No levoFLOXacin (LEVAQUIN) 500 mg tablet, Take 1 tablet by mouth once daily for 10 days., Disp: 10 tablet, Rfl: 0, Unknown at Unknown time albuterol HFA (PROAIR HFA) 90 mcg/actuation inhaler, Inhale 2 Puffs as instructed every 4 hours as needed., Disp: 1 Inhaler, Rfl: 3, Unknown at Unknown time buPROPion HCl (WELLBUTRIN SR) 200 mg 12 hr tablet, Take 1 tablet by mouth twice daily., Disp: 180 tablet, Rfl: 3, 03/24/2020 at Unknown time hyoscyamine sublingual (LEVSIN SL) 0.125 mg subl, Take 1-2 tablets under tongue every 4hrs as needed. Max 12 tabs per day., Disp: 60 tablet, Rfl: 1, Unknown at Unknown time dexamethasone 0.1% 0.1 % ophthalmic solution, 1 Drop twice daily as needed (bilateral ears for itching/rash)., Disp: 5 mL, Rfl: 11, Unknown at Unknown time omeprazole (PRILOSEC) 20 mg capsule, TAKE 1 CAPSULE BY MOUTH DAILY BEFORE BREAKFAST. 1/2 HR BEFORE MEAL., Disp: 30 capsule, Rfl: 9, 03/24/2020 at Unknown time cholecalciferol (VITAMIN D-3) 2,000 unit tablet, Take 2,000 Units by mouth once daily., Disp: , Rfl: , 03/24/2020 at Unknown time cyclobenzaprine (FLEXERIL) 10 mg tablet, Take 1 tablet by mouth every 8 hours as needed., Disp: 30 tablet, Rfl: 2, Unknown at Unknown time dicyclomine (BENTYL) 10 mg capsule, Take 1 capsule by mouth before meals and at bedtime., Disp: 90 capsule, Rfl: 2, 03/24/2020 at Unknown time Cetirizine (ZYRTEC) 10 mg cap, Take by mouth., Disp: , Rfl: , Unknown at Unknown time EPINEPHrine 0.3 mg/0.3 mL (1:1,000) atIn, Inject 0.3 mL subcutaneously as needed. Then seek medical attention immediately., Disp: 1 Each, Rfl: 1, Unknown at Unknown time multivitamins(DAILY MULTIVITAMIN TAB), Take one(1) tablet daily., Disp: , Rfl: 0, 03/24/2020 at Unknown time White Petrolatum-Mineral Oil (PURALUBE) 85-15 % oint, Use 0.5 Inches in both eyes daily at bedtime., Disp: 1 Tube, Rfl: 4, Taking LACTOBACILLUS COMBO NO.6 (PROBIOTIC COMPLEX ORAL), Take by mouth., Disp: , Rfl: , Taking Current Facility-Administered Medications Medication Dose Route Frequency - guaiFENesin-dextromethor rojas 100-10 mg/5 mL 10 mL oral liquid (ROBITUSSIN DM) 10 mL ORAL q 4 H PRN - acetaminophen 650 mg tab(s) (TYLENOL) 650 mg ORAL q 6 H PRN - diphenhydrAMINE 50 mg injection (BENADRYL) 50 mg INTRAVENOUS q 6 H PRN - cetirizine 10 mg tab(s) (ZyrTEC) 10 mg ORAL DAILY - albuterol HFA 90 mcg/actuation 2 Puff (PROVENTIL HFA, VENTOLIN HFA) 2 Puff INHALATION q 4 H - buPROPion SR 200 mg tab(s) (WELLBUTRIN SR) 200 mg ORAL BID - cholecalciferol 2,000 Units tab(s) (VITAMIN D3) 2,000 Units ORAL DAILY - NaCl 0.9% 3-5 mL 3-5 mL INTRAVENOUS q 12 H - NaCl 0.9% iv infusion 100 mL/hr INTRAVENOUS CONTINUOUS - aluminum-magnesium hydroxide-simethicone 200-200-20 mg/5 mL 30 mL (MAALOX,MYLANTA,MAG-AL PLUS) 30 mL ORAL DAILY PRN - ondansetron 4 mg tab(s) (ZOFRAN) 4 mg ORAL q 6 H PRN Or - ondansetron (PF) 4 mg injection (ZOFRAN) 4 mg INTRAVENOUS q 6 H PRN - polyethylene glycol 3350 17 g packet (MIRALAX, GLYCOLAX) 17 g ORAL DAILY PRN - acetaminophen 650 mg tab(s) (TYLENOL) 650 mg ORAL q 6 H - levoFLOXacin iv piggyback 750 mg in D5W 150 mL (LEVAQUIN) 750 mg INTRAVENOUS DAILY - [START ON 03/26/2020] pantoprazole DR 40 mg tab(s) (PROTONIX) 40 mg ORAL DAILY (6 AM) Allergies As of Date: 03/24/2020 Allergen Noted Reaction BEE STING 05/02/2011 Hives BIAXIN [CLARITHROMYCIN] 01/08/2014 Rash CELEXA [CITALOPRAM] 02/14/2006 GI Upset ENTEX [PHENYLEPHRINE-GUAIFENES IN] 02/14/2006 Intolerance FLAGYL [METRONIDAZOLE HCL] 01/08/2014 Rash KEFLEX [CEPHALEXIN] 05/11/2009 Rash MINOCYCLINE 02/14/2006 Hives PENICILLINS 03/14/2006 Rash and Itching Fully Assessed 03/24/2020 COMPLETE REVIEW OF SYSTEMS: 10 point ROS complete, negative unless otherwise stated in HPI Objective PHYSICAL EXAM: Temp (24hrs), Av.7 ?C (99.9 ?F), Min:37.2 ?C (99 ?F), Max:38.5 ?C (101.3 ?F) GEN: Drowsy HEENT: PERRL, moist oral mucosa, neck supple PULM: bilateral rhonchi ++ cough CV: RRR GI: soft, non distended, non tender, BSx4 : no fong, no CVAT EXT: no edema, no joint inflammation SKIN: no rash NEURO: no focal deficits, Alert and oriented x3 LINES: PIV sites clean Body mass index is 27.94 kg/m?. DATA: Diagnostic tests reviewed for today's visit: Recent Labs 03/25/20 0157 03/25/20 0148 WBC -- 2.67* HB -- 11.9 PLT -- 100* NA -- 140 K -- 3.7 CO2 -- 23 BUN -- 9 CREAT -- 0.67 LACT 1.0 -- MICROBIOLOGY: reviewed IMAGES: reviewed Impression/Recommendatio ns 1. COVID-19 Pneumonia 2. Leukopenia with Lymphopenia 3. Dyspnea 4. Fever 5. Anosmia 6. Asthma RECOMMENDATIONS: Continue Levaquin for now D4, RX x 1 day more F/U CRP/ Ferritin/LD/D-Dimer F/U Pro Sung and CAP Ag SIGNATURE: Saundra Cramer APRN.CNP PATIENT NAME: Brice Gomez DATE: March 25, 2020 TIME: 12:26 PM PAGER: [phone] [facility] ECG COMPLETEon 03-25-2020 ECG COMPLETE NAME : BRICE GOMEZ PID : [id number] : 1980 Gender : Female Race : ORD : [id number] Procedure Date : Mar 25 2020 00:37:35 Edit Date : Apr 01 2020 15:44:27 Diagnosis:SINUS TACHYCARDIA OTHERWISE NORMAL ECG NO PREVIOUS ECGS AVAILABLE Confirmed by MD SHARLENE, ARIANNA ([id number]) on 04/01/2020 3:44:22 PM Ventricular Rate : 117 BPM Atrial Rate : 117 BPM P-R Interval : 130 ms QRS Duration : 86 ms Q-T Interval : 320 ms QTC Calculation(Bazett) : 446 ms P Biola : 28 degrees R Biola : 53 degrees T Biola : 14 degrees Test Reason : Arrhythmia Location : 4 : AKED 9 Overread By : MD SU THOMAS Edited By : MD SU THOMAS Referred By : , Acquired by : AMAN HANSEN [facility] ED NOTEon 03-25-2020 ED NOTE HNO ID: [id number] Author: Aman (Rn) DON Hansen Service: Emergency Medicine Author Type: Registered Nurse Type: ED Notes Filed: 03/25/2020 12:58 AM Note Text: PT ambulated with Dr. Mata, pt did not desat but did go Tachy 130's-150's. [facility] ED NOTE HNO ID: [id number] Author: Aman FuentesRn) DON Hansen Service: Emergency Medicine Author Type: Registered Nurse Type: ED Notes Filed: 03/25/2020 12:40 AM Note Text: covid swab sent to lab [facility] ED NOTE HNO ID: [id number] Author: Aman FuentesRn) DON Hansen Service: Emergency Medicine Author Type: Registered Nurse Type: ED Notes Filed: 03/25/2020 12:33 AM Note Text: US iv attempt by this RN x2. Both lines blew. Dr. Kemp aware. [facility] ED NOTE HNO ID: [id number] Author: Aman (Rn) DON Hansen Service: Emergency Medicine Author Type: Registered Nurse Type: ED Notes Filed: 03/25/2020 12:16 AM Note Text: Pt placed on cardiac rehabilitation specialist and cont pulse ox, shows ST [facility] ED PROV NOTEon 03-25-2020 ED PROV NOTE HNO ID: [id number] Author: Ruby Suazo DO Service: Emergency Medicine Author Type: Physician Type: ED Provider Notes Filed: 03/25/2020 2:38 AM Note Text: -------- Attestation signed by Bharat Mata at 03/26/2020 2:53 AM Attending Physician Attestation Note: Lanza findings confirmed. I saw the patient in coordination with the resident physician. I personally interviewed and examined the patient. I discussed the patient with the resident physician. I reviewed the resident physician's note. I was present for lanza portions of and personally supervised any/all procedures. I agree with the resident physician's findings and medical decision making unless otherwise documented. Signature: Bharat Mata DO Date: 03/26/2020 Time: 2:53 AM -------- ED Provider Note Patient Name: Brice Gomez SERVICE DATE: 03/24/20 History Patient presents with: Shortness of Breath: pt +COVID (swabbed at [place] on [address]). pt has cough and +SOB, states her pulse ox was 89. +cp. +fever 39 yo female with history of reactive airway disease requiring PRN albuterol - presenting for complaint of worsening shortness of breath and hypoxia in the setting of known COVID19 viral infection. Patient reports fevers, chills, persistent dry cough, shortness of breath initially with exertion now at rest, with anosmia and loss of taste x 6 days. Reports she was tested for COVID 19 and found to be positive 3 days prior. Placed on levaquin for concern of secondary bacterial infection. Seen at [place] ED this morning where she had a CXR and received a liter of fluids. Patient reports hypoxia to 88% when dozing and with ambulation to the bathroom. Patient using tylenol and ibuprofen Q6H for fevers and myalgias. No prior history of tobacco use, HTN, COPD, or obesity. PAST MEDICAL HISTORY Diagnosis Date - Abnormal uterine bleeding 01/31/2013 - Allergic rhinitis, cause unspecified Allergic rhinitis - Depression - Fibrosclerosis of breast - H. pylori infection - Low HDL (under 40) - Migraines - Neck pain, musculoskeletal - FLORENTINO (obstructive sleep apnea) 08/2016 - PMH - PAST MEDICAL HISTORY OF IUD - PMH - PAST MEDICAL HISTORY OF EPISODES OF TACCHYCARDIA DURING - Reactive airway disease - Severe pre-eclampsia, condition or complication Driver general hospitalization - Stone, kidney x2 - Vitamin D deficiency PAST SURGICAL HISTORY Procedure Laterality Date - BREAST ASPIRATION fibroadenoma removal left breast - EYE SURG ANT SGNM PROC UNLISTED Bilateral 01/05/2018 PRK (Photorefractive Keratectomy) - HYSTEROSCOPY WBX WWO D AND C ANDOR POLYPECTOMY 05/2013 polyp - IR BASKET STONE EXTRACTION 2009 - LIGATE FALLOPIAN TUBE Tubal ligation - PAST SURGICAL HISTORY OF x2 - PAST SURGICAL HISTORY OF wisdom teeth - PAST SURGICAL HISTORY OF 05/19/[address] Silveira - STEROTACTIC GUIDE BREAST BX 10/01/12 u/s guidance of left breast FAMILY HISTORY Problem Relation Age of Onset - Allergies Mother - Headache Mother migraine headaches - other (mononucleosis) Mother - other (Fibromyalgia) Mother - Alcohol/Drug Father - Hypertension Maternal Grandmother - Osteoporosis Maternal Grandmother - Cancer Maternal Grandfather colon, hx of tobacco/alcohol abuse - Osteoporosis Paternal Grandmother - other (rheumatoid arthritis) Paternal Grandmother - Cancer Paternal Grandfather esophogeal cancer, hx of tobacco/alcohol abuse - Diabetes Paternal Grandfather - Allergies Sister - Allergies Brother - other (Pineal tumor) Brother Also tremors. - other (rheumatoid arhtritis) Paternal Aunt - No Ocular Disease No Family History Social History Tobacco Use - Smoking status: Never Smoker - Smokeless tobacco: Never Used Substance and Sexual Activity - Alcohol use: Yes Comment: Rarely - Drug use: No - Sexual activity: Not on file Comment: Patient not asked at this visit. 11/06/2017 ALLERGIES Allergen Reactions - Bee Sting Hives Facial edema - Biaxin [Clarithromy* Rash Patient developed a pruritic rash 7 days into course of biaxin and flagyl for H pylori infection. No mucous membrane involvement, exfoliation, fevers or joint pain/swelling. - Celexa [Citalopram] GI Upset - Entex [Phenylephrin* Intolerance Tachycardia - Flagyl [Metronidazo* Rash Patient developed a pruritic rash 7 days into course of biaxin and flagyl for H pylori infection. No mucous membrane involvement, exfoliation, fevers or joint pain/swelling. - Keflex [Cephalexin] Rash - Minocycline Hives - Penicillins Rash, Itching Vishnu Darrick type reaction. Review of Systems Constitutional: Positive for appetite change (decreased), chills, fatigue and fever. HENT: Positive for congestion and sore throat (2/2 coughing). Negative for rhinorrhea and sinus pressure. Eyes: Negative for photophobia and visual disturbance. Respiratory: Positive for cough and shortness of breath. Negative for chest tightness and wheezing. Cardiovascular: Positive for palpitations (tachycardia). Negative for chest pain and leg swelling. Gastrointestinal: Negative for abdominal distention, abdominal pain, constipation, diarrhea, nausea and vomiting. Genitourinary: Negative for decreased urine volume, difficulty urinating, dysuria, frequency, hematuria, urgency, vaginal bleeding, vaginal discharge and vaginal pain. Musculoskeletal: Positive for myalgias. Negative for arthralgias, back pain and neck pain. Skin: Negative for color change and rash. Neurological: Negative for dizziness, weakness, light-headedness and headaches. Loss of smell and taste Psychiatric/Behavioral: Negative for agitation and confusion. Physical Exam BP 129/74 Pulse 125 Temp (Src) 100 (Oral) Resp 16 Ht 5' 0 (1.52m) Wt 143 lb (64.9kg) SpO2 95% LMP 01/13/2018 BMI 27.93 kg/(m2). O2 Therapy: Room Air Physical Exam Vitals signs and nursing note reviewed. Constitutional: General: She is not in acute distress. Appearance: She is well-developed. She is ill-appearing. She is not diaphoretic. Comments: Fatigued, ill appearing middle aged female. Dyspneic with conversation, frequent dry cough. Oxygen saturation 97% on RA during conversation. HENT: Head: Normocephalic and atraumatic. Right Ear: External ear normal. Left Ear: External ear normal. Nose: Nose normal. Mouth/Throat: Pharynx: No oropharyngeal exudate. Eyes: General: Right eye: No discharge. Left eye: No discharge. Conjunctiva/sclera: Conjunctivae normal. Pupils: Pupils are equal, round, and reactive to light. Neck: Musculoskeletal: Normal range of motion and neck supple. Cardiovascular: Rate and Rhythm: Regular rhythm. Tachycardia present. Pulses: Radial pulses are 2+ on the right side and 2+ on the left side. Dorsalis pedis pulses are 2+ on the right side and 2+ on the left side. Heart sounds: Normal heart sounds. No murmur. Pulmonary: Effort: Pulmonary effort is normal. No respiratory distress. Breath sounds: Examination of the right-lower field reveals rales. Examination of the left-lower field reveals rales. Rales present. No decreased breath sounds or wheezing. Chest: Chest wall: No tenderness. Abdominal: General: Bowel sounds are normal. There is no distension. Palpations: Abdomen is soft. Tenderness: There is no abdominal tenderness. There is no guarding or rebound. Musculoskeletal: Normal range of motion. General: No tenderness. Lymphadenopathy: Cervical: No cervical adenopathy. Skin: General: Skin is warm and dry. Capillary Refill: Capillary refill takes less than 2 seconds. Findings: No erythema. Neurological: General: No focal deficit present. Mental Status: She is alert and oriented to person, place, and time. Cranial Nerves: No cranial nerve deficit. Sensory: No sensory deficit. Gait: Gait normal. Psychiatric: Mood and Affect: Mood is anxious. Behavior: Behavior normal. Thought Content: Thought content normal. Diagnostic Testing ED Labs Ordered and Reviewed BASIC METABOLIC PANEL (AK,AV,EU,FV,HL,TIMMY,MM,SP ) - Abnormal; Notable for the following components: Result Value Ref Range Calcium 8.4 (*) 8.5 - 10.2 mg/dL All other components within normal limits CBC + AUTO DIFF (AK,AV,EU,FV,HL,TIMMY,MM,SP ) - Abnormal; Notable for the following components: WBC 2.67 (*) 3.98 - 10.04 thou/cmm Platelet Count 100 (*) 182 - 369 thou/cmm Abs. Lymph 0.44 (*) 1.18 - 3.74 thou/cmm Abs. [facility] 0.08 (*) 0.27 - 0.70 thou/cmm All other components within normal limits VENOUS BLOOD GAS, POC(AK) - Abnormal; Notable for the following components: pCO2 (POCT) 40.3 (*) 40.6 - 60.0 mm Hg All other components within normal limits EXPEDITED COVID19 - Abnormal; Notable for the following components: COVID 19 Result GATE WATCH POSITIVE (*) Negative All other components within normal limits HCG QUALITATIVE URINE (AK,AV,EU,FV,HL,TIMMY,MM,SP ) LACTIC ACID,POC(AK) VENOUS BLOOD GAS, POC(AK) LACTIC ACID,POC(AK) MDRD GFR XR CHEST 1V FRONTAL Final Result IMPRESSION: Patchy bilateral airspace disease which may be compatible with viral pneumonia in the appropriate clinical setting. This is less likely pulmonary edema given the lack of findings in the perihilar region. Knee Bolter: MARTIAT Transcribe Date/Time: Mar 25 2020 12:20A Dictated by : ARMANDO LOPEZ MD This examination was interpreted and the report reviewed and electronically signed by: ARMANDO LOPEZ MD on Mar 25 2020 12:21AM EST Procedures ED Course / Clinical Impression Clinical Impressions as of March 25 0232 COVID-19 virus infection Viral pneumonia MDM / Disposition / Plan Assessment: Brice Gomez is a 39 year old female who presents with shortness of breath Differential Diagnosis: PNA, URI, PE, asthma/COPD, ACS, COVID 19 PNA Plan: laboratory monitor COVID19 with precautions CBC/BMP/Lactate 1 L NS Toradol + tylenol ED Course/MDM: Patient arrived hemodynamically stable and in no acute distress. Patient's previous imaging and studies reviewed. PERC Criteria Age >50 (no) HR >100 (yes) Oxygen sat <95 (no) Prior h/o DVT/PE (no) Recent trauma or surgery (no) Hemoptysis (no) Exogenous estrogen (no) Unilateral leg swelling (no) - Based on PERC criteria I believe this patient does not require further workup for PE at this time. Based on patient's workup and presentation I believe that COVID 19 viral PNA is the underlying cause of their symptoms Patient's COVID swab is positive, leukopenic on CBC, mildly elevated PCO2. Plan to admit patient for persistent tachycardia tachypnea in the setting of COVID19 virus. A public health emergency existed at the time of the encounter Pt presented to the ED with fever, chills, cough, shortness of breath, sore throat and myalgias. Upon examination my findings include labored breathing, tachycardia and mild dehydration PPE was utilized. Covid 19 exposure to known positive person: No Flu test is Not indicated Covid 19 test was performed: Yes Results are Positive Patient was: admitted for persisent tachycardiaand suspected Covid 19 SIGNATURE: DO Ruby Daley DO 03/25/20 0238 Bharat Mata 03/26/20 0253 [facility] HISTORY PHYSICALon 0 HISTORY PHYSICAL HNO ID: [id number] Author: Vinicio Eid) [facility] Service: Hospital Medicine Author Type: Physician Type: HANDP Filed: 03/25/2020 9:08 AM Note Text: DEPARTMENT OF HOSPITAL MEDICINE HISTORY AND PHYSICAL EXAM SERVICE DATE: 03/25/2020 SERVICE TIME: 8:52 AM Primary Care Physician: To Longoria DO NIGHT AND WEEKEND COVERAGE: From 7am - 7pm, please call [phone] After 7pm, please call cross cover pager #[phone] Subjective CHIEF COMPLAINT: Fever/Cough/shortness of breath/nausea/generalize d weakness HPI: Patient, a 39-year-old female with past medical history of asthma, and recent diagnosis of Covid 19 as an outpatient about 4 days ago came to the emergency room complaining of fever/worsening exertional shortness of breath/ cough/nausea/worsening generalized weakness. 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 Patient reports her symptoms started about 7 days ago and gradually worsened. She was tested positive about 4 days ago for Covid 19. Her PCP started her on Levaquin ?2 days now. However, her symptoms did not improve. Reports having multiple coughing bouts at home. Unable to bring up phlegm. Reports chest wall pain while coughing. Patient does use albuterol inhaler when necessary but that did not help with her symptoms. No sick contacts at home. Patient also reported off nausea but no vomiting. Reports of constipation. Denies any lightheadedness, dizziness, presyncopal or syncopal episode. Denies any paresthesias episodes. He was generalized weakness. No obvious focal deficits reported. PAST MEDICAL HISTORY Diagnosis Date - Abnormal uterine bleeding 01/31/2013 - Allergic rhinitis, cause unspecified Allergic rhinitis - Depression - Fibrosclerosis of breast - H. pylori infection - Low HDL (under 40) - Migraines - Neck pain, musculoskeletal - FLORENTINO (obstructive sleep apnea) 08/2016 - PMH - PAST MEDICAL HISTORY OF IUD - PMH - PAST MEDICAL HISTORY OF EPISODES OF TACCHYCARDIA DURING - Reactive airway disease - Severe pre-eclampsia, condition or complication Driver general hospitalization - Stone, kidney x2 - Vitamin D deficiency PAST SURGICAL HISTORY Procedure Laterality Date - BREAST ASPIRATION fibroadenoma removal left breast - EYE SURG ANT SGMT PROC UNLISTED Bilateral 01/05/2018 PRK (Photorefractive Keratectomy) - HYSTEROSCOPY WBX WWO D AND C ANDOR POLYPECTOMY 05/2013 polyp - IR BASKET STONE EXTRACTION 2009 - LIGATE FALLOPIAN TUBE Tubal ligation - PAST SURGICAL HISTORY OF x2 - PAST SURGICAL HISTORY OF wisdom teeth - PAST SURGICAL HISTORY OF 05/19/[address] Silveira - STEROTACTIC GUIDE BREAST BX 10/01/12 u/s guidance of left breast FAMILY HISTORY Problem Relation Age of Onset - Allergies Mother - Headache Mother migraine headaches - other (mononucleosis) Mother - other (Fibromyalgia) Mother - Alcohol/Drug Father - Hypertension Maternal Grandmother - Osteoporosis Maternal Grandmother - Cancer Maternal Grandfather colon, hx of tobacco/alcohol abuse - Osteoporosis Paternal Grandmother - other (rheumatoid arthritis) Paternal Grandmother - Cancer Paternal Grandfather esophogeal cancer, hx of tobacco/alcohol abuse - Diabetes Paternal Grandfather - Allergies Sister - Allergies Brother - other (Pineal tumor) Brother Also tremors. - other (rheumatoid arhtritis) Paternal Aunt - No Ocular Disease No Family History Social History Tobacco Use - Smoking status: Never Smoker - Smokeless tobacco: Never Used Substance Use Topics - Alcohol use: Yes Comment: Rarely - Drug use: No HOME MEDICATIONS: Prior to Admission Medications Prescriptions Last Dose Informant Patient Reported? Taking? Cetirizine (ZYRTEC) 10 mg cap Unknown at Unknown time Yes Yes Sig: Take by mouth. EPINEPHrine 0.3 mg/0.3 mL (1:1,000) atIn Unknown at Unknown time No Yes Sig: Inject 0.3 mL subcutaneously as needed. Then seek medical attention immediately. LACTOBACILLUS COMBO NO.6 (PROBIOTIC COMPLEX ORAL) Yes No Sig: Take by mouth. White Petrolatum-Mineral Oil (PURALUBE) 85-15 % oint No No Sig: Use 0.5 Inches in both eyes daily at bedtime. albuterol HFA (PROAIR HFA) 90 mcg/actuation inhaler Unknown at Unknown time No Yes Sig: Inhale 2 Puffs as instructed every 4 hours as needed. buPROPion HCl (WELLBUTRIN SR) 200 mg 12 hr tablet 03/24/2020 at Unknown time No Yes Sig: Take 1 tablet by mouth twice daily. cholecalciferol (VITAMIN D-3) 2,000 unit tablet 03/24/2020 at Unknown time Yes Yes Sig: Take 2,000 Units by mouth once daily. cyclobenzaprine (FLEXERIL) 10 mg tablet Unknown at Unknown time No Yes Sig: Take 1 tablet by mouth every 8 hours as needed. dexamethasone 0.1% 0.1 % ophthalmic solution Unknown at Unknown time No Yes Si Drop twice daily as needed (bilateral ears for itching/rash). dicyclomine (BENTYL) 10 mg capsule 03/24/2020 at Unknown time No Yes Sig: Take 1 capsule by mouth before meals and at bedtime. hyoscyamine sublingual (LEVSIN SL) 0.125 mg subl Unknown at Unknown time No Yes Sig: Take 1-2 tablets under tongue every 4hrs as needed. Max 12 tabs per day. levoFLOXacin (LEVAQUIN) 500 mg tablet Unknown at Unknown time No Yes Sig: Take 1 tablet by mouth once daily for 10 days. multivitamins(DAILY MULTIVITAMIN TAB) 03/24/2020 at Unknown time Yes Yes Sig: Take one(1) tablet daily. omeprazole (PRILOSEC) 20 mg capsule 03/24/2020 at Unknown time No Yes Sig: TAKE 1 CAPSULE BY MOUTH DAILY BEFORE BREAKFAST. 1/2 HR BEFORE MEAL. Facility-Administered Medications: None ALLERGIES Allergen Reactions - Bee Sting Hives Facial edema - Biaxin [Clarithromy* Rash Patient developed a pruritic rash 7 days into course of biaxin and flagyl for H pylori infection. No mucous membrane involvement, exfoliation, fevers or joint pain/swelling. - Celexa [Citalopram] GI Upset - Entex [Phenylephrin* Intolerance Tachycardia - Flagyl [Metronidazo* Rash Patient developed a pruritic rash 7 days into course of biaxin and flagyl for H pylori infection. No mucous membrane involvement, exfoliation, fevers or joint pain/swelling. - Keflex [Cephalexin] Rash - Minocycline Hives - Penicillins Rash, Itching Vishnu Darrick type reaction. REVIEW OF SYSTEM: All ROS are negative except those noted in HPI Objective PHYSICAL EXAM: BP 114/77 Pulse 100 Temp (Src) 99 (Oral) Resp 18 Ht 5' 0 (1.52m) Wt 143 lb 1.3 oz (64.9kg) SpO2 98% LMP 01/13/2018 BMI 27.94 kg/(m2). O2 Therapy: Room Air GENERAL: Alert, lethargic. no distress, cooperative, NAD SKIN: Warm, dry intact, no open lesions, no rashes HEAD/SINUSES: Normocephalic, atraumatic, oral mucosa moist EYES: PERRLA, EOMI NECK: No jugulovenous distention, Supple, no adenopathy LUNGS: Lungs clear to auscultation, no wheezes, ronchi, or rales CARDIAC: Tachycardic, Normal S1 and S2; no rubs, murmurs, or gallops ABDOMEN: Abdomen soft, non-tender, BS normal, No masses or organomegaly EXTREMITIES: Extremities normal, no deformities, edema, clubbing or skin discoloration. NEURO: No obvious gross focal neurological deficits evident at this time. - no chronic fong DATA: Diagnostic tests reviewed for today's visit: Most recent labs and imaging results. CBC: Recent Labs 03/25/20 0148 WBC 2.67* RBC 4.08 HB 11.9 HCT 36.5 PLT 100* MCV 89.5 MCH 29.2 MPV 12.2 RDW 13.3 Coags: No results for input(s): INR, APTT in the last 24 hours. Invalid input(s): PT BMP: Recent Labs 03/25/20 0148 NA 140 K 3.7 CHLOR 103 CO2 23 BUN 9 CREAT 0.67 GLUC 99 CMP: Recent Labs 03/25/20 0148 NA 140 K 3.7 CHLOR 103 CO2 23 BUN 9 CREAT 0.67 GLUC 99 CA 8.4* ANION 14 Cardiac Enzymes: No results for input(s): CK, MB, CKMB, TROPT in the last 24 hours. Liver Function, Amylase, Lipase: No results for input(s): TPROT, ALB, ALT, AST, ALKPHOS, TBILI, AMYLASE, LIPASE, LACTATE in the last 24 hours. MG/PHOS: No results for input(s): MG, P in the last 24 hours. Renal Panel: Recent Labs 03/25/20 0148 CREAT 0.67 BUN 9 GLUC 99 CA 8.4* CHLOR 103 K 3.7 CO2 23 NA 140 Heme: No results for input(s): RETICP, ABSRETIC, LD, CHARLI, FE, TIBC, TRANSFERSAT in the last 24 hours. Assessment/Plan Sepsis secondary to Covid 19 pneumonia -Present on admission - X-ray chest suggestive of bilateral patchy opacities -Lactate level I.0 - Superimposed bacterial infection cannot be completely ruled out. Start empiric IV antibiotic Levaquin - Start IV hydration - Check inflammatory markers including ferritin, CRP d-dimer, LDH. Monitor every 48 hours - Check pro-calcitonin level - Send sputum culture, urine Legionella and streptococcal antigen - Send blood cultures ?2 -Continue supportive care. Tylenol/Zofran when necessary - continue albuterol every 4 hrs - Telemetry monitoring - Monitor his status closely. Currently saturating well on room air. - ID consult Asthma - Stable -Continue albuterol inhaler DVT prophylaxis -SCDs VTE Prophylaxis: Pneumatic Compression Device Lines, Drains, and Airways Line Peripheral 03/25/20 0143 Short Left Antecubital 20 Gauge less than 1 day Drain Drain Straight Cath 06/04/13 0745 14 [place] 2486 days Reviewed lines and needs to be continued: REASONS: Intravenous fluids and Intravenous antibiotics Disposition: Home when medically stable Functional Status Prior to Admit: Independent Plan of care discussed with: Provider, RN, Patient and Family/Significant Other: , Rodrigo Code status: Full SIGNATURE: Vinicio Hnanon MD PATIENT NAME: Brice Gomez DATE: March 25, 2020 TIME: 8:52 AM PAGER/CONTACT #: [phone] Disclaimer: Portions of this note may have been generated using [employer] voice recognition software. Reasonable efforts were made to correct any dictation errors that resulted due to the programming of this software but some may still be present. [facility] NURSING PROGon 03-25-2020 NURSING PROG HNO ID: [id number] Author: Lisy (Rn) DON Collazo Service: Nursing Author Type: Registered Nurse Type: Nursing Progress Note Filed: 03/25/2020 7:23 PM Note Text: Nursing Progress Note Patient Name: Brice Gomez Patient Location: [place] [address] [address] 02-18 Pt asking about D. Dimer being elevated and why a chest CT is not being done. Pt also requesting something for anxiety, pt appears very anxious. Paged Dr. Hannon. He explained pt is not concern for PE at this time due to risk factors, and CT dye would be more harm to her at this time. He stated that he would order Atarax for this pt for her anxiety. Will continue to monitor. This note was completed by: Lisy Collazo RN [facility] NUTRITIONon 03-25-2020 NUTRITION HNO ID: [id number] Author: Elizabeth Chavez Service: Nutrition Therapy Author Type: Registered Dietitian Type: Nutrition Filed: 03/25/2020 12:56 PM Note Text: NUTRITION THERAPY INITIAL ASSESSMENT SERVICE DATE: 03/25/2020 SERVICE TIME: 12:48 PM Nutrition Assessment: Recommended Malnutrition Diagnosis: Mild Protein-Calorie Malnutrition In the context of: Acute Illness or Injury Based on: Insufficient Energy Intake Nutrition Diagnosis: Problem: Suboptimal protein/energy intake Related to: Inability to consume sufficient nutrients As evidenced by: Medical condition;Patient/family self-report Estimated kilocalorie needs: 9030-6769 Calorie Calculation Method: 20-25 kcals/kg Estimated protein needs (grams): 85-111 Grams protein determined by: 1.3-1.7 g/kg Care Plan: Continue current diet Supplements: Ensure Max Monitor and Evaluation: Monitor fluid/electrolyte balance;Meet greater than 75% of estimated needs;Monitor labs, I/Os, vital signs, weight --- Reason for Assessment: MST HPI: 39 year old female with asthma, admitted with COVID-19. Symptoms started 01/31 per MD virtual visit 02/16. PAST MEDICAL HISTORY Diagnosis Date - Abnormal uterine bleeding 01/31/2013 - Allergic rhinitis, cause unspecified Allergic rhinitis - Depression - Fibrosclerosis of breast - H. pylori infection - Low HDL (under 40) - Migraines - Neck pain, musculoskeletal - FLORENTINO (obstructive sleep apnea) 08/2016 - PMH - PAST MEDICAL HISTORY OF IUD - PMH - PAST MEDICAL HISTORY OF EPISODES OF TACCHYCARDIA DURING - Reactive airway disease - Severe pre-eclampsia, condition or complication Driver general hospitalization - Stone, kidney x2 - Vitamin D deficiency Intake History: Nutrition Intake Prior to Admission: Less than 75% estimated energy needs greater than or equal to 1 month Current Diet: DIET REGULAR Anthropometrics: Height: 152.4 cm (5') Weight: 64.9 kg (143 lb 1.3 oz) Dosing Weight: 65 kg (143 lb 4.8 oz) Body mass index is 27.94 kg/m?. Overweight Weight change percentage over time: Insignificant weight meter changes records clerk the past > 6 months Last Wt 03/25/20 : 64.9 kg (143 lb 1.3 oz) - bed 09/04/19 : 64.4 kg (142 lb) 06/03/19 : 64.4 kg (142 lb) 05/14/19 : 65.8 kg (145 lb) 08/06/18 : 62.9 kg (138 lb 9.6 oz) 01/24/18 : 62.6 kg (138 lb) 08/15/17 : 60.8 kg (134 lb) 07/31/17 : 61.7 kg (136 lb) 07/19/17 : 60.8 kg (134 lb) 03/21/17 : 67.1 kg (148 lb) 02/20/17 : 66.7 kg (147 lb) 01/28/17 : 68.5 kg (151 lb) 04/22/16 : 71.8 kg (158 lb 3.2 oz) Physical Exam: Reason NFPE not performed: (COVID+) Edema/Ascites: No edema GI Symptoms: Anorexia Functional Status: Not related to malnutrition status Potential Signs of Inflammation: Microbiologic cultures;Chronic condition SIGNATURE: Elizabeth Chavez RD, LD PATIENT NAME: Brice Gomez DATE: March 25, 2020 TIME: 12:48 PM PAGER: [phone] [facility] Lab Report: (P) PAP I-G HPV Hi Riskon 08-30-2017 COMM . Invalid Interpretation Code . [facility] [place] Office Visit: est annualon 1 Fall risk assessment No Invalid Interpretation Code [facility] Tobacco smoking status ALIS Never Invalid Interpretation Code [facility] Tobacco smoking status [facility] Never smoker Invalid Interpretation Code [facility] Vital Signs Date Time Vital Sign Value Performing Clinician Facility 07-06-2025 10:10040 Body height 152.[address] To Longoria DO Work Phone: [facility] 07-06-2025 10:10-0400 Body mass index (BMI) [Ratio] 27.1 kg/m2 Dr. To Longoria DO Work Phone: 3(694)039-092575 [place] [address] 07-06-2025 10:10-0400 Body temperature 98.5 [degF] Dr. To Longoria DO Work Phone: 3(670)632-371175 [place] [address] 07-06-2025 10:10-0400 Body weight 63.[address] To Longoria DO Work Phone: 9(210)212-043834 [place] [address] 07-06-2025 10:10-0400 Diastolic blood pressure 86 mm[Hg] Dr. To Longoria DO Work Phone: 8(858)699-613134 [place] [address] 07-06-2025 10:10-0400 Heart rate 94 /min Dr. To Longoria DO Work Phone: 1(777)485-511734 [place] [address] 07-06-2025 10:10-0400 SaO2% (BldA) [Mass fraction] 98 % Dr. To Longoria DO Work Phone: 1(413)855-393275 [place] [address] 07-06-2025 10:10-0400 Systolic blood pressure 132 mm[Hg] Dr. To Longoria DO Work Phone: 1(546)006-246934 [place] [address] 05-16-2025 15:54-0400 Body height 152.[address] To Longoria DO Work Phone: 5(916)659-270434 [place] [address] 05-16-2025 15:54-0400 Body mass index (BMI) [Ratio] 29 kg/m2 Dr. To Longoria DO Work Phone: 6(813)563-260675 [place] [address] 05-16-2025 15:54-0400 Body weight 67.[address] To Longoria DO Work Phone: 7(672)473-332634 [place] [address] 05-16-2025 15:54-0400 Diastolic blood pressure 88 mm[Hg] Dr. To Longoria DO Work Phone: 9(380)512-238634 [place] [address] 05-16-2025 15:54-0400 Systolic blood pressure 125 mm[Hg] Dr. To Longoria DO Work Phone: 2(535)570-230134 [place] [address] 03-25-2025 15:17-0400 Body mass index (BMI) [Ratio] 30.04 kg/m2 To Mayon DO Work Phone: [facility] 03-25-2025 15:17-0400 Body temperature 98.4 [degF] To Lisarison DO Work Phone: [facility] 03-25-2025 15:17-0400 Body weight 69.4 kg To Lisarison DO Work Phone: [facility] 03-25-2025 15:17-0400 Diastolic blood pressure 80 mm[Hg] To Lisarison DO Work Phone: [facility] 03-25-2025 15:17-0400 Heart rate 80 /min To Longoria DO Work Phone: [facility] 03-25-2025 15:17-0400 Respiratory rate 12 /min To Longoria DO Work Phone: [facility] 03-25-2025 15:17-0400 Systolic blood pressure 130 mm[Hg] To Longoria DO Work Phone: [facility] 01-08-2025 16:15-0500 Body temperature 98.9 [degF] Dr. To Longoria DO Work Phone: [facility] 01-08-2025 16:15-0500 Diastolic blood pressure 84 mm[Hg] Dr. To Longoria DO Work Phone: [facility] 01-08-2025 16:15-0500 Heart rate 91 /min Dr. To Longoria DO Work Phone: [facility] 01-08-2025 16:15-0500 SaO2% (BldA) [Mass fraction] 99 % Dr. To Longoria DO Work Phone: [facility] 01-08-2025 16:15-0500 Systolic blood pressure 124 mm[Hg] Dr. To Longoria DO Work Phone: 0(629)841-443575 [place] [address] 12-16-2024 11:12-0500 Body height 152.[address] To Longoria DO Work Phone: [facility] 12-16-2024 11:05-0500 Body mass index (BMI) [Ratio] 29.5 kg/m2 Dr. To Longoria DO Work Phone: [facility] 12-16-2024 11:05-0500 Body weight 68.[address] To Longoria DO Work Phone: [facility] 12-16-2024 11:05-0500 Diastolic blood pressure 72 mm[Hg] Dr. To Longoria DO Work Phone: 0(748)293-290075 [place] [address] 12-16-2024 11:05-0500 Systolic blood pressure 117 mm[Hg] Dr. To Longoria DO Work Phone: [facility] 09-20-2024 09:04-0400 Diastolic blood pressure 83 mm[Hg] To Longoria DO Work Phone: [facility] Comment on above: Dm Bp Average 09-20-2024 09:04-0400 Systolic blood pressure 133 mm[Hg] To Lisarison DO Work Phone: [facility] Comment on above: Dm Bp Average 09-20-2024 08:47-0400 Body mass index (BMI) [Ratio] 29.84 kg/m2 To Lisarison DO Work Phone: [facility] 09-20-2024 08:47-0400 Body temperature 97.39 [degF] To Lisarison DO Work Phone: [facility] 09-20-2024 08:47-0400 Body weight 68.95 kg To Longoria DO Work Phone: [facility] 09-20-2024 08:47-0400 Heart rate 80 /min To Lisarison DO Work Phone: [facility] 09-20-2024 08:47-0400 Respiratory rate 12 /min To Longoria DO Work Phone: [facility] 07-09-2024 15:35-0400 Body mass index (BMI) [Ratio] 29.25 kg/m2 To Longoria DO Work Phone: [facility] 07-09-2024 15:35-0400 Body temperature 97.2 [degF] To Longoria DO Work Phone: [facility] 07-09-2024 15:35-0400 Body weight 67.59 kg To Longoria DO Work Phone: [facility] 07-09-2024 15:35-0400 Diastolic blood pressure 70 mm[Hg] To Longoria DO Work Phone: [facility] 07-09-2024 15:35-0400 Heart rate 80 /min To Longoria DO Work Phone: [facility] 07-09-2024 15:35-0400 Respiratory rate 16 /min To Longoria DO Work Phone: [facility] 07-09-2024 15:35-0400 Systolic blood pressure 120 mm[Hg] To Longoria DO Work Phone: [facility] 06-18-2024 14:00-0400 Body mass index (BMI) [Ratio] 29.06 kg/m2 To Longoria DO Work Phone: [facility] 06-18-2024 14:00-0400 Body temperature 99.19 [degF] To Longoria DO Work Phone: [facility] 06-18-2024 14:00-0400 Body weight 67.13 kg To Longoira DO Work Phone: [facility] 06-18-2024 14:00-0400 Diastolic blood pressure 80 mm[Hg] To Longoria DO Work Phone: [facility] 06-18-2024 14:00-0400 Heart rate 88 /min To Longoria DO Work Phone: [facility] 06-18-2024 14:00-0400 Respiratory rate 12 /min To Longoria DO Work Phone: [facility] 06-18-2024 14:00-0400 Systolic blood pressure 124 mm[Hg] To Longoria DO Work Phone: [facility] 06-03-2024 07:47-0400 Diastolic blood pressure 82 mm[Hg] To Longoria DO Work Phone: [facility] 06-03-2024 07:47-0400 Heart rate 82 /min To Longoria DO Work Phone: [facility] 06-03-2024 07:47-0400 Systolic blood pressure 122 mm[Hg] To Longoria DO Work Phone: [facility] 05-14-2024 12:57-0400 Body height 152 cm To Longoria DO Work Phone: [facility] 05-14-2024 12:57-0400 Body mass index (BMI) [Ratio] 29.45 kg/m2 To Longoria DO Work Phone: [facility] 05-14-2024 12:57-0400 Body temperature 98.91 [degF] To Longoria DO Work Phone: [facility] 05-14-2024 12:57-0400 Body weight 68.04 kg To Longoria DO Work Phone: [facility] 05-14-2024 12:57-0400 Diastolic blood pressure 80 mm[Hg] To Longoria DO Work Phone: [facility] 05-14-2024 12:57-0400 Heart rate 80 /min To Longoria DO Work Phone: [facility] 05-14-2024 12:57-0400 Respiratory rate 16 /min To Longoria DO Work Phone: [facility] 05-14-2024 12:57-0400 Systolic blood pressure 124 mm[Hg] To Longoria DO Work Phone: [facility] 05-06-2024 09:56-0400 Diastolic blood pressure 72 mm[Hg] Kimber Jorge APRN.PALS NURSE Work Phone: [facility] 05-06-2024 09:56-0400 Heart rate 90 /min Kimber Jorge STEAM PRESSURE CHAMBER OPERATOR.PALS NURSE Work Phone: [facility] 05-06-2024 09:56-0400 Respiratory rate 16 /min Kimber Jorge STEAM PRESSURE CHAMBER OPERATOR.PALS NURSE Work Phone: [facility] 05-06-2024 09:56-0400 SaO2% (BldA) [Mass fraction] 99 % Kimber Jorge STEAM PRESSURE CHAMBER OPERATOR.PALS NURSE Work Phone: [facility] 05-06-2024 09:56-0400 Systolic blood pressure 118 mm[Hg] Kimber Jorge STEAM PRESSURE CHAMBER OPERATOR.PALS NURSE Work Phone: [facility] 11-14-2023 16:09-0500 Body temperature 97.6 [degF] Dr. To Longoria Work Phone: 4(814)574-846475 [place] [address] 11-14-2023 16:09-0500 Diastolic blood pressure 78 mm[Hg] Dr. To Longoria Work Phone: 3(972)689-640875 [place] [address] 11-14-2023 16:09-0500 Heart rate 80 /min Dr. To Longoria Work Phone: 0(928)167-897175 [place] [address] 11-14-2023 16:09-0500 Respiratory rate 16 /min Dr. To Longoria Work Phone: [facility] 11-14-2023 16:09-0500 SaO2% (BldA) [Mass fraction] 97 % Dr. To Longoria Work Phone: [facility] 11-14-2023 16:09-0500 Systolic blood pressure 120 mm[Hg] Dr. To Longoria Work Phone: [facility] 11-14-2023 15:55-0500 Inhaled oxygen flow rate 2 L/min Dr. To Longoria Work Phone: [facility] 11-14-2023 14:08-0500 Body height 152.[address] To Longoria Work Phone: 9(579)994-570775 [place] [address] 11-14-2023 14:08-0500 Body mass index (BMI) [Ratio] 29.4 kg/m2 Dr. To Longoria Work Phone: [facility] 11-14-2023 14:08-0500 Body weight 68.[address] To Longoria Work Phone: [facility] 10-27-2023 08:30-0500 Body temperature 97.4 [degF] Dr. To Longoria Work Phone: 5(293)547-207275 [place] [address] 10-27-2023 08:30-0500 Diastolic blood pressure 88 mm[Hg] Dr. To Longoria Work Phone: 1(682)181-820275 [place] [address] 10-27-2023 08:30-0500 Heart rate 82 /min Dr. To Longoria Work Phone: 5(005)054-777034 [place] [address] 10-27-2023 08:30-0500 Respiratory rate 18 /min Dr. To Longoria Work Phone: 4(658)823-179134 [place] [address] 10-27-2023 08:30-0500 SaO2% (BldA) [Mass fraction] 18 % Dr. To Longoria Work Phone: 5(375)273-444034 [place] [address] 10-27-2023 08:30-0500 Systolic blood pressure 131 mm[Hg] Dr. To Longoria Work Phone: [facility] 10-03-2023 15:29-0500 Body temperature 98.1 [degF] To Longoria DO Work Phone: [facility] 10-03-2023 15:29-0500 Body weight 67.59 kg To Longoria DO Work Phone: [facility] 10-03-2023 15:29-0500 Diastolic blood pressure 60 mm[Hg] To Longoria DO Work Phone: [facility] 10-03-2023 15:29-0500 Heart rate 80 /min To Longoria DO Work Phone: [facility] 10-03-2023 15:29-0500 Respiratory rate 12 /min To Lonogria DO Work Phone: 9(750)364-619253 [place] [address] 10-03-2023 15:29-0500 Systolic blood pressure 110 mm[Hg] To Longoria DO Work Phone: 2(089)604-165772 [place] [address] 09-22-2023 14:46-0400 Body height 152.[address] To Longoria Work Phone: 9(084)495-704034 [place] [address] 09-22-2023 14:46-0400 Body mass index (BMI) [Ratio] 28.9 kg/m2 Dr. To Longoria Work Phone: 7(450)010-172934 [place] [address] 09-22-2023 14:46-0400 Body temperature 98.2 [degF] Dr. To Longoria Work Phone: 4(348)712-698734 [place] [address] 09-22-2023 14:46-0400 Body weight 67.[address] To Longoria Work Phone: 9(951)130-179734 [place] [address] 09-22-2023 14:46-0400 Diastolic blood pressure 77 mm[Hg] Dr. To Longoria Work Phone: 8(064)063-155434 [place] [address] 09-22-2023 14:46-0400 Heart rate 91 /min Dr. To Longoria Work Phone: 1(563)526-827534 [place] [address] 09-22-2023 14:46-0400 Respiratory rate 16 /min Dr. To Longoria Work Phone: 2(025)372-039234 [place] [address] 09-22-2023 14:46-0400 SaO2% (BldA) [Mass fraction] 96 % Dr. To Lnogoria Work Phone: 5(850)898-456634 [place] [address] 09-22-2023 14:46-0400 Systolic blood pressure 117 mm[Hg] Dr. To Longoria Work Phone: 6(221)488-843234 [place] [address] 09-21-2023 08:05-0400 Body temperature 97.5 [degF] Dr. To Longoria Work Phone: 5(766)539-183534 [place] [address] 09-21-2023 08:05-0400 Diastolic blood pressure 81 mm[Hg] Dr. To Longoria Work Phone: 7(653)694-670834 [place] [address] 09-21-2023 08:05-0400 Heart rate 70 /min Dr. To Longoria Work Phone: 2(990)461-728334 [place] [address] 09-21-2023 08:05-0400 Respiratory rate 16 /min Dr. To Longoria Work Phone: 6(099)747-786234 [place] [address] 09-21-2023 08:05-0400 SaO2% (BldA) [Mass fraction] 100 % Dr. To Longoria Work Phone: 0(336)622-035434 [place] [address] 09-21-2023 08:05-0400 Systolic blood pressure 115 mm[Hg] Dr. To Longoria Work Phone: 8(845)721-982534 [place] [address] 09-21-2023 06:28-0400 Body height 152.[address] To Longoria Work Phone: 0(599)965-011634 [place] [address] 09-21-2023 06:28-0400 Body mass index (BMI) [Ratio] 28.4 kg/m2 Dr. To Longoria Work Phone: 4(719)365-871634 [place] [address] 09-21-2023 06:28-0400 Body weight [address] To Longoria Work Phone: 1(128)521-879934 [place] [address] 09-05-2023 13:54-0400 Body height 152.[address] To Longoria Work Phone: 0(409)867-087034 [place] [address] 09-05-2023 13:44-0400 Body mass index (BMI) [Ratio] 28.8 kg/m2 Dr. To Longoria Work Phone: 4(068)125-267734 [place] [address] 09-05-2023 13:44-0400 Body weight 66.[address] To Longoria Work Phone: 7(310)523-324134 [place] [address] 09-05-2023 13:44-0400 Diastolic blood pressure 62 mm[Hg] Dr. To Longoria Work Phone: 2(328)912-076834 [place] [address] 09-05-2023 13:44-0400 Systolic blood pressure 110 mm[Hg] Dr. To Longoria Work Phone: 0(162)049-223534 [place] [address] 08-28-2023 15:31-0400 Body mass index (BMI) [Ratio] 28.9 kg/m2 Dr. To Longoria Work Phone: 9(604)270-526234 [place] [address] 08-28-2023 15:31-0400 Body weight 67.[address] To Longoria Work Phone: 3(224)410-859734 [place] [address] 08-28-2023 15:31-0400 Diastolic blood pressure 87 mm[Hg] Dr. To Longoria Work Phone: 8(799)992-446134 [place] [address] 08-28-2023 15:31-0400 Heart rate 91 /min Dr. To Longoria Work Phone: 0(263)934-009234 [place] [address] 08-28-2023 15:31-0400 Respiratory rate 18 /min Dr. To Longoria Work Phone: 8(187)108-241834 [place] [address] 08-28-2023 15:31-0400 SaO2% (BldA) [Mass fraction] 99 % Dr. To Longoria Work Phone: 8(399)190-368834 [place] [address] 08-28-2023 15:31-0400 Systolic blood pressure 133 mm[Hg] Dr. To Longoria Work Phone: 2(549)928-429934 [place] [address] 06-18-2023 12:40-0400 Body mass index (BMI) [Ratio] 30 kg/m2 Dr. To Longoria Work Phone: 4(258)201-033234 [place] [address] 06-18-2023 12:40-0400 Body temperature 97.5 [degF] Dr. To Longoria Work Phone: 3(146)723-544334 [place] [address] 06-18-2023 12:40-0400 Body weight 69.[address] To Longoria Work Phone: 1(181)113-153534 [place] [address] 06-18-2023 12:40-0400 Diastolic blood pressure 86 mm[Hg] Dr. To Longoria Work Phone: 2(001)739-235134 [place] [address] 06-18-2023 12:40-0400 Heart rate 95 /min Dr. To Longoria Work Phone: 8(976)115-402934 [place] [address] 07-30-2023 12:40-0400 Respiratory rate 16 /min Dr. To Longoria Work Phone: 2(069)288-330934 [place] [address] 06-18-2023 12:40-0400 SaO2% (BldA) [Mass fraction] 99 % Dr. To Longoria Work Phone: 4(650)636-150334 [place] [address] 06-18-2023 12:40-0400 Systolic blood pressure 128 mm[Hg] Dr. To Longoria Work Phone: 1(479)238-878834 [place] [address] 02-16-2023 07:13-0400 Body temperature 97 [degF] Dr. To Longoria Work Phone: 3(145)981-822334 [place] [address] 02-16-2023 07:13-0400 Diastolic blood pressure 92 mm[Hg] Dr. To Longoria Work Phone: 2(720)016-884434 [place] [address] 02-16-2023 07:13-0400 Heart rate 82 /min Dr. To Longoria Work Phone: 7(202)390-567634 [place] [address] 02-16-2023 07:13-0400 Respiratory rate 18 /min Dr. To Longoria Work Phone: 6(157)148-502234 [place] [address] 02-16-2023 07:13-0400 SaO2% (BldA) [Mass fraction] 98 % Dr. To Longoria Work Phone: 5(906)960-310334 [place] [address] 02-16-2023 07:13-0400 Systolic blood pressure 140 mm[Hg] Dr. To Longoria Work Phone: 8(041)070-598334 [place] [address] 02-16-2023 05:47-0400 Body height 152.[address] To Longoria Work Phone: 2(928)961-370034 [place] [address] 02-16-2023 05:47-0400 Body mass index (BMI) [Ratio] 29.5 kg/m2 Dr. To Longoria Work Phone: 1(629)620-741334 [place] [address] 02-16-2023 05:47-0400 Body weight 68.[address] To Longoria Work Phone: 4(499)282-907634 [place] [address] 01-19-2023 14:22-0500 Body weight 68.95 kg Estefania Joyce MD Work Phone: [facility] 01-19-2023 14:22-0500 Diastolic blood pressure 51 mm[Hg] Estefania Joyce MD Work Phone: [facility] 01-19-2023 14:22-0500 Heart rate 84 /min Estefania Joyce MD Work Phone: [facility] 01-19-2023 14:22-0500 SaO2% (BldA) [Mass fraction] 98 % Estefania Joyce MD Work Phone: [facility] 01-19-2023 14:22-0500 Systolic blood pressure 119 mm[Hg] Estefania Joyce MD Work Phone: [facility] 01-11-2023 19:17-0500 Body temperature 98.29 [degF] To Longoria DO Work Phone: [facility] 01-11-2023 19:17-0500 Body weight 68.95 kg To Longoria DO Work Phone: [facility] 01-11-2023 19:17-0500 Diastolic blood pressure 60 mm[Hg] To Longoria DO Work Phone: [facility] 01-11-2023 19:17-0500 Heart rate 76 /min To Longoria DO Work Phone: [facility] 01-11-2023 19:17-0500 Respiratory rate 16 /min To Longorai DO Work Phone: [facility] 01-11-2023 19:17-0500 Systolic blood pressure 120 mm[Hg] To Longoria DO Work Phone: [facility] 11-22-2022 15:04-0500 Diastolic blood pressure 90 mm[Hg] Kimber Jorge APRN.PALS NURSE Work Phone: [facility] 11-22-2022 15:04-0500 Heart rate 84 /min Kimber Jorge APRN.PALS NURSE Work Phone: [facility] 11-22-2022 15:04-0500 Respiratory rate 18 /min Kimber Jorge STEAM PRESSURE CHAMBER OPERATOR.PALS NURSE Work Phone: [facility] 11-22-2022 15:04-0500 Systolic blood pressure 128 mm[Hg] Kimber Jorge STEAM PRESSURE CHAMBER OPERATOR.PALS NURSE Work Phone: [facility] 11-07-2022 18:25-0500 Body temperature 98.3 [degF] Dr. To Longoria Work Phone: [facility] 11-07-2022 18:25-0500 Diastolic blood pressure 83 mm[Hg] Dr. To Longoria Work Phone: [facility] 11-07-2022 18:25-0500 Heart rate 88 /min Dr. To Longoria Work Phone: [facility] 11-07-2022 18:25-0500 Respiratory rate 18 /min Dr. To Longoria Work Phone: [facility] 11-07-2022 18:25-0500 SaO2% (BldA) [Mass fraction] 100 % Dr. To Longoria Work Phone: [facility] 11-07-2022 18:25-0500 Systolic blood pressure 146 mm[Hg] Dr. To Longoria Work Phone: [facility] 11-07-2022 14:09-0500 Body height 152.[address] To Longoria Work Phone: [facility] 11-07-2022 14:09-0500 Body mass index (BMI) [Ratio] 30 kg/m2 Dr. To Longoria Work Phone: [facility] 11-07-2022 14:09-0500 Body weight 69.[address] To Longoria Work Phone: [facility] 10-29-2022 12:03-0500 Body temperature 98.29 [degF] Torie Arceo APRN.PALS NURSE Work Phone: [facility] 10-29-2022 12:03-0500 Body weight 70.31 kg Torie Praisler-Wood STEAM PRESSURE CHAMBER OPERATOR.PALS NURSE Work Phone: [facility] 10-29-2022 12:03-0500 Diastolic blood pressure 98 mm[Hg] Torie Praisler-Wood STEAM PRESSURE CHAMBER OPERATOR.PALS NURSE Work Phone: [facility] 10-29-2022 12:03-0500 Heart rate 102 /min Torie Praisler-Wood STEAM PRESSURE CHAMBER OPERATOR.PALS NURSE Work Phone: [facility] 10-29-2022 12:03-0500 Respiratory rate 16 /min Otrie Praisler-Wood STEAM PRESSURE CHAMBER OPERATOR.PALS NURSE Work Phone: [facility] 10-29-2022 12:03-0500 SaO2% (BldA) [Mass fraction] 99 % Torie Praisler-Wood STEAM PRESSURE CHAMBER OPERATOR.PALS NURSE Work Phone: [facility] 10-29-2022 12:03-0500 Systolic blood pressure 160 mm[Hg] Torie Praisler-Wood STEAM PRESSURE CHAMBER OPERATOR.PALS NURSE Work Phone: [facility] 10-27-2022 07:59-0500 Body temperature 98.01 [degF] Zaki Pendlebury STEAM PRESSURE CHAMBER OPERATOR.PALS NURSE Work Phone: [facility] 10-27-2022 07:59-0500 Body weight 69.31 kg Zaki Pendlebury STEAM PRESSURE CHAMBER OPERATOR.PALS NURSE Work Phone: [facility] 10-27-2022 07:59-0500 Diastolic blood pressure 78 mm[Hg] Zaki Pendlebury STEAM PRESSURE CHAMBER OPERATOR.PALS NURSE Work Phone: [facility] 10-27-2022 07:59-0500 Heart rate 115 /min Zaki Pendlebury STEAM PRESSURE CHAMBER OPERATOR.PALS NURSE Work Phone: [facility] 10-27-2022 07:59-0500 Respiratory rate 18 /min Zaki Pendlebury STEAM PRESSURE CHAMBER OPERATOR.PALS NURSE Work Phone: [facility] 10-27-2022 07:59-0500 SaO2% (BldA) [Mass fraction] 100 % Zaki Pendlebury STEAM PRESSURE CHAMBER OPERATOR.PALS NURSE Work Phone: [facility] 10-27-2022 07:59-0500 Systolic blood pressure 132 mm[Hg] Zaki Santosh BRIGHTPALS NURSE Work Phone: [facility] 10-21-2022 14:55-0500 Body temperature 98.4 [degF] Dr. To Longoria Work Phone: [facility] 10-21-2022 14:55-0500 Diastolic blood pressure 90 mm[Hg] Dr. To Longoria Work Phone: [facility] 10-21-2022 14:55-0500 Heart rate 105 /min Dr. To Longoria Work Phone: [facility] 10-21-2022 14:55-0500 Respiratory rate 18 /min Dr. To Longoria Work Phone: [facility] 10-21-2022 14:55-0500 SaO2% (BldA) [Mass fraction] 99 % Dr. To Longoria Work Phone: [facility] 10-21-2022 14:55-0500 Systolic blood pressure 122 mm[Hg] Dr. To Longoria Work Phone: [facility] 10-11-2022 16:35-0500 Body temperature 97.5 [degF] To Longoria DO Work Phone: [facility] 10-11-2022 16:35-0500 Body weight 69.4 kg To Lisarison DO Work Phone: [facility] 10-11-2022 16:35-0500 Diastolic blood pressure 80 mm[Hg] To Lisarison DO Work Phone: [facility] 10-11-2022 16:35-0500 Heart rate 80 /min To Longoria DO Work Phone: [facility] 10-11-2022 16:35-0500 Respiratory rate 16 /min To Lisarison DO Work Phone: [facility] 10-11-2022 16:35-0500 Systolic blood pressure 120 mm[Hg] To Longoria DO Work Phone: [facility] 09-08-2022 17:33-0400 Body temperature 98.2 [degF] Romana Athy PA-C Work Phone: [facility] 09-08-2022 17:33-0400 Body weight 70.31 kg Romana Athy PA-C Work Phone: [facility] 09-08-2022 17:33-0400 Diastolic blood pressure 82 mm[Hg] Romana Athy PA-C Work Phone: [facility] 09-08-2022 17:33-0400 Heart rate 80 /min Romana Athy PA-C Work Phone: [facility] 09-08-2022 17:33-0400 Respiratory rate 16 /min Romana Athy PA-C Work Phone: [facility] 09-08-2022 17:33-0400 SaO2% (BldA) [Mass fraction] 98 % Romana Athy PA-C Work Phone: [facility] 09-08-2022 17:33-0400 Systolic blood pressure 132 mm[Hg] Romana Athy PA-C Work Phone: [facility] 08-10-2022 19:24-0400 Body temperature 98.4 [degF] To Longoria DO Work Phone: [facility] 08-10-2022 19:24-0400 Body weight 72.58 kg To Longoria DO Work Phone: [facility] 08-10-2022 19:24-0400 Diastolic blood pressure 70 mm[Hg] To Longoria DO Work Phone: [facility] 08-10-2022 19:24-0400 Heart rate 80 /min To Longoria DO Work Phone: [facility] 08-10-2022 19:24-0400 Respiratory rate 16 /min To Longoria DO Work Phone: [facility] 08-10-2022 19:24-0400 Systolic blood pressure 110 mm[Hg] To Longoria DO Work Phone: [facility] 06-22-2022 09:58-0400 Body height 152.[address] To Longoria Work Phone: [facility] Work Phone: 06-22-2022 09:53-0400 Body mass index (BMI) [Ratio] 30.8 kg/m2 Dr. To Longoria Work Phone: [facility] Work Phone: 06-22-2022 09:53-0400 Body weight 71.[address] To Longoria Work Phone: [facility] Work Phone: 06-22-2022 09:53-0400 Diastolic blood pressure 70 mm[Hg] Dr. To Longoria Work Phone: [facility] Work Phone: 06-22-2022 09:53-0400 Heart rate 72 /min Dr. To Longoria Work Phone: [facility] Work Phone: 06-22-2022 09:53-0400 Respiratory rate 20 /min Dr. To Longoria Work Phone: [facility] Work Phone: 06-22-2022 09:53-0400 Systolic blood pressure 120 mm[Hg] Dr. To Longoria Work Phone: [facility] Work Phone: 03-23-2022 11:25-0400 Body mass index (BMI) [Ratio] 30.8 kg/m2 Dr. To Longoria Work Phone: [facility] Work Phone: 03-23-2022 11:25-0400 Body weight 71.[address] To Longoria Work Phone: [facility] Work Phone: 03-23-2022 11:25-0400 Diastolic blood pressure 73 mm[Hg] Dr. To Longoria Work Phone: [facility] Work Phone: 03-23-2022 11:25-0400 Heart rate 73 /min Dr. To Longoria Work Phone: [facility] Work Phone: 03-23-2022 11:25-0400 Respiratory rate 18 /min Dr. To Longoria Work Phone: [facility] Work Phone: 03-23-2022 11:25-0400 SaO2% (BldA) [Mass fraction] 100 % Dr. To Longoria Work Phone: [facility] Work Phone: 03-23-2022 11:25-0400 Systolic blood pressure 110 mm[Hg] Dr. To Longoria Work Phone: [facility] Work Phone: 11-24-2020 13:12-0500 BMI (Body Mass Index) 30.47 kg/m2 Aman Hank CT-Hrguaii-Hzqexdj 2099 Work Phone: 11-24-2020 13:12-0500 Body weight 70.76 kg Aman Hank PV-Vgkmzmr-Npcdj 2099 Work Phone: 11-24-2020 13:12-0500 BP Diastolic 74 mm[Hg] Aman Hank UR-Cntnzzr-Wehyd 2099 Work Phone: 11-24-2020 13:12-0500 BP Systolic 123 mm[Hg] Aman Hank DS-Yogmcms-Lqnls 2099 Work Phone: 11-24-2020 13:12-0500 BSA (Body Surface Area) 1.68 m2 Aman Hank LU-Brvdqtt-Wzjjcql 2099 Work Phone: 11-24-2020 13:12-0500 Height 152.4 cm Aman Woodz TX-Xdwhjzr-Zbglk ll 2099 Work Phone: 11-24-2020 13:12-0500 Pulse (Heart Rate) 76 /min Aman Woodz ND-Fxlzzfn-Tl lwell 2099 Work Phone: 08-24-2017 09:01-0400 BMI (Body Mass Index) 26.87 kg/m2 Geri Ng NP [facility] [place] 08-24-2017 09:01-0400 Body Temperature 98.1 [degF] Geri Ng GATE WATCH [facility] [place] 08-24-2017 09:01-0400 BP Diastolic 62 mm[Hg] Geri Ng GATE WATCH [facility] men's [facility] [place] 08-24-2017 09:01-0400 BP Systolic 94 mm[Hg] Geri Ng GATE WATCH [facility][1]'s [facility] [place] 08-24-2017 09:01-0400 Height 152.4 cm Geri Ng NP [facility][1]'s [facility] [place] 08-24-2017 09:01-0400 Pulse (Heart Rate) 73 /min Geri Ng GATE WATCH [facility] [place] 08-24-2017 09:01-0400 Respiratory Rate 16 /min Geri Ng [facility] [place] 08-24-2017 09:01-0400 Weight 62.42 kg Geri Ng GATE WATCH [facility][1]'s [facility] [place] 08-24-2017 09:01-0400 Weight 62.41 kg Geri Ng GATE WATCH [facility][1]'s [facility] [place] 09-27-2016 09:00-0500 BSA (Body Surface Area) 1.68 m2 Geri Ng GATE WATCH [facility] [place] Encounters Encounter Date Encounter Type Care Provider Facility Start: 07-18-2025 End: 07-18-2025 ambulatory TO LONGORIA Facility:[facility] Start: 07-06-2025 End: 07-06-2025 Patient encounter procedure Jonathan Becker Maribel GATE WATCH-C [facility] Work Phone: Start: 07-06-2025 End: 07-06-[address] To Longoria DO Work Phone: [facility] Start: 06-25-2025 End: 06-25-2025 Patient encounter procedure Pedrito Brock DO -[facility] Work Phone: Start: 06-25-2025 End: 06-25-[address] To Longoria DO Work Phone: -[facility] Start: 05-16-2025 End: 05-16-[address] Brianna Garrison MD [facility] Work Phone: Start: 05-16-2025 End: 05-16-[address] To Longoria DO Work Phone: [facility] Start: 05-09-2025 End: 05-13-2025 ambulatory To Longoria DO Work Phone: [facility] Comment on above: Prior Authorizatiom Start: 05-06-2025 End: 05-06-2025 Telephone encounter To Longoria DO Work Phone: [facility] Comment on above: diagnosis updated Start: 05-06-2025 End: 05-06-[address] To Longoria DO Work Phone: [facility] Work Phone: Start: 05-06-2025 End: 05-06-[address] To Longoria DO -[facility]patient [facility] Work Phone: Start: 05-06-2025 End: 05-06-2025 ambulatory To Longoria Facility:[facility] Start: 04-24-2025 End: 04-29-2025 Telephone encounter To Longoria DO Work Phone: [facility] Comment on above: Forms Start: 04-21-2025 End: 04-21-2025 Refill To Longoria DO Work Phone: [facility] Comment on above: Refill Request Start: 03-26-2025 End: 04-21-2025 Telephone encounter To Longoria DO Work Phone: [facility] Start: 03-26-2025 End: 03-26-[address] To Longoria DO Work Phone: [facility] Work Phone: Start: 03-26-2025 End: 03-26-[address] To Longoria DO -Laboratory Work Phone: Start: 03-25-2025 End: 03-25-2025 Patient encounter procedure To Longoria DO Work Phone: [facility] Comment on above: Elevated blood press ure reading without diagnosis of hypertension (Primary Dx); Menopausal disorder; Decreased libido; Encounter for screening mammogram for malignant neoplasm of breast; Class 1 obesity with body mass index (BMI) of 30.0 to 30.9 in adult, unspecified obesity type, unspecified whether serious comorbidity present; Chronic bilateral low back pain with bilateral sciatica; Palpitations Start: 03-25-2025 End: 03-26-2025 ambulatory To Longoria Facility:[facility] Start: 03-03-2025 End: 03-03-[address] To Longoria DO Work Phone: [facility] Work Phone: Start: 03-03-2025 End: 03-03-2025 Patient encounter procedure Lisa Werner -Radiology, [facility] Work Phone: Start: 03-03-2025 End: 03-03-2025 ambulatory To Longoria Facility:[facility] Start: 02-20-2025 End: 02-20-2025 Patient encounter procedure Pedrito Brock DO -[facility] Work Phone: Start: 02-20-2025 End: 02-20-2025 ambulatory To Longoria Facility:[facility] Start: 02-04-2025 End: 02-04-2025 Refill Laurel Benz DO Work Phone: Psychiatry Comment on above: Refill Request Start: 01-08-2025 End: 01-08-2025 Patient encounter procedure Bayron PADRON -[facility] Work Phone: Start: 01-08-2025 End: 01-08-2025 ambulatory To Longoria Facility:[facility] Start: 01-02-2025 End: 01-02-2025 Patient encounter procedure Pedrito Brock DO -Cat Scan, [facility] Work Phone: Start: 01-02-2025 End: 01-02-2025 ambulatory To Longoria Facility:[facility] Start: 12-25-2024 End: 12-25-2024 Patient encounter procedure Pedrito Brock DO -[facility] Work Phone: Start: 12-25-2024 End: 12-25-2024 ambulatory To Longoria Facility:[facility] Start: 12-16-2024 End: 12-16-2024 Patient encounter procedure Geri Sheatings GATE WATCH-C -[facility] [place] Work Phone: Start: 12-16-2024 End: 12-16-2024 ambulatory To Longoria Facility:[facility] Start: 12-12-2024 End: 12-12-2024 Patient encounter procedure Pedrito Brock -[facility] Work Phone: Start: 12-12-2024 End: 12-12-2024 ambulatory To Longoria Facility:[facility] Start: 12-04-2024 End: 12-04-2024 ambulatory No One (Historical) [facility] Start: 12-04-2024 End: 12-04-2024 Patient encounter procedure No One (Historical) [facility] Start: 10-31-2024 End: 10-31-2024 ambulatory To Longoria Facility:[facility] Start: 10-02-2024 End: 10-07-2024 Telephone encounter To L Longoria DO Work Phone: [facility] [place] Comment on above: Results Start: 10-01-2024 ambulatory To Longoria Facilit y:[facility] Start: 10-01-2024 ambulatory To Longoria Facilit y:[facility] Start: 10-01-2024 End: 10-01-2024 ambulatory To Longoria Facility:[facility] Start: 09-24-2024 End: 09-26-2024 Telephone encounter To L Longoria DO Work Phone: [facility] Comment on above: external documentati on (labs) Start: 09-20-2024 End: 09-20-2024 Patient encounter procedure To Longoria DO Work Phone: [facility] Comment on above: Elevated blood press ure reading without diagnosis of hypertension (Primary Dx); Decreased libido; Headache disorder; Abnormal foot color Start: 09-20-2024 End: 09-20-2024 ambulatory TO LONGORIA Facility:[facility] Start: 09-20-2024 End: 09-20-2024 ambulatory To Lisarison Facility:[facility] Start: 09-10-2024 End: 09-10-2024 ambulatory To Lisarison Facility:[facility] Start: 08-20-2024 End: 08-20-2024 Refill To Longoria DO Work Phone: [facility] Comment on above: Refill Request Start: 08-09-2024 End: 08-09-2024 Refill Laurel Benz DO Work Phone: Psychiatry Start: 08-06-2024 End: 08-06-2024 [facility] Laurel Benz DO Work Phone: Psychiatry Comment on above: KATHIE (generalized anx iety disorder) (Primary Dx); Major depressive disorder, recurrent severe without psychotic features (HCC); PTSD (post-traumatic stress disorder) Start: 07-10-2024 End: 07-10-2024 Refill Laurel Benz DO Work Phone: Neurology Comment on above: Refill Request Start: 07-09-2024 End: 07-09-2024 Patient encounter procedure To Longoria DO Work Phone: [facility] Comment on above: Lumbosacral radiculo maria victoria at L5 (Primary Dx); DDD (degenerative disc disease), lumbar; Osteoarthritis of spine with radiculopathy, lumbar region; Chronic bilateral low back pain with bilateral sciatica Start: 06-19-2024 Telephone encounter To castillo DO Work Phone: [facility] [place] Comment on above: Patient Question Start: 06-18-2024 ambulatory To sabillon DO Work Phone: [facility] [place] Comment on above: Meloxicam Start: 06-18-2024 End: 06-18-2024 Patient encounter procedure To Longoria DO Work Phone: [facility] [place] Comment on above: Lumbosacral radiculo maria victoria at L5 (Primary Dx); DDD (degenerative disc disease), lumbar; Osteoarthritis of spine with radiculopathy, lumbar region; Paresthesia of skin; Pars defect of lumbar spine Start: 06-17-2024 ambulatory To sabillon DO Work Phone: [facility] [place] Comment on above: STD paperwork Start: 06-17-2024 E-mail encounter fro m caregiver To Longoria DO Work Phone: [facility] [place] Start: 06-11-2024 Telephone encounter To castillo DO Work Phone: [facility] [place] [facility] Comment on above: Patient Update Start: 06-03-2024 End: 08-21-2024 Telephone encounter To Longoria DO Work Phone: [facility] Comment on above: short term disabilit y forms Start: 06-03-2024 End: 06-03-2024 Patient encounter procedure To Longoria DO Work Phone: [facility] [place] Comment on above: Lumbosacral radiculo maria victoria at L5 (Primary Dx); DDD (degenerative disc disease), lumbar; Osteoarthritis of spine with radiculopathy, lumbar region Start: 05-27-2024 Telephone encounter To castillo DO Work Phone: [facility] [place] Comment on above: Patient Question; Co vid19 Concern Medication Update (/ ) Start: 05-26-2024 ambulatory Laurel Benz DO Work Phone: Psychiatry Comment on above: Vybrid Start: 05-26-2024 E-mail encounter fro m caregiver Maureen Zhu APRN.PALS NURSE Work Phone: Telemedicine Start: 05-26-2024 End: 05-26-2024 Telemedicine consultation with patient Maureen Zhu STEAM PRESSURE CHAMBER OPERATOR.PALS NURSE Work Phone: Telemedicine Comment on above: follow up Positive self-admini stered antigen test for COVID-19 (Primary Dx) Start: 05-17-2024 End: 04-23-2025 Telephone encounter To Longoria DO Work Phone: [facility] Comment on above: Results Start: 05-16-2024 Telephone encounter To castillo DO Work Phone: [facility] [place] Comment on above: Aquatherapy Referral Request Start: 05-15-2024 Telephone encounter To Annabella Flannery jonathan DO Work Phone: [facility] Comment on above: Appointment; MRI pre cert Start: 05-14-2024 End: 05-14-2024 Patient encounter procedure To Longoria DO Work Phone: [facility] Comment on above: Well adult exam ([facility] linda Dx); Acute bilateral low back pain with bilateral sciatica; Radiculopathy of lumbar region; Paresthesia of skin; Pars defect of lumbar spine Start: 05-14-2024 End: 05-14-2024 Patient encounter status To Longoria DO Work Phone: [facility] Start: 05-13-2024 Telephone encounter To castillo DO Work Phone: [facility] [place] Start: 05-08-2024 Telephone encounter Kimber tompkins APRN.PALS NURSE Work Phone: [facility] [facility] Comment on above: Results Start: 05-06-2024 End: 05-06-2024 Office outpatient visit 25 minutes Kimber Jorge APRN.PALS NURSE Work Phone: [facility] [place] Comment on above: Acute bilateral low back pain with sciatica, sciatica laterality unspecified (Primary Dx) Start: 04-03-2024 End: 04-03-2024 [facility] Laurel Diaz Benz DO Work Phone: Psychiatry Comment on above: KATHIE (generalized anx iety disorder); Recurrent major depressive disorder, in partial remission (HCC) Start: 03-22-2024 Refill To sabillon DO Work Phone: [facility] Comment on above: Refill Request Start: 01-26-2024 Telephone encounter To dumontkathe DO Work Phone: [facility] Start: 01-19-2024 End: 01-19-[address] To Longoria Work Phone: [facility] Work Phone: Start: 01-19-2024 End: 01-19-[address] [facility] Long[facility] Start: 01-18-2024 End: 01-18-2024 [facility] Laurel Benz DO Work Phone: Psychiatry Comment on above: MDD (major depressiv e disorder), recurrent episode, moderate (HCC) (Primary Dx); Panic disorder without agoraphobia; KATHIE (generalized anxiety disorder); Recurrent major depressive disorder, in partial remission (HCC) Start: 01-05-2024 End: 01-05-[address] To Longoria Work [facility] [facility] Work Phone: Start: 01-05-2024 End: 01-05-[address] To Longoria [facility] Start: 12-29-2023 End: 12-29-[address] To Longoria Work Phone: [facility] Work Phone: Start: 12-29-2023 End: 12-29-[address] To Longoria [facility] Start: 12-28-2023 End: 12-28-[address] To Longoria Work Phone: [facility] Work Phone: Start: 12-07-2023 End: 12-07-[address] To Longoria Work Phone: [facility] Work Phone: Start: 11-14-2023 Non-patient / Non-visit Dr. To Longoria Work Phone: [facility] Start: 11-14-2023 End: 11-14-2023 Admission to same day surgery center Dr. To Longoria Work Phone: [facility]Endoscopy Work Phone: Start: 11-06-2023 End: 11-06-[address] To Longoria Work Phone: [facility] Work Phone: Start: 11-06-2023 End: 11-06-[address] To Longoria Work Phone: [facility]-Outpatient Breast Imaging Work Phone: Start: 10-27-2023 End: 10-27-2023 Admission to same day surgery center Dr. To Longoria Work Phone: [facility]End[facility] Work Phone: Start: 10-27-2023 End: 10-27-[address] To Longoria Work Phone: [facility] Work Phone: Start: 10-03-2023 End: 10-03-2023 Patient encounter procedure To Longoria DO Work Phone: [facility] [place] Comment on above: Diarrhea, unspecifie d type (Primary Dx); Encounter for screening mammogram for malignant neoplasm of breast; GERD without esophagitis; KATHIE (generalized anxiety disorder); Decreased hearing of both ears; Fatigue, unspecified type; Depression, unspecified depression type Start: 09-22-2023 End: 09-22-[address] To Longoria Work Phone: [facility] Work Phone: Start: 09-21-2023 Non-patient / Non-visit Dr. To Longoria Work Phone: [facility] Start: 09-21-2023 End: 09-21-2023 Admission to same day surgery center Dr. To Longoria Work Phone: [facility] Work Phone: Start: 09-21-2023 End: 09-21-[address] To Longoria Work Phone: [facility] Work Phone: Start: 09-12-2023 End: 09-12-2023 [facility] Laurel Benz DO Work Phone: Psychiatry Comment on above: Recurrent major depr essive disorder, in partial remission (HCC); KATHIE (generalized anxiety disorder) Start: 09-05-2023 End: 09-05-[address] To Longoria Work Phone: [facility] Work Phone: Start: 09-05-2023 End: 09-05-[address] To Longoria Work Phone: [facility] Work Phone: Start: 08-28-2023 End: 08-28-[address] To Longoria Work Phone: [facility] Work Phone: Start: 08-23-2023 End: 08-23-[address] To Longoria Work Phone: [facility] Work Phone: Start: 08-01-2023 Refill Laurelbob Benz DO Work Phone: Psychiatry Comment on above: Refill Request Start: 07-06-2023 End: 07-06-[address] To Longoria Work Phone: [facility] Work Phone: Start: 06-22-2023 Refill Laurel Emily Benz DO Work Phone: Psychiatry Comment on above: Refill Request Start: 06-18-2023 End: 06-18-[address] To Longoria Work Phone: [facility] Work Phone: Start: 04-25-2023 End: 04-25-2023 [facility] Laurel Emily Angel DO Work Phone: Psychiatry Comment on above: PTSD (post-traumatic stress disorder) (Primary Dx); MDD (major depressive disorder), recurrent episode, moderate (HCC); KATHIE (generalized anxiety disorder) Start: 04-18-2023 End: 04-18-[address] To Longoria Work Phone: [facility] Work Phone: Start: 04-18-2023 End: 04-18-[address] To Longoria Work Phone: [facility] Work Phone: Start: 03-31-2023 End: 03-31-[address] To Longoria [facility] Phone[facility] Work Phone: Start: 03-20-2023 Refill Laurel Benz DO Work Phone: Psychiatry Comment on above: Refill Request Start: 03-17-2023 Refill Laurel Benz DO Work Phone: Psychiatry Comment on above: Refill Request Start: 03-08-2023 ambulatory To sabillon DO Work Phone: [facility] Comment on above: Azathioprine Start: 03-02-2023 End: 03-02-[address] To Longoria Work Phone: [facility] Start: 02-24-2023 End: 02-24-[address] To Longoria Work Phone: [facility] Work Phone: Start: 02-24-2023 End: 02-24-[address] To Longoria Work Phone: [facility] Start: 02-16-2023 Non-patient / Non-visit Dr. To Longoria Work Phone: [facility] Start: 02-16-2023 End: 02-16-2023 Admission to same day surgery center Dr. To Longoria Work Phone: [facility] Start: 02-16-2023 End: 02-16-[address] To Longoria Work Phone: [facility] Work Phone: Start: 02-01-2023 ambulatory Estefania Joyce MD Work Phone: Allergy Comment on above: lab results Start: 02-01-2023 E-mail encounter fro m caregiver Estefania Joyce MD Work Phone: [facility] Start: 01-30-2023 End: 01-30-[address] To Longoria Work Phone: [facility] Start: 01-23-2023 End: 01-23-[address] To Longoria Work Phone: [facility] Work Phone: Start: 01-23-2023 End: 01-23-[address] To Longoria Work Phone: [facility] Start: 01-20-2023 End: 01-20-[address] To Longoria Work Phone: [facility] Start: 01-20-2023 End: 01-20-[address] Work Phone: [facility] Comment on above: Refill Request Start: 01-19-2023 End: 01-19-2023 Patient encounter procedure Estefania Joyce MD Work Phone: Allergy Comment on above: Recurrent infections (Primary Dx); Need for vaccination; Chronic rhinitis; Mild intermittent reactive airway disease without complication; Toxic effect of venom, accidental or unintentional, initial encounter Start: 01-19-2023 Telephone encounter To castillo DO Work Phone: [facility] Comment on above: Results Start: 01-12-2023 End: 01-12-[address] To Longoria Work Phone: [facility] Work Phone: Start: 01-12-2023 End: 01-12-[address] To Longoria [facility] Start: 01-11-2023 End: 01-11-2023 Patient encounter procedure To Longoria DO Work Phone: [facility] Comment on above: Diarrhea, unspecifie d type (Primary Dx); GERD without esophagitis; HLA B27 (HLA B27 positive); Dyslipidemia; Painless hematuria; KATHIE (generalized anxiety disorder) Start: 01-06-2023 Telephone encounter Hadley Rogel MD Work Phone: Allergy Comment on above: appointment needed Start: 12-23-2022 ambulatory To sabillon DO Work Phone: [facility] Comment on above: Labs Start: 12-09-2022 End: 12-09-[address] To Longoria Work Phone: [facility] Work Phone: Start: 12-09-2022 End: 12-09-[address] To Longoria [facility] Start: 12-06-2022 End: 12-06-[address] To Longoria Work Phone: [facility] Work Phone: Start: 12-06-2022 End: 12-06-[address] To Longoria Work Phone: [facility] Start: 12-06-2022 End: 12-06-[address] To Longoria Work Phone: [facility] Start: 11-24-2022 End: 11-24-2022 [facility] Laurel Benz DO Work Phone: Psychiatry Comment on above: Recurrent major depr essive disorder, in partial remission (HCC); KATHIE (generalized anxiety disorder) Medication Problem Start: 11-22-2022 End: 11-22-2022 Office outpatient visit 15 minutes Kimber Jorge APRN.PALS NURSE Work Phone: [facility] Comment on above: Decreased hearing of both ears (Primary Dx) Start: 11-07-2022 End: 11-07-2022 Admission to same day surgery center Dr. To Longoria Work Phone: [facility] Start: 11-03-2022 End: 11-03-[address] To Longoria Work Phone: [facility]-Outpatient Breast Imaging Start: 10-29-2022 End: 10-29-2022 Patient encounter procedure Torie Arceo STEAM PRESSURE CHAMBER OPERATOR.PALS NURSE Work Phone: [facility] Comment on above: OME (otitis media wi th effusion), bilateral (Primary Dx); Viral URI with cough; Redness of eye, left Start: 10-28-2022 Telephone encounter To castillo DO Work Phone: [facility] Comment on above: Patient Update Start: 10-27-2022 End: 10-27-2022 Patient encounter procedure Zaki Frost APRN.PALS NURSE Work Phone: [facility] Comment on above: Viral illness (Prima ry Dx) Start: 10-22-2022 End: 10-22-[address] To Longoria Work Phone: [facility]Labor[facility], Specimen Start: 10-21-2022 End: 10-21-[address] To Longoria Work Phone: [facility] Start: 10-19-2022 Telephone encounter To castillo DO Work Phone: [facility] Start: 10-17-2022 End: 10-17-[address] To Longoria Work Phone: [facility] Work Phone: Start: 10-17-2022 End: 10-17-[address] To Longoria Work Phone: [facility] Start: 10-11-2022 End: 10-11-2022 Patient encounter procedure To Longoria DO Work Phone: [facility] Comment on above: Gross hematuria (Hortencia linda Dx); Painless hematuria; GERD without esophagitis; KATHIE (generalized anxiety disorder) Start: 10-06-2022 End: 10-06-2022 [facility] Laurel Benz DO Work Phone: Psychiatry Comment on above: Recurrent major depr essive disorder, in partial remission (HCC) (Primary Dx); Panic disorder without agoraphobia; PTSD (post-traumatic stress disorder); KATHIE (generalized anxiety disorder) Start: 09-15-2022 Telephone encounter To castillo DO Work Phone: [facility] Comment on above: Medication Problem; Patient Update; Patient Question Start: 09-09-2022 End: 09-09-[address] To Longoria Work Phone: [facility] Work Phone: Comment on above: Hematuria Start: 09-09-2022 Telephone encounter Zaki chau APRN.CNP Work Phone: [facility] Comment on above: Results Start: 09-09-2022 End: 09-09-[address] To Longoria [facility] Start: 09-08-2022 End: 09-08-2022 Patient encounter procedure Romana Zavala PA-C Work Phone: [facility] Comment on above: Gross hematuria (Hortencia linda Dx) Start: 09-08-2022 Telephone encounter To castillo DO Work Phone: [facility] Comment on above: Patient Update Start: 08-25-2022 Refill Laurel Benz DO Work Phone: Psychiatry Comment on above: Vybrid Start: 08-12-2022 Telephone encounter To castillo DO Work Phone: [facility] Comment on above: Results Start: 08-12-2022 End: 08-12-[address] To Longoria [facility] Start: 08-10-2022 End: 08-10-2022 Patient encounter procedure To Longoria DO Work Phone: [facility] Comment on above: Depression, unspecif ied depression type (Primary Dx); Fatigue, unspecified type; Encounter for screening mammogram for malignant neoplasm of breast; Borderline abnormal thyroid function test; Need for Tdap vaccination; Obesity, Class I, BMI 30-34.9; KATHIE (generalized anxiety disorder) Start: 07-21-2022 End: 07-21-2022 [facility] Laurel Benz DO Work Phone: Psychiatry Comment on above: Recurrent major depr essive disorder, in partial remission (HCC); KATHIE (generalized anxiety disorder) Start: 07-12-2022 End: 07-12-[address] To Longoria Work Phone: [facility] Work Phone: Start: 07-12-2022 End: 07-12-[address] To Longoria Work Phone: [facility] Start: 07-08-2022 ambulatory Laurel Benz DO Work Phone: [facility] Start: 07-08-2022 Patient encounter procedure Laurel Benz DO Work Phone: Psychiatry Comment on above: Appointment Start: 06-22-2022 End: 06-22-[address] To Longoria Work Phone: [facility] Start: 05-25-2022 End: 05-25-2022 [facility] Laurel Benz DO Work Phone: Psychiatry Comment on above: Recurrent major depr essive disorder, in partial remission (HCC) (Primary Dx); KATHIE (generalized anxiety disorder) Start: 05-20-2022 Telephone encounter To castillo DO Work Phone: [facility] Comment on above: Medication Request ( copied from [employer] ) Start: 03-23-2022 End: 03-23-[address] To Longoria Work Phone: [facility] Start: 03-08-2022 Telephone encounter To castillo DO Work Phone: [facility] Comment on above: Refill Request Start: 03-05-2022 Refill To sabillon DO Work Phone: [facility] Comment on above: Refill Request Start: 01-28-2022 Telephone encounter To castillo DO Work Phone: [facility] Comment on above: Orders Start: 01-19-2022 Patient encounter status To Longoria DO Work Phone: [facility] Work Phone: Start: 11-24-2020 Patient encounter procedure Aman Gary [id number] 2100 Work Phone: Start: 08-24-2020 End: 08-24-2020 Subsequent hospital visit by physician [facility] Work Phone: Radiology Comment on above: Tachycardia [R00.0] Start: 04-21-2020 Patient encounter procedure Aman Gary [id number] 2100 Work Phone: Procedures Date Procedure Procedure Detail Performing Clinician Start: 05-06-2025 Screening mammography Dennis Longoria DO Work Phone: Start: 03-26-2025 Fol[address] hormone measurement Dr. To Longoria DO Work Phone: Comment on above: FEMALE:Follicular: 1 .4 - 18.1 mIU/mLMidcycle: 3.4 - 33.4 mIU/mLLuteal: 1.5 - 9.1 mIU/mLPost Menopause: 23.0 - 116.3 mIU/mLMALE: 1.4 - 18.1 mIU/mL NORMAL REFERENCE RANGES FEMALE FOLLICULAR 2.3 - 12.6 mIU/mL MID-CYCLE PEAK 5.2 - 17.5 mIU/mL LUTEAL 1.7 - 12.9 mIU/mL POST-MENOPAUSAL ON MHT 5.9 - 72.8 mIU/mL NOT ON MHT 12.7 - 132.2 mlU/mL MALE 0.7 - 10.8 mIU/mL Start: 03-26-[address] To Longoria DO Work Phone: Comment on above: Follicular phase 0.1 - 0.9 Luteal phase 1.8 - 23.9 Ovulation phase 0.1 - 12.0 First trimester 11.0 - 44.3 Second trimester 25.4 - 83.3 Third trimester 58.7 - 214.0 Postmenopausal 0.0 - 0.1Performed at: [facility] [id number] Director: Natanael Felix PhD, Phone: [phone] Start: 03-03-2025 X-ray of cervical spine Dr. To Longoria DO Work Phone: Start: 01-02-2025 Computed tomography of abdomen and pelvis with contrast Dr. To Longoria DO Work Phone: Start: 12-07-[address] To Longoria Work Phone: Start: 11-06-2023 Screening mammography Dennis Longoria Work Phone: Start: 11-03-2023 Colonoscopy To horta DO Work Phone: Start: 10-27-[address] Luis Longoria Work Phone: Start: 09-21-[address] To Longoria Work Phone: Start: 08-23-[address] To Longoria Work Phone: Start: 02-16-2023 EGD - PH Probe (MAC) (Not Applicable) Dr. To Longoria Work Phone: Start: 11-03-2022 End: 11-03-2022 Mammography Kimber Jorge STEAM PRESSURE CHAMBER OPERATOR.PALS NURSE Work Phone: Start: 10-11-2022 Urnls dip stick/tabl et rgnt auto w/o microscopy To Longoria DO Work Phone: Start: 09-08-2022 Urnls dip stick/tabl et rgnt auto w/o microscopy Romana Zavala PA-C Work Phone: Start: 07-12-2022 MRI of brain with contrast Dr. To Longoria Work Phone: Start: 12-14-2020 Antibody screen Comment on above: Performed By: #### T +S ####[id number] [place] [address] Start: 11-24-2020 Ct abdomen & pelvis w/contrast material Aman Gary Start: 11-24-2020 Ct thorax w/contrast material Aman Gary Start: 09-21-2020 Mammography To horta DO Work Phone: Start: 08-24-2020 Radiologic exam ches t 2 views Kimber Jorge APRN.PALS NURSE Work Phone: Start: 06-11-2019 Lipid 1996 panel - S delta or Plasma To Longoria DO Work Phone: Start: 08-24-2017 Gynecologic examination Routin e gynecological examination Geri Ng [employer] Start: 08-24-2017 End: 08-24-2017 Documentation of current medications Geri Ng [employer] Biopsy of breast Aman Gary section Aman Gary Endometrial biopsy Aman Kirsty tz Lactoferrin measurement Dr. To Longoria Work Phone: Ligation of fallopia n tube Aman Gary Urine culture Dr. To horta Work Phone: Plan of Treatment Date Care Activity Detail Author Start: 08-10-[address] [facility] Start: 03-25-2026 Annual PCP Team Quality [employer] asael Disease Visit Annual PCP Team Chronic Disease Visit [facility] Start: 09-22-2025 HPV TESTING HPV TESTING [facility] Start: 09-22-2025 PAP TEST[address] PAP TESTING [facility] Start: 09-22-2025 Screening for malign ant neoplasm of cervix [facility] Start: 09-20-2025 Annual PCP Team Quality Control [employer] asael Disease Visit Annual PCP Team Chronic Disease Visit [facility] Start: 07-18-2025 End: 07-18-2025 Patient encounter procedure 07/18/2025 12:40 PM EDT Office Visit Family Medicine [place] [address] [place], [place] [id number] To Longoria DO [address] [place], [place] [id number] Follow up blood pressure [facility] [place] Comment on above: Follow up blood pres sure Start: 07-09-2025 Annual PCP Team Quality Control [employer] asael Disease Visit Annual PCP Team Chronic Disease Visit [facility] Start: 06-18-2025 Annual PCP Team Quality Control Tech [employer] asael Disease Visit Annual PCP Team Chronic Disease Visit [facility] Start: 06-03-2025 Annual PCP Team Quality Control Tech [employer] asael Disease Visit Annual PCP Team Chronic Disease Visit [facility] Start: 05-14-2025 Annual PCP Team Quality Control Tech [employer] asael Disease Visit Annual PCP Team Chronic Disease Visit [facility] Start: 05-06-2025 Annual PCP Team Quality Control Tech [employer] asael Disease Visit Annual PCP Team Chronic Disease Visit [facility] Start: 04-25-2025 Screening for malign ant neoplasm of breast Mammogram Screening [facility] Start: 03-25-2025 End: 03-25-2025 Patient encounter procedure 03/25/2025 3:20 PM EDT Office Visit Family Medicine [place] [address] [place] [address] To Longoria DO [address] [place] [address] Follow up BP [facility] [place] Comment on above: Follow up BP Start: 03-25-2025 End: 06-24-2025 Comprehensive metabolic 2000 panel - Serum or Plasma COMPREHENSIVE METABOLIC PANEL Lab Routine Elevated blood pressure reading without diagnosis of hypertension Class 1 obesity with body mass index (BMI) of 30.0 to 30.9 in adult, unspecified obesity type, unspecified whether serious comorbidity present Expected: 03/25/2025, Expires: 06/24/2025 [facility] Comment on above: Expected: 03/25/2025 , Expires: 06/24/2025 Start: 03-25-2025 End: 06-24-2025 Estradiol (E2) [Mass/volume] in Serum or Plasma ESTRADIOL-17B BLD Lab Routine Menopausal disorder Expected: 03/25/2025, Expires: 06/24/2025 [facility] Comment on above: Expected: 03/25/2025 , Expires: 06/24/2025 Start: 03-25-2025 End: 06-24-2025 Follitropin [Units/volume] in Serum or Plasma FOLLICLE STIMULATING HORMONE Lab Routine Menopausal disorder Expected: 03/25/2025, Expires: 06/24/2025 [facility] Comment on above: Expected: 03/25/2025 , Expires: 06/24/2025 Start: 03-25-2025 End: 06-24-2025 Hemoglobin A1c in Blood HEMOGLOBIN A1C Lab Routine Class 1 obesity with body mass index (BMI) of 30.0 to 30.9 in adult, unspecified obesity type, unspecified whether serious comorbidity present Expected: 03/25/2025, Expires: 06/24/2025 [facility] Comment on above: Expected: 03/25/2025 , Expires: 06/24/2025 Start: 03-25-2025 End: 06-24-2025 Insulin [Units/volume] in Serum or Plasma INSULIN, TOTAL, SERUM Lab Routine Class 1 obesity with body mass index (BMI) of 30.0 to 30.9 in adult, unspecified obesity type, unspecified whether serious comorbidity present Expected: 03/25/2025, Expires: 06/24/2025 [facility] Comment on above: Expected: 03/25/2025 , Expires: 06/24/2025 Start: 03-25-2025 End: 06-24-2025 Progesterone [Mass/volume] in Serum or Plasma PROGESTERONE Lab Routine Menopausal disorder Expected: 03/25/2025, Expires: 06/24/2025 [facility] Work Phone: Comment on above: Expected: 03/25/2025 , Expires: 06/24/2025 Start: 03-25-2025 End: 06-24-2025 Testosterone [Mass/volume] in Serum or Plasma TESTOSTERONE, TOTAL BY IMMUNOASSAY (ADULT MALES, OR INDIVIDUALS ON TESTOSTERONE THERAPY) Lab Routine Menopausal disorder Expected: 03/25/2025, Expires: 06/24/2025 [facility] Comment on above: Expected: 03/25/2025 , Expires: 06/24/2025 Start: 11-03-2024 Screening for malign ant neoplasm of colon [facility] Start: 10-03-2024 Annual PCP Team Quality Control [employer] asael Disease Visit Annual PCP Team Chronic Disease Visit [facility] Start: 10-03-2024 Covid-19 Vaccine () Covid-19 Vaccine () [facility] Comment on above: Postponed from 07/21 (Declined at this time) Start: 09-20-2024 End: 12-20-2024 Estradiol (E2) [Mass/volume] in Serum or Plasma ESTRADIOL-17B BLD Lab Routine Decreased libido Expected: 09/20/2024, Expires: 12/20/2024 [facility] Comment on above: Expected: 09/20/2024 , Expires: 12/20/2024 Start: 09-20-2024 End: 12-20-2024 Progesterone [Mass/volume] in Serum or Plasma PROGESTERONE Lab Routine Decreased libido Expected: 09/20/2024, Expires: 12/20/2024 [facility] Comment on above: Expected: 09/20/2024 , Expires: 12/20/2024 Start: 09-20-2024 End: 12-20-2024 TESTOSTERONE, FREE AND TOTAL, BY EQUILIBRIUM ULTRAFILTRATION MASS SPECTROMETRY TESTOSTERONE, FREE AND TOTAL, BY EQUILIBRIUM ULTRAFILTRATION MASS SPECTROMETRY Lab Routine Decreased libido Expected: 09/20/2024, Expires: 12/20/2024 [facility] Comment on above: Expected: 09/20/2024 , Expires: 12/20/2024 Start: 08-06-2024 End: 08-06-2024 ambulatory 08/06/2024 2:00 PM EDT [facility] Psychiatry [address] [facility] [address] [place] [address] Laurel Benz, [address] [place], [place] [id number] med check Psychiatry Comment on above: med check Start: 07-21-2024 Covid-19 Vaccine ( season) Covid-19 Vaccine ( season) [facility] Start: 07-21-2024 Covid-19 Vaccine ( season) Covid-19 Vaccine ( season) [facility] Start: 07-21-2024 Influenza vaccination Influenz a Vaccine (#1) [facility] Start: 07-11-2024 End: 07-11-2024 ambulatory 07/11/2024 10:30 AM EDT [facility] Psychiatry [address] [facility] [address] [place] [address] Laurel Benz, [address] [place] [address] med check Psychiatry Comment on above: med check Start: 07-09-2024 End: 07-09-2024 Patient encounter procedure 07/09/2024 3:40 PM EDT Office Visit Family Medicine Briseida [address] [place] [address] To Longoria DO [address] [place] [address] Follow up Family Medicine [facility] Comment on above: Follow up Start: 06-18-2024 End: 06-18-2024 Patient encounter procedure 06/18/2024 2:00 PM EDT Office Visit [facility] [place] [address] [place] [address] To Longoria, [address] [place] [address] follow up [facility] [place]ine [place] Comment on above: follow up Start: 06-11-2024 Lipid 1996 panel - S delta or Plasma Lipid Screening [facility] Start: 06-11-2024 Lipid panel Lipid Screening [facility] Start: 06-03-2024 End: 06-03-2024 Patient encounter procedure 06/03/2024 7:40 AM EDT Office Visit [facility] [place] [address] [place] [address] To Longoria, [address] [place] [address] f/u back pain-Pt coming in at 720 am ok per JG-see TE 05/15 [facility] [place] Comment on above: f/u back pain-Pt com ing in at 720 am ok per JG-see TE 05/15 Start: 05-14-2024 End: 08-13-2024 25-hydroxyvitamin D3 [Mass/volume] in Serum or Plasma VITAMIN D 25 HYDROXY Lab Routine Well adult exam Expected: 05/14/2024, Expires: 08/13/2024 [facility] Comment on above: Expected: 05/14/2024 , Expires: 08/13/2024 Start: 05-14-2024 End: 08-13-2024 C reactive protein [Mass/volume] in Serum or Plasma C-REACTIVE PROTEIN Lab Routine Well adult exam Expected: 05/14/2024, Expires: 08/13/2024 [facility] Comment on above: Expected: 05/14/2024 , Expires: 08/13/2024 Start: 05-14-2024 End: 08-13-2024 CBC W Auto Differential panel - Blood COMPLETE BLOOD COUNT AND DIFFERENTIAL Lab Routine Well adult exam Expected: 05/14/2024, Expires: 08/13/2024 [facility] Comment on above: Expected: 05/14/2024 , Expires: 08/13/2024 Start: 05-14-2024 End: 08-13-2024 Cobalamin (Vitamin B12) [Mass/volume] in Serum or Plasma VITAMIN B12 Lab Routine Well adult exam Expected: 05/14/2024, Expires: 08/13/2024 [facility] Comment on above: Expected: 05/14/2024 , Expires: 08/13/2024 Start: 05-14-2024 End: 08-13-2024 Comprehensive metabolic 2000 panel - Serum or Plasma COMPREHENSIVE METABOLIC PANEL Lab Routine Well adult exam Expected: 05/14/2024, Expires: 08/13/2024 [facility] Comment on above: Expected: 05/14/2024 , Expires: 08/13/2024 Start: 05-14-2024 End: 08-13-2024 Hemoglobin A1c in Blood HEMOGLOBIN A1C Lab Routine Well adult exam Expected: 05/14/2024, Expires: 08/13/2024 [facility] Comment on above: Expected: 05/14/2024 , Expires: 08/13/2024 Start: 05-14-2024 End: 08-13-2024 Lipid 1996 panel - Serum or Plasma LIPID PANEL BASIC Lab Routine Well adult exam Expected: 05/14/2024, Expires: 08/13/2024 [facility] Comment on above: Expected: 05/14/2024 , Expires: 08/13/2024 Start: 05-14-2024 End: 08-13-2024 Thyrotropin [Units/volume] in Serum or Plasma THYROID STIMULATING HORMONE Lab Routine Well adult exam Expected: 05/14/2024, Expires: 08/13/2024 [facility] Comment on above: Expected: 05/14/2024 , Expires: 08/13/2024 Start: 05-14-2024 End: 08-13-2024 Thyroxine (T4) free [Mass/volume] in Serum or Plasma T4 FREE/FREE THYROXINE Lab Routine Well adult exam Expected: 05/14/2024, Expires: 08/13/2024 [facility] Comment on above: Expected: 05/14/2024 , Expires: 08/13/2024 Start: 05-14-2024 End: 05-14-2024 Patient encounter procedure 05/14/2024 1:00 PM EDT Office Visit [facility] [place] [address] [place] [address] To Longoria, DO [address] [place] [address] Labs, weight, hair loss [facility] [place] Comment on above: Labs, weight, hair l oss Start: 04-03-2024 End: 04-03-2024 ambulatory 04/03/2024 9:30 AM EDT [facility] [address] [facility] [address] [place] [address] Laurel Benz, DO [address] [place], [place] [id number] med check Psychiatry Comment on above: med check Start: 01-20-2024 PNEUMOCOCCAL (2 - PCV) PNEUMOC OCCAL (2 - PCV) [facility] Start: 01-20-[address] [facility] Start: 01-11-2024 ANNUAL PCP TEAM 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 Start: 12-29-2023 Celiac disease screen [facility] Start: 12-29-2023 IgG subclass panel [Mass/volume] - Serum [facility] Start: 12-29-2023 Immunoglobulin measurement [facility] Start: 12-29-2023 In-vitro immunologic test [facility] Start: 12-29-2023 Serum immunofixation [facility] Start: 11-22-2023 ANNUAL PCP TEAM 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 Start: 11-14-2023 Esophagogastroduoden oscopy submucosal injection UPPR GI SCOPE W/SUBMUC INJ [facility] Start: 11-14-2023 Patient discharge [facility] Start: 11-03-[address] [facility] Start: 11-03-2023 Screening for malign ant neoplasm of breast Mammogram Screening [facility] Start: 10-27-2023 Esophageal motility study w/interp&rpt ESOPHAGUS MOTILITY STUDY [facility] Start: 10-27-2023 Patient discharge [facility] Start: 10-11-2023 ANNUAL PCP TEAM 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 Start: 2023 Cologuard (FIT-DNA) Cologuard (FIT-D NA) [facility] Start: [address] [facility] Start: 2023 Colorectal Cancer Screening Co lorectal Cancer Screening [facility] Start: [address] Colonography [facility] Start: 2023 Diabetes Screening Diabetes Screenin g [facility] Start: 2023 Fecal Occult Blood Fecal Occult Bloo d [facility] Start: 2023 Screening for malign ant neoplasm of colon [facility] Start: 2023 Sigmoidoscopy Sigmoidoscopy [facility] Start: 09-21-2023 Colonoscopy w/biopsy single/multiple COLONOSCOPY AND BIOPSY [facility] Start: 09-21-2023 Egd transoral biopsy single/multiple EGD BIOPSY SINGLE/MULTIPLE [facility] Start: 09-21-2023 Patient discharge [facility] Start: 08-10-2023 ANNUAL PCP TEAM 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 Start: 07-21-2023 Covid-19 Vaccine ( season) Covid-19 Vaccine ( season) [facility] Start: 07-21-2023 Influenza vaccination C [facility] Start: 02-19-2023 End: 04-21-2023 PNEUMOCOCCAL IGG ABS, 23 SEROTYPES PNEUMOCOCCAL IGG ABS, 23 SEROTYPES Lab Routine Recurrent infections Expected: 02/19/2023 (Approximate), Expires: 04/21/2023 [facility] Work Phone: Comment on above: Expected: 02/19/2023 (Approximate), Expires: 04/21/2023 Start: 02-16-2023 Egd transoral biopsy single/multiple EGD BIOPSY SINGLE/MULTIPLE [facility] Start: 02-16-2023 Patient discharge [facility] Start: 01-23-2023 Procedure [facility] Start: 01-20-2023 Procedure [facility] Start: 01-19-2023 End: 03-21-2023 CBC W Auto Differential panel - Blood CBC + DIFF Lab Routine Recurrent infections Expected: 01/19/2023, Expires: 03/21/2023 [facility] Work Phone: Comment on above: Expected: 01/19/2023 , Expires: 03/21/2023 Start: 01-19-2023 End: 03-21-2023 Clostridium tetani IgG Ab [Units/volume] in Serum by Immunoassay TETANUS ANTIBODY IGG Lab Routine Recurrent infections Expected: 01/19/2023, Expires: 03/21/2023 [facility] Work Phone: Comment on above: Expected: 01/19/2023 , Expires: 03/21/2023 Start: 01-19-2023 End: 03-21-2023 DIPHTHERIA IGG ABS DIPHTHERIA IGG ABS Lab Routine Recurrent infections Expected: 01/19/2023, Expires: 03/21/2023 [facility] Work Phone: Comment on above: Expected: 01/19/2023 , Expires: 03/21/2023 Start: 01-19-2023 End: 03-21-2023 Immunodeficiency panel - Blood by Flow cytometry (FC) IMMUNODEFICIENCY CDC Lab Routine Recurrent infections Expected: 01/19/2023, Expires: 03/21/2023 [facility] Work Phone: Comment on above: Expected: 01/19/2023 , Expires: 03/21/2023 Start: 01-19-2023 End: 03-21-2023 PNEUMOCOCCAL IGG ABS, 23 SEROTYPES PNEUMOCOCCAL IGG ABS, 23 SEROTYPES Lab Routine Recurrent infections Expected: 01/19/2023, Expires: 03/21/2023 [facility] Work Phone: Comment on above: Expected: 01/19/2023 , Expires: 03/21/2023 Start: 01-17-2023 ANNUAL PCP TEAM 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 Start: 01-11-2023 End: 03-13-2023 C reactive protein [Mass/volume] in Serum or Plasma C-REACTIVE PROTEIN (CRP) Lab Routine Diarrhea, unspecified type GERD without esophagitis Expected: 01/11/2023, Expires: 03/13/2023 [facility] Work Phone: Comment on above: Expected: 01/11/2023 , Expires: 03/13/2023 Start: 01-11-2023 End: 03-13-2023 CELIAC COMPREHENSIVE PANEL CELIAC COMPREHENSIVE PANEL Lab Routine Diarrhea, unspecified type GERD without esophagitis Expected: 01/11/2023, Expires: 03/13/2023 [facility] Work Phone: Comment on above: Expected: 01/11/2023 , Expires: 03/13/2023 Start: 01-11-2023 End: 03-13-2023 Comprehensive metabolic 2000 panel - Serum or Plasma [facility] Work Phone: Comment on above: Expected: 01/11/2023 , Expires: 03/13/2023 Start: 01-11-2023 End: 03-13-2023 Erythrocyte sedimentation rate SED RATE WESTERGREN Lab Routine Diarrhea, unspecified type GERD without esophagitis Expected: 01/11/2023, Expires: 03/13/2023 [facility] Work Phone: Comment on above: Expected: 01/11/2023 , Expires: 03/13/2023 Start: 01-11-2023 End: 03-13-2023 Hemoglobin A1c in Blood HGB A1C Lab Routine Dyslipidemia Expected: 01/11/2023, Expires: 03/13/2023 [facility] Work Phone: Comment on above: Expected: 01/11/2023 , Expires: 03/13/2023 Start: 01-11-2023 End: 03-13-2023 HLA-B27 PCR HLA-B27 PCR Lab Routine HLA B27 (HLA B27 positive) Expected: 01/11/2023, Expires: 03/13/2023 [facility] Work Phone: Comment on above: Expected: 01/11/2023 , Expires: 03/13/2023 Start: 01-11-2023 End: 03-13-2023 Lipid 1996 panel - Serum or Plasma LIPID PANEL BASIC Lab Routine Dyslipidemia Expected: 01/11/2023, Expires: 03/13/2023 [facility] Work Phone: Comment on above: Expected: 01/11/2023 , Expires: 03/13/2023 Start: 11-07-2022 Ambulation without limitation [facility] Start: 11-07-2022 Medical regimen orde rs management [facility] Start: 11-07-2022 Patient discharge [facility] Start: 11-07-2022 Procedure discontinued [facility] Start: 11-07-2022 Taking patient vital signs [facility] Start: 11-07-2022 Vital signs measurements [facility] Start: 11-07-2022 Anes xtrnl mid & inn er ear w/bx tympanotomy ANESTH TYMPANOTOMY [facility] Start: 11-07-2022 Myringotomy aspir&/e ustachian tube nfltj anes INCISION OF EARDRUM [facility] Start: 11-07-2022 Medication education [facility] Start: 10-27-2022 End: 11-10-2022 Influenza virus A and B RNA and SARS-CoV-2 (COVID-19) N gene panel - Respiratory specimen by ALEXSANDRA with probe detection COVID WITH FLUA+B, ROUTINE Microbiology Routine Viral illness Expected: 10/27/2022, Expires: 11/10/2022 [facility] Work Phone: Comment on above: Expected: 10/27/2022 , Expires: 11/10/2022 Start: 09-08-2022 End: 11-08-2022 Basic metabolic 2000 panel - Serum or Plasma BASIC METABOLIC PNL Lab STAT Gross hematuria Expected: 09/08/2022, Expires: 11/08/2022 [facility] Work Phone: Comment on above: Expected: 09/08/2022 , Expires: 11/08/2022 Start: 08-10-2022 End: 10-10-2022 25-hydroxyvitamin D3 [Mass/volume] in Serum or Plasma VITAMIN D 25 HYDROXY Lab Routine Fatigue, unspecified type Expected: 08/10/2022, Expires: 10/10/2022 [facility] Work Phone: Comment on above: Expected: 08/10/2022 , Expires: 10/10/2022 Start: 08-10-2022 End: 10-10-2022 CBC W Auto Differential panel - Blood CBC + DIFF Lab Routine Fatigue, unspecified type Expected: 08/10/2022, Expires: 10/10/2022 [facility] Work Phone: Comment on above: Expected: 08/10/2022 , Expires: 10/10/2022 Start: 08-10-2022 End: 10-10-2022 Cobalamin (Vitamin B12) [Mass/volume] in Serum or Plasma VITAMIN B12 BLOOD Lab Routine Fatigue, unspecified type Expected: 08/10/2022, Expires: 10/10/2022 [facility] Work Phone: Comment on above: Expected: 08/10/2022 , Expires: 10/10/2022 Start: 08-10-2022 End: 10-10-2022 Comprehensive metabolic 2000 panel - Serum or Plasma COMP METABOLIC PANEL Lab Routine Fatigue, unspecified type Expected: 08/10/2022, Expires: 10/10/2022 [facility] Work Phone: Comment on above: Expected: 08/10/2022 , Expires: 10/10/2022 Start: 08-10-2022 End: 10-10-2022 Thyrotropin [Units/volume] in Serum or Plasma TSH BLD Lab Routine Fatigue, unspecified type Borderline abnormal thyroid function test Expected: 08/10/2022, Expires: 10/10/2022 [facility] Work Phone: Comment on above: Expected: 08/10/2022 , Expires: 10/10/2022 Start: 08-10-2022 End: 10-10-2022 Thyroxine (T4) free [Mass/volume] in Serum or Plasma T4 FREE/FREE THYROX Lab Routine Fatigue, unspecified type Borderline abnormal thyroid function test Expected: 08/10/2022, Expires: 10/10/2022 [facility] Work Phone: Comment on above: Expected: 08/10/2022 , Expires: 10/10/2022 Start: 08-10-2022 End: 10-10-2022 Triiodothyronine (T3) Free [Mass/volume] in Serum or Plasma T3 FREE BLD Lab Routine Fatigue, unspecified type Borderline abnormal thyroid function test Expected: 08/10/2022, Expires: 10/10/2022 [facility] Work Phone: Comment on above: Expected: 08/10/2022 , Expires: 10/10/2022 Start: 07-21-2022 Influenza vaccination INFLUENZA (#1) [facility] Start: 09-22-2021 Screening for malign ant neoplasm of cervix Cervical Cancer Screening [facility] Start: 09-21-[address] [facility] Start: 03-01-2021 Urine microalbumin profile DTA P,TDAP,TD (2 - Td or Tdap) [facility] Start: 11-24-2020 Ct abdomen & pelvis w/contrast material CT Abdomen and Pelvis with IV Contrast QN-Zlazcst-[id number] ll 2100 Work Phone: Start: 11-24-2020 Ct thorax w/contrast material CT Chest with Contrast [id number]-[id number] ll 2[address] Work Phone: Start: 08-24-2017 End: 08-24-2017 Mammogram, both breasts Mammogram, Diagnostic, both breasts [facility] Start: 08-24-2017 End: 08-24-2017 Us exam, breast(s) US Breast(s) [facility] Start: 08-24-2017 End: 08-24-2017 Appointment Appointment [facility] Start: 09-27-2016 End: 09-27-2016 Radex ankle complete minimum 3 views X-Ray, Ankle [facility] Start: 1997 Hepatitis B Vaccine (1 of 3 - 19+ 3-dose series) Hepatitis B Vaccine (1 of 3 - 19+ 3-dose series) [facility] Start: 1997 ONE PNEUMOVAX PRIOR TO AGE 65 ONE PNEUMOVAX PRIOR TO AGE 63 [facility] Start: 1997 Shingrix Vaccine (1 of 2) Simmons grix Vaccine (1 of 2) [facility] Start: 1996 HIV SCREENING HIV SCREENING [facility] Start: 1996 HIV screening HIV Screening [facility] Start: 1984 PNEUMOCOCCAL (1 - PCV) PNEUMOC OCCAL (1 - PCV) [facility] Start: 1978 HEPATITIS B (1 of 3 - 3-dose series) HEPATITIS B (1 of 3 - 3-dose series) [facility] Start: 1978 Hepatitis B Vaccine (1 of 3 - 3-dose series) Hepatitis B Vaccine (1 of 3 - 3-dose series) [facility] Bacteria identified in Urine by Culture URINE CULTURE Microbiology Routine Gross hematuria Ordered: 09/08/2022 [facility] Work Phone: Comment on above: Ordered: 09/08/2022 CYTOLOGY NON-CARE CONNECTOR CYTOLOGY NON-GY N Lab Routine Gross hematuria Painless hematuria Ordered: 10/11/2022 [facility] Work Phone: Comment on above: Ordered: 10/11/2022 End: 04-24-2026 DBT Breast - bilateral screening JULIENNE SCREENING W ANDREAS Radiology Routine Encounter for screening mammogram for malignant neoplasm of breast 1 Occurrences starting 03/25/2025 until 04/24/2026 [facility] Comment on above: 1 Occurrences starti ng 03/25/2025 until 04/24/2026 End: 09-20-2025 Echocardiography ECHO Cardiology Routine Elevated blood pressure reading without diagnosis of hypertension 1 Occurrences starting 09/20/2024 until 09/20/2025 [facility] Work Phone: Comment on above: 1 Occurrences starti ng 09/20/2024 until 09/20/2025 Gliadin peptide IgA Ab [Units/volume] in Serum [facility] Gliadin peptide IgG Ab [Units/volume] in Serum [facility] HLA-B27 [Presence] b y ALEXSANDRA with probe detection [facility] IgG [Mass/volume] in Serum or Plasma [facility] End: 09-09-2023 JULIENNE SCREENING W ANDREAS JULIENNE SCREENING W [facility]RE[facility] Radiology Routine Encounter for screening mammogram for malignant neoplasm of breast 1 Occurrences starting 08/10/2022 until 09/09/2023 [facility] Work Phone: Comment on above: 1 Occurrences starti ng 08/10/2022 until 09/09/2023 End: 11-01-2024 JULIENNE SCREENING W ANDREAS JULIENNE SCREENING W ANDRE[facility] Radiology Routine Encounter for screening mammogram for malignant neoplasm of breast 1 Occurrences starting 10/03/2023 until 11/01/2024 [facility] Work Phone: Comment on above: 1 Occurrences starti ng 10/03/2023 until 11/01/2024 Measurement of immun oglobulin A in serum specimen [facility] Measurement of immun oglobulin A in serum specimen [facility] End: 06-13-2025 MR Lumbar spine WO contrast MRI LUMBAR SPINE WO IVCON Radiology Routine Acute bilateral low back pain with bilateral sciatica Radiculopathy of lumbar region Paresthesia of skin Pars defect of lumbar spine 1 Occurrences starting 05/14/2024 until 06/13/2025 [facility] Work Phone: Comment on above: 1 Occurrences starti ng 05/14/2024 until 06/13/2025 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 Comment on above: 1 Occurrences starti ng 09/20/2024 until 09/20/2025 End: 09-20-2025 US Renal artery US RENAL ARTERY [facility] Lab Routine Elevated blood pressure reading without diagnosis of hypertension Headache disorder 1 Occurrences starting 09/20/2024 until 09/20/2025 [facility] Comment on above: 1 Occurrences starti ng 09/20/2024 until 09/20/2025 End: 09-20-2025 US.doppler Extremity arteries - bilateral for physiologic artery study PVR ANK PRESS [facility] Lab Routine Elevated blood pressure reading without diagnosis of hypertension Headache disorder Abnormal foot color 1 Occurrences starting 09/20/2024 until 09/20/2025 [facility] Comment on above: 1 Occurrences starti ng 09/20/2024 until 09/20/2025 End: 06-05-2025 XR Lumbar spine 3 Views XR LUMBAR GENERAL 3V AP/LAT/L5-S1 Radiology Routine Acute bilateral low back pain with sciatica, sciatica laterality unspecified 1 Occurrences starting 05/06/2024 until 06/05/2025 [facility] Work Phone: Comment on above: 1 Occurrences starti ng 05/06/2024 until 06/05/2025 [facility] NEGATED: Highlighted row has been ruled out! Planned Goals not documented [id number] ll 2100 Work Phone: Immunizations Immunization Date Immunization Notes Care Provider Abelardo [facility] 09-09-2024 influenza, seasonal, injectable, preservative free Dr. To Longoria DO Work Phone: [facility] 09-14-2023 influenza, injectabl e, quadrivalent, preservative free Dr. To Longoria Work Phone: [facility] 09-14-2023 influenza virus vaccine, unspecified formulation Maureen Zhu APRN.CNP Work Phone: [facility] 01-19-2023 pneumococcal polysaccharide vaccine, 23 valent Estefania Joyce MD Work Phone: [facility] 08-22-2022 influenza, injectabl e, quadrivalent, preservative free Dr. To Longoria Work Phone: [facility] 08-22-2022 influenza, seasonal, injectable Dr. To Longoria Work Phone: [facility] 08-22-2022 influenza virus vaccine, unspecified formulation Luarel Benz DO Work Phone: [facility] 08-10-2022 tetanus toxoid, redu bhupinder diphtheria toxoid, and acellular pertussis vaccine, adsorbed To Longoria DO Work Phone: [facility] Work Phone: 08-05-2022 [facility] Moderna Bivale nt Booster Dr. To Longoria Work Phone: [facility] 09-02-2021 influenza, injectabl e, quadrivalent, preservative free Dr. To Longoria Work Phone: [facility] 09-02-2021 influenza, seasonal, injectable Dr. To Longoria Work Phone: [facility] 12-21-2020 Covid (Moderna) Dr. To castillo Work Phone: [facility] 11-25-2020 Covmolina (Moderna) Dr. To castillo Work Phone: [facility] 08-31-2020 influenza, injectabl e, quadrivalent, preservative free To Longoria DO Work Phone: [facility] Work Phone: 08-30-2018 influenza, injectabl e, quadrivalent, preservative free Dr. To Longoria Work Phone: [facility] 08-30-2018 influenza, seasonal, injectable Dr. To Longoria Work Phone: [facility] 08-17-2017 influenza, injectabl e, quadrivalent, preservative free Dr. To Longoria Work Phone: [facility] 08-17-2017 influenza, seasonal, injectable To Longoria DO Work Phone: [facility] Work Phone: 10-05-2015 influenza, injectabl e, quadrivalent, preservative free Dr. To Longoria Work Phone: [facility] 10-05-2015 influenza, seasonal, injectable Dr. To Longoria Work Phone: [facility] 09-14-2013 influenza virus vaccine, unspecified formulation To Longoria DO Work Phone: [facility] 03-01-2011 tetanus toxoid, redu bhupinder diphtheria toxoid, and acellular pertussis vaccine, adsorbed To Longoria DO Work Phone: [facility] Work Phone: 03-01-2011 tuberculin skin test ; purified protein derivative solution, intradermal Laurel Benz DO Work Phone: [facility] Work Phone: 09-18-2009 novel [id number], all formulations To Longoria DO Work Phone: [facility] Work Phone: 08-21-2009 influenza virus vaccine, live, attenuated, for intranasal use To Longoria DO Work Phone: [facility] Work Phone: 08-26-2008 influenza virus vaccine, unspecified formulation To Longoria DO Work Phone: [facility] Work Phone: 10-19-2007 influenza virus vaccine, unspecified formulation To Longoria DO Work Phone: [facility] Work Phone: 09-15-2005 influenza virus vaccine, unspecified formulation To Mayon DO Work Phone: [facility] Work Phone: Payers Date Payer Category Payer Self-pay [id number] 2011 Private Health Insurance [facility] GENERIC [id number] 2011 Unknown [facility] PPO CONNECT GENERIC [id number] 2011-Present [phone] [address] [place] [address] PPO [id number] 2011 Unknown [id number] 2011 Unknown [id number] 2011 Unknown [id number] 2007 Unknown [id number] Unknown [id number] .2.462 Unknown [id number] 2.16.840.1.441743.3.579 .2.462 Unknown [id number] 2.16.840.1.602582.3.579 .2.462 Unknown [id number] 2.16.840.1.355020.3.579 .2.462 Unknown [id number] 2.16.840.1.694842.3.579 .2.462 Unknown [id number] 2.16.840.1.805598.3.579 .2.462 Unknown [id number] 2.16.840.1.757048.3.579 .2.462 Unknown [id number] 2.16.840.1.220427.3.579 .2.462 Unknown [id number] 2.16.840.1.875962.3.579 .2.462 Unknown [id number] 2.16.840.1.200877.3.579 .2.462 Unknown [id number] 2.16.840.1.396053.3.579 .2.462 Unknown [id number] 2.16.840.1.303974.3.579 .2.462 Unknown [id number] 2.16.840.1.624079.3.579 .2.462 Unknown [id number] 2.16.840.1.278285.3.579 .2.462 Unknown [id number] 2.16.840.1.812411.3.579 .2.462 Unknown [id number] 2.16.840.1.433035.3.579 .2.462 Unknown [id number] 2.16.840.1.601333.3.579 .2.462 Unknown [id number] 2.16.840.1.906499.3.579 .2.462 Social History Date Type Detail Facility Assertion Tobacco smoking consumption unknown (finding) [place] [address] Work Phone: Start: 05-07-2020 End: 05-13-2024 Tobacco smoking status NHIS Never smoked tobacco [facility] Work Phone: Start: 01-17-2022 End: 09-20-2024 Alcohol intake Current drinker of alcohol (finding) [facility] Start: 04-28-2021 End: 11-21-2022 History SDOH Alcohol Frequency 3 [facility] Start: 04-28-2021 End: 11-21-2022 History SDOH Alcohol Std Drinks 1 [facility] Start: 08-31-2010 History SDOH Alcohol Comment Rarely [facility] Start: 04-28-2021 End: 11-21-2022 History SDOH Social Connections Phone 5 [facility] Start: 04-28-2021 End: 11-21-2022 History SDOH Social Connections Get Together 2 [facility] Start: 04-18-[address] [facility] Start: 05-07-2020 End: 09-08-2022 Tobacco Comment Step father smoked in childhood. Spouse ex-smoker last [address] [facility] Start: 1980 Sex Assigned At Female [facility] Start: 07-25-2020 End: 10-11-2022 Exposure to SARS-CoV-2 (event) Not sure [facility] Start: 05-07-2020 End: 09-08-2022 Tobacco use and exposure Smokeless tobacco non-user [facility] Work Phone: Start: 06-22-2022 End: 09-22-2023 Tobacco smoking status NHIS Unknown if ever smoked [facility] Start: 03-24-2020 With Family [facility] Start: 10-20-2020 Non-smoker [facility] Start: 11-21-2022 History SDOH Social Connections Get Together 98 [facility] Start: 11-21-2022 End: 04-25-2023 History of [address] function [facility] Start: 11-21-2022 End: 04-25-2023 Social connection and isolation panel [facility] How often do you get together with friends or relatives? Patient refused [facility] Do you belong to any clubs or organizations such as hinduism groups, unions, fraternal or athletic groups, or school groups? Yes [facility] Are you now , , , , never or living with a partner? [facility] How often to you hav e a drink containing alcohol? Monthly or less [facility] How many standard drinks containing alcohol do you have on a typical day? [address] [facility] How often do you hav e 6 or more drinks on 1 occasion? Never [facility] Do you feel stress - tense, restless, nervous, or anxious, or unable to sleep at night because your mind is troubled all the time - these days [OSQ] To some extent [facility] (I/We) worried elba er (my/our) food would run out before (I/we) got money to buy more. Never true [facility] In the past 12 month s, was there a time when you were not able to pay the mortgage or rent on time? No [facility] Start: 12-14-2021 Gender identity Identifies as female gender (finding) [facility] How often to you hav e a drink containing alcohol? 2-[address] [facility] Start: 03-07-2025 [facility] NE[facility]: Highlighted row [facility] Medical Equipment Procedure Code Equipment Code Equipment Origin al Text Equipment Identifier Dates Repair, hernia, ventral or umbilical, laparoscopic CLIP,[facility] FDA Start: 06-28-2021 Repair, hernia, ventral or umbilical, laparoscopic CLIP,[facility] [employer] FDA Start: 06-28-2021 Repair, hernia, ventral or umbilical, laparoscopic CLIP,[facility] MED [employer]ECK FDA Start: 06-28-2021 Repair, hernia, ventral or umbilical, laparoscopic MESH,VENTRALIGHT ST 6x10 FDA Start: 06-28-2021 Repair, hernia, ventral or umbilical, laparoscopic TACKER,SECURE STRAP FDA Start: 06-28-2021 Repair, hernia, ventral or umbilical, laparoscopic TACKER,SECURE STRAP FDA Start: 06-28-2021 Repair, hernia, ventral or umbilical, laparoscopic CLIP,[facility] MED WECK FDA Start: 06-28-2021 Repair, hernia, ventral or umbilical, laparoscopic CLIP,[facility] MED [employer]ECK FDA Start: 06-28-2021 Repair, hernia, ventral or umbilical, laparoscopic CLIP,[facility]ECK FDA Start: 06-28-2021 Repair, hernia, ventral or umbilical, laparoscopic MESH,VENTRALIGHT ST 6x10 FDA Start: 06-28-2021 Repair, hernia, ventral or umbilical, laparoscopic TACKER,SECURE STRAP FDA Start: 06-28-2021 Repair, hernia, ventral or umbilical, laparoscopic TACKER,SECURE STRAP FDA Start: 06-28-2021 Repair, hernia, ventral or umbilical, laparoscopic CLIP,HE[facility] MED WECK FDA Start: 06-28-2021 Repair, hernia, ventral or umbilical, laparoscopic CLIP,[facility] MED WECK FDA Start: 06-28-2021 Repair, hernia, ventral or umbilical, laparoscopic CLIP,[facility]ECK FDA Start: 06-28-2021 Repair, hernia, ventral or umbilical, laparoscopic MESH,VENTRALIGHT ST 6x10 FDA Start: 06-28-2021 Repair, hernia, ventral or umbilical, laparoscopic TACKER,SECURE STRAP FDA Start: 06-28-2021 Repair, hernia, ventral or umbilical, laparoscopic TACKER,SECURE STRAP FDA Start: 06-28-2021 Repair, hernia, ventral or umbilical, laparoscopic CLIP,HEMOL[employer] MED WECK FDA Start: 06-28-2021 Repair, hernia, ventral or umbilical, laparoscopic CLIP,HE[employer] MED WECK FDA Start: 06-28-2021 Repair, hernia, ventral or umbilical, laparoscopic CLIP,HE[employer] MED WECK FDA Start: 06-28-2021 Repair, hernia, ventral or umbilical, laparoscopic MESH,VENTRALIGHT ST 6x10 FDA Start: 06-28-2021 Repair, hernia, ventral or umbilical, laparoscopic TACKER,SECURE STRAP FDA Start: 06-28-2021 Repair, hernia, ventral or umbilical, laparoscopic TACKER,SECURE STRAP FDA Start: 06-28-2021 Repair, hernia, ventral or umbilical, laparoscopic CLIP,HEMOL[employer] MED WECK FDA Start: 06-28-2021 Repair, hernia, ventral or umbilical, laparoscopic CLIP,HE[employer] MED WECK FDA Start: 06-28-2021 Repair, hernia, ventral or umbilical, laparoscopic CLIP,HEM[employer] MED WECK FDA Start: 06-28-2021 Repair, hernia, ventral or umbilical, laparoscopic MESH,VENTRALIGHT ST 6x10 FDA Start: 06-28-2021 Repair, hernia, ventral or umbilical, laparoscopic TACKER,SECURE STRAP FDA Start: 06-28-2021 Repair, hernia, ventral or umbilical, laparoscopic TACKER,SECURE STRAP FDA Start: 06-28-2021 Repair, hernia, ventral or umbilical, laparoscopic CLIP,HEMOL[employer] MED WECK FDA Start: 06-28-2021 Repair, hernia, ventral or umbilical, laparoscopic CLIP,HE[employer] MED WECK FDA Start: 06-28-2021 Repair, hernia, ventral or umbilical, laparoscopic CLIP,HEMOL[employer] MED WECK FDA Start: 06-28-2021 Repair, hernia, ventral or umbilical, laparoscopic MESH,VENTRALIGHT ST 6x10 FDA Start: 06-28-2021 Repair, hernia, ventral or umbilical, laparoscopic TACKER,SECURE STRAP FDA Start: 06-28-2021 Repair, hernia, ventral or umbilical, laparoscopic TACKER,SECURE STRAP FDA Start: 06-28-2021 Repair, hernia, ventral or umbilical, laparoscopic CLIP,HE[employer]OL[employer] MED WECK FDA Start: 06-28-2021 Repair, hernia, ventral or umbilical, laparoscopic CLIP,HE[employer] MED WECK FDA Start: 06-28-2021 Repair, hernia, ventral or umbilical, laparoscopic CLIP,HE[employer] MED WECK FDA Start: 06-28-2021 Repair, hernia, ventral or umbilical, laparoscopic MESH,VENTRALIGHT ST 6x10 FDA Start: 06-28-2021 Repair, hernia, ventral or umbilical, laparoscopic TACKER,SECURE STRAP FDA Start: 06-28-2021 Repair, hernia, ventral or umbilical, laparoscopic TACKER,SECURE STRAP FDA Start: 06-28-2021 Repair, hernia, ventral or umbilical, laparoscopic CLIP,HEMOL[employer] MED WECK FDA Start: 06-28-2021 Repair, hernia, ventral or umbilical, laparoscopic CLIP,[facility] MED WECK FDA Start: 06-28-2021 Repair, hernia, ventral or umbilical, laparoscopic CLIP,HE[employer]OL[employer] MED WECK FDA Start: 06-28-2021 Repair, hernia, ventral or umbilical, laparoscopic MESH,VENTRALIGHT ST 6x10 FDA Start: 06-28-2021 Repair, hernia, ventral or umbilical, laparoscopic TACKER,SECURE STRAP FDA Start: 06-28-2021 Repair, hernia, ventral or umbilical, laparoscopic TACKER,SECURE STRAP FDA Start: 06-28-2021 Repair, hernia, ventral or umbilical, laparoscopic CLIP,HEMOLOCK MED WECK FDA Start: 06-28-2021 Repair, hernia, ventral or umbilical, laparoscopic CLIP,HEMOLOCK MED WECK FDA Start: 06-28-2021 Repair, hernia, ventral or umbilical, laparoscopic CLIP,HEMOLOCK MED WECK FDA Start: 06-28-2021 Repair, hernia, ventral or umbilical, laparoscopic MESH,VENTRALIGHT ST 6x10 FDA Start: 06-28-2021 Repair, hernia, ventral or umbilical, laparoscopic TACKER,SECURE STRAP FDA Start: 06-28-2021 Repair, hernia, ventral or umbilical, laparoscopic TACKER,SECURE STRAP FDA Start: 06-28-2021 Repair, hernia, ventral or umbilical, laparoscopic CLIP,HEMOL[employer] MED WECK FDA Start: 06-28-2021 Repair, hernia, ventral or umbilical, laparoscopic CLIP,HEM[employer] MED WECK FDA Start: 06-28-2021 Repair, hernia, ventral or umbilical, laparoscopic CLIP,HEM[employer] MED WECK FDA Start: 06-28-2021 Repair, hernia, ventral or umbilical, laparoscopic MESH,VENTRALIGHT ST 6x10 FDA Start: 06-28-2021 Repair, hernia, ventral or umbilical, laparoscopic TACKER,SECURE STRAP FDA Start: 06-28-2021 Repair, hernia, ventral or umbilical, laparoscopic TACKER,SECURE STRAP FDA Start: 06-28-2021 Repair, hernia, ventral or umbilical, laparoscopic CLIP,[facility] MED WECK FDA Start: 06-28-2021 Repair, hernia, ventral or umbilical, laparoscopic CLIP,[facility] MED WECK FDA Start: 06-28-2021 Repair, hernia, ventral or umbilical, laparoscopic CLIP,[facility] WECK FDA Start: 06-28-2021 Repair, hernia, ventral or umbilical, laparoscopic MESH,VENTRALIGHT ST 6x10 FDA Start: 06-28-2021 Repair, hernia, ventral or umbilical, laparoscopic TACKER,SECURE STRAP FDA Start: 06-28-2021 Repair, hernia, ventral or umbilical, laparoscopic TACKER,SECURE STRAP FDA Start: 06-28-2021 Repair, hernia, ventral or umbilical, laparoscopic CLIP,HEMOL[employer] MED WECK FDA Start: 06-28-2021 Repair, hernia, ventral or umbilical, laparoscopic CLIP,HEMOL[employer] MED WECK FDA Start: 06-28-2021 Repair, hernia, ventral or umbilical, laparoscopic CLIP,HEMOL[employer] MED WECK FDA Start: 06-28-2021 Repair, hernia, ventral or umbilical, laparoscopic MESH,VENTRALIGHT ST 6x10 FDA Start: 06-28-2021 Repair, hernia, ventral or umbilical, laparoscopic TACKER,SECURE STRAP FDA Start: 06-28-2021 Repair, hernia, ventral or umbilical, laparoscopic TACKER,SECURE STRAP FDA Start: 06-28-2021 Repair, hernia, ventral or umbilical, laparoscopic CLIP,HEMOLOCK MED WECK FDA Start: 06-28-2021 Repair, hernia, ventral or umbilical, laparoscopic CLIP,HEMOLOCK MED WECK FDA Start: 06-28-2021 Repair, hernia, ventral or umbilical, laparoscopic CLIP,HEMOL[employer] MED WECK FDA Start: 06-28-2021 Repair, hernia, ventral or umbilical, laparoscopic MESH,VENTRALIGHT ST 6x10 FDA Start: 06-28-2021 Repair, hernia, ventral or umbilical, laparoscopic TACKER,SECURE STRAP FDA Start: 06-28-2021 Repair, hernia, ventral or umbilical, laparoscopic TACKER,SECURE STRAP FDA Start: 06-28-2021 Repair, hernia, ventral or umbilical, laparoscopic CLIP,HEMOLOCK MED WECK FDA Start: 06-28-2021 Repair, hernia, ventral or umbilical, laparoscopic CLIP,HEMOL[employer] MED WECK FDA Start: 06-28-2021 Repair, hernia, ventral or umbilical, laparoscopic CLIP,HE[employer] MED WECK FDA Start: 06-28-2021 Repair, hernia, ventral or umbilical, laparoscopic MESH,VENTRALIGHT ST 6x10 FDA Start: 06-28-2021 Repair, hernia, ventral or umbilical, laparoscopic TACKER,SECURE STRAP FDA Start: 06-28-2021 Repair, hernia, ventral or umbilical, laparoscopic TACKER,SECURE STRAP FDA Start: 06-28-2021 Repair, hernia, ventral or umbilical, laparoscopic CLIP,HEMOL[employer] MED WECK FDA Start: 06-28-2021 Repair, hernia, ventral or umbilical, laparoscopic CLIP,[facility] MED WECK FDA Start: 06-28-2021 Repair, hernia, ventral or umbilical, laparoscopic CLIP,[facility] MED WECK FDA Start: 06-28-2021 Repair, hernia, ventral or umbilical, laparoscopic MESH,VENTRALIGHT ST 6x10 FDA Start: 06-28-2021 Repair, hernia, ventral or umbilical, laparoscopic TACKER,SECURE STRAP FDA Start: 06-28-2021 Repair, hernia, ventral or umbilical, laparoscopic TACKER,SECURE STRAP FDA Start: 06-28-2021 Repair, hernia, ventral or umbilical, laparoscopic CLIP,HEMOLOCK KARY WECK FDA Start: 06-28-2021 Repair, hernia, ventral or umbilical, laparoscopic CLIP,[facility] MED WECK FDA Start: 06-28-2021 Repair, hernia, ventral or umbilical, laparoscopic CLIP,[facility] MED WECK FDA Start: 06-28-2021 Repair, hernia, ventral or umbilical, laparoscopic MESH,VENTRALIGHT ST 6x10 FDA Start: 06-28-2021 Repair, hernia, ventral or umbilical, laparoscopic TACKER,SECURE STRAP FDA Start: 06-28-2021 Repair, hernia, ventral or umbilical, laparoscopic TACKER,SECURE STRAP FDA Start: 06-28-2021 Repair, hernia, ventral or umbilical, laparoscopic CLIP,[facility] MED WECK FDA Start: 06-28-2021 Repair, hernia, ventral or umbilical, laparoscopic CLIP,[facility] MED [employer]ECK FDA Start: 06-28-2021 Repair, hernia, ventral or umbilical, laparoscopic CLIP,[facility] MED WECK FDA Start: 06-28-2021 Repair, hernia, ventral or umbilical, laparoscopic MESH,VENTRALIGHT ST 6x10 FDA Start: 06-28-2021 Repair, hernia, ventral or umbilical, laparoscopic TACKER,SECURE STRAP FDA Start: 06-28-2021 Repair, hernia, ventral or umbilical, laparoscopic TACKER,SECURE STRAP FDA Start: 06-28-2021 Repair, hernia, ventral or umbilical, laparoscopic CLIP,HEMOL[employer] MED WECK FDA Start: 06-28-2021 Repair, hernia, ventral or umbilical, laparoscopic CLIP,[facility] MED WECK FDA Start: 06-28-2021 Repair, hernia, ventral or umbilical, laparoscopic CLIP,[facility] MED WECK FDA Start: 06-28-2021 Repair, hernia, ventral or umbilical, laparoscopic MESH,VENTRALIGHT ST 6x10 FDA Start: 06-28-2021 Repair, hernia, ventral or umbilical, laparoscopic TACKER,SECURE STRAP FDA Start: 06-28-2021 Repair, hernia, ventral or umbilical, laparoscopic TACKER,SECURE STRAP FDA Start: 06-28-2021 Repair, hernia, ventral or umbilical, laparoscopic CLIP,HEMOL[employer] MED WECK FDA Start: 06-28-2021 Repair, hernia, ventral or umbilical, laparoscopic CLIP,HEM[employer] MED WECK FDA Start: 06-28-2021 Repair, hernia, ventral or umbilical, laparoscopic CLIP,[facility] MED WECK FDA Start: 06-28-2021 Repair, hernia, ventral or umbilical, laparoscopic MESH,VENTRALIGHT ST 6x10 FDA Start: 06-28-2021 Repair, hernia, ventral or umbilical, laparoscopic TACKER,SECURE STRAP FDA Start: 06-28-2021 Repair, hernia, ventral or umbilical, laparoscopic TACKER,SECURE STRAP FDA Start: 06-28-2021 Repair, hernia, ventral or umbilical, laparoscopic CLIP,[facility] MED WECK FDA Start: 06-28-2021 Repair, hernia, ventral or umbilical, laparoscopic CLIP,[facility] MED [employer]ECK FDA Start: 06-28-2021 Repair, hernia, ventral or umbilical, laparoscopic CLIP,[facility] MED WECK FDA Start: 06-28-2021 Repair, hernia, ventral or umbilical, laparoscopic MESH,VENTRALIGHT ST 6x10 FDA Start: 06-28-2021 Repair, hernia, ventral or umbilical, laparoscopic TACKER,SECURE STRAP FDA Start: 06-28-2021 Repair, hernia, ventral or umbilical, laparoscopic TACKER,SECURE STRAP FDA Start: 06-28-2021 Repair, hernia, ventral or umbilical, laparoscopic CLIP,[facility] MED WECK FDA Start: 06-28-2021 Repair, hernia, ventral or umbilical, laparoscopic CLIP,[facility] MED [employer]ECK FDA Start: 06-28-2021 Repair, hernia, ventral or umbilical, laparoscopic CLIP,[facility] MED WECK FDA Start: 06-28-2021 Repair, hernia, ventral or umbilical, laparoscopic MESH,VENTRALIGHT ST 6x10 FDA Start: 06-28-2021 Repair, hernia, ventral or umbilical, laparoscopic TACKER,SECURE STRAP FDA Start: 06-28-2021 Repair, hernia, ventral or umbilical, laparoscopic TACKER,SECURE STRAP FDA Start: 06-28-2021 Repair, hernia, ventral or umbilical, laparoscopic CLIP,[facility] MED WECK FDA Start: 06-28-2021 Repair, hernia, ventral or umbilical, laparoscopic CLIP,[facility] MED WECK FDA Start: 06-28-2021 Repair, hernia, ventral or umbilical, laparoscopic CLIP,[facility] MED WECK FDA Start: 06-28-2021 Repair, hernia, ventral or umbilical, laparoscopic MESH,VENTRALIGHT ST 6x10 FDA Start: 06-28-2021 Repair, hernia, ventral or umbilical, laparoscopic TACKER,SECURE STRAP FDA Start: 06-28-2021 Repair, hernia, ventral or umbilical, laparoscopic TACKER,SECURE STRAP FDA Start: 06-28-2021 Repair, hernia, ventral or umbilical, laparoscopic CLIP,[facility]ECK FDA Start: 06-28-2021 Repair, hernia, ventral or umbilical, laparoscopic CLIP,[facility] FDA Start: 06-28-2021 Repair, hernia, ventral or umbilical, laparoscopic CLIP,[facility]ECK FDA Start: 06-28-2021 Repair, hernia, ventral or umbilical, laparoscopic MESH,VENTRALIGHT ST 6x10 FDA Start: 06-28-2021 Repair, hernia, ventral or umbilical, laparoscopic TACKER,SECURE STRAP FDA Start: 06-28-2021 Repair, hernia, ventral or umbilical, laparoscopic TACKER,SECURE STRAP FDA Start: 06-28-2021 Repair, hernia, ventral or umbilical, laparoscopic CLIP,[facility] [facility]K FDA Start: 06-28-2021 Repair, hernia, ventral or umbilical, laparoscopic CLIP,[facility]ECK FDA Start: 06-28-2021 Repair, hernia, ventral or umbilical, laparoscopic CLIP,[facility] FDA Start: 06-28-2021 Repair, hernia, ventral or umbilical, laparoscopic MESH,VENTRALIGHT ST 6x10 FDA Start: 06-28-2021 Repair, hernia, ventral or umbilical, laparoscopic TACKER,SECURE STRAP FDA Start: 06-28-2021 Repair, hernia, ventral or umbilical, laparoscopic TACKER,SECURE STRAP FDA Start: 06-28-2021 Laparoscopy with vaginal hysterectomy ROSEANN 3GRM HEMOSTAT ABS FDA Start: 05-18-2021 Laparoscopy with vaginal hysterectomy ROSEANN 3GRM HEMOSTAT ABS FDA Start: 05-18-2021 Laparoscopy with vaginal hysterectomy ROSEANN 3GRM HEMOSTAT ABS FDA Start: 05-18-2021 Laparoscopy with vaginal hysterectomy ROSEANN 3GRM HEMOSTAT ABS FDA Start: 05-18-2021 Laparoscopy with vaginal hysterectomy ROSEANN 3GRM HEMOSTAT ABS FDA Start: 05-18-2021 Laparoscopy with vaginal hysterectomy ROSEANN 3GRM HEMOSTAT ABS FDA Start: 05-18-2021 Laparoscopy with vaginal hysterectomy ROSEANN 3GRM HEMOSTAT ABS FDA Start: 05-18-2021 Laparoscopy with vaginal hysterectomy ROSEANN 3GRM HEMOSTAT ABS FDA Start: 05-18-2021 Laparoscopy with vaginal hysterectomy ROSEANN 3GRM HEMOSTAT ABS FDA Start: 05-18-2021 Laparoscopy with vaginal hysterectomy ROSEANN 3GRM HEMOSTAT ABS FDA Start: 05-18-2021 Laparoscopy with vaginal hysterectomy ROSEANN 3GRM HEMOSTAT ABS FDA Start: 05-18-2021 Laparoscopy with vaginal hysterectomy ROSEANN 3GRM HEMOSTAT ABS FDA Start: 05-18-2021 Laparoscopy with vaginal hysterectomy ROSEANN 3GRM HEMOSTAT ABS FDA Start: 05-18-2021 Laparoscopy with vaginal hysterectomy ROSEANN 3GRM HEMOSTAT ABS FDA Start: 05-18-2021 Laparoscopy with vaginal hysterectomy ROSEANN 3GRM HEMOSTAT ABS FDA Start: 05-18-2021 Laparoscopy with vaginal hysterectomy ROSEANN 3GRM HEMOSTAT ABS FDA Start: 05-18-2021 Laparoscopy with vaginal hysterectomy ROSEANN 3GRM HEMOSTAT ABS FDA Start: 05-18-2021 Laparoscopy with vaginal hysterectomy ROSEANN 3GRM HEMOSTAT ABS FDA Start: 05-18-2021 Laparoscopy with vaginal hysterectomy ROSEANN 3GRM HEMOSTAT ABS FDA Start: 05-18-2021 Laparoscopy with vaginal hysterectomy ROSEANN 3GRM HEMOSTAT ABS FDA Start: 05-18-2021 Laparoscopy with vaginal hysterectomy ROSEANN 3GRM HEMOSTAT ABS FDA Start: 05-18-2021 Laparoscopy with vaginal hysterectomy ROSEANN 3GRM HEMOSTAT ABS FDA Start: 05-18-2021 Laparoscopy with vaginal hysterectomy ROSEANN 3GRM HEMOSTAT ABS FDA Start: 05-18-2021 Laparoscopy with vaginal hysterectomy ROSEANN 3GRM HEMOSTAT ABS FDA Start: 05-18-2021 TUBE,KATELYN BRETT IN VENT FDA Start: 11-07-2022 TUBE,KATELYN BRETT IN VENT FDA Start: 11-07-2022 TUBE,KATELYN BRETT IN VENT FDA Start: 11-07-2022 TUBE,KATELYN BRETT IN VENT FDA Start: 11-07-2022 TUBE,KATELYN BRETT IN VENT FDA Start: 11-07-2022 TUBE,KATELYN BRETT IN VENT FDA Start: 11-07-2022 TUBE,KATELYN BRETT IN VENT FDA Start: 11-07-2022 PROBE,PH CAPSULE WITH DEL SYS FDA Start: 02-16-2023 TUBE,KATELYN BRETT IN VENT FDA Start: 11-07-2022 PROBE,PH CAPSULE WITH DEL SYS FDA Start: 02-16-2023 TUBE,KATELYN BRETT IN VENT FDA Start: 11-07-2022 PROBE,PH CAPSULE WITH DEL SYS FDA Start: 02-16-2023 TUBE,KATELYN BRETT IN VENT FDA Start: 11-07-2022 PROBE,PH CAPSULE WITH DEL SYS FDA Start: 02-16-2023 TUBE,KATELYN BRETT IN VENT FDA Start: 11-07-2022 PROBE,PH CAPSULE WITH DEL SYS FDA Start: 02-16-2023 TUBE,KATELYN BRETT IN VENT FDA Start: 11-07-2022 PROBE,PH CAPSULE WITH DEL SYS FDA Start: 02-16-2023 TUBE,KATELYN BRETT IN VENT FDA Start: 11-07-2022 PROBE,PH CAPSULE WITH DEL SYS FDA Start: 02-16-2023 TUBE,KATELYN BRETT IN VENT FDA Start: 11-07-2022 PROBE,PH CAPSULE WITH DEL SYS FDA Start: 02-16-2023 TUBE,KATELYN BRETT IN VENT FDA Start: 11-07-2022 PROBE,PH CAPSULE WITH DEL SYS FDA Start: 02-16-2023 TUBE,KATELYN BRETT IN VENT FDA Start: 11-07-2022 PROBE,PH CAPSULE WITH DEL SYS FDA Start: 02-16-2023 TUBE,KATELYN BRETT IN VENT FDA Start: 11-07-2022 PROBE,PH CAPSULE WITH DEL SYS FDA Start: 02-16-2023 TUBE,KATELYN BRETT IN VENT FDA Start: 11-07-2022 PROBE,PH CAPSULE WITH DEL SYS FDA Start: 02-16-2023 TUBE,KATELYN BRETT IN VENT FDA Start: 11-07-2022 PROBE,PH CAPSULE WITH DEL SYS FDA Start: 02-16-2023 TUBE,KATELYN BRETT IN VENT FDA Start: 11-07-2022 PROBE,PH CAPSULE WITH DEL SYS FDA Start: 02-16-2023 TUBE,KATELYN BRETT IN VENT FDA Start: 11-07-2022 PROBE,PH CAPSULE WITH DEL SYS FDA Start: 02-16-2023 Goals Date Patient Goal Desired Activity /State Functional Status Date Assessment Result Facility 04-06-2020 Are you deaf, or do you have serious difficulty hearing No 04/06/2020 1:56 PM Ada Roberts, DON [facility] 04-06-2020 Are you blind, or do you have serious difficulty seeing, even when wearing glasses No 04/06/2020 1:56 PM Ada Roberts, DON No [facility] 04-06-2020 Do you have serious difficulty walking or climbing stairs No 04/06/2020 1:56 PM Ada Roberts, DON No [facility] 04-06-2020 Do you have difficul ty dressing or bathing No 04/06/2020 1:56 PM Ada Roberts, DON [facility] 04-06-2020 Because of a physica l, mental, or emotional condition, do you have difficulty doing errands alone such as visiting a physician's office or shopping No 04/06/2020 1:56 PM Ada Roberts, DON [facility] NEGATED: Highlighted row Functional performance Functional status health issues are not documented Disease [id number] 2099 Work Phone: Mental Status Date Assessment Result Facility 11-14-2023 Cognitive function Touch/Shaking [facility] Work Phone: 11-14-2023 Cognitive function Patient Orien tation Person;Time [facility] Work Phone: 10-27-2023 Cognitive function Awake;Alert;Appropriat e [facility] Work Phone: 09-21-2023 Cognitive function Voice/Name [facility] Work Phone: 02-16-2023 Cognitive function Level Of Cons ciousness Sedated [facility] Work Phone: 02-16-2023 Cognitive function Patient Orien tation Person;Place;Time [facility] Work Phone: 11-07-2022 Cognitive function Voice/Name [facility] Work Phone: 04-06-2020 Because of a physical, mental, or emotional condition, do you have serious difficulty concentrating, remembering, or making decisions No 04/06/2020 1:56 PM Ada Roberts RN No [facility] NEGATED: Highlighted row Cognitive function [Interpretation] Cognitive status health issues are not documented Disease [facility] Work Phone: Clinical Notes 12-06-2013 to 07-06-2025 Note Date & Type Note Facility 07-06-2025 Progress note [facility] 07-06-2025 Progress note Note Date/Time July 06, 2025 10:29am [facility] [address], [address] [place], [place] [address] OFFICE VISIT Date of Service: 07/06/25 MR#: [id number] Acct: [id number] Name: BRICE GOMEZ Rep #: [id number] : 1980 Provider: VITO López Age/Sex: 44/F Location: [facility] Status: Signed Intake Vital Signs 05/16/25 15:54 07/06/25 10:10 Height 5 ft 5 ft Weight: 148 lb 6 oz 139 lb BMI 29.0 27.1 BP 125/88 H 132/86 H Blood Pressure Location Lt brachial Position Sitting Pulse 94 Pulse Source Monitor Temp 98.5 F Temp Source Oral Pulse Oximetry (%) 98 Oxygen Delivery Method room air Intake Visit Reasons: CONCERN FOR SINUS INFECTION Chief Complaint: Sinus Congestion Accompanied by: Self Allergies cephalexin monohydrate (From Keflex) Allergy (Verified 07/06/25 10:09) Rash clarithromycin (From Biaxin) Allergy (Verified 07/06/25 10:09) Rash metronidazole (From Flagyl) Allergy (Verified 07/06/25 10:09) Rash minocycline Allergy (Verified 07/06/25 10:09) Rash Penicillins Allergy (Verified 07/06/25 10:09) VISHNU RONDONS citalopram hydrobromide (From Celexa) Adverse Reaction (Verified 07/06/25 10:09) Nausea/Vom/Diarrhea Medications ?Medication ?Instructions ?Recorded ?Confirmed ?Type multivitamin with minerals 1 ea PO DAILY 09/02/1906/20 History cetirizine 10 mg capsule (Zyrtec) 10 mg PO DAILY 09/3007/06/25 History albuterol sulfate 90 mcg/actuation 1 inh inhalation Q6 H PRN sob 05/10/21 07/06/25 History aerosol inhaler acetaminophen 325 mg capsule 325 mg PO ONCE PRN Pain 0 07/13/21 07/06/25 History (Tylenol) ibuprofen 400 mg tablet 400 mg PO Q8H PRN Pain 08/0907/06/25 History esomeprazole magnesium 40 mg 40 mg PO DAILY 09/22/21 0 07/06/25 History capsule,delayed release (Nexium) cholecalciferol (vitamin D3) 25 25 mcg PO DAILY 07/06/25 History mcg (1,000 unit) capsule mometasone 50 mcg/actuation nasal 2 spray intranasal D AILY PRN 06/22/22 07/06/25 History spray (Nasonex) ALLERGIES clonazepam 0.5 mg tablet 0.5 mg PO PRN PRN Anxiety 07/06/25 History bupropion HCl 300 mg 24 hr tablet, 400 mg PO DAILY 07/1307/06/25 History extended release cyclobenzaprine 5 mg tablet 5 mg PO QHS 06/11/2407/06 History vilazodone 40 mg tablet 40 mg PO QDAY 06/11/2407/06 History celecoxib 100 mg capsule (Celebrex) 100 mg PO BID 10/2007/06/25 History estradiol 0.075 mg/24 hr 1 patch transdermal 2XW #8 e a 12/16/24 07/06/25 Rx semiweekly transdermal patch (Vivelle-Dot) azathioprine 50 mg tablet 100 mg (2 x 50 mg) PO DAILY #60 02/03/25 07/06/25 Rx TABLETS estradiol 10 mcg vaginal tablet 10 mcg vaginal DAILY 2 weeks #20 05/16/25 07/06/25 Rx (Yuvafem) tabs tirzepatide (weight loss) 2.5 mg subcut Weight loss 07/06/25 History mg/0.5 mL subcutaneous pen injector (Zepbound) metoprolol succinate 25 mg 12.5 mg PO QDAY 06/25/25 History tablet,extended release 24 hr azithromycin 250 mg tablet See Rx Instructions PO .COM PLEX #6 07/06/25 07/06/25 Rx (Zithromax Z-Jamey) tabs benzonatate 200 mg capsule 200 mg PO TID PRN cough #20 caps 07/06/25 07/06/25 Rx Nurse's Note: Sinus congestion, sinus pressure, cough. Taking medrol dosepak and no relief. [facility] Medical History Laceration of right thumb History of Crohn's disease Difficulty swallowing Depression Anxiety Easy bruising Gastric reflux Low serum IgE Normal Holter exam Postoperative wound seroma Abdominal pain Ventral incisional hernia without obstruction or gangrene Alcohol use History of renal disease Anemia Back pain Migraine headache Injury of head and neck History of hiatal hernia History of IBS Non-smoker CPAP (continuous positive airway pressure) dependence Chronic cough Shortness of breath on exertion Hx of echocardiogram History of stress test Cardiology follow-up encounter History of irregular heartbeat Ventral incisional hernia without obstruction or gangrene Diarrhea Constipation Sleep apnea History of severe acute respiratory syndrome coronavirus 2 (SARS-CoV-2) disease Depression with anxiety neck and back pain Knee pain Surgical History History of esophagogastroduodenoscopy (EGD) History of placement of ear tubes S/P right hemicolectomy Hx of colonoscopy History of ventral hernia repair History of LAVH S/P laparoscopic assisted vaginal hysterectomy (LAVH) Hx of colonoscopy History of colectomy H/O prior ablation treatment History of dilatation and curettage History of eye surgery History of wisdom tooth extraction History of breast biopsy history cysto with stent insertion Hx of tubal ligation History of Family History Grandmother Atrial fibrillation Hypertension Mother Hypertension Mitral valve prolapse Grandfather Cancer Esophageal cancer Social History adopted: No household members: spouse and children housing: house number of children: 2 current occupational status: employed 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 occupational exposures/hazards: Yes pets and animals: Yes leisure activities: exercise and reading Smoking Status: Never smoker alcohol intake: current alcohol intake frequency: a few times a month substance use type: does not use caffeine: Yes Type: other Number of servings: 1 what type of physical activity do you participate in: walking and bicycling frequency: 3-4 times per week seatbelt use: always do you feel safe at home: Yes 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 She is currently taking Medrol Dosepak with no relief. Her symptoms have been ongoing for 10 days. She was given a Medrol dosepak for pain relieve. She uses OTC medications chronically. ROS Const Constitutional: No body ache, chills, fatigue, fever(s), headache(s) or change in appetite Eyes Eyes: No blurry vision, change in vision, double vision, irritation, discharge, vision loss, dry eyes, bulging eyes, floaters, visual disturbances, eye pain, Light sensitivity, spots in vision, tunnel vision or other ENT ENT: Positive for sinus pressure and sinus pain; No ear or mastoid pain, ear discharge, ear pressure, tinnitus, dizziness/vertigo, nosebleed/epistaxis, nasal congestion, nose pain, nasal discharge, post nasal drip, headache(s), facial pain, dental pain, difficulty swallowing, bad breath, hoarseness, lip swelling, mouth lesions, mouth pain, neck pain, sore throat, tongue swelling or throat swelling Resp Respiratory: Positive for cough Cough: Yes productive and change in phlegm color(Yellow); No chest congestion, hemoptysis, pain on inspiration, shortness of breath, pain with cough, stridor or wheezing Cardio Cardiology: No chest pain at rest, chest pain with exertion, shortness of breath, dyspnea on exertion or lightheadedness Gastro GI: No abdominal pain, change in bowel habits or difficulty swallowing Genitourinary-Female: No burning urination or urinary frequency Musc Musculoskeletal: No joint pain or neck pain Skin Skin: No rash Neuro Neurology: No headache(s) or visual disturbances Psych Psychiatric: No change in appetite Endo Endocrine: No fatigue Aller/Imm Allergy/Immunologic: No lip swelling, throat swelling, tongue swelling or wheezing Exam Const General: cooperative, healthy appearing, comfortable and no acute distress Orientation: alert, awake and oriented x3 HENMT Head: normal to inspection and normocephalic Ears: hearing grossly normal bilaterally, external ears normal and TM's normal bilaterally Nose: external nose normal, nares normal and no nasal discharge Face and sinus: normal facial exam and sinus tenderness ethmoid and maxillary Mouth: oral mucosae normal, lip normal, tongue normal, oropharynx normal, moist mucous membranes and other (petechiae on uvula) Throat: posterior oropharynx normal, tonsils normal, uvula midline and no postnasal drainage Eyes General: appearance normal, both eyes and all related structures Neck Neck: normal visual inspection and no lymphadenopathy Carotids: normal carotid upstroke Lymphatic: no lymphadenopathy noted Chest Chest palpation & inspection: normal inspection of the chest Resp Effort & Inspection: normal respiratory effort, able to speak in complete sentences, symmetric chest movement, no cough and no stridor Auscultation: Bilateral: Clear to Auscultation Cardio Rate: regular rate Rhythm: regular rhythm Heart Sounds: S1 normal, S2 normal and no murmurs GI Inspection: normal to inspection Auscultation: normal bowel sounds Palpation: soft Skin General: no rashes or lesions noted Neuro Speech: speech normal Extrem General: normal to inspection and capillary refill normal Coding Level of Care Code Off vis,est,level 3 Diagnoses Acute non-recurrent maxillary sinusitis J01.00 Chronicity: acute Recurrence: non-recurrent Assessment and Plan Assessment and Plan (1) Maxillary sinusitis: Status: Resolved Qualifiers: Chronicity: acute Recurrence: non-recurrent Qualified Code(s): J01.00 - Acute maxillary sinusitis, unspecified Plan: Will treat as prescribed. Encouraged to get plenty of rest, drink lots of clear liquids, and use Tylenol or Ibuprofen (unless contraindicated) for fever and comfort. Patient also educated on other symptomatic management techniques. To beseen in 7-10 days if no improvement; sooner if worsening of symptoms.? Patient advised of potential red flags and when appropriate to report to the ED.? Patient verbalized understanding and agreement with all the above. Medications: New benzonatate 200 mg PO TID PRN 20 caps 0RF cough azithromycin (Zithromax Z-Jamey) For 250 mg dose pack: take 500 mg today (day 1), then 250 mg for 4 days (days 2-5) PO 6 tabs 0RF 07/06/25 1029 <Electronically signed by Jonathan DOWNSC> Date _ Jonathan López NP [employer] Cos[employer] Signature: Date (if applicable) CC: Dr. To Longoria, DO ~ [facility] Work Phone: 1(186) 765-117906-27-2025 Evaluation note* Diagnosis Onset Date Resolution Status Admit Date Climacteric acute May 16 3:34pm [facility] Work Phone: 1(996) 241-792306-27-2025 Evaluation note* Diagnosis Onset Date Resolution Status Admit Date Climacteric acute May 16 3:34pm GERD (gastroesophageal reflu x disease) acute June 25, 2025 2:20pm Diarrhea chronic June 25 2:20pm Crohn's disease suspected June 2:20pm Personal history of colonic polyps resolved June 25, 2025 2:20pm S/P right hemicolectomy inactive A ugust 2024 2:20pm Maxillary sinusitis resolved Augus t 2024 10:01am [facility] Work Phone: 1(628) 355-209306-27-2025 Progress [facility] [address], [address] [place] [address] OFFICE VISIT Date of Service: 05/16/25 MR#: [id number] Acct: [id number] Name: BRICE GOMEZ Rep #: [id number] : 1980 Provider: Dr. Deepak Garrison MD Age/Sex: 44/F Location: [facility] Status: Signed Intake Vital Signs 12/16/24 11:12 05/16/25 15:54 Height 5 ft 5 ft Weight: 148 lb 6 oz BMI 29.0 BP 125/88 H Intake Visit Reasons: F/U hormone levels Chief Complaint: 4 Week med check Slasher Sawyer Required: No Is patient in pain?: No Allergies cephalexin monohydrate (From Keflex) Allergy (Verified 05/16/25 15:55) Rash clarithromycin (From Biaxin) Allergy (Verified 05/16/25 15:55) Rash metronidazole (From Flagyl) Allergy (Verified 05/16/25 15:55) Rash minocycline Allergy (Verified 05/16/25 15:55) Rash Penicillins Allergy (Verified 05/16/25 15:55) VISHNU MCCALL citalopram hydrobromide (From Celexa) Adverse Reaction (Verified 05/16/25 15:55) Nausea/Vom/Diarrhea Medications ?Medication ?Instructions ?Recorded ?Confirmed ?Type multivitamin with minerals 1 ea PO DAILY 09/02/19/06/13 History cetirizine 10 mg capsule (Zyrtec) 10 mg PO DAILY 09/3005/16/25 History albuterol sulfate 90 mcg/actuation 1 inh inhalation Q6 H PRN sob 05/10/21 05/16/25 History aerosol inhaler acetaminophen 325 mg capsule 325 mg PO ONCE PRN Pain 0 07/13/21 05/16/25 History (Tylenol) ibuprofen 400 mg tablet 400 mg PO Q8H PRN Pain 08/0905/16/25 History esomeprazole magnesium 40 mg 40 mg PO DAILY 09/22/21 0 05/16/25 History capsule,delayed release (Nexium) cholecalciferol (vitamin D3) 25 25 mcg PO DAILY 05/16/25 History mcg (1,000 unit) capsule mometasone 50 mcg/actuation nasal 2 spray intranasal D AILY PRN 06/22/22 05/16/25 History spray (Nasonex) ALLERGIES clonazepam 0.5 mg tablet 0.5 mg PO PRN PRN Anxiety 05/16/25 History bupropion HCl 300 mg 24 hr tablet, 400 mg PO DAILY 07/1305/16/25 History extended release cyclobenzaprine 5 mg tablet 5 mg PO QHS 06/11/2405/16 History vilazodone 40 mg tablet 40 mg PO QDAY 06/11/2405/16 History esketamine 84 mg (28 mg x 3) nasal See Rx Instructions intranasal 09/10/24 05/16/25 History spray .COMPLEX celecoxib 100 mg capsule (Celebrex) 100 mg PO BID 10/2005/16/25 History propranolol 80 mg capsule,24 100 mg PO QDAY 10/31/24 0 05/16/25 History hr,extended release estradiol 0.075 mg/24 hr 1 patch transdermal 2XW #8 e a 12/16/24 05/16/25 Rx semiweekly transdermal patch (Vivelle-Dot) azathioprine 50 mg tablet 100 mg (2 x 50 mg) PO DAILY #60 02/03/25 05/16/25 Rx TABLETS estradiol 10 mcg vaginal tablet 10 mcg vaginal DAILY 2 weeks #20 05/16/25 05/16/25 Rx (Yuvafem) tabs tirzepatide (weight loss) 2.5 mg subcut Weight loss 05/16/25 History mg/0.5 mL subcutaneous pen injector (Zepbound) Is last menstrual period known: No Post menopausal: Yes Patient : No : No Control Method: [facility] Medical History Laceration of right thumb History of Crohn's disease Difficulty swallowing Depression Anxiety Easy bruising Gastric reflux Low serum IgE Normal Holter exam Postoperative wound seroma Abdominal pain Ventral incisional hernia without obstruction or gangrene Alcohol use History of renal disease Anemia Back pain Migraine headache Injury of head and neck History of hiatal hernia History of IBS Non-smoker CPAP (continuous positive airway pressure) dependence Chronic cough Shortness of breath on exertion Hx of echocardiogram History of stress test Cardiology follow-up encounter History of irregular heartbeat Ventral incisional hernia without obstruction or gangrene Diarrhea Constipation Sleep apnea History of severe acute respiratory syndrome coronavirus 2 (SARS-CoV-2) disease Depression with anxiety neck and back pain Knee pain Surgical History History of esophagogastroduodenoscopy (EGD) History of placement of ear tubes S/P right hemicolectomy Hx of colonoscopy History of ventral hernia repair History of LAVH S/P laparoscopic assisted vaginal hysterectomy (LAVH) Hx of colonoscopy History of colectomy H/O prior ablation treatment History of dilatation and curettage History of eye surgery History of wisdom tooth extraction History of breast biopsy history cysto with stent insertion Hx of tubal ligation History of Family History Grandmother Atrial fibrillation Hypertension Mother Hypertension Mitral valve prolapse Grandfather Cancer Esophageal cancer Social History adopted: No household members: spouse and children housing: house number of children: 2 current occupational status: employed 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 occupational exposures/hazards: Yes pets and animals: Yes leisure activities: exercise and reading Smoking Status: Never smoker alcohol intake: current alcohol intake frequency: a few times a month substance use type: does not use caffeine: Yes Type: other Number of servings: 1 what type of physical activity do you participate in: walking and bicycling frequency: 3-4 times per week seatbelt use: always do you feel safe at home: Yes 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 she is feeling much better. she is struggling with libido. she has started zepbound also for antiobesity. she has improved mood and energy overall no vasomotor symptoms. some fatigue. History 2 Elective abortions Hx Para 2 Spontaneous abortions Hx # Term Pregnancies Ectopic pregnancies Hx # Pregnancies Multiple births # of living children Past Pregnancies Del. Date Name GA/Weeks Outcome Route Bth Weight Infant Gen Labor Lgth Anesthesia Del Locatn Provider FOB Unknown Earle-2002 Unknown Ruy-2006 ROS Const Constitutional: Reports as per HPI Eyes Eyes: Reports system reviewed and no additional complaints, except as documented GI GI: Denies abdominal pain or change in bowel habits : Reports as per HPI Psych Psych: Reports as per HPI Exam Const General: cooperative and no acute distress Orientation: oriented x3 HENMT Head: normal to inspection and normocephalic Eyes General: appearance normal, both eyes and all related structures Neck Neck: normal visual inspection Resp Effort & Inspection: normal respiratory effort Neuro Cognition: normal cognition Speech: speech normal Psych Appearance: grossly normal Mood: congruent mood Affect: normal affect Speech and Movement: speech and movement normal Attitude: cooperative Judgment: judgment good Coding Level of Care Code Off vis,est,level 3 Diagnoses Climacteric N95.1 Assessment and Plan Assessment and Plan (1) Climacteric: Status: Acute Comment: shane quinn Medications: New 2 estradiol (Yuvafem) nightly for two weeks then twice weekly for maintenance 10 mcg vaginal DAILY2 weeks 20 tabs 8RF Plan Problem list updated and treatment plans were reviewed with the patient and relevant educational handouts given. See problem list details for specific planinformation. ad vaginal estrogen switch to tabs 05/16/25 1653 steven JORDAN> Date _ Brianna Garrison MD Cosign Signature: Date (if applicable) CC: ~ [facility]06-27-2025 Progress note Author [facility] Note Date/Time May 16, 2025 4:53 pm [facility] [address] [place] [address], [address] [place] [address] OFFICE VISIT Date of Service: 05/16/25 MR#: [id number] Acct: [id number] Name: BRICE GOMEZ Rep #: [id number] : 1980 Provider: Dr. Deepak Garrison MD Age/Sex: 44/F Location: [facility] Status: Signed Intake Vital Signs 12/16/24 11:12 05/16/25 15:54 Height 5 ft 5 ft Weight: 148 lb 6 oz BMI 29.0 BP 125/88 H Intake Visit Reasons: F/U hormone levels Chief Complaint: 4 Week med check Slasher Sawyer Required: No Is patient in pain?: No Allergies cephalexin monohydrate (From Keflex) Allergy (Verified 05/16/25 15:55) Rash clarithromycin (From Biaxin) Allergy (Verified 05/16/25 15:55) Rash metronidazole (From Flagyl) Allergy (Verified 05/16/25 15:55) Rash minocycline Allergy (Verified 05/16/25 15:55) Rash Penicillins Allergy (Verified 05/16/25 15:55) VISHNU MOSQUEDA'S citalopram hydrobromide (From Celexa) Adverse Reaction (Verified 05/16/25 15:55) Nausea/Vom/Diarrhea Medications ?Medication ?Instructions ?Recorded ?Confirmed ?Type multivitamin with minerals 1 ea PO DAILY 09/02/19/06/13 History cetirizine 10 mg capsule (Zyrtec) 10 mg PO DAILY 09/3005/16/25 History albuterol sulfate 90 mcg/actuation 1 inh inhalation Q6 H PRN sob 05/10/21 05/16/25 History aerosol inhaler acetaminophen 325 mg capsule 325 mg PO ONCE PRN Pain 0 07/13/21 05/16/25 History (Tylenol) ibuprofen 400 mg tablet 400 mg PO Q8H PRN Pain 08/0905/16/25 History esomeprazole magnesium 40 mg 40 mg PO DAILY 09/22/21 0 05/16/25 History capsule,delayed release (Nexium) cholecalciferol (vitamin D3) 25 25 mcg PO DAILY 05/16/25 History mcg (1,000 unit) capsule mometasone 50 mcg/actuation nasal 2 spray intranasal D AILY PRN 06/22/22 05/16/25 History spray (Nasonex) ALLERGIES clonazepam 0.5 mg tablet 0.5 mg PO PRN PRN Anxiety 05/16/25 History bupropion HCl 300 mg 24 hr tablet, 400 mg PO DAILY 07/1305/16/25 History extended release cyclobenzaprine 5 mg tablet 5 mg PO QHS 06/11/2405/16 History vilazodone 40 mg tablet 40 mg PO QDAY 06/11/2405/16 History esketamine 84 mg (28 mg x 3) nasal See Rx Instructions intranasal 09/10/24 05/16/25 History spray .COMPLEX celecoxib 100 mg capsule (Celebrex) 100 mg PO BID 10/2005/16/25 History propranolol 80 mg capsule,24 100 mg PO QDAY 10/31/24 0 05/16/25 History hr,extended release estradiol 0.075 mg/24 hr 1 patch transdermal 2XW #8 e a 12/16/24 05/16/25 Rx semiweekly transdermal patch (Vivelle-Dot) azathioprine 50 mg tablet 100 mg (2 x 50 mg) PO DAILY #60 02/03/25 05/16/25 Rx TABLETS estradiol 10 mcg vaginal tablet 10 mcg vaginal DAILY 2 weeks #20 05/16/25 05/16/25 Rx (Yuvafem) tabs tirzepatide (weight loss) 2.5 mg subcut Weight loss 05/16/25 History mg/0.5 mL subcutaneous pen injector (Zepbound) Is last menstrual period known: No Post menopausal: Yes Patient : No : No Control Method: [facility] Medical History Laceration of right thumb History of Crohn's disease Difficulty swallowing Depression Anxiety Easy bruising Gastric reflux Low serum IgE Normal Holter exam Postoperative wound seroma Abdominal pain Ventral incisional hernia without obstruction or gangrene Alcohol use History of renal disease Anemia Back pain Migraine headache Injury of head and neck History of hiatal hernia History of IBS Non-smoker CPAP (continuous positive airway pressure) dependence Chronic cough Shortness of breath on exertion Hx of echocardiogram History of stress test Cardiology follow-up encounter History of irregular heartbeat Ventral incisional hernia without obstruction or gangrene Diarrhea Constipation Sleep apnea History of severe acute respiratory syndrome coronavirus 2 (SARS-CoV-2) disease Depression with anxiety neck and back pain Knee pain Surgical History History of esophagogastroduodenoscopy (EGD) History of placement of ear tubes S/P right hemicolectomy Hx of colonoscopy History of ventral hernia repair History of LAVH S/P laparoscopic assisted vaginal hysterectomy (LAVH) Hx of colonoscopy History of colectomy H/O prior ablation treatment History of dilatation and curettage History of eye surgery History of wisdom tooth extraction History of breast biopsy history cysto with stent insertion Hx of tubal ligation History of Family History Grandmother Atrial fibrillation Hypertension Mother Hypertension Mitral valve prolapse Grandfather Cancer Esophageal cancer Social History adopted: No household members: spouse and children housing: house number of children: 2 current occupational status: employed 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 occupational exposures/hazards: Yes pets and animals: Yes leisure activities: exercise and reading Smoking Status: Never smoker alcohol intake: current alcohol intake frequency: a few times a month substance use type: does not use caffeine: Yes Type: other Number of servings: 1 what type of physical activity do you participate in: walking and bicycling frequency: 3-4 times per week seatbelt use: always do you feel safe at home: Yes 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 she is feeling much better. she is struggling with libido. she has started zepbound also for antiobesity. she has improved mood and energy overall no vasomotor symptoms. some fatigue. History 2 Elective abortions Hx Para 2 Spontaneous abortions Hx # Term Pregnancies Ectopic pregnancies Hx # Pregnancies Multiple births # of living children Past Pregnancies Del. Date Name GA/Weeks Outcome Route [facility] Weight Infant Gen Labor Lgth Anesthesia Del Locatn Provider FOB Unknown Earle-2002 Unknown Ruy-2006 ROS Const Constitutional: Reports as per HPI Eyes Eyes: Reports system reviewed and no additional complaints, except as documented GI GI: Denies abdominal pain or change in bowel habits : Reports as per HPI Psych Psych: Reports as per HPI Exam Const General: cooperative and no acute distress Orientation: oriented x3 HENMT Head: normal to inspection and normocephalic Eyes General: appearance normal, both eyes and all related structures Neck Neck: normal visual inspection Resp Effort & Inspection: normal respiratory effort Neuro Cognition: normal cognition Speech: speech normal Psych Appearance: grossly normal Mood: congruent mood Affect: normal affect Speech and Movement: speech and movement normal Attitude: cooperative Judgment: judgment good Coding Level of Care Code Off vis,est,level 3 Diagnoses Climacteric N95.1 Assessment and Plan Assessment and Plan (1) Climacteric: Status: Acute Comment: shane quinn Medications: New 2 estradiol (Yuvafem) nightly for two weeks then twice weekly for maintenance 10 mcg vaginal DAILY2 weeks 20 tabs 8RF Plan Problem list updated and treatment plans were reviewed with the patient and relevant educational handouts given. See problem list details for specific planinformation. ad vaginal estrogen switch to tabs 05/16/25 6897 <Electronically signed by Brianna harris MD> Date _ Brianna Garrison MD Cosigner Signature: Date (if applicable) CC: ~ [place] [employer] [facility] Work Phone: [phone] 342-721806-24-2025 Telephone encounter Note* Telephone Encounter - Xochitl Salas LPN - 05/13/2025 3:16 PM EDT Images from the original note were not included. Approved. Prior authorization approved Payer: [employer] [phone] Note from payer: CaseId:[id number];Status:Approved;Review Type:Prior Auth;Coverage Start Date:04/13/2025;Coverage End Date:01/08/2026; Approval Details Authorized from April 13, 2025 to January 08, 2026 Electronic appeal: Not supported Pt notified via my chart. [facility]06-24-2025 Miscellaneous Notes* Telephone Encounter - Xochitl Salas LPN - 05/13/2025 3:16 PM EDT Images from the original note were not included. Approved. Prior authorization approved Payer: [employer] [phone] Note from payer: CaseId:[id number];Status:Approved;Review Type:Prior Auth;Coverage Start Date:04/13/2025;Coverage End Date:01/08/2026; Approval Details Authorized from April 13, 2025 to January 08, 2026 Electronic appeal: Not supported Pt notified via my chart. * Telephone Encounter - Kat Santos RN - 05/13/2025 12:25 PM EDT Patient calls to report that she received a letter in the mail in regards to Zepbound. Insurance requires BMI index, ht/wt, two alternatives for weight loss, two co-morbidites, and that she is using the required KAITLYN that insurance recommended. Notified patient that PA hasn't been submitted this morning. Patient requests this information be passed along incase it is not documented on the PA. Patient reports if questions contact . Kat Santos RN * Telephone Encounter - Xochitl Salas LPN - 05/13/2025 9:11 AM EDT No PA has been rec'd. Did completed one electronically. * Telephone Encounter - Xochitl Salas LPN - 05/13/2025 9:02 AM EDT Electronic PA requested for review with ts insurance bu the last rx was sent to a compounding pharmacy. [facility] Telephone encounter Note * Telephone Encounter - Kat Santos RN - 05/13/2025 12:25 PM EDT Patient calls to report that she received a letter in the mail in regards to Zepbound. Insurance requires BMI index, ht/wt, two alternatives for weight loss, two co-morbidites, and that she is using the required KAITLYN that insurance recommended. Notified patient that PA hasn't been submitted this morning. Patient requests this information be passed along incase it is not documented on the PA. Patient reports if questions contact . Kat Santos RN [facility]06-24-2025 Telephone encounter Note* Telephone Encounter - Xochitl Salas LPN - 05/13/2025 9:11 AM EDT No PA has been rec'd. Did completed one electronically. [facility]06-24-2025 Telephone encounter Note* Telephone Encounter - Xochitl Salas LPN - 05/13/2025 9:02 AM EDT Electronic PA requested for review with ts insurance bu the last rx was sent to a compounding pharmacy. [facility]06-17-2025 Telephone encounter Note* Telephone Encounter - To Longoria, - 05/06/2025 5:13 PM EDT FLORENTINO added To Longoria DO [facility]06-17-2025 Miscellaneous Notes* Telephone Encounter - To Longoria, - 05/06/2025 5:13 PM EDT FLORENTINO added To Longoria DO * Telephone Encounter - Adeline Conrad LPN - 05/06/2025 9:14 AM EDT Pt calls to report she noticed on her problem list that sleep apnea is not listed. Pt reports she had PSG done in . Pt is requesting this to be added to problem list. Adeline Conrad LPN documented in this encounterSt. [facility]06-[facility]-2025 Telephone encounter Note * Telephone Encounter - Adeline Conrad LPN - 05/06/2025 9:14 AM EDT Pt calls to report she noticed on her problem list that sleep apnea is not listed. Pt reports she had PSG done in . Pt is requesting this to be added to problem list. Adeline Conrad LPN [facility]06-10-2025 Telephone encounter Note* Telephone Encounter - Lisa Ruvalcaba LPN - 04/29/2025 9:48 AM EDT Patient calling said to disregard the paper. She said [employer] was reaching out to the office about a PA. [facility]06-10-2025 Miscellaneous Notes* Telephone Encounter - Lisa Ruvalcaba LPN - 04/29/2025 9:48 AM EDT Patient calling said to disregard the paper. She said [employer] was reaching out to the office about a PA. * Telephone Encounter - Lisa Ruvalcaba LPN - 04/28/2025 4:20 PM EDT Patient calling asking about the Prior authorization form she dropped off , if it was completed for the [facility]. * Telephone Encounter - Jessica Mcdowell LPN - 04/25/2025 5:08 PM EDT Not sure where form was placed. Will need to look through Dr.. Richard office Monday. * Telephone Encounter - Jamia Ahmadi - 04/24/2025 2:34 PM EDT Patient presented to front office assistant with a form for [employer] that needs completed and faxed to the number attached. Patient is asking that the form be scanned into her chart as the form may need to be resubmitted in the future. 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 Form placed on nurses desk. Please assist. documented in this encounterSt. [facility]06-[facility]-2025 Telephone encounter Note * Telephone Encounter - Lisa Ruvalcaba LPN - 04/28/2025 4:20 PM EDT Patient calling asking about the Prior authorization form she dropped off , if it was completed for the Zep[employer]. [facility]06-06-[facility] Telephone encounter Note* Telephone Encounter - Jessica Mcdowell LPN - 04/25/2025 5:08 PM EDT Not sure where form was placed. Will need to look through Dr.. Richard office Monday. [facility]06-05-2025 Telephone encounter Note* Telephone Encounter - Jamia Ahmadi - 04/24/2025 2:34 PM EDT Patient presented to front office assistant with a form for [employer] that needs completed and faxed to the number attached. Patient is asking that the form be scanned into her chart as the form may need to be resubmitted in the future. 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 Form placed on nurses desk. Please assist. [facility]06-02-2025 Telephone encounter Note* Telephone Encounter - Kat Santos RN - 04/21/2025 12:01 PM EDT The patient has been identified by name and date of : Yes Caregiver verified no other encounters exist for this prescription request: Yes Caregiver confirmed with patient/requestor that no other refills are due, in the near future, with this provider at this time: Yes The last office visit in the department: 03/25/2025 Does the patient have a future office visit with this provider/department: 07/18/2025 Requested Prescriptions Pending Prescriptions Disp Refills tirzepatide, weight loss (ZEPBOUND) 2.5 mg/0.5 mL solution 3 mL 2 Sig: Inject 0.5 mL subcutaneously one time a week. BMI 30 Patient reports the FDA has halted the Compounding Pharmacies from dispensing tirzepatide. Patient reports that she can work with her insurance by doing a Wellness Program. She might need a letter from provider at some point but to start the process she has to have a prescription sent to the pharmacy. Kat Santos RN April 21, 2025 12:[address] [facility]06-02-2025 Miscellaneous Notes* Telephone Encounter - Kat Santos RN - 04/21/2025 12:01 PM EDT The patient has been identified by name and date of : Yes Caregiver verified no other encounters exist for this prescription request: Yes Caregiver confirmed with patient/requestor that no other refills are due, in the near future, with this provider at this time: Yes The last office visit in the department: 03/25/2025 Does the patient have a future office visit with this provider/department: 07/18/2025 Requested Prescriptions Pending Prescriptions Disp Refills tirzepatide, weight loss (ZEPBOUND) 2.5 mg/0.5 mL solution 3 mL 2 Sig: Inject 0.5 mL subcutaneously one time a week. BMI 30 Patient reports the FDA has halted the Compounding Pharmacies from dispensing tirzepatide. Patient reports that she can work with her insurance by doing a Wellness Program. She might need a letter from provider at some point but to start the process she has to have a prescription sent to the pharmacy. Kat Santos RN April 21, 2025 12:01 PM documented in this encounterSt. [facility]06-[facility]-2025 Telephone encounter Note * Telephone Encounter - Tere Tellez MA - 04/21/2025 10:26 AM EDT Pt notified of results via [employer]. Tere Tellez Ma [facility]06-02-2025 Miscellaneous Notes* Telephone Encounter - Tere Tellez MA - 04/21/2025 10:26 AM EDT Pt notified of results via [employer]. Tere Tellez Ma * Telephone Encounter - Jessica Mcdowell LPN - 04/17/2025 9:04 AM EDT Left message to return call. * Telephone Encounter - To Longoria DO - 04/16/2025 8:49 PM EDT Please let her know that her insulin levels were normal. Needs to discuss her progesterone/hormone levels with [facility] To Longoria DO * Telephone Encounter - Soumya Ureña MA - 04/16/2025 12:08 PM EDT Please review labs in scanned docs. View External Labs - Miscellaneous Lab [ID [id number]] View External Labs - Miscellaneous Lab [ID [id number]] * Telephone Encounter - To Longoria DO - 04/16/2025 12:00 PM EDT Please obtain lab results for me to review I don't have these on my desk To Longoria DO * Telephone Encounter - Bree Oliver LPN - 03/26/2025 2:11 PM EDT Lab results received and placed on Dr. Longoria's desk documented in this encounterSt. [facility]05-29-2025 Telephone encounter Note * Telephone Encounter - Jessica Mcdowell LPN - 04/17/2025 9:04 AM EDT Left message to return call. [facility]05-28-2025 Telephone encounter Note* Telephone Encounter - To Longoria DO - 04/16/2025 8:49 PM EDT Please let her know that her insulin levels were normal. Needs to discuss her progesterone/hormone levels with [facility] To Longoria DO [facility]05-28-2025 Telephone encounter Note* Telephone Encounter - Soumya Ureña MA - 04/16/2025 12:08 PM EDT Please review labs in scanned docs. View External Labs - Miscellaneous Lab [ID [id number]] View External Labs - Miscellaneous Lab [ID [id number]] [facility]05-28-[facility] Telephone encounter Note* Telephone Encounter - To Longoria DO - 04/16/2025 12:00 PM EDT Please obtain lab results for me to review I don't have these on my desk To Longoria DO [facility]05-07-2025 Telephone encounter Note* Telephone Encounter - Bree Oliver LPN - 03/26/2025 2:11 PM EDT Lab results received and placed on Dr. Longoria's desk [facility]05-06-2025 NoteHNO ID: [id number] Author: LONGORIA, TO, DO Service: ? Author Type: Physician Type: Progress Notes Filed: 03/27/2025 10:39 Note Text: CC: Brice Gomez is a 44 year old female who presents to the office for follow up HPI: Menopausal disorder, she is seeing [facility] and recently was started on estrogen, she is going to see the physician and discuss potential of starting progesterone and testosterone as well for all her symptoms Mood, seeing Psychiatry [facility] at [place] [address] and counselor through same organization. Feels like her mood is improving and she is at this time still on the ketamine but weaning down to monthly treatments Obesity, weight at 153 lbs. BMI 30.04, knows need for weight loss. Wondering about starting GLP1 agonist. Is overall eating a healthy diet and staying physically active with walking and yoga HTN, struggling with fatigue symptoms with propranolol, wondering if she can try an alternative medication PAST MEDICAL HISTORY Diagnosis Date Abnormal uterine [...] airway disease Severe pre-eclampsia, condition or complication Driver general hospitalization Stone, kidney x2 Vitamin D [...] DANDC and ablation Dr. Silveira S HERNIA PATCH,VENTRALEX,[id number] abdomen STEROTACTIC GUIDE BREAST BX 10/01/2012 u/s guidance of left breast VAGINAL HYSTERECTOMY right Ovary remains Current Outpatient Medications Medication Sig estrogen - VERIFY PATCH 0.075 each. 2 weekly Nathaly metoprolol succinate ER (TOPROL XL) 25 mg 24 hr tablet Take 1 tablet by mouth once daily. tirzepatide, weight loss (ZEPBOUND) 2.5 mg/0.5 mL solution Inject 0.5 mL subcutaneously one time a week. BMI 30 vilazodone (VIIBRYD) 40 mg tablet Take 1 tablet by mouth once daily. celecoxib (CELEBREX) 100 mg capsule Take 100 mg by mouth two times a day. esomeprazole (NEXIUM) 40 mg capsule Take 1 capsule by mouth two times a day before meals. 1/2 hr before meal. buPROPion XL (WELLBUTRIN XL) 300 mg 24 hr tablet Take 1 tablet by mouth once daily. cyclobenzaprine (FLEXERIL) 10 mg tablet Take 1 tablet by mouth three times a day as needed for muscle spasm. clonazePAM (KLONOPIN) 0.5 mg tablet Take 1 tablet by mouth at bedtime as needed for up to 30 days. albuterol HFA (PROAIR HFA) 90 mcg/actuation inhaler Inhale 2 Puffs as instructed every 4 hours as needed. scopolamine (TRANSDERM-SCOP) patch 1.5 mg/72 hr (delivers 1 mg over 3 days) Apply 1 Patch as directed every 72 hours. Apply patch to skin behind ear 4hrs prior to travel. azaTHIOprine (IMURAN) 100 mg tablet Take 100 mg by mouth once daily. Cholecalciferol, Vitamin D3, 25 mcg (1,000 unit) cap Take 25 mcg by mouth once daily. mometasone (NASONEX) 50 mcg/actuation nasal spray Use 2 Sprays in the nose twice daily. EPINEPHrine (EPIPEN) 0.3 mg/0.3 mL auto-injector Inject 0.3 mL subcutaneously as needed. Then seek medical attention immediately. MULTI-VITAMIN ORAL Take by mouth. cetirizine (ZYRTEC) 10 mg tablet Take 10 [...] [Cephalexin] Rash Minocycline Hives Penicillins Rash, Itching Vishnu Darrick type reaction. Social History Tobacco Use Smoking status: Never Smokeless tobacco: Never Tobacco comme (more content not included)...[facility]05-06-2025 History of Present illness Narrative* To Longoria, DO - 03/25/2025 3:56 PM EDT CC: Brice Gomez is a 44 year old female who presents to the office for follow up HPI: Menopausal disorder, she is seeing [facility] and recently was started on estrogen, she is going to see the physician and discuss potential of starting progesterone and testosterone as well for all her symptoms Mood, seeing Psychiatry [facility] at [place] [address] and counselor through same organization. Feels like her mood is improving and she is at this time still on the ketamine but weaning down to monthly treatments Obesity, weight at 153 lbs. BMI 30.04, knows need for weight loss. Wondering about starting GLP1 agonist. Is overall eating a healthy diet and staying physically active with walking and yoga HTN, struggling with fatigue symptoms with propranolol, wondering if she can try an alternative medication PAST MEDICAL HISTORY Diagnosis Date Abnormal uterine [...] airway disease Severe pre-eclampsia, condition or complication Driver general hospitalization Stone, kidney x2 Vitamin D [...] D&C and ablation Dr. Silveira S HERNIA PATCH,VENTRALEX,[id number] abdomen STEROTACTIC GUIDE BREAST BX 10/01/2012 u/s guidance of left breast VAGINAL HYSTERECTOMY right Ovary remains Current Outpatient Medications Medication Sig estrogen - VERIFY PATCH 0.075 each. 2 weekly Nathaly metoprolol succinate ER (TOPROL XL) 25 mg 24 hr tablet Take 1 tablet by mouth once daily. tirzepatide, weight loss (ZEPBOUND) 2.5 mg/0.5 mL solution Inject 0.5 mL subcutaneously one time a week. BMI 30 vilazodone (VIIBRYD) 40 mg tablet Take 1 tablet by mouth once daily. celecoxib (CELEBREX) 100 mg capsule Take 100 mg by mouth two times a day. esomeprazole (NEXIUM) 40 mg capsule Take 1 capsule by mouth two times a day before meals. 1/2 hr before meal. buPROPion XL (WELLBUTRIN XL) 300 mg 24 hr tablet Take 1 tablet by mouth once daily. cyclobenzaprine (FLEXERIL) 10 mg tablet Take 1 tablet by mouth three times a day as needed for muscle spasm. clonazePAM (KLONOPIN) 0.5 mg tablet Take 1 tablet by mouth at bedtime as needed for up to 30 days. albuterol HFA (PROAIR HFA) 90 mcg/actuation inhaler Inhale 2 Puffs as instructed every 4 hours as needed. scopolamine (TRANSDERM-SCOP) patch 1.5 mg/72 hr (delivers 1 mg over 3 days) Apply 1 Patch as directed every 72 hours. Apply patch to skin behind ear 4hrs prior to travel. azaTHIOprine (IMURAN) 100 mg tablet Take 100 mg by mouth once daily. Cholecalciferol, Vitamin D3, 25 mcg (1,000 unit) cap Take 25 mcg by mouth once daily. mometasone (NASONEX) 50 mcg/actuation nasal spray Use 2 Sprays in the nose twice daily. EPINEPHrine (EPIPEN) 0.3 mg/0.3 mL auto-injector Inject 0.3 mL subcutaneously as needed. Then seek medical attention immediately. MULTI-VITAMIN ORAL Take by mouth. cetirizine (ZYRTEC) 10 mg tablet Take 10 [...] [Cephalexin] Rash Minocycline Hives Penicillins Rash, Itching Vishnu Darrick type reaction. Social History Tobacco Use Smoking status: Never Smokeless tobacco: Never Tobacco comments: Step father smoked in childhood. Spouse ex-smoker last 13 years. Vaping Use Vaping status: Never Used Substance Use Topics Alcohol use: Yes Comment: Rarely Drug use: No ROS: See HPI PE: BP 130/80 Pulse 80 Temp (Src) 98.4 (Right Tympanic) Resp 12 Wt 153 lb (69.4kg) LMP 08/24/2020 Gen: A&OX3, NAD, non-toxic appearing HEENT: PERRLA, EOMs intact b/l, nares without drainage, pharynx without erythema, exudate, lesions,or drainage. Uvula midline. Neck: No LAD, no thyromegaly, no meningismus. CV: RRR, no murmur Lungs: CTA b/l, no wheezing Skin: No rashes, lesions, or wounds on exposed skin. Central obesity No edema legs, normal peripheral pulses ASSESSMENT/PLAN: 1. Elevated blood pressure reading without diagnosis of hypertension - ICD9: 796.2, ICD10: R03.0 (primary diagnosis) - Encouraged dietary sodium restriction/DASH diet - Recommended regular aerobic exercise. - Recommend home blood pressure monitoring, to bring results in on next visit - Encouraged avoidance of excessive alcohol intake - Discussed need and benefit for weight loss. - d/c propranolol, start on metoprolol and titrate as needed - Reviewed risks of HTN and principles of treatment - Goal of BP <130/80 - METOPROLOL SUCCINATE ER 25 MG TABLET,EXTENDED RELEASE 24 HR - COMPREHENSIVE METABOLIC PANEL 2. Menopausal disorder - ICD9: 627.9, ICD10: N95.9 F/u with [facility], she is asking for labs to get drawn before reviewing with specialist. - PROGESTERONE - ESTRADIOL-17B BLD - TESTOSTERONE, TOTAL BY IMMUNOASSAY (ADULT MALES, OR INDIVIDUALS ON TESTOSTERONE THERAPY) - FOLLICLE STIMULATING HORMONE 3. Decreased libido - ICD9: 799.81, ICD10: R68.82 F/u with [facility], she is asking for labs to get drawn before reviewing with specialist. 4. Encounter for screening mammogram for malignant neoplasm of breast - ICD9: V76.12, ICD10: Z12.31 - JULIENNE SCREENING W ANDREAS 5. Class 1 obesity with body mass index (BMI) of 30.0 to 30.9 in adult, unspecified obesity type, unspecified whether serious comorbidity present - ICD9: 278.00, V85.30, ICD10: E66.811, Z68.30 Weight increasing - Pharmacological intervention, - PSMF, and - Eat well program - TIRZEPATIDE (WEIGHT LOSS) 2.5 MG/0.5 ML SUBCUTANEOUS SOLUTION - HEMOGLOBIN A1C - INSULIN, TOTAL, SERUM - COMPREHENSIVE METABOLIC PANEL 6. Chronic bilateral low back pain with bilateral sciatica - ICD9: 724.2, 724.3, 338.29, ICD10: M54.42, M54.41, G89.29 Chronic low back pain - Ice for localized tenderness - Warm moist heat for 20 min three times a day stable 7. Palpitations - ICD9: 785.1, ICD10: R00.2 See above, d/c propranolol, start on metoprolol To Longoria DO Return if no improvement. Follow up with To Longoria DO. To ER if develops chest pain, shortness of breath. Discussed risks, benefits, alternatives, and potential side effects of medications. Patient/Guardian expressed understanding and agreed with the plan. See patient instructions. To Longoria DO [address] [place] [address] documented in this encounterSt[facility]04[facility] Radiology Diagnostic study note [facility] [address] [place] [address] Cerv Spine Obl/Flex/Ext Comp MR#: [id number] Acct: [id number] Name: BRICE GOMEZ Rep #: [id number] 3 : 1980 F 44 From: Thierry Baca MD PCP: Dr. To Longoria DO Status: RE G CLI Study:Cerv Spine Obl/Flex/Ext Comp Date of Ex am: 03/03/25 Exam# [id number] Ordering Dr: Lisa Werner PROCEDURE: CERV SPINE OBL/FLEX/EXT COMP 03/03/2025 REASON FOR EXAM: CERVICAL SPINE PAIN TECHNIQUE: 7 views of the cervical spine. AP, lateral, bilateral obliques, flexion and extension and open mouth odontoid COMPARISON: None available FINDINGS: Cervical spine is visualized on the lateral view from the skull base to the top of T1. No fracture or malalignment. No prevertebral soft tissue swelling. Disc spaces appear within limits. No evidence of instability. Nosignificant osseous foraminal narrowing identified. Visualized apices appear clear. RAD/Cerv Spine Obl/Flex/Ext Comp IMPRESSION: Study appears within limits. Reading Location: [facility] CC: Lisa Werner; Dr. To Longoria DO ~ Knee Bolter: Signed [facility]04-03-2025 Evaluation note* Diagnosis Onset Date Resolution Status Admit Date GERD (gastroesophageal reflu x disease) acute February 20, 2025 1:57pm Diarrhea chronic February 20 1:57pm Crohn's disease suspected February 1:57pm Personal history of colonic polyps resolved February 20, 2025 1:57pm S/P right hemicolectomy inactive A pril 2024 1:57pm [facility] Work Phone: 1(226) 171-529604-03-2025 Evaluation note* Diagnosis Onset Date Resolution Status Admit Date GERD (gastroesophageal reflu x disease) acute February 20, 2025 1:57pm Diarrhea chronic February 20 1:57pm Crohn's disease suspected February 1:57pm Personal history of colonic polyps resolved February 20, 2025 1:57pm S/P right hemicolectomy inactive A pril 2024 1:57pm Climacteric acute May 16 3:34pm [place] [employer] Work Phone: [phone]) [phone] Telephone encounter Note* Telephone Encounter - Lanie Cool RN - 02/04/2025 9:12 AM EDT Requested Prescriptions Pending Prescriptions Disp Refills vilazodone (VIIBRYD) 40 mg tablet 90 tablet Sig: Take 1 tablet by mouth once daily. [facility] calling to request a refill of this medication. Please call patient for any questions or concerns regarding this refill request. Lanie Cool RN [facility]03-18-2025 Miscellaneous Notes* Telephone Encounter - Lanie Cool RN - 02/04/2025 9:12 AM EDT Requested Prescriptions Pending Prescriptions Disp Refills vilazodone (VIIBRYD) 40 mg tablet 90 tablet Sig: Take 1 tablet by mouth once daily. [facility] calling to request a refill of this medication. Please call patient for any questions or concerns regarding this refill request. Lanie Cool RN documented in this encounterSt. [facility] Evaluation note* Diagnosis Onset Date Resolution Status Admit Date GERD (gastroesophageal reflu x disease) acute December 12 12:56pm Diarrhea chronic December 12, 2024 12:56pm Crohn's disease suspected November 212024 12:56pm Personal history of colonic polyps resolved December 12 12:56pm S/P right hemicolectomy inactive J anuary 2024 12:56pm Climacteric acute December 16, 2024 10:59am Laceration of right thumb acute January 08, 2025 4:14pm GERD (gastroesophageal reflu x disease) acute February 20, 2025 1:57pm Diarrhea chronic February 20 1:57pm Crohn's disease suspected February 1:57pm Personal history of colonic polyps resolved February 20, 2025 1:57pm S/P right hemicolectomy inactive A pril 2024 1:57pm [facility] Work Phone: 1(114) 589-872701-15-2025 NoteHNO ID: [id number] Author: ?, ?, ? Service: ? Author Type: ? Type: Progress Notes Filed: 12/04/2024 10:34 Note Text: POPULATION HEALTH NAVIGATION OUTREACH Action/[facility] Support: Called pt to schedule an appt in Pain Management. Lvm for pt to call [phone] for scheduling. Reason for Outreach Care Gap/HCC or Scheduling Wellness Visits Care Gaps due: N/A Patient Contacted: Unable or unnecessary to reach patient: Left message Navigation Signature: Luly Agrawal December 04, 2024 10:34 [facility]01-15-2025 History of Present illness Narrative* Luly Agrawal - 12/04/2024 10:33 AM EST POPULATION HEALTH NAVIGATION OUTREACH Action/[facility] Support: Called pt to schedule an appt in Pain Management. Lvm for pt to call [phone] for scheduling. Reason for Outreach Care Gap/HCC or Scheduling Wellness Visits Care Gaps due: N/A Patient Contacted: Unable or unnecessary to reach patient: Left message Navigation Signature: Luly Agrawal December 04, 2024 10:34 AM documented in this encounterSt. [facility] Hospital01-15-2025 NotePatient Outreach (NETNAV) BRICE GOMEZ ([id number]) 1980 F Date Time Provider Department 12/04/24 NO ONE (HISTORICAL) NETNAV During your visit today, we recorded the following information about you: Luly Agrawal 12/04/2024 10:34 AM Signed POPULATION HEALTH NAVIGATION OUTREACH Action/[facility] Support: Called pt to schedule an appt in Pain Management. [facility] for pt to call [phone] for scheduling. Reason for Outreach Care Gap/HCC or Scheduling Wellness Visits Care Gaps due: N/A Patient Contacted: Unable or unnecessary to reach patient: Left message Navigation Signature: Luly Agrawal December 04, 2024 10:34 AM Allergies As of Date: 12/04/2024 Noted Allergy Reaction CLINDAMYCIN 09/27/2016 16 - Unknown BEE STING 05/02/2011 4 - Hives Comments: Facial edema BIAXIN (CLARITHROMYCIN) 01/08/2014 2 - Rash Comments: Patient developed a pruritic rash 7 days into course of biaxin and flagyl for H pylori infection. No mucous membrane involvement, exfoliation, fevers or joint pain/swelling. CELEXA (CITALOPRAM) 02/14/2006 8 - GI Upset ENTEX (PHENYLEPHRINE-GUAIFENESIN) 02/14/2006 5 - Intolerance Comments: Tachycardia FLAGYL (METRONIDAZOLE HCL) 01/08/2014 2 - Rash Comments: Patient developed a pruritic rash 7 days into course of biaxin and flagyl for H pylori infection. No mucous membrane involvement, exfoliation, fevers or joint pain/swelling. KEFLEX (CEPHALEXIN) 05/11/2009 2 - Rash MINOCYCLINE 02/14/2006 4 - Hives PENICILLINS 03/14/2006 2 - Rash 9 - Itching Comments: Vishnu Darrick type reaction. Date Reviewed: 09/20/2024 Reviewed by: Bree Oliver LPN - Fully Assessed Prescriptions as of 12/04/2024 - celecoxib (CELEBREX) 100 mg capsule Take 100 mg by mouth two times a day. - propranolol ER (INDERAL LA) 60 mg 24 hr capsule Take 1 capsule by mouth once daily. For BLOOD PRESSURE and headaches - esomeprazole (NEXIUM) 40 mg capsule Take 1 capsule by mouth two times a day before meals. 1/2 hr before meal. - vilazodone (VIIBRYD) 40 mg tablet Take 1 tablet by mouth once daily. - buPROPion XL (WELLBUTRIN XL) 300 mg 24 hr tablet Take 1 tablet by mouth once daily. - cyclobenzaprine (FLEXERIL) 10 mg tablet Take 1 tablet by mouth three times a day as needed for muscle spasm. - clonazePAM (KLONOPIN) 0.5 mg tablet Take 1 tablet by mouth at bedtime as needed for up to 30 days. - albuterol HFA (PROAIR HFA) 90 mcg/actuation inhaler Inhale 2 Puffs as instructed every 4 hours as needed. - scopolamine (TRANSDERM-SCOP) patch 1.5 mg/72 hr (delivers 1 mg over 3 days) Apply 1 Patch as directed every 72 hours. Apply patch to skin behind ear 4hrs prior to travel. - azaTHIOprine (IMURAN) 100 mg tablet Take 100 mg by mouth once daily. - Cholecalciferol, Vitamin D3, 25 mcg (1,000 unit) cap Take 25 mcg by mouth once daily. - mometasone (NASONEX) 50 mcg/actuation nasal spray Use 2 Sprays in the nose twice daily. - Fluticasone Furoate (FLONASE SENSIMIST) 27.5 mcg/actuation nasal spray Use 2 Sprays in each nostril once daily. - EPINEPHrine (EPIPEN) 0.3 mg/0.3 mL auto-injector Inject 0.3 mL subcutaneously as needed. Then seek medical attention immediately. - MULTI-VITAMIN ORAL Take by mouth. - cetirizine (ZYRTEC) 10 mg tablet Take 10 mg by mouth once daily. Meds Comments as of 01/24/2018: Prilosec 20 mg q day in AM most days Problem List As Of Date 12/04/2024 Noted Resolved Fibrosclerosis of breast [N60.39] 07/28/2015 Allergic rhinitis [J30.9] SUPERVIS OTHER NORMAL PREG [Z34.80] 08/24/2006 07/25/2008 Inflammatory disease of breast [N61.0] 07/10/2007 09/14/2012 Benign neoplasm of skin of trunk, except scrotu*02/19/2008 12/06/2013 Benign neoplasm of scalp and skin of neck [D23.*02/19/2008 12/06/2013 Benign neoplasm of skin of other and unspecifie*02/19/2008 12/06/2013 Benign neoplasm of skin of upper limb, includin*02/19/2008 12/06/2013 Scar condition and fibrosis of skin [L90.5] 02/19/2008 12/06/2013 Unspecified hypertrophic and atrophic condition*02/19/2008 12/06/2013 FOLLICULITIS///HAIR DISEASES NEC [L67.8, L73.8] 09/10/2008 12/06/2013 Pyoderma, unspecified [L08.0] 03/19/2009 12/06/2013 Neoplasm of uncertain behavior of skin [D48.5] 09/29/2009 07/28/2015 Other acne [L70.8] 09/29/2009 07/28/2015 Hidradenitis suppurativa [L73.2] 09/29/2009 07/28/2015 Keloid scar [L91.0] 09/29/2009 07/28/2015 Hypertrophic scar [L91.0] 09/29/2009 07/28/2015 Depression [F32.A] 11/06/2009 Kidney stones [N20.0] 11/06/2009 Atypical nevus of lower leg [D22.70] 04/11/2012 07/28/2015 Atypical nevus of thigh [D22.70] 04/11/2012 07/28/2015 Melanocytic nevi of lower extremity or hip [D22*04/11/2012 07/28/2015 Melanocytic nevi of face [D22.30] 04/11/2012 07/28/2015 Melanocytic nevi of upper extremity or shoulder*04/11/2012 07/28/2015 Other psoriasis [L40.8] 04/11/2012 Callus (more content not included)...[facility]11-18-2024 Telephone encounter Note* Telephone Encounter - Juliet Marte LPN - 10/07/2024 3:05 PM EST Spoke with pt and information listed below given. Pt verbalizes understanding. Juliet Marte LPN [facility] Miscellaneous Notes* Telephone Encounter - Juliet Marte LPN - 10/07/2024 3:05 PM EST Spoke with pt and information listed below given. Pt verbalizes understanding. Juliet Marte LPN * Telephone Encounter - Coni Cid RN - 10/07/2024 2:50 PM EST Called and left a voicemail for the Patient to call back and ask for a nurse to receive the providers message. Coni Cid RN * Telephone Encounter - To Longoria DO - 10/07/2024 1:37 PM EST Please inform patient that her renal artery US and carotid artery US and her PVI/KAREN of her legs are all normal appearing To Longoria DO * Telephone Encounter - Obdulia Moran MA - 10/02/2024 10:03 AM EST Carotid, KAREN, Renal ultrasound ordered by PCP received from [facility] and scanned into EPIC. Please review and advise. View External Cardiology - Miscellaneous Cardiac [ID [id number]] View External Cardiology - Miscellaneous Cardiac [ID [id number]] View External Imaging - Ultrasound [ID [id number]] Obdulia Moran MA documented in this encounterSt. [facility]11-18-2024 Telephone encounter Note * Telephone Encounter - Coni Cid RN - 10/07/2024 2:50 PM EST Called and left a voicemail for the Patient to call back and ask for a nurse to receive the providers message. Coni Cid RN [facility] Telephone encounter Note* Telephone Encounter - To Longoria DO - 10/07/2024 1:37 PM EST Please inform patient that her renal artery US and carotid artery US and her PVI/KAREN of her legs are all normal appearing To Longoria DO [facility] Telephone encounter Note* Telephone Encounter - Obdulia Moran MA - 10/02/2024 10:03 AM EST Carotid, KAREN, Renal ultrasound ordered by PCP received from [facility] and scanned into [email or web address]. Please review and advise. View External Cardiology - Miscellaneous Cardiac [ID [id number]] View External Cardiology - Miscellaneous Cardiac [ID [id number]] View External Imaging - Ultrasound [ID [id number]] Obdulia Moran MA [facility] Telephone encounter Note* Telephone Encounter - Valorie Williamson RN - 09/26/2024 2:57 PM EST Left VM for pt to review her MyChart msg regarding her results and to call if questions. [facility] Miscellaneous Notes* Telephone Encounter - Valorie Williamson RN - 09/26/2024 2:57 PM EST Left VM for pt to review her MyChart msg regarding her results and to call if questions. * Telephone Encounter - Tere Tellez MA - 09/26/2024 11:42 AM EST Notified of below via [employer]. Tere Tellez MA * Telephone Encounter - To Longoria DO - 09/25/2024 9:24 PM EST Please make sure patient knows to review her estradiol and progesterone labs with her [facility] for treatment To Longoria DO * Telephone Encounter - Tere Tellez MA - 09/24/2024 11:24 AM EST Pt had blood work done at [facility]. See attached. View External Labs - Miscellaneous Lab [ID [id number]] View External Labs - Miscellaneous Lab [ID [id number]] Tere Tellez MA documented in this encounterSt. [facility]11-07-2024 Telephone encounter Note * Telephone Encounter - Tere Tellez MA - 09/26/2024 11:42 AM EST Notified of below via [employer]. Tere Tellez MA [facility] Telephone encounter Note* Telephone Encounter - To Longoria DO - 09/25/2024 9:24 PM EST Please make sure patient knows to review her estradiol and progesterone labs with her [facility] for treatment To Longoria DO [facility] Telephone encounter Note* Telephone Encounter - Tere Tellez MA - 09/24/2024 11:24 AM EST Pt had blood work done at [facility]. See attached. View External Labs - Miscellaneous Lab [ID [id number]] View External Labs - Miscellaneous Lab [ID [id number]] Tere Tellez MA [facility]24 NoteHNO ID: [id number] Author: LONGORIA TO, DO Service: ? Author Type: Physician Type: Progress Notes Filed: 09/20/2024 17:41 Note Text: CC: Brice Gomez is a 43 year old female who presents to the office for follow up HPI: Blood pressure concerns, over the last few months she has noticed that her BLOOD PRESSURE has been increasing consistently. Denies any obvious symptoms of chest pressure or pain or dyspnea or dizziness/LH or syncope or edema. Has noticed consistency of headache though and long standing hx of migraine headaches. 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 She is also newly post menopausal since she had a hysterectomy and she is not on hormone replacement therapy, which she feels she likely needs. She is struggling with a lack of libido and mood irritability. She sees [facility] specialist at [facility] and is going to talk to specialist about these concerns. PAST MEDICAL HISTORY Diagnosis Date Abnormal uterine [...] airway disease Severe pre-eclampsia, condition or complication Driver general hospitalization Stone, kidney x2 Vitamin D [...] DANDC and ablation Dr. Silveira S HERNIA PATCH,VENTRALEX,[id number] abdomen STEROTACTIC GUIDE BREAST BX 10/01/2012 u/s guidance of left breast VAGINAL HYSTERECTOMY right Ovary remains Current Outpatient Medications Medication Sig celecoxib (CELEBREX) 100 mg capsule Take 100 mg by mouth two times a day. esomeprazole (NEXIUM) 40 mg capsule Take 1 capsule by mouth two times a day before meals. 1/2 hr before meal. vilazodone (VIIBRYD) 40 mg tablet Take 1 tablet by mouth once daily. buPROPion XL (WELLBUTRIN XL) 300 mg 24 hr tablet Take 1 tablet by mouth once daily. cyclobenzaprine (FLEXERIL) 10 mg tablet Take 1 tablet by mouth three times a day as needed for muscle spasm. clonazePAM (KLONOPIN) 0.5 mg tablet Take 1 tablet by mouth at bedtime as needed for up to 30 days. albuterol HFA (PROAIR HFA) 90 mcg/actuation inhaler Inhale 2 Puffs as instructed every 4 hours as needed. scopolamine (TRANSDERM-SCOP) patch 1.5 mg/72 hr (delivers 1 mg over 3 days) Apply 1 Patch as directed every 72 hours. Apply patch to skin behind ear 4hrs prior to travel. azaTHIOprine (IMURAN) 100 mg tablet Take 100 mg by mouth once daily. Cholecalciferol, Vitamin D3, 25 mcg (1,000 unit) [...] attention immediately. MULTI-VITAMIN ORAL Take by mouth. cetirizine (ZYRTEC) 10 mg tablet Take 10 [...] [Cephalexin] Rash Minocycline Hives Penicillins Rash, Itching Vishnu Darrick type reaction. Social History Tobacco Use Smoking status: Never Smokeless tobacco: Never Tobacco comments: Step father smoked in childhood. Spouse ex-smoker last 13 years. Vaping Use V (more content not included)...[facility]11-01-2024 History of Present illness Narrative* To Longoria, DO - 09/20/2024 9:01 AM EDT CC: Brice Gomez is a 43 year old female who presents to the office for follow up HPI: Blood pressure concerns, over the last few months she has noticed that her BLOOD PRESSURE has been increasing consistently. Denies any obvious symptoms of chest pressure or pain or dyspnea or dizziness/LH or syncope or edema. Has noticed consistency of headache though and long standing hx of migraine headaches. 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 She is also newly post menopausal since she had a hysterectomy and she is not on hormone replacement therapy, which she feels she likely needs. She is struggling with a lack of libido and mood irritability. She sees [facility] specialist at [facility] and is going to talk to specialist about these concerns. PAST MEDICAL HISTORY Diagnosis Date Abnormal uterine [...] airway disease Severe pre-eclampsia, condition or complication Driver general hospitalization Stone, kidney x2 Vitamin D [...] D&C and ablation Dr. Silveira S HERNIA PATCH,VENTRALEX,[id number] abdomen STEROTACTIC GUIDE BREAST BX 10/01/2012 u/s guidance of left breast VAGINAL HYSTERECTOMY right Ovary remains Current Outpatient Medications Medication Sig celecoxib (CELEBREX) 100 mg capsule Take 100 mg by mouth two times a day. esomeprazole (NEXIUM) 40 mg capsule Take 1 capsule by mouth two times a day before meals. 1/2 hr before meal. vilazodone (VIIBRYD) 40 mg tablet Take 1 tablet by mouth once daily. buPROPion XL (WELLBUTRIN XL) 300 mg 24 hr tablet Take 1 tablet by mouth once daily. cyclobenzaprine (FLEXERIL) 10 mg tablet Take 1 tablet by mouth three times a day as needed for muscle spasm. clonazePAM (KLONOPIN) 0.5 mg tablet Take 1 tablet by mouth at bedtime as needed for up to 30 days. albuterol HFA (PROAIR HFA) 90 mcg/actuation inhaler Inhale 2 Puffs as instructed every 4 hours as needed. scopolamine (TRANSDERM-SCOP) patch 1.5 mg/72 hr (delivers 1 mg over 3 days) Apply 1 Patch as directed every 72 hours. Apply patch to skin behind ear 4hrs prior to travel. azaTHIOprine (IMURAN) 100 mg tablet Take 100 mg by mouth once daily. Cholecalciferol, Vitamin D3, 25 mcg (1,000 unit) cap Take 25 mcg by mouth once daily. mometasone (NASONEX) 50 mcg/actuation nasal spray Use 2 Sprays in the nose twice daily. Fluticasone Furoate (FLONASE SENSIMIST) 27.5 mcg/actuation nasal spray Use 2 Sprays in each nostrilonce daily. EPINEPHrine (EPIPEN) 0.3 mg/0.3 mL auto-injector Inject 0.3 mL subcutaneously as needed. Then seek medical attention immediately. MULTI-VITAMIN ORAL Take by mouth. cetirizine (ZYRTEC) 10 mg tablet Take 10 [...] [Cephalexin] Rash Minocycline Hives Penicillins Rash, Itching Vishnu Darrick type reaction. Social History Tobacco Use Smoking status: Never Smokeless tobacco: Never Tobacco comments: Step father smoked in childhood. Spouse ex-smoker last 13 years. Vaping Use Vaping status: Never Used Substance Use Topics Alcohol use: Yes Comment: Rarely Drug use: No ROS: See HPI PE: BP 145/87 Pulse 80 Temp (Src) 97.4 (Temporal) Resp 12 Wt 152 lb (68.9kg) LMP 08/24/2020 Gen: A&OX3, NAD, non-toxic appearing HEENT: PERRLA, EOMs intact b/l, nares without drainage, pharynx without erythema, exudate, lesions,or drainage. Uvula midline. Neck: No LAD, no thyromegaly, no meningismus. CV: RRR, 1/6 HSM RLSB murmur Lungs: CTA b/l, no wheezing Skin: No rashes, lesions, or wounds on exposed skin. No edema, pulses 1-2+ B/l DP and posterior tibial ASSESSMENT/PLAN: 1. Elevated blood pressure reading without diagnosis of hypertension - ICD9: 796.2, ICD10: R03.0 (primary diagnosis) - Encouraged dietary sodium restriction/DASH diet - Recommended regular aerobic exercise. - Recommend home blood pressure monitoring, to bring results in on next visit - Encouraged avoidance of excessive alcohol intake - Discussed need and benefit for weight loss. - Reviewed risks of HTN and principles of treatment - Goal of BP <130/80 - ECHO - PERFLUTREN LIPID MICROSPHERES 1.1 MG/ML INJECTION IN NS 10 ML - SODIUM CHLORIDE 0.9 % (FLUSH) INJECTION SYRINGE - US CAROTID ARTERIES [facility] - PROPRANOLOL ER 60 MG CAPSULE,24 HR,EXTENDED RELEASE - US RENAL ARTERY [facility] - PVR ANK PRESS [facility] 2. Decreased libido - ICD9: 799.81, ICD10: R68.82 Need for labs and f/u with [facility] to discuss starting HRT - PROGESTERONE - ESTRADIOL-17B BLD - TESTOSTERONE, FREE AND TOTAL, BY EQUILIBRIUM ULTRAFILTRATION MASS SPECTROMETRY 3. Headache disorder - ICD9: 784.0, ICD10: R51.9 See above, start on propranolol, titrate up as needed. Labs and testing as ordered - PROPRANOLOL ER 60 MG CAPSULE,24 HR,EXTENDED RELEASE - US RENAL ARTERY [facility] - PVR ANK PRESS [facility] 4. Abnormal foot color - ICD9: 782.9, ICD10: R23.8 - PVR ANK PRESS [facility] To Longoria DO Return if no improvement. Follow up with To Longoria DO. To ER if develops chest pain, shortness of breath. Discussed risks, benefits, alternatives, and potential side effects of medications. Patient/Guardian expressed understanding and agreed with the plan. See patient instructions. To Longoria DO [address] [place] [address] documented in this encounterSt. [facility]10[facility] Telephone encounter Note * Telephone Encounter - Tere Tellez MA - 08/20/2024 2:58 PM EDT Prescription Refill Information The patient has been identified by name and date of : Yes Caregiver verified no other encounters exist for this prescription request: Yes Caregiver confirmed with patient/requestor that no other refills are due, in the near future, with this provider at this time: No The last office visit in the department: 07/09/24 Does the patient have a future office visit with this provider/department: No Requested Prescriptions Pending Prescriptions Disp Refills esomeprazole (NEXIUM) 40 mg capsule 180 capsule 5 Sig: Take 1 capsule by mouth two times a day before meals. 1/2 hr before meal. Tere Tellez MA August 20, 2024 2:[address] [facility] Miscellaneous Notes* Telephone Encounter - Tere Tellez MA - 08/20/2024 2:58 PM EDT Prescription Refill Information The patient has been identified by name and date of : Yes Caregiver verified no other encounters exist for this prescription request: Yes Caregiver confirmed with patient/requestor that no other refills are due, in the near future, with this provider at this time: No The last office visit in the department: 07/09/24 Does the patient have a future office visit with this provider/department: No Requested Prescriptions Pending Prescriptions Disp Refills esomeprazole (NEXIUM) 40 mg capsule 180 capsule 5 Sig: Take 1 capsule by mouth two times a day before meals. 1/2 hr before meal. Tere Tellez MA August 20, 2024 2:58 PM documented in this encounterSt. [facility]09-20-2024 Telephone encounter Note * Telephone Encounter - Tania Robertson - 08/09/2024 11:00 AM EDT The following medication(s) is being requested: LAST APPT - 08/06/24 NEXT APPT - N/A Requested Prescriptions Pending Prescriptions Disp Refills vilazodone (VIIBRYD) 40 mg tablet 90 tablet 0 Sig: Take 1 tablet by mouth once daily. Please process accordingly Tania Robertson [facility] Miscellaneous Notes* Telephone Encounter - Tania Robertson - 08/09/2024 11:00 AM EDT The following medication(s) is being requested: LAST APPT - 08/06/24 NEXT APPT - N/A Requested Prescriptions Pending Prescriptions Disp Refills vilazodone (VIIBRYD) 40 mg tablet 90 tablet 0 Sig: Take 1 tablet by mouth once daily. Please process accordingly Tania Robertson documented in this encounterSt. Elizabeth Hospital09-17-2024 Note* Addendum Note - Laurel Benz DO - 08/06/2024 2:41 PM EDTAddended by: LAUREL BENZ on: 08/06/2024 02:41 PM Modules accepted: Orders [facility]09-17-[facility] Miscellaneous Notes* Addendum Note - Laurel Benz DO - 08/06/2024 2:41 PM EDTAddended by: LAUREL BENZ on: 08/06/2024 02:41 PM Modules accepted: Orders documented in this encounterSt. Elizabeth Hospital09-17-2024 NoteHNO ID: [id number] Author: LAUREL BENZ DO Service: ? Author Type: Physician Type: Progress Notes Filed: 08/06/2024 14:36 Note Text: FOLLOW UP - PSYCHIATRIC PROGRESS [...] visit. Either the patient or their legal outside sales account representative has been informed of the risks and benefits of -- and alternatives to -- treatment through a remote evaluation and consents to proceed with the evaluation remotely. Reason for Visit: Outpatient follow-up and safety monitoring of previously prescribed psychiatric medication, psychotherapy or other treatment CC: anxiety and depression HPI: Having a hard time with her 20 yr old son . She is being evaluated for ketamine treatment with [facility] [address], Matthew was rec IV ketamine with therapy based treatment for ptsd. She has tons in her childhood and Earle tried to kill himself when he was 14 . He was threatening and admitted that he took xanax . He knows how to manipulate and feels he is on the spectrum. She saw a psychiatrist at [facility] [address] who talked to her for 2 hours and she will see her in person. She wants to try the Spravato 2 times a week for 4 weeks then start the guided therapy. She rec 6-8 IV ketamine 2 times a week. Risks and benefits of the medication, including any black box warnings, were discussed with the patient. Interval Progress: some worse PATIENT DATA: Generalized Anxiety Disorder Scale (KATHIE-7) 03/27/2024 07/05/2024 08/06/2024 KATHIE - 7 SCORES Score 5 7 11 (0-4) minimal anxiety, (5-9) mild anxiety, (10-14) moderate anxiety, (15-21) severe anxiety Patient Health Questionnaire (PHQ-9) 03/27/2024 07/05/2024 08/06/2024 PHQ-9 Score 3 6 10 (0-4) minimal depression, (5-9) mild depression, (10-14) moderate depression, (15-19) moderately severe depression, (20-27) severe depression PROMIS Global Health 12/03/2023 03/27/2024 07/02/2024 PROMIS Global Health - (T-Scores - the mean of general population = 50. Five points is a clinically meaningful difference.) Physical T-Score 50.8 50.8 50.8 Mental T-Score 45.8 43.5 45.8 PAST MEDICAL HISTORY Diagnosis Date Abnormal [...] airway disease Severe pre-eclampsia, condition or complication Driver general hospitalization Stone, kidney x2 Vitamin D [...] DANDC and ablation Dr. Silveira S HERNIA PATCH,VENTRALEX,[id number] abdomen STEROTACTIC GUIDE BREAST BX 10/01/2012 u/s guidance of left breast VAGINAL HYSTERECTOMY right Ovary remains Current Outpatient Medications Medication Sig Dispense Refill buPROPion XL (WELLBUTRIN XL) 300 mg 24 hr tablet Take 1 tablet by mouth once daily. 90 tablet 0 meloxicam (MOBIC) 15 mg tablet Take 1 tablet by mouth once daily. With food. 90 tablet 1 gabapentin (NEURONTIN) 100 mg capsule Take 1 capsule by mouth three times a day as needed (low back pain with sciatica) for up to 30 days. 60 capsule 1 predniSONE (DELTASONE) 20 mg tablet Take 2 tablets by mouth once daily. 10 tablet 0 cyclobenzaprine (FLEXERIL) 10 mg tablet Take 1 tablet by mouth three times a day as needed for muscle spasm. 30 tablet 0 clonazePAM (KLONOPIN) 0.5 mg tablet Take 1 tablet by mouth at bedtime as needed for up to 30 days. 30 tablet 0 vilazodone (VIIBRYD) 40 mg tablet Take 1 tablet by mouth once daily. 90 tablet 0 albuterol HFA (PROAIR HFA) 90 mcg/actuation inhaler Inhale 2 Puffs as instructed every 4 hours as needed. 1 Each 2 scopolamine (TRANSDER (more content not included)...[facility]09-17-2024 History of Present illness Narrative* Laurel Benz, DO - 08/06/2024 2:18 PM EDT FOLLOW UP - PSYCHIATRIC PROGRESS NOTE Visit [...] visit. Either the patient or their legal outside sales account representative has been informed of the risks and benefits of -- and alternatives to -- treatment through a remote evaluation and consents to proceed with the evaluation remotely. Reason for Visit: Outpatient follow-up and safety monitoring of previously prescribed psychiatric medication, psychotherapy or other treatment CC: anxiety and depression HPI: Having a hard time with her 20 yr old son . She is being evaluated for ketamine treatment with [id number], Matthew was rec IV ketamine with therapy based treatment for ptsd. She has tons in her childhood and Earle tried to kill himself when he was 14 . He was threatening and admitted that he took xanax . He knows how to manipulate and feels he is on the spectrum. She saw a psychiatrist at [place] [id number] who talked to her for 2 hours and she will see her in person. She wants to try the Spravato 2 times a week for 4 weeks then start the guided therapy. She rec 6-8 IV ketamine 2 times a week. Risks and benefits of the medication, including any black box warnings, were discussed with the patient. Interval Progress: some worse PATIENT DATA: Generalized Anxiety Disorder Scale (KATHIE-7) 03/27/2024 07/05/2024 08/06/2024 KATHIE - 7 SCORES Score 5 7 11 (0-4) minimal anxiety, (5-9) mild anxiety, (10-14) moderate anxiety, (15-21) severe anxiety Patient Health Questionnaire (PHQ-9) 03/27/2024 07/05/2024 08/06/2024 PHQ-9 Score 3 6 10 (0-4) minimal depression, (5-9) mild depression, (10-14) moderate depression, (15-19) moderately severe depression, (20-27) severe depression PROMIS Global Health 12/03/2023 03/27/2024 07/02/2024 PROMIS Global Health - (T-Scores - the mean of general population = 50. Five points is a clinicallymeaningful difference.) Physical T-Score 50.8 50.8 50.8 Mental T-Score 45.8 43.5 45.8 PAST MEDICAL HISTORY Diagnosis Date Abnormal [...] airway disease Severe pre-eclampsia, condition or complication Driver general hospitalization Stone, kidney x2 Vitamin D [...] D&C and ablation Dr. Silveira S HERNIA PATCH,VENTRALEX,[id number] abdomen STEROTACTIC GUIDE BREAST BX 10/01/2012 u/s guidance of left breast VAGINAL HYSTERECTOMY right Ovary remains Current Outpatient Medications Medication Sig Dispense Refill buPROPion XL (WELLBUTRIN XL) 300 mg 24 hr tablet Take 1 tablet by mouth once daily. 90 tablet 0 meloxicam (MOBIC) 15 mg tablet Take 1 tablet by mouth once daily. With food. 90 tablet 1 gabapentin (NEURONTIN) 100 mg capsule Take 1 capsule by mouth three times a day as needed (low backpain with sciatica) for up to 30 days. 60 capsule 1 predniSONE (DELTASONE) 20 mg tablet Take 2 tablets by mouth once daily. 10 tablet 0 cyclobenzaprine (FLEXERIL) 10 mg tablet Take 1 tablet by mouth three times a day as needed for muscle spasm. 30 tablet 0 clonazePAM (KLONOPIN) 0.5 mg tablet Take 1 tablet by mouth at bedtime as needed for up to 30 days. 30 tablet 0 vilazodone (VIIBRYD) 40 mg tablet Take 1 tablet by mouth once daily. 90 tablet 0 albuterol HFA (PROAIR HFA) 90 mcg/actuation inhaler Inhale 2 Puffs as instructed every 4 hours as needed. 1 Each 2 scopolamine (TRANSDERM-SCOP) patch 1.5 mg/72 hr (delivers 1 mg over 3 days) Apply 1 Patch as directed every 72 hours. Apply patch to skin behind ear 4hrs prior to travel. 10 Patch 0 azaTHIOprine (IMURAN) 100 mg tablet Take 100 mg by mouth once daily. esomeprazole (NEXIUM) 40 mg capsule Take 1 capsule by mouth twice daily before meals. 1/2 hr beforemeal. 180 capsule 5 Cholecalciferol, Vitamin D3, 25 mcg (1,000 unit) cap Take 25 mcg by mouth once daily. mometasone (NASONEX) 50 mcg/actuation nasal spray Use 2 Sprays in the nose twice daily. Fluticasone Furoate (FLONASE SENSIMIST) 27.5 mcg/actuation nasal spray Use 2 Sprays in each nostrilonce daily. EPINEPHrine (EPIPEN) 0.3 mg/0.3 mL auto-injector Inject 0.3 mL subcutaneously as needed. Then seek medical attention immediately. 2 Each 1 MULTI-VITAMIN ORAL Take by mouth. cetirizine (ZYRTEC) 10 mg tablet Take 10 mg by mouth once daily. No current facility-administered medications for this visit. ROS: denied PFSH: none VITAL SIGNS: There were no vitals filed for this visit. MENTAL STATUS EXAM: CONSTITUTIONAL: Well groomed ORIENTATION: Person, Place, Time and Situation MEMORY: Recent intact CONCENTRATION: Normal MOOD: depressed and anxious AFFECT: Full and appropriate to topic SPEECH : Clear & distinct LANGUAGE : Normal ASSOCIATIONS: Intact THOUGHT PROCESS : Logical, Coherent, and Rational PROGRESSION : There was no evidence of disturbance in thought perception or progression. FUND OF KNOWLEDGE : Appropriate and Adequate SUICIDE: None HOMICIDE: None DATA REVIEWED: None DIAGNOSIS: PMDD, KATHIE, MDD recurrent TREATMENT PLAN: viibryd 40 mg po daily, wellbutrin XL 300 Will transfer care to psychiatrist in [address] treatment Dr Staley Transfer records to Dr Staley will need release of information faxed. I spent a total of 30 minutes on the date of the service which included preparing to see the patient, completing clinical documentation, and obtaining and/or reviewing separately obtained history. ADD ON PSYCHOTHERAPY CODE : No SIGNATURE: Laurel Benz DO PATIENT NAME: Brice Gomez DATE: August 06, 2024 TIME: 2:18 PM documented in this encounterSt[facility] History of Present illness Narrative* To Longoria DO - 07/11/2024 9:17 AM EDT CC: Brice Gomez is a 43 year old female who presents to the office for follow up HPI: Seen in office on 05/14/24, at that time Low back pain, acute on chronic. 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 Has intermittent low back pain flare ups but usually able to control with stretches and yoga etc. Recently pain started around 04/29 or 04/30 and was severe low back, radiating to b/l thighs with a burning/tingling sensation as well as radiating from low back midline to b/l gluteal and sacral area. She was struggling to lay down, couldn't lay on her back or stomach when she was trying to go to sleep at night. No bowel or bladder incontinence. The xrays show the L5 pars defect as well as other changes on the spine. She has been to the chiropractor for 3 visits without relief. She has been to Saundra Cesar at [facility] for PHYSICAL THERAPY and aqua therapy with minimal relief. She has taken NSAIDs and tylenol and low dose of prednisone without relief of symptoms Mood, stable, taking medications as prescribed. Migraine headaches, stable She has been off work since 05/07 due to the severity of the back pain. 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 At follow up visit on 06/03/2024 She is still struggling with left >right low back pain but has completed 10-11 PHYSICAL THERAPY sessions through [facility] and feels this is helping her somewhat. Worse pain when laying flat orstanding still. Better when she is able to move a lot. Better when not twisting or heavy lifting. Is scheduled to go back to work tomorrow. No fevers or chills. No weakness. Pain going into left lateral thigh and calf muscle cramping. No falls At last OFFICE VISIT on 06/18/24 She is still struggling with low back pain but does feel that her symptoms are about 40-50% better after her recent L4-S1 left epidural procedure by Dr. Gaston a few days ago. She was also able to get opinion by spine surgeon whom feels it is likely just a matter of time until she is going to need spine surgery since she has a spina bifida occulta defect of her spine. She has been wearing St tennis shoes as well as using ibuprofen 800 mg and lidocaine patch and icing multiple times a day to help pain. Waking up in the AM with pain and pain with prolonged siting or standing. Has to change positions often. 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 Plan at this time was Agree with f/u with and DR. Gaston, continue NSAID and topical treatment. Add on prn gabapenti at this time for nerve radicular pain Ok to return to work with reduced 8 hour shifts Currently Low back pain and sciatica, she has been seen by pain mgmt and had low back injections with some benefit. She would like to try to return to normal 12 hour shifts at work and feels she can handle this at this time without modifications. She is continuing her use of ice and heat and NSAIDs and stretching. PAST MEDICAL HISTORY 01/31/2013: Abnormal uterine bleeding No date: Allergic rhinitis, cause unspecified Comment: Allergic rhinitis. Immunotherapy in past, [facility]. No date: Depression No date: Fibrosclerosis of breast No date: H. 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 No date: Neck pain, musculoskeletal 08/2016: FLORENTINO (obstructive sleep apnea) Comment: stopped using c-pap No date: PMH - PAST MEDICAL HISTORY OF Comment: IUD No date: PMH - PAST MEDICAL HISTORY OF Comment: EPISODES OF TACCHYCARDIA DURING No date: Pneumonia due to COVID-19 virus No date: Reactive airway disease No date: Severe pre-eclampsia, condition or complication Comment: Driver general hospitalization No date: Stone, kidney Comment: x2 No date: Vitamin D deficiency PAST SURGICAL HISTORY No date: BREAST ASPIRATION Comment: fibroadenoma removal left breast 10/23/2020: COLONOSCOPY GEN ANES Comment: blas 03/18/2020: COVID19 10/23/2020: EGD 01/05/2018: EYE SURG ANT SGMT PROC UNLISTED; Bilateral Comment: PRK (Photorefractive Keratectomy) 05/2013: HYSTEROSCOPY WBX WWO D AND C ANDOR POLYPECTOMY Comment: polyp 2009: IR BASKET STONE EXTRACTION No date: LAPAROSCOPIC HEMICOLECTOMY; Right No date: LIG/TRNSXJ FLP TUBE ABDL/VAG APPR UNI/BI Comment: Tubal ligation No date: PAST SURGICAL HISTORY OF Comment: x2 No date: PAST SURGICAL HISTORY OF Comment: wisdom teeth 05/19/2016: PAST SURGICAL HISTORY OF Comment: D&C and ablation Dr. Silveira No date: S HERNIA PATCH,VENTRALEX,[id number] Comment: abdomen 10/01/2012: STEROTACTIC GUIDE BREAST BX Comment: u/s guidance of left breast No date: VAGINAL HYSTERECTOMY Comment: right Ovary remains Current Outpatient Medications Medication Sig buPROPion XL (WELLBUTRIN XL) 300 mg 24 hr tablet Take 1 tablet by mouth once daily. meloxicam (MOBIC) 15 mg tablet Take 1 tablet by mouth once daily. With food. gabapentin (NEURONTIN) 100 mg capsule Take 1 capsule by mouth three times a day as needed (low backpain with sciatica) for up to 30 days. predniSONE (DELTASONE) 20 mg tablet Take 2 tablets by mouth once daily. cyclobenzaprine (FLEXERIL) 10 mg tablet Take 1 tablet by mouth three times a day as needed for muscle spasm. clonazePAM (KLONOPIN) 0.5 mg tablet Take 1 tablet by mouth at bedtime as needed for up to 30 days. vilazodone (VIIBRYD) 40 mg tablet Take 1 tablet by mouth once daily. albuterol HFA (PROAIR HFA) 90 mcg/actuation inhaler Inhale 2 Puffs as instructed every 4 hours as needed. scopolamine (TRANSDERM-SCOP) patch 1.5 mg/72 hr (delivers 1 mg over 3 days) Apply 1 Patch as directed every 72 hours. Apply patch to skin behind ear 4hrs prior to travel. azaTHIOprine (IMURAN) 100 mg tablet Take 100 mg by mouth once daily. esomeprazole (NEXIUM) 40 mg capsule Take 1 capsule by mouth twice daily before meals. 1/2 hr beforemeal. Cholecalciferol, Vitamin D3, 25 mcg (1,000 unit) cap Take 25 mcg by mouth once daily. mometasone (NASONEX) 50 mcg/actuation nasal spray Use 2 Sprays in the nose twice daily. Fluticasone Furoate (FLONASE SENSIMIST) 27.5 mcg/actuation nasal spray Use 2 Sprays in each nostrilonce daily. EPINEPHrine (EPIPEN) 0.3 mg/0.3 mL auto-injector Inject 0.3 mL subcutaneously as needed. Then seek medical attention immediately. MULTI-VITAMIN ORAL Take by mouth. cetirizine (ZYRTEC) 10 mg tablet Take 10 [...] [Cephalexin] Rash Minocycline Hives Penicillins Rash, Itching Vishnu Darrick type reaction. Social History Tobacco Use Smoking status: Never Smokeless tobacco: Never Tobacco comments: Step father smoked in childhood. Spouse ex-smoker last 13 years. Vaping Use Vaping status: Never Used Substance Use Topics Alcohol use: Yes Comment: Rarely Drug use: No ROS: See HPI PE: BP 120/70 Pulse 80 Temp (Src) 97.2 (Right Tympanic) Resp 16 Wt 149 lb (67.6kg) LMP 08/24/2020 Gen: A&OX3, NAD, non-toxic appearing HEENT: PERRLA, EOMs intact b/l, nares without drainage, pharynx without erythema, exudate, lesions,or drainage. Uvula midline. Neck: No LAD, no thyromegaly, no meningismus. CV: RRR, no murmur Lungs: CTA b/l, no wheezing Skin: No rashes, lesions, or wounds on exposed skin. Reduced ROM lumbar spine secondary to pain but is less painful then when in office at last visit 3 weeks ago ASSESSMENT/PLAN: 1. Lumbosacral radiculopathy at L5 - ICD9: 724.4, ICD10: M54.17 (primary diagnosis) Sciatica Okay to return to normal work shifts at this time- paperwork completed during office visit today - Ice for localized tenderness - Warm moist heat for 20 min three times a day - NSAIDS- see orders F/u with pain mgmt as needed for injections 2. DDD (degenerative disc disease), lumbar - ICD9: 722.52, ICD10: M51.36 Sciatica - Ice for localized tenderness - Warm moist heat for 20 min three times a day - NSAIDS- see orders F/u with pain mgmt as needed for injections 3. Osteoarthritis of spine with radiculopathy, lumbar region - ICD9: 721.3, ICD10: M47.26 Sciatica - Ice for localized tenderness - Warm moist heat for 20 min three times a day - NSAIDS- see orders F/u with pain mgmt as needed for injections 4. Chronic bilateral low back pain with bilateral sciatica - ICD9: 724.2, 724.3, 338.29, ICD10: M54.42, M54.41, G89.29 Sciatica - Ice for localized tenderness - Warm moist heat for 20 min three times a day - NSAIDS- see orders F/u with pain mgmt as needed for injections To Longoria DO Return if no improvement. Follow up with To Longoria DO. To ER if develops chest pain, shortness of breath. Discussed risks, benefits, alternatives, and potential side effects of medications. Patient/Guardian expressed understanding and agreed with the plan. See patient instructions. To Longoria DO [address] [place] [address] documented in this encounterSt[facility]08[facility] Telephone encounter Note * Telephone Encounter - Tania Robertson - 07/10/2024 10:11 AM EDT The following medication(s) is being requested: LAST APPT - 04/03/24 NEXT APPT - 08/06/24 Requested Prescriptions Pending Prescriptions Disp Refills buPROPion XL (WELLBUTRIN XL) 300 mg 24 hr tablet 90 tablet 0 Sig: Take 1 tablet by mouth once daily. Please process accordingly Tania Robertson [facility] Miscellaneous Notes* Telephone Encounter - Tania Robertson - 07/10/2024 10:11 AM EDT The following medication(s) is being requested: LAST APPT - 04/03/24 NEXT APPT - 08/06/24 Requested Prescriptions Pending Prescriptions Disp Refills buPROPion XL (WELLBUTRIN XL) 300 mg 24 hr tablet 90 tablet 0 Sig: Take 1 tablet by mouth once daily. Please process accordingly Tania Robertson * Telephone Encounter - Arabella Curtis - 07/10/2024 9:28 AM EDT Requested Prescriptions Pending Prescriptions Disp Refills buPROPion XL (WELLBUTRIN XL) 300 mg 24 hr tablet 90 tablet 0 Sig: Take 1 tablet by mouth once daily. documented in this encounterSt. [facility]08-[facility] Telephone encounter Note * Telephone Encounter - Arabella Curtis - 07/10/2024 9:28 AM EDT Requested Prescriptions Pending Prescriptions Disp Refills buPROPion XL (WELLBUTRIN XL) 300 mg 24 hr tablet 90 tablet 0 Sig: Take 1 tablet by mouth once daily. [facility] Telephone encounter Note* Telephone Encounter - Camila Garza PA-C - 06/25/2024 11:10 AM EDT This was sent by PCP Camila Garza PA-C [facility] Miscellaneous Notes* Telephone Encounter - Camila Garza PA-C - 06/25/2024 11:10 AM EDT This was sent by PCP Camila Garza PA-C * Telephone Encounter - Soumya Ureña MA - 06/19/2024 10:48 AM EDT Please see pt message -- I didn t know if your nurse remembered to ask you to write a script for meloxicam today. We never finished talking about it. Can you order if for me to [facility] pharmacy? Thanks! Brice documented in this encounterSt. [facility]07-[facility] History of Present illness Narrative* To Longoria DO - 06/19/2024 8:31 PM EDT CC: Brice Gomez is a 43 year old female who presents to the office for follow up HPI: Seen in office on 05/14/24, at that time Low back pain, acute on chronic. 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 Has intermittent low back pain flare ups but usually able to control with stretches and yoga etc. Recently pain started around 04/29 or 04/30 and was severe low back, radiating to b/l thighs with a burning/tingling sensation as well as radiating from low back midline to b/l gluteal and sacral area. She was struggling to lay down, couldn't lay on her back or stomach when she was trying to go to sleep at night. No bowel or bladder incontinence. The xrays show the L5 pars defect as well as other changes on the spine. She has been to the chiropractor for 3 visits without relief. She has been to Saundra Cesar at [facility] for PHYSICAL THERAPY and aqua therapy with minimal relief. She has taken NSAIDs and tylenol and low dose of prednisone without relief of symptoms Mood, stable, taking medications as prescribed. Migraine headaches, stable She has been off work since 05/07 due to the severity of the back pain. 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 At follow up visit on 06/03/2024 She is still struggling with left >right low back pain but has completed 10-11 PHYSICAL THERAPY sessions through [facility] and feels this is helping her somewhat. Worse pain when laying flat orstanding still. Better when she is able to move a lot. Better when not twisting or heavy lifting. Is scheduled to go back to work tomorrow. No fevers or chills. No weakness. Pain going into left lateral thigh and calf muscle cramping. No falls Currently She is still struggling with low back pain but does feel that her symptoms are about 40-50% better after her recent L4-S1 left epidural procedure by Dr. Gaston a few days ago. She was also able to get opinion by spine surgeon whom feels it is likely just a matter of time until she is going to need spine surgery since she has a spina bifida occulta defect of her spine. She has been wearing [employer] tennis shoes as well as using ibuprofen 800 mg and lidocaine patch and icing multiple times a day to help pain. Waking up in the AM with pain and pain with prolonged siting or standing. Has to change positions often. 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 PAST MEDICAL HISTORY 01/31/2013: Abnormal uterine bleeding No date: Allergic rhinitis, cause unspecified Comment: Allergic rhinitis. Immunotherapy in past, [facility]. No date: Depression No date: Fibrosclerosis of breast No date: H. 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 No date: Neck pain, musculoskeletal 08/2016: FLORENTINO (obstructive sleep apnea) Comment: stopped using c-pap No date: PMH - PAST MEDICAL HISTORY OF Comment: IUD No date: PMH - PAST MEDICAL HISTORY OF Comment: EPISODES OF TACCHYCARDIA DURING No date: Pneumonia due to COVID-19 virus No date: Reactive airway disease No date: Severe pre-eclampsia, condition or complication Comment: Driver general hospitalization No date: Stone, kidney Comment: x2 No date: Vitamin D deficiency PAST SURGICAL HISTORY No date: BREAST ASPIRATION Comment: fibroadenoma removal left breast 10/23/2020: COLONOSCOPY GEN ANES Comment: blas 03/18/2020: COVID19 10/23/2020: EGD 01/05/2018: EYE SURG ANT SGMT PROC UNLISTED; Bilateral Comment: PRK (Photorefractive Keratectomy) 05/2013: HYSTEROSCOPY WBX WWO D AND C ANDOR POLYPECTOMY Comment: polyp 2009: IR BASKET STONE EXTRACTION No date: LAPAROSCOPIC HEMICOLECTOMY; Right No date: LIG/TRNSXJ FLP TUBE ABDL/VAG APPR UNI/BI Comment: Tubal ligation No date: PAST SURGICAL HISTORY OF Comment: x2 No date: PAST SURGICAL HISTORY OF Comment: wisdom teeth 05/19/2016: PAST SURGICAL HISTORY OF Comment: D&C and ablation Dr. Silveira No date: S HERNIA PATCH,VENTRALEX,[id number] Comment: abdomen 10/01/2012: STEROTACTIC GUIDE BREAST BX Comment: u/s guidance of left breast No date: VAGINAL HYSTERECTOMY Comment: right Ovary remains Current Outpatient Medications Medication Sig meloxicam (MOBIC) 15 mg tablet Take 1 tablet by mouth once daily. With food. predniSONE (DELTASONE) 20 mg tablet Take 2 tablets by mouth once daily. cyclobenzaprine (FLEXERIL) 10 mg tablet Take 1 tablet by mouth three times a day as needed for muscle spasm. buPROPion XL (WELLBUTRIN XL) 300 mg 24 hr tablet Take 1 tablet by mouth once daily. clonazePAM (KLONOPIN) 0.5 mg tablet Take 1 tablet by mouth at bedtime as needed for up to 30 days. vilazodone (VIIBRYD) 40 mg tablet Take 1 tablet by mouth once daily. albuterol HFA (PROAIR HFA) 90 mcg/actuation inhaler Inhale 2 Puffs as instructed every 4 hours as needed. scopolamine (TRANSDERM-SCOP) patch 1.5 mg/72 hr (delivers 1 mg over 3 days) Apply 1 Patch as directed every 72 hours. Apply patch to skin behind ear 4hrs prior to travel. azaTHIOprine (IMURAN) 100 mg tablet Take 100 mg by mouth once daily. esomeprazole (NEXIUM) 40 mg capsule Take 1 capsule by mouth twice daily before meals. 1/2 hr beforemeal. Cholecalciferol, Vitamin D3, 25 mcg (1,000 unit) cap Take 25 mcg by mouth once daily. mometasone (NASONEX) 50 mcg/actuation nasal spray Use 2 Sprays in the nose twice daily. Fluticasone Furoate (FLONASE SENSIMIST) 27.5 mcg/actuation nasal spray Use 2 Sprays in each nostrilonce daily. EPINEPHrine (EPIPEN) 0.3 mg/0.3 mL auto-injector Inject 0.3 mL subcutaneously as needed. Then seek medical attention immediately. MULTI-VITAMIN ORAL Take by mouth. cetirizine (ZYRTEC) 10 mg tablet Take 10 [...] [Cephalexin] Rash Minocycline Hives Penicillins Rash, Itching Vishnu Darrick type reaction. Social History Tobacco Use Smoking status: Never Smokeless tobacco: Never Tobacco comments: Step father smoked in childhood. Spouse ex-smoker last 13 years. Vaping Use Vaping Use: Never used Substance Use Topics Alcohol use: Yes Comment: Rarely Drug use: No ROS: See Hpi PE: BP 124/80 Pulse 88 Temp (Src) 99.2 (Left Tympanic) Resp 12 Wt 148 lb (67.1kg) LMP 08/24/2020 Gen: A&OX3, NAD, non-toxic appearing HEENT: PERRLA, EOMs intact b/l, nares without drainage, pharynx without erythema, exudate, lesions,or drainage. Uvula midline. Neck: No LAD, no thyromegaly, no meningismus. CV: RRR, no murmur Lungs: CTA b/l, no wheezing Skin: No rashes, lesions, or wounds on exposed skin. Reduced ROM lumbar spine secondary to pain Frequently changing positions in the office sitting to standing ASSESSMENT/PLAN: 1. Lumbosacral radiculopathy at L5 - ICD9: 724.4, ICD10: M54.17 (primary diagnosis) Agree with f/u with and DR. Gaston, continue NSAID and topical treatment. Add on prn gabapenti at this time for nerve radicular pain Ok to return to work with reduced 8 hour shifts 2. DDD (degenerative disc disease), lumbar - ICD9: 722.52, ICD10: M51.36 Agree with f/u with and DR. Gaston, continue NSAID and topical treatment. Add on prn gabapenti at this time for nerve radicular pain Ok to return to work with reduced 8 hour shifts 3. Osteoarthritis of spine with radiculopathy, lumbar region - ICD9: 721.3, ICD10: M47.26 Agree with f/u with and DR. Gaston, continue NSAID and topical treatment. Add on prn gabapenti at this time for nerve radicular pain Ok to return to work with reduced 8 hour shifts 4. Paresthesia of skin - ICD9: 782.0, ICD10: R20.2 Agree with f/u with and DR. Gaston, continue NSAID and topical treatment. Add on prn gabapenti at this time for nerve radicular pain Ok to return to work with reduced 8 hour shifts 5. Pars defect of lumbar spine - ICD9: 738.4, ICD10: M43.06 Agree with f/u with and DR. Gaston, continue NSAID and topical treatment. Add on prn gabapenti at this time for nerve radicular pain Ok to return to work with reduced 8 hour shifts To Longoria DO Return if no improvement. Follow up with To Longoria DO. To ER if develops chest pain, shortness of breath. Discussed risks, benefits, alternatives, and potential side effects of medications. Patient/Guardian expressed understanding and agreed with the plan. See patient instructions. To Longoria DO [address] [place] [address] documented [facility] Telephone encounter Note * Telephone Encounter - Soumya Ureña MA - 06/19/2024 10:48 AM EDT Please see pt message -- I didn t know if your nurse remembered to ask you to write a script for meloxicam today. We never finished talking about it. Can you order if for me to [facility]? Thanks! Brice [facility] Telephone encounter Note* Telephone Encounter - Soumya Ureña MA - 06/19/2024 10:47 AM EDT Turned into TE Soumya Ureña MA [facility] Miscellaneous Notes* Telephone Encounter - Soumya Ureña MA - 06/19/2024 10:47 AM EDT Turned into TE Soumya Ureña MA documented in this encounterSt. [facility]07-30-[facility]24 Telephone encounter Note * Telephone Encounter - To Longoria DO - 06/18/2024 4:55 PM EDT This was completed today during OFFICE VISIT To Longoria DO [facility] Miscellaneous Notes* Telephone Encounter - To Longoria DO - 06/18/2024 4:55 PM EDT This was completed today during OFFICE VISIT To Longoria DO * Telephone Encounter - Jessica Mcdowell LPN - 06/13/2024 8:54 AM EDT Spoke with pt she states her boss had her stay home last week because no work for her so that needed filled out and was. 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 She apologizes for all this back and fourth. * Telephone Encounter - To Longoria DO - 06/12/2024 10:08 PM EDT Please clarify since I have already filled out other paperwork To Longoria DO * Telephone Encounter - Jessica Mcdowell LPN - 06/03/2024 12:53 PM EDT Patient has been identified by name and date of : Yes, Provider Dr. Longoria Date 06/03/23 Time 12:55 Type of form: Short Term Disability Form received via: Fax When form is completed, fax form to fax number provided. Form has been forwarded to: Provider's desk. Provider name: Dr. Von Mcdowell LPN documented in this encounterSt. [facility]07[facility] Telephone encounter Note * Telephone Encounter - Tere Tellez MA - 06/17/2024 3:23 PM EDT From [employer] message: Called and left message for patient to call office back to fill out short term disability paperwork. See MyChart message to patient for information needed. Linda EL Alvarez June 17, 2024 1:41 PM Patient calls and states that she was seen in office for back pain (Lumbosacral radiculopathy at L5). Patient was unable to work the week of 06/03/2024 due to hospital not having work for her to do. That week would be the week she would need paperwork filled out for. Patient currently is working with restrictions since hospital now has work for her to do. See telephone encounter from 06/11/[address] [facility] Miscellaneous Notes* Telephone Encounter - Tere Tellez MA - 06/17/2024 3:23 PM EDT From [employer] message: Called and left message for patient to call office back to fill out short term disability paperwork. See MyChart message to patient for information needed. Linda LE Alvarez June 17, 2024 1:41 PM Patient calls and states that she was seen in office for back pain (Lumbosacral radiculopathy at L5). Patient was unable to work the week of 06/03/2024 due to hospital not having work for her to do. That week would be the week she would need paperwork filled out for. Patient currently is working with restrictions since hospital now has work for her to do. See telephone encounter from 06/11/2024 Jamia Gil RN * Telephone Encounter - Jamia Gil RN - 06/17/2024 1:54 PM EDT See note from 06/17/2024 * Telephone Encounter - Jamia Gil RN - 06/11/2024 12:52 PM EDT Patient calls and states that she is now back at work with restrictions today. Patient states that [facility] may be reaching out to provider in regards to this. Patient was not able to work last week because [employer] did not have work for her to do since patient was on restrictions. [employer] now has work,so patient is currently at work with the original restrictions. Please watch for possible fax from [facility]. Jamia Gil RN documented in this encounterSt. [facility]07-[facility]24 Telephone encounter Note * Telephone Encounter - Jamia Gil RN - 06/17/2024 1:54 PM EDT See note from 06/17/2024 [facility] Note* Telephone Encounter - Jamia Gil RN - 06/17/2024 1:51 PM EDT Patient calls and states that she was seen in office for back pain (Lumbosacral radiculopathy at L5). Patient was unable to work the week of 06/03/2024 due to hospital not having work for her to do. That week would be the week she would need paperwork filled out for. Patient currently is working with restrictions since hospital now has work for her to do. See telephone encounter from 06/11/[address] [facility] Miscellaneous Notes* Telephone Encounter - Jamia Gil RN - 06/17/2024 1:51 PM EDT Patient calls and states that she was seen in office for back pain (Lumbosacral radiculopathy at L5). Patient was unable to work the week of 06/03/2024 due to hospital not having work for her to do. That week would be the week she would need paperwork filled out for. Patient currently is working with restrictions since hospital now has work for her to do. See telephone encounter from 06/11/2024 Jamia Gil RN * Telephone Encounter - Linda Alvarez LPN - 06/17/2024 1:34 PM EDT Called and left message for patient to call office back to fill out short term disability paperwork. See MyChart message to patient for information needed. Linda Alvarez LPN June 17, 2024 1:41 PM documented in this encounterSt. [facility]07-[facility]-20[facility] Telephone encounter Note * Telephone Encounter - Linda Alvarez LPN - 06/17/2024 1:34 PM EDT Called and left message for patient to call office back to fill out short term disability paperwork. See MyChart message to patient for information needed. Linda Alvarez LPN June 17, 2024 1:[address] [facility] Telephone encounter Note* Telephone Encounter - Jessica Mcdowell LPN - 06/13/2024 8:54 AM EDT Spoke with pt she states her boss had her stay home last week because no work for her so that needed filled out and was. 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 She apologizes for all this back and fourth. [facility] Tele[facility] Note* Telephone Encounter - To Longoria DO - 06/12/2024 10:08 PM EDT Please clarify since I have already filled out other paperwork To Longoria DO [facility] Telephone encounter Note* Telephone Encounter - Jamia Gil RN - 06/11/2024 12:52 PM EDT Patient calls and states that she is now back at work with restrictions today. Patient states that [facility] may be reaching out to provider in regards to this. Patient was not able to work last week because [employer] did not have work for her to do since patient was on restrictions. [employer] now has work,so patient is currently at work with the original restrictions. Please watch for possible fax from [facility]. Jamia Gil RN [facility] Telephone encounter Note* Telephone Encounter - Estrella Knight APRN.DAISY - 06/03/2024 4:29 PM EDT Noted. Thank you, Estrella Knight APRN.PALS NURSE [facility] Miscellaneous Notes* Telephone Encounter - Estrella Knight APRN.DAISY - 06/03/2024 4:29 PM EDT Noted. Thank you, Estrella Knight APRN.PALS NURSE * Telephone Encounter - Lisa Ruvalcaba LPN - 06/03/2024 12:56 PM EDT Patient calling she took the letter to her place of work and they could not let her work with the restrictions on her. Patient said [employer] is going to reach out to the office, may have to complete something else. She will remain off work until her appt on June [address] Ny[address] documented in this encounterSt. [facility]07-[facility]-2024 Telephone encounter Note * Telephone Encounter - Lisa Ruvalcaba LPN - 06/03/2024 12:56 PM EDT Patient calling she took the letter to her place of work and they could not let her work with the restrictions on her. Patient said [employer] is going to reach out to the office, may have to complete something else. She will remain off work until her appt on June [address] [facility] Telephone encounter Note* Telephone Encounter - Jessica Mcdowell LPN - 06/03/2024 12:53 PM EDT Patient has been identified by name and date of : Yes, Provider Dr. Longoria Date 06/03/23 Time 12:55 Type of form: Short Term Disability Form received via: Fax When form is completed, fax form to fax number provided. Form has been forwarded to: Provider's desk. Provider name: Dr. Von Mcdowell LPN [facility] History of Present illness Narrative* To Longoria DO - 06/03/2024 7:23 AM EDT CC: Brice Gomez is a 43 year old female who presents to the office for back pain follow up HPI: Seen in office on 05/14/24, at that time Low back pain, acute on chronic. 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 Has intermittent low back pain flare ups but usually able to control with stretches and yoga etc. Recently pain started around 04/29 or 04/30 and was severe low back, radiating to b/l thighs with a burning/tingling sensation as well as radiating from low back midline to b/l gluteal and sacral area. She was struggling to lay down, couldn't lay on her back or stomach when she was trying to go to sleep at night. No bowel or bladder incontinence. The xrays show the L5 pars defect as well as other changes on the spine. She has been to the chiropractor for 3 visits without relief. She has been to Saundra Cesar at [facility] for PHYSICAL THERAPY and aqua therapy with minimal relief. She has taken NSAIDs and tylenol and low dose of prednisone without relief of symptoms Mood, stable, taking medications as prescribed. Migraine headaches, stable She has been off work since 05/07 due to the severity of the back pain. 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 Currently She is still struggling with left >right low back pain but has completed 10-11 PHYSICAL THERAPY sessions through [facility] and feels this is helping her somewhat. Worse pain when laying flat orstanding still. Better when she is able to move a lot. Better when not twisting or heavy lifting. Is scheduled to go back to work tomorrow. No fevers or chills. No weakness. Pain going into left lateral thigh and calf muscle cramping. No falls PAST MEDICAL HISTORY Diagnosis Date Abnormal uterine [...] airway disease Severe pre-eclampsia, condition or complication Driver general hospitalization Stone, kidney x2 Vitamin D [...] D&C and ablation Dr. Silveira S HERNIA PATCH,VENTRALEX,[id number] abdomen STEROTACTIC GUIDE BREAST BX 10/01/2012 u/s guidance of left breast VAGINAL HYSTERECTOMY right Ovary remains Current Outpatient Medications Medication Sig predniSONE (DELTASONE) 20 mg tablet Take 2 tablets by mouth once daily. cyclobenzaprine (FLEXERIL) 10 mg tablet Take 1 tablet by mouth three times a day as needed for muscle spasm. buPROPion XL (WELLBUTRIN XL) 300 mg 24 hr tablet Take 1 tablet by mouth once daily. clonazePAM (KLONOPIN) 0.5 mg tablet Take 1 tablet by mouth at bedtime as needed for up to 30 days. vilazodone (VIIBRYD) 40 mg tablet Take 1 tablet by mouth once daily. albuterol HFA (PROAIR HFA) 90 mcg/actuation inhaler Inhale 2 Puffs as instructed every 4 hours as needed. scopolamine (TRANSDERM-SCOP) patch 1.5 mg/72 hr (delivers 1 mg over 3 days) Apply 1 Patch as directed every 72 hours. Apply patch to skin behind ear 4hrs prior to travel. azaTHIOprine (IMURAN) 100 mg tablet Take 100 mg by mouth once daily. esomeprazole (NEXIUM) 40 mg capsule Take 1 capsule by mouth twice daily before meals. 1/2 hr beforemeal. Cholecalciferol, Vitamin D3, 25 mcg (1,000 unit) cap Take 25 mcg by mouth once daily. mometasone (NASONEX) 50 mcg/actuation nasal spray Use 2 Sprays in the nose twice daily. Fluticasone Furoate (FLONASE SENSIMIST) 27.5 mcg/actuation nasal spray Use 2 Sprays in each nostrilonce daily. EPINEPHrine (EPIPEN) 0.3 mg/0.3 mL auto-injector Inject 0.3 mL subcutaneously as needed. Then seek medical attention immediately. MULTI-VITAMIN ORAL Take by mouth. cetirizine (ZYRTEC) 10 mg tablet Take 10 [...] [Cephalexin] Rash Minocycline Hives Penicillins Rash, Itching Vishnu Darrick type reaction. Social History Tobacco Use Smoking status: Never Smokeless tobacco: Never Tobacco comments: Step father smoked in childhood. Spouse ex-smoker last 13 years. Vaping Use Vaping Use: Never used Substance Use Topics Alcohol use: Yes Comment: Rarely Drug use: No ROS: See HPI. PE: LMP 08/24/2020 Gen: A&O, NAD, non-toxic appearing, Pleasant, cooperative HEENT: NT/AC, PERRLA, EOMs intact b/l, nares clear and patent b/l, pharynx without erythema, exudate or lesions. Uvula midline. MMM, EACs without erythema or debris. TMs pearly cotter with intact landmarks b/l. Neck: supple, No cervical LAD, no thyromegaly, no carotid bruits CV: RRR, normal S1 and S2, no murmurs, no gallops, no rubs, Pulses 2+ and symmetric in UE and LE b/l Lungs: normal respiratory effort, CTA b/l, no wheezing or rhonchi or rales Abd: soft, NT, ND, +BS, no hepatosplenomegaly MS: significant pain in lumbar spine area midline and pain in sacral area with radiation of pain tob/l gluteal and thighs Weakness in strength in LE and + SLR on right Neuro: CN II-XII intact b/l Skin: warm, dry, intact, No rashes or lesions on exposed skin. Impaired gait with antalgic ASSESSMENT/PLAN: 1. Lumbosacral radiculopathy at L5 - ICD9: 724.4, ICD10: M54.17 (primary diagnosis) Sciatica - Ice for localized tenderness - PT consult - Patient given instructions use of medications as ordered, intermittent rest, back care exercise program, improved posture, and proper lifting techniques Reduced hours for 2-4 weeks at work with restrictions with amount of lifting and weight lifted, no pushing patient beds, restrict hours to 6-8 hour shifts. - CONSULT TO PAIN MGT Paperwork completed for her for work 2. DDD (degenerative disc disease), lumbar - ICD9: 722.52, ICD10: M51.36 Sciatica - Ice for localized tenderness - PT consult - Patient given instructions use of medications as ordered, intermittent rest, back care exercise program, improved posture, and proper lifting techniques Reduced hours for 2-4 weeks at work with restrictions with amount of lifting and weight lifted, no pushing patient beds, restrict hours to 6-8 hour shifts. - CONSULT TO PAIN MGT 3. Osteoarthritis of spine with radiculopathy, lumbar region - ICD9: 721.3, ICD10: M47.26 Sciatica - Ice for localized tenderness - PT consult - Patient given instructions use of medications as ordered, intermittent rest, back care exercise program, improved posture, and proper lifting techniques Reduced hours for 2-4 weeks at work with restrictions with amount of lifting and weight lifted, no pushing patient beds, restrict hours to 6-8 hour shifts. - CONSULT TO PAIN MGT To Longoria DO Return if no improvement. Follow up with To Longoria DO. To ER if develops chest pain, shortness of breath. Discussed risks, benefits, alternatives, and potential side effects of medications. Patient/Guardian expressed understanding and agreed with the plan. See patient instructions. To Longoria DO [address] [place] [address] documented in this encounterSt. [facility]07[facility] Telephone encounter Note * Telephone Encounter - Adeline Conrad LPN - 05/27/2024 12:52 PM EDT Pt calls back in regards to previous TE about medication for Covid. Pt reports [facility] pharmacy does not have molnupiravir. Pt is going to try Paxlovid and take a lower dose of Vybrid and see how that works. Adeline Conrad LPN [facility]24 Miscellaneous Notes* Telephone Encounter - Adeline Conrad LPN - 05/27/2024 12:52 PM EDT Pt calls back in regards to previous TE about medication for Covid. Pt reports [facility] pharmacy does not have molnupiravir. Pt is going to try Paxlovid and take a lower dose of Vybrid and see how that works. Adeline Conrad LPN documented in this encounterSt. [facility] Hospital07-08-2024 Telephone encounter Note * Telephone Encounter - Kat Santos RN - 05/27/2024 10:30 AM EDT She is requesting the alternative. I pended what she is requesting for [facility]. The order already under medications was cancelled at [facility]. Kat Santos RN [facility] Miscellaneous Notes* Telephone Encounter - Kat Santos RN - 05/27/2024 10:30 AM EDT She is requesting the alternative. I pended what she is requesting for [facility]. The order already under medications was cancelled at [facility]. Kat Santos RN * Telephone Encounter - Eh Zacarias MD - 05/27/2024 9:56 AM EDT Again, that is not a drug I am comfortable prescribing. We can consider not using paxlovid if that is the issue. We could plug in the alternative antiviral if she wants that has less interactions and see if it interacts. * Telephone Encounter - Kat Santos RN - 05/27/2024 9:38 AM EDT She sent a [facility] message and has called the office several times and they don't answer. I attempted to contact the office and the line just rings. Not answered and not able to leave a message after several attempts. I contacted her back and she asked if you would please send the other medication (Lagevrio) to [facility] since there is no interaction with the psych med. Kat Santos RN * Telephone Encounter - Eh Zacarias MD - 05/27/2024 9:28 AM EDT That is a drug that would need to come from psych. Is there a reason she cannot contact them? * Telephone Encounter - Kat Santos RN - 05/27/2024 9:21 AM EDT Patient calls because she is not able to get in touch with Dr. Benz's office (psych prescribes Vybrid). Patient seen yesterday [facility] for Covid and prescribed Paxlovid. Paxlovid interacts with Vybrid so was instructed to contact Dr. Benz to verify if it was ok to decrease Vybrid to 20 mg for 5 days while on Paxlovid. If not patient asking to switch to Lagevrio that doesn't interact with Vybrid. Pharmacy is [facility]. 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 Please review and advise, Kat Santos RN documented in this encounterSt. [facility] Hospital07-08-2024 Telephone encounter Note * Telephone Encounter - Eh Zacarias MD - 05/27/2024 9:56 AM EDT Again, that is not a drug I am comfortable prescribing. We can consider not using paxlovid if that is the issue. We could plug in the alternative antiviral if she wants that has less interactions and see if it interacts. [facility] Telephone encounter Note* Telephone Encounter - Kat Santos RN - 05/27/2024 9:38 AM EDT She sent a MC message and has called the office several times and they don't answer. I attempted to contact the office and the line just rings. Not answered and not able to leave a message after several attempts. I contacted her back and she asked if you would please send the other medication (Lagevrio) to [facility] since there is no interaction with the psych med. Kat Santos RN [facility] Telephone encounter Note* Telephone Encounter - Eh Zacarias MD - 05/27/2024 9:28 AM EDT That is a drug that would need to come from psych. Is there a reason she cannot contact them? [facility] Telephone encounter Note* Telephone Encounter - Kat Santos RN - 05/27/2024 9:22 AM EDT TE sent to Dr. Zacarias to request review per patient. Patient unable to get in touch with Dr. Benz's office. Kat Santos RN [facility] Miscellaneous Notes* Telephone Encounter - Kat Santos RN - 05/27/2024 9:22 AM EDT TE sent to Dr. Zacarias to request review per patient. Patient unable to get in touch with Dr. Benz's office. Kat Santos RN documented in this encounterSt. [facility] Hospital07-[facility]-2024 Telephone encounter Note * Telephone Encounter - Kat Santos RN - 05/27/2024 9:21 AM EDT Patient calls because she is not able to get in touch with Dr. Benz's office (psych prescribes Vybrid). Patient seen yesterday [facility] for Cov[facility] and prescribed Paxlovid. Paxlovid interacts with Vybrid so was instructed to contact Dr. Benz to verify if it was ok to decrease Vybrid to 20 mg for 5 days while on Paxlovid. If not patient asking to switch to Lagevrio that doesn't interact with Vybrid. Pharmacy is [facility]. 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 Please review and advise, Kat Santos RN [facility]-07-[facility] Instructions* Patient Instructions* Maureen Zhu APRN.PALS NURSE - 05/26/2024 12:45 PM EDT How to Manage Common Symptoms Associated with COVID for Adults Fever- Fever is a temperature over 100.4 F and can occur when the body is fighting an infection. Tohelp treat a fever: Drink plenty of fluids [...] your chest such as Vicks, which can helpreduce cough. Try cough drops. Avoid smoking and other strong odors or perfumes. Try breathing exercises to keep your lungs open and clear. Take a big deep breath through your noseand hold for 5 seconds before slowly releasing. [...] of water every 10-15 minutes and increase astolerated. You can try sucking an ice cube [...] that are severe or concerning to you. Fact Sheet for Patients And Caregivers Emergency Use Authorization (EUA) Of LAGEVRIO (molnupiravir) capsules For Coronavirus Disease 2019 (COVID-19) What is the most important information I should know about LAGEVRIO? LAGEVRIO may cause serious side effects, including: LAGEVRIO may cause harm to your unborn baby. It is not known if LAGEVRIO will harm your baby if youtake LAGEVRIO during . LAGEVRIO is not recommended for use in . LAGEVRIO has not been studied in . LAGEVRIO was studied in animals only. When LAGEVRIO was given to animals, LAGEVRIO caused harm to their unborn babies. You and your healthcare provider may decide that you should take LAGEVRIO during if thereare no other COVID-19 treatment options approved or authorized by the FDA that are accessible or clinically appropriate for you. If you and your healthcare provider decide that you should take LAGEVRIO during , you and your healthcare provider should discuss the known and potential benefits and the potential risks of taking LAGEVRIO during . For individuals who are able to become : You should use a reliable method of control (contraception) consistently and correctly duringtreatment with LAGEVRIO and for 4 days after the last dose of LAGEVRIO. Talk to your healthcare provider about reliable control methods. Before starting treatment with LAGEVRIO your healthcare provider may do a test to see if you are before starting treatment with LAGEVRIO. Tell your healthcare provider right away if you become or think you may be duringtreatment with LAGEVRIO. Registry: There is a registry for individuals who take LAGEVRIO during . The purpose of this program is to collect information about the health of you and your baby. If you are or become during treatment with LAGEVRIO, you are encouraged to reportyour use of LAGEVRIO during to this registry at [email or web address]://[email or web address] or . For individuals who are sexually active with partners who are able to become : It is not known if LAGEVRIO can affect sperm. While the risk is regarded as low, animal studies to fully assess the potential for LAGEVRIO to affect the babies of males treated with LAGEVRIO have notbeen completed. A reliable method of control (contraception) should be used consistently and correctly during treatment with LAGEVRIO and for at least 3 months after the last dose. The risk to sperm beyond 3 months is not known. Studies to understand the risk to sperm beyond 3 months are ongoing. Talk to your healthcare provider about reliable control methods. Talk to your healthcare provider if you have questions or concerns about how LAGEVRIO may affect sperm. You are being given this fact sheet because your healthcare provider believes it is necessary to provide you with LAGEVRIO for the treatment of adults with a current diagnosis of mild-tomoderate coronavirus disease 2019 (COVID-19) who are at high risk for progression to severe COVID-19, including hospitalization or , and for whom other COVID-19 treatment options approved or authorized by theFDA are not accessible or clinically appropriate. The [place]. Food and Drug Administration (FDA) has issued an Emergency Use Authorization (EUA) to makeLAGEVRIO available during the COVID-19 pandemic (for more details about an EUA please see What is an Emergency Use Authorization? at the end of this document). LAGEVRIO is not an FDA-approved medicine in the [place]. Read this Fact Sheet for information about LAGEVRIO. Talk to your healthcareprovider about your options if you have any questions. It is your choice to take LAGEVRIO. What is COVID-19? COVID-19 is caused by a virus called a coronavirus. You can get COVID-19 through close contact withanother person who has the virus. COVID-19 illnesses have ranged from very ugoh-iq-gphfjs, including illness resulting in . While information so far suggests that most COVID-19 illness is mild, serious illness can happen and maycause some of your other medical conditions to become worse. Older people and people of all ages with severe, long lasting (chronic) medical conditions like heart disease, lung disease and diabetes, for example seem to be at higher risk of being hospitalized for COVID-19. What is LAGEVRIO? LAGEVRIO is an investigational medicine used to treat adults with a current diagnosis of mild to moderate COVID-19: who are at high risk for progression to severe COVID-19 including hospitalization or , and for whom other COVID-19 treatment options approved or authorized by the FDA are not accessible or clinically appropriate. The FDA has authorized the emergency use of LAGEVRIO for the treatment of mild- tomoderate COVID-19 in adults under an EUA. For more information on EUA, see the What is an Emergency Use Authorization (EUA)? section at the end of this Fact Sheet. LAGEVRIO is not authorized: for use in people less than 18 years of age. for prevention of COVID-19. for people needing hospitalization for COVID-19. for use for longer than 5 consecutive days. What should I tell my healthcare provider before I take LAGEVRIO? Tell your healthcare provider if you: have any allergies are or plan to breastfeed have any serious illnesses Take any medicines including prescription, yjhv-etm-jcwzqxr medicines, vitamins, and herbal products. How do I take LAGEVRIO? Take LAGEVRIO exactly as your healthcare provider tells you to take it. Take 4 capsules of LAGEVRIO every 12 hours (for example, at 8 am and at 8 pm) Take LAGEVRIO for 5 days. It is important that you complete the full 5 days of treatment with LAGEVRIO. Do not stop taking LAGEVRIO before you complete the full 5 days of treatment, even if you feel better. Take LAGEVRIO with or without food. You should stay in isolation for as long as your healthcare provider tells you to. Talk to your healthcare provider if you are not sure about how to properly isolate while you have COVID-19. Swallow LAGEVRIO capsules whole. Do not open, break, or crush the capsules. If you cannot swallow capsules whole, tell your healthcare provider. If your healthcare provider prescribes LAGEVRIO and tells you to take or give a dose through a nasogastric (NG) or orogastric (OG) tube, follow the instructions below: How to take or give a dose of LAGEVRIO through a nasogastric (NG) or orogastric (OG) feeding tube. You must have an NG or OG that is size 12 [place] (FR) or larger. If you miss a dose of LAGEVRIO: If it has been less than 10 hours since the missed dose, take it as soon as you remember. If it has been more than 10 hours since the missed dose, skip the missed dose and take your dose atthe next scheduled time. Do not double the dose of LAGEVRIO to make up for a missed dose. How to take or give a dose of LAGEVRIO through a nasogastric (NG) or orogastric (OG) feeding tube: Wash your hands well with soap and water. Gather the supplies you will need to take or give the prescribed dose of LAGEVRIO. 4 LAGEVRIO capsules 1 liquid measuring cup with mL markings to measure 40 mL of room temperature water 1 clean container with a lid 1 catheter tip syringe. Your healthcare provider should tell you what size catheter tip syringe youwill need to take or give a dose of LAGEVRIO. Place the needed supplies on a clean work surface. Follow your healthcare provider s instructions on how to flush the NG or OG feeding tube. Flush theNG or OG feeding tube with 5 mL of water before taking or giving a dose of LAGEVRIO. Carefully open 4 LAGEVRIO capsules, one at a time, and empty the contents into a clean container. Use the liquid measuring cup to measure 40 mL of room temperature water and add to the container containing the capsule contents. Place the lid on the container. Shake to mix the capsule contents and water well for 3 minutes. Thecapsule contents may not dissolve completely. Remove the lid from the container and draw up all the LAGEVRIO and water mixture into a catheter tip syringe. Give all of the mixture right away through the NG or OG feeding tube. Do not keep the mixture for future use. If any capsule contents are left in the container: Add 10 mL of water to the container, and mix to loosen any capsule contents that are left in the container. Use the catheter tip syringe to draw up all of the mixture in the container. Give the mixture through the NG or OG feeding tube. Repeat this process as needed until you no longer see any capsule contents left in the container orcatheter tip syringe. Use the same catheter tip syringe to flush the NG or OG feeding tube 2 times with 5 mL of water (10mL total). Rinse the container, lid and catheter tip syringe well with clean water after use. Place on a cleanpaper towel until next use. What are the important possible side effects of LAGEVRIO? See, What is the most important information I should know about LAGEVRIO? Allergic Reactions. Allergic reactions can happen in people taking LAGEVRIO, even after only 1 dose. Stop taking LAGEVRIO and call your healthcare provider right away if you get any of the following symptoms of an allergic reaction: hives rapid heartbeat trouble swallowing or breathing swelling of the mouth, lips, or face throat tightness hoarseness skin rash The most common side effects of LAGEVRIO are: diarrhea nausea dizziness These are not all the possible side effects of LAGEVRIO. Not many people have taken LAGEVRIO. Serious and unexpected side effects may happen. This medicine is still being studied, so it is possible that all of the risks are not known at this time. What other treatment choices are there? Veklury (remdesivir) is FDA-approved as an intravenous (IV) infusion for the treatment of mildto-moderate COVID-19 in certain adults and children. Talk with your doctor to see if Veklury is appropriate for you. Like LAGEVRIO, FDA may also allow for the emergency use of other medicines to treat people with COVID-19. Go to https://www.fda.gov/gcylofalv-otdxybxrpndp-iuf-response/kao-zqworrlhxqlwfcg-kbg- policy-framework/locurzxmz-tlc-elqnngfvqzbcw for more information. It is your choice to be treated or not to be treated with LAGEVRIO. Should you decide not to take it, it will not change your standard medical care. What if I am ? is not recommended during treatment with LAGEVRIO and for 4 days after the last dose of LAGEVRIO. If you are or plan to breastfeed, talk to your healthcare provider about your options and specific situation before taking LAGEVRIO. How do I report side effects with LAGEVRIO? Contact your healthcare provider if you have any side effects that bother you or do not go away. Report side effects to FDA MedWatch at www.fda.gov/medwatch or call 8-121-YAG-7556 ([phone]). How should I store LAGEVRIO? Store LAGEVRIO capsules at room temperature between 68 F to 77 F (20 C to 25 C). Keep LAGEVRIO and all medicines out of the reach of children. How can I learn more about COVID-19? Ask your healthcare provider. Visit www.cdc.gov/COVID19 Contact your local or state public health department. Call [employer] at (toll free in the [place] Visit www.Vozeeme What Is an Emergency Use Authorization (EUA)? The [place] FDA has made LAGEVRIO available under an emergency access mechanism called an Emergency Use Authorization (EUA) The EUA is supported by a [place] of Health and Human Service (HHS)declaration that circumstances exist to justify emergency use of drugs and biological products during the COVID-19 pandemic. LAGEVRIO for the treatment of adults with a current diagnosis of mubb-ao-vssusvna COVID-19 who are at high risk for progression to severe COVID- 19, including hospitalization or , and for whom alternative COVID-19 treatment options approved or authorized by FDA are not accessible or clinically appropriate, has not undergone the same type of review as an FDAapproved product. In issuing an EUA under the COVID-19 public health emergency, the FDA has determined, among other things, that based on the total amount of scientific evidence available including data from adequate and well-controlledclinical trials, if available, it is reasonable to believe that the product may be effective for diagnosing, treating, or preventing COVID-19, or a serious or life-threatening disease or condition caused by COVID-19; that the known and potential benefits of the product, when used to diagnose, treat, or prevent such disease or condition, outweigh the known and potential risks of such product; and that there are no adequate, approved, and available alternatives. All of these criteria must be met to allow for the product to be used in the treatment of patients during the COVID-19 pandemic. The EUA for LAGEVRIO is in effect for the duration of the COVID-19 declaration justifying emergency use of LAGEVRIO, unless terminated or revoked (after which LAGEVRIO may no longer be used under the EUA). Ema. for: [employer] [address] For patent information: www.Brainscape/research/patent Copyright [employer] [place], [place], [place] and its affiliates. All rights reserved. [id number] Revised: December 2022 [facility] History of Present illness Narrative* Maureen Zhu APRN.DAISY - 05/26/2024 12:28 PM EDT Telemedicine Evaluation for COVID-19 Infection MyChart Zoom Video Visit was used for evaluation of this patient. I have communicated my name and active licensure. The patient's identity and physical location wereverified at the time of this visit. Either the patient or their legal outside sales account representative has been informed of the risks and benefits of -- and alternatives to -- treatment through a remote evaluation andconsents to proceed with the evaluation remotely. SUBJECTIVE Brice Gomez is a 43 year old female who presents with 1 day of symptoms that are stable. Symptoms include: Fever (?100.4F): Yes or Chills: Yes Cough: Yes Shortness of breath: No or Difficulty breathing: No Fatigue: Yes Muscle aches: No Headache: Yes New loss of smell or taste: No Sore throat: Yes Nasal congestion: Yes or Rhinorrhea: Yes Nausea: No or Vomiting: No Diarrhea: No COVID POSITIVE VIA HOME TEST ON 05/26/24 Reports severe COVID in 2019. Hospitalized for 13 days with double pneumonia and myocarditis. OTC meds/remedies that patient has tried: OTC cold medicine High risk category assessment Chronic lung disease Exposures: Sick contacts? No Family or close contacts with confirmed/probable COVID-19 in last 14 days? No She reports that she has never smoked. She has never used smokeless tobacco. OBJECTIVE VIDEO EXAM (if available) GENERAL: well appearing, alert, in no acute distress HEENT: no conjunctival injection, pupils equal, moist mucous membranes, oropharynx clear without erythema, sinuses tender to self-palpation, and palpable cervical adenopathy PULMONARY: breathing comfortably on room air , no coughing noted, and no wheezing noted ASSESSMENT/PLAN (U07.1) Positive self-administered antigen test for COVID-19 (primary encounter diagnosis) Discussed etiology and rationale for treatment. Given hx of severe COVID in 2020, would benefit from oral antiviral. eGFR >60 from 05/15/24. After further review, high interaction noted with Viibryd. Advised patient I am unable to change dosage of medication. Per UTD, recommended to take no more than 20 mg Viibryd with Paxlovid. Patient currently taking 40 mg Viibryd daily. Could reach out to prescriber to see if adjustment can be done. Patient would like to try alternative at this time, Molnupiravir instead and if any issues receiving medication, will message me and send over for Paxlovid instead and then reach out to provider regarding Viibryd. Patient has been advised of possible side effects from Molnupiravir. If any concerns of allergic reaction are occurring, please contact your primary care provider's office or please go to the nearest ED. If you miss a dose: Take within 10 hours of usual administration time as soon as possible. If longer than 10 hours, dosing should resume at the next scheduled time. You need to complete the full 5 days of therapy. Discussed home isolation, supportive care, and when to seek prompt follow up. Molnupiravir Eligibility and Patient Discussion [facility] Formulary Restriction Criteria: Adult outpatients 18 years and older with ALL of the following: [x] Patient has symptoms for 5 days or less [x] Not requiring hospitalization at any time for management of COVID-19 [x] Not requiring supplemental oxygen or a change in baseline supplemental oxygen [x] Not utilized for pre-exposure or post-exposure prophylaxis for prevention of COVID-19 [] Patient is not or lactating [] Meeting at least one of the criteria for high risk of progression to severe COVID-19: [] Age over 65 years [] Cancer [] Chronic kidney disease [] Chronic liver disease [x] Chronic lung diseases, including cystic fibrosis [] Dementia or other neurological conditions [] Diabetes (type 1 or type 2) [] Disabilities, including Down syndrome and neurodevelopmental disorders [x] Heart conditions [] HIV infection [] Immunocompromised state [x] Mental health conditions [] Medical related technological dependence (tracheostomy, gastrostomy, or positive pressure ventilation (not related to COVID) [] Overweight and obesity (BMI greater or equal to 25 for adults) [] Physical inactivity [] Sickle cell disease or thalassemia [] Smoking, current or former [] Solid organ or blood stem cell transplant [] Stroke or cerebrovascular disease [] Substance use disorders [] Tuberculosis [] People from racial and ethnic minority groups Criteria above are met: Yes Date of Symptom Onset: 05/25/24 Patient received COVID vaccine: Yes / status reviewed: Females: [x] Patient is not currently and there is no possibility the patient could be (select one of the following): [x] test does not need to be confirmed in patients who have undergone permanent sterilization, are currently using an intrauterine system or contraceptive implant, or in whom is not possible. [] Patients not meeting conditions above: assess whether the patient is based on the firstday of the last menstrual period in individuals who have regular menstrual cycles, is using reliable method of contraception correctly and consistently or have had a negative test [] A test is recommended if the individual has irregular menstrual cycles, is unsure of the first day of the last menstrual period or is not using effective contraception correctly and consistently [x] Patient is not currently . is not recommended during treatment and for four days after final dose of molnupiravir. I have discussed the use of the investigational therapeutic, molnupiravir, for the treatment of mild to moderate COVID-19 and its use under Emergency Use Authorization with the patient. The patient was informed that molnupiravir is not an FDA approved drug and that it is authorized for use under this Emergency Use Authorization. The patient was also informed of the significant knownbenefits and potential risks of molnupiravir, and the extent to which such potential risks and benefits are unknown. The patient was informed that there is mandatory reporting of all medication errors and serious adverse events potentially related to molnupiravir treatment within 7 calendar days from the onset of the event and that events up to 28 days after completion of therapy need to be reported. The discussion included alternatives to receiving molnupiravir, including clinical trials, and potential the risks and benefits of those alternatives. The patient was provided electronically withthe Fact Sheet for Patients, Parents and Caregivers. The patient was also instructed that in addition to the treatment with molnupiravir, he/she should continue to self-isolate and use infection control measures (e.g., wear mask, isolate, social distance, avoid sharing personal items, clean and disinfect high touch surfaces, and frequent handwashing) according to CDC guidelines. The patient stated understanding and gave verbal consent to proceeding with molnupiravir treatment. Maureen Zhu APRN.DAISY May 26, 2024 12:49 PM documented in this encounterSt. [facility] Telephone encounter Note * Telephone Encounter - Soumya Ureña MA - 05/22/2024 6:06 PM EDT Pt informed. Pt has been doing PT for 3 weeks now. Has follow up appt with J on 06/03. Soumya Ureña MA [facility] Miscellaneous Notes* Telephone Encounter - Soumya Ureña MA - 05/22/2024 6:06 PM EDT Pt informed. Pt has been doing PT for 3 weeks now. Has follow up appt with J on 06/03. Soumya Ureña MA * Telephone Encounter - Mandi Connelly APRN.CNP - 05/22/2024 5:55 PM EDT Please let her know that her MRI shows some mild to moderate disc bulging and narrowing. Dr. Longoria is out for a couple weeks, but what I can read from her note she would like her to do physical therapy and has ordered this for her. Please let me know if patient feels Dr. Longoria has relayed anything else to her that I'm not aware of. Mandi Connelly APRN.DAISY * Telephone Encounter - Soumya Ureña MA - 05/17/2024 11:32 AM EDT Please see pt MRI results -- Scan on 05/17/2024 11:16 AM by Provider, External, PA-C: MRI Soumya Ureña MA documented in this encounterSt[facility] Telephone encounter Note * Telephone Encounter - Mandi Connelly APRN.CNP - 05/22/2024 5:55 PM EDT Please let her know that her MRI shows some mild to moderate disc bulging and narrowing. Dr. Longoria is out for a couple weeks, but what I can read from her note she would like her to do physical therapy and has ordered this for her. Please let me know if patient feels Dr. Longoria has relayed anything else to her that I'm not aware of. Mandi Connelly APRN.CNP [facility] Work Phone: [phone]) 720-100006-28-2024 Telephone encounter Note* Telephone Encounter - Soumya Ureña MA - 05/17/2024 11:32 AM EDT Please see pt MRI results -- Scan on 05/17/2024 11:16 AM by Provider, External, PA-C: MRI Soumya Ureña MA [facility] Telephone encounter Note* Telephone Encounter - Lanie Cool RN - 05/17/2024 10:27 AM EDT Order faxed to [facility] as requested. Lanie Cool RN [facility] Miscellaneous Notes* Telephone Encounter - Lanie Cool RN - 05/17/2024 10:27 AM EDT Order faxed to [facility] as requested. Lanie Cool RN * Telephone Encounter - Kimber Jorge APRN.CNP - 05/17/2024 8:05 AM EDT Order for pt place. Please fax, to [facility]. Kimber Jorge APRN.CNP * Telephone Encounter - Lanie Cool RN - 05/16/2024 2:49 PM EDT Patient requesting an [facility] referral order be faxed to [facility]. Will send this message to Kimber Jorge CNP for consideration, as she ordered Physical Therapy forpatient earlier this month. No call back needed to patient if able to complete request. Thank you. documented in this encounterSt. [facility]06-28-[facility]24 Telephone encounter Note * Telephone Encounter - Kimber Jorge APRN.CNP - 05/17/2024 8:05 AM EDT Order for pt place. Please fax, to [facility]. Kimber Jorge APRN.CNP [facility] Telephone encounter Note* Telephone Encounter - Lanie Cool RN - 05/16/2024 2:49 PM EDT Patient requesting an [facility] referral order be faxed to [facility]. Will send this message to Kimber Jorge CNP for consideration, as she ordered Physical Therapy forpatient earlier this month. No call back needed to patient if able to complete request. Thank you. [facility] Telephone encounter Note* Telephone Encounter - Valorie Williamson RN - 05/15/2024 12:36 PM EDT called and notified pt that MRI is approved and no authorization needed per Soheila Herrera. Pt will contact [facility] to get MRI set up. [facility] Miscellaneous Notes* Telephone Encounter - Valorie Williamson RN - 05/15/2024 12:36 PM EDT called and notified pt that MRI is approved and no authorization needed per Soheila Herrera. Pt will contact [facility] to get MRI set up. * Telephone Encounter - Valorie Williamson RN - 05/15/2024 10:41 AM EDT Pt called in and was already aware of this appt date and time. Pt is asking about a pre cert for her MRI for [facility]. Pt states she is supposed to have the MRI done before this appt on 06/03. [facility] is booking out until 06/03 per pt and [facility] had a cancellation for tomorrow so pt hoping to get it done there. Pre cert needs done. Message sent to try and get this completed barb and will contact pt back once completed. * Telephone Encounter - To Longoria DO - 05/15/2024 7:39 AM EDT Please put her on my schedule for 06/03/24 at 720 am. Okay to double book with the 740 am patient and she will come in at 720 am For back pain follow up To Longoria DO documented in this encounterSt. [facility]06-[facility] Tele[facility] encounter Note * Telephone Encounter - Valorie Williamson RN - 05/15/2024 10:41 AM EDT Pt called in and was already aware of this appt date and time. Pt is asking about a pre cert for her MRI for [facility]. Pt states she is supposed to have the MRI done before this appt on 06/03. [facility] is booking out until 06/03 per pt and [facility] had a cancellation for tomorrow so pt hoping to get it done there. Pre cert needs done. Message sent to try and get this completed barb and will contact pt back once completed. [facility]06-26-2024 Telephone encounter Note* Telephone Encounter - To Longoria DO - 05/15/2024 7:39 AM EDT Please put her on my schedule for 06/03/24 at 720 am. Okay to double book with the 740 am patient and she will come in at 720 am For back pain follow up To Longoria DO [facility]06-25-2024 History of Present illness Narrative* To Longoria DO - 05/14/2024 1:13 PM EDT CC: Brice Gomez is a 43 year old female who presents to the office to establish care. HPI: Low back pain, acute on chronic. 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 Has intermittent low back pain flare ups but usually able to control with stretches and yoga etc. Recently pain started around 04/29 or 04/30 and was severe low back, radiating to b/l thighs with a burning/tingling sensation as well as radiating from low back midline to b/l gluteal and sacral area. She was struggling to lay down, couldn't lay on her back or stomach when she was trying to go to sleep at night. No bowel or bladder incontinence. The xrays show the L5 pars defect as well as other changes on the spine. She has been to the chiropractor for 3 visits without relief. She has been to Saundra Cesar at [facility] for PHYSICAL THERAPY and aqua therapy with minimal relief. She has taken NSAIDs and tylenol and low dose of prednisone without relief of symptoms Mood, stable, taking medications as prescribed. Migraine headaches, stable She has been off work since 05/07 due to the severity of the back pain. 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 PAST MEDICAL HISTORY Diagnosis Date Abnormal uterine [...] airway disease Severe pre-eclampsia, condition or complication Driver general hospitalization Stone, kidney x2 Vitamin D [...] D&C and ablation Dr. Raoul Rushing HERNIA PATCH,VENTRALEX,[id number] abdomen STEROTACTIC GUIDE BREAST BX 10/01/2012 u/s guidance of left breast VAGINAL HYSTERECTOMY right Ovary remains Social History: Social History Tobacco Use Smoking status: Never Smokeless tobacco: Never Tobacco comments: Step father smoked in childhood. Spouse ex-smoker last 13 years. Vaping Use Vaping Use: Never used Substance Use Topics Alcohol use: Yes Comment: Rarely Drug use: No FAMILY HISTORY Problem Relation Age of Onset [...] No Family History Asthma No Family History Current Outpatient prescriptions: predniSONE (DELTASONE) 20 mg tablet Take 2 tablets by mouth once daily. cyclobenzaprine (FLEXERIL) 10 mg tablet Take 1 tablet by mouth three times a day as needed for muscle spasm. buPROPion XL (WELLBUTRIN XL) 300 mg 24 hr tablet Take 1 tablet by mouth once daily. clonazePAM (KLONOPIN) 0.5 mg tablet Take 1 tablet by mouth at bedtime as needed for up to 30 days. vilazodone (VIIBRYD) 40 mg tablet Take 1 tablet by mouth once daily. albuterol HFA (PROAIR HFA) 90 mcg/actuation inhaler Inhale 2 Puffs as instructed every 4 hours as needed. scopolamine (TRANSDERM-SCOP) patch 1.5 mg/72 hr (delivers 1 mg over 3 days) Apply 1 Patch as directed every 72 hours. Apply patch to skin behind ear 4hrs prior to travel. azaTHIOprine (IMURAN) 100 mg tablet Take 100 mg by mouth once daily. esomeprazole (NEXIUM) 40 mg capsule Take 1 capsule by mouth twice daily before meals. 1/2 hr beforemeal. Cholecalciferol, Vitamin D3, 25 mcg (1,000 unit) cap Take 25 mcg by mouth once daily. mometasone (NASONEX) 50 mcg/actuation nasal spray Use 2 Sprays in the nose twice daily. Fluticasone Furoate (FLONASE SENSIMIST) 27.5 mcg/actuation nasal spray Use 2 Sprays in each nostrilonce daily. EPINEPHrine (EPIPEN) 0.3 mg/0.3 mL auto-injector Inject 0.3 mL subcutaneously as needed. Then seek medical attention immediately. MULTI-VITAMIN ORAL Take by mouth. cetirizine (ZYRTEC) 10 mg tablet Take 10 mg by mouth once daily. Allergies: ALLERGIES Allergen Reactions Clindamycin Unknown Bee Sting [...] [Cephalexin] Rash Minocycline Hives Penicillins Rash, Itching Vishnu Darrick type reaction. ROS: See HPI PE: 05/14/24 1257 BP: 124/80 Pulse: 80 Resp: 16 Temp: 37.2 C (98.9 F) TempSrc: Left Tympanic Weight: 68 kg (150 lb) Height: 152 cm (4' 11.84) Gen: A&O, NAD, non-toxic appearing, Pleasant, cooperative HEENT: NT/AC, PERRLA, EOMs intact b/l, nares clear and patent b/l, pharynx without erythema, exudate or lesions. Uvula midline. MMM, EACs without erythema or debris. TMs pearly cotter with intact landmarks b/l. Neck: supple, No cervical LAD, no thyromegaly, no carotid bruits CV: RRR, normal S1 and S2, no murmurs, no gallops, no rubs, Pulses 2+ and symmetric in UE and LE b/l Lungs: normal respiratory effort, CTA b/l, no wheezing or rhonchi or rales Abd: soft, NT, ND, +BS, no hepatosplenomegaly MS: significant pain in lumbar spine area midline and pain in sacral area with radiation of pain tob/l gluteal and thighs Weakness in strength in LE and + SLR on right Neuro: CN II-XII intact b/l Skin: warm, dry, intact, No rashes or lesions on exposed skin. Impaired gait with antalgic ASSESSMENT/PLAN: 1. Acute bilateral low back pain with bilateral sciatica - ICD9: 724.2, 724.3, ICD10: M54.42, M54.41 (primary diagnosis) Sciatica - Ice for localized tenderness - Warm moist heat for 20 min three times a day - Prednisone burst- see orders - NSAIDS- see orders - Muscle relaxant- see orders - PT consult - MRI- see orders - MRI LUMBAR SPINE WO IVCON 2. Radiculopathy of lumbar region - ICD9: 724.4, ICD10: M54.16 See above Continue PHYSICAL THERAPY Need for MRI lumbar as ordered - MRI LUMBAR SPINE WO IVCON 3. Paresthesia of skin - ICD9: 782.0, ICD10: R20.2 See above - MRI LUMBAR SPINE WO IVCON 4. Pars defect of lumbar spine - ICD9: 738.4, ICD10: M43.06 See above - MRI LUMBAR SPINE WO IVCON 5. Well adult exam - ICD9: V70.0, ICD10: Z00.00 - Counseled on healthy diet and regular exercise - HEMOGLOBIN A1C - LIPID PANEL BASIC - COMPREHENSIVE METABOLIC PANEL - COMPLETE BLOOD COUNT AND DIFFERENTIAL - THYROID STIMULATING HORMONE - T4 FREE/FREE THYROXINE - VITAMIN D 25 HYDROXY - VITAMIN B12 - C-REACTIVE PROTEIN To Longoria DO To ER if develops chest pain, shortness of breath, or severe worsening of symptoms. Discussed risks, benefits, alternatives, and potential side effects of medications. Patient expressed understanding and agreed with the plan. To Longoria DO [address] [place] [address] documented in this encounterSt. [facility]06[facility] Miscellaneous Notes* Telephone Encounter - Griselda Wong OCCA - 05/14/2024 11:17 AM EDT TC to patient who states she has appointment with PCP today and will discuss then. NIK Cheung * Telephone Encounter - To Longoria DO - 05/13/2024 5:20 PM EDT This would need to be determined by Kimber since I didn't see her recently in the office. Otherwise will need to wait unti I can assess her To Longoria DO * Telephone Encounter - Jessica Mcdowell LPN - 05/13/2024 8:16 AM EDT Pt calls states was seen by Kimber for her back has done aqua therapy and pt is at half way point no improvement at all. Is on fmla asking if maybe should get mri or something of back. Does not wantto go back to make it worse lifting. Has appointment with you the . Hoping to get prior to appointment so you can view. documented in this encounterSt. [facility]06[facility] Telephone encounter Note * Telephone Encounter - Griselda Wong OCCA - 05/14/2024 11:17 AM EDT TC to patient who states she has appointment with PCP today and will discuss then. NIK Cheung [facility]06-24-2024 Telephone encounter Note* Telephone Encounter - To Longoria DO - 05/13/2024 5:20 PM EDT This would need to be determined by Kimber since I didn't see her recently in the office. Otherwise will need to wait unti I can assess her To Longoria DO [facility]06-24-2024 Telephone encounter Note* Telephone Encounter - Jessica Mcdowell LPN - 05/13/2024 8:16 AM EDT Pt calls states was seen by Kimber for her back has done aqua therapy and pt is at half way point no improvement at all. Is on fmla asking if maybe should get mri or something of back. Does not wantto go back to make it worse lifting. Has appointment with you the . Hoping to get prior to appointment so you can view. [facility]06-19-2024 Telephone encounter Note* Telephone Encounter - Brice Gonzalez LPN - 05/08/2024 11:14 AM EDT Pt notified of results/provider response. She verbalized understanding. Form faxed. Copy of form sent for scanning. Original form placed in mail to pt. Brice Gonzalez LPN [facility]06-19-2024 Miscellaneous Notes* Telephone Encounter - Brice Gonzalez LPN - 05/08/2024 11:14 AM EDT Pt notified of results/provider response. She verbalized understanding. Form faxed. Copy of form sent for scanning. Original form placed in mail to pt. Brice Gonzalez LPN * Telephone Encounter - Kimber Jorge APRN.PALS NURSE - 05/08/2024 9:54 AM EDT Can please let patient know that I received her xray results. Her back shows the anterolisthesis of L5 on S1 (which is some slippage of the vertebra.) She has the pars defects at L5 (whish are like stress fractures).There was some degenerative changes with the facets. No acute fractures. Please continue with PT and let us know if she is not improving. I finished her FMLA forms. Does she want us to fax them in? Does she want us to mail her the originals or pick-up? Can we please sent a copy to scanning. documented in this encounterSt. [facility] Hospital06-19-2024 Telephone encounter Note * Telephone Encounter - Kimber Jorge APRN.CNP - 05/08/2024 9:54 AM EDT Can please let patient know that I received her xray results. Her back shows the anterolisthesis of L5 on S1 (which is some slippage of the vertebra.) She has the pars defects at L5 (whish are like stress fractures).There was some degenerative changes with the facets. No acute fractures. Please continue with PT and let us know if she is not improving. I finished her FMLA forms. Does she want us to fax them in? Does she want us to mail her the originals or pick-up? Can we please sent a copy to scanning. [facility]06-17-2024 Instructions* Patient Instructions* Kimber Jorge APRN.CNP - 05/06/2024 10:39 AM EDT Start the prednisone. Flexeril as needed (can cause drowsiness). Get xray. Schedule w/ physical therapy. Let us know if no better/worsening. documented in this encounterSt. Elizabeth Hospital06-17-2024 History of Present illness Narrative* Kimber Jorge APRN.CNP - 05/06/2024 10:17 AM EDT This is a 43 year old female who presents today with: Patient presents with: Back Pain: 6 days; no injury; going to chiropractor HISTORY OF PRESENT ILLNESS: Brice Gomez is a 43 year old female. Patient presents with: Back Pain: 6 days; no injury; going to chiropractor Pt presents today with complaint of back pain. Started about 6 days ago. No known injury. Hx of sciatic. Had a couple visits with chiropractor. Ice,ibuprofen, and lidocaine patch. No n/t. No saddle anesthesia. No loss of bowel/bladder. PAST MEDICAL HISTORY: PAST MEDICAL HISTORY Diagnosis [...] airway disease Severe pre-eclampsia, condition or complication Driver general hospitalization Stone, kidney x2 Vitamin D [...] D&C and ablation Dr. Silveira S HERNIA PATCH,VENTRALEX,[id number] abdomen STEROTACTIC GUIDE BREAST BX 10/01/2012 u/s guidance of left breast VAGINAL HYSTERECTOMY right Ovary remains ALLERGIES Clindamycin, Bee Sting, Biaxin [Clarithromycin], Celexa [Citalopram], Entex [Phenylephrine-Guaifenesin], Flagyl [Metronidazole Hcl], Keflex [Cephalexin], Minocycline, and Penicillins MEDICATIONS Current Outpatient Medications Medication Sig buPROPion XL (WELLBUTRIN XL) 300 mg 24 hr tablet Take 1 tablet by mouth once daily. clonazePAM (KLONOPIN) 0.5 mg tablet Take 1 tablet by mouth at bedtime as needed for up to 30 days. vilazodone (VIIBRYD) 40 mg tablet Take 1 tablet by mouth once daily. albuterol HFA (PROAIR HFA) 90 mcg/actuation inhaler Inhale 2 Puffs as instructed every 4 hours as needed. scopolamine (TRANSDERM-SCOP) patch 1.5 mg/72 hr (delivers 1 mg over 3 days) Apply 1 Patch as directed every 72 hours. Apply patch to skin behind ear 4hrs prior to travel. azaTHIOprine (IMURAN) 100 mg tablet Take 100 mg by mouth once daily. esomeprazole (NEXIUM) 40 mg capsule Take 1 capsule by mouth twice daily before meals. 1/2 hr beforemeal. Cholecalciferol, Vitamin D3, 25 mcg (1,000 unit) cap Take 25 mcg by mouth once daily. mometasone (NASONEX) 50 mcg/actuation nasal spray Use 2 Sprays in the nose twice daily. Fluticasone Furoate (FLONASE SENSIMIST) 27.5 mcg/actuation nasal spray Use 2 Sprays in each nostrilonce daily. EPINEPHrine (EPIPEN) 0.3 mg/0.3 mL auto-injector Inject 0.3 mL subcutaneously as needed. Then seek medical attention immediately. MULTI-VITAMIN ORAL Take by mouth. cetirizine (ZYRTEC) 10 mg tablet Take 10 [...] Comment: Rarely Drug use: No EXAM: BP 118/72 Pulse 90 Resp 16 LMP 08/24/2020 (Exact Date) SpO2 99% PHYSICAL EXAM: General Appearance: Well appearing, alert, in no acute distress, well-hydrated, well nourished.. Skin: Skin color, texture, turgor normal, no suspicious rashes or lesions. Head: Normocephalic, no masses, lesions, tenderness or abnormalities. Eyes: Anicteric sclera. Pupils are equally round and reactive to light. Extraocular movements are intact. . Back:no pain to palpation of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 Myfinal recommendations will be communicated back to the [...] She may have taken 1 course of antibioticsfor sinusitis in the past year. Denies a [...] course of subcutaneous immunotherapy as prescribed by [facility] in 2013. Denies systemic reactions to [...] 08, 2014. 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 REVIEW OF SYSTEMS: SINUSITIS: See [place] ASTHMA: The patient has no history of asthma. ECZEMA: The patient has no history of eczema. URTICARIA:The patient does not have a history of urticaria and/or angioedema. GERD: See [place] INSECT STING: The patient does not have [...] unspecified Allergic rhinitis. [facility]. Depression Fibrosclerosis of breast H. 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 mometasone (NASONEX) 50 mcg/actuation nasal spray Use 2 Sprays in the nose twice daily. Fluticasone Furoate (FLONASE SENSIMIST) 27.5 mcg/actuation nasal spray Use 2 Sprays in each nostrilonce daily. buPROPion XL (WELLBUTRIN XL) 300 mg [...] mouth twice daily before meals. 1/2 hr beforemeal. EPINEPHrine (EPIPEN) 0.3 mg/0.3 mL auto-injector Inject [...] D&C and ablation Dr. Raoul Rushing HERNIA PATCH,VENTRALEX,[id number] abdomen STEROTACTIC GUIDE BREAST BX 10/01/2012 u/s guidance of left breast VAGINAL HYSTERECTOMY right Ovary remains FAMILY HISTORY: Allergic rhinitis:yes: mom and son. Asthma: yes: son. Eczema: no. Cystic fibrosis: no. Immunodeficiency: no. 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 She may also use irdz-lbe-flvglnh olopatadine eyedrops as needed. 3.) Reactive airways [...] sooner should new symptoms or problems arise. Estefania Joyce MD documented in this encounterSt. Elizabeth Hospital03-02-2023 Nurse Note* Holli Lantigua RN - 01/19/2023 2:15 PM EST Patient here for consult regarding frequent infections, sinus and ear infections. Recently had tubes inserted in October for inability to hear. Had COVID in February 2020 needing oxygen for 4 months after. Also has seasonal allergy symptoms of nasal congestion and drainage, sneezing and coughing. Zyrtec works well. Suffers year round. Off antihistamines past 5 days. documented in this encounterSt. Elizabeth Hospital02-22-2023 History of Present illness Narrative* To Longoria, DO - 01/11/2023 8:07 PM EST CC: Brice Gomez is a 42 year [...] her cruise she took away with her husbandexcept for 2 panic attacks while on the cruise Currently Diarrhea., loose, non bloody, has been significant and chronic x months, has been seen recently by Gastroenterology Dr. Brock at [facility], has had testing of IBD panel with concerns for + AMCA as well aslow IgE levels. Otherwise normal other labs. Admits [...] airway disease Severe pre-eclampsia, condition or complication Driver general hospitalization Stone, kidney x2 Vitamin D [...] D&C and ablation Dr. Silveira S HERNIA PATCH,VENTRALEX,[id number] abdomen STEROTACTIC GUIDE BREAST BX 10/01/2012 u/s guidance of left breast VAGINAL HYSTERECTOMY right Ovary remains Current Outpatient Medications Medication Sig esomeprazole (NEXIUM) 40 mg capsule Take 1 capsule by mouth twice daily before meals. 1/2 hr beforemeal. EPINEPHrine (EPIPEN) 0.3 mg/0.3 mL auto-injector Inject [...] [Cephalexin] Rash Minocycline Hives Penicillins Rash, Itching Vishnu Darrick type reaction. Pseudoephedrine Other: See Comments [...] nares without drainage, pharynx without erythema, exudate, lesions,or drainage. Uvula midline. Neck: No LAD, no [...] F41.1 - f/u with Psychiatry, improved To Longoria DO Return if no improvement. Follow up with oT Longoria DO. To ER if develops chest pain, shortness of breath Discussed risks, benefits, alternatives, and potential side effects of medications. Patient/Guardian expressed understanding and agreed with the plan. See patient instructions. To Longoria DO [address] [place] [address] documented in this encounterSt. Elizabeth Hospital02-17-2023 Miscellaneous Notes* Telephone Encounter - Gifty Caballero Pss - 01/06/2023 4:56 PM EST Scheduled * Telephone Encounter - Holli Lantigua RN - 01/06/2023 12:08 PM EST Please call patient to schedule with either allergy provider from referral from Dr. Brock. documented in this encounterSt. Elizabeth Hospital01-17-2023 Miscellaneous Notes* Telephone Encounter - Deann Wheeler - 12/06/2022 3:09 PM EST PA denied- Patient notified. * Telephone Encounter - Deann Wheeler - 11/24/2022 4:45 PM EST PA requested for vilazodone (VIIBRYD) 10 mg tablet Submitted with [employer] and under review - Lanza: [id number] Deann Wheeler November 24, 2022 4:46 PM documented in this encounterSt. Elizabeth Hospital01-05-2023 History of Present illness Narrative* Laurel Benz DO - 11/24/2022 10:39 AM EST Images from the original note were not [...] population = 50. Five points is a clinicallymeaningful difference.) 08/09/2022 10/04/2022 10/04/2022 Physical T-Score 47.7 [...] airway disease Severe pre-eclampsia, condition or complication Driver general hospitalization Stone, kidney x2 Vitamin D [...] D&C and ablation Dr. Silveira S HERNIA PATCH,VENTRALEX,[id number] abdomen STEROTACTIC GUIDE BREAST BX 10/01/2012 u/s [...] daily as needed for up to 30 days.30 tablet 0 vilazodone (VIIBRYD) 20 mg tablet [...] mouth twice daily before meals. 1/2 hr beforemeal. 180 capsule 5 EPINEPHrine (EPIPEN) 0.3 mg/0.3 [...] the date of the service which included [id number] patient care, completing clinical documentation, and obtaining and/or reviewing separately obtained history. ADD ON PSYCHOTHERAPY CODE : No SIGNATURE: Laurel Benz DO PATIENT NAME: Brice Gomez DATE: November 24, 2022 TIME: 10:39 AM PAGER: documented in this encounterSt. Elizabeth Hospital01-03-2023 Instructions* Patient Instructions* Kimber Jorge APRN.CNP - 11/22/2022 3:23 PM EST Try the steroids. Let me know what happens w/ ENT appt. documented in this encounterSt. Elizabeth Hospital01-03-2023 History of Present illness Narrative* Kimber Jorge APRN.CNP - 11/22/2022 3:08 PM EST This is a 42 year old female who presents today with: Patient presents with: Recheck: Follow up bilateral ears; L greater than R HISTORY OF PRESENT ILLNESS: Brice Gomez is a 42 year old female. Patient presents with: Recheck: Follow up bilateral ears; L greater than R 12/5 -- started w/ URI. Refers settled in [...] she could have a MRSA infection in herears. She has been using nasonex. Reports tried [...] airway disease Severe pre-eclampsia, condition or complication Driver general hospitalization Stone, kidney x2 Vitamin D [...] D&C and ablation Dr. Silveira S HERNIA PATCH,VENTRALEX,[id number] abdomen STEROTACTIC GUIDE BREAST BX 10/01/2012 u/s [...] mouth twice daily before meals. 1/2 hr beforemeal. EPINEPHrine (EPIPEN) 0.3 mg/0.3 mL auto-injector Inject [...] for another opinion, let provider know and wecan place referral. - PREDNISONE 10 MG TABLET Discussed treatment plan and patient voices understanding. Patient's questions answered appropriately. Medications and potential side effects were discussed and patient voices understanding. Return to the office as scheduled or as needed for worsening/no improvement. Kimber Jorge APRN.DAISY documented in this encounterSt. Elizabeth Hospital12-10-2022 Instructions* Patient Instructions* Torie Arceo APRN.DAISY - 10/29/2022 12:37 PM [...] than 4-6 weeks requires [facility]. Treatment of cough includes measures [...] or other serious complaints. documented in this encounterSt. Elizabeth Hospital12-10-2022 History of Present illness Narrative* Torie Arceo APRN.DAISY - 10/29/2022 12:29 PM EST Subjective Cough Associated symptoms include eye redness. Pertinent negatives include no chills and no wheezing. Brice Gomez is a 42 year old female who presents with cough x 6 days, and woke up with left eye redthis morning. She was seen here on 10/27 [...] airway disease Severe pre-eclampsia, condition or complication Driver general hospitalization Stone, kidney x2 Vitamin D [...] D&C and ablation Dr. Silveira S HERNIA PATCH,VENTRALEX,[id number] abdomen STEROTACTIC GUIDE BREAST BX 10/01/2012 u/s [...] mouth twice daily before meals. 1/2 hr beforemeal. EPINEPHrine (EPIPEN) 0.3 mg/0.3 mL auto-injector Inject [...] middle ear effusion is present. Tympanic membrane isinjected and erythematous. Nose: Nose normal. Mouth/Throat: Pharynx: [...] illness Torie Arceo APRN.CNP documented in this encounterSt. Elizabeth Hospital12-09-2022 Miscellaneous Notes* Telephone Encounter - Mandi Connelly APRN.CNP - 10/28/2022 5:04 PM EST The following approved medication requests have been transmitted electronically. Requested Prescriptions Signed Prescriptions Disp Refills promethazine (PHENERGAN) 6.25 mg/5 mL syrup 473 mL 1 Sig: Take 20 mL by mouth four times daily as needed. Authorizing Provider: TO LONGORIA Ordering User: MANDI CONNELLY APRN.CNP * Telephone Encounter - Bree Oliver LPN - 10/28/2022 5:01 PM EST Pt. was seen in [facility] yesterday. Phenergan cough syrup would be ok. * Telephone Encounter - Mandi Connelly APRN.CNP - 10/28/2022 4:41 PM EST She'll need an appointment for this. Mandi Connelly APRN.CNP * Telephone Encounter - Coni Cid RN - 10/28/2022 4:36 PM EST Pt called in and reports ENT put her on antibiotics for an ear infection. She is on steroids for cough. She reports she needs something to help her at night and called in earlier asking for cough syrup. Please call and advise. * Telephone Encounter - Jamia Gil RN - 10/28/2022 8:29 AM EST Patient calls and states that she was prescribed tessalon perles in express care for cough. Patientstates that they do not help at all. Patient asking if provider can prescribe her something with Codeine? Patient's pharmacy is [facility]. Patient does have an appointment with ENT today due to her ear problems (tinnitus) Please review and advise, Jamia Gil RN documented in this encounterSt. [facility] Hospital12-08-2022 Instructions* Patient Instructions* Zaki Frost APRN.DAISY - 10/27/2022 8:26 AM EST How to Manage Common Symptoms Associated with COVID for Adults Fever- Fever is a temperature over 100.4 F and can occur when the body is fighting an infection. Tohelp treat a fever: Drink plenty of fluids [...] your chest such as Vicks, which can helpreduce cough. Try cough drops. Avoid smoking and other strong odors or perfumes. Try breathing exercises to keep your lungs open and clear. Take a big deep breath through your noseand hold for 5 seconds before slowly releasing. [...] of water every 10-15 minutes and increase astolerated. You can try sucking an ice cube [...] or concerning to you. documented in this encounterSt. Elizabeth Hospital12-08-2022 History of Present illness Narrative* Zaki Frost APRN.CNP - 10/27/2022 8:14 AM EST Subjective HPI Nontoxic female presents urgent care [...] Denies any fever body aches chills productive coughchest pain shortness of breath pleuritic pain hemoptysis [...] airway disease Severe pre-eclampsia, condition or complication Driver general hospitalization Stone, kidney x2 Vitamin D [...] D&C and ablation Dr. Silveira S HERNIA PATCH,VENTRALEX,[id number] abdomen STEROTACTIC GUIDE BREAST BX 10/01/2012 u/s [...] mouth twice daily before meals. 1/2 hr beforemeal. EPINEPHrine (EPIPEN) 0.3 mg/0.3 mL auto-injector Inject [...] 69.3 kg (152 lb 12.8 oz) LMP 08/24/2020(Exact Date) SpO2 100% BMI 29.80 kg/m Hr [...] not bulging. Nose: Congestion present. Mouth/Throat: Lips: [place]. Mouth: Mucous membranes are moist. Pharynx: Oropharynx [...] patient's clinical presentation is otherwise unremarkable at thistime. Based on exam and clinical finding, the patient is stable for discharge. Plan of care was discussed with patient. Patient verbalizes understanding and agrees to plan of care. This note was gener ated using Wheeldo software. It may contain errors in wording, punctuation, or spelling. Zaki Frost APRN.DAISY documented in this encounterSt. Elizabeth Hospital12-01-2022 Miscellaneous Notes* Telephone Encounter - Soumya Waldron Ma - 10/20/2022 8:26 AM EST Pt informed, verbalized understanding Soumya Waldron Ma * Telephone Encounter - To Longoria DO - 10/19/2022 8:31 PM EST Please inform patient that her urine cytology is negative for malignancy, only shows inflammation. Would recommend follow up with [facility]ro [facility] if symptoms urinary start. To Longoria DO documented in this encounterSt. Elizabeth Hospital11-22-2022 Instructions* Patient Instructions* To Longoria DO - 10/11/2022 5:23 PM EST Magnesium 250-500 mg a day Every other day 20-40 mg with Nexium for at least 2 weeks before dropping to 20 mg if tolerating dose change documented in this encounterSt. Elizabeth Hospital11-22-2022 History of Present illness Narrative* To Longoria DO - 10/11/2022 5:21 PM EST CC: Brice Gomez is a 42 year [...] her cruise she took away with her husbandexcept for 2 panic attacks while on the [...] airway disease Severe pre-eclampsia, condition or complication Driver general hospitalization Stone, kidney x2 Vitamin D [...] D&C and ablation Dr. Silveira S HERNIA PATCH,VENTRALEX,[id number] abdomen STEROTACTIC GUIDE BREAST BX 10/01/2012 u/s [...] mouth twice daily before meals. 1/2 hr beforemeal. EPINEPHrine (EPIPEN) 0.3 mg/0.3 mL auto-injector Inject [...] [Cephalexin] Rash Minocycline Hives Penicillins Rash, Itching Vishnu Darrick type reaction. Pseudoephedrine Other: See Comments [...] nares without drainage, pharynx without erythema, exudate, lesions,or drainage. Uvula midline. Neck: No LAD, no thyromegaly, no meningismus. CV: RRR, no murmur Lungs: CTA b/l, no wheezing Skin: No rashes, lesions, or wounds on exposed skin. No flank pain ASSESSMENT/PLAN: 1. Gross hematuria - ICD9: 599.71, ICD10: R31.0 (primary diagnosis) Since she was asymptomatic, recommend urine cytology, f/u with Urologist if occurs again - UA DIP, URINE (POC) - CYTOLOGY NON-CARE CONNECTOR 2. Painless hematuria - ICD9: 599.70, ICD10: R31.9 See above - CYTOLOGY NON-[facility]ARE [facility] 3. GERD without esophagitis - ICD9: 530.81, ICD10: K21.9 - Discussed lifestyle modifications including losing weight, limiting caffeine, no meals three hours before sleep, and head of bed elevation - try to decrease dose of nexium to see if symptoms are improved now. - ESOMEPRAZOLE MAGNESIUM 20 MG CAPSULE,DELAYED RELEASE 4. KATHIE (generalized anxiety disorder) - ICD9: 300.02, ICD10: F41.1 F/u with Psychiatrist, seems to be getting better To Longoria DO Return if no improvement. Follow up with To Longoria DO. To ER if develops chest pain, shortness of breath Discussed risks, benefits, alternatives, and potential side effects of medications. Patient/Guardian expressed understanding and agreed with the plan. See patient instructions. To Longoria DO [address] [place] [address] documented in this encounterSt. Elizabeth Hospital11-17-2022 History of Present illness Narrative* Laurel Diaz BenzDO - 10/06/2022 10:46 AM EST Images from the original note were not included. PSYC FOLLOW UP - PSYCHIATRIC PROGRESS NOTE This was a virtual follow up over zoom for 30 mins CC: anxiety follow up HPI: Panic attack when on the boat in the [facility] snorkling with waves. She had a hard time swimming back to the boat with panic bc her breathing was fast up to 170 hr. On the cruise in the buffet line she had some panic sx. Risks and benefits of the medication, including any black box warnings, were discussed with the patient. Interval Progress: none PATIENT DATA: Generalized Anxiety Disorder Scale (KATHIE-7) KATHIE - 7 SCORES 07/18/2022 08/30/2022 10/04/2022 KATHIE-7 Score 5 7 3 (0-4) minimal anxiety, [...] population = 50. Five points is a clinicallymeaningful difference.) 08/09/2022 10/04/2022 10/04/2022 Physical T-Score 47.7 - - Mental T-Score 38.8 48.3 48.3 PAST MEDICAL HISTORY Diagnosis Date Abnormal uterine bleeding 01/31/2013 Allergic rhinitis, cause unspecified Allergic rhinitis. Immunotherapy in past, [facility]. Depression Fibrosclerosis of breast H. 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 Silveira S HERNIA PATCH,VENTRALEX,[id number] abdomen STEROTACTIC GUIDE BREAST BX 10/01/2012 u/s [...] daily as needed for up to 30 days.30 tablet 0 vilazodone (VIIBRYD) 20 mg tablet [...] mouth twice daily before meals. 1/2 hr beforemeal. 180 capsule 5 EPINEPHrine (EPIPEN) 0.3 mg/0.3 [...] REVIEWED: None DIAGNOSIS: PRIMARY panic disorder , kathie MDD recurrent TREATMENT PLAN: 1. Increase viibryd to 30 mg po daily 2. Wellbutrin XL 300 mg daily I spent a total of 30 minutes on the date of the service which included face to face and reviewing the chart ADD ON PSYCHOTHERAPY CODE : none SIGNATURE: Laurel Benz DO PATIENT NAME: Brice Gomez DATE: October 06, 2022 TIME: 10:46 AM PAGER: documented in this encounterSt. Elizabeth Hospital11-03-2022 Miscellaneous Notes* Telephone Encounter - Mandivianca Connelly APRN.CNP - 09/22/2022 4:54 PM EDT Reviewed. Mandi Connelly APRN.CNP * Telephone Encounter - Bree Oliver LPN - 08/12/2022 2:13 PM EDT Labs received and placed on Dr. Longoria's desk. Bree Oliver LPN documented in this encounterSt. Elizabeth Hospital10-28-2022 Miscellaneous Notes* Telephone Encounter - Bree Oliver LPN - 09/16/2022 1:25 PM EDT Pt. informed. * Telephone Encounter - Estrella Manzo APRN.CNP - 09/16/2022 8:49 AM EDT I agree that it could likely be kidney stones due to UA and urine culture negative for infection. Agree with stopped qysmia -- at least for time being to see if improvement in symptoms. If wanting to discuss other options for weight management medications, needs to make appointment. Thank you, Estrella Manzo APRN.CNP * Telephone Encounter - Coni Cid RN - 09/15/2022 1:25 PM EDT Pt sent [email or web address][email or web address] message in 6 days ago: I went into urgent care last night for hematuria. It started in the afternoon, and started to fadearound 11:00 last evening. It was bright red, [...] Who knows. Let me know your thoughts. Thanks Brice Pt reports she had 6 hours of blood, denied pain. She states talked with Dr Posada and thinks she may have passed a stone. Reports she stopped Qsymia as it can cause kidney stones and hematuria, did not have any side effects from abruptly stopping. Please call and advise. Faxed Gastro order to Dr Brock at [phone]. documented in this encounterSt. Elizabeth Hospital10-27-2022 Miscellaneous Notes* Telephone Encounter - Coni Cid RN - 09/15/2022 1:24 PM EDT Opening phone encounter. * Telephone Encounter - Clemencia Mazariegos Ma - 09/09/2022 11:45 AM EDT See message from pt and advise. Seen in [facility] yesterday. Clemencia Mazariegos Ma documented in this encounterSt. Elizabeth Hospital10-21-2022 Miscellaneous Notes* Telephone Encounter - Zaki Frost APRN.DAISY - 09/09/2022 8:23 AM EDT Labs reviewed from [facility]. Creatinine was 1.01 BUN 24 creatinine clearance 80. Patient states symptoms are improving. Blood and urine is improving. We discussed supportive therapies. Discussed red flags for prompt reevaluation. Patient will follow up with PCP 7 to 10 days for repeat urinalysis in [facility] to ensure labs are improving. Patient verbalized understand agrees with plan of care. Zaki Frost APRN.PALS NURSE documented in this encounterSt. Elizabeth Hospital10-21-2022 Miscellaneous Notes* Telephone Encounter - To Longoria DO - 09/09/2022 7:27 AM EDT Patient was seen in To Longoria DO * Telephone Encounter - Lisa Ruvalcaba LPN - 09/08/2022 4:50 PM EDT Patient calling said she is taking Qsymia [...] operation for express care. documented in this encounterSt. Elizabeth Hospital10-20-2022 History of Present illness Narrative* Romana Zavala PA-C - 09/08/2022 6:10 PM EDT This note was created using ClearStarriter. Subjective Brice Gomez is a 41 year old female. [...] for dysuria, flank pain, frequency, pelvic pain andurgency. Musculoskeletal: Negative. All other systems reviewed and [...] airway disease Severe pre-eclampsia, condition or complication Driver general hospitalization Stone, kidney x2 Vitamin D [...] daily as needed for up to 30 days.30 tablet 0 vilazodone (VIIBRYD) 20 mg tablet [...] mouth twice daily before meals. 1/2 hr beforemeal. 180 capsule 5 EPINEPHrine (EPIPEN) 0.3 mg/0.3 [...] D&C and ablation Dr. Silveira S HERNIA PATCH,VENTRALEX,[id number] abdomen STEROTACTIC GUIDE BREAST BX 10/01/2012 u/s [...] have this drawn in the morning at [facility]. We will follow-up on results. Discussed if [...] PNL Romana Zavala PA-C documented in this encounterSt. Elizabeth Hospital09-21-2022 History of Present illness Narrative* To Longoria, DO - 08/10/2022 10:35 PM EDT CC: Brice Gomez is a 41 year old female [...] improve. She was then seen by Dr. Svitlana LOPEZ and she had concurrently at that time had some neck/throat swelling and was placed kendall antibiotic. The throat/neck swelling resolved but she continued to have tinnitus. She was found to have hearing loss with testing at ENT on the left side. She had MRI brain/ear completed which wasnormal appearing. She then restarted on her Vibryyd [...] Has also had some situational stressors with her2 sons and her marriage. Obesity, very frustrated [...] airway disease Severe pre-eclampsia, condition or complication Driver general hospitalization Stone, kidney x2 Vitamin D [...] D&C and ablation Dr. Raoul Rushing HERNIA PATCH,VENTRALEX,[id number] abdomen STEROTACTIC GUIDE BREAST BX 10/01/2012 u/s [...] mouth twice daily before meals. 1/2 hr beforemeal. EPINEPHrine (EPIPEN) 0.3 mg/0.3 mL auto-injector Inject [...] [Cephalexin] Rash Minocycline Hives Penicillins Rash, Itching Vishnu Darrick type reaction. Pseudoephedrine Other: See Comments [...] nares without drainage, pharynx without erythema, exudate, lesions,or drainage. Uvula midline. Neck: No LAD, no [...] ER 46 MG CAPSULE,EXT.RELEASE 24HR MPHASE 7. KATHIE (generalized anxiety disorder) - ICD9: 300.02, ICD10: F41.1 - see above, f/u with Dr. Angel Longoria DO Return if no improvement. Follow up with To Longoria DO. To ER if develops chest pain, shortness of breath Discussed risks, benefits, alternatives, and potential side effects of medications. Patient/Guardian expressed understanding and agreed with the plan. See patient instructions. To Longoria DO [address] [place] [address] documented in this encounterSt. Elizabeth Hospital09-01-2022 Miscellaneous Notes* Addendum Note - Laurel Benz DO - 07/21/2022 9:54 AM EDTAddended by: LAUREL BENZ on: 07/21/2022 09:54 AM Modules accepted: Orders documented in this encounterSt. Elizabeth Hospital09-01-2022 History of Present illness Narrative* Laurel Benz DO - 07/21/2022 9:40 AM EDT Images from the original note were not [...] Disorder Scale (KATHIE-7) KATHIE - 7 SCORES 05/19/2022 07/18/2022 KATHIE-7 Score 3 5 (0-4) minimal anxiety, (5-9) mild anxiety, (10-14) moderate anxiety, (15-21) severe anxiety Patient Health Questionnaire (PHQ-9) PHQ-9 01/14/2022 05/19/2022 07/18/2022 Score 3 1 1 (0-4) minimal depression, (5-9) mild depression, (10-14) moderate depression, (15-19) moderately severe depression, (20-27) severe depression PROMIS Global Health PROMIS Global Health - (T-Scores - the mean of general population = 50. Five points is a clinicallymeaningful difference.) 01/14/2022 05/19/2022 07/18/2022 Physical T-Score 50.8 [...] airway disease Severe pre-eclampsia, condition or complication Driver general hospitalization Stone, kidney x2 Vitamin D [...] D&C and ablation Dr. Silveira S HERNIA PATCH,VENTRALEX,[id number] abdomen STEROTACTIC GUIDE BREAST BX 10/01/2012 u/s guidance of left breast VAGINAL HYSTERECTOMY right Ovary remains Current Outpatient Medications Medication Sig Dispense Refill clonazePAM (KLONOPIN) 0.5 mg tablet Take 1 tablet by mouth twice daily as needed for up to 30 days.30 tablet 0 scopolamine (TRANSDERM-SCOP) patch 1.5 mg/72 hr (delivers 1 mg over 3 days) Apply 1 Patch as directed every 72 hours. Apply patch to skin behind ear 4hrs prior to travel. 10 Patch 1 naltrexone-bupropion (CONTRAVE) 8-90 mg ER tablet Take 2 tablets by mouth twice daily. 2 tablets POtwice daily, BMI 31.79 120 tablet 0 buPROPion [...] mouth twice daily before meals. 1/2 hr beforemeal. 180 capsule 5 gabapentin (NEURONTIN) 300 mg [...] the date of the service which included [id number] patient care and completing clinical documentation. ADD ON PSYCHOTHERAPY CODE : No SIGNATURE: Laurel Benz DO PATIENT NAME: Brice Gomez DATE: July 21, 2022 TIME: 9:40 AM PAGER: documented in this encounterSt. Elizabeth Hospital07-06-2022 History of Present illness Narrative* Laurel Benz DO - 05/25/2022 10:27 AM EDT Images from the original note were not [...] her brothers . She is going to [facility] next week. She is working in [employer] and loves it working at [employer]. Risks and benefits of the medication, including any black box warnings, were discussed with the patient. Interval Progress: improved PATIENT DATA: Generalized Anxiety Disorder Scale (KATHIE-7) KATHIE - 7 SCORES 05/19/2022 KATHIE-7 Score 3 (0-4) minimal anxiety, (5-9) mild anxiety, (10-14) moderate anxiety, (15-21) severe anxiety Patient Health Questionnaire (PHQ-9) PHQ-9 06/28/2020 01/14/2022 05/19/2022 Score 7 3 1 (0-4) minimal depression, (5-9) mild depression, (10-14) moderate depression, (15-19) moderately severe depression, (20-27) severe depression PROMIS Global Health PROMIS Global Health - (T-Scores - the mean of general population = 50. Five points is a clinicallymeaningful difference.) 04/28/2021 01/14/2022 05/19/2022 Physical T-Score 42.3 50.8 50.8 Mental T-Score 41.1 - 45.8 PAST MEDICAL HISTORY Diagnosis Date Abnormal uterine bleeding 01/31/2013 Allergic rhinitis, cause unspecified Allergic rhinitis. Immunotherapy in past, Dr. Bond, [facility]. Depression Fibrosclerosis of breast H. 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 Silveira S HERNIA PATCH,VENTRALEX,[id number] abdomen STEROTACTIC GUIDE BREAST BX 10/01/2012 u/s [...] tablets by mouth twice daily. 2 tablets POtwice daily, BMI 31.79 120 tablet 0 clonazePAM [...] mouth twice daily before meals. 1/2 hr beforemeal. 180 capsule 5 vilazodone (VIIBRYD) 20 mg [...] recurrent TREATMENT PLAN: 1. IAGNOSIS: Mdd recurrent KATHIE TREATMENT PLAN: 1. D/c'd wellbutrin since started contrave with wellbutrin 180 mg 2. D/c viibryd 20 mg see if contributing to the ringing of the ears. 3. Follow up one month I spent a total of 30 minutes on the date of the service which included [id number] patient care and completing clinical documentation. ADD ON PSYCHOTHERAPY CODE : No SIGNATURE: Laurel Benz DO PATIENT NAME: Brice Gomez DATE: May 25, 2022 TIME: 10:28 AM PAGER: documented in this encounterSt. Elizabeth Hospital07-01-2022 Miscellaneous Notes* Telephone Encounter - Jennifer Vazquez Ma - 05/20/2022 2:32 PM EDT Patient was notified Jennifer Vazquez Ma * Telephone Encounter - To Longoria DO - 05/20/2022 1:29 PM EDT The following approved medication requests have been transmitted electronically. Signed Prescriptions Disp Refills scopolamine (TRANSDERM-SCOP) patch 1.5 mg/72 hr (delivers 1 mg over 3 days) 10 Patch 1 Sig: Apply 1 Patch as directed every 72 hours. Apply patch to skin behind ear 4hrs prior to travel. Authorizing Provider: TO LONGORIA DO * Telephone Encounter - Soumya Waldron Ma - 05/20/2022 9:11 AM EDT Message copied from [employer] Can you call in a script for some scopolamine patches for our cruise we are taking soon, just in case we need them? Thank you, Brice rx pended Soumya Waldron Ma documented in this encounterSt. Elizabeth Hospital04-19-2022 Miscellaneous Notes* Telephone Encounter - To Longoria DO - 03/08/2022 3:04 PM EDT The following approved medication requests have been transmitted electronically. Signed Prescriptions Disp Refills naltrexone-bupropion (CONTRAVE) 8-90 mg ER tablet 360 tablet 0 Sig: Take 2 tablets by mouth twice daily. BMI 31.79 KATHLEEN: No Authorizing Provider: TO LONGORIA naltrexone-bupropion (CONTRAVE) 8-90 mg ER tablet 120 tablet 0 Sig: Take 2 tablets by mouth twice daily. 2 tablets PO twice daily, BMI 31.79 KATHLEEN: No Authorizing Provider: TO LONGORIA DO * Telephone Encounter - Gissell Crawford RN - 03/08/2022 2:01 PM EDT Patient reports her Contrave Rx should have gone to [facility]. Has been on it for 5 weeks, but not as instructed b/c she didn't know an Rx was sent to [facility] (cancelled this Rx at [facility], per patient request- spoke with pharmacist). Has been taking the bupropion she already had. Needs contrave written to take 2 tabs twice daily, because that is where she is at with it. Needs a 30 day supplyfor #120 pills (gets a coupon from [facility] if it's written for 120 pills), and needs a 90 day supply sent to [facility]. Please phone patient with any questions. documented in this encounterSt. Elizabeth Hospital04-18-2022 Miscellaneous Notes* Addendum Note - Estrella Manzo APRN.CNP - 03/07/2022 9:56 AM EDT Addended by: ESTRELLA MANZO on: 03/07/2022 09:56 AM Modules accepted: Orders * Telephone Encounter - Estrella Manzo APRN.CNP - 03/07/2022 9:56 AM EDT The following approved medication requests have been transmitted electronically. Signed Prescriptions Disp Refills naltrexone-bupropion (CONTRAVE) 8-90 mg ER tablet 70 tablet 1 Si tablet PO once daily in the morning for 1 week; increase as tolerated in weekly intervals: 1tablet twice daily for 1 week; then 2 tablets in the morning and 1 tablet in the evening for 1 week; and then 2 tablets twice daily KATHLEEN: No Authorizing Provider: ESTRELLA MANZO APRN.CNP * Telephone Encounter - KAMERON Cheung - 03/07/2022 9:18 AM EDT Patient has been identified by name and date of : Yes Patient phones for refill(s): Pending Prescriptions Disp Refills CONTRAVE 8 MG-90 MG TABLET,EXTENDED RELEASE 70 tablet 1 Si tablet PO once daily in the morning for 1 week; increase as tolerated in weekly intervals: 1tablet twice daily for 1 week; then 2 tablets in the morning and 1 tablet in the evening for 1 week; and then 2 tablets twice daily KATHLEEN: No Date of last office visit in primary care: OV on 01/17/2022 No appointment scheduled Last 2 Encounter Wt Readings: Date: Wt: 01/17/2022 73.9 kg (163 lb) 12/15/2021 73 kg (161 lb) Please advise. Thank you. Griselda Strait, CT documented in this encounterSt. Elizabeth Hospital03-11-2022 Miscellaneous Notes* Telephone Encounter - To Longoria DO - 01/28/2022 7:18 AM EST The following approved medication requests have been transmitted electronically. Signed Prescriptions Disp Refills naltrexone-bupropion (CONTRAVE) 8-90 mg ER tablet 70 tablet 1 Si tablet PO once daily in the morning for 1 week; increase as tolerated in weekly intervals: 1tablet twice daily for 1 week; then 2 tablets in the morning and 1 tablet in the evening for 1 week; and then 2 tablets twice daily KATHLEEN: No Authorizing Provider: TO LONGORIA DO documented in this encounterSt. Elizabeth Hospital02-10-2021 NoteSend Summary: Discharge Summary Providers: Provider RoleProvider Name Aman Richards Note Recipients: Aman Gray MD Required, No PcpMD Discharge: Summary: Admission Date: .28-Dec-2020 05:50:00 Discharge Date: 30-Dec-2020 Attending Physician at Discharge: Aman Gary Admission Reason: Colon polyp Final Discharge Diagnoses: Colon polyp, Acute postoperative pain Procedures: Date: 28-Dec-2020 09:22:00 Procedure Name: 1. Right colectomy 2. 3. 4. 5. Condition at Discharge: Satisfactory Disposition at Discharge: .Home Vital Signs: T PRBPSpO2 [id number]/6595% Date/Time12/30 14: 14: 14: 14: 14:18 Range(36.7C - 37.3C ) (85 - 96 ) (16 - 18 ) (98 - 117 )/ (63 - 78 ) (95% - 96% ) Highest temp of 37.3 C was recorded at 12/30 9:31 Date: Weight/Scale Type:Height: 28-Dec-2020 13:0768.9 kg / nuumuouw408.1 cm Physical Exam: Constitutional: Pleasant, calm and [...] care, diet, and bowel function. Hospital Course: Brice Gomez is a 40 year old female with a past medical history of GERD, IBD, and an ascending colon polyp who underwent a right hemicolectomy on 12/28/[address] Gary. She tolerated the procedure well and was [...] sure to drink plen (more content not included)...[facility]02-08-2021 NoteHistory of Present Illness: /Lactating: Are You no Are You Currently [...] the note. I personally evaluated the patient [id number] Attending Provider Inpatient Certification StatementI certify this patients need for inpatient care based on the above documentation including; the order to admit as inpatient, the anticipated length of stay, diagnosis, problem list and plan of care, and discharge plan. Admission Order - View OnlyCurrent Admission Order. Admit to Inpatient Adult [facility] [place] [facility] [place] Admitting Diagnosis, K63.5 Colon polyp Level of Care, Med/Surg Wai Hernandez Electronic Signatures: Aman Gary) (Signed 28-Dec-2020 10:40) Authored: Note Completion Co-Signer: History of Present Illness, Allergies, Home Medication Review, Impression/Procedure, ERAS, Physical Exam, Consent, Note Completion Wai Hernandez (Resident)) (Signed 28-Dec-2020 05:32) Authored: History of Present Illness, Allergies, Home Medication Review, Impression/Procedure, ERAS, Physical Exam, Consent, Note Completion Last Updated: 28-Dec-2020 10:40 by Aman Gary)[facility] 08-24-2020 History of Present illness Narrative* Adams Montano (Rt), Tech - 08/24/2020 11:50 AM EDT Radiology Service Progress Note PATIENT NAME: Brice Gomez DATE OF SERVICE: August 24, 2020 TIME: 11:56 AM PATIENT IDENTITY VERIFICATION COMPLETED USING TWO (2) IDENTIFIERS: Name and Date of confirmedby patient verbally. FALL SCREENING: Has the patient had 2 falls in the last year or 1 fall with injury or currently using an Ambulatory Assistive Device (Walker, Cane, Wheelchair, Crutches, etc.)? No PATIENT GENDER DATA: Female. status: : No status: NO. PATIENT RELEVANT IMPLANT DATA REVIEWED: Not Applicable RADIOLOGY DEPARTMENT: General X-ray: Exam(s) Completed: Chest X-Ray PERIPHERAL IV DATA: Not applicable SIGNED BY: RT Manoj August 24, 2020 11:56 AM [facility] of [facility] Narrative* Problem [...] of this encounter (statuses as of 03/04/2022) [facility] of [facility] N[facility]ative* Problem [...] of this encounter (statuses as of 03/07/2022) [facility] Narrative* Problem [...] of this encounter (statuses as of 05/10/2022) [facility] Narrative* Problem [...] of this encounter (statuses as of 05/20/2022) [facility] Narrative* Problem [...] of this encounter (statuses as of 05/25/2022) [facility]* Problem [...] of this encounter (statuses as of 07/11/2022) [facility] Narrative* Problem [...] of this encounter (statuses as of 07/21/2022) [facility]* Problem [...] of this encounter (statuses as of 08/11/2022) [facility] N[facility]* Problem [...] of this encounter (statuses as of 08/25/2022) [place] [id number] History of Past illness Narrative* Problem Noted [...] of this encounter (statuses as of 09/07/2022) [facility]* Problem [...] of this encounter (statuses as of 09/08/2022) [facility]* Problem [...] of this encounter (statuses as of 09/09/2022) [facility]* Problem [...] of this encounter (statuses as of 09/14/2022) [facility] N[facility]* Problem [...] of this encounter (statuses as of 09/15/2022) [facility]* Problem [...] of this encounter (statuses as of 09/16/2022) [facility]* Problem [...] of this encounter (statuses as of 10/06/2022) [facility]* Problem [...] of this encounter (statuses as of 10/12/2022) [facility]* Problem [...] of this encounter (statuses as of 10/27/2022) [facility] of [facility]* Problem [...] of this encounter (statuses as of 10/29/2022) [facility]* Problem Noted Date Resolved Date Atypical Nevus of female rm ast: R/O Dysplastic Intradermal Nevus mole (left mid chest at L medial breast) 12/06/2013 09/08/2 015 Melanocytic nevi of trunk 12/06/20132014 Melanocytic [...] of this encounter (statuses as of 10/31/2022) [facility] Narrative* Problem [...] of this encounter (statuses as of 11/24/2022) [facility]* Problem [...] of this encounter (statuses as of 11/25/2022) [facility] N[facility]* Problem [...] of this encounter (statuses as of 12/06/2022) [facility]* Problem [...] of this encounter (statuses as of 12/23/2022) [facility]* Problem [...] of this encounter (statuses as of 01/06/2023) [facility]* Problem [...] of this encounter (statuses as of 01/12/2023) [facility]* Problem [...] of this encounter (statuses as of 01/20/2023) [facility]* Problem [...] of this encounter (statuses as of 01/20/2023) [facility]* Problem [...] of this encounter (statuses as of 02/01/2023) [facility]* Problem [...] of this encounter (statuses as of 02/20/2023) [facility]* Problem [...] of this encounter (statuses as of 03/09/2023) [facility] Problem [...] of this encounter (statuses as of 03/20/2023) [facility]* Problem [...] of this encounter (statuses as of 03/21/2023) [facility]* Problem [...] of this encounter (statuses as of 04/17/2023) [facility]* Problem [...] of this encounter (statuses as of 04/25/2023) [facility]* Problem [...] 04/11/2012 07/28/2015 Atypical nevus of thigh 04/11/2012 09/0 06/2015 Melanocytic nevi of lower extremity or hip [...] of this encounter (statuses as of 06/22/2023) [facility]* Problem [...] of this encounter (statuses as of 07/21/2023) [facility]* Problem [...] of this encounter (statuses as of 08/02/2023) [facility]* Problem [...] of this encounter (statuses as of 08/03/2023) [facility]* Problem [...] 04/11/2012 07/28/2015 Atypical nevus of thigh 04/11/2012 0906/2015 Melanocytic nevi of lower extremity or hip [...] of this encounter (statuses as of 09/13/2023) [facility]* Problem [...] of this encounter (statuses as of 10/12/2023) [facility]* Problem [...] as of this encounter (statuses as of 01/18/2024) [facility]* Problem [...] 04/11/2012 07/28/2015 Atypical nevus of thigh 04/11/2012 0906/2015 Melanocytic nevi of lower extremity or hip [...] as of this encounter (statuses as of 01/31/2024) [facility] Diagnosis Obesity, Class I, BMI 30-34.9- Primary Obesity, unspecified [facility] Diagnosis Travel advice encounter- Primary Other specified counseling [facility] Diagnosis Recurrent major depressive disorder, in partial remission (HCC)- Primary KATHIE (generalized anxiety disorder) Generalized anxiety disorder [facility]* Diagnosis Recurrent major depressive disorder, in partial remission (HCC) KATHIE (generalized anxiety disorder) Generalized anxiety disorder documented in this encounter 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 Tachycardia chronic [facility] Work Phone: Evaluation note* Diagnosis Depression, unspecified depression type- Primary Fatigue, unspecified type Encounter for screening mammogram for malignant neoplasm of breast Other screening mammogram Borderline abnormal thyroid function test Nonspecific abnormal results of thyroid function study Need for Tdap vaccination Need for prophylactic vaccination with combined [id number] (DTP) vaccine Obesity, Class I, BMI 30-34.9 Obesity, unspecified KATHIE (generalized anxiety disorder) Generalized anxiety disorder documented in this encounter [facility] note* Diagnosis Gross hematuria- Primary 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* Diagnosis Gross hematuria- Primary Painless hematuria Hematuria, unspecified GERD without esophagitis Esophageal reflux KATHIE (generalized anxiety disorder) Generalized anxiety disorder [facility]* Diagnosis Viral illness- Primary Unspecified viral infection, in conditions classified elsewhere and of unspecified site [facility]* Diagnosis OME (otitis media with effusion), bilateral- Primary Viral URI with cough Acute upper respiratory infections of unspecified site Redness of eye, left Redness or discharge of eye documented in this encounter [facility]* Diagnosis Decreased hearing of both ears- Primary [facility]* Diagnosis Recurrent major depressive disorder, in partial remission (HCC) KATHIE (generalized anxiety disorder) Generalized anxiety disorder 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* Diagnosis Recurrent infections- Primary Unspecified infectious and parasitic diseases Need for vaccination Need for prophylactic vaccination and inoculation against unspecified single disease Chronic rhinitis Mild intermittent reactive airway disease without complication Toxic effect of venom, accidental or unintentional, initial encounter documented in this encounter [facility]* Diagnosis GERD without esophagitis Esophageal reflux documented in this encounter 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 Personal history of colonic polyps resolved [facility] Work Phone: Evaluation note* Diagnosis PTSD (post-traumatic stress disorder)- Primary Posttraumatic stress disorder MDD (major depressive disorder), recurrent episode, moderate (HCC) Major depressive disorder, recurrent episode, moderate KATHIE (generalized anxiety disorder) Generalized anxiety disorder documented in this encounter [facility] note* Diagnosis Onset Date Resolution Status Diarrhea acute GERD (gastroesophageal reflux disease) acute 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 Personal history of colonic polyps resolved [facility] Work Phone: Evaluation note* Diagnosis Onset Date Resolution Status Maxillary sinusitis resolved GERD (gastroesophageal reflux disease) acute Diarrhea chronic Personal history of colonic polyps resolved 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 Tachycardia chronic Atrophic vaginitis acute Hot flashes acute [facility] Work Phone: Evaluation note* Diagnosis Recurrent major depressive disorder, in partial remission (HCC) KATHIE (generalized anxiety disorder) Generalized anxiety disorder documented in this encounter [facility] note* Diagnosis Diarrhea, unspecified type- Primary Encounter for screening mammogram for malignant neoplasm of breast Other screening mammogram GERD without esophagitis Esophageal reflux KATHIE (generalized anxiety disorder) Generalized anxiety disorder Decreased hearing of both ears Fatigue, unspecified type Depression, unspecified depression type 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 Tachycardia chronic Atrophic vaginitis acute Hot flashes acute Sebaceous cyst of right axilla acute [facility] Work Phone: Evaluation note* Diagnosis Onset Date Resolution Status Sebaceous cyst of right axilla acute GERD (gastroesophageal reflux disease) acute Diarrhea chronic Personal history of colonic polyps resolved [facility] Work Phone: Evaluation note* Diagnosis MDD (major depressive disorder), recurrent episode, moderate (HCC)- Primary Major depressive disorder, recurrent episode, moderate Panic disorder without agoraphobia KATHIE (generalized anxiety disorder) Generalized anxiety disorder Recurrent major depressive disorder, in partial remission (HCC) [facility] Diagnosis Onset Date Resolution Status GERD (gastroesophageal reflux disease) acute Diarrhea chronic Personal history of colonic polyps resolved [facility] Work Phone: Evaluation note* Diagnosis KATHIE (generalized anxiety disorder) Generalized anxiety disorder Recurrent major depressive disorder, in partial remission (HCC) [facility] Diagnosis Acute bilateral low back pain with sciatica, sciatica laterality unspecified- Primary [facility]* Diagnosis Well adult exam- Primary Routine general medical examination at a health care facility Acute bilateral low back pain with bilateral sciatica Radiculopathy of lumbar region Thoracic or lumbosacral neuritis or radiculitis, unspecified Paresthesia of skin Disturbance of skin sensation Pars defect of lumbar spine Acquired spondylolisthesis [facility] Diagnosis Acute bilateral low back pain with bilateral sciatica- Primary [facility] Diagnosis Positive self-administered antigen test for COVID-19- Primary [facility] Diagnosis Lumbosacral radiculopathy at L5- Primary Thoracic or lumbosacral neuritis or radiculitis, unspecified DDD (degenerative disc disease), lumbar Degeneration of lumbar or lumbosacral intervertebral disc Osteoarthritis of spine with radiculopathy, lumbar region [facility] Diagnosis Lumbosacral radiculopathy at L5- Primary Thoracic or lumbosacral neuritis or radiculitis, unspecified DDD (degenerative disc disease), lumbar Degeneration of lumbar or lumbosacral intervertebral disc Osteoarthritis of spine with radiculopathy, lumbar region Paresthesia of skin Disturbance of skin sensation Pars defect of lumbar spine Acquired spondylolisthesis documented in this encounter [facility] note* Diagnosis Lumbosacral radiculopathy at L5- Primary Thoracic or lumbosacral neuritis or radiculitis, unspecified DDD (degenerative disc disease), lumbar Degeneration of lumbar or lumbosacral intervertebral disc Osteoarthritis of spine with radiculopathy, lumbar region Chronic bilateral low back pain with bilateral sciatica documented in this encounter [facility]* Diagnosis KATHIE (generalized anxiety disorder)- Primary Generalized anxiety disorder Major depressive disorder, recurrent severe without psychotic features (HCC) Major depressive disorder, recurrent episode, severe, without mention of psychotic behavior PTSD (post-traumatic stress disorder) Posttraumatic stress disorder documented in this encounter [facility]* Diagnosis GERD without esophagitis Esophageal reflux documented in this encounter [facility] note* Diagnosis Tachycardia Tachycardia, unspecified SOB (shortness of breath) Shortness of breath documented in this encounter [facility] note* Diagnosis Elevated blood pressure reading without diagnosis of hypertension- Primary Decreased libido Headache disorder Headache Abnormal foot color Other symptoms involving skin and integumentary tissues documented in this encounter [facility] note* Diagnosis Onset Date Resolution Status GERD (gastroesophageal reflux disease) acute Diarrhea chronic Personal history of colonic polyps resolved Myocarditis due to 2018-nCo acute Tachycardia chronic Atrophic vaginitis acute Hot flashes acute Sebaceous cyst of right axilla acute [facility] Work Phone: Evaluation note* Diagnosis Elevated blood pressure reading without diagnosis of hypertension- Primary Menopausal disorder Unspecified menopausal and postmenopausal disorder Decreased libido Encounter for screening mammogram for malignant neoplasm of breast Other screening mammogram Class 1 obesity with body mass index (BMI) of 30.0 to 30.9 in adult, unspecified obesity type, unspecified whether serious comorbidity present Chronic bilateral low back pain with bilateral sciatica Palpitations documented in this encounter [facility] note* Diagnosis Class 1 obesity with body mass index (BMI) of 30.0 to 30.9 in adult, unspecified obesity type, unspecified whether serious comorbidity present [facility] Diagnosis FLORENTINO (obstructive sleep apnea)- Primary Obstructive sleep apnea (adult) (pediatric) [facility] Author Pedrito Brock [facility] February 16, 2023 6:40am Note Date/Time February 16, 2023 6:4 0am [facility] Medical Records Department [address] [place] [address] History & Physical Exam 02/16/23 0640 MR#: [id number] Acct: [id number] Name: BRICE GOMEZ Rep #:[id number] : 1980 42 From: Pedrito Brock DO PCP: Dr. To Longoria, DO Status:[facility] Location: [place] [address] History and Physical Date of Admission: 02/16/23 42 F who presents to the office today for PMH post COVID myocarditis; anxiety/depression; asthma; cystitis; SVT PSH right hemicolectomy ; left oophorectomy FH colon cancer, maternal grandfather; esophageal cancer, paternal grandfather. Initial consult. Brice established with this clinic 12.06.22. Previously established with [facility] with symptoms of abdominal pain, nausea, diarrhea and reflux. ?EGD and colonoscopy 10.23.20?Dr. Anaya. EGD noting gastritis without specimens collected. ?Esophageal manometry, pH monitoring. Colonoscopy found likely malignant tumor of proximal ascending colon; sigmoid diverticulosis; nonbleeding internal hemorrhoids. 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 Recommend right hemicolectomy Right hemicolectomy 12.28.[address] Gary with 2 day hospitalization. [facility] presentation 01.11.21 with abdominal pain diagnosed as postoperative and rupturedleft ovarian cyst. Colectomy complication of hernia for which Dr. Karli Pascual performed large periumbilical and infraumbilical ventral hernia incisional hernia repair 06.28.21 with hospitalization until 06.30.21. Hernia repair complicated with formation of seroma causing abdominal pain and requiring placement of pigtail catheter 07.14.21 with negative cultures. Drain pulled 07.19.21. Colonoscopy 11.10.21 Dr. Pascual noting patent end-to-end ileo-colonic anastomosis. No specimens collected. Undergoing diet change keto/low carb. Prior to this she was having diarrhea withurgency and related incontinence. Will continue to have urgent loose stools withfood triggers. GERD she has been maintained on PPI 40mg for several years and this has been well controlled. PCP titrated down to 20mg with return of symptoms to include reflux and nocturnal burning which caused her to have coughing/choking that wakes her. ROS Const Constitutional: Positive for other (Denies other signs symptoms related to constitutional, HEENT,) ENT ENT: Positive for other (Endocrine, neurologic or psychologic.) Skin Skin: Positive for other (Integument, cardiovascular, pulmonary, GI, , musculoskeletal,) Endo Endocrine: Positive for other (Endocrine, neurologic or psychologic.) Aller/Imm Allergy/Immunologic: Positive for other (Nurses notes reviewed, agree other thanhow amended by my note.) Exam Const General: cooperative, healthy appearing, comfortable, no acute distress, well developed and well groomed Nutritional Appearance: average body habitus Orientation: alert, awake and oriented x3 GI Inspection: non-distended and no obesity Palpation: soft, no hepatosplenomegaly, not firm, no guarding and tender suprapubicly General: No CVA tenderness Quality Reporting Tobacco Screening ([facility] 138) Smoking Status: Never smoker Assessment and Plan Assessment and Plan (1) S/P right hemicolectomy: ?Status:?Chronic ?Comment: 2020 Dr. Gary ?Plan: Status post right hemicolectomy due to a very large tubular villous adenoma.? Her last colonoscopy approximately a year ago did not show of abnormalities at the site of anastomosis .? She can have a colonoscopy approximately a year. (2) GERD (gastroesophageal reflux disease): ?Status:?Acute ?Plan: Gastroesophageal reflux disease and should undergo an upper endoscopy for evaluation of Sarkar's esophagus due to the fact that she continues to take Protonix on a daily basis otherwise she has continued symptoms. (3) Personal history of colonic polyps: ?Status:?Resolved ?Plan: She should undergo genetic testing for HNP CC (4) Diarrhea: ?Status:?Acute ?Plan: The differential diagnosis for her diarrhea does include bile associated colitis, accelerated gastrocolic reflex, inflammatory bowel disease.? She will undergo biochemical testing and stool testing. I have examined the patient and the H&P has been reviewed. There are no clinical changes since date of exam. 02/16/23 0640 <Electronically signed by Pedrito Brock DO> Cosigner Signature (if applicable): CC: Dr. To Longoria DO; Pedrito Brock DO~ Signed [facility] Work Phone: History and physical note Author Pedrito Brock [facility] September 21, 2023 7:02am Note Date/Time September 21, 2023 7 :02am [facility] Medical Records Department [address] [place] [address] History & Physical Exam 09/21/23 0701 MR#: [id number] Acct: [id number] Name: BRICE GOMEZ Rep #:[id number] 2 : 1980 42 From: Pedrito Brock DO PCP: Dr. To Longoria DO Status:[facility] Location: [place] [address] History and Physical Date of Admission: 09/21/23 42 F who presents to the office today for PMH post COVID myocarditis; anxiety/depression; asthma; cystitis; SVT. [facility] righthemicolectomy ; left oophorectomy . FH colon cancer, maternal grandfather; esophageal cancer, paternal grandfather. Prior workup: ? EGD and colonoscopy 10.23.20 Dr. Anaya. EGD noting gastritis without specimens collected. ? Esophageal manometry, pH monitoring. Colonoscopy found likely malignant tumor of proximal ascending colon; sigmoid diverticulosis; nonbleeding internal hemorrhoids. 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 Recommend right hemicolectomy Right hemicolectomy 12.28.[address] Gary with 2 day hospitalization. [facility] presentation 01.11.21 with abdominal pain diagnosed as postoperative and rupturedleft ovarian cyst. Colectomy complication of hernia for which Dr. Karli Pascual performed large periumbilical and infraumbilical ventral hernia incisional hernia repair 06.28.21 with hospitalization until 06.30.21. Hernia repair complicated with formation of seroma causing abdominal pain and requiring placement of pigtail catheter 07.14.21 with negative cultures. Drain pulled 07.19.21. ? Colonoscopy 11.10.21 Dr. Pascual noting patent end-to-end ileo- colonic anastomosis. No specimens collected. *BGI established OV 12.06.22. Has been changed diet to keto/low carb which has been helpful in reducing diarrhea with urgency and related incontinence. GERD an issue but well maintain on PPI 40mg with titration downward resulting inrecurrence of symptoms. Plan biochemical workup and stool testing. EGD and colonoscopy; Brice chose to pursue EGD only. Biochemical ESR, CMP, CRP, AMA, ASM, FERNANDO comp, ANCA, celiac, IgGAM, EDDIE without pertinent abnormality. IgE L2, IBD suggestive of Crohn?s (atypical pANCA, AMCA) Stool study lactoferrin WNL Referred to Dr. Joyce for IgE level. Capsule endoscopy 01.30.23 noting stomach to have increased bile with associated erythema and irritation; small bowel focal erythema without ulceration or significant inflammation; IC valve noted to have edema. ? Azathioprine start EGD 02.16.23 Way deployed; irregular Zline 32cm without metaplasia; non- bleeding erosive gastropathy, gastritis; erythematous duodenopathy, Chikis gland hyperplasia. Biochemical CBC, CMP, LFT, Lipid without pertinent abnormality. 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 Low concern for immunodeficiency though will perform further biochemical testing approximately 02.19.23. OV 07.06.23 Reports that she has been doing very well without symptoms to addressat this time; Has been doing a keto day on/off and notes days with increased carbs cause her to have symptoms. Has been taking medication as prescribed. Needs to return to Dr. Isiah lehman. ROS Const Constitutional: Positive for fever(s) (feel like it), headache(s) (full pressure), sleep problems and change in appetite (eating less); No body ache, chills, fatigue or abnormal sleep pattern Eyes Eyes: No blurry vision, change in vision, double vision, irritation, discharge or dry eyes ENT ENT: Positive for sinus pressure, nasal discharge (green/yellow), post nasal drip, headache(s) (full pressure), hoarseness and sore throat; No abnormal hearing (not new or worsening from baseline), ear or mastoid pain, ear discharge, ear pressure, tinnitus, dizziness/vertigo, nosebleed/epistaxis, nasal congestion, sinus pain, facial pain, dental pain, difficulty swallowing, bad breath, lip swelling, neck pain, tongue swelling or throat swelling Resp Respiratory: Positive for cough Cough: Yes non-productive and shortness of breath (with cough); No change in phlegm color, chest congestion, hemoptysis, pain on inspiration, pain with cough, stridor or wheezing Cardio Cardiology: No chest pain at rest, chest pain with exertion, shortness of breath, dyspnea on exertion or lightheadedness Gastro GI: No abdominal pain, change in bowel habits or difficulty swallowing Genitourinary-Female: No difficulty urinating, burning urination, painful urination or urinary incontinence Musc Musculoskeletal: No neck pain Neuro Neurology: Positive for headache(s) (full pressure); No abnormal hearing (not new or worsening from baseline) Psych Psychiatric: No abnormal sleep pattern and Positive for change in appetite (eating less) Endo Endocrine: No fatigue Aller/Imm Allergy/Immunologic: No lip swelling, throat swelling, tongue swelling or wheezing Quality Reporting Tobacco Screening ([facility] 138) Smoking Status: Never smoker Assessment and Plan Assessment and Plan (1) Diarrhea: Status: Chronic Qualifiers: Diarrhea type: functional diarrhea Qualified Code(s): K59.1 - Functional diarrhea Plan: Her genetic testing had 1 marker positive that was extremely high for Crohn's disease. I think she has components of osmotic and secretory diarrhea. I thinkher osmotic diarrhea comes from her colonic resection resulting in less bile reabsorption. Also think she has a secretory diarrhea possibly secondary to inflammatory bowel disease. We will put her on azathioprine 50 mg in the morning and cholestyramine at night. She will follow-up in approximately 4 months. (2) S/P right hemicolectomy: Status: Chronic Comment: 2020 Dr. Gary Plan: Status post right hemicolectomy due to a very large tubular villous adenoma. Her last colonoscopy approximately a year ago did not show of abnormalities at the site of anastomosis . She can have a colonoscopy approximately a year. (3) GERD (gastroesophageal reflux disease): Status: Acute Plan: Nonerosive gastroesophageal reflux disease was seen on her upper endoscopy and confirmed by Way pH monitoring. Her DeMeester score was 8. She does respond very well to PPI therapy so we will continue that for now. When she undergoes her colonoscopy we will also perform an EGD because she is having refractory GERD symptoms and chest pain with a history of erosive esophagitis. (4) Personal history of colonic polyps: Status: Resolved Plan: She will undergo colonoscopy toward the end of this year in about 6 months from now. I have examined the patient and the H&P has been reviewed. There are no clinicalchanges since date of exam. 09/21/23 0702 <Electronically signed by Pedrito Brock DO> Cosigner Signature (if applicable): CC: Dr. To Longoria DO; Pedrito Brock DO~ Signed [facility] Work Phone: Reason for referral (narrative)* Diagnostic Procedure Only (Routine) - Pending Review Specialty Diagnoses / Procedures Referred By Ирина kelly Referred To Contact [facility] Diagnoses Encounter for screening mammogram for malignant neoplasm of breast Procedures JULIENNE SCREENING W ANDREAS SCREENING DIGITAL BREAST TOMOSYNTHESIS BI SCREENING MAMMOGRAPHY BI 2-VIEW BREAST INC CAD To Longoria DO [address] [place] [address] [facility] [address] [place] [address] Referral ID Status Reason Start Date Expiration Date Visits Requested Visits Authorized [id number] Pending Review Auto-Generat ed Referral 3 11/01/2024 1 1 [facility] for referral (narrative)* Diagnostic Procedure Only (Routine) - Pending Review Specialty Diagnoses / Procedures Referred By Ирина kelly Referred To Contact [facility] Diagnoses Acute bilateral low back pain with sciatica, sciatica laterality unspecified Procedures XR LUMBAR GENERAL 3V AP/LAT/L5-S1 RADEX SPINE LUMBOSACRAL 2/3 VIEWS Kimber Jorge APRN.PALS NURSE [address] [place] [address] [place] [id number] Referral ID Status Reason Start Date Expiration Date Visits Requested Visits Authorized [id number] Pending Review Auto-Generat ed Referral 05/06/2024 06/05/2025 1 1 * Physical Therapy (Routine) - Pending Review Specialty Diagnoses / Procedures Referred By Contac t Referred To Contact [facility] Diagnoses Acute bilateral low back pain with sciatica, sciatica laterality unspecified Procedures CONSULT TO PHYSICAL THERAPY PHYSICAL THERAPY EVALUATION HIGH COMPLEX 45 MINS Kimber Jorge APRN.PALS NURSE [address] [place] [address] [facility] [address] [address] Referral ID Status Reason Start Date Expiration Date Visits Requested Visits Authorized [id number] Pending Review Auto-Generat ed Referral 05/06/2024 05/06/2025 1 1 * Physical Therapy (Routine) - Pending Review Specialty Diagnoses / Procedures Referred By Contac t Referred To Contact [facility] Diagnoses Acute bilateral low back pain with sciatica, sciatica laterality unspecified Procedures CONSULT TO PHYSICAL THERAPY PHYSICAL THERAPY EVALUATION HIGH COMPLEX 45 MINS Kimber Jorge APRN.PALS NURSE [address] [place] [address] [facility] [address] [address] Referral ID Status Reason Start Date Expiration Date Visits Requested Visits Authorized [id number] Pending Review Auto-Generat ed Referral 05/06/2024 05/06/2025 1 1 [facility] for referral (narrative)* Outpatient Procedure (Routine) - New Request Specialty Diagnoses / Procedures Referred By Contac t Referred To Contact [facility] [place] Diagnoses Elevated blood pressure reading without diagnosis of hypertension Headache disorder Abnormal foot color Procedures PVR ANK PRESS [facility] NON-INVAS PHYSIOLOGIC STD EXTREMITY ART 2 LEVEL To Longoria DO [address] [place] [address] [id number] [place] [address] Referral ID Status Reason Start Date Expiration Date Visits Requested Visits Authorized [id number] New Request Auto-Generat ed Referral 09/20/2024 09/20/2025 1 1 * Outpatient Procedure (Routine) - New Request Specialty Diagnoses / Procedures Referred By Contac t Referred To Contact [facility] Diagnoses Elevated blood pressure reading without diagnosis of hypertension Headache disorder Procedures US RENAL ARTERY [facility] DUP-SCAN ARTL JEFFREY ABDL/PEL/SCROT&/RPR ORGN COM To Longoria, DO [address] [place] [address] [id number] [place] [address] Referral ID Status Reason Start Date Expiration Date Visits Requested Visits Authorized [id number] New Request Auto-Generat ed Referral 09/20/2024 09/20/2025 1 1 * Outpatient Procedure (Routine) - New Request Specialty Diagnoses / Procedures Referred By Contac t Referred To Contact [facility] Diagnoses Elevated blood pressure reading without diagnosis of hypertension Procedures US CAROTID ARTERIES [facility] DUPLEX SCAN EXTRACRANIAL ART COMPL BI STUDY To Longoria DO [address] [place] [address] [facility] [address] [place] [address] Referral ID Status Reason Start Date Expiration Date Visits Requested Visits Authorized [id number] New Request Auto-Generat ed Referral 09/20/2024 09/20/2025 1 1 * Outpatient Procedure (Routine) - New Request Specialty Diagnoses / Procedures Referred By Ирина kelly Referred To Contact [facility] Diagnoses Elevated blood pressure reading without diagnosis of hypertension Procedures ECHO ECHO TTHRC R-T 2D W/WOM-MODE COMPL SPEC&COLR D To Longoria DO [address] [place] [address] [facility] [place] [address] [place] [address] Referral ID Status Reason Start Date Expiration Date Visits Requested Visits Authorized [id number] New Request Auto-Generat ed Referral 09/20/2024 09/20/[address] [facility]No reason for referral information [facility]WCleveland [facility] Work Phone: Summary Purpose Family History No Family History Records Found Grandmother Name Dates Details Family history of malignant neoplasm of breast(V16.3, Z80.3) Status:Active Grandfather Name Dates Details Family history of malignant neoplasm of colon(V16.0, Z80.0) Status:Active Family history of malignant neoplasm of esophagus(V16.0, Z80.0) Status:Active Relationship Condition Age at Onset Recorded Date/T kaden grandmother Atrial fibrillation Unknown Hypertension Unknown mother Hypertension Unknown Mitral valve prolapse Unknown grandfather Malignant neoplasm Unknown Advance Directives No Advanced Directives Records FoundDocuments on File Type Date Recorded 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 Advance Directive(s) 03/24/2020 11:58 PM Latest Code Status on File Code Status Date Activated Date Inactivated Comments Full Code 03/31/2020 8:30 AM 04/06/2020 9:57 PM Full Code Order Discussed With: Patient Full Code 03/25/2020 9:19 AM 03/31/2020 8:30 AM Advance Directive Response Recorded Date/ Time Advance Directives No May 16 10:34am Living Will No November 08 11:03am Power of Florist No November 08, 2021 11:03am Latest Code Status on File Code Status Date Activated Date Inactivated Comments Full Code 03/31/2020 8:30 AM 04/06/2020 9:57 PM Full Code 03/25/2020 9:19 AM 03/31/2020 8:30 AM Advance Directive Response Recorded Date/ Time Advance Directives No May 16 9:34am Living Will No November 08, 2 021 10:03am Power of Florist No November 08, 2021 10:03am Advance Directive Response Recorded Date/ Time Advance Directives No May 16 9:34am Living Will No November 04, 2 022 1:40pm Power of Florist No November 04, 2022 1:40pm Advance Directive Response Recorded Date/ Time Advance Directives No May 16 10:34am Living Will No November 04, 022 2:40pm Power of Florist No November 04, 2022 2:40pm Advance Directive Response Recorded Date/ Time Name of Medical Power of Florist [facility] February 15, 2023 7:01am Advance Directives No May 16 10:34am Living Will Yes February 15, 2023 7:01am Power of Florist Yes February 15 7:01am Advance Directive Response Recorded Date/ Time Name of Medical Power of Florist [facility] February 15, 2023 7:01am Advance Directives No May 16 10:34am Living Will Yes February 22, 2023 1:35pm Power of Florist Yes February 22 1:35pm Latest Code Status on File Code Status Date Activated Date Inactivated Comments Full Code 03/31/2020 8:30 AM 04/06/2020 9:57 PM Question Answer Comments Full Code Order Discussed With: Patient Code Status History Code Status Date Activated Date Inactivated Comments Full Code 03/25/2020 9:19 AM 03/31/2020 8:30 AM Question Answer Comments Full Code Order Discussed With: Patient Advance Directive Response Recorded Date/ Time Advance Directives No May 16 10:34am Living Will Yes February 22, 2023 1:35pm Power of Florist Yes February 22 1:35pm Latest Code Status on File Code Status Date Activated Date Inactivated Comments Full Code 03/31/2020 8:30 AM 04/06/2020 9:57 PM Question Answer Comments Full Code Order Discussed With: Patient Code Status History Code Status Date Activated Date Inactivated Comments Full Code 03/25/2020 9:19 AM 03/31/2020 8:30 AM Question Answer Comments Full Code Order Discussed With: Patient Advance Directive Response Recorded Date/ Time Name of Medical Power of Florist ON FILE September 14, 2023 1:51pm Advance Directives No May 16 10:34am Living Will Yes September 14 1:51pm Power of Florist Yes September 14, 2023 1:51pm Latest Code Status on File Code Status Date Activated Date Inactivated Comments Full Code 03/31/2020 8:30 AM 04/06/2020 9:57 PM Question Answer Comments Full Code Order Discussed With: Patient Code Status History Code Status Date Activated Date Inactivated Comments Full Code 03/25/2020 9:19 AM 03/31/2020 8:30 AM Question Answer Comments Full Code Order Discussed With: Patient Advance Directive Response Recorded Date/ Time Name of Medical Power of Florist ON FILE September 14, 2023 12:51pm Advance Directives No May 16 9:34am Living Will Yes September 14 12:51pm Power of Florist Yes September 14, 2023 12:51pm Advance Directive Response Recorded Date/ Time Name of Medical Power of Florist ON FILE September 14, 2023 12:51pm Name of Medical Power of Florist November 08, 2023 1:34pm Advance Directives No May 16 9:34am Living Will Yes November 08, 2 023 1:34pm Power of Florist Yes November 08, 2023 1:34pm Advance Directive Response Recorded Date/ Time Name of Medical Power of Florist November 08, 2023 1:34pm Advance Directives No May 16 9:34am Living Will Yes November 08, 2 023 1:34pm Power of Florist Yes November 08, 2023 1:34pm Date Activated Date Inactivated Comments 03/31/2020 8:30 AM 04/06/2020 9:57 PM Question Answer Comments Full Code Order Discussed With: Patient Date Activated Date Inactivated Comments 03/25/2020 9:19 AM 03/31/2020 8:30 AM Question Answer Comments Full Code Order Discussed With: Patient Date Activated Date Inactivated Comments 03/31/2020 8:30 AM 04/06/2020 9:57 PM Question Answer Comments Full Code Order Discussed With: Patient Date Activated Date Inactivated Comments 03/25/2020 9:19 AM 03/31/2020 8:30 AM Question Answer Comments Full Code Order Discussed With: Patient Advance Directive Response Recorded Date/ Time Living Will Yes May 13, 2024 9:23am Do you have a Healthcare Power of Florist? Yes May 13, 2024 9:23am Advance Directives No April 24 10:42am Advance Directive Response Recorded Date/ Time Advance Directives No April 24 10:42am Hospital Course Note HNO ID: [id number] Author: Dennis Godfrey MD Service: Hospital Medicine [...] Antony Godfrey, * Primary Care Provider: To Longoria DO My Medical Team Members: Treatment Team: Attending Provider: Antony Godfrey MD Consulting: Elian Philip Consulting: (more content not included)... 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 Chief Complaint 3 M FU TINNITIUS, ASSYMMETRIC HEARING LOSS LT, ATTN: IAC Reason for Visit Myocarditis due to 2 019-nCoV Tachycardia Chief Complaint Urinary tract infect ion Screening BMT Consult E ORDERS INT LABSPEC Reason for Visit Cystitis Urinary tract infection Diarrhea GERD (gastroesophageal reflux disease) S/P right hemicolectomy Personal history of colonic polyps Chief Complaint Urinary tract infect ion Screening BMT Consult E ORDERS INT LABSPEC B99.9 Reason for Visit Cystitis Urinary tract infection Diarrhea GERD (gastroesophageal reflux disease) S/P right hemicolectomy Personal history of colonic polyps Chief Complaint Urinary tract infect ion Screening BMT Consult E ORDERS INT LABSPEC B99.9 Cap Endo Reason for Visit Cystitis Urinary tract infection Diarrhea GERD (gastroesophageal reflux disease) S/P right hemicolectomy Personal history of colonic polyps Chief Complaint Screening BMT Consult E ORDERS INT LABSPEC B99.9 Cap Endo PNEUMOCCAL 2 WK FU Reason for Visit Diarrhea GERD (gastroesophageal reflux disease) S/P right hemicolectomy Personal history of colonic polyps Diarrhea GERD (gastroesophageal reflux disease) S/P right hemicolectomy Personal history of colonic polyps Chief Complaint PNEUMOCCAL 2 WK FU E-ORDER INT LAB Reason for Visit Diarrhea GERD (gastroesophageal reflux disease) S/P right hemicolectomy Personal history of colonic polyps Chief Complaint COUGH, CONGESTION 4 MO FU E ORDERS 1 Y FU MARY PFM painful intercourse, discuss vaginal dryness E ORDERS Reason for Visit Maxillary sinusitis GERD (gastroesophageal reflux disease) Diarrhea Personal history of colonic polyps 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 Tachycardia Atrophic vaginitis Hot flashes Chief Complaint E ORDERS 1 Y FU MARY PFM painful intercourse, discuss vaginal dryness E ORDERS Abscess IN RIGHT ARM PIT Screening Reason for Visit Myocarditis due to 2 019-nCoV Tachycardia Atrophic vaginitis Hot flashes Sebaceous cyst of right axilla Chief Complaint Abscess IN RIGHT ARM PIT Screening E-ORDER 6 MO FU E ORDERS Reason for Visit Sebaceous cyst of ri ght axilla GERD (gastroesophageal reflux disease) Diarrhea Personal history of colonic polyps Chief Complaint Abscess IN RIGHT ARM PIT Screening E-ORDER 6 MO FU E ORDERS E-ORDER Reason for Visit Sebaceous cyst of ri ght axilla GERD (gastroesophageal reflux disease) Diarrhea Personal history of colonic polyps Chief Complaint Screening E-ORDER 6 MO FU E ORDERS E-ORDER e orders Reason for Visit GERD (gastroesophage al reflux disease) Diarrhea Personal history of colonic polyps Chief Complaint 4 MO FU E ORDERS 1 Y FU MARY PFM painful intercourse, discuss vaginal dryness E ORDERS Abscess IN RIGHT ARM PIT Reason for Visit GERD (gastroesophage al reflux disease) Diarrhea Personal history of colonic polyps Myocarditis due to 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 Tachycardia Atrophic vaginitis Hot flashes Sebaceous cyst of right axilla Chief Complaint Admit Date 3 M FU December 12, 2024 1 2:56pm 4 wk med check December 16, 2024 1 0:59am pill cam December 25, 2024 8 :27am CROHNS January 02, 2025 8:00am R THUMB LACERATION January 08, 2025 4:14pm 3 M FU February 20, 2025 1:57 pm CERVICAL SPINE PAIN March 03, 2025 12: 37pm Reason for Visit Admit Date GERD (gastroesophageal reflux disease) J anuary 2024 12:56pm Diarrhea December 12, 2024 1 2:56pm Crohn's disease December 12, 2024 1 2:56pm Personal history of colonic polyps Janeliza ry 2024 12:56pm S/P right hemicolectomy December 12 12:56pm Climacteric December 16, 2024 1 0:59am Laceration of right thumb January 08, 2025 4:14pm GERD (gastroesophageal reflux disease) A pril 2024 1:57pm Diarrhea February 20, 2025 1:57 pm Crohn's disease February 20, 2025 1:57 pm Personal history of colonic polyps February 20, 2025 1:57pm S/P right hemicolectomy February 20, 2025 1:57pm Chief Complaint Admit Date 3 M FU February 20, 2025 1:57 pm CERVICAL SPINE PAIN March 03, 2025 12: 37pm SCREENING May 06, 2025 12:3 9pm Reason for Visit Admit Date GERD (gastroesophageal reflux disease) A pril 2024 1:57pm Diarrhea February 20, 2025 1:57 pm Crohn's disease February 20, 2025 1:57 pm Personal history of colonic polyps February 20, 2025 1:57pm S/P right hemicolectomy February 20, 2025 1:57pm Chief Complaint Admit Date 3 M FU February 20, 2025 1:57 pm CERVICAL SPINE PAIN March 03, 2025 12: 37pm SCREENING May 06, 2025 12:3 9pm F/U hormone levels May 16, 2025 3:34 pm Reason for Visit Admit Date GERD (gastroesophageal reflux disease) A pril 2024 1:57pm Diarrhea February 20, 2025 1:57 pm Crohn's disease February 20, 2025 1:57 pm Personal history of colonic polyps February 20, 2025 1:57pm S/P right hemicolectomy February 20, 2025 1:57pm Climacteric May 16, 2025 3:34 pm Chief Complaint Admit Date CERVICAL SPINE PAIN March 03, 2025 12: 37pm SCREENING May 06, 2025 12:3 9pm F/U hormone levels May 16, 2025 3:34 pm 4 M FU June 25, 2025 2:2 0pm Reason for Visit Admit Date Climacteric May 16, 2025 3:34 pm Chief Complaint Admit Date SCREENING May 06, 2025 12:3 9pm F/U hormone levels May 16, 2025 3:34 pm 4 M FU June 25, 2025 2:2 0pm CONCERN FOR SINUS INFECTION July 06, 2025 10:01am Reason for Visit Admit Date Climacteric May 16, 2025 3:34 pm GERD (gastroesophageal reflux disease) A ugust 2024 2:20pm Diarrhea June 25, 2025 2:2 0pm Crohn's disease June 25, 2025 2:2 0pm Personal history of colonic polyps Augus t 2024 2:20pm S/P right hemicolectomy June 25, 2025 2:20pm Maxillary sinusitis July 06, 2025 10 :01am Reason for Referral Specialty Diagnoses / Procedures Referred By Ирина kelly Referred To Contact Diagnoses Obesity, Class I, BMI 30-34.9 To Longoria DO [address] [place] [address] Referral ID Status Reason Start Date Expiration Date V isits Requested Visits Authorized [id number] Pending Review 1 1 Specialty Diagnoses / Procedures Referred By Ирина kelly Referred To Contact [facility] Diagnoses Encounter for screening mammogram for malignant neoplasm of breast Procedures JULIENNE SCREENING W ANDREAS SCREENING DIGITAL BREAST TOMOSYNTHESIS BI SCREENING MAMMOGRAPHY BI 2-VIEW BREAST INC CAD To Longoria, DO [address] [place] [address] [facility] [address] [place] [address] Referral ID Status Reason Start Date Expiration Date Visits Requested Visits Authorized [id number] Pending Review Auto-Generat ed Referral 08/10/2022 09/09/2023 1 1 Specialty Diagnoses / Procedures Referred By Contac t Referred To Contact [facility] Diagnoses HLA B27 (HLA B27 positive) Procedures HLA-B27 PCR HLA I LOW RESOLUTION ONE ANTIGEN EQUIVALENT EACH To Longoria, DO [address] [place] [address] [facility] [address] [place] [address] Referral ID Status Reason Start Date Expiration Date Visits Requested Visits Authorized [id number] Authorized PCP Requested Referral Auto-Generate d Referral 01/11/2023 04/11/2023 1 1 Specialty Diagnoses / Procedures Referred By Ирина t Referred To Contact [facility] Diagnoses Acute bilateral low back pain with bilateral sciatica Radiculopathy of lumbar region Paresthesia of skin Pars defect of lumbar spine Procedures MRI LUMBAR SPINE WO IVCON MRI SPINAL CANAL LUMBAR W/O CONTRAST MATERIAL To Longoria, DO [address] [place] [address] Mr [id number] Referral ID Status Reason Start Date Expiration Date Visits Requested Visits Authorized [id number] Pending Review Auto-Generat ed Referral 05/14/2024 06/13/2025 1 1 Specialty Diagnoses / Procedures Referred By Julio Cac t Referred To Contact [facility] Diagnoses Acute bilateral low back pain with bilateral sciatica Procedures CONSULT TO PHYSICAL THERAPY PHYSICAL THERAPY EVALUATION HIGH COMPLEX 45 MINS To Longoria DO [address] [place] [address] [facility] [place] [address] [place] [address] Referral ID Status Reason Start Date Expiration Date Visits Requested Visits Authorized [id number] Pending Review Auto-Generat ed Referral 05/17/2024 05/17/2025 1 1 Specialty Diagnoses / Procedures Referred By Ирина t Referred To Contact Pain Management Diagnoses Lumbosacral radiculopathy at L5 DDD (degenerative disc disease), lumbar Osteoarthritis of spine with radiculopathy, lumbar region Procedures CONSULT TO PAIN MGT OFFICE/OUTPATIENT [facility] MDM 60 MINUTES To Longoria, DO [address] [place] [address] Referral ID Status Reason Start Date Expiration Date Visits Requested Visits Authorized [id number] Pending Review PCP Requested Referral 06/03/2024 06/03/2025 1 1 Health Concerns Infection Onset Date Last Indicated Resolved Time COVID-19 Rule-Out 10/27/2022 10/27/2022 Infection Onset Date Last Indicated Resolved Time COVID-19 Rule-Out 10/27/2022 10/27/2022 10/27/2022 7:16 PM EST Additional Source Comments INFORMATION SOURCE (unrecogn ized section and content) DATE CREATED AUTHOR 10/05/2020 [facility] DATE CREATED AUTHOR AUTHOR'S ORGANIZ ATION 03/20/2021 [employer] DATE CREATED AUTHOR AUTHOR'S ORGANIZ ATION 05/28/2021 [facility] ical Center DATE CREATED AUTHOR AUTHOR'S ORGANIZ ATION 06/19/2021 [facility] DATE CREATED AUTHOR AUTHOR'S ORGANIZ ATION 08/08/2024 [facility] DATE CREATED AUTHOR AUTHOR'S ORGANIZ ATION 07/07/2025 [facility] DATE CREATED AUTHOR AUTHOR'S ORGANIZ ATION 07/20/2025 [facility] Source Comments (unrecognize d section and content) In the event this informatio n is protected by the Federal Confidentiality of Alcohol and Drug Abuse Patient Records regulations: The Federal rules restrict any use of the information to criminally investigate or prosecute any alcohol or drug abuse patient.[facility] the event this information is protected by the Federal Confidentiality of Alcohol and Drug Abuse Patient Records regulations: The Federal rules restrict any use of the information to criminally investigate or prosecute any alcohol or drug abuse patient.[facility] the event this information is protected by the Federal Confidentiality of Alcohol and Drug Abuse Patient Records regulations: The Federal rules restrict any use of the information to criminally investigate or prosecute any alcohol or drug abuse patient.[facility] the event this information is protected by the Federal Confidentiality of Alcohol and Drug Abuse Patient Records regulations: The Federal rules restrict any use of the information to criminally investigate or prosecute any alcohol or drug abuse patient.[facility] the event this information is protected by the Federal Confidentiality of Alcohol and Drug Abuse Patient Records regulations: The Federal rules restrict any use of the information to criminally investigate or prosecute any alcohol or drug abuse patient.[facility] the event this information is protected by the Federal Confidentiality of Alcohol and Drug Abuse Patient Records regulations: The Federal rules restrict any use of the information to criminally investigate or prosecute any alcohol or drug abuse patient.[facility] the event this information is protected by the Federal Confidentiality of Alcohol and Drug Abuse Patient Records regulations: The Federal rules restrict any use of the information to criminally investigate or prosecute any alcohol or drug abuse patient.[facility] the event this information is protected by the Federal Confidentiality of Alcohol and Drug Abuse Patient Records regulations: The Federal rules restrict any use of the information to criminally investigate or prosecute any alcohol or drug abuse patient.[facility] the event this information is protected by the Federal Confidentiality of Alcohol and Drug Abuse Patient Records regulations: The Federal rules restrict any use of the information to criminally investigate or prosecute any alcohol or drug abuse patient.[facility]In the event this information is protected by the Federal Confidentiality of Alcohol and Drug Abuse Patient Records regulations: The Federal rules restrict any use of the information to criminally investigate or prosecute any alcohol or drug abuse patient.[facility]In the event this information is protected by the Federal Confidentiality of Alcohol and Drug Abuse Patient Records regulations: The Federal rules restrict any use of the information to criminally investigate or prosecute any alcohol or drug abuse patient.[facility]In the event this information is protected by the Federal Confidentiality of Alcohol and Drug Abuse Patient Records regulations: The Federal rules restrict any use of the information to criminally investigate or prosecute any alcohol or drug abuse patient.[facility]In the event this information is protected by the Federal Confidentiality of Alcohol and Drug Abuse Patient Records regulations: The Federal rules restrict any use of the information to criminally investigate or prosecute any alcohol or drug abuse patient.[facility] HospitalIn the event this information is protected by the Federal Confidentiality of Alcohol and Drug Abuse Patient Records regulations: The Federal rules restrict any use of the information to criminally investigate or prosecute any alcohol or drug abuse patient.[facility] the event this information is protected by the Federal Confidentiality of Alcohol and Drug Abuse Patient Records regulations: The Federal rules restrict any use of the information to criminally investigate or prosecute any alcohol or drug abuse patient.[facility]In the event this information is protected by the Federal Confidentiality of Alcohol and Drug Abuse Patient Records regulations: The Federal rules restrict any use of the information to criminally investigate or prosecute any alcohol or drug abuse patient.[facility] HospitalIn the event this information is protected by the Federal Confidentiality of Alcohol and Drug Abuse Patient Records regulations: The Federal rules restrict any use of the information to criminally investigate or prosecute any alcohol or drug abuse patient.[facility]In the event this information is protected by the Federal Confidentiality of Alcohol and Drug Abuse Patient Records regulations: The Federal rules restrict any use of the information to criminally investigate or prosecute any alcohol or drug abuse patient.[facility] HospitalIn the event this information is protected by the Federal Confidentiality of Alcohol and Drug Abuse Patient Records regulations: The Federal rules restrict any use of the information to criminally investigate or prosecute any alcohol or drug abuse patient.[facility] HospitalIn the event this information is protected by the Federal Confidentiality of Alcohol and Drug Abuse Patient Records regulations: The Federal rules restrict any use of the information to criminally investigate or prosecute any alcohol or drug abuse patient.[facility] HospitalIn the event this information is protected by the Federal Confidentiality of Alcohol and Drug Abuse Patient Records regulations: The Federal rules restrict any use of the information to criminally investigate or prosecute any alcohol or drug abuse patient.[facility]In the event this information is protected by the Federal Confidentiality of Alcohol and Drug Abuse Patient Records regulations: The Federal rules restrict any use of the information to criminally investigate or prosecute any alcohol or drug abuse patient.[facility] HospitalIn the event this information is protected by the Federal Confidentiality of Alcohol and Drug Abuse Patient Records regulations: The Federal rules restrict any use of the information to criminally investigate or prosecute any alcohol or drug abuse patient.[facility]In the event this information is protected by the Federal Confidentiality of Alcohol and Drug Abuse Patient Records regulations: The Federal rules restrict any use of the information to criminally investigate or prosecute any alcohol or drug abuse patient.[facility]In the event this information is protected by the Federal Confidentiality of Alcohol and Drug Abuse Patient Records regulations: The Federal rules restrict any use of the information to criminally investigate or prosecute any alcohol or drug abuse patient.[facility]In the event this information is protected by the Federal Confidentiality of Alcohol and Drug Abuse Patient Records regulations: The Federal rules restrict any use of the information to criminally investigate or prosecute any alcohol or drug abuse patient.[facility] HospitalIn the event this information is protected by the Federal Confidentiality of Alcohol and Drug Abuse Patient Records regulations: The Federal rules restrict any use of the information to criminally investigate or prosecute any alcohol or drug abuse patient.[facility]In the event this information is protected by the Federal Confidentiality of Alcohol and Drug Abuse Patient Records regulations: The Federal rules restrict any use of the information to criminally investigate or prosecute any alcohol or drug abuse patient.[facility]In the event this information is protected by the Federal Confidentiality of Alcohol and Drug Abuse Patient Records regulations: The Federal rules restrict any use of the information to criminally investigate or prosecute any alcohol or drug abuse patient.[facility]In the event this information is protected by the Federal Confidentiality of Alcohol and Drug Abuse Patient Records regulations: The Federal rules restrict any use of the information to criminally investigate or prosecute any alcohol or drug abuse patient.[facility] HospitalIn the event this information is protected by the Federal Confidentiality of Alcohol and Drug Abuse Patient Records regulations: The Federal rules restrict any use of the information to criminally investigate or prosecute any alcohol or drug abuse patient.[facility]In the event this information is protected by the Federal Confidentiality of Alcohol and Drug Abuse Patient Records regulations: The Federal rules restrict any use of the information to criminally investigate or prosecute any alcohol or drug abuse patient.[facility]In the event this information is protected by the Federal Confidentiality of Alcohol and Drug Abuse Patient Records regulations: The Federal rules restrict any use of the information to criminally investigate or prosecute any alcohol or drug abuse patient.[facility]In the event this information is protected by the Federal Confidentiality of Alcohol and Drug Abuse Patient Records regulations: The Federal rules restrict any use of the information to criminally investigate or prosecute any alcohol or drug abuse patient.[facility]In the event this information is protected by the Federal Confidentiality of Alcohol and Drug Abuse Patient Records regulations: The Federal rules restrict any use of the information to criminally investigate or prosecute any alcohol or drug abuse patient.[facility]In the event this information is protected by the Federal Confidentiality of Alcohol and Drug Abuse Patient Records regulations: The Federal rules restrict any use of the information to criminally investigate or prosecute any alcohol or drug abuse patient.[facility] HospitalIn the event this information is protected by the Federal Confidentiality of Alcohol and Drug Abuse Patient Records regulations: The Federal rules restrict any use of the information to criminally investigate or prosecute any alcohol or drug abuse patient.[facility]In the event this information is protected by the Federal Confidentiality of Alcohol and Drug Abuse Patient Records regulations: The Federal rules restrict any use of the information to criminally investigate or prosecute any alcohol or drug abuse patient.[facility]In the event this information is protected by the Federal Confidentiality of Alcohol and Drug Abuse Patient Records regulations: The Federal rules restrict any use of the information to criminally investigate or prosecute any alcohol or drug abuse patient.[facility]In the event this information is protected by the Federal Confidentiality of Alcohol and Drug Abuse Patient Records regulations: The Federal rules restrict any use of the information to criminally investigate or prosecute any alcohol or drug abuse patient.[facility]In the event this information is protected by the Federal Confidentiality of Alcohol and Drug Abuse Patient Records regulations: The Federal rules restrict any use of the information to criminally investigate or prosecute any alcohol or drug abuse patient.[facility] HospitalIn the event this information is protected by the Federal Confidentiality of Alcohol and Drug Abuse Patient Records regulations: The Federal rules restrict any use of the information to criminally investigate or prosecute any alcohol or drug abuse patient.[facility] HospitalIn the event this information is protected by the Federal Confidentiality of Alcohol and Drug Abuse Patient Records regulations: The Federal rules restrict any use of the information to criminally investigate or prosecute any alcohol or drug abuse patient.[facility] HospitalIn the event this information is protected by the Federal Confidentiality of Alcohol and Drug Abuse Patient Records regulations: The Federal rules restrict any use of the information to criminally investigate or prosecute any alcohol or drug abuse patient.[facility]In the event this information is protected by the Federal Confidentiality of Alcohol and Drug Abuse Patient Records regulations: The Federal rules restrict any use of the information to criminally investigate or prosecute any alcohol or drug abuse patient.[facility] HospitalIn the event this information is protected by the Federal Confidentiality of Alcohol and Drug Abuse Patient Records regulations: The Federal rules restrict any use of the information to criminally investigate or prosecute any alcohol or drug abuse patient.[facility] HospitalIn the event this information is protected by the Federal Confidentiality of Alcohol and Drug Abuse Patient Records regulations: The Federal rules restrict any use of the information to criminally investigate or prosecute any alcohol or drug abuse patient.[facility] HospitalIn the event this information is protected by the Federal Confidentiality of Alcohol and Drug Abuse Patient Records regulations: The Federal rules restrict any use of the information to criminally investigate or prosecute any alcohol or drug abuse patient.[facility]In the event this information is protected by the Federal Confidentiality of Alcohol and Drug Abuse Patient Records regulations: The Federal rules restrict any use of the information to criminally investigate or prosecute any alcohol or drug abuse patient.[facility]In the event this information is protected by the Federal Confidentiality of Alcohol and Drug Abuse Patient Records regulations: The Federal rules restrict any use of the information to criminally investigate or prosecute any alcohol or drug abuse patient.[facility]In the event this information is protected by the Federal Confidentiality of Alcohol and Drug Abuse Patient Records regulations: The Federal rules restrict any use of the information to criminally investigate or prosecute any alcohol or drug abuse patient.[facility]In the event this information is protected by the Federal Confidentiality of Alcohol and Drug Abuse Patient Records regulations: The Federal rules restrict any use of the information to criminally investigate or prosecute any alcohol or drug abuse patient.[facility]In the event this information is protected by the Federal Confidentiality of Alcohol and Drug Abuse Patient Records regulations: The Federal rules restrict any use of the information to criminally investigate or prosecute any alcohol or drug abuse patient.[facility]In the event this information is protected by the Federal Confidentiality of Alcohol and Drug Abuse Patient Records regulations: The Federal rules restrict any use of the information to criminally investigate or prosecute any alcohol or drug abuse patient.[facility]In the event this information is protected by the Federal Confidentiality of Alcohol and Drug Abuse Patient Records regulations: The Federal rules restrict any use of the information to criminally investigate or prosecute any alcohol or drug abuse patient.[facility]In the event this information is protected by the Federal Confidentiality of Alcohol and Drug Abuse Patient Records regulations: The Federal rules restrict any use of the information to criminally investigate or prosecute any alcohol or drug abuse patient.[facility]In the event this information is protected by the Federal Confidentiality of Alcohol and Drug Abuse Patient Records regulations: The Federal rules restrict any use of the information to criminally investigate or prosecute any alcohol or drug abuse patient.[facility]In the event this information is protected by the Federal Confidentiality of Alcohol and Drug Abuse Patient Records regulations: The Federal rules restrict any use of the information to criminally investigate or prosecute any alcohol or drug abuse patient.[facility]In the event this information is protected by the Federal Confidentiality of Alcohol and Drug Abuse Patient Records regulations: The Federal rules restrict any use of the information to criminally investigate or prosecute any alcohol or drug abuse patient.[facility]In the event this information is protected by the Federal Confidentiality of Alcohol and Drug Abuse Patient Records regulations: The Federal rules restrict any use of the information to criminally investigate or prosecute any alcohol or drug abuse patient.[facility]In the event this information is protected by the Federal Confidentiality of Alcohol and Drug Abuse Patient Records regulations: The Federal rules restrict any use of the information to criminally investigate or prosecute any alcohol or drug abuse patient.[facility]In the event this information is protected by the Federal Confidentiality of Alcohol and Drug Abuse Patient Records regulations: The Federal rules restrict any use of the information to criminally investigate or prosecute any alcohol or drug abuse patient.[facility]In the event this information is protected by the Federal Confidentiality of Alcohol and Drug Abuse Patient Records regulations: The Federal rules restrict any use of the information to criminally investigate or prosecute any alcohol or drug abuse patient.[facility] HospitalIn the event this information is protected by the Federal Confidentiality of Alcohol and Drug Abuse Patient Records regulations: The Federal rules restrict any use of the information to criminally investigate or prosecute any alcohol or drug abuse patient.[facility] the event this information is protected by the Federal Confidentiality of Alcohol and Drug Abuse Patient Records regulations: The Federal rules restrict any use of the information to criminally investigate or prosecute any alcohol or drug abuse patient.[facility]In the event this information is protected by the Federal Confidentiality of Alcohol and Drug Abuse Patient Records regulations: The Federal rules restrict any use of the information to criminally investigate or prosecute any alcohol or drug abuse patient.[facility]In the event this information is protected by the Federal Confidentiality of Alcohol and Drug Abuse Patient Records regulations: The Federal rules restrict any use of the information to criminally investigate or prosecute any alcohol or drug abuse patient.[facility]In the event this information is protected by the Federal Confidentiality of Alcohol and Drug Abuse Patient Records regulations: The Federal rules restrict any use of the information to criminally investigate or prosecute any alcohol or drug abuse patient.[facility]In the event this information is protected by the Federal Confidentiality of Alcohol and Drug Abuse Patient Records regulations: The Federal rules restrict any use of the information to criminally investigate or prosecute any alcohol or drug abuse patient.[facility]In the event this information is protected by the Federal Confidentiality of Alcohol and Drug Abuse Patient Records regulations: The Federal rules restrict any use of the information to criminally investigate or prosecute any alcohol or drug abuse patient.[facility]In the event this information is protected by the Federal Confidentiality of Alcohol and Drug Abuse Patient Records regulations: The Federal rules restrict any use of the information to criminally investigate or prosecute any alcohol or drug abuse patient.[facility]In the event this information is protected by the Federal Confidentiality of Alcohol and Drug Abuse Patient Records regulations: The Federal rules restrict any use of the information to criminally investigate or prosecute any alcohol or drug abuse patient.[facility]In the event this information is protected by the Federal Confidentiality of Alcohol and Drug Abuse Patient Records regulations: The Federal rules restrict any use of the information to criminally investigate or prosecute any alcohol or drug abuse patient.[facility] HospitalIn the event this information is protected by the Federal Confidentiality of Alcohol and Drug Abuse Patient Records regulations: The Federal rules restrict any use of the information to criminally investigate or prosecute any alcohol or drug abuse patient.[facility] HospitalIn the event this information is protected by the Federal Confidentiality of Alcohol and Drug Abuse Patient Records regulations: The Federal rules restrict any use of the information to criminally investigate or prosecute any alcohol or drug abuse patient.[facility] HospitalIn the event this information is protected by the Federal Confidentiality of Alcohol and Drug Abuse Patient Records regulations: The Federal rules restrict any use of the information to criminally investigate or prosecute any alcohol or drug abuse patient.[facility] HospitalIn the event this information is protected by the Federal Confidentiality of Alcohol and Drug Abuse Patient Records regulations: The Federal rules restrict any use of the information to criminally investigate or prosecute any alcohol or drug abuse patient.[facility] HospitalIn the event this information is protected by the Federal Confidentiality of Alcohol and Drug Abuse Patient Records regulations: The Federal rules restrict any use of the information to criminally investigate or prosecute any alcohol or drug abuse patient.[facility] HospitalIn the event this information is protected by the Federal Confidentiality of Alcohol and Drug Abuse Patient Records regulations: The Federal rules restrict any use of the information to criminally investigate or prosecute any alcohol or drug abuse patient.[facility] HospitalIn the event this information is protected by the Federal Confidentiality of Alcohol and Drug Abuse Patient Records regulations: The Federal rules restrict any use of the information to criminally investigate or prosecute any alcohol or drug abuse patient.[facility] HospitalIn the event this information is protected by the Federal Confidentiality of Alcohol and Drug Abuse Patient Records regulations: The Federal rules restrict any use of the information to criminally investigate or prosecute any alcohol or drug abuse patient.[facility] HospitalIn the event this information is protected by the Federal Confidentiality of Alcohol and Drug Abuse Patient Records regulations: The Federal rules restrict any use of the information to criminally investigate or prosecute any alcohol or drug abuse patient.[facility] HospitalIn the event this information is protected by the Federal Confidentiality of Alcohol and Drug Abuse Patient Records regulations: The Federal rules restrict any use of the information to criminally investigate or prosecute any alcohol or drug abuse patient.[facility] Reason for Visit (unrecogniz ed section and content) Reason Comments Orders Reason Onset Date Comments Refill Request 03/05/2022 Reason Onset Date Comments Refill Request 03/08/2022 Reason Comments Medication Request copied from [employer] Reason Comments Anxiety Depression Follow Up Specialty Diagnoses / Procedures Referred By Contac t Referred To Contact Psychiatry / ADULT PSYCHIATRY Diagnoses med check Procedures VIDEO PSYC/PSYL EST MD Angel Ramirez Lara W, DO [address] [place] [address] Referral ID Status Reason Start Date Expiration Date V isits Requested Visits Authorized [id number] Authorized 11/20/2021 11/19/2022 99 99 Reason Comments Anxiety Follow Up Specialty Diagnoses / Procedures Referred By Contac t Referred To Contact Psychiatry / ADULT PSYCHIATRY Diagnoses virtual follow up Procedures VIDEO PSYC/PSYL EST Laurel Benz, DO [address] [place] [address] Laurel Benz, DO [address] [place] [address] Referral ID Status Reason Start Date Expiration Date V isits Requested Visits Authorized [id number] Pending Review 07/14/2022 10/12/2022 99 99 Reason Comments Weight Loss dizziness Reason Comments Hematuria Noticed blood in her urine the last few hours Reason Comments Results Reason Comments Patient Update Reason Comments Medication Problem Patient Update Patient Question Reason Comments Anxiety Depression Specialty Diagnoses / [facility] To Contact Psychiatry / ADULT PSYCHIATRY Diagnoses med check Procedures VIDEO PSYC/PSYL EST Self Laurel Benz, DO [address] [place] [address] Reason Comments Follow Up Reason Comments Cough Pt reported chest co ngestion, bilateral ear decreased hearing, x5 days. Reason Comments Cough eyes red x 6 days, s een yesterday at ent Reason Comments Recheck Follow up bilateral ears; L greater than R Referral ID Status Reason Start Date Expiration Date V isits Requested Visits Authorized [id number] Pending Review 11/24/2022 11/19/2023 99 99 Reason [...] virtual follow up Procedures VIDEO PSYC/PSYL EST Laurel Benz, DO [address] [place] [address] Laurel Benz, DO [address] [place] [address] Reason Comments Follow Up R Axillary Cyst Reason Comments Depression Specialty Diagnoses / Procedures Referred By Contac t Referred To Contact Psychiatry / ADULT PSYCHIATRY Diagnoses virtual follow up Procedures VIDEO PSYC/PSYL EST Self Laurel Benz, DO [address] [place] [address] Referral ID Status Reason Start Date Expiration Date V isits Requested Visits Authorized [id number] Outside PCP 12/05/2023 11/19/2024 99 99 Reason Onset Date Comments Refill Request 03/22/2024 Reason Comments Back Pain 6 days; no injury; g oing to chiropractor Reason Comments Yearly Exam Reason Comments Appointment MRI pre cert Reason Comments Aquatherapy Referral Request Reason Comments Covid19 Concern Reason Comments Patient Question Covid19 Concern Reason Comments Medication Update Reason Comments Patient Question Reason Onset Date Comments Refill Request 07/10/2024 Reason Onset Date Comments Refill Request 08/20/2024 Reason Comments short term disability forms Reason Comments Radiology XR Specialty Diagnoses / Procedures Referred By Contac t Referred To Contact Radiology / RADIO GENERAL [facility] Diagnoses Tachycardia [R00.0] SOB (shortness of breath) [R06.02] Procedures XR CHEST Kimber Jorge, STEAM PRESSURE CHAMBER OPERATOR.PALS NURSE [address] [place] [address] Radio General [facility] [address] [place] [address] Referral ID Status Reason Start Date Expiration Date Visits Re quested Visits Authorized [id number] Closed 08/24/2020 11/22/2020 1 1 Reason Comments BP Check Reason Comments external documentation labs Reason Onset Date Comments Refill Request 02/04/2025 Reason Comments Refill Request Reason Comments Forms Reason Comments diagnosis updated Care Teams (unrecognized sec tion and content) Geological Scout Relationship Specialty Start Date End Date To Longoria DO [address] [place] [address] PCP - General Family Practice 01/14/13 Geological Scout Relationship Specialty Start Date End Date To Longoria DO [address] [facility] [place] [address] PCP - General Family Practice 01/14/13 Geological Scout Relationship Specialty Start Date End Date To Longoria DO [address] [facility] [place] [address] PCP - General Family Practice 01/14/13 Geological Scout Relationship Specialty Start Date End Date To Longoria DO [address] [facility] [place] [address] PCP - General Family Practice 01/14/13 Geological Scout Relationship Specialty Start Date End Date To Longoria DO [address] [facility] [place] [address] PCP - General Family Practice 01/14/13 Geological Scout Relationship Specialty Start Date End Date To Longoria DO [address] [facility] [place] [address] PCP - General Family Practice 01/14/13 Geological Scout Relationship Specialty Start Date End Date To Longoria, DO [address] [place] [address] PCP - General Family Practice 01/14/13 Geological Scout Relationship Specialty Start Date End Date To Longoria, DO [address] [place] [address] PCP - General Family Medicine 01/14/13 Geological Scout Relationship Specialty Start Date End Date To Longoria, DO [address] [place] [address] PCP - General Family Medicine 01/14/13 Geological Scout Relationship Specialty Start Date End Date To Longoria, DO [address] [place] [address] PCP - General Family Medicine 01/14/13 Geological Scout Relationship Specialty Start Date End Date To Longoria, DO [address] [place] [address] PCP - General Family Medicine 01/14/13 Geological Scout Relationship Specialty Start Date End Date To Longoria, DO [address] [place] [address] PCP - General Family Medicine 01/14/13 Geological Scout Relationship Specialty Start Date End Date To Longoria, DO [address] [place] [address] PCP - General Family Medicine 01/14/13 Geological Scout Relationship Specialty Start Date End Date To Longoria, DO [address] [place] [address] PCP - General Family Medicine 01/14/13 Geological Scout Relationship Specialty Start Date End Date To Longoria, DO [address] [place] [address] PCP - General Family Medicine 01/14/13 Geological Scout Relationship Specialty Start Date End Date To Longoria, DO [address] [place] [address] PCP - General Family Medicine 01/14/13 Geological Scout Relationship Specialty Start Date End Date To Longoria, DO [address] [place] [address] PCP - General Family Medicine 01/14/13 Geological Scout Relationship Specialty Start Date End Date To Longoria, DO [address] [place] [address] PCP - General Family Medicine 01/14/13 Team Status: Active Member Role Status Dates Dr. To Longoria , DO Family Provider Active Dr. To Longoria , DO Primary Care Provider Active Team Status: Inactive Member Role Status Dates Dr. To Longoria DO Primary Care Provider, Referr ing Provider Active Dr. Pedrito Brock , DO Attending Provider Active Team Status: Inactive Member Role Status Dates Dr. To Longoria DO Primary Care Provider, Referr ing Provider Active Sean Hardin PA, PA Attending Provider Active Team Status: Inactive Member Role Status Dates Dr. To Longoria DO Primary Care Provider, Attend ing Provider Active Team Status: Inactive Member Role Status Dates Dr. To Longoria DO Primary Care Provider Active Romana Zavala GATE WATCH, GATE WATCH-C Attending Provider, Referring Provi christopher Active Team Status: Inactive Member Role Status Dates Dr. To Longoria DO Primary Care Pr ovider, Attending Provider, Referring Provider Active Team Status: Inactive Member Role Status Dates Dr. To Longoria DO Primary Care Provider Active Sean Hardin PA, PA Attending Provider, Referring Prov ider Active Team Status: Inactive Member Role Status Dates Dr. To Longoria DO Primary Care Provider Active Dr. Abelino Shane MD Attending Provider, Referring Pr ovider Active Team Status: Inactive Member Role Status Dates Dr. To Longoria DO Primary Care Provider Active Dr. Pedrito Brock , DO Attending Provider, Referring Provider Active Team Status: Active Member Role Status Dates Dr. To Longoria DO Primary Care Provider Active Dr. Pedrito Brock , DO Attending Provider, Referring Provider Active Geological Scout Relationship Specialty Start Date End Date To Longoria DO [address] [place] [address] PCP - General Family Medicine 01/14/13 Geological Scout Relationship Specialty Start Date End Date To Longoria DO [address] [place] [address] PCP - General Family Medicine 01/14/13 Geological Scout Relationship Specialty Start Date End Date To Longoria DO [address] [place] [address] PCP - General Family Medicine 01/14/13 Team Status: Inactive Member Role Status Dates Dr. To Longoria DO Primary Care Provider Active Estefania Joyce MD Attending Provider, Referring Provide r Active Team Status: Active Member Role Status Dates Dr. To Longoria DO Primary Care Provider Active Estefania Joyce MD Attending Provider, Referring Provide r Active Geological Scout Relationship Specialty Start Date End Date To Longoria DO [address] [facility] [place] [address] PCP - General Family Medicine 01/14/13 Team Status: Active Member Role Status Dates Dr. To Longoria DO Primary Care Provider, Referr ing Provider Active Dr. Pedrito Brock , DO Attending Provider, Other Prov ider Active Geological Scout Relationship Specialty Start Date End Date To Longoria DO [address] [place] [address] PCP - General Family Medicine 01/14/13 Geological Scout Relationship Specialty Start Date End Date To Longoria DO [address] [place] [address] PCP - General Family Medicine 01/14/13 Geological Scout Relationship Specialty Start Date End Date To Longoria DO [address] [place] [address] PCP - General Family Medicine 01/14/13 Geological Scout Relationship Specialty Start Date End Date To Longoria DO [address] [place] [address] PCP - General Family Medicine 01/14/13 Geological Scout Relationship Specialty Start Date End Date To Longoria DO [address] [place] [address] PCP - General Family Medicine 01/14/13 Geological Scout Relationship Specialty Start Date End Date To Longoria DO [address] [place] [address] PCP - General Family Medicine 01/14/13 Team Status: Inactive Member Role Status Dates Dr. To Longoria DO Primary Care Provider, Referr ing Provider Active Jonathan López GATE WATCH, GATE WATCH-C Attending Provider Active Team Status: Inactive Member Role Status Dates Dr. To Longoria DO Primary Care Provider, Referr ing Provider Active Dr. Luis Kang MD Active Tania Vásquez PA, PA Attending Provider Active Team Status: Inactive Member Role Status Dates Dr. To Longoria DO Primary Care Provider, Referr ing Provider Active Geri Ng GATE WATCH, GATE WATCH-C Attending Provider Active Team Status: Inactive Member Role Status Dates Dr. To Longoria DO Primary Care Provider Active Geri Ng GATE WATCH, GATE WATCH-C Attending Provider, Referring Provider Active Geological Scout Relationship Specialty Start Date End Date To Longoria DO [address] [place] [address] PCP - General Family Medicine 01/14/13 Geological Scout Relationship Specialty Start Date End Date To Longoria DO [address] [place] [address] PCP - General Family Medicine 01/14/13 Team Status: Inactive Member Role Status Dates Dr. To Longoria DO Primary Care Provider, Referr ing Provider Active Alejandro KAY, PA Attending Provider Active Team Status: Active Member Role Status Dates Dr. To Longoria DO Primary Care Provider Active Dr. Pedrito Brock , DO Attending Provid er, Referring Provider, Other Provider Active Geological Scout Relationship Specialty Start Date End Date To Longoria DO [address] [place] [address] PCP - General Family Medicine 01/14/13 Geological Scout Relationship Specialty Start Date End Date To Longoria DO [address] [place] [address] PCP - General Family Medicine 01/14/13 Geological Scout Relationship Specialty Start Date End Date To Longoria DO [address] [place] [address] PCP - General Family Medicine 01/14/13 Geological Scout Relationship Specialty Start Date End Date To Longoria DO [address] [place] [address] PCP - General Family Medicine 01/14/13 Geological Scout Relationship Specialty Start Date End Date To oLngoria DO [address] [place] [address] PCP - General Family Medicine 01/14/13 Geological Scout Relationship Specialty Start Date End Date To Longoria DO [address] [place] [address] PCP - General Family Medicine 01/14/13 Geological Scout Relationship Specialty Start Date End Date To Longoria DO [address] [place] [address] PCP - General Family Medicine 01/14/13 Geological Scout Relationship Specialty Start Date End Date To Longoria DO [address] [place] [address] PCP - General Family Medicine 01/14/13 Geological Scout Relationship Specialty Start Date End Date To Longoria DO [address] [place] [address] PCP - General Family Medicine 01/14/13 Geological Scout Relationship Specialty Start Date End Date To Longoria DO [address] [place] [address] PCP - General Family Medicine 01/14/13 Geological Scout Relationship Specialty Start Date End Date To Longoria DO [address] [place] [address] PCP - General Family Medicine 01/14/13 Geological Scout Relationship Specialty Start Date End Date To Longoria DO [address] [place] [address] PCP - General Family Medicine 01/14/13 Geological Scout Relationship Specialty Start Date End Date To Longoria DO [address] [place] [address] PCP - General Family Medicine 01/14/13 Geological Scout Relationship Specialty Start Date End Date To Longoria DO [address] [facility] [place] [address] PCP - General Family Medicine 01/14/13 Geological Scout Relationship Specialty Start Date End Date To Longoria DO [address] [place] [address] PCP - General Family Medicine 01/14/13 Geological Scout Relationship Specialty Start Date End Date To Longoria DO [address] [place] [address] PCP - General Family Medicine 01/14/13 Geological Scout Relationship Specialty Start Date End Date To Longoria DO [address] [facility] [place] [address] PCP - General Family Medicine 01/14/13 Geological Scout Relationship Specialty Start Date End Date To Longoria DO [address] [place] [address] PCP - General Family Medicine 01/14/13 Geological Scout Relationship Specialty Start Date End Date To Longoria DO [address] [place] [address] PCP - General Family Medicine 01/14/13 Geological Scout Relationship Specialty Start Date End Date To Longoria DO [address] [place] [address] PCP - General Family Medicine 01/14/13 Estrella Knight APRN.PALS NURSE [address] [place] [address] Gluing Machine Offbearer Family Medicine 10/27/24 Mnadi Connelly APRN.PALS NURSE [address] [place] [address] Gluing Machine Offbearer Family Medicine 10/27/24 Team Status: Active Member Role Status Dates Dr. To Longoria DO Primary Care Provider Active Team Status: Inactive Member Role Status Dates Dr. To Longoria DO Primary Care Provider Active Start: December 12, 2024 End: December 12, 2024 Dr. To Longoria DO Referring Provider Active Start: December 12, 2024 End: December 12, 2024 Dr. Pedrito Brock DO Attending Provider Active Start: December 12, 2024 End: December 12, 2024 Team Status: Inactive Member Role Status Dates Dr. To Longoria DO Primary Care Provider Active Start: December 16, 2024 End: December 16, 2024 Dr. To Longoria DO Referring Provider Active Start: December 16, 2024 End: December 16, 2024 Geri Ng NP GATE WATCH-C Attending Provider Active Start: December 16, 2024 End: December 16, 2024 Team Status: Inactive Member Role Status Dates Dr. To Longoria DO Primary Care Provider Active Start: December 25, 2024 End: December 25, 2024 Dr. To Longoria DO Referring Provider Active Start: December 25, 2024 End: December 25, 2024 Dr. Pedrito Brock DO Attending Provider Active Start: December 25, 2024 End: December 25, 2024 Team Status: Inactive Member Role Status Dates Dr. To Longoria DO Primary Care Provider Active Start: January 02, 2025 End: January 02, 2025 Dr. Pedrito Brock DO Attending Provider Active Start: January 02, 2025 End: January 02, 2025 Dr. Pedrito Brock DO Referring Provider Active Start: January 02, 2025 End: January 02, 2025 Team Status: Inactive Member Role Status Dates Dr. To Longoria DO Primary Care Provider Active Start: January 08, 2025 End: January 08, 2025 Dr. To Longoria DO Referring Provider Active Start: January 08, 2025 End: January 08, 2025 VITO Vann Attending Provider Active Star t: January 08, 2025 End: January 08, 2025 Team Status: Inactive Member Role Status Dates Dr. To Longoria DO Primary Care Provider Active Start: February 20, 2025 End: February 20, 2025 Dr. To Longoria DO Referring Provider Active Start: February 20, 2025 End: February 20, 2025 Dr. Pedrito Brock DO Attending Provider Active Start: February 20, 2025 End: February 20, 2025 Team Status: Inactive Member Role Status Dates Dr. To Longoria DO Primary Care Provider Active Start: March 03, 2025 End: March 03, 2025 GATE WATCH. Lisa Werner Attending Provider Active Star t: March 03, 2025 End: March 03, 2025 GATE WATCH. Lisa Werner Referring Provider Active Star t: March 03, 2025 End: March 03, 2025 Geological Scout Relationship Specialty Start Date End Date To Longoria DO [address] [place] [address] PCP - [facility] 01/14/13 [facility] Mandi, STEAM PRESSURE CHAMBER OPERATOR.PALS NURSE [address] [place] [address] [facility] 10/27/24 Team Status: Inactive Member Role Status Dates Dr. To Longoria DO Primary Care Provider Active Start: March 26, 2025 End: March 26, 2025 Dr. To Longoria DO Attending Provider Active Start: March 26, 2025 End: March 26, 2025 Dr. To Longoria DO Referring Provider Active Start: March 26, 2025 End: March 26, 2025 Geological Scout Relationship Specialty Start Date End Date To Longoria DO [address] [facility] [place] [address] PCP - [facility] 01/14/13 [facility] STEAM PRESSURE CHAMBER OPERATOR.PALS NURSE [address] [facility] [place] [address] [facility] 10/27/24 Geological Scout Relationship Specialty Start Date End Date To Longoria DO [address] [facility] [place] [address] PCP - General Family Medicine 01/14/13 Mandi Connelly, STEAM PRESSURE CHAMBER OPERATOR.PALS NURSE [address] [place], [place] [address] [facility] 10/27/24 Geological Scout Relationship Specialty Start Date End Date To Longoria DO [address] [place], [place] [address] PCP - General Family Medicine 01/14/13 Estrella Knight, STEAM PRESSURE CHAMBER OPERATOR.PALS NURSE [address] [place], [place] [address] [facility] 10/27/24 02/07/25 Mandi Connelly, STEAM PRESSURE CHAMBER OPERATOR.PALS NURSE [address] [place] [address] [facility] 10/27/24 Geological Scout Relationship Specialty Start Date End Date To Longoria DO [address] [place], [place] [address] PCP - General Family Medicine 01/14/13 Mandi Connelly, STEAM PRESSURE CHAMBER OPERATOR.PALS NURSE [address] [place], [place] [address] [facility] 10/27/24 Domi Corona, STEAM PRESSURE CHAMBER OPERATOR.PALS NURSE [address] [place], [place] [address] [facility] 05/05/25 Team Status: Inactive Member Role Status Dates Dr. To Longoria DO Primary Care Provider Active Start: May 06, 2025 End: May 06, 2025 Dr. To Longoria DO Attending Provider Active Start: May 06, 2025 End: May 06, 2025 Dr. To Longoria DO Referring Provider Active Start: May 06, 2025 End: May 06, 2025 Geological Scout Relationship Specialty Start Date End Date To Longoria DO [address] [place] [address] PCP - General Family Medicine 01/14/13 Mandi Connelly, STEAM PRESSURE CHAMBER OPERATOR.PALS NURSE [address] [place] [address] Gluing Machine Offbearer [facility] 10/27/24 Domi Corona, STEAM PRESSURE CHAMBER OPERATOR.PALS NURSE [address] [place] [address] [facility] Team Status: Active Member Role/Relationship Status Dates Dr. To Longoria DO Primary Care Provider Active Team Status: Inactive Member Role/Relationship Status Dates Dr. To Longoria DO Primary Care Provider Active Start: February 20, 2025 End: February 20, 2025 Dr. To Longoria DO Referring Provider Active Start: February 20, 2025 End: February 20, 2025 Dr. Pedrito Brock DO Attending Provider Active Start: February 20, 2025 End: February 20, 2025 Team Status: Inactive Member Role/Relationship Status Dates Dr. To Longoria DO Primary Care Provider Active Start: March 03, 2025 End: March 03, 2025 GATE WATCHLuis Werner Attending Provider Active Star t: March 03, 2025 End: March 03, 2025 NP. Lisa Werner Referring Provider Active Star t: March 03, 2025 End: March 03, 2025 Team Status: Inactive Member Role/Relationship Status Dates Dr. To Longoria DO Primary Care Provider Active Start: March 26, 2025 End: March 26, 2025 Dr. To Longoria DO Attending Provider Active Start: March 26, 2025 End: March 26, 2025 Dr. To Longoria DO Referring Provider Active Start: March 26, 2025 End: March 26, 2025 Team Status: Inactive Member Role/Relationship Status Dates Dr. To Longoria DO Primary Care Provider Active Start: May 06, 2025 End: May 06, 2025 Dr. To Longoria DO Attending Provider Active Start: May 06, 2025 End: May 06, 2025 Dr. To Longoria DO Referring Provider Active Start: May 06, 2025 End: May 06, 2025 Team Status: Inactive Member Role/Relationship Status Dates Dr. To Longoria DO Primary Care Provider Active Start: May 16, 2025 End: May 16, 2025 Dr. To Longoria DO Referring Provider Active Start: May 16, 2025 End: May 16, 2025 Dr. Brianna Garrison MD Attending Provider Active Start: May 16, 2025 End: May 16, 2025 Team Status: Inactive Member Role/Relationship Status Dates Dr. To Longoria DO Primary Care Provider Active Start: March 03, 2025 End: March 03, 2025 GATE WATCH. Lisa Werner Attending Provider Active Star t: March 03, 2025 End: March 03, 2025 GATE WATCHLuis Werner Referring Provider Active Star t: March 03, 2025 End: March 03, 2025 Team Status: Inactive Member Role/Relationship Status Dates Dr. To Longoria DO Primary Care Provider Active Start: March 26, 2025 End: March 26, 2025 Dr. To Longoria DO Attending Provider Active Start: March 26, 2025 End: March 26, 2025 Dr. To Longoria DO Referring Provider Active Start: March 26, 2025 End: March 26, 2025 Team Status: Inactive Member Role/Relationship Status Dates Dr. To Longoria DO Primary Care Provider Active Start: May 06, 2025 End: May 06, 2025 Dr. oT Longoria DO Attending Provider Active Start: May 06, 2025 End: May 06, 2025 Dr. To Longoria DO Referring Provider Active Start: May 06, 2025 End: May 06, 2025 Team Status: Inactive Member Role/Relationship Status Dates Dr. To Longoria DO Primary Care Provider Active Start: May 16, 2025 End: May 16, 2025 Dr. To Longoria DO Referring Provider Active Start: May 16, 2025 End: May 16, 2025 Dr. Brianna Garrison MD Attending Provider Active Start: May 16, 2025 End: May 16, 2025 Team Status: Inactive Member Role/Relationship Status Dates Dr. To Longoria DO Primary Care Provider Active Start: June 25, 2025 End: June 25, 2025 Dr. To Longoria DO Referring Provider Active Start: June 25, 2025 End: June 25, 2025 Dr. Pedrito Brock DO Attending Provider Active Start: June 25, 2025 End: June 25, 2025 Team Status: Inactive Member Role/Relationship Status Dates Dr. To Longoria DO Primary Care Provider Active Start: March 26, 2025 End: March 26, 2025 Dr. To Longoria DO Attending Provider Active Start: March 26, 2025 End: March 26, 2025 Dr. To Longoria DO Referring Provider Active Start: March 26, 2025 End: March 26, 2025 Team Status: Inactive Member Role/Relationship Status Dates Dr. To Longoria DO Primary Care Provider Active Start: May 06, 2025 End: May 06, 2025 Dr. To Longoria DO Attending Provider Active Start: May 06, 2025 End: May 06, 2025 Dr. To Longoria DO Referring Provider Active Start: May 06, 2025 End: May 06, 2025 Team Status: Inactive Member Role/Relationship Status Dates Dr. To Longoria DO Primary Care Provider Active Start: May 16, 2025 End: May 16, 2025 Dr. To Longoria DO Referring Provider Active Start: May 16, 2025 End: May 16, 2025 Dr. Brianna Garrison MD Attending Provider Active Start: May 16, 2025 End: May 16, 2025 Team Status: Inactive Member Role/Relationship Status Dates Dr. To Longoria DO Primary Care Provider Active Start: June 25, 2025 End: June 25, 2025 Dr. To Longoria DO Referring Provider Active Start: June 25, 2025 End: June 25, 2025 Dr. Pedrito Brock DO Attending Provider Active Start: June 25, 2025 End: June 25, 2025 Team Status: Inactive Member Role/Relationship Status Dates Dr. To Longoria DO Primary Care Provider Active Start: July 06, 2025 End: July 06, 2025 Dr. To Longoria DO Referring Provider Active Start: July 06, 2025 End: July 06, 2025 Jonathan López GATE WATCH, GATE WATCH-C Attending Provider Active S tart: July 06, 2025 End: July 06, 2025 Goals (unrecognized section and content) Goals may be documented in a n alternate sectionGoals may be documented in an alternate sectionGoals may be documented in an alternate sectionGoals may be documented in an alternate sectionGoals may be documented in an alternate sectionGoals may be documented in an alternate sectionGoals may be documented in an alternate sectionGoals may be documented in an alternate sectionGoals may be documented in an alternate sectionGoals may be documented in an alternate section FOR RECORDS PERTAINING TO PATIENTS WHO ARE [...] BE BASED ON THE PRIMARY CLINICAL RECORDS. [employer] provides no warranty or guarantee of the accuracy or completeness of information in this document.
[2025-07-22 12:09] LABS: Neutrophil-Segmented 73 % (47-70); Total Cells Counted 100 (MANUAL DIFF)
[2025-07-22 12:20] LABS: Vitamin B12 807 pg/mL (180-914); Vitamin D,25 Hydroxy 58.3 ng/mL (30-100)
[2025-07-22 12:41] LABS: Iron Binding Capacity,Total 287 ug/dL (250-450)
[2025-07-22 12:48] LABS: CRP < 3.00 mg/L (0.0-3.0); Iron 128 ug/dL (50-170); Iron Binding Capacity,Unsat 159 ug/dL (228-428); Magnesium 2.1 mg/dL (1.5-2.2)
[2025-07-23 14:08] LABS: ANTINUCLEAR ANTIBODIES DIRECT Negative (Negative)
== END | disposition home or self-care (01) ==
LOC: LAB 07:14
PROVIDERS: PCP Student in an Organized Health Care Education/Training Program; Referring Provider Student in an Organized Health Care Education/Training Program; Visit Provider Student in an Organized Health Care Education/Training Program
DX: K50.119 Crohn's disease of large intestine with unspecified complications (principal); R53.83 Other fatigue; L29.9 Pruritus, unspecified; R42 Dizziness and giddiness
CPT/HCPCS: 36415; 82306; 82607; 83540; 83550; 83735; 84100; 84439; 84443; 85007; 86038; 86140

== ENCOUNTER → 2025-07-23 | Outpatient (CLI) | payer OTHER, SELFPAY ==
[2025-07-25 15:08] LABS: Calprotectin, Stool 143 ug/g (0-120)
== END | disposition home or self-care (01) ==
LOC: LAB 08:00 → LABSPEC 08:02
PROVIDERS: PCP Student in an Organized Health Care Education/Training Program; Referring Provider Student in an Organized Health Care Education/Training Program; Visit Provider Student in an Organized Health Care Education/Training Program
DX: K50.119 Crohn's disease of large intestine with unspecified complications (principal)
CPT/HCPCS: 83993

== ENCOUNTER 2025-08-25 08:02 | Day surgery (SDC) | payer OTHER, SELFPAY ==
--- NOTE | 2025-08-18 14:51 | PAT.ANESEVAL ---
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 When Was Last Pacemaker Check QUESTION #4 FULL TEXT: You/Your Family Experience fever (hyperthermia) with Anesthesia Last Oral Intake Last Oral intake: Last Oral Intake NPO since Meds taken in AM with sips of water? Meds patient instructed to take am of surgery PONV PONV - director of customer service: PONV - director of customer service Female Yes 08/18/25 14:21 HX of Motion Sickness No 08/18/25 14:21 HX of N/V After Surgery No 08/18/25 14:21 Non-Smoker Yes 08/18/25 14:21 Duration of Surgery greater No 08/18/25 14:21 than 60 minutes Number of Risk Factors 2 08/18/25 14:21 PONV Score Moderate Risk 08/18/25 14:21 Height & Weight Height & Weight: Anesthesia: Height & Weight Height 5 ft 07/06/25 10:10 Respiratory Assessment Respiratory Assessment - director of customer service: Respiratory Tract Infection Hx - director of customer service Hx Respiratory Tract Infection No 08/18/25 14:21 STOP Sleep Apnea STOP Sleep Apnea - director of customer service: STOP Sleep Apnea - director of customer service Hx Hypertension No 08/18/25 14:21 Hx Sleep Apnea Yes 08/18/25 14:21 CPAP Yes: NONCOMPLIANT 08/18/25 14:21 BIPAP No 08/18/25 14:21 Do you snore loudly (louder than talking or can be heard Do you often feel tired/ fatigued/ sleepy during daytime? Has anyone observed you stop breathing during sleep? STOP Results Positive 08/18/25 14:21 QUESTION #5 FULL TEXT : Do you snore loudly (louder than talking or can be heard through closed doors)? 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 Specify any problems Hx of Preganancy in last 3 No 08/18/25 14:21 Months Nurse Filling Out Transfusion JZOLLINGE 08/18/25 14:21 & Questions: Date: 08/18/25 08/18/25 14:21 Time: 14:22 08/18/25 14:21 Patient unable to answer at this time (ie. confused, unrespo /Reproduction History /Reproductive History - director of customer service: /Reproductive Hx- director of customer service Hx Now No 08/18/25 14:21 Gestational Age (in weeks): EDC: Hx Hx Para Hx Section SAB No 08/18/25 14:21 PFSH Medical History Laceration of right thumb History of Crohn's disease Difficulty swallowing Depression Anxiety Easy bruising Gastric reflux Low serum IgE Normal Holter exam Postoperative wound seroma Abdominal pain Ventral incisional hernia without obstruction or gangrene Alcohol use History of renal disease Anemia Back pain Migraine headache Injury of head and neck History of hiatal hernia History of IBS Non-smoker CPAP (continuous positive airway pressure) dependence Chronic cough Shortness of breath on exertion Hx of echocardiogram History of stress test Cardiology follow-up encounter History of irregular heartbeat Ventral incisional hernia without obstruction or gangrene Diarrhea Constipation Sleep apnea History of severe acute respiratory syndrome coronavirus 2 (SARS-CoV-2) disease Depression with anxiety neck and back pain Knee pain Home Medications ?Medication ?Instructions ?Recorded ?Last Taken ?Type multivitamin with minerals 1 ea PO DAILY 09/02/19 09/20/23 History cetirizine 10 mg capsule (Zyrtec) 10 mg PO DAILY 09/30/20 11/14/23 History albuterol sulfate 90 mcg/actuation 1 inh inhalation Q6H PRN sob 05/10/21 11/07/22 History aerosol inhaler acetaminophen 325 mg capsule 325 mg PO ONCE PRN Pain 07/13/21 11/06/22 History (Tylenol) ibuprofen 400 mg tablet 400 mg PO Q8H PRN Pain 08/09/21 11/06/22 History esomeprazole magnesium 40 mg 40 mg PO BID 09/22/21 11/14/23 History capsule,delayed release (Nexium) cholecalciferol (vitamin D3) 25 25 mcg PO DAILY 03/23/22 09/20/23 History mcg (1,000 unit) capsule mometasone 50 mcg/actuation nasal 2 spray intranasal DAILY PRN 06/22/22 11/06/22 History spray (Nasonex) ALLERGIES clonazepam 0.5 mg tablet 0.5 mg PO PRN PRN Anxiety 11/04/22 11/06/22 History bupropion HCl 300 mg 24 hr tablet, 400 mg PO DAILY 12/28/23 Unknown History extended release cyclobenzaprine 5 mg tablet 5 mg PO TID PRN 06/11/24 Unknown History vilazodone 40 mg tablet 40 mg PO QDAY 06/11/24 Unknown History celecoxib 100 mg capsule (Celebrex) 100 mg PO .QD 10/31/24 Unknown History estradiol 0.075 mg/24 hr 1 patch transdermal 2XW #8 ea 12/16/24 Unknown Rx semiweekly transdermal patch (Vivelle-Dot) estradiol 10 mcg vaginal tablet 10 mcg vaginal DAILY 2 weeks #20 05/16/25 Unknown Rx (Yuvafem) tabs tirzepatide (weight loss) 2.5 2.5 mg subcut QWEEK Weight loss 05/16/25 Unknown History mg/0.5 mL subcutaneous pen injector (Zepbound) azathioprine 50 mg tablet See Rx Instructions .Route 08/04/25 Unknown Rx .COMPLEX #60 TABLETS magnesium hydroxide 600 mg 600 mg PO .QD 08/18/25 Unknown History chewable tablet (Dulcolax (magnesium hydroxide)) Allergy/AdvReac Type Severity Reaction Status Date / Time cephalexin monohydrate (From Allergy Rash Verified 08/18/25 14:21 Keflex) clarithromycin (From Biaxin) Allergy Rash Verified 08/18/25 14:21 metronidazole (From Flagyl) Allergy Rash Verified 08/18/25 14:21 minocycline Allergy Rash Verified 08/18/25 14:21 Penicillins Allergy VISHNU Verified 08/18/25 14:21 PANDA'S citalopram hydrobromide AdvReac Nausea/Vom/ Verified 08/18/25 14:21 (From Celexa) Diarrhea Family History Grandmother Atrial fibrillation Hypertension Mother Hypertension Mitral valve prolapse Grandfather Cancer Esophageal cancer Surgical History History of esophagogastroduodenoscopy (EGD) History of placement of ear tubes S/P right hemicolectomy Hx of colonoscopy History of ventral hernia repair History of LAVH S/P laparoscopic assisted vaginal hysterectomy (LAVH) Hx of colonoscopy History of colectomy H/O prior ablation treatment History of dilatation and curettage History of eye surgery History of wisdom tooth extraction History of breast biopsy history cysto with stent insertion Hx of tubal ligation History of Social History adopted: No household members: spouse and children housing: house number of children: 2 current occupational status: employed 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 Prior Cardiac Testing/Procedures Prior Cardiac Testing/Procedures: Echocardiogram (EF 55%) Addt'l Information Additional Findings: >4 METs Recommendation Anesthesia Recommendation Anesthesia recommendation: OPTIMIZED for anesthesia
[2025-08-25] VITALS (10 sets, daily range): BP systolic 105–138; BP diastolic 63–84; PULSE 63–89; RESP 16–20; TEMP 36.1–37; O2SAT 95–100; BMI 25.4
[2025-08-25] MEDS: Lactated Ringers 1,000 ML 15 ML IV (08:34)
--- NOTE | 2025-08-25 08:46 | PRE.ANES_ITS ---
ASA Classification* ASA Classification ASA Classification: 2 Assessment & Plan Anesthesia* Anesthesia Assessment Anesthesia Assessment: Discussed sedation and/or anesthesia options, risks, benefits, and alternatives with patient/parents/legal guardian/POA. Questions invited. The patient/parents/legal guardian/POA seems to understand and agrees to proceed with anesthesia plan. Reviewed the physical assessment, medical history, allergy history and patient home medications list prior to surgery/procedure/anesthetic and documented any changes. Performed airway and anesthesia risk assessments. Anesthesia Type Anesthesia Type: MAC History Source History Obtained from:: Patient and Chart Anesthesia Focused Assessment* Temperature: 97.4 F Pulse Rate: 84 Blood Pressure: 122/65 Respiratory Rate: 16 Pulse Ox: 99 Oxygen Delivery Method: Room Air Airway Assessment Mouth opens: >3 cm Mallampati Score: III Teeth Condition: Intact Neck Range of motion (ROM): Full ROM Labs Anesthesia Preop lab: CBC WBC, (4.4-11.0) 4.2 K/mm3 L 07/22/25, 07:19 RBC, (4.2-5.4) 3.69 M/mm3 L 07/22/25, 07:19 Hgb, (12.0-15.0) 12.4 g/dL 07/22/25, 07:19 Hct, (37-47) 36.3 % L 07/22/25, 07:19 Plt Count, (150-450) 241 K/mm3 07/22/25, 07:19 CHEMISTRY Potassium, (3.3-5.1) 3.9 mmol/L 07/22/25, 07:19 Sodium, (133-145) 138 mmol/L 07/22/25, 07:19 Magnesium, (1.5-2.2) 2.1 mg/dL 07/22/25, 07:22 Phosphorus, (2.7-4.5) 2.9 mg/dL 07/22/25, 07:22 BUN, (4-19) 19 mg/dL 07/22/25, 07:19 Creatinine, (0.70-1.20) 0.69 mg/dL L 07/22/25, 07:19 Glucose, (70-99) 78 mg/dL 07/22/25, 07:19 POC Glucose, (70-110) 89 mg/dL 06/28/21, 06:04 TSH, (0.300-4.200) 1.180 uIU/mL 07/22/25, 07:22 COAG Urine Test Negative Negative 05/18/21, 09:36 Pre-Assessment Diagnosis/Proposed Procedure Planned Operative Procedure(s): (L) LUMBAR TRANSFORAMINAL EPIDURAL STEROID INJECTION L4 L5 S1 UNDER FLUOROSCOPY Anesthesia History 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 When Was Last Pacemaker Check QUESTION #4 FULL TEXT: You/Your Family Experience fever (hyperthermia) with Anesthesia Last Oral Intake Last Oral intake: Last Oral Intake NPO since 20:00 08/25/25 08:27 Meds taken in AM with sips of No 08/25/25 08:27 water? Meds patient instructed to take am of surgery PONV PONV - fast food team member: PONV - fast food team member Female Yes 08/18/25 14:21 HX of Motion Sickness No 08/18/25 14:21 HX of N/V After Surgery No 08/18/25 14:21 Non-Smoker Yes 08/18/25 14:21 Duration of Surgery greater No 08/18/25 14:21 than 60 minutes Number of Risk Factors 2 08/18/25 14:21 PONV Score Moderate Risk 08/18/25 14:21 Height & Weight Height & Weight: Anesthesia: Height & Weight Height 5 ft 08/25/25 08:27 Weight: 59 kg 08/25/25 08:27 Body Mass Index (BMI) 25.4 08/25/25 08:27 Respiratory Assessment Respiratory Assessment - fast food team member: Respiratory Tract Infection Hx - fast food team member Hx Respiratory Tract Infection No 08/18/25 14:21 STOP Sleep Apnea STOP Sleep Apnea - fast food team member: STOP Sleep Apnea - fast food team member Hx Hypertension No 08/18/25 14:21 Hx Sleep Apnea Yes 08/18/25 14:21 CPAP Yes: NONCOMPLIANT 08/18/25 14:21 BIPAP No 08/18/25 14:21 Do you snore loudly (louder than talking or can be heard Do you often feel tired/ fatigued/ sleepy during daytime? Has anyone observed you stop breathing during sleep? STOP Results Positive 08/18/25 14:21 QUESTION #5 FULL TEXT : Do you snore loudly (louder than talking or can be heard through closed doors)? 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 Specify any problems Hx of Preganancy in last 3 No 08/18/25 14:21 Months Nurse Filling Out Transfusion JZOLLINGE 08/18/25 14:21 & Questions: Date: 08/18/25 08/18/25 14:21 Time: 14:22 08/18/25 14:21 Patient unable to answer at this time (ie. confused, unrespo /Reproduction History /Reproductive History - fast food team member: /Reproductive Hx- fast food team member Hx Now No 08/18/25 14:21 Gestational Age (in weeks): EDC: Hx Hx Para Hx Section SAB No 08/18/25 14:21 Active Medications Active Medications: Current Medications Generic Name Dose Route Start Last Admin Trade Name Freq PRN Reason Stop Dose Admin Lactated Ringer's 1,000 mls @ 15 mls/hr 08/25/25 08:30 08/25/25 08:34 IV 15 mls/hr .Q48H BRIDGET Administration PFSH Medical History Laceration of right thumb History of Crohn's disease Difficulty swallowing Depression Anxiety Easy bruising Gastric reflux Low serum IgE Normal Holter exam Postoperative wound seroma Abdominal pain Ventral incisional hernia without obstruction or gangrene Alcohol use History of renal disease Anemia Back pain Migraine headache Injury of head and neck History of hiatal hernia History of IBS Non-smoker CPAP (continuous positive airway pressure) dependence Chronic cough Shortness of breath on exertion Hx of echocardiogram History of stress test Cardiology follow-up encounter History of irregular heartbeat Ventral incisional hernia without obstruction or gangrene Diarrhea Constipation Sleep apnea History of severe acute respiratory syndrome coronavirus 2 (SARS-CoV-2) disease Depression with anxiety neck and back pain Knee pain Home Medications ?Medication ?Instructions ?Recorded ?Last Taken ?Type multivitamin with minerals 1 ea PO DAILY 09/02/1904/13 History cetirizine 10 mg capsule (Zyrtec) 10 mg PO DAILY 09/3008/24/25 History albuterol sulfate 90 mcg/actuation 1 inh inhalation Q6 H PRN sob 05/10/21 08/24/25 History aerosol inhaler acetaminophen 325 mg capsule 325 mg PO ONCE PRN Pain 0 07/13/21 08/24/25 History (Tylenol) ibuprofen 400 mg tablet 400 mg PO Q8H PRN Pain 08/0908/24/25 History esomeprazole magnesium 40 mg 40 mg PO BID 09/22/2104/13 History capsule,delayed release (Nexium) cholecalciferol (vitamin D3) 25 25 mcg PO DAILY 08/24/25 History mcg (1,000 unit) capsule mometasone 50 mcg/actuation nasal 2 spray intranasal D AILY PRN 06/22/22 08/24/25 History spray (Nasonex) ALLERGIES clonazepam 0.5 mg tablet 0.5 mg PO PRN PRN Anxiety 08/24/25 History bupropion HCl 300 mg 24 hr tablet, 400 mg PO DAILY 07/1308/24/25 History extended release cyclobenzaprine 5 mg tablet 5 mg PO TID PRN 06/11/24 1 History vilazodone 40 mg tablet 40 mg PO QDAY 06/11/24 Unkno wn History celecoxib 100 mg capsule (Celebrex) 100 mg PO .QD 10/2008/24/25 History estradiol 0.075 mg/24 hr 1 patch transdermal 2XW #8 e a 12/16/24 08/24/25 Rx semiweekly transdermal patch (Vivelle-Dot) estradiol 10 mcg vaginal tablet 10 mcg vaginal DAILY 2 weeks #20 05/16/25 08/24/25 Rx (Yuvafem) tabs tirzepatide (weight loss) 2.5 2.5 mg subcut QWEEK Weig ht loss 05/16/25 08/15/25 History mg/0.5 mL subcutaneous pen injector (Zepbound) azathioprine 50 mg tablet See Rx Instructions .Route 0 08/04/25 08/24/25 Rx .COMPLEX #60 TABLETS magnesium hydroxide 600 mg 600 mg PO .QD 08/18/2504/13 History chewable tablet (Dulcolax (magnesium hydroxide)) Allergy/AdvReac Type Severity Reaction Status Date / Time cephalexin monohydrate (From Allergy Rash Verified 08/18/25 14:21 Keflex) clarithromycin (From Biaxin) Allergy Rash Verified 08/18/25 14:21 metronidazole (From Flagyl) Allergy Rash Verified 08/18/25 14:21 minocycline Allergy Rash Verified 08/18/25 14:21 Penicillins Allergy VISHNU Verified 08/18/25 14:21 PANDA'S citalopram hydrobromide AdvReac Nausea/Vom/ Verified 08/18/25 14:21 (From Celexa) Diarrhea Family History Grandmother Atrial fibrillation Hypertension Mother Hypertension Mitral valve prolapse Grandfather Cancer Esophageal cancer Surgical History History of esophagogastroduodenoscopy (EGD) History of placement of ear tubes S/P right hemicolectomy Hx of colonoscopy History of ventral hernia repair History of LAVH S/P laparoscopic assisted vaginal hysterectomy (LAVH) Hx of colonoscopy History of colectomy H/O prior ablation treatment History of dilatation and curettage History of eye surgery History of wisdom tooth extraction History of breast biopsy history cysto with stent insertion Hx of tubal ligation History of Social History adopted: No household members: spouse and children housing: house number of children: 2 current occupational status: employed 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 occupational exposures/hazards: Yes pets and animals: Yes leisure activities: exercise and reading Smoking Status: Never smoker alcohol intake: current alcohol intake frequency: a few times a month substance use type: does not use caffeine: Yes Type: other Number of servings: 1 what type of physical activity do you participate in: walking and bicycling frequency: 3-4 times per week seatbelt use: always do you feel safe at home: Yes additional social history: Oyyybpl-[employer]um[employer]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
--- NOTE | 2025-08-25 09:10 | RAD_ITS ---
PROCEDURE: LUMBAR SPINE 2 OR 3 VIEWS 08/25/2025 REASON FOR EXAM: LT EPIDURAL STEROID INJECTION L4 L5 S1 TECHNIQUE: Procedure Code: RADSPLL Modality: DX Procedure: LUMBAR SPINE 2 OR 3 VIEWS FINDINGS: Intraoperative fluoroscopy was performed. 16.7 seconds of fluoroscopic time. 3.37 mGy. 4 images. See procedure report for full details. RAD/Lumbar Spine 2 or 3 Views IMPRESSION: As above. Reading Location: [id number]
[2025-08-25] MEDS: Lidocaine 1% (5 ml sdv) 5 ML Vial (09:22)
--- NOTE | 2025-08-25 09:28 | PCM.POST.ANE ---
Anesthesia: Postop Eval I Current Vital Signs Temperature: 98.6 F Pulse Rate: 89 Blood Pressure: 138/84 Respiratory Rate: 20 Pulse Ox: 95 Assessment Airway patent: Yes Spontaneous unlabored respirations: Yes nausea: No Vomiting: No Anesthesia Complication: No Fluid Hydration Crystalloid volume administer (ml): 200 Total IV fluid infused: 200 Progress Note Anesthesia document: Postop Eval 1 completed: Yes
--- NOTE | 2025-08-25 09:47 | PCM.OPRPT ---
Operative Report (Standard) Operative Information Date of Procedure: 08/25/25 Pre-Operative Diagnosis: Lumbosacral radiculopathy, lumbosacral spinal stenosis, lumbosacral degenerative disc disease Post-Operative Diagnosis: Lumbosacral radiculopathy, lumbosacral spinal stenosis, lumbosacral degenerative disc disease Surgery/Procedure Performed: Left-sided lumbar transforaminal epidural steroid injection L4-5, L5-S1 under fluoroscopic guidance photocopying equipment repairer: No Type of Anesthesia: Local MAC RN Documented Start/Stop Times: Operation Date: 08/25/25 10:10 Case Time Into Pre-Op 08/25/25 08:25 Anesthesia Start 08/25/25 09:18 Into Room 08/25/25 09:18 Procedure Start 08/25/25 09:22 Procedure End 08/25/25 09:26 Anesthesia End 08/25/25 09:30 Out of Room 08/25/25 09:30 Procedure Start Time: 09:48 Procedure Stop Time: 09:48 Select all DRAINS/GRAFTS/IMPLANTS that apply: None Estimated Blood Loss: 1 Specimen collected: No Description of surgery: PROCEDURE PERFORMED: Left-sided lumbar transforaminal epidural steroid injection, L4-5 and L5-S1. ANESTHESIA: MAC BLOOD LOSS: Minimal COMPLICATIONS: None DESCRIPTION OF PROCEDURE: History and physical of today was reviewed. Risks and benefits of the procedure were explained. The patient understood and agreed to proceed. Informed consent was obtained. IV inserted per routine protocol. The patient was taken to the operating room and placed in the prone position with a pillow positioned underneath the abdomen. The left side of the lower back was prepped and draped in a sterile fashion using iodine x3. Under fluoroscopy guidance on oblique view, the L4 through S1 vertebral bodies were visualized. The skin and subcutaneous tissue was anesthetized with approximately 5 mL of 1% lidocaine using a 25-gauge regular needle. Under direct visualization with fluoroscopy at approximately 35-degree angle, starting on the left L4, ending on the left L5, using a 22-gauge 5-inch spinal needle, the needle was advanced via the skin. The tip of the needle was maneuvered and directed towards the inferior and medial gutter of the transverse process at the superiormost aspect of the neural foramen. Once the tip of the needle was at the vicinity of the foramen, after negative aspiration for blood or CSF, a total of 1 mL of contrast was injected in divided doses between both levels to confirm correct placement of the needle as well as medial spread. The confirmation was obtained on AP as well as lateral view. After repeated negative aspiration and confirmation on AP as well as lateral view, a total of 6 mL of preservative-free 0.25% Marcaine with 80 mg of Depo-Medrol was injected in divided doses between both levels. The needles were then removed intact. The patient experienced no sign or symptoms of intrathecal or intravascular injection. The patient experienced no paresthesia. The procedure was completed without any apparent difficulty or any complications. The patient appeared to tolerate it well. Assessment and plan: This is a 44-year-old female with lumbosacral radiculopathy, lumbosacral degenerative disc disease, lumbosacral spinal stenosis, status post left-sided lumbar transforaminal epidural steroid injection L4-5, L5-S1 under fluoroscopic guidance, patient will continue her current medications, patient will follow-up in approximately 2 weeks for reevaluation. Surgical Findings: 0 Complications Complications: No Admit VTE Documentation VTE Present on Admission: No VTE Mechan Device Prophylaxis: None VTE Pharm Prophylaxis ordered?: No
--- NOTE | 2025-08-25 12:05 | POSTOPAN2_ITS ---
Anesthesia Postop Eval I Sum Postop Eval Completion status Anesthesia document: Postop Eval 1 completed: Yes Anesthesia Postop Eval I Summary Anesthesia Postop Eval I Summary: Anesthesia Postop Eval I: Assessment Summary Airway patent Yes 08/25/25 09:28 [email or web address] Spontaneous unlabored Yes 08/25/25 09:28 [email or web address] respirations Mental status nausea No 08/25/25 09:28 [email or web address] Vomiting No 08/25/25 09:28 [email or web address] Anesthesia Postop Eval I: Fluid Summary Crystalloid volume administer 200 08/25/25 09:28 [email or web address] (ml) Colloids volume administered ( ml) Blood Product volume administered (ml) Total IV fluid infused 200 08/25/25 09:28 [email or web address] Anesthesia Postop Eval I: Summary Notes Anesthesia Complication No 08/25/25 09:28 [email or web address] Anesthesia Complication Comment: Post-operative progress note Anesthesia: Postop Eval II Evaluation Mental status: Awake and Calm Pain Level: 1 nausea: No Vomiting: No Complications Anesthesia Complication: No
--- NOTE | 2025-08-25 12:05 | PCM.POSTANE2 ---
Anesthesia Postop Eval I Sum Postop Eval Completion status Anesthesia document: Postop Eval 1 completed: Yes Anesthesia Postop Eval I Summary Anesthesia Postop Eval I Summary: Anesthesia Postop Eval I: Assessment Summary Airway patent Yes 08/25/25 09:28 [email or web address] Spontaneous unlabored Yes 08/25/25 09:28 [email or web address] respirations Mental status nausea No 08/25/25 09:28 [email or web address] Vomiting No 08/25/25 09:28 [email or web address] Anesthesia Postop Eval I: Fluid Summary Crystalloid volume administer 200 08/25/25 09:28 [email or web address] (ml) Colloids volume administered ( ml) Blood Product volume administered (ml) Total IV fluid infused 200 08/25/25 09:28 [email or web address] Anesthesia Postop Eval I: Summary Notes Anesthesia Complication No 08/25/25 09:28 [email or web address] Anesthesia Complication Comment: Post-operative progress note Anesthesia: Postop Eval II Evaluation Mental status: Awake and Calm Pain Level: 1 nausea: No Vomiting: No Complications Anesthesia Complication: No
== END 2025-08-25 10:29 | disposition home or self-care (01) ==
LOC: SDC 08:02 → AC 08:03
PROVIDERS: PCP Student in an Organized Health Care Education/Training Program; Referring Provider Anesthesiology Pain Medicine; Visit Provider Anesthesiology Pain Medicine
PROC: 3E0S3BZ Introduction of Anesthetic Agent into Epidural Space, Percutaneous Approach (ICD-10-PCS; CPT 64484; principal; 2025-08-25 10:05)
DX: M51.17 Intervertebral disc disorders with radiculopathy, lumbosacral region (principal); M48.07 Spinal stenosis, lumbosacral region
CPT/HCPCS: 64484; 01992; 64483; 72100; J2405